=== PATIENT | male | born 1950 | race Caucasian/White ===

== ENCOUNTER → 2016-10-17 | Day surgery (SDC) | payer OTHER ==
[2016-10-10 14:48] VITALS: Ht 175.3 cm; Wt 72.7 kg
[~2016-10-17] VITALS: Ht 175.3 cm; Wt 72.7 kg
[~2016-10-17] MED LIST: ACET-1311 PO; ADVIN25/60 INH; ALBUAER19 INH; ALLO100T PO; ALLO1TAB51 PO; AMLO5TAB2 PO; ASPEC81 PO; ATOR-26 PO; AVD5 PO; AZEL0.15 NAE; BENZ1CAP90 PO; BUPR150T7 PO; CARV6.252 PO; CYCL10TA6 PO; EZET10TA63 PO; FAMO20TA11 PO; FEBU40TA PO; FURO-85 PO; GABA-112 PO; HYDR-4383 PO; HYDR25CA PO; LIDOCAINE HCL 2% 2 ML VIAL (20MG/ML) ONE; LISI-461 PO; NIAC1TAB59 PO; NTRGSL/4 UT; PANT40TA PO; POTA20TA16 PO; PRAS1TAB4 PO; PREG1CAP28 PO; PROPOFOL IV EMULSION 10 MG/ML 20 ML VIAL IV ONE; ROPI0.5T15 PO; ROSU40TA PO; SODIUM CHLORIDE 0.9% 500ML 500 ML IV ONE; SPIR25TA PO; SPRIN/30 INH; TEMA-79 PO; TSSP PO; VNTHFA/IN INH
--- NOTE | 2016-10-17 08:58 | Endo History and Physical ---
History & Physical Date of Service: Oct 17, 2016. 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 No dysphagia, no weight loss. Past Medical History Diabetes, Arthritis, Asthma, Heart Disease, Hypertension, COPD, CVA/TIA, Depression, [place] Past Surgical History Hx Cardiac Surgery: Yes (MULTIPLE HEART CATHS, STENTS X3-4) Hx Internal Defibrillator: No Hx Pacemaker: No Hx Abdominal Surgery: Yes (APPY) Hx of Implantable Prosthesis: No Hx Post-Op Nausea and Vomiting: No Hx Cancer Surgery: No Hx Thoracic Surgery: No Hx Orthopedic: Yes (LOWER BACK SURGERY X2 WITH HARDWARE) Hx Urinary Tract Surgery: No Family History Colon CA Social History Smoking Status: Current Every Day Smoker Hx Substance Use: Yes (SEE MED REC) Hx Alcohol Use: No Allergies Coded Allergies: Codeine (Verified Allergy, Unknown, "SKIN STARTS FALLING OFF", 10/17/16) Current Medications Reported Home Medications Medications Dose Route/Sig Max Daily Dose Days Date Category Flexeril (Cyclobenzaprine Hcl) 10 Mg Tab 10 Mg PO TID PRN 10/10/16 Reported Vistaril (Hydroxyzine Pamoate) 25 Mg Cap 0.5-1 Tab PO TID PRN 10/10/16 Reported Spiriva Handihaler (Tiotropium [place]) 30 Puff/540 Mcg Aerp 1 Cap INH DAILY PRN 10/10/16 Reported Advair Diskus 250/50 60 Dose (Fluticasone Prop/Salmeterol) 1 Ea Aerp 1 Puff INH BID PRN 10/10/16 Reported Crestor (Rosuvastatin Calcium) 40 Mg Tab 40 Mg PO QAM 10/10/16 Reported Klor-Con (Potassium Chloride) 20 Meq Tabcr 20 Meq PO QPM 10/10/16 Reported Lipitor (Atorvastatin Calcium) 80 Mg Tab 80 Mg PO QAM 10/10/16 Reported Tylenol (Acetaminophen) 325 Mg Tab 650 Mg PO Q4H PRN 09/22/15 Reported [place] 10/325 Tab (Acetaminophen/Hydrocodone Bitart) 1 Tab Tab 1 Tab PO Q6H PRN 09/22/15 Reported Effient (Prasugrel Hcl) 5 Mg Tab 10 Mg PO QAM 09/22/15 Reported Protonix (Pantoprazole Sodium) 40 Mg Tab 40 Mg PO QPM 09/22/15 Reported Pepcid (Famotidine) 20 Mg Tab 20 Mg PO BID 09/22/15 Reported Restoril (Temazepam) 15 Mg Cap 30 Mg PO HS PRN 09/22/15 Reported Coreg (Carvedilol) 6.25 Mg Tab 6.25 Mg PO BID 09/22/15 Reported Ventolin Inhaler (Albuterol) Aers 1 Puff INH QID PRN 09/22/15 Reported Requip (Ropinirole HCl) 0.5 Mg Tab 0.5 Mg PO BIDM 09/16/15 Reported Norvasc (Amlodipine Besylate) 5 Mg Tab 5 Mg PO QPM 09/16/15 Reported Zestril (Lisinopril) 10 Mg Tab 10 Mg PO QPM 09/16/15 Reported Allopurinol 100 Mg Tab 100 Mg PO BID 05/09/15 Reported Wellbutrin Sr (Bupropion Hcl) 150 Mg Tab 150 Mg PO BID 05/09/15 Reported Aspirin EC Low Dose (Aspirin) 81 Mg Ectab 81 Mg PO QAM 05/09/15 Reported Astepro (Azelastine Hcl) 0.15 % Spr 2 [place] SILVINO BID 02/01/15 Reported Uloric (Febuxostat) 40 Mg Tab 40 Mg PO QAM 05/26/14 Reported Lyrica (Pregabalin) 75 Mg Cap 150 Mg PO QPM 05/26/14 Reported Lyrica (Pregabalin) 75 Mg Cap 75 Mg PO QAM 05/26/14 Reported Lasix (Furosemide) 20 Mg Tab 20 Mg PO QAM 05/26/14 Reported Avodart (Dutasteride) 0.5 Mg Cap 0.5 Mg PO QAM 05/26/14 Reported Zetia (Ezetimibe) 10 Mg Tab 10 Mg PO QPM 05/26/14 Reported Aldactone (Spironolactone) 25 Mg Tab 25 Mg PO QAM 05/26/14 Reported Neurontin (Gabapentin) 100 Mg Cap 100 Mg PO TID 05/26/14 Reported Benzonatate 100 Mg Cap 200 Mg PO TID PRN 05/26/14 Reported Niaspan Ext Rel (Niacin) 500 Mg Tabcr 500 Mg PO HS 07/14/08 Reported Nitrostat (Nitroglycerin) 0.4 Mg Tab 0.4 Mg UT UD PRN 07/14/08 Reported Vital Signs Weight (Kilograms): 72.73 Height (Feet): 5 Height (Inches): 9 Date Time Temp Pulse Resp B/P Pulse Ox O2 Delivery O2 Flow Rate FiO2 10/17/16 08:38 36.4 62 20 150/97 95 Room Air Physical Exam General Appearance: WD/WN, no apparent distress Respiratory/Chest: Respiratory effort: no dyspnea Auscultation: breath sounds normal, CTA except as noted, no wheezing Cardiovascular: Apical Impulse: not displaced Heart Auscultation: RRR, normal S1, normal S2 Abdomen: Bowel Sounds: normal Inspection & Palpation: soft, non-distended, no tenderness, guarding & rebound Assessment and Plan 66 yo presenting for cedeno's surveillance
--- NOTE | 2016-10-17 09:41 | GI REPORT ---
Procedure Date: 10/17/2016 8:59 AM Procedure: Upper GI endoscopy Indications: Heartburn, Follow-up of reflux esophagitis, Follow-up of Lowe's esophagus Medicines: General Anesthesia Complications: No immediate complications. Estimated blood loss: None. Estimated Blood Loss: Estimated blood loss: none. Procedure: Pre-Anesthesia Assessment: - Pre-Anesthesia Assessment: - Prior to the procedure, a History and Physical was performed, and patient medications, allergies and sensitivities were reviewed. The patient's tolerance of previous anesthesia was reviewed. Please see [facility] for complete details. - The risks and benefits of the procedure and the sedation options and risks were discussed with the patient. All questions were answered and informed consent was obtained. - Patient identification and proposed procedure were verified prior to the procedure by the physician and the nurse. The procedure was verified in the pre-procedure area in the procedure room. After obtaining informed consent, the endoscope was passed carefully and meticuously under direct vision and only advanced when the lumen was clearly identified, C02 insuflation was utilized throughout the entirity of the procedure. Throughout the procedure, the patient's blood pressure, pulse, and oxygen saturations were monitored continuously. After obtaining informed consent, the endoscope was passed under direct vision. Throughout the procedure, the patient's blood pressure, pulse, and oxygen saturations were monitored continuously. The scope was introduced through the mouth, and advanced to the second part of duodenum. The upper GI endoscopy was accomplished without difficulty. The patient tolerated the procedure well. Findings: The Z-line was irregular. Biopsies were taken with a cold forceps for histology. A few localized, 3 mm non-bleeding erosions were found in the gastric antrum. There were no stigmata of recent bleeding. Biopsies were taken with a cold forceps for histology. The examined duodenum was normal. Impression: - Z-line irregular. Biopsied. - Non-bleeding erosive gastropathy. Biopsied. - Normal examined duodenum. Recommendation: - Await pathology results. - Discharge patient to home (with escort). - Continue present medications. - Return to referring physician as previously scheduled. - Repeat the upper endoscopy for surveillance based on pathology results. Marshal Tobar MD 10/17/2016 9:40:37 AM This report has been signed electronically. Note Initiated On: 10/17/2016 8:59 AM I attest to the content of the Intraoperative Record and orders documented therein, exceptions below
--- NOTE | 2016-10-17 09:45 | Discharge Instructions ---
Endoscopy Patient Instructions Date / Procedure(s) Performed Oct 17, 2016. EGD Allergy Information Coded Allergies: Codeine (Verified Allergy, Unknown, "SKIN STARTS FALLING OFF", 10/17/16) Discharge Date / Findings Oct 17, 2016. Mildly irregular junction of the esophagus and stomach this was biopsied Mild inflammation of the stomach-biopsied Medication Instructions Stopped Medication(s): Effient stopped 10/12/16 Lyrica stopped 10/13/16 Aspirin stopped 10/16/16 Provider Instructions Activity Restrictions - No exercising or heavy lifting for 24 hours. - Do not drink alcohol the day of the procedure. - Do not drive a car or operate machinery until the day after the procedure. - Do not make any important decisions or sign important papers in 24 hours after the procedure. Following Day: - Return to full activity which may include returning to work/school. Diet Start your diet with liquids and light foods (jello, soup, juice, toast). Then eat your usual diet if not nauseated. Treatment For Common After Affects For mild abdominal pain, bloating, or excessive gas: - Rest - Eat lightly - Lie on right side Follow-Up Information Follow-up with Mandy as scheduled Anesthesia Information What You Should Know You have had a procedure that required some medicine to reduce anxiety and discomfort. This treatment is called moderate sedation. After receiving the treatment, you may be sleepy, but you will be able to breathe on your own. The effects of the treatment may last for several hours. Follow these instructions along with Activity/Diet recommendations noted above: * Do NOT do anything where dizziness or clumsiness would be dangerous. * Rest quietly at home today, then you can be up and about tomorrow. * Have a responsible person stay with you the rest of today. * You may have had an I.V. today. If so, you may take the dressing off later today. Recommendations Call your doctor if: * Trouble breathing * Continuous vomiting for more than 24 hours * Temperature above 101 degrees * Severe abdominal pain or bloating * Pain not relieved by pain medicine ordered * There is increased drainage or redness from any incision * A large amount of rectal bleeding greater than 2-3 tablespoons. (If you had a polyp/s removed or have hemorrhoids, a small amount of blood - from the rectum is to be expected.) * You have any unanswered questions or concerns. IN THE EVENT OF A SERIOUS EMERGENCY, GO TO THE NEAREST EMERGENCY ROOM Your discharge instructions were prepared by provider Marshal Tobar. Patient Instructions Signature Page Henri Vigil Patient (or Guardian) Signature/Date: I have read and understand the instructions given to me by my caregivers. Caregiver/RN/Doctor Signature/Date: The above-named patient and/or guardian has received patient instructions on this date. + Original Patient Signature Page (only) stays with chart. Please make copy for patient.
--- NOTE | 2016-10-17 09:58 | Anesthesiology Progress Note ---
Anesthesia Post Op Note Date & Time Oct 17, 2016 at 09:57 Vital Signs Pain Intensity: 0 Vital Signs Past 12 Hours Date Time Temp Pulse Resp B/P Pulse Ox O2 Delivery O2 Flow Rate FiO2 10/17/16 09:40 62 16 118/76 97 Room Air 10/17/16 08:38 36.4 62 20 150/97 95 Room Air Notes Mental Status: alert / awake / arousable, participated in evaluation Pt Amnestic to Procedure: Yes Nausea / Vomiting: adequately controlled Pain: adequately controlled Airway Patency, RR, SpO2: stable & adequate BP & HR: stable & adequate Hydration State: stable & adequate Anesthetic Complications: no major complications apparent
[2016-10-17 10:00] VITALS: BP 161/95; PULSE 61; O2SAT 99
== END | disposition home or self-care (01) ==
LOC: C.GI 08:09
PROVIDERS: ATTEND Internal Medicine
DX: K22.70 Barrett's esophagus without dysplasia (principal); K29.70 Gastritis, unspecified, without bleeding; E11.9 Type 2 diabetes mellitus without complications; M19.90 Unspecified osteoarthritis, unspecified site; J45.909 Unspecified asthma, uncomplicated; I11.9 Hypertensive heart disease without heart failure; J44.9 Chronic obstructive pulmonary disease, unspecified; Z86.73 Personal history of transient ischemic attack (TIA), and cerebral infarction without residual deficits; I25.2 Old myocardial infarction; Z95.818 Presence of other cardiac implants and grafts; F17.210 Nicotine dependence, cigarettes, uncomplicated; Z88.5 Allergy status to narcotic agent; K21.9 Gastro-esophageal reflux disease without esophagitis; N40.0 Benign prostatic hyperplasia without lower urinary tract symptoms; M10.9 Gout, unspecified

== ENCOUNTER → 2017-05-25 | Outpatient (CLI) | payer OTHER ==
[~2017-05-25] MED LIST changes: -ALBUAER19 INH; -ALLO1TAB51 PO; +GADAVIST IV PRN; -LIDOCAINE HCL 2% 2 ML VIAL (20MG/ML) ONE; -PROPOFOL IV EMULSION 10 MG/ML 20 ML VIAL IV ONE; -SODIUM CHLORIDE 0.9% 500ML 500 ML IV ONE; -TSSP PO
--- NOTE | 2017-05-25 14:07 | DIAGNOSTIC IMAGING REPORT ---
LUMBAR SPINE MRI WITH AND WITHOUT CONTRAST HISTORY: Low BACK PAIN TECHNIQUE: Multiplanar multisequence MRI of the lumbar spine was performed both before and after the intravenous administration of contrast. COMPARISON: None. FINDINGS: For the purpose of the report the L5-S1 disc space will be located on axial image 27 of 30. Alignment and curvature are intact. No fractures identified. Minimal disc space narrowing at L2-L3 and L3-L4. Posterior decompression fusion at L4-L5 with lateral screws and rods. The conus terminates at the L1 level. There are 3 cysts within the left kidney with the largest measuring 2.7 cm. No abnormal enhancement. Mild marrow heterogeneity may be age-related. Small left paracentral focal disc protrusion at T11-T12 which abuts and slightly deforms the left anterior cord. L1-L2: No significant central canal or neural foraminal narrowing. L2-L3: No significant central canal or neural foraminal narrowing. Tiny broad-based posterior disc bulge. L3-L4: Small broad-based posterior disc bulge resulting in minimal central canal narrowing. There is mild to moderate bilateral neural foraminal narrowing. L4-L5: No significant central canal narrowing due to the posterior decompression. Mild right-sided neural foraminal narrowing. L5-S1: No significant central canal or neural foraminal narrowing. IMPRESSION: 1. Posterior decompression fusion at L4-L5. 2. Small broad-based posterior disc bulge at L3-L4 resulting in minimal central canal narrowing. There is also mild to moderate bilateral neural foraminal narrowing at this level. 3. Small left paracentral focal disc protrusion at T11-T12 which abuts and slightly deforms the anterior cord. Electronically signed by: Miguelangel Owens M.D. 05/25/2017 2:06 PM Dictated Date/Time: 05/25/2017 1:52 PM
== END | disposition home or self-care (01) ==
LOC: C.MRI 12:09
PROVIDERS: ATTEND Internal Medicine
DX: M96.1 Postlaminectomy syndrome, not elsewhere classified (principal); M51.24 Other intervertebral disc displacement, thoracic region; M51.26 Other intervertebral disc displacement, lumbar region; M48.061 Spinal stenosis, lumbar region without neurogenic claudication; Z98.1 Arthrodesis status

== ENCOUNTER → 2018-02-13 | Day surgery (SDC) | payer OTHER ==
[2018-02-06 16:27] VITALS: Ht 175.3 cm; Wt 62.3 kg
[~2018-02-13] VITALS: Ht 175.3 cm; Wt 62.3 kg
[~2018-02-13] MED LIST changes: -ASPEC81 PO; +ASPI-320 PO; -GADAVIST IV PRN; +LIDOCAINE HCL 2% 2 ML VIAL (20MG/ML) ONE; +MIDAZOLAM HCL 1 MG/ML 2ML VIAL ONE; +POTA-639 PO; -POTA20TA16 PO; +PROPOFOL IV EMULSION 10 MG/ML 20 ML VIAL ONE
[2018-02-13 09:25] VITALS: BP 160/90; PULSE 55; TEMP 36.7; O2SAT 99
== END | disposition home or self-care (01) ==
LOC: C.GI 08:26
PROVIDERS: ATTEND Internal Medicine
DX: Z12.11 Encounter for screening for malignant neoplasm of colon (principal); Z53.9 Procedure and treatment not carried out, unspecified reason

== ENCOUNTER → 2018-02-18 | Outpatient (CLI) | payer OTHER ==
[~2018-02-18] MED LIST changes: -LIDOCAINE HCL 2% 2 ML VIAL (20MG/ML) ONE; -MIDAZOLAM HCL 1 MG/ML 2ML VIAL ONE; -PROPOFOL IV EMULSION 10 MG/ML 20 ML VIAL ONE
[2018-02-18 13:52] LABS: ALBUMIN 4.1 gm/dl (3.4-5.0); ALKALINE PHOSPHATASE 92 U/L (45-117); ALT/SGPT 23 U/L (12-78); AST/SGOT 17 U/L (15-37); BLOOD UREA NITROGEN 16 mg/dl (7-18); CALCIUM 8.6 mg/dl (8.5-10.1); CARBON DIOXIDE 26 mmol/L (21-32); CREATININE 1.06 mg/dl (0.60-1.40); GLUCOSE 95 mg/dl (70-99); POTASSIUM 4.2 mmol/L (3.5-5.1); SODIUM 139 mmol/L (136-145); TOTAL PROTEIN 7.1 gm/dl (6.4-8.2)
== END | disposition home or self-care (01) ==
LOC: C.LAB 12:12
PROVIDERS: ATTEND Urology
DX: N28.9 Disorder of kidney and ureter, unspecified (principal)

== ENCOUNTER → 2018-02-22 | Outpatient (CLI) | payer OTHER ==
[~2018-02-22] MED LIST changes: +GADAVIST IV PRN
--- NOTE | 2018-02-22 15:08 | DIAGNOSTIC IMAGING REPORT ---
ABDOMEN COMBO CLINICAL HISTORY: 67 years-old Male presenting with N28.9 Renal lesion, history of left-sided abdominal pain. TECHNIQUE: Multisequence, multiplanar MR imaging of the abdomen was performed before and after the administration of intravenous contrast. IV contrast: 6.5 mL of Gadavist. COMPARISON: None. FINDINGS: Localizer images: Posterior lumbar fusion hardware. Lung bases: Lungs and pleural spaces clear. Normal heart size. No pericardial or pleural effusion. Liver: Normal morphology. No liver lesion. Patent hepatic vasculature. Biliary: No intrahepatic or extrahepatic biliary ductal dilatation. Normal gallbladder. Pancreas: Normal. Spleen: Normal. Adrenal glands: Normal. Kidneys and ureters: Mild left pelvocaliectasis. Nondistention of the left ureter. This may be due to mild left ureteropelvic junction obstruction. Bilateral T2 hyperintense nonenhancing lesions greater in the left kidney, consistent with simple cysts. One of the cysts in the left kidney measuring 2 cm may have a single thin septation (Bosniak 2). T2 hypointense 10 mm lesion in the lateral aspect of the right kidney (series 9 image 15). This lesion may contain minimal heterogeneous T1 hyperintensity. There is no clear macroscopic fat on fat only imaging though there is evidence of indicating artifact on out of phase imaging suggesting minimal macroscopic fat. Bowel: Normal. No bowel obstruction. Peritoneal cavity: No free fluid. Lymph nodes: No enlarged lymph nodes in the abdomen. Vasculature: Aorta and IVC patent and normal in caliber. Abdominal wall: Normal. Musculoskeletal: Normal. IMPRESSION: 1. Bilateral renal lesions which are nonenhancing. The T2 hypointense 10 mm right renal lesion may represent a fat poor angiomyolipoma or proteinaceous cyst. This does not demonstrate convincing evidence of enhancement to suggest a solid neoplasm. Correlate with ultrasound findings of there is clinical concern. Electronically signed by: Malcolm Chan M.D. 02/22/2018 3:07 PM Dictated Date/Time: 02/22/2018 2:55 PM
== END | disposition home or self-care (01) ==
LOC: C.MRI 13:14
PROVIDERS: ATTEND Urology
DX: N28.89 Other specified disorders of kidney and ureter (principal)

== ENCOUNTER 2020-07-27 17:56 | Observation (INO) ==
[2020-07-27] MEDS ORDERED: OPTIRAY 320 125ml IV ONE (18:05)
[2020-07-27 18:17] LABS: Basophils # (auto) 0.03 K/uL (0-0.2); Basophils % (auto) 0.4 %; Eosinophils # (auto) 0.15 K/uL (0-0.5); Eosinophils % (auto) 2.1 %; Hematocrit (blood only) 43.9 % (42-52); Hemoglobin 15.5 g/dL (14.0-18.0); Lymphocytes # (auto) 2.68 K/uL (1.2-3.4); Lymphocytes % (auto) 37.3 %; Mean Corpuscular Hemoglobin 32.5 pg (25-34); Mean Corpuscular Hgb Conc 35.3 g/dL (32-36); Monocytes # (auto) 0.61 K/uL (0.11-0.59); Monocytes % (auto) 8.5 %; Neutrophils # (auto) 3.72 K/uL (1.4-6.5); Neutrophils % (auto) 51.7 %; Platelet Count 223 K/uL (130-400); RDW Coefficient of Variation 13.2 % (11.5-14.5); RDW Standard Deviation 44.3 fL (36.4-46.3); Red Blood Count 4.77 M/uL (4.7-6.1); White Blood Count 7.19 K/uL (4.8-10.8)
--- NOTE | 2020-07-27 18:17 | CT Scan Report ---
CT head/brain wo con CLINICAL HISTORY: Stroke Like Symptoms COMPARISON STUDY: 09/16/2015 TECHNIQUE: Axial CT of the brain is performed from the vertex to the skull base. IV contrast was not administered for this examination. A dose lowering technique was utilized adhering to the principles of ALARA. CT DOSE: FINDINGS: No intra or extra-axial mass lesions are visualized. There is no CT evidence of acute cortical infarc tion. There is no evidence of midline shift. There is no acute hemorrhage. No calvarial fractures ar e visualized. There are patchy white matter hypodensities likely on a small vessel basis. There is no evidence of pathologic ventricular dilatation. There is no evidence of acute sinusitis IMPRESSION: No acute intracranial findings ACT 112: Negative or not required by law. Electronically signed by: Jani Man M.D. 07/27/2020 6:16 PM
--- NOTE | 2020-07-27 18:20 | CT Scan Report ---
CT angio neck with con CLINICAL HISTORY: Stroke Like Symptoms COMPARISON STUDY: No previous studies for comparison. TECHNIQUE: CT angiography was performed from the aortic arch to the skull base. MIP imaging was perfo rmed. The patient was scanned in a dynamic helical fashion during intravenous administration of 119 c c of Optiray 320. A dose lowering technique was utilized adhering to the principles of ALARA. CT DOSE: 1167.90 mGy.cm Technique: CT angiogram of the carotid and vertebral arteries was obtained using intravenous contrast and 3-D reconstruction. NASCET criteria was utilized. Findings: There is severe pulmonary emphysema. The right carotid revealed no evidence of aneurysm and no evidence of dissection. There is no evidenc e of hemodynamic significant stenosis. The left carotid revealed no evidence of hemodynamic significant stenosis. There is no evidence of an eurysm. There is no evidence of dissection. There is no evidence of hemodynamically significant vertebral stenosis. There is no evidence of verte bral dissection. IMPRESSION: No evidence of hemodynamically significant carotid or vertebral artery stenosis. No evidence of disse ction. ACT 112: Negative or not required by law. Electronically signed by: Jani Man M.D. 07/27/2020 6:18 PM
--- NOTE | 2020-07-27 18:21 | Emergency Department Note ---
Impression & Plan TIA (transient ischemic attack), HTN (hypertension), Headache ED Provider Note NAME: CARITO FOLEY AGE: 70 SEX: M : 1950 ARRIVES VIA: Ambulance INFORMANT: Patient ED PROVIDER(S): Pepe Owens DO CHIEF COMPLAINT: slurred speech and headache HPI: Patient is a 70-year-old male who presents to the ER for slurred speech associated with a headache and right arm paresthesias which started when his sister in his arms earlier today. His sister at about 130 this morning. At about 3 AM he started having a headache. Slurred speech was noted by the medics. It did improve on transport in. He has a history of previous NH, CAD, diabetes and several previous strokes. He denies any focal weakness or numbness currently. He admits to a frontal headache. He denies any blood thinners. Denies any chest pain, shortness of breath, nausea, vomiting, or diarrhea. No dysuria, urgency or frequency. He was feeling fine prior to the of his sister. He notes that the headache has nearly resolved at this point. He denies any fevers. No neck stiffness. He did have some pain at the base of his occiput as well. ROS: See above HPI for pertinent positives & negatives. A total of 10 systems reviewed and were otherwise negative. PAST MEDICAL HISTORY:See Below PAST SURGICAL HISTORY:See Below FAMILY HISTORY:See Below SOCIAL HISTORY:See Below HOME MEDICATIONS:See Below ALLERGIES:See Below VITALS:See Below PHYSICAL EXAMINATION: GENERAL: Sitting up in bed, alert, well appearing, well nourished, no distress, non-toxic EYE EXAM: normal conjunctiva. PERRL and EOM's intact. OROPHARYNX: no exudate, no erythema, lips, buccal mucosa, and tongue normal and mucous membranes are moist NECK: supple, no nuchal rigidity, no adenopathy, non-tender LUNGS: Clear to auscultation. Normal chest wall mechanics HEART: no murmurs, S1 normal and S2 normal ABDOMEN: abdomen soft, non-tender, normo-active bowel sounds, no masses, no rebound or guarding. UPPER EXTREMITIES: upper extremities are grossly normal. LOWER EXTREMITIES: No pitting edema. NEURO EXAM: Normal sensorium, cranial nerves II-XII intact, normal speech, no weakness of arms, no weakness of legs. No drift. Finger to nose intact. Gross sensation intact. MEDICAL DECISION MAKING: Patient is a 70-year-old male who presents the ER for slurred speech associated with headache and some right arm paresthesias. He later notes that the right arm paresthesias were fairly consistent with what he normally has. History of previous TIAs and MIs. All the symptoms started shortly after his sister who is extremely close with . IV was established blood work was obtained. Labs show no significant leukocytosis or anemia. INR was unremarkable. BMP with a slightly elevated chloride. Magnesium was slightly high at 2.5. LFTs bilirubin and troponin was negative. Covid was negative. Patient was evaluated on the way to CAT scan. He had no deficit. Upon evaluation in the room his headache had completely abated. He never had any slurred speech during my evaluation. He is completely neurologically intact. He was updated bedside. CT as well as CT angio of the head and neck were negative. Patient has had no fevers. Nothing to suggest meningitis or encephalitis. Did discuss the possibility of a stroke versus subarachnoid hemorrhage. Favor subarachnoid hemorrhage very unlikely as his symptoms do appear to be related after her sister and he believes it is all related to stress. Discussed with patient and he agrees. Will hold with LP. Discussed with hospitalist for further evaluation. Triage Nursing notes reviewed. Limited review of prior medical records performed Vital Signs: reviewed and remarkable for HTN Differential diagnosis: Differential Diagnosis includes but is not limited to headache, tension headache, cluster headache, migraine, subarachnoid hemorrhage, meningitis, mass, central venous thrombus, concussion, trauma and epidural/subdural hemorrhage. ER treatment provided: See below Diagnostics interpreted by me: ECG: Sinus rhythm rate of 71 Normal axis No PVCs Septal Q waves QTC 449 Cardiac Monitoring: An order was placed for continuous cardiac monitoring. The monitor shows a rate of 74 with sinus rhythm. Laboratory studies: As stated above and show below. Imaging studies: CT as well as CT angio of the head and neck as discussed above Consultation(s): Discussed with Dr. Krish Muniz for further evaluation Procedures: none Critical Care: None Past Med/Surg History Medical History (Updated 07/27/20 @ 20:05 by Pepe Owens DO) Asthma Chronic obstructive pulmonary disease GERD (gastroesophageal reflux disease) Hx of gout Hyperlipidemia Hypertension Myocardial Infarction x4--last 2017--follows with Dr. Isauro On anticoagulant therapy effient daily On home oxygen therapy 2L N/C at hs Restless leg syndrome Sleep apnea oxygen--2L N/C Stroke x3--last 2016--memory loss, weakness in right arm Surgical History History of appendectomy History of cardiac cath multiple--last 2016 History of colonoscopy History of cystoscopy History of esophagogastroduodenoscopy (EGD) History of heart artery stent x4--last 2016 History of lumbosacral spine surgery History of right cataract surgery History of tonsillectomy History of tooth extraction all teeth Family History Sister Family history of diabetes mellitus Other No family history of adverse response to anesthesia Social History Smoking Status: Current every day smoker Cigarettes Per Day: 3; Second Hand Exposure: Yes; Hx Alcohol Use: No Hx Substance Use: No Preferred Language: Luxembourgish Communication Ability: Effective Director Dietetics Department Required: No Beliefs That Will Affect Care: None Current Living Situation: Spouse and Family Current Living Situation Comment: lives with and brother in law Feels Safe at Home: Yes Assistive Devices: CPAP, Denture - Upper, Glasses and Oxygen - at Night Allergies Allergies Allergy/AdvReac Type Severity Reaction Status Date / Time codeine Allergy Mild "SKIN Verified 07/27/20 19:54 STARTS FALLING OFF" Home Meds Home Medications Medication Instructions Recorded Confirmed Spiriva with HandiHaler 1 cap INHALATION QPM 01/13/19 07/27/20 albuterol sulfate 2.5 mg INHALATION Q4 PRN 01/13/19 07/29/19 albuterol sulfate [ProAir HFA] 2 puff INHALATION QID PRN 01/13/19 07/27/20 allopurinol 100 mg PO BID 01/13/19 07/29/19 amlodipine 10 mg PO QAM 01/13/19 07/27/20 aspirin 81 mg PO QAM 01/13/19 07/29/19 azelastine 2 spray INTRANASAL BID 01/13/19 07/27/20 bupropion HCl 150 mg PO BID 01/13/19 07/27/20 carvedilol 6.25 mg PO BID 01/13/19 07/29/19 cyclobenzaprine 10 mg PO TID PRN 01/13/19 07/29/19 dutasteride 0.5 mg PO QAM 01/13/19 07/27/20 ezetimibe 10 mg PO QAM 01/13/19 07/27/20 febuxostat 40 mg PO QAM 01/13/19 07/27/20 fluticasone propion-salmeterol 1 inh INHALATION BID 01/13/19 07/27/20 [Advair Diskus] furosemide 20 mg PO DAILY PRN 01/13/19 07/27/20 gabapentin 100 mg PO TID 01/13/19 07/29/19 hydrocodone-acetaminophen 1 tab PO Q12H PRN 01/13/19 07/29/19 hydroxyzine HCl 12.5 - 25 mg PO Q6 PRN 01/13/19 07/29/19 nitroglycerin 0.4 mg SUBLINGUAL UD PRN 01/13/19 07/27/20 omeprazole 20 mg PO BID 01/13/19 07/27/20 potassium chloride 20 meq PO QAM 01/13/19 07/27/20 prasugrel [Effient] 10 mg PO QAM 01/13/19 07/27/20 pregabalin 75 mg PO QAM 01/13/19 07/27/20 pregabalin 150 mg PO QPM 01/13/19 07/27/20 ropinirole 0.5 mg PO TID 01/13/19 07/27/20 rosuvastatin 40 mg PO QAM 01/13/19 07/27/20 temazepam [Restoril] 30 mg PO HS PRN 01/13/19 07/29/19 cetirizine 10 mg PO QPM 06/23/19 07/27/20 isosorbide mononitrate 60 mg PO QAM 06/23/19 07/27/20 lisinopril 40 mg PO QPM 06/23/19 07/27/20 prednisone 5 mg PO QPM 06/23/19 07/29/19 acetaminophen [Tylenol] 325 mg PO Q6H PRN 06/30/19 07/29/19 buspirone 5 mg PO BID 07/27/20 07/27/20 spironolactone 12.5 mg PO DAILY 07/27/20 07/27/20 Previous Rx's Medication Instructions Recorded ondansetron HCl [Zofran] 4 mg PO Q6H PRN #6 tab 06/30/19 Results & Data (ED) Vital Signs Vital Signs - 24 hr 07/27/20 18:19 Temperature 36.9 C Temperature Source Oral Pulse Rate 68 Respiratory Rate 18 Respiratory Depth Normal Blood Pressure 164/105 H Blood Pressure Mean 124 Pulse Oximetry 96 Oxygen Delivery Method Room Air Sepsis Recent Fever Within 48 Hours No Sepsis New/Unexplained Change in Mental Status No Sepsis Action Taken by Nursing No Action Required Laboratory Data Result diagrams: 07/27/20 17:51 07/27/20 17:51 Lab Results 07/27/20 07/27/20 07/27/20 Range/Units 17:51 17:51 17:51 WBC 7.19 (4.8-10.8) K/uL RBC 4.77 (4.7-6.1) M/uL Hgb 15.5 (14.0-18.0) g/dL Hct 43.9 (42-52) % MCV 92.0 (80-100) fL MCH 32.5 (25-34) pg MCHC 35.3 (32-36) g/dL RDW Std Deviation 44.3 (36.4-46.3) fL RDW Coeff of Lakesha 13.2 (11.5-14.5) % Plt Count 223 (130-400) K/uL MPV 11.0 H (7.4-10.4) fL Immature Gran % (Auto) 0.0 % Neut % (Auto) 51.7 % Lymph % (Auto) 37.3 % [place] % (Auto) 8.5 % Eos % (Auto) 2.1 % Baso % (Auto) 0.4 % Neut # (Auto) 3.72 (1.4-6.5) K/uL Lymph # (Auto) 2.68 (1.2-3.4) K/uL [place] # (Auto) 0.61 H (0.11-0.59) K/uL Eos # (Auto) 0.15 (0-0.5) K/uL Baso # (Auto) 0.03 (0-0.2) K/uL Immature Gran # (Auto) 0.00 (0.00-0.02) K/uL PT 9.8 (9.0-12.0) Seconds INR 0.9 (0.9-1.1) APTT 29.3 (21.0-31.0) Seconds PTT Ratio 1.1 Sodium 142 (136-145) mmol/L Potassium 4.0 (3.5-5.1) mmol/L Chloride 111 H (98-107) mmol/L Carbon Dioxide 29 (21-32) mmol/L Anion Gap 2.0 L (3-11) BUN 13 (7-18) mg/dl Creatinine 1.11 (0.6-1.4) mg/dl Est Cr Clr Drug Dosing 61.9 ml/min Est GFR ( Amer) 77.6 Est GFR (Non-Af Amer) 66.9 BUN/Creatinine Ratio 11.9 (10-20) Glucose 119 H (70-99) mg/dl POC Glucose (70-99) mg/dl Calcium 8.4 L (8.5-10.1) mg/dl Magnesium 2.5 H (1.8-2.4) mg/dl Total Bilirubin 0.4 (0.2-1) mg/dl AST 14 L (15-37) U/L ALT 19 (12-78) U/L Alkaline Phosphatase 96 (45-117) U/L Troponin I < 0.015 (0-0.045) ng/ml Total Protein 7.2 (6.4-8.2) gm/dl Albumin 3.9 (3.4-5.0) gm/dl Globulin 3.3 (2.5-4.0) gm/dl Albumin/Globulin Ratio 1.2 (0.9-2) COVID-19 Eval Order SARS-CoV-2, RNA, NAAT (NEGATIVE) Blood Type Antibody Screen 07/27/20 07/27/20 07/27/20 Range/Units 18:15 18:21 18:40 WBC (4.8-10.8) K/uL RBC (4.7-6.1) M/uL Hgb (14.0-18.0) g/dL Hct (42-52) % MCV (80-100) fL MCH (25-34) pg MCHC (32-36) g/dL RDW Std Deviation (36.4-46.3) fL RDW Coeff of Lakesha (11.5-14.5) % Plt Count (130-400) K/uL MPV (7.4-10.4) fL Immature Gran % (Auto) % Neut % (Auto) % Lymph % (Auto) % [place] % (Auto) % Eos % (Auto) % Baso % (Auto) % Neut # (Auto) (1.4-6.5) K/uL Lymph # (Auto) (1.2-3.4) K/uL [place] # (Auto) (0.11-0.59) K/uL Eos # (Auto) (0-0.5) K/uL Baso # (Auto) (0-0.2) K/uL Immature Gran # (Auto) (0.00-0.02) K/uL PT (9.0-12.0) Seconds INR (0.9-1.1) APTT (21.0-31.0) Seconds PTT Ratio Sodium (136-145) mmol/L Potassium (3.5-5.1) mmol/L Chloride (98-107) mmol/L Carbon Dioxide (21-32) mmol/L Anion Gap (3-11) BUN (7-18) mg/dl Creatinine (0.6-1.4) mg/dl Est Cr Clr Drug Dosing ml/min Est GFR ( Amer) Est GFR (Non-Af Amer) BUN/Creatinine Ratio (10-20) Glucose (70-99) mg/dl POC Glucose 95 (70-99) mg/dl Calcium (8.5-10.1) mg/dl Magnesium (1.8-2.4) mg/dl Total Bilirubin (0.2-1) mg/dl AST (15-37) U/L ALT (12-78) U/L Alkaline Phosphatase (45-117) U/L Troponin I (0-0.045) ng/ml Total Protein (6.4-8.2) gm/dl Albumin (3.4-5.0) gm/dl Globulin (2.5-4.0) gm/dl Albumin/Globulin Ratio (0.9-2) COVID-19 Eval Order Covid19 [facility] SARS-CoV-2, RNA, NAAT (NEGATIVE) Blood Type O Negative Antibody Screen NEGATIVE 07/27/20 Range/Units 18:40 WBC (4.8-10.8) K/uL RBC (4.7-6.1) M/uL Hgb (14.0-18.0) g/dL Hct (42-52) % MCV (80-100) fL MCH (25-34) pg MCHC (32-36) g/dL RDW Std Deviation (36.4-46.3) fL RDW Coeff of Lakesha (11.5-14.5) % Plt Count (130-400) K/uL MPV (7.4-10.4) fL Immature Gran % (Auto) % Neut % (Auto) % Lymph % (Auto) % [place] % (Auto) % Eos % (Auto) % Baso % (Auto) % Neut # (Auto) (1.4-6.5) K/uL Lymph # (Auto) (1.2-3.4) K/uL [place] # (Auto) (0.11-0.59) K/uL Eos # (Auto) (0-0.5) K/uL Baso # (Auto) (0-0.2) K/uL Immature Gran # (Auto) (0.00-0.02) K/uL PT (9.0-12.0) Seconds INR (0.9-1.1) APTT (21.0-31.0) Seconds PTT Ratio Sodium (136-145) mmol/L Potassium (3.5-5.1) mmol/L Chloride (98-107) mmol/L Carbon Dioxide (21-32) mmol/L Anion Gap (3-11) BUN (7-18) mg/dl Creatinine (0.6-1.4) mg/dl Est Cr Clr Drug Dosing ml/min Est GFR ( Amer) Est GFR (Non-Af Amer) BUN/Creatinine Ratio (10-20) Glucose (70-99) mg/dl POC Glucose (70-99) mg/dl Calcium (8.5-10.1) mg/dl Magnesium (1.8-2.4) mg/dl Total Bilirubin (0.2-1) mg/dl AST (15-37) U/L ALT (12-78) U/L Alkaline Phosphatase (45-117) U/L Troponin I (0-0.045) ng/ml Total Protein (6.4-8.2) gm/dl Albumin (3.4-5.0) gm/dl Globulin (2.5-4.0) gm/dl Albumin/Globulin Ratio (0.9-2) COVID-19 Eval Order SARS-CoV-2, RNA, NAAT NEGATIVE (NEGATIVE) Blood Type Antibody Screen Administered Medications Discontinued Medications Ioversol (Optiray 320 125ml) 119 ml IV ONCE ONE Stop: 07/27/20 18:06 Last Admin: 07/27/20 18:05 Dose: 119 ml Documented by: [id number] Discharge Plan Visit Data Chief Complaint: Stroke Alert Stated Complaint: STROKE ALERT ED Provider: Pepe Owens Discharge Problem: TIA (transient ischemic attack), HTN (hypertension), Headache Forms Stand Alone Forms: [facility] [employer] Prescriptions Prescriptions: No Action cyclobenzaprine 10 mg Tablet 10 mg PO TID PRN (Reason: Muscle Spasm) RF: 0 bupropion HCl 150 mg Tablet Sustained-Release 12 Hr 150 mg PO BID RF: 0 carvedilol 6.25 mg Tablet 6.25 mg PO BID RF: 0 albuterol sulfate 2.5 mg /3 mL (0.083 %) Solution For Nebulization 2.5 mg INHALATION Q4 PRN (Reason: Wheezing) RF: 0 allopurinol 100 mg Tablet 100 mg PO BID RF: 0 hydrocodone-acetaminophen 10-325 mg Tablet 1 tab PO Q12H PRN (Reason: Pain) RF: 0 aspirin 81 mg Tablet,Delayed Release (Dr/Ec) 81 mg PO QAM RF: 0 temazepam [Restoril] 30 mg Capsule 30 mg PO HS PRN (Reason: Sleep) RF: 0 amlodipine 10 mg Tablet 10 mg PO QAM RF: 0 ropinirole 0.5 mg Tablet 0.5 mg PO TID RF: 0 fluticasone propion-salmeterol [Advair Diskus] 500-50 mcg/dose Blister With Device 1 inh INHALATION BID RF: 0 nitroglycerin 0.4 mg Tablet, Sublingual 0.4 mg sublingual UD PRN (Reason: Angina) RF: 0 hydroxyzine HCl 25 mg Tablet 12.5 - 25 mg PO Q6 PRN (Reason: Itching) RF: 0 furosemide 20 mg Tablet 20 mg PO DAILY PRN (Reason: Edema) RF: 0 gabapentin 100 mg Capsule 100 mg PO TID RF: 0 azelastine 137 mcg (0.1 %) Aerosol,[place] 2 spray INTRANASAL BID RF: 0 albuterol sulfate [ProAir HFA] 90 mcg/actuation Hfa Aerosol Inhaler 2 puff INHALATION QID PRN (Reason: Shortness Of Breath) RF: 0 ezetimibe 10 mg Tablet 10 mg PO QAM RF: 0 dutasteride 0.5 mg Capsule 0.5 mg PO QAM RF: 0 rosuvastatin 40 mg Tablet 40 mg PO QAM RF: 0 Spiriva with HandiHaler 18 mcg Capsule, W/Inhalation Device 1 cap INHALATION QPM RF: 0 pregabalin 75 mg Capsule 75 mg PO QAM RF: 0 pregabalin 75 mg Capsule 150 mg PO QPM RF: 0 omeprazole 20 mg Tablet,Delayed Release (Dr/Ec) 20 mg PO BID RF: 0 febuxostat 40 mg Tablet 40 mg PO QAM RF: 0 prasugrel [Effient] 10 mg Tablet 10 mg PO QAM RF: 0 potassium chloride 20 mEq Tablet Extended Release 20 meq PO QAM RF: 0 cetirizine 10 mg Tablet 10 mg PO QPM RF: 0 prednisone 5 mg Tablet 5 mg PO QPM RF: 0 isosorbide mononitrate 60 mg Tablet Extended Release 24 Hr 60 mg PO QAM RF: 0 lisinopril 40 mg Tablet 40 mg PO QPM RF: 0 acetaminophen [Tylenol] 325 mg Tablet 325 mg PO Q6H PRN (Reason: Pain) RF: 0 ondansetron HCl [Zofran] 4 mg tablet 4 mg PO Q6H PRN (Reason: nausea and vomiting) Qty: 6 RF: 0 buspirone 5 mg tablet 5 mg PO BID RF: 0 spironolactone 25 mg tablet 12.5 mg PO DAILY RF: 0 Discharge Problem: HTN (hypertension) Qualifiers: Hypertension type: unspecified Qualified Code(s): I10 - Essential (primary) hypertension Headache Qualifiers: Headache type: unspecified Headache chronicity pattern: unspecified pattern Intractability: not intractable Qualified Code(s): R51.9 - Headache, unspecified
--- NOTE | 2020-07-27 18:23 | CT Scan Report ---
CT angio head w con CLINICAL HISTORY: Stroke Like Symptoms TECHNIQUE: CT angiography of the head was performed in a dynamic helical fashion during intravenous a dministration of 119 cc of Optiray 320. MIP imaging was performed. A dose lowering technique was util ized adhering to the principles of ALARA. CT DOSE: COMPARISON STUDY: No previous studies for comparison. FINDINGS: There are no lesion suspicious for aneurysm. There are no major intracranial branch occlusi ons. The dural venous sinuses appear patent. IMPRESSION: No significant abnormalities identified. ACT 112: Negative or not required by law. Electronically signed by: Jani Man M.D. 07/27/2020 6:22 PM
[2020-07-27 18:27] LABS: INR 0.9 (0.9-1.1); Partial Thromboplastin Ratio 1.1; Partial Thromboplastin Time 29.3 Seconds (21.0-31.0); Prothrombin Time 9.8 Seconds (9.0-12.0)
[2020-07-27 18:33] LABS: Alanine Aminotransferase 19 U/L (12-78); Albumin Level 3.9 gm/dl (3.4-5.0); Aspartate Aminotransferase 14 U/L (15-37); BUN Creatinine Ratio 11.9 (10-20); Blood Urea Nitrogen 13 mg/dl (7-18); Calcium 8.4 mg/dl (8.5-10.1); Carbon Dioxide 29 mmol/L (21-32); Chloride 111 mmol/L (98-107); Creatinine Clr Calc Pharmacy 61.9 ml/min; Est GFR (African American) 77.6; Est GFR (Non-African American) 66.9; Glucose 119 mg/dl (70-99); Magnesium 2.5 mg/dl (1.8-2.4); Sodium 142 mmol/L (136-145)
[2020-07-27 18:38] LABS: Albumin Globulin Ratio 1.2 (0.9-2); Alkaline Phosphatase 96 U/L (45-117); Bilirubin,Total 0.4 mg/dl (0.2-1); Globulin 3.3 gm/dl (2.5-4.0); Total Protein 7.2 gm/dl (6.4-8.2); Troponin I < 0.015 ng/ml (0-0.045)
[2020-07-27] MEDS ORDERED: ASPIRIN 81 MG CHEW PO STA (19:59)
--- NOTE | 2020-07-27 19:59 | History & Physical Report ---
Date of Service July 27, 2020 Assessment & Plan (1) TIA (transient ischemic attack): hx CVA as per records possibly related to missed doses antiplatelet Rx/cardiac medications Hypertension, elevated secondary to above chronic systolic heart failure (EF 45 to 49%, TTE 2017), patient euvolemic CAD status post stent hyperlipidemia on statin Rx COPD, lung status at baseline right renal mass, patient follows with [facility] Cognitive issues as per records, patient mentating well, prior outpatient neurology eval 2018 Hyperglycemia rule out DM ongoing tobacco abuse OBS Medical telemetry Neurochecks Facilitate antiplatelet Rx for secondary stroke prevention MRI brain, Neurology consult RE TIA Permissive hypertension until acute stroke ruled out Check hemoglobin A1c Nicotine replacement therapy as needed DVT prophylaxis per Lovenox subcu Full code Text document was generated using [employer] voice recognition software. It may contain grammatical or spelling errors. Kindly contact undersigned for clarification of any documentation item in question. History of Present Illness Chief Complaint: Slurred speech, tingling right arm, headache Primary Care Provider: Leon Galvan, History obtained from patient and records. Medical history significant for chronic systolic heart failure (EF 45 to 49%, TTE 2017), CAD status post stent, CVA, hypertension, hyperlipidemia, COPD, right renal mass, BPH, RLS, cognitive issues as per records, anxiety disorder, ongoing tobacco abuse. Last confinement 2015 for chest pain, right-sided numbness symptoms. ACS ruled out. No acute stroke on imaging. This afternoon, patient noted slurred speech, achy headache along with tingling right arm sensation. No chest pain, no S OB. Patient unable to take home medications the last 4 days as he had not been home. Patient wanted to be with his ailing sister and her last moments as per patient. Patient sister last night. Although depressed, patient denies suicidality. Symptoms resolved by the time patient arrived at the ER. Medical History as above Right renal mass since 2018 hypovascular neoplastic process versus enlarging hemorrhagic cyst as per outpatient [facility] note last year Surgical History : Cystoscopy, TURP, eyelid surgery, back surgery Family History : Kidney cancer, heart disease, colon cancer Personal/Social history : 3 cigarettes a day, no EtOH intake, retired from [employer] work Allergies Allergy/AdvReac Type Severity Reaction Status Date / Time codeine Allergy Mild "SKIN Verified 07/27/20 19:54 STARTS FALLING OFF" Home Medications Medication Instructions Recorded Confirmed Type Spiriva with HandiHaler 1 cap INHALATION QPM 01/13/19 07/27/20 History albuterol sulfate 2.5 mg INHALATION Q4 PRN 01/13/19 07/27/20 History albuterol sulfate [ProAir HFA] 2 puff INHALATION QID PRN 01/13/19 07/27/20 History amlodipine 10 mg PO QAM 01/13/19 07/27/20 History aspirin 81 mg PO QAM 01/13/19 07/27/20 History azelastine 2 spray INTRANASAL BID 01/13/19 07/27/20 History bupropion HCl 150 mg PO BID 01/13/19 07/27/20 History carvedilol 6.25 mg PO BID 01/13/19 07/27/20 History cyclobenzaprine 10 mg PO TID PRN 01/13/19 07/27/20 History dutasteride 0.5 mg PO QAM 01/13/19 07/27/20 History ezetimibe 10 mg PO QAM 01/13/19 07/27/20 History febuxostat 40 mg PO QAM 01/13/19 07/27/20 History fluticasone propion-salmeterol 1 inh INHALATION BID 01/13/19 07/27/20 History [Advair Diskus] furosemide 20 mg PO DAILY PRN 01/13/19 07/27/20 History hydroxyzine HCl 12.5 - 25 mg PO Q6 PRN 01/13/19 07/27/20 History nitroglycerin 0.4 mg SUBLINGUAL UD PRN 01/13/19 07/27/20 History omeprazole 20 mg PO BID 01/13/19 07/27/20 History potassium chloride 20 meq PO QAM 01/13/19 07/27/20 History prasugrel [Effient] 10 mg PO QAM 01/13/19 07/27/20 History pregabalin 75 mg PO QAM 01/13/19 07/27/20 History pregabalin 150 mg PO QPM 01/13/19 07/27/20 History ropinirole 0.5 mg PO TID 01/13/19 07/27/20 History rosuvastatin 40 mg PO QAM 01/13/19 07/27/20 History cetirizine 10 mg PO QPM 06/23/19 07/27/20 History isosorbide mononitrate 60 mg PO QAM 06/23/19 07/27/20 History lisinopril 40 mg PO QPM 06/23/19 07/27/20 History acetaminophen [Tylenol] 325 mg PO Q6H PRN 06/30/19 07/27/20 History buspirone 5 mg PO BID 07/27/20 07/27/20 History spironolactone 12.5 mg PO DAILY 07/27/20 07/27/20 History Past Med/Surg History Medical History (Updated 07/27/20 @ 20:05 by Pepe Owens DO) Asthma Chronic obstructive pulmonary disease GERD (gastroesophageal reflux disease) Hx of gout Hyperlipidemia Hypertension Myocardial Infarction x4--last 2016--follows with Dr. Box On anticoagulant therapy effient daily On home oxygen therapy 2L N/C at hs Restless leg syndrome Sleep apnea oxygen--2L N/C Stroke x3--last 2016--memory loss, weakness in right arm Surgical History History of appendectomy History of cardiac cath multiple--last 2016 History of colonoscopy History of cystoscopy History of esophagogastroduodenoscopy (EGD) History of heart artery stent x4--last 2016 History of lumbosacral spine surgery History of right cataract surgery History of tonsillectomy History of tooth extraction all teeth Family History Sister Family history of diabetes mellitus Other No family history of adverse response to anesthesia Social History Smoking Status: Current every day smoker Cigarettes Per Day: 3; Second Hand Exposure: Yes; Hx Alcohol Use: No Hx Substance Use: No Preferred Language: Palauan Communication Ability: Effective Client Analyst Required: No Beliefs That Will Affect Care: None Current Living Situation: Spouse and Family Current Living Situation Comment: lives with and brother in law Feels Safe at Home: Yes Assistive Devices: CPAP, Denture - Upper, Glasses and Oxygen - at Night Review of Systems Review of Systems: As per HPI, all 10 systems reviewed, all other ROS negative Physical Exam Physical Exam: GENERAL: Comfortable, occasionally teary-eyed, no respiratory distress SKIN: Normal color, warm HEENT: Optima palpebral conjunctivae, no ptosis, moist buccal mucosa, edentulous NECK : Supple, no tenderness CHEST : Decreased breath sounds , no tenderness HEART : RRR, no obvious murmurs ABDOMEN: Some distention, nontender EXTREMITIES : No LE swelling/tenderness, no other conspicuous deformities noted NEUROLOGIC : Coherent, no facial asymmetry, no other gross focality Results & Data Results & Data ([facility]) Vital Signs (Past 12 Hours) Vital Signs Temp Pulse Resp BP Pulse Ox 07/27/20 18:19 36.9 C 68 18 164/105 H 96 Laboratory Results Laboratory Results WBC 7.19 K/uL (4.8-10.8) 07/27/20 17:51 RBC 4.77 M/uL (4.7-6.1) 07/27/20 17:51 Hgb 15.5 g/dL (14.0-18.0) 07/27/20 17:51 Hct 43.9 % (42-52) 07/27/20 17:51 MCV 92.0 fL (80-100) 07/27/20 17:51 MCH 32.5 pg (25-34) 07/27/20 17:51 MCHC 35.3 g/dL (32-36) 07/27/20 17:51 RDW Std Deviation 44.3 fL (36.4-46.3) 07/27/20 17:51 RDW Coeff of Lakesha 13.2 % (11.5-14.5) 07/27/20 17:51 Plt Count 223 K/uL (130-400) 07/27/20 17:51 MPV 11.0 fL (7.4-10.4) H 07/27/20 17:51 Immature Gran % (Auto) 0.0 % 07/27/20 17:51 Neut % (Auto) 51.7 % 07/27/20 17:51 Lymph % (Auto) 37.3 % 07/27/20 17:51 Knox % (Auto) 8.5 % 07/27/20 17:51 Eos % (Auto) 2.1 % 07/27/20 17:51 Baso % (Auto) 0.4 % 07/27/20 17:51 Neut # (Auto) 3.72 K/uL (1.4-6.5) 07/27/20 17:51 Lymph # (Auto) 2.68 K/uL (1.2-3.4) 07/27/20 17:51 Knox # (Auto) 0.61 K/uL (0.11-0.59) H 07/27/20 17:51 Eos # (Auto) 0.15 K/uL (0-0.5) 07/27/20 17:51 Baso # (Auto) 0.03 K/uL (0-0.2) 07/27/20 17:51 Immature Gran # (Auto) 0.00 K/uL (0.00-0.02) 07/27/20 17:51 PT 9.8 Seconds (9.0-12.0) 07/27/20 17:51 INR 0.9 (0.9-1.1) 07/27/20 17:51 APTT 29.3 Seconds (21.0-31.0) 07/27/20 17:51 PTT Ratio 1.1 07/27/20 17:51 Sodium 142 mmol/L (136-145) 07/27/20 17:51 Potassium 4.0 mmol/L (3.5-5.1) 07/27/20 17:51 Chloride 111 mmol/L (98-107) H 07/27/20 17:51 Carbon Dioxide 29 mmol/L (21-32) 07/27/20 17:51 Anion Gap 2.0 (3-11) L 07/27/20 17:51 BUN 13 mg/dl (7-18) 07/27/20 17:51 Creatinine 1.11 mg/dl (0.6-1.4) 07/27/20 17:51 Est Cr Clr Drug Dosing 61.9 ml/min 07/27/20 17:51 Est GFR ( Amer) 77.6 07/27/20 17:51 Est GFR (Non-Af Amer) 66.9 07/27/20 17:51 BUN/Creatinine Ratio 11.9 (10-20) 07/27/20 17:51 Glucose 119 mg/dl (70-99) H 07/27/20 17:51 POC Glucose 95 mg/dl (70-99) 07/27/20 18:21 Calcium 8.4 mg/dl (8.5-10.1) L 07/27/20 17:51 Magnesium 2.5 mg/dl (1.8-2.4) H 07/27/20 17:51 Total Bilirubin 0.4 mg/dl (0.2-1) 07/27/20 17:51 AST 14 U/L (15-37) L 07/27/20 17:51 ALT 19 U/L (12-78) 07/27/20 17:51 Alkaline Phosphatase 96 U/L (45-117) 07/27/20 17:51 Troponin I < 0.015 ng/ml (0-0.045) 07/27/20 17:51 Total Protein 7.2 gm/dl (6.4-8.2) 07/27/20 17:51 Albumin 3.9 gm/dl (3.4-5.0) 07/27/20 17:51 Globulin 3.3 gm/dl (2.5-4.0) 07/27/20 17:51 Albumin/Globulin Ratio 1.2 (0.9-2) 07/27/20 17:51 COVID-19 Eval Order Covid19 [facility] 07/27/20 18:40 SARS-CoV-2, RNA, NAAT NEGATIVE (NEGATIVE) 07/27/20 18:40 Blood Type O Negative 07/27/20 18:15 Antibody Screen NEGATIVE 07/27/20 18:[address] head: No acute intracranial findings CT angio head: No significant abnormalities identified. CT angio neck: No evidence of hemodynamically significant carotid or vertebral artery stenosis. No evidence of dissection. EKG as per my interpretation: Rate 70, NSR, normal axis, T wave abnormalities septal leads
[2020-07-27] MEDS ORDERED: UMECLIDINIUM BROMIDE 62.5MCG/BLISTER 7 PUFFS/INHALER INH SCH (21:12)
[2020-07-27] MEDS ORDERED: carvediloL 3.125 MG TAB PO SCH (21:12)
[2020-07-27] MEDS ORDERED: CYCLOBENZAPRINE HCL 10 MG TAB PO PRN (21:12)
[2020-07-27] MEDS ORDERED: SODIUM CHLORIDE 0.9% 500 ML IV ONE (21:12)
[2020-07-27] MEDS ORDERED: ACETAMINOPHEN 325 MG TAB PO PRN (21:12)
[2020-07-27] MEDS ORDERED: PROMETHAZINE HCL 6.25 MG in SODIUM CHLORIDE 0.9% 50 ML IV PRN (21:12)
[2020-07-27] MEDS ORDERED: MELATONIN 3 MG TAB PO PRN (21:12)
[2020-07-27] MEDS ORDERED: traMADol HCL 50 MG TABLET PO PRN (21:12)
[2020-07-27] MEDS ORDERED: CETIRIZINE HCL 10 MG TABLET PO SCH (21:12)
[2020-07-27] MEDS ORDERED: PREGABALIN 150 MG CAP PO SCH (21:12)
[2020-07-27] MEDS ORDERED: LORazepam 0.25 MG/0.5 ML VIAL IV PRN (21:29)
[2020-07-27] MEDS ORDERED: ALBUT/IPRATROP 3MG/0.5MG NEB 3 ML VIAL NEB PRN (21:34)
[2020-07-27] MEDS: rOPINIRole HCL 0.25 MG TABLET PO SCH (22:31)
[2020-07-27] MEDS: PANTOprazole 40 MG TAB PO SCH (22:32)
[2020-07-27] MEDS: busPIRone 5 MG TAB PO SCH (22:32)
[2020-07-27] MEDS: buPROPion SR 150 MG TABCR PO SCH (22:32)
[2020-07-27] MEDS: PRASugrel TAB 10 MG TAB PO SCH (22:33)
[2020-07-28] MEDS ORDERED: AVODART: ORDER AWAITING ACTION SCH
[2020-07-28] MEDS: AZELASTINE: ORDER AWAITING ACTION SCH ×2 (00:04→07:48)
[2020-07-28] MEDS ORDERED: SODIUM CHLORIDE 0.9% 500 ML IV ONE (05:54)
[2020-07-28 06:13] LABS: Estimated Average Glucose 126 mg/dl
[2020-07-28 06:17] LABS: Basophils # (auto) 0.03 K/uL (0-0.2); Basophils % (auto) 0.5 %; Eosinophils # (auto) 0.16 K/uL (0-0.5); Eosinophils % (auto) 2.7 %; Hematocrit (blood only) 40.1 % (42-52); Hemoglobin 13.4 g/dL (14.0-18.0); Immature Granulocytes # (auto) 0.01 K/uL (0.00-0.02); Immature Granulocytes % (auto) 0.2 %; Lymphocytes # (auto) 2.12 K/uL (1.2-3.4); Lymphocytes % (auto) 35.6 %; Mean Corpuscular Hemoglobin 31.2 pg (25-34); Mean Corpuscular Hgb Conc 33.4 g/dL (32-36); Mean Corpuscular Volume 93.5 fL (80-100); Mean Platelet Volume 10.9 fL (7.4-10.4); Monocytes # (auto) 0.62 K/uL (0.11-0.59); Monocytes % (auto) 10.4 %; Neutrophils # (auto) 3.02 K/uL (1.4-6.5); Neutrophils % (auto) 50.6 %; Platelet Count 186 K/uL (130-400); RDW Coefficient of Variation 13.4 % (11.5-14.5); RDW Standard Deviation 45.7 fL (36.4-46.3); Red Blood Count 4.29 M/uL (4.7-6.1); White Blood Count 5.96 K/uL (4.8-10.8)
[2020-07-28 06:37] LABS: BUN Creatinine Ratio 14.4 (10-20); Calcium 8.2 mg/dl (8.5-10.1); Creatinine Clr Calc Pharmacy 60.8 ml/min; Est GFR (African American) 75.9; Est GFR (Non-African American) 65.5; Potassium 4.2 mmol/L (3.5-5.1)
--- NOTE | 2020-07-28 07:20 | Magnetic Resonance Report ---
MRI OF THE BRAIN WITHOUT IV CONTRAST CLINICAL HISTORY: Transient ischemic attack. COMPARISON STUDY: CT of the brain dated 07/27/2020. TECHNIQUE: MRI of the brain was performed utilizing various T1 and T2-weighted sequences in the axial , sagittal, and coronal planes. IV contrast was not administered for this examination. FINDINGS: Brain parenchyma: There is age-related involutional change noting mild to moderate patchy subcortical and periventricular microangiopathic disease. There is no hemorrhage or mass effect. There is no res tricted diffusion to suggest acute ischemia. Webb-white matter differentiation is preserved. No extra -axial fluid collection is seen. The cerebellar tonsils are normal in configuration. Ventricles, sulci, and cisterns: Prominent secondary to involutional change. Pituitary and sella: Partially empty sella is incidentally noted. Intracranial vasculature: Normal flow voids are maintained at the skull base. Orbits: The bony orbits are grossly intact. Orbital contents are normal in appearance noting bilatera l ocular lens implants. Sinuses and mastoids: There is a right mastoid effusion. The left mastoid air cells and the paranasal sinuses are clear. Calvarium: Unremarkable. Cervical cord: Partially visualized cervical spinal cord is normal in morphology and signal intensity . IMPRESSION: No acute intracranial abnormality. ACT 112: Negative or not required by law. Electronically signed by: Pavel Nava M.D. 07/28/2020 7:18 AM
[2020-07-28] MEDS ORDERED: PERFLUTREN LIPID MICROSPHERE (DEFINITY) IV ONE (07:43)
--- NOTE | 2020-07-28 08:35 | Hospitalist Progress Note ---
Date of Service July 28, 2020 Assessment & Plan (1) TIA (transient ischemic attack): hx CVA as per records possibly related to missed doses antiplatelet Rx/cardiac medications OBS Medical telemetry Neurochecks Facilitate antiplatelet Rx for secondary stroke prevention MRI brain, Neurology consult RE TIA MRI brain negative for acute stroke Permissive hypertension until acute stroke ruled out, now BP at goal Hypertension, BP currently at goal LDL 116, pt prescribed crestor and ezetimib, but needs to resume his home meds Echo obtained - interatrial septum intact, no ASD, EF 50-55%, hypokinesis in several segments noted (discussed w/ cardiology - cont. home cardiac meds) Hyperglycemia rule out DM Current hemoglobin A1c 6% LDL 116, pt prescribed crestor and ezetimib, but needs to resume his home meds Ongoing tobacco abuse Nicotine replacement therapy as needed Counselling Chronic systolic heart failure (EF 45 to 49%, TTE 2017), patient euvolemic Echo repeated for TIA eval - EF 50-55%, hypokinesis in several segments noted (discussed w/ cardiology - cont. home cardiac meds) CAD status post stent hyperlipidemia on statin Rx COPD, lung status at baseline right renal mass, patient [facility] with [facility] Cognitive issues as per records, patient mentating well, prior outpatient neurology eval 2019 DVT prophylaxis per Lovenox subcu Full code Admission and Anticipated Discharge Date Admission Date: July 27, 2020 Subjective Pt seen in follow up of TIA, dysarthria. Currently laying in bed in NAD. Reports symptoms have resolved. Denies any dysarthria, weakness, or numbness. He was esther to have breakfast this AM. Denies any fever, chills, chest pain, shortness of breath, abd. pain. Reviewed MRI and Echo with the pt. Pt has not walked yet today. Reviewed that pt has not taken his medications for several days. Review of Systems Review of Systems: All systems reviewed & are unremarkable except as noted in HPI & below Constitutional: no fever and no chills Respiratory: no cough and no dyspnea Cardiovascular: no chest pain, no palpitations and no edema Gastrointestinal: no abdominal pain and no vomiting Physical Exam Physical Exam: GENERAL: Comfortable, occasionally teary-eyed, no respiratory distress SKIN: Normal color, warm HEENT: NC/AT, EOMI, pink palpebral conjunctivae, no ptosis, moist buccal mucosa, edentulous NECK : Supple, no tenderness CHEST : CTAB, no wheezing, crackles, very mild rhonchi HEART : RRR, no obvious murmurs ABDOMEN: soft, nontender, nondistended, + bowel sounds EXTREMITIES : No LE swelling/tenderness, moves extremities spontaneously, no sensory loss noted NEUROLOGIC : Coherent, no facial asymmetry, speech fluent but soft, moves extremities Results & Data Results & Data ([facility]) Vital Signs (Past 12 Hours) Vital Signs Temp Pulse Pulse Resp BP BP Pulse Ox 07/28/20 07:24 36.6 C 65 16 129/82 99 07/28/20 04:21 66 07/28/20 04:08 36.6 C 68 20 109/75 97 07/27/20 23:51 36.4 C L 78 20 138/93 95 07/27/20 21:30 36.6 C 66 18 150/100 H 173/111 H 94 Laboratory Results 07/28/20 07/28/20 07/27/20 Range/Units 05:40 05:40 18:40 WBC 5.96 (4.8-10.8) K/uL RBC 4.29 L (4.7-6.1) M/uL Hgb 13.4 L (14.0-18.0) g/dL Hct 40.1 L (42-52) % MCV 93.5 (80-100) fL MCH 31.2 (25-34) pg MCHC 33.4 (32-36) g/dL RDW Std Deviation 45.7 (36.4-46.3) fL RDW Coeff of Lakesha 13.4 (11.5-14.5) % Plt Count 186 (130-400) K/uL MPV 10.9 H (7.4-10.4) fL Immature Gran % (Auto) 0.2 % Neut % (Auto) 50.6 % Lymph % (Auto) 35.6 % [place] % (Auto) 10.4 % Eos % (Auto) 2.7 % Baso % (Auto) 0.5 % Neut # (Auto) 3.02 (1.4-6.5) K/uL Lymph # (Auto) 2.12 (1.2-3.4) K/uL [place] # (Auto) 0.62 H (0.11-0.59) K/uL Eos # (Auto) 0.16 (0-0.5) K/uL Baso # (Auto) 0.03 (0-0.2) K/uL Immature Gran # (Auto) 0.01 (0.00-0.02) K/uL PT (9.0-12.0) Seconds INR (0.9-1.1) APTT (21.0-31.0) Seconds PTT Ratio Sodium 144 (136-145) mmol/L Potassium 4.2 (3.5-5.1) mmol/L Chloride 113 H (98-107) mmol/L Carbon Dioxide 28 (21-32) mmol/L Anion Gap 3.0 (3-11) BUN 16 (7-18) mg/dl Creatinine 1.13 (0.6-1.4) mg/dl Est Cr Clr Drug Dosing 60.8 ml/min Est GFR ( Amer) 75.9 Est GFR (Non-Af Amer) 65.5 BUN/Creatinine Ratio 14.4 (10-20) Glucose 94 (70-99) mg/dl POC Glucose (70-99) mg/dl Estimat Average Glucose mg/dl Hemoglobin A1c (4.5-5.6) % Calcium 8.2 L (8.5-10.1) mg/dl Magnesium (1.8-2.4) mg/dl Total Bilirubin (0.2-1) mg/dl AST (15-37) U/L ALT (12-78) U/L Alkaline Phosphatase (45-117) U/L Troponin I (0-0.045) ng/ml Total Protein (6.4-8.2) gm/dl Albumin (3.4-5.0) gm/dl Globulin (2.5-4.0) gm/dl Albumin/Globulin Ratio (0.9-2) Triglycerides 126 (0-150) mg/dl Cholesterol 178 (0-200) mg/dl LDL Cholesterol, Calc 116 mg/dl VLDL Cholesterol, Calc 25 mg/dl HDL Cholesterol 37 mg/dl Cholesterol/HDL Ratio 5 COVID-19 Eval Order SARS-CoV-2, RNA, NAAT NEGATIVE (NEGATIVE) Blood Type Antibody Screen 07/27/20 07/27/20 07/27/20 Range/Units 18:40 18:21 18:15 WBC (4.8-10.8) K/uL RBC (4.7-6.1) M/uL Hgb (14.0-18.0) g/dL Hct (42-52) % MCV (80-100) fL MCH (25-34) pg MCHC (32-36) g/dL RDW Std Deviation (36.4-46.3) fL RDW Coeff of Lakesha (11.5-14.5) % Plt Count (130-400) K/uL MPV (7.4-10.4) fL Immature Gran % (Auto) % Neut % (Auto) % Lymph % (Auto) % [place] % (Auto) % Eos % (Auto) % Baso % (Auto) % Neut # (Auto) (1.4-6.5) K/uL Lymph # (Auto) (1.2-3.4) K/uL [place] # (Auto) (0.11-0.59) K/uL Eos # (Auto) (0-0.5) K/uL Baso # (Auto) (0-0.2) K/uL Immature Gran # (Auto) (0.00-0.02) K/uL PT (9.0-12.0) Seconds INR (0.9-1.1) APTT (21.0-31.0) Seconds PTT Ratio Sodium (136-145) mmol/L Potassium (3.5-5.1) mmol/L Chloride (98-107) mmol/L Carbon Dioxide (21-32) mmol/L Anion Gap (3-11) BUN (7-18) mg/dl Creatinine (0.6-1.4) mg/dl Est Cr Clr Drug Dosing ml/min Est GFR ( Amer) Est GFR (Non-Af Amer) BUN/Creatinine Ratio (10-20) Glucose (70-99) mg/dl POC Glucose 95 (70-99) mg/dl Estimat Average Glucose mg/dl Hemoglobin A1c (4.5-5.6) % Calcium (8.5-10.1) mg/dl Magnesium (1.8-2.4) mg/dl Total Bilirubin (0.2-1) mg/dl AST (15-37) U/L ALT (12-78) U/L Alkaline Phosphatase (45-117) U/L Troponin I (0-0.045) ng/ml Total Protein (6.4-8.2) gm/dl Albumin (3.4-5.0) gm/dl Globulin (2.5-4.0) gm/dl Albumin/Globulin Ratio (0.9-2) Triglycerides (0-150) mg/dl Cholesterol (0-200) mg/dl LDL Cholesterol, Calc mg/dl VLDL Cholesterol, Calc mg/dl HDL Cholesterol mg/dl Cholesterol/HDL Ratio COVID-19 [email or web address] SARS-CoV-2, RNA, NAAT (NEGATIVE) Blood Type O Negative Antibody Screen NEGATIVE 07/27/20 07/27/20 07/27/20 Range/Units 17:51 17:51 17:51 WBC (4.8-10.8) K/uL RBC (4.7-6.1) M/uL Hgb (14.0-18.0) g/dL Hct (42-52) % MCV (80-100) fL MCH (25-34) pg MCHC (32-36) g/dL RDW Std Deviation (36.4-46.3) fL RDW Coeff of Lakesha (11.5-14.5) % Plt Count (130-400) K/uL MPV (7.4-10.4) fL Immature Gran % (Auto) % Neut % (Auto) % Lymph % (Auto) % [place] % (Auto) % Eos % (Auto) % Baso % (Auto) % Neut # (Auto) (1.4-6.5) K/uL Lymph # (Auto) (1.2-3.4) K/uL [place] # (Auto) (0.11-0.59) K/uL Eos # (Auto) (0-0.5) K/uL Baso # (Auto) (0-0.2) K/uL Immature Gran # (Auto) (0.00-0.02) K/uL PT 9.8 (9.0-12.0) Seconds INR 0.9 (0.9-1.1) APTT 29.3 (21.0-31.0) Seconds PTT Ratio 1.1 Sodium 142 (136-145) mmol/L Potassium 4.0 (3.5-5.1) mmol/L Chloride 111 H (98-107) mmol/L Carbon Dioxide 29 (21-32) mmol/L Anion Gap 2.0 L (3-11) BUN 13 (7-18) mg/dl Creatinine 1.11 (0.6-1.4) mg/dl Est Cr Clr Drug Dosing 61.9 ml/min Est GFR ( Amer) 77.6 Est GFR (Non-Af Amer) 66.9 BUN/Creatinine Ratio 11.9 (10-20) Glucose 119 H (70-99) mg/dl POC Glucose (70-99) mg/dl Estimat Average Glucose 126 mg/dl Hemoglobin A1c 6.0 H (4.5-5.6) % Calcium 8.4 L (8.5-10.1) mg/dl Magnesium 2.5 H (1.8-2.4) mg/dl Total Bilirubin 0.4 (0.2-1) mg/dl AST 14 L (15-37) U/L ALT 19 (12-78) U/L Alkaline Phosphatase 96 (45-117) U/L Troponin I < 0.015 (0-0.045) ng/ml Total Protein 7.2 (6.4-8.2) gm/dl Albumin 3.9 (3.4-5.0) gm/dl Globulin 3.3 (2.5-4.0) gm/dl Albumin/Globulin Ratio 1.2 (0.9-2) Triglycerides (0-150) mg/dl Cholesterol (0-200) mg/dl LDL Cholesterol, Calc mg/dl VLDL Cholesterol, Calc mg/dl HDL Cholesterol mg/dl Cholesterol/HDL Ratio COVID-19 Eval Order SARS-CoV-2, RNA, NAAT (NEGATIVE) Blood Type Antibody Screen 07/27/20 Range/Units 17:51 WBC 7.19 (4.8-10.8) K/uL RBC 4.77 (4.7-6.1) M/uL Hgb 15.5 (14.0-18.0) g/dL Hct 43.9 (42-52) % MCV 92.0 (80-100) fL MCH 32.5 (25-34) pg MCHC 35.3 (32-36) g/dL RDW Std Deviation 44.3 (36.4-46.3) fL RDW Coeff of Lakesha 13.2 (11.5-14.5) % Plt Count 223 (130-400) K/uL MPV 11.0 H (7.4-10.4) fL Immature Gran % (Auto) 0.0 % Neut % (Auto) 51.7 % Lymph % (Auto) 37.3 % [place] % (Auto) 8.5 % Eos % (Auto) 2.1 % Baso % (Auto) 0.4 % Neut # (Auto) 3.72 (1.4-6.5) K/uL Lymph # (Auto) 2.68 (1.2-3.4) K/uL [place] # (Auto) 0.61 H (0.11-0.59) K/uL Eos # (Auto) 0.15 (0-0.5) K/uL Baso # (Auto) 0.03 (0-0.2) K/uL Immature Gran # (Auto) 0.00 (0.00-0.02) K/uL PT (9.0-12.0) Seconds INR (0.9-1.1) APTT (21.0-31.0) Seconds PTT Ratio Sodium (136-145) mmol/L Potassium (3.5-5.1) mmol/L Chloride (98-107) mmol/L Carbon Dioxide (21-32) mmol/L Anion Gap (3-11) BUN (7-18) mg/dl Creatinine (0.6-1.4) mg/dl Est Cr Clr Drug Dosing ml/min Est GFR ( Amer) Est GFR (Non-Af Amer) BUN/Creatinine Ratio (10-20) Glucose (70-99) mg/dl POC Glucose (70-99) mg/dl Estimat Average Glucose mg/dl Hemoglobin A1c (4.5-5.6) % Calcium (8.5-10.1) mg/dl Magnesium (1.8-2.4) mg/dl Total Bilirubin (0.2-1) mg/dl AST (15-37) U/L ALT (12-78) U/L Alkaline Phosphatase (45-117) U/L Troponin I (0-0.045) ng/ml Total Protein (6.4-8.2) gm/dl Albumin (3.4-5.0) gm/dl Globulin (2.5-4.0) gm/dl Albumin/Globulin Ratio (0.9-2) Triglycerides (0-150) mg/dl Cholesterol (0-200) mg/dl LDL Cholesterol, Calc mg/dl VLDL Cholesterol, Calc mg/dl HDL Cholesterol mg/dl Cholesterol/HDL Ratio COVID-19 Eval Order SARS-CoV-2, RNA, NAAT (NEGATIVE) Blood Type Antibody Screen Medications Administered Current Inpatient Medications Acetaminophen (Acetaminophen 325 Mg Tab) 650 mg PO Q4H PRN PRN Reason: Pain or Fever Stop: 08/26/20 21:11 Albuterol (Albut/Ipratrop 3mg/0.5mg Neb 3 Ml Vial) 3 ml NEB Q2H PRN PRN Reason: Wheezing Stop: 08/26/20 21:33 Aspirin (Aspirin 81 Mg Ectab) 81 mg PO QAM REPLACED BY [facility] Stop: 08/27/20 08:59 Bupropion HCl (Bupropion Sr 150 Mg Tabcr) 150 mg PO BID REPLACED BY [facility] Stop: 08/26/20 21:11 Last Admin: 07/27/20 22:32 Dose: 150 mg Documented by: Buspirone HCl (Buspirone 5 Mg Tab) 5 mg PO BID REPLACED BY [facility] Stop: 08/26/20 21:11 Last Admin: 07/27/20 22:32 Dose: 5 mg Documented by: Carvedilol (Carvedilol 3.125 Mg Tab) 3.125 mg PO BID REPLACED BY [facility] Stop: 08/27/20 20:59 Cetirizine HCl (Cetirizine Hcl 10 Mg Tablet) 10 mg PO QPM REPLACED BY [facility] Stop: 08/26/20 21:11 Last Admin: 07/27/20 22:32 Dose: 10 mg Documented by: Cyclobenzaprine HCl (Cyclobenzaprine Hcl 10 Mg Tab) 10 mg PO TID PRN PRN Reason: Muscle Spasm Stop: 08/26/20 21:11 Dutasteride (Dutasteride) 1 [facility] [place] Stop: 08/27/20 08:59 Ezetimibe (Ezetimibe 10 Mg Tablet) 10 mg PO QAM REPLACED BY [facility] Stop: 08/27/20 08:59 Enoxaparin Sodium (Enoxaparin Inj 40 Mg/0.4 Ml Syr) 40 mg SQ [facility] [place] Stop: 08/27/20 08:59 Febuxostat (Febuxostat 40 Mg Tablet) 40 mg PO QAM REPLACED BY [facility] Stop: 08/27/20 08:59 Fluticasone/Vilanterol (Fluticasone/Vilanterol 200/25mcg 14 Puffs/Inhaler) 1 puffs INH DAILY REPLACED BY [facility] Stop: 08/27/20 08:59 Promethazine HCl 6.25 mg/ (Sodium Chloride) 50.25 mls @ 201 mls/hr IV Q6H PRN PRN Reason: Nausea And Vomiting Stop: 08/26/20 21:11 Lorazepam (Ativan) 0.25 mg in 0.5 mls @ 0.5 mls/min IV Q1H PRN PRN Reason: anxiety prior or during mri Stop: 08/26/20 21:28 Last Admin: 07/27/20 21:46 Dose: 0.5 mls/min Documented by: Sodium Chloride (Nss) 500 mls @ 60 mls/hr IV .Q8H20M ONE Stop: 07/28/20 14:13 Last Admin: 07/28/20 06:11 Dose: 60 mls/hr Documented by: Melatonin (Melatonin 3 Mg Tab) 3 mg PO HS PRN PRN Reason: Sleep Stop: 08/26/20 21:11 Miscellaneous (Azelastine: Order Awaiting Action) 1 ea N/A QS REPLACED BY [facility] Stop: 08/27/20 00:00 Last Admin: 07/28/20 07:48 Dose: Not Given Documented by: Pantoprazole Sodium (Pantoprazole 40 Mg Tab) 40 mg PO BID REPLACED BY [facility] Stop: 08/26/20 21:11 Last Admin: 07/27/20 22:32 Dose: 40 mg Documented by: Prasugrel (Prasugrel Tab 10 Mg Tab) 10 mg PO QAM REPLACED BY [facility] Stop: 08/26/20 20:49 Last Admin: 07/27/20 22:33 Dose: 10 mg Documented by: Pregabalin (Pregabalin 75 Mg Cap) 75 mg PO QAM REPLACED BY [facility] Stop: 08/27/20 08:59 Pregabalin (Pregabalin 150 Mg Cap) 150 mg PO QPM REPLACED BY [facility] Stop: 08/26/20 21:11 Last Admin: 07/27/20 22:31 Dose: 150 mg Documented by: Ropinirole HCl (Ropinirole Hcl 0.25 Mg Tablet) 0.5 mg PO TIDM REPLACED BY [facility] Stop: 08/26/20 21:11 Last Admin: 07/27/20 22:31 Dose: 0.5 mg Documented by: Rosuvastatin Calcium (Rosuvastatin Calcium 20 Mg Tab) 40 mg PO QAM REPLACED BY [facility] Stop: 08/27/20 08:59 Tramadol HCl (Tramadol Hcl 50 Mg Tablet) 25 mg PO Q4H PRN PRN Reason: Pain Stop: 08/26/20 21:11 Umeclidinium [place] (Umeclidinium [place] 62.5mcg/Blister 7 Puffs/Inhaler) 1 puffs INH QPM REPLACED BY [facility] Stop: 08/26/20 21:11 Last Admin: 07/27/20 22:32 Dose: 1 puffs Documented by:
[2020-07-28] MEDS ORDERED: FLUTICASONE/VILANTEROL 200/25MCG 14 PUFFS/INHALER INH SCH (09:00)
[2020-07-28] MEDS ORDERED: PREGABALIN 75 MG CAP PO SCH (09:00)
[2020-07-28] MEDS ORDERED: DUTASTERIDE PO SCH (09:00)
[2020-07-28] MEDS ORDERED: FEBUXOSTAT 40 MG TABLET PO SCH (09:00)
[2020-07-28] MEDS ORDERED: EZETIMIBE 10 MG TABLET PO SCH (09:00)
[2020-07-28] MEDS ORDERED: amLODIPine BESYLATE 5 MG TAB PO SCH (09:00)
[2020-07-28] MEDS ORDERED: ENOXAPARIN INJ 40 MG/0.4 ML SYR SQ SCH (09:00)
[2020-07-28] MEDS ORDERED: ROSUVASTATIN CALCIUM 20 MG TAB PO SCH (09:00)
[2020-07-28] MEDS ORDERED: ISOSORBIDE MONO EXTENDED REL 60 MG TABCR PO SCH (09:00)
[2020-07-28] MEDS ORDERED: ASPIRIN 81 MG ECTAB PO SCH (09:00)
[2020-07-28] MEDS: rOPINIRole HCL 0.25 MG TABLET PO SCH ×2 (09:01→13:32)
[2020-07-28] MEDS: busPIRone 5 MG TAB PO SCH (09:03)
[2020-07-28] MEDS: buPROPion SR 150 MG TABCR PO SCH (09:04)
[2020-07-28] MEDS: PRASugrel TAB 10 MG TAB PO SCH (09:04)
[2020-07-28] MEDS: PANTOprazole 40 MG TAB PO SCH (09:04)
--- NOTE | 2020-07-28 16:02 | Consultation Report ---
DATE OF CONSULTATION: 07/28/2020 NEUROLOGY CONSULTATION NOTE CHIEF COMPLAINT: Slurred speech, right arm paresthesias, headache. HISTORY OF PRESENT ILLNESS: A 70-year-old male with a history of hypertension and chronic systolic heart failure as well as coronary artery disease, status post stent, admitted yesterday afternoon for slurred speech and right arm paresthesias. He had no chest pain or shortness of breath. The patient recently was not compliant with his home medications. He did suffer some stress as his sister last evening. He does report feeling depressed, although he did not note any suicidal ideation. By the time he was evaluated in the Emergency Department, his speech as well as his arm symptoms had resolved. The patient was admitted to the hospitalist service yesterday for the possibility of a transient ischemic attack. Neurology was consulted upon admission. ALLERGIES: CODEINE. HOME MEDICATIONS: Spiriva, albuterol, amlodipine, aspirin 81 mg, Wellbutrin, carvedilol, Flexeril, Zetia, Lasix, nitroglycerin, omeprazole, potassium chloride, Lyrica, ropinirole 0.5 mg 3 times daily, Crestor, lisinopril, buspirone, spironolactone. PAST MEDICAL HISTORY: Includes coronary artery disease, status post stent, prior history of cerebrovascular accident, hypertension, hyperlipidemia, COPD, right renal mass, BPH, restless leg, anxiety, tobacco abuse. PAST SURGICAL HISTORY: Cystoscopy. He had a TURP, eyelid surgery as well as back surgery. FAMILY HISTORY: There is a history of kidney cancer, heart disease and colon cancer. SOCIAL HISTORY: He smokes 3 cigarettes per day. He denies alcohol. He is retired from [employer]. REVIEW OF SYSTEMS: As noted above in the HPI. All 10 systems was reviewed. All other review of systems was negative. PHYSICAL EXAMINATION: VITAL SIGNS: Blood pressure 130/78, pulse is 66, respiratory rate 18, temperature is 36.4 degrees Celsius, oxygen saturation is 97% on room air. GENERAL: The patient appears his stated age, in no distress. HEENT: His head and face is normocephalic and atraumatic. Normal eyelids, normal conjunctivae. NECK: Supple. LUNGS: He has a normal respiratory effort. CARDIAC: He has normal cardiac pulses. ABDOMEN: Nondistended. SKIN: No skin rash. PSYCHIATRIC: He has normal mood and normal affect. NEUROLOGIC: Appears in no distress. He is awake, alert and oriented to person, place and time. His memory is normal. His attention is normal. His knowledge is appropriate. Comprehension is intact. Speech is clear. Pupils are symmetric. Extraocular muscles are intact. Facial sensation intact. Face is symmetric. Intact hearing. Palate is symmetric. Good shoulder shrug. Tongue is midline. Gait evaluation deferred. No tremor or myoclonic jerks. No ataxia with fleatp-li-jovi testing. Sensation is intact to light touch. Muscle tone is normal. Muscle strength is 5/5 in the upper and lower extremities. Reflexes show a negative Kathy sign and no ankle clonus. DIAGNOSTIC TESTING AND LABORATORY VALUES: WBC 5.96, hemoglobin 13.4, platelet count is 186. INR is 0.9. Sodium 144, potassium 4.2, chloride 113, carbon dioxide 28, BUN is 16, creatinine 1.13, calcium 8.2. LDL cholesterol 116. Urinalysis was not performed. COVID testing was negative. MRI of the brain without IV contrast showed no acute intracranial abnormality. Age-related involutional change noting [id number] patchy subcortical and periventricular microangiopathic disease. There is no evidence of hemorrhage or mass effect. No restricted diffusion to suggest acute ischemia. Head and neck CTA, there is severe pulmonary emphysema. On the right, there is no evidence of hemodynamically significant carotid or vertebral artery stenosis. No evidence of dissection. There is no large vessel occlusion intracranially. There is no major branch occlusion. Dural venous sinuses are patent. Chest x-ray was not performed. ASSESSMENT AND PLAN: A 70-year-old male with multiple medical comorbidities also with a significant polypharmacy, admitted with brief transient right upper extremity paresthesias and slurred speech. Differential diagnosis certainly includes a transient ischemic attack. Recommend resuming home aspirin and high-intensity statin. Blood pressures currently look well controlled with systolic blood pressure goals less than 140, diastolic blood pressures less than 90. Transthoracic echocardiogram already completed and shows an ejection fraction of 50%-55%. There was no intra-arterial shunt or cardiac source of embolism. No additional neurological workup necessary. The patient can follow up with his primary care physician after discharge. Please contact me with any additional questions or concerns. TARYN
--- NOTE | 2020-07-28 16:20 | Discharge Summary ---
Date of Service July 28, 2020 Admission HPI Per Admitting Provider History obtained from patient and records. Medical history significant for chronic systolic heart failure (EF 45 to 49%, TTE 2017), CAD status post stent, CVA, hypertension, hyperlipidemia, COPD, right renal mass, BPH, RLS, cognitive issues as per records, anxiety disorder, ongoing tobacco abuse. Last confinement 2016 for chest pain, right-sided numbness symptoms. ACS ruled out. No acute stroke on imaging. This afternoon, patient noted slurred speech, achy headache along with tingling right arm sensation. No chest pain, no S OB. Patient unable to take home medications the last 4 days as he had not been home. Patient wanted to be with his ailing sister and her last moments as per patient. Patient sister last night. Although depressed, patient denies suicidality. Symptoms resolved by the time patient arrived at the ER. Medical History as above Right renal mass since 2018 hypovascular neoplastic process versus enlarging hemorrhagic cyst as per outpatient [facility] note last year Surgical History : Cystoscopy, TURP, eyelid surgery, back surgery Family History : Kidney cancer, heart disease, colon cancer Personal/Social history : 3 cigarettes a day, no EtOH intake, retired from [employer] work Admission Exam Per Admitting Provider GENERAL: Comfortable, occasionally teary-eyed, no respiratory distress SKIN: Normal color, warm HEENT: [place] palpebral conjunctivae, no ptosis, moist buccal mucosa, edentulous NECK : Supple, no tenderness CHEST : Decreased breath sounds , no tenderness HEART : RRR, no obvious murmurs ABDOMEN: Some distention, nontender EXTREMITIES : No LE swelling/tenderness, no other conspicuous deformities noted NEUROLOGIC : Coherent, no facial asymmetry, no other gross focality Principal Diagnosis TIA, dysarthria Discharge Exam GENERAL: Comfortable, occasionally teary-eyed, no respiratory distress SKIN: Normal color, warm HEENT: NC/AT, EOMI, pink palpebral conjunctivae, no ptosis, moist buccal mucosa, edentulous NECK : Supple, no tenderness CHEST : CTAB, no wheezing, crackles, very mild rhonchi HEART : RRR, no obvious murmurs ABDOMEN: soft, nontender, nondistended, + bowel sounds EXTREMITIES : No LE swelling/tenderness, moves extremities spontaneously, no sensory loss noted NEUROLOGIC : Coherent, no facial asymmetry, speech fluent but soft, moves extremities Discharge Data Allergies Allergy/AdvReac Type Severity Reaction Status Date / Time codeine Allergy Mild "SKIN Verified 07/27/20 19:54 STARTS FALLING OFF" Consultations 07/27/20 21:12 Consult Case Management - Discharge Planning Routine Consult Neurology Routine Ordered Studies 07/27/20 17:51 CT angio head w con Stat CT angio neck with con Stat IMPRESSION: No significant abnormalities identified. CT head/brain wo con Stat IMPRESSION: No acute intracranial findings 07/27/20 21:12 MR brain wo con Routine IMPRESSION: No acute intracranial abnormality. Hospital Course (1) TIA (transient ischemic attack): hx CVA as per records possibly related to missed doses antiplatelet Rx/cardiac medications OBS Medical telemetry Neurochecks Neurology consulted Facilitate antiplatelet Rx for secondary stroke prevention - recommend to continue current home med regimen MRI brain, Neurology consult RE TIA MRI brain negative for acute stroke Permissive hypertension until acute stroke ruled out, now BP at goal Hypertension, BP currently at goal LDL 116, pt prescribed crestor and ezetimib, but needs to resume his home meds Echo obtained - interatrial septum intact, no ASD, EF 50-55%, hypokinesis in several segments noted (discussed w/ cardiology - cont. home cardiac meds) Hyperglycemia rule out DM Current hemoglobin A1c 6% LDL 116, pt prescribed crestor and ezetimib, but needs to resume his home meds Ongoing tobacco abuse Nicotine replacement therapy as needed Counselling Chronic systolic heart failure (EF 45 to 49%, TTE 2017), patient euvolemic Echo repeated for TIA eval - EF 50-55%, hypokinesis in several segments noted (discussed w/ cardiology - cont. home cardiac meds) CAD status post stent hyperlipidemia on statin Rx COPD, lung status at baseline right renal mass, patient follows with [facility] Cognitive issues as per records, patient mentating well, prior outpatient neurology eval 2019 Total Time Total Time Spent Total Time Spent (In Minutes): 35 Total Time Includes: Examination of the Patient, Discharge Planning, Medication Reconciliation and Communication With Other Providers Discharge Plan Discharge Items Patient Disposition: Home - Self-Care Reason For Visit: TIA Discharge Diagnosis: TIA, dysarthria Activity: Per Instructions section Non-emergency contact: Primary Care Provider Call non-emergency contact if: you have any medication questions and your symptoms worsen Follow-up/Referrals: Sulman,Leon A., DO [Primary Care Provider] - (Date & Time 08/02/2020 11:20 AM Provider Leon Galvan DO Department General Internal Medicine [facility] ) Diet: Heart Healthy Addtl Attending Provider Instructions: Follow up with your primary care doctor, the appointment was scheduled for you for 08/02/2020. There were no changes made to your medications but please make sure you do take your medications. Please discuss with your family doctor if any of your medications could be reduced or eliminated. Addtl Checkroom Attendant Provider Instructions: Risk Factors for Stroke: You can reduce your chances of stroke by working with your medical provider to adopt a healthy lifestyle. Some specific ways to lower your chance of stroke are: * If you are a smoker, now is the time to stop smoking cigarettes * If you are diabetic, improve the control of your blood sugars * Avoid excessive amounts of alcohol * Control high blood pressure * Lose weight if you are overweight * Be sure to lead an active lifestyle * Eat a healthy diet low in salt, cholesterol and fat You should know about other risk factors for stroke that you are unable to control. These include: * Age 55 years or older * Male gender * Certain racial groups: , or / * Family History of Stroke, Mini stroke or Heart Attack * Sickle Cell Disease Follow Up: It is important for you to keep your follow up appointments with your medical provider. Who to Call and When: Medical Emergencies: Call 911 immediately if you experience any of the following warning signs and symptoms of Stroke: * Sudden numbness or weakness of the face, arm or leg, especially on one side of the body * Sudden confusion, trouble speaking or understanding * Sudden trouble seeing in one or both eyes * Sudden trouble walking, dizziness, loss of balance or coordination * Sudden severe headache with no cause Do not delay calling 911 if you experience any warning signs or symptoms of a stroke. Delay in seeking medical attention may affect what treatments can be given to you. . Pending Studies at Discharge: No Visit Report Forms: Smoking Cessation Stand-Alone Forms: [facility], Smoking Cessation Medications and DC Order Prescriptions: Continued cyclobenzaprine 10 mg Tablet 10 mg PO TID PRN (Reason: Muscle Spasm) RF: 0 bupropion HCl 150 mg Tablet Sustained-Release 12 Hr 150 mg PO BID RF: 0 carvedilol 6.25 mg Tablet 6.25 mg PO BID RF: 0 albuterol sulfate 2.5 mg /3 mL (0.083 %) Solution For Nebulization 2.5 mg INHALATION Q4 PRN (Reason: Wheezing) RF: 0 aspirin 81 mg Tablet,Delayed Release (Dr/Ec) 81 mg PO QAM RF: 0 amlodipine 10 mg Tablet 10 mg PO QAM RF: 0 ropinirole 0.5 mg Tablet 0.5 mg PO TID RF: 0 fluticasone propion-salmeterol [Advair Diskus] 500-50 mcg/dose Blister With Device 1 inh INHALATION BID RF: 0 nitroglycerin 0.4 mg Tablet, Sublingual 0.4 mg sublingual UD PRN (Reason: Angina) RF: 0 hydroxyzine HCl 25 mg Tablet 12.5 - 25 mg PO Q6 PRN (Reason: Itching) RF: 0 furosemide 20 mg Tablet 20 mg PO DAILY PRN (Reason: Edema) RF: 0 azelastine 137 mcg (0.1 %) Aerosol,Piru 2 spray INTRANASAL BID RF: 0 albuterol sulfate [ProAir HFA] 90 mcg/actuation Hfa Aerosol Inhaler 2 puff INHALATION QID PRN (Reason: Shortness Of Breath) RF: 0 ezetimibe 10 mg Tablet 10 mg PO QAM RF: 0 dutasteride 0.5 mg Capsule 0.5 mg PO QAM RF: 0 rosuvastatin 40 mg Tablet 40 mg PO QAM RF: 0 Spiriva with HandiHaler 18 mcg Capsule, W/Inhalation Device 1 cap INHALATION QPM RF: 0 pregabalin 75 mg Capsule 75 mg PO QAM RF: 0 pregabalin 75 mg Capsule 150 mg PO QPM RF: 0 omeprazole 20 mg Tablet,Delayed Release (Dr/Ec) 20 mg PO BID RF: 0 febuxostat 40 mg Tablet 40 mg PO QAM RF: 0 prasugrel [Effient] 10 mg Tablet 10 mg PO QAM RF: 0 potassium chloride 20 mEq Tablet Extended Release 20 meq PO QAM RF: 0 cetirizine 10 mg Tablet 10 mg PO QPM RF: 0 isosorbide mononitrate 60 mg Tablet Extended Release 24 Hr 60 mg PO QAM RF: 0 lisinopril 40 mg Tablet 40 mg PO QPM RF: 0 acetaminophen [Tylenol] 325 mg Tablet 325 mg PO Q6H PRN (Reason: Pain) RF: 0 buspirone 5 mg tablet 5 mg PO BID RF: 0 spironolactone 25 mg tablet 12.5 mg PO DAILY RF: 0 Discharge Orders: Discharge Order (Routine); Ordered 07/28/20 Ordered By: Emanuel Bernstein/Other Patient Handouts: Exercise to Manage Your Blood Sugar, 5 Steps for Eating Healthier, TIA Dc, A1C Admission Data Admit Date/Time: 07/27/20 20:03 Attending Provider: Emanuel Oliveros Admit Provider: Justin Correa Primary Care Provider: Leon Galvan Other Providers: Ivana Stevens ; Eder Huang ; Ivana Sandhu ; Max Ye
[2020-07-28] MEDS ORDERED: carvediloL 3.125 MG TAB PO SCH (21:00)
[2020-07-28] MEDS ORDERED: lisinopril 40 MG TAB PO SCH (21:00)
--- NOTE | 2020-07-29 00:13 | Electrocardiogram Report ---
Test Reason : Blood Pressure : / mmHG Vent. Rate : 071 BPM Atrial Rate : 071 BPM P-R Int : 170 ms QRS Dur : 092 ms QT Int : 414 ms P-R-T Axes : 079 041 078 degrees QTc Int : 449 ms Normal sinus rhythm Cannot rule out Inferior infarct , age undetermined Anteroseptal infarct (cited on or before 26-MAY-2014) Abnormal ECG When compared with ECG of 30-JUN-2019 09:37, No significant change was found Confirmed by Angelito Hernandez ([id number]) on 07/29/2020 12:13:25 AM Referred By: REFERRED SELF Confirmed By:Angelito Hernandez
== END 2020-07-28 16:44 | disposition home or self-care (01) ==
LOC: EDBD → 2N 17:56 → ED 17:56 → 2N 20:39

== ENCOUNTER 2022-12-18 16:54 | Inpatient (IN) ==
[2022-12-18] MEDS ORDERED: SODIUM CHLORIDE 0.9% 500 ML IV ONE (17:10)
--- NOTE | 2022-12-18 17:10 | Emergency Department Note ---
Impression & Plan Dizziness, HTN (hypertension), Leg weakness ED Provider Note NAME: CARITO FOLEY AGE: 72 SEX: M : 1950 ARRIVES VIA: Walk-In INFORMANT: Patient ED PROVIDER(S): Pepe Owens DO CHIEF COMPLAINT: dizzy and falls HPI: Patient is a 72-year-old male with a past medical history of asthma, CAD, VT, COPD, diabetes, dyslipidemia, hypertension, carotid artery stent, TIA who presents to the ER for dizziness and associated with recurrent falls which has been present for the past 2 days. Denies any change in vision but does have a left-sided headache. He notes he has fallen at least 4 times when it started and has fallen multiple times since then. He noticed some weakness in his right lower leg. Denies any chest pain or shortness of breath today but did have some chest pain when this initially started. No belly pain nausea vomiting or diarrhea. No dysuria urgency or frequency. No other exacerbating or remitting factors. PAST MEDICAL HISTORY:See Below PAST SURGICAL HISTORY:See Below FAMILY HISTORY:See Below SOCIAL HISTORY:See Below HOME MEDICATIONS:See Below ALLERGIES:See Below VITALS:See Below PHYSICAL EXAMINATION: GENERAL: Sitting up in bed, alert, well appearing, well nourished, no distress, non-toxic EYE EXAM: normal conjunctiva. PERRL and EOM's intact. OROPHARYNX: no exudate, no erythema, lips, buccal mucosa, and tongue normal and mucous membranes are moist NECK: supple, no nuchal rigidity, no adenopathy, non-tender LUNGS: Clear to auscultation. Normal chest wall mechanics HEART: no murmurs, S1 normal and S2 normal ABDOMEN: abdomen soft, non-tender, normo-active bowel sounds, no masses, no rebound or guarding. UPPER EXTREMITIES: upper extremities are grossly normal. LOWER EXTREMITIES: No pitting edema. NEURO EXAM: Normal sensorium, cranial nerves II-XII intact, normal speech, no weakness of arms, no weakness of legs. No drift. Finger to nose intact. Gross sensation intact. MEDICAL DECISION MAKING: Patient is a 72-year-old male who presents ER for above-stated complaint. IV was established blood work was obtained. External records were reviewed. Labs show no significant leukocytosis or anemia. INR unremarkable. BMP and with LFTs bilirubin magnesium was unremarkable. Troponins were negative. COVID was negative. His complete neurologically intact. He did have a horizontal nystagmus on evaluation. CT angios of his head and neck were negative for any acute pathology but patient does have some weakness in the right lower extremity and continues to fall. Based on this he was discussed with the hospitalist for further evaluation management and treatment. Patient was given hydralazine with systolic pressures in the 200s. Trend down to 180s. He was updated bedside. Triage Nursing notes reviewed. Limited review of prior medical records performed Vital Signs: reviewed and remarkable for HTN Differential diagnosis: Differential Diagnosis includes but is not limited to ischemic Stroke, hemorrhagic stroke, bells palsy, mass, neoplasm, migraine headache, seizure, subarachnoid hemorrhage, TIA, and transient global amnesia. ER treatment provided: See below Diagnostics interpreted by me include EKG and cardiac monitoring as listed below: -Cardiac Monitoring: An order was placed for continuous cardiac monitoring. The monitor shows a rate of 80 with sinus rhythm. -ECG: Sinus rhythm rate of 67 Left axis No PVCs QTc 445 T wave inversions in the septal leads Anterior and lateral Q waves -Laboratory studies: Imaging studies: Xrays: As interpreted by me: Portable AP upright 1 view of the chest shows no pneumonia per my read CTs show: CT angios of the head and neck showed no acute pathology per radiology Consultation(s): Discussed with Juli edge for further evaluation management and treatment Procedures:none Critical Care: None Past Med/Surg History Medical History Asthma Chronic obstructive pulmonary disease GERD (gastroesophageal reflux disease) Hx of gout Hyperlipidemia Hypertension Myocardial Infarction x4--last 2017--follows with Dr. 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>"STILL HAS WEAKNESS IN RT ARM" Surgical History History of appendectomy History of bilateral cataract extraction History of cardiac cath multiple--last 2016, S History of colonoscopy History of cystoscopy History of esophagogastroduodenoscopy (EGD) History of heart artery stent TOTAL OF 4 STENTS PLACED DURING 4 CATH PROCEDURES; last 2017 History of lumbosacral spine surgery History of tonsillectomy History of tooth extraction all teeth Family History Sister Family history of diabetes mellitus Other No family history of adverse response to anesthesia Social History Smoking Status: Current every day smoker Cigarettes Per Day: 2; Second Hand Exposure: Yes (CURRENTLY, AND BROTHER IN LAW BOTH SMOKE IN HOUSE); Do You Dip or Chew Tobacco: No; Hx Alcohol Use: No Hx Substance Use: No Preferred Language: Latvian Communication Ability: Effective Family Physician Required: No Beliefs That Will Affect Care: None marital status: Current Living Situation: Spouse and Family Current Living Situation Comment: lives with and brother in law Feels Safe at Home: Yes Assistive Devices: Denture - Upper, Denture - Lower and Oxygen - at Night Allergies Allergies Allergy/AdvReac Type Severity Reaction Status Date / Time codeine Allergy Mild "SKIN Verified 10/20/22 09:34 STARTS FALLING OFF" Home Meds Home Medications Medication Instructions Recorded Confirmed albuterol sulfate 2.5 mg/3 mL 2.5 mg inhalation Q4 PRN Wheezing 01/13/19 12/18/22 (0.083 %) solution for nebulization albuterol sulfate 90 mcg/actuation 2 puff inhalation QID PRN 01/13/19 12/18/22 aerosol inhaler (ProAir HFA) Shortness Of Breath aspirin 81 mg tablet,delayed 81 mg PO QAM 01/13/19 12/18/22 release bupropion HCl 150 mg tablet,12 hr 150 mg PO BID 01/13/19 12/18/22 sustained-release carvedilol 6.25 mg tablet 6.25 mg PO BID 01/13/19 12/18/22 dutasteride 0.5 mg capsule 0.5 mg PO QAM 01/13/19 12/18/22 ezetimibe 10 mg tablet 10 mg PO QAM 01/13/19 12/18/22 febuxostat 40 mg tablet 40 mg PO QAM PRN GOUT 01/13/19 12/18/22 furosemide 20 mg tablet 20 mg PO DAILY PRN Edema 01/13/19 12/18/22 nitroglycerin 0.4 mg sublingual 0.4 mg sublingual UD PRN Angina 01/13/19 12/18/22 tablet omeprazole 20 mg tablet,delayed 20 mg PO BID 01/13/19 12/18/22 release prasugrel 10 mg tablet (Effient) 10 mg PO QAM 01/13/19 12/18/22 pregabalin 75 mg capsule 75 mg PO QAM 01/13/19 12/18/22 pregabalin 75 mg capsule 150 mg PO QPM 01/13/19 12/18/22 ropinirole 0.5 mg tablet 0.5 mg PO TID 01/13/19 12/18/22 rosuvastatin 40 mg tablet 40 mg PO QAM 01/13/19 12/18/22 isosorbide mononitrate 60 mg 60 mg PO QAM 06/23/19 12/18/22 tablet,extended release 24 hr lisinopril 40 mg tablet 40 mg PO QAM 06/23/19 12/18/22 acetaminophen 325 mg tablet 325 mg PO Q6H PRN Pain 06/30/19 12/18/22 (Tylenol) buspirone 5 mg tablet 5 mg PO BID 07/27/20 12/18/22 spironolactone 25 mg tablet 12.5 mg PO MOWEFR@0900 07/27/20 12/18/22 amlodipine 5 mg tablet 5 mg PO QAM 10/17/22 12/18/22 cyanocobalamin (vitamin B-12) 1,000 mcg IM UD 10/17/22 12/18/22 1,000 mcg/mL injection solution famotidine 20 mg tablet 20 mg PO QAM 10/17/22 12/18/22 fluticasone fur. 200 mcg-umeclid 1 inh inhalation QA 10/17/22 12/18/22 62.5 mcg-vilant 25 mcg inhalat.powder (Trelegy Ellipta) mirtazapine 15 mg tablet 15 mg PO HS 10/17/22 12/18/22 mupirocin calcium 2 % topical cream 1 applic topical BID 12/18/22 12/18/22 Results & Data (ED) Vital Signs Vital Signs - 24 hr 12/18/22 16:55 12/18/22 17:25 12/18/22 17:30 Temperature 36.8 C Temperature Source Temporal Artery Scan Pulse Rate 74 68 62 Pulse Rate from SpO2 Sensor Respiratory Rate 20 18 Respiratory Effort / Characteristics Non-Labored Spontaneous Respiratory Depth Normal Blood Pressure 230/129 H 201/123 H Blood Pressure Mean 162 149 Pulse Oximetry 98 98 Oxygen Delivery Method Room Air Room Air Sepsis Recent Fever Within 48 Hours No Sepsis New/Unexplained Change in Mental Status No Sepsis Action Taken by Nursing No Action Required 12/18/22 18:00 12/18/22 18:29 12/18/22 19:00 Temperature Temperature Source Pulse Rate 59 L 66 69 Pulse Rate from SpO2 Sensor 70 Respiratory Rate 17 20 18 Respiratory Effort / Characteristics Respiratory Depth Blood Pressure 208/115 H 193/109 H 223/138 H Blood Pressure Mean 146 137 166 Pulse Oximetry 97 99 99 Oxygen Delivery Method Room Air Room Air Sepsis Recent Fever Within 48 Hours Sepsis New/Unexplained Change in Mental Status Sepsis Action Taken by Nursing 12/18/22 19:12 12/18/22 19:13 12/18/22 19:13 Temperature Temperature Source Pulse Rate 68 67 Pulse Rate from SpO2 Sensor Respiratory Rate 18 16 Respiratory Effort / Characteristics Respiratory Depth Blood Pressure 206/113 H Blood Pressure Mean 172 Pulse Oximetry Oxygen Delivery Method Sepsis Recent Fever Within 48 Hours Sepsis New/Unexplained Change in Mental Status Sepsis Action Taken by Nursing 12/18/22 19:30 12/18/22 19:37 12/18/22 19:37 Temperature Temperature Source Pulse Rate 67 65 Pulse Rate from SpO2 Sensor Respiratory Rate 19 15 Respiratory Effort / Characteristics Respiratory Depth Blood Pressure 201/110 H Blood Pressure Mean 135 Pulse Oximetry Oxygen Delivery Method Sepsis Recent Fever Within 48 Hours Sepsis New/Unexplained Change in Mental Status Sepsis Action Taken by Nursing 12/18/22 19:42 12/18/22 20:00 Temperature Temperature Source Pulse Rate 68 65 Pulse Rate from SpO2 Sensor 66 65 Respiratory Rate 15 22 Respiratory Effort / Characteristics Respiratory Depth Blood Pressure 208/119 H 173/108 H Blood Pressure Mean 148 129 Pulse Oximetry 99 98 Oxygen Delivery Method Sepsis Recent Fever Within 48 Hours Sepsis New/Unexplained Change in Mental Status Sepsis Action Taken by Nursing Laboratory Data 12/18/22 17:12 12/18/22 17:12 Lab Results 12/18/22 12/18/22 12/18/22 Range/Units 17:12 17:12 17:12 WBC 7.39 (4.8-10.8) K/ul RBC 4.87 (4.70-6.10) M/uL Hgb 15.6 (14.0-18.0) g/dl POC Hgb (14.0-18.0) g/dl Hct 44.5 (42.0-52.0) % POC Hct (42-52) % MCV 91.4 (80.0-100.0) fL MCH 32.0 (25.0-34.0) pg MCHC 35.1 (32.0-36.0) g/dL RDW Std Deviation 43.1 (36.4-46.3) fL RDW Coeff of Lakesha 12.9 (11.5-14.5) % Plt Count 182 (130-400) K/uL MPV 11.0 (9.4-12.4) fL Immature Gran % (Auto) 0.1 % Neut % (Auto) 58.6 % Lymph % (Auto) 32.2 % Washburn % (Auto) 7.2 % Eos % (Auto) 1.5 % Baso % (Auto) 0.4 % Neut # (Auto) 4.33 (1.40-6.50) K/uL Lymph # (Auto) 2.38 (1.2-3.4) K/uL [place] # (Auto) 0.53 (0.11-0.59) K/uL Eos # (Auto) 0.11 (0-0.50) K/uL Baso # (Auto) 0.03 (0-0.2) K/uL Immature Gran # (Auto) 0.01 (0.01-0.20) K/uL PT 10.6 (9.0-12.0) Seconds INR 1.0 (0.9-1.1) APTT 28.5 (21.0-31.0) Seconds PTT Ratio 1.0 POC Sodium (135-144) mmol/L Sodium 139 (136-145) mmol/L POC Potassium (3.3-5.0) mmol/L Potassium 3.7 (3.5-5.1) mmol/L POC Chloride (101-112) mmol/L Chloride 106 (98-107) mmol/L Carbon Dioxide 29 (21-32) mmol/L POC Total CO2 (24-31) mmol/L Anion Gap 4 (3-11) POC Anion Gap (16-25) mmol/L POC BUN (7-18) mg/dl BUN 17 (6-23) mg/dl Creatinine 1.14 (0.6-1.4) mg/dl POC Creatinine (0.6-1.3) mg/dl Est Cr Clr Drug Dosing 57.2 ml/min Est GFR ( Amer) 74.1 ml/min Est GFR (Non-Af Amer) 63.9 ml/min BUN/Creatinine Ratio 14.9 (10-20) Glucose 98 (70-99(Fasting)) mg/dl POC Glucose (other) (70-99) mg/dl Calcium 9.1 (8.6-10.3) mg/dl POC Ioniz Calcium Marlon (1.12-1.32) mmol/l Magnesium 2.0 (1.7-2.4) mg/dl Total Bilirubin 0.5 (0.2-1.0) mg/dl AST 15 (13-39) U/L ALT 10 (7-52) U/L Alkaline Phosphatase 76 (34-104) U/L Troponin I High Sens 17.3 (0-20) pg/ml Total Protein 7.2 (6.0-8.3) gm/dl Albumin 4.6 (3.4-5.0) gm/dl Globulin 2.6 (2.5-4.0) gm/dl Albumin/Globulin Ratio 1.8 (0.9-2) SARS-CoV-2, RNA, NAAT (NEGATIVE) 12/18/22 12/18/22 Range/Units 17:18 17:23 WBC (4.8-10.8) K/ul RBC (4.70-6.10) M/uL Hgb (14.0-18.0) g/dl POC Hgb 15.6 (14.0-18.0) g/dl Hct (42.0-52.0) % POC Hct 46 (42-52) % MCV (80.0-100.0) fL MCH (25.0-34.0) pg MCHC (32.0-36.0) g/dL RDW Std Deviation (36.4-46.3) fL RDW Coeff of Lakesha (11.5-14.5) % Plt Count (130-400) K/uL MPV (9.4-12.4) fL Immature Gran % (Auto) % Neut % (Auto) % Lymph % (Auto) % [place] % (Auto) % Eos % (Auto) % Baso % (Auto) % Neut # (Auto) (1.40-6.50) K/uL Lymph # (Auto) (1.2-3.4) K/uL [place] # (Auto) (0.11-0.59) K/uL Eos # (Auto) (0-0.50) K/uL Baso # (Auto) (0-0.2) K/uL Immature Gran # (Auto) (0.01-0.20) K/uL PT (9.0-12.0) Seconds INR (0.9-1.1) APTT (21.0-31.0) Seconds PTT Ratio POC Sodium 142 (135-144) mmol/L Sodium (136-145) mmol/L POC Potassium 3.6 (3.3-5.0) mmol/L Potassium (3.5-5.1) mmol/L POC Chloride 103 (101-112) mmol/L Chloride (98-107) mmol/L Carbon Dioxide (21-32) mmol/L POC Total CO2 25 (24-31) mmol/L Anion Gap (3-11) POC Anion Gap 19.0 (16-25) mmol/L POC BUN 17 (7-18) mg/dl BUN (6-23) mg/dl Creatinine (0.6-1.4) mg/dl POC Creatinine 1.2 (0.6-1.3) mg/dl Est Cr Clr Drug Dosing ml/min Est GFR ( Amer) ml/min Est GFR (Non-Af Amer) ml/min BUN/Creatinine Ratio (10-20) Glucose (70-99(Fasting)) mg/dl POC Glucose (other) 99 (70-99) mg/dl Calcium (8.6-10.3) mg/dl POC Ioniz Calcium Marlon 1.15 (1.12-1.32) mmol/l Magnesium (1.7-2.4) mg/dl Total Bilirubin (0.2-1.0) mg/dl AST (13-39) U/L ALT (7-52) U/L Alkaline Phosphatase (34-104) U/L Troponin I High Sens (0-20) pg/ml Total Protein (6.0-8.3) gm/dl Albumin (3.4-5.0) gm/dl Globulin (2.5-4.0) gm/dl Albumin/Globulin Ratio (0.9-2) SARS-CoV-2, RNA, NAAT NEGATIVE (NEGATIVE) Administered Medications Discontinued Medications Clonidine HCl (Clonidine Hcl 0.1 Mg Tab) 0.1 mg PO NOW STA Stop: 12/18/22 19:28 Last Admin: 12/18/22 19:42 Dose: 0.1 mg Documented By: OLEG Hydralazine HCl (Hydralazine Hcl 20 Mg/Ml Vial) 10 mg IV NOW STA Stop: 12/18/22 18:12 Last Admin: 12/18/22 18:18 Dose: 10 mg Documented By: DENIZ Sodium Chloride (Nss) 500 mls @ 999 mls/hr IV .Q31M ONE Stop: 12/18/22 17:40 Last Infusion: 12/18/22 18:28 Dose: 0 mls/hr Documented By: Admin: 12/18/22 17:46 Dose: 999 mls/hr Documented By: DENIZ Ioversol (Optiray 320 500ml) 113 ml IV ONCE ONE Stop: 12/18/22 17:46 Last Admin: 12/18/22 17:45 Dose: 113 ml Documented By: LUIS Imaging Data Radiologist's Impression: Chest X-Ray 12/18/22 17:07 XR chest 1V portable HISTORY: 72 years-old Male neuro deficit, acute stroke suspected COMPARISON: 01/27/2022 TECHNIQUE: AP view of the chest FINDINGS: Cardiomediastinal and hilar silhouettes are unchanged. Mild chronic interstitial coarsening. 1.5 cm nodular density projects over the right lung base. No pneumothorax, pleural effusion, airspace consolidation or overt pulmonary edema. Emphysema with chronic interstitial coarsening. IMPRESSION: 1. Emphysema without acute process. 2. 1.5 cm nodular density projects over the right lung base. This may be secondary to summation density versus pulmonary nodule. Attention on follow-up recommended. ACT 112: Negative or not required by law. The above report was generated using voice recognition software. It may contain grammatical, syntax or spelling errors. Electronically signed by: Pascual Rodriguez M.D. 12/18/2022 6:[address] 12/18/22 17:07 CT angio head w con, CT angio neck with con, CT head/brain wo con CLINICAL HISTORY: 72 years-old Male with neuro deficit, acute stroke suspected. Acute strokelike symptoms COMPARISON STUDY: Brain MRI, CTA head and neck 07/27/2020 TECHNIQUE: Unenhanced axial CT scan of the brain is performed. Subsequently, following the IV administration of 113 cc of Optiray, CT angiogram of the head and neck was performed from the aortic arch to the skull apex. Images are reviewed in the axial, sagittal, and coronal planes. 3-D MIPS images are created and assessed. IV contrast was administered without complication. All measurements were obtained according to NASCET criteria. A dose lowering technique was utilized adhering to the principles of ALARA. CT DOSE: 1153.70 mGy.cm FINDINGS: CT BRAIN: There is no acute intracranial hemorrhage, midline shift, hydrocephalus, intracranial mass, territorial ischemia or abnormal extra-axial collections. No abnormal intra-axial or extra-axial enhancement. Involutional changes with chronic microvascular ischemic disease. Cerebral vascular calcifications. Mastoid air cells and middle ear cavities are clear. No calvarial fracture. Paranasal sinuses are clear. CT ANGIOGRAM OF THE BRAIN: Three-vessel morphology of the thoracic aortic arch. Patency of the innominate and image subclavian arteries. The common carotid arteries are widely. Mild to moderate atherosclerotic plaque the carotid call results in less than 50% stenosis bilaterally. The bilateral anterior and middle cerebral arteries are also patent. Dominant right vertebral artery. The vertebrobasilar system and posterior cerebral arteries are widely patent. There is no aneurysm, high-grade stenosis, or proximal branch occlusion identified. Dural sinuses appear patent. Severe pulmonary emphysema. No pneumothorax. Unremarkable soft tissues. Prior bilateral lens repair. Degenerative changes of the spine. IMPRESSION: 1. No acute intracranial abnormality identified. 2. Unremarkable CTA of the head and neck. 3. Pulmonary emphysema. ACT 112: Negative or not required by law. The above report was generated using voice recognition software. It may contain grammatical, syntax or spelling errors. Electronically signed by: Pascual Rodriguez M.D. 12/18/2022 5:59 PM Head CTA 12/18/22 17:07 CT angio head w con, CT angio neck with con, CT head/brain wo con CLINICAL HISTORY: 72 years-old Male with neuro deficit, acute stroke suspected. Acute strokelike symptoms COMPARISON STUDY: Brain MRI, CTA head and neck 07/27/2020 TECHNIQUE: Unenhanced axial CT scan of the brain is performed. Subsequently, following the IV administration of 113 cc of Optiray, CT angiogram of the head and neck was performed from the aortic arch to the skull apex. Images are reviewed in the axial, sagittal, and coronal planes. 3-D MIPS images are created and assessed. IV contrast was administered without complication. All measurements were obtained according to NASCET criteria. A dose lowering technique was utilized adhering to the principles of ALARA. CT DOSE: 1153.70 mGy.cm FINDINGS: CT BRAIN: There is no acute intracranial hemorrhage, midline shift, hydrocephalus, intracranial mass, territorial ischemia or abnormal extra-axial collections. No abnormal intra-axial or extra-axial enhancement. Involutional changes with chronic microvascular ischemic disease. Cerebral vascular calcifications. Mastoid air cells and middle ear cavities are clear. No calvarial fracture. Paranasal sinuses are clear. CT ANGIOGRAM OF THE BRAIN: Three-vessel morphology of the thoracic aortic arch. Patency of the innominate and image subclavian arteries. The common carotid arteries are widely. Mild to moderate atherosclerotic plaque the carotid call results in less than 50% stenosis bilaterally. The bilateral anterior and middle cerebral arteries are also patent. Dominant right vertebral artery. The vertebrobasilar system and posterior cerebral arteries are widely patent. There is no aneurysm, high-grade stenosis, or proximal branch occlusion identified. Dural sinuses appear patent. Severe pulmonary emphysema. No pneumothorax. Unremarkable soft tissues. Prior bilateral lens repair. Degenerative changes of the spine. IMPRESSION: 1. No acute intracranial abnormality identified. 2. Unremarkable CTA of the head and neck. 3. Pulmonary emphysema. ACT 112: Negative or not required by law. The above report was generated using voice recognition software. It may contain grammatical, syntax or spelling errors. Electronically signed by: Pascual Rodriguez M.D. 12/18/2022 5:59 PM Neck CTA 12/18/22 17:07 CT angio head w con, CT angio neck with con, CT head/brain wo con CLINICAL HISTORY: 72 years-old Male with neuro deficit, acute stroke suspected. Acute strokelike symptoms COMPARISON STUDY: Brain MRI, CTA head and neck 07/27/2020 TECHNIQUE: Unenhanced axial CT scan of the brain is performed. Subsequently, following the IV administration of 113 cc of Optiray, CT angiogram of the head and neck was performed from the aortic arch to the skull apex. Images are reviewed in the axial, sagittal, and coronal planes. 3-D MIPS images are created and assessed. IV contrast was administered without complication. All measurements were obtained according to NASCET criteria. A dose lowering technique was utilized adhering to the principles of ALARA. CT DOSE: 1153.70 mGy.cm FINDINGS: CT BRAIN: There is no acute intracranial hemorrhage, midline shift, hydrocephalus, intracranial mass, territorial ischemia or abnormal extra-axial collections. No abnormal intra-axial or extra-axial enhancement. Involutional changes with chronic microvascular ischemic disease. Cerebral vascular calcifications. Mastoid air cells and middle ear cavities are clear. No calvarial fracture. Paranasal sinuses are clear. CT ANGIOGRAM OF THE BRAIN: Three-vessel morphology of the thoracic aortic arch. Patency of the innominate and image subclavian arteries. The common carotid arteries are widely. Mild to moderate atherosclerotic plaque the carotid call results in less than 50% stenosis bilaterally. The bilateral anterior and middle cerebral arteries are also patent. Dominant right vertebral artery. The vertebrobasilar system and posterior cerebral arteries are widely patent. There is no aneurysm, high-grade stenosis, or proximal branch occlusion identified. Dural sinuses appear patent. Severe pulmonary emphysema. No pneumothorax. Unremarkable soft tissues. Prior bilateral lens repair. Degenerative changes of the spine. IMPRESSION: 1. No acute intracranial abnormality identified. 2. Unremarkable CTA of the head and neck. 3. Pulmonary emphysema. ACT 112: Negative or not required by law. The above report was generated using voice recognition software. It may contain grammatical, syntax or spelling errors. Electronically signed by: Pascual Rodriguez M.D. 12/18/2022 5:59 PM Discharge Plan Visit Data Chief Complaint: Referred by Doctor Stated Complaint: REF BY DOC, PAIN IN FACE/NECK, SUSPECTED STROKE ED Provider: Pepe Owens Discharge Problem: Dizziness, HTN (hypertension), Leg weakness Forms Stand Alone Forms: [facility] mPortal Prescriptions Prescriptions: No Action bupropion HCl 150 mg Tablet Sustained-Release 12 Hr 150 mg PO BID carvedilol 6.25 mg Tablet 6.25 mg PO BID Rx Instructions: Take with food albuterol sulfate 2.5 mg /3 mL (0.083 %) Solution For Nebulization 2.5 mg INHALATION Q4 PRN (Reason: Wheezing) aspirin 81 mg Tablet,Delayed Release (Dr/Ec) 81 mg PO QAM ropinirole 0.5 mg Tablet 0.5 mg PO TID Rx Instructions: Take with food nitroglycerin 0.4 mg Tablet, Sublingual 0.4 mg sublingual UD PRN (Reason: Angina) furosemide 20 mg Tablet 20 mg PO DAILY PRN (Reason: Edema) albuterol sulfate [ProAir HFA] 90 mcg/actuation Hfa Aerosol Inhaler 2 puff INHALATION QID PRN (Reason: Shortness Of Breath) ezetimibe 10 mg Tablet 10 mg PO QAM dutasteride 0.5 mg Capsule 0.5 mg PO QAM rosuvastatin 40 mg Tablet 40 mg PO QAM pregabalin 75 mg Capsule 75 mg PO QAM pregabalin 75 mg Capsule 150 mg PO QPM omeprazole 20 mg Tablet,Delayed Release (Dr/Ec) 20 mg PO BID febuxostat 40 mg Tablet 40 mg PO QAM PRN (Reason: GOUT) prasugrel [Effient] 10 mg Tablet 10 mg PO QAM Patient Comments: WAS INSTRUCTED TO STOP 7 DAYS PRIOR TO PROCEDURE. isosorbide mononitrate 60 mg Tablet Extended Release 24 Hr 60 mg PO QAM lisinopril 40 mg Tablet 40 mg PO QAM acetaminophen [Tylenol] 325 mg Tablet 325 mg PO Q6H PRN (Reason: Pain) buspirone 5 mg tablet 5 mg PO BID spironolactone 25 mg tablet 12.5 mg PO MOWEFR@0900 Rx Instructions: SUNDAY, SUNDAY, SUNDAY ONLY amlodipine 5 mg Tablet 5 mg PO QAM famotidine 20 mg Tablet 20 mg PO QAM cyanocobalamin (vitamin B-12) 1,000 mcg/mL Solution 1,000 mcg IM UD Rx Instructions: ONCE EVERY 4 WEEKS mirtazapine 15 mg Tablet 15 mg PO HS Trelegy Ellipta 200-62.5-25 mcg Blister With Device 1 inh INHALATION QAM mupirocin calcium 2 % cream 1 applic TOPICAL BID Referrals Referrals: Leon Galvan DO [Primary Care Provider] -
[2022-12-18 17:28] LABS: Basophils # (auto) 0.03 K/uL (0-0.2); Basophils % (auto) 0.4 %; Eosinophils # (auto) 0.11 K/uL (0-0.50); Eosinophils % (auto) 1.5 %; Hematocrit (blood only) 44.5 % (42.0-52.0); Hemoglobin 15.6 g/dl (14.0-18.0); Immature Granulocytes # (auto) 0.01 K/uL (0.01-0.20); Immature Granulocytes % (auto) 0.1 %; Lymphocytes # (auto) 2.38 K/uL (1.2-3.4); Lymphocytes % (auto) 32.2 %; Mean Corpuscular Hgb Conc 35.1 g/dL (32.0-36.0); Mean Corpuscular Volume 91.4 fL (80.0-100.0); Monocytes # (auto) 0.53 K/uL (0.11-0.59); Monocytes % (auto) 7.2 %; Neutrophils # (auto) 4.33 K/uL (1.40-6.50); Neutrophils % (auto) 58.6 %; Platelet Count 182 K/uL (130-400); RDW Coefficient of Variation 12.9 % (11.5-14.5); RDW Standard Deviation 43.1 fL (36.4-46.3); Red Blood Count 4.87 M/uL (4.70-6.10); White Blood Count 7.39 K/ul (4.8-10.8)
[2022-12-18 17:30] LABS: iSTAT Creatinine 1.2 mg/dl (0.6-1.3); iSTAT Hemoglobin 15.6 g/dl (14.0-18.0); iSTAT Ionized Calcium 1.15 mmol/l (1.12-1.32); iSTAT Potassium 3.6 mmol/L (3.3-5.0)
[2022-12-18 17:45] LABS: Albumin Globulin Ratio 1.8 (0.9-2); Albumin Level 4.6 gm/dl (3.4-5.0); BUN Creatinine Ratio 14.9 (10-20); Bilirubin,Total 0.5 mg/dl (0.2-1.0); Calcium 9.1 mg/dl (8.6-10.3); Creatinine Clr Calc Pharmacy 57.2 ml/min; Est GFR (African American) 74.1 ml/min; Est GFR (Non-African American) 63.9 ml/min; Globulin 2.6 gm/dl (2.5-4.0); Potassium 3.7 mmol/L (3.5-5.1); Total Protein 7.2 gm/dl (6.0-8.3)
[2022-12-18] MEDS ORDERED: OPTIRAY 320 500ml IV ONE (17:45)
[2022-12-18 17:52] LABS: Troponin I High Sensitivity 17.3 pg/ml (0-20)
--- NOTE | 2022-12-18 18:01 | CT Scan Report ---
CT angio head w con, CT angio neck with con, CT head/brain wo con CLINICAL HISTORY: 72 years-old Male with neuro deficit, acute stroke suspected. Acute strokelike s ymptoms COMPARISON STUDY: Brain MRI, CTA head and neck 07/27/2020 TECHNIQUE: Unenhanced axial CT scan of the brain is performed. Subsequently, following the IV adminis tration of 113 cc of Optiray, CT angiogram of the head and neck was performed from the aortic arch to the skull apex. Images are reviewed in the axial, sagittal, and coronal planes. 3-D MIPS images are created and assessed. IV contrast was administered without complication. All measurements were obtain ed according to NASCET criteria. A dose lowering technique was utilized adhering to the principles of ALARA. CT DOSE: 1153.70 mGy.cm FINDINGS: CT BRAIN: There is no acute intracranial hemorrhage, midline shift, hydrocephalus, intracranial mass, territori al ischemia or abnormal extra-axial collections. No abnormal intra-axial or extra-axial enhancement. Involutional changes with chronic microvascular ischemic disease. Cerebral vascular calcifications. Mastoid air cells and middle ear cavities are clear. No calvarial fracture. Paranasal sinuses are maame ar. CT ANGIOGRAM OF THE BRAIN: Three-vessel morphology of the thoracic aortic arch. Patency of the innominate and image subclavian a rteries. The common carotid arteries are widely. Mild to moderate atherosclerotic plaque the carotid call results in less than 50% stenosis bilaterally. The bilateral anterior and middle cerebral arteri es are also patent. Dominant right vertebral artery. The vertebrobasilar system and posterior cerebra l arteries are widely patent. There is no aneurysm, high-grade stenosis, or proximal branch occlusion identified. Dural sinuses appear patent. Severe pulmonary emphysema. No pneumothorax. Unremarkable soft tissues. Prior bilateral lens repair. Degenerative changes of the spine. IMPRESSION: 1. No acute intracranial abnormality identified. 2. Unremarkable CTA of the head and neck. 3. Pulmonary emphysema. ACT 112: Negative or not required by law. The above report was generated using voice recognition software. It may contain grammatical, syntax o r spelling errors. Electronically signed by: Pascual Rodriguez M.D. 12/18/2022 5:59 PM
[2022-12-18 18:04] LABS: Partial Thromboplastin Time 28.5 Seconds (21.0-31.0); Prothrombin Time 10.6 Seconds (9.0-12.0)
--- NOTE | 2022-12-18 18:05 | XRay Report ---
XR chest 1V portable HISTORY: 72 years-old Male neuro deficit, acute stroke suspected COMPARISON: 01/27/2022 TECHNIQUE: AP view of the chest FINDINGS: Cardiomediastinal and hilar silhouettes are unchanged. Mild chronic interstitial coarsening. 1.5 cm n odular density projects over the right lung base. No pneumothorax, pleural effusion, airspace consoli dation or overt pulmonary edema. Emphysema with chronic interstitial coarsening. IMPRESSION: 1. Emphysema without acute process. 2. 1.5 cm nodular density projects over the right lung base. This may be secondary to summation densi ty versus pulmonary nodule. Attention on follow-up recommended. ACT 112: Negative or not required by law. The above report was generated using voice recognition software. It may contain grammatical, syntax o r spelling errors. Electronically signed by: Pascual Rodriguez M.D. 12/18/2022 6:02 PM
[2022-12-18] MEDS ORDERED: hydrALAZINE HCL 20 MG/ML VIAL IV STA ×2 (18:11→19:55)
--- NOTE | 2022-12-18 18:49 | History & Physical Report ---
Date of Service December 18, 2022 Assessment & Plan (1) Hypertensive emergency: Plan: Ongoing symptoms of left sided weakness, headache, blurry vision, ambulatory dysfunction in setting of critically elevated BP for the past 3 days. Hydralazine started for BP given in the ER followed by clonidine. BP from 230/129 to 193/109 and back up to 222 to 173 systolic on repeat check. Nicardipine considered but would require and ICU admission and MAP is trending down with current therapy. Will cont PCU for now overnight with close monitoring and low threshold to transfer to ICU. UA pending, trop negative, EKG with abnormalities including TWI in septal leads and anterior and lateral q waves. CT head with angiogram of head and neck are negative for acute intracranial abnormality. CXR without congestion or other acute finding. Cont parenteral control of hypertension overnight as needed. Cont home lisinopril/spironolactone/amlodipine. Consult cardiology given elevated blood pressure, significant history of cardiac disease and new EKG abnormalities. Trop is negative and will trend overnight. Echo ordered, MRI brain ordered given stroke like symptoms which have now improved. Therapy consult. Consult neurology pending MRI findings and clinical improvement overnight. (2) Smoker: Plan: Smoking cessation strongly recommended. Increases risk for stroke and ME, and he is aware of this. (3) Weakness: Plan: Patient reports left sided weakness which is not appreciated on current exam. He was able to ambulate to and from the bathroom independently with some abnormal gait noted. PT/OT to evaluate. (4) Headache: Plan: Likely related to persistent elevation of blood pressure. Expect this to improve with blood pressure correction. (5) CAD (coronary artery disease): Plan: Chronic, stable. History of ischemic cardiomyopathy with an LVEF of 45 to 49%. History of CAD status post multiple PCI's to the LAD dating back to 10/08/2004 on aspirin and prasugrel. 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 (6) COPD (chronic obstructive pulmonary disease): Plan: chronic, not in exacerbation. Patient is still smoking. Cont Trelegy per home regimen. Smoking cessation strongly recommended. (7) Ischemic cardiomyopathy: Plan: Chronic, stable. Patient is euvolemic and appears compensated. Continue medical management with aspirin, prasugrel, spironolactone, Lasix as needed, carvedilol, Crestor. Echo pending. (8) On home oxygen therapy: Plan: at night (9) BPH (benign prostatic hypertrophy): Plan: chronic, stable. Cont dutasteride per home regimen. (10) Pulmonary nodule: Plan: chronic, followup imaging in 3 months or less with active smoking. (11) Dyslipidemia: Plan: chronic, will repeat lipid panel in am. Cont crestor per home regimen. (12) Restless legs syndrome (RLS): Plan: chronic, stable. Cont home ropinirole and Lyrica per home regimen. Lovenox Full Code Dispo- PCU Linda Duron DO [place] [facility] History of Present Illness Chief Complaint: Referred by physician Primary Care Provider: Leon Galvan DO 72-year-old man presents on referral from outpatient primary care's office after blood pressure was found to be 203/119. Patient had presented reporting dizziness with headaches falls and difficulty with balance along with left-sided weakness for 3 days. He has a known history of CVA coronary disease with an ME and an LAD stent status post CABG. He has a history of low cardiac ejection fraction. He denied any vision loss, slurred speech or difficulty swallowing. Chronic shortness of breath was stable and he had no chest pain. On arrival to the ER he reported a left-sided headache. He reported falling multiple times with weakness in his right lower leg. On physical exam he was noted to have no gross focal neurologic deficits. He is on aspirin and prasugrel as well as Crestor. Initial work-up includes a CBC, coag panel, CHEM panel within normal limits. Liver panel within normal limits and troponin is normal. Imaging including head and neck CTA and head CT revealed no acute intracranial abnormality. Chest x-ray is consistent with pulmonary emphysema without acute process with a 1.5 cm pulmonary nodule. He reports to me that he has an ongoing left sided headache with bilateral blurry vision x 3 days. Denies chest pain, worsened SOB and no respiratory symptoms. He denies any recent changes in diet and denies any recent medication changes. He is still actively smoking, denies alcohol use, marijuana use or use of other recreational drugs. 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 Denies laying hardscape, planting trees, or other recent big jobs. He denies issues with urination, no abdominal pain, no fevers, chills. He was given hydralazine 10mg IV x 1 with slight improvement in BP that went right back to 222/118 on the left, 206/113 on the right. Nicardipine drip was considered given ongoing headache and blurry vision with recent left sided weakness that is still present but improved per patient. Spoke with ICU provider and decided on a plan to give clonidine 0.1mg PO now followed by a nicardipine drip. RN reported BP decreased to 201 systolic. After further discussion, we decided to place him in PCU and monitor the effects of the clonidine. Allergies Allergy/AdvReac Type Severity Reaction Status Date / Time codeine Allergy Mild "SKIN Verified 10/20/22 09:34 STARTS FALLING OFF" Home Medications Medication Instructions Recorded Confirmed Type albuterol sulfate 2.5 mg/3 mL 2.5 mg inhalation Q4 PRN Wheezing 01/13/19 3 History (0.083 %) solution for nebulization albuterol sulfate 90 mcg/actuation 2 puff inhalation QID PRN 01/13/19 12/18/22 History aerosol inhaler (ProAir HFA) Shortness Of Breath aspirin 81 mg tablet,delayed 81 mg PO QAM 01/13/19 12/18/22 History release bupropion HCl 150 mg tablet,12 hr 150 mg PO BID 01/13/19 12/18/22 History sustained-release carvedilol 6.25 mg tablet 6.25 mg PO BID 01/13/19 12/18/22 History dutasteride 0.5 mg capsule 0.5 mg PO QAM 01/13/19 12/18/22 History ezetimibe 10 mg tablet 10 mg PO QAM 01/13/19 12/18/22 History febuxostat 40 mg tablet 40 mg PO QAM PRN GOUT 01/13/19 12/18/22 History furosemide 20 mg tablet 20 mg PO DAILY PRN Edema 01/13/19 12/18/22 History nitroglycerin 0.4 mg sublingual 0.4 mg sublingual UD PRN Angina 01/13/19 12/18/22 History tablet omeprazole 20 mg tablet,delayed 20 mg PO BID 01/13/19 12/18/22 History release prasugrel 10 mg tablet (Effient) 10 mg PO QAM 01/13/19 12/18/22 History pregabalin 75 mg capsule 75 mg PO QAM 01/13/19 12/18/22 History pregabalin 75 mg capsule 150 mg PO QPM 01/13/19 12/18/22 History ropinirole 0.5 mg tablet 0.5 mg PO TID 01/13/19 12/18/22 History rosuvastatin 40 mg tablet 40 mg PO QAM 01/13/19 12/18/22 History isosorbide mononitrate 60 mg 60 mg PO QAM 06/23/19 12/18/22 History tablet,extended release 24 hr lisinopril 40 mg tablet 40 mg PO QAM 06/23/19 12/18/22 History acetaminophen 325 mg tablet 325 mg PO Q6H PRN Pain 06/30/19 12/18/22 History (Tylenol) buspirone 5 mg tablet 5 mg PO BID 07/27/20 12/18/22 History spironolactone 25 mg tablet 12.5 mg PO MOWEFR@0900 07/27/20 12/18/22 History amlodipine 5 mg tablet 5 mg PO QAM 10/17/22 12/18/22 History cyanocobalamin (vitamin B-12) 1,000 mcg IM UD 10/17/22 12/18/22 History 1,000 mcg/mL injection solution famotidine 20 mg tablet 20 mg PO QAM 10/17/22 12/18/22 History fluticasone fur. 200 mcg-umeclid 1 inh inhalation QAM 10/17/22 12/18/22 History 62.5 mcg-vilant 25 mcg inhalat.powder (Trelegy Ellipta) mirtazapine 15 mg tablet 15 mg PO HS 10/17/22 12/18/22 History mupirocin calcium 2 % topical cream 1 applic topical BID 12/18/22 12/18/22 History Past Med/Surg History Medical History Asthma Chronic obstructive pulmonary disease GERD (gastroesophageal reflux disease) Hx of gout Hyperlipidemia Hypertension Myocardial Infarction x4--last 2016--follows with Dr. 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 History of colonoscopy History of cystoscopy History of esophagogastroduodenoscopy (EGD) History of heart artery stent TOTAL OF 4 STENTS PLACED DURING 4 CATH PROCEDURES; last 2016 History of lumbosacral spine surgery History of tonsillectomy History of tooth extraction all teeth Family History Sister Family history of diabetes mellitus Other No family history of adverse response to anesthesia Social History Smoking Status: Current every day smoker Cigarettes Per Day: 2; Second Hand Exposure: Yes (CURRENTLY, AND BROTHER IN LAW BOTH SMOKE IN HOUSE); Do You Dip or Chew Tobacco: No; Hx Alcohol Use: No Hx Substance Use: No Preferred Language: Icelandic Communication Ability: Effective Wild Animal Caretaker Required: No Beliefs That Will Affect Care: None marital status: Current Living Situation: Spouse and Family Current Living Situation Comment: lives with and brother in law Feels Safe at Home: Yes Assistive Devices: Denture - Upper, Denture - Lower and Oxygen - at Night Review of Systems Review of Systems: All systems were reviewed and negative except as indicated on HPI above. Physical Exam Physical Exam: CONSTITUTIONAL: WNWD, vitals as above, generally well-appearing, slightly tremulous EYES: EOMI bilaterally, PERRL, injected conjunctivae bilaterally with watery irritated eyes, no scleral icterus, no fundoscopic abnormality (exam limited without dilation) ENT: external ear and nose normal, oropharynx clear, mucous membranes are moist NECK: trachea midline RESPIRATORY: wheezing throughout L>R, no crackles or rales, normal respiratory effort, no hypoxia CARDIOVASCULAR: regular rate and rhythm, S1 and 2 heard without murmurs, gallops or rubs, no JVD, no peripheral edema CHEST: inspection of chest was normal GASTROINTESTINAL: soft, nontender,ND, no guarding MUSCULOSKELETAL: strength 5/5 throughout, head is normocephalic and atraumatic, SKIN: warm and dry NEUROLOGIC: brachioradialis and patellar DTRs 2+ bilat. PERRL, EOMI, no facial palsy, no dysarthria. Touch, pain and proprioception normal. CN 2-12 grossly in tact, no sensory deficit, normal cognition, normal speech PSYCHIATRIC: alert cooperative and oriented to person, place and time. Euthymic mood, makes good eye contact, language grossly intact, recent and remote memory grossly intact. Results & Data Results & Data Vital Signs (Past 12 Hours) Vital Signs Temp Pulse Resp BP Pulse Ox O2 Del Method 12/18/22 18:29 66 20 193/109 H 99 Room Air 12/18/22 18:00 59 L 17 208/115 H 97 Room Air 12/18/22 17:30 62 18 201/123 H 98 Room Air 12/18/22 17:25 68 12/18/22 16:55 36.8 C 74 20 230/129 H 98 Room Air Laboratory Results Short CBC 12/18/22 Range/Units 17:12 WBC 7.39 (4.8-10.8) K/ul Hgb 15.6 (14.0-18.0) g/dl Hct 44.5 (42.0-52.0) % Plt Count 182 (130-400) K/uL BMP 12/18/22 17:12 Sodium 139 Potassium 3.7 Chloride 106 Carbon Dioxide 29 BUN 17 Creatinine 1.14 Glucose 98 Calcium 9.1 Liver Function 12/18/22 Range/Units 17:12 Total Bilirubin 0.5 (0.2-1.0) mg/dl AST 15 (13-39) U/L ALT 10 (7-52) U/L Alkaline Phosphatase 76 (34-104) U/L Albumin 4.6 (3.4-5.0) gm/dl Diagnostic Findings Chest X-Ray 12/18/22 17:07 XR chest 1V portable HISTORY: 72 years-old Male neuro deficit, acute stroke suspected COMPARISON: 01/27/2022 TECHNIQUE: AP view of the chest FINDINGS: Cardiomediastinal and hilar silhouettes are unchanged. Mild chronic interstitial coarsening. 1.5 cm nodular density projects over the right lung base. No pneumothorax, pleural effusion, airspace consolidation or overt pulmonary edema. Emphysema with chronic interstitial coarsening. IMPRESSION: 1. Emphysema without acute process. 2. 1.5 cm nodular density projects over the right lung base. This may be secondary to summation density versus pulmonary nodule. Attention on follow-up recommended. ACT 112: Negative or not required by law. The above report was generated using voice recognition software. It may contain grammatical, syntax or spelling errors. Electronically signed by: Pascual Rodriguez M.D. 12/18/2022 6:[address] 12/18/22 17:07 CT angio head w con, CT angio neck with con, CT head/brain wo con CLINICAL HISTORY: 72 years-old Male with neuro deficit, acute stroke suspected. Acute strokelike symptoms COMPARISON STUDY: Brain MRI, CTA head and neck 07/27/2020 TECHNIQUE: Unenhanced axial CT scan of the brain is performed. Subsequently, following the IV administration of 113 cc of Optiray, CT angiogram of the head and neck was performed from the aortic arch to the skull apex. Images are reviewed in the axial, sagittal, and coronal planes. 3-D MIPS images are created and assessed. IV contrast was administered without complication. All measurements were obtained according to NASCET criteria. A dose lowering technique was utilized adhering to the principles of ALARA. CT DOSE: 1153.70 mGy.cm FINDINGS: CT BRAIN: There is no acute intracranial hemorrhage, midline shift, hydrocephalus, intracranial mass, territorial ischemia or abnormal extra-axial collections. No abnormal intra-axial or extra-axial enhancement. Involutional changes with chronic microvascular ischemic disease. Cerebral vascular calcifications. Mastoid air cells and middle ear cavities are clear. No calvarial fracture. Paranasal sinuses are clear. CT ANGIOGRAM OF THE BRAIN: Three-vessel morphology of the thoracic aortic arch. Patency of the innominate and image subclavian arteries. The common carotid arteries are widely. Mild to moderate atherosclerotic plaque the carotid call results in less than 50% stenosis bilaterally. The bilateral anterior and middle cerebral arteries are also patent. Dominant right vertebral artery. The vertebrobasilar system and posterior cerebral arteries are widely patent. There is no aneurysm, high-grade stenosis, or proximal branch occlusion identified. Dural sinuses appear patent. Severe pulmonary emphysema. No pneumothorax. Unremarkable soft tissues. Prior bilateral lens repair. Degenerative changes of the spine. IMPRESSION: 1. No acute intracranial abnormality identified. 2. Unremarkable CTA of the head and neck. 3. Pulmonary emphysema. ACT 112: Negative or not required by law. The above report was generated using voice recognition software. It may contain grammatical, syntax or spelling errors. Electronically signed by: Pascual Rodriguez M.D. 12/18/2022 5:59 PM Head CTA 12/18/22 17:07 CT angio head w con, CT angio neck with con, CT head/brain wo con CLINICAL HISTORY: 72 years-old Male with neuro deficit, acute stroke suspected. Acute strokelike symptoms COMPARISON STUDY: Brain MRI, CTA head and neck 07/27/2020 TECHNIQUE: Unenhanced axial CT scan of the brain is performed. Subsequently, following the IV administration of 113 cc of Optiray, CT angiogram of the head and neck was performed from the aortic arch to the skull apex. Images are reviewed in the axial, sagittal, and coronal planes. 3-D MIPS images are created and assessed. IV contrast was administered without complication. All measurements were obtained according to NASCET criteria. A dose lowering technique was utilized adhering to the principles of ALARA. CT DOSE: 1153.70 mGy.cm FINDINGS: CT BRAIN: There is no acute intracranial hemorrhage, midline shift, hydrocephalus, intracranial mass, territorial ischemia or abnormal extra-axial collections. No abnormal intra-axial or extra-axial enhancement. Involutional changes with chronic microvascular ischemic disease. Cerebral vascular calcifications. Mastoid air cells and middle ear cavities are clear. No calvarial fracture. Paranasal sinuses are clear. CT ANGIOGRAM OF THE BRAIN: Three-vessel morphology of the thoracic aortic arch. Patency of the innominate and image subclavian arteries. The common carotid arteries are widely. Mild to moderate atherosclerotic plaque the carotid call results in less than 50% stenosis bilaterally. The bilateral anterior and middle cerebral arteries are also patent. Dominant right vertebral artery. The vertebrobasilar system and posterior cerebral arteries are widely patent. There is no aneurysm, high-grade stenosis, or proximal branch occlusion identified. Dural sinuses appear patent. Severe pulmonary emphysema. No pneumothorax. Unremarkable soft tissues. Prior bilateral lens repair. Degenerative changes of the spine. IMPRESSION: 1. No acute intracranial abnormality identified. 2. Unremarkable CTA of the head and neck. 3. Pulmonary emphysema. ACT 112: Negative or not required by law. The above report was generated using voice recognition software. It may contain grammatical, syntax or spelling errors. Electronically signed by: Pascual Rodriguez M.D. 12/18/2022 5:59 PM Neck CTA 12/18/22 17:07 CT angio head w con, CT angio neck with con, CT head/brain wo con CLINICAL HISTORY: 72 years-old Male with neuro deficit, acute stroke suspected. Acute strokelike symptoms COMPARISON STUDY: Brain MRI, CTA head and neck 07/27/2020 TECHNIQUE: Unenhanced axial CT scan of the brain is performed. Subsequently, following the IV administration of 113 cc of Optiray, CT angiogram of the head and neck was performed from the aortic arch to the skull apex. Images are reviewed in the axial, sagittal, and coronal planes. 3-D MIPS images are created and assessed. IV contrast was administered without complication. All measurements were obtained according to NASCET criteria. A dose lowering technique was utilized adhering to the principles of ALARA. CT DOSE: 1153.70 mGy.cm FINDINGS: CT BRAIN: There is no acute intracranial hemorrhage, midline shift, hydrocephalus, intracranial mass, territorial ischemia or abnormal extra-axial collections. No abnormal intra-axial or extra-axial enhancement. Involutional changes with chronic microvascular ischemic disease. Cerebral vascular calcifications. Mastoid air cells and middle ear cavities are clear. No calvarial fracture. Paranasal sinuses are clear. CT ANGIOGRAM OF THE BRAIN: Three-vessel morphology of the thoracic aortic arch. Patency of the innominate and image subclavian arteries. The common carotid arteries are widely. Mild to moderate atherosclerotic plaque the carotid call results in less than 50% stenosis bilaterally. The bilateral anterior and middle cerebral arteries are also patent. Dominant right vertebral artery. The vertebrobasilar system and posterior cerebral arteries are widely patent. There is no aneurysm, high-grade stenosis, or proximal branch occlusion identified. Dural sinuses appear patent. Severe pulmonary emphysema. No pneumothorax. Unremarkable soft tissues. Prior bilateral lens repair. Degenerative changes of the spine. IMPRESSION: 1. No acute intracranial abnormality identified. 2. Unremarkable CTA of the head and neck. 3. Pulmonary emphysema. ACT 112: Negative or not required by law. The above report was generated using voice recognition software. It may contain grammatical, syntax or spelling errors. Electronically signed by: Pascual Rodriguez M.D. 12/18/2022 5:59 PM Code Status & VTE Plan VTE Prophylaxis Plan VTE Prophylaxis will be ordered: Yes (4) Headache Headache chronicity pattern: unspecified pattern Headache type: unspecified Intractability: not intractable Qualified Code(s): R51.9 - Headache, unspecified
[2022-12-18] MEDS ORDERED: STAT IV Infusion **Titration per Protocol STA (19:27)
[2022-12-18] MEDS ORDERED: cloNIDine HCL 0.1 MG TAB PO STA (19:27)
[2022-12-18] MEDS ORDERED: niCARdipine 25 MG in SODIUM CHLORIDE 0.9% 240 ML IV SCH (19:30)
[2022-12-18] MEDS ORDERED: ALUMINUM/MAGNESIUM SUSP 30 ML UDC PO PRN (20:52)
[2022-12-18] MEDS ORDERED: ACETAMINOPHEN 325 MG TAB PO PRN (20:52)
[2022-12-18] MEDS ORDERED: POLYETHYLENE (MIRALAX) 17 GM PACK PO PRN (20:52)
[2022-12-18] MEDS ORDERED: ALBUTEROL HFA 8 GM INHALER INH PRN (20:52)
[2022-12-18] MEDS ORDERED: LORazepam 0.5 MG TAB PO ONE (21:43)
[2022-12-18] MEDS: NICOTINE 21 MG/24 HR TDSY TD SCH (22:17)
[2022-12-18] MEDS: rOPINIRole HCL 0.25 MG TABLET PO SCH (22:18)
[2022-12-18] MEDS: PANTOprazole 40 MG TAB PO SCH (22:18)
[2022-12-18] MEDS: MIRTAZAPINE TAB 15 MG TAB PO SCH (22:19)
[2022-12-18] MEDS: busPIRone 5 MG TAB PO SCH (22:19)
[2022-12-18] MEDS: carvediloL 6.25 MG TAB PO SCH (22:19)
[2022-12-18] MEDS: buPROPion SR 150 MG TABCR PO SCH (22:19)
[2022-12-18] MEDS: PREGABALIN 150 MG CAP PO SCH (22:21)
[2022-12-18 23:30] LABS: Appearance Urine Clear (Clear); Bilirubin Urine Negative (Negative); Blood Urine Negative (Negative); Color Urine Yellow; Glucose Urine UA Negative (Negative); Ketones Urine Negative (Negative); Leukocyte Esterase Urine Negative (Negative); Nitrite Urine Negative (Negative); Protein Urine Negative (Negative); Specific Gravity Urine 1.042 (1.000-1.030); Urobilinogen Urine Negative (Negative); pH Urine 7.5 (4.5-7.5)
--- NOTE | 2022-12-19 02:12 | Magnetic Resonance Report ---
Exam(s): MRI HEAD Without Contrast EXAM: MR Head Without Intravenous Contrast CLINICAL HISTORY: Reason for exam: stroke like symptoms. TECHNIQUE: Magnetic resonance images of the head/brain without intravenous contrast in multiple planes. COMPARISON: Comparison made to prior noncontrast head CT from December 18, 2022 and brain MRI from July 27, 2020. FINDINGS: Brain: Moderate nonspecific white matter changes. The flow voids at the base of the brain are intact. No mass. No hemorrhage. No acute infarct. Ventricles: Unremarkable. No ventriculomegaly. Bones/joints: Unremarkable. Sinuses: Chronic ethmoid sinusitis. No acute sinusitis. Mastoid air cells: There is a tiny amount of fluid in the left mastoid air cells. No mastoid effusion. Orbits: Bilateral lens replacements. 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 IMPRESSION: No evidence of acute intracranial pathology. Moderate nonspecific white matter changes. Electronically signed by: Alida Eaton MD 12/19/22 02:11 AM
[2022-12-19 03:35] LABS: Hematocrit (blood only) 38.4 % (42.0-52.0); Hemoglobin 13.6 g/dl (14.0-18.0); Mean Corpuscular Hemoglobin 31.8 pg (25.0-34.0); Mean Corpuscular Hgb Conc 35.4 g/dL (32.0-36.0); Mean Corpuscular Volume 89.7 fL (80.0-100.0); Mean Platelet Volume 10.9 fL (9.4-12.4); Platelet Count 178 K/uL (130-400); RDW Coefficient of Variation 13.1 % (11.5-14.5); RDW Standard Deviation 43.2 fL (36.4-46.3); Red Blood Count 4.28 M/uL (4.70-6.10); White Blood Count 7.15 K/ul (4.8-10.8)
[2022-12-19 03:54] LABS: Anion Gap 5 (3-11); BUN Creatinine Ratio 17.2 (10-20); Blood Urea Nitrogen 17 mg/dl (6-23); Calcium 8.4 mg/dl (8.6-10.3); Carbon Dioxide 26 mmol/L (21-32); Chloride 110 mmol/L (98-107); Chol HDL Ratio 5.3 (0-5); Cholesterol 202 mg/dl (0-200); Creatinine Clr Calc Pharmacy 65.9 ml/min; Est GFR (African American) 87.8 ml/min; Est GFR (Non-African American) 75.8 ml/min; Glucose 108 mg/dl (70-99(Fasting)); HDL Cholesterol 38 mg/dl; LDL Cholesterol Calculated 142 mg/dl; Potassium 3.5 mmol/L (3.5-5.1); Sodium 141 mmol/L (136-145); Triglycerides 108 mg/dl (0-150); VLDL Cholesterol 22 mg/dl (0-30)
[2022-12-19] MEDS: amLODIPine BESYLATE 5 MG TAB PO SCH (08:28)
[2022-12-19] MEDS: busPIRone 5 MG TAB PO SCH ×2 (08:29→20:28)
[2022-12-19] MEDS: ASPIRIN 81 MG ECTAB PO SCH (08:29)
[2022-12-19] MEDS: carvediloL 6.25 MG TAB PO SCH ×2 (08:29→20:29)
[2022-12-19] MEDS: buPROPion SR 150 MG TABCR PO SCH ×2 (08:29→20:29)
[2022-12-19] MEDS: ENOXAPARIN INJ 40 MG/0.4 ML SYR SQ SCH (08:30)
[2022-12-19] MEDS: FAMOTIDINE 20 MG TAB PO SCH (08:31)
[2022-12-19] MEDS: FINASTERIDE 5 MG TAB PO SCH (08:31)
[2022-12-19] MEDS: EZETIMIBE 10 MG TABLET PO SCH (08:31)
[2022-12-19] MEDS: ISOSORBIDE MONO EXTENDED REL 60 MG TABCR PO SCH (08:32)
[2022-12-19] MEDS: NICOTINE 21 MG/24 HR TDSY TD SCH (08:32)
[2022-12-19] MEDS: lisinopril 40 MG TAB PO SCH (08:32)
[2022-12-19] MEDS: PANTOprazole 40 MG TAB PO SCH ×2 (08:32→20:27)
[2022-12-19] MEDS: rOPINIRole HCL 0.25 MG TABLET PO SCH ×3 (08:33→20:28)
[2022-12-19] MEDS: ROSUVASTATIN CALCIUM 20 MG TAB PO SCH (08:33)
[2022-12-19] MEDS: FLUTICASONE FUROATE 200MCG 14 PUFFS/INHALER INH SCH (08:34)
[2022-12-19] MEDS: UMECLIDINIUM/VILANTEROL 62.5/25MCG 7 PUFFS/INHALER INH SCH (08:34)
[2022-12-19] MEDS: PREGABALIN 75 MG CAP PO SCH (08:48)
--- NOTE | 2022-12-19 08:54 | Cardiology Consultation ---
Date of Consultation December 19, 2022 Assessment & Plan (1) Hypertensive emergency: (2) Weakness: (3) CAD (coronary artery disease): (4) Chronic systolic heart failure: Plan Patient admitted for hypertensive emergency with stroke like symptoms with headache, weakness, gait instability, dizziness. Extensive head/brain imaging without acute findings. Neuro consulted and reviewed imaging. Ongoing ASA and crestor recommended. No evidence of CVA and no further imaging recommended. BP significantly elevated on arrival > 220/120. IV hydralazine and clonidine received in the ER and BP slowly improved. Oral home medications resumed and BP is well controlled this morning without additional therapies. Currently taking amlodipine 5 mg, carvedilol 6.25 mg BID, lisinopril 40 mg, isosorbide 60 mg and furosemide PRN with spironolactone 3 days per week. Strong likelihood of non compliance with mediations. IF BP trends higher, would increase amlodipine to 10 mg. He has no symptoms to suggest angina. HS troponin has been negative x3. He appears euvolemic currently. Continue diuretics and monitor. Patient has been on chronic Prasugrel since 2011 when he had acute anterior TN while in [place]. Typically this antiplatelet therapy is not continued after 1 year, but given his extensive coronary artery disease, medications were not adjusted when he returned to the area in 2013. Prasugrel is contraindicated in patient's with a history of TIA/CVA and can c ause intracranial hemorrhage in patient's over the age of 70. While this Mr. Vigil had no evidence of CVA or hemorrhage, skilled nursing use of Prasugrel is likely not recommended at this time. Would consider transitioning from Prasugrel to Plavix if dual antiplatelet therapy needs to be continued. Case discussed with Dr. Tabares. I spent a total of 65 minutes on the date of service in preparation, delivery, and documentation of the care provided to this patient, excluding any time spent in the performance of separately billed services. Jaqueline Avila PA-C Department of Cardiology, [facility] This chart was completed in part utilizing Speech Voice Recognition Software. Grammatical errors, random word insertions, pronoun errors, and incomplete sentences are an occasional consequence of this system due to software limitations, ambient noise, and hardware issues. Any formal questions or concerns about the content, text, or information contained within the body of this dictation should be directly addressed to the provider for clarification. Supervising Physician Co-Signing Physician Notes Supervising Physician Attestation: I have personally performed a history and physical examination on the patient. I agree with the physician assistant grocery's findings and plan as documented with the following additions. Subjective: At the time of my assessment patient's blood pressure well controlled. Subjective complaint is only of fatigue. MRI of the brain negative. Exam: Cardiovascular: Regular rhythm, no murmurs, no edema Pulmonary: Lungs clear to auscultation bilaterally Data: LDL cholesterol 142 Assessment and Plan: Hypertensive urgency Underlying chronic coronary heart disease without evidence of acute coronary syndrome -Question adherence to medications based on outpatient notes, and patient's LDL level of 142 despite prescribed treatment with rosuvastatin 40 mg plus ezetimibe. Blood pressure well controlled now having received his home medications. -As noted patient appears to been on chronic Effient treatment since 2011. Given concerns of increased risk of bleeding will likely take this opportunity to transition him to ASA and clopidogrel. DVT prophylaxis: ambulate as tolerated. Depending upon duration of stay, will consider starting pharmacologic therapy tomorrow. Rodolof Tabares, DO History of Present Illness Reason for Consultation: Hypertensive Emergency; History of CAD Requesting Physician: Dr. Duron Attending Physician: Dr. Tabares History of Present Illness Patient is a 72 year old male seen today in consultation at the request of Dr. Duron for hypertensive emergency on admission to [facility]. Known to [facility], former patient of Dr. Box. History includes: 1. ASCVD a. Ischemic cardiomyopathy, LVEF 45-49% b. CAD, status post multiple PCI's to the LAD, dating back to 10/08/2004. c. Repeat cath in February 2007 demonstrated a patent proximal left anterior descending stent without restenosis or obstruction, mild to moderate irregularities of the left anterior descending, left circumflex, and right coronary arteries with greatest lesion being 40% in the distal LAD. - ACS in [place] June 2012. He underwent emergent coronary intervention per report receiving a stent to unknown vessel with at least m oderate LV dysfunction per patient. -Cardiac catheterization performed in May 2014 was read as extensive stented portion of the proximal mid left anterior descending, without obstruction. Stent widely patent. Mild to moderate coronary luminal regularities and atherosclerotic diffusely, but no other obstructive disease. Mild area of myocardial bridging of the distal LAD and right coronary posterior ventricular branch. Mild hypokinesis of the mid and apical anterior hernandez. EF 55%. Normal end-diastolic pressures. 2. Hypertension 3. Hyperlipidemia 4. Diabetes 5. COPD 6. Diabetic gastroparesis 7. GERD 8. Lwoe's esophagus 9. Ongoing tobacco use 10. Lumbar radiculopathy with normal exercise ABIs 07/2018 11. History of medication noncompliance 12. Strong family history of premature CAD Patient reports he was experiencing significant dizziness, gait instability, falls, headache, upper and lower extremity weakness over the weekend. Could barely get out of bed. did not call EMS or family/friends. He went to PCP office on Sunday for evaluation and found to be significantly hypertensive with BP readings > 220/120. Given his symptoms and headache/dizziness/weakness, he was referred to ER for evaluation. In ER he was treated with IV hydralazine and clonidine. Home meds were resumed. Stroke evaluation was completed. Head CT and brain MRI were unremarkable. HS troponin negative x3. No acute EKG changes. No arrhythmias on telemetry. This morning, patient resting in bed. About to have telemed neuro visit. BP now normal with home meds this morning. Questioned Compliance with meds, but he reports he takes meds regularly? history of non compliance as outpatient He denies recent chest pain/dyspnea. No syncope or near syncope. No palpitations. No recent need for SL nitro. Allergies Allergy/AdvReac Type Severity Reaction Status Date / Time codeine Allergy Mild "SKIN Verified 10/20/22 09:34 STARTS FALLING OFF" Home Medications Medication Instructions Recorded Confirmed Type albuterol sulfate 2.5 mg/3 mL 2.5 mg inhalation Q4 PRN Wheezing 01/13/19 12/18/22 History (0.083 %) solution for nebulization albuterol sulfate 90 mcg/actuation 2 puff inhalation QID PRN 01/13/19 12/18/22 History aerosol inhaler (ProAir HFA) Shortness Of Breath aspirin 81 mg tablet,delayed 81 mg PO QAM 01/13/19 12/18/22 History release bupropion HCl 150 mg tablet,12 hr 150 mg PO BID 01/13/19 12/18/22 History sustained-release carvedilol 6.25 mg tablet 6.25 mg PO BID 01/13/19 12/18/22 History dutasteride 0.5 mg capsule 0.5 mg PO QAM 01/13/19 12/18/22 History ezetimibe 10 mg tablet 10 mg PO QAM 01/13/19 12/18/22 History febuxostat 40 mg tablet 40 mg PO QAM PRN GOUT 01/13/19 12/18/22 History furosemide 20 mg tablet 20 mg PO DAILY PRN Edema 01/13/19 12/18/22 History nitroglycerin 0.4 mg sublingual 0.4 mg sublingual UD PRN Angina 01/13/19 12/18/22 History tablet omeprazole 20 mg tablet,delayed 20 mg PO BID 01/13/19 12/18/22 History release prasugrel 10 mg tablet (Effient) 10 mg PO QAM 01/13/19 12/18/22 History pregabalin 75 mg capsule 75 mg PO QAM 01/13/19 12/18/22 History pregabalin 75 mg capsule 150 mg PO QPM 01/13/19 12/18/22 History ropinirole 0.5 mg tablet 0.5 mg PO TID 01/13/19 12/18/22 History rosuvastatin 40 mg tablet 40 mg PO QAM 01/13/19 12/18/22 History isosorbide mononitrate 60 mg 60 mg PO QAM 06/23/19 12/18/22 History tablet,extended release 24 hr lisinopril 40 mg tablet 40 mg PO QAM 06/23/19 12/18/22 History acetaminophen 325 mg tablet 325 mg PO Q6H PRN Pain 06/30/19 12/18/22 History (Tylenol) buspirone 5 mg tablet 5 mg PO BID 07/27/20 12/18/22 History spironolactone 25 mg tablet 12.5 mg PO MOWEFR@0900 07/27/20 12/18/22 History amlodipine 5 mg tablet 5 mg PO QAM 10/17/22 12/18/22 History cyanocobalamin (vitamin B-12) 1,000 mcg IM UD 10/17/22 12/18/22 History 1,000 mcg/mL injection solution famotidine 20 mg tablet 20 mg PO QAM 10/17/22 12/18/22 History fluticasone fur. 200 mcg-umeclid 1 inh inhalation QA 10/17/22 12/18/22 History 62.5 mcg-vilant 25 mcg inhalat.powder (Trelegy Ellipta) mirtazapine 15 mg tablet 15 mg PO HS 10/17/22 12/18/22 History mupirocin calcium 2 % topical cream 1 applic topical BID 12/18/22 12/18/22 History Patient History Medical History Asthma Chronic obstructive pulmonary disease GERD (gastroesophageal reflux disease) Hx of gout Hyperlipidemia Hypertension Myocardial Infarction x4--last 2016--follows with Dr. 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>"STILL HAS WEAKNESS IN RT ARM" Surgical History History of appendectomy History of bilateral cataract extraction History of cardiac cath multiple--last 2016, [facility] History of colonoscopy History of cystoscopy History of esophagogastroduodenoscopy (EGD) History of heart artery stent TOTAL OF 4 STENTS PLACED DURING 4 CATH PROCEDURES; last 2016 History of lumbosacral spine surgery History of tonsillectomy History of tooth extraction all teeth Family History Sister Family history of diabetes mellitus Other No family history of adverse response to anesthesia Social History Smoking Status: Current every day smoker Cigarettes Per Day: 2; Second Hand Exposure: Yes; Do You Dip or Chew Tobacco: No; Tobacco Cessation Education Requested by Patient: No Hx Alcohol Use: No Hx Substance Use: No Preferred Language: Portuguese Communication Ability: Effective Informatics Specialist Required: No Beliefs That Will Affect Care: None marital status: Current Living Situation: Spouse Current Living Situation Comment: lives with and brother in law Other Information That Helps Us Care for You: No Feels Safe at Home: Yes Safety Concerns: Feels Safe At This Time Assistive Devices: Cane Assistive Devices Comment: reading glasses Review of Systems Review of Systems: All systems reviewed & are unremarkable except as noted in HPI & below Physical Exam Constitutional: WD/WN, vitals as above no acute distress Neck: normal visual inspection Respiratory: no respiratory distress and no labored breathing Auscultation: + wheezes Cardiovascular: Rate/Rhythm: regular rate and regular rhythm Heart Sounds: no murmur Vessels: no JVD Extremities: no edema Gastrointestinal (Abdomen): normal bowel sounds, soft, nontender, no hepatosplenomegaly Neurologic: PERRL, EOMI, accommodation nl, no face palsy, no dysarthria Psychiatric: A+Ox3, euthymic affect Results & Data Vital Signs (Past 12 Hours) Vital Signs Temp Pulse Pulse Resp BP Pulse Ox O2 Del Method 12/19/22 07:55 36.5 C 76 20 134/80 98 Room Air 12/19/22 03:00 36.5 C 79 18 116/75 92 Room Air 12/19/22 01:00 66 12/18/22 23:00 36.3 C L 58 L 20 133/76 96 Room Air 12/18/22 22:00 84 12/18/22 21:02 36.6 C 67 18 165/87 H 98 Room Air Laboratory Results Cardiac Enzymes 12/18/22 12/18/22 12/19/22 Range/Units 17:12 21:31 03:08 AST 15 (13-39) U/L Troponin I High Sens 17.3 19.2 15.2 D (0-20) pg/ml Coagulation 12/18/22 Range/Units 17:12 PT 10.6 (9.0-12.0) Seconds APTT 28.5 (21.0-31.0) Seconds Lipids 12/19/22 Range/Units 03:08 Triglycerides 108 (0-150) mg/dl Cholesterol 202 H (0-200) mg/dl HDL Cholesterol 38 mg/dl Cholesterol/HDL Ratio 5.3 H (0-5) CBC 12/18/22 12/19/22 Range/Units 17:12 03:08 WBC 7.39 7.15 (4.8-10.8) K/ul RBC 4.87 4.28 L (4.70-6.10) M/uL Hgb 15.6 13.6 L (14.0-18.0) g/dl Hct 44.5 38.4 L (42.0-52.0) % Plt Count 182 178 (130-400) K/uL Neut # (Auto) 4.33 (1.40-6.50) K/uL Lymph # (Auto) 2.38 (1.2-3.4) K/uL [place] # (Auto) 0.53 (0.11-0.59) K/uL Eos # (Auto) 0.11 (0-0.50) K/uL Baso # (Auto) 0.03 (0-0.2) K/uL Comprehensive Metabolic Panel 12/18/22 12/19/22 Range/Units 17:12 03:08 Sodium 139 141 (136-145) mmol/L Potassium 3.7 3.5 (3.5-5.1) mmol/L Chloride 106 110 H (98-107) mmol/L Carbon Dioxide 29 26 (21-32) mmol/L BUN 17 17 (6-23) mg/dl Creatinine 1.14 0.99 (0.6-1.4) mg/dl Glucose 98 108 H (70-99(Fasting)) mg/dl Calcium 9.1 8.4 L (8.6-10.3) mg/dl AST 15 (13-39) U/L ALT 10 (7-52) U/L Alkaline Phosphatase 76 (34-104) U/L Total Protein 7.2 (6.0-8.3) gm/dl Albumin 4.6 (3.4-5.0) gm/dl Intake and Output 12/18/22 12/19/22 12/19/22 22:59 06:59 14:59 Intake Total 740 / 740 Balance 740 / 740 Intake: IV 500 / 500 Sodium Chloride 0.9% 500 ml @ 500 / 500 999 mls/hr IV .Q31M ONE Rx#: [id number] Oral 240 / 240 Other: Other Intake Source sips # Unmeasured Voids 1 Weight 69.1 kg 69.1 kg Weight Measurement Method Built in Bedscale Standing Scale Diagnostic Findings Telemetry reviewed: NSR in the 60's. No concerning arrhythmia EKG reviewed from admission: NSR, LAD old inferior infarct (cited on or before 27-JUL-2020) Old Anterolateral infarct (cited on or before 26-MAY-2014) Compared with prior EKG, no significant changes repeat EKG this morning: NSR with old inferior and lateral infarcts noted Mild T wave inversions in lateral leads Chest X-Ray 12/18/22 17:07 XR chest 1V portable HISTORY: 72 years-old Male neuro deficit, acute stroke suspected COMPARISON: 01/27/2022 TECHNIQUE: AP view of the chest FINDINGS: Cardiomediastinal and hilar silhouettes are unchanged. Mild chronic interstitial coarsening. 1.5 cm nodular density projects over the right lung base. No pneumothorax, pleural effusion, airspace consolidation or overt pulmonary edema. Emphysema with chronic interstitial coarsening. IMPRESSION: 1. Emphysema without acute process. 2. 1.5 cm nodular density projects over the right lung base. This may be secondary to summation density versus pulmonary nodule. Attention on follow-up recommended. ACT 112: Negative or not required by law. The above report was generated using voice recognition software. It may contain grammatical, syntax or spelling errors. Electronically signed by: Pascual Rodriguez M.D. 12/18/2022 6:[address] 12/18/22 17:07 CT angio head w con, CT angio neck with con, CT head/brain wo con CLINICAL HISTORY: 72 years-old Male with neuro deficit, acute stroke suspected. Acute strokelike symptoms COMPARISON STUDY: Brain MRI, CTA head and neck 07/27/2020 TECHNIQUE: Unenhanced axial CT scan of the brain is performed. Subsequently, following the IV administration of 113 cc of Optiray, CT angiogram of the head and neck was performed from the aortic arch to the skull apex. Images are reviewed in the axial, sagittal, and coronal planes. 3-D MIPS images are created and assessed. IV contrast was administered without complication. All measurements were obtained according to NASCET criteria. A dose lowering technique was utilized adhering to the principles of ALARA. CT DOSE: 1153.70 mGy.cm FINDINGS: CT BRAIN: There is no acute intracranial hemorrhage, midline shift, hydrocephalus, intracranial mass, territorial ischemia or abnormal extra-axial collections. No abnormal intra-axial or extra-axial enhancement. Involutional changes with chronic microvascular ischemic disease. Cerebral vascular calcifications. Mastoid air cells and middle ear cavities are clear. No calvarial fracture. Paranasal sinuses are clear. CT ANGIOGRAM OF THE BRAIN: Three-vessel morphology of the thoracic aortic arch. Patency of the innominate and image subclavian arteries. The common carotid arteries are widely. Mild to moderate atherosclerotic plaque the carotid call results in less than 50% stenosis bilaterally. The bilateral anterior and middle cerebral arteries are also patent. Dominant right vertebral artery. The vertebrobasilar system and posterior cerebral arteries are widely patent. There is no aneurysm, high-grade stenosis, or proximal branch occlusion identified. Dural sinuses appear patent. Severe pulmonary emphysema. No pneumothorax. Unremarkable soft tissues. Prior bilateral lens repair. Degenerative changes of the spine. IMPRESSION: 1. No acute intracranial abnormality identified. 2. Unremarkable CTA of the head and neck. 3. Pulmonary emphysema. ACT 112: Negative or not required by law. The above report was generated using voice recognition software. It may contain grammatical, syntax or spelling errors. Electronically signed by: Pascual Rodriguez M.D. 12/18/2022 5:59 PM Head CTA 12/18/22 17:07 CT angio head w con, CT angio neck with con, CT head/brain wo con CLINICAL HISTORY: 72 years-old Male with neuro deficit, acute stroke suspected. Acute strokelike symptoms COMPARISON STUDY: Brain MRI, CTA head and neck 07/27/2020 TECHNIQUE: Unenhanced axial CT scan of the brain is performed. Subsequently, following the IV administration of 113 cc of Optiray, CT angiogram of the head and neck was performed from the aortic arch to the skull apex. Images are reviewed in the axial, sagittal, and coronal planes. 3-D MIPS images are created and assessed. IV contrast was administered without complication. All measurements were obtained according to NASCET criteria. A dose lowering technique was utilized adhering to the principles of ALARA. CT DOSE: 1153.70 mGy.cm FINDINGS: CT BRAIN: There is no acute intracranial hemorrhage, midline shift, hydrocephalus, intracranial mass, territorial ischemia or abnormal extra-axial collections. No abnormal intra-axial or extra-axial enhancement. Involutional changes with chronic microvascular ischemic disease. Cerebral vascular calcifications. Mastoid air cells and middle ear cavities are clear. No calvarial fracture. Paranasal sinuses are clear. CT ANGIOGRAM OF THE BRAIN: Three-vessel morphology of the thoracic aortic arch. Patency of the innominate and image subclavian arteries. The common carotid arteries are widely. Mild to moderate atherosclerotic plaque the carotid call results in less than 50% stenosis bilaterally. The bilateral anterior and middle cerebral arteries are also patent. Dominant right vertebral artery. The vertebrobasilar system and posterior cerebral arteries are widely patent. There is no aneurysm, high-grade stenosis, or proximal branch occlusion identified. Dural sinuses appear patent. Severe pulmonary emphysema. No pneumothorax. Unremarkable soft tissues. Prior bilateral lens repair. Degenerative changes of the spine. IMPRESSION: 1. No acute intracranial abnormality identified. 2. Unremarkable CTA of the head and neck. 3. Pulmonary emphysema. ACT 112: Negative or not required by law. The above report was generated using voice recognition software. It may contain grammatical, syntax or spelling errors. Electronically signed by: Pascual Rodriguez M.D. 12/18/2022 5:59 PM Neck CTA 12/18/22 17:07 CT angio head w con, CT angio neck with con, CT head/brain wo con CLINICAL HISTORY: 72 years-old Male with neuro deficit, acute stroke suspected. Acute strokelike symptoms COMPARISON STUDY: Brain MRI, CTA head and neck 07/27/2020 TECHNIQUE: Unenhanced axial CT scan of the brain is performed. Subsequently, following the IV administration of 113 cc of Optiray, CT angiogram of the head and neck was performed from the aortic arch to the skull apex. Images are reviewed in the axial, sagittal, and coronal planes. 3-D MIPS images are created and assessed. IV contrast was administered without complication. All measurements were obtained according to NASCET criteria. A dose lowering technique was utilized adhering to the principles of ALARA. CT DOSE: 1153.70 mGy.cm FINDINGS: CT BRAIN: There is no acute intracranial hemorrhage, midline shift, hydrocephalus, intracranial mass, territorial ischemia or abnormal extra-axial collections. No abnormal intra-axial or extra-axial enhancement. Involutional changes with chronic microvascular ischemic disease. Cerebral vascular calcifications. Mastoid air cells and middle ear cavities are clear. No calvarial fracture. Paranasal sinuses are clear. CT ANGIOGRAM OF THE BRAIN: Three-vessel morphology of the thoracic aortic arch. Patency of the innominate and image subclavian arteries. The common carotid arteries are widely. Mild to moderate atherosclerotic plaque the carotid call results in less than 50% stenosis bilaterally. The bilateral anterior and middle cerebral arteries are also patent. Dominant right vertebral artery. The vertebrobasilar system and posterior cerebral arteries are widely patent. There is no aneurysm, high-grade stenosis, or proximal branch occlusion identified. Dural sinuses appear patent. Severe pulmonary emphysema. No pneumothorax. Unremarkable soft tissues. Prior bilateral lens repair. Degenerative changes of the spine. IMPRESSION: 1. No acute intracranial abnormality identified. 2. Unremarkable CTA of the head and neck. 3. Pulmonary emphysema. ACT 112: Negative or not required by law. The above report was generated using voice recognition software. It may contain grammatical, syntax or spelling errors. Electronically signed by: Pascual Rodriguez M.D. 12/18/2022 5:59 PM Brain MRI 12/18/22 20:24 Exam(s): MRI HEAD Without Contrast EXAM: MR Head Without Intravenous Contrast CLINICAL HISTORY: Reason for exam: stroke like symptoms. TECHNIQUE: Magnetic resonance images of the head/brain without intravenous contrast in multiple planes. COMPARISON: Comparison made to prior noncontrast head CT from December 18, 2022 and brain MRI from July 27, 2020. FINDINGS: Brain: Moderate nonspecific white matter changes. The flow voids at the base of the brain are intact. No mass. No hemorrhage. No acute infarct. Ventricles: Unremarkable. No ventriculomegaly. Bones/joints: Unremarkable. Sinuses: Chronic ethmoid sinusitis. No acute sinusitis. Mastoid air cells: There is a tiny amount of fluid in the left mastoid air cells. No mastoid effusion. Orbits: Bilateral lens replacements. 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 IMPRESSION: No evidence of acute intracranial pathology. Moderate nonspecific white matter changes. Electronically signed by: Alida Eaton MD 12/19/22 02:11 AM Outside echo report reviewed dated February 2022: Interpretation Summary The examination is adequate to evaluate the referral indication. The qualitative LV ejection fraction is 40-44% (mildly reduced). The left ventricular cavity size is normal. The LV wall thickness is mildly increased (concentric). There is a large sized apical, anteroseptal, and anterior wall motion abnormality with mild hypokinesis to akinesis of the segments. Mild mitral regurgitation is present. Mild tricuspid regurgitation is present. Medications Administered Current Inpatient Medications Acetaminophen (Acetaminophen 325 Mg Tab) 650 mg PO Q4H PRN PRN Reason: Pain or Fever Stop: 01/17/23 20:51 Last Admin: 12/19/22 08:30 Dose: 650 mg Al Hydrox/Mg Hydrox/Simethicone (Aluminum/Magnesium Susp 30 Ml Udc) 15 ml PO Q4H PRN PRN Reason: Dyspepsia Stop: 01/17/23 20:51 Albuterol (Albuterol Hfa 8 Gm Inhaler) 2 puffs INH QID PRN PRN Reason: Shortness Of Breath Stop: 01/17/23 20:51 Amlodipine Besylate (Amlodipine Besylate 5 Mg Tab) 5 mg PO QAM [facility] Stop: 01/18/23 08:59 Last Admin: 12/19/22 08:28 Dose: 5 mg Aspirin (Aspirin 81 Mg Ectab) 81 mg PO QAM [facility] Stop: 01/18/23 08:59 Last Admin: 12/19/22 08:29 Dose: 81 mg Bupropion HCl (Bupropion Sr 150 Mg Tabcr) 150 mg PO BID [facility] Stop: 01/17/23 20:59 Last Admin: 12/19/22 08:29 Dose: 150 mg Buspirone HCl (Buspirone 5 Mg Tab) 5 mg PO BID [facility] Stop: 01/17/23 20:59 Last Admin: 12/19/22 08:29 Dose: 5 mg Carvedilol (Carvedilol 6.25 Mg Tab) 6.25 mg PO BID [facility] Stop: 01/17/23 20:59 Last Admin: 12/19/22 08:29 Dose: 6.25 mg Ezetimibe (E[facility]imibe 10 Mg Tablet) [facility] [place]: 01/18/23 08:59 Last Admin: 12/19/22 08:31 Dose: 10 mg Enoxaparin Sodium (Enoxaparin Inj 40 Mg/0.4 Ml Syr) 40 mg SQ [facility] Stop: 01/18/23 08:59 Last Admin: 12/19/22 08:30 Dose: 40 mg Famotidine (Famotidine 20 Mg Tab) [facility] [place]: 01/18/23 08:59 Last Admin: 12/19/22 08:31 Dose: 20 mg Finasteride (Finasteride 5 Mg Tab) 5 mg PO QAM [facility] Stop: 01/18/23 08:59 Last Admin: 12/19/22 08:31 Dose: 5 mg Fluticasone Furoate (Fluticasone Furoate 200mcg 14 Puffs/Inhaler) 1 puffs INH DAILY [facility] Stop: 01/18/23 08:59 Last Admin: 12/19/22 08:34 Dose: 1 puffs Isosorbide Mononitrate (Isosorbide [place] Extended Rel 60 Mg Tabcr) 60 mg PO QAM [facility] Stop: 01/18/23 08:59 Last Admin: 12/19/22 08:32 Dose: 60 mg Lisinopril (Lisinopril 40 Mg Tab) 40 mg PO QAM [facility] Stop: 01/18/23 08:59 Last Admin: 12/19/22 08:32 Dose: 40 mg Mirtazapine (Mirtazapine Tab 15 Mg Tab) 15 mg PO HS [facility] Stop: 01/17/23 20:59 Last Admin: 12/18/22 22:19 Dose: 15 mg Miscellaneous (Remove Nicoderm Patch) 1 each N/A DAILY@0859 [facility] Stop: 01/18/23 08:58 Last Admin: 12/19/22 08:28 Dose: 1 each Nicotine (Nicotine 21 Mg/24 Hr Tdsy) 21 mg TD QAM [facility] Stop: 01/17/23 19:59 Last Admin: 12/19/22 08:32 Dose: 21 mg Pantoprazole Sodium (Pantoprazole 40 Mg Tab) 40 mg PO BID [facility] Stop: 01/17/23 20:59 Last Admin: 12/19/22 08:32 Dose: 40 mg Polyethylene Glycol (Polyethylene (Miralax) 17 Gm Pack) 17 gm PO DAILY PRN PRN Reason: Constipation Stop: 01/17/23 20:51 Prasugrel (Prasugrel Tab 10 Mg Tab) 10 mg PO QAM [facility] Stop: 01/18/23 08:59 Last Admin: 12/19/22 08:32 Dose: 10 mg Pregabalin (Pregabalin 75 Mg Cap) 75 mg PO QAM [facility] Stop: 01/18/23 08:59 Last Admin: 12/19/22 08:48 Dose: 75 mg Pregabalin (Pregabalin 150 Mg Cap) 150 mg PO QPM [facility] Stop: 01/17/23 20:59 Last Admin: 12/18/22 22:21 Dose: 150 mg Ropinirole HCl (Ropinirole Hcl 0.25 Mg Tablet) 0.5 mg PO TID [facility] Stop: 01/17/23 20:59 Last Admin: 12/19/22 08:33 Dose: 0.5 mg Rosuvastatin Calcium (Rosuvastatin Calcium 20 Mg Tab) 40 mg PO QAM [facility] Stop: 01/18/23 08:59 Last Admin: 12/19/22 08:33 Dose: 40 mg Spironolactone (Spironolactone 12.5 Mg Tab) 12.5 mg PO MOWEFR@0900 [facility] Stop: 01/19/23 08:59 Umeclidinium/Vilanterol (Umeclidinium/Vilanterol 62.5/25mcg 7 Puffs/Inhaler) 1 puffs INH DAILY [facility] Stop: 01/18/23 08:59 Last Admin: 12/19/22 08:34 Dose: 1 puffs
[2022-12-19] MEDS ORDERED: PRASugrel TAB 10 MG TAB PO SCH (09:00)
[2022-12-19] MEDS ORDERED: NON-FORMULARY MEDICATION (Fluticasone-Umeclidin-Vilanter [Trelegy Ellipta] 200-62.5-25 mcg INH SCH (09:00)
--- NOTE | 2022-12-19 09:43 | Neurology Consultation ---
Date of Consultation December 19, 2022 Assessment & Plan (1) Hypertensive emergency: Left sided weakness in the setting of profound hypertension without MRI changes is consistent with hypertensive emergency. Do not suspect stroke or TIA in this context and workup has otherwise been unremarkable. He should remain on aspirin and crestor for secondary stroke prevention. No further neurologic workup. Please contact us with any further questions. Telehealth Consultation Telehealth Information Telehealth Information: I performed this visit using a real-time telehealth connection between my location and the patients location ([facility]). After connecting through interactive tele-video, patient was identified by name and date of and/or wristband check.Patient (or authorized healthcare bilingual inside sales representative) was informed that this was a telemedicine visit and it was being conducted confidentially over secure lines. My office door was closed and no one else was present in the room with me.Patient (or authorized healthcare bilingual inside sales representative) provided consent to proceed with the visit, expressed an understanding of privacy and security of the telemedicine visit, and gave permission to have a hospital bilingual inside sales representative in the room in order to assist with the visit and to conduct portions of the visit, as needed. I informed the patient (or authorized healthcare bilingual inside sales representative) that I reviewed their record and presented the opportunity for them to ask any questions regarding the visit today. The patient agreed to participate. History of Present Illness Reason for Consultation: Left sided weakness Requesting Physician: Dr. Brink Attending Physician: Juan Carlos Brink MD History of Present Illness Henri Vigil is a 72 yo M presenting with left sided numbness and weakness in the setting of severely elevated BP. Since BP has normalized his symptoms have improved. He continues to have some slight tingling of his left arm but no further leg symptoms. At baseline has difficulty lifting arms above his head due to shoulder issues. Otherwise denies any further headache or vision changes. Allergies Allergy/AdvReac Type Severity Reaction Status Date / Time codeine Allergy Mild "SKIN Verified 10/20/22 09:34 STARTS FALLING OFF" Home Medications Medication Instructions Recorded Confirmed Type albuterol sulfate 2.5 mg/3 mL 2.5 mg inhalation Q4 PRN Wheezing 01/13/19 12/18/22 History (0.083 %) solution for nebulization albuterol sulfate 90 mcg/actuation 2 puff inhalation QID PRN 01/13/19 12/18/22 History aerosol inhaler (ProAir HFA) Shortness Of Breath aspirin 81 mg tablet,delayed 81 mg PO QAM 01/13/19 12/18/22 History release bupropion HCl 150 mg tablet,12 hr 150 mg PO BID 01/13/19 12/18/22 History sustained-release carvedilol 6.25 mg tablet 6.25 mg PO BID 01/13/19 12/18/22 History dutasteride 0.5 mg capsule 0.5 mg PO QAM 01/13/19 12/18/22 History ezetimibe 10 mg tablet 10 mg PO QAM 01/13/19 12/18/22 History febuxostat 40 mg tablet 40 mg PO QAM PRN GOUT 01/13/19 12/18/22 History furosemide 20 mg tablet 20 mg PO DAILY PRN Edema 01/13/19 12/18/22 History nitroglycerin 0.4 mg sublingual 0.4 mg sublingual UD PRN Angina 01/13/19 12/18/22 History tablet omeprazole 20 mg tablet,delayed 20 mg PO BID 01/13/19 12/18/22 History release prasugrel 10 mg tablet (Effient) 10 mg PO QAM 01/13/19 12/18/22 History pregabalin 75 mg capsule 75 mg PO QAM 01/13/19 12/18/22 History pregabalin 75 mg capsule 150 mg PO QPM 01/13/19 12/18/22 History ropinirole 0.5 mg tablet 0.5 mg PO TID 01/13/19 12/18/22 History rosuvastatin 40 mg tablet 40 mg PO QAM 01/13/19 12/18/22 History isosorbide mononitrate 60 mg 60 mg PO QAM 06/23/19 12/18/22 History tablet,extended release 24 hr lisinopril 40 mg tablet 40 mg PO QAM 06/23/19 12/18/22 History acetaminophen 325 mg tablet 325 mg PO Q6H PRN Pain 06/30/19 12/18/22 History (Tylenol) buspirone 5 mg tablet 5 mg PO BID 07/27/20 12/18/22 History spironolactone 25 mg tablet 12.5 mg PO MOWEFR@0900 07/27/20 12/18/22 History amlodipine 5 mg tablet 5 mg PO QAM 10/17/22 12/18/22 History cyanocobalamin (vitamin B-12) 1,000 mcg IM UD 10/17/22 12/18/22 History 1,000 mcg/mL injection solution famotidine 20 mg tablet 20 mg PO QAM 10/17/22 12/18/22 History fluticasone fur. 200 mcg-umeclid 1 inh inhalation QAM 10/17/22 12/18/22 History 62.5 mcg-vilant 25 mcg inhalat.powder (Trelegy Ellipta) mirtazapine 15 mg tablet 15 mg PO HS 10/17/22 12/18/22 History mupirocin calcium 2 % topical cream 1 applic topical BID 12/18/22 12/18/22 History Patient History Medical History Asthma Chronic obstructive pulmonary disease GERD (gastroesophageal reflux disease) Hx of gout Hyperlipidemia Hypertension Myocardial Infarction x4--last 2016--follows with Dr. 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>"STILL HAS WEAKNESS IN RT ARM" Surgical History History of appendectomy History of bilateral cataract extraction History of cardiac cath multiple--last 2016, S History of colonoscopy History of cystoscopy History of esophagogastroduodenoscopy (EGD) History of heart artery stent TOTAL OF 4 STENTS PLACED DURING 4 CATH PROCEDURES; last 2016 History of lumbosacral spine surgery History of tonsillectomy History of tooth extraction all teeth Family History Sister Family history of diabetes mellitus Other No family history of adverse response to anesthesia Social History Smoking Status: Current every day smoker Cigarettes Per Day: 2; Second Hand Exposure: Yes; Do You Dip or Chew Tobacco: No; Tobacco Cessation Education Requested by Patient: No Hx Alcohol Use: No Hx Substance Use: No Preferred Language: Georgian Communication Ability: Effective International Tax Manager Required: No Beliefs That Will Affect Care: None marital status: Current Living Situation: Spouse Current Living Situation Comment: lives with and brother in law Other Information That Helps Us Care for You: No Feels Safe at Home: Yes Safety Concerns: Feels Safe At This Time Assistive Devices: Denture - Upper, Denture - Lower and Glasses Assistive Devices Comment: reading glasses Review of Systems +left sided numbness Physical Exam Neurological Examination: Mental Status: Awake and alert. Oriented to person, place, and time. Fluent. Comprehension intact. Affect appropriate. Cranial Nerves: II: pupils 3/3 to 2/2 III/IV/: Versions intact without nystagmus, no gaze preference. VII: Facial expression symmetric VIII: Hearing intact to voice IX/X: Palate elevates symmetrically XI: Shoulder shrug symmetric XII: Tongue midline Motor: Strength was symmetric and antigravity throughout. Unable to test pronato r drift due to shoulder ROM limitation. There were no abnormal movements. Coordination: Movements were non-ataxic Reflexes: Unable to assess over telemedicine Results & Data Vital Signs (Past 12 Hours) Vital Signs Temp Pulse Pulse Resp BP Pulse Ox O2 Del Method 12/19/22 07:55 36.5 C 76 20 134/80 98 Room Air 12/19/22 03:00 36.5 C 79 18 116/75 92 Room Air 12/19/22 01:00 66 12/18/22 23:00 36.3 C L 58 L 20 133/76 96 Room Air 12/18/22 22:00 84 Laboratory Results Abnormal lab results 12/18/22 12/19/22 12/19/22 Range/Units 23:20 03:08 03:08 RBC 4.28 L (4.70-6.10) M/uL Hgb 13.6 L (14.0-18.0) g/dl Hct 38.4 L (42.0-52.0) % Chloride 110 H (98-107) mmol/L Glucose 108 H (70-99(Fasting)) mg/dl Calcium 8.4 L (8.6-10.3) mg/dl Cholesterol 202 H (0-200) mg/dl Cholesterol/HDL Ratio 5.3 H (0-5) Ur Specific [place] 1.042 H (1.000-1.030) Diagnostic Findings MRI brain - Unremarkable
[2022-12-19 10:58] LABS: C Reactive Protein < 0.50 mg/dl (0-0.5)
--- NOTE | 2022-12-19 11:30 | Electrocardiogram Report ---
Test Reason : Blood Pressure : / mmHG Vent. Rate : 067 BPM Atrial Rate : 067 BPM P-R Int : 164 ms QRS Dur : 106 ms QT Int : 422 ms P-R-T Axes : 068 -35 079 degrees QTc Int : 445 ms Normal sinus rhythm Possible Left atrial enlargement Left axis deviation Inferior infarct (cited on or before 27-JUL-2020) Anterolateral infarct (cited on or before 26-MAY-2014) Abnormal ECG Confirmed by Yair Ames ([id number]) on 12/19/2022 11:30:27 AM Referred By: Leon Galvan Confirmed By:Ady Ames
--- NOTE | 2022-12-19 12:12 | Electrocardiogram Report ---
Test Reason : Blood Pressure : / mmHG Vent. Rate : 066 BPM Atrial Rate : 066 BPM P-R Int : 162 ms QRS Dur : 104 ms QT Int : 464 ms P-R-T Axes : 074 049 089 degrees QTc Int : 486 ms Normal sinus rhythm Possible Left atrial enlargement Anteroseptal infarct (cited on or before 26-MAY-2014) Abnormal ECG When compared with ECG of 18-DEC-2022 17:16, (unconfirmed) Nonspecific T wave abnormality now evident in Lateral leads Confirmed by Yair Ames ([id number]) on 12/19/2022 12:12:11 PM Referred By: Leon Galvan Confirmed By:Ady Ames
--- NOTE | 2022-12-19 12:30 | Hospitalist Progress Note ---
Date of Service December 19, 2022 Assessment & Plan (1) Hypertensive emergency: Plan: Strokelike symptoms Hypertensive urgency CVA ruled out Headache likely due to above --MRI Brain:No evidence of acute intracranial pathology. Moderate nonspecific white matter changes. --Head/Neck CTA:No acute intracranial abnormality identified. Unremarkable CTA of the head and neck. Pulmonary emphysema. --Normal ESR, CRP --ECHO From 02/20/22: EF 40 to 44%. Left ventricle cavity is normal in size. Left ventricle wall thickness is mildly increased concentrate. Large sized apical, anteroseptal, anterior wall motion abnormality with mild hypokinesis to akinesis of the segments. Mild mitral and tricuspid regurgitation is present. -Blood pressure better today Continue amlodipine, Coreg, lisinopril, isosorbide, Appreciate neurology input Cardiology consulted as well Monitor on telemetry Patient reports being compliant with medications Consider repeating ECHO if needed (2) Smoker: Plan: Smoking cessation recommended. 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 Continue aspirin, prasugrel, Crestor, isosorbide (6) COPD (chronic obstructive pulmonary disease): Plan: No signs of exacerbation Rn Pool to quit smoking Continue home inhalers (7) Ischemic cardiomyopathy: Plan: No signs of decompensation Continue home diuretics Monitor volume status (8) On home oxygen therapy: Plan: Continue supplemental Oxygen HS (9) BPH (benign prostatic hypertrophy): Plan: Continue dutasteride (10) Pulmonary nodule: Plan: chronic, follow up imaging in 3 months (11) Dyslipidemia: Plan: Continue crestor (12) Restless legs syndrome (RLS): Plan: Continue ropinirole, Lyrica DVT Px: Lovenox SQ Code Status Full Code Admission and Anticipated Discharge Date Admission Date: December 18, 2022 Subjective Patient is seen and examined at bedside States having left-sided headache Visual symptoms resolved Left lower extremity weakness much improved Denies any chest pain, dyspnea, dizziness, nausea, vomiting, abdominal pain Discussed with patient's family at bedside Also discussed with neurology today Review of Systems Review of Systems: All systems reviewed & are unremarkable except as noted in Subjective Physical Exam Physical Exam: Physical Exam: Vitals signs as noted above General Appearance:Moderately built and nourished, no apparent distress Head: normocephalic, Atraumatic Eyes: normal inspection, EOMI Neck: supple, Trachea midline Respiratory/Chest: Normal breath sounds, CTA, No accessory muscle use Cardiovascular: S1, S2, No murmur Abdomen/GI:Soft, Non tender, Bowel sounds present Extremities/Musculoskeletal:normal inspection, no edema Neurologic/Psych:AAOX3, grossly no focal neurological deficits Skin: normal color, warm Results & Data Results & Data Vital Signs (Past 12 Hours) Vital Signs Temp Pulse Pulse Resp BP Pulse Ox O2 Del Method 12/19/22 11:28 36.6 C 55 L 20 125/77 95 Room Air 12/19/22 07:55 36.5 C 76 20 134/80 98 Room Air 12/19/22 03:00 36.5 C 79 18 116/75 92 Room Air 12/19/22 01:00 66 Laboratory Results Short CBC 12/18/22 12/19/22 Range/Units 17:12 03:08 WBC 7.39 7.15 (4.8-10.8) K/ul Hgb 15.6 13.6 L (14.0-18.0) g/dl Hct 44.5 38.4 L (42.0-52.0) % Plt Count 182 178 (130-400) K/uL [facility] 12/18/22 12/19/22 17:12 03:08 Sodium 139 141 Potassium 3.7 3.5 Chloride 106 110 H Carbon Dioxide 29 26 BUN 17 17 Creatinine 1.14 0.99 Glucose 98 108 H Calcium 9.1 8.4 L Liver Function 12/18/22 Range/Units 17:12 Total Bilirubin 0.5 (0.2-1.0) mg/dl AST 15 (13-39) U/L ALT 10 (7-52) U/L Alkaline Phosphatase 76 (34-104) U/L Albumin 4.6 (3.4-5.0) gm/dl Urine 12/18/22 Range/Units 23:20 Urine Color Yellow Urine Appearance Clear (Clear) Urine pH 7.5 (4.5-7.5) Ur Specific [place] 1.042 H (1.000-1.030) Urine Protein Negative (Negative) Urine Glucose (UA) Negative (Negative) (4) Headache Headache chronicity pattern: unspecified pattern Headache type: unspecified Intractability: not intractable Qualified Code(s): R51.9 - Headache, unspecified
[2022-12-19] MEDS ORDERED: FUROSEMIDE 20 MG TAB PO PRN (12:43)
[2022-12-19 16:19] LABS: Lyme Ab IgG w/WB Rflx Negative (Negative)
[2022-12-19 16:22] LABS: Lyme Ab IgM w/WB Rflx Negative (Negative)
[2022-12-19] MEDS: MIRTAZAPINE TAB 15 MG TAB PO SCH (20:29)
[2022-12-19] MEDS: PREGABALIN 150 MG CAP PO SCH (20:32)
[2022-12-20 06:14] LABS: Hematocrit (blood only) 38.9 % (42.0-52.0); Hemoglobin 13.2 g/dl (14.0-18.0); Mean Corpuscular Hemoglobin 31.5 pg (25.0-34.0); Mean Corpuscular Hgb Conc 33.9 g/dL (32.0-36.0); Mean Corpuscular Volume 92.8 fL (80.0-100.0); Mean Platelet Volume 10.9 fL (9.4-12.4); Platelet Count 168 K/uL (130-400); RDW Coefficient of Variation 13.2 % (11.5-14.5); RDW Standard Deviation 45.2 fL (36.4-46.3); Red Blood Count 4.19 M/uL (4.70-6.10)
[2022-12-20 06:32] LABS: BUN Creatinine Ratio 18.5 (10-20); Calcium 8.5 mg/dl (8.6-10.3); Creatinine Clr Calc Pharmacy 48.3 ml/min; Est GFR (African American) 60.4 ml/min; Est GFR (Non-African American) 52.1 ml/min; Magnesium 2.1 mg/dl (1.7-2.4)
[2022-12-20] MEDS: ASPIRIN 81 MG ECTAB PO SCH (08:45)
[2022-12-20] MEDS: amLODIPine BESYLATE 5 MG TAB PO SCH (08:45)
[2022-12-20] MEDS: busPIRone 5 MG TAB PO SCH ×2 (08:46→20:25)
[2022-12-20] MEDS: buPROPion SR 150 MG TABCR PO SCH ×2 (08:46→20:25)
[2022-12-20] MEDS: carvediloL 6.25 MG TAB PO SCH ×2 (08:46→20:25)
[2022-12-20] MEDS: CLOPIDOGREL BISULFATE 75 MG TAB PO SCH (08:47)
[2022-12-20] MEDS: ENOXAPARIN INJ 40 MG/0.4 ML SYR SQ SCH (08:47)
[2022-12-20] MEDS: FAMOTIDINE 20 MG TAB PO SCH (08:48)
[2022-12-20] MEDS: FINASTERIDE 5 MG TAB PO SCH (08:48)
[2022-12-20] MEDS: ISOSORBIDE MONO EXTENDED REL 60 MG TABCR PO SCH (08:48)
[2022-12-20] MEDS: EZETIMIBE 10 MG TABLET PO SCH (08:48)
[2022-12-20] MEDS: lisinopril 40 MG TAB PO SCH (08:49)
[2022-12-20] MEDS: NICOTINE 21 MG/24 HR TDSY TD SCH (08:49)
[2022-12-20] MEDS: PREGABALIN 75 MG CAP PO SCH (08:49)
[2022-12-20] MEDS: PANTOprazole 40 MG TAB PO SCH ×2 (08:49→20:24)
[2022-12-20] MEDS: rOPINIRole HCL 0.25 MG TABLET PO SCH ×3 (08:49→20:24)
[2022-12-20] MEDS: ROSUVASTATIN CALCIUM 20 MG TAB PO SCH (08:50)
[2022-12-20] MEDS: FLUTICASONE FUROATE 200MCG 14 PUFFS/INHALER INH SCH (08:50)
[2022-12-20] MEDS: UMECLIDINIUM/VILANTEROL 62.5/25MCG 7 PUFFS/INHALER INH SCH (08:51)
[2022-12-20] MEDS ORDERED: SPIRONOLACTONE 12.5 MG TAB PO SCH (09:00)
--- NOTE | 2022-12-20 11:08 | Cardiology Progress Note ---
Date of Service December 20, 2022 Assessment & Plan (1) Hypertensive emergency: (2) Weakness: (3) CAD (coronary artery disease): (4) Chronic systolic heart failure: Plan Patient admitted for hypertensive emergency with stroke like symptoms with headache, weakness, gait instability, dizziness. Extensive head/brain imaging without acute findings. Neuro consulted and reviewed imaging. Ongoing ASA and crestor recommended from neuro standpoint. No evidence of CVA and no further imaging recommended. BP significantly elevated on arrival > 220/120. IV hydralazine and clonidine received in the ER and BP slowly improved. Oral home medications resumed and BP is well now controlled this morning without additional therapies. This suggests he has likely been non compliant with meds at home. His LDL is elevated as well, while taking high dose Crestor and Zetia. Resume therapies and will monitor as outpatient. Currently taking amlodipine 5 mg, carvedilol 6.25 mg BID, lisinopril 40 mg, isosorbide 60 mg and furosemide PRN with spironolactone 3 days per week. IF BP trends higher, would increase amlodipine to 10 mg. He has no symptoms to suggest angina. HS troponin has been negative x3. He appears euvolemic currently. Continue diuretics and monitor. Patient has been on chronic Prasugrel since 2011 when he had acute anterior [place] while in [place]. Typically this antiplatelet therapy is not continued after 1 year, but given his extensive coronary artery disease, medications were not adjusted when he returned to the area in 2013. Prasugrel is contraindicated in patient's with a history of TIA/CVA and can cause intracranial hemorrhage in patient's over the age of 70. While Mr. 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 He will be transitioned to plavix this morning. Prasurgel discontinued yesterday. Stable cardiac symptoms for discharge today on prior home therapies. Case discussed with Dr. Tabares. I spent a total of 30 minutes on the date of service in preparation, delivery, and documentation of the care provided to this patient, excluding any time spent in the performance of separately billed services. Jaqueline Avila PA-C Department of Cardiology, [facility] This chart was completed in part utilizing Speech Voice Recognition Software. Grammatical errors, random word insertions, pronoun errors, and incomplete sentences are an occasional consequence of this system due to software limitations, ambient noise, and hardware issues. Any formal questions or concerns about the content, text, or information contained within the body of this dictation should be directly addressed to the provider for clarification. Admission and Anticipated Discharge Date Admission Date: December 18, 2022 Supervising Physician Co-Signing Physician Notes Supervising Physician Attestation: I have personally performed a history and physical examination on the patient. I agree with the physician environmental emergencies assistant's findings and plan as documented with the following additions. Subjective: Patient without subjective complaint at present. Feels improved. Generalized fatigue which she complained of yesterday improved to some degree. Telemetry reveals sinus rhythm in the 50s to 60s. Exam: Cardiovascular: Regular rhythm, no murmurs, no edema Pulmonary: Lungs clear to auscultation bilaterally Data: Telemetry reveals sinus bradycardia and sinus rhythm in the 50s to 60s Assessment and Plan: Hypertensive urgency, blood pressure improved * Continue prior to arrival antihypertensives as noted. * Transition from prasugrel to clopidogrel. DVT prophylaxis: Subcutaneous Lovenox I spent a total of 20 minutes on the date of service in preparation, delivery, and documentation of the care provided to this patient, excluding any time spent in the performance of separately billed services. Rodolfo Tabares, DO Subjective Patient feeling well. Anxious for discharge. Dizziness resolved. Headache resolved. Denies recurrent weakness. No chest pain. no SOB. He does report cough and hospitalist is ordering chest xray. BP has been well controlled. Review of Systems Review of Systems: All systems reviewed & are unremarkable except as noted in HPI & below Physical Exam Constitutional: WD/WN, vitals as above no acute distress Neck: normal visual inspection Respiratory: no respiratory distress and no labored breathing Auscultation: + wheezes Cardiovascular: Rate/Rhythm: regular rate and regular rhythm Heart Sounds: no murmur Vessels: no JVD Extremities: no edema Gastrointestinal (Abdomen): normal bowel sounds, soft, nontender, no hepatosplenomegaly Neurologic: PERRL, EOMI, accommodation nl, no face palsy, no dysarthria Psychiatric: A+Ox3, euthymic affect Results & Data Vital Signs (Past 12 Hours) Vital Signs Temp Pulse Pulse Resp BP Pulse Ox O2 Del Method 12/20/22 08:17 36.6 C 65 19 142/78 H 95 Room Air 12/20/22 07:21 67 12/20/22 02:59 36.6 C 60 20 97/61 L 97 Room Air 12/20/22 00:00 59 L Laboratory Results CBC 12/20/22 Range/Units 05:52 WBC 7.10 (4.8-10.8) K/ul RBC 4.19 L (4.70-6.10) M/uL Hgb 13.2 L (14.0-18.0) g/dl Hct 38.9 L (42.0-52.0) % Plt Count 168 (130-400) K/uL Comprehensive Metabolic Panel 12/20/22 Range/Units 05:52 Sodium 139 (136-145) mmol/L Potassium 4.0 (3.5-5.1) mmol/L Chloride 109 H (98-107) mmol/L Carbon Dioxide 26 (21-32) mmol/L BUN 25 H (6-23) mg/dl Creatinine 1.35 D (0.6-1.4) mg/dl Glucose 94 (70-99(Fasting)) mg/dl Calcium 8.5 L (8.6-10.3) mg/dl Intake and Output 12/19/22 12/20/22 12/20/22 22:59 06:59 14:59 Intake Total 100 / 615 Balance 100 / 615 Intake: Oral 100 / 615 Other: Other Intake Source sips # Unmeasured Voids 1 Weight 69 kg Weight Measurement Method Built in [facility] Diagnostic Findings Telemetry reviewed: NSR with occ PAC and PVC's. No concerning arrhythmias Medications Administered Current Inpatient Medications Acetaminophen (Acetaminophen 325 Mg Tab) 650 mg PO Q4H PRN PRN Reason: Pain or Fever Stop: 01/17/23 20:51 Last Admin: 12/19/22 08:30 Dose: 650 mg Al Hydrox/Mg Hydrox/Simethicone (Aluminum/Magnesium Susp 30 Ml Udc) 15 ml PO Q4H PRN PRN Reason: Dyspepsia Stop: 01/17/23 20:51 Albuterol (Albuterol Hfa 8 Gm Inhaler) 2 puffs INH QID PRN PRN Reason: Shortness Of Breath Stop: 01/17/23 20:51 Amlodipine Besylate (Amlodipine Besylate 5 Mg Tab) 5 mg PO QAM [facility] Stop: 01/18/23 08:59 Last Admin: 12/20/22 08:45 Dose: 5 mg Aspirin (Aspirin 81 Mg Ectab) [facility] Stop: 01/18/23 08:59 Last Admin: 12/20/22 08:45 Dose: 81 mg Bupropion HCl (Bupropion Sr 150 Mg Tabcr) 150 mg PO BID [facility] Stop: 01/17/23 20:59 Last Admin: 12/20/22 08:46 Dose: 150 mg Buspirone HCl (Buspirone 5 Mg Tab) 5 mg PO BID [facility] Stop: 01/17/23 20:59 Last Admin: 12/20/22 08:46 Dose: 5 mg Carvedilol (Carvedilol 6.25 Mg Tab) 6.25 mg PO BID [facility] Stop: 01/17/23 20:59 Last Admin: 12/20/22 08:46 Dose: 6.25 mg Clopidogrel Bisulfate (Clopidogrel Bisulfate 75 Mg Tab) [address] [facility] Stop: 01/19/23 08:59 Last Admin: 12/20/22 08:47 Dose: 75 mg Ezetimibe (Ezetimibe 10 Mg Tablet) [facility] Stop: 01/18/23 08:59 Last Admin: 12/20/22 08:48 Dose: 10 mg Enoxaparin Sodium (Enoxaparin Inj 40 Mg/0.4 Ml Syr) [address] [facility] Stop: 01/18/23 08:59 Last Admin: 12/20/22 08:47 Dose: 40 mg Famotidine (Famotidine 20 Mg Tab) [facility] Stop: 01/18/23 08:59 Last Admin: 12/20/22 08:48 Dose: 20 mg Finasteride (Finasteride 5 Mg Tab) [address] [facility] Stop: 01/18/23 08:59 Last Admin: 12/20/22 08:48 Dose: 5 mg Fluticasone Furoate (Fluticasone Furoate 200mcg 14 Puffs/Inhaler) 1 puffs INH DAILY [facility] Stop: 01/18/23 08:59 Last Admin: 12/20/22 08:50 Dose: 1 puffs Isosorbide Mononitrate (Isosorbide [place] Extended Rel 60 Mg Tabcr) [facility] Stop: 01/18/23 08:59 Last Admin: 12/20/22 08:48 Dose: 60 mg Lisinopril (Lisinopril 40 Mg Tab) 40 mg PO QAM [facility] Stop: 01/18/23 08:59 Last Admin: 12/20/22 08:49 Dose: 40 mg Mirtazapine (Mirtazapine Tab 15 Mg Tab) 15 mg PO HS [facility] Stop: 01/17/23 20:59 Last Admin: 12/19/22 20:29 Dose: 15 mg Miscellaneous (Remove Nicoderm Patch) 1 each N/A DAILY@0859 [facility] Stop: 01/18/23 08:58 Last Admin: 12/20/22 08:45 Dose: 1 each Nicotine (Nicotine 21 Mg/24 Hr Tdsy) 21 mg TD QAM [facility] Stop: 01/17/23 19:59 Last Admin: 12/20/22 08:49 Dose: 21 mg Pantoprazole Sodium (Pantoprazole 40 Mg Tab) 40 mg PO BID [facility] Stop: 01/17/23 20:59 Last Admin: 12/20/22 08:49 Dose: 40 mg Polyethylene Glycol (Polyethylene (Miralax) 17 Gm Pack) 17 gm PO DAILY PRN PRN Reason: Constipation Stop: 01/17/23 20:51 Pregabalin (Pregabalin 75 Mg Cap) 75 mg PO QAM [facility] Stop: 01/18/23 08:59 Last Admin: 12/20/22 08:49 Dose: 75 mg Pregabalin (Pregabalin 150 Mg Cap) 150 mg PO QPM [facility] Stop: 01/17/23 20:59 Last Admin: 12/19/22 20:32 Dose: 150 mg Ropinirole HCl (Ropinirole Hcl 0.25 Mg Tablet) 0.5 mg PO TID [facility] Stop: 01/17/23 20:59 Last Admin: 12/20/22 08:49 Dose: 0.5 mg Rosuvastatin Calcium (Rosuvastatin Calcium 20 Mg Tab) 40 mg PO QAM [facility] Stop: 01/18/23 08:59 Last Admin: 12/20/22 08:50 Dose: 40 mg Spironolactone (Spironolactone 12.5 Mg Tab) 12.5 mg PO MOWEFR@0900 [facility] Stop: 01/19/23 08:59 Last Admin: 06/14/23 08:50 Dose: 12.5 mg Umeclidinium/Vilanterol (Umeclidinium/Vilanterol 62.5/25mcg 7 Puffs/Inhaler) 1 puffs INH DAILY [facility] Stop: 01/18/23 08:59 Last Admin: 12/20/22 08:51 Dose: 1 puffs
--- NOTE | 2022-12-20 12:34 | Electrocardiogram Report ---
Test Reason : Blood Pressure : / mmHG Vent. Rate : 059 BPM Atrial Rate : 059 BPM P-R Int : 176 ms QRS Dur : 106 ms QT Int : 486 ms P-R-T Axes : 076 046 094 degrees QTc Int : 481 ms Sinus bradycardia Possible Left atrial enlargement Anteroseptal infarct (cited on or before 26-MAY-2014) Abnormal ECG When compared with ECG of 19-DEC-2022 08:52, Nonspecific T wave abnormality, worse in Lateral leads Confirmed by Yair Ames ([id number]) on 12/20/2022 12:33:56 PM Referred By: Leon Galvan Confirmed By:Ady Ames
--- NOTE | 2022-12-20 14:24 | XRay Report ---
XR chest 1V portable HISTORY: 72 years-old Male cough acute cough COMPARISON: 12/18/2022 TECHNIQUE: AP view of the chest FINDINGS: Cardiomediastinal and hilar silhouettes are within normal limits. No pneumothorax, pleural effusion, airspace consolidation or overt pulmonary edema. Mild pleural parenchymal scarring of the lung apices . Previously questioned 1.5 cm nodular focus overlying the right lung base is not identified. IMPRESSION: 1. No acute processes of the chest. 2. Previously noted 1.5 cm nodular density of the right lung base is not identified on today's exam. ACT 112: Negative or not required by law. The above report was generated using voice recognition software. It may contain grammatical, syntax o r spelling errors. Electronically signed by: Pascual Rodriguez M.D. 12/20/2022 2:21 PM
--- NOTE | 2022-12-20 15:00 | Hospitalist Progress Note ---
Date of Service December 20, 2022 Assessment & Plan (1) Hypertensive emergency: Plan: Strokelike symptoms Hypertensive urgency CVA ruled out Headache likely due to above --MRI Brain:No evidence of acute intracranial pathology. Moderate nonspecific white matter changes. --Head/Neck CTA:No acute intracranial abnormality identified. Unremarkable CTA of the head and neck. Pulmonary emphysema. --Normal ESR, CRP --ECHO From 02/20/22: EF 40 to 44%. Left ventricle cavity is normal in size. Left ventricle wall thickness is mildly increased concentrate. Large sized apical, anteroseptal, anterior wall motion abnormality with mild hypokinesis to akinesis of the segments. Mild mitral and tricuspid regurgitation is present. --Check TSH Continue amlodipine, Coreg, lisinopril, isosorbide, Appreciate neurology, Cardiology Input Symptoms resolved Likely discharge home tomorrow (2) Smoker: Plan: CXR:No acute processes of the chest. Previously noted 1.5 cm nodular density of the right lung base is not identified on today's exam. Smoking cessation recommended. 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 (7) Ischemic cardiomyopathy: Plan: No signs of decompensation Continue home diuretics Monitor volume status (8) On home oxygen therapy: Plan: Continue supplemental Oxygen HS (9) BPH (benign prostatic hypertrophy): Plan: Continue dutasteride (10) Pulmonary nodule: Plan: chronic, follow up imaging in 3 months (11) Dyslipidemia: Plan: Continue crestor (12) Restless legs syndrome (RLS): Plan: Continue ropinirole, Lyrica DVT Px: Lovenox SQ Code Status Full Code Admission and Anticipated Discharge Date Admission Date: December 18, 2022 Subjective Patient is seen and examined at bedside States feeling much better today Headache, visual symptoms resolved Denies any left leg weakness today Has minimal dry cough Denies any chest pain, dyspnea, dizziness, nausea, vomiting, abdominal pain Review of Systems Review of Systems: All systems reviewed & are unremarkable except as noted in Subjective Physical Exam Physical Exam: Physical Exam: Vitals signs as noted above General Appearance:Moderately built and nourished, no apparent distress Head: normocephalic, Atraumatic Eyes: normal inspection, EOMI Neck: supple, Trachea midline Respiratory/Chest: Normal breath sounds, CTA, No accessory muscle use Cardiovascular: S1, S2, No murmur Abdomen/GI:Soft, Non tender, Bowel sounds present Extremities/Musculoskeletal:normal inspection, no edema Neurologic/Psych:AAOX3, grossly no focal neurological deficits Skin: normal color, warm Results & Data Results & Data Vital Signs (Past 12 Hours) Vital Signs Temp Pulse Pulse Resp BP Pulse Ox O2 Del Method 12/20/22 14:52 55 L 12/20/22 11:55 36.7 C 61 19 113/70 94 Room Air 12/20/22 08:17 36.6 C 65 19 142/78 H 95 Room Air 12/20/22 07:21 67 12/20/22 02:59 36.6 C 60 20 97/61 L 97 Room Air Laboratory Results Short CBC 12/20/22 Range/Units 05:52 WBC 7.10 (4.8-10.8) K/ul Hgb 13.2 L (14.0-18.0) g/dl Hct 38.9 L (42.0-52.0) % Plt Count 168 (130-400) K/uL BMP 12/20/22 05:52 Sodium 139 Potassium 4.0 Chloride 109 H Carbon Dioxide 26 BUN 25 H Creatinine 1.35 D Glucose 94 Calcium 8.5 L (4) Headache Headache chronicity pattern: unspecified pattern Headache type: unspecified Intractability: not intractable Qualified Code(s): R51.9 - Headache, unspecified
[2022-12-20] MEDS: MIRTAZAPINE TAB 15 MG TAB PO SCH (20:25)
[2022-12-20] MEDS: PREGABALIN 150 MG CAP PO SCH (20:27)
[2022-12-21 06:25] LABS: BUN Creatinine Ratio 16.7 (10-20); Calcium 8.4 mg/dl (8.6-10.3); Creatinine Clr Calc Pharmacy 50.2 ml/min; Est GFR (Non-African American) 53.5 ml/min; Magnesium 2.2 mg/dl (1.7-2.4); Potassium 4.4 mmol/L (3.5-5.1)
[2022-12-21] MEDS: NICOTINE 21 MG/24 HR TDSY TD SCH (07:32)
[2022-12-21] MEDS: FINASTERIDE 5 MG TAB PO SCH (07:33)
[2022-12-21] MEDS: FAMOTIDINE 20 MG TAB PO SCH (07:33)
[2022-12-21] MEDS: carvediloL 6.25 MG TAB PO SCH (07:33)
[2022-12-21] MEDS: PANTOprazole 40 MG TAB PO SCH (07:33)
[2022-12-21] MEDS: ISOSORBIDE MONO EXTENDED REL 60 MG TABCR PO SCH (07:33)
[2022-12-21] MEDS: busPIRone 5 MG TAB PO SCH (07:33)
[2022-12-21] MEDS: UMECLIDINIUM/VILANTEROL 62.5/25MCG 7 PUFFS/INHALER INH SCH (07:34)
[2022-12-21] MEDS: FLUTICASONE FUROATE 200MCG 14 PUFFS/INHALER INH SCH (07:34)
[2022-12-21] MEDS: lisinopril 40 MG TAB PO SCH (07:34)
[2022-12-21] MEDS: CLOPIDOGREL BISULFATE 75 MG TAB PO SCH (07:34)
[2022-12-21] MEDS: ASPIRIN 81 MG ECTAB PO SCH (07:34)
[2022-12-21] MEDS: buPROPion SR 150 MG TABCR PO SCH (07:35)
[2022-12-21] MEDS: ENOXAPARIN INJ 40 MG/0.4 ML SYR SQ SCH (07:35)
[2022-12-21] MEDS: amLODIPine BESYLATE 5 MG TAB PO SCH (07:35)
[2022-12-21] MEDS: rOPINIRole HCL 0.25 MG TABLET PO SCH (07:35)
[2022-12-21] MEDS: EZETIMIBE 10 MG TABLET PO SCH (07:36)
[2022-12-21] MEDS: PREGABALIN 75 MG CAP PO SCH (08:40)
[2022-12-21] MEDS: ROSUVASTATIN CALCIUM 20 MG TAB PO SCH (08:40)
--- NOTE | 2022-12-21 11:35 | Hospitalist Progress Note ---
Date of Service December 21, 2022 Assessment & Plan (1) Hypertensive emergency: Plan: Strokelike symptoms Hypertensive urgency CVA ruled out Headache likely due to above --MRI Brain:No evidence of acute intracranial pathology. Moderate nonspecific white matter changes. --Head/Neck CTA:No acute intracranial abnormality identified. Unremarkable CTA of the head and neck. Pulmonary emphysema. --Normal ESR, CRP --ECHO From 02/20/22: EF 40 to 44%. Left ventricle cavity is normal in size. Left ventricle wall thickness is mildly increased concentrate. Large sized apical, anteroseptal, anterior wall motion abnormality with mild hypokinesis to akinesis of the segments. Mild mitral and tricuspid regurgitation is present. --TSH: Normal Continue amlodipine, Coreg, lisinopril, isosorbide, Appreciate neurology, Cardiology Input Plan to discharge home today (2) Smoker: Plan: CXR:No acute processes of the chest. Previously noted 1.5 cm nodular density of the right lung base is not identified on today's exam. Smoking cessation recommended. 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 (7) Ischemic cardiomyopathy: Plan: No signs of decompensation Continue home diuretics Monitor volume status (8) On home oxygen therapy: Plan: Continue supplemental Oxygen HS (9) BPH (benign prostatic hypertrophy): Plan: Continue dutasteride (10) Pulmonary nodule: Plan: chronic, follow up imaging in 3 months (11) Dyslipidemia: Plan: Continue crestor (12) Restless legs syndrome (RLS): Plan: Continue ropinirole, Lyrica DVT Px: Lovenox SQ Code Status Full Code Disposition Home with home health Admission and Anticipated Discharge Date Admission Date: December 18, 2022 Subjective Patient is seen and examined at bedside Doing well today No new complaints Discussed with cardiology No recurrence of visual symptoms, headache, focal weakness Ambulating in hallways with no issues No cough today Denies any chest pain, dyspnea, dizziness, nausea, vomiting, abdominal pain Review of Systems Review of Systems: All systems reviewed & are unremarkable except as noted in Subjective Physical Exam Physical Exam: Physical Exam: Vitals signs as noted above General Appearance:Moderately built and nourished, no apparent distress Head: normocephalic, Atraumatic Eyes: normal inspection, EOMI Neck: supple, Trachea midline Respiratory/Chest: Normal breath sounds, CTA, No accessory muscle use Cardiovascular: S1, S2, No murmur Abdomen/GI:Soft, Non tender, Bowel sounds present Extremities/Musculoskeletal:normal inspection, no edema Neurologic/Psych:AAOX3, grossly no focal neurological deficits Skin: normal color, warm Results & Data Results & Data Vital Signs (Past 12 Hours) Vital Signs Temp Pulse Pulse Resp BP BP Pulse Ox 12/21/22 10:30 132/74 12/21/22 08:17 57 L 12/21/22 07:37 36.7 C 58 L 20 170/101 H 160/95 H 96 12/21/22 02:51 36.8 C 61 20 115/68 96 O2 Del Method 12/21/22 10:30 12/21/22 08:17 12/21/22 07:37 Room Air 12/21/22 02:51 Room Air Laboratory Results BMP 12/21/22 05:38 Sodium 141 Potassium 4.4 Chloride 110 H Carbon Dioxide 27 BUN 22 Creatinine 1.32 Glucose 90 Calcium 8.4 L (4) Headache Headache chronicity pattern: unspecified pattern Headache type: unspecified Intractability: not intractable Qualified Code(s): R51.9 - Headache, unspecified
[2022-12-21 11:44] VITALS: PULSE 55; TEMP 97.5; O2SAT 97
--- NOTE | 2022-12-21 11:47 | Discharge Summary ---
Date of Service December 21, 2022 Admission HPI Per Admitting Provider 72-year-old man presents on referral from outpatient primary care's office after blood pressure was found to be 203/119. Patient had presented reporting dizziness with headaches falls and difficulty with balance along with left-sided weakness for 3 days. He has a known history of CVA coronary disease with an DC and an LAD stent status post CABG. He has a history of low cardiac ejection fraction. He denied any vision loss, slurred speech or difficulty swallowing. Chronic shortness of breath was stable and he had no chest pain. On arrival to the ER he reported a left-sided headache. He reported falling multiple times with weakness in his right lower leg. On physical exam he was noted to have no gross focal neurologic deficits. He is on aspirin and prasugrel as well as Crestor. Initial work-up includes a CBC, coag panel, CHEM panel within normal limits. Liver panel within normal limits and troponin is normal. Imaging including head and neck CTA and head CT revealed no acute intracranial abnormali ty. Chest x-ray is consistent with pulmonary emphysema without acute process with a 1.5 cm pulmonary nodule. He reports to me that he has an ongoing left sided headache with bilateral blurry vision x 3 days. Denies chest pain, worsened SOB and no respiratory symptoms. He denies any recent changes in diet and denies any recent medication changes. He is still actively smoking, denies alcohol use, marijuana use or use of other recreational drugs. 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 Denies laying hardscape, planting trees, or other recent big jobs. He denies issues with urination, no abdominal pain, no fevers, chills. He was given hydralazine 10mg IV x 1 with slight improvement in BP that went right back to 222/118 on the left, 206/113 on the right. Nicardipine drip was considered given ongoing headache and blurry vision with recent left sided weakness that is still present but improved per patient. Spoke with ICU provider and decided on a plan to give clonidine 0.1mg PO now followed by a nicardipine drip. RN reported BP decreased to 201 systolic. After further discussion, we decided to place him in PCU and monitor the effects of the clonidine. Admission Exam Per Admitting Provider CONSTITUTIONAL: WNWD, vitals as above, generally well-appearing, slightly tremulous EYES: EOMI bilaterally, PERRL, injected conjunctivae bilaterally with watery irritated eyes, no scleral icterus, no fundoscopic abnormality (exam limited without dilation) ENT: external ear and nose normal, oropharynx clear, mucous membranes are moist NECK: trachea midline RESPIRATORY: wheezing throughout L>R, no crackles or rales, normal respiratory effort, no hypoxia CARDIOVASCULAR: regular rate and rhythm, S1 and 2 heard without murmurs, gallops or rubs, no JVD, no peripheral edema CHEST: inspection of chest was normal GASTROINTESTINAL: soft, nontender,ND, no guarding MUSCULOSKELETAL: strength 5/5 throughout, head is normocephalic and atraumatic, SKIN: warm and dry NEUROLOGIC: brachioradialis and patellar DTRs 2+ bilat. PERRL, EOMI, no facial palsy, no dysarthria. Touch, pain and proprioception normal. CN 2-12 grossly intact, no sensory deficit, normal cognition, normal speech PSYCHIATRIC: alert cooperative and oriented to person, place and time. Euthymic mood, makes good eye contact, language grossly intact, recent and remote memory grossly intact. Principal Diagnosis Hypertensive urgency Strokelike symptoms Tobacco use disorder Discharge Data Allergies Allergy/AdvReac Type Severity Reaction Status Date / Time codeine Allergy Mild "SKIN Verified 10/20/22 09:34 STARTS FALLING OFF" Consultations 12/18/22 18:12 ED Decision to Admit Stat 12/18/22 20:44 Consult Cardiology Routine 12/19/22 08:16 Consult Neurology Routine Procedures Performed Laboratory Results WBC 7.10 K/ul (4.8-10.8) 12/20/22 05:52 RBC 4.19 M/uL (4.70-6.10) L 12/20/22 05:52 Hgb 13.2 g/dl (14.0-18.0) L 12/20/22 05:52 POC Hgb 15.6 g/dl (14.0-18.0) 12/18/22 17:18 Hct 38.9 % (42.0-52.0) L 12/20/22 05:52 POC Hct 46 % (42-52) 12/18/22 17:18 MCV 92.8 fL (80.0-100.0) 12/20/22 05:52 MCH 31.5 pg (25.0-34.0) 12/20/22 05:52 MCHC 33.9 g/dL (32.0-36.0) 12/20/22 05:52 RDW Std Deviation 45.2 fL (36.4-46.3) 12/20/22 05:52 RDW Coeff of Lakesha 13.2 % (11.5-14.5) 12/20/22 05:52 Plt Count 168 K/uL (130-400) 12/20/22 05:52 MPV 10.9 fL (9.4-12.4) 12/20/22 05:52 Immature Gran % (Auto) 0.1 % 12/18/22 17:12 Neut % (Auto) 58.6 % 12/18/22 17:12 Lymph % (Auto) 32.2 % 12/18/22 17:12 [place] % (Auto) 7.2 % 12/18/22 17:12 Eos % (Auto) 1.5 % 12/18/22 17:12 Baso % (Auto) 0.4 % 12/18/22 17:12 Neut # (Auto) 4.33 K/uL (1.40-6.50) 12/18/22 17:12 Lymph # (Auto) 2.38 K/uL (1.2-3.4) 12/18/22 17:12 [place] # (Auto) 0.53 K/uL (0.11-0.59) 12/18/22 17:12 Eos # (Auto) 0.11 K/uL (0-0.50) 12/18/22 17:12 Baso # (Auto) 0.03 K/uL (0-0.2) 12/18/22 17:12 Immature Gran # (Auto) 0.01 K/uL (0.01-0.20) 12/18/22 17:12 ESR 2 mm/hr (0-20) 12/19/22 03:08 PT 10.6 Seconds (9.0-12.0) 12/18/22 17:12 INR 1.0 (0.9-1.1) 12/18/22 17:12 APTT 28.5 Seconds (21.0-31.0) 12/18/22 17:12 PTT Ratio 1.0 12/18/22 17:12 POC Sodium 142 mmol/L (135-144) 12/18/22 17:18 Sodium 141 mmol/L (136-145) 12/21/22 05:38 POC Potassium 3.6 mmol/L (3.3-5.0) 12/18/22 17:18 Potassium 4.4 mmol/L (3.5-5.1) 12/21/22 05:38 POC Chloride 103 mmol/L (101-112) 12/18/22 17:18 Chloride 110 mmol/L (98-107) H 12/21/22 05:38 Carbon Dioxide 27 mmol/L (21-32) 12/21/22 05:38 POC Total CO2 25 mmol/L (24-31) 12/18/22 17:18 Anion Gap 4 (3-11) 12/21/22 05:38 POC Anion Gap 19.0 mmol/L (16-25) 12/18/22 17:18 POC BUN 17 mg/dl (7-18) 12/18/22 17:18 BUN 22 mg/dl (6-23) 12/21/22 05:38 Creatinine 1.32 mg/dl (0.6-1.4) 12/21/22 05:38 POC Creatinine 1.2 mg/dl (0.6-1.3) 12/18/22 17:18 Est Cr Clr Drug Dosing 50.2 ml/min 12/21/22 05:38 Est GFR ( Amer) 62.0 ml/min 12/21/22 05:38 Est GFR (Non-Af Amer) 53.5 ml/min 12/21/22 05:38 BUN/Creatinine Ratio 16.7 (10-20) 12/21/22 05:38 Glucose 90 mg/dl (70-99(Fasting)) 12/21/22 05:38 POC Glucose (other) 99 mg/dl (70-99) 12/18/22 17:18 Calcium 8.4 mg/dl (8.6-10.3) L 12/21/22 05:38 POC Ioniz Calcium Marlon 1.15 mmol/l (1.12-1.32) 12/18/22 17:18 Magnesium 2.2 mg/dl (1.7-2.4) 12/21/22 05:38 Total Bilirubin 0.5 mg/dl (0.2-1.0) 12/18/22 17:12 AST 15 U/L (13-39) 12/18/22 17:12 ALT 10 U/L (7-52) 12/18/22 17:12 Alkaline Phosphatase 76 U/L (34-104) 12/18/22 17:12 Troponin I High Sens 15.2 pg/ml (0-20) D 12/19/22 03:08 C-Reactive Protein < 0.50 mg/dl (0-0.5) 12/19/22 03:08 Total Protein 7.2 gm/dl (6.0-8.3) 12/18/22 17:12 Albumin 4.6 gm/dl (3.4-5.0) 12/18/22 17:12 Globulin 2.6 gm/dl (2.5-4.0) 12/18/22 17:12 Albumin/Globulin Ratio 1.8 (0.9-2) 12/18/22 17:12 Triglycerides 108 mg/dl (0-150) 12/19/22 03:08 Cholesterol 202 mg/dl (0-200) H 12/19/22 03:08 LDL Cholesterol, Calc 142 mg/dl 12/19/22 03:08 VLDL Cholesterol, Calc 22 mg/dl (0-30) 12/19/22 03:08 HDL Cholesterol 38 mg/dl 12/19/22 03:08 Cholesterol/HDL Ratio 5.3 (0-5) H 12/19/22 03:08 TSH 2.835 uIu/ml (0.300-4.500) 12/21/22 05:38 Urine Color Yellow 12/18/22 23:20 Urine Appearance Clear (Clear) 12/18/22 23:20 Urine pH 7.5 (4.5-7.5) 12/18/22 23:20 Ur Specific [place] 1.042 (1.000-1.030) H 12/18/22 23:20 Urine Protein Negative (Negative) 12/18/22 23:20 Urine Glucose (UA) Negative (Negative) 12/18/22 23:20 Urine Ketones Negative (Negative) 12/18/22 23:20 Urine Blood Negative (Negative) 12/18/22 23:20 Urine Nitrite Negative (Negative) 12/18/22 23:20 Urine Bilirubin Negative (Negative) 12/18/22 23:20 Urine Urobilinogen Negative (Negative) 12/18/22 23:20 Ur Leukocyte Esterase Negative (Negative) 12/18/22 23:20 Lyme Disease IgG Ab Negative (Negative) 12/19/22 14:28 Lyme Disease IgM Ab Negative (Negative) 12/19/22 14:28 SARS-CoV-2, RNA, NAAT NEGATIVE (NEGATIVE) 12/18/22 17:[address] 12/18/22 17:07 CT angio head w con, CT angio neck with con, CT head/brain wo con CLINICAL HISTORY: 72 years-old Male with neuro deficit, acute stroke suspected. Acute strokelike symptoms COMPARISON STUDY: Brain MRI, CTA head and neck 07/27/2020 TECHNIQUE: Unenhanced axial CT scan of the brain is performed. Subsequently, following the IV administration of 113 cc of Optiray, CT angiogram of the head and neck was performed from the aortic arch to the skull apex. Images are reviewed in the axial, sagittal, and coronal planes. 3-D MIPS images are created and assessed. IV contrast was administered without complication. All measurements were obtained according to NASCET criteria. A dose lowering technique was utilized adhering to the principles of ALARA. CT DOSE: 1153.70 mGy.cm FINDINGS: CT BRAIN: There is no acute intracranial hemorrhage, midline shift, hydrocephalus, intracranial mass, territorial ischemia or abnormal extra-axial collections. No abnormal intra-axial or extra-axial enhancement. Involutional changes with chronic microvascular ischemic disease. Cerebral vascular calcifications. Mastoid air cells and middle ear cavities are clear. No calvarial fracture. Paranasal sinuses are clear. CT ANGIOGRAM OF THE BRAIN: Three-vessel morphology of the thoracic aortic arch. Patency of the innominate and image subclavian arteries. The common carotid arteries are widely. Mild to moderate atherosclerotic plaque the carotid call results in less than 50% stenosis bilaterally. The bilateral anterior and middle cerebral arteries are also patent. Dominant right vertebral artery. The vertebrobasilar system and posterior cerebral arteries are widely patent. There is no aneurysm, high-grade stenosis, or proximal branch occlusion identified. Dural sinuses appear patent. Severe pulmonary emphysema. No pneumothorax. Unremarkable soft tissues. Prior bilateral lens repair. Degenerative changes of the spine. IMPRESSION: 1. No acute intracranial abnormality identified. 2. Unremarkable CTA of the head and neck. 3. Pulmonary emphysema. ACT 112: Negative or not required by law. The above report was generated using voice recognition software. It may contain grammatical, syntax or spelling errors. Electronically signed by: Pascual Rodriguez M.D. 12/18/2022 5:59 PM Head CTA 12/18/22 17:07 CT angio head w con, CT angio neck with con, CT head/brain wo con CLINICAL HISTORY: 72 years-old Male with neuro deficit, acute stroke suspected. Acute strokelike symptoms COMPARISON STUDY: Brain MRI, CTA head and neck 07/27/2020 TECHNIQUE: Unenhanced axial CT scan of the brain is performed. Subsequently, following the IV administration of 113 cc of Optiray, CT angiogram of the head and neck was performed from the aortic arch to the skull apex. Images are reviewed in the axial, sagittal, and coronal planes. 3-D MIPS images are created and assessed. IV contrast was administered without complication. All measurements were obtained according to NASCET criteria. A dose lowering technique was utilized adhering to the principles of ALARA. CT DOSE: 1153.70 mGy.cm FINDINGS: CT BRAIN: There is no acute intracranial hemorrhage, midline shift, hydrocephalus, intracranial mass, territorial ischemia or abnormal extra-axial collections. No abnormal intra-axial or extra-axial enhancement. Involutional changes with chronic microvascular ischemic disease. Cerebral vascular calcifications. Mastoid air cells and middle ear cavities are clear. No calvarial fracture. Paranasal sinuses are clear. CT ANGIOGRAM OF THE BRAIN: Three-vessel morphology of the thoracic aortic arch. Patency of the innominate and image subclavian arteries. The common carotid arteries are widely. Mild to moderate atherosclerotic plaque the carotid call results in less than 50% stenosis bilaterally. The bilateral anterior and middle cerebral arteries are also patent. Dominant right vertebral artery. The vertebrobasilar system and posterior cerebral arteries are widely patent. There is no aneurysm, high-grade stenosis, or proximal branch occlusion identified. Dural sinuses appear patent. Severe pulmonary emphysema. No pneumothorax. Unremarkable soft tissues. Prior bilateral lens repair. Degenerative changes of the spine. IMPRESSION: 1. No acute intracranial abnormality identified. 2. Unremarkable CTA of the head and neck. 3. Pulmonary emphysema. ACT 112: Negative or not required by law. The above report was generated using voice recognition software. It may contain grammatical, syntax or spelling errors. Electronically signed by: Pascual Rodriguez M.D. 12/18/2022 5:59 PM Neck CTA 12/18/22 17:07 CT angio head w con, CT angio neck with con, CT head/brain wo con CLINICAL HISTORY: 72 years-old Male with neuro deficit, acute stroke suspected. Acute strokelike symptoms COMPARISON STUDY: Brain MRI, CTA head and neck 07/27/2020 TECHNIQUE: Unenhanced axial CT scan of the brain is performed. Subsequently, following the IV administration of 113 cc of Optiray, CT angiogram of the head and neck was performed from the aortic arch to the skull apex. Images are reviewed in the axial, sagittal, and coronal planes. 3-D MIPS images are created and assessed. IV contrast was administered without complication. All measurements were obtained according to NASCET criteria. A dose lowering techni que was utilized adhering to the principles of ALARA. CT DOSE: 1153.70 mGy.cm FINDINGS: CT BRAIN: There is no acute intracranial hemorrhage, midline shift, hydrocephalus, intracranial mass, territorial ischemia or abnormal extra-axial collections. No abnormal intra-axial or extra-axial enhancement. Involutional changes with chronic microvascular ischemic disease. Cerebral vascular calcifications. Mastoid air cells and middle ear cavities are clear. No calvarial fracture. Paranasal sinuses are clear. CT ANGIOGRAM OF THE BRAIN: Three-vessel morphology of the thoracic aortic arch. Patency of the innominate and image subclavian arteries. The common carotid arteries are widely. Mild to moderate atherosclerotic plaque the carotid call results in less than 50% stenosis bilaterally. The bilateral anterior and middle cerebral arteries are also patent. Dominant right vertebral artery. The vertebrobasilar system and posterior cerebral arteries are widely patent. There is no aneurysm, high-grade stenosis, or proximal branch occlusion identified. Dural sinuses appear patent. Severe pulmonary emphysema. No pneumothorax. Unremarkable soft tissues. Prior bilateral lens repair. Degenerative changes of the spine. IMPRESSION: 1. No acute intracranial abnormality identified. 2. Unremarkable CTA of the head and neck. 3. Pulmonary emphysema. ACT 112: Negative or not required by law. The above report was generated using voice recognition software. It may contain grammatical, syntax or spelling errors. Electronically signed by: Pascual Rodriguez M.D. 12/18/2022 5:59 PM Brain MRI 12/18/22 20:24 Exam(s): MRI HEAD Without Contrast EXAM: MR Head Without Intravenous Contrast CLINICAL HISTORY: Reason for exam: stroke like symptoms. TECHNIQUE: Magnetic resonance images of the head/brain without intravenous contrast in multiple planes. COMPARISON: Comparison made to prior noncontrast head CT from December 18, 2022 and brain MRI from July 27, 2020. FINDINGS: Brain: Moderate nonspecific white matter changes. The flow voids at the base of the brain are intact. No mass. No hemorrhage. No acute infarct. Ventricles: Unremarkable. No ventriculomegaly. Bones/joints: Unremarkable. Sinuses: Chronic ethmoid sinusitis. No acute sinusitis. Mastoid air cells: There is a tiny amount of fluid in the left mastoid air cells. No mastoid effusion. Orbits: Bilateral lens replacements. 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 IMPRESSION: No evidence of acute intracranial pathology. Moderate nonspecific white matter changes. Electronically signed by: Alida Eaton MD 12/19/22 02:11 AM Chest X-Ray 12/20/22 13:55 XR chest 1V portable HISTORY: 72 years-old Male cough acute cough COMPARISON: 12/18/2022 TECHNIQUE: AP view of the chest FINDINGS: Cardiomediastinal and hilar silhouettes are within normal limits. No pneumothorax, pleural effusion, airspace consolidation or overt pulmonary edema. Mild pleural parenchymal scarring of the lung apices. Previously questioned 1.5 cm nodular focus overlying the right lung base is not identified. IMPRESSION: 1. No acute processes of the chest. 2. Previously noted 1.5 cm nodular density of the right lung base is not identified on today's exam. ACT 112: Negative or not required by law. The above report was generated using voice recognition software. It may contain grammatical, syntax or spelling errors. Electronically signed by: Pascual Rodriguez M.D. 12/20/2022 2:21 PM Ordered Studies 12/18/22 17:07 CT angio head w con Stat CT angio neck with con Stat CT head/brain wo con Stat 12/18/22 20:24 MR brain wo con Routine Hospital Course (1) Hypertensive emergency: Strokelike symptoms Hypertensive urgency CVA ruled out Headache likely due to above --MRI Brain:No evidence of acute intracranial pathology. Moderate nonspecific white matter changes. --Head/Neck CTA:No acute intracranial abnormality identified. Unremarkable CTA of the head and neck. Pulmonary emphysema. --Normal ESR, CRP --ECHO From 02/20/22: EF 40 to 44%. Left ventricle cavity is normal in size. Left ventricle wall thickness is mildly increased concentrate. Large sized apical, anteroseptal, anterior wall motion abnormality with mild hypokinesis to akinesis of the segments. Mild mitral and tricuspid regurgitation is present. --TSH: Normal Continue amlodipine, Coreg, lisinopril, isosorbide, Appreciate neurology, Cardiology Input Plan to discharge home today (2) Smoker: CXR:No acute processes of the chest. Previously noted 1.5 cm nodular density of the right lung base is not identified on today's exam. Smoking cessation recommended. 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 Continue home inhalers (7) Ischemic cardiomyopathy: No signs of decompensation Continue home diuretics Monitor volume status (8) On home oxygen therapy: Continue supplemental Oxygen HS (9) BPH (benign prostatic hypertrophy): Continue dutasteride (10) Pulmonary nodule: chronic, follow up imaging in 3 months (11) Dyslipidemia: Continue crestor (12) Restless legs syndrome (RLS): Continue ropinirole, Lyrica DVT Px: Lovenox SQ Code Status Full Code Disposition Home with home health Total Time Total Time Spent Total Time Spent (In Minutes): 55 minutes Discharge Plan Discharge Items Patient Disposition: Home - Home Health Services Reason For Visit: HYPERTENSIVE URGENCY Discharge Diagnosis: Hypertensive urgency Strokelike symptoms Tobacco use disorder Activity: Per Instructions section Exercise/Sports: Gradually increase as tolerated Non-emergency contact: Primary Care Provider Call non-emergency contact if: you have any medication questions, your symptoms worsen, your pain is concerning for you and you have a fever Follow-up/Referrals: Leon Galvan DO [Primary Care Provider] - (Date & Time 12/27/2022 1:00 PM Provider Leon Galvan DO Department Family Practice [address] [facility], [place] ) Diet: Heart Healthy and Low Sodium (2gm) Addtl Attending Provider Instructions: Follow-up with your primary care physician Dr. Galvan on 12/27/2022 1:00 PM Follow-up with your chief privacy officer as needed. Medication changes: 1)-- Your Prasugrel (Effient) is changed to Plavix 75 mg daily as recommended by your chief privacy officer. 2)-- your omeprazole is changed to pantoprazole 40 mg daily. --- Quit smoking tobacco as advised. -- Monitor your blood pressure regularly at home. Discuss with your physician for further adjustment of blood pressure medications as needed. Seek immediate medical attention if your symptoms reoccur or worsen Please take all medications as instructed on discharge list below. Please call if you have any questions or problems. You can reach a [place] ospitalist on duty at [facility] 24 hours a day by calling [phone] Risk Factors for Stroke: You can reduce your chances of stroke by working with your medical provider to adopt a healthy lifestyle. Some specific ways to lower your chance of stroke are: * If you are a smoker, now is the time to stop smoking cigarettes * If you are diabetic, improve the control of your blood sugars * Avoid excessive amounts of alcohol * Control high blood pressure * Lose weight if you are overweight * Be sure to lead an active lifestyle * Eat a healthy diet low in salt, cholesterol and fat You should know about other risk factors for stroke that you are unable to control. These include: * Age 55 years or older * Male gender * Certain racial groups: , or / * Family History of Stroke, Mini stroke or Heart Attack * Sickle Cell Disease Follow Up: It is important for you to keep your follow up appointments with your medical provider. Who to Call and When: Medical Emergencies: Call 911 immediately if you experience any of the following warning signs and symptoms of Stroke: * Sudden numbness or weakness of the face, arm or leg, especially on one side of the body * Sudden confusion, trouble speaking or understanding * Sudden trouble seeing in one or both eyes * Sudden trouble walking, dizziness, loss of balance or coordination * Sudden severe headache with no cause Do not delay calling 911 if you experience any warning signs or symptoms of a stroke. Delay in seeking medical attention may affect what treatments can be given to you. . Pending Studies at Discharge: No Stand-Alone Forms: My [facility], Smoking Cessation Medications and DC Order Prescriptions: New clopidogrel 75 mg Tablet 75 mg PO QAM Qty: 30 2RF pantoprazole [Protonix] 40 mg tablet,delayed release (DR/EC) 40 mg PO DAILY 30 Days Qty: 30 2RF Continued bupropion HCl 150 mg Tablet Sustained-Release 12 Hr 150 mg PO BID carvedilol 6.25 mg Tablet 6.25 mg PO BID Rx Instructions: Take with food albuterol sulfate 2.5 mg /3 mL (0.083 %) Solution For Nebulization 2.5 mg INHALATION Q4 PRN (Reason: Wheezing) aspirin 81 mg Tablet,Delayed Release (Dr/Ec) 81 mg PO QAM ropinirole 0.5 mg Tablet 0.5 mg PO TID Rx Instructions: Take with food nitroglycerin 0.4 mg Tablet, Sublingual 0.4 mg sublingual UD PRN (Reason: Angina) furosemide 20 mg Tablet 20 mg PO DAILY PRN (Reason: Edema) albuterol sulfate [ProAir HFA] 90 mcg/actuation Hfa Aerosol Inhaler 2 puff INHALATION QID PRN (Reason: Shortness Of Breath) ezetimibe 10 mg Tablet 10 mg PO QAM dutasteride 0.5 mg Capsule 0.5 mg PO QAM rosuvastatin 40 mg Tablet 40 mg PO QAM pregabalin 75 mg Capsule 75 mg PO QAM pregabalin 75 mg Capsule 150 mg PO QPM febuxostat 40 mg Tablet 40 mg PO QAM PRN (Reason: GOUT) isosorbide mononitrate 60 mg Tablet Extended Release 24 Hr 60 mg PO QAM lisinopril 40 mg Tablet 40 mg PO QAM acetaminophen [Tylenol] 325 mg Tablet 325 mg PO Q6H PRN (Reason: Pain) buspirone 5 mg tablet 5 mg PO BID spironolactone 25 mg tablet 12.5 mg PO MOWEFR@0900 Rx Instructions: SUNDAY, SUNDAY, SUNDAY ONLY amlodipine 5 mg Tablet 5 mg PO QAM famotidine 20 mg Tablet 20 mg PO QAM cyanocobalamin (vitamin B-12) 1,000 mcg/mL Solution 1,000 mcg IM UD Rx Instructions: ONCE EVERY 4 WEEKS mirtazapine 15 mg Tablet 15 mg PO HS Trelegy Ellipta 200-62.5-25 mcg Blister With Device 1 inh INHALATION QAM mupirocin calcium 2 % cream 1 applic TOPICAL BID Discontinued omeprazole 20 mg Tablet,Delayed Release (Dr/Ec) 20 mg PO BID prasugrel [Effient] 10 mg Tablet 10 mg PO QAM Patient Comments: WAS INSTRUCTED TO STOP 7 DAYS PRIOR TO PROCEDURE. Discharge Orders: Discharge Order (Routine); Ordered 12/21/22 Ordered By: Juan Carlos Brink Admission Data Admit Date/Time: 12/18/22 18:37 Attending Provider: Juan Carlos Brink Admit Provider: Linda Duron Primary Care Provider: Leon Galvan Other Providers: Rodolfo Tabares ; Linda Duron ; Fuentes King
[2022-12-21 11:54] VITALS: BP 132/74
== END 2022-12-21 12:25 | disposition home health service (06) | DRG 305 ==
LOC: ED 16:54 → SUATTDRO 18:37 → 4W 18:37

== ENCOUNTER 2024-08-06 14:12 | Inpatient (IN) ==
[2024-08-06] MEDS: SODIUM CHLORIDE 0.9% 1,000 ML IV ONE ×2 (14:45→16:53)
[2024-08-06 15:05] LABS: Basophils # (auto) 0.04 K/uL (0.00-0.20); Basophils % (auto) 0.6 %; Eosinophils # (auto) 0.53 K/uL (0.00-0.50); Eosinophils % (auto) 7.8 %; Hematocrit (blood only) 36.5 % (42.0-52.0); Hemoglobin 12.1 g/dl (14.0-18.0); Immature Granulocytes # (auto) 0.01 K/uL (0.01-0.20); Immature Granulocytes % (auto) 0.1 %; Lymphocytes # (auto) 1.71 K/uL (1.20-3.40); Lymphocytes % (auto) 25.3 %; Mean Corpuscular Hemoglobin 31.8 pg (25.0-34.0); Mean Corpuscular Hgb Conc 33.2 g/dL (32.0-36.0); Mean Corpuscular Volume 95.8 fL (80.0-100.0); Mean Platelet Volume 11.4 fL (9.4-12.4); Monocytes # (auto) 0.56 K/uL (0.11-0.59); Monocytes % (auto) 8.3 %; Neutrophils # (auto) 3.92 K/uL (1.40-6.50); Neutrophils % (auto) 57.9 %; Platelet Count 186 K/uL (130-400); RDW Coefficient of Variation 14.4 % (11.5-14.5); Red Blood Count 3.81 M/uL (4.70-6.10); White Blood Count 6.77 K/ul (4.8-10.8)
[2024-08-06 15:11] LABS: HCO3 VBG 32 mmol/L; Oxygen Saturation VBG < 60.0 %; PCO2 VBG 60 mmHg (38-50); PO2 VBG < 20 mmHg; pH VBG 7.33 (7.36-7.41)
--- NOTE | 2024-08-06 15:16 | Electrocardiogram Report ---
Test Reason : Blood Pressure : */* mmHG Vent. Rate : 68 BPM Atrial Rate : 68 BPM P-R Int : 186 ms QRS Dur : 106 ms QT Int : 424 ms P-R-T Axes : 73 40 110 degrees QTcB Int : 450 ms Normal sinus rhythm Anteroseptal infarct (cited on or before 26-May-2014) Abnormal ECG When compared with ECG of 20-Dec-2022 05:47, Nonspecific T wave abnormality, improved in Lateral leads Confirmed by Terrence Lanza ([id number]) on 08/06/2024 3:16:04 PM Referred By: Confirmed By: Terrence Lanza
--- NOTE | 2024-08-06 15:20 | XRay Report ---
XR pelvis 1-2V routine CLINICAL HISTORY: Trauma COMPARISON: None FINDINGS: Single view of the pelvis demonstrates a no evidence of acute traumatic injury. There is n o fracture identified. Is no hip dislocation. Lumbosacral fusion is noted. Prominent stool seen throu ghout the colon. Mildly distended urinary bladder. IMPRESSION: No acute traumatic injury. ACT 112: Negative or not required by law. Electronically signed by: Jhoana Avalos M.D. 08/06/2024 3:19 PM
[2024-08-06 15:22] LABS: Albumin Globulin Ratio 1.4 (0.9-2); BUN Creatinine Ratio 15.2 (10-20); Bilirubin,Total 0.4 mg/dl (0.2-1.0); Calcium 8.9 mg/dl (8.6-10.3); Creatinine Clr Calc Pharmacy 37.9 ml/min; Globulin 2.9 gm/dl (2.5-4.0); Potassium 4.3 mmol/L (3.5-5.1); Total Protein 6.9 gm/dl (6.0-8.3)
[2024-08-06 15:26] LABS: Troponin I High Sensitivity 23.8 pg/ml (0-20)
--- NOTE | 2024-08-06 15:33 | XRay Report ---
XR chest 1V portable CLINICAL HISTORY: Trauma COMPARISON STUDY: Chest CT May 26, 2014. Chest radiograph December 20, 2022. FINDINGS: Status post median sternotomy. Mild cardiomegaly is noted. There is no pneumothorax or pleu ral effusion. Left basilar densities favor atelectasis. 1.7 cm nodular left midlung density is presen t. IMPRESSION: 1. No pneumothorax. 2. 1.7 cm nodular left midlung density. This is likely artifactual or atelectatic. A pulmonary nodule is considered less likely however follow-up PA and lateral chest radiographs are recommended. ACT 112: Negative or not required by law. Electronically signed by: Nacho Eaton M.D. 08/06/2024 3:32 PM
[2024-08-06 15:52] LABS: INR 1.7 (0.9-1.1); Partial Thromboplastin Ratio 1.4; Partial Thromboplastin Time 37 Seconds (21-31); Prothrombin Time 17.8 Seconds (9.0-12.0)
--- NOTE | 2024-08-06 15:59 | CT Scan Report ---
CT OF THE HEAD WITHOUT CONTRAST CLINICAL HISTORY: Trauma COMPARISON STUDY: Head CT, CTA of the head and MRI of the brain December 18, 2022. TECHNIQUE: Helical axial images of the head were obtained without IV contrast. Automated exposure con trol was utilized for the study. A dose lowering technique was utilized adhering to the principles o f ALARA. FINDINGS: No acute intracranial hemorrhage, midline shift or mass effect is present. White matter hyp odensities suggest small vessel disease. The ventricular system is unremarkable. The basal cisterns a re patent. No extra-axial collections are present. There are no findings to suggest acute dural sinus thrombosis or acute territorial infarct. No significant calvarial abnormalities are present. Visuali zed portions of the sinuses and mastoid air cells are clear. IMPRESSION: 1. No acute intracranial findings. 2. No calvarial fractures. ACT 112: Negative or not required by law. Electronically signed by: Nacho Eaton M.D. 08/06/2024 3:58 PM
--- NOTE | 2024-08-06 16:01 | CT Scan Report ---
CT cervical spine wo con CT DOSE: 480 CLINICAL HISTORY: Trauma. COMPARISON: 12/18/2022 TECHNIQUE: Multiple axial CT images of the cervical spine were obtained without contrast. A dose low ering technique was utilized adhering to the principles of ALARA. FINDINGS: There is diffuse degenerative disc disease. No fracture or subluxation. IMPRESSION: No fracture seen. ACT 112: Negative or not required by law. The above report was generated using voice recognition software. It may contain grammatical, syntax o r spelling errors. Electronically signed by: Edson Lyman M.D. 08/06/2024 3:59 PM
--- NOTE | 2024-08-06 16:05 | CT Scan Report ---
ABDOMEN AND PELVIS CT WITHOUT CONTRAST CT DOSE: 2017.91 mGy.cm HISTORY: trauma TECHNIQUE: Multiaxial CT images of the abdomen and pelvis were performed without contrast. A dose lo wering technique was utilized adhering to the principles of ALARA. COMPARISON STUDY: 06/30/2019 FINDINGS: ABDOMEN: Liver, spleen, pancreas, kidneys, and adrenal glands show no evidence of acute injury on thi s non-IV contrast exam. There are a few small renal cysts. There are scattered atherosclerotic calcif ications. No abdominal aortic aneurysm. There is interval mild bilateral hydronephrosis with no renal or ureteral calculi. Pelvis: Prostate is enlarged. Urinary bladder is severely distended, likely the cause of the mild angel ateral hydronephrosis. There is moderate retained stool. No bowel inflammation or obstruction. No agnieszka e fluid, free air, or abscess. Osseous structures: There is laminectomy and metallic fusion at L4-5. There are mild diffuse degenera tive changes at the lumbar spine and hips. No acute fracture seen at the visualized osseous structure s. IMPRESSION: 1. No evidence of acute injury seen. 2. Severe distention of the urinary bladder causes mild bilateral hydronephrosis. 3. Otherwise as described. ACT 112: Negative or not required by law. The above report was generated using voice recognition software. It may contain grammatical, syntax o r spelling errors. Electronically signed by: Edson Lyman M.D. 08/06/2024 4:03 PM
--- NOTE | 2024-08-06 16:40 | Communication Note ---
Date of Service: August 06, 2024 Past medical history of past medical history of hypertension, gout, hyperlipidemia, COPD, heart failure, CVA, hypertension, GERD, BPH, restless leg syndrome, tobacco use disorder, postoperatively atrial fibrillation on Coumadin recent CABG in June 2024. KAYLEE in 06/30/24 shows a reduced EF 35% which is down from 1-year prior of 45% and a small apical laminar thrombus for which he was started on Eliquis. Was [place] [facility] [place] Lisinopril, Norvasc held for hypotension. Discharged on low-dose of Coreg. On Coumadin for apical thrombus. Family history; mother at 54 with heart disorder, father at 56 with heart disorder. Social history; 0.5 packs/day for last several years.
[2024-08-06 16:47] LABS: Appearance Urine Clear (Clear); Bilirubin Urine Negative (Negative); Blood Urine Negative (Negative); Color Urine Yellow; Glucose Urine UA Negative (Negative); Ketones Urine Negative (Negative); Leukocyte Esterase Urine Negative (Negative); Nitrite Urine Negative (Negative); Protein Urine Negative (Negative); Specific Gravity Urine 1.015 (1.000-1.030); Urobilinogen Urine Negative (Negative)
--- NOTE | 2024-08-06 17:08 | History & Physical Report ---
Date of Service August 06, 2024 Assessment & Plan (1) BIJAL (acute kidney injury): (2) Urinary retention: Plan Patient is a 74-year-old male with Past medical history of past medical history of hypertension, gout, hyperlipidemia, COPD, heart failure, CVA, hypertension, GERD, BPH, restless leg syndrome, tobacco use disorder. Patient was found to have reduced EF of 35% in 06/30/2024 with small apical laminar thrombus. He was started on Eliquis. He was then admitted to [facility] [place] for CABG on 07/08/2024. Postoperative period was complicated with atrial fibrillation, hypotension and BIJAL. He was started on amiodarone and Coumadin at discharge. Patient was brought to the hospital with concern of mechanical fall. Did not hit his head. In workup in the ED, he was found to have BIJAL and acute urinary retention. Acute urinary retention BIJAL Patient creatinine was 1.5 on 08/02/2024; presented with creatinine of 1.7 CT abdomen pelvis showed large bladder. Status post Bejarano cath replacement Continue Bejarano for at least 7 to 10 days. Urology consulted to establish care and also appreciate any further recommendation. Will give another 1 L bolus. Obtain BMP to monitor electrolytes, creatinine. Obtain orthostatic vitals every shift PT OT eval Obtain echocardiogram Hold lasix for now; patient appears well compensated from HF stand point. Chronic conditions; CAD status post CABG in June4continue on Plavix, rosuvastatin 40 mg, Zetia 10 mg, Coreg 3.125 twice daily History of apical thrombus-continued Coumadin; obtain PT/INR daily Atrial fibrillationcontinue amiodarone, Coumadin CHF with reduced EFcontinue Coreg. Hold Lasix GERDcontinue pantoprazole Mood disordercontinue on mirtazapine, buspirone, bupropion Restless leg syndrome- continue on ropinirole Tobacco use disordercontinue nicotine patch Full code DVT prophylaxis Coumadin Time spent evaluating patient, direct bedside care, chart review, placing orders, interpretation of diagnostic studies, discussion with consultants, patient, and family members, as well as other required patient management activities is 75 minutes Please note the above document was generated using voice recognition software. It may contain grammatical, syntax or spelling errors. Any formal questions or concerns about the content, text or information contained within the body of this dictation should be directly addressed to the provider for clarification History of Present Illness Chief Complaint: Fall Primary Care Provider: Leon Galvan DO History obtained from the patient, chart review Past medical history of past medical history of hypertension, gout, hyperlipidemia, COPD, heart failure, CVA, hypertension, GERD, BPH, restless leg syndrome, tobacco use disorder. Patient was found to have reduced EF of 35% in 06/30/2024 with small apical laminar thrombus. He was started on Eliquis. He was then admitted to [facility] [place] for CABG(undwent on 07/08/2024). Postoperative period was complicated with atrial fibrillation, hypotension and BIJAL. He was started on amiodarone and Coumadin at discharge. As per patient, visiting nurse came to his house. He was sitting on the couch; while he was trying to stand up; he was falling down due to bilateral lower extremity weakness but was caught by the nurse. He denies syncope. He denies any dizziness. He denies any lower extremity weakness at this time. He denies any visual changes, chest pain, shortness of breath, abdominal pain or urinary symptoms. Workup in the ED showed BIJAL and urine retention for which Bejarano catheter was placed. Patient was then referred for admission. Family history; mother at 54 with heart disorder, father at 56 with heart disorder. Social history; 0.5 packs/day for last several years. Allergies Allergy/AdvReac Type Severity Reaction Status Date / Time codeine Allergy Mild "SKIN Verified 06/25/24 09:05 STARTS FALLING OFF" Home Medications Medication Instructions Recorded Confirmed Type aspirin 81 mg tablet,delayed 81 mg PO QAM 01/13/19 06/25/24 History release bupropion HCl 150 mg tablet,12 hr 150 mg PO BID 01/13/19 06/25/24 History sustained-release carvedilol 6.25 mg tablet 6.25 mg PO BID 01/13/19 06/25/24 History dutasteride 0.5 mg capsule 0.5 mg PO QDL 01/13/19 08/06/24 History ezetimibe 10 mg tablet 10 mg PO QAM 01/13/19 06/25/24 History nitroglycerin 0.4 mg sublingual 0.4 mg sublingual UD PRN Angina 01/13/19 08/06/24 History tablet ropinirole 0.5 mg tablet 0.5 mg PO HS 01/13/19 08/06/24 History rosuvastatin 40 mg tablet 40 mg PO QAM 01/13/19 08/06/24 History lisinopril 40 mg tablet 40 mg PO QAM 06/23/19 06/25/24 History acetaminophen 325 mg tablet 325 mg PO Q6H PRN Pain 06/30/19 06/25/24 History (Tylenol) buspirone 5 mg tablet 5 mg PO BID 07/27/20 06/25/24 History spironolactone 25 mg tablet 12.5 mg PO MOWEFR@0900 07/27/20 06/25/24 History amlodipine 5 mg tablet 5 mg PO QAM 10/17/22 06/25/24 History cyanocobalamin (vitamin B-12) 1,000 mcg IM UD 10/17/22 06/25/24 History 1,000 mcg/mL injection solution famotidine 20 mg tablet 20 mg PO QAM 10/17/22 08/06/24 History mirtazapine 15 mg tablet 15 mg PO HS 10/17/22 08/06/24 History mupirocin calcium 2 % topical cream 1 applic topical BID 12/18/22 12/18/22 History clopidogrel 75 mg tablet 75 mg PO QAM #30 tabs 12/21/22 06/25/24 Rx oxycodone 5 mg tablet 5 mg PO Q6H PRN pain #15 tabs 11/12/23 06/25/24 Rx baclofen 10 mg tablet 10 mg PO TID 06/25/24 06/25/24 History isosorbide mononitrate 120 mg 120 mg PO QAM #30 tabs 06/25/24 Rx tablet,extended release 24 hr amiodarone 200 mg tablet 200 mg PO QDB 08/06/24 08/06/24 History apixaban 5 mg tablet (Eliquis) mg 08/06/24 History carvedilol 3.125 mg tablet 3.125 mg PO AMPM 08/06/24 08/06/24 History furosemide 40 mg tablet 40 mg PO QAM 08/06/24 08/06/24 History pantoprazole 40 mg tablet,delayed 40 mg PO QAM 08/06/24 08/06/24 History release (Protonix) polyethylene glycol 3350 17 17 g PO QAM 08/06/24 08/06/24 History gram/dose oral powder (Miralax) potassium chloride 10 mEq 10 meq PO UD 08/06/24 08/06/24 History tablet,extended release(part/cryst) pregabalin 75 mg capsule 75 mg PO AMHS 08/06/24 08/06/24 History warfarin 1 mg tablet 1 mg PO DAILY 08/06/24 08/06/24 History Past Med/Surg History Problem List (Updated 08/06/24 @ 16:58 by Senthil Burris MD) Urinary retention BIJAL (acute kidney injury) Lumbar radiculopathy Ischemic cardiomyopathy Smoker Hypertensive emergency Hypertensive emergency without congestive heart failure On home oxygen therapy 2L N/C at hs Weakness Hypertensive urgency Asthma (Chronic) CAD (coronary artery disease) (Chronic) COPD (chronic obstructive pulmonary disease) (Acute) DM type 2 (diabetes mellitus, type 2) (Chronic) Chronic systolic heart failure (Chronic) Pulmonary nodule (Chronic) BPH (benign prostatic hypertrophy) (Chronic) Dyslipidemia (Chronic) Gout (Chronic) HTN (hypertension) (Chronic) Restless legs syndrome (RLS) (Chronic) Lowe's esophagus (Chronic) Stented coronary artery (Chronic) "LAD stent 10/08/04" History of back surgery (Chronic) History of prostate surgery (Chronic) "TULIP" H/O cystoscopy (Chronic) Precordial chest pain (Acute) TIA (transient ischemic attack) (Acute) Encounter for pre-operative examination Encounter for pre-operative examination Encounter for pre-operative examination TIA (transient ischemic attack) (Acute) HTN (hypertension) (Acute) Headache (Acute) GERD (gastroesophageal reflux disease) (Chronic) Medical History Hx of gout On anticoagulant therapy effient daily Restless leg syndrome Hypertension Hyperlipidemia 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 Box On home oxygen therapy 2L N/C at hs Sleep apnea oxygen--2L N/C Chronic obstructive pulmonary disease Asthma GERD (gastroesophageal reflux disease) Surgical History History of bilateral cataract extraction History of cystoscopy History of lumbosacral spine surgery History of colonoscopy History of esophagogastroduodenoscopy (EGD) History of appendectomy History of tooth extraction all teeth History of tonsillectomy History of heart artery stent TOTAL OF 4 STENTS PLACED DURING 4 CATH PROCEDURES; last 2016 History of cardiac cath multiple--last 2017, S Family History Sister Family history of diabetes mellitus Other No family history of adverse response to anesthesia Social History Smoking Status: Current every day smoker Tobacco Type: Cigarettes Cigarettes Per Day: 2; Second Hand Exposure: Yes; Do You Dip or Chew Tobacco: No; Hx Alcohol Use: No Hx Substance Use: No Preferred Language: Spanish Communication Ability: Effective Orthopedic Nurse Required: No Beliefs That Will Affect Care: None marital status: Current Living Situation: Spouse Current Living Situation Comment: lives with and brother in law Feels Safe at Home: Yes Assistive Devices: None Review of Systems Review of Systems: All systems reviewed & are unremarkable except as noted in Subjective Physical Exam Physical Exam: Constitutional: Alert oriented x 3; not in distress. Chest; wound healing well. Respiratory: b/l vesicular breath sound Cardiovascular: RRR, no murmur, no edema Vessels: no JVD or carotid bruit Chest: normal inspection of chest Abdomen: normal bowel sounds, soft, nontender, no hepatosplenomegaly Musculoskeletal: no cyanosis or clubbing, extremities motor strength 5/5 Skin: no rashes, warm and dry normal turgor Neurologic: PERRL, EOMI, accommodation nl, no face palsy, no dysarthria CN's II- XI intact bilaterally and moves all extremities Results & Data Results & Data Vital Signs (Past 12 Hours) Vital Signs Temp Pulse Pulse Resp BP BP Pulse Ox 08/06/24 16:45 64 08/06/24 16:32 68 15 113/89 97 08/06/24 15:57 63 13 97/64 L 95 08/06/24 15:48 74 13 102/70 96 08/06/24 15:42 96 08/06/24 15:28 63 12 107/69 96 08/06/24 14:57 36.7 C 74 20 124/76 96 08/06/24 14:30 36.4 C L 71 14 92/71 L 98 O2 Del Method O2 Flow Rate 01/29/25 16:45 08/06/24 16:32 Room Air 08/06/24 15:57 Room Air 08/06/24 15:48 Room Air 08/06/24 15:42 Room Air 08/06/24 15:28 Room Air 08/06/24 14:57 Room Air 0 08/06/24 14:30 Room Air
[2024-08-06] MEDS ORDERED: FAMOTIDINE 20 MG TAB PO PRN (18:12)
[2024-08-06] MEDS ORDERED: NITROGLYCERIN SL 0.4 MG/TAB TAB SL PRN (18:12)
[2024-08-06] MEDS ORDERED: ACETAMINOPHEN 325 MG TAB PO PRN (18:56)
--- NOTE | 2024-08-06 19:55 | Urology Consultation ---
Date of Consultation August 06, 2024 Assessment & Plan (1) Urinary retention: Patient has been admitted to the hospital service. From a urologic perspective we recommend the following: Patient does have signs of obstructive uropathy as noted on CT scan as well as clinically She is known to have acute kidney injury likely due to bladder outlet obstruction Would recommend maintaining Bejarano catheter for 5 to 7 days at which time a voiding trial can be employedthis can be performed as an outpatient if he is discharged home Flomax has been initiated would recommend continuing this medication Serial labs should be followed Additional recommendations to be forthcoming based on his clinical course as it unfolds History of Present Illness Reason for Consultation: Urinary retention Attending Physician: Senthil Burris MD History of Present Illness This is a 74-year-old male who was admitted to [facility] through the emergency department as he was referred to the emergency department by visiting nurses. It was noted that the patient was having a great deal of difficulty standing due to bilateral lower extremity weakness. Urology was asked to consult on this patient due to urinary retention. I did question the patient on a urologic history and he notes he has never seen a urologist in the past. He does feel as though when he urinates his stream is strong. He does however report that he does feel as though he cannot empty his bladder completely and upon urinating will have to urinate shortly thereafter. He denies any dysuria or hematuria. He denies any back, flank, or abdominal pain. Since arrival hospital the patient has had labs and imaging which I independently reviewed. Chest x-ray showed no evidence of pneumothorax. He did have a pelvic x-ray that showed no evidence of fractures. He had a cervical spine CT scan showed no fractures. He had a CT scan of the head that showed no acute intracranial fractures or acute findings. CT scan of the abdomen pelvis showed the patient had no evidence of acute intra-abdominal injury. There is severe distention of the urinary bladder resulting in mild bilateral hydronephrosis noted. There is no evidence of kidney stones. Prostate gland was noted to be enlarged on the study. Labs include a CBC were white blood cell count platelet count were normal. Hemoglobin and hematocrit were 12.1 and 36.5. Coagulation studies showed an INR of 1.7. Chemistry profile showed sodium and potassium are normal. His BUN and creatinine were 26 and 1.7. Urinalysis was not indicative of infection. At the time of my interview he was resting comfortably in bed and he was in no distress. Allergies Allergy/AdvReac Type Severity Reaction Status Date / Time codeine Allergy Mild "SKIN Verified 06/25/24 09:05 STARTS FALLING OFF" Home Medications Medication Instructions Recorded Confirmed Type bupropion HCl 150 mg tablet,12 hr 150 mg PO BID 01/13/19 08/06/24 History sustained-release dutasteride 0.5 mg capsule 0.5 mg PO QDL 01/13/19 08/06/24 History ezetimibe 10 mg tablet 10 mg PO QAM 01/13/19 08/06/24 History nitroglycerin 0.4 mg sublingual 0.4 mg sublingual UD PRN Angina 01/13/19 08/06/24 History tablet ropinirole 0.5 mg tablet 0.5 mg PO HS 01/13/19 08/06/24 History rosuvastatin 40 mg tablet 40 mg PO QAM 01/13/19 08/06/24 History buspirone 5 mg tablet 5 mg PO BID 07/27/20 08/06/24 History famotidine 20 mg tablet 20 mg PO DAILY PRN Heartburn 10/17/22 08/06/24 History mirtazapine 15 mg tablet 15 mg PO HS 10/17/22 08/06/24 History clopidogrel 75 mg tablet 75 mg PO QAM #30 tabs 12/21/22 08/06/24 Rx amiodarone 200 mg tablet 200 mg PO QDB 08/06/24 08/06/24 History bisacodyl 10 mg rectal suppository 10 mg [place] DAILY 08/06/24 08/06/24 History carvedilol 3.125 mg tablet 3.125 mg PO AMPM 08/06/24 08/06/24 History cyanocobalamin (vitamin B-12) 1,000 mcg sublingual QAM 08/06/24 08/06/24 History 1,000 mcg sublingual tablet furosemide 40 mg tablet 40 mg PO QAM 08/06/24 08/06/24 History pantoprazole 40 mg tablet,delayed 40 mg PO QAM 08/06/24 08/06/24 History release (Protonix) polyethylene glycol 3350 17 17 g PO QAM 08/06/24 08/06/24 History gram/dose oral powder (Miralax) potassium chloride 10 mEq 20 meq PO QAM 08/06/24 08/06/24 History tablet,extended release(part/cryst) pregabalin 75 mg capsule 75 mg PO AMHS 08/06/24 08/06/24 History tamsulosin 0.4 mg capsule 0.4 mg PO QAM 08/06/24 08/06/24 History warfarin 1 mg tablet 1 mg PO QPM 08/06/24 08/06/24 History Patient History Medical History Hx of gout On anticoagulant therapy effient daily Restless leg syndrome Hypertension Hyperlipidemia 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 Box Sleep apnea oxygen--2L N/C Chronic obstructive pulmonary disease Asthma Surgical History History of bilateral cataract extraction History of cystoscopy History of lumbosacral spine surgery History of colonoscopy History of esophagogastroduodenoscopy (EGD) History of appendectomy History of tooth extraction all teeth History of tonsillectomy History of heart artery stent TOTAL OF 4 STENTS PLACED DURING 4 CATH PROCEDURES; last 2016 History of cardiac cath multiple--last 2016, [facility] Family History Sister Family history of diabetes mellitus Other No family history of adverse response to anesthesia Social History Smoking Status: Current every day smoker Tobacco Type: Cigarettes Cigarettes Per Day: 2; Second Hand Exposure: Yes; Do You Dip or Chew Tobacco: No; Hx Alcohol Use: No Hx Substance Use: No Preferred Language: Slovak Communication Ability: Effective Bracelet Former Required: No Beliefs That Will Affect Care: None marital status: Current Living Situation: Spouse Current Living Situation Comment: lives with and brother in law Feels Safe at Home: Yes Assistive Devices: None Review of Systems Review of Systems: All systems reviewed & are unremarkable except as noted in HPI & below Physical Exam Constitutional: WD/WN, vitals as above Eyes: no conjunctival abnormality ENMT: Ears: no hearing impairment and no external ear abnormality Mouth: no oropharynx abnormality Neck: trachea midline Respiratory: normal respiratory effort; no respiratory distress and no labored breathing Cardiovascular: Rate/Rhythm: regular rate and regular rhythm Gastrointestinal (Abdomen): Abdomen is soft and nondistended. There is no pain with palpation Musculoskeletal: No calf tenderness Skin: no rashes Neurologic: moves all extremities Psychiatric: A+Ox3, euthymic affect Genitourinary: No CVA tenderness with percussion bilaterally. The patient had a Bejarano catheter in place that appeared patent and was draining clear yellow urine Results & Data Vital Signs (Past 12 Hours) Vital Signs Temp Pulse Pulse Resp BP BP Pulse Ox 08/06/24 18:00 61 16 115/74 98 08/06/24 16:45 64 08/06/24 16:32 68 15 113/89 97 08/06/24 15:57 63 13 97/64 L 95 08/06/24 15:48 74 13 102/70 96 08/06/24 15:42 96 08/06/24 15:28 63 12 107/69 96 08/06/24 14:57 36.7 C 74 20 124/76 96 08/06/24 14:30 36.4 C L 71 14 92/71 L 98 O2 Del Method O2 Flow Rate 08/06/24 18:00 Room Air 08/06/24 16:45 08/06/24 16:32 Room Air 08/06/24 15:57 Room Air 08/06/24 15:48 Room Air 08/06/24 15:42 Room Air 08/06/24 15:28 Room Air 08/06/24 14:57 Room Air 0 08/06/24 14:30 Room Air PG Care Time/CCT Total # of Minutes Spent Total Time Spent with Patient: Total time spent is greater than 50% in coordination of care (as documented) at patient's floor/unit and/or counseling patient: Coding Level of Care Code 58421 INT INP/OBS CARE 3/75MIN Diagnoses Urinary retention R33.9
--- NOTE | 2024-08-06 20:37 | Emergency Department Note ---
History of Present Illness General Chief complaint: Trauma Stated complaint: SYNCOPE, HEADACHE Time Seen by Provider: 08/06/24 14:39 History of Present Illness Provider complaint: Fall 74-year-old male on Coumadin four weeks status post CABG presents emergency department for fall. Patient states he felt good earlier today and then when his home health care nurse that there he felt very weak and fell. Home Medications Medication Instructions Recorded Confirmed Type bupropion HCl 150 mg tablet,12 hr 150 mg PO BID 01/13/19 08/06/24 History sustained-release dutasteride 0.5 mg capsule 0.5 mg PO QDL 01/13/19 08/06/24 History ezetimibe 10 mg tablet 10 mg PO QAM 01/13/19 08/06/24 History nitroglycerin 0.4 mg sublingual 0.4 mg sublingual UD PRN Angina 01/13/19 08/06/24 History tablet ropinirole 0.5 mg tablet 0.5 mg PO HS 01/13/19 08/06/24 History rosuvastatin 40 mg tablet 40 mg PO QAM 01/13/19 08/06/24 History buspirone 5 mg tablet 5 mg PO BID 07/27/20 08/06/24 History famotidine 20 mg tablet 20 mg PO DAILY PRN Heartburn 10/17/22 08/06/24 History mirtazapine 15 mg tablet 15 mg PO HS 10/17/22 08/06/24 History clopidogrel 75 mg tablet 75 mg PO QAM #30 tabs 12/21/22 08/06/24 Rx amiodarone 200 mg tablet 200 mg PO QDB 08/06/24 08/06/24 History bisacodyl 10 mg rectal suppository 10 mg [place] DAILY 08/06/24 08/06/24 History carvedilol 3.125 mg tablet 3.125 mg PO AMPM 08/06/24 08/06/24 History cyanocobalamin (vitamin B-12) 1,000 mcg sublingual QAM 08/06/24 08/06/24 History 1,000 mcg sublingual tablet furosemide 40 mg tablet 40 mg PO QAM 08/06/24 08/06/24 History pantoprazole 40 mg tablet,delayed 40 mg PO QAM 08/06/24 08/06/24 History release (Protonix) polyethylene glycol 3350 17 17 g PO QAM 08/06/24 08/06/24 History gram/dose oral powder (Miralax) potassium chloride 10 mEq 20 meq PO QAM 08/06/24 08/06/24 History tablet,extended release(part/cryst) pregabalin 75 mg capsule 75 mg PO AMHS 08/06/24 08/06/24 History tamsulosin 0.4 mg capsule 0.4 mg PO QAM 08/06/24 08/06/24 History warfarin 1 mg tablet 1 mg PO QPM 08/06/24 08/06/24 History Allergies Allergy/AdvReac Type Severity Reaction Status Date / Time codeine Allergy Mild "SKIN Verified 06/25/24 09:05 STARTS FALLING OFF" Past Med/Surg History Problem List (Updated 08/06/24 @ 20:46 by Nabil Landis MD) BIJAL (acute kidney injury) (Acute) Syncope (Acute) Urinary retention BIJAL (acute kidney injury) Lumbar radiculopathy Ischemic cardiomyopathy Smoker Hypertensive emergency Hypertensive emergency without congestive heart failure On home oxygen therapy 2L N/C at hs Weakness Hypertensive urgency Asthma (Chronic) CAD (coronary artery disease) (Chronic) COPD (chronic obstructive pulmonary disease) (Acute) DM type 2 (diabetes mellitus, type 2) (Chronic) Chronic systolic heart failure (Chronic) Pulmonary nodule (Chronic) BPH (benign prostatic hypertrophy) (Chronic) Dyslipidemia (Chronic) Gout (Chronic) HTN (hypertension) (Chronic) Restless legs syndrome (RLS) (Chronic) Lowe's esophagus (Chronic) Stented coronary artery (Chronic) "LAD stent 10/08/04" History of back surgery (Chronic) History of prostate surgery (Chronic) "TULIP" H/O cystoscopy (Chronic) Precordial chest pain (Acute) TIA (transient ischemic attack) (Acute) Encounter for pre-operative examination Encounter for pre-operative examination Encounter for pre-operative examination TIA (transient ischemic attack) (Acute) HTN (hypertension) (Acute) Headache (Acute) GERD (gastroesophageal reflux disease) (Chronic) Medical History Hx of gout On anticoagulant therapy effient daily Restless leg syndrome Hypertension Hyperlipidemia 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 Box Sleep apnea oxygen--2L N/C Chronic obstructive pulmonary disease Asthma Surgical History History of bilateral cataract extraction History of cystoscopy History of lumbosacral spine surgery History of colonoscopy History of esophagogastroduodenoscopy (EGD) History of appendectomy History of tooth extraction all teeth History of tonsillectomy History of heart artery stent TOTAL OF 4 STENTS PLACED DURING 4 CATH PROCEDURES; last 2016 History of cardiac cath multiple--last 2017, [facility] Family History Sister Family history of diabetes mellitus Other No family history of adverse response to anesthesia Social History Smoking Status: Current every day smoker Tobacco Type: Cigarettes Cigarettes Per Day: 2; Second Hand Exposure: Yes; Do You Dip or Chew Tobacco: No; Hx Alcohol Use: No Hx Substance Use: No Preferred Language: Cook Islander Communication Ability: Effective Crisis Specialist Required: No Beliefs That Will Affect Care: None marital status: Current Living Situation: Spouse Current Living Situation Comment: lives with and brother in law Feels Safe at Home: Yes Assistive Devices: None Physical Exam Vital Signs Vital Signs - 24 hr 08/06/24 14:30 08/06/24 14:57 08/06/24 15:28 Temperature 36.4 C L 36.7 C Temperature Source Oral Pulse Rate 71 74 Pulse Rate [Apical] 63 Pulse Strength [Left Carotid] Normal Respiratory Rate 14 20 12 Respiratory Effort / Characteristics Respiratory Depth Normal Respiratory Pattern Blood Pressure 92/71 L 124/76 Blood Pressure [Left Arm] 107/69 Blood Pressure Mean 78 Blood Pressure Mean [Left Arm] 81 Pulse Oximetry 98 96 96 Oxygen Delivery Method Room Air Room Air Room Air Oxygen Flow Rate 0 Sepsis Recent Fever Within 48 Hours No Sepsis New/Unexplained Change in Mental Status No Sepsis Action Taken by Nursing No Action Required 08/06/24 15:42 08/06/24 15:48 08/06/24 15:57 Temperature Temperature Source Pulse Rate Pulse Rate [Apical] 74 63 Pulse Strength [Left Carotid] Respiratory Rate 13 13 Respiratory Effort / Characteristics Non-Labored Spontaneous Non-Labored Respiratory Depth Normal Normal Respiratory Pattern Regular Regular Blood Pressure Blood Pressure [Left Arm] 102/70 97/64 L Blood Pressure Mean Blood Pressure Mean [Left Arm] 80 75 Pulse Oximetry 96 96 95 Oxygen Delivery Method Room Air Room Air Room Air Oxygen Flow Rate Sepsis Recent Fever Within 48 Hours Sepsis New/Unexplained Change in Mental Status Sepsis Action Taken by Nursing 08/06/24 16:32 08/06/24 16:45 Temperature Temperature Source Pulse Rate 64 Pulse Rate [Apical] 68 Pulse Strength [Left Carotid] Respiratory Rate 15 Respiratory Effort / Characteristics Non-Labored Respiratory Depth Normal Respiratory Pattern Regular Blood Pressure Blood Pressure [Left Arm] 113/89 Blood Pressure Mean Blood Pressure Mean [Left Arm] 97 Pulse Oximetry 97 Oxygen Delivery Method Room Air Oxygen Flow Rate Sepsis Recent Fever Within 48 Hours Sepsis New/Unexplained Change in Mental Status Sepsis Action Taken by Nursing Physical Exam HENT: Exam performed. - Head: Normocephalic and atraumatic. - Mouth/Throat: The oropharynx is clear and moist. No trismus in the jaw. No dental abscesses or uvula swelling. No oropharyngeal exudate or tonsillar abscesses. EYES: Conjunctivae and EOM are normal. Pupils are equal, round, and reactive to light. Right eye exhibits no discharge. Left eye exhibits no discharge. No scleral icterus. NECK: Normal range of motion. Neck supple. No JVD present. No spinous process tenderness present. No rigidity. No tracheal deviation and normal range of motion present. CV: Normal rate, regular rhythm, normal heart sounds and intact distal pulses. There is no peripheral edema. Palpable radial pulses bue. PULM/CHEST: Effort normal and breath sounds normal. No respiratory distress. No stridor. He has no wheezes. He has no rales. - Chest Wall: He exhibits no tenderness bilaterally. No crepitus bilaterally. ABD: The abdomen is soft. There is no tenderness. There is no rebound, no guarding MUSC/SKEL: Pelvis stable. NEURO: He is alert and oriented to person, place, and time. He has normal strength. No cranial nerve deficit or sensory deficit. Course Course 1439: The patient was evaluated in room B3. A complete history and physical exam was performed Cardiac monitoring: An order was placed for continuous cardiac monitoring. The monitor shows a rate of 70 with sinus rhythm interpreted by me Trauma alert called as the patient was a fall on Coumadin. 1525: [id number] i-STAT shows creatinine of 1.7. CT abdomen pelvis will be changed to CT without contrast. 1645: Vital signs stable. Imaging shows no acute traumatic injury but does show severely distended bladder with bilateral hydroureteronephrosis. Bejarano catheter was placed and drained 1600 cc of urine. Patient be admitted to the hospitalist team for syncope as well as BIJAL as patient's creatinine today is 1.7 and has normal creatinine is less than 1.5. Administered Medications Discontinued Medications Sodium Chloride (Nss) 1,000 mls @ 999 mls/hr IV .Q1H1M ONE Stop: 08/06/24 15:40 Last Infusion: 08/06/24 15:48 Dose: Infused Documented By: Admin: 08/06/24 14:45 Dose: 999 mls/hr Documented By: JANINA Sodium Chloride (Nss) 1,000 mls @ 999 mls/hr IV .Q1H1M ONE Stop: 08/06/24 17:49 Last Infusion: 08/06/24 18:08 Dose: Infused Documented By: Admin: 08/06/24 16:53 Dose: 999 mls/hr Documented By: JANINA Critical Care Time Critical Care Time: Yes Total Critical Care Time: 37 I have personally spent greater than 37 minutes of critical care time in the direct management of this patient. This includes bedside care, interpretation of diagnostic studies, and testing, discussion with consultants, patient, and family members, and other required patient management activities. This 37 minutes is in excess of all separately billable procedures. Medical Decision Making Laboratory Data Attestation: I reviewed the patient's lab results. 08/06/24 14:35 08/06/24 14:35 Lab Results 08/06/24 08/06/24 08/06/24 Range/Units 14:35 15:01 16:34 WBC 6.77 (4.8-10.8) K/ul RBC 3.81 L (4.70-6.10) M/uL Hgb 12.1 L (14.0-18.0) g/dl Hct 36.5 L (42.0-52.0) % MCV 95.8 (80.0-100.0) fL MCH 31.8 (25.0-34.0) pg MCHC 33.2 (32.0-36.0) g/dL RDW Std Deviation 50.0 H (36.4-46.3) fL RDW Coeff of Lakesha 14.4 (11.5-14.5) % Plt Count 186 (130-400) K/uL MPV 11.4 (9.4-12.4) fL Immature Gran % (Auto) 0.1 % Neut % (Auto) 57.9 % Lymph % (Auto) 25.3 % [place] % (Auto) 8.3 % Eos % (Auto) 7.8 % Baso % (Auto) 0.6 % Neut # (Auto) 3.92 (1.40-6.50) K/uL Lymph # (Auto) 1.71 (1.20-3.40) K/uL [place] # (Auto) 0.56 (0.11-0.59) K/uL Eos # (Auto) 0.53 H (0.00-0.50) K/uL Baso # (Auto) 0.04 (0.00-0.20) K/uL Immature Gran # (Auto) 0.01 (0.01-0.20) K/uL PT 17.8 H (9.0-12.0) Seconds INR 1.7 H (0.9-1.1) APTT 37 H (21-31) Seconds PTT Ratio 1.4 VBG pH 7.33 L (7.36-7.41) VBG pCO2 60 H (38-50) mmHg VBG pO2 < 20 mmHg VBG HCO3 32 mmol/L VBG O2 Saturation < 60.0 % VBG Base Excess 4.0 mEq/L Sodium 143 (136-145) mmol/L Potassium 4.3 (3.5-5.1) mmol/L Chloride 105 (98-107) mmol/L Carbon Dioxide 32 (21-32) mmol/L Anion Gap 6 (3-11) BUN 26 H (6-23) mg/dl Creatinine 1.71 H (0.6-1.4) mg/dl Est Cr Clr Drug Dosing 37.9 ml/min eGFR 41.49 BUN/Creatinine Ratio 15.2 (10-20) Glucose 161 H (70-99(Fasting)) mg/dl Calcium 8.9 (8.6-10.3) mg/dl Total Bilirubin 0.4 (0.2-1.0) mg/dl AST 44 H (13-39) U/L ALT 115 H (7-52) U/L Alkaline Phosphatase 129 H (34-104) U/L Total Creatine Kinase 59 (30-223) U/L Troponin I High Sens 23.8 H 20.7 H (0-20) pg/ml Total Protein 6.9 (6.0-8.3) gm/dl Albumin 4.0 (3.4-5.0) gm/dl Globulin 2.9 (2.5-4.0) gm/dl Albumin/Globulin Ratio 1.4 (0.9-2) Lipase 44 (11-82) U/L Urine Color Yellow Urine Appearance Clear (Clear) Urine pH 7.0 (4.5-7.5) Ur Specific Crosby 1.015 (1.000-1.030) Urine Protein Negative (Negative) Urine Glucose (UA) Negative (Negative) Urine Ketones Negative (Negative) Urine Blood Negative (Negative) Urine Nitrite Negative (Negative) Urine Bilirubin Negative (Negative) Urine Urobilinogen Negative (Negative) Ur Leukocyte Esterase Negative (Negative) Blood Type O Negative Antibody Screen NEGATIVE Imaging Data Radiologist's Impression: Chest X-Ray 08/06/24 14:53 XR chest 1V portable CLINICAL HISTORY: Trauma COMPARISON STUDY: Chest CT May 26, 2014. Chest radiograph December 20, 2022. FINDINGS: Status post median sternotomy. Mild cardiomegaly is noted. There is no pneumothorax or pleural effusion. Left basilar densities favor atelectasis. 1.7 cm nodular left midlung density is present. IMPRESSION: 1. No pneumothorax. 2. 1.7 cm nodular left midlung density. This is likely artifactual or atelectatic. A pulmonary nodule is considered less likely however follow-up PA and lateral chest radiographs are recommended. ACT 112: Negative or not required by law. Electronically signed by: Nacho Eaton M.D. 08/06/2024 3:32 PM Pelvis X-Ray 08/06/24 14:53 XR pelvis 1-2V routine CLINICAL HISTORY: Trauma COMPARISON: None FINDINGS: Single view of the pelvis demonstrates a no evidence of acute traumatic injury. There is no fracture identified. Is no hip dislocation. Lumbosacral fusion is noted. Prominent stool seen throughout the colon. Mildly distended urinary bladder. IMPRESSION: No acute traumatic injury. ACT 112: Negative or not required by law. Electronically signed by: Jhoana Avalos M.D. 08/06/2024 3:[address] 08/06/24 14:54 CT cervical spine wo con CT DOSE: 480 CLINICAL HISTORY: Trauma. COMPARISON: 12/18/2022 TECHNIQUE: Multiple axial CT images of the cervical spine were obtained without contrast. A dose lowering technique was utilized adhering to the principles of ALARA. FINDINGS: There is diffuse degenerative disc disease. No fracture or subluxation. IMPRESSION: No fracture seen. ACT 112: Negative or not required by law. The above report was generated using voice recognition software. It may contain grammatical, syntax or spelling errors. Electronically signed by: Edson Lyman M.D. 08/06/2024 3:[address] 08/06/24 14:54 CT OF THE HEAD WITHOUT CONTRAST CLINICAL HISTORY: Trauma COMPARISON STUDY: Head CT, CTA of the head and MRI of the brain December 18, 2022. TECHNIQUE: Helical axial images of the head were obtained without IV contrast. Automated exposure control was utilized for the study. A dose lowering technique was utilized adhering to the principles of ALARA. FINDINGS: No acute intracranial hemorrhage, midline shift or mass effect is present. White matter hypodensities suggest small vessel disease. The ventricular system is unremarkable. The basal cisterns are patent. No extra- axial collections are present. There are no findings to suggest acute dural sinus thrombosis or acute territorial infarct. No significant calvarial abnormalities are present. Visualized portions of the sinuses and mastoid air cells are clear. IMPRESSION: 1. No acute intracranial findings. 2. No calvarial fractures. ACT 112: Negative or not required by law. Electronically signed by: Nacho Eaton M.D. 08/06/2024 3:58 PM Abdomen/Pelvis CT 08/06/24 15:[address] WITHOUT CONTRAST CT DOSE: 2017.91 mGy.cm HISTORY: trauma TECHNIQUE: Multiaxial CT images of the abdomen and pelvis were performed without contrast. A dose lowering technique was utilized adhering to the principles of ALARA. COMPARISON STUDY: 06/30/2019 FINDINGS: ABDOMEN: Liver, spleen, pancreas, kidneys, and adrenal glands show no evidence of acute injury on this non-IV contrast exam. There are a few small renal cysts. There are scattered atherosclerotic calcifications. No abdominal aortic aneurysm. There is interval mild bilateral hydronephrosis with no renal or ureteral calculi. Pelvis: Prostate is enlarged. Urinary bladder is severely distended, likely the cause of the mild bilateral hydronephrosis. There is moderate retained stool. No bowel inflammation or obstruction. No free fluid, free air, or abscess. Osseous structures: There is laminectomy and metallic fusion at L4-5. There are mild diffuse degenerative changes at the lumbar spine and hips. No acute fracture seen at the visualized osseous structures. IMPRESSION: 1. No evidence of acute injury seen. 2. Severe distention of the urinary bladder causes mild bilateral hydronephrosis. 3. Otherwise as described. ACT 112: Negative or not required by law. The above report was generated using voice recognition software. It may contain grammatical, syntax or spelling errors. Electronically signed by: Edson Lyman M.D. 08/06/2024 4:03 PM ECG Data Attestation: I personally reviewed and interpreted this ECG as follows: Rate (beats per minute): 68 Rhythm: + normal sinus ECG Intervals/blocks: + Normal QRS, + Normal [place] and + Normal QT-c ECG ST segments: + Normal ST segments MDM Narrative 1439: The patient was evaluated in room B3. A complete history and physical exam was performed Cardiac monitoring: An order was placed for continuous cardiac monitoring. The monitor shows a rate of 70 with sinus rhythm interpreted by me Trauma alert called as the patient was a fall on Coumadin. 1525: Kldxj-la-aibj i-STAT shows creatinine of 1.7. CT abdomen pelvis will be changed to CT without contrast. 1645: Vital signs stable. Imaging shows no acute traumatic injury but does show severely distended bladder with bilateral hydroureteronephrosis. Bejarano catheter was placed and drained 1600 cc of urine. Patient be admitted to the hospitalist team for syncope as well as BIJAL as patient's creatinine today is 1.7 and has normal creatinine is less than 1.5. Impression & Plan Syncope, BIJAL (acute kidney injury) Discharge Plan Visit Data Chief Complaint: Trauma Stated Complaint: SYNCOPE, HEADACHE ED Provider: Nabil Landis Discharge Problem: Syncope, BIJAL (acute kidney injury) Patient Disposition: Admitted As Inpatient Discharge Instructions Interventions: ED Discharge Assessment Last Done: 08/06/24 18:56
[2024-08-06] MEDS: rOPINIRole HCL 0.25 MG TABLET PO SCH (20:58)
[2024-08-06] MEDS: PREGABALIN 75 MG CAP PO SCH (20:58)
[2024-08-06] MEDS: buPROPion SR 150 MG TABCR PO SCH (20:58)
[2024-08-06] MEDS: WARFARIN SOD 1 MG TAB PO SCH (21:00)
[2024-08-06] MEDS: busPIRone 5 MG TAB PO SCH (21:00)
[2024-08-06] MEDS: MIRTAZAPINE TAB 15 MG TAB PO SCH (21:00)
[2024-08-06] MEDS: carvediloL 3.125 MG TAB PO SCH (21:29)
[2024-08-06] MEDS: NICOTINE 21 MG/24 HR TDSY TD SCH (21:29)
[2024-08-06 21:57] LABS: BUN Creatinine Ratio 15.4 (10-20); Calcium 7.7 mg/dl (8.6-10.3); Creatinine Clr Calc Pharmacy 45.3 ml/min; Potassium 4.2 mmol/L (3.5-5.1)
--- OUTSIDE RECORDS SUMMARY | 2024-08-06 22:31 | External Medical Summary ---
Author Name Unknown Address Unknown Organization K01:[facility] - [facility] [place] [address] [facility] [place] [id number] Laboratory Report Ordering Provider Test Date Status LUC BYRNES 08/01/2024 11:05:56 Final Observation Date Value Abnormality Reference (Units ) Status WBC, Total 08/01/2024 11:05:56 7.13 4.00-10.80 (K/uL) Final RBC 08/01/2024 11:05:56 3.90 4.50-5.25 (M/uL) Final Hemoglobin 08/01/2024 11:05:56 12.2 Below low normal 14.0-16.8 (g/dL) Final HCT 08/01/2024 11:05:56 38.8 Below low normal 40.0-48.4 (%) Final MCV 08/01/2024 11:05:56 99.5 82.0-99.5 (fL) Final MCH 08/01/2024 11:05:56 31.3 27.0-34.0 (pg) Final MCHC 08/01/2024 11:05:56 31.4 32.0-36.0 (g/dL) Final RDW 08/01/2024 11:05:56 14.0 11.5-15.5 (%) Final Platelets 08/01/2024 11:05:56 265 140-400 (K/uL) Final MPV 08/01/2024 11:05:56 11.5 6.6-11.1 (fL) Final Nucleated erythrocytes/100 leukocytes [Ratio] in Blood by Automated count 08/01/2024 11:05:56 0 <=0 (/100 WBCs) Final Performing Location [facility] - [address] [facility] [place] [id number]
--- OUTSIDE RECORDS SUMMARY | 2024-08-06 22:31 | External Medical Summary ---
Author Name Unknown Address Unknown Organization K01:[facility] [place] - [address] [facility] [id number] Laboratory Report Ordering Provider Test Date Status LUC BYRNES 08/01/2024 11:05:56 Final Observation Date Value Abnormality Reference (Units ) Status BUN 08/01/2024 11:05:56 21 Above high normal 6-20 (mg/dL) Final Creatinine 08/01/2024 11:05:56 1.5 Above high normal 0.6-1.2 (mg/dL) Final Glomerular filtration rate/1.73 sq M.predicted [Volume Rate/Area] in Serum, Plasma or Blood by Creatinine-based formula (CKD-EPI) 08/01/2024 11:05:56 49 Below low normal >=60 (mL/min) Final eGFR is calculated based on the CKD-EPI 2020 equation. Sodium 08/01/2024 11:05:56 143 135-146 (m mol/L) Final Potassium 08/01/2024 11:05:56 4.3 3.5-5.1 (m mol/L) Final Cl 08/01/2024 11:05:56 104 98-107 (mm ol/L) Final CO2 08/01/2024 11:05:56 26 22-32 (mmo l/L) Final Anion gap 08/01/2024 11:05:56 13 7-15 (mmol /L) Final Glucose 08/01/2024 11:05:56 112 70-120 (mg /dL) Final Albumin 08/01/2024 11:05:56 4.2 3.8-5.0 (g /dL) Final AST (Aspartate aminotransferase) 08/01/2024 11:05:56 54 Above high normal 10-50 (U/L) Final Alk Phos 08/01/2024 11:05:56 141 Above high normal 35 -130 (U/L) Final Bilirubin, Total 08/01/2024 11:05:56 0.3 <=1 .2 (mg/dL) Final Calcium 08/01/2024 11:05:56 9.0 8.4-10.2 ( mg/dL) Final Protein 08/01/2024 11:05:56 6.5 6.0-8.3 (g /dL) Final ALT (Alanine aminotransferase) 08/01/2024 11:05:56 67 Above high normal 10-50 (U/L) Final Performing Location [facility] [place] - [address] [facility] [id number]
--- OUTSIDE RECORDS SUMMARY | 2024-08-06 22:31 | External Medical Summary ---
Author Name Unknown Address Unknown Organization : Laboratory Report Ordering Provider Test Date Status MU HENDERSON 08/05/2024 13:43:23 Final Therapeutic ranges for non-o perative patients:
Prophylaxsis/treatment of DVT: (Range:2.0-3.0)
Treatment of pulmonary embolism:(Range:2.0-3.0)
Prevention of systemic embolism from:
-tissue heart valves
-acute myocardial infarction
-valvular heart disease
-atrial fibrillation
(Range: 2.0-3.0)
Mechanical prosthetic valves: (Range: 2.5-3.5) Observation Date Value Abnormality Reference (Units ) Status INR in Capillary blood by Coagulation assay 08/05/2024 13:43:23 2.8 (INR) Final Performing Location
--- OUTSIDE RECORDS SUMMARY | 2024-08-06 22:31 | External Medical Summary | Summary of Care ---
Author Name Unknown Organization [facility] Address [address] [place] [address] Phone [phone] Care Team Providers Care Drafter Landscape Name Role Phone Leon Galvan DO Primary Care Provider [phone] Reason for Referral * Evaluate & Treat - Unlimited Visits (Within 10 days (routine)) - Authorized Specialty Diagnoses / Procedures Referred By Katie berman Referred To Contact Pharmacist / Pharmacy Diagnoses Tobacco use disorder Leon Galvan DO [address] [place] [address] Phone: tel: fax: Referral ID Status Reason Start Date Expiration Date Visits Requested Visits Authorized [id number] Authorized Specialty Services Required 08/01/2024 01/28/2025 99 99 Question Answer Referral Priority Within 10 days (routine) Where should this appointment be scheduled? [facility] Referring Provider Role: Primary Care Reason for Referral: Smoking Cessation Comments Pharmacist Medication Therapy Management: Minimum frequency patient should be seen in person for medication management: as appropriate per clinical condition and patient status By my signature, I understand that my patient Henri Vigil will have his medication therapy managed by the [facility] ([facility]) per established policies, procedures, and protocols. I also certify that this referral may serve as an initiation of service for the management of drug therapy in the above noted patient. [facility] providers will be responsible for scheduling patient visits, obtaining appropriate laboratory studies, and adjusting medication management therapy per patient's need, in addition to those roles spelled out in the clinic policy, procedures, and drug management protocols. I understand that the service provided by the [facility] is voluntary and have informed patient that they can refuse the service at their discretion. I am aware that the [facility] will provide me with a copy of the patient encounter via my [employer]. I authorize the [facility] to carry out these activities on my behalf. I consider this program to be a necessary part of the patient's medical care. Leon Galvan DO Reason for Visit * Reason Onset Date Comments Hospital Follow-Up Hospital Follow-Up 08/01/2024 Encounter Details Date Type Department Care Team (Latest Contact Info) Description 08/01/2024 10:00 AM EST Office Visit Family Practice [address] [place] [address] [place] [address] Leon Galvan DO [address] [place] [address] S/P CABG x 4*; Atrial fibrillation, unspecified type ([facility]); LV (left ventricular) mural thrombus; Cerebrovascular disease, arteriosclerotic, post-stroke; COPD, group D, by GOLD 2017 classification ([facility]); Coronary artery disease involving navajo coronary artery of navajo heart with unstable angina pectoris ([facility]); Heart failure, systolic, due to CAD ([facility]); Degeneration of intervertebral disc of lumbar region with discogenic back pain and lower extremity pain; Restless legs syndrome; Right renal mass; Vitamin B 12 deficiency; Tobacco use disorder; Gastroesophageal reflux disease without esophagitis; Impaired mobility and ADLs; Hospital discharge follow-up Allergies Active Allergy Reactions Criticality Noted Date Comments Codeine Other (Please comment) High 09/08/2013 Severe Skin peeling documented as of this encounter (statuses as of 08/01/2024) Medications oxygen GASIndications: Chronic coronary artery disease,COPD, mild (HCC),Heart failure, systolic, due to CAD ([facility]) Use 2 L/min(Oxygen) as directed at bedtime. 1 Each 10/21/19 17 Active Acetaminophen 325 MG Oral Tablet Take 1 Tablet by mouth every 6 hours as needed. Active Dutasteride 0.5 MG Oral Capsule (Avodart)Indica tions:BPH with obstruction/low er urinary tract symptoms Take 1 Capsule by mouth in the morning. 100 Capsule 3 4 10:41 AM EDT 02/07/20 23 Active Additional Information Patient taking differently:0.5 mg OralDAILY NOON, Reported on 08/01/2024 buPROPion HCl ER (SR) 150 MG Oral Tablet Extended Release 12 Hour (Wellbutrin SR)Indications: Tobacco use disorder Take 1 Tablet by mouth in the morning and 1 Tablet before bedtime. 200 Tablet 3 4 10:41 AM EDT 02/07/20 23 Active busPIRone HCl 5 MG Oral Tablet (Buspar)Indicat ions:Anxiety state Take 1 Tablet by mouth in the morning and 1 Tablet before bedtime. 200 Tablet 3 4 10:41 AM EDT 02/07/20 23 Active Ezetimibe 10 MG Oral Tablet (Zetia)Indicati ons:Dyslipidemi a, goal LDL below 70 TAKE ONE TABLET BY MOUTH DAILY 100 Tablet 3 4 10:41 AM EDT 02/07/20 23 Active Mirtazapine 15 MG Oral Tablet (Remeron)Indica tions:Anxiety state Take 1 Tablet by mouth at bedtime. 100 Tablet 3 4 10:41 AM EDT 02/08/20 23 Active Rosuvastatin Calcium 40 MG Oral Tablet (Crestor)Indica tions:HTN, goal below 140/90 Take 1 Tablet by mouth in the morning. 100 Tablet 3 4 6:45 AM EDT 08/17/19 24 Active Clopidogrel Bisulfate 75 MG Oral Tablet (pLAVix)Indicat ions:HTN, goal below 140/90 Take 1 Tablet by mouth in the morning. 100 Tablet 3 4 10:41 AM EDT 08/17/19 24 Active Tamsulosin HCl 0.4 MG Oral Capsule (Flomax) Take 1 Capsule by mouth in the morning. 90 Capsule 3 4 3:56 PM EDT 10/18/19 24 Active Additional Information Patient taking differently:0.4 mg OralDAILY NOON, Reported on 08/01/2024 Pregabalin 75 MG Oral Capsule (Lyrica) Take 1 Capsule by mouth in the morning and 1 Capsule before bedtime. 60 Capsule 07/15/19 25 Active Furosemide 40 MG Oral Tablet (Lasix) Take 1 Tablet by mouth in the morning. 30 Tablet 07/15/19 25 Active Amiodarone HCl 200 MG Oral Tablet (Cordarone) Take 1 Tablet by mouth daily with breakfast. 14 Tablet 07/29/19 25 Active Carvedilol 3.125 MG Oral Tablet (Coreg) Take 1 Tablet by mouth 2 times a day with morning and evening meals. 28 Tablet 07/29/19 25 Active Potassium Chloride Joyce ER 10 MEQ Oral Tablet Extended Release Take 2 Tablets by mouth in the morning. 28 Tablet 07/29/19 25 Active Warfarin Sodium 1 MG Oral Tablet (Coumadin) Take 1 tablet by mouth daily as directed by discharged instructions and the anticoagulation clinic. 14 Tablet 07/30/19 25 Active Pantoprazole Sodium 40 MG Oral Tablet Delayed Release (Protonix)Indic ations:Gastroes ophageal reflux disease without esophagitis Take 1 Tablet by mouth in the morning. 30 Tablet 07/30/19 25 Active B-12-SL 1000 MCG Sublingual Tablet Sublingual (Cyanocobalamin )Indications:Vi tamin B [address] 1,000 mcg under the tongue in the morning. 08/01/19 25 Active rOPINIRole HCl 0.5 MG Oral Tablet (Requip)Indicat ions:Restless legs syndrome Take 1 Tablet by mouth at bedtime. 08/01/19 25 Active rOPINIRole HCl 0.5 MG Oral Tablet (Requip)Indicat ions:Restless legs syndrome Take 1 Tablet by mouth in the morning and 1 Tablet at noon and 1 Tablet before bedtime. With food. 300 Tablet 3 4 10:41 AM EDT 02/07/20 23 025 Discontin ued(Refil l) Famotidine 20 MG Oral Tablet (Pepcid)Indicat ions:Gastroesop hageal reflux disease without esophagitis Take 1 Tablet by mouth in the morning. 30 Tablet 07/30/19 25 025 Discontin ued(Medic ation/Dos e Changed) documented as of this encounter (statuses as of 08/01/2024) Active Problems Problem Noted Date Diagnosed Date Atrial fibrillation 08/01/2024 Impaired mobility and ADLs 07/17/2024 S/P CABG x 4 07/08/2024 Coronary artery disease invo lving navajo coronary artery of navajo heart with unstable angina pectoris 07/03/2024 Vitamin B 12 deficiency 04/07/2022 HTN, goal below 140/90 12/02/2021 Lumbar degenerative disc disease 11/30/2021 Anxiety state 01/13/2020 COPD, group D, by GOLD 2017 classification 07/21 Overview: Per COPD GOLD Classification Right renal mass 03/08/2018 Cognitive changes 01/22/2018 Cerebrovascular disease, arteriosclerotic, post- stroke 01/22/2018 Restless legs syndrome 03/17/2015 Gout 01/25/2015 Pulmonary nodule 06/01/2014 Heart failure, systolic, due to CAD 09/08/2013 Old MO (myocardial infarction) 09/08/2013 Dyslipidemia, goal LDL below 70 06/15/2009 Overview (06/15/2009): Per Lipid Taxonomy. Esophageal reflux 12/03/2007 BPH without obstruction/lower urinary tract symp toms 08/03/2006 Tobacco use disorder 06/03/2002 documented as of this encounter (statuses as of 08/01/2024) Resolved Problems Problem Noted Date Diagnosed Date Resolved Date Type 2 diabetes mellitus wit h autonomic neuropathy 08/17/2023 09/17/2023 Atherosclerosis of navajo co ronary artery without angina pectoris 08/17/2023 09/17/2023 Prediabetes 02/13/2022 08/23/2023 Overview: Per Prediabetes protocol Coronary artery disease with stable angina pectoris 08/08/2021 07/28/2024 Food insecurity 07/18/2021 11/17/2021 Overview: Per [facility] Protocol Chronic stable angina 07/11/20192021 COPD, group B, by GOLD 2017 classification 12/16/2018 07/24/2019 Overview: Per COPD GOLD Classification Prediabetes 02/19/2018 07/24/2024 Overview: Per Prediabetes protocol #1 - Benign hypertensive heart di sease with diastolic CHF, NYHA class 2 03/07/2017 05/14/2017 AAA (abdominal aortic aneurysm) 11/19/2015 11/29/2016 Overview (11/19/2015): 10/29/15 screening for AAA 3 cm HTN, goal below 150/90 09/10/201508/19 Type 2 diabetes mellitus wit h hemoglobin A1c goal of less than 7.0% 09/08/2013 03/07/2017 Overview (11/02/2015): ICD-10 update of inactive term Gout 09/08/2013 01/25/2015 Beta-blockers contraindicated 11/23/2008 09/08/2013 Aspirin contraindicated 11/23/200809/2013 COPD, mild 05/24/2005 12/18/2018 ADVANCE DIRECTIVE INFORMATION 11/09/2004 05/12/2024 Overview (11/09/2004): Brochure given to pt. at this time. Chronic coronary artery disease 08/28/2002 08/08/2021 Mixed dyslipidemia 08/28/2002 9 Overview (06/15/2009): Per Lipid Taxonomy. Other chest pain 08/28/2002 12/03/2007 documented as of this encounter (statuses as of 08/01/2024) Immunizations Name Administration Dates Next Due COVID-19 mRNA, LNP-s, No Pre serve, 2-Dose Series (Moderna) 12/22/2020,11/23/2020 COVID-19, MRNA-LNP, PF, 30 M CG/0.3 mL, 12 YRS AND ABOVE, IM (PFIZER-Comirnaty) 06/16/2024,05/07/2023 COVID-19, mRNA, LNP-s, PF, B ooster, 100mcg/0.5mg (Moderna) 06/28/2021 Covid-19, Mrna, Lnp-s, Pf, B ivalent, 30 Mcg, IM, 12 yrs and above (Pfizer) 11/09/2022,04/10/2022 PPD 12/10/2006 Pneumococcal Conjugate Vacc, 13 Valent (Prevnar) 03/24/2015 Pneumococcal Polysaccharide PPV23 (Pneumovax) 07/11/2019,05/27/2014,04/18/2007 RSV Vac., Bivalent, Perfusio n F, Pf,0.5 Ml (Abrysvo) 08/17/2023 Seasonal Influenza Vac., MDV , IM, 0.5 mL (Fluzone) 03/17/2015,05/27/2014,04/08/2008,04/18,05/25/2006 Seasonal Influenza, High Dos e, Trivalent, PF, IM (Fluzone HD) 06/16/2024 Seasonal Influenza, PF, 6 M & above, IM , (FluLaval or Fluzone) 05/04/2020,04/19/2018,05/14/2017 Seasonal Influenza, Quadriva lent Hd (Fluzone Hd) 05/07/2023,03/22/2022,03/22/2021 Seasonal Influenza, Quadriva lent, No Preserve, IM 03/29/2016 Seasonal Influenza, Trivalen t, Adjuvanted, 65+ YRS, PF, (Fluad) 03/18/2019 TDAP (age 10 and older)(Boostrix) 01/01/2024,11/2013 Varicella Zoster Vaccine (Adult) 11/10/2013 Zoster Vaccine Recombinant (Shingrix) 11/07/2021 ,08/08/2021 documented as of this encounter Social History Tobacco Use Types Packs/Day Years Used Date Smoking Tobacco: Every Day Cigarettes 0.5 59.1 Started: 1966 Passive Smoke Exposure: Current Smokeless Tobacco: Never Tobacco Cessation:Ready to Q uit: Yes; Counseling Given: Yes Comments:2 cigarettes/day Alcohol Use Standard Drinks/Week Comments No 0 (1 standard drink = 0.6 oz pur e alcohol) PHQ-2 Answer Date Recorded PHQ Adult Total Score 0 02/18/2024 Hunger Vital Sign Answer Date Recorded Within the past 12 months, y ou worried that your food would run out before you got the money to buy more. Never true 06/18/20 23 Within the past 12 months, t he food you bought just didn't last and you didn't have money to get more. Never true 06/18/2023 Childcare Answer Date Recorded Do you feel overwhelmed with taking care of a child, family member or friend? No 06/18/2023 Does your family need help f inding childcare? (Household - for ages 0-17 years) Not on file 06/18/2023 Clothing Answer Date Recorded Have you been unable to get clothing when it was really needed? No 06/18/2023 Is your family able to get c lothes or diapers when needed? (Household - for ages 0-17 years) Not on file 06/18/2023 Personal Safety Answer Date Recorded Do you feel unsafe or have concerns for your saf ety? No 07/09/2024 Do you have concerns for you r family's safety? (Household - for ages 0-17 years) Not on file 07/09/2024 Utilities Answer Date Recorded Do you have trouble paying y our heating, water, or electric bill? No 07/09/2024 Is your family able to pay t he heat, water, or electric bill? (Household - for ages 0-17 years) Not on file 07/09/2024 Does your family have access to good internet? (Household - for ages 0-17 years) Not on file 07/09/2024 Employment Status Answer Date Recorded Are you unemployed or without regular income? No 06/18/2023 Does the household have a re lar source of income? (Household - for ages 0-17 years) Not on file 06/18/2023 Social Connections Answer Date Recorded How often do you feel lonely or isolated from th ose around you? Never 06/18/2023 Financial Resource Strain Answer Date R ecorded Do you have any trouble payi ng for your medications, or do you think you might in the future? No 06/18/2023 Does your family have troubl e paying for medicine? (Household - for ages 0-17 years) Not on file 06/18/2023 Transportation Needs Answer Date Record ed Do you have trouble getting a ride to medical visits or work? (Adult - for ages 18 years and over) Not on file 07/09/2024 Does your family have a hard time getting a ride to doctors visits? (Household - for ages 0-17 years) Not on file 07/09/2024 Has lack of transportation k ept you from medical appointments, meetings, work, or from getting things needed for daily living? Check all that apply. No 07/09/2024 Do you (or your family) have trouble finding or paying for a ride (transportation)? (Household - for ages 0-17 years) Not on file 07/09/2024 Housing Stability Answer Date Recorded Do you currently live in a s helter or have no steady place to sleep at night? (Adult - for ages 18 years and over) Not on file 07/09/2024 Do you think you are at risk of becoming homeless? (Adult - for ages 18 years and over) Not on file 07/09/2024 Does your family worry about paying for your home or becoming homeless? (Household - for ages 0-17 years) Not on file 0 07/09/2024 Are you homeless or worried that you might be in the future? No 07/09/2024 Are you (or your family) scottie eless or worried that you might be in the future? (Household - for ages 0-17 years) Not on file Food Insecurity Answer Date Recorded Do you need food for this week? No 07/09/2024 Are you able to get enough f ood for your family? (Household - for ages 0-17 years) Not on file 07/09/2024 Does your family need food t his week? (Household - for ages 0-17 years) Not on file 07/09/2024 Do you always have enough fo od for your family? (Household - for ages 0-17 years) Not on file 07/09/2024 Sex and Gender Information Value Date Recorded Sex Assigned at Male 02/20/2019 8:49 AM EDT Legal Sex Male 5:44 AM EST Gender Identity Male 02/20/2019 8:49 AM EDT Sexual Orientation Choose not to disclose 2018 8:49 AM EDT documented as of this encounter Last Filed Vital Signs Vital Sign Reading Time Taken Comments Blood Pressure 102/70 08/01/2024 10:14 AM EST Pulse 67 08/01/2024 10:14 AM EST Temperature 35.5 C (95.9 F) 08/01/2024 10:[address] Respiratory Rate - - Oxygen Saturation 98% 08/01/2024 10:14 AM EST Inhaled Oxygen Concentration - - Weight 66.8 kg (147 lb 4.8 oz) 08/01/2024 10:14 AM EST Height 175.3 cm (5' 9") 08/01/2024 10:14 AM EST Body Mass Index 21.75 08/01/2024 10:14 AM EST documented in this encounter Progress Notes * Leon Galvan, - 08/01/2024 10:21 AM EST SUBJECTIVE: Henri Vigil is a 74 year old male. Chief Complaint Patient presents with Hospital Follow-Up Hospital Follow-Up Recent Admission: Patient was recently admitted to [facility] and transferred to [facility]. The date of discharge was 07/28/2024. Discharge report received and reviewed. HPI: Patient is a 74 year old male with a history of MO, CAD, LAD stent, Hyperlipidemia, COPD, Memory Loss, CVA, right Renal Mass, Systolic CHF, BPH, Anxiety, B 12 deficiency, Lumbar Disc Disease, Lumbar Spinal Fusion and Tobacco Abuse that is seen for hospital follow up. He was admitted to [facility] from 06/10- 07/15/2024 and was treated with CABG x 4. Patient had postoperative Atrial Fibrillation and was started on Amiodarone and anticoagulated. Patient has LV thrombus as well. He was transferred to [facility] for rehabilitation on 07/15/2024. He was treated with Physical therapy and discharged on 07/28/2024. He is recovering slowly. Weight is down and appetite has decreased. Minimal incisional pain is present. Chronic shortness of breath is stable. Chronic radicular back pain is stable. Patient Active Problem List Diagnosis Tobacco use disorder BPH without obstruction/lower urinary tract symptoms Esophageal reflux Dyslipidemia, goal LDL below 70 Heart failure, systolic, due to CAD (HCC) Old MO (myocardial infarction) Pulmonary nodule Gout Restless legs syndrome Cognitive changes Cerebrovascular disease, arteriosclerotic, post-stroke Right renal mass COPD, group D, by GOLD 2017 classification ([facility]) Anxiety state Lumbar degenerative disc disease HTN, goal below 140/90 Vitamin B 12 deficiency Coronary artery disease involving navajo coronary artery of navajo heart with unstable angina pectoris (HCC) S/P CABG x 4 Impaired mobility and ADLs Atrial fibrillation ([facility]) Current Outpatient Medications Medication Sig Dispense Refill oxygen GAS Use 2 L/min(Oxygen) as directed at bedtime. 1 Each 0 Acetaminophen 325 MG Oral Tablet Take 1 Tablet by mouth every 6 hours as needed. Dutasteride 0.5 MG Oral Capsule (Avodart) Take 1 Capsule by mouth in the morning. (Patient taking differently: Take 1 Capsule by mouth daily at noon.) 100 Capsule 3 rOPINIRole HCl 0.5 MG Oral Tablet (Requip) Take 1 Tablet by mouth in the morning and 1 Tablet at noon and 1 Tablet before bedtime. With food. 300 Tablet 3 buPROPion HCl ER (SR) 150 MG Oral Tablet Extended Release 12 Hour (Wellbutrin SR) Take 1 Tablet by mouth in the morning and 1 Tablet before bedtime. 200 Tablet 3 busPIRone HCl 5 MG Oral Tablet (Buspar) Take 1 Tablet by mouth in the morning and 1 Tablet before bedtime. 200 Tablet 3 Ezetimibe 10 MG Oral Tablet (Zetia) TAKE ONE TABLET BY MOUTH DAILY 100 Tablet 3 Mirtazapine 15 MG Oral Tablet (Remeron) Take 1 Tablet by mouth at bedtime. 100 Tablet 3 Rosuvastatin Calcium 40 MG Oral Tablet (Crestor) Take 1 Tablet by mouth in the morning. 100 Tablet 3 Clopidogrel Bisulfate 75 MG Oral Tablet (pLAVix) Take 1 Tablet by mouth in the morning. 100 Tablet 3 Tamsulosin HCl 0.4 MG Oral Capsule (Flomax) Take 1 Capsule by mouth in the morning. (Patient takingdifferently: Take 1 Capsule by mouth daily at noon.) 90 Capsule 3 Pregabalin 75 MG Oral Capsule (Lyrica) Take 1 Capsule by mouth in the morning and 1 Capsule before bedtime. 60 Capsule 0 Furosemide 40 MG Oral Tablet (Lasix) Take 1 Tablet by mouth in the morning. 30 Tablet 0 Amiodarone HCl 200 MG Oral Tablet (Cordarone) Take 1 Tablet by mouth daily with breakfast. 14 Tablet 0 Carvedilol 3.125 MG Oral Tablet (Coreg) Take 1 Tablet by mouth 2 times a day with morning and evening meals. 28 Tablet 0 Potassium Chloride Joyce ER 10 MEQ Oral Tablet Extended Release Take 2 Tablets by mouth in the morning. 28 Tablet 0 Warfarin Sodium 1 MG Oral Tablet (Coumadin) Take 1 tablet by mouth daily as directed by discharged instructions and the anticoagulation clinic. 14 Tablet 0 Famotidine 20 MG Oral Tablet (Pepcid) Take 1 Tablet by mouth in the morning. 30 Tablet 0 Pantoprazole Sodium 40 MG Oral Tablet Delayed Release (Protonix) Take 1 Tablet by mouth in the morning. 30 Tablet 0 No current facility-administered medications for this visit. Current and discharge medications have been reconciled. Review of patient's allergies indicates: Allergen Reactions Codeine Other (Please comment) Severe Skin peeling OBJECTIVE: BP 102/70 (BP Site: Left Arm, BP Position: Sitting, BP Cuff Size: Regular) | Pulse 67 | Temp 95.9 F (35.5 C) (Tympanic) | Ht 5' 9" (1.753 m) | Wt 147 lb 4.8 oz (66.8 kg) | SpO2 98% | BMI 21.75 kg/m | BSA 1.8 m REVIEW OF SYSTEMS: Review of Systems Constitutional: Positive for appetite change and fatigue. Negative for chills, fever and unexpectedweight change. HENT: Negative for congestion, sore throat and trouble swallowing. Respiratory: Positive for shortness of breath. Negative for cough and wheezing. Cardiovascular: Negative for chest pain, palpitations and leg swelling. Gastrointestinal: Negative for abdominal pain, blood in stool, constipation, diarrhea, nausea and vomiting. Genitourinary: Negative for dysuria, frequency and hematuria. Musculoskeletal: Positive for arthralgias, back pain and gait problem. Neurological: Negative for dizziness, syncope and headaches. Psychiatric/Behavioral: Negative for confusion, decreased concentration and sleep disturbance. PHYSICAL EXAM: BP 102/70 (BP Site: Left Arm, BP Position: Sitting, BP Cuff Size: Regular) | Pulse 67 | Temp 95.9 F (35.5 C) (Tympanic) | Ht 5' 9" (1.753 m) | Wt 147 lb 4.8 oz (66.8 kg) | SpO2 98% | BMI 21.75 kg/m | BSA 1.8 m Physical Exam Vitals and nursing note reviewed. Constitutional: General: He is not in acute distress. Appearance: Normal appearance. He is not toxic-appearing. HENT: Head: Normocephalic and atraumatic. Cardiovascular: Rate and Rhythm: Normal rate and regular rhythm. Heart sounds: Normal heart sounds. No murmur heard. No gallop. Pulmonary: Effort: Pulmonary effort is normal. Breath sounds: Normal breath sounds. No wheezing, rhonchi or rales. Abdominal: General: Bowel sounds are normal. There is no distension. Palpations: Abdomen is soft. Tenderness: There is no abdominal tenderness. Musculoskeletal: Right lower leg: No edema. Left lower leg: No edema. Neurological: Mental Status: He is alert and oriented to person, place, and time. Mental status is at baseline. Motor: Weakness present. Gait: Gait abnormal. Psychiatric: Mood and Affect: Mood normal. Behavior: Behavior normal. Thought Content: Thought content normal. Results for orders placed or performed in visit on 07/28/24 PT INR Result Value Ref Range Prothrombin Time 26.6 (H) 11.6 - 15.2 seconds INR 2.4 (H) 0.8 - 1.2 *Note: Due to a large number of results and/or encounters for the requested time period, some results have not been displayed. A complete set of results can be found in Results Review. Component Latest Ref Rng 07/15/2024 07/16/2024 07/18/2024 WBC 4.00 - 10.80 K/uL 7.42 Neutrophils % 40.0 - 75.0 % 75.4 (H) Lymphocytes % 18.0 - 42.0 % 11.5 (L) Monocytes % 1.0 - 11.0 % 9.8 Eosinophils % 0.0 - 6.0 % 2.6 Basophils % 0.0 - 2.0 % 0.3 Immature Granulocytes % 0.0 - 2.0 % 0.4 Absolute Neutrophils 1.80 - 7.70 K/uL 5.60 Absolute Lymphocytes 1.00 - 4.80 K/ul 0.85 (L) Absolute Monocytes 0.00 - 1.10 K/uL 0.73 Absolute Eosinophils 0.00 - 0.70 K/uL 0.19 Absolute Basophils 0.00 - 0.20 K/uL 0.02 Absolute Immature Granulocytes 0.00 - 0.20 K/uL 0.03 WBC 4.00 - 10.80 K/uL 7.42 8.91 RBC 4.50 - 5.25 M/uL 3.17 3.21 HGB 14.0 - 16.8 g/dL 10.0 (L) 10.2 (L) HCT 40.0 - 48.4 % 30.4 (L) 32.3 (L) MCV 82.0 - 99.5 fL 95.9 100.6 MCH 27.0 - 34.0 pg 31.5 31.8 MCHC 32.0 - 36.0 g/dL 32.9 31.6 RDW 11.5 - 15.5 % 13.6 14.1 PLT 140 - 400 K/uL 220 319 MPV 6.6 - 11.1 fL 10.6 11.2 nRBCs <=0 /100 WBCs 0 0 BUN 6 - 20 mg/dL 31 (H) CREATININE 0.6 - 1.2 mg/dL 1.3 (H) EGFR >=60 mL/min 59 (L) SODIUM 135 - 146 mmol/L 138 POTASSIUM 3.5 - 5.1 mmol/L 4.4 CHLORIDE 98 - 107 mmol/L 105 CO2 22 - 32 mmol/L 21 (L) ANION GAP 7 - 15 mmol/L 12 GLUCOSE 70 - 120 mg/dL 96 CALCIUM 8.4 - 10.2 mg/dL 8.3 (L) Prothrombin Time 11.6 - 15.2 seconds 32.6 (H) INR 0.8 - 1.2 3.1 (H) Hemoglobin A1C 4.0 - 5.6 % 5.5 Estimated Average Glucose <126 mg/dL 111 Magnesium 1.5 - 2.6 mg/dL 2.1 Legend: (H) High (L) Low ASSESSMENT/PLAN S/P CABG x 4 (Primary) Healing well Follow with Cardiothoracic Surgery as scheduled Atrial fibrillation, unspecified type ([facility]) - COMPREHENSIVE METABOLIC PANEL; Future; Expected date: 08/01/2024 - CBC WITH WBC DIFFERENTIAL; Future; Expected date: 08/01/2024 - TSH WITH FREE T4 IF INDICATED; Future; Expected date: 08/01/2024 Post Op Atrial Fibrillation Continue Amiodarone and Warfarin per Cardiology LV (left ventricular) mural thrombus - COMPREHENSIVE METABOLIC PANEL; Future; Expected date: 08/01/2024 - CBC WITH WBC DIFFERENTIAL; Future; Expected date: 08/01/2024 COntinue Warfarin Follow up Echo per Cardiology Cerebrovascular disease, arteriosclerotic, post-stroke Continue Clopidogrel COPD, group D, by GOLD 2017 classification ([facility]) Coronary artery disease involving navajo coronary artery of navajo heart with unstable angina pectoris ([facility]) Continue Carvedilol Hold SIMA due to hypotension Heart failure, systolic, due to CAD (HCC) - COMPREHENSIVE METABOLIC PANEL; Future; Expected date: 08/01/2024 - CBC WITH WBC DIFFERENTIAL; Future; Expected date: 08/01/2024 Continue Carvedilol, and Furosemide Degeneration of intervertebral disc of lumbar region with discogenic back pain and lower extremity pain Restless legs syndrome Decrease Ropinirole to 0.5 mg before bed Right renal mass Renal US scheduled for 10/2024 Vitamin B 12 deficiency - VITAMIN B12; Future; Expected date: 08/01/2024 - B-12-SL 1000 MCG Sublingual Tablet Sublingual (Cyanocobalamin); Place 1,000 mcg under the tongue in the morning. Tobacco use disorder - PHARMACIST MEDS THERAPY MGMT REFERRAL OP FOR SMOKING CESSATION Gastroesophageal reflux disease without esophagitis Continue Pantoprazole Stop Famotidine Impaired mobility and ADLs Home PT as scheduled Hospital discharge follow-up - DISCH MED RECON CUR MED LIS Following with Jerardo @ Home Follow Up: Return in about 4 days (around 08/05/2024), or if symptoms worsen or fail to improve. Leon Galvan DO documented in this encounter Plan of Treatment Upcoming Encounters Date Type Department Care Team (Late st Contact Info) Description 08/05/2024 10:30 AM EST Telemedicine [facility], [address] [place] [address] [facility], [facility] [address] [place] [address] [place] [address] 08/05/2024 1:00 PM EST Office Visit Family Practice [address] [place] [address] [address] [place] [address] Leon Galvan DO [address] [place] [address] 08/06/2024 12:30 PM EST Home Visit Jerardo at [facility] 132 [facility] [place] [address] Jhoana Fried, RN 132 [facility] [place] [address] 08/20/2024 10:45 AM EST Office Visit Cardiothoracic Surg [facility] [address] [place] [address] Jayden Galvan MD [address] [place] [address] 09/17/2024 8:40 AM EDT Office Visit Family Practice [address] [place] [address] 293 [place] [address] Leon Galvan, 293 [place] [address] 09/18/2024 8:00 AM EDT Office Visit Cardiology, [facility] 132 [facility] [place] [address] Alexandra Mackenzie CRNP 132 [place] [address] 09/29/2024 9:00 AM EDT Home Visit [facility] 132 [facility] [place] [address] Pito Rodriguez PA-C 132 [place] [address] 10/10/2024 3:30 PM EDT Imaging Radiology [facility] [address] [facility] [place] [phone] 10/17/2024 9:00 AM EDT Office Visit Urology, [place] [address] [place] [address] Johnathon Kent PA-C [address] [place] [address] 02/06/2025 9:30 AM EDT Office Visit Cardiology, [facility] 132 [facility] [place] [address] Poncho Robledo DO 132 [place] [place] [address] Pending Results Name Type Priority Associated Diagnoses Date /Time COMPREHENSIVE METABOLIC PANEL Lab Routine Atrial fibrillation, unspecified type (HCC) LV (left ventricular) mural thrombus Heart failure, systolic, due to CAD (HCC) 08/01/2024 11:05 AM EST CBC WITH WBC DIFFERENTIAL Lab Routine Atrial fibrillation, unspecified type (HCC) LV (left ventricular) mural thrombus Heart failure, systolic, due to CAD (HCC) 08/01/2024 11:05 AM EST TSH WITH FREE T4 IF INDICATED Lab Routine Atrial fibrillation, unspecified type (HCC) 08/01/2024 11:05 AM EST VITAMIN B12 Lab Routine Vitamin B 12 deficiency 08/01/2024 11:05 AM EST CBC Lab Routine Atrial fibrillation, unspecified type (HCC) LV (left ventricular) mural thrombus Heart failure, systolic, due to CAD (HCC) 08/01/2024 11:05 AM EST DIFFERENTIAL, AUTOMATED Lab Routine Atrial fibrillation, unspecified type (HCC) LV (left ventricular) mural thrombus Heart failure, systolic, due to CAD (HCC) 08/01/2024 11:05 AM EST Scheduled Orders Name Type Priority Associated Diagnoses Orde r Schedule COMPREHENSIVE METABOLIC PANEL Lab Routine Atrial fibrillation, unspecified type (HCC) LV (left ventricular) mural thrombus Heart failure, systolic, due to CAD (HCC) Expected: 08/01/2024 (Approximate), Expires: 08/01/2025 CBC WITH WBC DIFFERENTIAL Lab Routine Atrial fibrillation, unspecified type (HCC) LV (left ventricular) mural thrombus Heart failure, systolic, due to CAD (HCC) Expected: 08/01/2024 (Approximate), Expires: 08/01/2025 TSH WITH FREE T4 IF INDICATED Lab Routine Atrial fibrillation, unspecified type (HCC) Expected: 08/01/2024 (Approximate), Expires: 08/01/2025 VITAMIN B12 Lab Routine Vitamin B 12 deficiency Expected: 08/01/2024 (Approximate), Expires: 08/01/2025 Scheduled Referrals Name Type Priority Associated Diagnoses Orde r Schedule PHARMACIST MEDS THERAPY MGMT REFERRAL OP Referral Within 10 days (routine) Tobacco use disorder Ordered: 08/01/2024 Health Maintenance Due Date Last Done Comments Cologuard 1995 Sigmoidoscopy 1995 Fecal Occult Blood Test 12/20/2008 12/21/2007 *ADVANCE DIRECTIVE NOT ON FILE 2019 DISCUSS TOBACCO CESSATION (REFER TO SMARTSET #7348) 06/18/2024 06/18/2023, 01/24/2017 Adult Wellness Visit 02/17/2025 02/18/2024, 10/31/2022, 08/17/2021 Depression Screening 02/17/2025 02/18/2024, 01/02/20 24 O2 ASSESSMENT COMPLETED IN PAST YEAR FOR COPD 07/08/2025 07/08/2024 GFR 07/15/2025 07/15/2024, /0 12/2024, 07/13/2024, Additional history exists Albumin/Creatinine Ratio 08/17/2026 024, 03/22/2022, 06/23/2016, Additional history exists Colonoscopy 10/20/2032 10/20/2022, 11/07, 09/07/2006, Additional history exists Colorectal Cancer Screening 10/20/2032 DTap/Tdap Vaccines (3 - Td or Tdap) 12/31/2033 01/01/2024, 11/10/2013 Pneumococcal Vaccine: 50+ Years Completed 07/11/2019, 03/24/2015, 05/27/2014, Additional history exists Alpha-1 Antitrypsin Completed 08/08/2021 Zoster Vaccines Completed 11/07/2021, 07/11, 11/10/2013 Diabetic Eye Exam Discontinued 02/26/2023, , 11/06/2019, Additional history exists Diabetic Foot Exam Discontinued 08/17/2023, 1 08/24/2015, 07/07/2015, Additional history exists AAA Screening Completed 09/17/2023, 08/09, 03/23/2022, Additional history exists COVID-19 Vaccine Completed 06/16/2024, 03/2024, 05/07/2023, Additional history exists Influenza Vaccine (FLU shot) Completed 06/16/2024, 05/07/2023, 03/22/2022, Additional history exists HPV (Gardasil) Vaccine Aged Out No lo nger eligible based on patient's age to complete this topic Hepatitis B Vaccine Aged Out No longe r eligible based on patient's age to complete this topic MENINGOCOCCAL (MENACTRA/MENVEO) Aged Out No longer eligible based on patient's age to complete this topic documented as of this encounter Medical Devices Implanted Type Area Loading Unit Tool Setter Device Identifier Shelf Expiration Date Model / Serial / Lot Lead Kit Trial [id number] 50cm - [id number] - [id number] Implanted:Qty: 1 on 05/08/2024 by Maged Monreal DO at OR [facility] Left: Back [employer] : PAIN MGMT 03/18/2026 [id number] / [id number] / Lead Kit Trial [id number] 50cm - [id number] - [id number] Implanted:Qty: 1 on 05/08/2024 by Maged Monreal DO at OR [facility] Right: Back [employer] : PAIN MGMT 03/18/2026 [id number] 50E0 / [id number] / Suture Steel 6 B&S19 M654g - [id number] Implanted:Qty: 1 on 07/08/2024 by Jayden Galvan MD at OR [facility] N/A: Sternum JNJ : [employer] 03/08/2029 M654G / / 103BLE Marker Coronary - [id number] Implanted:Qty: 1 on 07/08/2024 by Jayden Galvan MD at OR [facility] N/A: Heart [employer] 05/08/2027 [facility] / / [id number] Marker Coronary - [id number] Implanted:Qty: 1 on 07/08/2024 by Jayden Galvan MD at OR [facility] N/A: Heart [employer] 06/07/2027 [facility] / / [id number] documented as of this encounter Visit Diagnoses Diagnosis 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 Atrial fibrillation, unspecified type ([facility]) LV (left ventricular) mural thrombus Acute myocardial infarction, unspecified site, episode of care unspecified Cerebrovascular disease, arteriosclerotic, post-stroke Cerebral atherosclerosis COPD, group D, by GOLD 2017 classification ([facility]) Coronary artery disease involving navajo coronary artery of navajo heart with unstable angina pectoris (HCC) Heart failure, systolic, due to CAD ([facility]) Unspecified systolic heart failure Degeneration of intervertebral disc of lumbar region with discogenic back pain and lower extremity pain Restless legs syndrome Restless legs syndrome (RLS) Right renal mass Unspecified disorder of kidney and ureter Vitamin B 12 deficiency Other B-complex deficiencies Tobacco use disorder Gastroesophageal reflux disease without esophagitis Esophageal reflux Impaired mobility and ADLs Mechanical problems with limbs Hospital discharge follow-up Other follow-up examination documented in this encounter Advance Directives * Full Code (Latest Code Status on File) Date Activated Date Inactivated Comments 07/08/2024 12:14 PM 07/15/2024 5:39 PM This order reflects the patients wishes and were consensually agreed upon. Question Answer Comments Discussion of Advance Directives occurred with: Patient Care Teams Drafter Landscape Relationship Specialty Start Date End Date Leon Galvan DO [address] [place] [address] PCP - General Internal Medicine 12/28/23 documented as of this encounter
--- OUTSIDE RECORDS SUMMARY | 2024-08-06 22:31 | External Medical Summary ---
Author Name Unknown Address Unknown Organization K01:[facility] - [address] [facility] [address] Laboratory Report Ordering Provider Test Date Status FITZLUC 08/01/2024 11:05:56 Final Observation Date Value Abnormality Reference (Units ) Status TSH 08/01/2024 11:05:56 5.13 Above high normal 0. 27-4.20 (uIU/mL) Final Performing Location [facility] - [address] [facility] [address]
--- OUTSIDE RECORDS SUMMARY | 2024-08-06 22:31 | External Medical Summary | Summary of Care ---
Author Name Unknown Organization [facility] Address [address] [place] [address] Phone [phone] Care Team Providers Care Folder Hand Name Role Phone Leon Galvan DO Primary Care Provider [phone] Reason for Visit * Reason Comments Dosage Adjustment In Person (Anticoag Cl inic) Encounter Details Date Type Department Care Team (Late st Contact Info) Description 08/01/2024 10:40 AM EST Anticoagulation Family Practice [address] [phone] College, Pharmacist [address] [address] Anticoagulation management encounter*; Coronary artery disease involving red devil coronary artery of red devil heart with unstable angina pectoris (HCC); S/P CABG x 4; Atrial fibrillation, unspecified type (HCC); LV (left ventricular) mural thrombus Allergies Active Allergy Reactions Criticality Noted Date Comments Codeine Other (Please comment) High 09/08/2013 Severe Skin peeling documented as of this encounter (statuses as of 08/01/2024) Medications oxygen GASIndications: Chronic coronary artery disease,COPD, mild (HCC),Heart failure, systolic, due to CAD (HCC) Use 2 L/min(Oxygen) as directed at bedtime. [...] under the tongue in the morning. 08/01/19 Active rOPINIRole HCl 0.5 MG Oral Tablet (Requip)Indicat ions:Restless legs syndrome Take 1 Tablet by mouth at bedtime. 08/01/19 Active documented as of this encounter (statuses as of 08/01/2024) Active Problems Problem Noted Date Diagnosed Date Atrial fibrillation 08/01/2024 Impaired mobility and ADLs 07/17/2024 S/P CABG x 4 07/08/2024 Coronary artery disease invo lving red devil coronary artery of red devil heart with unstable angina pectoris 07/03/2024 Vitamin [...] failure, systolic, due to CAD 09/08/2013 Old MD (myocardial infarction) 09/08/2013 Dyslipidemia, goal LDL below 70 06/15/2009 Overview (06/15/2009): Per Lipid Taxonomy. Esophageal reflux 12/03/2007 BPH without obstruction/lower urinary tract symp toms 08/03/2006 Tobacco use disorder 06/03/2002 documented as of this encounter (statuses as of 08/01/2024) Resolved Problems Problem Noted Date Diagnosed Date Resolved Date Type 2 diabetes mellitus wit h autonomic neuropathy 08/17/2023 09/17/2023 Atherosclerosis of red devil co ronary artery without angina pectoris 08/17/2023 [...] 01/25/2015 Beta-blockers contraindicated 11/23/2008 09/08/2013 Aspirin contraindicated 11/23/2008 03/0 09/2013 COPD, mild 05/24/2005 12/18/2018 ADVANCE DIRECTIVE INFORMATION [...] CG/0.3 mL, 12 YRS AND ABOVE, IM [facility] 06/16/2024,05/07/2023 COVID-19, mRNA, LNP-s, PF, B ooster, [...] Tobacco: Every Day Cigarettes 0.5 59.1 Started: 1965 Passive Smoke Exposure: Current Smokeless Tobacco: Never Comments:2 cigarettes/day Alcohol Use Standard Drinks/Week Comments [...] AM EDT documented as of this encounter Progress Notes * Patsy Hansen RPh - 08/01/2024 10:52 AM EST Medication Therapy Disease Management - Anticoagulation Patient: Henri Vigil | : 1950 Subjective Patient-Reported Symptoms: Patient Findings Positives: Missed doses (missed one dose) Negatives: Signs/symptoms of thrombosis, Signs/symptoms of bleeding, Change in health, Change in alcohol use, Change in activity, Upcoming invasive procedure, Extra doses, Change in medications, Change in diet/appetite, Bruising Objective Current Warfarin Dose As of 08/01/2024 Warfarin maintenance plan: 1 mg (1 tablet) daily INR Result As of 08/01/2024 INR goal: 2.0-3.0 INR used for dosin.1 (08/01/2024) Assessment & Plan Warfarin Plan As of 08/01/2024 Full warfarin instructions: 08/01: 1 mg; 08/02: 1 mg; 08/03: 1 mg; 08/04: 1 mg; 08/05: 1 mg; 08/06: 1 mg;08/07: 1 mg No change documented: Patsy Hansen RPh Next INR check: 08/05/2024 Repeat PT/INR in 1 week(s) then patient will have completed 30 days of warfarin and transition backto Eliquis Weekly dose: not changed Additional Dosing Information: I spent a total of 10-19 minutes (exact time 10 mins) on the date of service in preparation, delivery, and documentation of the care provided to Henri Vigil excluding any time spent in the performance of separately billed services or time spent by another provider/QHP. Patsy Brown [facility] Clinical Pharmacist 08/01/2024, 10:52 AM documented in this encounter Plan of Treatment Upcoming Encounters Date Type Department Care Team (Late st Contact Info) Description 08/05/2024 10:30 AM EST Telemedicine [facility], Virtual [address] [place] [address] [place] [address] [facility], Virtual [facility] [address] [place] [address] [place] [address] 08/05/2024 1:00 PM EST Office Visit Family Practice [address] [place] [address] [address] [place] [address] Leon Galvan, 293 [place] [address] 08/06/2024 12:30 PM EST Home Visit [facility] 132 [facility] [place] [address] Jhoana Fried, RN 132 [place] [address] 08/20/2024 10:45 AM EST Office Visit Cardiothoracic Surg [facility] [address] [place] [address] Jayden Galvan MD [address] [place] [address] 09/02/2024 11:40 AM EST Office Visit Pharmacy, [facility] 132 [facility] [place] [address] [facility] [place] [address] 09/17/2024 8:40 AM EDT Office Visit Family Practice [address] [place] 293 [place] [address] Leon Galvan, 293 [facility] [place] [address] 09/18/2024 8:00 AM EDT Office Visit Cardiology, [facility] [place] [address] Alexandra Mackenzie CRNP 132 [facility] [place] [address] 09/29/2024 9:00 AM EDT Home Visit isinger at [facility] 132 [facility] [place] [address] Pito Rodriguez PA-C [address] [place] [address] 10/10/2024 3:30 PM EDT Imaging Radiology [facility] 132 [facility] [place] [address] 10/17/2024 9:00 AM EDT Office Visit Urology, [place] [address] [place] [address] Johnathon Kent PA-C [address] [facility] [place] [address] 02/06/2025 9:30 AM EDT Office Visit Cardiology, [facility] [address] [facility] [place] [address] Poncho Robledo O, [address] [place] [address] Scheduled Orders Name Type Priority Associated Diagnoses Orde r Schedule INR FINGERSTICK, POINT OF CARE Point of Care Testing - Unsolicited Results STAT Atrial fibrillation, unspecified type (HCC) LV (left ventricular) mural thrombus Anticoagulation management encounter Every 2 Weeks for 26 Occurrences starting 08/01/2024 until 08/01/2025, 1 completed PT INR Lab Routine Atrial fibrillation, unspecified type (HCC) LV (left ventricular) mural thrombus Anticoagulation management encounter 26 Occurrences starting 08/01/2024 until 08/01/2025 Health Maintenance Due Date Last Done Comments Cologuard 1995 Sigmoidoscopy 1995 Fecal Occult Blood Test 12/20/2008 12/21/2007 *ADVANCE DIRECTIVE NOT ON FILE 2019 DISCUSS TOBACCO CESSATION (REFER TO SMARTSET #3291) 06/18/2024 06/18/2023, 01/24/2017 Adult Wellness Visit 02/17/2025 02/18/2024, 10/31/2022, 08/17/2021 Depression Screening 02/17/2025 02/18/2024, 01/02/20 24 O2 ASSESSMENT COMPLETED IN PAST YEAR FOR COPD 07/08/2025 07/08/2024 GFR 07/15/2025 07/15/2024, 12/2024, 07/13/2024, Additional history exists Albumin/Creatinine Ratio [...] this encounter Medical Devices Implanted Type Area Morale Officer Device Identifier Shelf Expiration Date Model / Serial / Lot Lead Kit Trial [id number] 50cm - [id number] - [id number] Implanted:Qty: 1 on 05/08/2024 by Maged Monreal DO at OR [facility] Left: Back [employer] : PAIN MGMT 03/18/2026 [id number] 50E0 / [id number] / Lead Kit Trial [id number] 50cm - [id number] - [id number] Implanted:Qty: 1 on 05/08/2024 by Maged Monreal DO at OR [facility] Right: Back [employer] : PAIN MGMT 03/18/2026 [id number] 50E0 / [id number] / Suture Steel 6 B&S19 M654g - [id number] Implanted:Qty: 1 on 07/08/2024 by Jayden Galvan MD at OR [facility] N/A: Sternum JNJ : [employer] 03/08/2029 M654G / / 103BLE Marker Coronary - [id number] Implanted:Qty: 1 on 07/08/2024 by Jayden Galvan MD at OR [facility] N/A: Heart [employer] 05/08/2027 [facility] / / [id number] Marker Coronary - [id number] Implanted:Qty: 1 on 07/08/2024 by Jayden Galvan MD at OR [facility] N/A: Heart [employer] 06/07/2027 [facility] / / [id number] documented as of this encounter Procedures Procedure Name Priority Date/Time Associated Diagnosis Comments INR FINGERSTICK, POINT OF CARE STAT 08/01/2024 10:53 AM EST Atrial fibrillation, unspecified type (HCC) LV (left ventricular) mural thrombus Anticoagulation management encounter documented in this encounter Results * INR FINGERSTICK, POINT OF CARE (08/01/2024 10:53 AM EST) Fingerstick INR 2.1 INR 11:57 AM EST [facility] 56-21 Blood 08/01/2024 10:5 3 AM EST 08/01/2024 11:57 AM EST Narrative [facility] 56-21 - 08/01/2024 11:57 AM EST Therapeutic ranges for non-operative patients: Prophylaxsis/treatment of DVT: (Range:2.0-3.0) Treatment of pulmonary embolism:(Range:2.0-3.0) Prevention of systemic embolism from: -tissue heart valves -acute myocardial infarction -valvular heart disease -atrial fibrillation (Range: 2.0-3.0) Mechanical prosthetic valves: (Range: 2.5-3.5) Patsy Saldana [facility] LAB PO INT OF CARE TEST DOCKED DEVICE UNSOLICITED RESULTS Final Result [facility]-21 [address] [place] [address], [facility] documented in this encounter Visit Diagnoses Diagnosis Anticoagulation management encounter- Primary Encounter for therapeutic drug monitoring Coronary artery disease involving red devil coronary artery of red devil heart with unstable angina pectoris (HCC) S/P CABG x 4 Postsurgical aortocoronary bypass status Atrial fibrillation, unspecified type (HCC) LV (left ventricular) mural thrombus Acute myocardial infarction, unspecified site, episode of care unspecified documented in this encounter Advance Directives * Full Code (Latest Code Status on File) Date Activated Date Inactivated Comments 07/08/2024 12:14 PM 07/15/2024 5:39 PM This order reflects the patients wishes and were consensually agreed upon. Question Answer Comments Discussion of Advance Directives occurred with: Patient Care Teams Folder Hand Relationship Specialty Start Date End Date Leon Galvan DO [address] [place] [address] PCP - General Internal Medicine 12/28/23 documented as of this encounter"
--- OUTSIDE RECORDS SUMMARY | 2024-08-06 22:31 | External Medical Summary ---
Author Name Unknown Address Unknown Organization K01:[facility] - [address] [facility] [address] Laboratory Report Ordering Provider Test Date Status FITZLUC 08/01/2024 11:05:56 Final Observation Date Value Abnormality Reference (Units ) Status T4, Free 08/01/2024 11:05:56 1.3 0.9-1.7 (n g/dL) Final Performing Location [facility] - [address] [facility] [address]
--- OUTSIDE RECORDS SUMMARY | 2024-08-06 22:31 | External Medical Summary ---
Author Name Unknown Address Unknown Organization K01:LABORATORY [facility] - [address] [facility] [place] [address] Laboratory Report Ordering Provider Test Date Status LUC BYRNES 08/01/2024 11:05:56 Final Observation Date Value Abnormality Reference (Units ) Status Vitamin B12 08/01/2024 11:05:56 [phone] (pg/mL) Final Performing Location [facility] [address] [facility] [address]
--- OUTSIDE RECORDS SUMMARY | 2024-08-06 22:32 | External Medical Summary | Summary of Care ---
Author Name Unknown Organization [facility] Address [address] [place] [address] Phone [phone] Care Team Providers Care Linting Machine Operator Name Role Phone Leon Galvan DO Primary Care Provider [phone] Reason for Visit * Reason Onset Date Comments Pre Cert/Prior Auth 07/31/2024 Encounter Details Date Type Department Care Team (Late st Contact Info) Description 07/31/2024 Telephone Family Practice [facility] [address] [place] [address] Leon Galvan DO [address] [place] [address] Pre Cert/Prior Auth Allergies Active Allergy Reactions Criticality Noted Date Comments Codeine Other (Please comment) High 09/08/2013 Severe Skin peeling documented as of this encounter (statuses as of 07/31/2024) Medications oxygen GASIndications: Chronic coronary artery disease,COPD, [...] taking differently:0.5 mg OralDAILY NOON, Reported on 07/30/2024 rOPINIRole HCl 0.5 MG Oral Tablet (Requip)Indicat ions:Restless legs syndrome Take 1 Tablet by mouth in the morning and 1 Tablet at noon and 1 Tablet before bedtime. With food. 300 Tablet 3 4 10:41 AM EDT 02/07/20 23 Active buPROPion HCl ER (SR) 150 MG Oral [...] taking differently:0.4 mg OralDAILY NOON, Reported on 07/30/2024 Pregabalin 75 MG Oral Capsule (Lyrica) Take [...] anticoagulation clinic. 14 Tablet 07/30/19 25 Active Famotidine 20 MG Oral Tablet (Pepcid)Indicat ions:Gastroesop hageal reflux disease without esophagitis Take 1 Tablet by mouth in the morning. 30 Tablet 07/30/19 25 Active Pantoprazole Sodium 40 MG Oral Tablet Delayed Release (Protonix)Indic ations:Gastroes ophageal reflux disease without esophagitis Take 1 Tablet by mouth in the morning. 30 Tablet 07/30/19 25 Active documented as of this encounter (statuses as of 07/31/2024) Active Problems Problem Noted Date Diagnosed Date Impaired mobility and ADLs 07/17/2024 S/P CABG x 4 07/08/2024 Coronary artery disease invo lving [place] coronary artery of [place] heart with unstable angina pectoris 07/03/2024 Vitamin [...] failure, systolic, due to CAD 09/08/2013 Old [place] (myocardial infarction) 09/08/2013 Dyslipidemia, goal LDL below 70 06/15/2009 Overview (06/15/2009): Per Lipid Taxonomy. Esophageal reflux 12/03/2007 BPH without obstruction/lower urinary tract symp toms 08/03/2006 Tobacco use disorder 06/03/2002 documented as of this encounter (statuses as of 07/31/2024) Resolved Problems Problem Noted Date Diagnosed Date Resolved Date Type 2 diabetes mellitus wit h autonomic neuropathy 08/17/2023 09/17/2023 Atherosclerosis of [place] co ronary artery without angina pectoris 08/17/2023 [...] artery disease 08/28/2002 08/08/2021 Mixed dyslipidemia 08/28/2002 Overview (06/15/2009): Per Lipid Taxonomy. Other chest pain 08/28/2002 12/03/2007 documented as of this encounter (statuses as of 07/31/2024) Immunizations Name Administration Dates Next Due COVID-19 [...] 06/18/2023 Does the household have a re gular source of income? (Household - for ages [...] AM EDT documented as of this encounter Miscellaneous Notes * Telephone Encounter - Patsy Hansen RP - 07/31/2024 9:56 AM EST Patient Phone Numbers Spoke to ronak - they report the Lyrica needed additional details. However, pharmacist was able to push it through. They also thought they needed more info on warfarin, however after discussion reported that they had gotten the new script and patient picked up warfarin last night. Spoke to patient and confirmed he took his warfarin last night and picked up other meds. 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 Patsy Saldana, Pharm D, BCACP Clinical Pharmacist [address] [facility] 07/31/2024, 10:00 AM Ph. [phone] * Telephone Encounter - Mariama Cardenas OSA - 07/31/2024 9:17 AM EST Patient called. He stated that the pharmacy told him one of his medications couldn't be filled due to a prior authorization being done. He did state it's one that he needs to take since having his procedure. He doesn't know the name of it though. Please let patient know what is found out. Thanks. documented in this encounter Plan of Treatment Upcoming Encounters Date Type Department Care Team (Late st Contact Info) Description 08/01/2024 9:40 AM EST Pharmacy Family Practice [address] [place] [address], [place] [phone] College, Pharmacist [address] [place] [address] 08/01/2024 10:00 AM EST Office Visit Family Practice [address] [place] [address], [place] [id number] Leon Galvan, [address] [place] [address] 08/05/2024 10:30 AM EST Telemedicine [facility] [address] [place] [address] [place] [address] [facility] [address] [place] [address] [place] [address] 08/05/2024 1:00 PM EST Office Visit Family [address] [place] [address] Leon Galvan, [address] [place] [address], [place] [address] 08/06/2024 12:30 PM EST Home Visit [facility] [place], [facility] [address] [place] [address] Jhoana Fried, RN [address] [place] [address] 08/20/2024 10:45 AM EST Office Visit Cardiothoracic Surg [place] [address] [place] [address] Jayden Galvan MD [address] [place] [address] 09/17/2024 8:40 AM EDT Office Visit Family Practice [address], [place] [address] [place] [address] Leon Galvan, 293 [place] [address] 09/18/2024 8:00 AM EDT Office Visit Cardiology, [facility] 132 [facility] [place] [address] Alexandra Mackenzie CRNP 132 [facility] [place] [address] 09/29/2024 9:00 AM EDT Home Visit [facility] [place] [address] Pito Rodriguez PA-C [address] [place] [address] 10/10/2024 3:30 PM EDT Imaging Radiology [facility] [address] [place] [phone] 10/17/2024 9:00 AM EDT Office Visit Urology, [place] [address] [place] [address] Johnathon Kent PA-C [address] [place] [address] 02/06/2025 9:30 AM EDT Office Visit Cardiology, [facility] [place] [address] Poncho Robledo, [address] [place] [address] Health Maintenance Due Date Last Done Comments Cologuard 1995 Sigmoidoscopy 1995 Fecal Occult Blood Test 12/20/2008 12/21/2007 *ADVANCE DIRECTIVE NOT ON FILE 2019 DISCUSS TOBACCO CESSATION (REFER TO SMARTSET #3095) 06/18/2024 06/18/2023, 01/24/2017 Adult Wellness Visit 02/17/2025 [...] this encounter Medical Devices Implanted Type Area E Tailer Device Identifier Shelf Expiration Date Model / Serial / Lot Lead Kit Trial [id number] 50cm - [id number] - [id number] Implanted:Qty: 1 on 05/08/2024 by Maged Monreal DO at OR [facility] Left: Back [employer] : PAIN MGMT 03/18/2026 [id number] 50E0 / [id number] / Lead Kit Trial [id number] 50cm - [id number] - [id number] Implanted:Qty: 1 on 05/08/2024 by Maged Monreal DO at OR [facility] Right: Back [employer] : PAIN MGMT 03/18/2026 [id number] 50E0 / [id number] / Suture Steel 6 B&S19 M654g - [id number] Implanted:Qty: 1 on 07/08/2024 by Jayden Galvan MD at OR [facility] N/A: Sternum JNJ : [employer] 03/08/2029 [id number] / / [id number] Marker Coronary - [id number] Implanted:Qty: 1 on 07/08/2024 by Jayden Galvan MD at OR [facility] N/A: Heart [employer] 05/08/2027 [facility] / / [id number] Marker Coronary - [id number] Implanted:Qty: 1 on 07/08/2024 by Jayden Galvan MD at OR [facility] N/A: Heart [employer] 06/07/2027 [facility] / / [id number] documented as of this encounter Advance Directives * Full Code (Latest Code Status on File) Date Activated Date Inactivated Comments 07/08/2024 12:14 PM 07/15/2024 5:39 PM This order reflects the patients wishes and were consensually agreed upon. Question Answer Comments Discussion of Advance Directives occurred with: Patient Care Teams Linting Machine Operator Relationship Specialty Start Date End Date Leon Galvan DO [address] [place] [place] [address] PCP - General Internal Medicine 12/28/23 documented as of this encounter
--- OUTSIDE RECORDS SUMMARY | 2024-08-06 22:32 | External Medical Summary ---
Author Name Unknown Address Unknown Organization : Laboratory Report Ordering Provider Test Date Status [facility] 08/01/2024 10:53:16 Final Therapeutic ranges for non-o perative patients:
Prophylaxsis/treatment of DVT: (Range:2.0-3.0)
Treatment of pulmonary embolism:(Range:2.0-3.0)
Prevention of systemic embolism from:
-tissue heart valves
-acute myocardial infarction
-valvular heart disease
-atrial fibrillation
(Range: 2.0-3.0)
Mechanical prosthetic valves: (Range: 2.5-3.5) Observation Date Value Abnormality Reference (Units ) Status INR in Capillary blood by Coagulation assay 08/01/2024 10:53:16 2.1 (INR) Final Performing Location
--- OUTSIDE RECORDS SUMMARY | 2024-08-06 22:32 | External Medical Summary | Summary of Care ---
Author Name Unknown Organization [facility] Address [address] [place] [address] Phone [phone] Care Team Providers Care Horticulture Supervisor Name Role Phone Leon Galvan DO Primary Care Provider [phone] Encounter Details Date Type Department Care Team (Late st Contact Info) Description 07/30/2024 Telephone [facility], [place] [facility] [place] [address] Kamron Vergara, PRINCE [address] [place], [place] [id number] Allergies Active Allergy Reactions Criticality Noted Date Comments Codeine Other (Please comment) High 09/08/2013 Severe Skin peeling documented as of this encounter (statuses as of 07/30/2024) Medications oxygen GASIndications :Chronic coronary artery disease,COPD, mild (HCC),Heart failure, systolic, due to CAD (HCC) Use 2 L/min(Oxygen) as directed at bedtime. 1 Each 10/21/19 17 Active Pantoprazole Sodium 40 MG Oral Tablet Delayed Release (Protonix) Take 1 Tablet by mouth in the morning. Active Acetaminophen 325 MG Oral Tablet Take 1 Tablet by mouth every 6 hours as needed. Active Famotidine 20 MG Oral Tablet Take 1 Tablet by mouth in the morning. Active Dutasteride 0.5 MG Oral Capsule (Avodart)Indic ations:BPH with obstruction/lo wer urinary tract symptoms Take 1 Capsule by mouth in the morning. 100 Capsule 3 11/21/2023 10:41 AM EDT 02/07/20 23 Active Additional Information Patient taking differently:0.5 mg OralDAILY NOON, Reported on 07/04/2024 rOPINIRole HCl 0.5 MG Oral Tablet (Requip)Indica tions:Restless legs syndrome Take 1 Tablet by mouth in the morning and 1 Tablet at noon and 1 Tablet before bedtime. With food. 300 Tablet 3 11/21/2023 10:41 AM EDT 02/07/20 23 Active buPROPion HCl ER (SR) 150 MG Oral Tablet Extended Release 12 Hour (Wellbutrin SR)Indications :Tobacco use disorder Take 1 Tablet by mouth in the morning and 1 Tablet before bedtime. 200 Tablet 3 11/21/2023 10:41 AM EDT 02/07/20 23 Active busPIRone HCl 5 MG Oral Tablet (Buspar)Indica tions:Anxiety state Take 1 Tablet by mouth in the morning and 1 Tablet before bedtime. 200 Tablet 3 11/21/2023 10:41 AM EDT 02/07/20 23 Active Ezetimibe 10 MG Oral Tablet (Zetia)Indicat ions:Dyslipide cristobal, goal LDL below 70 TAKE ONE TABLET BY MOUTH DAILY 100 Tablet 3 11/21/2023 10:41 AM EDT 02/07/20 23 Active Mirtazapine 15 MG Oral Tablet (Remeron)Indic ations:Anxiety state Take 1 Tablet by mouth at bedtime. 100 Tablet 3 11/21/2023 10:41 AM EDT 02/08/20 23 Active Rosuvastatin Calcium 40 MG Oral Tablet (Crestor)Indic ations:HTN, goal below 140/90 Take 1 Tablet by mouth in the morning. 100 Tablet 3 03/31/2024 6:45 AM EDT 08/17/19 24 Active Clopidogrel Bisulfate 75 MG Oral Tablet (pLAVix)Indica tions:HTN, goal below 140/90 Take 1 Tablet by mouth in the morning. 100 Tablet 3 11/21/2023 10:41 AM EDT 08/17/19 24 Active Tamsulosin HCl 0.4 MG Oral Capsule (Flomax) Take 1 Capsule by mouth in the morning. 90 Capsule 3 10/19/2023 3:56 PM EDT 10/18/19 24 Active Additional Information Patient taking differently:0.4 mg OralDAILY NOON, Reported on 07/04/2024 Pregabalin 75 MG Oral Capsule (Lyrica) Take [...] Sodium 1 MG Oral Tablet (Coumadin) Take tablet by mouth daily as directed by discharged instructions and the anticoagulation clinic. 14 Tablet 07/29/19 25 Active documented as of this encounter (statuses as of 07/30/2024) Active Problems Problem Noted Date Diagnosed Date Impaired mobility and ADLs 07/17/2024 S/P CABG x 4 07/08/2024 Coronary artery disease invo lving [place] coronary artery of [place] heart with unstable angina pectoris 07/03/2024 Vitamin [...] failure, systolic, due to CAD 09/08/2013 Old [place] (myocardial infarction) 09/08/2013 Dyslipidemia, goal LDL below 70 06/15/2009 Overview (06/15/2009): Per Lipid Taxonomy. Esophageal reflux 12/03/2007 BPH without obstruction/lower urinary tract symp toms 08/03/2006 Tobacco use disorder 06/03/2002 documented as of this encounter (statuses as of 07/30/2024) Resolved Problems Problem Noted Date Diagnosed Date Resolved Date Type 2 diabetes mellitus wit h autonomic neuropathy 08/17/2023 09/17/2023 Atherosclerosis of [place] co ronary artery without angina pectoris 08/17/2023 [...] as of this encounter (statuses as of 07/30/2024) Immunizations Name Administration Dates Next Due COVID-19 [...] encounter Miscellaneous Notes * Telephone Encounter - Kamron Vergara OSA - 07/30/2024 12:12 PM EST Date Scheduled: 07/30 Time: 1217pm In Person RNCM Special Instructions: enrollment appts scheduled documented in this encounter Plan of Treatment Upcoming Encounters Date Type Department Care Team (Late st Contact Info) Description 07/30/2024 12:45 PM EST Scheduled Telephone [facility], [facility] [address] [place] [address] Coordinator, [facility] [address] [facility] [place] [address] 07/30/2024 4:00 PM EST Home Visit [facility] [place], [facility] [address] [place] [address] Jhoana Fried RN [address] [place] [address] 08/01/2024 9:40 AM EST Pharmacy Family Practice [facility] [address] [facility], [place] [address] College, Pharmacist [address], [place] [address] 08/01/2024 10:00 AM EST Office Visit Family Practice [facility] [address] [facility], [place] [address] Leon Galvan, DO 293 [place] [address] 08/05/2024 10:30 AM EST Telemedicine [facility] [address] [place] [address] [place] [address] [facility], [facility] [address] [place] [address] [place] [address] 08/05/2024 1:00 PM EST Office Visit Family Practice [address] [place] [address] [address] [place] [phone] Leon Galvan, DO 293 [place] [address] 08/06/2024 12:30 PM EST Home Visit [facility] 132 [facility] [place] [address] Jhoana Fried, RN 132 [place] [address] 08/20/2024 10:45 AM EST Office Visit Cardiothoracic Surg [facility] [address] [place] [address] Jayden Galvan MD [address] [place] [address] 09/17/2024 8:40 AM EDT Office Visit Family Practice [address] [place] [address] [address] [place] [address] Leon Galvan, DO 293 [facility], [place] [address] 09/18/2024 8:00 AM EDT Office Visit Cardiology, [facility] 132 [facility] [place] [address] Alexandra Ellis CRNP [address] [place] [address] 09/29/2024 9:00 AM EDT Home Visit [facility], [facility] [address] [place] [address] Piot Rodriguez PA-C [address] [place] [address] 10/10/2024 3:30 PM EDT Imaging Radiology [facility] [address] [place] [phone] 10/17/2024 9:00 AM EDT Office Visit Urology, [place] [address] [place] [address] Johnathon Kent PA-C [address] [place], [place] [id number] 02/06/2025 9:30 AM EDT Office Visit Cardiology, [facility] [address] [place] [address] Poncho Robledo DO [address] [place] [address] Health Maintenance Due Date Last Done Comments Cologuard 1995 Sigmoidoscopy 1995 Fecal Occult Blood Test 12/20/2008 12/21/2007 *ADVANCE DIRECTIVE NOT ON FILE 2019 DISCUSS TOBACCO CESSATION (REFER TO SMARTSET #3291) 06/18/2024 06/18/2023, 01/24/2017 Adult Wellness Visit 02/17/2025 02/18/2024, 10/31/2022, 08/17/2021 Depression Screening 02/17/2025 02/18/2024, 01/02/20 24 O2 ASSESSMENT COMPLETED IN PAST YEAR FOR COPD 07/08/2025 07/08/2024 GFR 07/15/2025 07/15/2024, 01/0 12/2024, 07/13/2024, Additional history exists Albumin/Creatinine Ratio [...] this encounter Medical Devices Implanted Type Area Tongue Presser Device Identifier Shelf Expiration Date Model / Serial / Lot Lead Kit Trial [id number] 50cm - [id number] - [id number] Implanted:Qty: 1 on 05/08/2024 by Maged Monreal DO at OR [facility] Left: Back [employer] : PAIN MGMT 03/18/2026 [id number] 50E0 / [id number] / Lead Kit Trial [id number] 50cm - [id number] - [id number] Implanted:Qty: 1 on 05/08/2024 by Maged Monreal DO at OR [facility] Right: Back [employer] : PAIN MGMT 03/18/2026 [id number] 50E0 / [id number] / Suture Steel 6 B&S19 M654g - [id number] Implanted:Qty: 1 on 07/08/2024 by Jayden Galvan MD at OR [facility] N/A: Sternum JNJ : [employer] 03/08/2029 M654G / / [id number] Marker Coronary - [id number] Implanted:Qty: 1 on 07/08/2024 by Jayden Galvan MD at OR [facility] N/A: Heart [employer] 05/08/2027 [facility] / / [id number] Marker Coronary - [id number] Implanted:Qty: 1 on 07/08/2024 by Jayden Galvan MD at OR [facility] N/A: Heart [employer] 06/07/2027 [facility] / / [id number] documented as of this encounter Advance Directives * Full Code (Latest Code Status on File) Date Activated Date Inactivated Comments 07/08/2024 12:14 PM 07/15/2024 5:39 PM This order reflects the patients wishes and were consensually agreed upon. Question Answer Comments Discussion of Advance Directives occurred with: Patient Care Teams Horticulture Supervisor Relationship Specialty Start Date End Date Leon Galvan DO [address] [place] [address] PCP - General Internal Medicine 12/28/23 documented as of this encounter
--- OUTSIDE RECORDS SUMMARY | 2024-08-06 22:32 | External Medical Summary | Summary of Care ---
Author Name Unknown Organization [facility] Address [address] [place] [address] Phone [phone] Care Team Providers Care Quality Assurance Lab Technician Name Role Phone Fitz Galvan DO Primary Care Provider [phone] Encounter Details Date Type Department Care Team (Late st Contact Info) Description 07/30/2024 Refill Family Practice [address] [place] [address] [place] [address] Fitz Galvan DO [address] [place] [address] Gastroesophageal reflux disease without esophagitis* Allergies Active Allergy Reactions Criticality Noted Date Comments Codeine Other (Please comment) High 09/08/2013 Severe Skin peeling documented as of this encounter (statuses as of 07/30/2024) Medications oxygen GASIndications: Chronic coronary artery disease,COPD, [...] 1 Tablet by mouth in the morning. 025 Discontin ued(Refil l) Famotidine 20 MG Oral Tablet Take 1 Tablet by mouth in the morning. 025 Discontin ued(Refil l) documented as of this encounter (statuses as of 07/30/2024) Active Problems Problem Noted Date Diagnosed Date Impaired mobility and ADLs 07/17/2024 S/P CABG x 4 07/08/2024 Coronary artery disease invo lving [place] coronary artery of [place] heart with unstable angina pectoris 07/03/2024 Vitamin [...] failure, systolic, due to CAD 09/08/2013 Old [place] (myocardial infarction) 09/08/2013 Dyslipidemia, goal LDL below 70 06/15/2009 Overview (06/15/2009): Per Lipid Taxonomy. Esophageal reflux 12/03/2007 BPH without obstruction/lower urinary tract symp toms 08/03/2006 Tobacco use disorder 06/03/2002 documented as of this encounter (statuses as of 07/30/2024) Resolved Problems Problem Noted Date Diagnosed Date Resolved Date Type 2 diabetes mellitus wit h autonomic neuropathy 08/17/2023 09/17/2023 Atherosclerosis of [place] co ronary artery without angina pectoris 08/17/2023 [...] encounter Miscellaneous Notes * Telephone Encounter - Fitz Galvan DO - 07/30/2024 4:37 PM ESTSigned Prescriptions: Disp Refills Famotidine 20 MG Oral Tablet (Pepcid) 30 Tab*0 Sig: Take 1 Tablet by mouth in the morning.Authorizing Provider: FITZ GALVAN Pantoprazole Sodium 40 MG Oral Tablet Jamila*30 Tab*0 Sig: Take 1 Tablet by mouth in the morning.Authorizing Provider: FITZ GALVAN----- * Telephone Encounter - Patsy Hansen, [facility] - 07/30/2024 4:20 PM EST Confirmed via jhoana that patient has been on these drugs together for 2 weeks. They will dispense. Jhoana also said patient only has 2 tabs of pantoprazole and famotidine. Needs refills. Pended to PCP. Patsy Saldana, Pharm D, BCACP Clinical Pharmacist [address] [place] [address] - Medication Therapy [facility] 07/30/2024, 4:21 PM Ph. [phone] * Telephone Encounter - Ronit Booth OSA - 07/30/2024 4:07 PM EST Ana from [facility], Drug interaction. Warfarin and Amiodarone. Pt has not had these 2 ordered at [facility] before. They wanted if the pt has taken both at the same time before. documented in this encounter Plan of Treatment Upcoming Encounters Date Type Department Care Team (Late st Contact Info) Description 08/01/2024 9:40 AM EST Pharmacy Family Practice [address] [place] [address], [place] [address] College, Pharmacist [address] [place] [address], [place] [address] 08/01/2024 10:00 AM EST Office Visit Family Practice [address] [place] [address], [place] [address] Fitz Galvan, [address] [place] [address], [place] [address] 08/05/2024 10:30 AM EST Telemedicine [facility], [facility] [address] [place] [address] [place] [address] [facility], [facility] [address] [place] [address] [place] [address] 08/05/2024 1:00 PM EST Office Visit Family Practice [address] [place] [address] [place] [address] Fitz Galvan, DO [address] [place] [address] 08/06/2024 12:30 PM EST [facility] 132 [facility] [place] [address] Jhoana Fried RN 132 [place] [address] 08/20/2024 10:45 AM EST Office Visit Cardiothoracic Surg [facility] [address] [place] [address] Jayden Galvan MD [address] [place] [address] 09/17/2024 8:40 AM EDT Office Visit Family Practice [address] [place] [address] [address] [place] [address] Fitz Galvan, DO [address] [place] [address] 09/18/2024 8:00 AM EDT Office Visit Cardiology, [facility] 132 [facility] [place] [address] Alexandra Mackenzie CRNP 132 [facility] [place] [address] 09/29/2024 9:00 AM EDT Home Visit [facility], [facility] [address] [place] [address] Pito Rodriguez PA-C [address] [place] [address] 10/10/2024 3:30 PM EDT Imaging Radiology [facility] [address] [facility] [place] [address] 10/17/2024 9:00 AM EDT Office Visit Urology, [place] [address] [place] [address] Johnathon Kent PA-C [address] [place] [address] 02/06/2025 9:30 AM EDT Office Visit Cardiology, [facility], [place] [address] [place] [address] Poncho Robledo DO [address] [place] [address] Health Maintenance Due Date Last Done Comments [...] this encounter Medical Devices Implanted Type Area Drying Tunnel Operator Device Identifier Shelf Expiration Date Model / Serial / Lot Lead Kit Trial [id number] 50cm - [id number] - [id number] Implanted:Qty: 1 on 05/08/2024 by Maged Monreal DO at OR [facility] Left: Back [employer] : PAIN MGMT 03/18/2026 [id number] 50E0 / [id number] / Lead Kit Trial [id number] 50cm - [id number] - [id number] Implanted:Qty: 1 on 05/08/2024 by Maged Monreal DO at OR [facility] Right: Back [employer] : PAIN MGMT 03/18/2026 [id number] 50E0 / [id number] / Suture Steel 6 B&S19 M654g - [id number] Implanted:Qty: 1 on 07/08/2024 by Jayden Galvan MD at OR [facility] N/A: Sternum JNJ : [employer] 03/08/2029 M654G / / 103BLE Marker Coronary - [id number] Implanted:Qty: 1 on 07/08/2024 by Jayden Galvan MD at OR [facility] N/A: Heart [employer] 05/08/2027 [facility] / / [id number] Marker Coronary - [id number] Implanted:Qty: 1 on 07/08/2024 by Jayden Galvan MD at OR [facility] N/A: Heart [employer] 06/07/2027 [facility] / / [id number] documented as of this encounter Visit Diagnoses Diagnosis Gastroesophageal reflux disease without esophagitis- Primary Esophageal reflux documented in this encounter Advance Directives * Full Code (Latest Code Status on File) Date Activated Date Inactivated Comments 07/08/2024 12:14 PM 07/15/2024 5:39 PM This order reflects the patients wishes and were consensually agreed upon. Question Answer Comments Discussion of Advance Directives occurred with: Patient Care Teams Quality Assurance Lab Technician Relationship Specialty Start Date End Date Fitz Galvan DO [address] [place] [address] PCP - General Internal Medicine 12/28/23 documented as of this encounter
--- OUTSIDE RECORDS SUMMARY | 2024-08-06 22:32 | External Medical Summary | Summary of Care ---
Author Name Unknown Organization [facility] Address [address] [place] [address] Phone [phone] Care Team Providers Care Oceanographer Geological Name Role Phone Leon Galvan DO Primary Care Provider Reason for Visit * Reason Onset Date Comments [facility]: Maintenance 07/30/2024 Encounter Details Date Type Department Care Team (Late st Contact Info) Description 07/30/2024 12:45 PM EST Scheduled Telephone [facility], [place] [address] [place] [address] Coordinator, [facility] [address] [place] [address] Allergies Active Allergy Reactions Criticality Noted Date [...] Capsule 3 10/19/2023 3:56 PM EDT 10/18/19 Active Additional Information Patient taking differently:0.4 mg [...] 4 07/08/2024 Coronary artery disease invo lving [place] coronary artery of [place] heart with unstable angina pectoris 07/03/2024 Vitamin [...] failure, systolic, due to CAD 09/08/2013 Old [place] (myocardial infarction) 09/08/2013 Dyslipidemia, goal LDL below 70 06/15/2009 Overview (06/15/2009): Per Lipid Taxonomy. Esophageal reflux 12/03/2007 BPH without obstruction/lower urinary tract symp toms 08/03/2006 Tobacco use disorder 06/03/2002 documented as of this encounter (statuses as of 07/30/2024) Resolved Problems Problem Noted Date Diagnosed Date Resolved Date Type 2 diabetes mellitus wit h autonomic neuropathy 08/17/2023 09/17/2023 Atherosclerosis of [place] co ronary artery without angina pectoris 08/17/2023 [...] Beta-blockers contraindicated 11/23/2008 09/08/2013 Aspirin contraindicated 11/23/2008 0309/2013 COPD, mild 05/24/2005 12/18/2018 ADVANCE DIRECTIVE INFORMATION [...] CG/0.3 mL, 12 YRS AND ABOVE, IM (Pocket Concierge-ComirnatCirroSecure) 06/16/2024,05/07/2023 COVID-19, mRNA, LNP-s, PF, B ooster, [...] encounter Miscellaneous Notes * Telephone Encounter - Lulu Rivers LPN - 07/30/2024 1:34 PM EST Please see telephone encounters from today Patient has been d/c and appointments scheduled documented in this encounter Plan of Treatment Upcoming Encounters Date Type Department Care Team (Late st Contact Info) Description 07/30/2024 4:00 PM EST Home Visit [facility] [address] [place] [address] Jhoana Fried RN [address] [place] [address] 08/01/2024 9:40 AM EST Pharmacy Family Practice 65 [facility] 293 [place] [address] College, Pharmacist [address] [facility] 293 [place] [address] 08/01/2024 10:00 AM EST Office Visit Family Practice 65 [facility] 293 [place] [address] Leon Galvan, 293 [place] [address] 08/05/2024 10:30 AM EST Telemedicine [facility], [facility] [address] [place] [address] [place] [address] [facility], [facility] [address] [place] [address] [place] [address] 08/05/2024 1:00 PM EST Office Visit Family [address] [place] [address] Leon Galvan, [address] [place] [address] 08/06/2024 12:30 PM EST [facility] Visit [facility] 132 [place] [address] Jhoana Fried RN [address] [place] [address] 08/20/2024 10:45 AM EST Office Visit Cardiothoracic Surg [facility] [address] [place] [address] Jayden Galvan MD [address] [place] [address] 09/17/2024 8:40 AM EDT Office Visit [address] [place] [address] Leon Galvan, [address] [place] [address] 09/18/2024 8:00 AM EDT Office Visit Cardiology, [facility] [address] Alexandra Mackenzie CRNP 132 [place] [address] 09/29/2024 9:00 AM EDT [facility] Visit [facility] [place], [facility] [address] [place] [address] Pito Rodriguez PA-C [address] [place] [address] 10/10/2024 3:30 PM EDT Imaging Radiology [facility] [address] [place] [address] 10/17/2024 9:00 AM EDT Office Visit Urology, [place] [address] [place] [address] Johnathon Kent PA-C [address] [place] [address] 02/06/2025 9:30 AM EDT Office Visit Cardiology, [facility] [address] [place] [address] Poncho Robledo DO [address] [place] [address] Health Maintenance Due Date Last Done Comments [...] this encounter Medical Devices Implanted Type Area Filenet Admin Device Identifier Shelf Expiration Date Model / Serial / Lot Lead Kit Trial [id number] 50cm - [id number] - [id number] Implanted:Qty: 1 on 05/08/2024 by Maged Monreal, at OR [facility] Left: Back [employer] : PAIN MGMT 03/18/2026 [id number] 50E0 / [id number] / Lead Kit Trial [id number] 50cm - [id number] - [id number] Implanted:Qty: 1 on 05/08/2024 by Maged Monreal DO at OR [facility] Right: Back [employer] : PAIN MGMT 03/18/2026 [id number] 50E0 / [id number] / Suture Steel 6 B&S19 M654g - [id number] Implanted:Qty: 1 on 07/08/2024 by Jayden Galvan MD at OR [facility] N/A: Sternum JNJ : [employer] 03/08/2029 M654G / / 103BLE Marker Coronary - [id number] Implanted:Qty: 1 on 07/08/2024 by Jayden Galvan MD at OR [facility] N/A: Heart [employer] 05/08/2027 [facility] / / [id number] Marker Coronary - [id number] Implanted:Qty: 1 on 07/08/2024 by Jayden Galvan MD at OR [facility] N/A: Heart [employer] 06/07/2027 [facility] / / [id number] documented as of this encounter Advance Directives * Full Code (Latest Code Status on File) Date Activated Date Inactivated Comments 07/08/2024 12:14 PM 07/15/2024 5:39 PM This order reflects the patients wishes and were consensually agreed upon. Question Answer Comments Discussion of Advance Directives occurred with: Patient Care Teams Oceanographer Geological Relationship Specialty Start Date End Date Leon Galvan DO [address] [place] [address] PCP - General Internal Medicine 12/28/23 documented as of this encounter
--- OUTSIDE RECORDS SUMMARY | 2024-08-06 22:32 | External Medical Summary | Summary of Care ---
Author Name Unknown Organization [facility] Address [address] [place] [address] Phone [phone] Care Team Providers Care Hardware Supplies Sales Representative Name Role Phone Leon Galvan DO Primary Care Provider [phone] Reason for Visit * Reason Onset Date Comments Hospital Follow-Up 07/31/2024 Encounter Details Date Type Department Care Team (Late st Contact Info) Description 07/31/2024 9:45 AM EST Scheduled Telephone Family Practice 65 [facility] [address] [place] [address] Debbie Rodrigues RN [address] [place] [address] Allergies Active Allergy Reactions Criticality Noted Date [...] 4 07/08/2024 Coronary artery disease invo lving [place] coronary artery of [place] heart with unstable angina pectoris 07/03/2024 Vitamin [...] failure, systolic, due to CAD 09/08/2013 Old [place] (myocardial infarction) 09/08/2013 Dyslipidemia, goal LDL below 70 06/15/2009 Overview (06/15/2009): Per Lipid Taxonomy. Esophageal reflux 12/03/2007 BPH without obstruction/lower urinary tract symp toms 08/03/2006 Tobacco use disorder 06/03/2002 documented as of this encounter (statuses as of 07/31/2024) Resolved Problems Problem Noted Date Diagnosed Date Resolved Date Type 2 diabetes mellitus wit h autonomic neuropathy 08/17/2023 09/17/2023 Atherosclerosis of [place] co ronary artery without angina pectoris 08/17/2023 [...] encounter Miscellaneous Notes * Telephone Encounter - Debbie Rodrigues RN - 07/31/2024 9:53 AM EST MEJIA #1 Phone visit for post hospital d/c [facility] Dx: s/p CABG x 4 Dates of stay: [facility] 07/08/24-07/15/24; [facility] 07/15/24-07/29/24 Current Concerns/Problems: Pt states he is feeling good. Denies any pain. Is eating/drinking without any problems No problems with voiding/BM/appetite. He is getting around ok without use of walker. States incision is healing without s/s of infection. There had been a lot of confusion on the pt's medication. DAY[facility] pharmacist had been in contact with [facility] pharmacy, [facility] to get [facility]s all straightened out. [facility] went in yesterday to review his medications. Told pt to bring in all of his medications-old, new, prn, supplements and the pharmacist will review with pt-pt agreeable. Pt took his coumadin last PM and was going to the pharmacy to cloth picker the rest of his medications today. 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 no Shortness of breath? no Chest Pain? no Appetite: Denies problems Nausea/Vomiting/Diarrhea? none Dizziness/Lightheadedness? no Sleep: Denies problems Elimination: Denies problems Pain: Denies Wound: Yes: Site: chest Condition: clean and dry, no drainage Mobility: No restrictions Vitals: n/a Weight: n/a D/C Instructions received and understood? Yes Medications Reviewed? No-had just been reviewed with [facility] pharmacist at [address] [place] [address]-advised to bring all medications with him to his appt tomorrow. [facility] also was in yesterday to go over his medications. Medications Changes during hospitalization: NEW: amiodarone 200 mg 1 tab daily Potassium chloride ER 10 mEq 2 tabs in AM Warfarin 1 mg-take as directed CHANGE: carvedilol 3.125 mg 1 tab bid Furosemide 40 mg q AM Pregabalin 75 mg 1 capsule bid Ropinirole 0.5 mg 1 tab tid STOP: amlodipine 5 mg Apixaban 5 mg ASA 325 mg ASA 81 mg Baclofen 10 mg Enoxaparin 60 mg/0.6 ml injection Febuxostat 40 mg Isosorbide mononitrate SA 60 mg Lisinopril 40 mg Nitroglycerin 0.4 mg subl Oxycodone 5 mg Spironolactone 25 mg R/X Obtained: Yes-picking up rest this morning Post hospital appt scheduled: Yes Other Services/Equipment Coordinated: Yes - [facility] Patient Education: Is patient care managed? Yes G@[facility] and [facility] Care Management referral placed? no CM needs: Does the patient have adequate food, water and intermediate? yes I reinforced how to reach [address] [place] [address] triage after hours, weekends and holidays by calling clinic phone # documented in this encounter Plan of Treatment Upcoming Encounters Date Type Department Care Team (Late st Contact Info) Description 08/01/2024 9:40 AM EST Pharmacy Family Practice [address] [place] [address] [place] [address] College, Pharmacist [address] [place] [address] [place] [address] 08/01/2024 10:00 AM EST Office Visit Family Practice [facility] 293 [place] [address] Leon Galvan, DO [address] [place] [address] 08/05/2024 10:30 AM EST Telemedicine [facility] [address] [place] [address] [place] [address] [facility], [facility] [address] [place] [address] [place] [address] 08/05/2024 1:00 PM EST Office Visit Family Practice [facility] 293 [place] [address] Leon Galvan, DO 293 [place] [address] 08/06/2024 12:30 PM EST [facility] Visit [facility] [place] [address] Jhoana Fried RN [address] [facility] [place] [place] [address] 08/20/2024 10:45 AM EST Office Visit Cardiothoracic Surg [facility] [address] [place] [address] Jayden Galvan MD [address] [place] [address] 09/17/2024 8:40 AM EDT Office Visit Family Practice [facility] 293 [place] [address] Leon Galvan, DO 293 [place] [address] 09/18/2024 8:00 AM EDT Office Visit Cardiology, [facility] 132 [facility] [place] [address] Alexandra Mackenzie CRNP [address] [place] [address] 09/29/2024 9:00 AM EDT [facility] Visit [facility] [place] [address] [place] [address] Pito Rodriguez PA-C [address] [place] [address] 10/10/2024 3:30 PM EDT Imaging Radiology [facility] [address] [place] [phone] 10/17/2024 9:00 AM EDT Office Visit Urology, [place] [address] [place] [address] Johnathon Kent PA-C [address] [place] [address] 02/06/2025 9:30 AM EDT Office Visit Cardiology, [facility] [address] [place] [address] Poncho Robledo DO [address] [place] [address] Health Maintenance Due Date Last Done Comments [...] this encounter Medical Devices Implanted Type Area Tank Assembler Device Identifier Shelf Expiration Date Model / Serial / Lot Lead Kit Trial [id number] 50cm - [id number] - [id number] Implanted:Qty: 1 on 05/08/2024 by Maged Monreal, at OR [facility] Left: Back [employer] : PAIN MGMT 03/18/2026 [id number] 50E0 / [id number] / Lead Kit Trial [id number] 50cm - [id number] - [id number] Implanted:Qty: 1 on 05/08/2024 by Maged Monreal DO at OR [facility] Right: Back [employer] : PAIN MGMT 03/18/2026 [id number] 50E0 / [id number] / Suture Steel 6 B&S19 M654g - [id number] Implanted:Qty: 1 on 07/08/2024 by Jayden Galvan MD at OR [facility] N/A: Sternum JNJ : [employer] 03/08/2029 M654G / / 103BLE Marker Coronary - [id number] Implanted:Qty: 1 on 07/08/2024 by Jayden Galvan MD at OR [facility] N/A: Heart [employer] 05/08/2027 [facility] / / [id number] Marker Coronary - [id number] Implanted:Qty: 1 on 07/08/2024 by Jayden Galvan MD at OR [facility] N/A: Heart [employer] 06/07/2027 [facility] / / [id number] documented as of this encounter Advance Directives * Full Code (Latest Code Status on File) Date Activated Date Inactivated Comments 07/08/2024 12:14 PM 07/15/2024 5:39 PM This order reflects the patients wishes and were consensually agreed upon. Question Answer Comments Discussion of Advance Directives occurred with: Patient Care Teams Hardware Supplies Sales Representative Relationship Specialty Start Date End Date Leon Galvan DO [address] [place] [address] PCP - General Internal Medicine 12/28/23 documented as of this encounter
--- OUTSIDE RECORDS SUMMARY | 2024-08-06 22:32 | External Medical Summary | Summary of Care ---
Author Name Unknown Organization [facility] Address [address] [place] [address] Phone [phone] Care Team Providers Care Concrete Building Assembler Name Role Phone Leon Galvan DO Primary Care Provider [phone] Reason for Visit * Reason Onset Date Comments Hospital Follow-Up 07/30/2024 Encounter Details Date Type Department Care Team (Late st Contact Info) Description 07/30/2024 11:00 AM EST Scheduled Telephone Family Practice 65 [facility] [address] [place] [address] Debbie Rodrigues RN [address] [place] [address] Allergies Active Allergy Reactions Criticality [...] 4 07/08/2024 Coronary artery disease invo lving cocopah coronary artery of cocopah heart with unstable angina pectoris 07/03/2024 Vitamin [...] failure, systolic, due to CAD 09/08/2013 Old [place] (myocardial infarction) 09/08/2013 Dyslipidemia, goal LDL below 70 06/15/2009 Overview (06/15/2009): Per Lipid Taxonomy. Esophageal reflux 12/03/2007 BPH without obstruction/lower urinary tract symp toms 08/03/2006 Tobacco use disorder 06/03/2002 documented as of this encounter (statuses as of 07/31/2024) Resolved Problems Problem Noted Date Diagnosed Date Resolved Date Type 2 diabetes mellitus wit h autonomic neuropathy 08/17/2023 09/17/2023 Atherosclerosis of cocopah co ronary artery without angina pectoris 08/17/2023 [...] Telephone Encounter - Debbie Rodrigues RN - 07/30/2024 11:10 AM EST Phone visit for post hospital d/c [facility] and Longterm Dates of stay: [facility] 07/08/24-07/15/24; [facility] 07/15/24-07/29/24 Call to pt-no answer-unable to leave message d/t mailbox being full. Call to 's number-no answer-message left to call back at [phone] documented in this encounter Plan of Treatment Upcoming Encounters Date Type Department Care Team (Late st Contact Info) Description 08/01/2024 9:40 AM EST Pharmacy Family Practice 65 [facility] 293 [facility], [place] [address] College, Pharmacist [address], [place] [address] 08/01/2024 10:00 AM EST Office Visit Family Practice [facility] [address] Leon Galvan, DO 293 [facility] [place] [address] 08/05/2024 10:30 AM EST Telemedicine [facility] [address] [place] [address] [place] [address] [facility] [address] [place] [address] [place] [address] 08/05/2024 1:00 PM EST Office Visit Family Practice [address] [place] [address] 293 [place] [address] Leon Galvan, DO 293 [facility], [place] [address] 08/06/2024 12:30 PM EST Home Visit [facility] [address] at [facility] [place] [address] Jhoana Fried RN 132 [place] [address] 08/20/2024 10:45 AM EST Office Visit Cardiothoracic Surg [facility] [address] [place] [address] Jayden Galvan MD [address] [place] [address] 09/17/2024 8:40 AM EDT Office Visit Family Practice [address] [place] [address] 293 [place] [address] Leon Galvan, DO 293 [facility] [place] [address] 09/18/2024 8:00 AM EDT Office Visit Cardiology, [facility] 132 [facility] [place] [address] Alexandra Mackenzie CRNP 132 [facility] [place] [address] 09/29/2024 9:00 AM EDT Home Visit [facility] [place], [facility] [address] [place] [address] Pito Rodriguez PA-C [address] [place] [id number] 10/10/2024 3:30 PM EDT Imaging Radiology [facility] [address] [place] [phone] 10/17/2024 9:00 AM EDT Office Visit Urology, [place] [address] [place] [address] Johnathon Kent PA-C [address] [place] [address] 02/06/2025 9:30 AM EDT Office Visit Cardiology, [facility] [address] [place] [address] Poncho Robledo, [address] [place] [phone] Health Maintenance Due Date Last Done Comments [...] this encounter Medical Devices Implanted Type Area Manufacturing Finance Manager Device Identifier Shelf Expiration Date Model / Serial / Lot Lead Kit Trial [id number] 50cm - [id number] - [id number] Implanted:Qty: 1 on 05/08/2024 by Maged Monreal DO at OR [facility] Left: Back [employer]Team : PAIN MGMT 03/18/2026 [id number] 50E0 / [id number] / Lead Kit Trial [id number] 50cm - [id number] - [id number] Implanted:Qty: 1 on 05/08/2024 by Maged Monreal DO at OR [facility] Right: Back [employer] : PAIN MGMT 03/18/2026 [id number] 50E0 / [id number] / Suture Steel 6 B&S19 M654g - [id number] Implanted:Qty: 1 on 07/08/2024 by Jayden Galvan MD at OR [facility] N/A: Sternum JNJ : [employer] 03/08/2029 M654G / / 103BLE Marker Coronary - [id number] Implanted:Qty: 1 on 07/08/2024 by Jayden Galvan MD at OR [facility] N/A: Heart [employer] 05/08/2027 AM-SD / / [id number] Marker Coronary - [id number] Implanted:Qty: 1 on 07/08/2024 by Jayden Galvan MD at OR [facility] N/A: Heart [employer] 06/07/2027 [facility] / / [id number] documented as of this encounter Advance Directives * Full Code (Latest Code Status on File) Date Activated Date Inactivated Comments 07/08/2024 12:14 PM 07/15/2024 5:39 PM This order reflects the patients wishes and were consensually agreed upon. Question Answer Comments Discussion of Advance Directives occurred with: Patient Care Teams Concrete Building Assembler Relationship Specialty Start Date End Date Leon Galvan DO [address] [place] [address] PCP - General Internal Medicine 12/28/23 documented as of this encounter
--- OUTSIDE RECORDS SUMMARY | 2024-08-06 22:32 | External Medical Summary | Summary of Care ---
Author Name Unknown Organization [facility] Address [address] [place] [address] Phone [phone] Care Team Providers Care Harness Cutter Name Role Phone Leon Galvan DO Primary Care Provider [phone] Reason for Visit * Reason Comments Dosage Adjustment Via Phone (anticoag Cl inic) Encounter Details Date Type Department Care Team (Late st Contact Info) Description 07/29/2024 4:00 PM EST Anticoagulation Family Practice [address] [phone] College, Pharmacist [address] [address] Coronary artery disease involving mesa grande coronary artery of mesa grande heart with unstable angina pectoris (HCC)*; S/P CABG x 4 Allergies Active Allergy Reactions Criticality Noted Date Comments Codeine Other (Please comment) High 09/08/2013 Severe Skin peeling documented as of this encounter (statuses as of 07/31/2024) Medications oxygen GASIndications :Chronic coronary artery disease,COPD, mild (HCC),Heart failure, systolic, due to CAD (HCC) Use 2 L/min(Oxygen) as directed at bedtime. 1 Each 7 Active Acetaminophen 325 MG Oral Tablet Take 1 Tablet by mouth every 6 hours as needed. Active Dutasteride 0.5 MG Oral Capsule (Avodart)Indic ations:BPH with obstruction/lo wer urinary tract symptoms Take 1 Capsule by mouth in the morning. 100 Capsule 3 11/21/2023 10:41 AM EDT 3 Active Additional Information Patient taking differently:0.5 mg OralDAILY NOON, Reported on 07/30/2024 rOPINIRole HCl 0.5 MG Oral Tablet (Requip)Indica tions:Restless legs syndrome Take 1 Tablet by mouth in the morning and 1 Tablet at noon and 1 Tablet before bedtime. With food. 300 Tablet 3 11/21/2023 10:41 AM EDT 3 Active buPROPion HCl ER (SR) 150 MG Oral Tablet Extended Release 12 Hour (Wellbutrin SR)Indications :Tobacco use disorder Take 1 Tablet by mouth in the morning and 1 Tablet before bedtime. 200 Tablet 3 11/21/2023 10:41 AM EDT 3 Active busPIRone HCl 5 MG Oral Tablet (Buspar)Indica tions:Anxiety state Take 1 Tablet by mouth in the morning and 1 Tablet before bedtime. 200 Tablet 3 11/21/2023 10:41 AM EDT 3 Active Ezetimibe 10 MG Oral Tablet (Zetia)Indicat ions:Dyslipide cristobal, goal LDL below 70 TAKE ONE TABLET BY MOUTH DAILY 100 Tablet 3 11/21/2023 10:41 AM EDT 3 Active Mirtazapine 15 MG Oral Tablet (Remeron)Indic ations:Anxiety state Take 1 Tablet by mouth at bedtime. 100 Tablet 3 11/21/2023 10:41 AM EDT 3 Active Rosuvastatin Calcium 40 MG Oral Tablet (Crestor)Indic ations:HTN, goal below 140/90 Take 1 Tablet by mouth in the morning. 100 Tablet 3 03/31/2024 6:45 AM EDT 4 Active Clopidogrel Bisulfate 75 MG Oral Tablet (pLAVix)Indica tions:HTN, goal below 140/90 Take 1 Tablet by mouth in the morning. 100 Tablet 3 11/21/2023 10:41 AM EDT 4 Active Tamsulosin HCl 0.4 MG Oral Capsule (Flomax) Take 1 Capsule by mouth in the morning. 90 Capsule 3 10/19/2023 3:56 PM EDT 4 Active Additional Information Patient taking differently:0.4 mg OralDAILY NOON, Reported on 07/30/2024 Pregabalin 75 MG Oral Capsule (Lyrica) Take 1 Capsule by mouth in the morning and 1 Capsule before bedtime. 60 Capsule 5 Active Furosemide 40 MG Oral Tablet (Lasix) Take 1 Tablet by mouth in the morning. 30 Tablet 5 Active Pantoprazole Sodium 40 MG Oral Tablet Delayed Release (Protonix) Take 1 Tablet by mouth in the morning. 07/30/19 25 Discontin ued(Refil l) Famotidine 20 MG Oral Tablet Take 1 Tablet by mouth in the morning. 07/30/19 25 Discontin ued(Refil l) documented as of this encounter (statuses as of 07/31/2024) Active Problems Problem Noted Date Diagnosed Date Impaired mobility and ADLs 07/17/2024 S/P CABG x 4 07/08/2024 Coronary artery disease invo lving mesa grande coronary artery of mesa grande heart with unstable angina pectoris 07/03/2024 Vitamin [...] failure, systolic, due to CAD 09/08/2013 Old [place] (myocardial infarction) 09/08/2013 Dyslipidemia, goal LDL below 70 06/15/2009 Overview (06/15/2009): Per Lipid Taxonomy. Esophageal reflux 12/03/2007 BPH without obstruction/lower urinary tract symp toms 08/03/2006 Tobacco use disorder 06/03/2002 documented as of this encounter (statuses as of 07/31/2024) Resolved Problems Problem Noted Date Diagnosed Date Resolved Date Type 2 diabetes mellitus wit h autonomic neuropathy 08/17/2023 09/17/2023 Atherosclerosis of [place]a grande co ronary artery without angina pectoris 08/17/2023 [...] CG/0.3 mL, 12 YRS AND ABOVE, IM (PFIZER-Comirnat) 06/16/2024,05/07/2023 COVID-19, mRNA, LNP-s, PF, B ooster, [...] as of this encounter Progress Notes * Franky Saldana, Patsy Everardo, [facility] - 07/30/2024 8:07 AM EST Medication Therapy Disease Management - Anticoagulation Patient: Henri Vigil | : 1950 Subjective Contacts Contact Date/Time Type Contact Phone/Fax 07/29/2024 04:03 PM EST Phone (Outgoing) Henri Vigil (Self) [phone] (M) 07/29/2024 04:40 PM EST Phone (Outgoing) Henri Vigil (Self) [phone] (M) 07/30/2024 08:07 AM EST Phone (Outgoing) Henri Vigil (Self) [phone] (M) Patient-Reported Symptoms: Objective Current Warfarin Dose As of 07/29/2024 Warfarin maintenance plan: 1 mg daily per PA-C at rehab INR Result As of 07/29/2024 INR goal: 2.0-3.0 INR used for dosin.4 (07/28/2024) Assessment & Plan Warfarin Plan As of 07/29/2024 Full warfarin instructions: 07/29: Missed due to no doses at home; 07/30: 1 mg; 07/31: 1 mg; 08/01: 1 mg; 08/02: 1 mg; 08/03: 1 mg; 08/04: 1 mg; 08/05: 1 mg; 08/06: 1 mg; 08/07: 1 mg Next INR check: 08/01/2024 Repeat PT/INR in 3 day(s) Weekly dose: not changed Additional Dosing Information: Stressed to patient importance of taking the warfarin daily. Do NOT take eliquis until 08/07 when we stop warfarin. Called [facility] multiple times to get warfarin script processed. Sent by Rena Diaz electronically after they wouldn't fill paper scripts I spent a total of 30-39 minutes (exact time 35 mins) on the date of service in preparation, delivery, and documentation of the care provided to Henri Manzanares Lose excluding any time spent in the performance of separately billed services or time spent by another provider/QHP. Patsy Brown [facility] Clinical Pharmacist 07/30/2024, 8:11 AM documented in this encounter Plan of Treatment Upcoming Encounters Date Type Department Care Team (Late st Contact Info) Description 08/01/2024 9:40 AM EST Pharmacy Family Practice [address] [place] [address], [place] [address] College, Pharmacist [address] [place] [address] 08/01/2024 10:00 AM EST Office Visit Family Practice [address] [place] [address], [place] [phone] Leon Galvan, [address] [place] [address], [place] [address] 08/05/2024 10:30 AM EST Telemedicine Card[facility] Re[facility] [address] [place] [address] [place] [address] [facility], [facility] [address] [place] [address] [place] [address] 08/05/2024 1:00 PM EST Office Visit Family Practice [address] [place] [address], [place] [address] Leon Galvan, DO 293 [place] [address] 08/06/2024 12:30 PM EST Home Visit [facility] at [facility] [address] [place] [address] Jhoana Fried, RN [address] [place] [address] 08/20/2024 10:45 AM EST Office Visit [facility] [place] [address] [place] [address] Jayden Galvan MD [address] [place] [address] 09/17/2024 8:40 AM EDT Office Visit Family Practice [address] [place] [address] 293 [place] [address] Leon Galvan, 293 [place] [address] 09/18/2024 8:00 AM EDT Office Visit Cardiology, [facility] 132 [facility] [place] [address] Alexandra Mackenzie CRNP 132 [facility] [place] [address] 09/29/2024 9:00 AM EDT [facility] 132 [facility] [place] [address] Pito Rodriguez PA-C [facility] [place] [address] 10/10/2024 3:30 PM EDT Imaging Radiology [facility] 132 [facility] [place] [address] 10/17/2024 9:00 AM EDT Office Visit Urology, [place] [address] [place] [address] Johnathon Kent PA-C [address] [place] [address] 02/06/2025 9:30 AM EDT Office Visit Cardiology, [facility] [address] [place] [address] Pnocho Robledo, DO [address] [place] [address] Health Maintenance Due Date Last Done Comments [...] this encounter Medical Devices Implanted Type Area Cripple Worker Device Identifier Shelf Expiration Date Model / Serial / Lot Lead Kit Trial [id number] 50cm - [id number] - [id number] Implanted:Qty: 1 on 05/08/2024 by Maged Monreal DO at OR [facility] Left: Back [employer] : PAIN MGMT 03/18/2026 [id number] 50E0 / [id number] / Lead Kit Trial [id number] 50cm - [id number] - [id number] Implanted:Qty: 1 on 05/08/2024 by Maged Monreal DO at OR [facility] Right: Back [employer] : PAIN MGMT 03/18/2026 [id number] 50E0 / [id number] / Suture Steel 6 B&S19 M654g - [id number] Implanted:Qty: 1 on 07/08/2024 by Jayden Galvan MD at OR [facility] N/A: Sternum JNJ : [employer] 03/08/2029 M654G / / 103BLE Marker Coronary - [id number] Implanted:Qty: 1 on 07/08/2024 by Jayden Galvan MD at OR [facility] N/A: Heart [employer] 05/08/2027 AM-SD / / [id number] Marker Coronary - [id number] Implanted:Qty: 1 on 07/08/2024 by Jayden Galvan MD at OR [facility] N/A: Heart [employer] 06/07/2027 AM-SD / / [id number] documented as of this encounter Visit Diagnoses Diagnosis Coronary artery disease involving mesa grande coronary artery of mesa grande heart with unstable angina pectoris (HCC)- Primary S/P CABG x 4 Postsurgical aortocoronary bypass status documented in this encounter Advance Directives * Full Code (Latest Code Status on File) Date Activated Date Inactivated Comments 07/08/2024 12:14 PM 07/15/2024 5:39 PM This order reflects the patients wishes and were consensually agreed upon. Question Answer Comments Discussion of Advance Directives occurred with: Patient Care Teams Harness Cutter Relationship Specialty Start Date End Date Leon Galvan DO [address] [place] [address] PCP - General Internal Medicine 12/28/23 documented as of this encounter"
--- OUTSIDE RECORDS SUMMARY | 2024-08-06 22:32 | External Medical Summary ---
Author Name Unknown Address Unknown Organization K01:[facility] [address] [facility] [address] Laboratory Report Ordering Provider Test Date Status LUC BYRNES 08/01/2024 11:05:56 Final Observation Date Value Abnormality Reference (Units ) Status SYNC LEUKOCYTES IN BLOOD BY AUTOMATED COUNT 08/01/2024 11:05:56 7.13 4.00-10.80 (K/uL) Final Segs 08/01/2024 11:05:56 53.3 40.0-75.0 (%) Final Lymphs % 08/01/2024 11:05:56 25.7 18.0-42.0 (%) Final Monos 08/01/2024 11:05:56 8.3 1.0-11.0 (%) Final Eosinophils 08/01/2024 11:05:56 11.6 Above high normal 0.0-6.0 (%) Final Basos 08/01/2024 11:05:56 0.8 0.0-2.0 (%) Final Immature Granulocyte, Percent 08/01/2024 11:05:56 0.3 0.0-2.0 (%) Final Absolute Segs 08/01/2024 11:05:56 3.80 1.80-7.70 (K/uL) Final Lymphs, absolute 08/01/2024 11:05:56 1.83 1.00-4.80 (K/ul) Final Monos, Abs 08/01/2024 11:05:56 0.59 0.00-1.10 (K/uL) Final Eos, Abs 08/01/2024 11:05:56 0.83 Above high normal 0.00-0.70 (K/uL) Final Basos, Abs 08/01/2024 11:05:56 0.06 0.00-0.20 (K/uL) Final Immature Granulocytes, Number 08/01/2024 11:05:56 0.02 0.00-0.20 (K/uL) Final Performing Location [facility] [address] [facility] [address]
--- OUTSIDE RECORDS SUMMARY | 2024-08-06 22:32 | External Medical Summary | Summary of Care ---
Author Name Unknown Organization [facility] Address [address] [place] [address] Phone [phone] Care Team Providers Care Gore Seamer Name Role Phone Leon Galvan DO Primary Care Provider [phone] Encounter Details Date Type Department Care Team (Late st Contact Info) Description 07/29/2024 Telephone Cardiothoracic Surg [facility] [address] [place] [address] Madalyn Willis CRNP [address] [place] [address] Allergies Active Allergy Reactions Criticality Noted Date [...] 07/08/2024 Coronary artery disease invo lving red cliff coronary artery of red cliff heart with unstable angina pectoris 07/03/2024 Vitamin [...] failure, systolic, due to CAD 09/08/2013 Old [place] (myocardial infarction) 09/08/2013 Dyslipidemia, goal LDL below 70 06/15/2009 Overview (06/15/2009): Per Lipid Taxonomy. Esophageal reflux 12/03/2007 BPH without obstruction/lower urinary tract symp toms 08/03/2006 Tobacco use disorder 06/03/2002 documented as of this encounter (statuses as of 07/30/2024) Resolved Problems Problem Noted Date Diagnosed Date Resolved Date Type 2 diabetes mellitus wit h autonomic neuropathy 08/17/2023 09/17/2023 Atherosclerosis of red cliff co ronary artery without angina pectoris 08/17/2023 [...] encounter Miscellaneous Notes * Telephone Encounter - Madalyn Willis CRNP - 07/29/2024 5:14 PM EST Received page to call [facility] pharmacy. Called pharmacy - wondering about instructions for coumadin - script was sent by rehab staff - justneeded to add dosage and frequency per anticoagulation clinic on script - also asking about lyrica.Advised that this was a home med that was started before we did surgery on him, and we would recommend reaching out to rehab staff to see if there are any changes - we do not know if they recommended stopping or continuing it for any reason at this point as he was discharged from hospital 07/08. Pharmacy advised he will call rehab staff tomorrow documented in this encounter Plan of Treatment Upcoming Encounters Date Type Department Care Team (Late st Contact Info) Description 07/30/2024 4:00 PM EST Home Visit [facility] at [place], [facility] [address] [place] [address] Jhoana Fried, RN 132 [place] [address] 08/01/2024 9:40 AM EST Pharmacy Family Practice 65 [facility] [address] College, Pharmacist [address] [place], [place] [address] [address] 08/01/2024 10:00 AM EST Office Visit Family Practice 65 [facility] 293 [facility] [place] [phone] Leon Galvan, 293 [place] [address] 08/05/2024 10:30 AM EST Telemedicine Card[facility] [address] [place] [address] [place] [address] [facility], [facility] [address] [place] [address] [place] [address] 08/05/2024 1:00 PM EST Office Visit Family Practice 65 [facility] 293 [facility] [place] [phone] Leon Galvan, DO 293 [place] [address] 08/06/2024 12:30 PM EST [facility] Visit [facility] 132 [place] [address] Jhoana Fried, RN 132 [place] [address] 08/20/2024 10:45 AM EST Office Visit [facility]acic Surg [facility] [address] [place] [address] Jayden Galvan MD [address] [place] [address] 09/17/2024 8:40 AM EDT Office Visit Family Practice 65 [facility] 293 [facility] [place] [address] Leon Galvan, 293 [place] [address] 09/18/2024 8:00 AM EDT Office Visit Cardiology, [facility] [address] [place] [address] Alexandra Mackenzie CRNP [address] [place] [address] 09/29/2024 9:00 AM EDT Home Visit [facility] at Home, [facility] [address] [place] [address] Pito Rodriguez PA-C [address] [place] [address] 10/10/2024 3:30 PM EDT Imaging Radiology [facility] [address] [place] [phone] 10/17/2024 9:00 AM EDT Office Visit Urology, [place] [address] [place] [address] Johnathon Kent PA-C [address] [place] [address] 02/06/2025 9:30 AM EDT Office Visit Cardiology, [facility] [address] [place] [address] Poncho Robledo DO [address] [place] [address] Health Maintenance Due Date Last Done Comments [...] this encounter Medical Devices Implanted Type Area Plaster Form Maker Device Identifier Shelf Expiration Date Model / Serial / Lot Lead Kit Trial [id number] 50cm - [id number] - [id number] Implanted:Qty: 1 on 05/08/2024 by Maged Monreal, at OR [facility] Left: Back [employer]ilibis : PAIN MGMT 03/18/2026 [id number] 50E0 / [id number] / Lead Kit Trial [id number] 50cm - [id number] - [id number] Implanted:Qty: 1 on 05/08/2024 by Maged Monreal DO at OR [facility] Right: Back [employer] : PAIN MGMT 03/18/2026 [id number] 50E0 / [id number] / Suture Steel 6 B&S19 M654g - [id number] Implanted:Qty: 1 on 07/08/2024 by Jayden Galvan MD at OR [facility] N/A: Sternum JNJ : [employer] 03/08/2029 M654G / / 103BLE Marker Coronary - [id number] Implanted:Qty: 1 on 07/08/2024 by Jayden Galvan MD at OR [facility] N/A: Heart [employer] 05/08/2027 AM-SD / / [id number] Marker Coronary - [id number] Implanted:Qty: 1 on 07/08/2024 by Jayden Galvan MD at OR [facility] N/A: Heart [employer] 06/07/2027 AM-SD / / [id number] documented as of this encounter Advance Directives * Full Code (Latest Code Status on File) Date Activated Date Inactivated Comments 07/08/2024 12:14 PM 07/15/2024 5:39 PM This order reflects the patients wishes and were consensually agreed upon. Question Answer Comments Discussion of Advance Directives occurred with: Patient Care Teams Gore Seamer Relationship Specialty Start Date End Date Leon Galvan DO [address] [place] [address] PCP - General Internal Medicine 12/28/23 documented as of this encounter
--- OUTSIDE RECORDS SUMMARY | 2024-08-06 22:32 | External Medical Summary | Summary of Care ---
Author Name Unknown Organization [facility] Address [address] Care Team Providers Care Seed Collector Name Role Phone MandyLeon DO Primary Care Provider [phone] Reason for Visit * Reason Onset Date Comments Med Request 07/30/2024 Encounter Details Date Type Department Care Team (Late st Contact Info) Description 07/30/2024 Telephone Pharmacy, [facility] [address] [facility] [place] [address] [place], Pharmacist [address] [place] [address] [place] [address] Med Request Allergies Active Allergy Reactions Criticality Noted Date [...] anticoagulation clinic. 14 Tablet 07/30/19 25 Active Warfarin Sodium 1 MG Oral Tablet (Coumadin) Take tablet by mouth daily as directed by discharged instructions and the anticoagulation clinic. 14 Tablet 07/29/19 25 025 Discontin ued(Refil l) documented as of this encounter (statuses as of 07/30/2024) Active Problems Problem Noted Date Diagnosed Date Impaired mobility and ADLs 07/17/2024 S/P CABG x 4 07/08/2024 Coronary artery disease invo lving [place] coronary artery of [place] heart with unstable angina pectoris 07/03/2024 Vitamin [...] failure, systolic, due to CAD 09/08/2013 Old [place] (myocardial infarction) 09/08/2013 Dyslipidemia, goal LDL below 70 06/15/2009 Overview (06/15/2009): Per Lipid Taxonomy. Esophageal reflux 12/03/2007 BPH without obstruction/lower urinary tract symp toms 08/03/2006 Tobacco use disorder 06/03/2002 documented as of this encounter (statuses as of 07/30/2024) Resolved Problems Problem Noted Date Diagnosed Date Resolved Date Type 2 diabetes mellitus wit h autonomic neuropathy 08/17/2023 09/17/2023 Atherosclerosis of [place] co ronary artery without angina pectoris 08/17/2023 [...] encounter Miscellaneous Notes * Telephone Encounter - Imelda Blank RPh - 07/30/2024 3:45 PM EST Reviewed anticoagulation notes from yesterday. Patient to take Warfarin 1 mg (1 tablet) daily with repeat INR scheduled for 08/01/24. Updated script for Warfarin 1 mg tablets sent to [facility] as requested Imelda Blank [facility] Clinical Pharmacist 07/30/24 3:46 PM * Telephone Encounter - Mariama Esquivel CPhT - 07/30/2024 3:39 PM EST Caller's name: Walter Jackson from [facility] Preferred call back number(OFFICE NUMBER FOR ): [phone] Reason for call: asking that you resend the warfarin 1mg prescription, it says take tablet, can youplease add "one" tablet or as directed so he can process the script, thank you. Mariama Esquivel CPhT, ID Production Team Advisor II [facility] ([facility]) (formerly Telepharmacy) [phone] [facility] [phone] [place] [address] ext [phone] documented in this encounter Plan of Treatment Upcoming Encounters Date Type Department Care Team (Late st Contact Info) Description 08/01/2024 9:40 AM EST Pharmacy Family Practice [address] [place] [phone] College, Pharmacist [address] [address] 08/01/2024 10:00 AM EST Office Visit Family Practice [address] [place] [address], [place] [phone] Leon Galvan, DO [address] [place] [address] 08/05/2024 10:30 AM EST Telemedicine [facility] [address] [place] [address] [place] [address] [facility] [address] [place] [address] [place] [address] 08/05/2024 1:00 PM EST Office Visit Family Practice [address] [place] [address], [place] [phone] Leon Galvan, DO [address] [place] [address], [place] [address] 08/06/2024 12:30 PM EST Home Visit [facility] 132 [facility] [place] [address] Jhoana Fried, RN 132 [facility] [place] [address] 08/20/2024 10:45 AM EST Office Visit Cardiothoracic Surg [facility] [address] [place] [address] Jayden Galvan MD [address] [place], [place] [id number] 09/17/2024 8:40 AM EDT Office Visit Family Practice [address] [place] [address] 293 [place] [address] Leon Galvan DO 293 [place] [address] 09/18/2024 8:00 AM EDT Office Visit Cardiology, [facility] 132 [facility] [place] [address] Alexandra Mackenzie CRNP [facility] [place] [address] 09/29/2024 9:00 AM EDT Home Visit [facility] [place] [address] Pito Rodriguez PA-C 132 [facility] [place] [address] 10/10/2024 3:30 PM EDT Imaging Radiology [facility] 132 [facility] [place] [phone] 10/17/2024 9:00 AM EDT Office Visit Urology, [place] [address] [place] [address] Johnathon Kent PA-C [address] [place] [address] 02/06/2025 9:30 AM EDT Office Visit Cardiology, [facility] 132 [facility] [place] [address] Poncho Robledo DO [address] [place] [address] Health Maintenance Due Date Last Done Comments Cologuard 1995 Sigmoidoscopy 1995 Fecal Occult Blood Test 12/20/2008 12/21/2007 *ADVANCE DIRECTIVE NOT ON FILE 2019 DISCUSS TOBACCO CESSATION (REFER TO SMARTSET #0790) 06/18/2024 06/18/2023, 01/24/2017 Adult Wellness Visit 02/17/2025 [...] this encounter Medical Devices Implanted Type Area Glost Kiln Placer Device Identifier Shelf Expiration Date Model / Serial / Lot Lead Kit Trial [id number] 50cm - [id number] - [id number] Implanted:Qty: 1 on 05/08/2024 by Maged Monreal DO at OR [facility] Left: Back [employer] : PAIN MGMT 03/18/2026 [id number] 50E0 / [id number] / Lead Kit Trial [id number] 50cm - [id number] - [id number] Implanted:Qty: 1 on 05/08/2024 by Maged Monreal DO at OR [facility] Right: Back [employer] : PAIN MGMT 03/18/2026 [id number] 50E0 / [id number] / Suture Steel 6 B&S19 M654g - [id number] Implanted:Qty: 1 on 07/08/2024 by Jayden Galvan MD at OR [facility] N/A: Sternum JNJ : [employer] 03/08/2029 M654G / / 103BLE Marker Coronary - [id number] Implanted:Qty: 1 on 07/08/2024 by Jayden Galvan MD at OR [facility] N/A: Heart [employer] 05/08/2027 [facility] / / [id number] Marker Coronary - [id number] Implanted:Qty: 1 on 07/08/2024 by Jayden Galvan MD at OR [facility] N/A: Heart [employer] 06/07/2027 [facility] / / [id number] documented as of this encounter Advance Directives * Full Code (Latest Code Status on File) Date Activated Date Inactivated Comments 07/08/2024 12:14 PM 07/15/2024 5:39 PM This order reflects the patients wishes and were consensually agreed upon. Question Answer Comments Discussion of Advance Directives occurred with: Patient Care Teams Seed Collector Relationship Specialty Start Date End Date Leon Galvan DO [address] [place] [address] PCP - General Internal Medicine 12/28/23 documented as of this encounter
--- OUTSIDE RECORDS SUMMARY | 2024-08-06 22:33 | External Medical Summary | Summary of Care ---
Author Name Unknown Organization [facility] Address [address] [place] [address] Phone [phone] Care Team Providers Care Grain Elevator Motor Starter Name Role Phone Leon Galvan DO Primary Care Provider [phone] Reason for Visit * Reason Onset Date Comments [facility]: Maintenance 07/30/2024 Encounter Details Date Type Department Care Team (Late st Contact Info) Description 07/30/2024 Telephone [facility], [address] [place] [address] Radha Nascimento RN [address] [place] [address] [facility]: Maintenance Allergies Active Allergy Reactions Criticality Noted Date [...] 4 07/08/2024 Coronary artery disease invo lving [place] coronary artery of [place] heart with unstable angina pectoris 07/03/2024 Vitamin [...] failure, systolic, due to CAD 09/08/2013 Old [place] (myocardial infarction) 09/08/2013 Dyslipidemia, goal LDL below 70 06/15/2009 Overview (06/15/2009): Per Lipid Taxonomy. Esophageal reflux 12/03/2007 BPH without obstruction/lower urinary tract symp toms 08/03/2006 Tobacco use disorder 06/03/2002 documented as of this encounter (statuses as of 07/30/2024) Resolved Problems Problem Noted Date Diagnosed Date Resolved Date Type 2 diabetes mellitus wit h autonomic neuropathy 08/17/2023 09/17/2023 Atherosclerosis of [place] co ronary artery without angina pectoris 08/17/2023 [...] CG/0.3 mL, 12 YRS AND ABOVE, IM ([employer]-Comirnat[employer]uffle) 06/16/2024,05/07/2023 COVID-19, mRNA, LNP-s, PF, B ooster, [...] encounter Miscellaneous Notes * Telephone Encounter - Radha Nascimento RN - 07/30/2024 11:49 AM EST Received outreach from Nelida PARRISH informing [facility] of SNF dc and need for urgent medication reconciliation. Discussed with [facility] team. Pt scheduled for home visit with med rec today at 4pm. Nelida beachon same. Call to patient's number. No answer. VM full. Unable to leave message. Called and left voicemail left for with today's visit time and call back number. documented in this encounter Plan of Treatment Upcoming Encounters Date Type Department Care Team (Late st Contact Info) Description 07/30/2024 12:45 PM EST Scheduled Telephone [facility], [facility] [address] [place] [address] Coordinator, [facility] [address] [place] [address] 07/30/2024 4:00 PM EST Home Visit [facility], [facility] 132 [place] [address] Jhoana Fried, RN 132 [place] [address] 08/01/2024 9:40 AM EST Pharmacy Family Practice [address], [place] 293 [facility] [place] [address] College, Pharmacist [address] [place] [address] 08/01/2024 10:00 AM EST Office Visit Family Practice 65 [facility] 293 [facility] [place] [address] Leon Galvan, DO 293 [facility], [place] [address] 08/05/2024 10:30 AM EST Telemedicine [facility] [address] [place] [address] [place] [address] [facility] [address] [place] [address] [place] [address] 08/05/2024 1:00 PM EST Office Visit Family Practice 65 [facility] 293 [facility] [place] [address] Leon Galvan, 293 [facility], [place] [address] 08/20/2024 10:45 AM EST Office Visit Cardiothoracic Surg [facility] [address] [place] [address] Jayden Galvan MD [address] [place] [address] 09/17/2024 8:40 AM EDT Office Visit Family Practice 65 [facility] 293 [facility] [place] [address] Leon Galvan, 293 [facility], [place] [address] 09/18/2024 8:00 AM EDT Office Visit Cardiology, [address] [place] [address] Alexandra Mackenzie CRNP [address] [place] [address] 10/10/2024 3:30 PM EDT Imaging Radiology [facility] [address] [place] [address] 10/17/2024 9:00 AM EDT Office Visit Urology, [place] [address] [place] [address] Johnathon Kent PA-C [address] [place], [place] [address] 02/06/2025 9:30 AM EDT Office Visit Cardiology, [facility] [address] [place] [address] Poncho Robledo DO [address] [place] [address] Health Maintenance Due Date Last Done Comments [...] this encounter Medical Devices Implanted Type Area Eddy Current Inspector Device Identifier Shelf Expiration Date Model / Serial / Lot Lead Kit Trial [id number] 50cm - [id number] - [id number] Implanted:Qty: 1 on 05/08/2024 by Maged Monreal, at OR [facility] Left: Back [employer] : PAIN MGMT 03/18/2026 [id number] 50E0 / [id number] / Lead Kit Trial [id number] 50cm - [id number] - [id number] Implanted:Qty: 1 on 05/08/2024 by Maged Monreal DO at OR [facility] Right: Back [employer] : PAIN MGMT 03/18/2026 [id number] 50E0 / [id number] / Suture Steel 6 B&S19 M654g - [id number] Implanted:Qty: 1 on 07/08/2024 by Jayden Galvan MD at [place] [facility] N/A: Sternum JNJ : [employer] 03/08/2029 M654G / / 103BLE Marker Coronary - [id number] Implanted:Qty: 1 on 07/08/2024 by Jayden Galvan MD at [place] [facility] N/A: Heart [employer] 05/08/2027 [facility] / / [id number] Marker Coronary - [id number] Implanted:Qty: 1 on 07/08/2024 by Jayden Galvan MD at [place] [facility] N/A: Heart [employer] 06/07/2027 [facility] / / [id number] documented as of this encounter Advance Directives * Full Code (Latest Code Status on File) Date Activated Date Inactivated Comments 07/08/2024 12:14 PM 07/15/2024 5:39 PM This order reflects the patients wishes and were consensually agreed upon. Question Answer Comments Discussion of Advance Directives occurred with: Patient Care Teams Grain Elevator Motor Starter Relationship Specialty Start Date End Date Leon Galvan DO 293 [facility], [place] [address] PCP - General Internal Medicine 12/28/23 documented as of this encounter
--- OUTSIDE RECORDS SUMMARY | 2024-08-06 22:33 | External Medical Summary | Summary of Care ---
Author Name Unknown Organization [facility] Address [address] [place] [address] Phone [phone] Care Team Providers Care Transition Of Care Specialist Name Role Phone Leon Galvan DO Primary Care Provider [phone] Reason for Visit * Reason Onset Date Comments FYI 07/28/2024 Discharge appoin tment Encounter Details Date Type Department Care Team (Late st Contact Info) Description 07/28/2024 Telephone Family Practice 65 [facility] [place] 293 [place] [address] Leon Galvan DO [address] [place] [address] FYI (Discharge appointment) Allergies Active Allergy Reactions Criticality Noted Date Comments Codeine Other (Please comment) High 09/08/2013 Severe Skin peeling documented as of this encounter (statuses as of 07/28/2024) Medications oxygen GASIndications :Chronic coronary artery disease,COPD, [...] and 1 Tablet before bedtime. 200 Tablet 11/21/2023 10:41 AM EDT 02/07/20 23 Active busPIRone HCl 5 MG Oral Tablet (Buspar)Indica tions:Anxiety state Take 1 Tablet by mouth in the morning and 1 Tablet before bedtime. 200 Tablet 11/21/2023 10:41 AM EDT 02/07/20 23 Active Ezetimibe 10 MG Oral Tablet (Zetia)Indicat ions:Dyslipide cristobal, goal LDL below 70 TAKE ONE TABLET BY MOUTH DAILY 100 Tablet 11/21/2023 10:41 AM EDT 02/07/20 23 Active Mirtazapine 15 MG Oral Tablet (Remeron)Indic ations:Anxiety state Take 1 Tablet by mouth at bedtime. 100 Tablet 11/21/2023 10:41 AM EDT 02/08/20 23 Active [...] differently:0.4 mg OralDAILY NOON, Reported on 07/04/2024 Amiodarone HCl 200 MG Oral Tablet (Cordarone) Take 1 Tablet by mouth daily with breakfast. 30 Tablet 07/15/19 25 025 Active Warfarin Sodium 1 MG Oral Tablet (Coumadin) Take tablet by mouth daily as directed by discharged instructions and the anticoagulation clinic. 30 Tablet 1 07/15/19 25 Active Pregabalin 75 MG Oral Capsule (Lyrica) Take 1 Capsule by mouth in the morning and 1 Capsule before bedtime. 60 Capsule 07/15/19 25 Active Furosemide 40 MG Oral Tablet (Lasix) Take 1 Tablet by mouth in the morning. 30 Tablet 07/15/19 25 Active Potassium Chloride Joyce ER 10 MEQ Oral Tablet Extended Release Take 2 Tablets by mouth in the morning. 60 Tablet 07/15/19 25 025 Active Carvedilol 3.125 MG Oral Tablet (Coreg) Take 1 Tablet by mouth 2 times a day with morning and evening meals. 60 Tablet 3 07/15/19 25 Active documented as of this encounter (statuses as of 07/28/2024) Active Problems Problem Noted Date Diagnosed Date Impaired mobility and ADLs 07/17/2024 S/P CABG x 4 07/08/2024 Coronary artery disease invo lving [place] coronary artery of [place] heart with unstable angina pectoris 07/03/2024 Vitamin B 12 deficiency 04/07/2022 HTN, goal below 140/90 12/02/2021 Lumbar degenerative disc disease 11/30/2021 Coronary artery disease with stable angina pecto ris 08/08/2021 Anxiety state 01/13/2020 COPD, group D, by GOLD 2017 classification 07/21 Overview: Per COPD GOLD Classification Right renal mass 03/08/2018 Cognitive changes 01/22/2018 Cerebrovascular disease, arteriosclerotic, post- stroke 01/22/2018 Restless legs syndrome 03/17/2015 Gout 01/25/2015 Pulmonary nodule 06/01/2014 Heart failure, systolic, due to CAD 09/08/2013 Old [place] (myocardial infarction) 09/08/2013 Dyslipidemia, goal LDL below 70 06/15/2009 Overview (06/15/2009): Per Lipid Taxonomy. Esophageal reflux 12/03/2007 BPH without obstruction/lower urinary tract symp toms 08/03/2006 Tobacco use disorder 06/03/2002 documented as of this encounter (statuses as of 07/28/2024) Resolved Problems Problem Noted Date Diagnosed Date Resolved Date Type 2 diabetes mellitus wit h autonomic neuropathy 08/17/2023 09/17/2023 Atherosclerosis of [place] co ronary artery without angina pectoris 08/17/2023 09/17/2023 Prediabetes 02/13/2022 08/23/2023 Overview: Per Prediabetes protocol Food insecurity 07/18/2021 11/17/2021 Overview: Per Fresh [...] Beta-blockers contraindicated 11/23/2008 09/08/2013 Aspirin contraindicated 11/23/2008 03/09/2013 COPD, mild 05/24/2005 12/18/2018 ADVANCE DIRECTIVE INFORMATION 11/09/2004 05/12/2024 Overview (11/09/2004): Brochure given to pt. at this time. Chronic coronary artery disease 08/28/2002 08/08/2021 Mixed dyslipidemia 08/28/2002 9 Overview (06/15/2009): Per Lipid Taxonomy. Other chest pain 08/28/2002 12/03/2007 documented as of this encounter (statuses as of 07/28/2024) Immunizations Name Administration Dates Next Due COVID-19 mRNA, LNP-s, No Pre serve, 2-Dose Series (Moderna) 12/22/2020,11/23/2020 COVID-19, MRNA-LNP, PF, 30 M CG/0.3 mL, 12 YRS AND ABOVE, IM ([employer]-Comirnat[employer]IREX international) 06/16/2024,05/07/2023 COVID-19, mRNA, LNP-s, PF, B ooster, [...] encounter Miscellaneous Notes * Telephone Encounter - Leon Galvan DO - 07/28/2024 11:36 AM EST Will see patient as scheduled * Telephone Encounter - Hermila Britt OSA - 07/28/2024 11:04 AM EST [facility], LMOM regarding Henri Vigil. He will be discharged tomorrow and will need a f/u with PCP. I returned her call and LMOM for her with date and time of appointment with Dr. Galvan for 08/05/24 @ 12:45 arrival for a 1:00 appointment. She is to call back if a sooner appointment is needed. documented in this encounter Plan of Treatment Upcoming Encounters Date Type Department Care Team (Late st Contact Info) Description 07/29/2024 4:00 PM EST Anticoagulation Family Practice 65 [facility] 293 [place] [address] College, Pharmacist [address] [place] [address] 07/30/2024 12:45 PM EST Scheduled Telephone [facility] [place] [address] [place] [address] Coordinator, [facility] [address] [place] [address] 08/05/2024 10:30 AM EST Telemedicine [facility], [facility] [address] [place] [address] [place] [address] Advanced, Virtual Card[facility] Re[facility] [address] [place] [address] [place] [address] 08/05/2024 1:00 PM EST Office Visit Family Practice [address] [place] [address] 293 [place] [address] Leon Galvan, DO [address] [place] [address] 08/20/2024 10:45 AM EST Office Visit Cardiothoracic Surg [facility] [address] [place] [address] Jayden Galvan MD [address] [place] [address] 09/17/2024 8:40 AM EDT Office Visit Family [address] [place] [address] Leon Galvan, DO [address] [place] [address] 09/18/2024 8:00 AM EDT Office Visit Cardiology, [facility] 132 [facility] [place] [address] Alexandra Mackenzie CRNP 132 [facility] [place] [address] 10/10/2024 3:30 PM EDT Imaging Radiology [facility] [address] [place] [address] 10/17/2024 9:00 AM EDT Office Visit Urology, [place] [address] [place] [address] Johnathon Kent PA-C [address] [place] [address] 02/06/2025 9:30 AM EDT [facility] [address] [place] [address] Poncho Robledo DO [address] [place] [address] Health Maintenance Due Date Last Done Comments [...] Additional history exists COVID-19 Vaccine Completed 06/16/2024, , 11/09/2022, Additional history exists Influenza Vaccine (FLU shot) [...] this encounter Medical Devices Implanted Type Area Surface Plate Finisher Device Identifier Shelf Expiration Date Model / Serial / Lot Lead Kit Trial [id number] 50cm - [id number] - [id number] Implanted:Qty: 1 on 05/08/2024 by Maged Monreal DO at OR [facility] Left: Back [employer] : PAIN MGMT 03/18/2026 [id number] 50E0 / [id number] / Lead Kit Trial [id number] 50cm - [id number] - [id number] Implanted:Qty: 1 on 05/08/2024 by Maged Monreal DO at OR [facility] Right: Back [employer] : PAIN MGMT 03/18/2026 [id number] 50E0 / [id number] / Suture Steel 6 B&S19 M654g - [id number] Implanted:Qty: 1 on 07/08/2024 by Jayden Galvan MD at OR [facility] N/A: Sternum JNJ : [employer] 03/08/2029 M654G / / 103BLE Marker Coronary - [id number] Implanted:Qty: 1 on 07/08/2024 by Jayden Galvan MD at OR [facility] N/A: Heart [employer] 05/08/2027 [facility] / / [id number] Marker Coronary - [id number] Implanted:Qty: 1 on 07/08/2024 by Jayden Galvan MD at OR [facility] N/A: Heart [employer] 06/07/2027 [facility] / / [id number] documented as of this encounter Advance Directives * Full Code (Latest Code Status on File) Date Activated Date Inactivated Comments 07/08/2024 12:14 PM 07/15/2024 5:39 PM This order reflects the patients wishes and were consensually agreed upon. Question Answer Comments Discussion of Advance Directives occurred with: Patient Care Teams Transition Of Care Specialist Relationship Specialty Start Date End Date Leon Galvan DO [address] [place] [address] PCP - General Internal Medicine 12/28/23 documented as of this encounter
--- OUTSIDE RECORDS SUMMARY | 2024-08-06 22:33 | External Medical Summary | Summary of Care ---
Author Name Unknown Organization [facility] Address [address] [place] [address] Phone [phone] Care Team Providers Care Slusher Operator Name Role Phone Leon Galvan DO Primary Care Provider [phone] Encounter Details Date Type Department Care Team (Late st Contact Info) Description 2024 Orders Only Lab [facility] [address] [place] [address] Justin Garcia DO [address] [place], [place] [id number] A-fib ([facility])* Allergies Active Allergy Reactions Criticality Noted Date Comments Codeine Other (Please comment) High 09/08/2013 Severe Skin peeling documented as of this encounter (statuses as of 2024) Medications oxygen GASIndications :Chronic coronary artery disease,COPD, mild ([facility]),Heart failure, systolic, due to CAD ([facility]) Use 2 L/min(Oxygen) as directed at bedtime. [...] as of this encounter (statuses as of 2024) Active Problems Problem Noted Date Diagnosed Date Impaired mobility and ADLs 07/17/2024 S/P CABG x 4 07/08/2024 Coronary artery disease invo [place]ving [place] coronary artery of [place] heart with unstable angina pectoris 07/03/2024 Vitamin [...] failure, systolic, due to CAD 09/08/2013 Old MS (myocardial infarction) 09/08/2013 Dyslipidemia, goal LDL below 70 06/15/2009 Overview (06/15/2009): Per Lipid Taxonomy. Esophageal reflux 12/03/2007 BPH without obstruction/lower urinary tract symp toms 08/03/2006 Tobacco use disorder 06/03/2002 documented as of this encounter (statuses as of 2024) Resolved Problems Problem Noted Date Diagnosed Date Resolved Date Type 2 diabetes mellitus wit h autonomic neuropathy 08/17/2023 09/17/2023 Atherosclerosis of [place] co ronary artery without angina pectoris 08/17/2023 [...] as of this encounter (statuses as of 2024) Immunizations Name Administration Dates Next Due COVID-19 [...] Date Smoking Tobacco: Every Day Cigarettes 0.5 59 Started: 1965 Passive Smoke Exposure: Current Smokeless [...] AM EDT documented as of this encounter Plan of Treatment Upcoming Encounters Date Type Department Care Team (Late st Contact Info) Description 07/28/2024 8:10 AM EST Laboratory [facility] [address] [place] [address] Home, [facility] Nursing [address] [place] [phone] 07/29/2024 4:00 PM EST [facility] [address] [phone] College, Pharmacist [address] [place] [id number] 07/30/2024 12:45 PM EST Scheduled Telephone [facility] [place] [address] [place] [address] Coordinator, [facility] [address] [place] [address] 08/05/2024 10:30 AM EST Telemedicine [facility] [address] [place] [address] [place] [address] [facility] [address] [place] [address] [place] [id number] 08/20/2024 10:45 AM EST Office Visit Cardiothoracic Surg [facility] [address] [place] [address] Jayden Galvan MD [address] [place] [address] 09/17/2024 8:40 AM EDT Office Visit Family Practice [address] [place] [address] [address] [place] [address] Leon Galvan, DO [address] [facility] [place] [address] 09/18/2024 8:00 AM EDT Office Visit Cardiology, [facility] [place] [address] Alexandra Mackenzie CRNP [address] [facility] [place] [address] 10/10/2024 3:30 PM EDT Imaging Radiology [facility] [address] [facility] [place] [id number] 10/17/2024 9:00 AM EDT Office Visit Urology, [place] [address] [place] [address] Johnathon Kent PA-C [address] [place], [place] [id number] 02/06/2025 9:30 AM EDT Office Visit Cardiology, [facility] [address] [facility] [place] [address] Poncho Robledo, DO [address] [facility] [place] [address] Scheduled Orders Name Type Priority Associated Diagnoses Orde r Schedule PT INR Lab Routine A-fib (HCC) Expected: 07/28/2024, Expires: Health Maintenance Due Date Last Done Comments [...] this encounter Medical Devices Implanted Type Area [employer] Device Identifier Shelf Expiration Date Model / Serial / Lot Lead Kit Trial [id number] 50cm - [id number] - [id number] Implanted:Qty: 1 on 05/08/2024 by Maged Monreal DO at OR [facility] Left: Back [employer] : PAIN MGMT 03/18/2026 [id number] / [id number] / Lead Kit Trial [id number] 50cm - [id number] - [id number] Implanted:Qty: 1 on 05/08/2024 by Maged Monreal DO at OR [facility] Right: Back [employer] : PAIN MGMT 03/18/2026 [id number] 50E0 / [id number] / Suture Steel 6 B&S19 M654g - [id number] Implanted:Qty: 1 on 07/08/2024 by Jayden Galvan MD at [place] [facility] N/A: Sternum JNJ : [employer] 03/08/2029 [id number] / / [id number] Marker Coronary - [id number] Implanted:Qty: 1 on 07/08/2024 by Jayden Galvan MD at [place] [facility] N/A: Heart [employer] 05/08/2027 AM-SD / / [id number] Marker Coronary - [id number] Implanted:Qty: 1 on 07/08/2024 by Jayden Galvan MD at [place] [facility] N/A: Heart [employer] 06/07/2027 AM-SD / / [id number] documented as of this encounter Visit Diagnoses Diagnosis A-fib (HCC)- Primary Atrial fibrillation documented in this encounter Advance Directives * Full Code (Latest Code Status on File) Date Activated Date Inactivated Comments 07/08/2024 12:14 PM 07/15/2024 5:39 PM This order reflects the patients wishes and were consensually agreed upon. Question Answer Comments Discussion of Advance Directives occurred with: Patient Care Teams Slusher Operator Relationship Specialty Start Date End Date Leon Galvan DO [address] [place] [address] PCP - General Internal Medicine 12/28/23 documented as of this encounter
--- OUTSIDE RECORDS SUMMARY | 2024-08-06 22:33 | External Medical Summary | Summary of Care ---
Author Name Unknown Organization [facility] Address [address] [place] [address] Phone [phone] Care Team Providers Care Parts Technician Name Role Phone Leon Galvan DO Primary Care Provider [phone] Reason for Visit * Reason Onset Date Comments Usp Visit - Discharge 07/28/2024 Encounter Details Date Type Department Care Team (Latest Contact Info) Description 07/28/2024 9:00 AM EST [facility] Visit [facility] [address] [place] [phone] Rena Diaz PA-C [address] [place] [phone] S/P CABG x 4*; Coronary artery disease involving bois forte coronary artery of bois forte heart with unstable angina pectoris (HCC); Heart failure, systolic, due to CAD (HCC); COPD, group D, by GOLD 2017 classification (HCC); [place] (myocardial infarction); Cerebrovascular disease, arteriosclerotic, post-stroke; HTN, goal below 140/90; Dyslipidemia, goal LDL below 70; Vitamin B 12 deficiency; BPH without obstruction/lower urinary tract symptoms; Restless legs syndrome; Degeneration of intervertebral disc of lumbar region with discogenic back pain; Anxiety state; Impaired mobility and ADLs Allergies Active Allergy Reactions Criticality Noted Date Comments Codeine Other (Please comment) High 09/08/2013 Severe Skin peeling documented as of this encounter (statuses as of 07/29/2024) Medications oxygen GASIndications :Chronic coronary artery disease,COPD, mild (HCC),Heart failure, systolic, due to CAD (HCC) Use 2 L/min(Oxygen) as directed at bedtime. 1 Each 10/21/19 Active Pantoprazole Sodium 40 MG Oral Tablet [...] Capsule 3 11/21/2023 10:41 AM EDT 02/07/20 Active Additional Information Patient taking differently:0.5 mg OralDAILY NOON, Reported on 07/04/2024 rOPINIRole HCl 0.5 MG Oral Tablet (Requip)Indica tions:Restless legs syndrome Take 1 Tablet by mouth in the morning and 1 Tablet at noon and 1 Tablet before bedtime. With food. 300 Tablet 11/21/2023 10:41 AM EDT 02/07/20 Active buPROPion HCl ER (SR) 150 MG Oral Tablet Extended Release 12 Hour (Wellbutrin SR)Indications :Tobacco use disorder Take 1 Tablet by mouth in the morning and 1 Tablet before bedtime. 200 Tablet 11/21/2023 10:41 AM EDT 02/07/20 Active busPIRone HCl 5 MG Oral Tablet [...] as of this encounter (statuses as of 07/29/2024) Active Problems Problem Noted Date Diagnosed Date Impaired mobility and ADLs 07/17/2024 S/P CABG x 4 07/08/2024 Coronary artery disease invo lving bois forte coronary artery of bois forte heart with unstable angina pectoris 07/03/2024 Vitamin [...] failure, systolic, due to CAD 09/08/2013 [place] (myocardial infarction) 09/08/2013 Dyslipidemia, goal LDL below 70 06/15/2009 Overview (06/15/2009): Per Lipid Taxonomy. Esophageal reflux 12/03/2007 BPH without obstruction/lower urinary tract symp toms 08/03/2006 Tobacco use disorder 06/03/2002 documented as of this encounter (statuses as of 07/29/2024) Resolved Problems Problem Noted Date Diagnosed Date Resolved Date Type 2 diabetes mellitus wit h autonomic neuropathy 08/17/2023 09/17/2023 Atherosclerosis of bois forte co ronary artery without angina pectoris 08/17/2023 [...] as of this encounter (statuses as of 07/29/2024) Immunizations Name Administration Dates Next Due COVID-19 [...] No 06/18/2023 Does the household have a [facility] source of income? (Household - for ages [...] as of this encounter Progress Notes * Rena Diaz PA-C - 07/28/2024 12:21 PM EST Images from the original note were not included. DISCHARGE NOTE TRANSITION EVENT: Type: Discharge to home Date: July 28 Code Status: Full Code Name: Henri Vigil Date of : 1950 This note pertains to care provided at [facility]. Please see facility medical record for original note. This note is not to be edited or addended in [facility]. Editing or addending needs to occur in the facilities medical record. Discharge Medications: S: Henri Vigil is being discharged from [facility] to home. Admitted to [facility] on 07/15/24 for PT/OT. 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 Chronic coronary artery disease 08/28/2002 Conductive hearing loss Hearing loss, conductive COPD, mild ([facility]) 05/24/2005 COPD, severity to be determined ([facility]) Coronary atherosclerosis of bois forte coronary artery Heart attack ([facility]) Jun 2012 Heart failure, systolic, due to CAD ([facility]) 09/08/2013 HTN, goal below 140/90 12/02/2021 Lumbar degenerative disc disease 11/30/2021 [place] (myocardial infarction) 09/08/2013 Stroke ([facility]) 09/2015 "3 mini strokes" [facility], [facility] Patient Active Problem List Diagnosis Tobacco use disorder BPH without obstruction/lower urinary tract symptoms Esophageal reflux Dyslipidemia, goal LDL below 70 Heart failure, systolic, due to CAD ([facility]) [place] (myocardial infarction) Pulmonary nodule Gout Restless legs syndrome Cognitive changes Cerebrovascular disease, arteriosclerotic, post-stroke Right renal mass COPD, group D, by GOLD 2017 classification ([facility]) Anxiety state Lumbar degenerative disc disease HTN, goal below 140/90 Vitamin B 12 deficiency Coronary artery disease involving bois forte coronary artery of bois forte heart with unstable angina pectoris ([facility]) S/P CABG x 4 Impaired mobility and ADLs Past Surgical History: Procedure Laterality Date CABG, ARTERIAL, SINGLE N/A 07/08/2024 CORONARY ARTERY BYPASS GRAFT USING ARTERY 1 GRAFT performed by Jayden Galvan MD at [facility] CABG, ARTERY-VEIN, TWO N/A 07/08/2024 CORONARY ARTERY BYPASS GRAFT ARTERIAL AND VENOUS 2 GRAFTS performed by Jayden Galvan MD at [facility] COLONOSCOPY, DIAGNOSTIC (RECTUM) 11/25/2021 COLONOSCOPY FLEXIBLE PROXIMAL DIAGNOSTIC performed by Ryann Damon MD at ENDOSCOPY [facility] COLONOSCOPY, DIAGNOSTIC (RECTUM) N/A 10/20/2022 hemorrhoids/colonoscopy/[place] CYSTOSCOPY 11/07/2005 trus measurement EGD, FLEXIBLE, DIAGNOSTIC 09/08/2015 Barretts, Schatzki ring, repeat 1 yr/[facility] EGD, FLEXIBLE, DIAGNOSTIC 10/17/2016 Barretts, repeat 2 yrs/[facility] EGD, FLEXIBLE, DIAGNOSTIC 01/15/2019 Lowe's esophagitis, hiatal hernia, repeat 2 yrs/[facility] EGD, FLEXIBLE, DIAGNOSTIC 07/15/2021 Barretts, repeat 2 yrs / ESOPHAGOGASTRODUODENOSCOPY (EGD), FLEXIBLE, TRANSORAL, DIAGNOSTIC performed by Ryann Damon MD at ENDOSCOPY [facility] EGD, FLEXIBLE, DIAGNOSTIC N/A 10/20/2022 biopsies from esophagus show mild reflux/EGD/[place] ENDO,VIDEO ASSIST HARVEST TEJ N/A 07/08/2024 ENDOSCOPY VIDEO ASSISTED HARVEST VEIN performed by Jayden Galvan MD at OR [facility] EVAL NEUROSTIM PULSE GEN, W/ REPROGRAM 05/08/2024 NEUROSTIMULATOR PULSE GENERATOR/ TRANSMITTER, WITH INTRAOPERATIVE OR SUBSEQUENT PROGRAMMING performed by Maged Monreal DO at OR [facility] IMPLANT EPIDURAL NEUROELECTRODES 05/08/2024 PERCUTANEOUS IMPLANTATION NEUROSTIMULATOR EPIDURAL performed by Maged Monreal DO at OR [facility] IMPLANT EPIDURAL NEUROELECTRODES 05/08/2024 PERCUTANEOUS IMPLANTATION NEUROSTIMULATOR EPIDURAL performed by Maged Monreal DO at OR [facility] INJECT DX/THER SUBSTANCE INTERLAMINAR LUMBAR/SACRAL W IMAGE GUIDE 07/19/2017 INJECTION SPINE LUMBAR OR SACRAL performed by Donavon Ananda Conklin, DO at OR [facility] MISCELLANEOUS ORDER ([facility] ONLY) Right 11/12/2019 RE[place]HEIMER- LATERAL TARSAL STRIP NONE 11/06/2004 heart attack, [place] NONE ? heart catherization, [place] NONE ? back surgery, [place] OTHER LAD stent 10/08/04,Plavix until 10/08/05 PROSTATE, LASER VAPORIZATION 11/22/2005 TULIP SACROILIAC JOINT INJECT W/GUIDANCE 09/03/2017 INJECTION SACROILIAC JOINT performed by [place] Ananda Conklin, DO at OR [facility] SACROILIAC JOINT INJECT W/GUIDANCE 10/25/2017 INJECTION SACROILIAC JOINT performed by Donavon Ananda Conklin, DO at OR [facility] SPINAL FUSION, LUMBAR, COMBINED 2012 Fusion L4? Family History Problem Relation Name Age of Onset Heart Disorder Father [place] Heart Disorder Mother [place] Heart Disorder Brother Heart Disorder Brother Cancer Brother Stroke Brother Hyperlipidemia Brother No Past Hx Daughter No Past Hx Daughter Heart Disorder Brother [place] Heart Disorder Brother [place] No Past Hx Son Depression Sister Asthma Sister COPD Sister Family Status Relation Status Fa at age 56 colon cancer Mo at age 54 mi Bro at age 48 mi Bro at age 57 mi Bro Luis Alive Luis Alive Bro (Not Specified) Bro (Not Specified) Son Alive Sis at age 78 Sis Alive Social History Socioeconomic History Marital status: Spouse name: Not on file Number of children: Not on file Years of education: Not on file Highest education level: Not on file Occupational History Not on file Tobacco Use Smoking status: Every Day Current packs/day: 0.50 Average packs/day: 0.5 packs/day for 59.1 years (29.5 ttl pk-yrs) Types: Cigarettes Start date: 1965 Passive exposure: Current Smokeless tobacco: Never Tobacco comments: 2 cigarettes/day Vaping Use Vaping status: Never Used Substance and Sexual Activity Alcohol use: No Drug use: No Sexual activity: Yes Partners: Female Other Topics Concern Not on file Social History Narrative Not currently working 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 (Adult - for ages 18 years and over): No Does your family have trouble paying for medicine? (Household - for ages 0-17 years): Not on file Food Insecurity: No Food Insecurity (07/09/2024) Food Insecurity Do you need food for this week? (Adult - for ages 18 years and over): No Are you able to get enough food for your family? (Household - for ages 0-17 years): Not on file Does your family need food this week? (Household - for ages 0-17 years): Not on file Do you always have enough food for your family? (Household - for ages 0-17 years): Not on file Transportation Needs: No Transportation Needs (07/09/2024) Transportation Needs Do you have trouble getting a ride to medical visits or work? (Adult - for ages 18 years and over):Not on file Does your family have a hard time getting a ride to doctors visits? (Household - for ages 0-17 years): Not on file Has lack of transportation kept you from medical appointments, meetings, work, or from getting things needed for daily living? Check all that apply. (Adult - for ages 18 years and over): No Do you (or your family) have trouble finding or paying for a ride (transportation)? (Household - for ages 0-17 years): Not on file Social Connections: Socially Integrated (06/18/2023) Social Connections How often do you feel lonely or isolated from those around you? (Adult - for ages 18 years and over): Never Housing Stability: Low Risk (07/09/2024) Housing Stability Do you currently live in a long-term or have no steady place to sleep at night? (Adult - for ages 18 years and over): Not on file Do you think you are at risk of becoming homeless? (Adult - for ages 18 years and over): Not on file Does your family worry about paying for your home or becoming homeless? (Household - for ages 0-17 years): Not on file Are you homeless or worried that you might be in the future? (Adult - for ages 18 years and over): No Are you (or your family) homeless or worried that you might be in the future? (Household - for ages0-17 years): Not on file Review of patient's allergies indicates: Allergen Reactions Codeine Other (Please comment) Severe Skin peeling Review of Systems: As per HPI SNF course of stay: Recently admitted to [facility] due to increased anginal sx's and for planned CABG. Hehad been following with Cardiology and found to have worsening EF 35% on echocardiogram as well as small apical thrombus. Previous nuclear stress test in early 2023 showed large area of apical scar with wall motion abnormalities in the apical anterior apex and apical inferior. Due to worsening sx'sof angina he underwent CABG x4 on June 28. Post op complications with AFib with RVR, requiring IV Amiodarone. He was discharged on p.o. amiodarone daily and also started on Coumadin for anticoagulation related to apical thrombus. He was overall stable and was admitted here for PT/OT on 07/15/24. He has been stable since admission here. Vitals stable. BP 110-140 systolic. No sx's of acute CP orSOB. Incision healing well. Adequate nutrition/fluids: Yes Bowel/Bladder dysfunction: No Assistive Devices: with walker ADL: dependent O: PHYSICALEXAM: I reviewed the most recent facilities vitals. General: alert, no distress, well nourished and well developed Head: Normocephalic, No masses, lesions, tenderness or abnormalities Eye Exam: Conjunctiva are pink and non-injected, sclera clear Ears: External ears normal Nose: no mucosal erythema, no mucosal edema, no purulent discharge Oropharynx: no exudate, no erythema, lips, buccal mucosa, and tongue normal and mucous membranes are moist Neck: supple, no adenopathy Heart: regular rate & rhythm, no murmurs, well healing scar mid sternum Lungs: lungs clear to auscultation Abdomen: abdomen soft, non-tender, normal bowel sounds and no masses or organomegaly Extremities: no edema, no clubbing, no cyanosis Neuro Exam: alert & oriented x 3 with fluent speech, no focal motor/sensory deficits Basic Panel Results: Results for orders placed or performed during the hospital encounter of 07/08/24 BASIC METABOLIC PANEL Result Value Ref Range BUN 31 (H) 6 - 20 mg/dL CREATININE 1.3 (H) 0.6 - 1.2 mg/dL EGFR 59 (L) >=60 mL/min SODIUM 138 135 - 146 mmol/L POTASSIUM 4.4 3.5 - 5.1 mmol/L CHLORIDE 105 98 - 107 mmol/L CO2 21 (L) 22 - 32 mmol/L ANION GAP 12 7 - 15 mmol/L GLUCOSE 96 70 - 120 mg/dL CALCIUM 8.3 (L) 8.4 - 10.2 mg/dL CBC Results: Results for orders placed or performed in visit on 07/18/24 CBC Result Value Ref Range WBC 8.91 4.00 - 10.80 K/uL RBC 3.21 4.50 - 5.25 M/uL HGB 10.2 (L) 14.0 - 16.8 g/dL HCT 32.3 (L) 40.0 - 48.4 % MCV 100.6 82.0 - 99.5 fL MCH 31.8 27.0 - 34.0 pg MCHC 31.6 32.0 - 36.0 g/dL RDW 14.1 11.5 - 15.5 % PLT 319 140 - 400 K/uL MPV 11.2 6.6 - 11.1 fL nRBCs 0 <=0 /100 WBCs Lipid Panel Results: Results for orders placed or performed in visit on 06/17/24 LIPID PANEL WITH DIRECT LDL IF TG IS HIGH Result Value Ref Range Triglycerides 126 <=174 mg/dL Cholesterol 186 <200 mg/dL HDL Cholesterol 36 (L) >39 mg/dL Non-HDL Cholesterol 150 <=159 mg/dL LDL Cholesterol 125 <=129 mg/dL ALT Results: Lab Results Component Value Date/Time ALT 08/28/1996 03:40 PM ALT - [facility] 20 07/04/2024 09:16 AM ALT - [facility] 11 02/15/2024 01:43 PM ALT - [facility] 11 04/27/2023 02:57 PM ALT - [facility] 14 01/13/2020 12:58 PM ALT - [facility] 16 07/11/2019 01:54 PM ALT - [facility] 16 03/18/2019 05:27 PM ALT-[facility] 23 02/18/2018 12:00 AM [facility] 17 02/13/2016 12:00 AM ALT-OUTSIDE LAB 53 09/22/2015 12:00 AM AST Results: Lab Results Component Value Date/Time AST 08/28/1996 03:40 PM AST - [facility] 23 07/04/2024 09:16 AM AST - [facility] 16 02/15/2024 01:43 PM AST - [facility] 17 04/27/2023 02:57 PM AST - [facility] 20 01/13/2020 12:58 PM AST - [facility] 16 07/11/2019 01:54 PM AST - [facility] 18 03/18/2019 05:27 PM A: S/P CABG x 4 (Primary) Coronary artery disease involving bois forte coronary artery of bois forte heart with unstable angina pectoris (HCC) Heart failure, systolic, due to CAD (HCC) COPD, group D, by GOLD 2017 classification (HCC) [place] (myocardial infarction) Cerebrovascular disease, arteriosclerotic, post-stroke HTN, goal below 140/90 Dyslipidemia, goal LDL below 70 Vitamin B 12 deficiency BPH without obstruction/lower urinary tract symptoms Restless legs syndrome Degeneration of intervertebral disc of lumbar region with discogenic back pain Anxiety state Impaired mobility and ADLs P: 1. Discharge to home 2. Home Health was consulted for nursing, PT, and OT. 3. Copy of chart sent to PCP 4. Patient to follow up with PCP within 7 days. 5. I spent 53 minutes on discharge. 7. Custodial Home Treatment Given: d/c to home Associated attestation - Justin Garcia DO - 07/28/2024 8:12 PM EST I have reviewed the advanced practitioner's documentation on the date of service referenced in note, and I agree with, and take responsibility for the plan of care. documented in this encounter Plan of Treatment Upcoming Encounters Date Type Department Care Team (Late st Contact Info) Description 07/29/2024 4:00 PM EST Anticoagulation Family Practice [address] [place] [address], [place] [phone] College, Pharmacist [address] [place] [address], [place] [address] 07/30/2024 12:45 PM EST Scheduled Telephone [facility], [facility] [address] [place] [address] Coordinator, [facility] [address] [facility], [place] [address] 08/01/2024 9:40 AM EST Pharmacy Family Practice [address] [place] [address], [place] [phone] College, Pharmacist [address], [place] [address] 08/01/2024 10:00 AM EST Office Visit Family Practice [address] [place] [address], [place] [phone] [facility] [address] [facility] [address] 08/05/2024 10:30 AM EST Telemedicine [facility], [facility] [address] [place] [address] [place] [address] [facility] [address] [place] [address] [place] [address] 08/05/2024 1:00 PM EST Office Visit Family Practice [address] [place] [address] [address] [place] [address] Leon Galvan, DO [address] [place] [address] 08/20/2024 10:45 AM EST Office Visit [facility] [place] [address] [place] [address] Jayden Galvan MD [address] [place] [address] 09/17/2024 8:40 AM EDT Office Visit [address] [place] [address] Leon Galvan, DO [address] [place] [address] 09/18/2024 8:00 AM EDT Office Visit Cardiology, [facility] [address] [facility] [place] [address] Alexandra Mackenzie CRNP [address] [facility] [place] [address] 10/10/2024 3:30 PM EDT Imaging Radiology [facility] [place] [phone] 10/17/2024 9:00 AM EDT Office Visit Urology, [place] [address] [place] [address] Johnathon Kent PA-C [address] [place] [address] 02/06/2025 9:30 AM EDT Office Visit Cardiology, [facility] [address] [place] [address] Poncho Robledo, [address] [place] [address] Health Maintenance Due Date Last Done Comments [...] this encounter Medical Devices Implanted Type Area 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 Shelf Expiration Date Model / Serial / Lot Lead Kit Trial [id number] 50cm - [id number] - [id number] Implanted:Qty: 1 on 05/08/2024 by Maged Monreal DO at OR [facility] Left: Back [employer] : PAIN MGMT 03/18/2026 [id number] / [id number] / Lead Kit Trial [id number] 50cm - [id number] - [id number] Implanted:Qty: 1 on 05/08/2024 by Maged Monreal DO at OR [facility] Right: Back [employer] : PAIN MGMT 03/18/2026 [id number] / [id number] / Suture Steel 6 B&S19 M654g - [id number] Implanted:Qty: 1 on 07/08/2024 by Jayden Galvan MD at OR [facility] N/A: Sternum JNJ : [employer] 03/08/2029 [id number] / / [id number] Marker Coronary - [id number] Implanted:Qty: 1 on 07/08/2024 by Jayden Galvan MD at OR [facility] N/A: Heart [employer] 05/08/2027 AM-SD / / [id number] Marker Coronary - [id number] Implanted:Qty: 1 on 07/08/2024 by Jayden Galvan MD at OR [facility] N/A: Heart [employer] 06/07/2027 AM-SD / / [id number] documented as of this encounter Visit Diagnoses Diagnosis 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 Coronary artery disease involving bois forte coronary artery of bois forte heart with unstable angina pectoris (HCC) Heart failure, systolic, due to CAD (HCC) Unspecified systolic heart failure COPD, group D, by GOLD 2017 classification (HCC) [place] (myocardial infarction) Old myocardial infarction Cerebrovascular disease, arteriosclerotic, post-stroke Cerebral atherosclerosis HTN, goal below 140/90 Unspecified essential hypertension Dyslipidemia, goal LDL below 70 Other and unspecified hyperlipidemia Vitamin B 12 deficiency Other B-complex deficiencies BPH without obstruction/lower urinary tract symptoms Hypertrophy of prostate without urinary obstruction and other lower urinary tract symptoms (LUTS) Restless legs syndrome Restless legs syndrome (RLS) Degeneration of intervertebral disc of lumbar region with discogenic back pain Anxiety state Anxiety state, unspecified Impaired mobility and ADLs Mechanical problems with limbs documented in this encounter Advance Directives * Full Code (Latest Code Status on File) Date Activated Date Inactivated Comments 07/08/2024 12:14 PM 07/15/2024 5:39 PM This order reflects the patients wishes and were consensually agreed upon. Question Answer Comments Discussion of Advance Directives occurred with: Patient Care Teams Parts Technician Relationship Specialty Start Date End Date Leon Galvan DO [address] [place] [address] PCP - General Internal Medicine 12/28/23 documented as of this encounter
--- OUTSIDE RECORDS SUMMARY | 2024-08-06 22:33 | External Medical Summary | Summary of Care ---
Author Name Unknown Organization [facility] Address [address] [place] [address] Phone [phone] Care Team Providers Care Farmer Cash Grain Name Role Phone Leon Galvan DO Primary Care Provider [phone] Reason for Visit * Reason Onset Date Comments [facility]: Maintenance 07/25/2024 Encounter Details Date Type Department Care Team (Late st Contact Info) Description 07/25/2024 4:00 PM EST Scheduled Telephone [facility], [facility] [address] [place] [address] Alma Armando, [address] [place] [address] Allergies Active Allergy Reactions Criticality Noted Date Comments Codeine Other (Please comment) High 09/08/2013 Severe Skin peeling documented as of this encounter (statuses as of 07/25/2024) Medications oxygen GASIndications :Chronic coronary artery disease,COPD, [...] as of this encounter (statuses as of 07/25/2024) Active Problems Problem Noted Date Diagnosed Date Impaired mobility and ADLs 07/17/2024 S/P CABG x 4 07/08/2024 Coronary artery disease invo lving jamul coronary artery of jamul heart with unstable angina pectoris 07/03/2024 Vitamin [...] failure, systolic, due to CAD 09/08/2013 Old NM (myocardial infarction) 09/08/2013 Dyslipidemia, goal LDL below 70 06/15/2009 Overview (06/15/2009): Per Lipid Taxonomy. Esophageal reflux 12/03/2007 BPH without obstruction/lower urinary tract symp toms 08/03/2006 Tobacco use disorder 06/03/2002 documented as of this encounter (statuses as of 07/25/2024) Resolved Problems Problem Noted Date Diagnosed Date Resolved Date Type 2 diabetes mellitus wit h autonomic neuropathy 08/17/2023 09/17/2023 Atherosclerosis of jamul co ronary artery without angina pectoris 08/17/2023 [...] as of this encounter (statuses as of 07/25/2024) Immunizations Name Administration Dates Next Due COVID-19 mRNA, LNP-s, No Pre serve, 2-Dose Series (Moderna) 12/22/2020,11/23/2020 COVID-19, MRNA-LNP, PF, 30 M CG/0.3 mL, 12 YRS AND ABOVE, IM ([place] ([employer]) 06/16/2024,05/07/2023 COVID-19, mRNA, LNP-s, PF, B ooster, [...] encounter Miscellaneous Notes * Telephone Encounter - Alma Armando CM - 07/25/2024 1:42 PM EST Call placed to [facility]. Confirmed pt is still at facility. Transferred to [facility] for [facility] requesting a call back .Alma Armando Booster Pump Operator [facility] Maria [email or web address] documented in this encounter Plan of Treatment Upcoming Encounters Date Type Department Care Team (Late st Contact Info) Description 07/29/2024 4:00 PM EST Anticoagulation Family Practice 65 [facility] [address] [place] [address] College, Pharmacist [address] [place] [address] 08/05/2024 10:30 AM EST Telemedicine [facility], [facility] [address] [place] [address] [place] [address] Advanced, [facility] [address] [place] [address] [place] [address] 08/20/2024 10:45 AM EST Office Visit Cardiothoracic Surg [facility], [address] [id number] Jayden Galvan MD [address] [place] [address] 09/17/2024 8:40 AM EDT Office Visit Family Practice [address] [place] [address] 293 [facility] [place] [address] Leon Galvan, DO 293 [facility] [place] [address] 09/18/2024 8:00 AM EDT Office Visit Cardiology, [facility] 132 [facility] [place] [address] Alexandra Mackenzie CRNP [address] [place] [address] 10/10/2024 3:30 PM EDT Imaging Radiology [facility] [place] [phone] 10/17/2024 9:00 AM EDT Office Visit Urology, [place] [address] [place] [address] Johnathon Kent PA-C [address] [place] [address] 02/06/2025 9:30 AM EDT Office Visit Cardiology, [facility] 132 [facility] [place] [address] Poncho Robledo, DO [address] [place] [place] [address] Health Maintenance Due Date Last Done Comments [...] this encounter Medical Devices Implanted Type Area B2B Outside Sales Representative Device Identifier Shelf Expiration Date Model / Serial / Lot Lead Kit Trial [id number] 50cm - [id number] - [id number] Implanted:Qty: 1 on 05/08/2024 by Maged Monreal DO at OR [facility] Left: Back [employer] : PAIN MGMT 03/18/2026 [id number] 50E0 / [id number] / Lead Kit Trial [id number] 50cm - [id number] - [id number] Implanted:Qty: 1 on 05/08/2024 by Maged Monreal DO at OR [facility] Right: Back [employer] : PAIN MGMT 03/18/2026 [id number] 50E0 / [id number] / Suture Steel 6 B&S19 M654g - [id number] Implanted:Qty: 1 on 07/08/2024 by Jayden Galvan MD at OR [facility] N/A: Sternum JNJ : [employer] 03/08/2029 M654G / / 103BLE Marker Coronary - [id number] Implanted:Qty: 1 on 07/08/2024 by Jayden Galvan MD at OR [facility] N/A: Heart [employer] 05/08/2027 AM-SD / / [id number] Marker Coronary - [id number] Implanted:Qty: 1 on 07/08/2024 by Jayden Galvan MD at OR [facility] N/A: Heart [employer] 06/07/2027 AM-SD / / [id number] documented as of this encounter Advance Directives * Full Code (Latest Code Status on File) Date Activated Date Inactivated Comments 07/08/2024 12:14 PM 07/15/2024 5:39 PM This order reflects the patients wishes and were consensually agreed upon. Question Answer Comments Discussion of Advance Directives occurred with: Patient Care Teams Farmer Cash Grain Relationship Specialty Start Date End Date Leon Galvan DO [address] [facility] [place] [address] PCP - General Internal Medicine 12/28/23 documented as of this encounter
--- OUTSIDE RECORDS SUMMARY | 2024-08-06 22:33 | External Medical Summary | Summary of Care ---
Author Name Unknown Organization [facility] Address [address] [place] [address] Phone [phone] Care Team Providers Care Product Ambassador Name Role Phone Leon Galvan DO Primary Care Provider [phone] Reason for Visit * Reason Onset Date Comments Long Term Visit - Discharge 07/28/2024 Encounter Details Date Type Department Care Team (Latest Contact Info) Description 07/28/2024 9:00 AM EST Long Term Visit [facility] [address] [place] [phone] Rena Diaz PA-C [address] [place] [address] S/P CABG x 4*; Coronary artery disease involving [place] coronary artery of tanacross heart with unstable angina pectoris (HCC); Heart failure, systolic, due to CAD (HCC); COPD, group D, by GOLD 2017 classification (HCC); Old [place] (myocardial infarction); Cerebrovascular disease, arteriosclerotic, post-stroke; HTN, [...] 4 07/08/2024 Coronary artery disease invo lving [place] coronary artery of tanacross heart with unstable angina pectoris 07/03/2024 Vitamin [...] failure, systolic, due to CAD 09/08/2013 Old [place] (myocardial infarction) 09/08/2013 Dyslipidemia, goal LDL below 70 06/15/2009 Overview (06/15/2009): Per Lipid Taxonomy. Esophageal reflux 12/03/2007 BPH without obstruction/lower urinary tract symp toms 08/03/2006 Tobacco use disorder 06/03/2002 documented as of this encounter (statuses as of 07/28/2024) Resolved Problems Problem Noted Date Diagnosed Date Resolved Date Type 2 diabetes mellitus wit h autonomic neuropathy 08/17/2023 09/17/2023 Atherosclerosis of [place] co ronary artery without angina pectoris 08/17/2023 [...] No 06/18/2023 Does the household have a presbyterian hospitallar source of income? (Household - for [...] 4:00 PM EST Anticoagulation Family Practice [address] [address] College, Pharmacist [address] [place] [address] 07/30/2024 12:45 PM EST Scheduled Telephone [facility] [place] [address] [place] [address] Coordinator, [facility] [address] [place] [address] 08/05/2024 10:30 AM EST Telemedicine Cardiac Rehab [facility], Virtual [address] [place] [address] [place] [address] [facility], [facility] [address] [place] [address] [place] [address] 08/05/2024 1:00 PM EST Office Visit Family [address] [place] [address] Leon Galvan, DO [address] [place] [address] 08/20/2024 10:45 AM EST Office Visit [facility]acic Surg [facility] [place] [address] [place] [address] Jayden Galvan MD [address] [place] [address] 09/17/2024 8:40 AM EDT Office Visit [address] [place] [address] Leon Galvan, DO [address] [place] [address] 09/18/2024 8:00 AM EDT Office Visit Cardiology, [facility] [address] Alexandra Mackenzie CRNP 132 [facility] [place] [address] 10/10/2024 3:30 PM EDT Imaging Radiology [facility] 132 [facility] [place] [phone] 10/17/2024 9:00 AM EDT Office Visit Urology, [place] [address] [place] [address] Johnathon Kent PA-C [address] [place] [address] 02/06/2025 9:30 AM EDT Office Visit Cardiology, [facility] [address] [place] [address] Poncho Robledo, [address] [place] [address] Health Maintenance Due Date Last Done Comments Cologuard 1995 Sigmoidoscopy 1995 Fecal Occult Blood Test 12/20/2008 12/21/2007 *ADVANCE DIRECTIVE NOT ON FILE 2019 DISCUSS TOBACCO CESSATION (REFER TO SMARTSET #3291) 06/18/2024 06/18/2023, 01/24/2017 Adult Wellness Visit 02/17/2025 02/18/2024, 10/31/2022, 08/17/2021 Depression Screening 02/17/2025 02/18/2024, 01/02/20 24 O2 ASSESSMENT COMPLETED IN PAST YEAR FOR COPD 07/08/2025 07/08/2024 GFR 07/15/2025 07/15/2024, 0 12/2024, 07/13/2024, Additional history exists Albumin/Creatinine Ratio [...] this encounter Medical Devices Implanted Type Area Air Brake Adjuster Device Identifier Shelf Expiration Date Model / Serial / Lot Lead Kit Trial [id number] 50cm - [id number] - [id number] Implanted:Qty: 1 on 05/08/2024 by Maged Monreal DO at OR [facility] Left: Back [employer] : PAIN MGMT 03/18/2026 [id number] 50E0 / [id number] / Lead Kit Trial [id number] 50cm - [id number] - [id number] Implanted:Qty: 1 on 05/08/2024 by Maged Monreal DO at OR [facility] Right: Back [employer] : PAIN MGMT 03/18/2026 [id number] 50E0 / [id number] / Suture Steel 6 B&S19 M654g - [id number] Implanted:Qty: 1 on 07/08/2024 by Jayden Galvan MD at OR [facility] N/A: Sternum JNJ : [employer] 03/08/2029 M654G / / 103BLE Marker Coronary - [id number] Implanted:Qty: 1 on 07/08/2024 by Jayden Galvan MD at OR [facility] N/A: Heart [employer] 05/08/2027 AM-SD / / [id number] Marker Coronary - [id number] Implanted:Qty: 1 on 07/08/2024 by Jayden Galvan MD at OR [facility] N/A: Heart [employer] 06/07/2027 AM-SD / / [id number] documented as of this encounter Visit Diagnoses Diagnosis 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 Coronary artery disease involving tanacross coronary artery of tanacross heart with unstable angina pectoris (HCC) Heart failure, systolic, due to CAD (HCC) Unspecified systolic heart failure COPD, group D, by GOLD 2017 classification (HCC) Old [place] (myocardial infarction) Old myocardial infarction Cerebrovascular disease, [...] Advance Directives occurred with: Patient Care Teams Product Ambassador Relationship Specialty Start Date End Date Leon Galvan DO [address] [place] [address] PCP - General Internal Medicine 12/28/23 documented as of this encounter
--- OUTSIDE RECORDS SUMMARY | 2024-08-06 22:33 | External Medical Summary | Summary of Care ---
Author Name Unknown Organization [facility] Address [address] [place] [address] Phone [phone] Care Team Providers Care Special Needs Nanny Name Role Phone Leon Galvan DO Primary Care Provider [phone] Encounter Details Date Type Department Care Team (Late st Contact Info) Description 07/28/2024 Population Health External Data Unspecified Department Allergies Active Allergy Reactions Criticality Noted Date [...] 4 07/08/2024 Coronary artery disease invo lving [place] coronary artery of [place] heart with unstable angina pectoris 07/03/2024 Vitamin [...] failure, systolic, due to CAD 09/08/2013 Old [place] (myocardial infarction) 09/08/2013 Dyslipidemia, goal LDL below 70 06/15/2009 Overview (06/15/2009): Per Lipid Taxonomy. Esophageal reflux 12/03/2007 BPH without obstruction/lower urinary tract symp toms 08/03/2006 Tobacco use disorder 06/03/2002 documented as of this encounter (statuses as of 07/28/2024) Resolved Problems Problem Noted Date Diagnosed Date Resolved Date Type 2 diabetes mellitus wit h autonomic neuropathy 08/17/2023 09/17/2023 Atherosclerosis of [place] co ronary artery without angina pectoris 08/17/2023 [...] 4:00 PM EST Anticoagulation Family Practice 65 [facility] 293 [place] [address] College, Pharmacist [address] [address] 07/30/2024 12:45 PM EST Scheduled Telephone [facility], [place] [facility] [address] [place] [address] Coordinator, [facility] [address] [place] [address] 08/05/2024 10:30 AM EST Telemedicine [facility], Virtual [address] [place] [address] [place] [address] Advanced, [facility] [address] [place] [address] [place] [address] 08/05/2024 1:00 PM EST Office Visit Family Practice [address] [place] [address] Leon Galvan, [address] [place] [address] 08/20/2024 10:45 AM EST Office Visit Cardiothoracic Surg [facility] [address] [place] [address] Jayden Galvan MD [address] [place] [address] 09/17/2024 8:40 AM EDT Office Visit Family Practice [address] [place] [address] [place] [address] Leon Galvan, 293 [facility] [place] [address] 09/18/2024 8:00 AM EDT Office Visit Cardiology, [facility] 132 [facility] [place] [address] Alexandra Mackenzie CRNP 132 [facility] [place] [address] 10/10/2024 3:30 PM EDT Imaging Radiology [facility] 132 [facility] [place] [phone] 10/17/2024 9:00 AM EDT Office Visit Urology, [place] [address] [place] [address] Johnathon Kent PA-C [address] [place] [address] 02/06/2025 9:30 AM EDT Office Visit Cardiology, [facility] 132 [facility] [place] [address] Poncho Robledo, 132 [facility] [place] [address] Health Maintenance Due Date Last Done Comments [...] this encounter Medical Devices Implanted Type Area Emc Storage Architect Device Identifier Shelf Expiration Date Model / Serial / Lot Lead Kit Trial [id number] 50cm - [id number] - [id number] Implanted:Qty: 1 on 05/08/2024 by Maged Monreal, at OR [facility] Left: Back [employer] : PAIN MGMT 03/18/2026 [id number] 50E0 / [id number] / Lead Kit Trial [id number] 50cm - [id number] - [id number] Implanted:Qty: 1 on 05/08/2024 by Maged Monreal DO at OR [facility] Right: Back [employer] : PAIN MGMT 03/18/2026 [id number] 50E0 / [id number] / Suture Steel 6 B&S19 M654g - [id number] Implanted:Qty: 1 on 07/08/2024 by Jayden Galvan MD at OR [facility] N/A: Sternum JNJ : [employer] 03/08/2029 M654G / / 103BLE Marker Coronary - [id number] Implanted:Qty: 1 on 07/08/2024 by Jayden Galvan MD at OR [facility] N/A: Heart [employer] 05/08/2027 AM-SD / / [id number] Marker Coronary - [id number] Implanted:Qty: 1 on 07/08/2024 by Jayden Galvan MD at OR [facility] N/A: Heart [employer] 06/07/2027 AM-SD / / [id number] documented as of this encounter Advance Directives * Full Code (Latest Code Status on File) Date Activated Date Inactivated Comments 07/08/2024 12:14 PM 07/15/2024 5:39 PM This order reflects the patients wishes and were consensually agreed upon. Question Answer Comments Discussion of Advance Directives occurred with: Patient Care Teams Special Needs Nanny Relationship Specialty Start Date End Date Leon Galvan DO [address] [place] [address] PCP - General Internal Medicine 12/28/23 documented as of this encounter
--- OUTSIDE RECORDS SUMMARY | 2024-08-06 22:33 | External Medical Summary | Summary of Care ---
Author Name Unknown Organization [facility] Address [address] [place] [address] Phone [phone] Care Team Providers Care Control Operator Name Role Phone Leon Galvan DO Primary Care Provider [phone] Reason for Visit * Reason Onset Date Comments Penitentiary Visit - Discharge 07/28/2024 Encounter Details Date Type Department Care Team (Latest Contact Info) Description 07/28/2024 9:00 AM EST Penitentiary Visit [facility] [address] [phone] Rena Diaz PA-C [address] [phone] S/P CABG x 4*; Coronary artery disease involving huslia coronary artery of huslia heart with unstable angina pectoris (HCC); Heart [...] Capsule 3 4 10:41 AM EDT 02/07/20 Active Additional Information Patient taking differently:0.5 mg OralDAILY NOON, Reported on 07/04/2024 rOPINIRole HCl 0.5 MG Oral Tablet (Requip)Indica tions:Restless legs syndrome Take 1 Tablet by mouth in the morning and 1 Tablet at noon and 1 Tablet before bedtime. With food. 300 Tablet 3 4 10:41 AM EDT 02/07/20 Active buPROPion HCl [...] with breakfast. 30 Tablet 07/15/19 25 025 Discontin ued(Refil l) Warfarin Sodium 1 MG Oral Tablet (Coumadin) Take tablet by mouth daily as directed by discharged instructions and the anticoagulation clinic. 30 Tablet 1 07/15/19 25 025 Discontin ued(Refil l) Potassium Chloride Joyce ER 10 MEQ Oral Tablet Extended Release Take 2 Tablets by mouth in the morning. 60 Tablet 07/15/19 25 025 Discontin ued(Refil l) Carvedilol 3.125 MG Oral Tablet (Coreg) Take 1 Tablet by mouth 2 times a day with morning and evening meals. 60 Tablet 3 07/15/19 25 025 Discontin ued(Refil l) documented as of this encounter (statuses as of 07/29/2024) Active Problems Problem Noted Date Diagnosed Date Impaired mobility and ADLs 07/17/2024 S/P CABG x 4 07/08/2024 Coronary artery disease invo lving huslia coronary artery of huslia heart with unstable angina pectoris 07/03/2024 Vitamin [...] h autonomic neuropathy 08/17/2023 09/17/2023 Atherosclerosis of huslia co ronary artery without angina pectoris 08/17/2023 [...] This note pertains to care provided at [facility]. Please see facility medical record for original note. This note is not to be edited or addended in [employer]. Editing or addending needs to occur in the facilities medical record. Discharge Medications: S: Henri Vigil is being discharged from Rehab and [facility] to [place]. Admitted to Rehab and [facility] on 07/15/24 for PT/OT. 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 Chronic coronary artery disease 08/28/2002 Conductive hearing loss Hearing loss, conductive COPD, mild ([facility]) 05/24/2005 COPD, severity to be determined ([facility]) Coronary atherosclerosis of huslia coronary artery Heart attack ([facility]) Jun 2012 Heart failure, systolic, due to CAD ([facility]) 09/08/2013 HTN, goal below 140/90 12/02/2021 Lumbar degenerative disc disease 11/30/2021 Old [place] (myocardial infarction) 09/08/2013 Stroke ([facility]) 09/2015 "3 mini strokes" [facility], rehab at [facility], [facility]1983 Patient Active Problem List Diagnosis Tobacco use disorder BPH without obstruction/lower urinary tract symptoms Esophageal reflux Dyslipidemia, goal LDL below 70 Heart failure, systolic, due to CAD ([facility]) Old [place] (myocardial infarction) Pulmonary nodule Gout Restless legs syndrome Cognitive changes Cerebrovascular disease, arteriosclerotic, post-stroke Right renal mass COPD, group D, by GOLD 2017 classification ([facility]) Anxiety state Lumbar degenerative disc disease HTN, goal below 140/90 Vitamin B 12 deficiency Coronary artery disease involving huslia coronary artery of huslia heart with unstable angina pectoris ([facility]) S/P CABG x 4 Impaired mobility and ADLs Past Surgical History: Procedure Laterality Date CABG, ARTERIAL, SINGLE N/A 07/08/2024 CORONARY ARTERY BYPASS GRAFT USING ARTERY 1 GRAFT performed by Jayden Galvan MD at [facility] CABG, ARTERY-VEIN, TWO N/A 07/08/2024 CORONARY ARTERY BYPASS GRAFT ARTERIAL AND VENOUS 2 GRAFTS performed by Jayden Galvan MD at OR [facility] COLONOSCOPY, DIAGNOSTIC (RECTUM) 11/25/2021 COLONOSCOPY FLEXIBLE PROXIMAL DIAGNOSTIC performed by Ryann Damon MD at ENDOSCOPY [facility] COLONOSCOPY, DIAGNOSTIC (RECTUM) N/A 10/20/2022 hemorrhoids/colonoscopy/[place] CYSTOSCOPY 11/07/2005 trus measurement EGD, FLEXIBLE, DIAGNOSTIC 09/08/2015 Barretts, Schatzki ring, repeat 1 yr/[facility] EGD, FLEXIBLE, DIAGNOSTIC 10/17/2016 Barretts, repeat 2 yrs/[facility] EGD, FLEXIBLE, DIAGNOSTIC 01/15/2019 Lowe's esophagitis, hiatal hernia, repeat 2 yrs/[facility] EGD, FLEXIBLE, DIAGNOSTIC 07/15/2021 Barretts, repeat 2 yrs / ESOPHAGOGASTRODUODENOSCOPY (EGD), FLEXIBLE, TRANSORAL, DIAGNOSTIC performed by Ryann Damon MD at ENDOSCOPY [facility] EGD, FLEXIBLE, DIAGNOSTIC N/A 10/20/2022 biopsies from esophagus show mild reflux/EGD/[place] ENDO,VIDEO ASSIST HARVEST TEJ N/A 07/08/2024 ENDOSCOPY VIDEO ASSISTED HARVEST VEIN performed by Jayden Galvan MD at OR [facility] EVAL NEUROSTIM PULSE GEN, W/ REPROGRAM 05/08/2024 NEUROSTIMULATOR PULSE GENERATOR/ TRANSMITTER, WITH INTRAOPERATIVE OR SUBSEQUENT PROGRAMMING performed by Maged Monreal DO at OR [facility] IMPLANT EPIDURAL NEUROELECTRODES 05/08/2024 PERCUTANEOUS IMPLANTATION NEUROSTIMULATOR EPIDURAL performed by Maged Monreal DO at OR [facility] IMPLANT EPIDURAL NEUROELECTRODES 05/08/2024 PERCUTANEOUS IMPLANTATION NEUROSTIMULATOR EPIDURAL performed by Maged Monreal DO at OR [facility] INJECT DX/THER SUBSTANCE INTERLAMINAR LUMBAR/SACRAL W IMAGE GUIDE 07/19/2017 INJECTION SPINE LUMBAR OR SACRAL performed by Donavon Conklin, DO at OR [facility] MISCELLANEOUS ORDER ([facility] ONLY) Right 11/12/2019 REINHEIMER- LATERAL TARSAL STRIP NONE 11/06/2004 heart attack, [place] NONE ? heart catherization, [place] NONE ? back surgery, [place] OTHER LAD stent 10/08/04,Plavix until 10/08/05 PROSTATE, LASER VAPORIZATION 11/22/2005 TULIP SACROILIAC JOINT INJECT W/GUIDANCE 09/03/2017 INJECTION SACROILIAC JOINT performed by Donavon Conklin, DO at OR [facility] SACROILIAC JOINT INJECT W/GUIDANCE 10/25/2017 INJECTION SACROILIAC JOINT performed by Donavon Andersons, DO at OR [facility] SPINAL FUSION, LUMBAR, COMBINED 2012 Fusion L4? Family History Problem Relation Name Age of Onset Heart Disorder Father [place] Heart Disorder Mother [place] Heart Disorder Brother Heart Disorder Brother Cancer Brother Stroke Brother Hyperlipidemia Brother No Past Hx Daughter No Past Hx Daughter Heart Disorder Brother [place] Heart Disorder Brother [place] No Past Hx Son Depression Sister Asthma [...] Stability Do you currently live in a senior living or have no steady place to sleep [...] SNF course of stay: Recently admitted to [facility] due to increased anginal sx's [...] x 4 (Primary) Coronary artery disease involving huslia coronary artery of huslia heart with unstable angina pectoris (HCC) Heart failure, systolic, due to CAD ([facility]) COPD, group D, by GOLD 2017 classification ([facility]) Old [place] (myocardial infarction) Cerebrovascular disease, arteriosclerotic, post-stroke HTN, [...] I spent 53 minutes on discharge. 7. Senior Living Home Treatment Given: d/c to home Associated [...] PM EST Scheduled Telephone [facility] [place] [address] [place] [address] Coordinator, [facility] [address] [place] [address] 08/01/2024 9:40 AM EST Pharmacy Family Practice [address] [place] [address], [place] [address] College, Pharmacist [address] [place] [address], [place] [address] 08/01/2024 10:00 AM EST Office Visit Family Practice [address] [place] [address], [place] [address] Leon Galvan DO [address] [place] [address] 08/05/2024 10:30 AM EST Telemedicine [facility], [facility] [address] [place] [address] [place] [address] [facility], [facility] [address] [place] [address] [place] [address] 08/05/2024 1:00 PM EST Office Visit Family Practice [address] [facility] [address] [place] [address] Leon Galvan, DO [address] [place] [address] 08/20/2024 10:45 AM EST Office [facility] [place] [address] [place] [address] Jayden Galvan MD [address] [place] [address] 09/17/2024 8:40 AM EDT Office Visit Family Practice [address] [facility] [address] [place] [address] Leon Galvan, DO [address] [place] [address] 09/18/2024 8:00 AM EDT Office Visit Cardiology, [facility] [address] [facility] [place] [address] Alexandra Mackenzie CRNP [address] [place] [address] 10/10/2024 3:30 PM EDT Imaging Radiology [facility] [address] [place] [address] 10/17/2024 9:00 AM EDT Office Visit Urology, [place] [address] [place] [address] Johnathon Kent PA-C [address] [place] [address] 02/06/2025 9:30 AM EDT Office Visit Cardiology, [facility] [address] [place] [address] Poncho Robledo, DO [address] [place] [address] Health Maintenance Due Date Last Done Comments Cologuard 1995 Sigmoidoscopy 1995 Fecal Occult Blood Test 12/20/2008 12/21/2007 *ADVANCE DIRECTIVE NOT ON FILE 2019 DISCUSS TOBACCO CESSATION (REFER TO SMARTSET #2015) 06/18/2024 06/18/2023, 01/24/2017 Adult Wellness Visit 02/17/2025 [...] this encounter Medical Devices Implanted Type Area Theatre Arts Professor Device Identifier Shelf Expiration Date Model / Serial / Lot Lead Kit Trial [id number] 50cm - [id number] - [id number] Implanted:Qty: 1 on 05/08/2024 by Maged Monreal DO at OR [facility] Left: Back [employer] : PAIN MGMT 03/18/2026 [id number] 50E0 / [id number] / Lead Kit Trial [id number] 50cm - [id number] - [id number] Implanted:Qty: 1 on 05/08/2024 by Maged Monreal DO at OR [facility] Right: Back [employer] : PAIN MGMT 03/18/2026 [id number] 50E0 / [id number] / Suture Steel 6 B&S19 M654g - [id number] Implanted:Qty: 1 on 07/08/2024 by Jayden Galvan MD at OR [facility] N/A: Sternum JNJ : [employer] 03/08/2029 M654G / / 103BLE Marker Coronary - [id number] Implanted:Qty: 1 on 07/08/2024 by Jayden Galvan MD at OR [facility] N/A: Heart Tubett[employer] 05/08/2027 AM-SD / / [id number] Marker Coronary - [id number] Implanted:Qty: 1 on 07/08/2024 by Jayden Galvan MD at OR [facility] N/A: Heart SafeTec Compliance SystemsSEE [employer] 06/07/2027 [facility] / / [id number] documented as of this encounter Visit Diagnoses Diagnosis 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 Coronary artery disease involving huslia coronary artery of huslia heart with unstable angina pectoris (HCC) Heart [...] Advance Directives occurred with: Patient Care Teams Control Operator Relationship Specialty Start Date End Date Leon Galvan DO [address] [place] [address] PCP - General Internal Medicine 12/28/23 documented as of this encounter
--- OUTSIDE RECORDS SUMMARY | 2024-08-06 22:33 | External Medical Summary ---
Author Name Unknown Address Unknown Organization : Laboratory Report Ordering Provider Test Date Status DIANA JOYQUINCY 07/28/2024 06:46:00 Final Warfarin Therapy
INR: 2 .0-3.0 conventional anticoagulation
INR: 2.5- 3.5 high intensity anticoagulation Observation Date Value Abnormality Reference (Units ) Status PT 07/28/2024 06:46:00 26.6 Above high normal 11 .6-15.2 (seconds) Final INR 07/28/2024 06:46:00 2.4 Above high normal 0. 8-1.2 Final Performing Location
--- OUTSIDE RECORDS SUMMARY | 2024-08-06 22:33 | External Medical Summary | Summary of Care ---
Author Name Unknown Organization [facility] Address [address] [place] [address] Phone [phone] Care Team Providers Care Mapping Technician Name Role Phone Leon Galvan DO Primary Care Provider [phone] Reason for Visit * Reason Onset Date Comments Appointment 07/28/2024 Encounter Details Date Type Department Care Team (Late st Contact Info) Description 07/28/2024 Telephone Family Practice [address] [place] [address] [place] [address] Leon Galvan DO [address] [place] [address] Appointment Allergies Active Allergy Reactions Criticality Noted Date [...] by mouth in the morning. 100 Tablet 11/21/2023 10:41 AM EDT 08/17/19 24 Active [...] 4 07/08/2024 Coronary artery disease invo lving tonto apache coronary artery of t[place] apache heart with unstable angina pectoris 07/03/2024 Vitamin [...] failure, systolic, due to CAD 09/08/2013 Old [place] (myocardial infarction) 09/08/2013 Dyslipidemia, goal LDL below 70 06/15/2009 Overview (06/15/2009): Per Lipid Taxonomy. Esophageal reflux 12/03/2007 BPH without obstruction/lower urinary tract symp toms 08/03/2006 Tobacco use disorder 06/03/2002 documented as of this encounter (statuses as of 07/28/2024) Resolved Problems Problem Noted Date Diagnosed Date Resolved Date Type 2 diabetes mellitus wit h autonomic neuropathy 08/17/2023 09/17/2023 Atherosclerosis of tonto apache co ronary artery without angina pectoris 08/17/2023 [...] CG/0.3 mL, 12 YRS AND ABOVE, IM ([facility] 06/16/2024,05/07/2023 COVID-19, mRNA, LNP-s, PF, B [...] Telephone Encounter - Debbie Rodrigues RN - 07/28/2024 11:47 AM EST See other encounter-Dr Galvan OK with appt as scheduled. * Telephone Encounter - Debbie Rodrigues RN - 07/28/2024 11:44 AM EST [facility]he has a hospital f/u appt scheduledwith Dr Galvan on 08/05/24 unless sooner appt is needed. Message to Dr Galvan. documented in this encounter Plan of Treatment Upcoming Encounters Date Type Department Care Team (Late st Contact Info) Description 07/29/2024 4:00 PM EST Anticoagulation Family Practice [address], [place] [address] [facility] [place] [address] College, Pharmacist [address] [place] [address] 07/30/2024 12:45 PM EST Scheduled Telephone [facility] [place] [address] [place] [address] Coordinator, [facility] [address] [place] [address] 08/05/2024 10:30 AM EST Telemedicine [facility] [address] [place] [address] [place] [address] [facility] [address] [place] [address] [place] [address] 08/05/2024 1:00 PM EST Office Visit Family Practice [address] [place] [address] [address] [place] [phone] Leon Galvan, DO [address] [place] [address] 08/20/2024 10:45 AM EST Office Visit [facility] [place] [address] [place] [address] Jayden Galvan MD [address] [place] [address] 09/17/2024 8:40 AM EDT Office Visit Family Practice [address] [place] [address] 293 [facility] [place] [phone] Leon Galvan, DO [address] [place] [address] 09/18/2024 8:00 AM EDT Office Visit Cardiology, [facility] [address] [facility] [place] [address] Alexandra Mackenzie CRNP [address] [facility] [place] [address] 10/10/2024 3:30 PM EDT Imaging Radiology [facility] [address] [facility] [place] [phone] 10/17/2024 9:00 AM EDT Office Visit Urology, [place] [address] [place] [address] Johnathon Kent [facility]-C [address] [facility] [address] 02/06/2025 9:30 AM EDT Office Visit Cardiology, [facility] [address] [place] [address] Poncho Robledo DO [address] [place] [address] Health Maintenance Due Date Last Done Comments [...] this encounter Medical Devices Implanted Type Area K [employer] Professional Device Identifier Shelf Expiration Date Model / Serial / Lot Lead Kit Trial Lriajddv11 50cm - [id number] - [id number] Implanted:Qty: 1 on 05/08/2024 by Maged Monreal DO at OR [facility] Left: Back [employer] : PAIN MGMT 03/18/2026 [id number] 50E0 / [id number] / Lead Kit Trial Waxicamv49 50cm - [id number] - [id number] Implanted:Qty: 1 on 05/08/2024 by Maged Monreal DO at OR [facility] Right: Back [employer] : PAIN MGMT 03/18/2026 [id number] 50E0 / [id number] / Suture Steel 6 B&S19 M654g - [id number] Implanted:Qty: 1 on 07/08/2024 by Jayden Galvan MD at OR [facility] N/A: Sternum JNJ : [employer] 03/08/2029 M654G / / 103BLE Marker Coronary - [id number] Implanted:Qty: 1 on 07/08/2024 by Jayden Galvan MD at OR [facility] N/A: Heart [employer] 05/08/2027 [facility] / / [id number] Marker Coronary - [id number] Implanted:Qty: 1 on 07/08/2024 by Jayden Galvan MD at OR [facility] N/A: Heart [employer] 06/07/2027 [facility] / / [id number] documented as of this encounter Advance Directives * Full Code (Latest Code Status on File) Date Activated Date Inactivated Comments 07/08/2024 12:14 PM 07/15/2024 5:39 PM This order reflects the patients wishes and were consensually agreed upon. Question Answer Comments Discussion of Advance Directives occurred with: Patient Care Teams Mapping Technician Relationship Specialty Start Date End Date Leon Galvan DO [address] [place] [address] PCP - General Internal Medicine 12/28/23 documented as of this encounter
--- OUTSIDE RECORDS SUMMARY | 2024-08-06 22:34 | External Medical Summary ---
Author Name Unknown Address Unknown Organization K01:LABORATORY [facility] - [address] [place] [address] Laboratory Report Ordering Provider Test Date Status RYLEE JOY 07/18/2024 06:53:00 Final Warfarin Therapy
INR: 2 .0-3.0 conventional anticoagulation
INR: 2.5- 3.5 high intensity anticoagulation Observation Date Value Abnormality Reference (Units ) Status PT 07/18/2024 06:53:00 30.0 Above high normal 11 .6-15.2 (seconds) Final INR 07/18/2024 06:53:00 2.8 Above high normal 0. 8-1.2 Final Performing Location LABORATORY [facility] - [address] [place] [address]
--- OUTSIDE RECORDS SUMMARY | 2024-08-06 22:34 | External Medical Summary | Summary of Care ---
Author Name Unknown Organization [facility] Address [address] [place] [address] Phone [phone] Care Team Providers Care Health Services Information Specialist Name Role Phone Leon Galvan DO Primary Care Provider [phone] Encounter Details Date Type Department Care Team (Late st Contact Info) Description 07/20/2024 Orders Only Lab Mobile Phlebotomy [facility] [address] [place] [address] Justin Garcia DO [address] [place] [address] Atrial fibrillation (HCC)* Allergies Active Allergy Reactions Criticality Noted Date Comments Codeine Other (Please comment) High 09/08/2013 Severe Skin peeling documented as of this encounter (statuses as of 07/20/2024) Medications oxygen GASIndications :Chronic coronary artery disease,COPD, [...] as of this encounter (statuses as of 07/20/2024) Active Problems Problem Noted Date Diagnosed Date Impaired mobility and ADLs 07/17/2024 S/P CABG x 4 07/08/2024 Coronary artery disease invo lving apache coronary artery of apache heart with unstable angina pectoris 07/03/2024 Vitamin B 12 deficiency 04/07/2022 HTN, goal below 140/90 12/02/2021 Lumbar degenerative disc disease 11/30/2021 Coronary artery disease with stable angina pecto ris 08/08/2021 Anxiety state 01/13/2020 COPD, group D, by GOLD 2017 classification 07/21 Overview: Per COPD GOLD Classification Right renal mass 03/08/2018 Prediabetes 02/19/2018 Overview: Per Prediabetes protocol #1 - Cognitive changes 01/22/2018 Cerebrovascular disease, arteriosclerotic, post- stroke 01/22/2018 Restless legs syndrome 03/17/2015 Gout 01/25/2015 Pulmonary nodule 06/01/2014 Heart failure, systolic, due to CAD 09/08/2013 Old [place] (myocardial infarction) 09/08/2013 Dyslipidemia, goal LDL below 70 06/15/2009 Overview (06/15/2009): Per Lipid Taxonomy. Esophageal reflux 12/03/2007 BPH without obstruction/lower urinary tract symp toms 08/03/2006 Tobacco use disorder 06/03/2002 documented as of this encounter (statuses as of 07/20/2024) Resolved Problems Problem Noted Date Diagnosed Date Resolved Date Type 2 diabetes mellitus wit h autonomic neuropathy 08/17/2023 09/17/2023 Atherosclerosis of apache co ronary artery without angina pectoris 08/17/2023 09/17/2023 Prediabetes 02/13/2022 08/23/2023 Overview: Per Prediabetes protocol Food insecurity 07/18/2021 11/17/2021 Overview: Per [facility] Protocol Chronic stable angina 07/11/20192021 COPD, group B, by GOLD 2017 classification 12/16/2018 07/24/2019 Overview: Per COPD GOLD Classification Benign hypertensive heart di sease with diastolic [...] as of this encounter (statuses as of 07/20/2024) Immunizations Name Administration Dates Next Due COVID-19 [...] Care Team (Late st Contact Info) Description 07/21/2024 8:10 AM EST Laboratory Lab Mobile Phlebotomy [facility] [address] [place] [address] Home, [facility] Nursing [address] [place] [address] 07/21/2024 3:50 PM EST Anticoagulation Family Practice [address] [place] [address] [address] [place] [address] College, Pharmacist [address] [place] [address] 07/22/2024 10:45 AM EST Scheduled Telephone [facility], [facility] [address] [place] [id number] Alma Armando, [address] [place] [address] 08/20/2024 10:45 AM EST Office Visit Cardiothoracic Surg [facility] [address] [place] [address] Jayden Galvan MD [address] [place] [address] 09/17/2024 8:40 AM EDT Office Visit Family Practice [address] [place] [address] [address] [place] [address] Leon Galvan, [address] [place] [address] 09/18/2024 8:00 AM EDT Office Visit Cardiology, [facility] [address] [place] [address] Alexandra Mackenzie CRNP [address] [place] [address] 10/10/2024 3:30 PM EDT Imaging Radiology [facility] [address] [place] [phone] 10/17/2024 9:00 AM EDT Office Visit Urology, [place] [address] [place] [address] Johnathon Kent PA-C [address] [place] [address] 02/06/2025 9:30 AM EDT Office Visit Cardiology, [facility] [address] [place] [address] Poncho Robledo, [address] [place] [address] Scheduled Orders Name Type Priority Associated Diagnoses Orde r Schedule PT INR Lab Routine Atrial fibrillation (HCC) Expected: 07/21/2024, Expires: 07/20/2025 Health Maintenance Due Date Last Done Comments [...] 07/15/2024, 01/0 12/2024, 07/13/2024, Additional history exists HbA1c 07/18/2025 07/18/2024, 06/09, 06/16/2024, Additional history exists Albumin/Creatinine Ratio 08/17/2026 024, [...] this encounter Medical Devices Implanted Type Area Electrical Prospecting Operator Device Identifier Shelf Expiration Date Model / Serial / Lot Lead Kit Trial [id number] 50cm - [id number] - [id number] Implanted:Qty: 1 on 05/08/2024 by Maged Monreal DO at OR [facility] Left: Back [employer] : PAIN MGMT 03/18/2026 [id number] 50E0 / [id number] / Lead Kit Trial [id number] 50cm - [id number] - [id number] Implanted:Qty: 1 on 05/08/2024 by Maged Monreal DO at OR [facility] Right: Back [employer] : PAIN MGMT 03/18/2026 [id number] 50E0 / [id number] / Suture Steel 6 B&S19 M654g - [id number] Implanted:Qty: 1 on 07/08/2024 by Jayden Galvan MD at OR [facility] N/A: Sternum JNJ : [employer] 03/08/2029 M654G / / 103BLE Marker Coronary - [id number] Implanted:Qty: 1 on 07/08/2024 by Jayden Galvan MD at OR [facility] N/A: Heart [employer] 05/08/2027 [facility] / / [id number] Marker Coronary - [id number] Implanted:Qty: 1 on 07/08/2024 by Jayden Galvan MD at OR [facility] N/A: Heart [employer] 06/07/2027 [facility] / / [id number] documented as of this encounter Visit Diagnoses Diagnosis Atrial fibrillation (HCC)- Primary Atrial fibrillation documented in this encounter Advance Directives * Full Code (Latest Code Status on File) Date Activated Date Inactivated Comments 07/08/2024 12:14 PM 07/15/2024 5:39 PM This order reflects the patients wishes and were consensually agreed upon. Question Answer Comments Discussion of Advance Directives occurred with: Patient Care Teams Health Services Information Specialist Relationship Specialty Start Date End Date Leon Galvan DO [address] [place] [address] PCP - General Internal Medicine 12/28/23 documented as of this encounter
--- OUTSIDE RECORDS SUMMARY | 2024-08-06 22:34 | External Medical Summary | Summary of Care ---
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 (HCC)*; S/P CABG x 4 Allergies Active Allergy Reactions Criticality Noted Date Comments Codeine Other (Please comment) High 09/08/2013 Severe Skin peeling documented as of this encounter (statuses as of 07/21/2024) Medications oxygen GASIndications :Chronic coronary artery disease,COPD, [...] as of this encounter (statuses as of 07/21/2024) Active Problems Problem Noted Date Diagnosed Date Impaired mobility and ADLs 07/17/2024 S/P CABG x 4 07/08/2024 Coronary artery disease invo lving redding coronary artery of redding heart with unstable angina pectoris 07/03/2024 Vitamin [...] failure, systolic, due to CAD 09/08/2013 Old [place] (myocardial infarction) 09/08/2013 Dyslipidemia, goal LDL below 70 06/15/2009 Overview (06/15/2009): Per Lipid Taxonomy. Esophageal reflux 12/03/2007 BPH without obstruction/lower urinary tract symp toms 08/03/2006 Tobacco use disorder 06/03/2002 documented as of this encounter (statuses as of 07/21/2024) Resolved Problems Problem Noted Date Diagnosed Date Resolved Date Type 2 diabetes mellitus wit h autonomic neuropathy 08/17/2023 09/17/2023 Atherosclerosis of redding co ronary artery without angina pectoris 08/17/2023 [...] as of this encounter (statuses as of 07/21/2024) Immunizations Name Administration Dates Next Due COVID-19 mRNA, LNP-s, No Pre serve, 2-Dose Series (Moderna) 12/22/2020,11/23/2020 COVID-19, MRNA-LNP, PF, 30 M CG/0.3 mL, 12 YRS AND ABOVE, IM (Talento al Aula-ComirnatCorkCRM) 06/16/2024,05/07/2023 COVID-19, mRNA, LNP-s, PF, B ooster, [...] this encounter Progress Notes * Patsy Hansen [facility] - 07/21/2024 1:19 PM EST Patient currently admitted to [facility]. Will follow up in 1 week for status. Patsy Saldana, Pharm D, BCACP Clinical Pharmacist [address] [place] [address] - Medication Therapy [facility] 07/21/2024, 1:21 PM Ph. [phone]. documented in this encounter Plan of Treatment Upcoming Encounters Date Type Department Care Team (Late st Contact Info) Description 07/22/2024 10:45 AM EST Scheduled Telephone [facility], [facility] [address] [place] [address] lAma Armando, [address] [place] [address] 07/29/2024 4:00 PM EST Anticoagulation Family Practice 65 [facility] 293 [facility], [place] [phone] College, Pharmacist [address] [place] [address], [place] [address] 08/05/2024 10:30 AM EST Telemedicine Cardiac Rehab [facility] [address] [place] [address] [place] [address] Advanced, [facility] [address] [place] [address] [place] [address] 08/20/2024 10:45 AM EST Office Visit [facility]othoracic Surg [facility] [place] [address] [place] [address] Jayden Galvan MD [address] [place] [address] 09/17/2024 8:40 AM EDT Office Visit Family Practice [address] [place] [address] 293 [place] [address] Leon Galvan, DO [address] [place] [address] 09/18/2024 8:00 AM EDT Office Visit Cardiology, [facility] 132 [facility] [place] [address] Alexandra Mackenzie CRNP 132 [facility] [place] [address] 10/10/2024 3:30 PM EDT Imaging Radiology [facility] [address] [facility] [place] [address] 10/17/2024 9:00 AM EDT Office Visit Urology, [place] [address] [place] [address] Johnathon Kent PA-C [address] [place] [address] 02/06/2025 9:30 AM EDT Office Visit Cardiology, [facility] [address] [facility] [place] [address] Poncho Robledo, DO [address] [place] [address] Health Maintenance Due Date Last Done Comments Cologuard 1995 Sigmoidoscopy 1995 Fecal Occult Blood Test 12/20/2008 12/21/2007 *ADVANCE DIRECTIVE NOT ON FILE 2019 DISCUSS TOBACCO CESSATION (REFER TO SMARTSET #1617) 06/18/2024 06/18/2023, 01/24/2017 Adult Wellness Visit 02/17/2025 02/18/2024, 10/31/2022, 08/17/2021 Depression Screening 02/17/2025 02/18/2024, 01/02/20 24 O2 ASSESSMENT COMPLETED IN PAST YEAR FOR COPD 07/08/2025 07/08/2024 GFR 07/15/2025 07/15/2024, 12/2024, 07/13/2024, Additional history exists HbA1c 07/18/2025 [...] this encounter Medical Devices Implanted Type Area Physician/Ophthalmologist Device Identifier Shelf Expiration Date Model / Serial / Lot Lead Kit Trial [id number] 50cm - [id number] - [id number] Implanted:Qty: 1 on 05/08/2024 by Maged Monreal DO at OR [facility] Left: Back [employer] : PAIN MGMT 03/18/2026 [id number] 50E0 / [id number] / Lead Kit Trial [id number] 50cm - [id number] - [id number] Implanted:Qty: 1 on 05/08/2024 by Maged Monreal DO at OR [facility] Right: Back [employer] : PAIN MGMT 03/18/2026 [id number] 50E0 / [id number] / Suture Steel 6 B&S19 M654g - [id number] Implanted:Qty: 1 on 07/08/2024 by Jayden Galvan MD at OR [facility] N/A: Sternum JNJ : [employer] 03/08/2029 M654G / / 103BLE Marker Coronary - [id number] Implanted:Qty: 1 on 07/08/2024 by Jayden Galvan MD at OR [facility] N/A: Heart [employer] 05/08/2027 AM-[place] / / [id number] Marker Coronary - [id number] Implanted:Qty: 1 on 07/08/2024 by Jayden Galvan MD at OR [facility] N/A: Heart [employer] 06/07/2027 [facility] / / [id number] documented as of this encounter Visit Diagnoses Diagnosis 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 Question Answer Comments Discussion of Advance Directives occurred with: Patient Care Teams Livestock Farmer Relationship Specialty Start Date End Date Leon Galvan DO [address] [place] [address] PCP - General Internal Medicine 12/28/23 documented as of this encounter
--- OUTSIDE RECORDS SUMMARY | 2024-08-06 22:34 | External Medical Summary | Summary of Care ---
Author Name Unknown Organization [facility] Address [address] [place] [address] Phone [phone] Care Team Providers Care Industrial Pipefitter Journeyman Name Role Phone Leon Galvan DO Primary Care Provider [phone] Encounter Details Date Type Department Care Team (Late st Contact Info) Description 07/16/2024 External Data Patient Risk Medial Allergies Active Allergy Reactions Criticality Noted Date Comments Codeine Other (Please comment) High 09/08/2013 Severe Skin peeling documented as of this encounter (statuses as of 07/16/2024) Medications oxygen GASIndications :Chronic coronary artery disease,COPD, [...] meals. 60 Tablet 3 07/15/19 25 Active Hospital, Clinic, or Other Facility Administered Medication Ordered Dose Route Frequency Start Date End Date Status vitamin b-12 (Cyanocobalamin) inj 1,000 mcgIndications:Vitamin B 12 deficiency 1000 mcg IM [id number] 08/17/2023 07/18/2024 Active documented as of this encounter (statuses as of 07/16/2024) Active Problems Problem Noted Date Diagnosed Date S/P CABG x 4 07/08/2024 Coronary artery disease invo lving wiyot coronary artery of wiyot heart with unstable angina pectoris 07/03/2024 Vitamin [...] failure, systolic, due to CAD 09/08/2013 Old [place] (myocardial infarction) 09/08/2013 Dyslipidemia, goal LDL below 70 06/15/2009 Overview (06/15/2009): Per Lipid Taxonomy. Esophageal reflux 12/03/2007 BPH without obstruction/lower urinary tract symp toms 08/03/2006 Tobacco use disorder 06/03/2002 documented as of this encounter (statuses as of 07/16/2024) Resolved Problems Problem Noted Date Diagnosed Date Resolved Date Type 2 diabetes mellitus wit h autonomic neuropathy 08/17/2023 09/17/2023 Atherosclerosis of wiyot co ronary artery without angina pectoris 08/17/2023 [...] as of this encounter (statuses as of 07/16/2024) Immunizations Name Administration Dates Next Due COVID-19 [...] 3:50 PM EST Anticoagulation Family Practice 65 [facility] [address] [place] [address] College, Pharmacist [address] [place] [address] [address] [place] [address] 07/22/2024 10:45 AM EST Scheduled Telephone [facility], [facility] [address] [facility] [place] [address] [facility] [address] [place] [address] 08/20/2024 10:45 AM EST Office Visit Cardiothoracic Surg [facility] [address] [place] [address] Jayden Galvan MD [address] [place] [address] 09/17/2024 8:40 AM EDT Office Visit Family Practice 65 [facility] 293 [place] [address] Leon Galvan DO 293 [facility] [place] [address] 09/18/2024 8:00 AM EDT Office Visit Cardiology, [facility] 132 [facility] [place] [address] Alexandra Mackenzie CRNP [address] [place] [address] 10/10/2024 3:30 PM EDT Imaging Radiology [facility] [address] [place] [address] 10/17/2024 9:00 AM EDT Office Visit Urology, [place] [address] [place] [address] Johnathon Kent PA-C [address] [place] [address] 02/06/2025 9:30 AM EDT Office Visit Cardiology, [facility] [address] [place] [address] Poncho Robledo DO [address] [place] [address] Health Maintenance Due Date Last Done Comments Cologuard 1995 Sigmoidoscopy 1995 Fecal Occult Blood Test 12/20/2008 12/21/2007 *ADVANCE DIRECTIVE NOT ON FILE 2019 DISCUSS TOBACCO CESSATION (REFER TO SMARTSET #3291) 06/18/2024 06/18/2023, 01/24/2017 Adult Wellness Visit 02/17/2025 02/18/2024, 10/31/2022, 08/17/2021 Depression Screening 02/17/2025 02/18/2024, 01/02/20 24 HbA1c 07/04/2025 07/04/2024, 03/2024, 02/15/2024, Additional history exists O2 ASSESSMENT COMPLETED IN PAST YEAR FOR [...] this encounter Medical Devices Implanted Type Area Orchestra Teacher Device Identifier Shelf Expiration Date Model / Serial / Lot Lead Kit Trial [id number] 50cm - [id number] - [id number] Implanted:Qty: 1 on 05/08/2024 by Maged Monreal, DO at OR [facility] Left: Back [email or web address] : PAIN MGMT 03/18/2026 [id number] 50E0 / [id number] / Lead Kit Trial [id number] 50cm - [id number] - [id number] Implanted:Qty: 1 on 05/08/2024 by Maged Monreal, DO at OR [facility] Right: Back [employer] : PAIN MGMT 03/18/2026 [id number] 50E0 / [id number] / Suture Steel 6 B&S19 M654g - [id number] Implanted:Qty: 1 on 07/08/2024 by Jayden Galvan MD at [place] [facility] N/A: Sternum JNJ : [employer] 03/08/2029 M654G / / 103BLE Marker Coronary - [id number] Implanted:Qty: 1 on 07/08/2024 by Jayden Galvan MD at OR [facility] N/A: Heart [employer] 05/08/2027 [facility] / / [id number] Marker Coronary - [id number] Implanted:Qty: 1 on 07/08/2024 by Jayden Galvan MD at OR [facility] N/A: Heart [employer] 06/07/2027 [facility] / / [id number] documented as of this encounter Advance Directives * Full Code (Latest Code Status on File) Date Activated Date Inactivated Comments 07/08/2024 12:14 PM 07/15/2024 5:39 PM This order reflects the patients wishes and were consensually agreed upon. Question Answer Comments Discussion of Advance Directives occurred with: Patient Care Teams Industrial Pipefitter Journeyman Relationship Specialty Start Date End Date Leon Galvan DO [address] [place] [address] PCP - General Internal Medicine 12/28/23 documented as of this encounter
--- OUTSIDE RECORDS SUMMARY | 2024-08-06 22:34 | External Medical Summary | Summary of Care ---
Author Name Unknown Organization [facility] Address [address] [place] [address] Phone [phone] Care Team Providers Care Aircraft Machinist Name Role Phone Leon Galvan DO Primary Care Provider [phone] Encounter Details Date Type Department Care Team (Late st Contact Info) Description 07/17/2024 Orders Only Lab Mobile Phlebotomy [facility] [address] [place] [address] Justin Garcia DO [address] [place] [address] CAD (coronary artery disease)*; Peripheral neuropathy Allergies Active Allergy Reactions Criticality Noted Date Comments Codeine Other (Please comment) High 09/08/2013 Severe Skin peeling documented as of this encounter (statuses as of 07/17/2024) Medications oxygen GASIndications :Chronic coronary artery disease,COPD, [...] mcgIndications:Vitamin B 12 deficiency 1000 mcg IM [id number] 08/17/2023 07/18/2024 Active documented as of this encounter (statuses as of 07/17/2024) Active Problems Problem Noted Date Diagnosed Date Impaired mobility and ADLs 07/17/2024 S/P CABG x 4 07/08/2024 Coronary artery disease invo lving [place] coronary artery of [place] heart with unstable angina pectoris 07/03/2024 Vitamin [...] as of this encounter (statuses as of 07/17/2024) Resolved Problems Problem Noted Date Diagnosed Date Resolved Date Type 2 diabetes mellitus wit h autonomic neuropathy 08/17/2023 09/17/2023 Atherosclerosis of [place] co ronary artery without angina pectoris 08/17/2023 [...] as of this encounter (statuses as of 07/17/2024) Immunizations Name Administration Dates Next Due COVID-19 [...] Care Team (Late st Contact Info) Description 07/18/2024 8:00 AM EST Laboratory Lab Mobile Phlebotomy [facility] [address], [place] [id number] Home, [facility] Mobile [facility] Nursing [address] [place] [address] 07/21/2024 3:50 PM EST Anticoagulation Family Practice 65 [facility] [address] [place] [address] [employer], Pharmacist [address] [address] 07/22/2024 10:45 AM EST Scheduled Telephone [facility] [place], [facility] [address] [facility] [place] [address] Alma Armando, [address] [place] [address] 08/20/2024 10:45 AM EST Office Visit Cardiothoracic Surg [facility] [address] [place] [address] Jayden Galvan MD [address] [place] [address] 09/17/2024 8:40 AM EDT Office Visit Family [address] 293 [place] [address] Leon Galvan, DO 293 [facility] [place] [address] 09/18/2024 8:00 AM EDT Office Visit Cardiology, [facility] 132 [facility] [place] [address] Alexandra Mackenzie CRNP 132 [facility] [place] [address] 10/10/2024 3:30 PM EDT Imaging Radiology [facility] 132 [facility] [place] [address] 10/17/2024 9:00 AM EDT Office Visit Urology, [place] [address] [place] [address] Johnathon Kent PA-C [address] [place] [address] 02/06/2025 9:30 AM EDT Office Visit Cardiology, [facility] 132 [facility] [place] [address] Poncho Robledo, DO 132 [facility] [place] [address] Scheduled Orders Name Type Priority Associated Diagnoses Orde r Schedule CBC Lab Routine CAD (coronary artery disease) Peripheral neuropathy Expected: 07/18/2024, Expires: 07/17/2025 COMPREHENSIVE METABOLIC PANEL Lab Routine CAD (coronary artery disease) Peripheral neuropathy Expected: 07/18/2024, Expires: 07/17/2025 HEMOGLOBIN A1C Lab Routine CAD (coronary artery disease) Peripheral neuropathy Expected: 07/18/2024, Expires: 07/17/2025 MAGNESIUM Lab Routine CAD (coronary artery disease) Peripheral neuropathy Expected: 07/18/2024, Expires: 07/17/2025 PT INR Lab Routine CAD (coronary artery disease) Peripheral neuropathy Expected: 07/18/2024, Expires: 07/17/2025 TSH Lab Routine CAD (coronary artery disease) Peripheral neuropathy Expected: 07/18/2024, Expires: 07/17/2025 25-HYDROXY VITAMIN D Lab Routine CAD (coronary artery disease) Peripheral neuropathy Expected: 07/18/2024, Expires: 07/17/2025 Health Maintenance Due Date Last Done Comments [...] this encounter Medical Devices Implanted Type Area Home Health Care Physician Device Identifier Shelf Expiration Date Model / Serial / Lot Lead Kit Trial [id number] 50cm - [id number] - [id number] Implanted:Qty: 1 on 05/08/2024 by Maged Monreal DO at OR [facility] Left: Back [employer] : PAIN MGMT 03/18/2026 [id number] 50E0 / [id number] / Lead Kit Trial [id number] 50cm - [id number] - [id number] Implanted:Qty: 1 on 05/08/2024 by Maged Monreal DO at OR [facility] Right: Back [employer] : PAIN MGMT 03/18/2026 [id number] 50E0 / [id number] / Suture Steel 6 B&S19 M654g - [id number] Implanted:Qty: 1 on 07/08/2024 by Jayden Galvan MD at OR [facility] N/A: Sternum JNJ : [employer] 03/08/2029 M654G / / 103BLE Marker Coronary - [id number] Implanted:Qty: 1 on 07/08/2024 by Jayden Galvan MD at OR [facility] N/A: Heart [employer] 05/08/2027 AM-SD / / [id number] Marker Coronary - [id number] Implanted:Qty: 1 on 07/08/2024 by Jayden Galvan MD at OR [facility] N/A: Heart [employer] 06/07/2027 [facility] / / [id number] documented as of this encounter Visit Diagnoses Diagnosis CAD (coronary artery disease)- Primary Coronary atherosclerosis of unspecified type of vessel, [place] or graft Peripheral neuropathy Unspecified hereditary and idiopathic peripheral neuropathy documented in this encounter Advance Directives * Full Code (Latest Code Status on File) Date Activated Date Inactivated Comments 07/08/2024 12:14 PM 07/15/2024 5:39 PM This order reflects the patients wishes and were consensually agreed upon. Question Answer Comments Discussion of Advance Directives occurred with: Patient Care Teams Aircraft Machinist Relationship Specialty Start Date End Date Leon Galvan DO 293 [facility] [place] [address] PCP - General Internal Medicine 12/28/23 documented as of this encounter
--- OUTSIDE RECORDS SUMMARY | 2024-08-06 22:34 | External Medical Summary ---
Author Name Unknown Address Unknown Organization [id number]:LABORATORY [facility] - [address] [place] [address] Laboratory Report Ordering Provider Test Date Status RYLEE JOY 07/18/2024 06:53:00 Final Observation Date Value Abnormality Reference (Units ) Status WBC, Total 07/18/2024 06:53:00 8.91 4.00-10.80 (K/uL) Final RBC 07/18/2024 06:53:00 3.21 4.50-5.25 (M/uL) Final Hemoglobin 07/18/2024 06:53:00 10.2 Below low normal 14.0-16.8 (g/dL) Final HCT 07/18/2024 06:53:00 32.3 Below low normal 40.0-48.4 (%) Final MCV 07/18/2024 06:53:00 100.6 82.0-99.5 (fL) Final MCH 07/18/2024 06:53:00 31.8 27.0-34.0 (pg) Final MCHC 07/18/2024 06:53:00 31.6 32.0-36.0 (g/dL) Final RDW 07/18/2024 06:53:00 14.1 11.5-15.5 (%) Final Platelets 07/18/2024 06:53:00 319 140-400 (K/uL) Final MPV 07/18/2024 06:53:00 11.2 6.6-11.1 (fL) Final Nucleated erythrocytes/100 leukocytes [Ratio] in Blood by Automated count 07/18/2024 06:53:00 0 <=0 (/100 WBCs) Final Performing Location LABORATORY [facility] - [address] [place] [address]
--- OUTSIDE RECORDS SUMMARY | 2024-08-06 22:34 | External Medical Summary | Summary of Care ---
Author Name Unknown Organization [facility] Address [address] [place] [address] Phone [phone] Care Team Providers Care In Mold Coater Name Role Phone Leon Galvan DO Primary Care Provider [phone] Reason for Referral * Precert (Within 10 days (routine)) - Authorized Specialty Diagnoses / Procedures Referred By Katie berman Referred To Contact Radiology Diagnoses Nicotine dependence, cigarettes, uncomplicated Procedures CT CHEST LOW DOSE SCAN LUNG CANCER SCREEN 1 YEAR FOLLOW UP Thoracic [place] [address] [place] [address] Phone: tel: fax: Referral ID Status Reason Start Date Expiration Date V isits Requested Visits Authorized [id number] Authorized 07/30/2024 999 999 Reason for Visit * Reason Onset Date Comments Lung Cancer Screening Outreach 07/23/2024 Encounter Details Date Type Department Care Team (Late st Contact Info) Description 07/23/2024 Telephone [address] [phone] Cecy Mark, RN Lung Cancer Screening Outreach Allergies Active Allergy Reactions Criticality Noted Date Comments Codeine Other (Please comment) High 09/08/2013 Severe Skin peeling documented as of this encounter (statuses as of 07/23/2024) Medications oxygen GASIndications :Chronic coronary artery disease,COPD, [...] by mouth in the morning. 100 Capsule 11/21/2023 10:41 AM EDT 02/07/20 Active Additional [...] by mouth in the morning. 100 Tablet 03/31/2024 6:45 AM EDT 08/17/19 24 Active [...] as of this encounter (statuses as of 07/23/2024) Active Problems Problem Noted Date Diagnosed Date Impaired mobility and ADLs 07/17/2024 S/P CABG x 4 07/08/2024 Coronary artery disease invo lving [place] coronary artery of [place] heart with unstable angina pectoris 07/03/2024 Vitamin [...] failure, systolic, due to CAD 09/08/2013 [place] (myocardial infarction) 09/08/2013 Dyslipidemia, goal LDL below 70 06/15/2009 Overview (06/15/2009): Per Lipid Taxonomy. Esophageal reflux 12/03/2007 BPH without obstruction/lower urinary tract symp toms 08/03/2006 Tobacco use disorder 06/03/2002 documented as of this encounter (statuses as of 07/23/2024) Resolved Problems Problem Noted Date Diagnosed Date Resolved Date Type 2 diabetes mellitus wit h autonomic neuropathy 08/17/2023 09/17/2023 Atherosclerosis of [place] co ronary artery without angina pectoris 08/17/2023 [...] as of this encounter (statuses as of 07/23/2024) Immunizations Name Administration Dates Next Due COVID-19 [...] encounter Miscellaneous Notes * Telephone Encounter - Cecy Mark RN - 07/23/2024 12:27 PM EST Lung Cancer Screening Program (LCSP) High Risk Outreach Call Summary 07/23/2024 Through advanced analysis/trending of this patient's history, they have been identified to have a positive Lung flag and are at a higher risk for lung cancer. This advanced analysis estimates the patient's risk for lung cancer. It only indicates that the patient's chances to have this condition are higher compared to most people. It does not indicate that the patient has this condition, but it is highly recommended the patient have a low dose CT screening for further evaluation. Patient previously had LDCT order, but the order has or schedulers couldn't reach pt. Re-placing order. Cecy Mark RN documented in this encounter Plan of Treatment Upcoming Encounters Date Type Department Care Team (Late st Contact Info) Description 07/29/2024 4:00 PM EST Anticoagulation Family Practice 65 [facility] 293 [place] [address] College, Pharmacist [address] [address] 08/05/2024 10:30 AM EST Telemedicine Cardiac [facility] [address] [place] [address] [place] [address] [facility] [address] [place] [address] [place] [address] 08/20/2024 10:45 AM EST Office Visit Cardiothoracic [facility]urg [facility] [place] [address] [place] [address] Jayden Galvan MD [address] [place] [address] 09/17/2024 8:40 AM EDT Office Visit Family Practice [address] [place] [address] [address] [place] [address] Leon Galvan, [address] [place] [address] 09/18/2024 8:00 AM EDT Office Visit Cardiology, [facility] 132 [facility] [place] [address] Alexandra Mackenzie CRNP 132 [facility] [place] [address] 10/10/2024 3:30 PM EDT Imaging Radiology [facility] [address] [place] [phone] 10/17/2024 9:00 AM EDT Office Visit Urology, [place] [address], [place] [phone] Johnathon Kent PA-C [address] [place], [place] [phone] 02/06/2025 9:30 AM EDT Office Visit Cardiology, [facility] [address] [place] [address] Poncho Robledo DO [address] [place] [address] Scheduled Orders Name Type Priority Associated Diagnoses Orde r Schedule CT CHEST LOW DOSE SCAN LUNG CANCER SCREEN 1 YEAR FOLLOW UP Medical Imaging Routine Nicotine dependence, cigarettes, uncomplicated Expected: 07/30/2024 (Approximate), Expires: 07/23/2026 Health Maintenance Due Date Last Done Comments [...] this encounter Medical Devices Implanted Type Area Supervisor Hydrochloric Area Device Identifier Shelf Expiration Date Model / Serial / Lot Lead Kit Trial [id number] 50cm - [id number] - [id number] Implanted:Qty: 1 on 05/08/2024 by Maged Monreal DO at OR [facility] Left: Back [employer] : PAIN MGMT 03/18/2026 [id number] 50E0 / [id number] / Lead Kit Trial [id number] 50cm - [id number] - [id number] Implanted:Qty: 1 on 05/08/2024 by Maged Monreal DO at OR [facility] Right: Back [employer] : PAIN MGMT 03/18/2026 [id number] 50E0 / [id number] / Suture Steel 6 B&S19 M654g - [id number] Implanted:Qty: 1 on 07/08/2024 by Jayden Galvan MD at OR [facility] N/A: Sternum JNJ : [employer] 03/08/2029 M654G / / [id number] Marker Coronary - [id number] Implanted:Qty: 1 on 07/08/2024 by Jayden Galvan MD at OR [facility] N/A: Heart [employer] 05/08/2027 [facility] / / [id number] Marker Coronary - [id number] Implanted:Qty: 1 on 07/08/2024 by Jayden Galvan MD at OR [facility] N/A: Heart [employer] 06/07/2027 [facility] / / [id number] documented as of this encounter Visit Diagnoses Diagnosis Nicotine dependence, cigarettes, uncomplicated- Primary documented in this encounter Advance Directives * Full Code (Latest Code Status on File) Date Activated Date Inactivated Comments 07/08/2024 12:14 PM 07/15/2024 5:39 PM This order reflects the patients wishes and were consensually agreed upon. Question Answer Comments Discussion of Advance Directives occurred with: Patient Care Teams In Mold Coater Relationship Specialty Start Date End Date Leon Galvan DO [address] [place] [address] PCP - General Internal Medicine 12/28/23 documented as of this encounter
--- OUTSIDE RECORDS SUMMARY | 2024-08-06 22:34 | External Medical Summary ---
Author Name Unknown Address Unknown Organization K01:LABORATORY [facility] - [address] [place] [address] Laboratory Report Ordering Provider Test Date Status RYLEE JOY 07/21/2024 06:49:00 Final Warfarin Therapy
INR: 2 .0-3.0 conventional anticoagulation
INR: 2.5- 3.5 high intensity anticoagulation Observation Date Value Abnormality Reference (Units ) Status PT 07/21/2024 06:49:00 28.0 Above high normal 11 .6-15.2 (seconds) Final INR 07/21/2024 06:49:00 2.6 Above high normal 0. 8-1.2 Final Performing Location LABORATORY [facility] - [address] [place] [address]
--- OUTSIDE RECORDS SUMMARY | 2024-08-06 22:34 | External Medical Summary ---
Author Name Unknown Address Unknown Organization K01:LABORATORY C - [address] [place] [address] Laboratory Report Ordering Provider Test Date Status DIANA JOYQUINCY 07/18/2024 06:53:00 Final Observation Date Value Abnormality Reference (Units ) Status HbA1C 07/18/2024 06:53:00 5.5 4.0-5.6 (% ) Final The use of HbA1c to monitor glycemic status is based on normal hemoglobin and HbA composition. This test should not be used in patients with abnormal hemoglobin that affects the half life of the red blood cell or the in vivo glycation rates. Glucose, estimated average 07/18/2024 06:53:00 111 <126 (mg/dL) Final Performing Location LABORATORY [facility] - [address] [place] [address]
--- OUTSIDE RECORDS SUMMARY | 2024-08-06 22:34 | External Medical Summary | Summary of Care ---
Author Name Unknown Organization [facility] Address [address] [place] [address] Phone [phone] Care Team Providers Care Machine Sneller Name Role Phone Leon Galvan DO Primary Care Provider [phone] Reason for Visit * Reason Onset Date Comments Custodial Visit Admit [facility] [place] s/p CABG Custodial Visit - Admission 07/16/2024 Encounter Details Date Type Department Care Team (Latest Contact Info) Description 07/16/2024 7:00 AM EST Custodial Visit [facility] [address] [place] [phone] Justin Garcia DO [address] [place] [address] Coronary artery disease involving [place] coronary artery of [place] heart with angina pectoris (HCC)*; Hx of CABG; COPD, group D, by GOLD 2017 classification (HCC); Heart failure, systolic, due to CAD (HCC); Old NE (myocardial infarction); Gastroesophageal reflux disease without esophagitis; Dyslipidemia, goal LDL below 70; Restless legs syndrome; Cerebrovascular disease, arteriosclerotic, post-stroke; HTN, goal below 140/90; Degeneration of intervertebral disc of lumbar region with discogenic back pain and lower extremity pain; Anxiety state; Tobacco use disorder Allergies Active Allergy Reactions Criticality Noted Date [...] mcgIndications:Vitamin B 12 deficiency 1000 mcg IM [id number] 08/17/2023 07/18/2024 Active documented as of this encounter (statuses as of 07/16/2024) Active Problems Problem Noted Date Diagnosed Date S/P CABG x 4 07/08/2024 Coronary artery disease invo lving [place] coronary artery of [place] heart with unstable angina pectoris 07/03/2024 Vitamin [...] h autonomic neuropathy 08/17/2023 09/17/2023 Atherosclerosis of [place] co ronary artery without angina pectoris 08/17/2023 [...] Tobacco: Never Tobacco Cessation:Ready to Q uit: Not Asked; Counseling Given: Not Answered Comments:2 cigarettes/day Alcohol Use Standard Drinks/Week Comments [...] as of this encounter Progress Notes * Justin Garcia, - 07/16/2024 7:49 PM EST ADMISSION HISTORY and PHYSICAL TRANSITION EVENT: Type: SNF admission Date: July 16 Code Status: Full Code Name: Henri Vigil Date of : 1950 This note pertains to care provided at [facility]. Please see facility medical record for original note. This note is not to be edited or addended in [place]. Editing or addending needs to occur in the facilities medical record. S: Henri Vigil had been admitted to [facility] for PT and OT. Recently admitted to [facility] because of CAD, CABG done and was transferred here and admitted on 07/15/24. Patient seen as new admission to skilled facility. Prior to our location was hospitalized at [facility] for symptomatic coronary artery disease recommended to have CABG. Had been following with Cardiology and noted to have worsening EF 35% on echocardiogram. Also noted to have small apical thrombus. Previous nuclear stress test in early 2023 demonstrated large area of apical scar with wall motion abnormalities in the apical anterior apex and apical inferior. Had been having worsening anginal symptoms. Underwent CABG x4 on June 28. Did require some ionotropic support postop. Also noted to have AFib with RVR. Loaded with IV Amiodarone and discharged on p.o. amiodarone daily . Was started on Coumadin for anticoagulation related to apical thrombus. PT/INR pending from today States has been feeling better since his procedure. Breathing seems better. No current anginal symptoms. A little soreness near his sternal incisions however if he feels they have been healing well. Therapy staff notes that patient had some numbness/tingling in his feet bilaterally while exercising. There were no falls or injuries. No swelling in the legs. Patient states has gotten symptoms like this intermittently in the past. There was no note of increased back or neck pain. No bowel/bladder incontinence Past Medical History: Patient Active Problem List Diagnosis Tobacco use disorder BPH without obstruction/lower urinary tract symptoms Esophageal reflux Dyslipidemia, goal LDL below 70 Heart failure, systolic, due to CAD ([facility]) Old NE (myocardial infarction) Pulmonary nodule Gout Restless legs syndrome Cognitive changes Cerebrovascular disease, arteriosclerotic, post-stroke Prediabetes Right renal mass COPD, group D, by GOLD 2017 classification ([facility]) Anxiety state Coronary artery disease with stable angina pectoris ([facility]) Lumbar degenerative disc disease HTN, goal below 140/90 Vitamin B 12 deficiency Coronary artery disease involving [place] coronary artery of [place] heart with unstable angina pectoris ([facility]) S/P CABG x 4 Current Outpatient Medications Medication Sig Dispense Refill oxygen GAS Use 2 L/min(Oxygen) as directed at bedtime. 1 Each 0 Pantoprazole Sodium 40 MG Oral Tablet Delayed Release (Protonix) Take 1 Tablet by mouth in the morning. Acetaminophen 325 MG Oral Tablet Take 1 Tablet by mouth every 6 hours as needed. Famotidine 20 MG Oral Tablet Take 1 Tablet by mouth in the morning. Dutasteride 0.5 MG Oral Capsule (Avodart) Take [...] mouth daily at noon.) 90 Capsule 3 Amiodarone HCl 200 MG Oral Tablet (Cordarone) Take 1 Tablet by mouth daily with breakfast. 30 Tablet 0 Warfarin Sodium 1 MG Oral Tablet (Coumadin) Take tablet by mouth daily as directed by discharged instructions and the anticoagulation clinic. 30 Tablet 1 Pregabalin 75 MG Oral Capsule (Lyrica) Take 1 Capsule by mouth in the morning and 1 Capsule before bedtime. 60 Capsule 0 Furosemide 40 MG Oral Tablet (Lasix) Take 1 Tablet by mouth in the morning. 30 Tablet 0 Potassium Chloride Joyce ER 10 MEQ Oral Tablet Extended Release Take 2 Tablets by mouth in the morning. 60 Tablet 0 Carvedilol 3.125 MG Oral Tablet (Coreg) Take 1 Tablet by mouth 2 times a day with morning and evening meals. 60 Tablet 3 Current Facility-Administered Medications Medication Dose Route Frequency Provider Last Rate Last Admin vitamin b-12 (Cyanocobalamin) inj 1,000 mcg 1,000 mcg Intramuscular Q4 Weeks Leon Galvan DO 1,000 mcg at 06/16/24 1045 Review of patient's allergies indicates: Allergen Reactions Codeine Other (Please comment) Severe Skin peeling Social History Tobacco Use Smoking status: Every Day Current packs/day: 0.50 Average packs/day: 0.5 packs/day for 59.0 years (29.5 ttl pk-yrs) Types: Cigarettes Start date: 1965 Passive exposure: Current Smokeless tobacco: Never Tobacco comments: 2 cigarettes/day Substance Use Topics Alcohol use: No Vaping/E-Cigarette Use Vaping/E-Cigarette Use Never User Vaping/E-Cigarette Substances Nicotine No Other No Flavoring No THC No Cannabidiol (CBD) No Vaping/E-Cigarette Devices Disposable No Pre-filled or Refillable Cartridge No Refillable Tank No Pre-filled Pod No Past Surgical History: Procedure Laterality Date CABG, ARTERIAL, SINGLE N/A 07/08/2024 CORONARY ARTERY BYPASS GRAFT USING ARTERY 1 GRAFT performed by Jayden Galvan MD at [facility] CABG, ARTERY-VEIN, TWO N/A 07/08/2024 CORONARY ARTERY BYPASS GRAFT ARTERIAL AND VENOUS 2 GRAFTS performed by Jayden Galvan MD at [facility] COLONOSCOPY, DIAGNOSTIC (RECTUM) 11/25/2021 COLONOSCOPY FLEXIBLE PROXIMAL DIAGNOSTIC performed by Ryann Damon MD at ENDOSCOPY [facility] COLONOSCOPY, DIAGNOSTIC (RECTUM) N/A 10/20/2022 hemorrhoids/colonoscopy/[place] CYSTOSCOPY 11/07/2005 trus measurement EGD, FLEXIBLE, DIAGNOSTIC 09/08/2015 Barretts, Schatzki ring, repeat 1 yr/[facility] EGD, FLEXIBLE, DIAGNOSTIC 10/17/2016 Barretts, repeat 2 yrs/[facility] EGD, FLEXIBLE, DIAGNOSTIC 01/15/2019 Lowe's esophagitis, hiatal hernia, repeat 2 yrs/[facility] EGD, FLEXIBLE, DIAGNOSTIC 07/15/2021 Barretts, repeat 2 yrs / ESOPHAGOGASTRODUODENOSCOPY (EGD), FLEXIBLE, TRANSORAL, DIAGNOSTIC performed by Ryann Damon MD at ENDOSCOPY [facility] EGD, FLEXIBLE, DIAGNOSTIC N/A 10/20/2022 biopsies from esophagus show mild reflux/EGD/[place] ENDO,VIDEO ASSIST HARVEST TEJ N/A 07/08/2024 ENDOSCOPY VIDEO ASSISTED HARVEST VEIN performed by Jayden Galvan MD at OR [facility] EVAL NEUROSTIM PULSE GEN, W/ REPROGRAM 05/08/2024 NEUROSTIMULATOR PULSE GENERATOR/ TRANSMITTER, WITH INTRAOPERATIVE OR SUBSEQUENT PROGRAMMING performed by Maged Monreal DO at OR [facility] IMPLANT EPIDURAL NEUROELECTRODES 05/08/2024 PERCUTANEOUS IMPLANTATION NEUROSTIMULATOR EPIDURAL performed by Maged Monreal DO at OR [facility] IMPLANT EPIDURAL NEUROELECTRODES 05/08/2024 PERCUTANEOUS IMPLANTATION NEUROSTIMULATOR EPIDURAL performed by Maged Monreal, at OR [facility] INJECT DX/THER SUBSTANCE INTERLAMINAR LUMBAR/SACRAL W IMAGE GUIDE 07/19/2017 INJECTION SPINE LUMBAR OR SACRAL performed by Donavon Conklin, DO at OR [facility] MISCELLANEOUS ORDER ([facility] ONLY) Right 11/12/2019 REINHEIMER- LATERAL TARSAL STRIP NONE 11/06/2004 heart attack, [place] NONE ? heart catherization, [place] NONE ? back surgery, [place] OTHER LAD stent 10/08/04,Plavix until 10/08/05 PROSTATE, LASER VAPORIZATION 11/22/2005 TULIP SACROILIAC JOINT INJECT W/GUIDANCE 09/03/2017 INJECTION SACROILIAC JOINT performed by Donavon Conklin, DO at OR [facility] SACROILIAC JOINT INJECT W/GUIDANCE 10/25/2017 INJECTION SACROILIAC JOINT performed by Donavon Conklin, DO at OR [facility] SPINAL FUSION, LUMBAR, COMBINED 2012 Fusion L4? Family History Problem Relation Name Age of Onset Heart Disorder Father NE Heart Disorder Mother NE Heart Disorder Brother Heart Disorder Brother Cancer Brother Stroke Brother Hyperlipidemia Brother No Past Hx Daughter No Past Hx Daughter Heart Disorder Brother NE Heart Disorder Brother NE No Past Hx Son Depression Sister Asthma Sister COPD Sister Family Status Relation Status Fa at age 56 colon cancer Mo at age 54 mi Bro at age 48 mi Bro at age 57 mi Bro Luis Alive Luis Alive Bro (Not Specified) Bro (Not Specified) Son Alive Sis at age 78 Sis Alive Review of Systems: Please see HPI. Otherwise comprehensive 14 point ROS found to be negative. ADL skills: dependent Ambulates with walker OBJECTIVE: PHYSICAL EXAM: I reviewed the most recent facilities vitals. Refer to vital signs flowsheet in snf chart.General: alert, healthy, and no distress Head: Normocephalic, No masses, lesions, tenderness or abnormalities Eye Exam: PERRLA, extraocular movements intact, conjunctiva are pink and non- injected, sclera clear Oropharynx: no exudate, no erythema, lips, buccal mucosa, and tongue normal, and mucous membranes are moist Neck: supple, no adenopathy, no bruits, no JVD, thyroid normal size, non-tender, without nodularity Heart: regular rate & rhythm, no murmur, and no gallops Lungs: chest symmetric with normal AP diameter, no chest deformities noted, no chest wall tenderness, lungs clear to auscultation, rare exp rhonchi, no tachypnea or accessory muscle use. Abdomen: abdomen soft, non-tender, normal bowel sounds, and no masses or organomegaly Extremities: less than 2 second capillary refill, no joint deformities, effusion, or inflammation, no swelling in bilateral feet, pulses intact bilaterally Neuro Exam: alert & oriented x 3 with fluent speech, no focal motor/sensory deficits, gait normal, reflexes normal and symmetric, sensation intact in both lower extremities Skin: skin color, texture, turgor are normal, no rashes or significant lesions ASSESSMENT: Coronary artery disease involving [place] coronary artery of [place] heart with angina pectoris (HCC)(Primary) Hx of CABG COPD, group D, by GOLD 2017 classification ([facility]) Heart failure, systolic, due to CAD (HCC) Old NE (myocardial infarction) Gastroesophageal reflux disease without esophagitis Dyslipidemia, goal LDL below 70 Restless legs syndrome Cerebrovascular disease, arteriosclerotic, post-stroke HTN, goal below 140/90 Degeneration of intervertebral disc of lumbar region with discogenic back pain and lower extremity pain Anxiety state Tobacco use disorder Plan: Patient presents for skilled PT/OT. Recent hospitalization for CABG related to refractory CAD, ischemic cardiomyopathy Patient noting some numbness/tingling while ambulating. No acute neurologic deficits on exam. Pulses intact. Patient has had history of these symptoms occasionally in the past. Known history of RLS. Will continue to monitor for now Continue current medications. Continue carvedilol 3.125 mg twice daily, amiodarone 200 mg daily foratrial fibrillation. Currently rate controlled. Continue Coumadin 1 mg daily for anticoagulation. PT INR will be monitored routinely. Pending from today Continue evaluations by PT/OT Will check routine labs including CMP, CBC, A1c, thyroid Continue current diet. Monitor weight routinely Discussed code status with patient. He would like to be full code. This was discussed in full Follow Up: Return if symptoms worsen or fail to improve, for Return with Physician, Return with AP.| For: Return with Physician, Return with AP | Check- out note: Will be followed regularly at SNF PLAN: 1. Continue present medication(s): Referral(s) to: Cardiology, CT Surgery Schedule labs: CMP, CBC, Lipids, A1c, TSH 2. Admission orders, medications, labs, hospital records and care plan reviewed. 3. Continue current treatment plan as , Servicing Manager consult, Physical Therapy, and Occupational Therapy ordered. 4. Care plan reviewed. 5. Advance Directives were discussed: Full Code 6. [facility] Given: care as above I spent a total of 40-54 minutes (exact time 45 mins) on the date of service in preparation, delivery, and documentation of the care provided to Henri Vigil excluding any time spent in the performance of separately billed services or time spent by another provider/QHP. documented in this encounter Plan of Treatment Upcoming Encounters Date Type Department Care Team (Late st Contact Info) Description 07/21/2024 3:50 PM EST Anticoagulation Family Practice [address] [place] [id number] College, Pharmacist [address] [place] [id number] 07/22/2024 10:45 AM EST Scheduled Telephone [facility], [facility] [address] [facility] [place] [address] Alma Armando CM [address] [place] [address] 08/20/2024 10:45 AM EST Office Visit Cardiothoracic Surg [facility] [address] [place] [address] Jayden Galvan MD [address] [place] [address] 09/17/2024 8:40 AM EDT Office Visit Family [address] [phone] Leon Galvan, DO [address] [place] [address] 09/18/2024 8:00 AM EDT Office Visit Cardiology, [facility] [address] [place] [address] Alexandra Mackenzie CRNP [address] [facility] [place] [address] 10/10/2024 3:30 PM EDT Imaging Radiology [facility] [address] [facility] [place] [address] 10/17/2024 9:00 AM EDT Office Visit Urology, [place] [address] [place] [address] Johnathon Kent PA-C [address], [place] [id number] 02/06/2025 9:30 AM EDT Office Visit Cardiology, [facility] [address] [facility] [place] [address] Poncho Robledo, [address] [facility] [place] [address] Health Maintenance Due Date Last Done Comments Cologuard 1995 Sigmoidoscopy 1995 Fecal Occult Blood Test 12/20/2008 12/21/2007 *ADVANCE DIRECTIVE NOT ON FILE 2019 DISCUSS TOBACCO CESSATION (REFER TO SMARTSET #3291) 06/18/2024 06/18/2023, 01/24/2017 Adult Wellness Visit 02/17/2025 02/18/2024, 10/31/2022, 08/17/2021 Depression Screening 02/17/2025 02/18/2024, 01/02/20 24 HbA1c 07/04/2025 07/04/2024, 12/03/2024, 02/15/2024, Additional history exists O2 ASSESSMENT COMPLETED [...] this encounter Medical Devices Implanted Type Area Technologies Division Chair Device Identifier Shelf Expiration Date Model / Serial / Lot Lead Kit Trial [id number] 50cm - [id number] - [id number] Implanted:Qty: 1 on 05/08/2024 by Maged Monreal DO at OR [facility] Left: Back [employer] : PAIN MGMT 03/18/2026 [id number] / [id number] / Lead Kit Trial [id number] 50cm - [id number] - [id number] Implanted:Qty: 1 on 05/08/2024 by Maged Monreal DO at OR [facility] Right: Back [employer] : PAIN MGMT 03/18/2026 [id number] 50E0 / [id number] / Suture Steel 6 B&S19 M654g - [id number] Implanted:Qty: 1 on 07/08/2024 by Jayden Galvan MD at OR [facility] N/A: Sternum JNJ : [employer] 03/08/2029 M654G / / [id number] Marker Coronary - [id number] Implanted:Qty: 1 on 07/08/2024 by Jayden Galvan MD at OR [facility] N/A: Heart [employer] 05/08/2027 [facility] / / [id number] Marker Coronary - [id number] Implanted:Qty: 1 on 07/08/2024 by Jayden Galvan MD at OR [facility] N/A: Heart [employer] 06/07/2027 [facility] / / [id number] documented as of this encounter Visit Diagnoses Diagnosis Coronary artery disease involving [place] coronary artery of [place] heart with angina pectoris (HCC)- Primary Hx of CABG Postsurgical aortocoronary bypass status COPD, group D, by GOLD 2017 classification (HCC) Heart failure, systolic, due to CAD (HCC) Unspecified systolic heart failure Old NE (myocardial infarction) Old myocardial infarction Gastroesophageal reflux disease without esophagitis Esophageal reflux Dyslipidemia, goal LDL below 70 Other and unspecified hyperlipidemia Restless legs syndrome Restless legs syndrome (RLS) Cerebrovascular disease, arteriosclerotic, post-stroke Cerebral atherosclerosis HTN, goal below 140/90 Unspecified essential hypertension Degeneration of intervertebral disc of lumbar region with discogenic back pain and lower extremity pain Anxiety state Anxiety state, unspecified Tobacco use disorder documented in this encounter Advance Directives * Full Code (Latest Code Status on File) Date Activated Date Inactivated Comments 07/08/2024 12:14 PM 07/15/2024 5:39 PM This order reflects the patients wishes and were consensually agreed upon. Question Answer Comments Discussion of Advance Directives occurred with: Patient Care Teams Machine Sneller Relationship Specialty Start Date End Date Leon Galvan DO [address] [facility] [place] [address] PCP - General Internal Medicine 12/28/23 documented as of this encounter"
--- OUTSIDE RECORDS SUMMARY | 2024-08-06 22:34 | External Medical Summary | Summary of Care ---
Author Name Unknown Organization [facility] Address [address] [facility] [place] [address] Phone [phone] Care Team Providers Care Soda Fountain Operator Name Role Phone Leon Galvan DO Primary Care Provider [phone] Reason for Visit * Reason Onset Date Comments Longterm Visit - Admission 07/17/2024 Encounter Details Date Type Department Care Team (Latest Contact Info) Description 07/17/2024 8:30 AM EST Longterm Visit [facility] [address] [place] [phone] Rena Diaz PA-C [address] [place] [phone] Coronary artery disease involving citizen [place] coronary artery of [place] heart with unstable angina pectoris (HCC)*; S/P CABG x 4; Heart failure, systolic, due to CAD (HCC); HTN, goal below 140/90; COPD, group D, by GOLD 2017 classification ([facility]); Dyslipidemia, goal LDL below 70; Restless legs syndrome; BPH without obstruction/lower urinary tract symptoms; Impaired mobility and ADLs Allergies Active Allergy [...] 300 Tablet 11/21/2023 10:41 AM EDT 02/07/20 23 [...] mcgIndications:Vitamin B 12 deficiency 1000 mcg IM [id number] 08/17/2023 07/18/2024 Active documented as of this encounter (statuses as of 07/17/2024) Active Problems Problem Noted Date Diagnosed Date Impaired mobility and ADLs 07/17/2024 S/P CABG x 4 07/08/2024 Coronary artery disease invo lving [place] coronary artery of [place] heart with unstable angina pectoris 07/03/2024 Vitamin [...] h autonomic neuropathy 08/17/2023 09/17/2023 Atherosclerosis of [place] co ronary artery without angina pectoris 08/17/2023 [...] No 06/18/2023 Does the household have a [facility] source of income? (Household - for ages [...] 3:50 PM EST Anticoagulation Family Practice [address] [address] College, Pharmacist [address] [address] 07/22/2024 10:45 AM EST Scheduled Telephone [facility], [facility] [address] [facility] [place] [address] Alma Armando CM [address] [place] [address] 08/20/2024 10:45 AM EST Office Visit Cardiothoracic Surg [facility] [address] [address] Jayden Galvan MD [address] [place] [address] 09/17/2024 8:40 AM EDT Office Visit Family Practice [address] [place] [address] 293 [facility] [place] [address] Leon Galvan, 293 [place] [address] 09/18/2024 8:00 AM EDT Office Visit Cardiology, [facility] [address] [place] [address] Alexandra Mackenzie CRNP [facility] [address] 10/10/2024 3:30 PM EDT Imaging Radiology [facility] 132 [place] [address] 10/17/2024 9:00 AM EDT Office Visit Urology, [place] [address] [place] [address] Johnathon Kent PA-C [address] [place] [address] 02/06/2025 9:30 AM EDT Office Visit Cardiology, [facility] 132 [facility] [place] [address] Poncho Robledo, DO 132 [facility] [place] [address] Health Maintenance Due Date Last Done Comments [...] this encounter Medical Devices Implanted Type Area Fiber Designer Device Identifier Shelf Expiration Date Model / Serial / Lot Lead Kit Trial [id number] 50cm - [id number] - [id number] Implanted:Qty: 1 on 05/08/2024 by Maged Monreal DO at OR [facility] Left: Back [employer] : PAIN MGMT 03/18/2026 [id number] 50E0 / [id number] / Lead Kit Trial [id number] 50cm - [id number] - [id number] Implanted:Qty: 1 on 05/08/2024 by Maged Monreal DO at OR [facility] Right: Back [employer] : PAIN MGMT 03/18/2026 [id number] 50E0 / [id number] / Suture Steel 6 B&S19 M654g - [id number] Implanted:Qty: 1 on 07/08/2024 by Jayden Galvan MD at OR [facility] N/A: Sternum JNJ : [employer] 03/08/2029 M654G / / 103BLE Marker Coronary - [id number] Implanted:Qty: 1 on 07/08/2024 by Jayden Galvan MD at OR [facility] N/A: Heart Birst 05/08/2027 [facility] / / [id number] Marker Coronary - [id number] Implanted:Qty: 1 on 07/08/2024 by Jayden Galvan MD at OR [facility] N/A: Heart Extreme Reality[employer] 06/07/2027 [facility] / / [id number] documented as of this encounter Visit Diagnoses Diagnosis Coronary artery disease involving citizen [place] coronary artery of citizen [place] heart with unstable angina pectoris ([facility])- Primary S/P CABG x 4 Postsurgical aortocoronary bypass status Heart failure, systolic, due to CAD ([facility]) Unspecified systolic heart failure HTN, goal below 140/90 Unspecified essential hypertension COPD, group D, by GOLD 2017 classification ([facility]) Dyslipidemia, goal LDL below 70 Other and unspecified hyperlipidemia Restless legs syndrome Restless legs syndrome (RLS) BPH without obstruction/lower urinary tract symptoms Hypertrophy of prostate without urinary obstruction and other lower urinary tract symptoms (LUTS) Impaired mobility and ADLs Mechanical problems with limbs documented in this encounter Advance Directives * Full Code (Latest Code Status on File) Date Activated Date Inactivated Comments 07/08/2024 12:14 PM 07/15/2024 5:39 PM This order reflects the patients wishes and were consensually agreed upon. Question Answer Comments Discussion of Advance Directives occurred with: Patient Care Teams Soda Fountain Operator Relationship Specialty Start Date End Date Leon Galvan DO [address] [place] [address] PCP - General Internal Medicine 12/28/23 documented as of this encounter
--- OUTSIDE RECORDS SUMMARY | 2024-08-06 22:34 | External Medical Summary | Summary of Care ---
Author Name Unknown Organization [facility] Address [address] [place] [address] Phone [phone] Care Team Providers Care Parcel Post Weigher Name Role Phone Leon Galvan DO Primary Care Provider [phone] Encounter Details Date Type Department Care Team (Late st Contact Info) Description 07/21/2024 Population Health External Data Unspecified Department Allergies [...] 4 07/08/2024 Coronary artery disease invo lving [place] coronary artery of [place] heart with unstable angina pectoris 07/03/2024 Vitamin [...] h autonomic neuropathy 08/17/2023 09/17/2023 Atherosclerosis of [place] co ronary artery without angina pectoris 08/17/2023 [...] 8:10 AM EST Laboratory Lab Mobile Phlebotomy [facility] [address] [place] [address] Home, [facility] [place] [facility] [address] [place] [phone] Atrial fibrillation (HCC) 07/21/2024 3:50 PM EST Anticoagulation Family Practice [address] [place] [address] [address] [place] [address] College, Pharmacist [address] [place] [address] [address] [place] [address] Arrived 07/22/2024 10:45 AM EST Scheduled Telephone [facility], [facility] [address] [place] [address] Alma Armando, [address] [place] [address] 08/20/2024 10:45 AM EST Office Visit Cardiothoracic Surg [facility] [address] [place] [address] Jayden Galvan MD [address] [place] [address] 09/17/2024 8:40 AM EDT Office Visit Family Practice 65 [facility] [address] [place] [address] Leon Galvan DO [address] [place] [address] 09/18/2024 8:00 AM EDT Office Visit Cardiology, [facility] 132 [facility] [place] [address] Alexandra Mackenzie CRNP [address] [place] [place] [address] 10/10/2024 3:30 PM EDT Imaging Radiology [facility] [address] [place] [address] 10/17/2024 9:00 AM EDT Office Visit Urology, [place] [address] [place] [address] Johnathon Kent PA-C [address] [place] [address] 02/06/2025 9:30 AM EDT Office Visit Cardiology, [facility] [address] [place] [address] Poncho Robledo, [address] [place] [place] [address] Health Maintenance Due Date Last Done Comments [...] 07/15/2024, /0 12/2024, 07/13/2024, Additional history exists HbA1c 07/18/2025 [...] this encounter Medical Devices Implanted Type Area Client Server Programmer Device Identifier Shelf Expiration Date Model / Serial / Lot Lead Kit Trial [id number] 50cm - [id number] - [id number] Implanted:Qty: 1 on 05/08/2024 by Maged Monreal DO at OR [facility] Left: Back [employer] : PAIN MGMT 03/18/2026 [id number] 50E0 / [id number] / Lead Kit Trial [id number] 50 - [id number] - [id number] Implanted:Qty: 1 on 05/08/2024 by Maged Monreal DO at OR [facility] Right: Back [employer] : PAIN MGMT 03/18/2026 [id number] 50E0 / [id number] / Suture Steel 6 B&S19 M654g - [id number] Implanted:Qty: 1 on 07/08/2024 by Jayden Galvan MD at OR [facility] N/A: Sternum JNJ : [employer] 03/08/2029 M654G / / 103BLE Marker Coronary - [id number] Implanted:Qty: 1 on 07/08/2024 by Jayden Galvan MD at OR [facility] N/A: Heart [employer]ESSEE [employer] 05/08/2027 [facility] / / [id number] Marker Coronary - [id number] Implanted:Qty: 1 on 07/08/2024 by Jayden Galvan MD at OR [facility] N/A: Heart [employer] 06/07/2027 [facility] / / [id number] documented as of this encounter Advance Directives * Full Code (Latest Code Status on File) Date Activated Date Inactivated Comments 07/08/2024 12:14 PM 07/15/2024 5:39 PM This order reflects the patients wishes and were consensually agreed upon. Question Answer Comments Discussion of Advance Directives occurred with: Patient Care Teams Parcel Post Weigher Relationship Specialty Start Date End Date Leon Galvan DO 293 [facility] [place] [address] PCP - General Internal Medicine 12/28/23 documented as of this encounter
--- OUTSIDE RECORDS SUMMARY | 2024-08-06 22:34 | External Medical Summary | Summary of Care ---
Author Name Unknown Organization [facility] Address [address] [place] [address] Phone [phone] Care Team Providers Care Pay Clerk Name Role Phone Leon Galvan DO Primary Care Provider Reason for Visit * Reason Onset Date Comments [facility]: Maintenance 07/22/2024 Encounter Details Date Type Department Care Team (Late st Contact Info) Description 07/22/2024 10:45 AM EST Scheduled Telephone [facility], [facility] [address] [place] [address] Alma Armando, [address] [place] [address] Allergies Active Allergy Reactions Criticality Noted Date Comments Codeine Other (Please comment) High 09/08/2013 Severe Skin peeling documented as of this encounter (statuses as of 07/22/2024) Medications oxygen GASIndications :Chronic coronary artery disease,COPD, [...] as of this encounter (statuses as of 07/22/2024) Active Problems Problem Noted Date Diagnosed Date Impaired mobility and ADLs 07/17/2024 S/P CABG x 4 07/08/2024 Coronary artery disease invo lving [place] coronary artery of [place] heart with unstable angina pectoris 07/03/2024 Vitamin [...] failure, systolic, due to CAD 09/08/2013 Old [place] (myocardial infarction) 09/08/2013 Dyslipidemia, goal LDL below 70 06/15/2009 Overview (06/15/2009): Per Lipid Taxonomy. Esophageal reflux 12/03/2007 BPH without obstruction/lower urinary tract symp toms 08/03/2006 Tobacco use disorder 06/03/2002 documented as of this encounter (statuses as of 07/22/2024) Resolved Problems Problem Noted Date Diagnosed Date Resolved Date Type 2 diabetes mellitus wit h autonomic neuropathy 08/17/2023 09/17/2023 Atherosclerosis of [place] co ronary artery without angina pectoris 08/17/2023 [...] as of this encounter (statuses as of 07/22/2024) Immunizations Name Administration Dates Next Due COVID-19 mRNA, LNP-s, No Pre serve, 2-Dose Series (Moderna) 12/22/2020,11/23/2020 COVID-19, MRNA-LNP, PF, 30 M CG/0.3 mL, 12 YRS AND ABOVE, IM ([employer]irnat[employer]down To Buy) 06/16/2024,05/07/2023 COVID-19, mRNA, LNP-s, PF, B ooster, [...] Telephone Encounter - Alma Armando CM - 07/22/2024 11:06 AM EST Call placed to [facility]. Left message for Manas requesting a call back Alma Armando Client Care Coordinator [facility] [email or web address] documented in this encounter Plan of Treatment Upcoming Encounters Date Type Department Care Team (Late st Contact Info) Description 07/29/2024 4:00 PM EST Anticoagulation Family Practice [address] [address] College, Pharmacist [address] [place] [address] 08/05/2024 10:30 AM EST Telemedicine [facility], Virtual [address] [place] [address] [place] [address] Advanced, [facility] [address] [place] [address] [place] [address] 08/20/2024 10:45 AM EST Office Visit Cardiothoracic Surg [facility] [address] [place], [place] [id number] Jayden Galvan MD [address] [place] [address] 09/17/2024 8:40 AM EDT Office Visit Family Practice [address] [place] [address] 293 [place] [address] Leon Galvan DO 293 [place] [address] 09/18/2024 8:00 AM EDT Office Visit Cardiology, [facility] 132 [facility] [place] [address] Alexandra Mackenzie CRNP 132 [facility] [place] [address] 10/10/2024 3:30 PM EDT Imaging Radiology [facility] 132 [facility] [place] [address] 10/17/2024 9:00 AM EDT Office Visit Urology, [place] [address] [place] [address] Johnathon Kent PA-C [address] [place] [address] 02/06/2025 9:30 AM EDT Office Visit Cardiology, [facility] 132 [facility] [place] [address] Poncho Robledo, 132 [facility] [place] [address] Health Maintenance Due Date Last Done Comments [...] this encounter Medical Devices Implanted Type Area Clinical Coordinator Device Identifier Shelf Expiration Date Model / Serial / Lot Lead Kit Trial [id number] 50cm - [id number] - [id number] Implanted:Qty: 1 on 05/08/2024 by Maged Monreal DO at OR [facility] Left: Back [employer] : PAIN MGMT 03/18/2026 [id number] 50E0 / [id number] / Lead Kit Trial [id number] 50cm - [id number] - [id number] Implanted:Qty: 1 on 05/08/2024 by Maged Monreal DO at OR [facility] Right: Back [employer] : PAIN MGMT 03/18/2026 [id number] 50E0 / [id number] / Suture Steel 6 B&S19 M654g - [id number] Implanted:Qty: 1 on 07/08/2024 by Jayden Galvan MD at OR [facility] N/A: Sternum JNJ : [employer] 03/08/2029 M654G / / 103BLE Marker Coronary - [id number] Implanted:Qty: 1 on 07/08/2024 by Jayden Galvan MD at OR [facility] N/A: Heart [employer]ESSEE [employer] 05/08/2027 [facility] / / [id number] Marker Coronary - [id number] Implanted:Qty: 1 on 07/08/2024 by Jayden Galvan MD at OR [facility] N/A: Heart [employer] 06/07/2027 [facility] / / [id number] documented as of this encounter Advance Directives * Full Code (Latest Code Status on File) Date Activated Date Inactivated Comments 07/08/2024 12:14 PM 07/15/2024 5:39 PM This order reflects the patients wishes and were consensually agreed upon. Question Answer Comments Discussion of Advance Directives occurred with: Patient Care Teams Pay Clerk Relationship Specialty Start Date End Date Leon Galvan DO [address] [place] [address] PCP - General Internal Medicine 12/28/23 documented as of this encounter
--- OUTSIDE RECORDS SUMMARY | 2024-08-06 22:35 | External Medical Summary | Summary of Care ---
Author Name Unknown Organization [facility] Address [address] [place] [address] Phone [phone] Care Team Providers Care Spot Billing Clerk Name Role Phone Leon Calle DO Primary Care Provider [phone] Reason for Referral * Evaluate & Treat - Unlimited Visits (Within 24 hrs (call dept; emergent)) - Authorized Specialty Diagnoses / Procedures Referred By Katie berman Referred To Contact Dietitian / Nutrition Services Diagnoses CAD (coronary artery disease) S/P CABG x 4 Cherelle Osman PA-C [address] [place] [address] Phone: tel: fax: Referral ID Status Reason Start Date Expiration Date Visits Requested Visits Authorized [id number] Authorized Specialty Services Required 07/13/2024 999 [id number] Question Answer Referral Priority Within 24 hrs (call dept; emergent) Where should this appointment be scheduled? [facility] What condition is the patient being seen for? All other conditions - s/p heart surgery Other: Other: Use Comment Box Is this for 65 Forward? No Comments Heart Surgery Discharge Order * Evaluate & Treat - Unlimited Visits (Within 3 days (urgent)) - Authorized Specialty Diagnoses / Procedures Referred By Katie berman Referred To Contact ANTI-COAG CLINIC / Pharmacy Diagnoses S/P CABG x 4 Noa Go PA-C [address] [place] [address] Phone: tel: fax: Referral ID Status Reason Start Date Expiration Date Visits Requested Visits Authorized [id number] Authorized Specialty Services Required 12/31/202 4 01/04/2025 99 99 Question Answer Referral Priority Within 3 days (urgent) Where should this appointment be scheduled? [facility] Anticoagulation referral for management of: Warfarin Indication and INR goal for Warfarin Management: VTE: Other Apical thrombus, INR Goal: (2.0-3.0) Relevant History: N/A Enoxaparin bridging required? Yes Minimum frequency patient should be seen in person for medication management: as appropriate per clinical condition and patient status By my signature, I understand that my patient Henri Vigil will have his medication therapy managed by the [facility] ([facility]) per established policies, procedures, and protocols. I also certify that this referral may serve as an initiation of service for the management of drug therapy in the above noted patient. [facility] providers will be responsible for scheduling patient visits, obtaining appropriate laboratory studies, and adjusting medication management therapy per patient's need, in addition to those roles spelled out in the clinic policy, procedures, and drug management protocols. I understand that the service provided by the [facility] Clinic is voluntary and have informed patient that they can refuse the service at their discretion. I am aware that the [facility] Clinic will provide me with a copy of the patient encounter via my [employer]. I authorize the [facility] to carry out these activities on my behalf. I consider this program to be a necessary part of the patient's medical care. Noa Go PA-C Discharge Order Discharge Order * Evaluate & Treat - Unlimited Visits (Within 30 days (routine)) - Authorized Specialty Diagnoses / Procedures Referred By Contalex t Referred To Contact CARDIAC REHAB / Cardiology Diagnoses 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) S/P CABG x 4 Patria Mott PA-C [address] [place] [address] Phone: tel: fax: Referral ID Status Reason Start Date Expiration Date Visits Requested Visits Authorized [id number] Authorized Specialty Services Required 4 [id number] Question Answer Referral Priority Within 30 days (routine) Where should this appointment be scheduled? [facility] Comments Discharge Order Reason for Visit * Auth/Cert Specialty Diagnoses / Procedures Referred By Katie berman Referred To Contact Diagnoses 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) 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) [I25.110] Procedures CABG, ARTERIAL, SINGLE CABG, ARTERY-VEIN, TWO ENDO,VIDEO ASSIST HARVEST TEJ CORONARY ARTERY BYPASS GRAFT USING ARTERY 1 GRAFT CORONARY ARTERY BYPASS GRAFT ARTERIAL AND VENOUS 2 GRAFTS ENDOSCOPY VIDEO ASSISTED HARVEST VEIN Jayden Galvan MD [address] [place] [address] Phone: tel: fax: OR [facility], OPERATING ROOM [facility] [place], [facility] [address] [place] [address] Phone: tel: Referral ID Status Reason Start Date Expiration Date Visits Re quested Visits Authorized [id number] Encounter Details Date Type Department Care Team (Latest Contact Info) Description 07/08/2024 5:27 AM EST - 07/15/2024 1:34 PM EST Hospital Encounter CICU, Cardiac Intensive Care Unit [facility] 7TH Floor [address] [place] [address] Jayden Galvan MD [address] [place] [address] Jayden Mejias MD [address] [place] [address] Various: KRAVS,EKG,CDIQDC Discharge Disposition: SNF Allergies Active Allergy Reactions Criticality Noted Date Comments Codeine Other (Please comment) High 09/08/2013 Severe Skin peeling documented as of this encounter (statuses as of 07/16/2024) Medications oxygen GASIndications: Chronic coronary artery disease,COPD, mild (HCC),Heart failure, systolic, due to CAD (HCC) Use 2 L/min(Oxygen) as directed at bedtime. 1 Each 017 Active Pantoprazole Sodium 40 MG Oral Tablet Delayed Release (Protonix) Take 1 Tablet by mouth in the morning. Active Acetaminophen 325 MG Oral Tablet Take 1 Tablet by mouth every 6 hours as needed. Active Famotidine 20 MG Oral Tablet Take 1 Tablet by mouth in the morning. Active Dutasteride 0.5 MG Oral Capsule (Avodart)Indica tions:BPH with obstruction/low er urinary tract symptoms Take 1 Capsule by mouth in the morning. 100 Capsule 3 11/21/19 10:41 AM EDT 023 Active Additional Information Patient taking differently:0.5 mg OralDAILY NOON, Reported on 07/04/2024 rOPINIRole HCl 0.5 MG Oral Tablet (Requip)Indicat ions:Restless legs syndrome Take 1 Tablet by mouth in the morning and 1 Tablet at noon and 1 Tablet before bedtime. With food. 300 Tablet 11/21/19 10:41 AM EDT 023 Active buPROPion HCl ER (SR) 150 MG Oral Tablet Extended Release 12 Hour (Wellbutrin SR)Indications: Tobacco use disorder Take 1 Tablet by mouth in the morning and 1 Tablet before bedtime. 200 Tablet 11/21/19 10:41 AM EDT 023 Active busPIRone HCl 5 MG Oral Tablet (Buspar)Indicat ions:Anxiety state Take 1 Tablet by mouth in the morning and 1 Tablet before bedtime. 200 Tablet 11/21/19 10:41 AM EDT 023 Active Ezetimibe 10 MG Oral Tablet (Zetia)Indicati ons:Dyslipidemi a, goal LDL below 70 TAKE ONE TABLET BY MOUTH DAILY 100 Tablet 11/21/19 10:41 AM EDT 023 Active Mirtazapine 15 MG Oral Tablet (Remeron)Indica tions:Anxiety state Take 1 Tablet by mouth at bedtime. 100 Tablet 11/21/19 10:41 AM EDT 023 Active Rosuvastatin Calcium 40 MG Oral Tablet (Crestor)Indica tions:HTN, goal below 140/90 Take 1 Tablet by mouth in the morning. 100 Tablet 3 03/31/20 24 6:45 AM EDT 024 Active Clopidogrel Bisulfate 75 MG Oral Tablet (pLAVix)Indicat ions:HTN, goal below 140/90 Take 1 Tablet by mouth in the morning. 100 Tablet 3 11/21/19 24 10:41 AM EDT 024 Active Tamsulosin HCl 0.4 MG Oral Capsule (Flomax) Take 1 Capsule by mouth in the morning. 90 Capsule 3 10/19/19 24 3:56 PM EDT 024 Active Additional Information Patient taking differently:0.4 mg OralDAILY NOON, Reported on 07/04/2024 Amiodarone HCl 200 MG Oral Tablet (Cordarone) Take 1 Tablet by mouth daily with breakfast. 30 Tablet 025 2024 Active Warfarin Sodium 1 MG Oral Tablet (Coumadin) Take tablet by mouth daily as directed by discharged instructions and the anticoagulation clinic. 30 Tablet 1 025 Active Pregabalin 75 MG Oral Capsule (Lyrica) Take 1 Capsule by mouth in the morning and 1 Capsule before bedtime. 60 Capsule Active Furosemide 40 MG Oral Tablet (Lasix) Take 1 Tablet by mouth in the morning. 30 Tablet 025 Active Potassium Chloride Joyce ER 10 MEQ Oral Tablet Extended Release Take 2 Tablets by mouth in the morning. 60 Tablet 025 2024 Active Carvedilol 3.125 MG Oral Tablet (Coreg) Take 1 Tablet by mouth 2 times a day with morning and evening meals. 60 Tablet 3 025 Active Febuxostat 40 MG Oral Tablet (Uloric) TAKE ONE TABLET BY MOUTH IN THE MORNING 100 Tablet 3 12/04/19 24 2:31 PM EDT 023 2024 Discontinued Aspirin 81 MG Oral Tablet Chewable take one tablet by mouth once a day with food 100 Tablet 5 11/21/19 24 10:41 AM EDT 023 2024 Discontinued Furosemide 20 MG Oral Tablet (Lasix)Indicati ons:Heart failure, systolic, due to CAD (HCC) take one pill by mouth once a day as needed for fluid accumulation or weight gain 100 Tablet 3 11/21/19 24 10:41 AM EDT 023 2024 Discontinued Isosorbide Mononitrate ER 60 MG Oral Tablet Extended Release 24 Hour (Imdur)Indicati ons:HTN, goal below 150/90,Chronic coronary artery disease,Heart failure, systolic, due to CAD (HCC),Old NV (myocardial infarction),Chr onic stable 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 100 Tablet 3 11/21/19 24 10:41 AM EDT 023 2024 Discontinued Nitroglycerin 0.4 MG Sublingual Tablet Sublingual (Nitrostat)Cynthia cations:Coronar y artery disease of washoe artery of washoe heart with stable angina pectoris (HCC) Place 1 Tablet under the tongue every 5 minutes as needed for Pain, Chest. 25 Tablet 3 11/21/19 24 10:41 AM EDT 023 2024 Discontinued Carvedilol 12.5 MG Oral Tablet (Coreg)Indicati ons:Chronic coronary artery disease,Heart failure, systolic, due to CAD (HCC) Take 1 Tablet by mouth in the morning and 1 Tablet before bedtime with food. 200 Tablet 3 11/21/19 24 10:41 AM EDT 024 2024 Discontinued amLODIPine Besylate 5 MG Oral Tablet (Norvasc)Indica tions:HTN, goal below 140/90 Take 1 Tablet by mouth in the morning. 100 Tablet 3 11/21/19 24 10:41 AM EDT 024 2024 Discontinued Spironolactone 25 MG Oral Tablet (Aldactone)Cynthia cations:HTN, goal below 140/90 Take one-half Tablets by mouth once a day on Sunday, Sunday, and Sunday only. 30 Tablet 3 11/21/19 24 10:41 AM EDT 024 2024 Discontinued Pregabalin 75 MG Oral Capsule (Lyrica)Indicat ions:Neuropathy take one capsule by mouth in morning and 2 capsules in afternoon 300 Capsule 1 11/21/19 24 12:21 PM EDT 024 2024 Discontinued Baclofen 10 MG Oral Tablet (Lioresal)Indic ations:Lumbar degenerative disc disease Take 1 Tablet by mouth in the morning and 1 Tablet at noon and 1 Tablet before bedtime. 300 Tablet 3 12/13/19 24 4:49 PM EDT 024 2024 Discontinued oxyCODONE HCl 5 MG Oral Tablet (Oxy IR)Indications: Lumbar degenerative disc disease Take 1 Tablet by mouth every 8 hours as needed for Pain, Severe. 21 Tablet 024 2024 Discontinued Lisinopril 40 MG Oral TabletIndicatio ns:HTN, goal below 150/90 Take 1 Tablet by mouth in the morning. 100 Tablet 1 03/31/20 24 6:45 AM EDT 024 2024 Discontinued Apixaban 5 MG Oral Tablet (Eliquis) Take 1 Tablet by mouth in the morning and 1 Tablet before bedtime. 60 Tablet 6 024 2024 Discontinued Enoxaparin Sodium 60 MG/0.6ML Injection Solution Prefilled Syringe (Lovenox)Indica tions:Cerebrova scular disease, arterioscleroti c, post-stroke,LV (left ventricular) mural thrombus Inject 60 mg under the skin in the morning and 60 mg before bedtime. Starting 07/05/24. 3 mL 024 2024 Discontinued Aspirin 325 MG Oral Tablet Delayed Release Take 1 Tablet by mouth in the morning. 2024 Discontinued documented as of this encounter (statuses as of 07/16/2024) Active Problems Problem Noted Date Diagnosed Date S/P CABG x 4 07/08/2024 Coronary artery disease invo lving washoe coronary artery of washoe heart with unstable angina pectoris 07/03/2024 Vitamin [...] h autonomic neuropathy 08/17/2023 09/17/2023 Atherosclerosis of washoe co ronary artery without angina pectoris 08/17/2023 [...] Sign Reading Time Taken Comments Blood Pressure 93/65 07/15/2024 12:00 PM EST Pulse 67 07/15/2024 12:00 PM EST Temperature 37 C (98.6 F) 07/15/2024 12: 00 PM EST Respiratory Rate 11 07/15/2024 12:0 0 PM EST Oxygen Saturation 97% 07/15/2024 12: 00 PM EST Inhaled Oxygen Concentration - - Weight 71.6 kg (157 lb 13.6 oz) 07/15/2024 4:00 AM EST Height 175.3 cm (5' 9") 07/08/2024 5:31 AM EST Body Mass Index 23.31 07/08/2024 5:31 AM EST documented in this encounter Discharge Instructions * Discharge Instr - AVS* Noa Go PA-C - 07/11/2024 10:35 AM EST Discharge Date: 07/15/23 You may call of the department of Cardiothoracic Surgery at [phone] during business hours for any questions or test results. After hours emergencies: Call [phone] and have theCardiothoracic Surgery service paged. The information below provides you with the instructions and the list of medications you need to betaking following discharge from the hospital. If you have any questions, please ask before leaving.Please carry this letter with you when you see your doctor in the clinic. If you have questions, you can reach us at the numbers above. Brief summary of your inpatient care: You underwent coronary artery bypass graft surgery x 4, usingveins from your leg. You had atrial fibrillation post-op that resolved but you were discharged on amio . You also had urinary retention that resolved. Your doctors during this hospitalization included: Your primary diagnosis at discharge was s/p CABGx4. Inpatient test results pending: None Operations & Procedures: CABG X 4 CAN to LAD SVG to DIAG, OM, PDA Complications: none significant Advance Directive Documented: Advance Directive Does the Patient have an Advance Directive? No Diet: Previous diet Activity: No strenuous activity for 8 weeks and No lifting or pushing or pulling more than 10 lbs for 8-10 weeks Driving: Do not drive until cleared to do so by your surgeon at your 1 month follow-up visit . Date you may return to work or school: N/A See your primary care physician (Leon Calle DO) in 1-2 weeks. Follow-up with: Follow-up with cardiac surgery PA in 1 week, cardiac surgery in 1 month, cardiologyin 4-6 weeks, and your primary care doctor in 2 weeks. These appointments have been requested for you. Routine wound/surgical site care: Soap and water, open to air. If skin glue present, some will peeloff on its own- you may peel it off completely in 1 week. Continue to wash over it daily. Remove any Band-Aids or dressing and CHANGE daily if needed. Watch for signs of infections: including increased redness, swelling, drainage, opening of either your sternal incision or leg incision, fever or chills. If this occurs call the office number above immediately and a surgeon or PA will see you immediately. Wear your LEONIDAS stockings or SIMA wraps during the day and remove at night. This helps to prevent tension on your incisions and prevents swelling. Weigh Yourself daily: You should SHOWER daily. Use soap and water on your incisions. DO NOT take tub baths. Medications: Prescriptions that are given without refills are only required for 30 days. Other Special Instructions: Rehab: see anticoagulation for coumadin instructions You will receive a call from the Cardiac Rehab to schedule your Consultation. If not arranged by the time of your post-op follow-up visit, please let your surgical team know and this can be arranged. If you feel suicidal or homicidal, please call the crisis hotline at [phone] ([phone]). * Pharmacy Instr - AVS* [facility] - 07/08/2024 7:50 PM EST Warfarin dosing instructions for after discharge: You will receive a prescription for Warfarin 1 mg tablets. DO NOT USE ELIQUIS WHILE YOU ARE ON WARFARIN. Please take the following doses of warfarin by mouth after Discharge: Date Dose using warfarin 1 mg Tablets Saturday 07/15 TAKE NO DOSE Sunday 07/16 INR at facility [facility] will be responsible for checking your INR and dosing the warfarin while you are admitted. Once you are discharged from the [facility], please reach out to the [facility] at the number below. If you have any questions regarding your anticoagulation therapy, please Contact Anticoagulation Clinic at [phone] or . Please share the following information with your provider: You were started on WARFARIN for Treatment of LV thrombus (INR goal 2-3) Your Anticipated Duration of Therapy: [address] Surgery service will decide at your follow-up appointment if you may switch back to Eliquis. Because you have been placed on a blood thinner, your therapy will need to be monitored on a regular basis. You will have your Anticoagulation Managed By: Anticoagulation Clinic . While you were in the hospital, you medication doses received and your corresponding labs were: INR Date/Time Value Ref Range Status 07/15/2024 04:29 AM 3.0 (H) 0.8 - 1.2 Final 07/14/2024 03:43 AM 2.2 (H) 0.8 - 1.2 Final 07/13/2024 04:43 AM 2.2 (H) 0.8 - 1.2 Final HGB Date/Time Value Ref Range Status 07/15/2024 04:30 AM 10.0 (L) 14.0 - 16.8 g/dL Final HCT Date/Time Value Ref Range Status 07/15/2024 04:30 AM 30.4 (L) 40.0 - 48.4 % Final PLT Date/Time Value Ref Range Status 07/15/2024 04:30 AM 220 140 - 400 K/uL Final Warfarin Administrations (last 720 hours) Date/Time Action Medication Dose 07/14/24 1940 Given Warfarin Sodium (Coumadin) tab 2 mg 2 mg 07/13/24 2100 Given Warfarin Sodium (Coumadin) tab 2 mg 2 mg 07/12/24 2106 Given Warfarin Sodium (Coumadin) tab 1 mg 1 mg 07/10/24 2114 Given Warfarin Sodium (Coumadin) tab 1 mg 1 mg 07/09/24 194 Given Warfarin Sodium (Coumadin) tab 2.5 mg 2.5 mg documented in this encounter Progress Notes * [facility] - 07/15/2024 8:14 AM EST PHARMACY ANTICOAGULATION WARFARIN (Coumadin) Assessment [address] [address] Name: Henri Vigil Location: [facility] [place] H760/A Date: 07/15/2024 Time: 8:14 AM Henri Vigil is a 73 year old male admitted for 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 Pharmacy was consulted for warfarin dosingand monitoring. 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 Episode Summary Current INR goal: -- TTR: -- Next INR check: 07/11/2024 INR from last check: 1.4 (07/10/2024) Most recent INR: 3.0 (07/15/2024) Weekly max warfarin dose: -- Target end date: 07/08/2024 INR check location: -- Preferred lab: -- Send INR reminders to: -- Indications 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) [I25.110] S/P CABG x 4 [Z95.1] Comments: -- Anticoagulation Care Providers Provider Role Specialty Phone number Jayden Mejias MD Referring Thoracic and Cardiac Surgery [phone] Noa Go PA-C Referring Physician Paralegal Instructor [phone] Labs INR Date/Time Value Ref Range Status 07/15/2024 04:29 AM 3.0 (H) 0.8 - 1.2 Final 07/14/2024 03:43 AM 2.2 (H) 0.8 - 1.2 Final 07/13/2024 04:43 AM 2.2 (H) 0.8 - 1.2 Final HGB Date/Time Value Ref Range Status 07/15/2024 04:30 AM 10.0 (L) 14.0 - 16.8 g/dL Final HCT Date/Time Value Ref Range Status 07/15/2024 04:30 AM 30.4 (L) 40.0 - 48.4 % Final PLT Date/Time Value Ref Range Status 07/15/2024 04:30 AM 220 140 - 400 K/uL Final Objective Warfarin Administrations (last 720 hours) Date/Time Action Medication Dose 07/14/24 194 Given Warfarin Sodium (Coumadin) tab 2 mg 2 mg 07/13/242099 Given Warfarin Sodium (Coumadin) tab 2 mg 2 mg 07/12/242105 Given Warfarin Sodium (Coumadin) tab 1 mg 1 mg 07/10/242113 Given Warfarin Sodium (Coumadin) tab 1 mg 1 mg 07/09/241941 Given Warfarin Sodium (Coumadin) tab 2.5 mg 2.5 mg Assessment & Plan Assessment Dietary Assessment: Minimal/decreased PO intake Today's INR : Therapeutic Does the patient have any medication interactions: Yes Please comment: ASA, Plavix, Amiodarone 200 mg TID Are there bleeding concerns with the patient: No Does the patient have any upcoming procedures: No Plan Warfarin Plan: Hold Warfarin Specify Warfarin Dose: 0 mg Is the patient receiving a Bridging Agent: No Warfarin Patient Education : [facility] PharmD, BCPS, BCCP, BCCCP, CACP Electronically signed by [facility] at 07/15/2024 8:15 AM EST * [facility] RPh - 07/14/2024 2:59 PM EST PHARMACY ANTICOAGULATION WARFARIN (Coumadin) Assessment [address] [address] Name: Henri Vigil Location: [facility] [place] H760/A Date: 07/14/2024 Time: 2:59 PM Henri Vigil is a 73 year old male admitted for 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 Pharmacy was consulted for warfarin dosingand monitoring. 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 Episode Summary Current INR goal: -- TTR: -- Next INR check: 07/11/2024 INR from last check: 1.4 (07/10/2024) Most recent INR: 2.2 (07/14/2024) Weekly max warfarin dose: -- Target end date: 07/08/2024 INR check location: -- Preferred lab: -- Send INR reminders to: -- Indications 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) [I25.110] S/P CABG x 4 [Z95.1] Comments: -- Anticoagulation Care Providers Provider Role Specialty Phone number Jayden Mejias MD Referring Thoracic and Cardiac Surgery [phone] Noa Go PA-C Referring Physician Paralegal Instructor [phone] Labs INR Date/Time Value Ref Range Status 07/14/2024 03:43 AM 2.2 (H) 0.8 - 1.2 Final 07/13/2024 04:43 AM 2.2 (H) 0.8 - 1.2 Final 07/12/2024 04:40 AM 2.5 (H) 0.8 - 1.2 Final HGB Date/Time Value Ref Range Status 07/14/2024 03:43 AM 10.2 (L) 14.0 - 16.8 g/dL Final HCT Date/Time Value Ref Range Status 07/14/2024 03:43 AM 31.1 (L) 40.0 - 48.4 % Final PLT Date/Time Value Ref Range Status 07/14/2024 03:43 AM 188 140 - 400 K/uL Final Objective Warfarin Administrations (last 720 hours) Date/Time Action Medication Dose 07/13/24 2100 Given Warfarin Sodium (Coumadin) tab 2 mg 2 mg 07/12/24 210 Given Warfarin Sodium (Coumadin) tab 1 mg 1 mg 07/10/24 211 Given Warfarin Sodium (Coumadin) tab 1 mg 1 mg 07/09/24 1942 Given Warfarin Sodium (Coumadin) tab 2.5 mg 2.5 mg Assessment & Plan Assessment Dietary Assessment: Minimal/decreased PO intake Today's INR : Therapeutic Does the patient have any medication interactions: Yes Please comment: ASA, Plavix, Amiodarone 200 mg TID Are there bleeding concerns with the patient: No Does the patient have any upcoming procedures: No Plan Warfarin Plan: Give Warfarin Specify Warfarin Dose: 2 mg Is the patient receiving a Bridging Agent: No Warfarin Patient Education : Silas Meadows PharmD, BCPS, BCCP, BCCCP, CACP Electronically signed by [facility] at 07/14/2024 2:59 PM EST * Alba Gu, Shahab Carpenter, [facility] - 07/13/2024 2:37 PM EST PHARMACY MEDICATION TEACHING CONSULT WARFARIN [address] [address] Name: Henri Vigil Location: [facility] H760/A Date: 07/13/2024 Time: 2:36 PM Requesting Service: Cardiac Surgery Reason for Warfarin Consult: Left Ventricular Thrombus Patient Active Problem List Diagnosis Tobacco use disorder BPH without obstruction/lower urinary tract symptoms Esophageal reflux Dyslipidemia, goal LDL below 70 Heart failure, systolic, due to CAD ([facility]) Old NV (myocardial infarction) Pulmonary nodule Gout Restless legs syndrome Cognitive changes Cerebrovascular disease, arteriosclerotic, post-stroke Prediabetes Right renal mass COPD, group D, by GOLD 2017 classification ([facility]) Anxiety state Coronary artery disease with stable angina pectoris ([facility]) Lumbar degenerative disc disease HTN, goal below 140/90 Vitamin B 12 deficiency Coronary artery disease involving washoe coronary artery of washoe heart with unstable angina pectoris ([facility]) S/P CABG x 4 Family member(s) present: Daughter(s) and Grandson Patient agreed to allow visitors to attend teaching, if present. Teaching points covered with patient and/or family: Route, Dosage Form and Schedule (Including importance of taking medication as instructed), Medication Intended Use/Action, Precautions to be Observed while using this Medication, Commonly Encountered Adverse Effects (Including risk of bleeding andpotential signs and symptoms), Methods for Self-Monitoring, Laboratory Monitoring (Including compliance with INR monitoring), Potential Drug Interactions (Including medications and dietary changes that potentially affect the INR and interactions with [id number] medications), Therapeutic Contraindications, Potential Food Interactions (Including information about a consistent intake of vitamin K containing foods and the importance of notifying health care provider if any significant changesin their diet), Designated Handout(s) Provided, Follow-up Monitoring (Including review of plans forpost-discharge monitoring and follow-up), Prescription Refill Information, Action for a Missed Dose, and Patient Specific Information Written documentation regarding all of the teaching points was provided to the patient and/or family members present. Patient accepted Coumadin education booklet and/or Clinical Pharmacology warfarin patient educationsheet. Assessment of teaching effectiveness: Excellent. All teaching points above were covered with no difficulties Plan if patient encounters questions later: Contact Anticoagulation Clinic at [phone] or Length of teaching: Brief (less than 15 minutes) Teaching completed according to pharmacy teaching standard 508. 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 Pharmacy was consulted for warfarin dosingand monitoring. 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) [I25.110] S/P CABG x 4 [Z95.1] Comments: -- Anticoagulation Care Providers Provider Role Specialty Phone number Jayden Mejias MD Referring Thoracic and Cardiac Surgery [phone] Noa Go PA-C Referring Physician Paralegal Instructor [phone] Labs INR Date/Time Value Ref Range Status 07/13/2024 04:43 AM 2.2 (H) 0.8 - 1.2 Final 07/12/2024 04:40 AM 2.5 (H) 0.8 - 1.2 Final 07/11/2024 04:10 AM 2.5 (H) 0.8 - 1.2 Final HGB Date/Time Value Ref Range Status 07/13/2024 04:43 AM 10.0 (L) 14.0 - 16.8 g/dL Final HCT Date/Time Value Ref Range Status 07/13/2024 04:43 AM 30.4 (L) 40.0 - 48.4 % Final PLT Date/Time Value Ref Range Status 07/13/2024 04:43 AM 153 140 - 400 K/uL Final Objective Warfarin Administrations (last 720 hours) Date/Time Action Medication Dose 07/12/242105 Given Warfarin Sodium (Coumadin) tab 1 mg 1 mg 07/10/242113 Given Warfarin Sodium (Coumadin) tab 1 mg 1 mg 07/09/241941 Given Warfarin Sodium (Coumadin) tab 2.5 mg 2.5 mg Assessment & Plan Assessment Dietary Assessment: Minimal/decreased PO intake Today's INR : Therapeutic Does the patient have any medication interactions: Yes Please comment: Aspirin, Amiodarone, Plavix Are there bleeding concerns with the patient: No Does the patient have any upcoming procedures: No Plan Warfarin Plan: Give Warfarin Specify Warfarin Dose: 2 mg Is the patient receiving a Bridging Agent: No Warfarin Patient Education : Incomplete Shahab Willis Jr, RP * Shahab Willis Jr., RPh - 07/12/2024 1:38 PM EST PHARMACY ANTICOAGULATION WARFARIN (Coumadin) Assessment [address] [address] Name: Henri Vigil Location: [facility] [place] H760/A Date: 07/12/2024 Time: 1:38 PM Henri Vigil is a 73 year old male admitted for 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 Pharmacy was consulted for warfarin dosingand monitoring. Anticoagulation Therapy Goals Stroke Prevention: Treatment of LV thrombus (2-3) VTE: Other . Please specify range . 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) [I25.110] S/P CABG x 4 [Z95.1] Comments: -- Anticoagulation Care Providers Provider Role Specialty Phone number Jayden Mejias MD Referring Thoracic and Cardiac Surgery [phone] Noa Go PA-C Referring Physician Paralegal Instructor [phone] Labs INR Date/Time Value Ref Range Status 07/12/2024 04:40 AM 2.5 (H) 0.8 - 1.2 Final 07/11/2024 04:10 AM 2.5 (H) 0.8 - 1.2 Final 07/10/2024 03:48 AM 1.4 (H) 0.8 - 1.2 Final HGB Date/Time Value Ref Range Status 07/12/2024 04:40 AM 8.8 (L) 14.0 - 16.8 g/dL Final HCT Date/Time Value Ref Range Status 07/12/2024 04:40 AM 26.6 (L) 40.0 - 48.4 % Final PLT Date/Time Value Ref Range Status 07/12/2024 04:40 AM 130 (L) 140 - 400 K/uL Final Objective Warfarin Administrations (last 720 hours) Date/Time Action Medication Dose 07/10/242113 Given Warfarin Sodium (Coumadin) tab 1 mg 1 mg 07/09/241941 Given Warfarin Sodium (Coumadin) tab 2.5 mg 2.5 mg Assessment & Plan Assessment Dietary Assessment: Minimal/decreased PO intake Today's INR : Therapeutic Does the patient have any medication interactions: Yes Please comment: Aspirin, Amiodarone, Plavix Are there bleeding concerns with the patient: No Does the patient have any upcoming procedures: No Plan Warfarin Plan: Give Warfarin Specify Warfarin Dose: 1 mg Is the patient receiving a Bridging Agent: No Warfarin Patient Education : Incomplete Shahab Willis Jr, [facility] located [facility] Electronically signed by Shahab Willis Jr. [facility] at 07/12/2024 1:38 PM EST * 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 Pharmacy was consulted for warfarin dosingand monitoring. Anticoagulation Therapy Goals VTE: Other apical thrombus. Please specify range 2-3. 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) [I25.110] S/P CABG x 4 [Z95.1] Comments: -- Anticoagulation Care Providers Provider Role Specialty Phone number Jayden Mejias MD Referring Thoracic and Cardiac Surgery [phone] Noa Go PA-C Referring Physician Paralegal Instructor [phone] Labs INR Date/Time Value Ref Range Status 07/11/2024 04:10 AM 2.5 (H) 0.8 - 1.2 Final 07/10/2024 03:48 AM 1.4 (H) 0.8 - 1.2 Final 07/09/2024 03:53 AM 1.2 0.8 - 1.2 Final HGB Date/Time Value Ref Range Status 07/11/2024 04:10 AM 9.9 (L) 14.0 - 16.8 g/dL Final HCT Date/Time Value Ref Range Status 07/11/2024 04:10 AM 29.2 (L) 40.0 - 48.4 % Final PLT Date/Time Value Ref Range Status 07/11/2024 04:10 AM 96 (L) 140 - 400 K/uL Final Objective Warfarin Administrations (last 720 hours) Date/Time Action Medication Dose 07/10/242113 Given Warfarin Sodium (Coumadin) tab 1 mg 1 mg 07/09/241941 Given Warfarin Sodium (Coumadin) tab 2.5 mg 2.5 mg Assessment & Plan Assessment Dietary Assessment: Minimal/decreased PO intake Today's INR : Therapeutic Does the patient have any medication interactions: Yes Please comment: ASA, Amiodarone, Plavix Are there bleeding concerns with the patient: No Does the patient have any upcoming procedures: No Plan Warfarin Plan: Hold Warfarin Specify Warfarin Dose: 0 mg Is the patient receiving a Bridging Agent: No Warfarin Patient Education : Silas Meadows PharmD, BCPS, BCCP, BCCCP, CACP Electronically signed by 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 Pharmacy was consulted for warfarin dosingand monitoring. Anticoagulation Therapy Goals SVTE: Other Apical Thrombus. Please specify range 2-3. 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) [I25.110] S/P CABG x 4 [Z95.1] Comments: -- Anticoagulation Care Providers Provider Role Specialty Phone number Jayden Mejias MD Referring Thoracic and Cardiac Surgery [phone] Noa Go PA-C Referring Physician Paralegal Instructor [phone] Labs INR Date/Time Value Ref Range Status 07/10/2024 03:48 AM 1.4 (H) 0.8 - 1.2 Final 07/09/2024 03:53 AM 1.2 0.8 - 1.2 Final 07/08/2024 12:32 PM 1.1 0.8 - 1.2 Final HGB Date/Time Value Ref Range Status 07/10/2024 03:48 AM 9.4 (L) 14.0 - 16.8 g/dL Final HCT Date/Time Value Ref Range Status 07/10/2024 03:48 AM 28.5 (L) 40.0 - 48.4 % Final PLT Date/Time Value Ref Range Status 07/10/2024 03:48 AM 89 (L) 140 - 400 K/uL Final Objective Warfarin Administrations (last 720 hours) Date/Time Action Medication Dose 07/09/241941 Given Warfarin Sodium (Coumadin) tab 2.5 mg 2.5 mg Assessment & Plan Assessment Dietary Assessment: Minimal/decreased PO intake Today's INR : Subtherapeutic Does the patient have any medication interactions: Yes Please comment: ASA, Amiodarone infusion/boluses/400mg TID, Plavix Are there bleeding concerns with the patient: No Does the patient have any upcoming procedures: No Plan Warfarin Plan: Give Warfarin Specify Warfarin Dose: 1 mg Is the patient receiving a Bridging Agent: No Warfarin Patient Education : Silas Meadows, NamrataD, BCPS, BCCP, BCCCP, CACP * Jacquie Meadows RPh - 07/09/2024 11:39 AM EST PHARMACY ANTICOAGULATION WARFARIN (Coumadin) Assessment [address] [place] [address] Name: Henri Vigil Location: [facility] [place] H760/A Date: 07/09/2024 Time: 11:39 AM Henri Vigil is a 73 year old male admitted for 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 Pharmacy was consulted for warfarin dosingand monitoring. 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) [I25.110] S/P CABG x 4 [Z95.1] Comments: -- Anticoagulation Care Providers Provider Role Specialty Phone number Jayden Mejias MD Referring Thoracic and Cardiac Surgery [phone] Noa Go PA-C Referring Physician Paralegal Instructor [phone] Labs INR Date/Time Value Ref Range Status 07/09/2024 03:53 AM 1.2 0.8 - 1.2 Final 07/08/2024 12:32 PM 1.1 0.8 - 1.2 Final 07/08/2024 09:50 AM 1.3 (H) 0.8 - 1.2 Final HGB Date/Time Value Ref Range Status 07/09/2024 03:53 AM 9.1 (L) 14.0 - 16.8 g/dL Final HCT Date/Time Value Ref Range Status 07/09/2024 03:53 AM 26.8 (L) 40.0 - 48.4 % Final PLT Date/Time Value Ref Range Status 07/09/2024 03:53 AM 120 (L) 140 - 400 K/uL Final Objective Warfarin Administrations (last 720 hours) None Assessment & Plan Assessment Dietary Assessment: Normal/expected PO intake Today's INR : Subtherapeutic Does the patient have any medication interactions: Yes Please comment: ASA, Amiodarone infusion/multiple boluses/400mg TID, Plavix, Heparin subQ Are there bleeding concerns with the patient: No Does the patient have any upcoming procedures: No Plan Warfarin Plan: Give Warfarin Specify Warfarin Dose: 2.5 mg Is the patient receiving a Bridging Agent: No Warfarin Patient Education : Namrata Del RosarioD, BCPS, BCCP, BCCCP, CACP Electronically signed by [facility] at 07/09/2024 11:39 AM EST documented in this encounter H&P Notes * Eder Moraes PA-C - 07/03/2024 3:01 PM EST "HISTORY AND PHYSICAL EXAMINATION - [facility] Name: Henri Vigil Date: 07/03/2024 Time: 0840 Pre charting done by Yair Conner PA-C in efficiency of seeing patient and updated by LIZZETTE Grajead REFERRING PHYSICIAN: Poncho Robledo DO PCP: Leon Calle DO RES HABILITATION ASSISTANT: Poncho Robledo DO Preference for return visit: [facility] [place] Follow up with telephone or video visit at one week. 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 TTE 06/30/24 shows a reduced EF 35% which is down from 1-year prior of 45% and a small apical laminar thrombus for which he was started on Eliquis with last dose today. He is also on plavix for his CVA history. Today, he reports ongoing chest pain that is more constant in nature. He states it began 2 weeks ago and has not worsened but has increased in frequency. He reports chest pain with any activity including walking and performing ADLs. He states it gets better with rest, but now he is having more frequent episodes at rest that just go away with time. He states that the pain begins substernal and radiates to the left upper chest, no radiation into the neck or down his arm. He reports the pain as either dull pressure or an ache of pressure with activity. He reports associated MATHIS. He denies SOB while at rest and also denies palpitations. He reports he has had progressively worsened fatigue throughout the duration of this 2-weeks of chest pain. His appetite is poor as well but this has been ongoing for some time. He does report chronic history of difficulty with swallowing and attributes thisto his Lowe's esophagus and GERD. He lives at home with his family and prior to these episodes of chest pain was able to perform ADLsindependently. He ambulates without assistance. He denies fever, chills, N/V, constipation, diarrhea, dysuria. States he knows he needs surgery now. Per cardiology note 06/17/2024- Presents today feeling poor. Endorsing chest pain, dyspnea and also headaches, although headaches appear to be unrelated to the chest pain. Of note, patient had undergone a nuclear stress test Jul 1013 which was negative for active ischemia, but does demonstrates a large area of apical scar with wall motion abnormalities in the apical anterior, apex and apical inferior. Patient states that the pain has become worse over the past few weeks, it will wake him from a sleep as a heavy pressure. He will experience this same squeezing pressure when taking the trash out. Accompanied with shortness of breath. Resolves in approx 5 minutes with rest. This is happening several times per day [place] Heart Failure Classification: Class III (Moderate) Current Medications Current Outpatient Medications Medication Sig Dispense Refill [...] 1 Tablet by mouth in the morning. Aspirin 81 MG Oral Tablet Chewable take one tablet by mouth once a day with food 100 Tablet 5 Dutasteride 0.5 MG Oral Capsule (Avodart) Take 1 Capsule by mouth in the morning. (Patient taking differently: Take 1 Capsule by mouth daily at noon.) 100 Capsule 3 Furosemide 20 MG Oral Tablet (Lasix) take one pill by mouth once a day as needed for fluid accumulation or weight gain 100 Tablet 3 rOPINIRole HCl 0.5 MG Oral Tablet (Requip) Take 1 Tablet by mouth in the morning and 1 Tablet at noon and 1 Tablet before bedtime. With food. (Patient taking differently: Take 1 Tablet by mouth in the morning and 1 Tablet in the evening. Takes at 12 noon and at bedtime.) 300 Tablet 3 buPROPion HCl ER (SR) 150 MG Oral Tablet Extended Release 12 Hour (Wellbutrin SR) Take 1 Tablet by mouth in the morning and 1 Tablet before bedtime. 200 Tablet 3 busPIRone HCl 5 MG Oral Tablet (Buspar) Take 1 Tablet by mouth in the morning and 1 Tablet before bedtime. 200 Tablet 3 Isosorbide Mononitrate ER 60 MG Oral Tablet Extended Release 24 Hour (Imdur) Take 1 Tablet by mouthin the morning. 100 Tablet 3 Ezetimibe 10 MG Oral Tablet (Zetia) TAKE ONE TABLET BY MOUTH DAILY 100 Tablet 3 Nitroglycerin 0.4 MG Sublingual Tablet Sublingual (Nitrostat) Place 1 Tablet under the tongue every5 minutes as needed for Pain, Chest. 25 Tablet 3 Mirtazapine 15 MG Oral Tablet (Remeron) Take 1 Tablet by mouth at bedtime. 100 Tablet 3 Carvedilol 12.5 MG Oral Tablet (Coreg) Take 1 Tablet by mouth in the morning and 1 Tablet before bedtime with food. 200 Tablet 3 amLODIPine Besylate 5 MG Oral Tablet (Norvasc) Take 1 Tablet by mouth in the morning. 100 Tablet 3 Rosuvastatin Calcium 40 MG Oral Tablet (Crestor) Take 1 Tablet by mouth in the morning. 100 Tablet 3 Clopidogrel Bisulfate 75 MG Oral Tablet (pLAVix) Take 1 Tablet by mouth in the morning. 100 Tablet 3 Spironolactone 25 MG Oral Tablet (Aldactone) Take one-half Tablets by mouth once a day on Sunday, Sunday, and Sunday only. 30 Tablet 3 Tamsulosin HCl 0.4 MG Oral Capsule (Flomax) Take 1 Capsule by mouth in the morning. (Patient takingdifferently: Take 1 Capsule by mouth daily at noon.) 90 Capsule 3 Pregabalin 75 MG Oral Capsule (Lyrica) take one capsule by mouth in morning and 2 capsules in afternoon 300 Capsule 1 Baclofen 10 MG Oral Tablet (Lioresal) Take 1 Tablet by mouth in the morning and 1 Tablet at noon and 1 Tablet before bedtime. 300 Tablet 3 oxyCODONE HCl 5 MG Oral Tablet (Oxy IR) Take 1 Tablet by mouth every 8 hours as needed for Pain, Severe. 21 Tablet 0 Lisinopril 40 MG Oral Tablet Take 1 Tablet by mouth in the morning. 100 Tablet 1 Current Facility-Administered Medications Medication Dose Route Frequency Provider Last Rate Last Admin vitamin b-12 (Cyanocobalamin) inj 1,000 mcg 1,000 mcg Intramuscular Q4 Weeks Leon Calle DO 1,000 mcg at 06/16/24 1045 ALLERGIES: Allergies Codeine PAST MEDICAL HISTORY: Past Medical History Past Medical History: Diagnosis Date Lowe's esophagus without dysplasia 2015 Chronic coronary artery disease 08/28/2002 Conductive hearing loss Hearing loss, conductive COPD, mild (HCC) 05/24/2005 COPD, severity to be determined (HCC) Coronary atherosclerosis of washoe coronary artery Heart attack (HCC) Jun 2012 Heart failure, systolic, due to CAD (HCC) 09/08/2013 HTN, goal below 140/90 12/02/2021 Lumbar degenerative disc disease 11/30/2021 Old NV (myocardial infarction) 09/08/2013 Stroke ([facility]) 09/2015 "3 mini strokes" [facility], rehab at [facility] PAST SURGICAL HISTORY: Past Surgical History Past Surgical History: Procedure Laterality Date COLONOSCOPY, DIAGNOSTIC (RECTUM) 11/25/2021 COLONOSCOPY FLEXIBLE PROXIMAL DIAGNOSTIC performed by Ryann Damon MD at ENDOSCOPY [facility] COLONOSCOPY, DIAGNOSTIC (RECTUM) N/A 10/20/2022 hemorrhoids/colonoscopy/[place] CYSTOSCOPY 11/07/2005 trus measurement EGD, FLEXIBLE, DIAGNOSTIC 09/08/2015 Barretts, Schatzki ring, repeat 1 yr/[facility] EGD, FLEXIBLE, DIAGNOSTIC 10/17/2016 Barretts, repeat 2 yrs/[facility] EGD, FLEXIBLE, DIAGNOSTIC 01/15/2019 Lowe's esophagitis, hiatal hernia, repeat 2 yrs/[facility] EGD, FLEXIBLE, DIAGNOSTIC 07/15/2021 Barretts, repeat 2 yrs / ESOPHAGOGASTRODUODENOSCOPY (EGD), FLEXIBLE, TRANSORAL, DIAGNOSTIC performed by Ryann Damon MD at ENDOSCOPY [facility] EGD, FLEXIBLE, DIAGNOSTIC N/A 10/20/2022 biopsies from esophagus show mild reflux/EGD/[place] EVAL NEUROSTIM PULSE GEN, W/ REPROGRAM 05/08/2024 NEUROSTIMULATOR PULSE GENERATOR/ TRANSMITTER, WITH INTRAOPERATIVE OR SUBSEQUENT PROGRAMMING performed by Maged Monreal DO at OR [facility] IMPLANT EPIDURAL NEUROELECTRODES 05/08/2024 PERCUTANEOUS IMPLANTATION NEUROSTIMULATOR EPIDURAL performed by Maged oMnreal DO at OR [facility] IMPLANT EPIDURAL NEUROELECTRODES 05/08/2024 PERCUTANEOUS IMPLANTATION NEUROSTIMULATOR EPIDURAL performed by Maged Monreal DO at OR [facility] INJECT DX/THER SUBSTANCE INTERLAMINAR LUMBAR/SACRAL W IMAGE GUIDE 07/19/2017 INJECTION SPINE LUMBAR OR SACRAL performed by Donavon Conklin DO at OR [facility] MISCELLANEOUS ORDER (HS ONLY) Right 11/12/2019 REINHEIMER- LATERAL TARSAL STRIP NONE 11/06/2004 heart attack, [place] NONE ? heart catherization, [place] NONE ? back surgery, [place] OTHER LAD stent 10/08/04,Plavix until 10/08/05 PROSTATE, LASER VAPORIZATION 11/22/2005 TULIP SACROILIAC JOINT INJECT W/GUIDANCE 09/03/2017 INJECTION SACROILIAC JOINT performed by Donavon Conklin, DO at OR [facility] SACROILIAC JOINT INJECT W/GUIDANCE 10/25/2017 INJECTION SACROILIAC JOINT performed by Donavon Conklin, DO at OR [facility] SPINAL FUSION, LUMBAR, COMBINED 2012 Fusion L4? Hx of vein harvest or stripping?: no SOCIAL HISTORY: Active smoker 2 cigarettes per day, retired, lives with Family, performs ADLs and ambulates independently Drug Use: never Social History Social History Tobacco Use Smoking status: Every Day Current packs/day: 0.50 Average packs/day: 0.5 packs/day for 59.0 years (29.5 ttl pk-yrs) Types: Cigarettes Start date: 1965 Passive exposure: Current Smokeless tobacco: Never Tobacco comments: 2 cigarettes/day Vaping Use Vaping status: Never Used Substance Use Topics Alcohol use: No Drug use: No FAMILY HISTORY: Long family hx of CAD Family History Family History Problem Relation Name Age of Onset Heart Disorder Father NV Heart Disorder Mother NV Heart Disorder Brother Heart Disorder Brother Cancer Brother Stroke Brother Hyperlipidemia Brother No Past Hx Daughter No Past Hx Daughter Heart Disorder Brother NV Heart Disorder Brother NV No Past Hx Son Depression Sister Asthma Sister COPD Sister Family History of premature CAD: yes REVIEW OF SYSTEMS: Constitutional: denies weight loss, denies fever, denies shaking chills Eyes: cataracts removed, denies double vision , denies blurred vision , denies cataracts, denies visual spots Ear, nose and throat: reports trouble swallowing (hx of Barretts Esophagus), denies trouble swallowing, denies epistaxis Dental: poor dentition Cardiac: see HPI (old NV 2011), new small apical laminar thrombus started on Eliquis 06/30/24 Vascular: no claudication Respiratory: dyspnea on exertion (MATHIS), cough, feels tired, fatigued, or sleepy during daytime, Hx of COPD on multiple inhalers, denies O2 use at home Genitourinary: Hx of BPH on multiple agents, nocturia, denies dysuria, denies hematuria, denies diminished stream, denies frequency Musculoskeletal: denies joint pain Psychiatric: depression Skin: denies rash, denies non-healing ulcers, denies jaundice Neurologic: CVA 2016 on Plavix. Residual LLE weakness, denies trouble speaking, denies syncope Endocrine: denies constant thirst, denies constant hunger, denies constant urinating Hematologic / Lymphatic: denies blood clotting problems, denies anemia, denies bruising Immunologic: denies trouble fighting infections CARDIOTHORACIC COMPLETE PHYSICAL EXAM: Most Recent Vital Signs: Height: 66"; Weight: 151.6lbs; SpO2 97% on RA; HR 68; BP 156/98 PHYSICAL EXAM: General: no acute distress, alert and oriented, stated age, and clubbing Head: normocephalic, no masses, lesions, tenderness or abnormalities Eyes: conjunctiva are pink and non-injected, sclera clear, PERRLA, EOMI Nose: normal Teeth: periodontal disease suspected Neck: supple, no adenopathy, no bruits, thyroid normal size, non-tender, without nodularity Chest: normal shape and normal respiratory effort Lungs: lungs clear to auscultation, decreased breath sounds, and expiratory wheezes bilaterally Cardiac Exam: regular rate & rhythm no murmurs gallops or rubs - normal S1, normal S2 Pulses: The following pulses are normal: carotids, radials, dorsalis pedis pulses, and posterior tibials Abdomen: abdomen soft, non-tender, no abnormal masses, no hepatosplenomegaly, and normal active bowel sounds Extremities: no edema and clubbing present Neuro: grossly normal exam, normal gait, cranial nerves normal Veins GSV appears adequate bilaterally STUDIES: Cardiac Cath Data: 06/25/2024 Multi-Vessel CAD: LAD proximal 50% LAD mid 90% D3 Ostial 60% Circumflex Mid 100% RCA proximal 50% RCA mid up to 40% R PDA Ostial 50% Echocardiogram: 06/30/24: "Interpretation Summary The qualitative LV ejection fraction is 35-39% (moderately reduced). There is a large sized apical, anteroseptal, anterior, inferior, posterior, and lateral wall motionabnormality with hypokinesis to akinesis of the segments. Small apical laminar thrombus visualized. Mild mitral regurgitation is present. Mild tricuspid regurgitation is present. There is no evidence of pulmonary hypertension. Compared to last available study changes are noted as follows: Left ventricular systolic function has declined, small, apical, laminar thrombus now present." 06/19/2023 The examination is adequate to evaluate the referral indication. The qualitative LV ejection fraction is 45-49% (mildly reduced). The LV wall thickness is moderately increased (concentric). There is a large sized apical, anteroseptal, and anterior wall motion abnormality with akinesis of the segments. The left ventricular diastolic function is mildly abnormal (grade I). Mild mitral regurgitation is present. Mild tricuspid regurgitation is present. Compared to last available study, there has been no interval change. Carotid Duplex 02/2024 Impression: Right carotid artery duplex examination indicates evidence of less than 50% stenosis of the internal carotid artery. Left carotid artery duplex examination indicates evidence of less than 50% stenosis of the internalcarotid artery. Society of Thoracic Surgeons' Risk Score: STS site Procedure Type: Isolated CABG Perioperative OutcomeEstimate % Operative Mortality2.49% Morbidity & Amrcvodpi81.5% Stroke1.95% Renal Failure1.76% Reoperation2.89% Prolonged Ventilation6.42% Deep Sternal Wound Infection0.108% Long Hospital Stay (>14 days)7.07% Short Hospital Stay (<6 days)*31% IMPRESSION: 73 y/o male with MVCAD,HTN,HLD, COPD,GERD,Lowe's esophagus,+ family hx of CAD, smoker,hx of CVA,BPH,depression PLAN: - Patient wants surgery - Final plan per Dr. Mejias" Cosigned by Jayden Mejias MD at 07/03/2024 9:08 PM EST documented in this encounter Procedure Notes * Raghavendra Prado MD - 07/09/2024 8:16 AM ESTAssociated Order(s): EKG REASON FOR STUDY: Heart palpitations CONCLUSIONS: Atrial fibrillation Nonspecific ST abnormality When compared with ECG of 09-Jul-2024 06:25, Atrial fibrillation has replaced Sinus rhythm Questionable change in initial forces of Septal leads Nonspecific T wave abnormality, worse in Lateral leads Ventricular Rate: 92 QRS Duration: 90 QT/QTc: 402/497 ms P-R-T Marcellus: 0 : 2 : 91 degrees * Raghavendra Prado MD - 07/09/2024 6:25 AM ESTAssociated Order(s): EKG REASON FOR STUDY: post op d1 CONCLUSIONS: Normal sinus rhythm Inferior infarct , age undetermined Anteroseptal infarct (cited on or before Nonspecific ST and T wave abnormality When compared with ECG of 08-Jul-2024 12:19, QRS duration has decreased Questionable change in initial forces of Anterior-septal leads ST elevation now present in Anterior leads T wave inversion no longer evident in Lateral leads QT has shortened Ventricular Rate: 74 Atrial Rate: 74 SD Interval: 164 QRS Duration: 90 QT/QTc: 426/472 ms P-R-T Marcellus: 69 : 5 : 90 degrees documented in this encounter Consult Notes * Ayaz Phillips, PT - 07/10/2024 10:39 AM ESTAssociated Order(s): ADULT PHYSICAL THERAPY CONSULT IP GENERAL EVALUATION - Physical Therapy [address] [id number] Name: Henri Vigil Location: [facility] [place] H760/[id number] Date: 07/10/2024 Time: 103 Henri Vigil is a/an 73 year old male. Patient Status: Inpatient Insurance: Payor: [facility] Step Labs Plan: VocoMD CLASSIC [id number] RX MH-1D Product Type: *No Product type* Patient Seen: at bedside, nursing cleared patient for therapy Patient Identified By: Name, ID Band and Date Diagnosis: s/p CABG (07/10/241038) Status of treatment: Evaluation completed (07/10/241038) Orders: PT evaluation and treatment;OOB (07/10/241038) Weight Bearing Status: Weight bearing as tolerated (07/10/241038) Precautions: Alarms;Falls;Safety;Sternal;Cardiac;Central line;External pacer;Bejarano (07/10/241038) Total Treatment Time--free text: 17 (07/10/241038) Past Medical History: Past Medical History: Diagnosis Date Lowe's esophagus without dysplasia 2015 Chronic coronary artery disease 08/28/2002 Conductive hearing loss Hearing loss, conductive COPD, mild (HCC) 05/24/2005 COPD, severity to be determined ([facility]) Coronary atherosclerosis of [place] coronary artery Heart attack (HCC) Jun 2012 Heart failure, systolic, due to CAD (HCC) 09/08/2013 HTN, goal below 140/90 12/02/2021 Lumbar degenerative disc disease 11/30/2021 Old NV (myocardial infarction) 09/08/2013 Stroke (HCC) 09/2015 "3 mini strokes" [facility], rehab at [facility] Past Surgical History: Past Surgical History: Procedure Laterality Date COLONOSCOPY, DIAGNOSTIC (RECTUM) 11/25/2021 COLONOSCOPY FLEXIBLE PROXIMAL DIAGNOSTIC performed by Ryann Damon MD at ENDOSCOPY [facility] COLONOSCOPY, DIAGNOSTIC (RECTUM) N/A 10/20/2022 hemorrhoids/colonoscopy/[place] CYSTOSCOPY 11/07/2005 trus measurement EGD, FLEXIBLE, DIAGNOSTIC 09/08/2015 Barretts, Schatzki ring, repeat 1 yr/[facility] EGD, FLEXIBLE, DIAGNOSTIC 10/17/2016 Barretts, repeat 2 yrs/[facility] EGD, FLEXIBLE, DIAGNOSTIC 01/15/2019 Lowe's esophagitis, hiatal hernia, repeat 2 yrs/[facility] EGD, FLEXIBLE, DIAGNOSTIC 07/15/2021 Barretts, repeat 2 yrs / ESOPHAGOGASTRODUODENOSCOPY (EGD), FLEXIBLE, TRANSORAL, DIAGNOSTIC performed by Ryann Damon MD at [facility] EGD, FLEXIBLE, DIAGNOSTIC N/A 10/20/2022 biopsies from esophagus show mild reflux/EGD/[place] EVAL NEUROSTIM PULSE GEN, W/ REPROGRAM 05/08/2024 NEUROSTIMULATOR PULSE GENERATOR/ TRANSMITTER, WITH INTRAOPERATIVE OR SUBSEQUENT PROGRAMMING performed by Maged Monreal DO at OR [facility] IMPLANT EPIDURAL NEUROELECTRODES 05/08/2024 PERCUTANEOUS IMPLANTATION NEUROSTIMULATOR EPIDURAL performed by Maged Monreal DO at OR [facility] IMPLANT EPIDURAL NEUROELECTRODES 05/08/2024 PERCUTANEOUS IMPLANTATION NEUROSTIMULATOR EPIDURAL performed by Maged Monreal DO at OR [facility] INJECT DX/THER SUBSTANCE INTERLAMINAR LUMBAR/SACRAL W IMAGE GUIDE 07/19/2017 INJECTION SPINE LUMBAR OR SACRAL performed by Donavon Conklin, at OR [facility] MISCELLANEOUS ORDER ([facility] ONLY) Right 11/12/2019 REINHEIMER- LATERAL TARSAL STRIP NONE 11/06/2004 heart attack, [place] NONE ? heart catherization, [place] NONE ? back surgery, [place] OTHER LAD stent 10/08/04,Plavix until 10/08/05 PROSTATE, LASER VAPORIZATION 11/22/2005 TULIP SACROILIAC JOINT INJECT W/GUIDANCE 09/03/2017 INJECTION SACROILIAC JOINT performed by Donavon Conklin, DO at OR [facility] SACROILIAC JOINT INJECT W/GUIDANCE 10/25/2017 INJECTION SACROILIAC JOINT performed by Donavon Conklin, DO at OR [facility] SPINAL FUSION, LUMBAR, COMBINED 2012 Fusion L4? Subjective: Pt awake in bed, agreeable to PT. Social History/Disposition Lives with: Spouse;Family (ANTONIO) (07/10/24 103) Assistance available: Yes (07/10/24 103) Dwelling type: Single story home (07/10/24 103) Entry steps: 2 (07/10/241038) Inside steps: None (07/10/241038) Bedroom location: 1st floor (07/10/241038) Bath location: 1st floor full bath (07/10/241038) Prior Level of Function Reported by: Patient (07/10/241038) Ambulation: Ambulatory without device (07/10/241038) Devices at home: No device (07/10/241038) Observations Consciousness: Alert (07/10/241038) Orientation: Person (not further assessed) (07/10/241038) Psychosocial: Patient can communicate basic needs;Patient can converse in a social setting (07/10/241038) Other Findings: Yes (07/10/241038) Findings: Light touch sensation (07/10/241038) Light Touch Sensation Results: Intact;LLE;RLE (07/10/241038) Sitting Posture: Forward head;Rounded shoulders (07/10/241038) Standing Posture: Forward head;Rounded shoulders (07/10/241038) Pain: No complaints of pain Range of Motion Range of Motion: WFL (07/10/241038) Strength Assessment Strength Assessment: Deficits noted (07/10/241038) WNL, except: LLE;RLE (07/10/241038) LLE: Hip;Knee;Ankle;4/5 (07/10/241038) RLE: Hip;Knee;Ankle;10/11 (07/10/241038) P.T. Bed Mobility Supine-Sit: Supervision (07/10/241038) Transfers Sit-Stand: Contact Guard (07/10/241038) Stand-Sit: Contact Guard (07/10/241038) Ambulation: Distance ambulated (feet): 3 Assistive Device: No device Assist: Contact Guard Balance Sit (Static): Fair (07/10/241038) Sit (Dynamic): Fair (07/10/241038) Stand (Static): (Fair -) (07/10/241038) Stand (Dynamic): (Fair -) (07/10/241038) Patient and or Family Goal(s): to get well and to return home Patient Education Review of Precautions: Safety;Fall;Sternal (07/10/241038) Safety Awareness: Patient verbalizes insight of current deficits;Patient demonstrates carryover of insight during functional tasks;Patient can communicate basic needs (07/10/241038) Preferred learning method: Combination (07/10/241038) Barriers to learning: Medical Status (07/10/241038) Method of Education: Verbalized to patient;Patient demonstrated task (07/10/241038) Topic of Education: Safety with mobility, Goals/plan of care, and Fall prevention Method of Education: Verbal discussion and explanation provided to pt: verbalized understanding andor agreement of this information and demonstrated the exercise and or task Treatment Provided: Evaluation Moderate Complexity 17 minutes - [id number]: Patient was cooperative and pleasant during treatment session. Moderate complexity evaluation performed and 1-2 personal factorsor comorbidities were identified that will impact plan of care, including cardiac history. Patient presents with limitations in strength, bed mobility, transfers, gait, elevations, balance, endurance, and safety, which will impact plan of care. These limitations will be addressed by the goals set for this patient. Alarm Status Patient positioned in: Chair (07/10/241038) With: Pressure pad alarm intact and functioning and call brewer in reach (07/10/241038) Following session patient seated OOB in chair with chair alarm activated. Chair alarm (did not havecord to plug into call brewer system and/or room did not have port to plug cord into call brewer system). Patient's nurse was made aware. Goals: Demonstrate Bed Mobility with: modified independent Demonstrate Transfers with: modified independent Demonstrate Ambulation: least restrictive device, 150 ft with modified independent Demonstrate Stairclimbing: Number of steps: 2 and Level of Assistance: supervision Increase Strength of: B/L LE by 1/2-1 muscle grade Increase dynamic standing balance to: fair + Increase Safety: with all functional mobility Time Frame: 8 visits Assessment: Pt is a 73 year old male presenting s/p CABG. Pt alert and following all commands throughout session. Pt demonstrating fair, symmetrical B/L LE strength/ROM and intact sensation. Educatedpt on sternal precautions prior to mobility in which pt verbalized understanding and agreement. Pt performing bed mobility at a supervision level for safety to obtain sitting at edge of bed. Pt declining use of rolling walker for transfers and ambulation. Pt standing with contact guard for safety, taking several steps to recliner chair. Pt demonstrating decreased step length/height during ambulation. Pt declining further mobility at this time due to fatigue. Please consider post-acute care services which may include home health, senior living, outpatient therapy or inpatient rehabilitation.The level of care will be determined in collaboration with patient, family/caregiver and care team members. All needs met. Deficits requiring P.T. treatment needs: Safety;Mobility;Balance;Weakness;Endurance;Lower extremitystrength (07/10/24 103) Equipment Needs: Equipment needs: No device (07/10/241038) Treatment Plan: Bed mobility training, Transfer training, Gait training, Elevation training, Strengthening exercises: B/L LE, Balance activities, and Educate on safety with functional mobility Anticipated Frequency (on eval): (1 to 5 times per week) (07/10/241038) AM PAC Score with Stairs: 17 A portion of this AM-PAC assessment not scored based on functional assessment; rather clinical decision making utilized based on current findings and/or prior level of function. Please refer to future AM-PAC calculations of functional ability as they become available. * Jeannie Knox OTR/Cuco - 07/10/2024 10:22 AM ESTAssociated Order(s): ADULT OCCUPATIONAL THERAPY CONSULT IP GENERAL EVALUATION - Occupational Therapy [address] [id number] Name: Henri Vigil Location: [facility] [place] H760/A Date: 07/10/2024 Time: 10:22 AM Henri Vigil is a 73 year old male. Patient Status: Inpatient Insurance: Payor: [employer] Plan: Voco[employer] CLASSIC [id number] RX MH-1D Product Type: *No Product type* Patient Seen: at bedside, nursing cleared patient for therapy Patient Identified By: Name, ID Band and Date Diagnosis: s/p CABG x 4 (07/10/241021) Status of treatment: Evaluation completed (07/10/241021) Orders: OT evaluation and treatment (07/10/241021) Weight Bearing Status: Weight bearing as tolerated (07/10/241021) Precautions: Alarms;Falls;Safety;Skin;Sternal;Bejarano;Central line;External pacer;Cardiac (07/10/24 1022) Total Treatment Time: 17 (07/10/24 1022) Per Epic: "REFERRING PHYSICIAN: Poncho Robledo DO PCP: Leon Calle DO RES HABILITATION ASSISTANT: Poncho Robledo DO Preference for return visit: [facility] [place] Follow up with telephone or video visit at one week. 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 TTE 06/30/24 shows a reduced EF 35% which is down from 1-year prior of 45% and a small apical laminar thrombus for which he was started on Eliquis with last dose today. He is also on plavix for his CVA history. Today, he reports ongoing chest pain that is more constant in nature. He states it began 2 weeks ago and has not worsened but has increased in frequency. He reports chest pain with any activity including walking and performing ADLs. He states it gets better with rest, but now he is having more frequent episodes at rest that just go away with time. He states that the pain begins substernal and radiates to the left upper chest, no radiation into the neck or down his arm. He reports the pain as either dull pressure or an ache of pressure with activity. He reports associated MATHIS. He denies SOB while at rest and also denies palpitations. He reports he has had progressively worsened fatigue throughout the duration of this 2-weeks of chest pain. His appetite is poor as well but this has been ongoing for some time. He does report chronic history of difficulty with swallowing and attributes thisto his Lowe's esophagus and GERD. He lives at home with his family and prior to these episodes of chest pain was able to perform ADLsindependently. He ambulates without assistance. He denies fever, chills, N/V, constipation, diarrhea, dysuria. States he knows he needs surgery now. SERVICE: Cardiac Surgery DATE: 07/08/2024 PREOPERATIVE DIAGNOSIS: CAD POSTOPERATIVE DIAGNOSIS: CAD SURGEON: Jayden Galvan MD ASSISTANTS: AMOR Benton DO ANESTHESIA: general OPERATION: CABG X 4 CAN to LAD SVG to DIAG, OM, PDA" Past Medical History: Past Medical History: Diagnosis Date Lowe's esophagus without dysplasia 2015 Chronic coronary artery disease 08/28/2002 Conductive hearing loss Hearing loss, conductive COPD, mild (HCC) 05/24/2005 COPD, severity to be determined (HCC) Coronary atherosclerosis of [place] coronary artery Heart attack ([facility]) Jun 2012 Heart failure, systolic, due to CAD ([facility]) 09/08/2013 HTN, goal below 140/90 12/02/2021 Lumbar degenerative disc disease 11/30/2021 Old NV (myocardial infarction) 09/08/2013 Stroke ([facility]) 09/2015 "3 mini strokes" [facility], rehab at [facility] Past Surgical History: Past Surgical History: Procedure Laterality Date CABG, ARTERIAL, SINGLE N/A 07/08/2024 CORONARY ARTERY BYPASS GRAFT USING ARTERY 1 GRAFT performed by Jayden Galvan MD at [facility] CABG, ARTERY-VEIN, TWO N/A 07/08/2024 CORONARY ARTERY BYPASS GRAFT ARTERIAL AND VENOUS 2 GRAFTS performed by Jayden Galvan MD at OR [facility] [place] COLONOSCOPY, DIAGNOSTIC (RECTUM) 11/25/2021 COLONOSCOPY FLEXIBLE PROXIMAL DIAGNOSTIC performed by Ryann Damon MD at [facility] COLONOSCOPY, DIAGNOSTIC (RECTUM) N/A 10/20/2022 hemorrhoids/colonoscopy/[place] CYSTOSCOPY 11/07/2005 trus measurement EGD, FLEXIBLE, DIAGNOSTIC 09/08/2015 Barretts, Schatzki ring, repeat 1 yr/[facility] EGD, FLEXIBLE, DIAGNOSTIC 10/17/2016 Barretts, repeat 2 yrs/[facility] EGD, FLEXIBLE, DIAGNOSTIC 01/15/2019 Lowe's esophagitis, hiatal hernia, repeat 2 yrs/[facility] EGD, FLEXIBLE, DIAGNOSTIC 07/15/2021 Barretts, repeat 2 yrs / ESOPHAGOGASTRODUODENOSCOPY (EGD), FLEXIBLE, TRANSORAL, DIAGNOSTIC performed by Ryann Damon MD at [facility] EGD, FLEXIBLE, DIAGNOSTIC N/A 10/20/2022 biopsies from esophagus show mild reflux/EGD/[place] ENDO,VIDEO ASSIST HARVEST TEJ N/A 07/08/2024 ENDOSCOPY VIDEO ASSISTED HARVEST VEIN performed by Jayden Galvan MD at OR [facility] [place] EVAL NEUROSTIM PULSE GEN, W/ REPROGRAM 05/08/2024 NEUROSTIMULATOR PULSE GENERATOR/ TRANSMITTER, WITH INTRAOPERATIVE OR SUBSEQUENT PROGRAMMING performed by Maged Monreal DO at OR [facility] IMPLANT EPIDURAL NEUROELECTRODES 05/08/2024 PERCUTANEOUS IMPLANTATION NEUROSTIMULATOR EPIDURAL performed by Maged Monreal DO at OR [facility] IMPLANT EPIDURAL NEUROELECTRODES 05/08/2024 PERCUTANEOUS IMPLANTATION NEUROSTIMULATOR EPIDURAL performed by Maged Monreal DO at OR [facility] INJECT DX/THER SUBSTANCE INTERLAMINAR LUMBAR/SACRAL W IMAGE GUIDE 07/19/2017 INJECTION SPINE LUMBAR OR SACRAL performed by Donavon Conklin DO at OR [facility] MISCELLANEOUS ORDER ([facility] ONLY) Right 11/12/2019 REINHEIMER- LATERAL TARSAL STRIP NONE 11/06/2004 heart attack, [place] NONE ? heart catherization, [place] NONE ? back surgery, [place] OTHER LAD stent 10/08/04,Plavix until 10/08/05 PROSTATE, LASER VAPORIZATION 11/22/2005 TULIP SACROILIAC JOINT INJECT W/GUIDANCE 09/03/2017 INJECTION SACROILIAC JOINT performed by Donavon Conklin DO at OR [facility] SACROILIAC JOINT INJECT W/GUIDANCE 10/25/2017 INJECTION SACROILIAC JOINT performed by Donavon Conklin, at OR [facility] SPINAL FUSION, LUMBAR, COMBINED 2012 Fusion L4? Social History/Disposition Lives with: Spouse;Family (ANTONIO) (07/10/24 1039) Assistance available: Yes (07/10/24 1039) Dwelling type: Single story home (07/10/24 1039) Entry steps: 2 (07/10/24 1039) Inside steps: None (07/10/24 1039) Bedroom location: 1st floor (07/10/24 1039) Bath location: 1st floor full bath (07/10/24 1039) Prior Level of Function Reported by: Patient (07/10/24 1022) Ambulation: Ambulatory without device (07/10/24 1022) Grooming: Independent (07/10/24 1022) Bathing: Independent (07/10/24 1022) Dressing: Independent (07/10/24 1022) Feeding: Independent (07/10/24 1022) Toileting: Independent (07/10/24 1022) Meal Prep: Assistance (07/10/241021) Homemaking: Assistance (07/10/241021) Shopping: Assistance (07/10/241021) Driving: Yes (per pt; per chart review; spouse assists with transportation) (07/10/241021) Durable Medical Equipment at home: No device (07/10/241021) Subjective: Pt was noted to be supine in bed upon arrival and agreeable to therapy services. Pain: No complaints of pain Observations Consciousness: Alert (07/10/241021) Orientation: Person (not further assessed) (07/10/241021) Psychosocial: Patient can communicate basic needs;Patient can converse in a social setting (07/10/241021) Sitting posture: Forward head;Rounded shoulders (07/10/241021) Standing posture: Forward head;Rounded shoulders (07/10/241021) Safety awareness: The Patient verbalizes insight of current deficits.;Needs cueing supervision. (07/10/241021) Other Findings Endurance: Fair (07/10/241021) Light touch sensation: LUE;RUE;Intact (07/10/241021) Coordination: LUE;RUE;Gross motor;Fine motor;Intact (07/10/241021) Current Functional Status: Bilateral Upper Extremity Range of Motion: WFL (07/10/241021) Strength Assessment: (at least 3/5 throughout (formal MMT not assessed due to sternal precatuions))(07/10/241021) Self Care Feeding: Supervision (Please comment) (to use mouth swab) (07/10/241021) Dressing Upper Body: Supervision (Please comment) (simulated gown (due to lines)) (07/10/241021) Lower Body: Minimal Assistance (to david socks) (07/10/241021) Functional Ambulation Assistive Device: No device (07/10/241021) Distance in feet:: 3 (07/10/241021) Level of Assistance: Contact Guard (07/10/241021) Bed Mobility Supine-Sit: Supervision (Please comment) (07/10/241021) OT Transfers Sit-Stand: Contact Guard (from bed) (07/10/241021) Stand-Sit: Contact Guard (to chair) (07/10/241021) Balance Sit (Static): Fair (07/10/241021) Sit (Dynamic): Fair (-) (07/10/241021) Stand (Static): Fair (-) (07/10/241021) Stand (Dynamic): Fair (-) (07/10/241021) Alarm Status Patient positioned in: Chair (07/10/241021) With: Pressure pad alarm intact and functioning and call brewer in reach (07/10/241021) Following session patient seated OOB in chair with chair alarm activated. Chair alarm (did not havecord to plug into call brewer system and/or room did not have port to plug cord into call brewer system). Patient's nurse was made aware. Patient and Family Goals: to get well Patient Education Education Topic: Role of OT;Plan of care goals (07/10/241021) Review of Precautions: Safety;Fall;Skin;Cardiac;Sternal (07/10/241021) Method of Education: Verbalized to patient (07/10/241021) Education Provided to: Patient (07/10/241021) Response to Education: Receptive and agreeable to education (07/10/241021) Barriers to learning: Medical status (07/10/241021) Preferred learning method: Combination (07/10/241021) Treatment Provided: Evaluation Moderate Complexity 17 minutes - 24028: Patient was cooperative and pleasant during treatment session. Moderate complexity evaluation performed and 3-5 activity limitations were identified, including ADL deficit, functional mobility deficit, bed mobility deficit, decreased strength, decreased endurance, and impaired balance. Minimal or moderate modification of the functional task was necessary to complete the evaluation. Deficits Requiring O.T. Treatment: Deficits requiring O.T. treatment needs: ADL/self-care;Balance;Endurance;Functional mobility;Safety;Upper extremity strength;Weakness (07/10/241021) Goals: Demonstrates Self-care at: Feeding: Modified Independent Grooming: Modified Independent Toileting: Modified Independent UE dressing: Modified Independent UE bathing: Modified Independent LE dressing (pants/socks/shoes): Modified Independent LE bathing: Modified Independent Demonstrates Bed Mobility at: Supine-Sit: Modified Independent Sit-Supine: Modified Independent Rolling R<>L: Modified Independent Demonstrates transfers at: Sit-Stand: Modified Independent Stand-Sit: Modified Independent Bed-Chair: Modified Independent Toilet: Modified Independent Shower/Tub: Modified Independent Demonstrates functional ambulation at: Assistive device: appropriate device as needed Level of Assistance: Modified Independent Balance: Static Sitting: Fair+ Dynamic Sitting: Fair+ Static Standing: Fair+ Dynamic Standing: Fair+ Strength/ROM: Increase BUE strength 1/2 muscle grade Endurance: Increase endurance to 30/30 minutes in order to improve participation in ADL tasks and general mobility Safety awareness/Cognition: Increase safety awareness during functional mobility Precautions: Adhere to sternal precautions throughout participation in ADL tasks and general mobility Goal Time Frame: 8 visits Assessment: Pt was admitted to [facility] [place] for the above dx. Pt was pleasant and cooperative during his OT evaluation this date. Upon arrival, pt was supine in bed and agreeable to therapy services. Prior toadmission, pt reports that he lives with his and ANTONIO in a 1 story home with 2 steps to enter. Pt states that he was previously independent with ADL tasks, had assistance for IADL tasks, and was independent for mobility without a device. Upon exam, pt performed bed mobility with supervision. Once seated edge of bed, pt completed simulated UE dressing task (due to lines) with supervision and LE dressing task with min A due to limited functional reach towards b/l lower extremities. Sit<> stand transfers and ambulation were completed with contact guard assist for safety. Pt ambulated 3 ft from bed to chair without a device; no device utilized due to pt decline. Functional mobility currently limited due to pt pleasantly declining further secondary to fatigue. Following session, pt was noted to be seated in chair with call brewer in reach. All needs met. Currently, pt presents with difficulty in ADL completion and general mobility secondary to decreased strength, balance, endurance,safety awareness, and overall current medical status. Pt would benefit from acute OT services to increase his independence with ADL tasks and general mobility. In regard to discharge, please consider post-acute care services which may include home health, senior living, outpatient therapy or inpatient rehabilitation. The level of care will be determined in collaboration with patient, family/caregiver and care team members. Treatment Plan: Accuracy with Precautions, Energy Conservation, Safety, Bed mobility training, Functional Ambulation, Transfer training, ROM exercises, Upper extremity strengthening, Balance activities, ADL training, Endurance, and Educate on safety with ADLs and mobility. Anticipated Frequency (on eval): (1-5x/wk) (07/10/241021) AM-PAC Help From Another Person Eating Meals: A little (07/10/241021) Help From Another Person Taking Care of Personal Grooming: A little (07/10/241021) Help From Another Person To Put On/Take Off Upper Body Clothing: A little (07/10/241021) Help From Another Person To Put On/Take Off Lower Body Clothing: A little (07/10/241021) Help From Another Person Toileting: A little (07/10/241021) Help From Another Person Bathing: A little (07/10/241021) OT AM-PAC Score: 18 (07/10/241021) OT AM-PAC t-Scale Score: 38.66 (07/10/241021) HLM (Highest Level of Mobility) Goal: Level 5 standing (1 or more minutes) (07/10/241038) A portion of this AM-PAC assessment not scored based on functional assessment; rather clinical decision making utilized based on current findings and/or prior level of function. Please refer to future AM-PAC calculations of functional ability as they become available. * Huy Burden RN - 07/10/2024 8:07 AM ESTAssociated Order(s): BLOOD MANAGEMENT CONSULT IP FOLLOW UP - Patient Blood Management [address] [address] Name: Henri Vigil Location: [facility] [place] H760/A Date: 07/10/2024 Time: 8:07 AM Follow up inpatient - Hgb less than 10, active bleeding, or bloodless Henri Vigil is a 73 year old male admitted on 07/08/2024 with POD#2 CABGx4 . Identification of patient was done by: JORDAN BLOOD PRODUCTS IN THE LAST 24 HOURS: none LABS: Labs reviewed as indicated below: Latest Reference Range & Units 07/08/24 17:49 07/08/24 21:43 07/08/24 23:32 07/09/24 00:03 07/09/24 03:53 07/10/24 03:48 HGB 14.0 - 16.8 g/dL 9.5 (L) 9.8 (L) 9.2 (L) 9.4 (L) 9.6 (L) 9.1 (L) 9.4 (L) 9.4 (L) (L): Data is abnormally low PLAN OF CARE/RECOMMENDATION: Venofer 300mg IVPB daily x 3 days B12 1mg daily Continue vitamin daily x 2 months on D/C for ABLA Spoke with Donavan COLES in regards to current recommendations, agreeable to same. * Alida Lundberg MSW - 07/09/2024 4:28 PM ESTAssociated Order(s): CARE MANAGEMENT CONSULT IP Please see ancillary notes. CM to continue to follow throughout hospitalization. Thanks * Huy Burden RN - 07/08/2024 8:20 AM ESTAssociated Order(s): BLOOD MANAGEMENT CONSULT IP REQUESTING SERVICE: [facility] [place] CVTS REASON FOR CONSULT: new evaluation inpatient, pre-op Latest Reference Range & Units 07/04/24 09:16 HGB 14.0 - 16.8 g/dL 15.1 HCT 40.0 - 48.4 % 44.1 Chart reviewed. In absence of severe anemia, hemorrhage, or personal beliefs that prohibit blood transfusion would not recommend urgent therapy with iron, vitamins, or erythroid stimulating agents atthis time. If no active hemorrhage, consider PRBC transfusion only for severe anemia and use a 1 unit PRBC dose followed by a repeat clinical assessment. For reversal of anticoagulation therapy, use Reversal of Anticoagulation order set. Please recommend outpatient follow up that includes repeat assessment of hemoglobin when stable fordischarge. Please call with questions. Thank you for allowing Blood Management to participate in the care of this patient. documented in this encounter Nursing Notes * Trice Keene RN - 07/15/2024 1:34 PM EST I have conducted the discharge appointment with the patient on 07/15/2024 at 1300 . This discussion occurred bedside. Meds to beds offered: yes. The following post care is planned: SNF/IRF. I encouraged the patient and/or family to call the hospital with any questions or concerns about the hospital admission. * Zeferino Barth RN - 07/12/2024 11:50 PM EST Dual Licensed Skin Assessment completed by Zeferino Gan. The patient is/has a N/A Skin Breakdown (includes non blanchable erythema): Yes - Surgical/Procedural changes only. MSI, EVH, and Trochar sites. * Tracy Kaur RN - 07/09/2024 12:43 AM EST Patient Extubated at 0025. Educated pt on extubation process and restrictions. Extubation order acknowledged and witnessed by myself, Tracy Kaur RN and Lucas Rivera, IT LEAD whowas at bedside. Cuff leak noted prior to extubation. Patient extubated to BIPAP. No signs of distress. No stridor. Vitals: Pulse 81, BP 157/73, 02 96. * Stevenson Nelson RN - 07/08/2024 5:00 PM EST Dual Licensed Skin Assessment completed by Stevenson Nelson RN and Edson Flores RN. The patient is/has a N/A Skin Breakdown (includes non blanchable erythema): Yes - Surgical/Procedural changes only. * Leonila Rm RN - 07/08/2024 6:48 AM EST Dual Licensed Skin Assessment completed by Rohini and Lakeisha. The patient is/has a N/A Skin Breakdown (includes non blanchable erythema): No documented in this encounter OR Notes * OR Surgeon - Jayden Galvan MD - 07/08/2024 11:50 AM EST OPERATIVE RECORD OR [facility], OPERATING ROOM [facility] [place], [address] [address] Henri Vigil : 1950 Location: [facility] SERVICE: Cardiac Surgery DATE: 07/08/2024 PREOPERATIVE DIAGNOSIS: CAD POSTOPERATIVE DIAGNOSIS: CAD SURGEON: Jayden Galvan MD ASSISTANTS: AMOR Benton DO ANESTHESIA: general OPERATION: CABG X 4 CAN to LAD SVG to DIAG, OM, PDA FINDINGS: triphasic flow in grafts ESTIMATED BLOOD LOSS: 500ml DRAINS: CT X 2 FLUIDS: adequate mL. URINE OUTPUT: adequate SPECIMEN: None. COMPLICATIONS: None. CONDITION: stable INDICATIONS AND HISTORY: Henri Vigil is a 73-year-old male with past medical history significant for hypertension, hyperlipidemia, COPD, requiring nocturnal oxygen, CVA and tobacco abuse who presented with unstable anginal symptoms. Coronary angiogram demonstrated critical multivessel coronary disease. Echocardiogram revealed reduced ventricular function to 30-35% with a left ventricular apical thrombus. Due to the multivessel nature of his disease and unstable symptoms he was offered surgical revascularization. DESCRIPTION OF OPERATION: The patient was placed on operating table in the supine position. General anesthesia was induced and monitoring lines placed by anesthesia. He was prepped and draped in usual sterile fashion. Greater saphenous vein was endoscopically harvested from the left lower extremity. Median sternotomy was performed and the left internal mammary artery taken from beneath the left sternum. The patient was heparinized and placed on cardiopulmonary bypass using a cannula in the ascending aorta and a three-stage venous cannula in the right atrium. The patient was systemically cooled and the aorta crossclamped. Cold [place] cardioplegia was delivered in antegrade fashion with prompt diastolic arrest of the heart. The posterior descending cor onary artery was opened. A segment of saphenous vein was anastomosed to it in end-to-side fashion using 7 0 Prolene. This graft was sequence in a [id number] fashion to a small caliber and chronically occluded obtuse marginal coronary artery using 7 0 Prolene. The diagonal coronary artery was grafted with a separate segment of saphenous vein using 7 0 Prolene. The left internal mammary artery was anastomosed to the distal left anterior descending coronary artery using 8 0 Prolene. Under a partial occlusion clamp the 2 vein grafts were anastomosed to ascending aorta using 6 0 Prolene. Following a period of rewarming the patient was weaned from cardiopulmonary bypass without difficulty. Theheparin was reversed and all the cannulas removed. Temporary pacing wires were placed on the right ventricle and chest tubes placed in the left pleural space and mediastinum. After assuring adequate hemostasis the chest was closed with surgical steel wire for the sternum followed by layered closureof Vicryl and a subcuticular stitch for skin. The patient tolerated the procedure well. Sponge and needle counts were correct. He was returned to the ICU in stable condition. Was there a qualified resident that took part in the case? No - The skilled assistance of the advanced practitioner/physician was necessary for the successful completion of this case. Paralegal Instructor name: AMOR Benton DO Paralegal Instructor role: The advanced practitioner/physician was essential for retraction, suction, wound closure, and saphenous vein harvesting - endovascular I understand that section 1842 (b)(7)(D) of the Social Security Act generally prohibits Medicare physician fee schedule payment for the services of [id number] in teaching hospitals when qualified residents are available to furnish such services. I certify that the services for which [facility] is claimed were medically necessary, and that no qualified resident was available to perform theservices. I further understand that these services are subject to post-payment review by the Medicare carrier. documented in this encounter Miscellaneous Notes * Ancillary Progress Note - Randy Kilgore RN - 07/15/2024 1:29 PM EST CARE MANAGEMENT - ADULT DISCHARGE NOTE [address] [address] Name: Henri Vigil Location: [facility] H760/A Date: 07/15/2024 Time: 1:29 PM The following coordination of care and discharge plan has been coordinated with the care team, patient, family and/or caregiver according to the patients needs and preferences. Discharge Discharge Second Notice Important Message from Medicare delivered: Yes (07/15/24 1300) Date Delivered: 07/14/24 (07/15/24 1300) Was Caregiver/Family/Facility contacted regarding discharge: Yes (07/15/24 1300) Discharge Transportation: Family/F[address] drive (07/15/24 1300) Date of scheduled discharge transportation: 07/15/24 (07/15/24 1300) Time of scheduled discharge transportation: 1600 (07/15/24 1300) Final Discharge Plan (Complete only at time of Discharge): SNF (07/15/24 1300) Destination - Admitted Since 07/08/2024 Service Provider Services Address Phone Fax Patient Preferred Last Updated [facility] [address] [place] [id number] -- Randy Kilgore RN 07/15/2024 1111 Narrative: Henri is discharging to the above facility for short term rehab. * Ancillary Progress Note - Dulce Mckinney COTA/L - 07/15/2024 1:05 PM EST PROGRESS NOTE - Occupational Therapy [address] [address] Name: Henri Vigil Location: [facility] [place] H760/A Date: 07/15/2024 Time: 1:05 PM Henri Vigil is a 73 year old male. Patient Status: Inpatient Insurance: Payor: [facility] Plan: [facility] GOLD CLASSIC 360 RX MH-1D Product Type: *No Product type* Patient Seen: at bedside, nursing cleared patient for therapy Patient Identified By: Name, ID Band and Date Diagnosis: s/p CABG (07/15/241122) Status of treatment: Treatment completed (07/15/241122) Orders: OT evaluation and treatment (07/15/241122) Weight Bearing Status: Weight bearing as tolerated (07/15/241122) Precautions: Alarms;Cardiac;Falls;Safety;Sternal (07/15/241122) Total Treatment Time: 14 (07/15/241122) Subjective: patient agreeable to OT session Pain: No complaints of pain Observations Consciousness: Alert (07/15/241122) Orientation: Person (07/15/241122) Psychosocial: Patient can communicate basic needs (07/15/241122) Sitting posture: Forward head;Rounded shoulders (07/15/241122) Standing posture: Forward head;Rounded shoulders (07/15/241122) Safety awareness: The Patient can communicate basic needs.;Needs cueing supervision. (07/15/241122) Other Findings Endurance: Fair (07/10/24 1022) Light touch sensation: LUE;RUE;Intact (07/10/24 1022) Coordination: LUE;RUE;Gross motor;Fine motor;Intact (07/10/24 102) Current Functional Status: Activities of Daily Living: Self Care Feeding: Supervision (Please comment) (to use mouth swab) (07/10/24 1022) Grooming: Supervision (Please comment) (07/15/241122) Dressing Upper Body: Contact Guard (david gown as a robe) (07/15/241122) Lower Body: Supervision (Please comment) (07/13/24 1107) Functional Ambulation Assistive Device: Rolling walker (07/15/241122) Distance in feet:: 0 (07/15/241122) Level of Assistance: Contact Guard (to Minimal assistance) (07/13/24 1107) Bed Mobility Supine-Sit: Supervision (Please comment) (07/10/24 1022) OT Transfers Sit-Stand: Contact Guard (07/15/241122) Stand-Sit: Contact Guard (07/15/241122) Balance Sit (Static): Fair (07/15/241122) Sit (Dynamic): Fair (07/15/241122) Stand (Static): (fair-) (07/15/241122) Stand (Dynamic): (Fair- to Poor+) (07/13/24 1107) Patient Education Education Topic: Role of OT;Plan of care goals (07/15/241122) Review of Precautions: Safety;Cardiac;Fall;Sternal (07/15/241122) Method of Education: Verbalized to patient (07/15/241122) Education Provided to: Patient (07/15/241122) Response to Education: Receptive and agreeable to education;Needs further education (07/15/241122) Barriers to learning: Medical status (07/15/241122) Preferred learning method: Combination (07/15/241122) Alarm Status Patient positioned in: Chair (07/15/241122) With: Pressure pad alarm intact and functioning and call brewer in reach (07/15/241122) Treatment Provided: Self Long Term Management Trainin minutes Deficits requiring O.T. treatment needs: ADL/self- care;Balance;Endurance;Functional mobility;Safety;Upper extremity strength;Weakness (07/10/24 1022) Assessment: patient out of bed in recliner upon entering room. Contact guard for functional transfer from recliner. Contact guard to maintain standing balance. Supervision to use urinal in standing. Minimal assistance to david gown as robe. Supervision to wash/dry face and use an electric razor. Reviewed and educated on sternal and cardiac precautions. Please consider post-acute care services which may include home health, senior living, outpatient therapy or inpatient rehabilitation. The level of care will be determined in collaboration with patient, family/caregiver and care team members. Would benefit from continued OT to maximize functional capabilities. Plan: Continue to follow as per plan. Anticipated Frequency (on eval): (1-5x's a week) (07/15/241122) Equipment Equipment used in Therapy: Rolling walker (07/15/241122) AM-PAC Help From Another Person Eating Meals: A little (07/15/241122) Help From Another Person Taking Care of Personal Grooming: A little (07/15/241122) Help From Another Person To Put On/Take Off Upper Body Clothing: A little (07/15/241122) Help From Another Person To Put On/Take Off Lower Body Clothing: A little (07/15/241122) Help From Another Person Toileting: A little (07/15/241122) Help From Another Person Bathing: A little (07/15/241122) OT AM-PAC Score: 18 (07/15/241122) OT AM-PAC t-Scale Score: 38.66 (07/15/241122) HLM (Highest Level of Mobility) Goal: Level 5 standing (1 or more minutes) (07/14/24 1100) A portion of this AM-PAC assessment not scored based on functional assessment ; rather clinical decision making utilized based on current findings and/or prior level of function. Please refer to future AM-PAC calculations of functional ability as they become available. * Ancillary Progress Note - Judit Knight PTA - 07/15/2024 11:38 AM EST PROGRESS NOTE - Physical Therapy [facility] [place]-[address] [address] Name: Henri Vigil Location: [facility] [place] H760/A Date: 07/15/2024 Time: 11:38 AM Henri Vigil is a/an 73 year old male. Patient Status: Inpatient Insurance: Payor: [facility] Step Labs Plan: [employer] CLASSIC 360 RX MH-1D Product Type: *No Product type* Patient Identified By: Name, ID Band and Date Diagnosis: s/p CABG (07/15/241137) Status of treatment: Treatment completed (07/15/241137) Orders: PT evaluation and treatment (07/15/241137) Weight Bearing Status: Weight bearing as tolerated (07/15/241137) Precautions: Alarms;Falls;Safety;Sternal (07/15/241137) Total Treatment Time--free text: 10 (07/15/241137) Treatment Provided: Gait Training 10 minutes: gait training with rolling walker Pain: No complaints of pain Transfers Sit-Stand: Contact Guard (07/15/241137) Stand-Sit: Contact Guard (07/15/241137) Ambulation: Distance ambulated (feet): 50 Assistive Device: Rolling walker Assist: Contact Guard Noted gait deviations: slow gait speed, cues for rolling walker management, BLE instability (07/15/241137) Balance Sit (Static): Fair (07/15/241137) Sit (Dynamic): Fair (07/15/241137) Stand (Static): (fair -) (07/15/241137) Stand (Dynamic): (fair -) (07/15/241137) Extremity Exercise Sitting: Hip;Knee (07/14/24948) Hip : Bilateral LE;Flexion (25 reps) (07/14/24948) Knee : Bilateral LE;Extension (25 reps) (07/14/24948) Supine: Isometrics (07/14/24948) Isometrics: Bilateral LE;Quad sets;2 sets of 10 (07/14/24948) Topic of Education: Safety with mobility, Use of assistive device, Fall prevention, and sternal precautions Method of Education: Verbal discussion and explanation provided to pt: Alarm Status Patient positioned in: Chair (07/15/241137) With: Pressure pad alarm intact and functioning and call brewer in reach (07/15/241137) Following session patient seated OOB in chair with chair alarm activated and cord plugged into callbell system. Patient Education Review of Precautions: Safety;Fall;Sternal (07/15/241137) Safety Awareness: Patient verbalizes insight of current deficits;Patient demonstrates carryover of insight during functional tasks;Patient can communicate basic needs;Needs cueing supervision (07/15/241137) Preferred learning method: Combination (07/11/24926) Barriers to learning: Medical Status (07/11/24926) Method of Education: Verbalized to patient;Patient demonstrated task (07/11/24926) Assessment: Upon arrival pt seated in recliner. He required contact guard assist for transfers and to ambulate 50' using a rolling walker requiring contact guard assist. He presents with a slow gait speed and required cues to keep his feet inside the walker and maintain and upright posture. Noted BLE instability. Distance limited by fatigue. Chair follow utilized for safety. Sternal precautions reviewed. Please consider post-acute care services which may include home health, senior living, outpatient therapy or inpatient rehabilitation. The level of care will be determined in collaborationwith patient, family/caregiver and care team members. Deficits requiring P.T. treatment needs: Safety;Mobility;Balance;Weakness;Endurance;Lower extremitystrength (07/15/241137) Equipment needs: Rolling walker (07/15/241137) Plan: Continue with current treatment plan established on evaluation. AM PAC Score with Stairs: 17 A portion of this AM-PAC assessment not scored based on functional assessment; rather clinical decision making utilized based on current findings and/or prior level of function. Please refer to future AM-PAC calculations of functional ability as they become available. * Ancillary Progress Note - Randy Kilgore RN - 07/15/2024 8:04 AM EST POST ACUTE CARE CARE MANAGEMENT [facility] [place] [id number] Name: Henri Vigil Location: [facility] [place] H760/A Date: 07/15/2024 Time: 8:05 AM Post-Acute Care Patient General Information Living Quarters: Apartment (07/09/241625) How many stories is the dwelling?: One Story (07/09/241625) Number of steps to enter living quarters:: 2 (07/09/241625) Location of bathroom(s): All floors or Single story dwelling (07/09/241625) History of falling: No (07/14/241999) What was your living situation prior to admission/observation?: Independently (07/09/241830) Do you have any children, pets, or other dependents that you are currently caring for?: No (07/09/241830) AM-PAC Score With Stairs : 16 (07/14/24 1100) Post-Acute Care with AM-PAC < 17.99 Rehab diagnosis: Does not meet criteria (07/15/24 0804) Inpatient Rehab Facility (IRF) Guidelines (1-8): Requires face to face interaction with a rehabilitative physician at a minimum of 3 times per week;Requires access to a rehabilitative RN 24/7;Able toparticipate in intensive therapy program consisting of treatment at a minimum of 3 hours per day 5 days per week;Indicate therapy modalities;Able to participate in rehabilitative therapy program including realistic goals with predictable timeframes for completion of goals;Rehabilitation intensity and frequency makes the services impracticable to obtain in less intense setting;Requires coordination care conference at least 1 time/week;Frequent assessment of progression toward goals (07/11/241111) Therapy Modalities: Physical Therapy;Occupational Therapy (07/11/241111) Inpatient Rehab Facility (IRF) Guidelines (-12): Assistance with resolution of issues impeding rehabilitative progress;Established rehabilitative progress;Frequent re-assessment of established rehabilitative progress;Frequent monitoring and or revision of treatment plan (07/11/241111) [facility] (SNF) Guidelines For Medical Approval (must select both): Care must be provided by an RN/QUALITY ASSURANCE MONITOR and cannot be managed at home;Care requires observation, monitoring and evaluation of effectiveness on a daily basis (07/15/24803) SNF guidelines for Rehab Approval (All selections required): Able to participate for at least 1 hour of therapy per day;One or more therapy modalities (PT/OT/ST) at least 5 times a week;Requries Training (select at least one);Services required only able to be provided in an inpatient setting;Requires intense care planning with realistic goals as identified by 1 of the following;Frequent re-assessment of established rehabilitative progress;Established rehabilitative progress;Frequent monitoring and or revision of treatment plan (07/15/24803) Therapy Modalities: Physical Therapy;Occupational Therapy (07/15/24803) Intense Care Plan Goals: Completion of home evaluation, assistance with home modifications;Coordination of multiple community services;Assistance with application for community services;Family medication and/or transfer training (07/15/24803) SNF Required Training: Gait training;ADL training, with or without adaptive equipment;Transfer Training (07/15/24803) Approved for [facility]: Approved for [facility] (07/15/24803) [facility] auth for acute rehab denied. P2P completed and denial upheld. Service met with patient and he is now agreeable to SNF referrals in [facility]. Facilities released in SARAH - will reach out to them when they open. Per ELDER note from yesterday, family now requesting w/c van for transportationto facility - CM will reach out again to confirm once facility bed offered/accepted. 0855: Referrals sent to the following facilities: [facility] - spoke to Frida - no male beds this week anticipated [facility] - left VM for Sajan to return call [facility] - left for return call and faxed referral to [phone] [place] [facility] - left VM for jacquie to return call [facility] - spoke to Katherine - no known current beds. She will check with their director and return call./ [facility] - left VM for Nicole for return call SARAH released to all facilities for review 1030: Bed offer from [facility] CM met with Henri - he is accepting bed offer. EDLER spoke to his , Mariama. She is working at 1330 and cannot transport. She suggested calling his son, Jr Henri, shauna Hollis at [phone]. CM spoke to Bunny. He is able to transport today, arriving at [facility] [place] [id number]. ELDER called Mylene with acceptance and transportation arrangements.. She provided report number, RN roller shop supervisor, room number 3070 on third floor. She stated that Bunny can get wheel chair from lobby to bring him inside. ELDER consulted with bedside RN, Trice, who confirmed that Henri can stand pivot with on assist to get from car to wheelchair. ELDER notified CVTS, Noa, of d/c. Meds to be placed in d/c summary for facility. He would only need paper scripts for controlled substances. CM pink slip given to bedside RN for report and directions for son provided on pink post-it at bedside. * Progress Notes - Post-Op Viktoria - Jayden Galvan MD - 07/15/2024 2:45 AM EST PROGRESS NOTE - CARDIAC SURGERY [facility] [place] [address] Name: Henri Vigil Location: [facility] [place] H760/A Date: 07/15/2024 Time: 3:11 AM OPERATION: CABG X 4 (CAN to LAD; SVG to DIAG, OM, PDA) SURGEON: Jayden Galvan MD POD#: 7 PATIENT ISSUES/EVENTS: Patient examined resting comfortably in bed, in NSR and on 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 INSULATION INSTALLER 2L NCO2. He reports his pain is well controlled on current regimen. He denies SOB. He states he was able to walksome in his room yesterday, still not walking in hallways, but is able to get up and go to the bathroom with walker and assistance. His last BM was 07/12/24, however his abdomen is soft and he is not complaining of pain. Continues to pass flatus. Hemodynamics acceptable and tolerating a beta zeferino. PHYSICAL EXAM: General: no acute distress Heart Exam: regular rate and rhythm, no murmur, gallops, or rubs, and pulses normal Lungs: normal respirations, clear to auscultation, and diminished breath sounds - bases and equal bilaterally Abdominal Exam: abdomen soft, non-tender, no abnormal masses, no hepatosplenomegaly, and normal active bowel sounds Extremities: warm, dry, good turgor, well perfused, and no edema Incision: sternotomy - clean, dry and intact, no drainage, and sternum stable, vein harvest site - clean, dry and intact and no drainage Neurological: alert, EOMI, PERRLA, and motor normal Pulses: radial, dorsalis pedis, and posterior tibials CURRENT CORE CARDIAC MEDICATIONS: Beta Zeferino: yes ASA: yes Statin: yes SIMA-Inhibitor / ARB: no, explain -- maximizing beta zeferino therapy POSTOPERATIVE COMPLICATIONS: acute post op blood loss anemia atrial fibrillation BIJAL ADDITIONAL PROCEDURES: none ASSESSMENT/PLAN: Cardiovascular: -NSR, rate 60s-70s, SBP 90s-130 -Beta zeferino: Coreg 3.125 -- he was on 12.5 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 INSULATION INSTALLER however his BP currently does not allow for increase titration of dose - Continue to hold 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 INSULATION INSTALLER lisinopril - Originally trialed Norvas post-op, but stopped for low BP and favoring beta zeferino first - He would benefit from ACEI/ARB once his BP allows given his reduced EF -Statin: Crestor, zetia -Pre-op EF 35% -Central Line(s): No -Pacer Wires: no Chronic Issues: -HFrEF on Coreg, lisinopril, spironolactone, lasix -HTN on norvasc -CAD on Imdur (do not restart now that he is s/p CABG x4) -HLD on crestor, zetia Pulmonary: -Satting well on 2L NCO2 -Daily CXR -Aggressive pulmonary toilet -Chest Tubes/Alen Drains: No Chronic Issues: -COPD on 2L NCO2 HS GI: -Diet: Soft & Bite-sized (per patient as he has chronic dysphagia 2/2 PMH TIA/CVA) -Bowel regimen -> Senna, Colace -Last BM: 07/12 - Abdomen soft, non-tender, not distended, no pain, passing flatus, no N/V -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 INSULATION INSTALLER protonix for GI prophylaxis Chronic Issues: -GERD on protonix /Renal: -Pre-op renal function baseline Cr. 1.1-1.2, last Cr 1.2 -Post-op BIJAL now resolved ([facility] Cr. 1.6) -Bejarano: No, voiding independently -Continue PO lasix/K -Should consider restarting 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 INSULATION INSTALLER spironolactone at discharge for his reduced EF -I&O: -175mL yesterday - Since admit: +3.1L - Admit weight 66.9kg, most recent weight 71.9kg -- does not have edema on exam - May need a dose of IV lasix in AM pending CXR and clinical exam, however has been making good urine on PO lasix - Continue 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 INSULATION INSTALLER avodart and flomax -IV Lasix 40mg prn Chronic Issues: -BPH on avodart and flomax Hematology: -Hgb 10.2, plt 188 -INR 2.2 -SQ Heparin for DVT prophylaxis -Aspirin 81mg -- last dose 07/15 due to patient being on triple therapy -Coumadin per pharmacy to be continued for 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 INSULATION INSTALLER apical thrombus - Of note, he was on Eliquis pre-op; Coumadin should be continued for minimum 1- month post-op -Continue 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 INSULATION INSTALLER Plavix (was on for prior CVA) -Blood products: None Neuro/P.T./O.T.: -Neurologically intact -Pain controlled -OOB in AM -PT/OT consults completed -Increase activity as tolerated - Insurance auth denied for [facility] -- should consider SNF placement given his reduced mobility and only able to get around room for now - Continue 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 INSULATION INSTALLER buspar, wellbutrin - Continue 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 INSULATION INSTALLER requip - Continue 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 INSULATION INSTALLER remeron - Continue 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 INSULATION INSTALLER lyrica Chronic Issues: -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 -Restless Leg on Requip -Anxiety state on Buspar, wellbutrin, remeron Infectious Disease: -Afebrile, WBC 7.25 -Post-op Ancef completed -Pre-op nasal and urine culture negative Endo: - No PMH of DM - Pre-op A1C of 5.9 Disposition: - Insurance auth denied [facility] - Discuss with CM on possible SNF placement Plan: - Continue Beta zeferino with Coreg 3.125 and increase as BP allows - He would benefit from re-introduction of 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 INSULATION INSTALLER SIMA-I for his reduced EF, however BP does not currently allow - Introduce as able - He continues to be on 2L NCO2 during the day, wean for SpO2 >88% - He is on his 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 INSULATION INSTALLER 2L NCO2 HS - Consider IV lasix this AM given he is still on NCO2 and his weight is up considerably (approx 5kg) since admission - He does not have significant LE edema on exam - Most recent CXR 07/13 shows mild pulm edema and probable layering effusion - If no IV lasix, continue PO lasix/k - At time of discharge, he should restart 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 INSULATION INSTALLER Spironolactone for his reduced EF - ASA last dose today 07/15/24 - this will complete triple therapy (ASA, plavix, coumadin) for 1 week - Continue 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 INSULATION INSTALLER plavix - Continue Coumadin per pharmacy for pre-op apical thrombus (last INR 2.2) - Insurance auth denied [facility] - Work with CM for possible SNF placement - Discharge soon once placement established Stable Cont diuresis Awaitng placement * Ancillary Progress Note - Loli Roberto OSA - 07/14/2024 2:31 PM EST Member: Henri Vigil [facility] [employer] decision: deny acute ip rehab with recommendation for SNF level of care at a [facility] participating provider. SNF auth [id number] (Note-this is not a reference number for peer to peer). If the Physician in the hospital does not agree with this decision, he/she can call by 16:00 of the following business day and tell the associate he/she would like to speak with our Dredge Pump Operator concerning a denial of acute inpatient rehab admission. Thank you. [facility]-Post Acute Team * Ancillary Progress Note - Edson Taylor RN - 07/14/2024 2:27 PM EST CARE MANAGEMENT - ADULT TRANSITION NOTE [facility] [place] [address] Name: Henri Vigil Location: [facility] [place] H760/A Date: 07/14/2024 Time: 2:27 PM Risk Stratification Risk Stratification Psycho Social / Medical Concerns Identified: Adjustment to illness/injury;Multiple Comorbidities (07/09/24 1626) Accessed Neighbor[employer] to connect patients to social care resources: No (07/09/24 1626) OBRA or OPTIONS needed for placement: No (07/09/24 1626) Readmission Risk Score: 18.92 (07/14/24 1201) AM-PAC Score With Stairs : 16 (07/14/24 1100) Caregiver Information Emergency Contacts None on File Other Contacts Name Relation Home Work Mobile MARIAMA VIGIL Spouse [phone] Transition of Care Checklist Narrative: Member: Henri Vigil [facility] [employer] decision: deny acute ip rehab with recommendation for SNF level of care at a [facility] participating provider. SNF auth [id number] (Note-this is not a reference number for peer to peer). If the Physician in the hospital does not agree with this decision, he/she can call by 16:00 of the following business day and tell the associate he/she would like to speak with our Dredge Pump Operator concerning a denial of acute inpatient rehab admission. Thank you. [facility]-Post Acute Team Primary service aware and they will attempt peer to peer appeal. Anticipated Transportation at Discharge: TBD Patient/Family Expectations: TBD Transition Planning Transition Planning Transition Plan/Considerations: Needs uncertain at this time - Continue monitoring for needs (07/09/24 5294) Additional Considerations: Care Management will continue to monitor and assist with discharge planning needs * Ancillary Progress Note - Susan Cervantes Chaplain - 07/14/2024 1:08 PM EST PROGRESS NOTE - Spiritual Care Contact Information [address] [address] Name: Henri Vigil Location: [facility] [place] H760/A Date: 07/14/2024 Time: 1:08 PM Yazidi: No Mormon Pref [66] Mormon Affiliations: REASON FOR VISIT: request and follow-up visit REQUEST RECEIVED FROM: staff member - Name: Chaplain ga VISIT LENGTH: 20 min REQUEST FACTORS (Nature of Situation): Follow-up Visit FOCUS OF CARE: Patient SPIRITUAL ASSESSMENT: Cindi or Belief System: Religion Most Important Need(s) / Concern(s): request Sense of Community and/or Mormon Affiliation: Did not identify Addresses need(s)/concerns(s) and/or skyla through: Acceptance, Cindi, Family, Friends, God/Higher Power SPIRITUAL CARE PROVIDED: Operating Room Specialist addressed needs/concerns and/or coping through: Listening presence, Prayer, and Supportivedialogue REFERRAL TO: Operating Room Specialist OUTCOMES: Comfort/Healing Presence, Identifying Patient's Strengths/Source of Hope, Support System Identified, Trust Self/Others/God ANNOTATION: I provided the emotional and spiritual support for the patient through supportive dialog and a listening presence. I found henri setting in bedside chair. Patient stated "that he was in a better frame of mind today." He was able to take rehab this morning and hopefully heading to rehab very soon. I shared with Henri, that if he feels that he will need additional spiritual care visit that he should ask staff to page us, and he agree to the plan of care. The Spiritual Care Department will continue to follow and support the patient and or family as necessary or as requested by the patient or family. I concluded our visit with a prayer for healing. * Ancillary Progress Note - Judit Knight, 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 INSULATION INSTALLER - 07/14/2024 9:51 AM EST PROGRESS NOTE - Physical Therapy [facility] [place] [address] Name: Henri Vigil Location: [facility] [place] H760/A Date: 07/14/2024 Time: 9:51 AM Henri Vigil is a/an 73 year old male. Patient Status: Inpatient Insurance: Payor: [employer] Plan: [employer] 360 RX [id number] Product Type: *No Product type* Patient Identified By: Name, ID Band and Date Diagnosis: s/p CABG (07/14/24948) Status of treatment: Treatment completed (07/14/24948) Orders: PT evaluation and treatment (07/14/24948) Weight Bearing Status: Weight bearing as tolerated (07/14/24948) Precautions: Alarms;Falls;Safety;Sternal;Oxygen (07/14/24948) Total Treatment Time--free text: 24 (07/14/24948) Treatment Provided: Therapeutic Activities 13 minutes: transfer training Ambulation, sternal precaution review Therapeutic Exercises: 10 minutes Pain: No complaints of pain Transfers Sit-Stand: Contact Guard (07/14/24948) Stand-Sit: Contact Guard (07/14/24948) Ambulation: Distance ambulated (feet): 30 Assistive Device: Rolling walker Assist: Minimal Assistance Noted gait deviations: slow gait speed, cues for rolling walker management, BLE instability (07/14/24948) Balance Sit (Static): Fair (07/14/24948) Sit (Dynamic): Fair (07/14/24948) Stand (Static): (fair -) (07/14/24948) Stand (Dynamic): (poor +) (07/14/24948) Extremity Exercise Sitting: Hip;Knee (07/14/24948) Hip : Bilateral LE;Flexion (25 reps) (07/14/24948) Knee : Bilateral LE;Extension (25 reps) (07/14/24948) Supine: Isometrics (07/14/24948) Isometrics: Bilateral LE;Quad sets;2 sets of 10 (07/14/24948) Topic of Education: Safety with mobility, Goals/plan of care, Use of assistive device, Fall prevention, and sternal precautions Method of Education: Verbal discussion and explanation provided to pt: Alarm Status Patient positioned in: Chair (07/14/24948) With: Call brewer in reach (no alarm upon arrival) (07/14/24948) Patient Education Review of Precautions: Sternal (07/14/24948) Safety Awareness: Patient verbalizes insight of current deficits;Patient demonstrates carryover of insight during functional tasks;Patient can communicate basic needs;Needs cueing supervision (07/14/24948) Assessment: Upon arrival pt seated in recliner. He required contact guard for sit to stand. He tolerated standing for ~1 minute to the walker to use the urinal. Noted bilateral knee instability in stance. He then ambulated 30' using a rolling walker requiring minimal assist. He required cues to keep his feet inside the walker to be able to use BUE correctly on the walker. Noted he had difficulty maintaining full knee extension during gait due to weakness. Sternal precautions reviewed. Seated and supine exercises to increase LE strength. Pt very motivated to participate in therapy session. Please consider post-acute care services which may include home health, senior living, outpatient therapy or inpatient rehabilitation. The level of care will be determined in collaboration with patient, family/caregiver and care team members. Deficits requiring P.T. treatment needs: Safety;Mobility;Balance;Weakness;Endurance;Lower extremitystrength (07/14/24948) Equipment needs: Rolling walker (07/14/24948) Plan: Continue with current treatment plan established on evaluation. AM PAC Score with Stairs: 16 A portion of this AM-PAC assessment not scored based on functional assessment; rather clinical decision making utilized based on current findings and/or prior level of function. Please refer to future AM-PAC calculations of functional ability as they become available. * Diagnostic Clarification - Jayden Galvan MD - 07/14/2024 9:28 AM EST Acute respiratory acidosis only is a valid diagnosis for this patient The patient has been diagnosed with new onset A-Fib with RVR. No shock is present. * Ancillary Progress Note - Edson Taylor RN - 07/14/2024 8:39 AM EST CARE MANAGEMENT - ADULT TRANSITION NOTE [facility] [place] [address] Name: Henri Vigil Location: [facility] [place] H760/A Date: 07/14/2024 Time: 8:40 AM Risk Stratification Risk Stratification Psycho Social / Medical Concerns Identified: Adjustment to illness/injury;Multiple Comorbidities (07/09/241625) Accessed Neighbor[employer] to connect patients to social care resources: No (07/09/241625) OBRA or OPTIONS needed for placement: No (07/09/241625) Readmission Risk Score: 18.88 (07/14/24 0801) AM-PAC Score With Stairs : 17 (07/13/241999) Caregiver Information Emergency Contacts None on File Other Contacts Name Relation Home Work Mobile MARIAMA VIGIL Spouse [phone] Transition of Care Checklist Narrative: IP rehab authorization submitted via [employer] for [facility] Anticipated Transportation at Discharge: W/C elidia Patient/Family Expectations: Admit to Rehab Transition Planning Transition Planning Transition Plan/Considerations: Needs uncertain at this time - Continue monitoring for needs (07/09/241627) Additional Considerations: Care Management will continue to monitor and assist with discharge planning needs * Progress Notes - Post-Op Global - Jayden Galvan MD - 07/14/2024 3:00 AM EST PROGRESS NOTE - CARDIAC SURGERY [facility] [place] [address] Name: Henri Vigil Location: [facility] [place] H760 Date: 07/14/2024 Time: 3:00 AM OPERATION: CABG X 4 (CAN to LAD; SVG to DIAG, OM, PDA) SURGEON: Jayden Galvan MD POD#: 6 PATIENT ISSUES/EVENTS: no acute overnight events. PHYSICAL EXAM: General: no acute distress Heart Exam: regular rate and rhythm and no murmur, gallops, or rubs Lungs: normal respirations Abdominal Exam: abdomen soft and non-tender Extremities: warm, dry, well perfused, and slight edema below vein harvest sight Incision: sternotomy - clean, dry and intact, vein harvest site - clean, dry and intact Neurological: alert Pulses: dorsalis pedis CURRENT CORE CARDIAC MEDICATIONS: Beta Zeferino: yes ASA: yes Statin: yes SIMA-Inhibitor / ARB: no, explain -- renal insufficiency and or failure POSTOPERATIVE COMPLICATIONS: acute post op blood loss anemia atrial fibrillation renal dysfunction ADDITIONAL PROCEDURES: none ASSESSMENT/PLAN: Cardiovascular: -NSR, did have a vasovagal episode 07/12 with BM. -Afib 07/09 -> Amio 200 TID -Pressors/Inotropes: Dopamine weaned off 07/11 (Milrinone weaned off 07/09) -Beta zeferino: Coreg 3.125 -Norvasc held -Statin: Crestor 40mg -Pre-op EF 35% -Central Line(s): No -Pacer Wires: no Chronic Issues: -HTN on Coreg 12.5, Lisinopril 40, and Norvasc 5 -Hyperlipidemia on Crestor 40 and Zetia -HFrEF on Spironolactone 12.5 Pulmonary: -Satting well on 2L NCO2 (uses 2L nocturnal at baseline) -Daily CXR -Aggressive pulmonary toilet -Chest Tubes/Alen Drains: No Chronic Issues: -COPD on nocturnal 2L NCO2 GI: -Diet: Soft & bite-sized per patient request for chronic dysphagia -Bowel regimen -> + BM -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 INSULATION INSTALLER Protonix for GI prophylaxis /Renal: -Pre-op renal function normal, post-op BIJAL improving (last Cr 1.1) -Bejarano: No -PO lasix/kcl Chronic Issues: -BPH on Flomax and Avodart Hematology: -Hgb stable -INR 2.2 -Holding SQ Heparin for therapeutic INR -Aspirin 81mg x 1 week of triple therapy then Coumadin and Plavix only -Coumadin per pharmacy (Eliquis 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 INSULATION INSTALLER for apical thrombus) -Resume 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 INSULATION INSTALLER Plavix (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 INSULATION INSTALLER for prior CVA) -Blood products: None Neuro/P.T./O.T.: -Neurologically intact -Pain controlled -Increase activity as tolerated Chronic Issues: -Anxiety on Wellbutrin and Buspar -RLS on Remeron, Requip, and Lyrica Infectious Disease: -Afebrile -Post-op Ancef completed -Pre-op nasal culture and UA negative Endo: -No insulin needs (A1C 5.9) Plan: -Coreg 3.125 -Amio 200mg TID for post-op afib -Coumadin per pharmacy (Eliquis 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 INSULATION INSTALLER for apical thrombus) -Resume 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 INSULATION INSTALLER Plavix -Increase activity as tolerated -to rehab soon Stable Remains on baseline O2 Plan to rehab today if transportation arranged * Pt Handout (on AVS) - Usha Persaud LPN - 07/13/2024 4:22 PM EST [id number] Warfarin Brand Name(s): Coumadin, Jantoven; also available generically IMPORTANT WARNING: Warfarin may cause severe bleeding that can be life-threatening and even cause . Tell your doctor if you have or have ever had a blood or bleeding disorder; bleeding problems, especially in yourstomach or your esophagus (tube from the throat to the stomach), intestines, urinary tract or bladder, or lungs; high blood pressure; heart attack; angina (chest pain or pressure); heart disease; pericarditis (swelling of the lining (sac) around the heart); endocarditis (infection of one or more heart valves); a stroke or ministroke; aneurysm (weakening or tearing of an artery or vein); anemia (low number of red blood cells in the blood); cancer; chronic diarrhea; or kidney, or liver disease. Also tell your doctor if you fall often or have had a recent serious injury or surgery. Bleeding is more likely during warfarin treatment for people over 65 years of age, and it is also more likely during the first month of warfarin treatment. Bleeding is also more likely to occur for people who take high doses of warfarin, or take this medication for a long time. The risk for bleeding while takingwarfarin is also higher for people participating in an activity or sport that may result in seriousinjury. Tell your doctor and pharmacist if you are taking or plan to take any prescription or nonprescription medications, vitamins, nutritional supplements, and herbal or botanical products (See SPECIAL PRECAUTIONS), as some of these products may increase the risk for bleeding while you are takingwarfarin. If you experience any of the following symptoms, call your doctor immediately: pain, swelling, or discomfort, bleeding from a cut that does not stop in the usual amount of time, nosebleeds or bleeding from your gums, coughing up or vomiting blood or material that looks like coffee grounds, unusual bleeding or bruising, increased menstrual flow or vaginal bleeding, pink, red, or dark brown urine, red or tarry black bowel movements, headache, dizziness, or weakness. Some people may respond differently to warfarin based on their heredity or genetic make-up. Your doctor may order a blood test to help find the dose of warfarin that is best for you. Warfarin prevents blood from clotting so it may take longer than usual for you to stop bleeding if you are cut or injured. Avoid activities or sports that have a high risk of causing injury. Call your doctor if bleeding is unusual or if you fall and get hurt, especially if you hit your head. Keep all appointments with your doctor and the laboratory. Your doctor will order a blood test (PT [prothrombin test] reported as INR [international normalized ratio] value) regularly to check your body's response to warfarin. If your doctor tells you to stop taking warfarin, the effects of this medication may last for 2 to 5 days after you stop taking it. Your doctor or pharmacist will give you the tongue and groove machine feeder's patient information sheet (Medication Guide) when you begin treatment with warfarin and each time you refill your prescription. Read the information carefully and ask your doctor or pharmacist if you have any questions. You can also visit the Food and Drug Administration (FDA) website (https://www.fda.gov/downloads/Drugs/DrugSafety/soh119831.pdf) or the tongue and groove machine feeder's website to obtain the Medication Guide. Talk to your doctor about the risk(s) of taking warfarin. WHY is this medicine prescribed? Warfarin is used to prevent blood clots from forming or growing larger in your blood and blood vessels. It is prescribed for people with certain types of irregular heartbeat, people with prosthetic (replacement or mechanical) heart valves, and people who have suffered a heart attack. Warfarin is also used to treat or prevent venous thrombosis (swelling and blood clot in a vein) and pulmonary embolism (a blood clot in the lung). Warfarin is in a class of medications called anticoagulants ('bloodthinners'). It works by decreasing the clotting ability of the blood. HOW should this medicine be used? Warfarin comes as a tablet to take by mouth. It is usually taken once a day with or without food. Take warfarin at around the same time every day. Follow the directions on your prescription label carefully, and ask your doctor or pharmacist to explain any part you do not understand. Take warfarin exactly as directed. Do not take more or less of it or take it more often than prescribed by your doctor. Call your doctor immediately if you take more than your prescribed dose of warfarin. Your doctor will probably start you on a low dose of warfarin and gradually increase or decrease your dose based on the results of your blood tests. Make sure you understand any new dosing instructions from your doctor. Continue to take warfarin even if you feel well. Do not stop taking warfarin without talking to your doctor. Are there OTHER USES for this medicine? This medication may be prescribed for other uses; ask your doctor or pharmacist for more information. What SPECIAL PRECAUTIONS should I follow? Before taking warfarin, tell your doctor and pharmacist if you are allergic to warfarin, any other medications, or any of the ingredients in warfarin tablets. Ask your pharmacist or check the Medication Guide for a list of the ingredients. do not take two or more medications that contain warfarin at the same time. Be sure to check with your doctor or pharmacist if you are uncertain if a medication contains warfarin or warfarin sodium. tell your doctor and pharmacist what prescription and nonprescription medications, vitamins, andnutritional supplements you are taking or plan to take while taking warfarin. Your doctor may change the doses of your medications or monitor you carefully for side effects. the following nonprescription or herbal products may interact with warfarin: coenzyme Q10 (Ubidecarenone), Echinacea, garlic, Ginkgo biloba, ginseng, goldenseal, and [place]'s wort; omeprazole (Prilosec); famotidine (Pepcid AC); aspirin and nonsteroidal anti-inflammatory drugs (NSAIDS) such as ibuprofen (Advil, Motrin, others) and naproxen (Aleve). Be sure to let your doctor and pharmacist know that you are taking these medications before you start taking warfarin. Do not start any of thesemedications while taking warfarin without discussing with your healthcare provider. tell your doctor if you have or have ever had diabetes. Also tell your doctor if you have an infection, a gastrointestinal illness such as diarrhea, or sprue (an allergic reaction to protein foundin grains that causes diarrhea), or an indwelling catheter (a flexible plastic tube that is placed into the bladder to allow the urine to drain out). Tell your doctor if you are , think you might be , or plan to become while taking warfarin. women should not take warfarin unless they have a mechanical heart valve. Talk to your doctor about the use of effective control while taking warfarin. If you become while taking warfarin, call your doctor immediately. Warfarin may harm the fetus. tell your doctor if you are breast-feeding. if you are having surgery, including dental surgery, or any type of medical or dental procedure,tell the doctor or dentist that you are taking warfarin. Your doctor may tell you to stop taking warfarin before the surgery or procedure or change your dosage of warfarin before the surgery or procedure. Follow your doctor's directions carefully and keep all appointments with the laboratory if your doctor orders blood tests to find the best dose of warfarin for you. ask your doctor about the safe use of alcoholic beverages while you are taking warfarin. tell your doctor if you use tobacco products. Cigarette smoking may decrease the effectiveness of this medication. What SPECIAL DIETARY instructions should I follow? Eat a normal, healthy diet. Some foods and beverages, particularly those that contain vitamin K, can affect how warfarin works for you. Ask your doctor or pharmacist for a list of foods that contain vitamin K. Eat consistent amounts of vitamin K-containing food on a hevz-gx-mdub basis. Do not eat large amounts of leafy, green vegetables or certain vegetable oils that contain large amounts of vitamin K. Be sure to talk to your doctor before you make any changes in your diet. Talk to your doctor about eating grapefruit and drinking grapefruit juice while taking this medication. What should I do IF I FORGET to take a dose? Take the missed dose as soon as you remember it, if it is the same day that you were to take the dose. Do not take a double dose the next day to make up for a missed one. Call your doctor if you mynor dose of warfarin. What SIDE EFFECTS can this medicine cause? Warfarin may cause side effects. Tell your doctor if any of these symptoms are severe or do not go away: gas abdominal pain bloating change in the way things taste loss of hair feeling cold or having chills If you experience any of the following symptoms, or those listed in the IMPORTANT WARNING section, call your doctor immediately: hives rash itching difficulty breathing or swallowing swelling of the face, throat, tongue, lips, or eyes hoarseness chest pain or pressure swelling of the hands, feet, ankles, or lower legs fever infection nausea vomiting diarrhea extreme tiredness lack of energy loss of appetite pain in the upper right part of the stomach yellowing of the skin or eyes flu-like symptoms You should know that warfarin may cause necrosis or gangrene ( of skin or other body tissues).Call your doctor immediately if you notice a purplish or darkened color to your skin, skin changes,ulcers, or an unusual problem in any area of your skin or body, or if you have a severe pain that occurs suddenly, or color or temperature change in any area of your body. Call your doctor immediately if your toes become painful or become purple or dark in color. You may need medical care right away to prevent amputation (removal) of your affected body part. Warfarin may cause other side effects. Call your doctor if you have any unusual problems while taking this medication. What should I know about STORAGE and DISPOSAL of this medication? Keep this medication in the container it came in, tightly closed, and out of reach of children. Store it at room temperature and away from excess heat, moisture (not in the bathroom), and light. Unneeded medications should be disposed of in special ways to ensure that pets, children, and otherpeople cannot consume them. However, you should not flush this medication down the toilet. Instead,the best way to dispose of your medication is through a medicine take-back program. Talk to your pharmacist or contact your local garbage/recycling department to learn about take-back programs in your community. See the FDA's Safe Disposal of Medicines website (https://goo.gl/c4Rm4p) for more information if you do not have access to a take-back program. It is important to keep all medication out of sight and reach of children as many containers (such as weekly pill minders and those for eye drops, creams, patches, and inhalers) are not child-resistant and young children can open them easily. To protect young children from poisoning, always lock safety caps and immediately place the medication in a safe location -- one that is up and away and outof their sight and reach. https://www.[employer].org What should I do in case of OVERDOSE? In case of overdose, call the poison control helpline at . Information is also available online at https://www.poisonhelp.org/help. If the victim has collapsed, had a seizure, has trouble breathing, or can't be awakened, immediately call emergency services at 484. Symptoms of overdose may include the following: bloody or red, or tarry bowel movements spitting or coughing up blood heavy bleeding with your menstrual period pink, red, or dark brown urine coughing up or vomiting material that looks like coffee grounds small, flat, round red spots under the skin unusual bruising or bleeding continued oozing or bleeding from minor cuts What OTHER INFORMATION should I know? Carry an identification card or wear a bracelet stating that you take warfarin. Ask your pharmacistor doctor how to obtain this card or bracelet. List your name, medical problems, medications and dosages, and doctor's name and telephone number on the card. Tell all your healthcare providers that you take warfarin. Do not let anyone else take your medication. Ask your pharmacist any questions you have about refilling your prescription. It is important for you to keep a written list of all of the prescription and nonprescription (cvoj-bht-aikzuuj) medicines you are taking, as well as any products such as vitamins, minerals, or otherdietary supplements. You should bring this list with you each time you visit a doctor or if you areadmitted to a hospital. It is also important information to carry with you in case of emergencies. This report on medications is for your information only, and is not considered individual patient advice. Because of the changing nature of drug information, please consult your physician or pharmacist about specific clinical use. [employer] represents that the information provided hereunder was formulated with a reasonable standard of care, and in conformity with professional standards in the field. [employer] makes no representations or warranties, express or implied, including, but not limited to, any implied warranty of merchantability and/or fitness for a particular purpose, with respect to such information and specifically disclaims all such warranties. Users are advised that decisions regarding drug therapy are complex medical decisions requiring the independent, informed decision of an appropriate health palliative care specialist, and the information is provided for informational purposes only. The entire monograph for a drug should be reviewed for a thorough understanding of the drug's actions, uses and side effects. [employer] does not endorse or recommend the use of any drug.The information is not a substitute for medical care. [facility] Patient Medication Information?. Copyright, 2023. [employer], [facility], [address], [place], [place]. All Rights Reserved. Duplication for commercial use must be authorized by [facility]. Selected Revisions: December 21, 2016. [facility] Patient Medication Information?. Copyright, 2024 * Pt Handout (on AVS) - Usha Persaud LPN - 07/13/2024 4:19 PM EST [id number] Warfarin Brand Name(s): Coumadin, Jantoven; also available generically IMPORTANT WARNING: Warfarin may cause severe bleeding that can be life-threatening and even cause . Tell your doctor if you have or have ever had a blood or bleeding disorder; bleeding problems, especially in yourstomach or your esophagus (tube from the throat to the stomach), intestines, urinary tract or bladder, or lungs; high blood pressure; heart attack; angina (chest pain or pressure); heart disease; pericarditis (swelling of the lining (sac) around the heart); endocarditis (infection of one or more heart valves); a stroke or ministroke; aneurysm (weakening or tearing of an artery or vein); anemia (low number of red blood cells in the blood); cancer; chronic diarrhea; or kidney, or liver disease. Also tell your doctor if you fall often or have had a recent serious injury or surgery. Bleeding is more likely during warfarin treatment for people over 65 years of age, and it is also more likely during the first month of warfarin treatment. Bleeding is also more likely to occur for people who take high doses of warfarin, or take this medication for a long time. The risk for bleeding while takingwarfarin is also higher for people participating in an activity or sport that may result in seriousinjury. Tell your doctor and pharmacist if you are taking or plan to take any prescription or nonprescription medications, vitamins, nutritional supplements, and herbal or botanical products (See SPECIAL PRECAUTIONS), as some of these products may increase the risk for bleeding while you are takingwarfarin. If you experience any of the following symptoms, call your doctor immediately: pain, swelling, or discomfort, bleeding from a cut that does not stop in the usual amount of time, nosebleeds or bleeding from your gums, coughing up or vomiting blood or material that looks like coffee grounds, unusual bleeding or bruising, increased menstrual flow or vaginal bleeding, pink, red, or dark brown urine, red or tarry black bowel movements, headache, dizziness, or weakness. Some people may respond differently to warfarin based on their heredity or genetic make-up. Your doctor may order a blood test to help find the dose of warfarin that is best for you. Warfarin prevents blood from clotting so it may take longer than usual for you to stop bleeding if you are cut or injured. Avoid activities or sports that have a high risk of causing injury. Call your doctor if bleeding is unusual or if you fall and get hurt, especially if you hit your head. Keep all appointments with your doctor and the laboratory. Your doctor will order a blood test (PT [prothrombin test] reported as INR [international normalized ratio] value) regularly to check your body's response to warfarin. If your doctor tells you to stop taking warfarin, the effects of this medication may last for 2 to 5 days after you stop taking it. Your doctor or pharmacist will give you the tongue and groove machine feeder's patient information sheet (Medication Guide) when you begin treatment with warfarin and each time you refill your prescription. Read the information carefully and ask your doctor or pharmacist if you have any questions. You can also visit the Food and Drug Administration (FDA) website (https://www.fda.gov/downloads/Drugs/DrugSafety/lmw629423.pdf) or the tongue and groove machine feeder's website to obtain the Medication Guide. Talk to your doctor about the risk(s) of taking warfarin. WHY is this medicine prescribed? Warfarin is used to prevent blood clots from forming or growing larger in your blood and blood vessels. It is prescribed for people with certain types of irregular heartbeat, people with prosthetic (replacement or mechanical) heart valves, and people who have suffered a heart attack. Warfarin is also used to treat or prevent venous thrombosis (swelling and blood clot in a vein) and pulmonary embolism (a blood clot in the lung). Warfarin is in a class of medications called anticoagulants ('bloodthinners'). It works by decreasing the clotting ability of the blood. HOW should this medicine be used? Warfarin comes as a tablet to take by mouth. It is usually taken once a day with or without food. Take warfarin at around the same time every day. Follow the directions on your prescription label carefully, and ask your doctor or pharmacist to explain any part you do not understand. Take warfarin exactly as directed. Do not take more or less of it or take it more often than prescribed by your doctor. Call your doctor immediately if you take more than your prescribed dose of warfarin. Your doctor will probably start you on a low dose of warfarin and gradually increase or decrease your dose based on the results of your blood tests. Make sure you understand any new dosing instructions from your doctor. Continue to take warfarin even if you feel well. Do not stop taking warfarin without talking to your doctor. Are there OTHER USES for this medicine? This medication may be prescribed for other uses; ask your doctor or pharmacist for more information. What SPECIAL PRECAUTIONS should I follow? Before taking warfarin, tell your doctor and pharmacist if you are allergic to warfarin, any other medications, or any of the ingredients in warfarin tablets. Ask your pharmacist or check the Medication Guide for a list of the ingredients. do not take two or more medications that contain warfarin at the same time. Be sure to check with your doctor or pharmacist if you are uncertain if a medication contains warfarin or warfarin sodium. tell your doctor and pharmacist what prescription and nonprescription medications, vitamins, andnutritional supplements you are taking or plan to take while taking warfarin. Your doctor may change the doses of your medications or monitor you carefully for side effects. the following nonprescription or herbal products may interact with warfarin: coenzyme Q10 (Ubidecarenone), Echinacea, garlic, Ginkgo biloba, ginseng, goldenseal, and [place]'s wort; omeprazole (Prilosec); famotidine (Pepcid AC); aspirin and nonsteroidal anti-inflammatory drugs (NSAIDS) such as ibuprofen (Advil, Motrin, others) and naproxen (Aleve). Be sure to let your doctor and pharmacist know that you are taking these medications before you start taking warfarin. Do not start any of thesemedications while taking warfarin without discussing with your healthcare provider. tell your doctor if you have or have ever had diabetes. Also tell your doctor if you have an infection, a gastrointestinal illness such as diarrhea, or sprue (an allergic reaction to protein foundin grains that causes diarrhea), or an indwelling catheter (a flexible plastic tube that is placed into the bladder to allow the urine to drain out). Tell your doctor if you are , think you might be , or plan to become while taking warfarin. women should not take warfarin unless they have a mechanical heart valve. Talk to your doctor about the use of effective control while taking warfarin. If you become while taking warfarin, call your doctor immediately. Warfarin may harm the fetus. tell your doctor if you are breast-feeding. if you are having surgery, including dental surgery, or any type of medical or dental procedure,tell the doctor or dentist that you are taking warfarin. Your doctor may tell you to stop taking warfarin before the surgery or procedure or change your dosage of warfarin before the surgery or procedure. Follow your doctor's directions carefully and keep all appointments with the laboratory if your doctor orders blood tests to find the best dose of warfarin for you. ask your doctor about the safe use of alcoholic beverages while you are taking warfarin. tell your doctor if you use tobacco products. Cigarette smoking may decrease the effectiveness of this medication. What SPECIAL DIETARY instructions should I follow? Eat a normal, healthy diet. Some foods and beverages, particularly those that contain vitamin K, can affect how warfarin works for you. Ask your doctor or pharmacist for a list of foods that contain vitamin K. Eat consistent amounts of vitamin K-containing food on a pnfn-[id number] basis. Do not eat large amounts of leafy, green vegetables or certain vegetable oils that contain large amounts of vitamin K. Be sure to talk to your doctor before you make any changes in your diet. Talk to your doctor about eating grapefruit and drinking grapefruit juice while taking this medication. What should I do IF I FORGET to take a dose? Take the missed dose as soon as you remember it, if it is the same day that you were to take the dose. Do not take a double dose the next day to make up for a missed one. Call your doctor if you mynor dose of warfarin. What SIDE EFFECTS can this medicine cause? Warfarin may cause side effects. Tell your doctor if any of these symptoms are severe or do not go away: gas abdominal pain bloating change in the way things taste loss of hair feeling cold or having chills If you experience any of the following symptoms, or those listed in the IMPORTANT WARNING section, call your doctor immediately: hives rash itching difficulty breathing or swallowing swelling of the face, throat, tongue, lips, or eyes hoarseness chest pain or pressure swelling of the hands, feet, ankles, or lower legs fever infection nausea vomiting diarrhea extreme tiredness lack of energy loss of appetite pain in the upper right part of the stomach yellowing of the skin or eyes flu-like symptoms You should know that warfarin may cause necrosis or gangrene ( of skin or other body tissues).Call your doctor immediately if you notice a purplish or darkened color to your skin, skin changes,ulcers, or an unusual problem in any area of your skin or body, or if you have a severe pain that occurs suddenly, or color or temperature change in any area of your body. Call your doctor immediately if your toes become painful or become purple or dark in color. You may need medical care right away to prevent amputation (removal) of your affected body part. Warfarin may cause other side effects. Call your doctor if you have any unusual problems while taking this medication. What should I know about STORAGE and DISPOSAL of this medication? Keep this medication in the container it came in, tightly closed, and out of reach of children. Store it at room temperature and away from excess heat, moisture (not in the bathroom), and light. Unneeded medications should be disposed of in special ways to ensure that pets, children, and otherpeople cannot consume them. However, you should not flush this medication down the toilet. Instead,the best way to dispose of your medication is through a medicine take-back program. Talk to your pharmacist or contact your local garbage/recycling department to learn about take-back programs in your community. See the FDA's Safe Disposal of Medicines website (https://goo.gl/c4Rm4p) for more information if you do not have access to a take-back program. It is important to keep all medication out of sight and reach of children as many containers (such as weekly pill minders and those for eye drops, creams, patches, and inhalers) are not child-resistant and young children can open them easily. To protect young children from poisoning, always lock safety caps and immediately place the medication in a safe location -- one that is up and away and outof their sight and reach. https://www.upandaway.org What should I do in case of OVERDOSE? In case of overdose, call the poison control helpline at . Information is also available online at https://www.poisonhelp.org/help. If the victim has collapsed, had a seizure, has trouble breathing, or can't be awakened, immediately call emergency services at 046. Symptoms of overdose may include the following: bloody or red, or tarry bowel movements spitting or coughing up blood heavy bleeding with your menstrual period pink, red, or dark brown urine coughing up or vomiting material that looks like coffee grounds small, flat, round red spots under the skin unusual bruising or bleeding continued oozing or bleeding from minor cuts What OTHER INFORMATION should I know? Carry an identification card or wear a bracelet stating that you take warfarin. Ask your pharmacistor doctor how to obtain this card or bracelet. List your name, medical problems, medications and dosages, and doctor's name and telephone number on the card. Tell all your healthcare providers that you take warfarin. Do not let anyone else take your medication. Ask your pharmacist any questions you have about refilling your prescription. It is important for you to keep a written list of all of the prescription and nonprescription ([id number]-kvgolrw) medicines you are taking, as well as any products such as vitamins, minerals, or otherdietary supplements. You should bring this list with you each time you visit a doctor or if you areadmitted to a hospital. It is also important information to carry with you in case of emergencies. This report on medications is for your information only, and is not considered individual patient advice. Because of the changing nature of drug information, please consult your physician or pharmacist about specific clinical use. The [place] [employer] represents that the information provided hereunder was formulated with a reasonable standard of care, and in conformity with professional standards in the field. The [place] [employer] makes no representations or warranties, express or implied, including, but not limited to, any implied warranty of merchantability and/or fitness for a particular purpose, with respect to such information and specifically disclaims all such warranties. Users are advised that decisions regarding drug therapy are complex medical decisions requiring the independent, informed decision of an appropriate health palliative care specialist, and the information is provided for informational purposes only. The entire monograph for a drug should be reviewed for a thorough understanding of the drug's actions, uses and side effects. The [place] [employer] does not endorse or recommend the use of any drug.The information is not a substitute for medical care. [facility] Patient Medication Information?. Copyright, 2023. The [place] [employer], [facility], [address], [place], [place]. All Rights Reserved. Duplication for commercial use must be authorized by [facility]. Selected Revisions: December 21, 2016. [facility] Patient Medication Information?. Copyright, 2024 * Ancillary Progress Note - Jessica Stanford Chaplain - 07/13/2024 11:21 AM EST PROGRESS NOTE - Spiritual Care Contact Information [facility] [place]-[address] [address] Name: Henri Vigil Location: [facility] [place] H760/A Date: 07/13/2024 Time: 11:21 AM Yazidi: No Mormon Pref [66] Mormon Affiliations: REASON FOR VISIT: request REQUEST RECEIVED FROM: staff member - Name: telephone worker VISIT LENGTH: 30 REQUEST FACTORS (Nature of Situation): Continuum of Care and patient requesst FOCUS OF CARE: Patient SPIRITUAL ASSESSMENT: Cindi or Belief System: Religion Most Important Need(s) / Concern(s): Crying, Sad, and experience of what he identified as a miracle, purpose in life Sense of Community and/or Mormon Affiliation: Religion, considering eventual return to latter-day Addresses need(s)/concerns(s) and/or skyla through: Emotional expression, Cindi, Family, God/HigherPower SPIRITUAL CARE PROVIDED: Operating Room Specialist addressed needs/concerns and/or coping through: Listening presence, Prayer, and Supportivedialogue REFERRAL TO: N/A OUTCOMES: Comfort/Healing Presence, hope ANNOTATION: The patient was in tears today. He began with concerns that once he is finished with rehab and back home, he will not be able to cook for himself. He also talked about his profession as [employer]. He stopped this in June. He talked about "going downhill" and not knowing what he would do moving forward. I suggested talking with a critical care physician assistant about both the above concerns. We discussed possible options that are extensions of his skill set that he might be able to manage, not with a goal of locking in a new vocation but to inspire hope that he will have a purpose. This brightened his mood. He also told me that he had briefly yesterday and that he saw his parents as well as siblings. He said they all told him that he had to go back (to [place]) to care for other family members, as he is the last one left who an do so. He asked to be kept on the follow up list. He is aware that he can also request a telephone worker anytime. I spoke with the nurse about care management, who is already involved. * Ancillary Progress Note - Haydee Mancuso COTA - 07/13/2024 11:11 AM EST PROGRESS NOTE - Occupational Therapy [facility] [place] [address] Name: Henri Vigil Location: [facility] [place] H760/A Date: 07/13/2024 Time: 11:11 AM Henri Vigil is a 73 year old male. Patient Status: Inpatient Insurance: Payor: [facility] Step Labs Plan: [employer] 360 RX MH-1D Product Type: *No Product type* Patient Seen: at bedside, nursing cleared patient for therapy Patient Identified By: Name, ID Band and Date Diagnosis: s/p CABGx4 (07/13/241106) Status of treatment: Treatment completed (07/13/241106) Orders: OT evaluation and treatment (07/13/241106) Weight Bearing Status: Weight bearing as tolerated (07/13/241106) Precautions: Alarms;Falls;Safety;Cardiac;Oxygen;Sternal (07/13/241106) Total Treatment Time: 12 (07/13/241106) Pain: No complaints of pain Current Functional Status: Activities of Daily Living: Self Care Grooming: Supervision (Please comment) (07/13/241106) Dressing Upper Body: Supervision (Please comment) (07/13/241106) Lower Body: Supervision (Please comment) (07/13/241106) Functional Ambulation Assistive Device: Rolling walker (07/13/241106) Level of Assistance: Contact Guard (to Minimal assistance) (07/13/241106) OT Transfers Sit-Stand: Supervision (Please comment) (07/13/241106) Stand-Sit: Supervision (Please comment) (07/13/241106) Balance Sit (Static): Fair (07/13/241106) Sit (Dynamic): Fair (07/13/241106) Stand (Static): (Fair-) (07/13/241106) Stand (Dynamic): (Fair- to Poor+) (07/13/241106) Alarm Status Patient positioned in: Chair (07/13/241106) With: Pressure pad alarm intact and functioning and call brewer in reach (07/13/241106) Following session patient seated OOB in chair with chair alarm activated. Chair alarm (did not havecord to plug into call brewer system and/or room did not have port to plug cord into call brewer system). Patient's nurse was made aware. Treatment Provided: Self Long Term Management Trainin minutes Deficits requiring O.T. treatment needs: ADL/self- care;Balance;Endurance;Functional mobility;Safety;Upper extremity strength;Weakness (07/10/24 1022) Assessment: Seated in recliner upon entering room. Pleasant and motivated throughout session. Patient demonstrates grooming, upper and lower body dressing supervision level setup. Patient demonstrates functional transfers supervision level using rolling walker. Patient demonstrates functional ambulation with contact guard assistance to minimal assistance using rolling walker with multiple seated and standing rest breaks secondary to fatigue and shortness of breath. Patient noted to have decreased safety awareness with impulsivity noted during session. Patient would benefit from continued OT services to maximize functional independence. Please consider post-acute care services which may include home health, senior living, outpatient therapy or inpatient rehabilitation. The level of care will be determined in collaboration with patient, family/caregiver and care team members. Plan: Will continue to follow as per plan. Anticipated Frequency (on eval): (1-5 times per week) (07/13/241106) AM-PAC Help From Another Person Eating Meals: A little (07/13/241106) Help From Another Person Taking Care of Personal Grooming: A little (07/13/241106) Help From Another Person To Put On/Take Off Upper Body Clothing: A little (07/13/241106) Help From Another Person To Put On/Take Off Lower Body Clothing: A little (07/13/241106) Help From Another Person Toileting: A little (07/13/241106) Help From Another Person Bathing: A little (07/13/241106) OT AM-PAC Score: 18 (07/13/241106) OT AM-PAC t-Scale Score: 38.66 (07/13/241106) A portion of this AM-PAC assessment not scored based on functional assessment; rather clinical decision making utilized based on current findings and/or prior level of function. Please refer to future AM-PAC calculations of functional ability as they become available. * Ancillary Progress Note - RosalindaAntoniaDEN - 07/13/2024 10:24 AM EST PROGRESS NOTE - Physical Therapy [facility] [place]-[address] [address] Name: Henri Vigil Location: [facility] Date: 07/13/2024 Time: 10:24 AM Henri Vigil is a/an 73 year old male. Patient Status: Inpatient Insurance: Payor: [employer] Plan: [employer] 360 RX MH-1D Product Type: *No Product type* Patient Seen: at bedside, nursing cleared patient for therapy Patient Identified By: Name, ID Band and Date Diagnosis: s/p CABG (07/13/24 1024) Status of treatment: Treatment completed (07/13/24 1024) Orders: PT evaluation and treatment (07/13/24 1024) Weight Bearing Status: Weight bearing as tolerated (07/13/24 1024) Precautions: Alarms;Sternal;Oxygen;Safety;Falls (07/13/24 1024) Total Treatment Time--free text: 24 (07/13/24 1024) Subjective: "I want to walk to the end of the dong." Pain: No complaints of pain P.T. Bed Mobility Supine-Sit: Supervision (07/10/24 1039) Transfers Sit-Stand: Supervision (07/13/24 1024) Stand-Sit: Supervision (07/13/24 1024) Ambulation: Distance ambulated (feet): 50'x2 Assistive Device: Rolling walker Assist: Minimal Assistance and chair follow Balance Sit (Static): Fair (07/13/24 1024) Sit (Dynamic): Fair (07/13/24 1024) Stand (Static): Fair (-) (07/13/24 1024) Stand (Dynamic): Poor (+) (07/13/24 1024) Patient and or Family Goal(s): to get well and to return home Topic of Education: Safety with mobility, Use of assistive device, and sternal precautions. Method of Education: Verbal discussion and explanation provided to pt: verbalized understanding andor agreement of this information Treatment Provided: Gait Training 24 minutes: gait training with rolling walker Alarm Status Patient positioned in: Chair (07/13/241023) With: Pressure pad alarm intact and functioning and call brewer in reach (07/13/241023) Following session patient seated OOB in chair with chair alarm activated. Chair alarm (did not havecord to plug into call brewer system and/or room did not have port to plug cord into call brewer system). Patient's nurse was made aware. Patient Education Review of Precautions: Sternal (07/13/241023) Safety Awareness: Patient verbalizes insight of current deficits;Patient demonstrates carryover of insight during functional tasks;Patient can communicate basic needs;Needs cueing supervision (07/11/24926) Preferred learning method: Combination (07/11/24926) Barriers to learning: Medical Status (07/11/24926) Method of Education: Verbalized to patient;Patient demonstrated task (07/11/24926) Assessment: Pt with improved tolerance to therapy session. He was able to complete functional mobility with supervision assist to minimal assist and with use of RW. He was able to increase ambulationdistance to 50'x2, requiring a seated rest between gait trials. He was limited due to mild complaints of SOB. Vitals WNL during session. Pt can be impulsive, requiring cues to increase safety and decrease falls risk. Please consider post-acute care services which may include home health, senior living, outpatient therapy or inpatient rehabilitation. The level of care will be determined in collaboration with patient, family/caregiver and care team members. Deficits requiring P.T. treatment needs: Safety;Mobility;Balance;Endurance (07/13/241023) Equipment needs: Rolling walker (07/11/24926) Plan: Continue with current treatment plan established on evaluation. AM PAC Score with Stairs: 17 A portion of this AM-PAC assessment not scored based on functional assessment; rather clinical decision making utilized based on current findings and/or prior level of function. Please refer to future AM-PAC calculations of functional ability as they become available. * Progress Notes - Post-Op Viktoria - Jayden Galvan MD - 07/13/2024 12:55 AM EST PROGRESS NOTE - CARDIAC SURGERY [facility] [place]-[address] [address] Name: Henri Vigil Location: [facility] [place] H760/A Date: 07/12/2024 Time: 11:52 PM OPERATION: CABG X 4 (CAN to LAD; SVG to DIAG, OM, PDA) SURGEON: Jayden Galvan MD POD#: 5 PATIENT ISSUES/EVENTS: stable interval PHYSICAL EXAM: General: no acute distress Heart Exam: regular rate and rhythm and no murmur, gallops, or rubs Lungs: normal respirations Abdominal Exam: abdomen soft and non-tender Extremities: warm, dry, well perfused, and slight edema below vein harvest sight Incision: sternotomy - clean, dry and intact, vein harvest site - clean, dry and intact Neurological: alert Pulses: dorsalis pedis CURRENT CORE CARDIAC MEDICATIONS: Beta Zeferino: yes ASA: yes Statin: yes SIMA-Inhibitor / ARB: no, explain -- renal insufficiency and or failure POSTOPERATIVE COMPLICATIONS: acute post op blood loss anemia atrial fibrillation renal dysfunction ADDITIONAL PROCEDURES: none ASSESSMENT/PLAN: Cardiovascular: -NSR, did have a vasovagal episode 07/12 with BM. -Afib 07/09 -> Amio 200 TID -Pressors/Inotropes: Dopamine weaned off 07/11 (Milrinone weaned off 07/09) -Beta zeferino: Coreg 3.125 -Norvasc held -Statin: Crestor 40mg -Pre-op EF 35% -Central Line(s): No -Pacer Wires: no Chronic Issues: -HTN on Coreg 12.5, Lisinopril 40, and Norvasc 5 -Hyperlipidemia on Crestor 40 and Zetia -HFrEF on Spironolactone 12.5 Pulmonary: -Satting well on 2L NCO2 (uses 2L nocturnal at baseline) -Daily CXR -Aggressive pulmonary toilet -Chest Tubes/Alen Drains: No Chronic Issues: -COPD on nocturnal 2L NCO2 GI: -Diet: Soft & bite-sized per patient request for chronic dysphagia -Bowel regimen -> + BM -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 INSULATION INSTALLER Protonix for GI prophylaxis /Renal: -Pre-op renal function normal, post-op BIJAL improving (last Cr 1.1) -Bejarano: No -IV Lasix 40mg prn Chronic Issues: -BPH on Flomax and Avodart Hematology: -Hgb stable -INR 2.5 -Holding SQ Heparin for therapeutic INR -Aspirin 81mg x 1 week of triple therapy then Coumadin and Plavix only -Coumadin per pharmacy (Eliquis 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 INSULATION INSTALLER for apical thrombus) -Resume 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 INSULATION INSTALLER Plavix (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 INSULATION INSTALLER for prior CVA) -Blood products: None Neuro/P.T./O.T.: -Neurologically intact -Pain controlled -Increase activity as tolerated Chronic Issues: -Anxiety on Wellbutrin and Buspar -RLS on Remeron, Requip, and Lyrica Infectious Disease: -Afebrile -Post-op Ancef completed -Pre-op nasal culture and UA negative Endo: -No insulin needs (A1C 5.9) Plan: -Coreg 3.125 -Amio 200mg TID for post-op afib -Coumadin per pharmacy (Eliquis 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 INSULATION INSTALLER for apical thrombus) -Resume 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 INSULATION INSTALLER Plavix -Increase activity as tolerated -to rehab on Sunday Looks and feels good today Still on NC O2 Plavix Coumadin for apical thrombus Plan rehab Sunday * Ancillary Progress Note - Edson Alston Chaplain - 07/12/2024 6:48 AM EST PROGRESS NOTE - Spiritual Care Contact Information [address] [address] Name: Henri Vigil Location: [facility] [place] H760/A Date: 07/12/2024 Time: 6:49 AM Yazidi: No Mormon Pref [66] Mormon Affiliations: REASON FOR VISIT: request REQUEST RECEIVED FROM: staff member - Name: Maria Eugenia Florentino RN VISIT LENGTH: .5hr REQUEST FACTORS (Nature of Situation): Crisis Situation FOCUS OF CARE: Patient SPIRITUAL ASSESSMENT: Cindi or Belief System: Caodaism Most Important Need(s) / Concern(s): Anxiety, Crying, Grief, Loss of hope, Sad, Spiritual distress,and Weary Sense of Community and/or Mormon Affiliation: did not identify Addresses need(s)/concerns(s) and/or skyla through: Emotional expression, Cindi, Family, God/HigherPower SPIRITUAL CARE PROVIDED: Operating Room Specialist addressed needs/concerns and/or coping through: [place], Crisis intervention, Facilitating sharing/expression, Facilitating grief, Listening presence, Prayer, and Supportive dialogue REFERRAL TO: Insulation Packer OUTCOMES: [place], Comfort/Healing Presence, Emotional Release, Identifying Patient's Strengths/Source of Hope ANNOTATION: Maria Eugenia CURIEL requested a supportive visit to pt who's post-op in CICU [id number] for this visit. This CH visited pt at bedside. He was sitting up slightly and awake and aware, wanting to be conversational with a telephone worker. Pt is quaker. He complained of great weariness(while denying pain), and was tearful saying he "didn't want to be back," and claimed he and saw his parents(NDE ?). He further claimed that they "sent him back because it 'wasn't his time.'" CH provided grief support of him missing his parents, supportive conversation, validation of his feelings, encouraged him to be patient with himself in his recovery, and offered prayer that he desired. His (Mariama) li ves about 1.5 hrs hours away and works until 9-10pm, thus she hasn't been to see him much. He was coping more effectively at close of visit. He requests further telephone worker follow-up to support his spiritual needs. * Care Plan - Maria Eugenia Florentino RN - 07/12/2024 5:21 AM EST Clinical Goal(s): Patient will remain free from injury this shift (07/11/241999) Possible barriers to meeting goal(s)/advancing plan of care: Weakness wth ambulation, decreased oral intake, post-op cardiac surgery. Stability of the patient: Moderately stable - low risk of patient condition declining or worsening Summary regarding today's goal(s): Met: Patient remained free from injury this shift Recommendations: Continue following with PT/OT before discharge to rehab, continue following fall risk precautions, including non-skid socks, hourly rounding, and active bed and chair alarms. * Progress Notes - Post-Op Global - Jayden Galvan MD - 07/12/2024 12:36 AM EST PROGRESS NOTE - CARDIAC SURGERY [facility] [place] [address] Name: Henri Vigil Location: [facility] [place] H760/A Date: 07/12/2024 Time: 12:36 AM OPERATION: CABG X 4 (CAN to LAD; SVG to DIAG, OM, PDA) SURGEON: Jayden Galvan MD POD#: 4 PATIENT ISSUES/EVENTS: Dopamine off, coreg started and tolerated. PHYSICAL EXAM: General: no acute distress Heart Exam: regular rate and rhythm and no murmur, gallops, or rubs Lungs: normal respirations Abdominal Exam: abdomen soft and non-tender Extremities: warm, dry, well perfused, and slight edema below vein harvest sight Incision: sternotomy - clean, dry and intact, vein harvest site - clean, dry and intact Neurological: alert Pulses: dorsalis pedis CURRENT CORE CARDIAC MEDICATIONS: Beta Zeferino: yes ASA: yes Statin: yes SIMA-Inhibitor / ARB: no, explain -- renal insufficiency and or failure POSTOPERATIVE COMPLICATIONS: acute post op blood loss anemia atrial fibrillation renal dysfunction ADDITIONAL PROCEDURES: none ASSESSMENT/PLAN: Cardiovascular: -NSR, rate 60s, SBP 110-130s -Afib 07/09 -> Amio 200 TID -Pressors/Inotropes: Dopamine weaned off 07/11 (Milrinone weaned off 07/09) -Beta zeferino: Coreg 6.25 -Norvasc 5 -Statin: Crestor 40mg -Pre-op EF 35% -Central Line(s): No -Pacer Wires: no Chronic Issues: -HTN on Coreg 12.5, Lisinopril 40, and Norvasc 5 -Hyperlipidemia on Crestor 40 and Zetia -HFrEF on Spironolactone 12.5 Pulmonary: -Satting well on 2L NCO2 (uses 2L nocturnal at baseline) -Daily CXR -Aggressive pulmonary toilet -Chest Tubes/Alen Drains: No Chronic Issues: -COPD on nocturnal 2L NCO2 GI: -Diet: Soft & bite-sized per patient request for chronic dysphagia -Bowel regimen -> no BM since surgery -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 INSULATION INSTALLER Protonix for GI prophylaxis /Renal: -Pre-op renal function normal, post-op BIJAL improving (last Cr 1.1) -Bejarano: No -IV Lasix 40mg prn Chronic Issues: -BPH on Flomax and Avodart Hematology: -Hgb stable -INR 2.5 -Holding SQ Heparin for plt < 100 -Aspirin 81mg x 1 week of triple therapy then Coumadin and Plavix only -Coumadin per pharmacy (Eliquis 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 INSULATION INSTALLER for apical thrombus) -Resume 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 INSULATION INSTALLER Plavix (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 INSULATION INSTALLER for prior CVA) -Blood products: None Neuro/P.T./O.T.: -Neurologically intact -Pain controlled -Increase activity as tolerated Chronic Issues: -Anxiety on Wellbutrin and Buspar -RLS on Remeron, Requip, and Lyrica Infectious Disease: -Afebrile, WBC 9.22 -Post-op Ancef completed -Pre-op nasal culture and UA negative Endo: -No insulin needs (A1C 5.9) Plan: -Coreg 6.25mg + Norvasc 5mg -Amio 200mg TID for post-op afib -Coumadin per pharmacy (Eliquis 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 INSULATION INSTALLER for apical thrombus) -Resume 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 INSULATION INSTALLER Plavix today (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 INSULATION INSTALLER for prior CVA) -Increase activity as tolerated Stable Still on NC O2 In SR Cont diuresis Discharge planning * Respiratory Progress Note - Danya Eaton, IT LEAD - 07/11/2024 12:45 PM EST PDP RE-EVALUATION NOTE - Respiratory Care Services [facility] [place] [address] Name: Henri Vigil Location: [facility] [place] H760/A Date: 07/11/2024 Time: 12:46 PM Patient Driven Protocol Summary: Re-evaluation . This Treatment Plan and medications will be reviewed by the Primary Care Team for any contraindications. Respiratory Care Treatment Plan Aerosol Therapy Treatment:: Hand Held Nebulizer Tx PRN with Albuterol Sulfate: Unit dose 0.083%. to reduce work of breathing and improve pulmonary gas exchange. . Pulmonary Volume Expansion Therapy: Incentive Spirometry PRN to prevent or treat alveolar consolidation and atelectasis. . Secretion Management Treatment: Flutter TherapyPRN to enhance mobilization of secretions. .. The patient will be re-evaluated: No re-evaluation needed. Indications for treatment met. The Triage Level is: (Assessment Score = 6 -10) Level 4. Triage Level Definitions: Level 1 Severe Respiratory/Airway Compromise Level 2 Moderate Respiratory/Airway Compromise or high risk for pulmonary complications Level 3 Mild Respiratory/Airway Compromise or moderate risk for pulmonary complications Level 4 Episodic Respiratory/Airway Compromise or low risk for pulmonary complications Level 5 No Respiratory/Airway Compromise Triage 1 Triage 2 Triage 3 Triage 4 Triage 5 greater than 20 16 - 20 11 - 15 6 - 10 0 - 5 Medical Record Assessment Clinical Findings Pulmonary Status: 3 - Pulm Impairment (acute or chronic) w/o exacerbation, or 1 - 2 rib fractures Surgical Status: 4 - Thoracic or Abdominal with Pulmonary Disease Chest X-Ray: 2 - Infiltrates and/or Atelectasis Assessment Score: 9 Patient Assessment Clinical Findings Respiratory Pattern: 0 - RR 12 - 20; Patient only gets breathless with strenuous exercise. Breath Sounds: 0 - Clear to auscultation Cough Effectiveness: 0 - Strong non-productive Sputum Production 0 - No sputum production Level of Activity: 0 - Ambulatory O2 needed to keep SpO2 greater than or equal to 92%: 0 - Room Air Assessment Score: 0 Total Assessment Score: 9 Breath Sounds: Inspiratory and expiratory clear and diminished bilaterally. Mild wheezing with exertion. Patient states this is normal. Cough and Sputum: An effective cough produced no sputum... Vital Signs: Resp: 13 (07/11/241199) Pulse: 63 (07/11/241199) Temp: 36.4 C (97.5 F) (07/11/241199) BP: 115/74 (07/11/241199) SpO2: 80 % (07/11/241199) PFT: Minimal Predicted IC: 1.07 L. Inspiratory capacity: 1.0L. Primary Service: Cardiac Surgery. 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 CXR: mild pulmonary vascular congestion and small left pleural effusion . * Ancillary Progress Note - Randy Kilgore RN - 07/11/2024 11:12 AM EST POST ACUTE CARE CARE MANAGEMENT [address] [address] Name: Henri Vigil Location: [facility] [place] H760/A Date: 07/11/2024 Time: 11:13 AM Post-Acute Care Patient General Information Living Quarters: Apartment (07/09/241625) How many stories is the dwelling?: One Story (07/09/241625) Number of steps to enter living quarters:: 2 (07/09/241625) Location of bathroom(s): All floors or Single story dwelling (07/09/241625) History of falling: No (07/11/24 08) What was your living situation prior to admission/observation?: Independently (07/09/241830) Do you have any children, pets, or other dependents that you are currently caring for?: No (07/09/241830) AM-PAC Score With Stairs : 17 (07/11/24 0927) Post-Acute Care with AM-PAC < 17.99 Rehab diagnosis: Access IRF (07/11/241111) Inpatient Rehab Facility (IRF) Guidelines (1-8): Requires face to face interaction with a rehabilitative physician at a minimum of 3 times per week;Requires access to a rehabilitative RN 29/01;Able toparticipate in intensive therapy program consisting of treatment at a minimum of 3 hours per day 5 days per week;Indicate therapy modalities;Able to participate in rehabilitative therapy program including realistic goals with predictable timeframes for completion of goals;Rehabilitation intensity and frequency makes the services impracticable to obtain in less intense setting;Requires coordination care conference at least 1 time/week;Frequent assessment of progression toward goals (07/11/241111) Therapy Modalities: Physical Therapy;Occupational Therapy (07/11/241111) Inpatient Rehab Facility (IRF) Guidelines (9-12): Assistance with resolution of issues impeding rehabilitative progress;Established rehabilitative progress;Frequent re-assessment of established rehabilitative progress;Frequent monitoring and or revision of treatment plan (07/11/24 1112) Henri was independent prior to surgery. His ampac is 17 is needing increase in endurance with activity. He is requesting referral to [facility]. CM will place referral. [id number]: Received text from Ree at [facility]. They are able to offer him a bed, pending insurance auth. [facility] AMOR L[place] stated he should be ready Sunday or Sunday. P auth submitted for Sunday. CM reached out to update , Mariama. She is in agreement for him to get rehab prior to returning home. She stated that family is able to provide transportation to facility. * Care Plan - Leonie Preston RN - 07/11/2024 9:44 AM EST Clinical Goal(s): pt will get oob to chair (07/11/24 0700) Possible barriers to meeting goal(s)/advancing plan of care: weakness Stability of the patient: Moderately stable - low risk of patient condition declining or worsening Summary regarding today's goal(s): Met: pt got oob to chair Recommendations: continue ambulating pt * Ancillary Progress Note - Joceline Dennis PTA - 07/11/2024 9:27 AM EST PROGRESS NOTE - Physical Therapy [facility] [place]-[address] [address] Name: Henri Vigil Location: [facility] [place] H760/A Date: 07/11/2024 Time: 9:27 AM Henri Vigil is a/an 73 year old male. Patient Status: Inpatient Insurance: Payor: [facility] Plan: [facility] GOLD CLASSIC 360 RX [id number] Product Type: *No Product type* Patient Seen: at bedside, nursing cleared patient for therapy Patient Identified By: Name, ID Band and Date Diagnosis: s/p CABG (07/11/24926) Status of treatment: Treatment completed (07/11/24926) Orders: PT evaluation and treatment (07/11/24926) Weight Bearing Status: Weight bearing as tolerated (07/11/24926) Precautions: Alarms;Falls;Safety;Bejarano;External pacer;Sternal;Central line (07/11/24926) Total Treatment Time--free text: 16 (07/11/24926) Subjective: Patient was agreeable Pain: No complaints of pain P.T. Bed Mobility Supine-Sit: Supervision (07/10/241038) Transfers Sit-Stand: Contact Guard (07/11/24926) Stand-Sit: Contact Guard (07/11/24926) Ambulation: Distance ambulated (feet): 25 + 40 + 50 Assistive Device: Rolling walker Assist: Contact Guard Balance Sit (Static): Fair (07/11/24926) Sit (Dynamic): Fair (07/11/24926) Stand (Static): (Fair-) (07/11/24926) Stand (Dynamic): (Fair-) (07/11/24926) Patient and or Family Goal(s): to get well Topic of Education: Safety with mobility Method of Education: Verbal discussion and explanation provided to patient: verbalized understanding and or agreement of this information and demonstrated the exercise and or task Treatment Provided: Gait Training 16 minutes: gait training with rolling walker Alarm Status Patient positioned in: Chair (07/11/24926) With: Pressure pad alarm intact and functioning and call brewer in reach (07/11/24926) Following session patient seated OOB in chair with chair alarm activated and cord plugged into callbell system. Patient Education Review of Precautions: Safety;Fall;Sternal (07/11/24926) Safety Awareness: Patient verbalizes insight of current deficits;Patient demonstrates carryover of insight during functional tasks;Patient can communicate basic needs;Needs cueing supervision (07/11/24926) Preferred learning method: Combination (07/11/24926) Barriers to learning: Medical Status (07/11/24926) Method of Education: Verbalized to patient;Patient demonstrated task (07/11/24926) Assessment: Patient was found seated in chair upon arrival and agreeable to work with physical therapy services. Patient was alert and oriented x 4 throughout session. Patient verbalized 75% of sternal precautions and was educated prior to mobility. Patient completed sit to stand transfers from thechair with contact guard assistance and rolling walker. Patient ambulated 25 + 40 + 50 feet with a rolling walker requiring contact guard assistance and a chair follow. Noted patient required 2 seated rest breaks throughout ambulation due to fatigue. Patient required frequent verbal/tactile cues totake larger steps and for rolling walker management. Patient ambulates with a small base of supportand is easily distracted/has decreased safety awareness. Ended session with patient reclined in chair with pillows for comfort, pressure pad alarm activated, and call brewer within reach. Please consider post-acute care services which may include home health, senior living, outpatient therapy or inpatient rehabilitation. The level of care will be determined in collaboration with patient, family/caregiver and care team members. Deficits requiring P.T. treatment needs: Safety;Mobility;Balance;Weakness;Endurance;Lower extremitystrength (07/11/24926) Equipment needs: Rolling walker (07/11/24926) Plan: Continue with current treatment plan established on evaluation. AM PAC Score with Stairs: 17 A portion of this AM-PAC assessment not scored based on functional assessment; rather clinical decision making utilized based on current findings and/or prior level of function. Please refer to future AM-PAC calculations of functional ability as they become available. * Care Plan - Maria Eugenia Florentino RN - 07/11/2024 6:54 AM EST Clinical Goal(s): Patient will maintain systolic <140 this shift (07/10/241999) Possible barriers to meeting goal(s)/advancing plan of care: Post-op CABG, hx CAD and HTN. Stability of the patient: Moderately stable - low risk of patient condition declining or worsening Summary regarding today's goal(s): Met: Patient maintained systolic BP < 140 while on 0.25 nipride Recommendations: Continue continuous BP monitoring, follow CSG plan to d/c dopamine drip and changeBP parameters to keep systolic BP less than 160 mmHg. * Progress Notes - Post-Op Global - Jayden Galvan MD - 07/11/2024 4:51 AM EST PROGRESS NOTE - CARDIAC SURGERY [facility] [place] [address] Name: Henri Vigil Location: [facility] [place] H760/A Date: 07/11/2024 Time: 4:51 AM OPERATION: CABG X 4 (CAN to LAD; SVG to DIAG, OM, PDA) SURGEON: Jayden Galvan MD POD#: 3 PATIENT ISSUES/EVENTS: No further afib. Remains on low-dose Dopamine. OOB to chair yesterday but has not ambulated much. PHYSICAL EXAM: General: no acute distress Heart Exam: regular rate and rhythm and no murmur, gallops, or rubs Lungs: normal respirations Abdominal Exam: abdomen soft and non-tender Extremities: warm, dry, well perfused, and slight edema below vein harvest sight Incision: sternotomy - clean, dry and intact, vein harvest site - clean, dry and intact Neurological: alert Pulses: dorsalis pedis CURRENT CORE CARDIAC MEDICATIONS: Beta Zeferino: yes ASA: yes Statin: yes SIMA-Inhibitor / ARB: no, explain -- renal insufficiency and or failure POSTOPERATIVE COMPLICATIONS: acute post op blood loss anemia atrial fibrillation renal dysfunction ADDITIONAL PROCEDURES: none ASSESSMENT/PLAN: Cardiovascular: -NSR, rate 60s, SBP 110-130s -Afib / -> Amio 200 TID -Pressors/Inotropes: Dopamine @ 1 (Milrinone weaned off 07/09) -Beta zeferino: Coreg 6.25 -Norvasc 5 -Statin: Crestor 40mg -Pre-op EF 35% -Central Line(s): Yes, reason: Hemodynamic monitoring - will possibly d/c today -Pacer Wires: yes - will d/c today pending INR Chronic Issues: -HTN on Coreg 12.5, Lisinopril 40, and Norvasc 5 -Hyperlipidemia on Crestor 40 and Zetia -HFrEF on Spironolactone 12.5 Pulmonary: -Satting well on 2L NCO2 (uses 2L nocturnal at baseline) -Daily CXR -Aggressive pulmonary toilet -Chest Tubes/Alen Drains: No Chronic Issues: -COPD on nocturnal 2L NCO2 GI: -Diet: Soft & bite-sized per patient request for chronic dysphagia -Bowel regimen -> no BM since surgery -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 for GI 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 /Renal: -Pre-op renal function normal, post-op BIJAL improving (last Cr 1.5) -Bejarano: Yes, reason: fluid monitoring and diuresis - will leave for now until BIJAL improves and off Dopamine -IV Lasix 40mg prn Chronic Issues: -BPH on Flomax and Avodart Hematology: -Hgb 9.4, plt 89 -INR 1.4 -Holding SQ Heparin for plt < 100 -Aspirin 81mg x 1 week of triple therapy then Coumadin and Plavix only -Coumadin per pharmacy (Eliquis 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 INSULATION INSTALLER for apical thrombus) -Resume 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 INSULATION INSTALLER Plavix (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 INSULATION INSTALLER for prior CVA) -Blood products: None Neuro/P.T./O.T.: -Neurologically intact -Pain controlled -Increase activity as tolerated Chronic Issues: -Anxiety on Wellbutrin and Buspar -RLS on Remeron, Requip, and Lyrica Infectious Disease: -Afebrile, WBC 9.22 -Post-op Ancef completed -Pre-op nasal culture and UA negative Endo: -No insulin needs (A1C 5.9) Plan: -Wean Dopamine off today -Coreg 6.25mg + Norvasc 5mg -Amio 200mg TID for post-op afib -Diurese with IV Lasix 40mg prn -D/c wires today -Possibly d/c bejarano and CVC pending AM labs and once off Dopamine -Coumadin per pharmacy (Eliquis 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 INSULATION INSTALLER for apical thrombus) -Resume 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 INSULATION INSTALLER Plavix today (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 INSULATION INSTALLER for prior CVA) -Increase activity as tolerated Mayra Marinelli PA-C 07/11/2024 4:51 AM Slow improvement Wean dopamine D/c CVC Diuresis Mobilize Begin d/c planning * Ancillary Progress Note - Passi, Jessica E, Operating Room Specialist - 07/10/2024 4:11 PM EST PROGRESS NOTE - Spiritual Care Contact Information [address] [address] Name: Henri Vigil Location: [address] Date: 07/10/2024 Time: 4:11 PM Yazidi: No Mormon Pref [66] Mormon Affiliations: REASON FOR VISIT: rounding REQUEST RECEIVED FROM: rounding VISIT LENGTH: 15 REQUEST FACTORS (Nature of Situation): Initial Visit FOCUS OF CARE: Patient SPIRITUAL ASSESSMENT: Cindi or Belief System: Religion Most Important Need(s) / Concern(s): Weary Sense of Community and/or Mormon Affiliation: latter-day Addresses need(s)/concerns(s) and/or skyla through: Did not identify SPIRITUAL CARE PROVIDED: Operating Room Specialist addressed needs/concerns and/or coping through: Listening presence and Prayer REFERRAL TO: N/A OUTCOMES: Outcome Unknown ANNOTATION: Patient appeared to be very weary. He described having gone through an exhausting medical procedure. After a short time, it was clear that he was not up for a conversation. He mentioned that all of his family members work, so no one has been here to visit him. His closes the facility where she works at 10 PM. When it was clear that he was too tired to talk, we ended with a brief prayer. * Ancillary Progress Note - Randy Kilgore RN - 07/10/2024 11:37 AM EST HOME CARE REFERRAL [facility]ARE MANAGEMENT [address] [address] Referred By: Randy Kilgore RN Admission Date: 07/08/2024 Discharge Date: Discharge Time: Start Date: 24-48 hours Agency Referred To: [facility] PATIENT INFORMATION: Name: Henri Vigil Address: [address] [address] : 1950 Phone: There is no home phone number on file. SSN: [id number] County: [place] Emergency Contacts: Extended Emergency Contact Information Primary Emergency Contact: MARIAMA VIGIL Mobile Relation: Spouse Preferred language: Bengali Software Solutions Architect needed? 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 Allergies: Codeine Isolation Type: Activity Restrictions: As ordered Isolation For: None HOME CARE ORDERS: (Discipline and Frequency): Mcc Assessment Disease Management and Teaching Medication Management and Teaching Lab work as indicated on discharge instructions PT/OT Evaluation and Treat Home Safety Evaluation Medications Dose, Frequency, & Route: As ordered Ordering Physician and Contact Information: Jayden Galvan MD Comments: n/a PCP: PCP: [place] [address] [phone] D/C Physician: Jayden Galvan MD Insurance: See attached facesheet. * Ancillary Progress Note - Randy Kilgore RN - 07/10/2024 11:05 AM EST CARE MANAGEMENT - ADULT TRANSITION NOTE [facility] [place] [address] Name: Henri Vigil Location: [facility] [place] H760/A Date: 07/10/2024 Time: 11:05 AM Risk Stratification Risk Stratification Psycho Social / Medical Concerns Identified: Adjustment to illness/injury;Multiple Comorbidities (07/09/241625) Accessed [employer] to connect patients to social care resources: No (07/09/241625) OBRA or OPTIONS needed for placement: No (07/09/241625) Readmission Risk Score: 21.64 (07/10/24 0801) AM-PAC Score With Stairs : 15 (07/09/24 2200) - not yet seen by therapy Caregiver Information Emergency Contacts None on File Other Contacts Name Relation Home Work Mobile MARIAMA VIGIL Spouse [phone] Transition of Care Checklist Narrative: CM has been following Henri's hospital course. Patient discussed in IDT rounds. They are not medically stable for discharge at this time. He is s/p CABG x 4. He remains on amiodarone, dopamine and nipride infusions. Discharge plan evolving - CM will continue to follow for discharge needs. Anticipated Transportation at Discharge: family Patient/Family Expectations: return to home with [facility] and [facility] to [facility] Transition Planning Transition Planning Transition Plan/Considerations: Needs uncertain at this time - Continue monitoring for needs (07/09/24 3811) Additional Considerations: n/a Care Management will continue to monitor and assist with discharge planning needs * Care Plan - Radhames Amos RN - 07/10/2024 2:10 AM EST Clinical Goal(s): pt will remain free from injury during this shift (07/09/241999) Possible barriers to meeting goal(s)/advancing plan of care: fall risk Stability of the patient: Moderately stable - low risk of patient condition declining or worsening Summary regarding today's goal(s): Met: pt has remained free from injury during this shift Recommendations: maintain bed at low level, call brewer within reach, and non-skid socks on * Progress Notes - Post-Op Global - Jayden Galvan MD - 07/10/2024 12:03 AM EST PROGRESS NOTE - CARDIAC SURGERY [facility] [place] [address] Name: Henri Vigil Location: [facility] [place] H760/A Date: 07/10/2024 Time: 12:03 AM OPERATION: CABG X 4 (CAN to LAD; SVG to DIAG, OM, PDA) SURGEON: Jayden Galvan MD POD#: 2 PATIENT ISSUES/EVENTS: Afib yesterday AM with hypotension and increased Levo requirements. Started on Amio gtt + PO and converted to NSR after 1-2 hours and Levo able to be weaned off. Milrinone alsoweaned off but CI dropped so Dopamine then started in the afternoon. Nipride started later in the evening due to HTN with Dopamine. PHYSICAL EXAM: General: no acute distress Heart Exam: regular rate and rhythm and no murmur, gallops, or rubs Lungs: normal respirations Abdominal Exam: abdomen soft and non-tender Extremities: warm, dry, well perfused, and no edema Incision: sternotomy - clean, dry and intact, vein harvest site - clean, dry and intact Neurological: alert Pulses: dorsalis pedis CURRENT CORE CARDIAC MEDICATIONS: Beta Zeferino: no, explain -- patient is currently on inotropes ASA: yes Statin: yes SIMA-Inhibitor / ARB: no, explain -- maximizing beta zeferino therapy POSTOPERATIVE COMPLICATIONS: acute post op blood loss anemia atrial fibrillation renal dysfunction ADDITIONAL PROCEDURES: none ASSESSMENT/PLAN: Cardiovascular: -NSR, rate 70s, SBP 120s -Afib 07/09 -> Amio gtt + 400 TID -CI 2.6-2.9, SVO2 60s -Pressors/Inotropes: Dopamine @ 2 (Milrinone weaned off 07/09) -Beta zeferino: Coreg 3.125 -Statin: Crestor 40mg -Pre-op EF 35% -Leave swan and arterial line for now while on Dopamine -Central Line(s): Yes, reason: Hemodynamic monitoring -Pacer Wires: yes - will leave for now Chronic Issues: -HTN on Coreg 12.5, Lisinopril 40, and Norvasc 5 -Hyperlipidemia on Crestor 40 and Zetia -HFrEF on Spironolactone 12.5 Pulmonary: -Satting well on 2L NCO2 (uses 2L nocturnal at baseline) -Daily CXR -Aggressive pulmonary toilet -Chest Tubes/Alen Drains: Yes: drainage minimal overnight, on suction, and no air leak - will d/c today Chronic Issues: -COPD on nocturnal 2L NCO2 GI: -Diet: Advance to regular diet as tolerated -Bowel regimen -> no BM since surgery -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 INSULATION INSTALLER Protonix for GI prophylaxis /Renal: -Pre-op renal function normal, post-op BIJAL (last Cr 1.6) -Bejarano: Yes, reason: fluid monitoring and diuresis - will leave for now until BIJAL improves and off Dopamine -IV Lasix 40mg prn Chronic Issues: -BPH on Flomax and Avodart Hematology: -Hgb 9.1, plt 120 -INR 1.2 -SQ Heparin for DVT prophylaxis -Aspirin 81mg x 1 week of triple therapy then Coumadin and Plavix only -Coumadin per pharmacy (Eliquis 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 INSULATION INSTALLER for apical thrombus) -Eventually resume 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 INSULATION INSTALLER Plavix (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 INSULATION INSTALLER for prior CVA) -Blood products: None Neuro/P.T./O.T.: -Neurologically intact -Pain controlled -OOB in AM -PT/OT consults -Increase activity as tolerated Chronic Issues: -Anxiety on Wellbutrin and Buspar -RLS on Remeron, Requip, and Lyrica Infectious Disease: -Afebrile, WBC 8.90 -Post-op Ancef x 5 doses -Pre-op nasal culture and UA negative Endo: -No insulin needs (A1C 5.9) Plan: -Wean Dopamine as tolerated -Start 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 INSULATION INSTALLER Coreg and wean Nipride -Amio gtt + 400 TID for post-op afib -D/c swan and arterial line once off Dopamine -D/c chest tubes today, leave wires for now -Leave bejarano for now given BIJAL and on Dopamine -Coumadin per pharmacy (Eliquis 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 INSULATION INSTALLER for apical thrombus) -Plavix starting POD #2 (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 INSULATION INSTALLER for prior CVA) -OOB as tolerated, PT/OT consults Mayra Marinelli PA-C 07/10/2024 12:03 AM Stable Cont low dose dopamine D/c CT, wires D/c swan Pulmonary toilet diuresis * Ancillary Progress Note - Alida Lundberg MSW - 07/09/2024 4:29 PM EST CARE MANAGEMENT - ADULT INITIAL SCREENING [facility] [place] [address] Name: Henri Vigil Location: [address] Date: 07/09/2024 Time: 4:29 PM Discussed patient with the interdisciplinary care team. This Laser Machine Operator performed a chart review and met with patient at bedside to complete admission screen and assessed needs for transition planning. The critical care physician assistant role and services were explained and emotional support was provided. Chief Complaint: No chief complaint on file. Prior Living Arrangements What was your living situation prior to admission/observation?: With Spouse (07/09/241625) Living Quarters: Apartment (07/09/241625) Number of steps to enter living quarters:: 2 (07/09/241625) History of falling: No (07/09/24 08) Prior Level of Functioning Describe the patient's ability prior to admission/observation to perform ADLs: Requires assistance (07/09/241625) Requires assistance with: Dressing;Toileting;Bathing (07/09/241625) Describe the patient's mobility status prior to admission: Patient requires assistance with ambulation (07/09/241625) Patient uses assistive device: Yes (07/09/241625) If yes, choose:: Walker (07/09/241625) Caregiver Information Emergency Contacts None on File Other Contacts Name Relation Home Work Mobile MARIAMA VIGIL Spouse [phone] Risk Stratification/Psychosocial/Care Gaps Risk Stratification Psycho Social / Medical Concerns Identified: Adjustment to illness/injury;Multiple Comorbidities (07/09/241625) Accessed [facility] to connect patients to social care resources: No (07/09/241625) OBRA or OPTIONS needed for placement: No (07/09/241625) Readmission Risk Score: 17.34 (07/09/24 1601) AM-PAC Score With Stairs : 15 (07/09/24 1100) Prior to Admission Services Services Prior to Admission 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 INSULATION INSTALLER Services (Services received within the last 30 days with exception, Psych within last two years): N/A (07/09/241627) [place] [facility] (PDA) Waiver Program: N/A (07/09/241627) 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 INSULATION INSTALLER Transportation (Services received within the last 30 days): Family/Friends Personal Vehicle (07/09/241627) Outpatient Laser Machine Operator: No care hat steamer to display Patient/Family Expectations: tbd Patient was sleepy, but answered questions. Patient reports he requires assistance with ADL's and is concerned when he goes home. Reports his and ANTONIO help care for him and they both work second shift so he would be alone in the evening. Patient is active with [facility] for . Patient has has HH in the past but could not remember who through. Patient's transports for his needs. Patient is open to rehab if needed. For further screening information, please refer to the Care Management flow document. * Pt Handout (on AVS) - Jacquie Meadows RP - 07/09/2024 11:40 AM EST Images from the original note were not included. Warfarin - Video Let's take a minute to talk about your medication. This is warfarin, and you should take your dose as directed by your doctor. Warfarin prevents and treats blood clots. To view the video go to this web address: [email or web address] Or, scan this QR code with your smart phone 2023 [email or web address]. All Rights Reserved. * Pt Handout (on AVS) - Jacquie Meadows RP - 07/09/2024 11:40 AM EST [id number] Warfarin Brand Name(s): Coumadin, Jantoven; also available generically IMPORTANT WARNING: Warfarin may cause severe bleeding that can be life-threatening and even cause . Tell your doctor if you have or have ever had a blood or bleeding disorder; bleeding problems, especially in yourstomach or your esophagus (tube from the throat to the stomach), intestines, urinary tract or bladder, or lungs; high blood pressure; heart attack; angina (chest pain or pressure); heart disease; pericarditis (swelling of the lining (sac) around the heart); endocarditis (infection of one or more heart valves); a stroke or ministroke; aneurysm (weakening or tearing of an artery or vein); anemia (low number of red blood cells in the blood); cancer; chronic diarrhea; or kidney, or liver disease. Also tell your doctor if you fall often or have had a recent serious injury or surgery. Bleeding is more likely during warfarin treatment for people over 65 years of age, and it is also more likely during the first month of warfarin treatment. Bleeding is also more likely to occur for people who take high doses of warfarin, or take this medication for a long time. The risk for bleeding while takingwarfarin is also higher for people participating in an activity or sport that may result in seriousinjury. Tell your doctor and pharmacist if you are taking or plan to take any prescription or nonprescription medications, vitamins, nutritional supplements, and herbal or botanical products (See SPECIAL PRECAUTIONS), as some of these products may increase the risk for bleeding while you are takingwarfarin. If you experience any of the following symptoms, call your doctor immediately: pain, swelling, or discomfort, bleeding from a cut that does not stop in the usual amount of time, nosebleeds or bleeding from your gums, coughing up or vomiting blood or material that looks like coffee grounds, unusual bleeding or bruising, increased menstrual flow or vaginal bleeding, pink, red, or dark brown urine, red or tarry black bowel movements, headache, dizziness, or weakness. Some people may respond differently to warfarin based on their heredity or genetic make-up. Your doctor may order a blood test to help find the dose of warfarin that is best for you. Warfarin prevents blood from clotting so it may take longer than usual for you to stop bleeding if you are cut or injured. Avoid activities or sports that have a high risk of causing injury. Call your doctor if bleeding is unusual or if you fall and get hurt, especially if you hit your head. Keep all appointments with your doctor and the laboratory. Your doctor will order a blood test (PT [prothrombin test] reported as INR [international normalized ratio] value) regularly to check your body's response to warfarin. If your doctor tells you to stop taking warfarin, the effects of this medication may last for 2 to 5 days after you stop taking it. Your doctor or pharmacist will give you the tongue and groove machine feeder's patient information sheet (Medication Guide) when you begin treatment with warfarin and each time you refill your prescription. Read the information carefully and ask your doctor or pharmacist if you have any questions. You can also visit the Food and Drug Administration (FDA) website (https://www.fda.gov/downloads/Drugs/DrugSafety/xgy082029.pdf) or the tongue and groove machine feeder's website to obtain the Medication Guide. Talk to your doctor about the risk(s) of taking warfarin. WHY is this medicine prescribed? Warfarin is used to prevent blood clots from forming or growing larger in your blood and blood vessels. It is prescribed for people with certain types of irregular heartbeat, people with prosthetic (replacement or mechanical) heart valves, and people who have suffered a heart attack. Warfarin is also used to treat or prevent venous thrombosis (swelling and blood clot in a vein) and pulmonary embolism (a blood clot in the lung). Warfarin is in a class of medications called anticoagulants ('bloodthinners'). It works by decreasing the clotting ability of the blood. HOW should this medicine be used? Warfarin comes as a tablet to take by mouth. It is usually taken once a day with or without food. Take warfarin at around the same time every day. Follow the directions on your prescription label carefully, and ask your doctor or pharmacist to explain any part you do not understand. Take warfarin exactly as directed. Do not take more or less of it or take it more often than prescribed by your doctor. Call your doctor immediately if you take more than your prescribed dose of warfarin. Your doctor will probably start you on a low dose of warfarin and gradually increase or decrease your dose based on the results of your blood tests. Make sure you understand any new dosing instructions from your doctor. Continue to take warfarin even if you feel well. Do not stop taking warfarin without talking to your doctor. Are there OTHER USES for this medicine? This medication may be prescribed for other uses; ask your doctor or pharmacist for more information. What SPECIAL PRECAUTIONS should I follow? Before taking warfarin, tell your doctor and pharmacist if you are allergic to warfarin, any other medications, or any of the ingredients in warfarin tablets. Ask your pharmacist or check the Medication Guide for a list of the ingredients. do not take two or more medications that contain warfarin at the same time. Be sure to check with your doctor or pharmacist if you are uncertain if a medication contains warfarin or warfarin sodium. tell your doctor and pharmacist what prescription and nonprescription medications, vitamins, andnutritional supplements you are taking or plan to take while taking warfarin. Your doctor may change the doses of your medications or monitor you carefully for side effects. the following nonprescription or herbal products may interact with warfarin: coenzyme Q10 (Ubidecarenone), Echinacea, garlic, Ginkgo biloba, ginseng, goldenseal, and [place]'s wort; omeprazole (Prilosec); famotidine (Pepcid AC); aspirin and nonsteroidal anti-inflammatory drugs (NSAIDS) such as ibuprofen (Advil, Motrin, others) and naproxen (Aleve). Be sure to let your doctor and pharmacist know that you are taking these medications before you start taking warfarin. Do not start any of thesemedications while taking warfarin without discussing with your healthcare provider. tell your doctor if you have or have ever had diabetes. Also tell your doctor if you have an infection, a gastrointestinal illness such as diarrhea, or sprue (an allergic reaction to protein foundin grains that causes diarrhea), or an indwelling catheter (a flexible plastic tube that is placed into the bladder to allow the urine to drain out). Tell your doctor if you are , think you might be , or plan to become while taking warfarin. women should not take warfarin unless they have a mechanical heart valve. Talk to your doctor about the use of effective control while taking warfarin. If you become while taking warfarin, call your doctor immediately. Warfarin may harm the fetus. tell your doctor if you are breast-feeding. if you are having surgery, including dental surgery, or any type of medical or dental procedure,tell the doctor or dentist that you are taking warfarin. Your doctor may tell you to stop taking warfarin before the surgery or procedure or change your dosage of warfarin before the surgery or procedure. Follow your doctor's directions carefully and keep all appointments with the laboratory if your doctor orders blood tests to find the best dose of warfarin for you. ask your doctor about the safe use of alcoholic beverages while you are taking warfarin. tell your doctor if you use tobacco products. Cigarette smoking may decrease the effectiveness of this medication. What SPECIAL DIETARY instructions should I follow? Eat a normal, healthy diet. Some foods and beverages, particularly those that contain vitamin K, can affect how warfarin works for you. Ask your doctor or pharmacist for a list of foods that contain vitamin K. Eat consistent amounts of vitamin K-containing food on a gwzd-il-kktg basis. Do not eat large amounts of leafy, green vegetables or certain vegetable oils that contain large amounts of vitamin K. Be sure to talk to your doctor before you make any changes in your diet. Talk to your doctor about eating grapefruit and drinking grapefruit juice while taking this medication. What should I do IF I FORGET to take a dose? Take the missed dose as soon as you remember it, if it is the same day that you were to take the dose. Do not take a double dose the next day to make up for a missed one. Call your doctor if you mynor dose of warfarin. What SIDE EFFECTS can this medicine cause? Warfarin may cause side effects. Tell your doctor if any of these symptoms are severe or do not go away: gas abdominal pain bloating change in the way things taste loss of hair feeling cold or having chills If you experience any of the following symptoms, or those listed in the IMPORTANT WARNING section, call your doctor immediately: hives rash itching difficulty breathing or swallowing swelling of the face, throat, tongue, lips, or eyes hoarseness chest pain or pressure swelling of the hands, feet, ankles, or lower legs fever infection nausea vomiting diarrhea extreme tiredness lack of energy loss of appetite pain in the upper right part of the stomach yellowing of the skin or eyes flu-like symptoms You should know that warfarin may cause necrosis or gangrene ( of skin or other body tissues).Call your doctor immediately if you notice a purplish or darkened color to your skin, skin changes,ulcers, or an unusual problem in any area of your skin or body, or if you have a severe pain that occurs suddenly, or color or temperature change in any area of your body. Call your doctor immediately if your toes become painful or become purple or dark in color. You may need medical care right away to prevent amputation (removal) of your affected body part. Warfarin may cause other side effects. Call your doctor if you have any unusual problems while taking this medication. What should I know about STORAGE and DISPOSAL of this medication? Keep this medication in the container it came in, tightly closed, and out of reach of children. Store it at room temperature and away from excess heat, moisture (not in the bathroom), and light. Unneeded medications should be disposed of in special ways to ensure that pets, children, and otherpeople cannot consume them. However, you should not flush this medication down the toilet. Instead,the best way to dispose of your medication is through a medicine take-back program. Talk to your pharmacist or contact your local garbage/recycling department to learn about take-back programs in your community. See the FDA's Safe Disposal of Medicines website (https://goo.gl/c4Rm4p) for more information if you do not have access to a take-back program. It is important to keep all medication out of sight and reach of children as many containers (such as weekly pill minders and those for eye drops, creams, patches, and inhalers) are not child-resistant and young children can open them easily. To protect young children from poisoning, always lock safety caps and immediately place the medication in a safe location -- one that is up and away and outof their sight and reach. https://www.upandaway.org What should I do in case of OVERDOSE? In case of overdose, call the poison control helpline at . Information is also available online at https://www.poisonhelp.org/help. If the victim has collapsed, had a seizure, has trouble breathing, or can't be awakened, immediately call emergency services at 562. Symptoms of overdose may include the following: bloody or red, or tarry bowel movements spitting or coughing up blood heavy bleeding with your menstrual period pink, red, or dark brown urine coughing up or vomiting material that looks like coffee grounds small, flat, round red spots under the skin unusual bruising or bleeding continued oozing or bleeding from minor cuts What OTHER INFORMATION should I know? Carry an identification card or wear a bracelet stating that you take warfarin. Ask your pharmacistor doctor how to obtain this card or bracelet. List your name, medical problems, medications and dosages, and doctor's name and telephone number on the card. Tell all your healthcare providers that you take warfarin. Do not let anyone else take your medication. Ask your pharmacist any questions you have about refilling your prescription. It is important for you to keep a written list of all of the prescription and nonprescription (cqtp-dbr-adflgtw) medicines you are taking, as well as any products such as vitamins, minerals, or otherdietary supplements. You should bring this list with you each time you visit a doctor or if you areadmitted to a hospital. It is also important information to carry with you in case of emergencies. This report on medications is for your information only, and is not considered individual patient advice. Because of the changing nature of drug information, please consult your physician or pharmacist about specific clinical use. The [place] [employer] represents that the information provided hereunder was formulated with a reasonable standard of care, and in conformity with professional standards in the field. The [place] [employer] makes no representations or warranties, express or implied, including, but not limited to, any implied warranty of merchantability and/or fitness for a particular purpose, with respect to such information and specifically disclaims all such warranties. Users are advised that decisions regarding drug therapy are complex medical decisions requiring the independent, informed decision of an appropriate health palliative care specialist, and the information is provided for informational purposes only. The entire monograph for a drug should be reviewed for a thorough understanding of the drug's actions, uses and side effects. The [place] [employer] does not endorse or recommend the use of any drug.The information is not a substitute for medical care. [facility] Patient Medication Information?. Copyright, 2023. [employer] [place] [employer], [facility], [address], [place], [place]. All Rights Reserved. Duplication for commercial use must be authorized by [facility]. Selected Revisions: December 21, 2016. [facility] Patient Medication Information?. Copyright, 2023 * Ancillary Progress Note - Lucas Rivera, IT LEAD - 07/09/2024 1:01 AM EST PATIENT DRIVEN PROTOCOL - Respiratory Care Services [address] [id number] Name: Henri Vigil Location: [facility] [place] H760/A Date: 07/09/2024 Time: 1:01 AM Patient Driven Protocol Summary: Initial evaluation performed. This Treatment Plan and medications will be reviewed by the Primary Care Team for any contraindications. Respiratory Care Treatment Plan Aerosol Therapy Treatment:: Hand Held Nebulizer Tx PRN with Duoneb: Unit Dose. to reduce work of breathing and improve pulmonary gas exchange. Pulmonary Volume Expansion Therapy: Incentive Spirometry BID to prevent or treat alveolar consolidation and atelectasis. Additional Pulmonary Volume Expansions: EzPAP Treatment: Total Performed: 30 with Device Settin Q6H with no medication to prevent or treat alveolar consolidation and atelectasis. Secretion Management Treatment: Flutter [id number] to enhance mobilization of secretions. The patient will be re-evaluated: within 48 hours. The Triage Level is: (Assessment Score = 16-20) Level 2. Triage Level Definitions: Level 1 Severe Respiratory/Airway Compromise Level 2 Moderate Respiratory/Airway Compromise or high risk for pulmonary complications Level 3 Mild Respiratory/Airway Compromise or moderate risk for pulmonary complications Level 4 Episodic Respiratory/Airway Compromise or low risk for pulmonary complications Level 5 No Respiratory/Airway Compromise Triage 1 Triage 2 Triage 3 Triage 4 Triage 5 greater than 20 16 - 20 11 - 15 6 - 10 0 - 5 Medical Record Assessment Clinical Findings Pulmonary Status: 3 - Pulm Impairment (acute or chronic) w/o exacerbation, or 1 - 2 rib fractures Surgical Status: 4 - Thoracic or Abdominal with Pulmonary Disease Chest X-Ray: 0 - Clear Assessment Score: 7 Patient Assessment Clinical Findings Respiratory Pattern: 0 - RR 12 - 20; Patient only gets breathless with strenuous exercise. Breath Sounds: 2 - Diminished bilaterally Cough Effectiveness: 0 - Strong non-productive Sputum Production: 0 - No sputum production Level of Activity: 4 - Bed rest, unable to position self O2 needed to keep SpO2 greater than or equal to 92%: 4 - Oxygen 100% or NIV/HFNC Assessment Score: 10 Total Assessment Score: 17 Breath Sounds: Inspiratory and expiratory diminished bilaterally.. Cough and Sputum: An effective cough produced no sputum... CXR: FINDINGS: Catheters/tubes/devices/foreign bodies: ETT terminates 5.5 cm from zohra. NG tube crosses the diaphragm at midline and projects over the expected location of the stomach. Right IJ Cordis contains a [place]-Shamika catheter with tip projecting over the right hilum in the expected location of the right pulmonary artery. Inferior approach mediastinal and left chest tubes. Sternotomy wires. No consolidation or effusion. No evidence of pneumothorax. Cardiomediastinal silhouette is within normal limits. Osseous structures are unremarkable. IMPRESSION IMPRESSION: No acute findings in the chest. Vital Signs: Resp: 9 (07/09/24 0045) Pulse: 71 (07/09/2444) Temp: 36.4 C (97.5 F) (07/08/24 0545) BP: 104/65 (07/09/24 0000) SpO2: 99 % (07/09/2444) PFT: Patient unable to perform Inspiratory Capacity. Reason: Pt. On bipap Primary Service: Cardiac Surgery. 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 Prescriptions/Home Medications/Durable Medical Equipment: 2L O2 QHS Recommended New home medications/durable medical equipment/outpatient pulmonary/sleep referral no. * Ancillary Progress Note - Lucas Rivera, KOMAL - 07/09/2024 12:59 AM EST RESPIRATORY MECHANICAL VENTILATION PROGRESS NOTE [facility] [place] [id number] Name: Henri Vigil Location: [facility] [place] H760/A Date 07/09/2024 Time: 12:59 AM Date of Admission: 07/08/2024 Ventilator Day: #2 Current Ventilator Setting: Pt. Was extubated to bipap. Liberation Trial Performed: Yes. Pt. Passed and was extubated at 0025. See [facility] Adult Ventilator Flowsheet for more information ABG within the last 12 hours: Latest Reference Range & Units 07/08/24 21:43 07/08/24 23:32 07/09/24 00:03 pH, Arterial 7.350 - 7.450 units 7.407 7.395 7.440 pCO2, Arterial 35.0 - 45.0 mmHg 40.8 42.6 37.9 pO2, Arterial 75.0 - 100.0 mmHg 157.0 (H) 161.0 (H) 153.0 (H) (H): Data is abnormally high Latest Reference Range & Units 07/08/24 21:43 07/08/24 23:32 07/09/24 00:03 Bicarbonate, Whole Blood 23.0 - 31.0 mmol/L 25.1 25.5 25.3 Ventilator Changes: no. Events of Note: extubation. Plan: PDP and Lung expansion devices. * Progress Notes - Post-Op Global - Jayden Galvan MD - 07/09/2024 12:22 AM EST PROGRESS NOTE - CARDIAC SURGERY [facility] [place] [id number] Name: Henri Vigil Location: [facility] [place] H760/A Date: 07/09/2024 Time: 12:22 AM OPERATION: CABG X 4 (CAN to LAD; SVG to DIAG, OM, PDA) SURGEON: Jayden Galvan MD POD#: 1 PATIENT ISSUES/EVENTS: Arrived from OR on low-dose Epi. Became hypertensive, so Milrinone started instead of Epi for borderline CI. Required some Levo overnight for softer BPs while sleeping. Multiple failed SBTs due to patient becoming apneic while sleeping, but eventually able to be extubated to BiPAP without issue overnight. PHYSICAL EXAM: General: no acute distress Heart Exam: regular rate and rhythm and no murmur, gallops, or rubs Lungs: normal respirations Abdominal Exam: abdomen soft and non-tender Extremities: warm, dry, well perfused, and no edema Incision: sternotomy - clean, dry and intact, vein harvest site - clean, dry and intact Neurological: alert Pulses: dorsalis pedis CURRENT CORE CARDIAC MEDICATIONS: Beta Zeferino: no, explain -- patient is currently on inotropes ASA: yes Statin: yes SIMA-Inhibitor / ARB: no, explain -- maximizing beta zeferino therapy POSTOPERATIVE COMPLICATIONS: acute post op blood loss anemia ADDITIONAL PROCEDURES: none ASSESSMENT/PLAN: Cardiovascular: -NSR, rate 60s, SBP 100s -CI 2.3-2.5, SVO2 60s -Pressors/Inotropes: Milrinone 0.375, +/- Levo -Beta zeferino: Eventual -Statin: Crestor 40mg -Pre-op EF 35% -Leave swan and arterial line for now while on Milrinone and Levo -Central Line(s): Yes, reason: Hemodynamic monitoring -Pacer Wires: yes Chronic Issues: -HTN on Coreg 12.5, Lisinopril 40, and Norvasc 5 -Hyperlipidemia on Crestor 40 and Zetia -HFrEF on Spironolactone 12.5 Pulmonary: -Extubated to BiPAP after several failed SBTs due to apnea and somnolence -Wean to NCO2 in AM -Daily CXR -Aggressive pulmonary toilet -Chest Tubes/Alen Drains: Yes: drainage 10-30cc/hr, on suction, and continuous airleak Chronic Issues: -COPD on nocturnal 2L NCO2 GI: -Diet: Advance to regular diet as tolerated -Bowel regimen -> no BM since surgery -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 INSULATION INSTALLER Protonix for GI prophylaxis /Renal: -Pre-op renal function normal, last Cr 1.2 -Bejarano: Yes, reason: fluid monitoring and diuresis -IV Lasix 40mg prn Chronic Issues: -BPH on Flomax and Avodart Hematology: -Hgb 9.5, plt 116 -INR 1.1 -SQ Heparin for DVT prophylaxis -Aspirin 81mg -Coumadin per pharmacy (Eliquis 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 INSULATION INSTALLER for apical thrombus) -Plavix starting POD #2 (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 INSULATION INSTALLER for prior CVA) -Blood products: None Neuro/P.T./O.T.: -Neurologically intact -Pain controlled -OOB pending extubation -PT/OT consults -Increase activity as tolerated Chronic Issues: -Anxiety on Wellbutrin and Buspar -RLS on Remeron, Requip, and Lyrica Infectious Disease: -Afebrile, WBC 8.86 -Post-op Ancef x 5 doses -Pre-op nasal culture and UA negative Endo: -Insulin gtt (A1C 5.9) Plan: -Wean Milrinone and Levo as tolerated -D/c swan and arterial line once off Milrinone and Levo -Wean BiPAP to NCO2 in AM -Coumadin per pharmacy (Eliquis 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 INSULATION INSTALLER for apical thrombus) -Plavix starting POD #2 (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 INSULATION INSTALLER for prior CVA) -Advance diet -OOB as tolerated, PT/OT consults Mayra Marinelli PA-C 07/09/2024 12:25 AM Extubated, neuro at baseline Now in afib Will give amiodarone Needs volume Wean milrinone and levo Pulmonary toilet * Respiratory Progress Note - Nelida Brooks, IT LEAD - 07/08/2024 6:13 PM EST RESPIRATORY MECHANICAL VENTILATION PROGRESS NOTE [facility] [place] [address] Name: Henri Vigil Location: [facility] H760/A Date 07/08/2024 Time: 6:13 PM Date of Admission: 07/08/2024 Ventilator Day: #1 Current Ventilator Setting: ASV 120, 40%, +8 Liberation Trial Performed: yes, but failed; went apneic See [facility] Adult Ventilator Flowsheet for more information ABG within the last 12 hours: Latest Reference Range & Units 07/08/24 17:49 pH, Arterial 7.350 - 7.450 units 7.370 pCO2, Arterial 35.0 - 45.0 mmHg 43.4 pO2, Arterial 75.0 - 100.0 mmHg 163.0 (H) O2 Content, Arterial 15.0 - 24.0 %vol 13.6 (L) O2 Flow, Arterial L/min Not Provided Base Excess, Arterial -2.0 - 2.0 mmol/L -0.3 Reduced Hemoglobin, Arterial 0.0 - 5.0 % total Hgb 0.7 Temperature C 37.0 Oxyhemoglobin, Arterial 94.0 - 99.0 % total Hgb 96.1 (H): Data is abnormally high (L): Data is abnormally low Ventilator Changes: no Events of Note: patient had open heart surgery today; unable to wean due to ABGs coming back acidotic so increased ASV to 160 repeat ABG was done at 1749 which was normal; tried SBT at 1807 but pt was going apneic. He will open eyes when you say his name but falls back asleep. Will attempt later onwhen he is more awake. Plan: Wean when able. documented in this encounter Plan of Treatment Upcoming Encounters Date Type Department Care Team (Late st Contact Info) Description 07/16/2024 8:00 AM EST Laboratory Lab Mobile Phlebotomy [facility] [address] [place] [address] Home, [facility] [address] [place] [phone] Arrived 07/21/2024 3:50 PM EST Anticoagulation Family Practice [address] [place] [address] [address] [place] [address] College, Pharmacist [address] [place] [address] 07/22/2024 10:45 AM EST Scheduled Telephone [facility], [facility] [address] [place] [address] Alma Armando, [address] [place] [address] 08/20/2024 10:45 AM EST Office Visit Cardiothoracic Surg [facility] [address] [place] [address] Jayden Galvan MD [address] [place] [address] 09/17/2024 8:40 AM EDT Office Visit Family [address] [facility] [place] [address] Leon Calle, [address] [place] [address] 09/18/2024 8:00 AM EDT Office Visit Cardiology, [facility] [address] [facility] [place] [address] Alexandra Mackenzie CRNP [address] [facility] [place] [phone] 10/10/2024 3:30 PM EDT Imaging Radiology [facility] [address] [facility] [place] [address] 10/17/2024 9:00 AM EDT Office Visit Urology, [facility] [address] [facility] [place] [address] Johnathon Kent PA-C [address] [facility] [place] [address] 02/06/2025 9:30 AM EDT Office Visit Cardiology, [facility] [address] [facility] [place] [address] Poncho Robledo DO [address] [place] [phone] Scheduled Orders Name Type Priority Associated Diagnoses Order Schedule CV ECHO, KAYLEE INTRAOPERATIVE Echocardiology Routine CAD (coronary artery disease) One Time for 1 Occurrences starting 07/08/2024 until 07/08/2024 CV ECHO, KAYLEE INTRAOPERATIVE Echocardiology Routine CAD (coronary artery disease) One Time for 1 Occurrences starting 07/08/2024 until 07/08/2024 EKG EKG STAT Status post surgery One Time for 1 Occurrences starting 07/08/2024 until 07/08/2024 Scheduled Referrals Name Type Priority Associated Diagnoses Orde r Schedule CARDIAC REHAB REFERRAL OP Referral Within 30 days (routine) 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) S/P CABG x 4 Ordered: 07/08/2024 ANTI-COAGULATION REFERRAL OP Referral Within 3 days (urgent) S/P CABG x 4 Ordered: 07/08/2024 NUTRITION-CLINICAL DIETITIAN REFERRAL OP Referral Within 24 hrs (call dept; emergent) CAD (coronary artery disease) S/P CABG x 4 Ordered: 07/13/2024 Health Maintenance Due Date Last Done Comments [...] this encounter Medical Devices Implanted Type Area Aerial Planting And Cultivation Manager Device Identifier Shelf Expiration Date Model / Serial / Lot Lead Kit Trial [id number] 50cm - [id number] - [id number] Implanted:Qty: 1 on 05/08/2024 by Maged Monreal DO at OR [facility] Left: Back [employer] : PAIN MGMT 03/18/2026 [id number] / [id number] / Lead Kit Trial [id number] 50cm - [id number] - [id number] Implanted:Qty: 1 on 05/08/2024 by Maged Monreal DO at OR [facility] Right: Back [employer] : PAIN MGMT 03/18/2026 [id number] 50E0 / [id number] / Suture Steel 6 B&S19 M654g - [id number] Implanted:Qty: 1 on 07/08/2024 by Jayden Galvan MD at OR [facility] N/A: Sternum JNJ : [employer] 03/08/2029 M654G / / [id number] Marker Coronary - [id number] Implanted:Qty: 1 on 07/08/2024 by Jayden Galvan MD at OR [facility] N/A: Heart [employer] 05/08/2027 AMGM-SD / / [id number] Marker Coronary - [id number] Implanted:Qty: 1 on 07/08/2024 by Jayden Galvan MD at OR [facility] N/A: Heart [employer] 06/07/2027 AMGM-SD / / [id number] documented as of this encounter Procedures Procedure Name Priority Date/Time Associated Diagnosis Comments XR CHEST 1 VIEW STAT 07/15/2024 5:48 AM EST DIFFERENTIAL, AUTOMATED STAT 07/15/2024 4:30 AM EST BASIC METABOLIC PANEL STAT 07/15/2024 4:30 AM EST CBC STAT 07/15/2024 4:30 AM EST CBC STAT 07/15/2024 4:30 AM EST MAGNESIUM STAT 07/15/2024 4:30 AM EST PT INR Routine 07/15/2024 4:29 AM EST DIFFERENTIAL, AUTOMATED STAT 07/14/2024 3:43 AM EST BASIC METABOLIC PANEL STAT 07/14/2024 3:43 AM EST CBC STAT 07/14/2024 3:43 AM EST PT INR Routine 07/14/2024 3:43 AM EST CBC STAT 07/14/2024 3:43 AM EST MAGNESIUM STAT 07/14/2024 3:43 AM EST XR CHEST 1 VIEW Routine 07/13/2024 5:31 AM EST Encounter for surgical aftercare following surgery on the circulatory system Chronic pulmonary edema Presence of other specified devices DIFFERENTIAL, AUTOMATED STAT 07/13/2024 4:43 AM EST BASIC METABOLIC PANEL STAT 07/13/2024 4:43 AM EST CBC STAT 07/13/2024 4:43 AM EST PT INR Routine 07/13/2024 4:43 AM EST CBC STAT 07/13/2024 4:43 AM EST MAGNESIUM STAT 07/13/2024 4:43 AM EST BASIC METABOLIC PANEL STAT 07/12/2024 3:59 PM EST TYPE AND SCREEN STAT 07/12/2024 3:59 PM EST CBC STAT 07/12/2024 3:59 PM EST GLUCOSE METER, POINT OF CARE RAIMUNDO 07/12/2024 2:15 PM EST XR CHEST 1 VIEW Routine 07/12/2024 5:40 AM EST Encounter for surgical aftercare following surgery on the circulatory system Chronic pulmonary edema Status post surgery Presence of other specified devices DIFFERENTIAL, AUTOMATED STAT 07/12/2024 4:40 AM EST BASIC METABOLIC PANEL STAT 07/12/2024 4:40 AM EST CBC STAT 07/12/2024 4:40 AM EST PT INR Routine 07/12/2024 4:40 AM EST CBC STAT 07/12/2024 4:40 AM EST MAGNESIUM STAT 07/12/2024 4:40 AM EST XR CHEST 1 VIEW Routine 07/11/2024 5:48 AM EST Encounter for surgical aftercare following surgery on the circulatory system Chronic pulmonary edema Pleural effusion, not elsewhere classified DIFFERENTIAL, AUTOMATED STAT 07/11/2024 4:10 AM EST BASIC METABOLIC PANEL STAT 07/11/2024 4:10 AM EST CBC STAT 07/11/2024 4:10 AM EST PT INR Routine 07/11/2024 4:10 AM EST CBC STAT 07/11/2024 4:10 AM EST MAGNESIUM STAT 07/11/2024 4:10 AM EST XR CHEST 1 VIEW Routine 07/10/2024 5:58 AM EST Encounter for surgical aftercare following surgery on the circulatory system Chronic obstructive pulmonary disease, unspecified (HCC) Other nonspecific abnormal finding of lung field DIFFERENTIAL, AUTOMATED STAT 07/10/2024 3:48 AM EST BASIC METABOLIC PANEL STAT 07/10/2024 3:48 AM EST CBC STAT 07/10/2024 3:48 AM EST PT INR Routine 07/10/2024 3:48 AM EST CBC STAT 07/10/2024 3:48 AM EST DIFFERENTIAL, TECHNOLOGIST REVIEW Routine 07/10/2024 3:48 AM EST MAGNESIUM STAT 07/10/2024 3:48 AM EST POTASSIUM Routine 07/09/2024 10:53 PM EST BASIC METABOLIC PANEL STAT 07/09/2024 12:26 PM EST HC ECG TRACING ONLY STAT 07/09/2024 8 :16 AM EST Heart palpitations HC ECG TRACING ONLY Routine 07/09/2024 6 :25 AM EST Status post surgery XR CHEST 1 VIEW Routine 07/09/2024 5:52 AM EST LACTATE STAT 07/09/2024 5:51 AM EST GLUCOSE METER, POINT OF CARE RAIMUNDO 07/09/2024 4:01 AM EST DIFFERENTIAL, AUTOMATED STAT 07/09/2024 3:53 AM EST BLOOD GAS, ARTERIAL STAT 07/09/2024 3 :53 AM EST BASIC METABOLIC PANEL STAT 07/09/2024 3:53 AM EST O2 SATURATION, VENOUS STAT 07/09/2024 3:53 AM EST CBC STAT 07/09/2024 3:53 AM EST PT INR Routine 07/09/2024 3:53 AM EST CBC STAT 07/09/2024 3:53 AM EST MAGNESIUM STAT 07/09/2024 3:53 AM EST GLUCOSE METER, POINT OF CARE RAIMUNDO 07/09/2024 2:00 AM EST BLOOD GAS, ARTERIAL STAT 07/09/2024 1 2:03 AM EST GLUCOSE METER, POINT OF CARE RAIMUNDO 07/08/2024 11:38 PM EST BLOOD GAS, ARTERIAL STAT 07/08/2024 1 1:32 PM EST GLUCOSE METER, POINT OF CARE RAIMUNDO 07/08/2024 9:50 PM EST BLOOD GAS, ARTERIAL STAT 07/08/2024 9 :43 PM EST GLUCOSE METER, POINT OF CARE RAIMUNDO 07/08/2024 8:00 PM EST GLUCOSE METER, POINT OF CARE RAIMUNDO 07/08/2024 5:54 PM EST WHOLE BLOOD PROFILE, ARTERIAL STAT 07/08/2024 5:49 PM EST BASIC METABOLIC PANEL STAT 07/08/2024 5:49 PM EST CBC STAT 07/08/2024 5:49 PM EST MAGNESIUM STAT 07/08/2024 5:49 PM EST WHOLE BLOOD PROFILE, ARTERIAL STAT 07/08/2024 4:39 PM EST GLUCOSE METER, POINT OF CARE RAIMUNDO 07/08/2024 4:03 PM EST GLUCOSE METER, POINT OF CARE RAIMUNDO 07/08/2024 3:33 PM EST WHOLE BLOOD PROFILE, ARTERIAL STAT 07/08/2024 3:21 PM EST GLUCOSE METER, POINT OF CARE RAIMUNDO 07/08/2024 2:13 PM EST WHOLE BLOOD PROFILE, ARTERIAL STAT 07/08/2024 2:13 PM EST WHOLE BLOOD PROFILE, ARTERIAL STAT 07/08/2024 1:15 PM EST GLUCOSE METER, POINT OF CARE RAIMUNDO 07/08/2024 1:11 PM EST XR ABDOMEN 1 VIEW STAT 07/08/2024 12: 38 PM EST Encounter for fitting and adjustment of other gastrointestinal appliance and device XR CHEST 1 VIEW STAT 07/08/2024 12:38 PM EST Encounter for fitting and adjustment of other gastrointestinal appliance and device WHOLE BLOOD PROFILE, ARTERIAL STAT 07/08/2024 12:34 PM EST TEG (THOMROBOELASTOGRAPH) PANEL STAT 07/08/2024 12:32 PM EST TEG (THROMBOELASTOGRAPH), HEPARINASE STAT 07/08/2024 12:32 PM EST TEG (THROMBOELASTOGRAPH) STAT 07/08/2024 12:32 PM EST BASIC METABOLIC PANEL STAT 07/08/2024 12:32 PM EST HEPARIN, UNFRACTIONATED STAT 07/08/2024 12:32 PM EST ANTITHROMBIN III ACTIVITY STAT 07/08/2024 12:32 PM EST O2 SATURATION, VENOUS STAT 07/08/2024 12:32 PM EST PT INR STAT 07/08/2024 12:32 PM EST APTT STAT 07/08/2024 12:32 PM EST FIBRINOGEN STAT 07/08/2024 12:32 PM EST CBC STAT 07/08/2024 12:32 PM EST MAGNESIUM STAT 07/08/2024 12:32 PM EST BLOOD GAS WITH CHEMISTRY, POINT OF CARE RAIMUNDO 07/08/2024 12:20 PM EST BLOOD GAS WITH CHEMISTRY, POINT OF CARE RAIMUNDO 07/08/2024 11:24 AM EST ACT, POINT OF CARE RAIMUNDO 07/08/2024 11 :24 AM EST WHOLE BLOOD PROFILE, ARTERIAL STAT 07/08/2024 11:12 AM EST LACTATE,WHOLE BLOOD STAT 07/08/2024 1 1:12 AM EST BLOOD GAS WITH CHEMISTRY, POINT OF CARE [facility] 07/08/2024 10:40 AM EST ACT, POINT OF CARE RAIMUNDO 07/08/2024 10 :39 AM EST ACT, POINT OF CARE RAIMUNDO 07/08/2024 10 :18 AM EST CBC STAT 07/08/2024 10:00 AM EST ACT, POINT OF CARE RAIMUNDO 07/08/2024 9: 56 AM EST TEG (THOMROBOELASTOGRAPH) PANEL STAT 07/08/2024 9:50 AM EST TEG (THROMBOELASTOGRAPH), HEPARINASE STAT 07/08/2024 9:50 AM EST TEG (THROMBOELASTOGRAPH) STAT 07/08/2024 9:50 AM EST PT INR STAT 07/08/2024 9:50 AM EST APTT STAT 07/08/2024 9:50 AM EST FIBRINOGEN STAT 07/08/2024 9:50 AM EST TEG (THOMROBOELASTOGRAPH) PANEL STAT 07/08/2024 9:47 AM EST TEG (THROMBOELASTOGRAPH), HEPARINASE STAT 07/08/2024 9:47 AM EST WHOLE BLOOD PROFILE, VENOUS STAT 07/08/2024 9:47 AM EST BLOOD GAS, ARTERIAL STAT 07/08/2024 9 :47 AM EST TEG (THROMBOELASTOGRAPH) STAT 07/08/2024 9:47 AM EST PLT STAT 07/08/2024 9:47 AM EST HCT STAT 07/08/2024 9:47 AM EST FIBRINOGEN STAT 07/08/2024 9:47 AM EST ACT, POINT OF CARE RAIMUNDO 07/08/2024 9: 30 AM EST BLOOD GAS WITH CHEMISTRY, POINT OF CARE RAIMUNDO 07/08/2024 9:26 AM EST ACT, POINT OF CARE RAIMUNDO 07/08/2024 9: 16 AM EST ACT, POINT OF CARE RAIMUNDO 07/08/2024 9: 16 AM EST ACT, POINT OF CARE RAIMUNDO 07/08/2024 8: 01 AM EST BLOOD GAS WITH CHEMISTRY, POINT OF CARE RAIMUNDO 07/08/2024 8:00 AM EST GLUCOSE METER, POINT OF CARE Routine 07/08/2024 6:34 AM EST ENDO,VIDEO ASSIST HARVEST TEJ 07/08/2024 6:30 AM EST 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) CABG, ARTERY-VEIN, TWO 07/08/2024 6:30 AM EST 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) CABG, ARTERIAL, SINGLE 07/08/2024 6:30 AM EST 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 Narrative 07/15/2024 7:22 AM EST EXAM XR CHEST 1 VIEW- 07/15/2024 5:48 am HISTORY s/p CABG still on 2L NCO2 COMPARISON XR CHEST 1 VIEW, ACC: [id number], dated 2024-07-13 05:11:35; XR CHEST 1 VIEW, ACC: [id number], dated 2024-07-12 05:04:16 TECHNIQUE Portable semi-uprightapical lordotic AP view of the chest was obtained. FINDINGS Catheters: None Tubes: None Foreign bodies: Mediastinal sutures and clips are present. Cardiac silhouette is enlarged. The aorta is elongated and calcified. There is increased vascularity in the upper lobes of the lung huertas with ground-glass opacity bilaterally. There is airspace opacity and consolidations/atelectasis noted in the left base with likely underlying pleural effusion. Procedure Note Antoinette Blanco MD - 07/15/2024 EXAM XR CHEST 1 VIEW- 07/15/2024 5:48 am HISTORY s/p CABG still on 2L NCO2 COMPARISON XR CHEST 1 VIEW, ACC: [id number], dated 2024-07-13 05:11:35; XR CHEST 1 VIEW, ACC: [id number], dated 2024-07-12 05:04:16 TECHNIQUE Portable semi-uprightapical lordotic AP view of the chest was obtained. FINDINGS Catheters: None Tubes: None Foreign bodies: Mediastinal sutures and clips are present. Cardiac silhouette is enlarged. The aorta is elongated and calcified.There is increased vascularity in the upper lobes of the lung huertas withground-glass opacity bilaterally. There is airspace opacity andconsolidations/atelectasis noted in the left base with likely underlyingpleural effusion. IMPRESSION IMPRESSION Opacity in the lung huertas bilaterally similar to mildly increased fromprior examination likely pleural effusion and underlying parenchymaldisease likely subsegmental atelectasis. Gil [facility] (RAD GENERAL) Final Re sult * (ABNORMAL) DIFFERENTIAL, AUTOMATED (07/15/2024 4:30 AM EST) WBC 7.42 4.00 - 10.80 K/uL 07/15/2024 5:05 AM EST LABORATORY [facility] Neutrophils % 75.4(H) 40.0 - 75.0 % 07/15/2024 5:05 AM EST LAB[facility]ATORY [facility] Lymphocytes % 11.5(L) 18.0 - 42.0 % 07/15/2024 5:05 AM EST LAB[facility]ATORY [facility] Monocytes % 9.8 1.0 - 11.0 % 07/15/2024 5:05 AM EST LAB[facility]ATORY [facility] Eosinophils % 2.6 0.0 - 6.0 % 07/15/2024 5:05 AM EST LAB[facility]AT[facility] Basophils % 0.3 0.0 - 2.0 % 07/15/2024 5:05 AM EST LAB[facility]ATORY [facility] Immature Granulocytes % 0.4 0.0 - 2.0 % 07/15/2024 5:05 AM EST LABORATORY [facility] Absolute Neutrophils 5.60 1.80 - 7.70 K/uL 07/15/2024 5:05 AM EST LABORATORY [facility] Absolute Lymphocytes 0.85(L) 1.00 - 4.80 K/ul 07/15/2024 5:05 AM EST LAB[facility]ATORY [facility] Absolute Monocytes 0.73 0.00 - 1.10 K/uL 07/15/2024 5:05 AM EST LAB[facility]ATORY [facility] Absolute Eosinophils 0.19 0.00 - 0.70 K/uL 07/15/2024 5:05 AM EST LAB[facility]ATORY [facility] Absolute Basophils 0.02 0.00 - 0.20 K/uL 07/15/2024 5:05 AM EST LAB[facility]ATORY [facility] Absolute Immature Granulocytes 0.03 0.00 - 0.20 K/uL 07/15/2024 5:05 AM EST LAB[facility] Blood Venous blood specimen / Unknown Venipuncture / Unknown 07/15/2024 4:30 AM EST 07/15/2024 4:52 AM EST us Patria Mott PA-C LAB BLOOD ORDERABLES Ashwini norwood Result LAB[facility]ATORY [facility] [address] [place] [address] * (ABNORMAL) CBC (07/15/2024 4:30 AM EST) WBC 7.42 4.00 - 10.80 K/uL 07/15/2024 5:05 AM EST LAB[facility]ATORY [facility] RBC 3.17 4.50 - 5.25 M/uL 07/15/2024 5:05 AM EST LAB[facility]AT[facility] HGB 10.0(L) 14.0 - 16.8 g/dL 07/15/2024 5:05 AM EST LAB[facility] HCT 30.4(L) 40.0 - 48.4 % 07/15/2024 5:05 AM EST LAB[facility]AT[facility] MCV 95.9 82.0 - 99.5 fL 07/15/2024 5:05 AM EST LAB[facility] MCH 31.5 27.0 - 34.0 pg 07/15/2024 5:05 AM EST LAB[facility]AT[facility] MCHC 32.9 32.0 - 36.0 g/dL 07/15/2024 5:05 AM EST LAB[facility] RDW 13.6 11.5 - 15.5 % 07/15/2024 5:05 AM EST LAB[facility] PLT 220 140 - 400 K/uL 07/15/2024 5:05 AM EST LAB[facility]ORY [facility] MPV 10.6 6.6 - 11.1 fL 07/15/2024 5:05 AM EST LAB[facility]ATORY [facility] nRBCs 0 <=0 /100 WBCs 07/15/2024 5:05 AM EST LABORATORY GM Blood Venous blood specimen / Unknown Venipuncture / Unknown 07/15/2024 4:30 AM EST 07/15/2024 4:52 AM EST Patria CHINCHILLA-C LAB BLOOD ORDERABLES Ashwini l Result Performing Organization Address City/[facility]/ZIP Co de Phone Number LABORATORY [facility] [address] [place] [address] * MAGNESIUM (07/15/2024 4:30 AM EST) Magnesium 2.1 1.5 - 2.6 mg/dL 07/15/2024 5:24 AM EST LABORATORY [facility] Blood Venous blood specimen / Unknown Venipuncture / Unknown 07/15/2024 4:30 AM EST 07/15/2024 4:52 AM EST Patria CHINCHILLA-C LAB BLOOD ORDERABLES Ashwini l Result Performing Organization Address City/[facility] Co de Phone Number LABORATORY [facility] [address] [place] [address] * (ABNORMAL) BASIC METABOLIC PANEL (07/15/2024 4:30 AM EST) BUN 31(H) 6 - 20 mg/dL 07/15/2024 5:24 AM EST LABORATORY [facility] CREATININE 1.3(H) 0.6 - 1.2 mg/dL 07/15/2024 5:24 AM EST LABORATORY GM EGFR 59(L) >=60 mL/min 07/15/2024 5:24 AM EST LABORATORY [facility] Comment:eGFR is calculated b ased on the CKD-EPI 2020 equation. SODIUM 138 135 - 146 mmol/L 07/15/2024 5:24 AM EST LAB[facility]ATORY [facility] POTASSIUM 4.4 3.5 - 5.1 mmol/L 07/15/2024 5:24 AM EST LAB[facility]ATORY [facility] CHLORIDE 105 98 - 107 mmol/L 07/15/2024 5:24 AM EST LAB[facility]ATORY [facility] CO2 21(L) 22 - 32 mmol/L 07/15/2024 5:24 AM EST LAB[facility]ATORY [facility] ANION GAP 12 7 - 15 mmol/L 07/15/2024 5:24 AM EST LAB[facility] GLUCOSE 96 70 - 120 mg/dL 07/15/2024 5:24 AM EST LAB[facility]AT[facility] CALCIUM 8.3(L) 8.4 - 10.2 mg/dL 07/15/2024 5:24 AM EST LAB[facility] Blood Venous blood specimen / Unknown Venipuncture / Unknown 07/15/2024 4:30 AM EST 07/15/2024 4:52 AM EST Patria Mott PA-C LAB BLOOD ORDERABLES Ashwini l Result Performing Organization Address [facility] de Phone Number LABORATORY [place] [address], [place] [phone] * (ABNORMAL) PT INR (07/15/2024 4:29 AM EST) Prothrombin Time 31.5(H) 11.6 - 15.2 seconds 07/15/2024 5:20 AM EST LABORATORY [facility] INR 3.0(H) 0.8 - 1.2 07/15/2024 5:20 AM EST LABORATORY [facility] Blood Venous blood specimen / Unknown Venipuncture / Unknown 07/15/2024 4:29 AM EST 07/15/2024 4:52 AM EST Narrative LABORATORY C - 07/15/2024 5:20 AM EST Warfarin Therapy INR: 2.0-3.0 conventional anticoagulation INR: 2.5-3.5 high intensity anticoagulation Patria Mott PA-C LAB BLOOD ORDERABLES Ashwini l Result Performing Organization Address City/[facility] Co de Phone Number LABORATORY [address] [address] * (ABNORMAL) DIFFERENTIAL, AUTOMATED (07/14/2024 3:43 AM EST) WBC 7.25 4.00 - 10.80 K/uL 07/14/2024 4:05 AM EST LAB[facility]ATORY [facility] Neutrophils % 63.7 40.0 - 75.0 % 07/14/2024 4:05 AM EST LAB[facility]ORY [facility] Lymphocytes % 20.0 18.0 - 42.0 % 07/14/2024 4:05 AM EST LAB[facility]ATORY [facility] Monocytes % 12.1(H) 1.0 - 11.0 % 07/14/2024 4:05 AM EST LAB[facility] Eosinophils % 3.6 0.0 - 6.0 % 07/14/2024 4:05 AM EST LAB[facility]ATORY [facility] Basophils % 0.3 0.0 - 2.0 % 07/14/2024 4:05 AM EST LAB[facility] Immature Granulocytes % 0.3 0.0 - 2.0 % 07/14/2024 4:05 AM EST LAB[facility]ATORY [facility] Absolute Neutrophils 4.62 1.80 - 7.70 K/uL 07/14/2024 4:05 AM EST LAB[facility]ATORY [facility] Absolute Lymphocytes 1.45 1.00 - 4.80 K/ul 07/14/2024 4:05 AM EST LAB[facility]ATORY [facility] Absolute Monocytes 0.88 0.00 - 1.10 K/uL 07/14/2024 4:05 AM EST LAB[facility]ATORY [facility] Absolute Eosinophils 0.26 0.00 - 0.70 K/uL 07/14/2024 4:05 AM EST LAB[facility]ATORY [facility] Absolute Basophils 0.02 0.00 - 0.20 K/uL 07/14/2024 4:05 AM EST LAB[facility]ATORY [facility] Absolute Immature Granulocytes 0.02 0.00 - 0.20 K/uL 07/14/2024 4:05 AM EST [facility] Blood Venous blood specimen / Unknown Venipuncture / Unknown 07/14/2024 3:43 AM EST 07/14/2024 3:55 AM EST us Patria Mott PA-C LAB BLOOD ORDERABLES Ashwini cuco Result LABORATORY [facility] [address] [place] [address] * (ABNORMAL) CBC (07/14/2024 3:43 AM EST) WBC 7.25 4.00 - 10.80 K/uL 07/14/2024 4:05 AM EST [facility] RBC 3.18 4.50 - 5.25 M/uL 07/14/2024 4:05 AM EST LAB[facility] HGB 10.2(L) 14.0 - 16.8 g/dL 07/14/2024 4:05 AM EST [facility] HCT 31.1(L) 40.0 - 48.4 % 07/14/2024 4:05 AM EST LAB[facility] MCV 97.8 82.0 - 99.5 fL 07/14/2024 4:05 AM EST LAB[facility]AT[facility] MCH 32.1 27.0 - 34.0 pg 07/14/2024 4:05 AM EST LAB[facility]AT[facility] MCHC 32.8 32.0 - 36.0 g/dL 07/14/2024 4:05 AM EST LAB[facility] RDW 13.7 11.5 - 15.5 % 07/14/2024 4:05 AM EST LAB[facility] PLT 188 140 - 400 K/uL 07/14/2024 4:05 AM EST [facility] MPV 10.5 6.6 - 11.1 fL 07/14/2024 4:05 AM EST LAB[facility] nRBCs 0 <=0 /100 WBCs 07/14/2024 4:05 AM EST LABORATORY [facility] Blood Venous blood specimen / Unknown Venipuncture / Unknown 07/14/2024 3:43 AM EST 07/14/2024 3:55 AM EST Patria Mott PA-C LAB BLOOD ORDERABLES Ashwini l Result Performing Organization Address City/State/[facility] Co de Phone Number LABORATORY [facility] [place] [address] [place] [address] * (ABNORMAL) PT INR (07/14/2024 3:43 AM EST) Pathologist [facility] Prothrombin Time 25.1(H) 11.6 - 15.2 seconds 07/14/2024 4:20 AM EST LABORATORY [facility] INR 2.2(H) 0.8 - 1.2 07/14/2024 4:20 AM EST LAB[facility]ATORY [facility] Blood Venous blood specimen / Unknown Venipuncture / Unknown 07/14/2024 3:43 AM EST 07/14/2024 3:55 AM EST Narrative LABORATORY [facility] - 07/14/2024 4:20 AM EST Warfarin Therapy INR: 2.0-3.0 conventional anticoagulation INR: 2.5-3.5 high intensity anticoagulation Patria CHINCHILLA-C LAB BLOOD ORDERABLES Ashwini l Result Performing Organization Address City/[facility]/ZIP Co de Phone Number LABORATORY [facility] [address] [place] [address] * MAGNESIUM (07/14/2024 3:43 AM EST) Magnesium 2.2 1.5 - 2.6 mg/dL 07/14/2024 4:25 AM EST LABORATORY [facility] [facility] Blood Venous blood specimen / Unknown Venipuncture / Unknown 07/14/2024 3:43 AM EST 07/14/2024 3:55 AM EST Patria CHINCHILLA-C LAB BLOOD ORDERABLES Ashwini l Result Performing Organization Address [facility] de Phone Number LABORATORY [facility] [place] [address] [place] [address] * (ABNORMAL) BASIC METABOLIC PANEL (07/14/2024 3:43 AM EST) BUN 36(H) 6 - 20 mg/dL 07/14/2024 4:25 AM EST LABORATORY [facility] CREATININE 1.2 0.6 - 1.2 mg/dL 07/14/2024 4:25 AM EST LABORATORY [facility] EGFR 62 >=60 mL/min 07/14/2024 4:25 AM EST LABORATORY [facility] Comment:eGFR is calculated b ased on the CKD-EPI 2020 equation. SODIUM 137 135 - 146 mmol/L 07/14/2024 4:25 AM EST LAB[facility]ATORY [facility] POTASSIUM 4.2 3.5 - 5.1 mmol/L 07/14/2024 4:25 AM EST LAB[facility]ATORY [facility] CHLORIDE 105 98 - 107 mmol/L 07/14/2024 4:25 AM EST LAB[facility]ORY [facility] CO2 20(L) 22 - 32 mmol/L 07/14/2024 4:25 AM EST LAB[facility]ORY [facility] ANION GAP 12 7 - 15 mmol/L 07/14/2024 4:25 AM EST LAB[facility] GLUCOSE 86 70 - 120 mg/dL 07/14/2024 4:25 AM EST LAB[facility]ORY [facility] CALCIUM 8.3(L) 8.4 - 10.2 mg/dL 07/14/2024 4:25 AM EST LAB[facility]ORY [facility] Blood Venous blood specimen / Unknown Venipuncture / Unknown 07/14/2024 3:43 AM EST 07/14/2024 3:55 AM EST Patria Mott PA-C LAB BLOOD ORDERABLES Ashwini l Result LABORATORY [facility] [address] [place] [address] * XR CHEST 1 VIEW (07/13/2024 5:31 AM EST) Anatomical Region Laterality Modality Chest Computed Radiogr aphy 07/13/2024 7:15 AM EST Impressions 07/13/2024 7:12 AM EST IMPRESSION Lines/Tubes: None. Lungs/Pleura: Similar mild pulmonary edema and probable layering pleural effusions. No pneumothorax. Heart/Mediastinum: Cardiomediastinal silhouette is unchanged. Narrative 07/13/2024 7:12 AM EST EXAM XR CHEST 1 VIEW-07/13/2024 5:31 am HISTORY follow up postop open heart COMPARISON 07/12/2024 TECHNIQUE Single frontal view of the chest. FINDINGS See impression below. Procedure Note Terrence Mustafa MD - 07/13/2024 EXAM XR CHEST 1 VIEW-07/13/2024 5:31 am HISTORY follow up postop open heart COMPARISON 07/12/2024 TECHNIQUE Single frontal view of the chest. FINDINGS See impression below. IMPRESSION IMPRESSION Lines/Tubes: None. Lungs/Pleura: Similar mild pulmonary edema and probable layering pleuraleffusions. No pneumothorax. Heart/Mediastinum: Cardiomediastinal silhouette is unchanged. us Patria Mott PA-C RADIOLOGY (RAD GENERAL) F inal Result * (ABNORMAL) DIFFERENTIAL, AUTOMATED (07/13/2024 4:43 AM EST) WBC 5.95 4.00 - 10.80 K/uL 07/13/2024 5:25 AM EST LAB[facility]ATORY [facility] Neutrophils % 63.6 40.0 - 75.0 % 07/13/2024 5:25 AM EST LAB[facility]ORY [facility] Lymphocytes % 21.2 18.0 - 42.0 % 07/13/2024 5:25 AM EST LAB[facility]ORY [facility] Monocytes % 12.1(H) 1.0 - 11.0 % 07/13/2024 5:25 AM EST LAB[facility] Eosinophils % 2.5 0.0 - 6.0 % 07/13/2024 5:25 AM EST LAB[facility]ORY [facility] Basophils % 0.3 0.0 - 2.0 % 07/13/2024 5:25 AM EST LAB[facility]ORY [facility] Immature Granulocytes % 0.3 0.0 - 2.0 % 07/13/2024 5:25 AM EST LAB[facility]ATORY [facility] Absolute Neutrophils 3.78 1.80 - 7.70 K/uL 07/13/2024 5:25 AM EST LAB[facility]ATORY [facility] Absolute Lymphocytes 1.26 1.00 - 4.80 K/ul 07/13/2024 5:25 AM EST LAB[facility]ATORY [facility] Absolute Monocytes 0.72 0.00 - 1.10 K/uL 07/13/2024 5:25 AM EST LAB[facility]ATORY [facility] Absolute Eosinophils 0.15 0.00 - 0.70 K/uL 07/13/2024 5:25 AM EST LAB[facility]ATORY [facility] Absolute Basophils 0.02 0.00 - 0.20 K/uL 07/13/2024 5:25 AM EST LAB[facility]ATORY [facility] Absolute Immature Granulocytes 0.02 0.00 - 0.20 K/uL 07/13/2024 5:25 AM EST LAB[facility]ORY [facility] Blood Venous blood specimen / Unknown Venipuncture / Unknown 07/13/2024 4:43 AM EST 07/13/2024 5:15 AM EST us Patria Mott PA-C LAB BLOOD ORDERABLES Ashwini l Result [facility] [address] [facility] [address] [place] [address] * (ABNORMAL) CBC (07/13/2024 4:43 AM EST) WBC 5.95 4.00 - 10.80 K/uL 07/13/2024 5:25 AM EST LAB[facility]ATORY [facility] RBC 3.12 4.50 - 5.25 M/uL 07/13/2024 5:25 AM EST LAB[facility]ATORY [facility] HGB 10.0(L) 14.0 - 16.8 g/dL 07/13/2024 5:25 AM EST LAB[facility]ORY [facility] HCT 30.4(L) 40.0 - 48.4 % 07/13/2024 5:25 AM EST LAB[facility]ORY [facility] MCV 97.4 82.0 - 99.5 fL 07/13/2024 5:25 AM EST LAB[facility]ATORY [facility] MCH 32.1 27.0 - 34.0 pg 07/13/2024 5:25 AM EST LAB[facility]ATORY [facility] MCHC 32.9 32.0 - 36.0 g/dL 07/13/2024 5:25 AM EST LAB[facility]ATORY [facility] RDW 13.9 11.5 - 15.5 % 07/13/2024 5:25 AM EST LAB[facility]ATORY [facility] PLT 153 140 - 400 K/uL 07/13/2024 5:25 AM EST LAB[facility]ATORY [facility] MPV 10.7 6.6 - 11.1 fL 07/13/2024 5:25 AM EST LAB[facility]ATORY [facility] nRBCs 0 <=0 /100 WBCs 07/13/2024 5:25 AM EST LAB[facility]ORY [facility] Blood Venous blood specimen / Unknown Venipuncture / Unknown 07/13/2024 4:43 AM EST 07/13/2024 5:15 AM EST us Patria Mott PA-C LAB BLOOD ORDERABLES Ashwini l Result LABORATORY [facility] [address] [address] * (ABNORMAL) PT INR (07/13/2024 4:43 AM EST) Prothrombin Time 24.8(H) 11.6 - 15.2 seconds 07/13/2024 5:37 AM EST LAB[facility]ATORY [facility] INR 2.2(H) 0.8 - 1.2 07/13/2024 5:37 AM EST LABORATORY [facility] Blood Venous blood specimen / Unknown Venipuncture / Unknown 07/13/2024 4:43 AM EST 07/13/2024 5:15 AM EST Narrative LABORATORY [facility] - 07/13/2024 5:37 AM EST Warfarin Therapy INR: 2.0-3.0 conventional anticoagulation INR: 2.5-3.5 high intensity anticoagulation Patria Mott PA-C LAB BLOOD ORDERABLES Ashwini l Result LABORATORY [place] [address] [place] [address] * MAGNESIUM (07/13/2024 4:43 AM EST) Magnesium 2.3 1.5 - 2.6 mg/dL 07/13/2024 5:45 AM EST LABORATORY [facility] Blood Venous blood specimen / Unknown Venipuncture / Unknown 07/13/2024 4:43 AM EST 07/13/2024 5:15 AM EST Patria Mott PA-C LAB BLOOD ORDERABLES Ashwini l Result LABORATORY [place] [address] [place] [address] * (ABNORMAL) BASIC METABOLIC PANEL (07/13/2024 4:43 AM EST) BUN 33(H) 6 - 20 mg/dL 07/13/2024 5:45 AM EST LABORATORY [facility] [place] CREATININE 1.2 0.6 - 1.2 mg/dL 07/13/2024 5:45 AM EST LABORATORY [facility] EGFR 62 >=60 mL/min 07/13/2024 5:45 AM EST LABORATORY [facility] Comment:eGFR is calculated b ased on the CKD-EPI 2020 equation. SODIUM 143 135 - 146 mmol/L 07/13/2024 5:45 AM EST LABORATORY [facility] POTASSIUM 4.2 3.5 - 5.1 mmol/L 07/13/2024 5:45 AM EST LAB[facility]ATORY [facility] CHLORIDE 109(H) 98 - 107 mmol/L 07/13/2024 5:45 AM EST LAB[facility]ATORY [facility] CO2 25 22 - 32 mmol/L 07/13/2024 5:45 AM EST LAB[facility]ATORY [facility] ANION GAP 9 7 - 15 mmol/L 07/13/2024 5:45 AM EST LAB[facility]ORY [facility] GLUCOSE 91 70 - 120 mg/dL 07/13/2024 5:45 AM EST LAB[facility]ATORY [facility] CALCIUM 8.3(L) 8.4 - 10.2 mg/dL 07/13/2024 5:45 AM EST LABORATORY C Blood Venous blood specimen / Unknown Venipuncture / Unknown 07/13/2024 4:43 AM EST 07/13/2024 5:15 AM EST us Patria Mott PA-C LAB BLOOD ORDERABLES Ashwini l Result Performing Organization Address City/[facility]/ZIP Co de Phone Number LABORATORY [facility] [address] [place] [address] * TYPE AND SCREEN (07/12/2024 3:59 PM EST) ABO O 07/12/2024 5:02 PM EST LABORATORY [facility] [facility] BLOOD BANK Rh Negative 07/12/2024 5:02 PM EST LABORATORY [facility] BLOOD BANK Red Blood Cell Antibody Screen Negative 07/12/2024 5:02 PM EST LABORATORY [facility] BLOOD BANK Specimen Expiration Date 07/15/2024 23:59 07/12/2024 5:02 PM EST LABORATORY [facility] BLOOD BANK Blood Venous blood specimen / Unknown Venipuncture / Unknown 07/12/2024 3:59 PM EST 07/12/2024 4:20 PM EST us Cherelle Osman PA-C LAB BLOOD BANK TEST ORDERA BLES Final Result Performing Organization Address City/[facility]/ZIP Co de Phone Number LABORATORY [facility] BLOOD BANK [address] [place] [address] * (ABNORMAL) BASIC METABOLIC PANEL (07/12/2024 3:59 PM EST) BUN 34(H) 6 - 20 mg/dL 07/12/2024 4:49 PM EST LAB[facility]ATORY [facility] CREATININE 1.2 0.6 - 1.2 mg/dL 07/12/2024 4:49 PM EST LAB[facility]ATORY [facility] EGFR 67 >=60 mL/min 07/12/2024 4:49 PM EST LAB[facility]ATORY [facility] Comment:eGFR is calculated b ased on the CKD-EPI 2020 equation. SODIUM 140 135 - 146 mmol/L 07/12/2024 4:49 PM EST LAB[facility]ATORY [facility] POTASSIUM 4.2 3.5 - 5.1 mmol/L 07/12/2024 4:49 PM EST LAB[facility]ORY [facility] CHLORIDE 104 98 - 107 mmol/L 07/12/2024 4:49 PM EST LAB[facility]ATORY [facility] CO2 24 22 - 32 mmol/L 07/12/2024 4:49 PM EST LAB[facility]ATORY [facility] ANION GAP 12 7 - 15 mmol/L 07/12/2024 4:49 PM EST LAB[facility]ATORY [facility] GLUCOSE 169(H) 70 - 120 mg/dL 07/12/2024 4:49 PM EST LAB[facility]ATORY [facility] CALCIUM 8.4 8.4 - 10.2 mg/dL 07/12/2024 4:49 PM EST LAB[facility]ATORY [facility] Blood Venous blood specimen / Unknown Venipuncture / Unknown 07/12/2024 3:59 PM EST 07/12/2024 4:20 PM EST us Cherelle Osman PA-C LAB BLOOD ORDERABLES Final Result Performing Organization Address City/State/[facility] Co de Phone Number LABORATORY [facility] [address] [place] [address] * (ABNORMAL) CBC (07/12/2024 3:59 PM EST) WBC 6.21 4.00 - 10.80 K/uL 07/12/2024 4:28 PM EST LAB[facility]ATORY [facility] RBC 3.04 4.50 - 5.25 M/uL 07/12/2024 4:28 PM EST LAB[facility]ATORY [facility] HGB 9.8(L) 14.0 - 16.8 g/dL 07/12/2024 4:28 PM EST LAB[facility]ATORY [facility] HCT 28.9(L) 40.0 - 48.4 % 07/12/2024 4:28 PM EST LABORATORY [facility] MCV 95.1 82.0 - 99.5 fL 07/12/2024 4:28 PM EST LAB[facility]ATORY [facility] MCH 32.2 27.0 - 34.0 pg 07/12/2024 4:28 PM EST LABORATORY [facility] MCHC 33.9 32.0 - 36.0 g/dL 07/12/2024 4:28 PM EST LABORATORY [facility] RDW 13.6 11.5 - 15.5 % 07/12/2024 4:28 PM EST LABORATORY [facility] PLT 146 140 - 400 K/uL 07/12/2024 4:28 PM EST LABORATORY C MPV 11.0 6.6 - 11.1 fL 07/12/2024 4:28 PM EST LABORATORY C nRBCs 0 <=0 /100 WBCs 07/12/2024 4:28 PM EST LABORATORY [facility] [facility] Blood Venous blood specimen / Unknown Venipuncture / Unknown 07/12/2024 3:59 PM EST 07/12/2024 4:20 PM EST us Cherelle Osman PA-C LAB BLOOD ORDERABLES Final Result LABORATORY [facility] [address] [place] [address] * (ABNORMAL) GLUCOSE METER, POINT OF CARE (07/12/2024 2:15 PM EST) [facility] GLUCOSE - POCT 171(H) 70 - 120 mg/dL 07/12/2024 2:19 PM EST [facility] Blood Whole blood specimen / Unknown 07/12/2024 2:15 PM EST 07/12/2024 2:19 PM EST us Jayden Galvan MD LAB POINT O F CARE TEST DOCKED DEVICE UNSOLICITED RESULTS Final Result [facility] [address] [place] [address] * XR CHEST 1 VIEW (07/12/2024 5:40 AM EST) Anatomical Region Laterality Modality Chest Computed Radiogr aphy 07/12/2024 7:12 AM EST Impressions 07/12/2024 7:10 AM EST IMPRESSION Lines/Tubes: Interval removal right IJ vascular sheath. Lungs/Pleura: Similar mild pulmonary edema and probable layering bilateral pleural effusions. No pneumothorax Heart/Mediastinum: Cardiomediastinal silhouette is unchanged. Narrative 07/12/2024 7:10 AM EST EXAM XR CHEST 1 VIEW-07/12/2024 5:40 am HISTORY follow up postop open heart COMPARISON 07/11/2024 TECHNIQUE Single frontal view of the chest. FINDINGS See impression below. Procedure Note Terrence Mustafa MD - 07/12/2024 EXAM XR CHEST 1 VIEW-07/12/2024 5:40 am HISTORY follow up postop open heart COMPARISON 07/11/2024 TECHNIQUE Single frontal view of the chest. FINDINGS See impression below. IMPRESSION IMPRESSION Lines/Tubes: Interval removal right IJ vascular sheath. Lungs/Pleura: Similar mild pulmonary edema and probable layering bilateralpleural effusions. No pneumothorax Heart/Mediastinum: Cardiomediastinal silhouette is unchanged. us Patria Mott PA-C RADIOLOGY (RAD GENERAL) F inal Result * DIFFERENTIAL, AUTOMATED (07/12/2024 4:40 AM EST) WBC 6.57 4.00 - 10.80 K/uL 07/12/2024 5:24 AM EST LABORATORY [facility] Neutrophils % 68.4 40.0 - 75.0 % 07/12/2024 5:24 AM EST LAB[facility]ATORY [facility] Lymphocytes % 18.9 18.0 - 42.0 % 07/12/2024 5:24 AM EST LAB[facility]ATORY [facility] Monocytes % 10.2 1.0 - 11.0 % 07/12/2024 5:24 AM EST LAB[facility]ATORY [facility] Eosinophils % 1.5 0.0 - 6.0 % 07/12/2024 5:24 AM EST LAB[facility]ATORY [facility] Basophils % 0.5 0.0 - 2.0 % 07/12/2024 5:24 AM EST LAB[facility]ATORY [facility] Immature Granulocytes % 0.5 0.0 - 2.0 % 07/12/2024 5:24 AM EST LAB[facility]ATORY [facility] Absolute Neutrophils 4.50 1.80 - 7.70 K/uL 07/12/2024 5:24 AM EST LAB[facility]ATORY [facility] Absolute Lymphocytes 1.24 1.00 - 4.80 K/ul 07/12/2024 5:24 AM EST LAB[facility]ATORY [facility] Absolute Monocytes 0.67 0.00 - 1.10 K/uL 07/12/2024 5:24 AM EST LAB[facility]ATORY [facility] Absolute Eosinophils 0.10 0.00 - 0.70 K/uL 07/12/2024 5:24 AM EST LAB[facility]ATORY [facility] Absolute Basophils 0.03 0.00 - 0.20 K/uL 07/12/2024 5:24 AM EST LAB[facility]ATORY [facility] Absolute Immature Granulocytes 0.03 0.00 - 0.20 K/uL 07/12/2024 5:24 AM EST LAB[facility]ATORY [facility] Blood Venous blood specimen / Unknown Venipuncture / Unknown 07/12/2024 4:40 AM EST 07/12/2024 4:58 AM EST Patria Mott PA-C LAB BLOOD ORDERABLES Ashwini l Result LABORATORY [facility] [address] [place] [address] * (ABNORMAL) CBC (07/12/2024 4:40 AM EST) WBC 6.57 4.00 - 10.80 K/uL 07/12/2024 5:24 AM EST LABORATORY [facility] RBC 2.75 4.50 - 5.25 M/uL 07/12/2024 5:24 AM EST LAB[facility]ATORY [facility] HGB 8.8(L) 14.0 - 16.8 g/dL 07/12/2024 5:24 AM EST LABORATORY [facility] HCT 26.6(L) 40.0 - 48.4 % 07/12/2024 5:24 AM EST LABORATORY [facility] MCV 96.7 82.0 - 99.5 fL 07/12/2024 5:24 AM EST LABORATORY [facility] MCH 32.0 27.0 - 34.0 pg 07/12/2024 5:24 AM EST LAB[facility]ATORY [facility] MCHC 33.1 32.0 - 36.0 g/dL 07/12/2024 5:24 AM EST LABORATORY [facility] RDW 13.6 11.5 - 15.5 % 07/12/2024 5:24 AM EST LABORATORY [facility] PLT 130(L) 140 - 400 K/uL 07/12/2024 5:24 AM EST LABORATORY [facility] MPV 11.4 6.6 - 11.1 fL 07/12/2024 5:24 AM EST LABORATORY [facility] nRBCs 0 <=0 /100 WBCs 07/12/2024 5:24 AM EST LABORATORY [facility] Blood Venous blood specimen / Unknown Venipuncture / Unknown 07/12/2024 4:40 AM EST 07/12/2024 4:58 AM EST Patria Mott PA-C LAB BLOOD ORDERABLES Ashwini l Result Performing Organization Address City/[facility]/ZIP Co de Phone Number LABORATORY [place] [address] [place] [address] * (ABNORMAL) PT INR (07/12/2024 4:40 AM EST) Prothrombin Time 26.9(H) 11.6 - 15.2 seconds 07/12/2024 5:28 AM EST LABORATORY [facility] INR 2.5(H) 0.8 - 1.2 07/12/2024 5:28 AM EST LABORATORY [facility] Blood Venous blood specimen / Unknown Venipuncture / Unknown 07/12/2024 4:40 AM EST 07/12/2024 4:58 AM EST Narrative LABORATORY C - 07/12/2024 5:28 AM EST Warfarin Therapy INR: 2.0-3.0 conventional anticoagulation INR: 2.5-3.5 high intensity anticoagulation Patria Mott PA-C LAB BLOOD ORDERABLES Ashwini l Result Performing Organization Address City/[facility]/ZIP Co de Phone Number LABORATORY [facility] [address] [place] [address] * MAGNESIUM (07/12/2024 4:40 AM EST) Magnesium 2.1 1.5 - 2.6 mg/dL 07/12/2024 5:29 AM EST LABORATORY [facility] Blood Venous blood specimen / Unknown Venipuncture / Unknown 07/12/2024 4:40 AM EST 07/12/2024 4:58 AM EST Patria Mott PA-C LAB BLOOD ORDERABLES Ashwini l Result LABORATORY [facility] [address] [place] [address] * (ABNORMAL) BASIC METABOLIC PANEL (07/12/2024 4:40 AM EST) BUN 32(H) 6 - 20 mg/dL 07/12/2024 5:29 AM EST LABORATORY [facility] CREATININE 1.3(H) 0.6 - 1.2 mg/dL 07/12/2024 5:29 AM EST LABORATORY [facility] EGFR 61 >=60 mL/min 07/12/2024 5:29 AM EST LABORATORY [facility] Comment:eGFR is calculated b ased on the CKD-EPI 2020 equation. SODIUM 142 135 - 146 mmol/L 07/12/2024 5:29 AM EST LABORATORY [facility] POTASSIUM 3.6 3.5 - 5.1 mmol/L 07/12/2024 5:29 AM EST LAB[facility]ATORY [facility] CHLORIDE 107 98 - 107 mmol/L 07/12/2024 5:29 AM EST LAB[facility]ATORY [facility] CO2 26 22 - 32 mmol/L 07/12/2024 5:29 AM EST LAB[facility]ATORY [facility] ANION GAP 9 7 - 15 mmol/L 07/12/2024 5:29 AM EST LAB[facility]ATORY [facility] GLUCOSE 83 70 - 120 mg/dL 07/12/2024 5:29 AM EST LAB[facility]ATORY [facility] CALCIUM 8.2(L) 8.4 - 10.2 mg/dL 07/12/2024 5:29 AM EST LAB[facility]ATORY [facility] Blood Venous blood specimen / Unknown Venipuncture / Unknown 07/12/2024 4:40 AM EST 07/12/2024 4:58 AM EST Patria Fab Gorki PA-C LAB BLOOD ORDERABLES Ashwini l Result LABORATORY [facility] [address] [place] [address] * XR CHEST 1 VIEW (07/11/2024 5:48 AM EST) Anatomical Region Laterality Modality Chest Computed Radiogr aphy 07/11/2024 8:40 AM EST Impressions 07/11/2024 8:38 AM EST IMPRESSION Mild pulmonary vascular congestion. Small left pleural effusion Narrative 07/11/2024 8:38 AM EST EXAM XR CHEST 1 VIEW-07/11/2024 5:48 am HISTORY follow up postop open heart COMPARISON Prior study from yesterday FINDINGS Lines and tubes: Right IJ introducer sheath Lung volumes are normal. There is no focal consolidation. Mild pulmonary vascular congestion Small left pleural effusion Cardiomediastinal silhouette is mildly enlarged. Median sternotomy wires. The osseous structures are intact. Procedure Note Dustin Sumner MD - 07/11/2024 EXAM XR CHEST 1 VIEW-07/11/2024 5:48 am HISTORY follow up postop open heart COMPARISON Prior study from yesterday FINDINGS Lines and tubes: Right IJ introducer sheath Lung volumes are normal. There is no focal consolidation. Mild pulmonaryvascular congestion Small left pleural effusion Cardiomediastinal silhouette is mildly enlarged. Median sternotomywires. The osseous structures are intact. IMPRESSION IMPRESSION Mild pulmonary vascular congestion. Small left pleural effusion us Patria Mott PAMejiaC RADIOLOGY (RAD GENERAL) F inal Result * (ABNORMAL) DIFFERENTIAL, AUTOMATED (07/11/2024 4:10 AM EST) WBC 8.55 4.00 - 10.80 K/uL 07/11/2024 5:24 AM EST LABORATORY [facility] Neutrophils % 76.4(H) 40.0 - 75.0 % 07/11/2024 5:24 AM EST LABORATORY [facility] Lymphocytes % 13.9(L) 18.0 - 42.0 % 07/11/2024 5:24 AM EST LAB[facility]ATORY [facility] Monocytes % 8.8 1.0 - 11.0 % 07/11/2024 5:24 AM EST LAB[facility]ATORY [facility] Eosinophils % 0.2 0.0 - 6.0 % 07/11/2024 5:24 AM EST LAB[facility]ATORY [facility] Basophils % 0.2 0.0 - 2.0 % 07/11/2024 5:24 AM EST LABORATORY [facility] Immature Granulocytes % 0.5 0.0 - 2.0 % 07/11/2024 5:24 AM EST LAB[facility]ATORY [facility] Absolute Neutrophils 6.53 1.80 - 7.70 K/uL 07/11/2024 5:24 AM EST LAB[facility]ATORY [facility] Absolute Lymphocytes 1.19 1.00 - 4.80 K/ul 07/11/2024 5:24 AM EST LAB[facility]ATORY [facility] Absolute Monocytes 0.75 0.00 - 1.10 K/uL 07/11/2024 5:24 AM EST LABORATORY [facility] Absolute Eosinophils 0.02 0.00 - 0.70 K/uL 07/11/2024 5:24 AM EST LAB[facility]ATORY [facility] Absolute Basophils 0.02 0.00 - 0.20 K/uL 07/11/2024 5:24 AM EST LABORATORY [facility] Absolute Immature Granulocytes 0.04 0.00 - 0.20 K/uL 07/11/2024 5:24 AM EST LAB[facility]ATORY [facility] Blood Venous blood specimen / Unknown Venipuncture / Unknown 07/11/2024 4:10 AM EST 07/11/2024 4:40 AM EST us Patria Mott PA-C LAB BLOOD ORDERABLES Ashwini l Result Performing Organization Address City/State/[facility] Co de Phone Number LABORATORY [facility] [address] [place] [address] * (ABNORMAL) CBC (07/11/2024 4:10 AM EST) Pathologist [facility] WBC 8.55 4.00 - 10.80 K/uL 07/11/2024 5:09 AM EST LABORATORY [facility] RBC 3.04 4.50 - 5.25 M/uL 07/11/2024 5:09 AM EST LABORATORY [facility] HGB 9.9(L) 14.0 - 16.8 g/dL 07/11/2024 5:09 AM EST LABORATORY [facility] HCT 29.2(L) 40.0 - 48.4 % 07/11/2024 5:09 AM EST LABORATORY [facility] MCV 96.1 82.0 - 99.5 fL 07/11/2024 5:09 AM EST LABORATORY [facility] MCH 32.6 27.0 - 34.0 pg 07/11/2024 5:09 AM EST LABORATORY [facility] MCHC 33.9 32.0 - 36.0 g/dL 07/11/2024 5:09 AM EST LABORATORY [facility] RDW 13.4 11.5 - 15.5 % 07/11/2024 5:09 AM EST LABORATORY [facility] PLT 96(L) 140 - 400 K/uL 07/11/2024 5:09 AM EST LABORATORY [facility] MPV 11.4 6.6 - 11.1 fL 07/11/2024 5:09 AM EST LABORATORY [facility] [place] nRBCs 0 <=0 /100 WBCs 07/11/2024 5:09 AM EST LAB[facility]ATORY [facility] [place] Blood Venous blood specimen / Unknown Venipuncture / Unknown 07/11/2024 4:10 AM EST 07/11/2024 4:40 AM EST Patria Mott PA-C LAB BLOOD ORDERABLES Ashwini l Result Performing Organization Address City/State/[facility] Co de Phone Number LABORATORY [facility] [place] [address] [place] [address] * (ABNORMAL) PT INR (07/11/2024 4:10 AM EST) [facility] Prothrombin Time 27.0(H) 11.6 - 15.2 seconds 07/11/2024 5:05 AM EST LAB[facility]ATORY [facility] [place] INR 2.5(H) 0.8 - 1.2 07/11/2024 5:05 AM EST LAB[facility]ATORY [facility] [place] Blood Venous blood specimen / Unknown Venipuncture / Unknown 07/11/2024 4:10 AM EST 07/11/2024 4:40 AM EST Narrative LABORATORY [facility] - 07/11/2024 5:05 AM EST Warfarin Therapy INR: 2.0-3.0 conventional anticoagulation INR: 2.5-3.5 high intensity anticoagulation Patria DICKC LAB BLOOD ORDERABLES Ashwini l Result Performing Organization Address City/[facility]/ZIP Co de Phone Number LABORATORY [facility] [place] [address] [place] [address] * MAGNESIUM (07/11/2024 4:10 AM EST) Magnesium 2.2 1.5 - 2.6 mg/dL 07/11/2024 5:10 AM EST LABORATORY C Blood Venous blood specimen / Unknown Venipuncture / Unknown 07/11/2024 4:10 AM EST 07/11/2024 4:40 AM EST Patria Mott PA-C LAB BLOOD ORDERABLES Ashwini l Result Performing Organization Address [facility] Co de Phone Number LAB[facility]ATORY [facility] [place] [address] [place] [address] * (ABNORMAL) BASIC METABOLIC PANEL (07/11/2024 4:10 AM EST) BUN 30(H) 6 - 20 mg/dL 07/11/2024 5:10 AM EST LAB[facility] CREATININE 1.1 0.6 - 1.2 mg/dL 07/11/2024 5:10 AM EST [facility]ORY [facility] [place] EGFR 72 >=60 mL/min 07/11/2024 5:10 AM EST [facility]ORY [facility] [place] Comment:eGFR is calculated b ased on the CKD-EPI 2020 equation. SODIUM 141 135 - 146 mmol/L 07/11/2024 5:10 AM EST LAB[facility] POTASSIUM 4.1 3.5 - 5.1 mmol/L 07/11/2024 5:10 AM EST [facility] CHLORIDE 106 98 - 107 mmol/L 07/11/2024 5:10 AM EST [facility] CO2 24 22 - 32 mmol/L 07/11/2024 5:10 AM EST [facility] ANION GAP 11 7 - 15 mmol/L 07/11/2024 5:10 AM EST [facility] GLUCOSE 102 70 - 120 mg/dL 07/11/2024 5:10 AM EST [facility] CALCIUM 8.5 8.4 - 10.2 mg/dL 07/11/2024 5:10 AM EST LABORATORY [facility] Blood Venous blood specimen / Unknown Venipuncture / Unknown 07/11/2024 4:10 AM EST 07/11/2024 4:40 AM EST us Patria Mott PA-C LAB BLOOD ORDERABLES Ashwini l Result LAB[facility]ATORY [facility] [place] [address] [place] [address] * XR CHEST 1 VIEW (07/10/2024 5:58 AM EST) Anatomical Region Laterality Modality Chest Computed Radiogr aphy 07/10/2024 7:58 AM EST Impressions 07/10/2024 7:56 AM EST IMPRESSION 1. Intervally stable radiographic appearance of the chest. 2. COPD. 3. Suspected mild left basilar airspace disease, probably atelectasis perioperatively. Narrative 07/10/2024 7:56 AM EST EXAM XR CHEST 1 VIEW - 07/10/2024 5:58 am HISTORY follow up postop open heart TECHNIQUE A single frontal radiograph of the chest was obtained. COMPARISON Chest radiograph 07/09/2024. FINDINGS FOREIGN BODIES, SUPPORT TUBES, LINES, DEVICES: Intact sternal wires. 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 Pulmonary artery catheter terminating in the main pulmonary trunk, slightly retracted from yesterday. Mediastinal/left pleural drains in place. Faint epicardial pacer wires. LUNGS, PLEURA: Hyperinflated and coarsened lungs correlating with prior findings of emphysema/COPD. Slight obscuration of the left hemidiaphragm typical of passive atelectasis, with possible underlying mucous plugging in the context of COPD. No pneumothorax or sizable effusion. HEART, MEDIASTINUM: Stable cardiomediastinal silhouette. OTHER: None. Procedure Note Eder Abraham MD - 07/10/2024 EXAM XR CHEST 1 VIEW - 07/10/2024 5:58 am HISTORY follow up postop open heart TECHNIQUE A single frontal radiograph of the chest was obtained. COMPARISON Chest radiograph 07/09/2024. 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 Pulmonaryartery catheter terminating in the main pulmonary trunk, slightlyretracted from yesterday. Mediastinal/left pleural drains in place.Faint epicardial pacer wires. LUNGS, PLEURA: Hyperinflated and coarsened lungs correlating with priorfindings of emphysema/COPD. Slight obscuration of the left hemidiaphragmtypical of passive atelectasis, with possible underlying mucous pluggingin the context of COPD. No pneumothorax or sizable effusion. HEART, MEDIASTINUM: Stable cardiomediastinal silhouette. OTHER: None. IMPRESSION IMPRESSION 1. Intervally stable radiographic appearance of the chest. 2. COPD. 3. Suspected mild left basilar airspace disease, probably atelectasisperioperatively. Patria Mott PA-C RADIOLOGY ([facility]) F inal Result * DIFFERENTIAL, TECHNOLOGIST REVIEW (07/10/2024 3:48 AM EST) Blood Arterial blood specimen / Unknown Arterial Puncture / Unknown 07/10/2024 3:48 AM EST 07/10/2024 3:54 AM EST Patria Mott PA-C LAB BLOOD ORDERABLES Ashwini l Result [facility] [address] [place] [address] * (ABNORMAL) DIFFERENTIAL, AUTOMATED (07/10/2024 3:48 AM EST) WBC 9.22 4.00 - 10.80 K/uL 07/10/2024 5:09 AM EST [facility] Neutrophils % 77.3(H) 40.0 - 75.0 % 07/10/2024 5:09 AM EST [facility] Lymphocytes % 13.2(L) 18.0 - 42.0 % 07/10/2024 5:09 AM EST [facility] Monocytes % 8.9 1.0 - 11.0 % 07/10/2024 5:09 AM EST [facility] Eosinophils % 0.1 0.0 - 6.0 % 07/10/2024 5:09 AM EST [facility] Basophils % 0.1 0.0 - 2.0 % 07/10/2024 5:09 AM EST [facility] Immature Granulocytes % 0.4 0.0 - 2.0 % 07/10/2024 5:09 AM EST [facility] Absolute Neutrophils 7.12 1.80 - 7.70 K/uL 07/10/2024 5:09 AM EST [facility] Absolute Lymphocytes 1.22 1.00 - 4.80 K/ul 07/10/2024 5:09 AM EST [facility] Absolute Monocytes 0.82 0.00 - 1.10 K/uL 07/10/2024 5:09 AM EST [facility] Absolute Eosinophils 0.01 0.00 - 0.70 K/uL 07/10/2024 5:09 AM EST [facility] Absolute Basophils 0.01 0.00 - 0.20 K/uL 07/10/2024 5:09 AM EST [facility] Absolute Immature Granulocytes 0.04 0.00 - 0.20 K/uL 07/10/2024 5:09 AM EST [facility] Blood Arterial blood specimen / Unknown Arterial Puncture / Unknown 07/10/2024 3:48 AM EST 07/10/2024 3:54 AM EST us Patria Mott PA-C LAB BLOOD ORDERABLES Ashwini l Result [facility] [address] [place] [address] * (ABNORMAL) CBC (07/10/2024 3:48 AM EST) WBC 9.22 4.00 - 10.80 K/uL 07/10/2024 5:09 AM EST [facility] RBC 2.98 4.50 - 5.25 M/uL 07/10/2024 5:09 AM EST [facility] HGB 9.4(L) 14.0 - 16.8 g/dL 07/10/2024 5:09 AM EST [facility] HCT 28.5(L) 40.0 - 48.4 % 07/10/2024 5:09 AM EST [facility] MCV 95.6 82.0 - 99.5 fL 07/10/2024 5:09 AM EST [facility] MCH 31.5 27.0 - 34.0 pg 07/10/2024 5:09 AM EST LABORATORY [facility] MCHC 33.0 32.0 - 36.0 g/dL 07/10/2024 5:09 AM EST LABORATORY [facility] RDW 13.4 11.5 - 15.5 % 07/10/2024 5:09 AM EST LABORATORY [facility] PLT 89(L) 140 - 400 K/uL 07/10/2024 5:09 AM EST LABORATORY [facility] MPV 11.3 6.6 - 11.1 fL 07/10/2024 5:09 AM EST LABORATORY [facility] nRBCs 0 <=0 /100 WBCs 07/10/2024 5:09 AM EST LABORATORY [facility] Blood Arterial blood specimen / Unknown Arterial Puncture / Unknown 07/10/2024 3:48 AM EST 07/10/2024 3:54 AM EST Patria Mott PA-C LAB BLOOD ORDERABLES Ashwini l Result Performing Organization Address City/[facility] de Phone Number LABORATORY [facility] [address] [place] [address] * (ABNORMAL) PT INR (07/10/2024 3:48 AM EST) [facility] Prothrombin Time 16.8(H) 11.6 - 15.2 seconds 07/10/2024 4:13 AM EST LABORATORY [facility] INR 1.4(H) 0.8 - 1.2 07/10/2024 4:13 AM EST LABORATORY [facility] Blood Arterial blood specimen / Unknown Arterial Puncture / Unknown 07/10/2024 3:48 AM EST 07/10/2024 3:53 AM EST Narrative LABORATORY C - 07/10/2024 4:13 AM EST Warfarin Therapy INR: 2.0-3.0 conventional anticoagulation INR: 2.5-3.5 high intensity anticoagulation Patria Mott PA-C LAB BLOOD ORDERABLES Ashwini l Result Performing Organization Address City/[facility]/ZIP Co de Phone Number LABORATORY [facility] [address] [place] [address] * MAGNESIUM (07/10/2024 3:48 AM EST) Magnesium 2.5 1.5 - 2.6 mg/dL 07/10/2024 4:20 AM EST [facility] Blood Arterial blood specimen / Unknown Arterial Puncture / Unknown 07/10/2024 3:48 AM EST 07/10/2024 3:54 AM EST Patria Mott PA-C LAB BLOOD ORDERABLES Ashwini l Result LABORATORY [facility] [address] [place] [address] * (ABNORMAL) BASIC METABOLIC PANEL (07/10/2024 3:48 AM EST) BUN 25(H) 6 - 20 mg/dL 07/10/2024 4:20 AM EST [facility] CREATININE 1.5(H) 0.6 - 1.2 mg/dL 07/10/2024 4:20 AM EST [facility] EGFR 50(L) >=60 mL/min 07/10/2024 4:20 AM EST [facility] Comment:eGFR is calculated b ased on the CKD-EPI 2020 equation. SODIUM 138 135 - 146 mmol/L 07/10/2024 4:20 AM EST [facility] POTASSIUM 4.2 3.5 - 5.1 mmol/L 07/10/2024 4:20 AM EST [facility] CHLORIDE 104 98 - 107 mmol/L 07/10/2024 4:20 AM EST [facility] CO2 23 22 - 32 mmol/L 07/10/2024 4:20 AM EST [facility] ANION GAP 11 7 - 15 mmol/L 07/10/2024 4:20 AM EST [facility] GLUCOSE 147(H) 70 - 120 mg/dL 07/10/2024 4:20 AM EST [facility] CALCIUM 8.3(L) 8.4 - 10.2 mg/dL 07/10/2024 4:20 AM EST [facility] Blood Arterial blood specimen / Unknown Arterial Puncture / Unknown 07/10/2024 3:48 AM EST 07/10/2024 3:54 AM EST Patria Mott PA-C LAB BLOOD ORDERABLES Ashwini l Result LABORATORY [facility] [address] [place] [address] * POTASSIUM (07/09/2024 10:53 PM EST) POTASSIUM 4.0 3.5 - 5.1 mmol/L 07/09/2024 11:20 PM EST [facility] Blood Arterial blood specimen / Unknown Arterial Puncture / Unknown 07/09/2024 10:53 PM EST 07/09/2024 10:59 PM EST Rita Donis PA-C LAB BLOOD ORDERABL ES Final Result Performing Organization Address [facility] Co de Phone Number LABORATORY [facility] [address] [place] [address] * (ABNORMAL) BASIC METABOLIC PANEL (07/09/2024 12:26 PM EST) BUN 20 6 - 20 mg/dL 07/09/2024 1:03 PM EST [facility] CREATININE 1.6(H) 0.6 - 1.2 mg/dL 07/09/2024 1:03 PM EST [facility] EGFR 47(L) >=60 mL/min 07/09/2024 1:03 PM EST [facility] Comment:eGFR is calculated b ased on the CKD-EPI 2020 equation. SODIUM 141 135 - 146 mmol/L 07/09/2024 1:03 PM EST [facility] POTASSIUM 3.8 3.5 - 5.1 mmol/L 07/09/2024 1:03 PM EST [facility] CHLORIDE 105 98 - 107 mmol/L 07/09/2024 1:03 PM EST [facility] CO2 23 22 - 32 mmol/L 07/09/2024 1:03 PM EST [facility] ANION GAP 13 7 - 15 mmol/L 07/09/2024 1:03 PM EST [facility] GLUCOSE 167(H) 70 - 120 mg/dL 07/09/2024 1:03 PM EST [facility] CALCIUM 8.0(L) 8.4 - 10.2 mg/dL 07/09/2024 1:03 PM EST LABORATORY [facility] Blood Venous blood specimen / Unknown Venipuncture / Unknown 07/09/2024 12:26 PM EST 07/09/2024 12:29 PM EST Mayra Marinelli PA-C LAB BLOOD ORDERABLES Final Result Performing Organization Address City/[facility]/ZIP Co de Phone Number LABORATORY [facility] [address] [place] [address] * EKG (07/09/2024 8:16 AM EST) 07/09/2024 8:16 AM EST Narrative Procedure Note Raghavendra Prado MD - 07/09/2024 8:16 AM EST REASON FOR STUDY: Heart palpitations CONCLUSIONS: Atrial fibrillation Nonspecific ST abnormality When compared with ECG of 09-Jul-2024 06:25, Atrial fibrillation has replaced Sinus rhythm Questionable change in initial forces of Septal leads Nonspecific T wave abnormality, worse in Lateral leads Ventricular Rate: 92 QRS Duration: 90 QT/QTc: 402/497 ms P-R-T Marcellus: 0 : 2 : 91 degrees Gil CROCKER EKG Final Result Performing Organization Address [facility] Co de Phone Number [facility] * EKG (07/09/2024 6:25 AM EST) 07/09/2024 6:25 AM EST Narrative Procedure Note Raghavendra Prado MD - 07/09/2024 6:25 AM EST REASON FOR STUDY: post op d1 CONCLUSIONS: Normal sinus rhythm Inferior infarct , age undetermined Anteroseptal infarct (cited on or before Nonspecific ST and T wave abnormality When compared with ECG of 08-Jul-2024 12:19, QRS duration has decreased Questionable change in initial forces of Anterior-septal leads ST elevation now present in Anterior leads T wave inversion no longer evident in Lateral leads QT has shortened Ventricular Rate: 74 Atrial Rate: 74 SD Interval: 164 QRS Duration: 90 QT/QTc: 426/472 ms P-R-T Marcellus: 69 : 5 : 90 degrees us Patria Mott PA-C EKG Final Res ult [facility] * XR CHEST 1 VIEW (07/09/2024 5:52 AM EST) Anatomical Region Laterality Modality Chest Computed Radiogr aphy 07/09/2024 7:40 AM EST Impressions 07/09/2024 7:37 AM EST IMPRESSION Postop chest, as above. Narrative 07/09/2024 7:37 AM EST EXAM XR CHEST 1 VIEW - 07/09/2024 5:52 am HISTORY follow up postop open heart COMPARISON Chest x-ray dated 07/08/2024 TECHNIQUE Portable semi upright AP view of the chest was obtained. FINDINGS Catheters: A right IJ [place] Belle-Shamika catheter has been retracted, with tip now likely in the proximal right main pulmonary artery. Tubes: Left chest and mediastinal drainage tubes remain in place. Foreign bodies: Sternotomy wires and mediastinal clips are again noted. There is mild left basilar atelectasis. There is no appreciable pleural effusion or pneumothorax. The cardiomediastinal silhouette is stable in appearance. The pulmonary vasculature is within normal limits. Procedure Note Ted Osullivan MD - 07/09/2024 EXAM XR CHEST 1 VIEW - 07/09/2024 5:52 am HISTORY follow up postop open heart COMPARISON Chest x-ray dated 07/08/2024 TECHNIQUE Portable semi upright AP view of the chest was obtained. FINDINGS Catheters: A right IJ [place] Belle-Shamika catheter has been retracted, with tip nowlikely in the proximal right main pulmonary artery. Tubes: Left chest and mediastinal drainage tubes remain in place. Foreign bodies: Sternotomy wires and mediastinal clips are again noted. There is mild left basilar atelectasis. There is no appreciable pleuraleffusion or pneumothorax. The cardiomediastinal silhouette is stable inappearance. The pulmonary vasculature is within normal limits. IMPRESSION IMPRESSION Postop chest, as above. Patria Mott PA-C RADIOLOGY ([facility] GENER[facility]) F inal Result * LACTATE (07/09/2024 5:51 AM EST) Pathologist [facility] Lactate 0.9 0.4 - 2.0 mmol/L 07/09/2024 6:51 AM EST LABORATORY [facility] Blood Venous blood specimen / Unknown Venipuncture / Unknown 07/09/2024 5:51 AM EST 07/09/2024 6:19 AM EST us Mayra Marinelli PA-C LAB BLOOD ORDERABLES Final Result [facility] [address] [place] [address] * GLUCOSE METER, POINT OF CARE (07/09/2024 4:01 AM EST) [facility] GLUCOSE - POCT 102 70 - 120 mg/dL 07/09/2024 7:22 AM EST [facility] Blood Whole blood specimen / Unknown 07/09/2024 4:01 AM EST 07/09/2024 7:22 AM EST us Jayden Galvan MD LAB POINT O F CARE TEST DOCKED DEVICE UNSOLICITED RESULTS Final Result [facility] [address] [place] [address] * (ABNORMAL) BLOOD GAS, ARTERIAL (07/09/2024 3:53 AM EST) Temperature 37.0 C 07/09/2024 4:17 AM EST [facility] pH, Arterial 7.386 7.350 - 7.450 units 07/09/2024 4:17 AM EST [facility] pCO2, Arterial 45.4(H) 35.0 - 45.0 mmHg 07/09/2024 4:17 AM EST [facility] pO2, Arterial 135.0(H) 75.0 - 100.0 mmHg 07/09/2024 4:17 AM EST LAB[facility] Base Excess, Arterial 1.9 -2.0 - 2.0 mmol/L 07/09/2024 4:17 AM EST [facility] HGB 9.4(L) 14.0 - 16.8 g/dL 07/09/2024 4:17 AM EST [facility] Oxyhemoglobin, Arterial 97.1 94.0 - 99.0 % total Hgb 07/09/2024 4:17 AM EST [facility] Carboxyhemoglob in, Whole Blood 1.6(H) <=1.5 % total Hgb 07/09/2024 4:17 AM EST LAB[facility] Comment:Smokers: 0-9.0 % Methemoglobin, Whole Blood 0.8 <=1.5 % total Hgb 07/09/2024 4:17 AM EST [facility] Reduced Hemoglobin, Arterial 0.5 0.0 - 5.0 % total Hgb 07/09/2024 4:17 AM EST [facility] O2 Content, Arterial 13.1(L) 15.0 - 24.0 %vol 07/09/2024 4:17 AM EST [facility] FiO2 Not Provided % 07/09/2024 4:17 AM EST [facility] O2 Flow, Arterial Not Provided L/min 07/09/2024 4:17 AM EST [facility] Bicarbonate, Whole Blood 26.6 23.0 - 31.0 mmol/L 07/09/2024 4:17 AM EST [facility] Blood Arterial blood specimen / Unknown Arterial Puncture / Unknown 07/09/2024 3:53 AM EST 07/09/2024 4:14 AM EST Patria Mott PA-C LAB BLOOD ORDERABLES Ashwini l Result Performing Organization Address City/State/[facility] Co de Phone Number LABORATORY [facility] [address] [place] [address] * O2 SATURATION, VENOUS (07/09/2024 3:53 AM EST) O2, Saturation, Venous 61.4 40.0 - 85.0 % 07/09/2024 4:18 AM EST [facility] Blood Venous blood specimen / Unknown Venipuncture / Unknown 07/09/2024 3:53 AM EST 07/09/2024 4:14 AM EST us Patria Mott PA-C LAB BLOOD ORDERABLES Ashwini norwood Result LAB[facility]ORY [facility] [address] [place] [address] * (ABNORMAL) DIFFERENTIAL, AUTOMATED (07/09/2024 3:53 AM EST) WBC 8.90 4.00 - 10.80 K/uL 07/09/2024 4:41 AM EST LAB[facility] Neutrophils % 81.6(H) 40.0 - 75.0 % 07/09/2024 4:41 AM EST [facility] Lymphocytes % 7.9(L) 18.0 - 42.0 % 07/09/2024 4:41 AM EST [facility] Monocytes % 10.0 1.0 - 11.0 % 07/09/2024 4:41 AM EST [facility] Eosinophils % 0.0 0.0 - 6.0 % 07/09/2024 4:41 AM EST [facility] Basophils % 0.2 0.0 - 2.0 % 07/09/2024 4:41 AM EST [facility] Immature Granulocytes % 0.3 0.0 - 2.0 % 07/09/2024 4:41 AM EST [facility] Absolute Neutrophils 7.26 1.80 - 7.70 K/uL 07/09/2024 4:41 AM EST [facility] Absolute Lymphocytes 0.70(L) 1.00 - 4.80 K/ul 07/09/2024 4:41 AM EST [facility] Absolute Monocytes 0.89 0.00 - 1.10 K/uL 07/09/2024 4:41 AM EST [facility] Absolute Eosinophils 0.00 0.00 - 0.70 K/uL 07/09/2024 4:41 AM EST [facility] Absolute Basophils 0.02 0.00 - 0.20 K/uL 07/09/2024 4:41 AM EST [facility] Absolute Immature Granulocytes 0.03 0.00 - 0.20 K/uL 07/09/2024 4:41 AM EST [facility] Blood Venous blood specimen / Unknown Venipuncture / Unknown 07/09/2024 3:53 AM EST 07/09/2024 4:15 AM EST us Patria Mott PA-C LAB BLOOD ORDERABLES Ashwini l Result LAB[facility]ORY [facility] [address] [place] [address] * (ABNORMAL) CBC (07/09/2024 3:53 AM EST) WBC 8.90 4.00 - 10.80 K/uL 07/09/2024 4:41 AM EST [facility] RBC 2.79 4.50 - 5.25 M/uL 07/09/2024 4:41 AM EST [facility] HGB 9.1(L) 14.0 - 16.8 g/dL 07/09/2024 4:41 AM EST [facility] HCT 26.8(L) 40.0 - 48.4 % 07/09/2024 4:41 AM EST [facility] MCV 96.1 82.0 - 99.5 fL 07/09/2024 4:41 AM EST [facility] MCH 32.6 27.0 - 34.0 pg 07/09/2024 4:41 AM EST [facility] MCHC 34.0 32.0 - 36.0 g/dL 07/09/2024 4:41 AM EST [facility] RDW 13.3 11.5 - 15.5 % 07/09/2024 4:41 AM EST [facility] PLT 120(L) 140 - 400 K/uL 07/09/2024 4:41 AM EST [facility] MPV 11.5 6.6 - 11.1 fL 07/09/2024 4:41 AM EST [facility] nRBCs 0 <=0 /100 WBCs 07/09/2024 4:41 AM EST [facility] Blood Venous blood specimen / Unknown Venipuncture / Unknown 07/09/2024 3:53 AM EST 07/09/2024 4:15 AM EST Patria Mott PA-C LAB BLOOD ORDERABLES Ashwini l Result LAB[facility]ATORY [facility] [address] [place] [address] * PT INR (07/09/2024 3:53 AM EST) Prothrombin Time 15.0 11.6 - 15.2 seconds 07/09/2024 4:48 AM EST LABORATORY [facility] INR 1.2 0.8 - 1.2 07/09/2024 4:48 AM EST LABORATORY [facility] Blood Venous blood specimen / Unknown Venipuncture / Unknown 07/09/2024 3:53 AM EST 07/09/2024 4:15 AM EST Narrative LAB[facility]ATORY [facility] - 07/09/2024 4:48 AM EST Warfarin Therapy INR: 2.0-3.0 conventional anticoagulation INR: 2.5-3.5 high intensity anticoagulation Patria Mott PA-C LAB BLOOD ORDERABLES Ashwini l Result Performing Organization Address [facility]/ZIP Co de Phone Number LABORATORY [facility] [address] [place] [address] * (ABNORMAL) MAGNESIUM (07/09/2024 3:53 AM EST) Pathologist [facility] Magnesium 2.8(H) 1.5 - 2.6 mg/dL 07/09/2024 4:56 AM EST LABORATORY [facility] Blood Venous blood specimen / Unknown Venipuncture / Unknown 07/09/2024 3:53 AM EST 07/09/2024 4:15 AM EST Patria Mott PA-C LAB BLOOD ORDERABLES Ashwini l Result LABORATORY [facility] [address] [place] [address] * (ABNORMAL) BASIC METABOLIC PANEL (07/09/2024 3:53 AM EST) BUN 18 6 - 20 mg/dL 07/09/2024 4:56 AM EST LABORATORY [facility] CREATININE 1.5(H) 0.6 - 1.2 mg/dL 07/09/2024 4:56 AM EST LABORATORY [facility] EGFR 50(L) >=60 mL/min 07/09/2024 4:56 AM EST LAB[facility]ORY [facility] Comment:eGFR is calculated b ased on the CKD-EPI 2020 equation. SODIUM 145 135 - 146 mmol/L 07/09/2024 4:56 AM EST [facility] POTASSIUM 4.0 3.5 - 5.1 mmol/L 07/09/2024 4:56 AM EST [facility] CHLORIDE 110(H) 98 - 107 mmol/L 07/09/2024 4:56 AM EST [facility] CO2 25 22 - 32 mmol/L 07/09/2024 4:56 AM EST [facility] ANION GAP 10 7 - 15 mmol/L 07/09/2024 4:56 AM EST [facility] GLUCOSE 104 70 - 120 mg/dL 07/09/2024 4:56 AM EST [facility] CALCIUM 8.3(L) 8.4 - 10.2 mg/dL 07/09/2024 4:56 AM EST [facility] Blood Venous blood specimen / Unknown Venipuncture / Unknown 07/09/2024 3:53 AM EST 07/09/2024 4:15 AM EST us Patria Mott PA-C LAB BLOOD ORDERABLES Ashwini l Result LABORATORY [facility] [address] [place] [address] * GLUCOSE METER, POINT OF CARE (07/09/2024 2:00 AM EST) [facility] GLUCOSE - POCT 109 70 - 120 mg/dL 07/09/2024 3:13 AM EST [employer] Blood Whole blood specimen / Unknown 07/09/2024 2:00 AM EST 07/09/2024 3:13 AM EST us Jayden Galvan MD LAB POINT O F CARE TEST DOCKED DEVICE UNSOLICITED RESULTS Final Result [facility] [address] [place] [address] * (ABNORMAL) BLOOD GAS, ARTERIAL (07/09/2024 12:03 AM EST) Temperature 37.0 C 07/09/2024 12:13 AM EST LAB[facility]ORY [facility] pH, Arterial 7.440 7.350 - 7.450 units 07/09/2024 12:13 AM EST LAB[facility] pCO2, Arterial 37.9 35.0 - 45.0 mmHg 07/09/2024 12:13 AM EST LAB[facility] pO2, Arterial 153.0(H) 75.0 - 100.0 mmHg 07/09/2024 12:13 AM EST LAB[facility]ATORY [facility] Base Excess, Arterial 1.6 -2.0 - 2.0 mmol/L 07/09/2024 12:13 AM EST LAB[facility] HGB 9.6(L) 14.0 - 16.8 g/dL 07/09/2024 12:13 AM EST [facility] Oxyhemoglobin, Arterial 97.3 94.0 - 99.0 % total Hgb 07/09/2024 12:13 AM EST LAB[facility] Carboxyhemoglob in, Whole Blood 1.6(H) <=1.5 % total Hgb 07/09/2024 12:13 AM EST LAB[facility]ATORY [facility] Comment:Smokers: 0-9.0 % Methemoglobin, Whole Blood 0.9 <=1.5 % total Hgb 07/09/2024 12:13 AM EST [facility] Reduced Hemoglobin, Arterial 0.2 0.0 - 5.0 % total Hgb 07/09/2024 12:13 AM EST [facility] O2 Content, Arterial 13.4(L) 15.0 - 24.0 %vol 07/09/2024 12:13 AM EST LAB[facility] FiO2 Not Provided % 07/09/2024 12:13 AM EST [facility] O2 Flow, Arterial Not Provided L/min 07/09/2024 12:13 AM EST [facility] Bicarbonate, Whole Blood 25.3 23.0 - 31.0 mmol/L 07/09/2024 12:13 AM EST [facility] Blood Arterial blood specimen / Unknown Arterial Puncture / Unknown 07/09/2024 12:03 AM EST 07/09/2024 12:08 AM EST Patria Mott PA-C LAB BLOOD ORDERABLES Ashwini l Result LABORATORY [facility] [address], [place] [id number] * GLUCOSE METER, POINT OF CARE (07/08/2024 11:38 PM EST) [facility] GLUCOSE - POCT 97 70 - 120 mg/dL 07/09/2024 3:13 AM EST [facility] Blood Whole blood specimen / Unknown 07/08/2024 11:38 PM EST 07/09/2024 3:13 AM EST Jayden Galvan MD LAB POINT O F CARE TEST DOCKED DEVICE UNSOLICITED RESULTS Final Result Performing Organization Address [facility] Co de Phone Number [facility] [address] [place] [address] * (ABNORMAL) BLOOD GAS, ARTERIAL (07/08/2024 11:32 PM EST) [facility] Temperature 37.0 C 07/08/2024 11:45 PM EST LAB[facility] pH, Arterial 7.395 7.350 - 7.450 units 07/08/2024 11:45 PM EST LAB[facility] pCO2, Arterial 42.6 35.0 - 45.0 mmHg 07/08/2024 11:45 PM EST [facility] pO2, Arterial 161.0(H) 75.0 - 100.0 mmHg 07/08/2024 11:45 PM EST [facility] Base Excess, Arterial 1.1 -2.0 - 2.0 mmol/L 07/08/2024 11:45 PM EST [facility] HGB 9.4(L) 14.0 - 16.8 g/dL 07/08/2024 11:45 PM EST [facility] Oxyhemoglobin, Arterial 97.3 94.0 - 99.0 % total Hgb 07/08/2024 11:45 PM EST [facility] Carboxyhemoglob in, Whole Blood 1.5 <=1.5 % total Hgb 07/08/2024 11:45 PM EST [facility] Comment:Smokers: 0-9.0 % Methemoglobin, Whole Blood 1.0 <=1.5 % total Hgb 07/08/2024 11:45 PM EST [facility] Reduced Hemoglobin, Arterial 0.2 0.0 - 5.0 % total Hgb 07/08/2024 11:45 PM EST [facility] O2 Content, Arterial 13.2(L) 15.0 - 24.0 %vol 07/08/2024 11:45 PM EST [facility] FiO2 Not Provided % 07/08/2024 11:45 PM EST [facility] O2 Flow, Arterial Not Provided L/min 07/08/2024 11:45 PM EST [facility] Bicarbonate, Whole Blood 25.5 23.0 - 31.0 mmol/L 07/08/2024 11:45 PM EST [facility] Blood Arterial blood specimen / Unknown Arterial Puncture / Unknown 07/08/2024 11:32 PM EST 07/08/2024 11:41 PM EST us Patria Mott PA-C LAB BLOOD ORDERABLES Ashwini l Result [facility] [address] [place] [address] * GLUCOSE METER, POINT OF CARE (07/08/2024 9:50 PM EST) [facility] GLUCOSE - POCT 111 70 - 120 mg/dL 07/09/2024 3:13 AM EST [facility] Blood Whole blood specimen / Unknown 07/08/2024 9:50 PM EST 07/09/2024 3:13 AM EST Jayden Galvan MD LAB POINT O F CARE TEST DOCKED DEVICE UNSOLICITED RESULTS Final Result [facility] [address] [place] [address] * (ABNORMAL) BLOOD GAS, ARTERIAL (07/08/2024 9:43 PM EST) Temperature 37.0 C 07/08/2024 9:59 PM EST [facility] pH, Arterial 7.407 7.350 - 7.450 units 07/08/2024 9:59 PM EST [facility] pCO2, Arterial 40.8 35.0 - 45.0 mmHg 07/08/2024 9:59 PM EST [facility] pO2, Arterial 157.0(H) 75.0 - 100.0 mmHg 07/08/2024 9:59 PM EST [facility] Base Excess, Arterial 0.9 -2.0 - 2.0 mmol/L 07/08/2024 9:59 PM EST [facility] HGB 9.2(L) 14.0 - 16.8 g/dL 07/08/2024 9:59 PM EST [facility] Oxyhemoglobin, Arterial 98.2 94.0 - 99.0 % total Hgb 07/08/2024 9:59 PM EST [facility] Carboxyhemoglob in, Whole Blood 1.2 <=1.5 % total Hgb 07/08/2024 9:59 PM EST [facility] Comment:Smokers: 0-9.0 % Methemoglobin, Whole Blood 0.6 <=1.5 % total Hgb 07/08/2024 9:59 PM EST [facility] Reduced Hemoglobin, Arterial 0.0 0.0 - 5.0 % total Hgb 07/08/2024 9:59 PM EST [facility] O2 Content, Arterial 13.0(L) 15.0 - 24.0 %vol 07/08/2024 9:59 PM EST [facility] FiO2 Not Provided % 07/08/2024 9:59 PM EST [facility] O2 Flow, Arterial Not Provided L/min 07/08/2024 9:59 PM EST [facility] Bicarbonate, Whole Blood 25.1 23.0 - 31.0 mmol/L 07/08/2024 9:59 PM EST [facility] Blood Arterial blood specimen / Unknown Arterial Puncture / Unknown 07/08/2024 9:43 PM EST 07/08/2024 9:56 PM EST us Patria Mott PA-C LAB BLOOD ORDERABLES Ashwini norwood Result [facility] [address] [place] [address] * (ABNORMAL) GLUCOSE METER, POINT OF CARE (07/08/2024 8:00 PM EST) Pathologist [facility] GLUCOSE - POCT 125(H) 70 - 120 mg/dL 07/09/2024 3:12 AM EST [facility] [employer] Blood Whole blood specimen / Unknown 07/08/2024 8:00 PM EST 07/09/2024 3:12 AM EST Jayden Galvan MD LAB POINT O F CARE TEST DOCKED DEVICE UNSOLICITED RESULTS Final Result [address] [place] [address] * GLUCOSE METER, POINT OF CARE (07/08/2024 5:54 PM EST) [facility] GLUCOSE - POCT 105 70 - 120 mg/dL 07/09/2024 3:12 AM EST [facility] Blood Whole blood specimen / Unknown 07/08/2024 5:54 PM EST 07/09/2024 3:12 AM EST Jayden Galvan MD LAB POINT O F CARE TEST DOCKED DEVICE UNSOLICITED RESULTS Final Result Performing Organization Address City/[facility] Co de Phone Number [address] [place] [address] * (ABNORMAL) WHOLE BLOOD PROFILE, ARTERIAL (07/08/2024 5:49 PM EST) Pathologist [facility] Temperature 37.0 C 07/08/2024 5:58 PM EST [facility] pH, Arterial 7.370 7.350 - 7.450 units 07/08/2024 5:58 PM EST [facility] pCO2, Arterial 43.4 35.0 - 45.0 mmHg 07/08/2024 5:58 PM EST [facility] pO2, Arterial 163.0(H) 75.0 - 100.0 mmHg 07/08/2024 5:58 PM EST [facility] Base Excess, Arterial -0.3 -2.0 - 2.0 mmol/L 07/08/2024 5:58 PM EST [facility] HGB 9.8(L) 14.0 - 16.8 g/dL 07/08/2024 5:58 PM EST [facility] Oxyhemoglobin, Arterial 96.1 94.0 - 99.0 % total Hgb 07/08/2024 5:58 PM EST [facility] Carboxyhemoglob in, Whole Blood 1.4 <=1.5 % total Hgb 07/08/2024 5:58 PM EST [facility] Comment:Smokers: 0-9.0 % Methemoglobin, Whole Blood 1.8(H) <=1.5 % total Hgb 07/08/2024 5:58 PM EST [facility] Reduced Hemoglobin, Arterial 0.7 0.0 - 5.0 % total Hgb 07/08/2024 5:58 PM EST [facility] O2 Content, Arterial 13.6(L) 15.0 - 24.0 %vol 07/08/2024 5:58 PM EST [facility] Potassium 4.1 3.5 - 5.1 mmol/L 07/08/2024 5:58 PM EST [facility] Sodium 142 135 - 146 mmol/L 07/08/2024 5:58 PM EST [facility] Chloride 111(H) 98 - 107 mmol/L 07/08/2024 5:58 PM EST [facility] Calcium, Ionized 1.14 1.13 - 1.32 mmol/L 07/08/2024 5:58 PM EST [facility] Anion Gap 6.8(L) 7.0 - 15.0 mmol/L 07/08/2024 5:58 PM EST [facility] Glucose 107 70 - 120 mg/dL 07/08/2024 5:58 PM EST [facility] FiO2 50 % 07/08/2024 5:58 PM EST [facility] O2 Flow, Arterial Not Provided L/min 07/08/2024 5:58 PM EST [facility] Bicarbonate, Whole Blood 24.5 23.0 - 31.0 mmol/L 07/08/2024 5:58 PM EST [facility] Blood Arterial blood specimen / Unknown Arterial Puncture / Unknown 07/08/2024 5:49 PM EST 07/08/2024 5:53 PM EST Patria Mott PA-C LAB BLOOD ORDERABLES Ashwini l Result Performing Organization Address City/[facility]/ZIP Co de Phone Number LABORATORY [facility] [address] [place] [address] * (ABNORMAL) MAGNESIUM (07/08/2024 5:49 PM EST) [facility] Magnesium 2.9(H) 1.5 - 2.6 mg/dL 07/08/2024 6:22 PM EST [facility] Blood Venous blood specimen / Unknown Venipuncture / Unknown 07/08/2024 5:49 PM EST 07/08/2024 5:53 PM EST Patria Mott PA-C LAB BLOOD ORDERABLES Ashwini l Result Performing Organization Address [facility] Co de Phone Number LABORATORY [facility] [address] [place] [address] * (ABNORMAL) CBC (07/08/2024 5:49 PM EST) [facility] WBC 8.86 4.00 - 10.80 K/uL 07/08/2024 6:24 PM EST [facility] RBC 3.02 4.50 - 5.25 M/uL 07/08/2024 6:24 PM EST [facility] HGB 9.5(L) 14.0 - 16.8 g/dL 07/08/2024 6:24 PM EST [facility] HCT 28.6(L) 40.0 - 48.4 % 07/08/2024 6:24 PM EST [facility] MCV 94.7 82.0 - 99.5 fL 07/08/2024 6:24 PM EST [facility] MCH 31.5 27.0 - 34.0 pg 07/08/2024 6:24 PM EST [facility] MCHC 33.2 32.0 - 36.0 g/dL 07/08/2024 6:24 PM EST [facility] RDW 13.2 11.5 - 15.5 % 07/08/2024 6:24 PM EST [facility] PLT 116(L) 140 - 400 K/uL 07/08/2024 6:24 PM EST [facility] MPV 10.6 6.6 - 11.1 fL 07/08/2024 6:24 PM EST [facility] nRBCs 0 <=0 /100 WBCs 07/08/2024 6:24 PM EST [facility] Blood Venous blood specimen / Unknown Venipuncture / Unknown 07/08/2024 5:49 PM EST 07/08/2024 5:53 PM EST Patria Mott PA-C LAB BLOOD ORDERABLES Ashwini norwood Result [facility] [address], [place] [id number] * (ABNORMAL) BASIC METABOLIC PANEL (07/08/2024 5:49 PM EST) BUN 13 6 - 20 mg/dL 07/08/2024 6:22 PM EST [facility] CREATININE 1.2 0.6 - 1.2 mg/dL 07/08/2024 6:22 PM EST [facility] EGFR 67 >=60 mL/min 07/08/2024 6:22 PM EST [facility] Comment:eGFR is calculated b ased on the CKD-EPI 2020 equation. SODIUM 145 135 - 146 mmol/L 07/08/2024 6:22 PM EST [facility] POTASSIUM 4.3 3.5 - 5.1 mmol/L 07/08/2024 6:22 PM EST [facility] CHLORIDE 109(H) 98 - 107 mmol/L 07/08/2024 6:22 PM EST [facility] CO2 23 22 - 32 mmol/L 07/08/2024 6:22 PM EST [facility] ANION GAP 13 7 - 15 mmol/L 07/08/2024 6:22 PM EST [facility] GLUCOSE 109 70 - 120 mg/dL 07/08/2024 6:22 PM EST [facility] CALCIUM 8.4 8.4 - 10.2 mg/dL 07/08/2024 6:22 PM EST [facility] Blood Venous blood specimen / Unknown Venipuncture / Unknown 07/08/2024 5:49 PM EST 07/08/2024 5:53 PM EST Patria Mott PA-C LAB BLOOD ORDERABLES Ashwini l Result [facility] [address] [place] [address] * (ABNORMAL) WHOLE BLOOD PROFILE, ARTERIAL (07/08/2024 4:39 PM EST) Temperature 37.0 C 07/08/2024 4:47 PM EST [facility] pH, Arterial 7.300(L) 7.350 - 7.450 units 07/08/2024 4:47 PM EST [facility] pCO2, Arterial 47.6(H) 35.0 - 45.0 mmHg 07/08/2024 4:47 PM EST [facility] pO2, Arterial 184.0(H) 75.0 - 100.0 mmHg 07/08/2024 4:47 PM EST [facility] Base Excess, Arterial -3.2(L) -2.0 - 2.0 mmol/L 07/08/2024 4:47 PM EST [facility] HGB 10.4(L) 14.0 - 16.8 g/dL 07/08/2024 4:47 PM EST [facility] Oxyhemoglobin, Arterial 96.0 94.0 - 99.0 % total Hgb 07/08/2024 4:47 PM EST [facility] Carboxyhemoglob in, Whole Blood 1.3 <=1.5 % total Hgb 07/08/2024 4:47 PM EST [facility] Comment:Smokers: 0-9.0 % Methemoglobin, Whole Blood 1.8(H) <=1.5 % total Hgb 07/08/2024 4:47 PM EST [facility] Reduced Hemoglobin, Arterial 0.9 0.0 - 5.0 % total Hgb 07/08/2024 4:47 PM EST [facility] O2 Content, Arterial 14.4(L) 15.0 - 24.0 %vol 07/08/2024 4:47 PM EST [facility] Potassium 4.3 3.5 - 5.1 mmol/L 07/08/2024 4:47 PM EST [facility] Sodium 141 135 - 146 mmol/L 07/08/2024 4:47 PM EST [facility] Chloride 112(H) 98 - 107 mmol/L 07/08/2024 4:47 PM EST [facility] Calcium, Ionized 1.17 1.13 - 1.32 mmol/L 07/08/2024 4:47 PM EST [facility] Anion Gap 6.6(L) 7.0 - 15.0 mmol/L 07/08/2024 4:47 PM EST [facility] Glucose 93 70 - 120 mg/dL 07/08/2024 4:47 PM EST [facility] FiO2 50 % 07/08/2024 4:47 PM EST [facility] O2 Flow, Arterial Not Provided L/min 07/08/2024 4:47 PM EST [facility] Bicarbonate, Whole Blood 22.7(L) 23.0 - 31.0 mmol/L 07/08/2024 4:47 PM EST [facility] Blood Arterial blood specimen / Unknown Arterial Puncture / Unknown 07/08/2024 4:39 PM EST 07/08/2024 4:43 PM EST us Patria Mott PA-C LAB BLOOD ORDERABLES Ashwini l Result [facility] [address] [place] [address] * GLUCOSE METER, POINT OF CARE (07/08/2024 4:03 PM EST) GLUCOSE - POCT 95 70 - 120 mg/dL 07/09/2024 3:12 AM EST [facility] Blood Whole blood specimen / Unknown 07/08/2024 4:03 PM EST 07/09/2024 3:12 AM EST us Jayden Galvan MD LAB POINT O F CARE TEST DOCKED DEVICE UNSOLICITED RESULTS Final Result [facility] [address] [place] [address] * GLUCOSE METER, POINT OF CARE (07/08/2024 3:33 PM EST) GLUCOSE - POCT 110 70 - 120 mg/dL 07/09/2024 3:12 AM EST [facility] Blood Whole blood specimen / Unknown 07/08/2024 3:33 PM EST 07/09/2024 3:12 AM EST us Jayden Galvan MD LAB POINT O F CARE TEST DOCKED DEVICE UNSOLICITED RESULTS Final Result [facility] [address] [place] [address] * (ABNORMAL) WHOLE BLOOD PROFILE, ARTERIAL (07/08/2024 3:21 PM EST) Temperature 37.0 C 07/08/2024 3:31 PM EST [facility] pH, Arterial 7.300(L) 7.350 - 7.450 units 07/08/2024 3:31 PM EST [facility] pCO2, Arterial 47.8(H) 35.0 - 45.0 mmHg 07/08/2024 3:31 PM EST [facility] pO2, Arterial 161.0(H) 75.0 - 100.0 mmHg 07/08/2024 3:31 PM EST [facility] Base Excess, Arterial -3.1(L) -2.0 - 2.0 mmol/L 07/08/2024 3:31 PM EST [facility] HGB 10.8(L) 14.0 - 16.8 g/dL 07/08/2024 3:31 PM EST [facility] Oxyhemoglobin, Arterial 97.0 94.0 - 99.0 % total Hgb 07/08/2024 3:31 PM EST [facility] Carboxyhemoglob in, Whole Blood 1.1 <=1.5 % total Hgb 07/08/2024 3:31 PM EST [facility] Comment:Smokers: 0-9.0 % Methemoglobin, Whole Blood 0.9 <=1.5 % total Hgb 07/08/2024 3:31 PM EST [facility] Reduced Hemoglobin, Arterial 1.0 0.0 - 5.0 % total Hgb 07/08/2024 3:31 PM EST [facility] O2 Content, Arterial 15.1 15.0 - 24.0 %vol 07/08/2024 3:31 PM EST [facility] Potassium 3.9 3.5 - 5.1 mmol/L 07/08/2024 3:31 PM EST [facility] Sodium 141 135 - 146 mmol/L 07/08/2024 3:31 PM EST [facility] Chloride 110(H) 98 - 107 mmol/L 07/08/2024 3:31 PM EST [facility] Calcium, Ionized 1.20 1.13 - 1.32 mmol/L 07/08/2024 3:31 PM EST [facility] Anion Gap 8.0 7.0 - 15.0 mmol/L 07/08/2024 3:31 PM EST [facility] Glucose 116 70 - 120 mg/dL 07/08/2024 3:31 PM EST [facility] FiO2 50 % 07/08/2024 3:31 PM EST [facility] O2 Flow, Arterial Not Provided L/min 07/08/2024 3:31 PM EST [facility] Bicarbonate, Whole Blood 22.8(L) 23.0 - 31.0 mmol/L 07/08/2024 3:31 PM EST [facility] Blood Arterial blood specimen / Unknown Arterial Puncture / Unknown 07/08/2024 3:21 PM EST 07/08/2024 3:24 PM EST us Patria Mott PA-C LAB BLOOD ORDERABLES Ashwini l Result LAB[facility]ORY [facility] [address] [place] [address] * (ABNORMAL) GLUCOSE METER, POINT OF CARE (07/08/2024 2:13 PM EST) [facility] GLUCOSE - POCT 146(H) 70 - 120 mg/dL 07/09/2024 3:11 AM EST [employer] Blood Whole blood specimen / Unknown 07/08/2024 2:13 PM EST 07/09/2024 3:11 AM EST us Jayden Galvan MD LAB POINT O F CARE TEST DOCKED DEVICE UNSOLICITED RESULTS Final Result [facility] [address] [place] [address] * (ABNORMAL) WHOLE BLOOD PROFILE, ARTERIAL (07/08/2024 2:13 PM EST) Temperature 37.0 C 07/08/2024 2:19 PM EST [facility] pH, Arterial 7.316(L) 7.350 - 7.450 units 07/08/2024 2:19 PM EST [facility] pCO2, Arterial 44.9 35.0 - 45.0 mmHg 07/08/2024 2:19 PM EST [facility] pO2, Arterial 157.0(H) 75.0 - 100.0 mmHg 07/08/2024 2:19 PM EST [facility] Base Excess, Arterial -3.3(L) -2.0 - 2.0 mmol/L 07/08/2024 2:19 PM EST [facility] HGB 11.2(L) 14.0 - 16.8 g/dL 07/08/2024 2:19 PM EST [facility] Oxyhemoglobin, Arterial 95.8 94.0 - 99.0 % total Hgb 07/08/2024 2:19 PM EST [facility] Carboxyhemoglob in, Whole Blood 1.4 <=1.5 % total Hgb 07/08/2024 2:19 PM EST [facility] Comment:Smokers: 0-9.0 % Methemoglobin, Whole Blood 1.8(H) <=1.5 % total Hgb 07/08/2024 2:19 PM EST [facility] Reduced Hemoglobin, Arterial 1.0 0.0 - 5.0 % total Hgb 07/08/2024 2:19 PM EST [facility] O2 Content, Arterial 15.4 15.0 - 24.0 %vol 07/08/2024 2:19 PM EST [facility] Potassium 3.6 3.5 - 5.1 mmol/L 07/08/2024 2:19 PM EST [facility] Sodium 141 135 - 146 mmol/L 07/08/2024 2:19 PM EST [facility] Chloride 109(H) 98 - 107 mmol/L 07/08/2024 2:19 PM EST [facility] Calcium, Ionized 1.23 1.13 - 1.32 mmol/L 07/08/2024 2:19 PM EST [facility] Anion Gap 9.0 7.0 - 15.0 mmol/L 07/08/2024 2:19 PM EST [facility] Glucose 140(H) 70 - 120 mg/dL 07/08/2024 2:19 PM EST [facility] FiO2 50 % 07/08/2024 2:19 PM EST [facility] O2 Flow, Arterial Not Provided L/min 07/08/2024 2:19 PM EST [facility] Bicarbonate, Whole Blood 22.3(L) 23.0 - 31.0 mmol/L 07/08/2024 2:19 PM EST [facility] Blood Arterial blood specimen / Unknown Arterial Puncture / Unknown 07/08/2024 2:13 PM EST 07/08/2024 2:16 PM EST Patria Mott PA-C LAB BLOOD ORDERABLES Ashwini norwood Result LABORATORY [facility] [address] [place] [address] * (ABNORMAL) WHOLE BLOOD PROFILE, ARTERIAL (07/08/2024 1:15 PM EST) Pathologist [facility] Temperature 37.0 C 07/08/2024 1:23 PM EST [facility] pH, Arterial 7.324(L) 7.350 - 7.450 units 07/08/2024 1:23 PM EST [facility] pCO2, Arterial 44.7 35.0 - 45.0 mmHg 07/08/2024 1:23 PM EST [facility] pO2, Arterial 145.0(H) 75.0 - 100.0 mmHg 07/08/2024 1:23 PM EST [facility] Base Excess, Arterial -2.9(L) -2.0 - 2.0 mmol/L 07/08/2024 1:23 PM EST [facility] HGB 11.8(L) 14.0 - 16.8 g/dL 07/08/2024 1:23 PM EST [facility] Oxyhemoglobin, Arterial 95.6 94.0 - 99.0 % total Hgb 07/08/2024 1:23 PM EST [facility] Carboxyhemoglob in, Whole Blood 1.6(H) <=1.5 % total Hgb 07/08/2024 1:23 PM EST [facility] Comment:Smokers: 0-9.0 % Methemoglobin, Whole Blood 1.5 <=1.5 % total Hgb 07/08/2024 1:23 PM EST [facility] Reduced Hemoglobin, Arterial 1.3 0.0 - 5.0 % total Hgb 07/08/2024 1:23 PM EST [facility] O2 Content, Arterial 16.1 15.0 - 24.0 %vol 07/08/2024 1:23 PM EST [facility] Potassium 3.6 3.5 - 5.1 mmol/L 07/08/2024 1:23 PM EST [facility] Sodium 141 135 - 146 mmol/L 07/08/2024 1:23 PM EST [facility] Chloride 109(H) 98 - 107 mmol/L 07/08/2024 1:23 PM EST [facility] Calcium, Ionized 1.06(L) 1.13 - 1.32 mmol/L 07/08/2024 1:23 PM EST [facility] Anion Gap 9.3 7.0 - 15.0 mmol/L 07/08/2024 1:23 PM EST [facility] Glucose 156(H) 70 - 120 mg/dL 07/08/2024 1:23 PM EST [facility] FiO2 50 % 07/08/2024 1:23 PM EST [facility] O2 Flow, Arterial Not Provided L/min 07/08/2024 1:23 PM EST [facility] Bicarbonate, Whole Blood 22.6(L) 23.0 - 31.0 mmol/L 07/08/2024 1:23 PM EST [facility] Blood Arterial blood specimen / Unknown Arterial Puncture / Unknown 07/08/2024 1:15 PM EST 07/08/2024 1:18 PM EST us Patria Mott PA-C LAB BLOOD ORDERABLES Ashwini norwood Result LABORATORY [facility] [address] [facility] [place] [address] * (ABNORMAL) GLUCOSE METER, POINT OF CARE (07/08/2024 1:11 PM EST) GLUCOSE - POCT 155(H) 70 - 120 mg/dL 07/09/2024 3:11 AM EST [facility] Blood Whole blood specimen / Unknown 07/08/2024 1:11 PM EST 07/09/2024 3:11 AM EST Jayden Galvan MD LAB POINT O F CARE TEST DOCKED DEVICE UNSOLICITED RESULTS Final Result [facility] [address] [place] [address] * XR ABDOMEN 1 VIEW (07/08/2024 12:38 PM EST) Anatomical Region Laterality Modality Abdomen, Pelvis Computed Radiogr aphy 07/08/2024 1:23 PM EST Impressions 07/08/2024 1:21 PM EST IMPRESSION: No acute findings in the chest. Narrative 07/08/2024 1:21 PM EST EXAM: XR CHEST 1 VIEW; XR ABDOMEN 1 VIEW - 07/08/2024 12:38 pm HISTORY: basline initial xray after open heart surgery; Gastric Tube placement verification TECHNIQUE: Portable AP views of the chest and upper abdomen COMPARISON: Chest x-ray from 07/03/2024 FINDINGS: Catheters/tubes/devices/foreign bodies: ETT terminates 5.5 cm from zohra. NG tube crosses the diaphragm at midline and projects over the expected location of the stomach. Right IJ Cordis contains a [place]-Shamika catheter with tip projecting over the right hilum in the expected location of the right pulmonary artery. Inferior approach mediastinal and left chest tubes. Sternotomy wires. No consolidation or effusion. No evidence of pneumothorax. Cardiomediastinal silhouette is within normal limits. Osseous structures are unremarkable. Procedure Note Ted Christine DO - 07/08/2024 EXAM: XR CHEST 1 VIEW; XR ABDOMEN 1 VIEW - 07/08/2024 12:38 pm HISTORY: basline initial xray after open heart surgery; Gastric Tube placementverification TECHNIQUE: Portable AP views of the chest and upper abdomen COMPARISON: Chest x-ray from 07/03/2024 FINDINGS: Catheters/tubes/devices/foreign bodies: ETT terminates 5.5 cm from zohra.NG tube crosses the diaphragm at midline and projects over the expectedlocation of the stomach. Right IJ Cordis contains a [place]-Shamika catheterwith tip projecting over the right hilum in the expected location of theright pulmonary artery. Inferior approach mediastinal and left chesttubes. Sternotomy wires. No consolidation or effusion. No evidence of pneumothorax. Cardiomediastinal silhouette is within normal limits. Osseous structures are unremarkable. IMPRESSION IMPRESSION: No acute findings in the chest. us Patria Mott PA-C RADIOLOGY (RAD GENERAL) F inal Result * XR CHEST 1 VIEW (07/08/2024 12:38 PM EST) Anatomical Region Laterality Modality Chest Computed Radiogr aphy 07/08/2024 1:23 PM EST Impressions 07/08/2024 1:21 PM EST IMPRESSION: No acute findings in the chest. Narrative 07/08/2024 1:21 PM EST EXAM: XR CHEST 1 VIEW; XR ABDOMEN 1 VIEW - 07/08/2024 12:38 pm HISTORY: basline initial xray after open heart surgery; Gastric Tube placement verification TECHNIQUE: Portable AP views of the chest and upper abdomen COMPARISON: Chest x-ray from 07/03/2024 FINDINGS: Catheters/tubes/devices/foreign bodies: ETT terminates 5.5 cm from zohra. NG tube crosses the diaphragm at midline and projects over the expected location of the stomach. Right IJ Cordis contains a [place]-Shamika catheter with tip projecting over the right hilum in the expected location of the right pulmonary artery. Inferior approach mediastinal and left chest tubes. Sternotomy wires. No consolidation or effusion. No evidence of pneumothorax. Cardiomediastinal silhouette is within normal limits. Osseous structures are unremarkable. Procedure Note Ted Christine, - 07/08/2024 EXAM: XR CHEST 1 VIEW; XR ABDOMEN 1 VIEW - 07/08/2024 12:38 pm HISTORY: basline initial xray after open heart surgery; Gastric Tube placementverification TECHNIQUE: Portable AP views of the chest and upper abdomen COMPARISON: Chest x-ray from 07/03/2024 FINDINGS: Catheters/tubes/devices/foreign bodies: ETT terminates 5.5 cm from zohra.NG tube crosses the diaphragm at midline and projects over the expectedlocation of the stomach. Right IJ Cordis contains a [place]-Shamika catheterwith tip projecting over the right hilum in the expected location of theright pulmonary artery. Inferior approach mediastinal and left chesttubes. Sternotomy wires. No consolidation or effusion. No evidence of pneumothorax. Cardiomediastinal silhouette is within normal limits. Osseous structures are unremarkable. IMPRESSION IMPRESSION: No acute findings in the chest. us Patria Mott PA-C RADIOLOGY (RAD GENERAL) F inal Result * (ABNORMAL) WHOLE BLOOD PROFILE, ARTERIAL (07/08/2024 12:34 PM EST) Temperature 37.0 C 07/08/2024 12:44 PM EST [facility] pH, Arterial 7.335(L) 7.350 - 7.450 units 07/08/2024 12:44 PM EST [facility] pCO2, Arterial 47.5(H) 35.0 - 45.0 mmHg 07/08/2024 12:44 PM EST [facility] pO2, Arterial 316.0(H) 75.0 - 100.0 mmHg 07/08/2024 12:44 PM EST [facility] Base Excess, Arterial -1.0 -2.0 - 2.0 mmol/L 07/08/2024 12:44 PM EST [facility] HGB 12.5(L) 14.0 - 16.8 g/dL 07/08/2024 12:44 PM EST [facility] Oxyhemoglobin, Arterial 97.5 94.0 - 99.0 % total Hgb 07/08/2024 12:44 PM EST [facility] Carboxyhemoglob in, Whole Blood 1.6(H) <=1.5 % total Hgb 07/08/2024 12:44 PM EST [facility] Comment:Smokers: 0-9.0 % Methemoglobin, Whole Blood 0.8 <=1.5 % total Hgb 07/08/2024 12:44 PM EST [facility] Reduced Hemoglobin, Arterial 0.1 0.0 - 5.0 % total Hgb 07/08/2024 12:44 PM EST [facility] O2 Content, Arterial 17.8 15.0 - 24.0 %vol 07/08/2024 12:44 PM EST [facility] Potassium 4.0 3.5 - 5.1 mmol/L 07/08/2024 12:44 PM EST [facility] Sodium 139 135 - 146 mmol/L 07/08/2024 12:44 PM EST [facility] Chloride 108(H) 98 - 107 mmol/L 07/08/2024 12:44 PM EST [facility] Calcium, Ionized 1.08(L) 1.13 - 1.32 mmol/L 07/08/2024 12:44 PM EST [facility] Anion Gap 6.9(L) 7.0 - 15.0 mmol/L 07/08/2024 12:44 PM EST [facility] Glucose 159(H) 70 - 120 mg/dL 07/08/2024 12:44 PM EST [facility] FiO2 100 % 07/08/2024 12:44 PM EST [facility] O2 Flow, Arterial Not Provided L/min 07/08/2024 12:44 PM EST LABORATORY [facility] Bicarbonate, Whole Blood 24.6 23.0 - 31.0 mmol/L 07/08/2024 12:44 PM EST LABORATORY [facility] Blood Arterial blood specimen / Unknown Arterial Puncture / Unknown 07/08/2024 12:34 PM EST 07/08/2024 12:38 PM EST Patria Mott PA-C LAB BLOOD ORDERABLES Ashwini norwood Result LABORATORY [facility] [place] [address] [place] [address] * TEG (THROMBOELASTOGRAPH), HEPARINASE (07/08/2024 12:32 PM EST) Pathologist [facility] Reaction Time 6.8 2.5 - 8.3 minutes 07/08/2024 1:53 PM EST LABORATORY [facility] Kinetics Time 1.4 0.5 - 3.7 minutes 07/08/2024 1:53 PM EST LAB[facility]AT[facility] Alpha Angle 69.7 46.8 - 78.4 degrees 07/08/2024 1:53 PM EST LABORATORY [facility] Maximum Amplitude 67.4 50.6 - 72.5 mm 07/08/2024 1:53 PM EST LABORATORY [facility] Coagulation Index 0.8 -3.0 - 3.0 07/08/2024 1:53 PM EST LAB[facility]AT[facility] Percent Lysis 30 0.2 0.0 - 7.5 % 024 1:53 PM EST LABORATORY [facility] Comment:This is an appended report. These results have been appended to a previously preliminary verified report. Blood Venous blood specimen / Unknown Venipuncture / Unknown 07/08/2024 12:32 PM EST 07/08/2024 12:39 PM EST Patria Mott PA-C LAB BLOOD ORDERABLES Ashwini l Result Performing Organization Address City/[facility] Co de Phone Number LABORATORY [facility] [place] [address] [place] [address] * (ABNORMAL) TEG (THROMBOELASTOGRAPH) (07/08/2024 12:32 PM EST) [facility] Signature Reaction Time 7.6 2.5 - 8.3 minutes 07/08/2024 1:53 PM EST LABORATORY [facility] Kinetics Time 2.7 0.5 - 3.7 minutes 07/08/2024 1:53 PM EST LABORATORY [facility] Alpha Angle 41.1(L) 46.8 - 78.4 degrees 07/08/2024 1:53 PM EST LABORATORY [facility] Maximum Amplitude 70.8 50.6 - 72.5 mm 07/08/2024 1:53 PM EST LABORATORY [facility] Coagulation Index -2.0 -3.0 - 3.0 07/08/2024 1:53 PM EST LABORATORY [facility] Percent Lysis 30 0.0 0.0 - 7.5 % 07/08/2024 1:53 PM EST LAB[facility]ATORY [facility] Comment:This is an appended report. These results have been appended to a previously preliminary verified report. Blood Venous blood specimen / Unknown Venipuncture / Unknown 07/08/2024 12:32 PM EST 07/08/2024 12:39 PM EST Patria Mott PA-C LAB BLOOD ORDERABLES Ashwini l Result Performing Organization Address City/[facility]/ZIP Co de Phone Number LABORATORY [facility] [place] [address] [place] [address] * PT INR (07/08/2024 12:32 PM EST) Prothrombin Time 14.1 11.6 - 15.2 seconds 07/08/2024 12:56 PM EST LABORATORY [facility] [place] INR 1.1 0.8 - 1.2 07/08/2024 12:56 PM EST LABORATORY [facility] [place] Blood Venous blood specimen / Unknown Venipuncture / Unknown 07/08/2024 12:32 PM EST 07/08/2024 12:39 PM EST Narrative LABORATORY [facility] - 07/08/2024 12:56 PM EST Warfarin Therapy INR: 2.0-3.0 conventional anticoagulation INR: 2.5-3.5 high intensity anticoagulation Patria Mott PA-C LAB BLOOD ORDERABLES Ashwini l Result LABORATORY [facility] [place] [address] [place] [address] * O2 SATURATION, VENOUS (07/08/2024 12:32 PM EST) O2, Saturation, Venous 83.5 40.0 - 85.0 % 07/08/2024 12:44 PM EST LABORATORY [facility] [place] Blood Venous blood specimen / Unknown Venipuncture / Unknown 07/08/2024 12:32 PM EST 07/08/2024 12:38 PM EST Patria Mott PA-C LAB BLOOD ORDERABLES Ashwini l Result LABORATORY [facility] [place] [address] [place] [address] * (ABNORMAL) MAGNESIUM (07/08/2024 12:32 PM EST) Magnesium 3.5(H) 1.5 - 2.6 mg/dL 07/08/2024 1:06 PM EST LABORATORY [facility] [facility] Blood Venous blood specimen / Unknown Venipuncture / Unknown 07/08/2024 12:32 PM EST 07/08/2024 12:39 PM EST Patria Mott PA-C LAB BLOOD ORDERABLES Ashwini l Result Performing Organization Address City/[facility]/ZIP Co de Phone Number LABORATORY [facility] [place] [address] [place] [address] * (ABNORMAL) HEPARIN, UNFRACTIONATED (07/08/2024 12:32 PM EST) Heparin, Unfractionated 0.14(H) <0.10 IU/mL 07/08/2024 12:56 PM EST LABORATORY [facility] [place] Comment: Unfractionated therapeutic ranges for Anti Xa activity: For Cardiac/Neurologic treatment: 0.3 to 0.6 IU/mL. For treatment of DVT or Pulmonary Embolism: 0.3 to 0.7 IU/mL. Blood Venous blood specimen / Unknown Venipuncture / Unknown 07/08/2024 12:32 PM EST 07/08/2024 12:39 PM EST Patria CHINCHILLA-C LAB BLOOD ORDERABLES Ashwini l Result Performing Organization Address [facility] Co de Phone Number LABORATORY [place] [address] [place] [address] * FIBRINOGEN (07/08/2024 12:32 PM EST) Pathologist [facility] Fibrinogen 279 178 - 467 mg/dL 07/08/2024 12:56 PM EST LABORATORY [facility] [place] [facility] Blood Venous blood specimen / Unknown Venipuncture / Unknown 07/08/2024 12:32 PM EST 07/08/2024 12:39 PM EST Patria CHINCHILLA-C LAB BLOOD ORDERABLES Ashwini l Result Performing Organization Address City/[facility]/ZIP Co de Phone Number LABORATORY [facility] [place] [facility] [address] [place] [address] * (ABNORMAL) CBC (07/08/2024 12:32 PM EST) WBC 13.08(H) 4.00 - 10.80 K/uL 07/08/2024 12:49 PM EST LABORATORY [facility] RBC 3.76 4.50 - 5.25 M/uL 07/08/2024 12:49 PM EST LAB[facility]ATORY [facility] HGB 12.0(L) 14.0 - 16.8 g/dL 07/08/2024 12:49 PM EST LAB[facility]ATORY [facility] HCT 34.9(L) 40.0 - 48.4 % 07/08/2024 12:49 PM EST LAB[facility]ATORY [facility] MCV 92.8 82.0 - 99.5 fL 07/08/2024 12:49 PM EST LAB[facility]ATORY [facility] MCH 31.9 27.0 - 34.0 pg 07/08/2024 12:49 PM EST LAB[facility]ATORY [facility] MCHC 34.4 32.0 - 36.0 g/dL 07/08/2024 12:49 PM EST LAB[facility]ATORY [facility] RDW 12.9 11.5 - 15.5 % 07/08/2024 12:49 PM EST LAB[facility]ATORY [facility] PLT 142 140 - 400 K/uL 07/08/2024 12:49 PM EST LAB[facility]ATORY [facility] MPV 10.9 6.6 - 11.1 fL 07/08/2024 12:49 PM EST LABORATORY [facility] nRBCs 0 <=0 /100 WBCs 07/08/2024 12:49 PM EST LABORATORY [facility] Blood Venous blood specimen / Unknown Venipuncture / Unknown 07/08/2024 12:32 PM EST 07/08/2024 12:39 PM EST us Patria Mott PA-C LAB BLOOD ORDERABLES Ashwini l Result Performing Organization Address City/State/[facility] Co de Phone Number LABORATORY [facility] [address] [place] [address] * (ABNORMAL) BASIC METABOLIC PANEL (07/08/2024 12:32 PM EST) Pathologist [facility] BUN 12 6 - 20 mg/dL 07/08/2024 1:06 PM EST LABORATORY [facility] CREATININE 1.1 0.6 - 1.2 mg/dL 07/08/2024 1:06 PM EST LAB[facility]ATORY [facility] EGFR 73 >=60 mL/min 07/08/2024 1:06 PM EST LABORATORY [facility] Comment:eGFR is calculated b ased on the CKD-EPI 2020 equation. SODIUM 142 135 - 146 mmol/L 07/08/2024 1:06 PM EST LABORATORY [facility] POTASSIUM 4.1 3.5 - 5.1 mmol/L 07/08/2024 1:06 PM EST LAB[facility]ATORY [facility] CHLORIDE 105 98 - 107 mmol/L 07/08/2024 1:06 PM EST LAB[facility]ATORY [facility] CO2 23 22 - 32 mmol/L 07/08/2024 1:06 PM EST LAB[facility]ATORY [facility] ANION GAP 14 7 - 15 mmol/L 07/08/2024 1:06 PM EST LAB[facility]ATORY [facility] GLUCOSE 154(H) 70 - 120 mg/dL 07/08/2024 1:06 PM EST LAB[facility]ATORY [facility] CALCIUM 7.9(L) 8.4 - 10.2 mg/dL 07/08/2024 1:06 PM EST LAB[facility]ATORY [facility] Blood Venous blood specimen / Unknown Venipuncture / Unknown 07/08/2024 12:32 PM EST 07/08/2024 12:39 PM EST Patria CHINCHILLA-C LAB BLOOD ORDERABLES Ashwini l Result Performing Organization Address City/[facility]/ZIP Co de Phone Number LABORATORY [facility] [address] [place] [address] * (ABNORMAL) APTT (07/08/2024 12:32 PM EST) aPTT 73(H) 21 - 38 seconds 07/08/2024 12:56 PM EST LABORATORY [facility] [place] [facility] Blood Venous blood specimen / Unknown Venipuncture / Unknown 07/08/2024 12:32 PM EST 07/08/2024 12:39 PM EST Narrative LAB[facility]ATORY [facility] - 07/08/2024 12:56 PM EST Anticoagulation may affect testing. Refer to [employer] Test Catalog for a list of effects. Patria CHINCHILLA-C LAB BLOOD ORDERABLES Ashwini l Result Performing Organization Address City/[facility]/ZIP Co de Phone Number LABORATORY [facility] [place] [facility] [address] [place] [address] * (ABNORMAL) ANTITHROMBIN III ACTIVITY (07/08/2024 12:32 PM EST) Antithrombin III Activity 63(L) 80 - 120 % 07/08/2024 12:53 PM EST LABORATORY [facility] [place] Blood Venous blood specimen / Unknown Venipuncture / Unknown 07/08/2024 12:32 PM EST 07/08/2024 12:39 PM EST us Patria Mott PA-C LAB BLOOD ORDERABLES Ashwini l Result LABORATORY [facility] [address] [place] [address] * (ABNORMAL) BLOOD GAS WITH CHEMISTRY, POINT OF CARE (07/08/2024 12:20 PM EST) Draw Site Arterial Draw 07/08/2024 12:29 PM EST [employer] pH i-STAT 7.329(L) 7.350 - 7.450 07/08/2024 12:29 PM EST [employer] pCO2 i-STAT 49.1(H) 35.0 - 45.0 mm Hg 07/08/2024 12:29 PM EST [employer] pO2 i-STAT 389(H) 75 - 100 mm Hg 07/08/2024 12:29 PM EST [employer] Base Excess i-STAT -1 -2 - 2 mmol/L 07/08/2024 12:29 PM EST [employer] Bicarbonate i-STAT 25.8 23.0 - 31.0 mmol/L 07/08/2024 12:29 PM EST [employer] O2 Saturation i-STAT 100.0(H) 94.0 - 98.0 % 07/08/2024 12:29 PM EST [employer] GLUCOSE - POCT 143(H) 70 - 120 mg/dL 07/08/2024 12:29 PM EST [employer] POTASSIUM - POCT 4.0 3.5 - 5.1 mmol/L 07/08/2024 12:29 PM EST [employer] SODIUM - POCT 141 135 - 146 mmol/L 07/08/2024 12:29 PM EST [employer] Calcium, ionized 1.06(L) 1.13 - 1.32 mmol/L 07/08/2024 12:29 PM EST [employer] Hemoglobin i-STAT 10.9(L) 14.0 - 16.8 g/dL 07/08/2024 12:29 PM EST [employer] Hematocrit i-STAT 32(L) 40 - 48 % 07/08/2024 12:29 PM EST [employer] FiO2 100 % 07/08/2024 12:29 PM EST [employer] Arterial Draw 07/08/2024 12: 20 PM EST 07/08/2024 12:29 PM EST Jayden Galvan MD LAB POINT O F CARE TEST DOCKED DEVICE UNSOLICITED RESULTS Final Result Performing Organization Address City/[facility]/ZIP Co de Phone Number [facility] [address] [place] [address] * ACT, POINT OF CARE (07/08/2024 11:24 AM EST) ACT 112 50 - 1,000 secs 07/08/2024 11:46 AM EST [employer] Blood 07/08/2024 11:2 4 AM EST 07/08/2024 11:46 AM EST Narrative [employer] - 07/08/2024 11:46 AM EST NORMAL (NON-HEPARINIZED) 74-137 SECONDS HEPARINIZED 200+ SECONDS CRITICAL GREATER THAN 1000 SECONDS us Jayden Galvan MD LAB POINT O F CARE TEST DOCKED DEVICE UNSOLICITED RESULTS Final Result [facility] [address] [place] [address] * (ABNORMAL) BLOOD GAS WITH CHEMISTRY, POINT OF CARE (07/08/2024 11:24 AM EST) Draw Site Arterial Draw 07/08/2024 11:46 AM EST [employer] pH i-STAT 7.345(L) 7.350 - 7.450 07/08/2024 11:46 AM EST [facility] pCO2 i-STAT 48.2(H) 35.0 - 45.0 mm Hg 07/08/2024 11:46 AM EST [facility] pO2 i-STAT 303(H) 75 - 100 mm Hg 07/08/2024 11:46 AM EST [facility] Base Excess i-STAT 0 -2 - 2 mmol/L 07/08/2024 11:46 AM EST [facility] Bicarbonate i-STAT 26.3 23.0 - 31.0 mmol/L 07/08/2024 11:46 AM EST [facility] O2 Saturation i-STAT 100.0(H) 94.0 - 98.0 % 07/08/2024 11:46 AM EST [facility] GLUCOSE - POCT 161(H) 70 - 120 mg/dL 07/08/2024 11:46 AM EST [facility] POTASSIUM - POCT 4.9 3.5 - 5.1 mmol/L 07/08/2024 11:46 AM EST [facility] SODIUM - POCT 139 135 - 146 mmol/L 07/08/2024 11:46 AM EST [facility] Calcium, ionized 1.13 1.13 - 1.32 mmol/L 07/08/2024 11:46 AM EST [facility] Hemoglobin i-STAT 9.9(L) 14.0 - 16.8 g/dL 07/08/2024 11:46 AM EST [facility] Hematocrit i-STAT 29(L) 40 - 48 % 07/08/2024 11:46 AM [facility] Arterial Draw 07/08/2024 11: 24 AM EST 07/08/2024 11:46 AM EST us Jayden Galvan MD LAB POINT O F CARE TEST DOCKED DEVICE UNSOLICITED RESULTS Final Result [facility] [address] [place] [address] * (ABNORMAL) LACTATE,WHOLE BLOOD (07/08/2024 11:12 AM EST) Lactate 2.2(H) 0.4 - 2.0 mmol/L 07/08/2024 11:35 AM EST LAB[facility]ATORY [facility] Blood Arterial blood specimen / Unknown 07/08/2024 11:12 AM EST 07/08/2024 11:26 AM EST us Melba Llamas MD LAB BLOOD ORDERABLES Final Resul t LAB[facility]ATORY [facility] [address] [place] [address] * (ABNORMAL) WHOLE BLOOD PROFILE, ARTERIAL (07/08/2024 11:12 AM EST) Temperature 37.0 C 07/08/2024 11:35 AM EST LAB[facility]ATORY [facility] pH, Arterial 7.344(L) 7.350 - 7.450 units 07/08/2024 11:35 AM EST LAB[facility] pCO2, Arterial 46.2(H) 35.0 - 45.0 mmHg 07/08/2024 11:35 AM EST LAB[facility] pO2, Arterial 190.0(H) 75.0 - 100.0 mmHg 07/08/2024 11:35 AM EST LAB[facility]ORY [facility] Base Excess, Arterial -0.8 -2.0 - 2.0 mmol/L 07/08/2024 11:35 AM EST LAB[facility] HGB 10.3(L) 14.0 - 16.8 g/dL 07/08/2024 11:35 AM EST [facility] Oxyhemoglobin, Arterial 96.8 94.0 - 99.0 % total Hgb 07/08/2024 11:35 AM EST [facility] Carboxyhemoglob in, Whole Blood 2.2(H) <=1.5 % total Hgb 07/08/2024 11:35 AM EST LAB[facility]ORY [facility] Comment:Smokers: 0-9.0 % Methemoglobin, Whole Blood 0.7 <=1.5 % total Hgb 07/08/2024 11:35 AM EST [facility] Reduced Hemoglobin, Arterial 0.3 0.0 - 5.0 % total Hgb 07/08/2024 11:35 AM EST [facility] O2 Content, Arterial 14.4(L) 15.0 - 24.0 %vol 07/08/2024 11:35 AM EST [facility] Potassium 5.4(H) 3.5 - 5.1 mmol/L 07/08/2024 11:35 AM EST [facility] Sodium 137 135 - 146 mmol/L 07/08/2024 11:35 AM EST [facility] Chloride 107 98 - 107 mmol/L 07/08/2024 11:35 AM EST [facility] Calcium, Ionized 1.11(L) 1.13 - 1.32 mmol/L 07/08/2024 11:35 AM EST [facility] Anion Gap 5.8(L) 7.0 - 15.0 mmol/L 07/08/2024 11:35 AM EST [facility] Glucose 170(H) 70 - 120 mg/dL 07/08/2024 11:35 AM EST [facility] FiO2 Not Provided % 07/08/2024 11:35 AM EST [facility] O2 Flow, Arterial Not Provided L/min 07/08/2024 11:35 AM EST LAB[facility] Bicarbonate, Whole Blood 24.5 23.0 - 31.0 mmol/L 07/08/2024 11:35 AM EST LAB[facility] Blood Arterial blood specimen / Unknown 07/08/2024 11:12 AM EST 07/08/2024 11:26 AM EST us Melba Llamas MD LAB BLOOD ORDERABLES Final Resul t LABORATORY [facility] [facility] [address] [place] [address] * (ABNORMAL) BLOOD GAS WITH CHEMISTRY, POINT OF CARE (07/08/2024 10:40 AM EST) Draw Site Arterial Draw 07/08/2024 11:46 AM EST [employer] pH i-STAT 7.328(L) 7.350 - 7.450 07/08/2024 11:46 AM EST [employer] pCO2 i-STAT 45.3(H) 35.0 - 45.0 mm Hg 07/08/2024 11:46 AM EST [employer] pO2 i-STAT 240(H) 75 - 100 mm Hg 07/08/2024 11:46 AM EST [employer] Base Excess i-STAT -2 -2 - 2 mmol/L 07/08/2024 11:46 AM EST [facility] Bicarbonate i-STAT 23.8 23.0 - 31.0 mmol/L 07/08/2024 11:46 AM EST [facility] O2 Saturation i-STAT 100.0(H) 94.0 - 98.0 % 07/08/2024 11:46 AM EST [facility] GLUCOSE - POCT 151(H) 70 - 120 mg/dL 07/08/2024 11:46 AM EST [facility] POTASSIUM - POCT 6.2(H) 3.5 - 5.1 mmol/L 07/08/2024 11:46 AM EST [facility] SODIUM - POCT 136 135 - 146 mmol/L 07/08/2024 11:46 AM EST [facility] Calcium, ionized 0.96(L) 1.13 - 1.32 mmol/L 07/08/2024 11:46 AM EST [facility] Hemoglobin i-STAT 9.5(L) 14.0 - 16.8 g/dL 07/08/2024 11:46 AM EST [facility] Hematocrit i-STAT 28(L) 40 - 48 % 07/08/2024 11:46 AM EST [facility] Arterial Draw 07/08/2024 10: 40 AM EST 07/08/2024 11:46 AM EST Jayden Galvan MD LAB POINT O F CARE TEST DOCKED DEVICE UNSOLICITED RESULTS Final Result [facility] [address] [place] [address] * ACT, POINT OF CARE (07/08/2024 10:39 AM EST) ACT 538 50 - 1,000 secs 07/08/2024 11:46 AM EST [facility] Blood 07/08/2024 10:3 9 AM EST 07/08/2024 11:46 AM EST Narrative [facility] - 07/08/2024 11:46 AM EST NORMAL (NON-HEPARINIZED) 74-137 SECONDS HEPARINIZED 200+ SECONDS CRITICAL GREATER THAN 1000 SECONDS Jayden Galvan MD LAB POINT O F CARE TEST DOCKED DEVICE UNSOLICITED RESULTS Final Result Performing Organization Address [facility] Co de Phone Number [facility] [address] [place] [address] * ACT, POINT OF CARE (07/08/2024 10:18 AM EST) [facility] ACT 608 50 - 1,000 secs 07/08/2024 11:46 AM EST [employer] Blood 07/08/2024 10:1 8 AM EST 07/08/2024 11:46 AM EST [facility] [employer] [facility] - 07/08/2024 11:46 AM EST NORMAL (NON-HEPARINIZED) 74-137 SECONDS HEPARINIZED 200+ SECONDS CRITICAL GREATER THAN 1000 SECONDS Jayden Galvan MD LAB POINT O F CARE TEST DOCKED DEVICE UNSOLICITED RESULTS Final Result Performing Organization Address [facility] Co de Phone Number [facility] [address] [place] [address] * (ABNORMAL) CBC (07/08/2024 10:00 AM EST) [facility] WBC 13.47(H) 4.00 - 10.80 K/uL 07/08/2024 11:54 AM EST [facility] RBC 2.98 4.50 - 5.25 M/uL 07/08/2024 11:54 AM EST [facility] HGB 9.7(L) 14.0 - 16.8 g/dL 07/08/2024 11:54 AM EST [facility] HCT 27.9(L) 40.0 - 48.4 % 07/08/2024 11:54 AM EST [facility] MCV 93.6 82.0 - 99.5 fL 07/08/2024 11:54 AM EST [facility] MCH 32.6 27.0 - 34.0 pg 07/08/2024 11:54 AM EST [facility] MCHC 34.8 32.0 - 36.0 g/dL 07/08/2024 11:54 AM EST [facility] RDW 12.8 11.5 - 15.5 % 07/08/2024 11:54 AM EST [facility] PLT 119(L) 140 - 400 K/uL 07/08/2024 11:54 AM EST [facility] MPV 11.4 6.6 - 11.1 fL 07/08/2024 11:54 AM EST [facility] nRBCs 0 <=0 /100 WBCs 07/08/2024 11:54 AM EST LABORATORY [facility] Blood Arterial blood specimen / Unknown 07/08/2024 10:00 AM EST 07/08/2024 11:26 AM EST us Melba Llamas MD LAB BLOOD ORDERABLES Final Resul t LABORATORY [facility] [address] [place] [address] * ACT, POINT OF CARE (07/08/2024 9:56 AM EST) ACT 452 50 - 1,000 secs 07/08/2024 11:46 AM EST [facility] [facility] Blood 07/08/2024 9:56 AM EST 07/08/2024 11:46 AM EST Narrative [facility] - 07/08/2024 11:46 AM EST NORMAL (NON-HEPARINIZED) 74-137 SECONDS HEPARINIZED 200+ SECONDS CRITICAL GREATER THAN 1000 SECONDS us Jayden Galvan MD LAB POINT O F CARE TEST DOCKED DEVICE UNSOLICITED RESULTS Final Result [facility] [address] [place] [address] * TEG (THROMBOELASTOGRAPH), HEPARINASE (07/08/2024 9:50 AM EST) Reaction Time 5.0 2.5 - 8.3 minutes 07/08/2024 12:46 PM EST LABORATORY C Kinetics Time 1.5 0.5 - 3.7 minutes 07/08/2024 12:46 PM EST LABORATORY [facility] Alpha Angle 69.2 46.8 - 78.4 degrees 07/08/2024 12:46 PM EST LABORATORY C Maximum Amplitude 63.4 50.6 - 72.5 mm 07/08/2024 12:46 PM EST LABORATORY [facility] Coagulation Index 1.4 -3.0 - 3.0 07/08/2024 12:46 PM EST LABORATORY [facility] Comment:This is an appended report. These results have been appended to a previously preliminary verified report. Percent Lysis 30 0.5 0.0 - 7.5 % 12:46 PM EST LABORATORY [facility] Comment:This is an appended report. These results have been appended to a previously preliminary verified report. Blood Arterial blood specimen / Unknown 07/08/2024 9:50 AM EST 07/08/2024 11:26 AM EST us Melba Llamas MD LAB BLOOD ORDERABLES Final Resul t Performing Organization Address City/State/[facility] Co de Phone Number LABORATORY [facility] [address] [place] [address] * TEG (THROMBOELASTOGRAPH) (07/08/2024 9:50 AM EST) Reaction Time 4.8 2.5 - 8.3 minutes 07/08/2024 12:45 PM EST LABORATORY [facility] Kinetics Time 2.0 0.5 - 3.7 minutes 07/08/2024 12:45 PM EST LABORATORY [facility] Alpha Angle 64.7 46.8 - 78.4 degrees 07/08/2024 12:45 PM EST LABORATORY [facility] Maximum Amplitude 57.2 50.6 - 72.5 mm 07/08/2024 12:45 PM EST LAB[facility]ATORY [facility] Coagulation Index 0.2 -3.0 - 3.0 07/08/2024 12:45 PM EST LABORATORY [facility] Comment:This is an appended report. These results have been appended to a previously preliminary verified report. Percent Lysis 30 0.0 0.0 - 7.5 % 12:45 PM EST LABORATORY [facility] Comment:This is an appended report. These results have been appended to a previously preliminary verified report. Blood Arterial blood specimen / Unknown 07/08/2024 9:50 AM EST 07/08/2024 11:26 AM EST us Melba Llamas MD LAB BLOOD ORDERABLES Final Resul t Performing Organization Address [facility] Phone Number LABORATORY [facility] [address] [place] [address] * (ABNORMAL) PT INR (07/08/2024 9:50 AM EST) Prothrombin Time 16.0(H) 11.6 - 15.2 seconds 07/08/2024 12:01 PM EST [facility] INR 1.3(H) 0.8 - 1.2 07/08/2024 12:01 PM EST LABORATORY [facility] Blood Arterial blood specimen / Unknown 07/08/2024 9:50 AM EST 07/08/2024 11:26 AM EST Narrative LABORATORY C - 07/08/2024 12:01 PM EST Warfarin Therapy INR: 2.0-3.0 conventional anticoagulation INR: 2.5-3.5 high intensity anticoagulation us Melba Llamas MD LAB BLOOD ORDERABLES Final Resul t Performing Organization Address [facility] Phone Number LABORATORY [address] [address] * FIBRINOGEN (07/08/2024 9:50 AM EST) Fibrinogen 246 178 - 467 mg/dL 07/08/2024 12:02 PM EST LABORATORY [facility] Blood Arterial blood specimen / Unknown 07/08/2024 9:50 AM EST 07/08/2024 11:26 AM EST us Melba Llamas MD LAB BLOOD ORDERABLES Final Resul t Performing Organization Address [facility] de Phone Number LABORATORY [facility] [address] [place] [address] * (ABNORMAL) APTT (07/08/2024 9:50 AM EST) aPTT 50(H) 21 - 38 seconds 07/08/2024 12:02 PM EST LABORATORY [facility] Blood Arterial blood specimen / Unknown 07/08/2024 9:50 AM EST 07/08/2024 11:26 AM EST Narrative LABORATORY [facility] - 07/08/2024 12:02 PM EST Anticoagulation may affect testing. Refer to [employer] Catalog for a list of effects. us Melba Llamas MD LAB BLOOD ORDERABLES Final Resul t Performing Organization Address City/[facility]/ZIP Co de Phone Number LABORATORY [facility] [address] [place] [address] * TEG (THROMBOELASTOGRAPH), HEPARINASE (07/08/2024 9:47 AM EST) Reaction Time 7.1 2.5 - 8.3 minutes 07/08/2024 11:15 AM EST LABORATORY [facility] Kinetics Time 1.8 0.5 - 3.7 minutes 07/08/2024 11:15 AM EST LABORATORY [facility] Alpha Angle 65.4 46.8 - 78.4 degrees 07/08/2024 11:15 AM EST LABORATORY [facility] Maximum Amplitude 59.5 50.6 - 72.5 mm 07/08/2024 11:15 AM EST LABORATORY [facility] Coagulation Index -0.8 -3.0 - 3.0 07/08/2024 11:15 AM EST LAB[facility]ATORY [facility] Percent Lysis 30 0.5 0.0 - 7.5 % 024 11:15 AM EST LABORATORY [facility] Comment:This is an appended report. These results have been appended to a previously preliminary verified report. Blood Venous blood specimen / Unknown Venipuncture / Unknown 07/08/2024 9:47 AM EST 07/08/2024 9:58 AM EST us Jayden Galvan MD LAB BLOOD ORDERABLE S Final Result Performing Organization Address City/[facility]/ZIP Co de Phone Number LABORATORY [facility] [address] [place] [address] * (ABNORMAL) TEG (THROMBOELASTOGRAPH) (07/08/2024 9:47 AM EST) Reaction Time >20.0(H) 2.5 - 8.3 minutes 07/08/2024 10:37 AM EST [facility] [place] Blood Venous blood specimen / Unknown Venipuncture / Unknown 07/08/2024 9:47 AM EST 07/08/2024 9:58 AM EST Narrative LAB[facility]ATORY [facility] [place] - 07/08/2024 10:37 AM EST If R time > 20 minutes and no clot formed suggesting hypocoagulable state or interfering substance (anticoagulation). Consider resubmitting a new sample and/or checking PT/INR, aPTT, fibrinogen, and platelet count. us Jayden Galvan MD LAB BLOOD ORDERABLE S Final Result [facility] [place] [address] [place] [address] * (ABNORMAL) WHOLE BLOOD PROFILE, VENOUS (07/08/2024 9:47 AM EST) Temperature 37.0 C 07/08/2024 10:03 AM EST [facility] [place] pH, Venous 7.365 7.320 - 7.430 units 07/08/2024 10:03 AM EST LABORATORY C pCO2, Venous 43.6 40.0 - 60.0 mmHg 07/08/2024 10:03 AM EST LAB[facility] [place] pO2, Venous 45.8 25.0 - 50.0 mmHg 07/08/2024 10:03 AM EST LABORATORY C Base Excess, Venous -0.6 -2.0 - 2.0 mmol/L 07/08/2024 10:03 AM EST [facility] [place] HGB 10.4(L) 14.0 - 16.8 g/dL 07/08/2024 10:03 AM EST [facility] [place] Oxyhemoglobin, Venous 77.6 40.0 - 85.0 % total Hgb 07/08/2024 10:03 AM EST [facility] [place] Carboxyhemoglobi n, Whole Blood 2.5(H) <=1.5 % total Hgb 07/08/2024 10:03 AM EST [facility] [place] Comment:Smokers: 0-9.0 % Methemoglobin, Whole Blood 1.6(H) <=1.5 % total Hgb 07/08/2024 10:03 AM EST LAB[facility] Reduced Hemoglobin, Venous 18.3 % total Hgb 07/08/2024 10:03 AM EST [facility] O2 Content, Venous 11.3 7.0 - 18.0 %vol 07/08/2024 10:03 AM EST [facility] Potassium 5.4(H) 3.5 - 5.1 mmol/L 07/08/2024 10:03 AM EST [facility] Sodium 136 135 - 146 mmol/L 07/08/2024 10:03 AM EST [facility] Chloride 106 98 - 107 mmol/L 07/08/2024 10:03 AM EST [facility] Calcium, Ionized 0.96(L) 1.13 - 1.32 mmol/L 07/08/2024 10:03 AM EST [facility] Anion Gap 6.4(L) 7.0 - 15.0 mmol/L 07/08/2024 10:03 AM EST [facility] Glucose 118 70 - 120 mg/dL 07/08/2024 10:03 AM EST [facility] Bicarbonate, Whole Blood 24.3 23.0 - 31.0 mmol/L 07/08/2024 10:03 AM EST LABORATORY [facility] Blood Venous blood specimen / Unknown Venipuncture / Unknown 07/08/2024 9:47 AM EST 07/08/2024 9:58 AM EST us Jayden Galvan MD LAB BLOOD ORDERABLE S Final Result Performing Organization Address City/State/[facility] [facility] Co de Phone Number LAB[facility]ATORY [facility] [address] [place] [address] * (ABNORMAL) BLOOD GAS, ARTERIAL (07/08/2024 9:47 AM EST) Temperature 37.0 C 07/08/2024 10:03 AM EST [facility]ORY [facility] pH, Arterial 7.370 7.350 - 7.450 units 07/08/2024 10:03 AM EST [facility] pCO2, Arterial 40.7 35.0 - 45.0 mmHg 07/08/2024 10:03 AM EST [facility] pO2, Arterial 204.0(H) 75.0 - 100.0 mmHg 07/08/2024 10:03 AM EST LAB[facility]ORY [facility] Base Excess, Arterial -1.6 -2.0 - 2.0 mmol/L 07/08/2024 10:03 AM EST [facility] HGB 10.6(L) 14.0 - 16.8 g/dL 07/08/2024 10:03 AM EST [facility] Oxyhemoglobin, Arterial 96.4 94.0 - 99.0 % total Hgb 07/08/2024 10:03 AM EST [facility] Carboxyhemoglob in, Whole Blood 2.0(H) <=1.5 % total Hgb 07/08/2024 10:03 AM EST [facility] Comment:Smokers: 0-9.0 % Methemoglobin, Whole Blood 1.0 <=1.5 % total Hgb 07/08/2024 10:03 AM EST [facility] Reduced Hemoglobin, Arterial 0.6 0.0 - 5.0 % total Hgb 07/08/2024 10:03 AM EST [facility] O2 Content, Arterial 14.8(L) 15.0 - 24.0 %vol 07/08/2024 10:03 AM EST [facility] FiO2 Not Provided % 07/08/2024 10:03 AM EST [facility] O2 Flow, Arterial Not Provided L/min 07/08/2024 10:03 AM EST [facility] Bicarbonate, Whole Blood 22.9(L) 23.0 - 31.0 mmol/L 07/08/2024 10:03 AM EST [facility] Blood Arterial blood specimen / Unknown Arterial Puncture / Unknown 07/08/2024 9:47 AM EST 07/08/2024 9:58 AM EST us Jayden Galvan MD LAB BLOOD ORDERABLE S Final Result LAB[facility]ATORY [facility] [address] [place] [address] * PLT (07/08/2024 9:47 AM EST) PLT 149 140 - 400 K/uL 07/08/2024 10:32 AM EST [facility] Blood Venous blood specimen / Unknown Venipuncture / Unknown 07/08/2024 9:47 AM EST 07/08/2024 9:58 AM EST Jayden Galvan MD LAB BLOOD ORDERABLE S Final Result Performing Organization Address [facility] Co de Phone Number LABORATORY [facility] [place] [address] [place] [address] * (ABNORMAL) HCT (07/08/2024 9:47 AM EST) Pathologist [facility] HCT 29.9(L) 40.0 - 48.4 % 07/08/2024 10:32 AM EST LAB[facility]ATORY [facility] [place] [facility] Blood Venous blood specimen / Unknown Venipuncture / Unknown 07/08/2024 9:47 AM EST 07/08/2024 9:58 AM EST Jayden Galvan MD LAB BLOOD ORDERABLE S Final Result Performing Organization Address [facility] Phone Number LABORATORY [facility] [address] [place] [address] * FIBRINOGEN (07/08/2024 9:47 AM EST) Pathologist [facility] Fibrinogen 251 178 - 467 mg/dL 07/08/2024 10:25 AM EST LAB[facility]ATORY [facility] [facility] Blood Venous blood specimen / Unknown Venipuncture / Unknown 07/08/2024 9:47 AM EST 07/08/2024 9:58 AM EST Jayden Galvan MD LAB BLOOD ORDERABLE S Final Result Performing Organization Address [facility] de Phone Number LABORATORY [facility] [address] [place] [address] * ACT, POINT OF CARE (07/08/2024 9:30 AM EST) Pathologist [facility] ACT 446 50 - 1,000 secs 07/08/2024 11:46 AM EST [employer] Blood 07/08/2024 9:30 AM EST 07/08/2024 11:46 AM EST Narrative [facility] - 07/08/2024 11:46 AM EST NORMAL (NON-HEPARINIZED) 74-137 SECONDS HEPARINIZED 200+ SECONDS CRITICAL GREATER THAN 1000 SECONDS us Jayden Galvan MD LAB POINT O F CARE TEST DOCKED DEVICE UNSOLICITED RESULTS Final Result [facility] [address] [place] [address] * (ABNORMAL) BLOOD GAS WITH CHEMISTRY, POINT OF CARE (07/08/2024 9:26 AM EST) Draw Site Arterial Draw 07/08/2024 11:44 AM [facility] pH i-STAT 7.278(L) 7.350 - 7.450 07/08/2024 11:44 AM [facility] pCO2 i-STAT 52.4(H) 35.0 - 45.0 mm Hg 07/08/2024 11:44 AM [facility] [employer] pO2 i-STAT 356(H) 75 - 100 mm Hg 07/08/2024 11:44 AM [facility] [employer] Excess i-STAT -3(L) -2 - 2 mmol/L 07/08/2024 11:44 AM [facility] Bicarbonate i-STAT 24.5 23.0 - 31.0 mmol/L 07/08/2024 11:44 AM [facility] [employer] O2 Saturation i-STAT 100.0(H) 94.0 - 98.0 % 07/08/2024 11:44 AM [facility] [employer] GLUCOSE - POCT 120 70 - 120 mg/dL 07/08/2024 11:44 AM [facility] [employer] POTASSIUM - POCT 4.5 3.5 - 5.1 mmol/L 07/08/2024 11:44 AM [facility] [employer] SODIUM - POCT 138 135 - 146 mmol/L 07/08/2024 11:44 AM [facility] [employer] Calcium, ionized 1.09(L) 1.13 - 1.32 mmol/L 07/08/2024 11:[address] [facility] Hemoglobin i-STAT 11.2(L) 14.0 - 16.8 g/dL 07/08/2024 11:44 AM EST [employer] Hematocrit i-STAT 33(L) 40 - 48 % 07/08/2024 11:44 AM EST [employer] Arterial Draw 07/08/2024 9:2 6 AM EST 07/08/2024 11:44 AM EST Jayden Galvan MD LAB POINT O F CARE TEST DOCKED DEVICE UNSOLICITED RESULTS Final Result Performing Organization Address City/[facility]/ZIP Co de Phone Number [place] [place] [address] * ACT, POINT OF CARE (07/08/2024 9:16 AM EST) ACT 608 50 - 1,000 secs 07/08/2024 11:46 AM EST [employer] Blood 07/08/2024 9:16 AM EST 07/08/2024 11:46 AM EST Narrative [employer] - 07/08/2024 11:46 AM EST NORMAL (NON-HEPARINIZED) 74-137 SECONDS HEPARINIZED 200+ SECONDS CRITICAL GREATER THAN 1000 SECONDS Jayden Galvan MD LAB POINT O F CARE TEST DOCKED DEVICE UNSOLICITED RESULTS Final Result Performing Organization Address [facility] Co de Phone Number [address] [address] * ACT, POINT OF CARE (07/08/2024 9:16 AM EST) ACT 613 50 - 1,000 secs 07/08/2024 11:44 AM EST [employer] Blood 07/08/2024 9:16 AM EST 07/08/2024 11:44 AM EST Narrative [employer] [facility] - 07/08/2024 11:44 AM EST NORMAL (NON-HEPARINIZED) 74-137 SECONDS HEPARINIZED 200+ SECONDS CRITICAL GREATER THAN 1000 SECONDS us Jayden Galvan MD LAB POINT O F CARE TEST DOCKED DEVICE UNSOLICITED RESULTS Final Result Performing Organization Address [facility]/ZIP Co de Phone Number [facility] [address] [place] [address] * ACT, POINT OF CARE (07/08/2024 8:01 AM EST) [facility] ACT 129 50 - 1,000 secs 07/08/2024 11:46 AM EST [employer] Blood 07/08/2024 8:01 AM EST 07/08/2024 11:46 AM EST Narrative [employer] - 07/08/2024 11:46 AM EST NORMAL (NON-HEPARINIZED) 74-137 SECONDS HEPARINIZED 200+ SECONDS CRITICAL GREATER THAN 1000 SECONDS Jayden Galvan MD LAB POINT O F CARE TEST DOCKED DEVICE UNSOLICITED RESULTS Final Result Performing Organization Address [facility] Co de Phone Number [facility] [address] [place] [address] * (ABNORMAL) BLOOD GAS WITH CHEMISTRY, POINT OF CARE (07/08/2024 8:00 AM EST) [facility] Draw Site Arterial Draw 07/08/2024 11:46 AM EST [employer] pH i-STAT 7.262(L) 7.350 - 7.450 07/08/2024 11:46 AM EST [employer] pCO2 i-STAT 57.3(HH) 35.0 - 45.0 mm Hg 07/08/2024 11:46 AM EST [employer] pO2 i-STAT 545(H) 75 - 100 mm Hg 07/08/2024 11:46 AM EST [employer] Base Excess i-STAT -2 -2 - 2 mmol/L 07/08/2024 11:46 AM EST [employer] Bicarbonate i-STAT 25.8 23.0 - 31.0 mmol/L 07/08/2024 11:46 AM EST [employer] O2 Saturation i-STAT 100.0(H) 94.0 - 98.0 % 07/08/2024 11:46 AM EST [facility] [employer] GLUCOSE - POCT 106 70 - 120 mg/dL 07/08/2024 11:46 AM EST [facility] [employer] POTASSIUM - POCT 4.2 3.5 - 5.1 mmol/L 07/08/2024 11:46 AM EST [facility] SODIUM - POCT 139 135 - 146 mmol/L 07/08/2024 11:46 AM EST [facility] [employer] Calcium, ionized 1.21 1.13 - 1.32 mmol/L 07/08/2024 11:46 AM EST [facility] [employer] Hemoglobin i-STAT 12.6(L) 14.0 - 16.8 g/dL 07/08/2024 11:46 AM EST [facility] Hematocrit i-STAT 37(L) 40 - 48 % 07/08/2024 11:46 AM EST [facility] Arterial Draw 07/08/2024 8:0 0 AM EST 07/08/2024 11:46 AM EST us Jayden Galvan MD LAB POINT O F CARE TEST DOCKED DEVICE UNSOLICITED RESULTS Final Result [place] [place] [address] * GLUCOSE METER, POINT OF CARE (07/08/2024 6:34 AM EST) [facility] GLUCOSE - POCT 106 70 - 120 mg/dL 07/08/2024 6:37 AM EST [facility] Blood 07/08/2024 6:34 AM EST 07/08/2024 6:37 AM EST us Eder Moraes PA-C LAB POINT OF CARE TEST DOCKED DEVICE UNSOLICITED RESULTS Final Result [facility] [address] [place] [address] * PREPARE PACKED RED BLOOD CELLS (07/08/2024 5:55 AM EST) [facility] Unit Product Code [id number] 07/08/2024 12:24 PM EST [facility] Unit Number [id number] 07/08/2024 12:24 PM EST [facility] Unit ABO O 07/08/2024 12:24 PM EST [facility] Unit Rh POS 07/08/2024 12:24 PM EST [facility] Unit Crossmatch Compatible 07/08/2024 6:01 AM EST [facility] Unit Status RE 07/08/2024 12:24 PM EST [facility] Unit Blood Type OPOS 07/08/2024 12:24 PM EST [facility] Unit Expiration [id number] 07/08/2024 12:24 PM EST [facility] Unit Barcode 5100 07/08/2024 12:24 PM EST [facility] Unit Product Code [id number] 07/08/2024 12:24 PM EST [facility] Unit Number [id number] 07/08/2024 12:24 PM EST [facility] Unit ABO O 07/08/2024 12:24 PM EST [facility] Unit Rh POS 07/08/2024 12:24 PM EST [facility] Unit Crossmatch Compatible 07/08/2024 6:01 AM EST [facility] Unit Status RE 07/08/2024 12:24 PM EST [facility] Unit Blood Type OPOS 07/08/2024 12:24 PM EST [facility] Unit Expiration [id number] 07/08/2024 12:24 PM EST [facility] Unit Barcode 5100 07/08/2024 12:24 PM EST [facility] 07/08/2024 5:55 AM EST us Renetta Alejo MD BLD BANK PRODUCT ORDERABLES Edited Result - Final [facility]LO[facility] B[facility] [address] [place] [address] documented in this encounter Visit Diagnoses Diagnosis 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)- Primary 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) CAD (coronary artery disease) Coronary atherosclerosis of unspecified type of vessel, washoe or graft S/P CABG x 4 Postsurgical aortocoronary bypass status Status post surgery Heart palpitations Palpitations Encounter for fitting and adjustment of other gastrointestinal appliance and device Encounter for surgical aftercare following surgery on the circulatory system Chronic obstructive pulmonary disease, unspecified (HCC) Other nonspecific abnormal finding of lung field Chronic pulmonary edema Pulmonary congestion and hypostasis Pleural effusion, not elsewhere classified Neuropathy Mononeuritis of unspecified site Restless legs syndrome Restless legs syndrome (RLS) Presence of other specified devices Anxiety state Anxiety state, unspecified Heart failure, systolic, due to CAD Unspecified systolic heart failure Heart failure, systolic, due to CAD (HCC) Unspecified systolic heart failure COPD, group D, by GOLD 2017 classification ([facility]) Tobacco use disorder BPH without obstruction/lower urinary tract symptoms Hypertrophy of prostate without urinary obstruction and other lower urinary tract symptoms (LUTS) Esophageal reflux Dyslipidemia, goal LDL below 70 Other and unspecified hyperlipidemia Restless legs syndrome Restless legs syndrome (RLS) HTN, goal below 140/90 Unspecified essential hypertension Right renal mass Unspecified disorder of kidney and ureter Anxiety state Anxiety state, unspecified documented in this encounter Administered Medications Inactive Administered Medications - up to 3 most recent administrations Medication Order MAR Action Action Date Dose Rate Site Acetaminophen (Ofirmev) inj 1,000 mg 1,000 mg, Intravenous, ONCE, 1 dose, On Sun07/08/24 at 1615, Administer over 15 Minutes, Administer undiluted over 15 minutes! NOTE: Maximum of 4000 mg per 24 hours of acetaminophen from all acetaminophen containing products., Indication: Patient is strictly NPO Rate Verify 07/08/2024 5:00 PM EST 4,000 mg/hr 400 mL/hr New Bag 07/08/2024 4:51 PM EST 1,000 mg 400 mL/hr Acetaminophen (Tylenol) tab 975 mg 975 mg, Oral, Q8H, First dose on Sun07/08/24 at 1400, Last dose on Sun07/13/24 at 0600, For 5 days, Avoid in patients with severe hepatic impairment or severe active liver disease. Use for 5 days, Post-op Given 07/13/2024 6:20 AM EST 975 mg Given 07/12/2024 9:05 PM EST 975 mg Given 07/12/2024 1:27 PM EST 975 mg Acetaminophen (Tylenol) tab 975 mg 975 mg, Oral, Q6H PRN Pain, Mild, Starting on Sun07/13/24 at 0000, Until Sun07/15/24 at 1734, Begin after around the clock acetaminophen order discontinued (S+5). Maximum 4 g acetaminophen/day. Avoid in patients with severe hepatic impairment or severe active liver disease., Post-op albumin (human) (Plasbumin-5) 5 % infusion 12.5 g Intravenous, Please scan tongue and groove machine feeder "square" 2D barcode to record Lot/ Expiration, ONCE, 1 dose, On Sun07/09/24 at 2045 New Bag 07/09/2024 8:53 PM EST 12.5 g 250 mL/hr albumin (human) (Plasbumin-5) 5 % infusion 25 g Intravenous, Please scan tongue and groove machine feeder "square" 2D barcode to record Lot/ Expiration, ONCE, 1 dose, On Sun07/08/24 at 1300 New Bag 07/08/2024 12:30 PM EST 25 g 1000 mL/hr albumin (human) (Plasbumin-5) 5 % infusion 25 g Intravenous, Please scan tongue and groove machine feeder "square" 2D barcode to record Lot/ Expiration, ONCE, 1 dose, On Sun07/08/24 at 1345 New Bag 07/08/2024 1:34 PM EST 25 g 500 mL/hr albumin (human) (Plasbumin-5) 5 % infusion 25 g Intravenous, Please scan tongue and groove machine feeder "square" 2D barcode to record Lot/ Expiration, ONCE, 1 dose, On Sun07/08/24 at 1615 New Bag 07/08/2024 3:57 PM EST 25 g 500 mL/hr albumin (human) (Plasbumin-5) 5 % infusion 25 g Intravenous, Please scan tongue and groove machine feeder "square" 2D barcode to record Lot/ Expiration, ONCE, 1 dose, On Sun07/09/24 at 0515 New Bag 07/09/2024 5:33 AM EST 25 g 500 mL/hr albumin (human) (Plasbumin-5) 5 % infusion 25 g Intravenous, Please scan tongue and groove machine feeder "square" 2D barcode to record Lot/ Expiration, ONCE, 1 dose, On Sun07/09/24 at 0915 New Bag 07/09/2024 8:49 AM EST 25 g 500 mL/hr Albuterol Sulfate (Proventil) (2.5 MG/3ML) 0.083% inhalation solution 2.5 mg 2.5 mg, Nebulizer, Q4H PRN Dyspnea, Starting on Sun07/11/24 at 1248, Until Sun07/15/24 at 1734 albuterol-ipratropium (Duoneb) inhalation solution 3 mL 3 mL, Nebulizer, ONCE, On Sun07/08/24 at 0630, For 1 dose, 3 mL = 0.5 mg ipratropium/ 2.5 mg albuterol, Pre-Op Given 07/08/2024 6:44 AM EST 3 mL Amiodarone (Cordarone) 150 mg in dextrose 100 mL BOLUS 150 mg, Central IV, ONCE, 1 dose, On Sun07/09/24 at 0830, Administer over 10 Minutes, USE 0.22 micron inline filter New Bag 07/09/2024 8:01 AM EST 150 mg 600 mL/hr Amiodarone (Cordarone) 150 mg in dextrose 100 mL BOLUS 150 mg, Central IV, ONCE, 1 dose, On Sun07/09/24 at 0845, Administer over 10 Minutes, USE 0.22 micron inline filter Restarted 07/09/2024 8:32 AM EST 900 mg/hr 600 mL/hr New Bag 07/09/2024 8:15 AM EST 150 mg 600 mL/hr Amiodarone (Cordarone) 150 mg in dextrose 100 mL BOLUS 150 mg, Central IV, ONCE, 1 dose, On Sun07/09/24 at 0930, Administer over 10 Minutes, USE 0.22 micron inline filter New Bag 07/09/2024 8:35 AM EST 150 mg 600 mL/hr Amiodarone (Cordarone) 150 mg in dextrose 100 mL BOLUS 150 mg, Peripheral IV, ONCE, 1 dose, On Sun07/12/24 at 0645, Administer over 30 Minutes, USE 0.22 micron inline filter Give over 30 minutes New Bag 07/12/2024 6:21 AM EST 150 mg 200 mL/hr amiodarone (Cordarone) 900 mg in NSS 500 mL INFUSION Central IV, 1 mg/min (33.3333 mL/hr, rounded to 33.33 mL/hr), Amiodarone to be run using Smart pump mode: Pump is programmed to *ALERT* at 200 ml to notify of RATE change from 1mg/min to go to 0.5 mg/min. Use 0.22 micron filter., CONTINUOUS, Starting on Sun07/09/24 at 0845, Until Sun07/09/24 at 1444 Rate Verify 07/09/2024 3:00 PM EST 1 mg/min 33.33 mL/hr Rate Verify 07/09/2024 2:00 PM EST 1 mg/min 33.33 mL/hr Rate Verify 07/09/2024 1:00 PM EST 1 mg/min 33.33 mL/hr amiodarone (Cordarone) 900 mg in NSS 500 mL INFUSION Central IV, 0.5 mg/min (16.6667 mL/hr, rounded to 16.67 mL/hr), Amiodarone to be run using Smart pump mode: Pump is programmed to *ALERT* at 200 ml to notify of RATE change from 1mg/min to go to 0.5 mg/min. Use 0.22 micron filter., CONTINUOUS CALL PHARMACY TO DISPENSE, Starting on Sun07/09/24 at 1415, Until Sun07/09/24 at 2350 Rate Verify 07/09/2024 7:00 PM EST 0.5 mg/min 16.66 mL/hr Rate Verify 07/09/2024 6:00 PM EST 0.5 mg/min 16.66 mL/hr Rate Verify 07/09/2024 5:00 PM EST 0.5 mg/min 16.66 mL/hr amiodarone (Cordarone) 900 mg in NSS 500 mL INFUSION Central IV, 0.5 mg/min (16.6667 mL/hr, rounded to 16.67 mL/hr), DO NOT RENEW Amiodarone to be run using Smart pump mode: Pump is programmed to *ALERT* at 200 ml to notify of RATE change from 1mg/min to go to 0.5 mg/min. Use 0.22 micron filter., CONTINUOUS CALL PHARMACY TO DISPENSE, Starting on Sun07/10/24 at 0030, Until Sun07/10/24 at 1553 Rate Verify 07/10/2024 12:48 AM EST 0.5 mg/min 16.66 mL/hr Continue on Pump 07/10/2024 12:48 AM EST 0.5 mg/min 16.67 mL/hr amiodarone (Cordarone) tab 200 mg 200 mg, Oral, WITH MEALS, First dose (after last modification) on Sun07/11/24 at 0800, Until Discontinued Given 07/15/2024 12:16 PM EST 200 mg Given 07/15/2024 7:47 AM EST 200 mg Given 07/14/2024 5:31 PM EST 200 mg amiodarone (Cordarone) tab 400 mg 400 mg, Oral, WITH MEALS, First dose on Sun07/09/24 at 1200, Until Discontinued Given 07/10/2024 4:49 PM EST 400 mg Given 07/10/2024 11:47 AM EST 400 mg Given 07/10/2024 8:24 AM EST 400 mg amLODIPine (Norvasc) tab 5 mg 5 mg, Oral, Daily(AM), First dose on Sun07/10/24 at 1615, Until Discontinued Given 07/12/2024 9:39 AM EST 5 mg Given 07/11/2024 9:06 AM EST 5 mg Given 07/10/2024 4:01 PM EST 5 mg aspirin chew tab 81 mg 81 mg, Oral, Daily(AM), First dose on Sun07/09/24 at 0900, Until Discontinued, Start on POD#1, Post-op Given 07/09/2024 9:05 AM EST 81 mg aspirin chew tab 81 mg 81 mg, Oral, Daily(AM), First dose (after last modification) on Sun07/10/24 at 0900, Last dose on Sun07/15/24 at 0900, For 6 days, Start on POD#1, Post-op Given 07/15/2024 9:00 AM EST 81 mg Given 07/14/2024 8:39 AM EST 81 mg Given 07/13/2024 9:18 AM EST 81 mg aspirin supp 300 mg 300 mg, Rectal, ONCE, On Sun07/08/24 at 1700, For 1 dose, Refrigerate Given 07/08/2024 5:26 PM EST 300 mg atropine sulfate inj 1 mg 1 mg, IV Push, PRN Other, X1 PRN hemodynamically significant bradydysrythmias and call CT Surgeon gordon COLES, Starting on Sun07/08/24 at 1211, Until Sun07/15/24 at 1734, For 1 dose, Post-op Baclofen (Lioresal) tab 10 mg 10 mg, Oral, BID (.AM/PM), First dose on Sun07/10/24 at 0900, Until Discontinued Given 07/12/2024 9:40 AM EST 10 mg Given 07/11/2024 9:38 PM EST 10 mg Given 07/11/2024 9:05 AM EST 10 mg Bisacodyl (Dulcolax) supp 10 mg 10 mg, Rectal, DAILY PRN Constipation, Starting on Sun07/10/24 at 0800, Until Sun07/15/24 at 1734, Post-op Given 07/10/2024 3:15 PM EST 10 mg buPROPion extended release (SR) (Wellbutrin SR) tab 150 mg 150 mg, Oral, BID (.AM/PM), First dose on Sun07/09/24 at 0900, Until Discontinued, This med should NOT be Crushed or Chewed Given 07/15/2024 7:47 AM EST 150 mg Given 07/14/2024 7:41 PM EST 150 mg Given 07/14/2024 8:39 AM EST 150 mg busPIRone (Buspar) tab 5 mg 5 mg, Oral, BID (.AM/PM), First dose on Sun07/09/24 at 0900, Until Discontinued Given 07/15/2024 7:46 AM EST 5 mg Given 07/14/2024 7:40 PM EST 5 mg Given 07/14/2024 8:40 AM EST 5 mg calcium CHLORide 10 % inj 1 g 1 g, IV Push, PRN Other, Calcium Replacement, Starting on Sun07/08/24 at 1211, Until Sun07/15/24 at 1734, For 1 dose, Ionized calcium is less than 1 and MAP less than 80, Post-op calcium CHLORide 10 % inj 1 g 1 g, Intravenous, ONCE, On Sun07/08/24 at 1330, For 1 dose Given 07/08/2024 1:19 PM EST 1 g Carvedilol (Coreg) tab 3.125 mg 3.125 mg, Oral, BID (AM/PM MEALS), First dose on Sun07/10/24 at 0800, Until Discontinued, Hold for HR less than 60 or SBP below 100 and notify service if dose is held MUST BE GIVEN WITH MEAL Given 07/10/2024 8:24 AM EST 3.125 mg Carvedilol (Coreg) tab 3.125 mg 3.125 mg, Oral, ONCE, On Sun07/10/24 at 1245, For 1 dose, Hold for HR less than 60 or SBP below 100 and notify service if dose is held MUST BE GIVEN WITH MEAL Given 07/10/2024 1:06 PM EST 3.125 mg Carvedilol (Coreg) tab 3.125 mg 3.125 mg, Oral, BID (AM/PM MEALS), First dose (after last modification) on Sun07/13/24 at 0800, Until Discontinued, Hold for HR less than 60 or SBP below 100 and notify service if dose is held MUST BE GIVEN WITH MEAL Given 07/15/2024 7:47 AM EST 3.125 mg Given 07/14/2024 5:31 PM EST 3.125 mg Given 07/14/2024 8:40 AM EST 3.125 mg Carvedilol (Coreg) tab 6.25 mg 6.25 mg, Oral, BID (AM/PM MEALS), First dose (after last modification) on Samra 07/10/24 at 1700, Until Discontinued, Hold for HR less than 60 or SBP below 100 and notify service if dose is held MUST BE GIVEN WITH MEAL Given 07/12/2024 9:40 AM EST 6.25 mg Given 07/11/2024 4:50 PM EST 6.25 mg Given 07/11/2024 9:06 AM EST 6.25 mg ceFAZolin in dextrose (Ancef) ivpb 2 g 2 g, IV Piggyback, Q8H, 5 doses, First dose on Sun07/08/24 at 1930, Last dose on Sun07/10/24 at 0330, Post-op New Bag 07/10/2024 3:04 AM EST 2 g 100 mL/hr Rate Verify 07/09/2024 7:51 PM EST 4 g/hr 100 mL/thread weaver Infusion Pump 07/09/2024 7:43 PM EST 100 mL/hr chlorHEXIDINE (Periogard) 0.12 % oral rinse 15 mL 15 mL, Oral mucosal membrane, BID (799,1999), First dose on Sun07/08/24 at 2000, Until Discontinued, Include oral/gum/tooth brushing with medication. Use prepackaged oral kit suction tooth brush if available., Post-op Given 07/08/2024 7:53 PM EST 1 5 mL chlorhexidine gluconate cloth 2 % pad 1 Pad 1 Pad, External, PREOP, First dose on Sun07/08/24 at 0630, Last dose on Sun07/08/24 at 0630, For 1 dose, Cleanse surgical site area before transferring intraop, Pre-Op Given 07/08/2024 6:43 AM EST 1 Pad clopidogrel (pLAVix) tab 75 mg 75 mg, Oral, Daily(AM), First dose (after last modification) on Sun07/11/24 at 0900, Until Discontinued Given 07/15/2024 7:47 AM EST 75 mg Given 07/14/2024 8:40 AM EST 75 mg Given 07/13/2024 9:20 AM EST 75 mg CYANOCOBALAMIN (vitamin B-12) tab 1,000 mcg 1,000 mcg, Oral, Daily(AM), First dose on Sun07/10/24 at 0900, Until Discontinued Given 07/15/2024 7:47 AM EST 1,000 mcg Given 07/14/2024 8:39 AM EST 1,000 mcg Given 07/13/2024 9:20 AM EST 1,000 mcg dexmedeTOMIDine (Precedex) 400 mcg in 100 mL infusion Order Mode: Standard Titration, Starting Rate (mcg/kg/hr): 0.2, Infusion Titration Adjustments: Increase or decrease by up to 0.2 mcg/kg/hr no more frequently than every 15 minutes to maintain specified goal RASS, Maximum Dose: 1.5 mcg/kg/hr, Patient Transfer: Patient should be transferred to a higher level of care if rate exceeds nursing unit specific guidelines., Notes to Nursing: Caution in BRADYcardia and HYPOtension. Reorient the patient, assess and treat pain separately. Abort acute agitation by seeking provider assistance., 0-1.5 mcg/kg/hr 66.9 kg (0-25.0875 mL/hr, rounded to 0-25.09 mL/hr), Please select this medication from the infusion pump library, TITRATE, Starting on Sun07/08/24 at 2045, Until Sun07/09/24 at 0029, Intravenous Rate Verify 07/08/2024 11:00 PM EST 0.2 mcg/kg/hr 3.34 mL/hr Rate Verify 07/08/2024 10:00 PM EST 0.2 mcg/kg/hr 3.34 mL/ hr New Bag 07/08/2024 9:37 PM EST 0.2 mcg/kg/hr 3.35 mL/hr Docusate Sodium (Colace) cap 100 mg 100 mg, Oral, BID (.AM/PM), First dose on Sun07/09/24 at 0900, Until Discontinued, Hold and administer syrup formulation if not able to take this tab PO., Post-op Given 07/15/2024 7:47 AM EST 100 mg Given 07/14/2024 7:40 PM EST 100 mg Given 07/14/2024 8:40 AM EST 100 mg DOPamine 400 mg in D5W 100 mL INFUSION Final Conc = 4000 mcg/mL Order Mode: Non-titratable Provider Order, Comment: Max dose is 20 mcg/kg/min. Must select a DISCRETE DOSE & CONTINUOUS frequency., 3 mcg/kg/min 67.4 kg (3.033 mL/hr, rounded to 3.03 mL/hr), Central Line Only!!, TITRATE, Starting on Sun07/09/24 at 1430, Until Sun07/09/24 at 1622, Central IV Rate Verify 07/09/2024 4:00 PM EST 3 mcg/kg/min 3.03 mL/hr Rate Verify 07/09/2024 3:00 PM EST 3 mcg/kg/min 3.03 mL/hr New Bag 07/09/2024 2:17 PM EST 3 mcg/kg/min 3.03 mL/hr DOPamine 400 mg in D5W 100 mL INFUSION Final Conc = 4000 mcg/mL Order Mode: Non-titratable Provider Order, Comment: Max dose is 20 mcg/kg/min. Must select a DISCRETE DOSE & CONTINUOUS frequency., 2 mcg/kg/min 67.4 kg (2.022 mL/hr, rounded to 2.02 mL/hr), Central Line Only!!, TITRATE, Starting on Sun07/09/24 at 1700, Until Sun07/09/24 at 1706, Central IV Rate Verify 07/09/2024 5:00 PM EST 2 mcg/kg/min 2.02 mL/hr New Order/Same Bag 07/09/2024 4:27 PM EST 2 mcg/kg/min 2.0 2 mL/hr DOPamine 400 mg in D5W 100 mL INFUSION Final Conc = 4000 mcg/mL Order Mode: Non-titratable Provider Order, Comment: Max dose is 20 mcg/kg/min. Must select a DISCRETE DOSE & CONTINUOUS frequency., 3 mcg/kg/min 67.4 kg (3.033 mL/hr, rounded to 3.03 mL/hr), Central Line Only!!, TITRATE, Starting on Sun07/09/24 at 1745, Until Sun07/09/24 at 2354, Central IV Rate Verify 07/09/2024 7:00 PM EST 3 mcg/kg/min 3.03 mL/hr Rate Verify 07/09/2024 6:00 PM EST 3 mcg/kg/min 3.03 mL/hr New Order/Same Bag 07/09/2024 5:16 PM EST 3 mcg/kg/min 3.0 3 mL/hr DOPamine 400 mg in D5W 100 mL INFUSION Final Conc = 4000 mcg/mL Order Mode: Non-titratable Provider Order, Comment: Max dose is 20 mcg/kg/min. Must select a DISCRETE DOSE & CONTINUOUS frequency., 2 mcg/kg/min 67.4 kg (2.022 mL/hr, rounded to 2.02 mL/hr), Central Line Only!!, TITRATE, Starting on Sun07/10/24 at 0030, Until Sun07/10/24 at 2242, Central IV Rate Verify 07/10/2024 10:00 PM EST 2 mcg/kg/min 2.02 mL/hr New Bag 07/10/2024 9:29 PM EST 2 mcg/kg/min 2.02 mL/hr Rate Verify 07/10/2024 9:00 PM EST 2 mcg/kg/min 2.02 mL/hr DOPamine 400 mg in D5W 100 mL INFUSION Final Conc = 4000 mcg/mL Order Mode: Non-titratable Provider Order, Comment: Max dose is 20 mcg/kg/min. Must select a DISCRETE DOSE & CONTINUOUS frequency., 1 mcg/kg/min 67.4 kg (1.011 mL/hr, rounded to 1.01 mL/hr), Central Line Only!!, TITRATE, Starting on Sun07/10/24 at 2315, Until Sun07/11/24 at 0733, Central IV Rate Verify 07/11/2024 7:00 AM EST 1 mcg/kg/min 1.01 mL/hr Rate Verify 07/11/2024 6:00 AM EST 1 mcg/kg/min 1.01 mL/hr Rate Verify 07/11/2024 5:00 AM EST 1 mcg/kg/min 1.01 mL/hr Dutasteride (Avodart) cap CAPS 0.5 mg 0.5 mg, Oral, Daily(AM), First dose on Sun07/09/24 at 0900, Until Discontinued, Do NOT open, crush, or chew capsules! Given 07/15/2024 7:47 AM EST 0.5 mg Given 07/14/2024 8:38 AM EST 0.5 mg Given 07/13/2024 9:18 AM EST 0.5 mg EPINEPHrine 5000 mcg in NSS 250 ml STANDARD CONCENTRATION *20 mcg/ml* Order Mode: Standard Titration, Starting Rate (mcg/min): 2.5, Clinical Target: MAP 65-70, Infusion Titration Adjustments: Increase or Decrease by up to 2 mcg/min no more frequently than every 2 minutes to achieve specified goal, Maximum Dose: 10 mcg/min for Nurse Titration. Dose titrations 11-50 mcg/min require provider order. If administering vasopressor peripherally, please refer to the Peripheral Vasopressor Guidelines., Patient Transfer: Patient should be transferred to a higher level of care if rate exceeds nursing unit specific guidelines., 0-10 mcg/min (0-30 mL/hr), If you have reached the max rate call for the on-call CVTS MAXIME, TITRATE, Starting on Sun07/08/24 at 1245, Until Sun07/08/24 at 1437, Central IV, Post-op Rate Verify 07/08/2024 2:00 PM EST 1 mcg/min 3 mL/hr Rate Change 07/08/2024 1:44 PM EST 1 mcg/min 3 mL/hr Rate Verify 07/08/2024 1:00 PM EST 2 mcg/min 6 mL/hr Ezetimibe (Zetia) tab 10 mg 10 mg, Oral, Daily(AM), First dose on Sun07/09/24 at 0900, Until Discontinued Given 07/15/2024 7:48 AM EST 10 mg Given 07/14/2024 8:38 AM EST 10 mg Given 07/13/2024 9:18 AM EST 10 mg Famotidine (Pepcid) inj 20 mg 20 mg, Intravenous, Q12H, First dose on Sun07/08/24 at 2100, Last dose on Sun07/09/24 at 0900, For 2 doses, Start at first dose interval postop. Give IV push over 2 minutes., Post-op Given 07/09/2024 9:08 AM EST 20 mg Given 07/08/2024 7:53 PM EST 20 mg Famotidine (Pepcid) tab 20 mg 20 mg, Oral, Daily(AM), First dose on Sun07/10/24 at 0900, Until Discontinued, Post-op Given 07/15/2024 7:47 AM EST 20 mg Given 07/14/2024 8:39 AM EST 20 mg Given 07/13/2024 9:18 AM EST 20 mg Furosemide (Lasix) inj 40 mg 40 mg, IV Push, ONCE, On Sun07/09/24 at 1345, For 1 dose Given 07/09/2024 1:24 PM EST 40 mg Furosemide (Lasix) inj 40 mg 40 mg, IV Push, ONCE, On Sun07/10/24 at 0545, For 1 dose Given 07/10/2024 5:36 AM EST 40 mg Furosemide (Lasix) inj 40 mg 40 mg, IV Push, ONCE, On Sun07/11/24 at 0600, For 1 dose Given 07/11/2024 6:44 AM EST 40 mg Furosemide (Lasix) inj 40 mg 40 mg, IV Push, ONCE, On Sun07/11/24 at 1600, For 1 dose Given 07/11/2024 4:47 PM EST 40 mg Furosemide (Lasix) inj 40 mg 40 mg, IV Push, ONCE, On Sun07/12/24 at 0630, For 1 dose Given 07/12/2024 6:09 AM EST 40 mg Furosemide (Lasix) inj 40 mg 40 mg, IV Push, ONCE, On Sun07/15/24 at 0630, For 1 dose Given 07/15/2024 7:53 AM EST 40 mg Furosemide (Lasix) tab 40 mg 40 mg, Oral, Daily(AM), First dose on Sun07/13/24 at 0900, Until Discontinued Given 07/14/2024 8:39 AM EST 40 mg Given 07/13/2024 9:19 AM EST 40 mg Glycopyrrolate (Robinul) inj 0.6 mg 0.6 mg, Intravenous, ONCE PRN Other, Reversal of neuromuscular zeferino, Starting on Sun07/08/24 at 1211, Until Sun07/08/24 at 1610, For 4 hours, Available in [place]. If still chemically paralyzed after dose has been administered, contact provider for further guidance. WASTE INFO: Return waste medication to pharmacy in zip lock bag - SPC container., Post-op Given 07/08/2024 1:53 PM EST 0.6 mg hEParin inj 5,000 Units 5,000 Units, Subcutaneous, Q8H, First dose on Sun07/09/24 at 0600, Until Discontinued, Post-op Given 07/09/2024 9:36 PM EST 5,000 Units Abdomen Right Upper Given 07/09/2024 1:26 PM EST 5,000 Units A bdomen Left Upper Given 07/09/2024 5:31 AM EST 5,000 Units A bdomen Right Lower insulin REGULAR human 100 units in NSS 100 mL INFUSION Final Conc = 1 unit / mL Intravenous, at 1 mL/hr, Target Range for Blood Glucose = 100 to 130 mg/dl, CONTINUOUS, Starting on Sun07/08/24 at 1245, Until Sun07/09/24 at 0456, Post-op Rate Verify 07/09/2024 4:02 AM EST 1 Units/hr 1 mL/hr Rate Verify 07/09/2024 4:00 AM EST 1 Units/hr 1 mL/hr Rate Verify 07/09/2024 3:00 AM EST 1 Units/hr 1 mL/hr Iron Sucrose (Venofer) 300 mg in NSS 250 mL ivpb 300 mg, IV Piggyback, Daily(AM), 3 doses, First dose on Samra 07/10/24 at 0900, Last dose on Sun07/12/24 at 0900, Administer over 90 Minutes Rate Verify 07/12/2024 12:00 PM EST 200 mg/hr 180 mL/hr New Bag 07/12/2024 11:02 AM EST 300 mg 180 mL/hr Restarted 07/11/2024 11:17 AM EST 200 mg/hr 180 mL/hr Isolyte-S pH 7.4 infusion Intravenous, at 1,000 mL/hr, During 1st 12hrs postop may give Isolyte, 500ml over 30 minutes x 1. If Systolic BP less than 100 and PA diastolic less than 15: may repeat x [address] Surgeon or PA-C if not immediately effective. Plasma-LYTE 148, isolyte-S, and isolyte-S pH 7.4 are considered equivalent - including for MAR barcode scanning., PRN, 2 doses, Starting on Sun07/08/24 at 1211, Until Sun07/09/24 at 0456, Post-op New Bag 07/08/2024 6:48 PM EST 500 mL 1000 mL/hr magnesium sulfate 1 g in d5w 100mL LOCKED DOSE 1 g, IV Piggyback, PRN Other, Magnesium replacement, Starting on Sun07/08/24 at 1211, Until Sun07/15/24 at 1734, For 4 doses, 1. Serum creatinine must be less than 1.5 2. Current urine output must be greater than 30 mL/hr. Magnesium level 1.5 - 2.2: Give 1 gm over 1 hour x 1 dose Magnesium level less than 1.5: Give 1 gm over 1 hour x 2 doses Repeat serum magnesium level 1 hour after completion of 2nd dose, Post-op New Bag 07/15/2024 7:58 AM EST 1 g 100 mL/hr New Bag 07/14/2024 6:12 AM EST 1 g 100 mL/hr Rate Verify 07/12/2024 7:00 AM EST 1 g/hr 100 mL/hr Metoprolol Tartrate (Lopressor) inj 2.5 mg 2.5 mg, IV Push, ONCE, On Sun07/08/24 at 0715, For 1 dose Given 07/08/2024 6:43 AM EST 2.5 mg milrinone (PRIMACOR) 40 mg in d5w 200 mL infusion Intravenous, 0.0625 mcg/kg/min 68.4 kg (1.2825 mL/hr, rounded to 1.28 mL/hr), Please select this medication from the infusion pump library! Expires 96 hours after spiking on (date) at (hour) , CONTINUOUS, Starting on Sun07/08/24 at 1515, Until Sun07/08/24 at 1532 New Bag 07/08/2024 3:10 PM EST 0.0625 mcg/kg/min 1.28 mL/hr milrinone (PRIMACOR) 40 mg in d5w 200 mL infusion Intravenous, 0.125 mcg/kg/min 68.4 kg (2.565 mL/hr, rounded to 2.57 mL/hr), Please select this medication from the infusion pump library! Expires 96 hours after spiking on (date) at (hour) , CONTINUOUS, Starting on Sun07/08/24 at 1615, Until Sun07/08/24 at 1556 Rate Verify 07/08/2024 4:00 PM EST 0.125 mcg/kg/min 2.56 mL/hr Rate Verify 07/08/2024 3:47 PM EST 0.125 mcg/kg/min 2.56 m L/hr New Order/Same Bag 07/08/2024 3:47 PM EST 0.125 mcg/kg/min 2.57 mL/hr milrinone (PRIMACOR) 40 mg in d5w 200 mL infusion Intravenous, 0.25 mcg/kg/min 68.4 kg (5.13 mL/hr), Please select this medication from the infusion pump library! Expires 96 hours after spiking on (date) at (hour) , CONTINUOUS, Starting on Sun07/08/24 at 1630, Until Sun07/08/24 at 1625 New Order/Same Bag 07/08/2024 4:05 PM EST 0.25 mcg/kg/min 5.13 mL/hr milrinone (PRIMACOR) 40 mg in d5w 200 mL infusion Intravenous, 0.375 mcg/kg/min 68.4 kg (7.695 mL/hr, rounded to 7.7 mL/hr), Please select this medication from the infusion pump library! Expires 96 hours after spiking on (date) at (hour) , CONTINUOUS, Starting on Sun07/08/24 at 1700, Until Sun07/09/24 at 0723 Rate Change 07/09/2024 7:21 AM EST 0.25 mcg/kg/min 5.13 mL/hr Rate Verify 07/09/2024 7:00 AM EST 0.375 mcg/kg/min 7.69 m L/hr Rate Verify 07/09/2024 6:00 AM EST 0.375 mcg/kg/min 7.69 m L/hr milrinone (PRIMACOR) 40 mg in d5w 200 mL infusion Intravenous, 0.25 mcg/kg/min 68.4 kg (5.13 mL/hr), Please select this medication from the infusion pump library! Expires 96 hours after spiking on (date) at (hour) , CONTINUOUS, Starting on Sun07/09/24 at 0800, Until Sun07/09/24 at 1010 Rate Verify 07/09/2024 10:00 AM EST 0.25 mcg/kg/min 5.13 mL/hr Rate Verify 07/09/2024 9:00 AM EST 0.25 mcg/kg/min 5.13 mL /hr Rate Verify 07/09/2024 8:00 AM EST 0.25 mcg/kg/min 5.13 mL /hr milrinone (PRIMACOR) 40 mg in d5w 200 mL infusion Intravenous, 0.125 mcg/kg/min 68.4 kg (2.565 mL/hr, rounded to 2.57 mL/hr), Please select this medication from the infusion pump library! Expires 96 hours after spiking on (date) at (hour) , CONTINUOUS, Starting on Sun07/09/24 at 1045, Until Sun07/09/24 at 1342 Rate Verify 07/09/2024 1:00 PM EST 0.125 mcg/kg/min 2.56 mL/hr Rate Verify 07/09/2024 12:00 PM EST 0.125 mcg/kg/min 2.56 mL/hr Rate Verify 07/09/2024 11:00 AM EST 0.125 mcg/kg/min 2.56 mL/hr Mirtazapine (Remeron) tab 15 mg 15 mg, Oral, HS, First dose on Samra 07/10/24 at 2200, Until Discontinued Given 07/14/2024 10:19 PM EST 15 mg Given 07/13/2024 9:00 PM EST 15 mg Given 07/12/2024 9:06 PM EST 15 mg morphine sulfate inj 1 mg 1 mg, IV Push, Q2H PRN Other, Pain, Moderate; If NPO or unable to take oral medication, Starting on Sun07/08/24 at 1211, Until [facility] 07/15/24 at 1734, Post-op morphine sulfate inj 2 mg 2 mg, IV Push, Q2H PRN Other, Pain, Severe; If NPO or unable to take oral medication, Starting on Sun07/08/24 at 1211, Until Samra 07/10/24 at 0934, Post-op Given 07/08/2024 4:32 PM EST 2 mg naloxone (Narcan) 0.4 MG/ML inj 0.08 mg 0.08 mg, IV Push, PRN Other, If patient is oversedated or Respiratory Rate less than 8, Starting on Sun07/08/24 at 1211, Until [facility] 07/15/24 at 1734, Call provider if patient is oversedated or Respiratory Rate is less than 8, Post-op neostigmine methylsulfate 10 MG/10ML inj 3 mg 3 mg, Intravenous, ONCE PRN Other, Reversal of neuromuscular zeferino, Starting on Sun07/08/24 at 1211, Until Sun07/08/24 at 1610, For 4 hours, Available in [id number]. If still chemically paralyzed after dose has been administered, contact provider for further guidance., Post-op Given 07/08/2024 1:56 PM EST 3 mg nitroprusside (Nitropress) 50 mg in D5W 250 mL STANDARD CONCENTRATION 200 mcg/mL Intravenous, 0.25 mcg/kg/min 67.4 kg (5.055 mL/hr, rounded to 5.06 mL/hr), Please select this medication from the infusion pump library! PROTECT FROM LIGHT! Keep at bedrest. Titrate drip 0.1 mcg/kg/min every 5 seconds to achieve SBP < 140 to a max of 5 mcg/kg/min. If you have reached the max rate please page [phone] for further management. , CONTINUOUS, Starting on Sun07/09/24 at 1745, Until Sun07/11/24 at 0219 Rate Verify 07/11/2024 2:34 AM EST 0.25 mcg/kg/min 5.05 mL/hr Rate Verify 07/11/2024 2:00 AM EST 0.25 mcg/kg/min 5.05 mL /hr Rate Verify 07/11/2024 1:00 AM EST 0.25 mcg/kg/min 5.05 mL /hr NORepinephrine (Levophed) 4 mg in 250 ml D5W STANDARD CONCENTRATION 16 mcg/ml Order Mode: Standard Titration, Starting Rate (mcg/min): 2, Clinical Target: MAP 65-70, Infusion Titration Adjustments: Increase or Decrease by up to 5 mcg/min no more frequently than every 2 minutes to achieve specified goal, Maximum Dose: 30 mcg/min for nurse titration. Dose titrations 31-90 mcg/min require provider order. If administering vasopressor peripherally, please refer to the Peripheral Vasopressor Guidelines., Patient Transfer: Patient should be transferred to a higher level of care if rate exceeds nursing unit specific guidelines., 0-30 mcg/min (0-112.5 mL/hr), TITRATE, Starting on Sun07/08/24 at 1300, Until Sun07/08/24 at 1437, Central IV New Bag 07/08/2024 12:22 PM EST 2 mcg/min 7.5 mL/hr NORepinephrine (Levophed) 4 mg in 250 ml D5W STANDARD CONCENTRATION 16 mcg/ml Order Mode: Standard Titration, Starting Rate (mcg/min): 2, Clinical Target: MAP 65-70, Infusion Titration Adjustments: Increase or Decrease by up to 5 mcg/min no more frequently than every 2 minutes to achieve specified goal, Maximum Dose: 30 mcg/min for nurse titration. Dose titrations 31-90 mcg/min require provider order. If administering vasopressor peripherally, please refer to the Peripheral Vasopressor Guidelines., Patient Transfer: Patient should be transferred to a higher level of care if rate exceeds nursing unit specific guidelines., 0-30 mcg/min (0-112.5 mL/hr), TITRATE, Starting on Sun07/08/24 at 1900, Until 1/1/25 at 2354, Central IV Rate Change 07/09/2024 2:34 PM EST 2 mcg/min 7.5 mL/hr Rate Change 07/09/2024 2:32 PM EST 4 mcg/min 15 mL/hr Rate Change 07/09/2024 2:25 PM EST 2 mcg/min 7.5 mL/hr Oral Hygiene: Mouth Swab with dentifrice Oral, Q4H LIMITED (00;04;12;16), First dose on Sun07/08/24 at 1600, Until Discontinued, To be used with 1.5% hydrogen peroxide solution or 0.05% cetylpyridium chloride oral rinse, Post-op Given 07/10/2024 3:06 AM EST 1 Kit Given 07/10/2024 12:00 AM EST Given 07/09/2024 4:00 PM EST oxyCODONE (Oxy IR) tab 5 mg 5 mg, Oral, Q4H PRN Pain, Severe, Starting on Sun07/08/24 at 1213, Until Sun07/15/24 at 1734, Post-op Given 07/10/2024 11:47 AM EST 5 mg oxygen GAS Inhalation, OXYGEN, First dose on Sun07/08/24 at 1600, Until Discontinued, Device/Managed by: NIV or Ventilator Device, Goal SPO2 (%): 94 or greater, Notify Provider: For sudden DECREASE in resting SPO2 to less than 85% and when escalating delivery device., Initial FiO2 (%): 100, Titration Interval: Q2 minutes and as needed., If PO2 is greater than 300, decrease to 50% FiO2. If PO2 is 200-300, decrease to 60% FiO2. If PO2 is 150-200, decrease to 70% FiO2. If PO2 is 100-150, decrease to 80% FiO2. Always maintain saturations 95% or greater Changes can also be made by Resp Therapy per Vent Weaning Protocol Oxygen On 07/09/2024 12:00 AM EST Oxygen On 07/08/2024 4:00 PM EST 50 %(Oxygen) oxygen GAS Inhalation, OXYGEN, First dose on Sun07/08/24 at 1600, Until Discontinued, Device/Managed by: Low Flow Device, Goal SPO2 (%): 91-95, Starting Device: Nasal Cannula, Initial Flow Rate (LPM): 2. Apply post extubation., Lowest Support: Nasal Cannula: Flow 0-6 LPM. Titrate up/down by 1 LPM., Titration Interval: Q2 minutes and as needed., Notify Provider: For sudden DECREASE in resting SPO2 to less than 85% and when escalating delivery device., Wean patient off Oxygen when the oxygen saturation is greater than or equal to 93% Oxygen On 07/15/2024 8:00 AM EST Oxygen On 07/15/2024 12:00 AM EST Oxygen On 07/14/2024 4:00 PM EST 2 L/min(Oxygen) oxygen GAS Inhalation, OXYGEN, First dose on Sun07/09/24 at 0100, Until Discontinued, Device/Managed by: NIV or Ventilator Device, Goal SPO2 (%): 91-95, Notify Provider: For sudden DECREASE in resting SPO2 to less than 85% and when escalating delivery device., Initial FiO2 (%): 40, Titration Interval: Q2 minutes and as needed., Wean patient off Oxygen when the oxygen saturation is greater than or equal to 93% Oxygen On 07/09/2024 1:00 AM EST pantoprazole (Protonix) tab 40 mg 40 mg, Oral, Daily(AM), First dose on Sun07/09/24 at 0900, Until Discontinued, This med should NOT be Crushed or Chewed Given 07/15/2024 7:47 AM EST 40 mg Given 07/14/2024 8:39 AM EST 40 mg Given 07/13/2024 9:18 AM EST 40 mg Polyethylene Glycol 3350 (Miralax) oral powder 17 g 17 g (1 Packet), Oral, Daily(AM), First dose on Sun07/11/24 at 0900, Until Discontinued, Mix in 8 oz of water, juice, soda, coffee, or tea. Given 07/12/2024 9:43 AM EST 17 g Given 07/11/2024 9:07 AM EST 17 g potassium chloride 20 mEq in 50 mL ivpb LOCKED DOSE 20 mEq, Central IV, PRN, Starting on Sun07/08/24 at 1211, Until Sun07/13/24 at 1210, Other, Potassium repletion, Administer over 60 Minutes, Patients MUST meet ALL the following criteria. IF ANY criteria are not met, Do Not Administer, and call covering provider for orders 1. Serum creatinine must be less than 1.5 2. Current urine output must be greater than 30 mL/hr. Potassium repletion based on level 4.0 - 4.2: infuse 20mEq/50mL over one hour x 1 dose 3.5 - 3.9: infuse 20mEq/50mL over one hour x 2 doses 3.0 - 3.4: infuse 20mEq/50mL over one hour x 3 doses If Potassium less than 3.0, Begin 20mEq/50mL over 30 minutes x 1 dose and Immediately call covering provider for orders., Post-op Rate Verify 07/08/2024 4:00 PM EST 20 mEq/hr 50 mL/hr New Bag 07/08/2024 3:33 PM EST 20 mEq 50 mL/hr potassium chloride ER tab 20 mEq 20 mEq, Oral, PRN Other, Potassium repletion, Starting on Sun07/08/24 at 1211, Until Sun07/15/24 at 1734, Patients MUST meet ALL the following criteria. IF ANY criteria are not met, Do Not Administer, and call covering provider for orders 1. Serum creatinine must be less than 1.5 2. Current urine output must be greater than 30 mL/hr. 3. Patient is taking medications by mouth (PO). Potassium repletion based on level 4.0 - 4.2, Give 20mEq x 1 dose 3.5 - 3.9, Give 20mEq every 2 hours x 2 doses 3.0 - 3.4, Give 20mEq every 2 hours x 3 doses If potassium is less than 3.0, Give 20mEq x1 dose and immediately call the covering provider for orders. 4. BMP result must be no older than 24 hours., Post-op Given 07/14/2024 6:06 AM EST 20 mEq Given 07/12/2024 9:39 AM EST 20 mEq Given 07/12/2024 6:09 AM EST 20 mEq potassium chloride ER tab 20 mEq 20 mEq, Oral, ONCE, On Sun07/09/24 at 1345, For 1 dose, This med should NOT be Crushed or Chewed Given 07/09/2024 1:22 PM EST 20 mEq potassium chloride ER tab 20 mEq 20 mEq, Oral, ONCE, On Samra 07/10/24 at 0545, For 1 dose, This med should NOT be Crushed or Chewed Given 07/10/2024 5:36 AM EST 20 mEq potassium chloride ER tab 20 mEq 20 mEq, Oral, ONCE, On Sun07/11/24 at 1600, For 1 dose, This med should NOT be Crushed or Chewed Given 07/11/2024 4:50 PM EST 20 mEq potassium chloride ER tab 20 mEq 20 mEq, Oral, ONCE, On Sun07/12/24 at 0630, For 1 dose, This med should NOT be Crushed or Chewed Given 07/12/2024 6:09 AM EST 20 mEq potassium chloride ER tab 20 mEq 20 mEq, Oral, Daily(AM), First dose on Sun07/13/24 at 0900, Until Discontinued, This med should NOT be Crushed or Chewed Given 07/14/2024 8:40 AM EST 20 mEq Given 07/13/2024 9:19 AM EST 20 mEq potassium chloride ER tab 20 mEq 20 mEq, Oral, ONCE, On Sun07/15/24 at 0630, For 1 dose, This med should NOT be Crushed or Chewed Given 07/15/2024 7:47 AM EST 20 mEq potassium CHLORide liquid 20 mEq 20 mEq, Oral, ONCE, On Sun07/11/24 at 0600, For 1 dose, To avoid GI irritation, must further diilute 15 ml in 3 ounces H2O or other fluid Given 07/11/2024 6:44 AM EST 20 mEq Pregabalin (Lyrica) cap 75 mg 75 mg, Oral, Daily(AM), First dose on Sun07/11/24 at 0900, Until Discontinued Given 07/15/2024 7:47 AM EST 75 mg Given 07/14/2024 8:40 AM EST 75 mg Given 07/13/2024 9:19 AM EST 75 mg Pregabalin (Lyrica) cap 75 mg 75 mg, Oral, [id number], First dose on Sun07/11/24 at 2100, Until Discontinued Given 07/14/2024 7:41 PM EST 75 mg Given 07/13/2024 9:00 PM EST 75 mg Given 07/12/2024 9:06 PM EST 75 mg vitamins plus 1 mg folic acid tab 1 Tablet 1 Tablet, Oral, DAILY NOON, First dose on Sun07/09/24 at 1200, Until Discontinued, Post-op Given 07/15/2024 12:15 PM EST 1 Tablet Given 07/14/2024 1:32 PM EST 1 Tablet Given 07/13/2024 12:51 PM EST 1 Tablet Propofol 10 mg/mL (1%) infusion Order Mode: Standard Titration, Starting Rate (mcg/kg/min): 5, Infusion Titration Adjustments: Increase or decrease by up to 10 mcg/kg/min no more frequently than every 5 minutes to maintain specified goal RASS, Maximum Dose: 50 mcg/kg/min for nurse titration. Dose titrations 51-80 mcg/kg/min require provider order., Notes to Nursing: Reorient the patient, assess and treat pain separately. Abort acute agitation by seeking provider assistance., 0-50 mcg/kg/min 68.4 kg (0-20.52 mL/hr), Wean to off when patient meets criteria outlined in the Cardiac Surgery Ventilator Weaning Protocol. Sedation Vacation Daily., TITRATE, Starting on Sun07/08/24 at 1245, Until Sun07/09/24 at 0029, Intravenous, Post-op Rate Change 07/08/2024 3:10 PM EST 5 mcg/kg/min 2.05 mL/hr Rate Verify 07/08/2024 3:00 PM EST 10 mcg/kg/min 4.1 mL/hr Rate Change 07/08/2024 2:37 PM EST 10 mcg/kg/min 4.1 mL/hr rOPINIRole (Requip) tab 0.5 mg 0.5 mg, Oral, TID(AM/NOON/HS), First dose on Sun07/09/24 at 0600, Until Discontinued Given 07/15/2024 12:16 PM EST 0.5 mg Given 07/15/2024 5:12 AM EST 0.5 mg Given 07/14/2024 10:19 PM EST 0.5 mg rosuvastatin (Crestor) tab 40 mg 40 mg, Oral, Daily(AM), First dose on Sun07/09/24 at 0900, Until Discontinued Given 07/15/2024 7:46 AM EST 40 mg Given 07/14/2024 8:40 AM EST 40 mg Given 07/13/2024 9:20 AM EST 40 mg senna (Senokot) 1 Tablet 1 Tablet, Oral, BID (.AM/PM), First dose on Sun07/09/24 at 0900, Until Discontinued, Hold if patient develops diarrhea or has greater than 2 BMs in any one day., Post-op Given 07/15/2024 7:47 AM EST 1 Tablet Given 07/14/2024 7:40 PM EST 1 Tablet Given 07/14/2024 8:40 AM EST 1 Tablet sodium bicarbonate 8.4 % inj 50 mEq 50 mEq, IV Push, ONCE, On Sun07/08/24 at 1730, For 1 dose Given 07/08/2024 4:58 PM EST 50 mEq sodium chloride 0.9 % flush central line 10 mL 10 mL, IV Push, Q8H, First dose on Sun07/08/24 at 1400, Until Discontinued, Capped Central Line Ports, Post-op Given 07/11/2024 2:00 PM EST 10 mL Given 07/10/2024 2:00 PM EST 10 mL Given 07/09/2024 2:00 PM EST 10 mL sodium chloride 0.9 % flush peripheral tang 3 mL 3 mL, IV Push, Q8H, First dose on Sun07/08/24 at 1400, Until Discontinued, Do not flush if lock, PICC, or central line not in place; IV infusing or unable to flush., Post-op Given 07/15/2024 6:00 AM EST 3 mL Given 07/14/2024 10:00 PM EST 3 mL Given 07/14/2024 2:00 PM EST 3 mL tamsulosin (Flomax) cap 0.4 mg 0.4 mg, Oral, Daily(AM), First dose on Sun07/09/24 at 0900, Until Discontinued, Administer 30 min after meal. This med should NOT be Crushed or Chewed or opened! ORAL administration only!! Given 07/15/2024 7:46 AM EST 0.4 mg Given 07/14/2024 8:39 AM EST 0.4 mg Given 07/13/2024 9:19 AM EST 0.4 mg traMADol (Ultram) tab 25 mg 25 mg, Oral, Q6H PRN Pain, Moderate, Starting on Sun07/09/24 at 0600, Until Sun07/15/24 at 1734, Post-op traMADol (Ultram) tab 25 mg 25 mg, Oral, Q6H, First dose on Sun07/09/24 at 0600, Last dose on Sun07/10/24 at 0000, For 4 doses, Post-op Given 07/09/2024 11:32 PM EST 25 mg Given 07/09/2024 5:23 PM EST 25 mg Given 07/09/2024 12:19 PM EST 25 mg trimethobenzamide (Tigan) inj 100 mg 100 mg, Intramuscular, Q6H PRN Nausea, Vomiting, Starting on Sun07/09/24 at 1436, Until Sun07/15/24 at 1734 Given 07/09/2024 3:35 PM EST 100 mg Delto id Left Lower warfarin check daily dose (PHARMACIST MANAGED) [id number], First dose on Sun07/09/24 at 1500, Until Discontinued, Routine, Contact the pharmacy if there is not a warfarin dose entered by 1500 and document with whom it was discussed. Warfarin Sodium (Coumadin) tab 1 mg 1 mg, Oral, QPM-1999, First dose on Samra 07/10/24 at 1999, Last dose on Sun07/10/24 at 1999, For 1 day, WASTE INFO: Return packaging and waste medication in zip lock bag to pharmacy - [facility] container. Given 07/10/2024 9:14 PM EST 1 mg Warfarin Sodium (Coumadin) tab 1 mg 1 mg, Oral, QPM-1999, First dose on 07/12/24 at 1999, Last dose on 07/12/24 at 1999, For 1 day, WASTE INFO: Return packaging and waste medication in zip lock bag to pharmacy - [facility] container. Given 07/12/2024 9:06 PM EST 1 mg Warfarin Sodium (Coumadin) tab 2 mg 2 mg, Oral, QPM-1999, First dose on 07/13/24 at 1999, Last dose on 07/13/24 at 1999, For 1 day, WASTE INFO: Return packaging and waste medication in zip lock bag to pharmacy - [facility] container. Given 07/13/2024 9:00 PM EST 2 mg Warfarin Sodium (Coumadin) tab 2 mg 2 mg, Oral, QPM-1999, First dose on Sun07/14/24 at 1999, Last dose on Sun07/14/24 at 1999, For 1 day, WASTE INFO: Return packaging and waste medication in zip lock bag to pharmacy - [facility] container. Given 07/14/2024 7:40 PM EST 2 mg Warfarin Sodium (Coumadin) tab 2.5 mg 2.5 mg, Oral, QPM-1999, First dose on Sun07/09/24 at 1999, Last dose on Sun07/09/24 at 1999, For 1 day, WASTE INFO: Return packaging and waste medication in zip lock bag to pharmacy - [facility] container. Given 07/09/2024 7:42 PM EST 2.5 mg documented in this encounter Active and Recently Administered Medications Times are shown in EST. Scheduled Medication Order 07/13/2024 07/14/2024 07/15/2024 Acetaminophen (Tylenol) tab 975 mg () 975 mg, Oral, Q8H, First dose on Sun07/08/24 at 1400, Last dose on Sun07/13/24 at 0600, For 5 days, Avoid in patients with severe hepatic impairment or severe active liver disease. Use for 5 days, Post-op 0620 (Given - Provider: Zeferino Barth RN) amiodarone (Cordarone) tab 200 mg 200 mg, Oral, WITH MEALS, First dose (after last modification) on Sun07/11/24 at 0800, Until Discontinued 0920 (Given - Provider: Usha Persaud LPN)1251 (Given - Provider: Usah Persaud LPN)1759 (Given - Provider: Usha Persaud LPN) 0839 (Given - Provider: Wellington Uribe RN)1331 (Given - Provider: Wellington Uribe RN)1731 (Given - Provider: Wellington Uribe RN) 0747 (Given - Provider: Trice Keene, KEILA)1216 (Given - Provider: Trice Keene, RN) aspirin chew tab 81 mg (COMPLETED) 81 mg, Oral, Daily(AM), First dose (after last modification) on Sun07/10/24 at 0900, Last dose on Sun07/15/24 at 0900, For 6 days, Start on POD#1, Post-op 0918 (Given - Provider: Usha Persaud LPN) 0839 (Given - Provider: eWllington Uribe RN) 0900 (Given - Provider: Trice Keene, KEILA) buPROPion extended release (SR) (Wellbutrin SR) tab 150 mg 150 mg, Oral, BID (.AM/PM), First dose on Sun07/09/24 at 0900, Until Discontinued, This med should NOT be Crushed or Chewed 0918 (Given - Provider: Usha Persaud LPN)2100 (Given - Provider: Zeferino Barth, RN) 0839 (Given - Provider: Wellington Uribe RN)194 (Given - Provider: Dania Cuellar, RN) 0747 (Given - Provider: Trice Keene, RN) busPIRone (Buspar) tab 5 mg 5 mg, Oral, BID (.AM/PM), First dose on Sun07/09/24 at 0900, Until Discontinued 918 (Given - Provider: Usha Persaud LPN)2100 (Given - Provider: Zeferino Barth RN) 0840 (Given - Provider: Wellington Uribe RN)194 (Given - Provider: Dania Cuellar, RN) 0746 (Given - Provider: Trice Keene, RN) Carvedilol (Coreg) tab 3.125 mg 3.125 mg, Oral, BID (AM/PM MEALS), First dose (after last modification) on Sun07/13/24 at 0800, Until Discontinued, Hold for HR less than 60 or SBP below 100 and notify service if dose is held MUST BE GIVEN WITH MEAL 918 (Given - Provider: Usha Persaud LPN)175 (Given - Provider: Usha Persaud LPN) 0840 (Given - Provider: Wellington Uribe RN)1731 (Given - Provider: Wellington Uribe RN) 0747 (Given - Provider: Trice Keene RN) clopidogrel (pLAVix) tab 75 mg 75 mg, Oral, Daily(AM), First dose (after last modification) on Sun07/11/24 at 0900, Until Discontinued 919 (Given - Provider: Usha Persaud LPN) 0840 (Given - Provider: Wellington Uribe RN) 0747 (Given - Provider: Trice Keene RN) CYANOCOBALAMIN (vitamin B-12) tab 1,000 mcg 1,000 mcg, Oral, Daily(AM), First dose on Sun07/10/24 at 0900, Until Discontinued 919 (Given - Provider: Usha Persaud LPN) 0839 (Given - Provider: Wellington Uribe RN) 0747 (Given - Provider: Trice Keene, RN) Docusate Sodium (Colace) cap 100 mg(Linked Group 1) 100 mg, Oral, BID (.AM/PM), First dose on Sun07/09/24 at 0900, Until Discontinued, Hold and administer syrup formulation if not able to take this tab PO., Post-op 0900 (Not Given - Provider: Usha Persaud LPN - Reason: Parameter(s) Not Met)2100 (Not Given - Provider: Zeferino Barth RN - Reason: Parameter(s) Not Met) 0840 (Given - Provider: Wellington Uribe RN)1940 (Given - Provider: Dania Cuellar RN) 0747 (Given - Provider: Trice Keene RN) Dutasteride (Avodart) cap CAPS 0.5 mg 0.5 mg, Oral, Daily(AM), First dose on Sun07/09/24 at 0900, Until Discontinued, Do NOT open, crush, or chew capsules! 0918 (Given - Provider: Usha Persaud LPN) 0838 (Given - Provider: Wellington Uribe RN) 0747 (Given - Provider: Trice Keene RN) Ezetimibe (Zetia) tab 10 mg 10 mg, Oral, Daily(AM), First dose on Sun07/09/24 at 0900, Until Discontinued 917 (Given - Provider: Usha Persaud LPN) 0838 (Given - Provider: Wellington Uribe RN) 0748 (Given - Provider: Trice Keene RN) Famotidine (Pepcid) tab 20 mg(Linked Group 2) 20 mg, Oral, Daily(AM), First dose on Sun07/10/24 at 0900, Until Discontinued, Post-op 09 (Given - Provider: Usha Persaud LPN) 0839 (Given - Provider: Wellington Uribe RN) 0747 (Given - Provider: Trice Keene RN) Furosemide (Lasix) inj 40 mg (COMPLETED) 40 mg, IV Push, ONCE, On Sun07/15/24 at 0630, For 1 dose 0753 (Given - Provider: Trice Keene, RN) Furosemide (Lasix) tab 40 mg (CANCELED) 40 mg, Oral, Daily(AM), First dose on Sun07/13/24 at 0900, Until Discontinued 0919 (Given - Provider: Usha Persaud LPN) 0839 (Given - Provider: Wellington Uribe RN) Mirtazapine (Remeron) tab 15 mg 15 mg, Oral, HS, First dose on Sun07/10/24 at 2200, Until Discontinued 2100 (Given - Provider: Zeferino Barth RN) 2218 (Given - Provider: Dania Cuellar, KEILA) oxygen GAS Inhalation, OXYGEN, First dose on Sun07/08/24 at 1600, Until Discontinued, Device/Managed by: Low Flow Device, Goal SPO2 (%): 91-95, Starting Device: Nasal Cannula, Initial Flow Rate (LPM): 2. Apply post extubation., Lowest Support: Nasal Cannula: Flow 0-6 LPM. Titrate up/down by 1 LPM., Titration Interval: Q2 minutes and as needed., Notify Provider: For sudden DECREASE in resting SPO2 to less than 85% and when escalating delivery device., Wean patient off Oxygen when the oxygen saturation is greater than or equal to 93% 0000 (Oxygen On - Provider: Zeferino Barth RN)0800 (Oxygen On - Provider: Usha Persaud LPN)1600 (Oxygen On - Provider: Usha Persaud LPN) 0000 (Oxygen On - Provider: Zeferino Barth RN)0800 (Oxygen On - Provider: Wellington Uribe RN)1600 (Oxygen On - Provider: Wellington Uribe RN) 0000 (Oxygen On - Provider: Joceline Vega RN)0800 (Oxygen On - Provider: Trice Keene, RN) pantoprazole (Protonix) tab 40 mg 40 mg, Oral, Daily(AM), First dose on Sun07/09/24 at 0900, Until Discontinued, This med should NOT be Crushed or Chewed 0918 (Given - Provider: Usha Persaud LPN) 0839 (Given - Provider: Wellington Uribe RN) 0747 (Given - Provider: Trice Keene, RN) potassium chloride ER tab 20 mEq (CANCELED) 20 mEq, Oral, Daily(AM), First dose on Sun07/13/24 at 0900, Until Discontinued, This med should NOT be Crushed or Chewed 0919 (Given - Provider: Usha Persaud LPN) 0840 (Given - Provider: Wellington Uribe RN) potassium chloride ER tab 20 mEq (COMPLETED) 20 mEq, Oral, ONCE, On Sun07/15/24 at 0630, For 1 dose, This med should NOT be Crushed or Chewed 0747 (Given - Provider: Trice Keene, RN) Pregabalin (Lyrica) cap 75 mg 75 mg, Oral, Daily(AM), First dose on Sun07/11/24 at 0900, Until Discontinued 0919 (Given - Provider: Usha Persaud LPN) 0840 (Given - Provider: Wellington Uribe RN) 0747 (Given - Provider: Trice Keene RN) Pregabalin (Lyrica) cap 75 mg 75 mg, Oral, [id number], First dose on Sun07/11/24 at 2100, Until Discontinued 2100 (Given - Provider: Zeferino Barth RN) 194 (Given - Provider: Dania Cuellar, KEILA) vitamins plus 1 mg folic acid tab 1 Tablet 1 Tablet, Oral, DAILY NOON, First dose on Sun07/09/24 at 1200, Until Discontinued, Post-op 1251 (Given - Provider: Usha Persaud LPN) 1332 (Given - Provider: Wellington Uribe RN) 1215 (Given - Provider: Trice Keene RN) rOPINIRole (Requip) tab 0.5 mg 0.5 mg, Oral, TID(AM/NOON/HS), First dose on Sun07/09/24 at 0600, Until Discontinued 0620 (Given - Provider: Zeferino Barth RN)1251 (Given - Provider: Usha Persaud LPN)2100 (Given - Provider: Zeferino Barth RN) 0606 (Given - Provider: Zeferino Barth RN)1332 (Given - Provider: Wellington Uribe RN)2219 (Given - Provider: Dania Cuellar, KEILA) 0512 (Given - Provider: Joceline Vega RN)1216 (Given - Provider: Trice Keene RN) rosuvastatin (Crestor) tab 40 mg 40 mg, Oral, Daily(AM), First dose on Sun07/09/24 at 0900, Until Discontinued 0920 (Given - Provider: Usha Persaud LPN) 0840 (Given - Provider: Wellington Uribe RN) 0746 (Given - Provider: Trice Keene RN) senna (Senokot) 1 Tablet(Linked Group 3) 1 Tablet, Oral, BID (.AM/PM), First dose on Sun07/09/24 at 0900, Until Discontinued, Hold if patient develops diarrhea or has greater than 2 BMs in any one day., Post-op 0900 (Not Given - Provider: Usha Persaud LPN - Reason: Parameter(s) Not Met)2100 (Not Given - Provider: Zeferino Barth RN - Reason: Parameter(s) Not Met) 0840 (Given - Provider: Wellington Uribe RN)1940 (Given - Provider: Dania Cuellar RN) 0747 (Given - Provider: Trice Keene RN) sodium chloride 0.9 % flush central line 10 mL 10 mL, IV Push, Q8H, First dose on Sun07/08/24 at 1400, Until Discontinued, Capped Central Line Ports, Post-op 0600 (Not Given - Provider: Zeferino Barth RN - Reason: Parameter(s) Not Met)1400 (Not Given - Provider: Usha Persaud LPN - Reason: Parameter(s) Not Met)2200 (Not Given - Provider: Zeferino Barth RN - Reason: Parameter(s) Not Met) 0600 (Not Given - Provider: Zeferino Barth RN - Reason: Parameter(s) Not Met)1400 (Not Given - Provider: Wellington Uribe RN - Reason: Parameter(s) Not Met)2200 (Not Given - Provider: Dania Cuellar RN - Reason: Parameter(s) Not Met) 0600 (Not Given - Provider: Joceline Vega RN - Reason: Parameter(s) Not Met) sodium chloride 0.9 % flush peripheral tang 3 mL 3 mL, IV Push, Q8H, First dose on Sun07/08/24 at 1400, Until Discontinued, Do not flush if lock, PICC, or central line not in place; IV infusing or unable to flush., Post-op 0600 (Given - Provider: Zeferino Barth RN)1253 (Given - Provider: Usha Persaud LPN)2200 (Given - Provider: Zeferino Barth RN) 0600 (Given - Provider: Zeferino Barth RN)1400 (Given - Provider: Wellington Uribe RN)2200 (Given - Provider: Dania Cuellar, RN) 0600 (Given - Provider: Joceline Vega, KEILA) tamsulosin (Flomax) cap 0.4 mg 0.4 mg, Oral, Daily(AM), First dose on Sun07/09/24 at 0900, Until Discontinued, Administer 30 min after meal. This med should NOT be Crushed or Chewed or opened! ORAL administration only!! 0919 (Given - Provider: Usha Persaud LPN) 0839 (Given - Provider: Wellington Uribe RN) 0746 (Given - Provider: Trice Keene RN) warfarin check daily dose (PHARMACIST MANAGED) [id number], First dose on Sun07/09/24 at 1500, Until Discontinued, Routine, Contact the pharmacy if there is not a warfarin dose entered by 1500 and document with whom it was discussed. 1500 (Order Check Addressed - Provider: Usha Persaud LPN) 1500 (Order Check Addressed - Provider: Wellington Uribe RN) Warfarin Sodium (Coumadin) tab 2 mg (COMPLETED) 2 mg, Oral, QPM-1999, First dose on 07/13/24 at 1999, Last dose on 07/13/24 at 1999, For 1 day, WASTE INFO: Return packaging and waste medication in zip lock bag to pharmacy - [facility] container. 2100 (Given - Provider: Zeferino Barth RN) Warfarin Sodium (Coumadin) tab 2 mg (COMPLETED) 2 mg, Oral, QPM-1999, First dose on Sun07/14/24 at 1999, Last dose on Sun07/14/24 at 1999, For 1 day, WASTE INFO: Return packaging and waste medication in zip lock bag to pharmacy - [facility] container. 1940 (Given - Provider: Dania M Reinard, RN) PRN Medication Order 07/13/2024 07/14/2024 07/15/2024 Acetaminophen (Tylenol) tab 975 mg 975 mg, Oral, Q6H PRN Pain, Mild, Starting on Sun07/13/24 at 0000, Until Sun07/15/24 at 1734, Begin after around the clock acetaminophen order discontinued (S+5). Maximum 4 g acetaminophen/day. Avoid in patients with severe hepatic impairment or severe active liver disease., Post-op Albuterol Sulfate (Proventil) (2.5 MG/3ML) 0.083% inhalation solution 2.5 mg 2.5 mg, Nebulizer, Q4H PRN Dyspnea, Starting on Sun07/11/24 at 1248, Until Sun07/15/24 at 1734 atropine sulfate inj 1 mg 1 mg, IV Push, PRN Other, X1 PRN hemodynamically significant bradydysrythmias and call CT Surgeon gordon COLES, Starting on Sun07/08/24 at 1211, Until Sun07/15/24 at 1734, For 1 dose, Post-op Bisacodyl (Dulcolax) supp 10 mg 10 mg, Rectal, DAILY PRN Constipation, Starting on Samra 07/10/24 at 0800, Until Sun07/15/24 at 1734, Post-op calcium CHLORide 10 % inj 1 g 1 g, IV Push, PRN Other, Calcium Replacement, Starting on Sun07/08/24 at 1211, Until Sun07/15/24 at 1734, For 1 dose, Ionized calcium is less than 1 and MAP less than 80, Post-op magnesium sulfate 1 g in d5w 100mL LOCKED DOSE 1 g, IV Piggyback, PRN Other, Magnesium replacement, Starting on Sun07/08/24 at 1211, Until Sun07/15/24 at 1734, For 4 doses, 1. Serum creatinine must be less than 1.5 2. Current urine output must be greater than 30 mL/hr. Magnesium level 1.5 - 2.2: Give 1 gm over 1 hour x 1 dose Magnesium level less than 1.5: Give 1 gm over 1 hour x 2 doses Repeat serum magnesium level 1 hour after completion of 2nd dose, Post-op 0612 (New Bag - Provider: Zeferino Barth RN)0712 (Stopped - Provider: Wellington Uribe RN) 0758 (New Bag - Provider: Trice Keene RN)1734 (Due: Stopped) morphine sulfate inj 1 mg 1 mg, IV Push, Q2H PRN Other, Pain, Moderate; If NPO or unable to take oral medication, Starting on Sun07/08/24 at 1211, Until Sun07/15/24 at 1734, Post-op naloxone (Narcan) 0.4 MG/ML inj 0.08 mg 0.08 mg, IV Push, PRN Other, If patient is oversedated or Respiratory Rate less than 8, Starting on Sun07/08/24 at 1211, Until Sun07/15/24 at 1734, Call provider if patient is oversedated or Respiratory Rate is less than 8, Post-op oxyCODONE (Oxy IR) tab 5 mg 5 mg, Oral, Q4H PRN Pain, Severe, Starting on Sun07/08/24 at 1213, Until Sun07/15/24 at 1734, Post-op potassium chloride ER tab 20 mEq 20 mEq, Oral, PRN Other, Potassium repletion, Starting on Sun07/08/24 at 1211, Until Sun07/15/24 at 1734, Patients MUST meet ALL the following criteria. IF ANY criteria are not met, Do Not Administer, and call covering provider for orders 1. Serum creatinine must be less than 1.5 2. Current urine output must be greater than 30 mL/hr. 3. Patient is taking medications by mouth (PO). Potassium repletion based on level 4.0 - 4.2, Give 20mEq x 1 dose 3.5 - 3.9, Give 20mEq every 2 hours x 2 doses 3.0 - 3.4, Give 20mEq every 2 hours x 3 doses If potassium is less than 3.0, Give 20mEq x1 dose and immediately call the covering provider for orders. 4. BMP result must be no older than 24 hours., Post-op 0606 (Given - Provider: Zeferino Barth RN) traMADol (Ultram) tab 25 mg 25 mg, Oral, Q6H PRN Pain, Moderate, Starting on Sun07/09/24 at 0600, Until Sun07/15/24 at 1734, Post-op trimethobenzamide (Tigan) inj 100 mg 100 mg, Intramuscular, Q6H PRN Nausea, Vomiting, Starting on Sun07/09/24 at 1436, Until Sun07/15/24 at 1734 Linked Groups Order Group 1: Docusate Sodium (Colace) cap 100 mgJump to med 100 mg, Oral, BID (.AM/PM), First dose on Sun07/09/24 at 0900, Until Discontinued, Hold and administer syrup formulation if not able to take this tab PO., Post-op Or Docusate Sodium (Colace) oral liquid 100 mg (CANCELED) 100 mg, NG Tube, BID (.AM/PM), First dose on Sun07/09/24 at 0900, Until Discontinued, Post-op Group 2: Famotidine (Pepcid) inj 20 mg (COMPLETED) 20 mg, Intravenous, Q12H, First dose on Sun07/08/24 at 2100, Last dose on Sun07/09/24 at 0900, For 2 doses, Start at first dose interval postop. Give IV push over 2 minutes., Post-op Followed by Famotidine (Pepcid) tab 20 mgJump to med 20 mg, Oral, Daily(AM), First dose on Sun07/10/24 at 0900, Until Discontinued, Post-op Group 3: senna (Senokot) 1 TabletJump to med 1 Tablet, Oral, BID (.AM/PM), First dose on Sun07/09/24 at 0900, Until Discontinued, Hold if patient develops diarrhea or has greater than 2 BMs in any one day., Post-op Or senna (Senokot) 1 Tablet (CANCELED) 1 Tablet, NG Tube, BID (.AM/PM), First dose on Sun07/09/24 at 0900, Until Discontinued, Hold if patient develops diarrhea or has greater than 2 bm's in any one day., Post-op documented in this encounter Advance Directives * Full Code (Latest Code Status on File) Date Activated Date Inactivated Comments 07/08/2024 12:14 PM 07/15/2024 5:39 PM This order reflects the patients wishes and were consensually agreed upon. Question Answer Comments Discussion of Advance Directives occurred with: Patient Care Teams Spot Billing Clerk Relationship Specialty Start Date End Date Leon Calle DO [address] [place] [place] [address] PCP - General Internal Medicine 12/28/23 documented as of this encounter
--- OUTSIDE RECORDS SUMMARY | 2024-08-06 22:35 | External Medical Summary ---
Author Name Unknown Address Unknown Organization [id number]:[facility] [place] - [address] [place] [address] Laboratory Report Ordering Provider Test Date Status RYLEE JOY 07/16/2024 07:10:00 Final Warfarin Therapy
INR: 2 .0-3.0 conventional anticoagulation
INR: 2.5- 3.5 high intensity anticoagulation Observation Date Value Abnormality Reference (Units ) Status PT 07/16/2024 07:10:00 32.6 Above high normal 11 .6-15.2 (seconds) Final INR 07/16/2024 07:10:00 3.1 Above high normal 0. 8-1.2 Final Performing Location [facility] [place] - [address] [place] [id number]
--- OUTSIDE RECORDS SUMMARY | 2024-08-06 22:36 | External Medical Summary | Summary of Care ---
Author Name Unknown Organization [facility] Address [address] [place] [address] Phone [phone] Care Team Providers Care Window Cutter Name Role Phone Leon Galvan DO Primary Care Provider [phone] Reason for Visit * Reason Comments Status Check Encounter Details Date Type Department Care Team (Late st Contact Info) Description 07/14/2024 3:30 PM EST Anticoagulation Family Practice [address] [address] [place], Pharmacist [address] [address] Coronary artery disease involving shawnee coronary artery of shawnee heart with unstable angina pectoris (HCC)*; S/P CABG x 4 Allergies Active Allergy Reactions Criticality Noted Date Comments Codeine Other (Please comment) High 09/08/2013 Severe Skin peeling documented as of this encounter (statuses as of 07/14/2024) Medications oxygen GASIndications :Chronic coronary artery disease,COPD, mild (HCC),Heart failure, systolic, due to CAD (HCC) Use 2 L/min(Oxygen) as directed at bedtime. 1 Each 10/21/19 17 Suspended Pantoprazole Sodium 40 MG Oral Tablet Delayed Release (Protonix) Take 1 Tablet by mouth in the morning. Suspended Acetaminophen 325 MG Oral Tablet Take 1 Tablet by mouth every 6 hours as needed. Suspende d Famotidine 20 MG Oral Tablet Take 1 Tablet by mouth in the morning. Suspended Dutasteride 0.5 MG Oral Capsule (Avodart)Indic ations:BPH with obstruction/lo wer urinary tract symptoms Take 1 Capsule by mouth in the morning. 100 Capsule 11/21/2023 10:41 AM EDT 02/07/20 23 Suspended Additional Information Patient taking differently:0.5 mg OralDAILY NOON, Reported on 07/04/2024 Furosemide 20 MG Oral Tablet (Lasix)Indicat ions:Heart failure, systolic, due to CAD (HCC) take one pill by mouth once a day as needed for fluid accumulation or weight gain 100 Tablet 3 11/21/2023 10:41 AM EDT 02/07/20 23 Suspended rOPINIRole HCl 0.5 MG Oral Tablet (Requip)Indica tions:Restless legs syndrome Take 1 Tablet by mouth in the morning and 1 Tablet at noon and 1 Tablet before bedtime. With food. 300 Tablet 11/21/2023 10:41 AM EDT 02/07/20 23 Suspended buPROPion HCl ER (SR) 150 MG Oral Tablet Extended Release 12 Hour (Wellbutrin SR)Indications :Tobacco use disorder Take 1 Tablet by mouth in the morning and 1 Tablet before bedtime. 200 Tablet 11/21/2023 10:41 AM EDT 02/07/20 23 Suspended busPIRone HCl 5 MG Oral Tablet (Buspar)Indica tions:Anxiety state Take 1 Tablet by mouth in the morning and 1 Tablet before bedtime. 200 Tablet 11/21/2023 10:41 AM EDT 02/07/20 23 Suspended Ezetimibe 10 MG Oral Tablet (Zetia)Indicat ions:Dyslipide cristobal, goal LDL below 70 TAKE ONE TABLET BY MOUTH DAILY 100 Tablet 11/21/2023 10:41 AM EDT 02/07/20 23 Suspended Mirtazapine 15 MG Oral Tablet (Remeron)Indic ations:Anxiety state Take 1 Tablet by mouth at bedtime. 100 Tablet 11/21/2023 10:41 AM EDT 02/08/20 23 Suspended Carvedilol 12.5 MG Oral Tablet (Coreg)Indicat ions:Chronic coronary artery disease,Heart failure, systolic, due to CAD (HCC) Take 1 Tablet by mouth in the morning and 1 Tablet before bedtime with food. 200 Tablet 11/21/2023 10:41 AM EDT 07/30/19 24 Suspended amLODIPine Besylate 5 MG Oral Tablet (Norvasc)Indic ations:HTN, goal below 140/90 Take 1 Tablet by mouth in the morning. 100 Tablet 3 11/21/2023 10:41 AM EDT 08/17/19 24 Suspended Rosuvastatin Calcium 40 MG Oral Tablet (Crestor)Indic ations:HTN, goal below 140/90 Take 1 Tablet by mouth in the morning. 100 Tablet 3 03/31/2024 6:45 AM EDT 08/17/19 24 Suspended Clopidogrel Bisulfate 75 MG Oral Tablet (pLAVix)Indica tions:HTN, goal below 140/90 Take 1 Tablet by mouth in the morning. 100 Tablet 3 11/21/2023 10:41 AM EDT 08/17/19 24 Suspended Spironolactone 25 MG Oral Tablet (Aldactone)Ind ications:HTN, goal below 140/90 Take one-half Tablets by mouth once a day on Sunday, Sunday, and Sunday only. 30 Tablet 3 11/21/2023 10:41 AM EDT 08/17/19 24 Suspended Tamsulosin HCl 0.4 MG Oral Capsule (Flomax) Take 1 Capsule by mouth in the morning. 90 Capsule 3 10/19/2023 3:56 PM EDT 10/18/19 24 Suspended Additional Information Patient taking differently:0.4 mg OralDAILY NOON, Reported on 07/04/2024 documented as of this encounter (statuses as of 07/14/2024) Active Problems Problem Noted Date Diagnosed Date S/P CABG x 4 07/08/2024 Coronary artery disease invo lving shawnee coronary artery of shawnee heart with unstable angina pectoris 07/03/2024 Vitamin [...] failure, systolic, due to CAD 09/08/2013 Old [place] (myocardial infarction) 09/08/2013 Dyslipidemia, goal LDL below 70 06/15/2009 Overview (06/15/2009): Per Lipid Taxonomy. Esophageal reflux 12/03/2007 BPH without obstruction/lower urinary tract symp toms 08/03/2006 Tobacco use disorder 06/03/2002 documented as of this encounter (statuses as of 07/14/2024) Resolved Problems Problem Noted Date Diagnosed Date Resolved Date Type 2 diabetes mellitus wit h autonomic neuropathy 08/17/2023 09/17/2023 Atherosclerosis of shawnee co ronary artery without angina pectoris 08/17/2023 [...] as of this encounter (statuses as of 07/14/2024) Immunizations Name Administration Dates Next Due COVID-19 [...] Progress Notes * Patsy Hansen RPh - 07/14/2024 12:53 PM EST Patient still admitted and planned to go to a SNF for rehab today. Will follow up in 1 week to check status. Patsy Saldana, Pharm D, BCACP Clinical Pharmacist 65 [facility] 07/14/2024, 12:53 PM Ph. [phone] documented in this encounter Plan of Treatment Upcoming Encounters Date Type Department Care Team (Late st Contact Info) Description 07/21/2024 3:50 PM EST Anticoagulation Family Practice 65 [facility] 293 [place] [address] College, Pharmacist [address], [place] [address] 08/20/2024 10:45 AM EST Office Visit [facility] [address] [place] [facility] [place] [address] Jayden Galvan MD [address] [place] [address] 09/17/2024 8:40 AM EDT Office Visit Family Practice [address] [place] [address] 293 [place] [address] Leon Galvan, DO 293 [facility] [place] [address] 09/18/2024 8:00 AM EDT Office Visit Cardiology, [facility] [address] [facility] [place] [address] Alexandra Mackenzie CRNP 132 [facility] [place] [address] 10/10/2024 3:30 PM EDT Imaging Radiology [facility] [address] [facility] [place] [address] 10/17/2024 9:00 AM EDT Office Visit Urology, [place] [address] [place] [address] Johnathon Kent PA-C [address] [place] [address] 02/06/2025 9:30 AM EDT Office Visit Cardiology, [facility] [address] [facility] [place] [address] Poncho Robledo, DO 132 [facility] [place] [address] Health Maintenance Due Date Last Done Comments [...] PAST YEAR FOR COPD 07/08/2025 07/08/2024 GFR 07/14/2025 07/14/2024, 11/2024, 07/12/2024, Additional history exists Albumin/Creatinine Ratio 08/17/2026 024, [...] this encounter Medical Devices Implanted Type Area Paramedical Aide Device Identifier Shelf Expiration Date Model / Serial / Lot Lead Kit Trial [id number] 50cm - [id number] - [id number] Implanted:Qty: 1 on 05/08/2024 by Maged Monreal DO at OR [facility] Left: Back [employer] : PAIN MGMT 03/18/2026 [id number] 50E0 / [id number] / Lead Kit Trial [id number] 50cm - [id number] - [id number] Implanted:Qty: 1 on 05/08/2024 by Maged Monreal DO at OR [facility] Right: Back [employer] : PAIN MGMT 03/18/2026 [id number] 50E0 / [id number] / Suture Steel 6 B&S19 M654g - [id number] Implanted:Qty: 1 on 07/08/2024 by Jayden Galvan MD at [place] [facility] N/A: Sternum JNJ : [employer] 03/08/2029 M654G / / 103BLE Marker Coronary - [id number] Implanted:Qty: 1 on 07/08/2024 by Jayden Galvan MD at OR [facility] N/A: Heart [employer] 05/08/2027 [facility] / / [id number] Marker Coronary - [id number] Implanted:Qty: 1 on 07/08/2024 by Jayden Galvan MD at OR [facility] N/A: Heart [employer] 06/07/2027 [facility] / / [id number] documented as of this encounter Visit Diagnoses Diagnosis Coronary artery disease involving shawnee coronary artery of shawnee heart with unstable angina pectoris (HCC)- Primary S/P CABG x 4 Postsurgical aortocoronary bypass status documented in this encounter Advance Directives * Full Code (Latest Code Status on File) Date Activated Date Inactivated Comments 07/08/2024 12:14 PM This order r eflects the patients wishes and were consensually agreed upon. Question Answer Comments Discussion of Advance Directives occurred with: Patient Care Teams Window Cutter Relationship Specialty Start Date End Date Leon Galvan DO [address] [facility] [place] [address] PCP - General Internal Medicine 6/21/24 documented as of this encounter
--- OUTSIDE RECORDS SUMMARY | 2024-08-06 22:36 | External Medical Summary | Summary of Care ---
Author Name Unknown Organization [facility] Address [address] [place] [address] Phone [phone] Care Team Providers Care Disability Program Navigator Name Role Phone Leon Galvan DO Primary Care Provider [phone] Encounter Details Date Type Department Care Team (Late st Contact Info) Description 07/15/2024 Orders Only Lab Mobile Phlebotomy [facility] [address] [place] [address] Justin Garcia DO [address] [place] [address] termite helper (current) use of anticoagulants* Allergies Active Allergy Reactions Criticality Noted Date Comments Codeine Other (Please comment) High 09/08/2013 Severe Skin peeling documented as of this encounter (statuses as of 07/15/2024) Medications oxygen GASIndications :Chronic coronary artery disease,COPD, [...] mcgIndications:Vitamin B 12 deficiency 1000 mcg IM [id number] 08/17/2023 07/18/2024 Active documented as of this encounter (statuses as of 07/15/2024) Active Problems Problem Noted Date Diagnosed Date S/P CABG x 4 07/08/2024 Coronary artery disease invo lving ione coronary artery of ione heart with unstable angina pectoris 07/03/2024 Vitamin [...] failure, systolic, due to CAD 09/08/2013 Old [place] (myocardial infarction) 09/08/2013 Dyslipidemia, goal LDL below 70 06/15/2009 Overview (06/15/2009): Per Lipid Taxonomy. Esophageal reflux 12/03/2007 BPH without obstruction/lower urinary tract symp toms 08/03/2006 Tobacco use disorder 06/03/2002 documented as of this encounter (statuses as of 07/15/2024) Resolved Problems Problem Noted Date Diagnosed Date Resolved Date Type 2 diabetes mellitus wit h autonomic neuropathy 08/17/2023 09/17/2023 Atherosclerosis of ione co ronary artery without angina pectoris 08/17/2023 [...] as of this encounter (statuses as of 07/15/2024) Immunizations Name Administration Dates Next Due COVID-19 [...] AM EST Laboratory Lab Mobile Phlebotomy [facility] [address] [place] [address] [place], [facility] Nursing [address] [place] [address] 07/21/2024 3:50 PM EST Anticoagulation Family Practice [address] [place] [phone] College, Pharmacist [address] [place] [address] 07/22/2024 10:45 AM EST Scheduled Telephone [facility] [place] [facility] [address] [facility] [place] [address] [place], [address] [facility] [place] [address] 08/20/2024 10:45 AM EST Office Visit Cardiothoracic Surg [facility] [address] [place] [address] Jayden Galvan MD [address] [place] [address] 09/17/2024 8:40 AM EDT Office Visit Family Practice [address] [place] [address] 293 [facility] [place] [address] Leon Galvan, 293 [place] [address] 09/18/2024 8:00 AM EDT Office Visit Cardiology, [facility] 132 [facility] [place] [address] Alexandra Mackenzie CRNP 132 [facility] [address] 10/10/2024 3:30 PM EDT Imaging Radiology [facility] 132 [facility] [place] [address] 10/17/2024 9:00 AM EDT Office Visit Urology, [place] [address] [place] [address] Johnathon Kent PA-C [address] [place] [address] 02/06/2025 9:30 AM EDT Office Visit Cardiology, [facility] [address] Poncho Robledo DO 132 [place] [address] Scheduled Orders Name Type Priority Associated Diagnoses Orde r Schedule PT INR Lab Routine residential (current) use of anticoagulants Expected: 07/16/2024, Expires: 07/15/2025 Health Maintenance Due Date Last Done Comments [...] this encounter Medical Devices Implanted Type Area Net Mobile Developer Device Identifier Shelf Expiration Date Model / Serial / Lot Lead Kit Trial [id number] 50cm - [id number] - [id number] Implanted:Qty: 1 on 05/08/2024 by Maged Monreal DO at OR [facility] Left: Back [employer] : PAIN MGMT 03/18/2026 [id number] 50E0 / [id number] / Lead Kit Trial [id number] 50cm - [id number] - [id number] Implanted:Qty: 1 on 05/08/2024 by Maged Monreal DO at OR [facility] Right: Back [employer] : PAIN MGMT 03/18/2026 [id number] 50E0 / [id number] / Suture Steel 6 B&S19 M654g - [id number] Implanted:Qty: 1 on 07/08/2024 by Jayden Galvan MD at OR [facility] N/A: Sternum JNJ : [employer] 03/08/2029 M654G / / 103BLE Marker Coronary - [id number] Implanted:Qty: 1 on 07/08/2024 by Jayden Galvan MD at OR [facility] N/A: Heart [employer] 05/08/2027 AM-[facility] / / [id number] Marker Coronary - [id number] Implanted:Qty: 1 on 07/08/2024 by Jayden Galvan MD at OR [facility] N/A: Heart [employer] 06/07/2027 [facility] / / [id number] documented as of this encounter Visit Diagnoses Diagnosis residential (current) use of anticoagulants- Primary Long-term (current) use of anticoagulants documented in this encounter Advance Directives * Full Code (Latest Code Status on File) Date Activated Date Inactivated Comments 07/08/2024 12:14 PM 07/15/2024 5:39 PM This order reflects the patients wishes and were consensually agreed upon. Question Answer Comments Discussion of Advance Directives occurred with: Patient Care Teams Disability Program Navigator Relationship Specialty Start Date End Date Leon Galvan DO [address] [place] [address] PCP - General Internal Medicine 12/28/23 documented as of this encounter
--- OUTSIDE RECORDS SUMMARY | 2024-08-06 22:36 | External Medical Summary ---
Author Name Unknown Address Unknown Organization [id number]:LABORATORY [facility] - [address] [place] [address] Laboratory Report Ordering Provider Test Date Status LEVY JAMESON 07/14/2024 03:43:00 Final Warfarin Therapy
INR: 2 .0-3.0 conventional anticoagulation
INR: 2.5- 3.5 high intensity anticoagulation Observation Date Value Abnormality Reference (Units ) Status PT 07/14/2024 03:43:00 25.1 Above high normal 11 .6-15.2 (seconds) Final INR 07/14/2024 03:43:00 2.2 Above high normal 0. 8-1.2 Final Performing Location LABOR[facility]ORY [facility] - [address] [place] [address]
--- OUTSIDE RECORDS SUMMARY | 2024-08-06 22:36 | External Medical Summary | Summary of Care ---
Author Name Unknown Organization [facility] Address [address] [place] [address] Phone [phone] Care Team Providers Care Lead Fire Protection Engineer Name Role Phone Leon Galvan DO Primary Care Provider [phone] Encounter Details Date Type Department Care Team (Late st Contact Info) Description 07/15/2024 Documentation [facility] [address] [place], [place] [phone] Sakshi Staton RN [address] [place], [place] [phone] Allergies Active Allergy Reactions Criticality Noted Date [...] mcgIndications:Vitamin B 12 deficiency 1000 mcg IM [id number] 08/17/2023 07/18/2024 Active documented as of this encounter (statuses as of 07/15/2024) Active Problems Problem Noted Date Diagnosed Date S/P CABG x 4 07/08/2024 Coronary artery disease invo lving [place] coronary artery of [place] heart with unstable angina pectoris 07/03/2024 Vitamin [...] failure, systolic, due to CAD 09/08/2013 Old [place] (myocardial infarction) 09/08/2013 Dyslipidemia, goal LDL below 70 06/15/2009 Overview (06/15/2009): Per Lipid Taxonomy. Esophageal reflux 12/03/2007 BPH without obstruction/lower urinary tract symp toms 08/03/2006 Tobacco use disorder 06/03/2002 documented as of this encounter (statuses as of 07/15/2024) Resolved Problems Problem Noted Date Diagnosed Date Resolved Date Type 2 diabetes mellitus wit h autonomic neuropathy 08/17/2023 09/17/2023 Atherosclerosis of [place] co ronary artery without angina pectoris 08/17/2023 [...] as of this encounter Progress Notes * Sakshi Staton RN - 07/15/2024 3:32 PM EST [facility] Care Escapement Matcher Subjective: Met with patient at bedside. Is being discharged to [facility] today. [facility] will follow for when he is discharged home. Care Escapement Matcher Documentation Discharge Disposition: SNF documented in this encounter Plan of Treatment Upcoming Encounters Date Type Department Care Team (Late st Contact Info) Description 07/21/2024 3:50 PM EST Anticoagulation Family Practice 65 [facility] 293 [place] [address] College, Pharmacist [address] [address] 07/22/2024 10:45 AM EST Scheduled Telephone [facility] [address] [place] [address] [place] CM [address] [place] [address] 08/20/2024 10:45 AM EST Office Visit Cardiothoracic Surg [facility], [address] [phone] Jayden Galvan MD [address] [place] [address] 09/17/2024 8:40 AM EDT Office Visit Family Practice [address] [place] [address] 293 [facility] [place] [address] Leon Galvan, DO 293 [place] [address] 09/18/2024 8:00 AM EDT Office Visit Cardiology, [facility] 132 [facility] [place] [address] Alexandra Mackenzie CRNP 132 [facility] [place] [address] 10/10/2024 3:30 PM EDT Imaging Radiology [facility] 132 [facility] [place] [address] 10/17/2024 9:00 AM EDT Office Visit Urology, [place] [address] [place] [address] Johnathon Kent PA-C [address] [place] [address] 02/06/2025 9:30 AM EDT Office Visit Cardiology, [facility] 132 [facility] [place] [address] Poncho Robledo, DO 132 [facility] [place] [address] Health Maintenance Due Date Last Done Comments [...] this encounter Medical Devices Implanted Type Area Data Analysis Intern Device Identifier Shelf Expiration Date Model / Serial / Lot Lead Kit Trial [id number] 50cm - [id number] - [id number] Implanted:Qty: 1 on 05/08/2024 by Maged Monreal DO at OR [facility] Left: Back [employer] : PAIN MGMT 03/18/2026 [id number] 50E0 / [id number] / Lead Kit Trial [id number] 50cm - [id number] - [id number] Implanted:Qty: 1 on 05/08/2024 by Maged Monreal DO at OR [facility] Right: Back [employer] : PAIN MGMT 03/18/2026 [id number] 50E0 / [id number] / Suture Steel 6 B&S19 M654g - [id number] Implanted:Qty: 1 on 07/08/2024 by Jayden Galvan MD at OR [facility] N/A: Sternum JNJ : [employer] 03/08/2029 M654G / / 103BLE Marker Coronary - [id number] Implanted:Qty: 1 on 07/08/2024 by Jayden Galvan MD at OR [facility] N/A: Heart [employer] 05/08/2027 [facility] / / [id number] Marker Coronary - [id number] Implanted:Qty: 1 on 07/08/2024 by Jayden Galvan MD at OR [facility] N/A: Heart [employer] 06/07/2027 [facility] / / [id number] documented as of this encounter Advance Directives * Full Code (Latest Code Status on File) Date Activated Date Inactivated Comments 07/08/2024 12:14 PM This order r eflects the patients wishes and were consensually agreed upon. Question Answer Comments Discussion of Advance Directives occurred with: Patient Care Teams Lead Fire Protection Engineer Relationship Specialty Start Date End Date Leon Galvan DO 293 [facility] [place] [address] PCP - General Internal Medicine 12/28/23 documented as of this encounter
--- OUTSIDE RECORDS SUMMARY | 2024-08-06 22:36 | External Medical Summary ---
Author Name Unknown Address Unknown Organization K01:[facility] - [address] [facility] [place] [address] Laboratory Report Ordering Provider Test Date Status LEVY JAMESON 07/14/2024 03:43:00 Final Observation Date Value Abnormality Reference (Units ) Status SYNC LEUKOCYTES IN BLOOD BY AUTOMATED COUNT 07/14/2024 03:43:00 7.25 4.00-10.80 (K/uL) Final Segs 07/14/2024 03:43:00 63.7 40.0-75.0 (%) Final Lymphs % 07/14/2024 03:43:00 20.0 18.0-42.0 (%) Final Monos 07/14/2024 03:43:00 12.1 Above high normal 1.0-11.0 (%) Final Eosinophils 07/14/2024 03:43:00 3.6 0.0-6.0 (%) Final Basos 07/14/2024 03:43:00 0.3 0.0-2.0 (%) Final Immature Granulocyte, Percent 07/14/2024 03:43:00 0.3 0.0-2.0 (%) Final Absolute Segs 07/14/2024 03:43:00 4.62 1.80-7.70 (K/uL) Final Lymphs, absolute 07/14/2024 03:43:00 1.45 1.00-4.80 (K/ul) Final Monos, Abs 07/14/2024 03:43:00 0.88 0.00-1.10 (K/uL) Final Eos, Abs 07/14/2024 03:43:00 0.26 0.00-0.70 (K/uL) Final Basos, Abs 07/14/2024 03:43:00 0.02 0.00-0.20 (K/uL) Final Immature Granulocytes, Number 07/14/2024 03:43:00 0.02 0.00-0.20 (K/uL) Final Performing Location [facility] - [address] [facility] [address]
--- OUTSIDE RECORDS SUMMARY | 2024-08-06 22:36 | External Medical Summary | Summary of Care ---
Author Name Unknown Organization [facility] Address [address] [place] [address] Phone [phone] Care Team Providers Care Rug Layer Name Role Phone Leon Galvan DO Primary Care Provider [phone] Encounter Details Date Type Department Care Team (Late st Contact Info) Description 07/12/2024 CardioDiagnostic Study Cardiothoracic Surg [facility] [address] [place] [address] Jayden Galvan MD [address] [place] [address] EKG Report Allergies Active Allergy Reactions Criticality Noted Date [...] 4 07/08/2024 Coronary artery disease invo lving [place] coronary artery of [place] heart with unstable angina pectoris 07/03/2024 Vitamin [...] failure, systolic, due to CAD 09/08/2013 Old [place] (myocardial infarction) 09/08/2013 Dyslipidemia, goal LDL below 70 06/15/2009 Overview (06/15/2009): Per Lipid Taxonomy. Esophageal reflux 12/03/2007 BPH without obstruction/lower urinary tract symp toms 08/03/2006 Tobacco use disorder 06/03/2002 documented as of this encounter (statuses as of 07/15/2024) Resolved Problems Problem Noted Date Diagnosed Date Resolved Date Type 2 diabetes mellitus wit h autonomic neuropathy 08/17/2023 09/17/2023 Atherosclerosis of [place] co ronary artery without angina pectoris 08/17/2023 [...] AM EDT documented as of this encounter Procedure Notes * Edson Balderas DO - 07/12/2024 6:02 AM ESTAssociated Order(s): EKG REPORT REASON FOR STUDY: CONCLUSIONS: Atrial fibrillation Anteroseptal infarct (cited on or before 12-Sep-2013) Prolonged QT interval or tu fusion, consider myocardial disease, electrolyte imbalance, or drug effects When compared with ECG of 09-Jul-2024 08:16, Questionable change in initial forces of Septal leads Ventricular Rate: 99 Atrial Rate: 88 QRS Duration: 106 QT/QTc: 406/521 ms P-R-T [place]: 0 : 31 : 89 degrees documented in this encounter Plan of Treatment Upcoming Encounters Date Type Department Care Team (Late st Contact Info) Description 07/21/2024 3:50 PM EST Anticoagulation Family Practice 65 [facility] 293 [place] [address] College, Pharmacist [address] [place] [address] 08/20/2024 10:45 AM EST Office Visit Cardiothoracic Surg [facility] [address], [place] [id number] Jayden Galvan MD [address], [place] [id number] 09/17/2024 8:40 AM EDT Office Visit Family Practice [address] [place] [address] 293 [place] [address] Leon Galvan, DO 293 [place] [address] 09/18/2024 8:00 AM EDT Office Visit Cardiology, [facility] 132 [facility] [place] [address] Alexandra Mackenzie CRNP [address] [place] [address] 10/10/2024 3:30 PM EDT Imaging Radiology [facility] 132 [facility] [place] [address] 10/17/2024 9:00 AM EDT Office Visit Urology, [place] [address] [place] [address] Johnathon Kent PA-C [address] [place] [address] 02/06/2025 9:30 AM EDT Office Visit Cardiology, [facility] 132 [facility] [place] [address] Poncho Robledo, DO 132 [facility] [place] [address] Health Maintenance Due Date Last Done Comments [...] this encounter Medical Devices Implanted Type Area Early Childhood Director Device Identifier Shelf Expiration Date Model / Serial / Lot Lead Kit Trial [id number] 50cm - [id number] - [id number] Implanted:Qty: 1 on 05/08/2024 by Maged Monreal DO at OR [facility] Left: Back [employer] : PAIN MGMT 03/18/2026 [id number] 50E0 / [id number] / Lead Kit Trial [id number] 50cm - [id number] - [id number] Implanted:Qty: 1 on 05/08/2024 by Maged Monreal DO at OR [facility] Right: Back [employer] : PAIN MGMT 03/18/2026 [id number] 50E0 / [id number] / Suture Steel 6 B&S19 M654g - [id number] Implanted:Qty: 1 on 07/08/2024 by Jayden Galvan MD at OR [facility] N/A: Sternum JNJ : [employer] 03/08/2029 M654G / / [id number] Marker Coronary - [id number] Implanted:Qty: 1 on 07/08/2024 by Jayden Galvan MD at OR [facility] N/A: Heart [employer] 05/08/2027 [facility] / / [id number] Marker Coronary - [id number] Implanted:Qty: 1 on 07/08/2024 by Jayden Galvan MD at OR [facility] N/A: Heart [employer] 06/07/2027 [facility] / / [id number] documented as of this encounter Procedures Procedure Name Priority Date/Time Associated Diagnosis Comments EKG REPORT 07/12/2024 6:02 AM EST documented in this encounter Results * EKG REPORT (07/12/2024 6:02 AM EST) 07/12/2024 6:02 AM EST Narrative Procedure Note Edson Balderas DO - 07/12/2024 6:02 AM EST REASON FOR STUDY: CONCLUSIONS: Atrial fibrillation Anteroseptal infarct (cited on or before 12-Sep-2013) Prolonged QT interval or tu fusion, consider myocardial disease,electrolyte imbalance, or drug effects When compared with ECG of 09-Jul-2024 08:16, Questionable change in initial forces of Septal leads Ventricular Rate: 99 Atrial Rate: 88 QRS Duration: 106 QT/QTc: 406/521 ms P-R-T [place]: 0 : 31 : 89 degrees us Jayden Galvan MD EKG Fin al Result documented in this encounter Advance Directives * Full Code (Latest Code Status on File) Date Activated Date Inactivated Comments 07/08/2024 12:14 PM This order r eflects the patients wishes and were consensually agreed upon. Question Answer Comments Discussion of Advance Directives occurred with: Patient Care Teams Rug Layer Relationship Specialty Start Date End Date Leon Galvan DO 293 [place] [address] PCP - General Internal Medicine 12/28/23 documented as of this encounter
--- OUTSIDE RECORDS SUMMARY | 2024-08-06 22:36 | External Medical Summary ---
Author Name Unknown Address Unknown Organization K01:[facility] - [address] [place] [address] [place] [address] Laboratory Report Ordering Provider Test Date Status LEVY JAMESON 07/15/2024 04:30:00 Final Observation Date Value Abnormality Reference (Units ) Status Magnesium 07/15/2024 04:30:00 2.1 1.5-2.6 (m g/dL) Final Performing Location [facility] - [address] [place] [address]
--- OUTSIDE RECORDS SUMMARY | 2024-08-06 22:36 | External Medical Summary ---
Author Name Unknown Address Unknown Organization [id number]:[facility] - [address] [place] [address] Laboratory Report Ordering Provider Test Date Status LEVY JAMESON 07/15/2024 04:30:00 Final Observation Date Value Abnormality Reference (Units ) Status SYNC LEUKOCYTES IN BLOOD BY AUTOMATED COUNT 07/15/2024 04:30:00 7.42 4.00-10.80 (K/uL) Final Segs 07/15/2024 04:30:00 75.4 Above high normal 40.0-75.0 (%) Final Lymphs % 07/15/2024 04:30:00 11.5 Below low normal 18.0-42.0 (%) Final Monos 07/15/2024 04:30:00 9.8 1.0-11.0 (%) Final Eosinophils 07/15/2024 04:30:00 2.6 0.0-6.0 (%) Final Basos 07/15/2024 04:30:00 0.3 0.0-2.0 (%) Final Immature Granulocyte, Percent 07/15/2024 04:30:00 0.4 0.0-2.0 (%) Final Absolute Segs 07/15/2024 04:30:00 5.60 1.80-7.70 (K/uL) Final Lymphs, absolute 07/15/2024 04:30:00 0.85 Below low normal 1.00-4.80 (K/ul) Final Monos, Abs 07/15/2024 04:30:00 0.73 0.00-1.10 (K/uL) Final Eos, Abs 07/15/2024 04:30:00 0.19 0.00-0.70 (K/uL) Final Basos, Abs 07/15/2024 04:30:00 0.02 0.00-0.20 (K/uL) Final Immature Granulocytes, Number 07/15/2024 04:30:00 0.03 0.00-0.20 (K/uL) Final Performing Location [facility] - [address] [facility] [address]
--- OUTSIDE RECORDS SUMMARY | 2024-08-06 22:36 | External Medical Summary | Summary of Care ---
Author Name Unknown Organization [facility] Address [address] [place] [address] Phone [phone] Care Team Providers Care Turbo Electric Operator Name Role Phone Leon Galvan DO Primary Care Provider [phone] Encounter Details Date Type Department Care Team (Late st Contact Info) Description 07/15/2024 Documentation [facility] [address] [place], [place] [phone] Sakshi Staton RN [address] [place], [place] [phone] Allergies Active Allergy Reactions Criticality Noted Date [...] mcgIndications:Vitamin B 12 deficiency 1000 mcg IM [id number] 08/17/2023 07/18/2024 Active documented as of this encounter (statuses as of 07/15/2024) Active Problems Problem Noted Date Diagnosed Date S/P CABG x 4 07/08/2024 Coronary artery disease invo lving [place] coronary artery of [place] heart with unstable angina pectoris 07/03/2024 Vitamin [...] failure, systolic, due to CAD 09/08/2013 Old [place] (myocardial infarction) 09/08/2013 Dyslipidemia, goal LDL below 70 06/15/2009 Overview (06/15/2009): Per Lipid Taxonomy. Esophageal reflux 12/03/2007 BPH without obstruction/lower urinary tract symp toms 08/03/2006 Tobacco use disorder 06/03/2002 documented as of this encounter (statuses as of 07/15/2024) Resolved Problems Problem Noted Date Diagnosed Date Resolved Date Type 2 diabetes mellitus wit h autonomic neuropathy 08/17/2023 09/17/2023 Atherosclerosis of [place] co ronary artery without angina pectoris 08/17/2023 [...] 3:32 PM EST [facility] Subjective: Met with patient at bedside. Is being discharged to [facility] today. [facility] will follow for when he is discharged home. Care [facility] Documentation Discharge Disposition: SNF documented in this encounter Plan of Treatment Upcoming Encounters Date Type Department Care Team (Late st Contact Info) Description 07/21/2024 3:50 PM EST Anticoagulation Family Practice 65 [facility] 293 [place] [address] College, Pharmacist [address] [address] 07/22/2024 10:45 AM EST Scheduled Telephone [facility], [facility] [address] [place] [address] Alma Armando CM [address] [place] [address] 08/20/2024 10:45 AM EST Office Visit Cardiothoracic Surg [facility], [address] [phone] Jayden Galvan MD [address] [place] [address] 09/17/2024 8:40 AM EDT Office Visit Family Practice [address] [place] [address] 293 [place] [address] Leon Galvan, DO 293 [place] [address] 09/18/2024 8:00 AM EDT Office Visit Cardiology, [facility] 132 [facility] [place] [address] Alexandra Mackenzie CRNP 132 [facility] [place] [address] 10/10/2024 3:30 PM EDT Imaging Radiology [facility] 132 [facility] [place] [address] 10/17/2024 9:00 AM EDT Office Visit Urology, [place] [address] [place] [address] Johnathon Kent PA-C [address] [place] [address] 02/06/2025 9:30 AM EDT Office Visit Cardiology, [facility] 132 [facility] [place] [address] Poncho Robledo, DO 132 [facility] [place] [address] Health Maintenance Due Date Last Done Comments [...] encounter Medical Devices Implanted Type Area Clinical Research Technician Device Identifier Shelf Expiration Date Model / Serial / Lot Lead Kit Trial [id number] 50cm - [id number] - [id number] Implanted:Qty: 1 on 05/08/2024 by Maged Monreal DO at OR [facility] Left: Back [employer] : PAIN MGMT 03/18/2026 [id number] 50E0 / [id number] / Lead Kit Trial [id number] 50cm - [id number] - [id number] Implanted:Qty: 1 on 05/08/2024 by Maged Monreal DO at OR [facility] Right: Back [employer] : PAIN MGMT 03/18/2026 [id number] 50E0 / [id number] / Suture Steel 6 B&S19 M654g - [id number] Implanted:Qty: 1 on 07/08/2024 by Jayden Galvan MD at OR [facility] N/A: Sternum JNJ : [employer] 03/08/2029 M654G / / 103BLE Marker Coronary - [id number] Implanted:Qty: 1 on 07/08/2024 by Jayden Galvan MD at OR [facility] N/A: Heart [employer] 05/08/2027 [facility] / / [id number] Marker Coronary - [id number] Implanted:Qty: 1 on 07/08/2024 by Jayden Galvan MD at OR [facility] N/A: Heart [employer] 06/07/2027 [facility] / / [id number] documented as of this encounter Advance Directives * Full Code (Latest Code Status on File) Date Activated Date Inactivated Comments 07/08/2024 12:14 PM This order r eflects the patients wishes and were consensually agreed upon. Question Answer Comments Discussion of Advance Directives occurred with: Patient Care Teams Turbo Electric Operator Relationship Specialty Start Date End Date Leon Galvan DO [address] [facility] [address] PCP - General Internal Medicine 12/28/23 documented as of this encounter
--- OUTSIDE RECORDS SUMMARY | 2024-08-06 22:36 | External Medical Summary ---
Author Name Unknown Address Unknown Organization K01:[facility] - [address] [facility] [address] [place] [address] Laboratory Report Ordering Provider Test Date Status LEVY JAMESON 07/15/2024 04:30:00 Final Observation Date Value Abnormality Reference (Units ) Status WBC, Total 07/15/2024 04:30:00 7.42 4.00-10.80 (K/uL) Final RBC 07/15/2024 04:30:00 3.17 4.50-5.25 (M/uL) Final Hemoglobin 07/15/2024 04:30:00 10.0 Below low normal 14.0-16.8 (g/dL) Final HCT 07/15/2024 04:30:00 30.4 Below low normal 40.0-48.4 (%) Final MCV 07/15/2024 04:30:00 95.9 82.0-99.5 (fL) Final MCH 07/15/2024 04:30:00 31.5 27.0-34.0 (pg) Final MCHC 07/15/2024 04:30:00 32.9 32.0-36.0 (g/dL) Final RDW 07/15/2024 04:30:00 13.6 11.5-15.5 (%) Final Platelets 07/15/2024 04:30:00 220 140-400 (K/uL) Final MPV 07/15/2024 04:30:00 10.6 6.6-11.1 (fL) Final Nucleated erythrocytes/100 leukocytes [Ratio] in Blood by Automated count 07/15/2024 04:30:00 0 <=0 (/100 WBCs) Final Performing Location [facility] - [address] [place] [address]
--- OUTSIDE RECORDS SUMMARY | 2024-08-06 22:36 | External Medical Summary ---
Author Name Unknown Address Unknown Organization K01:[facility]ORATORY [facility] [place] [facility] [address] [facility] [address] [facility] [address] Laboratory Report Ordering Provider Test Date Status LEVY JAMESON 07/14/2024 03:43:00 Final Observation Date Value Abnormality Reference (Units ) Status WBC, Total 07/14/2024 03:43:00 7.25 4.00-10.80 (K/uL) Final RBC 07/14/2024 03:43:00 3.18 4.50-5.25 (M/uL) Final Hemoglobin 07/14/2024 03:43:00 10.2 Below low normal 14.0-16.8 (g/dL) Final HCT 07/14/2024 03:43:00 31.1 Below low normal 40.0-48.4 (%) Final MCV 07/14/2024 03:43:00 97.8 82.0-99.5 (fL) Final MCH 07/14/2024 03:43:00 32.1 27.0-34.0 (pg) Final MCHC 07/14/2024 03:43:00 32.8 32.0-36.0 (g/dL) Final RDW 07/14/2024 03:43:00 13.7 11.5-15.5 (%) Final Platelets 07/14/2024 03:43:00 188 140-400 (K/uL) Final MPV 07/14/2024 03:43:00 10.5 6.6-11.1 (fL) Final Nucleated erythrocytes/100 leukocytes [Ratio] in Blood by Automated count 07/14/2024 03:43:00 0 <=0 (/100 WBCs) Final Performing Location LAB[facility]ORY [facility] [place] [address] [place] [address]
--- OUTSIDE RECORDS SUMMARY | 2024-08-06 22:36 | External Medical Summary ---
Author Name Unknown Address Unknown Organization K01:[facility] - [address] [place] [address] Laboratory Report Ordering Provider Test Date Status LEVY JAMESON 07/15/2024 04:29:00 Final Warfarin Therapy
INR: 2 .0-3.0 conventional anticoagulation
INR: 2.5- 3.5 high intensity anticoagulation Observation Date Value Abnormality Reference (Units ) Status PT 07/15/2024 04:29:00 31.5 Above high normal 11 .6-15.2 (seconds) Final INR 07/15/2024 04:29:00 3.0 Above high normal 0. 8-1.2 Final Performing Location [facility] - [address] [place] [address]
--- OUTSIDE RECORDS SUMMARY | 2024-08-06 22:36 | External Medical Summary | Summary of Care ---
Author Name Unknown Organization [facility] Address [address] [place] [address] Phone [phone] Care Team Providers Care Take Off Man Name Role Phone Leon Galvan DO Primary Care Provider [phone] Reason for Visit * Reason Onset Date Comments [facility]: Maintenance 07/15/2024 Encounter Details Date Type Department Care Team (Late st Contact Info) Description 07/15/2024 Telephone [facility], [address] [address] Cherelle Guidry, SOAPING MACHINE BACK TENDER [address] [place] [address] [facility]: Maintenance Allergies Active Allergy [...] mcgIndications:Vitamin B 12 deficiency 1000 mcg IM [id number] 08/17/2023 07/18/2024 Active documented as of this encounter (statuses as of 07/15/2024) Active Problems Problem Noted Date Diagnosed Date S/P CABG x 4 07/08/2024 Coronary artery disease invo lving [place] coronary artery of [place] heart with unstable angina pectoris 07/03/2024 Vitamin [...] failure, systolic, due to CAD 09/08/2013 Old [place] (myocardial infarction) 09/08/2013 Dyslipidemia, goal LDL below 70 06/15/2009 Overview (06/15/2009): Per Lipid Taxonomy. Esophageal reflux 12/03/2007 BPH without obstruction/lower urinary tract symp toms 08/03/2006 Tobacco use disorder 06/03/2002 documented as of this encounter (statuses as of 07/15/2024) Resolved Problems Problem Noted Date Diagnosed Date Resolved Date Type 2 diabetes mellitus wit h autonomic neuropathy 08/17/2023 09/17/2023 Atherosclerosis of [place] co ronary artery without angina pectoris 08/17/2023 [...] CG/0.3 mL, 12 YRS AND ABOVE, IM (Parallels-Comirnat) 06/16/2024,05/07/2023 COVID-19, mRNA, LNP-s, PF, B ooster, [...] encounter Miscellaneous Notes * Telephone Encounter - Cherelle Guidry LPN - 07/15/2024 1:37 PM EST D/c to [facility] Added to Alma Armando to follow d/c documented in this encounter Plan of Treatment Upcoming Encounters Date Type Department Care Team (Late st Contact Info) Description 07/21/2024 3:50 PM EST Anticoagulation Family Practice 65 [facility] 293 [place] [address] College, Pharmacist [address] [place] [address] 07/22/2024 10:45 AM EST Scheduled Telephone [facility], [place] [address] [facility] [place] [address] Alma Armando CM [address] [place] [address] 08/20/2024 10:45 AM EST Office Visit Cardiothoracic Surg [place] [address] [place] [address] Jayden Galvan MD [address] [place] [address] 09/17/2024 8:40 AM EDT Office Visit Family Practice [address] [place] [address] 293 [place] [address] Leon Galvan, 293 [place] [address] 09/18/2024 8:00 AM EDT Office Visit Cardiology, [facility] 132 [facility] [place] [address] Alexandra Mackenzie CRNP 132 [place] [address] 10/10/2024 3:30 PM EDT Imaging Radiology [facility] 132 [place] [address] 10/17/2024 9:00 AM EDT Office Visit Urology, [place] [address] [place] [address] Johnathon Kent PA-C [address] [place] [address] 02/06/2025 9:30 AM EDT Office Visit Cardiology, [facility] 132 [facility] [place] [address] Poncho Robledo, DO 132 [place] [address] Health Maintenance Due Date Last Done Comments [...] encounter Medical Devices Implanted Type Area Clinical Trainer Device Identifier Shelf Expiration Date Model / Serial / Lot Lead Kit Trial [id number] 50cm - [id number] - [id number] Implanted:Qty: 1 on 05/08/2024 by Maged Monreal DO at OR [facility] Left: Back [employer] : PAIN MGMT 03/18/2026 [id number] 50E0 / [id number] / Lead Kit Trial [id number] 50cm - [id number] - [id number] Implanted:Qty: 1 on 05/08/2024 by Maged Monreal DO at OR [facility] Right: Back [employer] : PAIN MGMT 03/18/2026 [id number] 50E0 / [id number] / Suture Steel 6 B&S19 M654g - [id number] Implanted:Qty: 1 on 07/08/2024 by Jayden Galvan MD [place] [facility] N/A: Sternum JNJ : [employer] 03/08/2029 M654G / / 103BLE Marker Coronary - [id number] Implanted:Qty: 1 on 07/08/2024 by Jayden Galvan MD at [place] [facility] N/A: Heart [employer] 05/08/2027 [facility] / / [id number] Marker Coronary - [id number] Implanted:Qty: 1 on 07/08/2024 by Jayden Galvan MD at [place] [facility] N/A: Heart [employer] 06/07/2027 [facility] / / [id number] documented as of this encounter Advance Directives * Full Code (Latest Code Status on File) Date Activated Date Inactivated Comments 07/08/2024 12:14 PM This order r eflects the patients wishes and were consensually agreed upon. Question Answer Comments Discussion of Advance Directives occurred with: Patient Care Teams Take Off Man Relationship Specialty Start Date End Date Leon Galvan DO [address] [place] [address] PCP - General Internal Medicine 12/28/23 documented as of this encounter
--- OUTSIDE RECORDS SUMMARY | 2024-08-06 22:36 | External Medical Summary ---
Author Name Unknown Address Unknown Organization K01:LABORATORY [facility] [place] - [address] [place] [address] Laboratory Report Ordering Provider Test Date Status LEVY JAMESON 07/15/2024 04:30:00 Final Observation Date Value Abnormality Reference (Units ) Status BUN 07/15/2024 04:30:00 31 Above high normal 6-20 (mg/dL) Final Creatinine 07/15/2024 04:30:00 1.3 Above high normal 0.6-1.2 (mg/dL) Final Glomerular filtration rate/1.73 sq M.predicted [Volume Rate/Area] in Serum, Plasma or Blood by Creatinine-based formula (CKD-EPI) 07/15/2024 04:30:00 59 Below low normal >=60 (mL/min) Final eGFR is calculated based on the CKD-EPI 2020 equation. Sodium 07/15/2024 04:30:00 138 135-146 (m mol/L) Final Potassium 07/15/2024 04:30:00 4.4 3.5-5.1 (m mol/L) Final Cl 07/15/2024 04:30:00 105 98-107 (mm ol/L) Final CO2 07/15/2024 04:30:00 21 Below low normal 22- 32 (mmol/L) Final Anion gap 07/15/2024 04:30:00 12 7-15 (mmol /L) Final Glucose 07/15/2024 04:30:00 96 70-120 (mg /dL) Final Calcium 07/15/2024 04:30:00 8.3 Below low normal 8.4 -10.2 (mg/dL) Final Performing Location LABORATORY [facility] [place] - [address] [place] [address]
--- OUTSIDE RECORDS SUMMARY | 2024-08-06 22:36 | External Medical Summary ---
Author Name Unknown Address Unknown Organization K01:[facility] - [address] [facility] [place] [address] Laboratory Report Ordering Provider Test Date Status LEVY JAMESON 07/14/2024 03:43:00 Final Observation Date Value Abnormality Reference (Units ) Status Magnesium 07/14/2024 03:43:00 2.2 1.5-2.6 (m g/dL) Final Performing Location [facility] - [address] [place] [address]
--- OUTSIDE RECORDS SUMMARY | 2024-08-06 22:36 | External Medical Summary ---
Author Name Unknown Address Unknown Organization K01:LABORATORY [facility] [place] - [address] [place] [address] Laboratory Report Ordering Provider Test Date Status LEVY JAMESON 07/14/2024 03:43:00 Final Observation Date Value Abnormality Reference (Units ) Status BUN 07/14/2024 03:43:00 36 Above high normal 6-20 (mg/dL) Final Creatinine 07/14/2024 03:43:00 1.2 0.6-1.2 (mg/dL) Final Glomerular filtration rate/1.73 sq M.predicted [Volume Rate/Area] in Serum, Plasma or Blood by Creatinine-based formula (CKD-EPI) 07/14/2024 03:43:00 62 >=60 (mL/min) Final eGFR is calculated based on the CKD-EPI 2020 equation. Sodium 07/14/2024 03:43:00 137 135-146 (m mol/L) Final Potassium 07/14/2024 03:43:00 4.2 3.5-5.1 (m mol/L) Final Cl 07/14/2024 03:43:00 105 98-107 (mm ol/L) Final CO2 07/14/2024 03:43:00 20 Below low normal 22- 32 (mmol/L) Final Anion gap 07/14/2024 03:43:00 12 7-15 (mmol /L) Final Glucose 07/14/2024 03:43:00 86 70-120 (mg /dL) Final Calcium 07/14/2024 03:43:00 8.3 Below low normal 8.4 -10.2 (mg/dL) Final Performing Location [facility]ORY [facility] [place] - [address] [place] [address]
--- OUTSIDE RECORDS SUMMARY | 2024-08-06 22:37 | External Medical Summary ---
Author Name Unknown Address Unknown Organization K01:[facility] - [address] [place] [address] Laboratory Report Ordering Provider Test Date Status LEVY JAMESON 07/11/2024 04:10:00 Final Observation Date Value Abnormality Reference (Units ) Status Magnesium 07/11/2024 04:10:00 2.2 1.5-2.6 (m g/dL) Final Performing Location [facility] - [address] [place] [address]
--- OUTSIDE RECORDS SUMMARY | 2024-08-06 22:37 | External Medical Summary ---
Author Name Unknown Address Unknown Organization K01:[facility]ORY [facility] - [address] [place] [address] Laboratory Report Ordering Provider Test Date Status LEVY JAMESON 07/09/2024 03:53:09 Final Observation Date Value Abnormality Reference (Units ) Status Magnesium 07/09/2024 03:53:09 2.8 Above high normal 1. 5-2.6 (mg/dL) Final Performing Location [facility] - [address] [place] [address]
--- OUTSIDE RECORDS SUMMARY | 2024-08-06 22:37 | External Medical Summary ---
Author Name Unknown Address Unknown Organization K01:LABORATORY [facility] [place] [facility] - [address] [place] [address] Laboratory Report Ordering Provider Test Date Status JOSUE ROGER 07/12/2024 15:59:00 Final Observation Date Value Abnormality Reference (Units ) Status ABO 07/12/2024 15:59:00 O Final RH 07/12/2024 15:59:00 Negative Final RED BLOOD CELL ANTIBODY SCREEN 07/12/2024 15:59:00 Negative Final SPECIMEN EXPIRATION DATE 07/12/2024 15:59:00 07/15/2024 23:59 Final Performing Location [facility]ATORY [facility] [address] [facility] [place] [address]
--- OUTSIDE RECORDS SUMMARY | 2024-08-06 22:37 | External Medical Summary ---
Author Name Unknown Address Unknown Organization K01:[facility] [place] [address] [place] [address] Laboratory Report Ordering Provider Test Date Status DAGMAR MCCORMICK 07/09/2024 12:26:46 Final Observation Date Value Abnormality Reference (Units ) Status BUN 07/09/2024 12:26:46 20 6-20 (mg/dL) Final Creatinine 07/09/2024 12:26:46 1.6 Above high normal 0.6-1.2 (mg/dL) Final Glomerular filtration rate/1.73 sq M.predicted [Volume Rate/Area] in Serum, Plasma or Blood by Creatinine-based formula (CKD-EPI) 07/09/2024 12:26:46 47 Below low normal >=60 (mL/min) Final eGFR is calculated based on the CKD-EPI 2020 equation. Sodium 07/09/2024 12:26:46 141 135-146 (m mol/L) Final Potassium 07/09/2024 12:26:46 3.8 3.5-5.1 (m mol/L) Final Cl 07/09/2024 12:26:46 105 98-107 (mm ol/L) Final CO2 07/09/2024 12:26:46 23 22-32 (mmo l/L) Final Anion gap 07/09/2024 12:26:46 13 7-15 (mmol /L) Final Glucose 07/09/2024 12:26:46 167 Above high normal 70 -120 (mg/dL) Final Calcium 07/09/2024 12:26:46 8.0 Below low normal 8.4 -10.2 (mg/dL) Final Performing Location [facility] [place] [address] [place] [address]
--- OUTSIDE RECORDS SUMMARY | 2024-08-06 22:37 | External Medical Summary ---
Author Name Unknown Address Unknown Organization : Laboratory Report Ordering Provider Test Date Status LEVY JAMESON 07/10/2024 03:48:50 Final Observation Date Value Abnormality Reference (Units ) Status Performing Location
--- OUTSIDE RECORDS SUMMARY | 2024-08-06 22:37 | External Medical Summary | Summary of Care ---
Author Name Unknown Organization [facility] Address [address] [place] [address] Phone [phone] Care Team Providers Care Teletype Or Varitype Keyboard Operator Name Role Phone Leon Galvan DO Primary Care Provider [phone] Encounter Details Date Type Department Care Team (Late st Contact Info) Description 07/10/2024 Documentation [facility] [address] [place], [place] [phone] Sakshi Staton RN [address] [place], [place] [phone] Allergies Active Allergy Reactions Criticality Noted Date Comments Codeine Other (Please comment) High 09/08/2013 Severe Skin peeling documented as of this encounter (statuses as of 07/10/2024) Medications oxygen GASIndications:C hronic coronary artery disease,COPD, mild (HCC),Heart failure, systolic, [...] Tablet by mouth in the morning. Suspended Aspirin 81 MG Oral Tablet Chewable take one tablet by mouth once a day with food 100 Tablet 5 4 10:41 AM EDT 02/07/20 23 Suspended Additional Information Patient not taking.Reported on 07/04/2024 Dutasteride 0.5 MG Oral Capsule (Avodart)Indicat ions:BPH with obstruction/lowe r urinary tract symptoms Take 1 Capsule by mouth in the morning. 100 Capsule 3 4 10:41 AM EDT 02/07/20 23 Suspended Additional Information Patient taking differently:0.5 mg OralDAILY NOON, Reported on 07/04/2024 Furosemide 20 MG Oral Tablet (Lasix)Indicatio ns:Heart failure, systolic, due to CAD ([facility]) take one pill by mouth once a day as needed for fluid accumulation or weight gain 100 Tablet 3 4 10:41 AM EDT 02/07/20 23 Suspended rOPINIRole HCl 0.5 MG Oral Tablet (Requip)Indicati ons:Restless legs syndrome Take 1 Tablet by mouth in the morning and 1 Tablet at noon and 1 Tablet before bedtime. With food. 300 Tablet 3 4 10:41 AM EDT 02/07/20 23 Suspended Additional Information Patient taking differently:0.5 mg OralBID (0700,1900), Takes at 12 noon and at bedtime, Reported on 07/04/2024 buPROPion HCl ER (SR) 150 MG Oral Tablet Extended Release 12 Hour (Wellbutrin SR)Indications:T obacco use disorder Take 1 Tablet by mouth in the morning and 1 Tablet before bedtime. 200 Tablet 3 4 10:41 AM EDT 02/07/20 23 Suspended busPIRone HCl 5 MG Oral Tablet (Buspar)Indicati ons:Anxiety state Take 1 Tablet by mouth in the morning and 1 Tablet before bedtime. 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 100 Tablet 3 4 10:41 AM EDT 02/07/20 23 Suspended Ezetimibe 10 MG Oral Tablet (Zetia)Indicatio ns:Dyslipidemia, goal LDL below 70 TAKE ONE TABLET BY MOUTH DAILY 100 Tablet 3 4 10:41 AM EDT 02/07/20 23 Suspended Nitroglycerin 0.4 MG Sublingual Tablet Sublingual (Nitrostat)Indic ations:Coronary artery disease of ely shoshone artery of ely shoshone heart with stable angina pectoris (HCC) Place 1 Tablet under the tongue every 5 minutes as needed for Pain, Chest. 25 Tablet 3 4 10:41 AM EDT 02/08/20 23 Suspended Additional Information Patient not taking.Reported on 07/08/2024 Mirtazapine 15 MG Oral Tablet (Remeron)Indicat ions:Anxiety state Take 1 Tablet by mouth at bedtime. 100 Tablet 3 4 10:41 AM EDT 02/08/20 23 Suspended Carvedilol 12.5 MG Oral Tablet (Coreg)Indicatio ns:Chronic coronary artery disease,Heart failure, systolic, due to CAD (HCC) Take 1 Tablet by mouth in the morning and 1 Tablet before bedtime with food. 200 Tablet 3 4 10:41 AM EDT 07/30/19 24 Suspended amLODIPine Besylate 5 MG Oral Tablet (Norvasc)Indicat ions:HTN, goal below 140/90 Take 1 Tablet by mouth in the morning. 100 Tablet 3 4 10:41 AM EDT 08/17/19 24 Suspended Rosuvastatin Calcium 40 MG Oral Tablet (Crestor)Indicat ions:HTN, goal below 140/90 Take 1 Tablet by mouth in the morning. 100 Tablet 3 4 6:45 AM EDT 08/17/19 24 Suspended Clopidogrel Bisulfate 75 MG Oral Tablet (pLAVix)Indicati ons:HTN, goal below 140/90 Take 1 Tablet by mouth in the morning. 100 Tablet 3 4 10:41 AM EDT 08/17/19 24 Suspended Spironolactone 25 MG Oral Tablet (Aldactone)Indic ations:HTN, goal below 140/90 Take one-half Tablets by mouth once a day on Sunday, Sunday, and Sunday only. 30 Tablet 3 4 10:41 AM EDT 08/17/19 24 Suspended Tamsulosin HCl 0.4 MG Oral Capsule (Flomax) Take 1 Capsule by mouth in the morning. 90 Capsule 3 4 3:56 PM EDT 10/18/19 24 Suspended Additional Information Patient taking differently:0.4 mg OralDAILY NOON, Reported on 07/04/2024 Pregabalin 75 MG Oral Capsule (Lyrica)Indicati ons:Neuropathy take one capsule by mouth in morning and 2 capsules in afternoon 300 Capsule 1 4 12:21 PM EDT 11/20/19 24 Suspended Baclofen 10 MG Oral Tablet (Lioresal)Indica tions:Lumbar degenerative disc disease Take 1 Tablet by mouth in the morning and 1 Tablet at noon and 1 Tablet before bedtime. 300 Tablet 3 4 4:49 PM EDT 11/19/19 24 Suspended oxyCODONE HCl 5 MG Oral Tablet (Oxy IR)Indications:L umbar degenerative disc disease Take 1 Tablet by mouth every 8 hours as needed for Pain, Severe. 21 Tablet 01/01/20 24 Suspended Additional Information Patient not taking.Reported on 07/08/2024 Lisinopril 40 MG Oral TabletIndication s:HTN, goal below 150/90 Take 1 Tablet by mouth in the morning. 100 Tablet 1 4 6:45 AM EDT 03/30/20 24 Suspended Apixaban 5 MG Oral Tablet (Eliquis) Take 1 Tablet by mouth in the morning and 1 Tablet before bedtime. 60 Tablet 6 06/30/20 24 Suspended Enoxaparin Sodium 60 MG/0.6ML Injection Solution Prefilled Syringe (Lovenox)Indicat ions:Cerebrovasc ular disease, arteriosclerotic , post-stroke,LV (left ventricular) mural thrombus Inject 60 mg under the skin in the morning and 60 mg before bedtime. Starting 07/05/24. 3 mL 07/03/20 24 Suspended Aspirin 325 MG Oral Tablet Delayed Release Take 1 Tablet by mouth in the morning. Suspended documented as of this encounter (statuses as of 07/10/2024) Active Problems Problem Noted Date Diagnosed Date S/P CABG x 4 07/08/2024 Coronary artery disease invo lving ely shoshone coronary artery of ely shoshone heart with unstable angina pectoris 07/03/2024 Vitamin [...] as of this encounter (statuses as of 07/10/2024) Resolved Problems Problem Noted Date Diagnosed Date Resolved Date Type 2 diabetes mellitus wit h autonomic neuropathy 08/17/2023 09/17/2023 Atherosclerosis of [place] shoshone co ronary artery without angina pectoris 08/17/2023 [...] as of this encounter (statuses as of 07/10/2024) Immunizations Name Administration Dates Next Due COVID-19 [...] Tobacco: Every Day Cigarettes 0.5 59 Started: 1966 Passive Smoke Exposure: Current Smokeless [...] Progress Notes * Sakshi Staton RN - 07/10/2024 12:40 PM EST [facility] Audio Tape Librarian Subjective: Discussed case with IP CM. Met with patient at bedside. He is interested in re-enrolling with [facility] at discharge. He states thatthe no-shows from prior enrollment were because his house is difficult to find. He is currently outof bed to chair, but reports he feels weak. Does not have a cane or rolling walker at home. Lives with and [id number], and states that his will be able to help him when he gets home. Not medically ready for discharge. Will follow while hospitalized. Care Audio Tape Librarian Documentation The patient's case been reviewed with: Interdisciplinary Team, IP Health Care Team Care Audio Tape Librarian Plan: Collaboration with IP/OP teams Discharge Disposition: Pending documented in this encounter Plan of Treatment Upcoming Encounters Date Type Department Care Team (Late st Contact Info) Description 07/10/2024 5:10 PM EST Anticoagulation Family Practice [facility] [address] [facility], [place] [phone] College, Pharmacist [address] [place] [address] Arrived 09/17/2024 8:40 AM EDT Office Visit Family Practice [facility] [address] [facility], [place] [phone] Leon Galvan, 293 [facility], [place] [address] 09/18/2024 8:00 AM EDT Office Visit Cardiology, [facility] [address] [facility] [place] [address] Alexandra Mackenzie [facility] [place] [address] 10/10/2024 3:30 PM EDT Imaging Radiology [facility] [address] [facility] [place] [address] 10/17/2024 9:00 AM EDT Office Visit Urology, [place] [address] [place] [address] Johnathon Kent PA-C [address] [place] [address] 02/06/2025 9:30 AM EDT Office Visit Cardiology, [facility] [address] [facility] [place] [address] Poncho Robledo DO [address] [facility] [place] [address] Health Maintenance Due Date Last Done Comments Cologuard 1995 Sigmoidoscopy 1995 Fecal Occult Blood Test 12/20/2008 12/21/2007 *ADVANCE DIRECTIVE NOT ON FILE 2019 DISCUSS TOBACCO CESSATION (REFER TO SMARTSET #0058) 06/18/2024 06/18/2023, 01/24/2017 Adult Wellness Visit 02/17/2025 02/18/2024, 10/31/2022, 08/17/2021 Depression Screening 02/17/2025 02/18/2024, 01/02/20 24 HbA1c 07/04/2025 07/04/2024, 03/2024, 02/15/2024, Additional history exists O2 ASSESSMENT COMPLETED IN PAST YEAR FOR COPD 07/08/2025 07/08/2024 GFR 07/10/2025 07/10/2024, 07/2024, 07/09/2024, Additional history exists Albumin/Creatinine Ratio 08/17/2026 024, [...] this encounter Medical Devices Implanted Type Area Hot Tar Roofer Device Identifier Shelf Expiration Date Model / Serial / Lot Lead Kit Trial [id number] 50cm - [id number] - [id number] Implanted:Qty: 1 on 05/08/2024 by Maged Monreal DO at OR [facility] Left: Back [employer] : PAIN MGMT 03/18/2026 [id number] 50E0 / [id number] / Lead Kit Trial [id number] 50cm - [id number] - [id number] Implanted:Qty: 1 on 05/08/2024 by Maged Monreal DO at OR [facility] Right: Back [employer] : PAIN MGMT 03/18/2026 [id number] 50E0 / [id number] / Suture Steel 6 B&S19 M654g - [id number] Implanted:Qty: 1 on 07/08/2024 by Jayden Galvan MD [place] [facility] [place]/A: Sternum JNJ : [employer] 03/08/2029 M654G / / 103BLE Marker Coronary - [id number] Implanted:Qty: 1 on 07/08/2024 by Jayden Galvan MD at [place] [facility] [place] N/A: Heart [employer] 05/08/2027 [facility] / / [id number] Marker Coronary - [id number] Implanted:Qty: 1 on 07/08/2024 by Jayden Galvan MD at [place] [facility] [place] N/A: Heart [employer] 06/07/2027 [facility] / / [id number] documented as of this encounter Advance Directives * Full Code (Latest Code Status on File) Date Activated Date Inactivated Comments 07/08/2024 12:14 PM This order r eflects the patients wishes and were consensually agreed upon. Question Answer Comments Discussion of Advance Directives occurred with: Patient Care Teams Teletype Or Varitype Keyboard Operator Relationship Specialty Start Date End Date Leon Galvan DO [address] [place] [address] PCP - General Internal Medicine 12/28/23 documented as of this encounter
--- OUTSIDE RECORDS SUMMARY | 2024-08-06 22:37 | External Medical Summary ---
Author Name Unknown Address Unknown Organization K01:LABORATORY [facility] [place] - [address] [place] [address] Laboratory Report Ordering Provider Test Date Status LEVY JAMESON 07/10/2024 03:48:50 Final Observation Date Value Abnormality Reference (Units ) Status BUN 07/10/2024 03:48:50 25 Above high normal 6-20 (mg/dL) Final Creatinine 07/10/2024 03:48:50 1.5 Above high normal 0.6-1.2 (mg/dL) Final Glomerular filtration rate/1.73 sq M.predicted [Volume Rate/Area] in Serum, Plasma or Blood by Creatinine-based formula (CKD-EPI) 07/10/2024 03:48:50 50 Below low normal >=60 (mL/min) Final eGFR is calculated based on the CKD-EPI 2020 equation. Sodium 07/10/2024 03:48:50 138 135-146 (m mol/L) Final Potassium 07/10/2024 03:48:50 4.2 3.5-5.1 (m mol/L) Final Cl 07/10/2024 03:48:50 104 98-107 (mm ol/L) Final CO2 07/10/2024 03:48:50 23 22-32 (mmo l/L) Final Anion gap 07/10/2024 03:48:50 11 7-15 (mmol /L) Final Glucose 07/10/2024 03:48:50 147 Above high normal 70 -120 (mg/dL) Final Calcium 07/10/2024 03:48:50 8.3 Below low normal 8.4 -10.2 (mg/dL) Final Performing Location LABORATORY [facility] [place] - [address] [place] [address]
--- OUTSIDE RECORDS SUMMARY | 2024-08-06 22:37 | External Medical Summary ---
Author Name Unknown Address Unknown Organization K01:LABORATORY [facility] [place] - [address] [place] [address] Laboratory Report Ordering Provider Test Date Status JOSUE ROGER 07/12/2024 15:59:00 Final Observation Date Value Abnormality Reference (Units ) Status BUN 07/12/2024 15:59:00 34 Above high normal 6-20 (mg/dL) Final Creatinine 07/12/2024 15:59:00 1.2 0.6-1.2 (mg/dL) Final Glomerular filtration rate/1.73 sq M.predicted [Volume Rate/Area] in Serum, Plasma or Blood by Creatinine-based formula (CKD-EPI) 07/12/2024 15:59:00 67 >=60 (mL/min) Final eGFR is calculated based on the CKD-EPI 2020 equation. Sodium 07/12/2024 15:59:00 140 135-146 (m mol/L) Final Potassium 07/12/2024 15:59:00 4.2 3.5-5.1 (m mol/L) Final Cl 07/12/2024 15:59:00 104 98-107 (mm ol/L) Final CO2 07/12/2024 15:59:00 24 22-32 (mmo l/L) Final Anion gap 07/12/2024 15:59:00 12 7-15 (mmol /L) Final Glucose 07/12/2024 15:59:00 169 Above high normal 70 -120 (mg/dL) Final Calcium 07/12/2024 15:59:00 8.4 8.4-10.2 ( mg/dL) Final Performing Location LABORATORY [facility] [place] - [address] [facility] [address]
--- OUTSIDE RECORDS SUMMARY | 2024-08-06 22:37 | External Medical Summary ---
Author Name Unknown Address Unknown Organization K01:LABORATORY [facility] [place] - [address] [facility] [place] [address] Laboratory Report Ordering Provider Test Date Status LEVY AJMESON 07/10/2024 03:48:50 Final Observation Date Value Abnormality Reference (Units ) Status SYNC LEUKOCYTES IN BLOOD BY AUTOMATED COUNT 07/10/2024 03:48:50 9.22 4.00-10.80 (K/uL) Final Segs 07/10/2024 03:48:50 77.3 Above high normal 40.0-75.0 (%) Final Lymphs % 07/10/2024 03:48:50 13.2 Below low normal 18.0-42.0 (%) Final Monos 07/10/2024 03:48:50 8.9 1.0-11.0 (%) Final Eosinophils 07/10/2024 03:48:50 0.1 0.0-6.0 (%) Final Basos 07/10/2024 03:48:50 0.1 0.0-2.0 (%) Final Immature Granulocyte, Percent 07/10/2024 03:48:50 0.4 0.0-2.0 (%) Final Absolute Segs 07/10/2024 03:48:50 7.12 1.80-7.70 (K/uL) Final Lymphs, absolute 07/10/2024 03:48:50 1.22 1.00-4.80 (K/ul) Final Monos, Abs 07/10/2024 03:48:50 0.82 0.00-1.10 (K/uL) Final Eos, Abs 07/10/2024 03:48:50 0.01 0.00-0.70 (K/uL) Final Basos, Abs 07/10/2024 03:48:50 0.01 0.00-0.20 (K/uL) Final Immature Granulocytes, Number 07/10/2024 03:48:50 0.04 0.00-0.20 (K/uL) Final Performing Location LABORATORY [facility] [place] - [address] [facility] [address]
--- OUTSIDE RECORDS SUMMARY | 2024-08-06 22:37 | External Medical Summary | Summary of Care ---
Author Name Unknown Organization [facility] Address [address] [place] [address] Phone [phone] Care Team Providers Care Lead Maintenance Technician Name Role Phone Leon Galvan DO Primary Care Provider [phone] Encounter Details Date Type Department Care Team (Late st Contact Info) Description 07/10/2024 Documentation [facility] [address] [place], [place] [phone] Sakshi Staton RN [address] [place], [place] [phone] Allergies Active Allergy Reactions Criticality Noted Date [...] (Lasix)Indicatio ns:Heart failure, systolic, due to CAD ([facility]) take one pill by mouth once a [...] disease,Heart failure, systolic, due to CAD (HCC),Old [place] (myocardial infarction),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 100 Tablet 3 4 10:41 AM EDT 02/07/20 23 Suspended Ezetimibe 10 MG Oral Tablet (Zetia)Indicatio ns:Dyslipidemia, goal LDL below 70 TAKE ONE TABLET BY MOUTH DAILY 100 Tablet 3 4 10:41 AM EDT 02/07/20 23 Suspended Nitroglycerin 0.4 MG Sublingual Tablet Sublingual (Nitrostat)Indic ations:Coronary artery disease of [place] artery of [place] heart with stable angina pectoris (HCC) Place [...] 4 07/08/2024 Coronary artery disease invo lving [place] coronary artery of [place] heart with unstable angina pectoris 07/03/2024 Vitamin [...] failure, systolic, due to CAD 09/08/2013 Old RI (myocardial infarction) 09/08/2013 Dyslipidemia, goal LDL below 70 06/15/2009 Overview (06/15/2009): Per Lipid Taxonomy. Esophageal reflux 12/03/2007 BPH without obstruction/lower urinary tract symp toms 08/03/2006 Tobacco use disorder 06/03/2002 documented as of this encounter (statuses as of 07/10/2024) Resolved Problems Problem Noted Date Diagnosed Date Resolved Date Type 2 diabetes mellitus wit h autonomic neuropathy 08/17/2023 09/17/2023 Atherosclerosis of [place] co ronary artery without angina pectoris 08/17/2023 [...] Notes * Sakshi Staton RN - 07/10/2024 11:42 AM EST Henri Vigil was referred as a potential candidate for enrollment for [facility]. A review of this chart was completed and: Henri meets criteria for [facility]. Jump to Initiation Referring care team was notified via : Epic communication documented in this encounter Plan of Treatment Upcoming Encounters Date Type Department Care Team (Late st Contact Info) Description 07/10/2024 5:10 PM EST Anticoagulation Family Practice [address] [place] [address] [place] [address] College, Pharmacist [address] [place] [address] 09/17/2024 8:40 AM EDT Office Visit Family Practice [address] [place] [address] [address] [place] [address] Leon Galvan, DO [address] [facility] [place] [address] 09/18/2024 8:00 AM EDT Office Visit Cardiology, [facility] [address] [facility] [place] [address] Alexandra Mackenzie CRNP 132 [facility] [place] [address] 10/10/2024 3:30 PM EDT Imaging Radiology [facility] 132 [facility] [place] [address] 10/17/2024 9:00 AM EDT Office Visit Urology, [place] [address] [place] [address] Johnathon Kent PA-C [address] [place] [address] 02/06/2025 9:30 AM EDT Office Visit Cardiology, [facility] [address] [facility] [place] [address] Poncho Robledo, DO [address] [facility] [place] [address] Health Maintenance Due Date Last Done Comments [...] this encounter Medical Devices Implanted Type Area Team Truck Driver Device Identifier Shelf Expiration Date Model / Serial / Lot Lead Kit Trial [id number] 50cm - [id number] - [id number] Implanted:Qty: 1 on 05/08/2024 by Maged Monreal DO at OR [facility] Left: Back [employer] : PAIN MGMT 03/18/2026 [id number] 50E0 / [id number] / Lead Kit Trial [id number] 50cm - [id number] - [id number] Implanted:Qty: 1 on 05/08/2024 by Maged Monreal DO at OR [facility] Right: Back [employer] : PAIN MGMT 03/18/2026 [id number] 50E0 / [id number] / Suture Steel 6 B&S19 M654g - [id number] Implanted:Qty: 1 on 07/08/2024 by Jayden Galvan MD at [place] [facility] [place] N/A: Sternum JNJ : [employer] 03/08/2029 M654G / / 103BLE Marker Coronary - [id number] Implanted:Qty: 1 on 07/08/2024 by Jayden Galvan MD at OR [facility] [place] N/A: Heart [employer] 05/08/2027 [facility] / / [id number] Marker Coronary - [id number] Implanted:Qty: 1 on 07/08/2024 by Jayden Galvan MD at OR [facility] [place] N/A: Heart [employer] 06/07/2027 [facility] / / [id number] documented as of this encounter Advance Directives * Full Code (Latest Code Status on File) Date Activated Date Inactivated Comments 07/08/2024 12:14 PM This order r eflects the patients wishes and were consensually agreed upon. Question Answer Comments Discussion of Advance Directives occurred with: Patient Care Teams Lead Maintenance Technician Relationship Specialty Start Date End Date Leon Galvan DO [address] [facility] [place] [address] PCP - General Internal Medicine 12/28/23 documented as of this encounter
--- OUTSIDE RECORDS SUMMARY | 2024-08-06 22:37 | External Medical Summary ---
Author Name Unknown Address Unknown Organization K01:[facility] - [address] [place] [address] Laboratory Report Ordering Provider Test Date Status LEVY JAMESON 07/13/2024 04:43:00 Final Observation Date Value Abnormality Reference (Units ) Status Magnesium 07/13/2024 04:43:00 2.3 1.5-2.6 (m g/dL) Final Performing Location [facility] - [address] [place] [address]
--- OUTSIDE RECORDS SUMMARY | 2024-08-06 22:37 | External Medical Summary ---
Author Name Unknown Address Unknown Organization [id number]:LABORATORY [facility] [place] - [address] [place] [address] Laboratory Report Ordering Provider Test Date Status LEVY JAMESON 07/13/2024 04:43:00 Final Observation Date Value Abnormality Reference (Units ) Status WBC, Total 07/13/2024 04:43:00 5.95 4.00-10.80 (K/uL) Final RBC 07/13/2024 04:43:00 3.12 4.50-5.25 (M/uL) Final Hemoglobin 07/13/2024 04:43:00 10.0 Below low normal 14.0-16.8 (g/dL) Final HCT 07/13/2024 04:43:00 30.4 Below low normal 40.0-48.4 (%) Final MCV 07/13/2024 04:43:00 97.4 82.0-99.5 (fL) Final MCH 07/13/2024 04:43:00 32.1 27.0-34.0 (pg) Final MCHC 07/13/2024 04:43:00 32.9 32.0-36.0 (g/dL) Final RDW 07/13/2024 04:43:00 13.9 11.5-15.5 (%) Final Platelets 07/13/2024 04:43:00 153 140-400 (K/uL) Final MPV 07/13/2024 04:43:00 10.7 6.6-11.1 (fL) Final Nucleated erythrocytes/100 leukocytes [Ratio] in Blood by Automated count 07/13/2024 04:43:00 0 <=0 (/100 WBCs) Final Performing Location LABORATORY [facility] - [address] [place] [address]
--- OUTSIDE RECORDS SUMMARY | 2024-08-06 22:37 | External Medical Summary ---
Author Name Unknown Address Unknown Organization [id number]:[facility]ORY [facility] [place] [address] [place] [address] Laboratory Report Ordering Provider Test Date Status LEVY JAMESON 07/11/2024 04:10:00 Final Observation Date Value Abnormality Reference (Units ) Status BUN 07/11/2024 04:10:00 30 Above high normal 6-20 (mg/dL) Final Creatinine 07/11/2024 04:10:00 1.1 0.6-1.2 (mg/dL) Final Glomerular filtration rate/1.73 sq M.predicted [Volume Rate/Area] in Serum, Plasma or Blood by Creatinine-based formula (CKD-EPI) 07/11/2024 04:10:00 72 >=60 (mL/min) Final eGFR is calculated based on the CKD-EPI 2020 equation. Sodium 07/11/2024 04:10:00 141 135-146 (m mol/L) Final Potassium 07/11/2024 04:10:00 4.1 3.5-5.1 (m mol/L) Final Cl 07/11/2024 04:10:00 106 98-107 (mm ol/L) Final CO2 07/11/2024 04:10:00 24 22-32 (mmo l/L) Final Anion gap 07/11/2024 04:10:00 11 7-15 (mmol /L) Final Glucose 07/11/2024 04:10:00 102 70-120 (mg /dL) Final Calcium 07/11/2024 04:10:00 8.5 8.4-10.2 ( mg/dL) Final Performing Location [facility]ORY [facility] [place] - [address] [place] [address]
--- OUTSIDE RECORDS SUMMARY | 2024-08-06 22:37 | External Medical Summary | Summary of Care ---
Author Name Unknown Organization [facility] Address [address] [place] [address] Phone [phone] Care Team Providers Care Traveler Changer Name Role Phone Leon Galvan DO Primary Care Provider [phone] Reason for Visit * Reason Comments Dosage Adjustment Via Phone (anticoag Cl inic) Encounter Details Date Type Department Care Team (Late st Contact Info) Description 07/10/2024 5:10 PM EST Anticoagulation Family Practice 65 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 100 Tablet 3 4 10:41 AM EDT 02/07/20 23 Suspended Ezetimibe 10 MG Oral Tablet (Zetia)Indicatio ns:Dyslipidemia, goal LDL below 70 TAKE ONE TABLET BY MOUTH DAILY 100 Tablet 3 4 10:41 AM EDT 02/07/20 23 Suspended Nitroglycerin 0.4 MG Sublingual Tablet Sublingual (Nitrostat)Indic ations:Coronary artery disease of [place] artery of [place] heart with stable angina pectoris (HCC) Place [...] 4 07/08/2024 Coronary artery disease invo lving [place] coronary artery of [place] heart with unstable angina pectoris 07/03/2024 Vitamin [...] h autonomic neuropathy 08/17/2023 09/17/2023 Atherosclerosis of [place] co ronary artery without angina pectoris 08/17/2023 [...] No 06/18/2023 Does the household have a [facility] source of income? (Household - for [...] Progress Notes * Patsy Hansen RPh - 07/10/2024 1:40 PM EST Patient currently admitted with no specific plan for date of discharge. Will continue to follow fordischarge. Patsy Saldana, Pharm D, BCACP Clinical Pharmacist 65 [facility] 07/10/2024, 1:42 PM Ph. [phone] documented in this encounter Plan of Treatment Upcoming Encounters Date Type Department Care Team (Late st Contact Info) Description 07/14/2024 3:30 PM EST Anticoagulation Family Practice 65 [facility] 293 [facility] [place] [address] College, Pharmacist 65 [facility] 293 [place] [address] 09/17/2024 8:40 AM EDT Office Visit Family Practice 65 [facility] 293 [facility], [place] [address] Leon Galvan, 293 [facility], [place] [address] 09/18/2024 8:00 AM EDT Office Visit Cardiology, [facility] 132 [facility] [place] [address] Alexandra Mackenzie CRNP 132 [facility] [place] [address] 10/10/2024 3:30 PM EDT Imaging Radiology [facility] 132 [facility] [place] [address] 10/17/2024 9:00 AM EDT Office Visit Urology, [place] [address] [place] [address] Johnathon Kent PAEmerson [address] [place] [address] 02/06/2025 9:30 AM EDT Office Visit Cardiology, [facility] [address] [place] [address] Poncho Robledo, [address] [place] [address] Health Maintenance Due Date Last Done Comments [...] this encounter Medical Devices Implanted Type Area Maintenance Services Dispatcher Device Identifier Shelf Expiration Date Model / Serial / Lot Lead Kit Trial [id number] 50cm - [id number] - [id number] Implanted:Qty: 1 on 05/08/2024 by Maged Monreal DO at OR [facility] Left: Back [employer] : PAIN MGMT 03/18/2026 [id number] 50E0 / [id number] / Lead Kit Trial [id number] 50cm - [id number] - [id number] Implanted:Qty: 1 on 05/08/2024 by Maged Monreal DO at OR [facility] Right: Back [employer] : PAIN MGMT 03/18/2026 [id number] 50E0 / [id number] / Suture Steel 6 B&S19 M654g - [id number] Implanted:Qty: 1 on 07/08/2024 by Jayden Galvan MD at [place] [facility] N/A: Sternum JNJ : [employer] 03/08/2029 [id number] / / 103BLE Marker Coronary - [id number] Implanted:Qty: 1 on 07/08/2024 by Jayden Galvan MD at [place] [facility] N/A: Heart [employer] 05/08/2027 AM-SD / / [id number] Marker Coronary - [id number] Implanted:Qty: 1 on 07/08/2024 by Jayden Galvan MD at [place] [facility] N/A: Heart [employer] 06/07/2027 AM-SD / / [id number] documented as of this encounter Visit Diagnoses Diagnosis Coronary artery disease involving kot[place] coronary artery of k[place] heart with unstable angina pectoris (HCC)- Primary S/P CABG x 4 Postsurgical aortocoronary bypass status documented in this encounter Advance Directives * Full Code (Latest Code Status on File) Date Activated Date Inactivated Comments 07/08/2024 12:14 PM This order r eflects the patients wishes and were consensually agreed upon. Question Answer Comments Discussion of Advance Directives occurred with: Patient Care Teams Traveler Changer Relationship Specialty Start Date End Date Leon Galvan DO [address] [place] [address] PCP - General Internal Medicine 12/28/23 documented as of this encounter
--- OUTSIDE RECORDS SUMMARY | 2024-08-06 22:37 | External Medical Summary | Summary of Care ---
Author Name Unknown Organization [facility] Address [address] [place] [address] Phone [phone] Care Team Providers Care Hardwood Flooring Specialist Name Role Phone Leon Galvan DO Primary Care Provider [phone] Encounter Details Date Type Department Care Team (Late st Contact Info) Description 07/09/2024 Population Health External Data Unspecified Department Allergies Active Allergy Reactions Criticality Noted Date Comments Codeine Other (Please comment) High 09/08/2013 Severe Skin peeling documented as of this encounter (statuses as of 07/09/2024) Medications oxygen GASIndications:C hronic coronary artery disease,COPD, [...] (Lasix)Indicatio ns:Heart failure, systolic, due to CAD (HCC) take [...] disease,Heart failure, systolic, due to CAD (HCC),Old [place] (myocardial infarction),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 100 Tablet 3 4 10:41 AM EDT 02/07/20 23 Suspended Ezetimibe 10 MG Oral Tablet (Zetia)Indicatio ns:Dyslipidemia, goal LDL below 70 TAKE ONE TABLET BY MOUTH DAILY 100 Tablet 3 4 10:41 AM EDT 02/07/20 23 Suspended Nitroglycerin 0.4 MG Sublingual Tablet Sublingual (Nitrostat)Indic ations:Coronary artery disease of [place] artery of [place] heart with stable angina pectoris (HCC) Place [...] as of this encounter (statuses as of 07/09/2024) Active Problems Problem Noted Date Diagnosed Date S/P CABG x 4 07/08/2024 Coronary artery disease invo lving [place] coronary artery of [place] heart with unstable angina pectoris 07/03/2024 Vitamin [...] as of this encounter (statuses as of 07/09/2024) Resolved Problems Problem Noted Date Diagnosed Date Resolved Date Type 2 diabetes mellitus wit h autonomic neuropathy 08/17/2023 09/17/2023 Atherosclerosis of [place] co ronary artery without angina pectoris 08/17/2023 [...] as of this encounter (statuses as of 07/09/2024) Immunizations Name Administration Dates Next Due COVID-19 [...] have concerns for your saf ety? No 06/18/2023 Do you have concerns for you r family's safety? (Household - for ages 0-17 years) Not on file 06/18/2023 Utilities Answer Date Recorded Do you have trouble paying y our heating, water, or electric bill? No 06/18/2023 Is your family able to pay t he heat, water, or electric bill? (Household - for ages 0-17 years) Not on file 06/18/2023 Does your family have access to good internet? (Household - for ages 0-17 years) Not on file 06/18/2023 Employment Status Answer Date Recorded Are you [...] 06/18/2023 Transportation Needs Answer Date Record ed READ ONLY Do you have troubl e getting a ride to medical visits or work? Never True 06/18/2023 Does your family have a hard time getting a ride to doctors visits? (Household - for ages 0-17 years) Not on file 06/18/2023 Has lack of transportation k ept you from medical appointments, meetings, work, or from getting things needed for daily living? Check all that apply. (Adult - for ages 18 years and over) Not on file 06/18/2023 Do you (or your family) have trouble finding or paying for a ride (transportation)? (Household - for ages 0-17 years) Not on file 06/18/2023 Housing Stability Answer Date Recorded Do you currently live in a s helter or have no steady place to sleep at night? No 06/18/2023 READ ONLY Do you think you a re at risk of becoming homeless? No 06/18/2023 Does your family worry about paying for your home or becoming homeless? (Household - for ages 0-17 years) Not on file 1 08/19/2022 Are you homeless or worried that you might be in the future? (Adult - for ages 18 years and over) Not on file Are you (or your family) scottie eless or worried that you might be in the future? (Household - for ages 0-17 years) Not on file Food Insecurity Answer Date Recorded Do you need food for this week? No 06/18/2023 Are you able to get enough f ood for your family? (Household - for ages 0-17 years) Not on file 06/18/2023 Does your family need food t his week? (Household - for ages 0-17 years) Not on file 06/18/2023 Do you always have enough fo od for your family? (Household - for ages 0-17 years) Not on file 06/18/2023 Sex and Gender Information Value Date Recorded Sex Assigned at Male 02/20/2019 8:49 AM EDT Legal Sex Male 5:44 AM EST Gender Identity Male 02/20/2019 8:49 AM EDT Sexual Orientation Choose not to disclose 2018 8:49 AM EDT documented as of this encounter Plan of Treatment Upcoming Encounters Date Type Department Care Team (Late st Contact Info) Description 07/10/2024 5:10 PM EST Anticoagulation Pharmacy, [facility] [address] [facility] [place] [address] [facility] 132 [facility] [place] [address] 09/17/2024 8:40 AM EDT Office Visit Family Practice [address] [place] [address] [address] [place] [address] Leon Galvan, [address] [place] [address] 09/18/2024 8:00 AM EDT Office Visit Cardiology, [facility] 132 [facility] [place] [address] Alexandra Mackenzie CRNP [address] [facility] [place] [address] 10/10/2024 3:30 PM EDT Imaging Radiology [facility] [address] [place] [address] 10/17/2024 9:00 AM EDT Office Visit Urology, [place] [address] [place] [address] Johnathon Kent PA-C [address] [place] [address] 02/06/2025 9:30 AM EDT Office Visit Cardiology, [facility] [address] [place] [address] Poncho Robledo, [address] [place] [address] Health Maintenance Due Date Last Done Comments [...] PAST YEAR FOR COPD 07/08/2025 07/08/2024 GFR 07/09/2025 07/09/2024, 06/10, 07/08/2024, Additional history exists Albumin/Creatinine Ratio 08/17/2026 024, [...] this encounter Medical Devices Implanted Type Area Outpatient Dietitian Device Identifier Shelf Expiration Date Model / Serial / Lot Lead Kit Trial [id number] 50cm - [id number] - [id number] Implanted:Qty: 1 on 05/08/2024 by Maged Monreal DO at OR [facility] Left: Back [employer] : PAIN MGMT 03/18/2026 [id number] 50E0 / [id number] / Lead Kit Trial [id number] 50cm - [id number] - [id number] Implanted:Qty: 1 on 05/08/2024 by Maged Monreal DO at OR [facility] Right: Back [employer] : PAIN MGMT 03/18/2026 [id number] 50E0 / [id number] / Suture Steel 6 B&S19 M654g - [id number] Implanted:Qty: 1 on 07/08/2024 by Jayden Galvan MD at OR [facility] N/A: Sternum JNJ : [employer] 03/08/2029 M654G / / 103BLE Marker Coronary - [id number] Implanted:Qty: 1 on 07/08/2024 by Jayden Galvan MD at OR [facility] N/A: Heart [employer] 05/08/2027 AM-SD / / [id number] Marker Coronary - [id number] Implanted:Qty: 1 on 07/08/2024 by Jayden Galvan MD at OR [facility] N/A: Heart [employer] 06/07/2027 AM-SD / / [id number] documented as of this encounter Advance Directives * Full Code (Latest Code Status on File) Date Activated Date Inactivated Comments 07/08/2024 12:14 PM This order r eflects the patients wishes and were consensually agreed upon. Question Answer Comments Discussion of Advance Directives occurred with: Patient Care Teams Hardwood Flooring Specialist Relationship Specialty Start Date End Date Leon Galavn DO [address] [place] [address] PCP - General Internal Medicine 12/28/23 documented as of this encounter
--- OUTSIDE RECORDS SUMMARY | 2024-08-06 22:37 | External Medical Summary ---
Author Name Unknown Address Unknown Organization : Laboratory Report Ordering Provider Test Date Status BLAKE RAM 07/12/2024 14:15:45 Final Observation Date Value Abnormality Reference (Units ) Status Glucose Point of Care 07/12/2024 14:15:45 171 Above high normal 70-120 (mg/dL) Final Performing Location
--- OUTSIDE RECORDS SUMMARY | 2024-08-06 22:37 | External Medical Summary ---
Author Name Unknown Address Unknown Organization K01:LABORATORY [facility] [place] - [facility] [address] [facility] [address] Laboratory Report Ordering Provider Test Date Status LEVY JAMESON 07/10/2024 03:48:50 Final Observation Date Value Abnormality Reference (Units ) Status WBC, Total 07/10/2024 03:48:50 9.22 4.00-10.80 (K/uL) Final RBC 07/10/2024 03:48:50 2.98 4.50-5.25 (M/uL) Final Hemoglobin 07/10/2024 03:48:50 9.4 Below low normal 14.0-16.8 (g/dL) Final HCT 07/10/2024 03:48:50 28.5 Below low normal 40.0-48.4 (%) Final MCV 07/10/2024 03:48:50 95.6 82.0-99.5 (fL) Final MCH 07/10/2024 03:48:50 31.5 27.0-34.0 (pg) Final MCHC 07/10/2024 03:48:50 33.0 32.0-36.0 (g/dL) Final RDW 07/10/2024 03:48:50 13.4 11.5-15.5 (%) Final Platelets 07/10/2024 03:48:50 89 Below low normal 140-400 (K/uL) Final MPV 07/10/2024 03:48:50 11.3 6.6-11.1 (fL) Final Nucleated erythrocytes/100 leukocytes [Ratio] in Blood by Automated count 07/10/2024 03:48:50 0 <=0 (/100 WBCs) Final Performing Location LABORATORY [facility] [place] - [address] [place] [address]
--- OUTSIDE RECORDS SUMMARY | 2024-08-06 22:37 | External Medical Summary ---
Author Name Unknown Address Unknown Organization K01:[facility] [place] [address] [place] [address] Laboratory Report Ordering Provider Test Date Status LEVY JAMESON 07/12/2024 04:40:00 Final Observation Date Value Abnormality Reference (Units ) Status BUN 07/12/2024 04:40:00 32 Above high normal 6-20 (mg/dL) Final Creatinine 07/12/2024 04:40:00 1.3 Above high normal 0.6-1.2 (mg/dL) Final Glomerular filtration rate/1.73 sq M.predicted [Volume Rate/Area] in Serum, Plasma or Blood by Creatinine-based formula (CKD-EPI) 07/12/2024 04:40:00 61 >=60 (mL/min) Final eGFR is calculated based on the CKD-EPI 2020 equation. Sodium 07/12/2024 04:40:00 142 135-146 (m mol/L) Final Potassium 07/12/2024 04:40:00 3.6 3.5-5.1 (m mol/L) Final Cl 07/12/2024 04:40:00 107 98-107 (mm ol/L) Final CO2 07/12/2024 04:40:00 26 22-32 (mmo l/L) Final Anion gap 07/12/2024 04:40:00 9 7-15 (mmol /L) Final Glucose 07/12/2024 04:40:00 83 70-120 (mg /dL) Final Calcium 07/12/2024 04:40:00 8.2 Below low normal 8.4 -10.2 (mg/dL) Final Performing Location [facility] [address] [place] [address]
--- OUTSIDE RECORDS SUMMARY | 2024-08-06 22:37 | External Medical Summary ---
Author Name Unknown Address Unknown Organization K01:[facility] [place] [address] [place] [address] Laboratory Report Ordering Provider Test Date Status LEVY JAMESON 07/10/2024 03:48:50 Final Warfarin Therapy
INR: 2 .0-3.0 conventional anticoagulation
INR: 2.5- 3.5 high intensity anticoagulation Observation Date Value Abnormality Reference (Units ) Status PT 07/10/2024 03:48:50 16.8 Above high normal 11 .6-15.2 (seconds) Final INR 07/10/2024 03:48:50 1.4 Above high normal 0. 8-1.2 Final Performing Location [facility] [place] [address] [place] [address]
--- OUTSIDE RECORDS SUMMARY | 2024-08-06 22:37 | External Medical Summary ---
Author Name Unknown Address Unknown Organization K01:[facility]ATORY [facility] [place] - [address] [facility] [place] [address] Laboratory Report Ordering Provider Test Date Status LEVY JAMESON 07/13/2024 04:43:00 Final Observation Date Value Abnormality Reference (Units ) Status SYNC LEUKOCYTES IN BLOOD BY AUTOMATED COUNT 07/13/2024 04:43:00 5.95 4.00-10.80 (K/uL) Final Segs 07/13/2024 04:43:00 63.6 40.0-75.0 (%) Final Lymphs % 07/13/2024 04:43:00 21.2 18.0-42.0 (%) Final Monos 07/13/2024 04:43:00 12.1 Above high normal 1.0-11.0 (%) Final Eosinophils 07/13/2024 04:43:00 2.5 0.0-6.0 (%) Final Basos 07/13/2024 04:43:00 0.3 0.0-2.0 (%) Final Immature Granulocyte, Percent 07/13/2024 04:43:00 0.3 0.0-2.0 (%) Final Absolute Segs 07/13/2024 04:43:00 3.78 1.80-7.70 (K/uL) Final Lymphs, absolute 07/13/2024 04:43:00 1.26 1.00-4.80 (K/ul) Final Monos, Abs 07/13/2024 04:43:00 0.72 0.00-1.10 (K/uL) Final Eos, Abs 07/13/2024 04:43:00 0.15 0.00-0.70 (K/uL) Final Basos, Abs 07/13/2024 04:43:00 0.02 0.00-0.20 (K/uL) Final Immature Granulocytes, Number 07/13/2024 04:43:00 0.02 0.00-0.20 (K/uL) Final Performing Location LABORATORY [facility] [place] - [address] [facility] [address]
--- OUTSIDE RECORDS SUMMARY | 2024-08-06 22:37 | External Medical Summary ---
Author Name Unknown Address Unknown Organization K01:[facility] [place] [facility] [address] [facility] [address] Laboratory Report Ordering Provider Test Date Status LEVY JAMESON 07/12/2024 04:40:00 Final Observation Date Value Abnormality Reference (Units ) Status WBC, Total 07/12/2024 04:40:00 6.57 4.00-10.80 (K/uL) Final RBC 07/12/2024 04:40:00 2.75 4.50-5.25 (M/uL) Final Hemoglobin 07/12/2024 04:40:00 8.8 Below low normal 14.0-16.8 (g/dL) Final HCT 07/12/2024 04:40:00 26.6 Below low normal 40.0-48.4 (%) Final MCV 07/12/2024 04:40:00 96.7 82.0-99.5 (fL) Final MCH 07/12/2024 04:40:00 32.0 27.0-34.0 (pg) Final MCHC 07/12/2024 04:40:00 33.1 32.0-36.0 (g/dL) Final RDW 07/12/2024 04:40:00 13.6 11.5-15.5 (%) Final Platelets 07/12/2024 04:40:00 130 Below low normal 140-400 (K/uL) Final MPV 07/12/2024 04:40:00 11.4 6.6-11.1 (fL) Final Nucleated erythrocytes/100 leukocytes [Ratio] in Blood by Automated count 07/12/2024 04:40:00 0 <=0 (/100 WBCs) Final Performing Location [facility]ORY [facility] [place] [address] [place] [address]
--- OUTSIDE RECORDS SUMMARY | 2024-08-06 22:37 | External Medical Summary ---
Author Name Unknown Address Unknown Organization K01:[facility] [place] [address] [place] [address] Laboratory Report Ordering Provider Test Date Status HARSHAD VARMA 07/09/2024 22:53:11 Final Observation Date Value Abnormality Reference (Units ) Status Potassium 07/09/2024 22:53:11 4.0 3.5-5.1 (m mol/L) Final Performing Location [facility] [place] [address] [place] [address]
--- OUTSIDE RECORDS SUMMARY | 2024-08-06 22:37 | External Medical Summary ---
Author Name Unknown Address Unknown Organization K01:[facility]ORATORY [facility] - [address] [place] [address] Laboratory Report Ordering Provider Test Date Status LEVY JAMESON 07/12/2024 04:40:00 Final Observation Date Value Abnormality Reference (Units ) Status SYNC LEUKOCYTES IN BLOOD BY AUTOMATED COUNT 07/12/2024 04:40:00 6.57 4.00-10.80 (K/uL) Final Segs 07/12/2024 04:40:00 68.4 40.0-75.0 (%) Final Lymphs % 07/12/2024 04:40:00 18.9 18.0-42.0 (%) Final Monos 07/12/2024 04:40:00 10.2 1.0-11.0 (%) Final Eosinophils 07/12/2024 04:40:00 1.5 0.0-6.0 (%) Final Basos 07/12/2024 04:40:00 0.5 0.0-2.0 (%) Final Immature Granulocyte, Percent 07/12/2024 04:40:00 0.5 0.0-2.0 (%) Final Absolute Segs 07/12/2024 04:40:00 4.50 1.80-7.70 (K/uL) Final Lymphs, absolute 07/12/2024 04:40:00 1.24 1.00-4.80 (K/ul) Final Monos, Abs 07/12/2024 04:40:00 0.67 0.00-1.10 (K/uL) Final Eos, Abs 07/12/2024 04:40:00 0.10 0.00-0.70 (K/uL) Final Basos, Abs 07/12/2024 04:40:00 0.03 0.00-0.20 (K/uL) Final Immature Granulocytes, Number 07/12/2024 04:40:00 0.03 0.00-0.20 (K/uL) Final Performing Location [facility] - [address] [facility] [address]
--- OUTSIDE RECORDS SUMMARY | 2024-08-06 22:37 | External Medical Summary ---
Author Name Unknown Address Unknown Organization : Laboratory Report Ordering Provider Test Date Status BLAKE RAM 07/09/2024 04:01:57 Final Observation Date Value Abnormality Reference (Units ) Status Glucose Point of Care 07/09/2024 04:01:57 102 70-120 (mg/dL) Final Performing Location
--- OUTSIDE RECORDS SUMMARY | 2024-08-06 22:37 | External Medical Summary ---
Author Name Unknown Address Unknown Organization K01:[facility] [place] [address] [place] [address] Laboratory Report Ordering Provider Test Date Status LEVY JAMESON 07/11/2024 04:10:00 Final Warfarin Therapy
INR: 2 .0-3.0 conventional anticoagulation
INR: 2.5- 3.5 high intensity anticoagulation Observation Date Value Abnormality Reference (Units ) Status PT 07/11/2024 04:10:00 27.0 Above high normal 11 .6-15.2 (seconds) Final INR 07/11/2024 04:10:00 2.5 Above high normal 0. 8-1.2 Final Performing Location [facility] [place] [address] [place] [address]
--- OUTSIDE RECORDS SUMMARY | 2024-08-06 22:37 | External Medical Summary ---
Author Name Unknown Address Unknown Organization K01:[place] [place] [facility] [address] [facility] [address] Laboratory Report Ordering Provider Test Date Status JOSUE ROGER 07/12/2024 15:59:00 Final Observation Date Value Abnormality Reference (Units ) Status WBC, Total 07/12/2024 15:59:00 6.21 4.00-10.80 (K/uL) Final RBC 07/12/2024 15:59:00 3.04 4.50-5.25 (M/uL) Final Hemoglobin 07/12/2024 15:59:00 9.8 Below low normal 14.0-16.8 (g/dL) Final HCT 07/12/2024 15:59:00 28.9 Below low normal 40.0-48.4 (%) Final MCV 07/12/2024 15:59:00 95.1 82.0-99.5 (fL) Final MCH 07/12/2024 15:59:00 32.2 27.0-34.0 (pg) Final MCHC 07/12/2024 15:59:00 33.9 32.0-36.0 (g/dL) Final RDW 07/12/2024 15:59:00 13.6 11.5-15.5 (%) Final Platelets 07/12/2024 15:59:00 146 140-400 (K/uL) Final MPV 07/12/2024 15:59:00 11.0 6.6-11.1 (fL) Final Nucleated erythrocytes/100 leukocytes [Ratio] in Blood by Automated count 07/12/2024 15:59:00 0 <=0 (/100 WBCs) Final Performing Location [facility] [place] [address] [place] [address]
--- OUTSIDE RECORDS SUMMARY | 2024-08-06 22:37 | External Medical Summary ---
Author Name Unknown Address Unknown Organization K01:[facility]ATORY [facility] - [address] [place] [address] Laboratory Report Ordering Provider Test Date Status LEVY JAMESON 07/10/2024 03:48:50 Final Observation Date Value Abnormality Reference (Units ) Status Magnesium 07/10/2024 03:48:50 2.5 1.5-2.6 (m g/dL) Final Performing Location LAB[facility]ATORY [facility] - [address] [place] [address]
--- OUTSIDE RECORDS SUMMARY | 2024-08-06 22:37 | External Medical Summary ---
Author Name Unknown Address Unknown Organization K01:[place] [facility] [place] [address] [place] [address] Laboratory Report Ordering Provider Test Date Status LEVY JAMESON 07/13/2024 04:43:00 Final Warfarin Therapy
INR: 2 .0-3.0 conventional anticoagulation
INR: 2.5- 3.5 high intensity anticoagulation Observation Date Value Abnormality Reference (Units ) Status PT 07/13/2024 04:43:00 24.8 Above high normal 11 .6-15.2 (seconds) Final INR 07/13/2024 04:43:00 2.2 Above high normal 0. 8-1.2 Final Performing Location [place] [facility] [place] [address] [place] [address]
--- OUTSIDE RECORDS SUMMARY | 2024-08-06 22:37 | External Medical Summary ---
Author Name Unknown Address Unknown Organization K01:[facility]ORY [facility] [place] - [address] [place] [address] Laboratory Report Ordering Provider Test Date Status LEVY JAMESON 07/12/2024 04:40:00 Final Warfarin Therapy
INR: 2 .0-3.0 conventional anticoagulation
INR: 2.5- 3.5 high intensity anticoagulation Observation Date Value Abnormality Reference (Units ) Status PT 07/12/2024 04:40:00 26.9 Above high normal 11 .6-15.2 (seconds) Final INR 07/12/2024 04:40:00 2.5 Above high normal 0. 8-1.2 Final Performing Location LAB[facility]ATORY [facility] [place] - [address] [place] [address]
--- OUTSIDE RECORDS SUMMARY | 2024-08-06 22:37 | External Medical Summary ---
Author Name Unknown Address Unknown Organization K01:[facility]ATORY [facility] - [address] [place] [address] Laboratory Report Ordering Provider Test Date Status LEVY JAMESON 07/12/2024 04:40:00 Final Observation Date Value Abnormality Reference (Units ) Status Magnesium 07/12/2024 04:40:00 2.1 1.5-2.6 (m g/dL) Final Performing Location LAB[facility]AT[facility] - [address] [place] [address]
--- OUTSIDE RECORDS SUMMARY | 2024-08-06 22:37 | External Medical Summary ---
Author Name Unknown Address Unknown Organization K01:LABORATORY [facility] [place] - [facility] [address] [facility] [address] Laboratory Report Ordering Provider Test Date Status LEVY JAMESON 07/11/2024 04:10:00 Final Observation Date Value Abnormality Reference (Units ) Status WBC, Total 07/11/2024 04:10:00 8.55 4.00-10.80 (K/uL) Final RBC 07/11/2024 04:10:00 3.04 4.50-5.25 (M/uL) Final Hemoglobin 07/11/2024 04:10:00 9.9 Below low normal 14.0-16.8 (g/dL) Final HCT 07/11/2024 04:10:00 29.2 Below low normal 40.0-48.4 (%) Final MCV 07/11/2024 04:10:00 96.1 82.0-99.5 (fL) Final MCH 07/11/2024 04:10:00 32.6 27.0-34.0 (pg) Final MCHC 07/11/2024 04:10:00 33.9 32.0-36.0 (g/dL) Final RDW 07/11/2024 04:10:00 13.4 11.5-15.5 (%) Final Platelets 07/11/2024 04:10:00 96 Below low normal 140-400 (K/uL) Final MPV 07/11/2024 04:10:00 11.4 6.6-11.1 (fL) Final Nucleated erythrocytes/100 leukocytes [Ratio] in Blood by Automated count 07/11/2024 04:10:00 0 <=0 (/100 WBCs) Final Performing Location LAB[facility]ATORY [facility] [place] - [address] [place] [address]
--- OUTSIDE RECORDS SUMMARY | 2024-08-06 22:37 | External Medical Summary ---
Author Name Unknown Address Unknown Organization K01:LABORATORY [facility] [place] - [address] [place] [address] Laboratory Report Ordering Provider Test Date Status LEVY JAMESON 07/13/2024 04:43:00 Final Observation Date Value Abnormality Reference (Units ) Status BUN 07/13/2024 04:43:00 33 Above high normal 6-20 (mg/dL) Final Creatinine 07/13/2024 04:43:00 1.2 0.6-1.2 (mg/dL) Final Glomerular filtration rate/1.73 sq M.predicted [Volume Rate/Area] in Serum, Plasma or Blood by Creatinine-based formula (CKD-EPI) 07/13/2024 04:43:00 62 >=60 (mL/min) Final eGFR is calculated based on the CKD-EPI 2020 equation. Sodium 07/13/2024 04:43:00 143 135-146 (m mol/L) Final Potassium 07/13/2024 04:43:00 4.2 3.5-5.1 (m mol/L) Final Cl 07/13/2024 04:43:00 109 Above high normal 98 -107 (mmol/L) Final CO2 07/13/2024 04:43:00 25 22-32 (mmo l/L) Final Anion gap 07/13/2024 04:43:00 9 7-15 (mmol /L) Final Glucose 07/13/2024 04:43:00 91 70-120 (mg /dL) Final Calcium 07/13/2024 04:43:00 8.3 Below low normal 8.4 -10.2 (mg/dL) Final Performing Location LABORATORY [facility] [place] - [address] [place] [address]
--- OUTSIDE RECORDS SUMMARY | 2024-08-06 22:37 | External Medical Summary ---
Author Name Unknown Address Unknown Organization K01:LAB[facility]ATORY [facility] [place] [address] [place] [address] Laboratory Report Ordering Provider Test Date Status ANNYDAGMAR CALDWELL 07/09/2024 05:51:33 Final Observation Date Value Abnormality Reference (Units ) Status Lactic Acid 07/09/2024 05:51:33 0.9 0.4-2.0 (mmol/L) Final Performing Location LABORATORY [facility] - [address] [place] [address]
--- OUTSIDE RECORDS SUMMARY | 2024-08-06 22:37 | External Medical Summary ---
Author Name Unknown Address Unknown Organization K01:[facility]ORY [facility] [place] [address] [facility] [place] [address] Laboratory Report Ordering Provider Test Date Status LEVY JAMESON 07/11/2024 04:10:00 Final Observation Date Value Abnormality Reference (Units ) Status SYNC LEUKOCYTES IN BLOOD BY AUTOMATED COUNT 07/11/2024 04:10:00 8.55 4.00-10.80 (K/uL) Final Segs 07/11/2024 04:10:00 76.4 Above high normal 40.0-75.0 (%) Final Lymphs % 07/11/2024 04:10:00 13.9 Below low normal 18.0-42.0 (%) Final Monos 07/11/2024 04:10:00 8.8 1.0-11.0 (%) Final Eosinophils 07/11/2024 04:10:00 0.2 0.0-6.0 (%) Final Basos 07/11/2024 04:10:00 0.2 0.0-2.0 (%) Final Immature Granulocyte, Percent 07/11/2024 04:10:00 0.5 0.0-2.0 (%) Final Absolute Segs 07/11/2024 04:10:00 6.53 1.80-7.70 (K/uL) Final Lymphs, absolute 07/11/2024 04:10:00 1.19 1.00-4.80 (K/ul) Final Monos, Abs 07/11/2024 04:10:00 0.75 0.00-1.10 (K/uL) Final Eos, Abs 07/11/2024 04:10:00 0.02 0.00-0.70 (K/uL) Final Basos, Abs 07/11/2024 04:10:00 0.02 0.00-0.20 (K/uL) Final Immature Granulocytes, Number 07/11/2024 04:10:00 0.04 0.00-0.20 (K/uL) Final Performing Location LABORATORY [facility] [place] [address] [facility] [address]
--- OUTSIDE RECORDS SUMMARY | 2024-08-06 22:38 | External Medical Summary ---
Author Name Unknown Address Unknown Organization : Laboratory Report Ordering Provider Test Date Status BLAKE RAM 07/08/2024 10:18:53 Final NORMAL (NON-HEPARINIZED) 74- 137 SECONDS
HEPARINIZED 200+ SECONDS
CRITICAL GREATER THAN 1000 SECONDS
null Observation Date Value Abnormality Reference (Units ) Status Kaolin activated time [Units/volume] in Blood 07/08/2024 10:18:53 608 50-1000 (secs) Final Performing Location
--- OUTSIDE RECORDS SUMMARY | 2024-08-06 22:38 | External Medical Summary ---
Author Name Unknown Address Unknown Organization K01:[place]ORY [facility] [place] [address] [facility] [address] Laboratory Report Ordering Provider Test Date Status LEVY JAMESON 07/09/2024 00:03:50 Final Observation Date Value Abnormality Reference (Units ) Status Body temperature 07/09/2024 00:03:50 37.0 (C) Final pH of Arterial blood 07/09/2024 00:03:50 7.440 7.350-7.450 (units) Final Carbon dioxide [Partial pressure] in Arterial blood 07/09/2024 00:03:50 37.9 35.0-45.0 (mmHg) Final Oxygen [Partial pressure] in Arterial blood 07/09/2024 00:03:50 153.0 Above high normal 75.0-100.0 (mmHg) Final Base excess, Arterial 07/09/2024 00:03:50 1.6 -2.0-2.0 (mmol/L) Final Hemoglobin [Mass/volume] in Blood by Oximetry 07/09/2024 00:03:50 9.6 Below low normal 14.0-16.8 (g/dL) Final Oxyhemoglobin, Arterial (FO2HB) 07/09/2024 00:03:50 97.3 94.0-99.0 (% total Hgb) Final Carboxyhemoglobin 07/09/2024 00:03:50 1.6 Above high normal <=1.5 (% total Hgb) Final Smokers: 0-9.0 % Methemoglobin 07/09/2024 00:03:50 0.9 <=1.5 (% total Hgb) Final Deoxyhemoglobin/Hemog lobin.total in Arterial blood 07/09/2024 00:03:50 0.2 0.0-5.0 (% total Hgb) Final Oxygen content in Arterial blood 07/09/2024 00:03:50 13.4 Below low normal 15.0-24.0 (%vol) Final Oxygen/Total gas setting [Volume Fraction] Ventilator 07/09/2024 00:03:50 Not Provided (%) Final O2 FLOW, ARTERIAL - [facility] 07/09/2024 00:03:50 Not Provided (L/min) Final Bicarbonate, Venous, POC (i-STAT) 07/09/2024 00:03:50 25.3 23.0-31.0 (mmol/L) Final Performing Location LAB[facility]ORY [facility] [place] [address] [facility] [address]
--- OUTSIDE RECORDS SUMMARY | 2024-08-06 22:38 | External Medical Summary ---
Author Name Unknown Address Unknown Organization K01:LABORATORY [facility] – [place] - [address] [facility] [address] Laboratory Report Ordering Provider Test Date Status LEVY JAMESON 07/08/2024 21:43:01 Final Observation Date Value Abnormality Reference (Units ) Status Body temperature 07/08/2024 21:43:01 37.0 (C) Final pH of Arterial blood 07/08/2024 21:43:01 7.407 7.350-7.450 (units) Final Carbon dioxide [Partial pressure] in Arterial blood 07/08/2024 21:43:01 40.8 35.0-45.0 (mmHg) Final Oxygen [Partial pressure] in Arterial blood 07/08/2024 21:43:01 157.0 Above high normal 75.0-100.0 (mmHg) Final Base excess, Arterial 07/08/2024 21:43:01 0.9 -2.0-2.0 (mmol/L) Final Hemoglobin [Mass/volume] in Blood by Oximetry 07/08/2024 21:43:01 9.2 Below low normal 14.0-16.8 (g/dL) Final Oxyhemoglobin, Arterial (FO2HB) 07/08/2024 21:43:01 98.2 94.0-99.0 (% total Hgb) Final Carboxyhemoglobin 07/08/2024 21:43:01 1.2 <=1.5 (% total Hgb) Final Smokers: 0-9.0 % Methemoglobin 07/08/2024 21:43:01 0.6 <=1.5 (% total Hgb) Final Deoxyhemoglobin/Hemog lobin.total in Arterial blood 07/08/2024 21:43:01 0.0 0.0-5.0 (% total Hgb) Final Oxygen content in Arterial blood 07/08/2024 21:43:01 13.0 Below low normal 15.0-24.0 (%vol) Final Oxygen/Total gas setting [Volume Fraction] Ventilator 07/08/2024 21:43:01 Not Provided (%) Final O2 FLOW, ARTERIAL - [facility] 07/08/2024 21:43:01 Not Provided (L/min) Final Bicarbonate, Venous, POC (i-STAT) 07/08/2024 21:43:01 25.1 23.0-31.0 (mmol/L) Final Performing Location LABORATORY [facility] – [place] - [facility] [place] [address]
--- OUTSIDE RECORDS SUMMARY | 2024-08-06 22:38 | External Medical Summary ---
Author Name Unknown Address Unknown Organization K01:[place] [facility] [place] [address] [place] [address] Laboratory Report Ordering Provider Test Date Status LEVY JAMESON 07/08/2024 12:32:26 Final Anticoagulation may affect t esting. Refer to [employer] Test [employer] for a list of effects. Observation Date Value Abnormality Reference (Units ) Status aPTT panel - Platelet poor plasma 07/08/2024 12:32:26 73 Above high normal 21-38 (seconds) Final Performing Location [place] [facility] [place] [address] [place] [address]
--- OUTSIDE RECORDS SUMMARY | 2024-08-06 22:38 | External Medical Summary ---
Author Name Unknown Address Unknown Organization K01:[place] [facility] [place] [facility] [address] [facility] [address] Laboratory Report Ordering Provider Test Date Status LEVY JAMESON 07/08/2024 17:49:57 Final Observation Date Value Abnormality Reference (Units ) Status WBC, Total 07/08/2024 17:49:57 8.86 4.00-10.80 (K/uL) Final RBC 07/08/2024 17:49:57 3.02 4.50-5.25 (M/uL) Final Hemoglobin 07/08/2024 17:49:57 9.5 Below low normal 14.0-16.8 (g/dL) Final HCT 07/08/2024 17:49:57 28.6 Below low normal 40.0-48.4 (%) Final MCV 07/08/2024 17:49:57 94.7 82.0-99.5 (fL) Final MCH 07/08/2024 17:49:57 31.5 27.0-34.0 (pg) Final MCHC 07/08/2024 17:49:57 33.2 32.0-36.0 (g/dL) Final RDW 07/08/2024 17:49:57 13.2 11.5-15.5 (%) Final Platelets 07/08/2024 17:49:57 116 Below low normal 140-400 (K/uL) Final MPV 07/08/2024 17:49:57 10.6 6.6-11.1 (fL) Final Nucleated erythrocytes/100 leukocytes [Ratio] in Blood by Automated count 07/08/2024 17:49:57 0 <=0 (/100 WBCs) Final Performing Location [place] [place] [address] [facility] [address]
--- OUTSIDE RECORDS SUMMARY | 2024-08-06 22:38 | External Medical Summary ---
Author Name Unknown Address Unknown Organization : Laboratory Report Ordering Provider Test Date Status BLAKE RAM 07/08/2024 14:13:05 Final Observation Date Value Abnormality Reference (Units ) Status Glucose Point of Care 07/08/2024 14:13:05 146 Above high normal 70-120 (mg/dL) Final Performing Location
--- OUTSIDE RECORDS SUMMARY | 2024-08-06 22:38 | External Medical Summary ---
Author Name Unknown Address Unknown Organization K01:LABORATORY [facility] [place] - [address] [place] [address] Laboratory Report Ordering Provider Test Date Status LEVY JAMESON 07/08/2024 12:32:26 Final Observation Date Value Abnormality Reference (Units ) Status BUN 07/08/2024 12:32:26 12 6-20 (mg/dL) Final Creatinine 07/08/2024 12:32:26 1.1 0.6-1.2 (mg/dL) Final Glomerular filtration rate/1.73 sq M.predicted [Volume Rate/Area] in Serum, Plasma or Blood by Creatinine-based formula (CKD-EPI) 07/08/2024 12:32:26 73 >=60 (mL/min) Final eGFR is calculated based on the CKD-EPI 2020 equation. Sodium 07/08/2024 12:32:26 142 135-146 (m mol/L) Final Potassium 07/08/2024 12:32:26 4.1 3.5-5.1 (m mol/L) Final Cl 07/08/2024 12:32:26 105 98-107 (mm ol/L) Final CO2 07/08/2024 12:32:26 23 22-32 (mmo l/L) Final Anion gap 07/08/2024 12:32:26 14 7-15 (mmol /L) Final Glucose 07/08/2024 12:32:26 154 Above high normal 70 -120 (mg/dL) Final Calcium 07/08/2024 12:32:26 7.9 Below low normal 8.4 -10.2 (mg/dL) Final Performing Location LABORATORY [facility] [place] - [address] [place] [address]
--- OUTSIDE RECORDS SUMMARY | 2024-08-06 22:38 | External Medical Summary ---
Author Name Unknown Address Unknown Organization K01:LABORATORY [facility] - [address] [place] [address] Laboratory Report Ordering Provider Test Date Status LEVY JAMESON 07/08/2024 12:32:26 Final Observation Date Value Abnormality Reference (Units ) Status Magnesium 07/08/2024 12:32:26 3.5 Above high normal 1. 5-2.6 (mg/dL) Final Performing Location LABORATORY [facility] - [address] [place] [address]
--- OUTSIDE RECORDS SUMMARY | 2024-08-06 22:38 | External Medical Summary ---
Author Name Unknown Address Unknown Organization : Laboratory Report Ordering Provider Test Date Status BLAKE RAM 07/09/2024 02:00:17 Final Observation Date Value Abnormality Reference (Units ) Status Glucose Point of Care 07/09/2024 02:00:17 109 70-120 (mg/dL) Final Performing Location
--- OUTSIDE RECORDS SUMMARY | 2024-08-06 22:38 | External Medical Summary ---
Author Name Unknown Address Unknown Organization K01:LABORATORY [facility] [place] - [address] [place] [address] Laboratory Report Ordering Provider Test Date Status LEVY JAMESON 07/09/2024 03:53:09 Final Observation Date Value Abnormality Reference (Units ) Status BUN 07/09/2024 03:53:09 18 6-20 (mg/dL) Final Creatinine 07/09/2024 03:53:09 1.5 Above high normal 0.6-1.2 (mg/dL) Final Glomerular filtration rate/1.73 sq M.predicted [Volume Rate/Area] in Serum, Plasma or Blood by Creatinine-based formula (CKD-EPI) 07/09/2024 03:53:09 50 Below low normal >=60 (mL/min) Final eGFR is calculated based on the CKD-EPI 2020 equation. Sodium 07/09/2024 03:53:09 145 135-146 (m mol/L) Final Potassium 07/09/2024 03:53:09 4.0 3.5-5.1 (m mol/L) Final Cl 07/09/2024 03:53:09 110 Above high normal 98 -107 (mmol/L) Final CO2 07/09/2024 03:53:09 25 22-32 (mmo l/L) Final Anion gap 07/09/2024 03:53:09 10 7-15 (mmol /L) Final Glucose 07/09/2024 03:53:09 104 70-120 (mg /dL) Final Calcium 07/09/2024 03:53:09 8.3 Below low normal 8.4 -10.2 (mg/dL) Final Performing Location LABORATORY [facility] [place] - [address] [place] [address]
--- OUTSIDE RECORDS SUMMARY | 2024-08-06 22:38 | External Medical Summary ---
Author Name Unknown Address Unknown Organization K01[place] [facility] [place] [facility] [address] [place] [address] Laboratory Report Ordering Provider Test Date Status LEVY JAMESON 07/09/2024 03:53:09 Final Warfarin Therapy
INR: 2 .0-3.0 conventional anticoagulation
INR: 2.5- 3.5 high intensity anticoagulation Observation Date Value Abnormality Reference (Units ) Status PT 07/09/2024 03:53:09 15.0 11.6-15.2 (seconds) Final INR 07/09/2024 03:53:09 1.2 0.8-1.2 Final Performing Location [place] [facility] [place] [facility] [address] [place] [address]
--- OUTSIDE RECORDS SUMMARY | 2024-08-06 22:38 | External Medical Summary ---
Author Name Unknown Address Unknown Organization K01:LABORATORY [facility] [place] - [address] [facility] [address] Laboratory Report Ordering Provider Test Date Status LEVY JAMESON 07/08/2024 14:13:35 Final Observation Date Value Abnormality Reference (Units ) Status Body temperature 07/08/2024 14:13:35 37.0 (C) Final pH of Arterial blood 07/08/2024 14:13:35 7.316 Below low normal 7.350-7.450 (units) Final Carbon dioxide [Partial pressure] in Arterial blood 07/08/2024 14:13:35 44.9 35.0-45.0 (mmHg) Final Oxygen [Partial pressure] in Arterial blood 07/08/2024 14:13:35 157.0 Above high normal 75.0-100.0 (mmHg) Final Base excess, Arterial 07/08/2024 14:13:35 -3.3 Below low normal -2.0-2.0 (mmol/L) Final Hemoglobin [Mass/volume] in Blood by Oximetry 07/08/2024 14:13:35 11.2 Below low normal 14.0-16.8 (g/dL) Final Oxyhemoglobin, Arterial (FO2HB) 07/08/2024 14:13:35 95.8 94.0-99.0 (% total Hgb) Final Carboxyhemoglobin 07/08/2024 14:13:35 1.4 <=1.5 (% total Hgb) Final Smokers: 0-9.0 % Methemoglobin 07/08/2024 14:13:35 1.8 Above high normal <=1.5 (% total Hgb) Final Deoxyhemoglobin/Hemog lobin.total in Arterial blood 07/08/2024 14:13:35 1.0 0.0-5.0 (% total Hgb) Final Oxygen content in Arterial blood 07/08/2024 14:13:35 15.4 15.0-24.0 (%vol) Final Potassium, Whole Blood 07/08/2024 14:13:35 3.6 3.5-5.1 (mmol/L) Final Sodium, Whole Blood 07/08/2024 14:13:35 141 135-146 (mmol/L) Final Chloride, Whole Blood 07/08/2024 14:13:35 109 Above high normal 98-107 (mmol/L) Final Calcium.ionized [Moles/volume] in Blood by Ion-selective membrane electrode (ISE) 07/08/2024 14:13:35 1.23 1.13-1.32 (mmol/L) Final Anion gap, Whole Blood 07/08/2024 14:13:35 9.0 7.0-15.0 (mmol/L) Final Glucose, whole blood 07/08/2024 14:13:35 140 Above high normal 70-120 (mg/dL) Final Oxygen/Total gas setting [Volume Fraction] Ventilator 07/08/2024 14:13:35 50 (%) Final O2 FLOW, ARTERIAL - [facility] 07/08/2024 14:13:35 Not Provided (L/min) Final Bicarbonate, Venous, POC (i-STAT) 07/08/2024 14:13:35 22.3 Below low normal 23.0-31.0 (mmol/L) Final Performing Location LABORATORY [facility] [place] - [address] [facility] [address]
--- OUTSIDE RECORDS SUMMARY | 2024-08-06 22:38 | External Medical Summary ---
Author Name Unknown Address Unknown Organization K01:LABORATORY [facility] [place] - [address] [place] [address] Laboratory Report Ordering Provider Test Date Status LEVY JAMESON 07/08/2024 12:32:26 Final Stop Collection after Mathew perez is removed Observation Date Value Abnormality Reference (Units ) Status Oxygen saturation in Venous blood 07/08/2024 12:32:26 83.5 40.0-85.0 (%) Final Performing Location LABORATORY [facility] [place] - [address] [place] [address]
--- OUTSIDE RECORDS SUMMARY | 2024-08-06 22:38 | External Medical Summary ---
Author Name Unknown Address Unknown Organization : Laboratory Report Ordering Provider Test Date Status BLAKE RAM 07/08/2024 11:24:03 Final Observation Date Value Abnormality Reference (Units) Status Blood draw [PhenX] 07/08/2024 11:24:03 Arterial Draw Final pH, POC (i-STAT) 07/08/2024 11:24:03 7.345 Below low normal 7.350-7.450 Final PCO2 POC (i-STAT) 07/08/2024 11:24:03 48.2 Above high normal 35.0-45.0 (mm Hg) Final PO2 POC (i-STAT) 07/08/2024 11:24:03 303 Above high normal 75-100 (mm Hg) Final Base excess standard in Arterial blood by calculation 07/08/2024 11:24:03 0 -2-2 (mmol/L) Final Bicarbonate, Venous, POC (i-STAT) 07/08/2024 11:24:03 26.3 23.0-31.0 (mmol/L) Final O2 Sat, calculated POC (i-STAT) 07/08/2024 11:24:03 100.0 Above high normal 94.0-98.0 (%) Final Glucose, whole blood 07/08/2024 11:24:03 161 Above high normal 70-120 (mg/dL) Final Potassium, Whole Blood 07/08/2024 11:24:03 4.9 3.5-5.1 (mmol/L) Final Sodium, Whole Blood 07/08/2024 11:24:03 139 135-146 (mmol/L) Final Calcium, Ionized, Whole Blood 07/08/2024 11:24:03 1.13 1.13-1.32 (mmol/L) Final Hemoglobin POC (i-STAT) 07/08/2024 11:24:03 9.9 Below low normal 14.0-16.8 (g/dL) Final HCT 07/08/2024 11:24:03 29 Below low normal 40-48 (%) Final Performing Location
--- OUTSIDE RECORDS SUMMARY | 2024-08-06 22:38 | External Medical Summary ---
Author Name Unknown Address Unknown Organization [id number] [address] [place] [address] Laboratory Report Ordering Provider Test Date Status LEVY JAMESON 07/08/2024 17:49:57 Final Observation Date Value Abnormality Reference (Units ) Status Magnesium 07/08/2024 17:49:57 2.9 Above high normal 1. 5-2.6 (mg/dL) Final Performing Location [facility] - [address] [place] [address]
--- OUTSIDE RECORDS SUMMARY | 2024-08-06 22:38 | External Medical Summary ---
Author Name Unknown Address Unknown Organization : Laboratory Report Ordering Provider Test Date Status BLAKE RAM 07/08/2024 21:50:33 Final Observation Date Value Abnormality Reference (Units ) Status Glucose Point of Care 07/08/2024 21:50:33 111 70-120 (mg/dL) Final Performing Location
--- OUTSIDE RECORDS SUMMARY | 2024-08-06 22:38 | External Medical Summary ---
Author Name Unknown Address Unknown Organization K01:[place] [facility] [place] [address] [place] [address] Laboratory Report Ordering Provider Test Date Status LEVY JAMESON 07/08/2024 12:32:26 Final Observation Date Value Abnormality Reference (Units ) Status Antithrombin III 07/08/2024 12:32:26 63 Below low nor mal 80-120 (%) Final Performing Location LABORATORY [facility] - [address] [place] [address]
--- OUTSIDE RECORDS SUMMARY | 2024-08-06 22:38 | External Medical Summary ---
Author Name Unknown Address Unknown Organization : Laboratory Report Ordering Provider Test Date Status BLAKE RAM 07/08/2024 10:40:07 Final Observation Date Value Abnormality Reference (Units) Status Blood draw [PhenX] 07/08/2024 10:40:07 Arterial Draw Final pH, POC (i-STAT) 07/08/2024 10:40:07 7.328 Below low normal 7.350-7.450 Final PCO2 POC (i-STAT) 07/08/2024 10:40:07 45.3 Above high normal 35.0-45.0 (mm Hg) Final PO2 POC (i-STAT) 07/08/2024 10:40:07 240 Above high normal 75-100 (mm Hg) Final Base excess standard in Arterial blood by calculation 07/08/2024 10:40:07 -2 -2-2 (mmol/L) Final Bicarbonate, Venous, POC (i-STAT) 07/08/2024 10:40:07 23.8 23.0-31.0 (mmol/L) Final O2 Sat, calculated POC (i-STAT) 07/08/2024 10:40:07 100.0 Above high normal 94.0-98.0 (%) Final Glucose, whole blood 07/08/2024 10:40:07 151 Above high normal 70-120 (mg/dL) Final Potassium, Whole Blood 07/08/2024 10:40:07 6.2 Above high normal 3.5-5.1 (mmol/L) Final Sodium, Whole Blood 07/08/2024 10:40:07 136 135-146 (mmol/L) Final Calcium, Ionized, Whole Blood 07/08/2024 10:40:07 0.96 Below low normal 1.13-1.32 (mmol/L) Final Hemoglobin POC (i-STAT) 07/08/2024 10:40:07 9.5 Below low normal 14.0-16.8 (g/dL) Final HCT 07/08/2024 10:40:07 28 Below low normal 40-48 (%) Final Performing Location
--- OUTSIDE RECORDS SUMMARY | 2024-08-06 22:38 | External Medical Summary ---
Author Name Unknown Address Unknown Organization K01:[place] [facility] [place] [facility] [address] [place] [address] Laboratory Report Ordering Provider Test Date Status LEVY JAMESON 07/08/2024 12:32:26 Final Warfarin Therapy
INR: 2 .0-3.0 conventional anticoagulation
INR: 2.5- 3.5 high intensity anticoagulation Observation Date Value Abnormality Reference (Units ) Status PT 07/08/2024 12:32:26 14.1 11.6-15.2 (seconds) Final INR 07/08/2024 12:32:26 1.1 0.8-1.2 Final Performing Location [facility] [place] [facility] [address] [place] [address]
--- OUTSIDE RECORDS SUMMARY | 2024-08-06 22:38 | External Medical Summary ---
Author Name Unknown Address Unknown Organization K01:LABORATORY [place] [address] [facility] [address] Laboratory Report Ordering Provider Test Date Status LEVY JAMESON 07/08/2024 12:32:26 Final Observation Date Value Abnormality Reference (Units) Status Clot formation [Time] in Blood by Thromboelastography 07/08/2024 12:32:26 7.6 2.5-8.3 (minutes) Final Clot strength in Blood by Thromboelastography 07/08/2024 12:32:26 2.7 0.5-3.7 (minutes) Final Clot angle in Blood by Thromboelastography 07/08/2024 12:32:26 41.1 Below low normal 46.8-78.4 (degrees) Final Maximum clot firmness [Length] in Blood by Thromboelastography 07/08/2024 12:32:26 70.8 50.6-72.5 (mm) Final Coagulation index in Blood by Thromboelastography 07/08/2024 12:32:26 -2.0 -3.0-3.0 Final Clot Lysis [Length fraction] in Blood by Thromboelastography --30 minutes post maximum clot amplitude 07/08/2024 12:32:26 0.0 0.0-7.5 (%) Final This is an appended report. These results have been appended to a previously preliminary verified report. Performing Location LABORATORY [facility] [place] - [address] [facility] [address]
--- OUTSIDE RECORDS SUMMARY | 2024-08-06 22:38 | External Medical Summary ---
Author Name Unknown Address Unknown Organization : Laboratory Report Ordering Provider Test Date Status BLAKE RAM 07/08/2024 15:33:53 Final Observation Date Value Abnormality Reference (Units ) Status Glucose Point of Care 07/08/2024 15:33:53 110 70-120 (mg/dL) Final Performing Location
--- OUTSIDE RECORDS SUMMARY | 2024-08-06 22:38 | External Medical Summary ---
Author Name Unknown Address Unknown Organization K01:LABORATORY [facility] [place] [address] [facility] [address] Laboratory Report Ordering Provider Test Date Status LEVY JAMESON 07/08/2024 13:15:54 Final Observation Date Value Abnormality Reference (Units ) Status Body temperature 07/08/2024 13:15:54 37.0 (C) Final pH of Arterial blood 07/08/2024 13:15:54 7.324 Below low normal 7.350-7.450 (units) Final Carbon dioxide [Partial pressure] in Arterial blood 07/08/2024 13:15:54 44.7 35.0-45.0 (mmHg) Final Oxygen [Partial pressure] in Arterial blood 07/08/2024 13:15:54 145.0 Above high normal 75.0-100.0 (mmHg) Final Base excess, Arterial 07/08/2024 13:15:54 -2.9 Below low normal -2.0-2.0 (mmol/L) Final Hemoglobin [Mass/volume] in Blood by Oximetry 07/08/2024 13:15:54 11.8 Below low normal 14.0-16.8 (g/dL) Final Oxyhemoglobin, Arterial (FO2HB) 07/08/2024 13:15:54 95.6 94.0-99.0 (% total Hgb) Final Carboxyhemoglobin 07/08/2024 13:15:54 1.6 Above high normal <=1.5 (% total Hgb) Final Smokers: 0-9.0 % Methemoglobin 07/08/2024 13:15:54 1.5 <=1.5 (% total Hgb) Final Deoxyhemoglobin/Hemog lobin.total in Arterial blood 07/08/2024 13:15:54 1.3 0.0-5.0 (% total Hgb) Final Oxygen content in Arterial blood 07/08/2024 13:15:54 16.1 15.0-24.0 (%vol) Final Potassium, Whole Blood 07/08/2024 13:15:54 3.6 3.5-5.1 (mmol/L) Final Sodium, Whole Blood 07/08/2024 13:15:54 141 135-146 (mmol/L) Final Chloride, Whole Blood 07/08/2024 13:15:54 109 Above high normal 98-107 (mmol/L) Final Calcium.ionized [Moles/volume] in Blood by Ion-selective membrane electrode (ISE) 07/08/2024 13:15:54 1.06 Below low normal 1.13-1.32 (mmol/L) Final Anion gap, Whole Blood 07/08/2024 13:15:54 9.3 7.0-15.0 (mmol/L) Final Glucose, whole blood 07/08/2024 13:15:54 156 Above high normal 70-120 (mg/dL) Final Oxygen/Total gas setting [Volume Fraction] Ventilator 07/08/2024 13:15:54 50 (%) Final O2 FLOW, ARTERIAL - [facility] 07/08/2024 13:15:54 Not Provided (L/min) Final Bicarbonate, Venous, POC (i-STAT) 07/08/2024 13:15:54 22.6 Below low normal 23.0-31.0 (mmol/L) Final Performing Location LABORATORY [facility] [place] - [address] [facility] [address]
--- OUTSIDE RECORDS SUMMARY | 2024-08-06 22:38 | External Medical Summary ---
Author Name Unknown Address Unknown Organization K01:[place] [facility] [place] [address] [facility] [address] Laboratory Report Ordering Provider Test Date Status LEVY JAMESON 07/08/2024 17:49:27 Final Observation Date Value Abnormality Reference (Units ) Status Body temperature 07/08/2024 17:49:27 37.0 (C) Final pH of Arterial blood 07/08/2024 17:49:27 7.370 7.350-7.450 (units) Final Carbon dioxide [Partial pressure] in Arterial blood 07/08/2024 17:49:27 43.4 35.0-45.0 (mmHg) Final Oxygen [Partial pressure] in Arterial blood 07/08/2024 17:49:27 163.0 Above high normal 75.0-100.0 (mmHg) Final Base excess, Arterial 07/08/2024 17:49:27 -0.3 -2.0-2.0 (mmol/L) Final Hemoglobin [Mass/volume] in Blood by Oximetry 07/08/2024 17:49:27 9.8 Below low normal 14.0-16.8 (g/dL) Final Oxyhemoglobin, Arterial (FO2HB) 07/08/2024 17:49:27 96.1 94.0-99.0 (% total Hgb) Final Carboxyhemoglobin 07/08/2024 17:49:27 1.4 <=1.5 (% total Hgb) Final Smokers: 0-9.0 % Methemoglobin 07/08/2024 17:49:27 1.8 Above high normal <=1.5 (% total Hgb) Final Deoxyhemoglobin/Hemog lobin.total in Arterial blood 07/08/2024 17:49:27 0.7 0.0-5.0 (% total Hgb) Final Oxygen content in Arterial blood 07/08/2024 17:49:27 13.6 Below low normal 15.0-24.0 (%vol) Final Potassium, Whole Blood 07/08/2024 17:49:27 4.1 3.5-5.1 (mmol/L) Final Sodium, Whole Blood 07/08/2024 17:49:27 142 135-146 (mmol/L) Final Chloride, Whole Blood 07/08/2024 17:49:27 111 Above high normal 98-107 (mmol/L) Final Calcium.ionized [Moles/volume] in Blood by Ion-selective membrane electrode (ISE) 07/08/2024 17:49:27 1.14 1.13-1.32 (mmol/L) Final Anion gap, Whole Blood 07/08/2024 17:49:27 6.8 Below low normal 7.0-15.0 (mmol/L) Final Glucose, whole blood 07/08/2024 17:49:27 107 70-120 (mg/dL) Final Oxygen/Total gas setting [Volume Fraction] Ventilator 07/08/2024 17:49:27 50 (%) Final O2 FLOW, ARTERIAL - [facility] 07/08/2024 17:49:27 Not Provided (L/min) Final Bicarbonate, Venous, POC (i-STAT) 07/08/2024 17:49:27 24.5 23.0-31.0 (mmol/L) Final Performing Location [place] [facility] [place] [address] [facility] [address]
--- OUTSIDE RECORDS SUMMARY | 2024-08-06 22:38 | External Medical Summary ---
Author Name Unknown Address Unknown Organization K01:[facility]ATORY [facility] [place] - [address] [facility] [address] Laboratory Report Ordering Provider Test Date Status PLACIDO NGUYEN 07/08/2024 11:12:00 Final Observation Date Value Abnormality Reference (Units ) Status Body temperature 07/08/2024 11:12:00 37.0 (C) Final pH of Arterial blood 07/08/2024 11:12:00 7.344 Below low normal 7.350-7.450 (units) Final Carbon dioxide [Partial pressure] in Arterial blood 07/08/2024 11:12:00 46.2 Above high normal 35.0-45.0 (mmHg) Final Oxygen [Partial pressure] in Arterial blood 07/08/2024 11:12:00 190.0 Above high normal 75.0-100.0 (mmHg) Final Base excess, Arterial 07/08/2024 11:12:00 -0.8 -2.0-2.0 (mmol/L) Final Hemoglobin [Mass/volume] in Blood by Oximetry 07/08/2024 11:12:00 10.3 Below low normal 14.0-16.8 (g/dL) Final Oxyhemoglobin, Arterial (FO2HB) 07/08/2024 11:12:00 96.8 94.0-99.0 (% total Hgb) Final Carboxyhemoglobin 07/08/2024 11:12:00 2.2 Above high normal <=1.5 (% total Hgb) Final Smokers: 0-9.0 % Methemoglobin 07/08/2024 11:12:00 0.7 <=1.5 (% total Hgb) Final Deoxyhemoglobin/Hemog lobin.total in Arterial blood 07/08/2024 11:12:00 0.3 0.0-5.0 (% total Hgb) Final Oxygen content in Arterial blood 07/08/2024 11:12:00 14.4 Below low normal 15.0-24.0 (%vol) Final Potassium, Whole Blood 07/08/2024 11:12:00 5.4 Above high normal 3.5-5.1 (mmol/L) Final Sodium, Whole Blood 07/08/2024 11:12:00 137 135-146 (mmol/L) Final Chloride, Whole Blood 07/08/2024 11:12:00 107 98-107 (mmol/L) Final Calcium.ionized [Moles/volume] in Blood by Ion-selective membrane electrode (ISE) 07/08/2024 11:12:00 1.11 Below low normal 1.13-1.32 (mmol/L) Final Anion gap, Whole Blood 07/08/2024 11:12:00 5.8 Below low normal 7.0-15.0 (mmol/L) Final Glucose, whole blood 07/08/2024 11:12:00 170 Above high normal 70-120 (mg/dL) Final Oxygen/Total gas setting [Volume Fraction] Ventilator 07/08/2024 11:12:00 Not Provided (%) Final O2 FLOW, ARTERIAL - [facility] 07/08/2024 11:12:00 Not Provided (L/min) Final Bicarbonate, Venous, POC (i-STAT) 07/08/2024 11:12:00 24.5 23.0-31.0 (mmol/L) Final Performing Location LABORATORY [facility] [place] - [address] [place], [place] [address]
--- OUTSIDE RECORDS SUMMARY | 2024-08-06 22:38 | External Medical Summary ---
Author Name Unknown Address Unknown Organization : Laboratory Report Ordering Provider Test Date Status BLAKE RAM 07/08/2024 11:24:25 Final NORMAL (NON-HEPARINIZED) 74- 137 SECONDS
HEPARINIZED 200+ SECONDS
CRITICAL GREATER THAN 1000 SECONDS
null Observation Date Value Abnormality Reference (Units ) Status Kaolin activated time [Units/volume] in Blood 07/08/2024 11:24:25 112 50-1000 (secs) Final Performing Location
--- OUTSIDE RECORDS SUMMARY | 2024-08-06 22:38 | External Medical Summary ---
Author Name Unknown Address Unknown Organization K01:[place] [facility] [place] [facility] [address] [facility] [facility] [address] Laboratory Report Ordering Provider Test Date Status LEVY JAMESON 07/09/2024 03:53:09 Final Observation Date Value Abnormality Reference (Units ) Status WBC, Total 07/09/2024 03:53:09 8.90 4.00-10.80 (K/uL) Final RBC 07/09/2024 03:53:09 2.79 4.50-5.25 (M/uL) Final Hemoglobin 07/09/2024 03:53:09 9.1 Below low normal 14.0-16.8 (g/dL) Final HCT 07/09/2024 03:53:09 26.8 Below low normal 40.0-48.4 (%) Final MCV 07/09/2024 03:53:09 96.1 82.0-99.5 (fL) Final MCH 07/09/2024 03:53:09 32.6 27.0-34.0 (pg) Final MCHC 07/09/2024 03:53:09 34.0 32.0-36.0 (g/dL) Final RDW 07/09/2024 03:53:09 13.3 11.5-15.5 (%) Final Platelets 07/09/2024 03:53:09 120 Below low normal 140-400 (K/uL) Final MPV 07/09/2024 03:53:09 11.5 6.6-11.1 (fL) Final Nucleated erythrocytes/100 leukocytes [Ratio] in Blood by Automated count 07/09/2024 03:53:09 0 <=0 (/100 WBCs) Final Performing Location [place] [facility] [place] [address] [place] [address]
--- OUTSIDE RECORDS SUMMARY | 2024-08-06 22:38 | External Medical Summary ---
Author Name Unknown Address Unknown Organization : Laboratory Report Ordering Provider Test Date Status BLAKE RAM 07/08/2024 20:00:51 Final Observation Date Value Abnormality Reference (Units ) Status Glucose Point of Care 07/08/2024 20:00:51 125 Above high normal 70-120 (mg/dL) Final Performing Location
--- OUTSIDE RECORDS SUMMARY | 2024-08-06 22:38 | External Medical Summary ---
Author Name Unknown Address Unknown Organization K01:LABORATORY [facility] - [address] [place] [address] Laboratory Report Ordering Provider Test Date Status TRINOLEVY MONACO 07/08/2024 12:32:26 Final Observation Date Value Abnormality Reference (Units ) Status Heparin, unfractionated level 07/08/2024 12:32:26 0.14 Above high normal <0.10 (IU/mL) Final Unfractionated therapeutic r anges for Anti Xa activity:
For Cardiac/Neurologic treatment: 0.3 to 0.6 IU/mL.
For treatment of DVT or Pulmonary Embolism: 0.3 to 0.7 IU/mL. Performing Location LABORATORY [facility] - [address] [place] [address]
--- OUTSIDE RECORDS SUMMARY | 2024-08-06 22:38 | External Medical Summary ---
Author Name Unknown Address Unknown Organization K01:[place]ATORY [facility] [place] - [address] [facility] [address] Laboratory Report Ordering Provider Test Date Status LEVY JAMESON 07/08/2024 23:32:02 Final Observation Date Value Abnormality Reference (Units ) Status Body temperature 07/08/2024 23:32:02 37.0 (C) Final pH of Arterial blood 07/08/2024 23:32:02 7.395 7.350-7.450 (units) Final Carbon dioxide [Partial pressure] in Arterial blood 07/08/2024 23:32:02 42.6 35.0-45.0 (mmHg) Final Oxygen [Partial pressure] in Arterial blood 07/08/2024 23:32:02 161.0 Above high normal 75.0-100.0 (mmHg) Final Base excess, Arterial 07/08/2024 23:32:02 1.1 -2.0-2.0 (mmol/L) Final Hemoglobin [Mass/volume] in Blood by Oximetry 07/08/2024 23:32:02 9.4 Below low normal 14.0-16.8 (g/dL) Final Oxyhemoglobin, Arterial (FO2HB) 07/08/2024 23:32:02 97.3 94.0-99.0 (% total Hgb) Final Carboxyhemoglobin 07/08/2024 23:32:02 1.5 <=1.5 (% total Hgb) Final Smokers: 0-9.0 % Methemoglobin 07/08/2024 23:32:02 1.0 <=1.5 (% total Hgb) Final Deoxyhemoglobin/Hemog lobin.total in Arterial blood 07/08/2024 23:32:02 0.2 0.0-5.0 (% total Hgb) Final Oxygen content in Arterial blood 07/08/2024 23:32:02 13.2 Below low normal 15.0-24.0 (%vol) Final Oxygen/Total gas setting [Volume Fraction] Ventilator 07/08/2024 23:32:02 Not Provided (%) Final O2 FLOW, ARTERIAL - [facility] 07/08/2024 23:32:02 Not Provided (L/min) Final Bicarbonate, Venous, POC (i-STAT) 07/08/2024 23:32:02 25.5 23.0-31.0 (mmol/L) Final Performing Location LABORATORY [facility] [place] - [facility] [place] [address]
--- OUTSIDE RECORDS SUMMARY | 2024-08-06 22:38 | External Medical Summary ---
Author Name Unknown Address Unknown Organization : Laboratory Report Ordering Provider Test Date Status BLAKE RAM 07/08/2024 23:38:11 Final Observation Date Value Abnormality Reference (Units ) Status Glucose Point of Care 07/08/2024 23:38:11 97 70-120 (mg/dL) Final Performing Location
--- OUTSIDE RECORDS SUMMARY | 2024-08-06 22:38 | External Medical Summary ---
Author Name Unknown Address Unknown Organization K01:LABORATORY [facility] [place] - [address] [facility] [address] Laboratory Report Ordering Provider Test Date Status LEVY JAMESON 07/09/2024 03:53:38 Final Observation Date Value Abnormality Reference (Units ) Status Body temperature 07/09/2024 03:53:38 37.0 (C) Final pH of Arterial blood 07/09/2024 03:53:38 7.386 7.350-7.450 (units) Final Carbon dioxide [Partial pressure] in Arterial blood 07/09/2024 03:53:38 45.4 Above high normal 35.0-45.0 (mmHg) Final Oxygen [Partial pressure] in Arterial blood 07/09/2024 03:53:38 135.0 Above high normal 75.0-100.0 (mmHg) Final Base excess, Arterial 07/09/2024 03:53:38 1.9 -2.0-2.0 (mmol/L) Final Hemoglobin [Mass/volume] in Blood by Oximetry 07/09/2024 03:53:38 9.4 Below low normal 14.0-16.8 (g/dL) Final Oxyhemoglobin, Arterial (FO2HB) 07/09/2024 03:53:38 97.1 94.0-99.0 (% total Hgb) Final Carboxyhemoglobin 07/09/2024 03:53:38 1.6 Above high normal <=1.5 (% total Hgb) Final Smokers: 0-9.0 % Methemoglobin 07/09/2024 03:53:38 0.8 <=1.5 (% total Hgb) Final Deoxyhemoglobin/Hemog lobin.total in Arterial blood 07/09/2024 03:53:38 0.5 0.0-5.0 (% total Hgb) Final Oxygen content in Arterial blood 07/09/2024 03:53:38 13.1 Below low normal 15.0-24.0 (%vol) Final Oxygen/Total gas setting [Volume Fraction] Ventilator 07/09/2024 03:53:38 Not Provided (%) Final O2 FLOW, ARTERIAL - [facility] 07/09/2024 03:53:38 Not Provided (L/min) Final Bicarbonate, Venous, POC (i-STAT) 07/09/2024 03:53:38 26.6 23.0-31.0 (mmol/L) Final Performing Location LABORATORY [facility] [place] - [address] [facility] [address]
--- OUTSIDE RECORDS SUMMARY | 2024-08-06 22:38 | External Medical Summary ---
Author Name Unknown Address Unknown Organization K01:LABORATORY [facility] [place] - [address] [facility] [address] Laboratory Report Ordering Provider Test Date Status LEVY JAMESON 07/08/2024 16:39:28 Final Observation Date Value Abnormality Reference (Units ) Status Body temperature 07/08/2024 16:39:28 37.0 (C) Final pH of Arterial blood 07/08/2024 16:39:28 7.300 Below low normal 7.350-7.450 (units) Final Carbon dioxide [Partial pressure] in Arterial blood 07/08/2024 16:39:28 47.6 Above high normal 35.0-45.0 (mmHg) Final Oxygen [Partial pressure] in Arterial blood 07/08/2024 16:39:28 184.0 Above high normal 75.0-100.0 (mmHg) Final Base excess, Arterial 07/08/2024 16:39:28 -3.2 Below low normal -2.0-2.0 (mmol/L) Final Hemoglobin [Mass/volume] in Blood by Oximetry 07/08/2024 16:39:28 10.4 Below low normal 14.0-16.8 (g/dL) Final Oxyhemoglobin, Arterial (FO2HB) 07/08/2024 16:39:28 96.0 94.0-99.0 (% total Hgb) Final Carboxyhemoglobin 07/08/2024 16:39:28 1.3 <=1.5 (% total Hgb) Final Smokers: 0-9.0 % Methemoglobin 07/08/2024 16:39:28 1.8 Above high normal <=1.5 (% total Hgb) Final Deoxyhemoglobin/Hemog lobin.total in Arterial blood 07/08/2024 16:39:28 0.9 0.0-5.0 (% total Hgb) Final Oxygen content in Arterial blood 07/08/2024 16:39:28 14.4 Below low normal 15.0-24.0 (%vol) Final Potassium, Whole Blood 07/08/2024 16:39:28 4.3 3.5-5.1 (mmol/L) Final Sodium, Whole Blood 07/08/2024 16:39:28 141 135-146 (mmol/L) Final Chloride, Whole Blood 07/08/2024 16:39:28 112 Above high normal 98-107 (mmol/L) Final Calcium.ionized [Moles/volume] in Blood by Ion-selective membrane electrode (ISE) 07/08/2024 16:39:28 1.17 1.13-1.32 (mmol/L) Final Anion gap, Whole Blood 07/08/2024 16:39:28 6.6 Below low normal 7.0-15.0 (mmol/L) Final Glucose, whole blood 07/08/2024 16:39:28 93 70-120 (mg/dL) Final Oxygen/Total gas setting [Volume Fraction] Ventilator 07/08/2024 16:39:28 50 (%) Final O2 FLOW, ARTERIAL - [facility] 07/08/2024 16:39:28 Not Provided (L/min) Final Bicarbonate, Venous, POC (i-STAT) 07/08/2024 16:39:28 22.7 Below low normal 23.0-31.0 (mmol/L) Final Performing Location LABORATORY [facility] [place] - [address] [facility] [address]
--- OUTSIDE RECORDS SUMMARY | 2024-08-06 22:38 | External Medical Summary ---
Author Name Unknown Address Unknown Organization K01:LABORATORY [facility] [place] - [address] [place] [address] Laboratory Report Ordering Provider Test Date Status LEVY JAMESON 07/09/2024 03:53:09 Final Stop Collection after Mathew perez is removed Observation Date Value Abnormality Reference (Units ) Status Oxygen saturation in Venous blood 07/09/2024 03:53:09 61.4 40.0-85.0 (%) Final Performing Location LABORATORY [facility] [place] - [address] [place] [address]
--- OUTSIDE RECORDS SUMMARY | 2024-08-06 22:38 | External Medical Summary ---
Author Name Unknown Address Unknown Organization K01:LAB[facility]ORY [facility] [place] [address] [facility] [address] Laboratory Report Ordering Provider Test Date Status LEVY JAMESON 07/08/2024 12:34:26 Final Observation Date Value Abnormality Reference (Units ) Status Body temperature 07/08/2024 12:34:26 37.0 (C) Final pH of Arterial blood 07/08/2024 12:34:26 7.335 Below low normal 7.350-7.450 (units) Final Carbon dioxide [Partial pressure] in Arterial blood 07/08/2024 12:34:26 47.5 Above high normal 35.0-45.0 (mmHg) Final Oxygen [Partial pressure] in Arterial blood 07/08/2024 12:34:26 316.0 Above high normal 75.0-100.0 (mmHg) Final Base excess, Arterial 07/08/2024 12:34:26 -1.0 -2.0-2.0 (mmol/L) Final Hemoglobin [Mass/volume] in Blood by Oximetry 07/08/2024 12:34:26 12.5 Below low normal 14.0-16.8 (g/dL) Final Oxyhemoglobin, Arterial (FO2HB) 07/08/2024 12:34:26 97.5 94.0-99.0 (% total Hgb) Final Carboxyhemoglobin 07/08/2024 12:34:26 1.6 Above high normal <=1.5 (% total Hgb) Final Smokers: 0-9.0 % Methemoglobin 07/08/2024 12:34:26 0.8 <=1.5 (% total Hgb) Final Deoxyhemoglobin/Hemog lobin.total in Arterial blood 07/08/2024 12:34:26 0.1 0.0-5.0 (% total Hgb) Final Oxygen content in Arterial blood 07/08/2024 12:34:26 17.8 15.0-24.0 (%vol) Final Potassium, Whole Blood 07/08/2024 12:34:26 4.0 3.5-5.1 (mmol/L) Final Sodium, Whole Blood 07/08/2024 12:34:26 139 135-146 (mmol/L) Final Chloride, Whole Blood 07/08/2024 12:34:26 108 Above high normal 98-107 (mmol/L) Final Calcium.ionized [Moles/volume] in Blood by Ion-selective membrane electrode (ISE) 07/08/2024 12:34:26 1.08 Below low normal 1.13-1.32 (mmol/L) Final Anion gap, Whole Blood 07/08/2024 12:34:26 6.9 Below low normal 7.0-15.0 (mmol/L) Final Glucose, whole blood 07/08/2024 12:34:26 159 Above high normal 70-120 (mg/dL) Final Oxygen/Total gas setting [Volume Fraction] Ventilator 07/08/2024 12:34:26 100 (%) Final O2 FLOW, ARTERIAL - [facility] 07/08/2024 12:34:26 Not Provided (L/min) Final Bicarbonate, Venous, POC (i-STAT) 07/08/2024 12:34:26 24.6 23.0-31.0 (mmol/L) Final Performing Location [facility] [place] [address] [facility] [id number]
--- OUTSIDE RECORDS SUMMARY | 2024-08-06 22:38 | External Medical Summary ---
Author Name Unknown Address Unknown Organization K01:LABORATORY [facility] [place] - [address] [facility] [address] Laboratory Report Ordering Provider Test Date Status LEVY JAMESON 07/08/2024 15:21:27 Final Observation Date Value Abnormality Reference (Units ) Status Body temperature 07/08/2024 15:21:27 37.0 (C) Final pH of Arterial blood 07/08/2024 15:21:27 7.300 Below low normal 7.350-7.450 (units) Final Carbon dioxide [Partial pressure] in Arterial blood 07/08/2024 15:21:27 47.8 Above high normal 35.0-45.0 (mmHg) Final Oxygen [Partial pressure] in Arterial blood 07/08/2024 15:21:27 161.0 Above high normal 75.0-100.0 (mmHg) Final Base excess, Arterial 07/08/2024 15:21:27 -3.1 Below low normal -2.0-2.0 (mmol/L) Final Hemoglobin [Mass/volume] in Blood by Oximetry 07/08/2024 15:21:27 10.8 Below low normal 14.0-16.8 (g/dL) Final Oxyhemoglobin, Arterial (FO2HB) 07/08/2024 15:21:27 97.0 94.0-99.0 (% total Hgb) Final Carboxyhemoglobin 07/08/2024 15:21:27 1.1 <=1.5 (% total Hgb) Final Smokers: 0-9.0 % Methemoglobin 07/08/2024 15:21:27 0.9 <=1.5 (% total Hgb) Final Deoxyhemoglobin/Hemog lobin.total in Arterial blood 07/08/2024 15:21:27 1.0 0.0-5.0 (% total Hgb) Final Oxygen content in Arterial blood 07/08/2024 15:21:27 15.1 15.0-24.0 (%vol) Final Potassium, Whole Blood 07/08/2024 15:21:27 3.9 3.5-5.1 (mmol/L) Final Sodium, Whole Blood 07/08/2024 15:21:27 141 135-146 (mmol/L) Final Chloride, Whole Blood 07/08/2024 15:21:27 110 Above high normal 98-107 (mmol/L) Final Calcium.ionized [Moles/volume] in Blood by Ion-selective membrane electrode (ISE) 07/08/2024 15:21:27 1.20 1.13-1.32 (mmol/L) Final Anion gap, Whole Blood 07/08/2024 15:21:27 8.0 7.0-15.0 (mmol/L) Final Glucose, whole blood 07/08/2024 15:21:27 116 70-120 (mg/dL) Final Oxygen/Total gas setting [Volume Fraction] Ventilator 07/08/2024 15:21:27 50 (%) Final O2 FLOW, ARTERIAL - [facility] 07/08/2024 15:21:27 Not Provided (L/min) Final Bicarbonate, Venous, POC (i-STAT) 07/08/2024 15:21:27 22.8 Below low normal 23.0-31.0 (mmol/L) Final Performing Location LABORATORY [facility] - Formerly named [facility] [address] [facility] [address]
--- OUTSIDE RECORDS SUMMARY | 2024-08-06 22:38 | External Medical Summary ---
Author Name Unknown Address Unknown Organization K01:[place] [facility] [place] [address] [place] [address] Laboratory Report Ordering Provider Test Date Status PLACIDO NGUYEN 07/08/2024 11:12:00 Final Observation Date Value Abnormality Reference (Units ) Status Lactic Acid, Whole Blood 07/08/2024 11:12:00 2.2 Above high normal 0.4-2.0 (mmol/L) Final Performing Location [facility] [facility] [place] [address] [place] [address]
--- OUTSIDE RECORDS SUMMARY | 2024-08-06 22:38 | External Medical Summary ---
Author Name Unknown Address Unknown Organization K01:LABORATORY [place] [address] [facility] [address] Laboratory Report Ordering Provider Test Date Status LEVY JAMESON 07/08/2024 12:32:26 Final Observation Date Value Abnormality Reference (Units ) Status Clot formation [Time] in Blood by Thromboelastography 07/08/2024 12:32:26 6.8 2.5-8.3 (minutes) Final Clot strength in Blood by Thromboelastography 07/08/2024 12:32:26 1.4 0.5-3.7 (minutes) Final Clot angle in Blood by Thromboelastography 07/08/2024 12:32:26 69.7 46.8-78.4 (degrees) Final Maximum clot firmness [Length] in Blood by Thromboelastography 07/08/2024 12:32:26 67.4 50.6-72.5 (mm) Final Coagulation index in Blood b y Thromboelastography 07/08/2024 12:32:26 0.8 -3.0-3.0 Final Clot Lysis [Length fraction] in Blood by Thromboelastography --30 minutes post maximum clot amplitude 07/08/2024 12:32:26 0.2 0.0-7.5 (%) Final This is an appended report. These results have been appended to a previously preliminary verified report. Performing Location [place] [place] [facility] [address] [facility] [address]
--- OUTSIDE RECORDS SUMMARY | 2024-08-06 22:38 | External Medical Summary ---
Author Name Unknown Address Unknown Organization K01:[place] [facility] [place] [address] [place] [address] Laboratory Report Ordering Provider Test Date Status LEVY JAMESON 07/08/2024 17:49:57 Final 6 hours after surgery and af ter NOW BMP draw. Observation Date Value Abnormality Reference (Units ) Status BUN 07/08/2024 17:49:57 13 6-20 (mg/dL) Final Creatinine 07/08/2024 17:49:57 1.2 0.6-1.2 (mg/dL) Final Glomerular filtration rate/1.73 sq M.predicted [Volume Rate/Area] in Serum, Plasma or Blood by Creatinine-based formula (CKD-EPI) 07/08/2024 17:49:57 67 >=60 (mL/min) Final eGFR is calculated based on the CKD-EPI 2020 equation. Sodium 07/08/2024 17:49:57 145 135-146 (m mol/L) Final Potassium 07/08/2024 17:49:57 4.3 3.5-5.1 (m mol/L) Final Cl 07/08/2024 17:49:57 109 Above high normal 98 -107 (mmol/L) Final CO2 07/08/2024 17:49:57 23 22-32 (mmo l/L) Final Anion gap 07/08/2024 17:49:57 13 7-15 (mmol /L) Final Glucose 07/08/2024 17:49:57 109 70-120 (mg /dL) Final Calcium 07/08/2024 17:49:57 8.4 8.4-10.2 ( mg/dL) Final Performing Location [facility] [facility] [place] [address] [place] [address]
--- OUTSIDE RECORDS SUMMARY | 2024-08-06 22:38 | External Medical Summary | Summary of Care ---
Author Name Unknown Organization [facility] Address [address] [place] [address] Phone [phone] Care Team Providers Care Patient Safety Tech Name Role Phone Leon Glavan DO Primary Care Provider [phone] Reason for Visit * Reason Comments Dosage Adjustment Via Phone (anticoag Cl inic) * Evaluate & Treat - Unlimited Visits (Within 3 days (urgent)) - Authorized Specialty Diagnoses / Procedures Referred By Katie berman Referred To Contact ANTI-COAG CLINIC / Pharmacy Diagnoses S/P CABG x 4 Noa Go PA-C [address] [place] [address] Phone: tel: fax: Referral ID Status Reason Start Date Expiration Date Visits Requested Visits Authorized [id number] Authorized Specialty Services Required 01/04/2025 99 99 Encounter Details Date Type Department Care Team (Latest Contact Info) Description 07/08/2024 5:10 PM EST Anticoagulation Pharmacy, [facility] [address] [place] [address] [facility] [address] [place] [address] 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 100 Tablet 3 4 10:41 AM EDT 02/07/20 23 Suspended Ezetimibe 10 MG Oral Tablet (Zetia)Indicatio ns:Dyslipidemia, goal LDL below 70 TAKE ONE TABLET BY MOUTH DAILY 100 Tablet 3 4 10:41 AM EDT 02/07/20 23 Suspended Nitroglycerin 0.4 MG Sublingual Tablet Sublingual (Nitrostat)Indic ations:Coronary artery disease of pilot point artery of pilot point heart with stable angina pectoris (HCC) Place [...] before bedtime. Starting 07/05/24. 3 mL 07/03/20 Suspended Aspirin 325 MG Oral Tablet Delayed Release Take 1 Tablet by mouth in the morning. Suspended documented as of this encounter (statuses as of 07/08/2024) Active Problems Problem Noted Date Diagnosed Date S/P CABG x 4 07/08/2024 Coronary artery disease invo lving pilot point coronary artery of pilot point heart with unstable angina pectoris 07/03/2024 Vitamin [...] as of this encounter (statuses as of 07/08/2024) Resolved Problems Problem Noted Date Diagnosed Date Resolved Date Type 2 diabetes mellitus wit h autonomic neuropathy 08/17/2023 09/17/2023 Atherosclerosis of pilot point co ronary artery without angina pectoris 08/17/2023 [...] as of this encounter (statuses as of 07/08/2024) Immunizations Name Administration Dates Next Due COVID-19 [...] as of this encounter Progress Notes * Inga Bergeron, [facility] - 07/08/2024 2:15 PM EST Anticoagulation referral for management of: Warfarin Indication and INR goal for Warfarin Management: VTE: Other Apical thrombus, INR Goal: (2.0-3.0) Relevant History: N/A Enoxaparin bridging required? Yes Patient currently admitted to [facility]. Follow up in 2 days for discharge. Inga Bergeron, [facility] D, [facility] Clinical [facility]ist 07/08/2024, 2:18 PM documented in this encounter Plan of Treatment Upcoming Encounters Date Type Department Care Team (Late st Contact Info) Description 07/10/2024 5:10 PM EST Anticoagulation Pharmacy, [facility] [address] [facility] [place] [address] [facility] [address] [facility] [place] [address] 09/17/2024 8:40 AM EDT Office Visit Family Practice [address] [place] [address] [address] [place] [address] Leon Galvan DO [address] [place] [address] 09/18/2024 8:00 AM EDT Office Visit Cardiology, [facility] [address] [facility] [place] [address] Alexandra Mackenzie CRNP [address] [facility] [place] [address] 10/10/2024 3:30 PM EDT Imaging Radiology [facility] [address] [facility] [place] [address] 10/17/2024 9:00 AM EDT Office Visit Urology, [place] [address] [place] [address] Johnathon Kent PA-C [address] [place] [address] 02/06/2025 9:30 AM EDT Office Visit Cardiology, [facility] [address] [place] [place] [address] Poncho Robledo DO [address] [place] [address] Scheduled Procedures Name Priority Associated Diagnoses Date/Ti me CORONARY ARTERY BYPASS GRAFT USING ARTERY 1 GRAFT 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 ([facility]) 07/08/2024 6:30 AM EST CORONARY ARTERY BYPASS GRAFT ARTERIAL AND VENOUS 2 GRAFTS 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 ([facility]) 07/08/2024 6:30 AM EST ENDOSCOPY VIDEO ASSISTED HARVEST VEIN 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 ([facility]) 07/08/2024 6:30 AM EST Scheduled Referrals Name Type Priority Associated Diagnoses Orde r Schedule ANTI-COAGULATION REFERRAL OP Referral Within 3 days (urgent) S/P CABG x 4 Ordered: 07/08/2024 Health Maintenance Due Date Last Done Comments Cologuard 1995 Sigmoidoscopy 1995 Fecal Occult Blood Test 12/20/2008 12/21/2007 *ADVANCE DIRECTIVE NOT ON FILE 2019 DISCUSS TOBACCO CESSATION (REFER TO SMARTSET #3291) 06/18/2024 06/18/2023, 01/24/2017 Adult Wellness Visit 02/17/2025 02/18/2024, 10/31/2022, 08/17/2021 Depression Screening 02/17/2025 02/18/2024, 01/02/20 24 HbA1c 07/04/2025 07/04/2024, 03/2024, 02/15/2024, Additional history exists GFR 07/08/2025 07/08/2024, 06/09, 06/16/2024, Additional history exists O2 ASSESSMENT COMPLETED IN PAST YEAR FOR COPD 07/08/2025 07/08/2024 Albumin/Creatinine Ratio 08/17/2026 024, 03/22/2022, 06/23/2016, Additional [...] this encounter Medical Devices Implanted Type Area Motorbike Courier Device Identifier Shelf Expiration Date Model / Serial / Lot Lead Kit Trial [id number] 50cm - [id number] - [id number] Implanted:Qty: 1 on 05/08/2024 by Maged Monreal DO at OR [facility] Left: Back [employer] : PAIN MGMT 03/18/2026 [id number] 50E0 / [id number] / Lead Kit Trial [id number] 50cm - [id number] - [id number] Implanted:Qty: 1 on 05/08/2024 by Maged Monreal DO at OR [facility] Right: Back [employer] : PAIN MGMT 03/18/2026 [id number] 50E0 / [id number] / Suture Steel 6 B&S19 M654g - [id number] Implanted:Qty: 1 on 07/08/2024 by Jayden Galvan MD at OR [facility] N/A: Sternum JNJ : [employer] 03/08/2029 M654G / / [id number] Marker Coronary - [id number] Implanted:Qty: 1 on 07/08/2024 by Jayden Galvan MD at OR [facility] N/A: Heart [employer] 05/08/2027 AM-SD / / [id number] Marker Coronary - [id number] Implanted:Qty: 1 on 07/08/2024 by Jayden Galvan MD at OR [facility] N/A: Heart [employer] 06/07/2027 [employer]-[facility] / / [id number] documented as of this encounter Visit Diagnoses Diagnosis 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 Question Answer Comments Discussion of Advance Directives occurred with: Patient Care Teams Patient Safety Tech Relationship Specialty Start Date End Date Leon Galvan DO [address] [place] [address] PCP - General Internal Medicine 12/28/23 documented as of this encounter
--- OUTSIDE RECORDS SUMMARY | 2024-08-06 22:38 | External Medical Summary ---
Author Name Unknown Address Unknown Organization : Laboratory Report Ordering Provider Test Date Status BLAKE RAM 07/08/2024 12:20:08 Final Observation Date Value Abnormality Reference (Units) Status Blood draw [PhenX] 07/08/2024 12:20:08 Arterial Draw Final pH, POC (i-STAT) 07/08/2024 12:20:08 7.329 Below low normal 7.350-7.450 Final PCO2 POC (i-STAT) 07/08/2024 12:20:08 49.1 Above high normal 35.0-45.0 (mm Hg) Final PO2 POC (i-STAT) 07/08/2024 12:20:08 389 Above high normal 75-100 (mm Hg) Final Base excess standard in Arterial blood by calculation 07/08/2024 12:20:08 -1 -2-2 (mmol/L) Final Bicarbonate, Venous, POC (i-STAT) 07/08/2024 12:20:08 25.8 23.0-31.0 (mmol/L) Final O2 Sat, calculated POC (i-STAT) 07/08/2024 12:20:08 100.0 Above high normal 94.0-98.0 (%) Final Glucose, whole blood 07/08/2024 12:20:08 143 Above high normal 70-120 (mg/dL) Final Potassium, Whole Blood 07/08/2024 12:20:08 4.0 3.5-5.1 (mmol/L) Final Sodium, Whole Blood 07/08/2024 12:20:08 141 135-146 (mmol/L) Final Calcium, Ionized, Whole Blood 07/08/2024 12:20:08 1.06 Below low normal 1.13-1.32 (mmol/L) Final Hemoglobin POC (i-STAT) 07/08/2024 12:20:08 10.9 Below low normal 14.0-16.8 (g/dL) Final HCT 07/08/2024 12:20:08 32 Below low normal 40-48 (%) Final Oxygen/Total gas setting [Volume Fraction] Ventilator 07/08/2024 12:20:08 100 (%) Final Performing Location
--- OUTSIDE RECORDS SUMMARY | 2024-08-06 22:38 | External Medical Summary ---
Author Name Unknown Address Unknown Organization : Laboratory Report Ordering Provider Test Date Status BLAKE RAM 07/08/2024 17:54:26 Final Observation Date Value Abnormality Reference (Units ) Status Glucose Point of Care 07/08/2024 17:54:26 105 70-120 (mg/dL) Final Performing Location
--- OUTSIDE RECORDS SUMMARY | 2024-08-06 22:38 | External Medical Summary ---
Author Name Unknown Address Unknown Organization : Laboratory Report Ordering Provider Test Date Status BLAKE RAM 07/08/2024 10:39:15 Final NORMAL (NON-HEPARINIZED) 74- 137 SECONDS
HEPARINIZED 200+ SECONDS
CRITICAL GREATER THAN 1000 SECONDS
null Observation Date Value Abnormality Reference (Units ) Status Kaolin activated time [Units/volume] in Blood 07/08/2024 10:39:15 538 50-1000 (secs) Final Performing Location
--- OUTSIDE RECORDS SUMMARY | 2024-08-06 22:38 | External Medical Summary ---
Author Name Unknown Address Unknown Organization K01:LAB[facility]ATORY [facility] [place] - [facility] [address] [facility] [address] Laboratory Report Ordering Provider Test Date Status LEVY JAMESON 07/08/2024 12:32:26 Final Observation Date Value Abnormality Reference (Units ) Status WBC, Total 07/08/2024 12:32:26 13.08 Above high normal 4.00-10.80 (K/uL) Final RBC 07/08/2024 12:32:26 3.76 4.50-5.25 (M/uL) Final Hemoglobin 07/08/2024 12:32:26 12.0 Below low normal 14.0-16.8 (g/dL) Final HCT 07/08/2024 12:32:26 34.9 Below low normal 40.0-48.4 (%) Final MCV 07/08/2024 12:32:26 92.8 82.0-99.5 (fL) Final MCH 07/08/2024 12:32:26 31.9 27.0-34.0 (pg) Final MCHC 07/08/2024 12:32:26 34.4 32.0-36.0 (g/dL) Final RDW 07/08/2024 12:32:26 12.9 11.5-15.5 (%) Final Platelets 07/08/2024 12:32:26 142 140-400 (K/uL) Final MPV 07/08/2024 12:32:26 10.9 6.6-11.1 (fL) Final Nucleated erythrocytes/100 leukocytes [Ratio] in Blood by Automated count 07/08/2024 12:32:26 0 <=0 (/100 WBCs) Final Performing Location LABORATORY [facility] [place] - [address] [place] [address]
--- OUTSIDE RECORDS SUMMARY | 2024-08-06 22:38 | External Medical Summary ---
Author Name Unknown Address Unknown Organization : Laboratory Report Ordering Provider Test Date Status BLAKE RAM 07/08/2024 13:11:02 Final Observation Date Value Abnormality Reference (Units ) Status Glucose Point of Care 07/08/2024 13:11:02 155 Above high normal 70-120 (mg/dL) Final Performing Location
--- OUTSIDE RECORDS SUMMARY | 2024-08-06 22:38 | External Medical Summary ---
Author Name Unknown Address Unknown Organization K01:[place] [facility] [place] [address] [facility] [place] [address] Laboratory Report Ordering Provider Test Date Status LEVY JAMESON 07/09/2024 03:53:09 Final Observation Date Value Abnormality Reference (Units ) Status SYNC LEUKOCYTES IN BLOOD BY AUTOMATED COUNT 07/09/2024 03:53:09 8.90 4.00-10.80 (K/uL) Final Segs 07/09/2024 03:53:09 81.6 Above high normal 40.0-75.0 (%) Final Lymphs % 07/09/2024 03:53:09 7.9 Below low normal 18.0-42.0 (%) Final Monos 07/09/2024 03:53:09 10.0 1.0-11.0 (%) Final Eosinophils 07/09/2024 03:53:09 0.0 0.0-6.0 (%) Final Basos 07/09/2024 03:53:09 0.2 0.0-2.0 (%) Final Immature Granulocyte, Percent 07/09/2024 03:53:09 0.3 0.0-2.0 (%) Final Absolute Segs 07/09/2024 03:53:09 7.26 1.80-7.70 (K/uL) Final Lymphs, absolute 07/09/2024 03:53:09 0.70 Below low normal 1.00-4.80 (K/ul) Final Monos, Abs 07/09/2024 03:53:09 0.89 0.00-1.10 (K/uL) Final Eos, Abs 07/09/2024 03:53:09 0.00 0.00-0.70 (K/uL) Final Basos, Abs 07/09/2024 03:53:09 0.02 0.00-0.20 (K/uL) Final Immature Granulocytes, Number 07/09/2024 03:53:09 0.03 0.00-0.20 (K/uL) Final Performing Location [place] [facility] [place] [address] [facility] [address]
--- OUTSIDE RECORDS SUMMARY | 2024-08-06 22:38 | External Medical Summary ---
Author Name Unknown Address Unknown Organization K01:[place] [facility] [place] [address] [place] [address] Laboratory Report Ordering Provider Test Date Status LEVY JAMESON 07/08/2024 12:32:26 Final Observation Date Value Abnormality Reference (Units ) Status Fibrinogen 07/08/2024 12:32:26 279 178-467 ( mg/dL) Final Performing Location LABORATORY [facility] - [address] [place] [address]
--- OUTSIDE RECORDS SUMMARY | 2024-08-06 22:39 | External Medical Summary ---
Author Name Unknown Address Unknown Organization K01:LABORATORY [facility] [place] - [facility] [address] [facility] [address] Laboratory Report Ordering Provider Test Date Status PATRICKCUMMINS 07/08/2024 09:50:41 Final Observation Date Value Abnormality Reference (Units ) Status Clot formation [Time] in Blood by Thromboelastography 07/08/2024 09:50:41 5.0 2.5-8.3 (minutes) Final Clot strength in Blood by Thromboelastography 07/08/2024 09:50:41 1.5 0.5-3.7 (minutes) Final Clot angle in Blood by Thromboelastography 07/08/2024 09:50:41 69.2 46.8-78.4 (degrees) Final Maximum clot firmness [Length] in Blood by Thromboelastography 07/08/2024 09:50:41 63.4 50.6-72.5 (mm) Final Coagulation index in Blood b y Thromboelastography 07/08/2024 09:50:41 1.4 -3.0-3.0 Final This is an appended report. These results have been appended to a previously preliminary verified report. Clot Lysis [Length fraction] in Blood by Thromboelastography --30 minutes post maximum clot amplitude 07/08/2024 09:50:41 0.5 0.0-7.5 (%) Final This is an appended report. These results have been appended to a previously preliminary verified report. Performing Location LABORATORY [facility] [place] - [address] [facility] [address]
--- OUTSIDE RECORDS SUMMARY | 2024-08-06 22:39 | External Medical Summary | Summary of Care ---
Author Name Unknown Organization [facility] Address [address] [place] [address] Phone [phone] Care Team Providers Care Assistant Banquet Manager Name Role Phone Leon Galvan DO Primary Care Provider [phone] Reason for Visit * Reason Comments Blood Management Program Encounter Details Date Type Department Care Team (Late st Contact Info) Description 07/07/2024 Documentation Patient Blood Management, [place] [address] [place] [address] Huy Burden RN Allergies Active Allergy Reactions Criticality Noted Date Comments Codeine Other (Please comment) High 09/08/2013 Severe Skin peeling documented as of this encounter (statuses as of 07/07/2024) Medications oxygen GASIndications:C hronic coronary artery disease,COPD, mild (HCC),Heart failure, systolic, due to CAD (HCC) Use 2 L/min(Oxygen) as directed at bedtime. 1 Each 7 Active Pantoprazole Sodium 40 MG Oral Tablet Delayed Release (Protonix) Take 1 Tablet by mouth in the morning. Active Acetaminophen 325 MG Oral Tablet Take 1 Tablet by mouth every 6 hours as needed. Active Famotidine 20 MG Oral Tablet Take 1 Tablet by mouth in the morning. Active Aspirin 81 MG Oral Tablet Chewable take one tablet by mouth once a day with food 100 Tablet 5 11/21/2023 10:41 AM EDT 3 Active Additional Information Patient not taking.Reported on 07/04/2024 Dutasteride 0.5 MG Oral Capsule (Avodart)Indicat ions:BPH with obstruction/lowe r urinary tract symptoms Take 1 Capsule by mouth in the morning. 100 Capsule 3 11/21/2023 10:41 AM EDT 3 Active Additional Information Patient taking differently:0.5 mg OralDAILY NOON, Reported on 07/04/2024 Furosemide 20 MG Oral Tablet (Lasix)Indicatio ns:Heart failure, systolic, due to CAD ([facility]) take one pill by mouth once a day as needed for fluid accumulation or weight gain 100 Tablet 3 11/21/2023 10:41 AM EDT 3 Active rOPINIRole HCl 0.5 MG Oral Tablet (Requip)Indicati ons:Restless legs syndrome Take 1 Tablet by mouth in the morning and 1 Tablet at noon and 1 Tablet before bedtime. With food. 300 Tablet 3 11/21/2023 10:41 AM EDT 3 Active Additional Information Patient taking differently:0.5 mg OralBID (0700,1900), Takes at 12 noon and at bedtime, Reported on 07/04/2024 buPROPion HCl ER (SR) 150 MG Oral Tablet Extended Release 12 Hour (Wellbutrin SR)Indications:T obacco use disorder Take 1 Tablet by mouth in the morning and 1 Tablet before bedtime. 200 Tablet 3 11/21/2023 10:41 AM EDT 3 Active busPIRone HCl 5 MG Oral Tablet (Buspar)Indicati ons:Anxiety state Take 1 Tablet by mouth in the morning and 1 Tablet before bedtime. 200 Tablet 3 11/21/2023 10:41 AM EDT 3 Active Isosorbide Mononitrate ER 60 MG Oral Tablet Extended Release 24 Hour (Imdur)Indicatio ns:HTN, goal below 150/90,Chronic coronary artery disease,Heart failure, systolic, due to CAD (HCC),Old [place] (myocardial infarction),Home Care Aide lawrence stable 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 100 Tablet 3 11/21/2023 10:41 AM EDT 3 Active Ezetimibe 10 MG Oral Tablet (Zetia)Indicatio ns:Dyslipidemia, goal LDL below 70 TAKE ONE TABLET BY MOUTH DAILY 100 Tablet 3 11/21/2023 10:41 AM EDT 3 Active Nitroglycerin 0.4 MG Sublingual Tablet Sublingual (Nitrostat)Indic ations:Coronary artery disease of king salmon artery of king salmon heart with stable angina pectoris (HCC) Place 1 Tablet under the tongue every 5 minutes as needed for Pain, Chest. 25 Tablet 3 11/21/2023 10:41 AM EDT 3 Active Mirtazapine 15 MG Oral Tablet (Remeron)Indicat ions:Anxiety state Take 1 Tablet by mouth at bedtime. 100 Tablet 3 11/21/2023 10:41 AM EDT 3 Active Carvedilol 12.5 MG Oral Tablet (Coreg)Indicatio ns:Chronic coronary artery disease,Heart failure, systolic, due to CAD (HCC) Take 1 Tablet by mouth in the morning and 1 Tablet before bedtime with food. 200 Tablet 3 11/21/2023 10:41 AM EDT 4 Active amLODIPine Besylate 5 MG Oral Tablet (Norvasc)Indicat ions:HTN, goal below 140/90 Take 1 Tablet by mouth in the morning. 100 Tablet 3 11/21/2023 10:41 AM EDT 4 Active Rosuvastatin Calcium 40 MG Oral Tablet (Crestor)Indicat ions:HTN, goal below 140/90 Take 1 Tablet by mouth in the morning. 100 Tablet 3 03/31/2024 6:45 AM EDT 4 Active Clopidogrel Bisulfate 75 MG Oral Tablet (pLAVix)Indicati ons:HTN, goal below 140/90 Take 1 Tablet by mouth in the morning. 100 Tablet 3 11/21/2023 10:41 AM EDT 4 Active Spironolactone 25 MG Oral Tablet (Aldactone)Indic ations:HTN, goal below 140/90 Take one-half Tablets by mouth once a day on Sunday, Sunday, and Sunday only. 30 Tablet 3 11/21/2023 10:41 AM EDT 4 [...] 2 capsules in afternoon 300 Capsule 1 11/21/2023 12:21 PM EDT 4 Active Baclofen 10 MG Oral Tablet (Lioresal)Indica tions:Lumbar degenerative disc disease Take 1 Tablet by mouth in the morning and 1 Tablet at noon and 1 Tablet before bedtime. 300 Tablet 3 12/13/2023 4:49 PM EDT 4 Active oxyCODONE HCl 5 MG Oral Tablet (Oxy IR)Indications:L umbar degenerative disc disease Take 1 Tablet by mouth every 8 hours as needed for Pain, Severe. 21 Tablet 4 Active Lisinopril 40 MG Oral TabletIndication s:HTN, goal below 150/90 Take 1 Tablet by mouth in the morning. 100 Tablet 1 03/31/2024 6:45 AM EDT 4 Active Apixaban 5 MG Oral Tablet (Eliquis) Take 1 Tablet by mouth in the morning and 1 Tablet before bedtime. 60 Tablet 6 4 Active Enoxaparin Sodium 60 MG/0.6ML Injection Solution Prefilled Syringe (Lovenox)Indicat ions:Cerebrovasc ular disease, arteriosclerotic , post-stroke,LV (left ventricular) mural thrombus Inject 60 mg under the skin in the morning and 60 mg before bedtime. Starting 07/05/24. 3 mL 4 Active Aspirin 325 MG Oral Tablet Delayed Release Take 1 Tablet by mouth in the morning. Active Hospital, Clinic, or Other Facility Administered Medication Ordered Dose Route Frequency Start Date End Date Status vitamin b-12 (Cyanocobalamin) inj 1,000 mcgIndications:Vitamin B 12 deficiency 1000 mcg IM [id number] 08/17/2023 07/18/2024 Active documented as of this encounter (statuses as of 07/07/2024) Active Problems Problem Noted Date Diagnosed Date Coronary artery disease invo lving king salmon coronary artery of king salmon heart with unstable angina pectoris 07/03/2024 Vitamin [...] failure, systolic, due to CAD 09/08/2013 Old [place] (myocardial infarction) 09/08/2013 Dyslipidemia, goal LDL below 70 06/15/2009 Overview (06/15/2009): Per Lipid Taxonomy. Esophageal reflux 12/03/2007 BPH without obstruction/lower urinary tract symp toms 08/03/2006 Tobacco use disorder 06/03/2002 documented as of this encounter (statuses as of 07/07/2024) Resolved Problems Problem Noted Date Diagnosed Date Resolved Date Type 2 diabetes mellitus wit h autonomic neuropathy 08/17/2023 09/17/2023 Atherosclerosis of king salmon co ronary artery without angina pectoris 08/17/2023 [...] as of this encounter (statuses as of 07/07/2024) Immunizations Name Administration Dates Next Due COVID-19 [...] as of this encounter Progress Notes * Huy Burden RN - 07/07/2024 8:38 AM EST REFERRAL - Patient Blood Management Name: Henri Vigil REQUESTING SERVICE: [facility] REASON FOR REFERRAL: new evaluation outpatient, pre-surgery Latest Reference Range & Units 07/04/24 09:16 HGB 14.0 - 16.8 g/dL 15.1 HCT 40.0 - 48.4 % 44.1 Iron 45 - 176 ug/dL 69 Iron Binding Capacity 250 - 425 ug/dL 285 Transferrin Saturation Percent 15 - 55 % 24 Ferritin 30 - 400 ng/mL 405 (H) Immature Reticuloctye Fraction 2.5 - 20.6 % 6.8 Reticulocyte Hemoglobin 29.7 - 37.4 pg 36.3 (H): Data is abnormally high Chart reviewed. In absence of anemia or personal beliefs that prohibit blood transfusion would not recommend urgent therapy with iron, vitamins, or erythroid stimulating agents at this time. If no active hemorrhage, consider PRBC transfusion only for severe anemia and use a 1 unit PRBC dose followed by a repeat clinical assessment. For reversal of anticoagulation therapy, use Reversal of Anticoagulation order set. Please recommend outpatient follow up that includes repeat assessment of hemoglobin when stable fordischarge. Thank you for allowing Blood Management to participate in the care of this patient. documented in this encounter Plan of Treatment Upcoming Encounters Date Type Department Care Team (Latest Contact Info) Description 07/08/2024 7:00 AM EST Hospital Encounter [place] [facility] OPER[facility] [address] [place] [address] Jayden Galvan MD [address] [place] [address] 07/08/2024 7:00 AM EST - 07/08/2024 12:15 PM EST Surgery OR [facility]PER[facility] [address] [place] [address] Jayden Galvan MD [address] [place] [address] CORONARY ARTERY BYPASS GRAFT USING ARTERY 1 GRAFT 09/17/2024 8:40 AM EDT Office Visit Family Practice [address] [place] [address] [address] [place] [address] Leon Galvan DO [address] [place] [address] 09/18/2024 8:00 AM EDT [facility] [address] [facility] [address] Alexandra Mackenzie CRNP [address] [facility] [place] [address] 10/10/2024 3:30 PM EDT Imaging Radiology [facility] [address] [facility] [place] [address] 10/17/2024 9:00 AM EDT Office Visit Urology, [facility] [address] [place] [address] Johnathon Kent PA-C [address] [place] [address] 02/06/2025 9:30 AM EDT Office Visit Cardiology, [facility] [address] [place] [address] Poncho Robledo DO [address] [place] [id number] Scheduled Procedures Name Priority Associated Diagnoses Date/Ti me CORONARY ARTERY BYPASS GRAFT USING ARTERY 1 GRAFT Coronary artery disease involving king salmon coronary artery of king salmon heart with unstable angina pectoris ([facility]) 07/08/2024 7:00 AM EST CORONARY ARTERY BYPASS GRAFT ARTERIAL AND VENOUS 2 GRAFTS Coronary artery disease involving king salmon coronary artery of king salmon heart with unstable angina pectoris ([facility]) 07/08/2024 7:00 AM EST ENDOSCOPY VIDEO ASSISTED HARVEST VEIN Coronary artery disease involving king salmon coronary artery of king salmon heart with unstable angina pectoris ([facility]) 07/08/2024 7:00 AM EST Health Maintenance Due Date Last Done Comments Cologuard 1995 Sigmoidoscopy 1995 Fecal Occult Blood Test 12/20/2008 12/21/2007 *ADVANCE DIRECTIVE NOT ON FILE 2019 DISCUSS TOBACCO CESSATION (REFER TO SMARTSET #3291) 06/18/2024 06/18/2023, 01/24/2017 Adult Wellness Visit 02/17/2025 02/18/2024, 10/31/2022, 08/17/2021 Depression Screening 02/17/2025 02/18/2024, 01/02/20 24 O2 ASSESSMENT COMPLETED IN PAST YEAR FOR COPD 05/08/2025 05/08/2024 GFR 07/04/2025 07/04/2024, 12/0 03/2024, 02/15/2024, Additional history exists HbA1c 07/04/2025 07/04/2024, 1203/2024, 02/15/2024, Additional history exists Albumin/Creatinine Ratio 08/17/2026 024, [...] this encounter Medical Devices Implanted Type Area Vision Therapist Device Identifier Shelf Expiration Date Model / Serial / Lot Lead Kit Trial [id number] 50cm - [id number] - [id number] Implanted:Qty: 1 on 05/08/2024 by Maged Monreal, at OR [facility] Left: Back [email or web address] : PAIN MGMT 03/18/2026 [id number] / [id number] / Lead Kit Trial [id number] 50cm - [id number] - [id number] Implanted:Qty: 1 on 05/08/2024 by Maged Monreal DO at OR [facility] Right: Back [employer] : PAIN MGMT 03/18/2026 [id number] / [id number] / documented as of this encounter Care Teams Assistant Banquet Manager Relationship Specialty Start Date End Date Leon Galvan DO [address] [place] [address] PCP - General Internal Medicine 12/28/23 documented as of this encounter
--- OUTSIDE RECORDS SUMMARY | 2024-08-06 22:39 | External Medical Summary ---
Author Name Unknown Address Unknown Organization : Laboratory Report Ordering Provider Test Date Status BLAKE RAM 07/08/2024 09:30:59 Final NORMAL (NON-HEPARINIZED) 74- 137 SECONDS
HEPARINIZED 200+ SECONDS
CRITICAL GREATER THAN 1000 SECONDS
null Observation Date Value Abnormality Reference (Units ) Status Kaolin activated time [Units/volume] in Blood 07/08/2024 09:30:59 446 50-1000 (secs) Final Performing Location
--- OUTSIDE RECORDS SUMMARY | 2024-08-06 22:39 | External Medical Summary ---
Author Name Unknown Address Unknown Organization : Laboratory Report Ordering Provider Test Date Status BLAKE RAM 07/08/2024 09:16:26 Final NORMAL (NON-HEPARINIZED) 74- 137 SECONDS
HEPARINIZED 200+ SECONDS
CRITICAL GREATER THAN 1000 SECONDS
null Observation Date Value Abnormality Reference (Units ) Status Kaolin activated time [Units/volume] in Blood 07/08/2024 09:16:26 608 50-1000 (secs) Final Performing Location
--- OUTSIDE RECORDS SUMMARY | 2024-08-06 22:39 | External Medical Summary ---
Author Name Unknown Address Unknown Organization : Laboratory Report Ordering Provider Test Date Status BLAKE RAM 07/08/2024 09:26:35 Final Observation Date Value Abnormality Reference (Units) Status Blood draw [PhenX] 07/08/2024 09:26:35 Arterial Draw Final pH, POC (i-STAT) 07/08/2024 09:26:35 7.278 Below low normal 7.350-7.450 Final PCO2 POC (i-STAT) 07/08/2024 09:26:35 52.4 Above high normal 35.0-45.0 (mm Hg) Final PO2 POC (i-STAT) 07/08/2024 09:26:35 356 Above high normal 75-100 (mm Hg) Final Base excess standard in Arterial blood by calculation 07/08/2024 09:26:35 -3 Below low normal -2-2 (mmol/L) Final Bicarbonate, Venous, POC (i-STAT) 07/08/2024 09:26:35 24.5 23.0-31.0 (mmol/L) Final O2 Sat, calculated POC (i-STAT) 07/08/2024 09:26:35 100.0 Above high normal 94.0-98.0 (%) Final Glucose, whole blood 07/08/2024 09:26:35 120 70-120 (mg/dL) Final Potassium, Whole Blood 07/08/2024 09:26:35 4.5 3.5-5.1 (mmol/L) Final Sodium, Whole Blood 07/08/2024 09:26:35 138 135-146 (mmol/L) Final Calcium, Ionized, Whole Blood 07/08/2024 09:26:35 1.09 Below low normal 1.13-1.32 (mmol/L) Final Hemoglobin POC (i-STAT) 07/08/2024 09:26:35 11.2 Below low normal 14.0-16.8 (g/dL) Final HCT 07/08/2024 09:26:35 33 Below low normal 40-48 (%) Final Performing Location
--- OUTSIDE RECORDS SUMMARY | 2024-08-06 22:39 | External Medical Summary ---
Author Name Unknown Address Unknown Organization [id number]:[facility] [address] [facility] [address] Laboratory Report Ordering Provider Test Date Status BLAKE RAM 07/08/2024 09:47:00 Final Observation Date Value Abnormality Reference (Units ) Status Body temperature 07/08/2024 09:47:00 37.0 (C) Final pH of Venous blood 07/08/2024 09:47:00 7.365 7.320-7.430 (units) Final Carbon dioxide [Partial pressure] in Venous blood 07/08/2024 09:47:00 43.6 40.0-60.0 (mmHg) Final Oxygen [Partial pressure] in Venous blood 07/08/2024 09:47:00 45.8 25.0-50.0 (mmHg) Final Base excess, Capillary 07/08/2024 09:47:00 -0.6 -2.0-2.0 (mmol/L) Final Hemoglobin [Mass/volume] in Blood by Oximetry 07/08/2024 09:47:00 10.4 Below low normal 14.0-16.8 (g/dL) Final Oxyhemoglobin, Venous (FO2HB) 07/08/2024 09:47:00 77.6 40.0-85.0 (% total Hgb) Final Carboxyhemoglobin 07/08/2024 09:47:00 2.5 Above high normal <=1.5 (% total Hgb) Final Smokers: 0-9.0 % Methemoglobin 07/08/2024 09:47:00 1.6 Above h igh normal <=1.5 (% total Hgb) Final Deoxyhemoglobin/Hemoglo bin.total in Venous blood 07/08/2024 09:47:00 18.3 (% total Hgb) Final Oxygen content in Venous blood 07/08/2024 09:47:00 11.3 7.0-18.0 (%vol) Final Potassium, Whole Blood 07/08/2024 09:47:00 5.4 Above high normal 3.5-5.1 (mmol/L) Final Sodium, Whole Blood 07/08/2024 09:47:00 136 135-146 (mmol/L) Final Chloride, Whole Blood 07/08/2024 09:47:00 106 98-107 (mmol/L) Final Calcium.ionized [Moles/volume] in Blood by Ion-selective membrane electrode (ISE) 07/08/2024 09:47:00 0.96 Below low normal 1.13-1.32 (mmol/L) Final Anion gap, Whole Blood 07/08/2024 09:47:00 6.4 Belo w low normal 7.0-15.0 (mmol/L) Final Glucose, whole blood 07/08/2024 09:47:00 118 70-120 (mg/dL) Final Bicarbonate, Venous, POC (i-STAT) 07/08/2024 09:47:00 24.3 23.0-31.0 (mmol/L) Final Performing Location [facility] [facility] [address] [facility] [address]
--- OUTSIDE RECORDS SUMMARY | 2024-08-06 22:39 | External Medical Summary ---
Author Name Unknown Address Unknown Organization : Laboratory Report Ordering Provider Test Date Status GEORGE LIPSCOMB 07/08/2024 06:34:19 Final Perform within 2 hours of horner rgical procedure. Repeat if procedure delayed beyond 2 hours. Observation Date Value Abnormality Reference (Units ) Status Glucose Point of Care 07/08/2024 06:34:19 106 70-120 (mg/dL) Final Performing Location
--- OUTSIDE RECORDS SUMMARY | 2024-08-06 22:39 | External Medical Summary ---
Author Name Unknown Address Unknown Organization [id number]:[facility] [place] [address] [facility] [address] Laboratory Report Ordering Provider Test Date Status PLACIDO NGUYEN 07/08/2024 09:50:41 Final Observation Date Value Abnormality Reference (Units ) Status Clot formation [Time] in Blood by Thromboelastography 07/08/2024 09:50:41 4.8 2.5-8.3 (minutes) Final Clot strength in Blood by Thromboelastography 07/08/2024 09:50:41 2.0 0.5-3.7 (minutes) Final Clot angle in Blood by Thromboelastography 07/08/2024 09:50:41 64.7 46.8-78.4 (degrees) Final Maximum clot firmness [Length] in Blood by Thromboelastography 07/08/2024 09:50:41 57.2 50.6-72.5 (mm) Final Coagulation index in Blood b y Thromboelastography 07/08/2024 09:50:41 0.2 -3.0-3.0 Final This is an appended report. These results have been appended to a previously preliminary verified report. Clot Lysis [Length fraction] in Blood by Thromboelastography --30 minutes post maximum clot amplitude 07/08/2024 09:50:41 0.0 0.0-7.5 (%) Final This is an appended report. These results have been appended to a previously preliminary verified report. Performing Location [facility] [place] [address] [facility] [address]
--- OUTSIDE RECORDS SUMMARY | 2024-08-06 22:39 | External Medical Summary ---
Author Name Unknown Address Unknown Organization K01:LABORATORY [facility] - [address] [place] [address] Laboratory Report Ordering Provider Test Date Status BLAKE RAM 07/08/2024 09:47:00 Final If R time > 20 minutes and n o clot formed suggesting hypocoagulable state or interfering substance (anticoagulation). Consider resubmitting a new sample and/or checking PT/INR, aPTT, fibrinogen, and platelet count. Observation Date Value Abnormality Reference (Units) Status Clot formation [Time] in Blood by Thromboelastography 07/08/2024 09:47:00 >20.0 Above high normal 2.5-8.3 (minutes) Final Performing Location [facility] [address] [facility] [address]
--- OUTSIDE RECORDS SUMMARY | 2024-08-06 22:39 | External Medical Summary ---
Author Name Unknown Address Unknown Organization [id number]:LABORATORY [facility] [place] - [address] [place] [address] Laboratory Report Ordering Provider Test Date Status PLACIDO NGUYEN 07/08/2024 09:50:41 Final Anticoagulation may affect t esting. Refer to [employer] App Test Catalog for a list of effects. Observation Date Value Abnormality Reference (Units ) Status aPTT panel - Platelet poor plasma 07/08/2024 09:50:41 50 Above high normal 21-38 (seconds) Final Performing Location LABORATORY [facility] [place] - [address] [place] [address]
--- OUTSIDE RECORDS SUMMARY | 2024-08-06 22:39 | External Medical Summary ---
Author Name Unknown Address Unknown Organization [id number]:LABORATORY [facility] [place] - [address] [place] [address] Laboratory Report Ordering Provider Test Date Status BLAKE RAM 07/08/2024 09:47:00 Final Observation Date Value Abnormality Reference (Units ) Status Platelets 07/08/2024 09:47:00 149 140-400 (K /uL) Final Performing Location LABORATORY [facility] [place] - [address] [place] [address]
--- OUTSIDE RECORDS SUMMARY | 2024-08-06 22:39 | External Medical Summary | Summary of Care ---
Author Name Unknown Organization [facility] Address [address] [place] [address] Phone [phone] Care Team Providers Care Absorber Operator Name Role Phone Leon Galvan DO Primary Care Provider [phone] Encounter Details Date Type Department Care Team (Late st Contact Info) Description 07/04/2024 9:00 AM EST Pre-Admission Testing Pre Surgery, [facility] [address] [place] [address] [facility], Located Within [facility] [address] [place] [address] Allergies Active Allergy Reactions Criticality Noted Date [...] (Lasix)Indicatio ns:Heart failure, systolic, due to CAD ([facility]) take one pill by mouth [...] disease,Heart failure, systolic, due to CAD (HCC),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 Esophageal reflux 12/03/2007 BPH without obstruction/lower urinary tract symp toms 08/03/2006 Tobacco use disorder 06/03/2002 documented as of this encounter (statuses as of 07/07/2024) Resolved Problems Problem Noted Date Diagnosed Date Resolved Date Type 2 diabetes mellitus wit h autonomic neuropathy 08/17/2023 09/17/2023 Atherosclerosis of [place] river co ronary artery without angina pectoris 08/17/2023 [...] 11/07/2021 ,08/08/2021 documented as of this encounter Anesthesia Record Procedure Summary Procedure Name Responsible Anesthesiologist Anesthesia Start Time Anesthesia Stop Time CORONARY ARTERY BYPASS GRAFT USING ARTERY 1 GRAFT Events No events on file. Meds * Agents No agents on file. * Blood No blood administrations on file. Lines, Drains, and Airways No LDAs on file. documented in this encounter Social History Tobacco Use Types [...] Sign Reading Time Taken Comments Blood Pressure 183/122 07/04/2024 10:15 AM EST Pulse 65 07/04/2024 9:34 AM EST Temperature 36.2 C (97.2 F) 07/04/2024 9:34 AM ES T Respiratory Rate 16 07/04/2024 9:34 AM EST Oxygen Saturation 100% 07/04/2024 9:34 AM EST Inhaled Oxygen Concentration - - Weight - - Height - - Body Mass Index - - documented in this encounter Patient Instructions * Patient Instructions* Janeen Jordan RN - 07/04/2024 10:14 AM EST Images from the original note were not included. PREOP PATIENT INFORMATION AND EDUCATION: MEDICATION INSTRUCTIONS: The day of surgery/procedure, you may TAKE the following medications with a sip of water up to 2 hours prior to your arrival time: Aspirin, Lovenox, Protonix, famotidine, Wellbutrin, carvedilol, baclofen, Lyrica, Remeron, Requip, Crestor, Zetia, Buspar, Flomax -Please confirm all medications are okay with surgeon. All meds okay per policy. AVOID / DO NOT TAKE the following medications the morning of surgery/procedure: Lasix, Lisinopril, Spironolactone, Imdur, AVOID / DO NOT TAKE the following medications the evening prior to and morning of surgery/procedure: STOP taking the following medications the noted number of days prior to surgery/procedure unless otherwise specified by your surgeon: Patient was instructed to avoid the following medications and foods one week prior to surgery to decrease risk for bleeding: Multivitamins, Vit E, Herbal teas and supplements, olive oil and garlic, [place] 3s and NSAIDs. Patient instructed to stop Plavix now and stop Eliquis and lisinopril 3 days prior to surgery per Dr. Galvan. He will need a Lovenox bridge for LV thrombus, ACC referral placed. He can continue aspirin for coronary artery disease. - Mulu Davis RN 07/03/2024 10:01 AM This info was pulled directly from the patients office visit from 07/03 with the surgeon's office. Please follow surgeon's instructions regarding use of Aspirin, Coumadin, Plavix, Eliquis, and any other blood thinner including NSAIDs (non-steroidal anti- inflammatory drugs, eg, Advil, Ibuprofen, Motrin, Aleve, Naproxen); if you have any questions regarding your anticoagulation therapy please contact your surgeon's clinic. Please verify any proposed stoppage of your anticoagulation therapy with the agent's prescribing provider. 10 days prior to surgery/procedure Stop all Herbal supplements, Green Tea, Turmeric, Melatonin, CBD, THC, etc. Stop all Vitamins (including Vitamin E) 24 hours prior to surgery/procedure DO NOT consume any alcohol. DO NOT use medical marijuana. DO NOT smoke or use tobacco products of any kind after midnight prior to surgery. *Using any of these products may increase your risks of procedural complications. IF IT IS LESS THAN RECOMMENDED STOPPAGE TIME PLEASE STOP AT TIME OF NOTIFICATION. FASTING RECOMMENDATIONS: To reduce risk, it is important for all elective surgery patients to follow the specific fasting guidelines listed below. If you have received more stringent guidelines, please follow the MOST RESTRICTIVE guidelines that you have been provided. DO NOT EAT after midnight on the night prior to your surgery date. You are allowed to drink clear liquids up to two hours prior to arrival time to the hospital or surgery center. Examples of clear liquids include water, clear fruit juice without pulp, clear carbonated beverages, clear tea, and black coffee. Any drinks given by your surgical service take as directed. THE DAY BEFORE YOUR SURGERY: -Drink plenty of fluid the day before your surgery. Contact your surgeon's office if you develop any of the following within 2 weeks of surgery: A cold Infection Fever Shingles Chicken pox or exposure to chicken pox Open areas such as scrapes, cuts, flores or other skin conditions Rashes GENERAL INSTRUCTIONS FOR PREPARING FOR SURGERY: BATHING INSTRUCTIONS: Bathe the evening prior to and the morning of surgery/procedure. Cleanse your body using ONLY anti-bacterial soap (eg, Dial, Safeguard) or any specific soap/cleansers and instructions provided by your surgeon (eg, Chlorhexidine). -You should brush your teeth the morning of surgery. Do NOT apply any lotions, powders, sprays, creams, oils, make-up, or deodorants after bathing. No hairspray, or nail central african on fingers or toes. Day of surgery/procedure do not use tampons. If you wear contacts wear your eyeglasses if available otherwise bring your contact supplies with you to remove them prior to your surgery/procedure. If you wear glasses or dentures, please bring cases in which you can store them during your surgery. Please remove all piercings and jewelry and leave them at home. Wear comfortable and loose clothing. -Please leave all valuables at home. -If you use a CPAP and are staying overnight, please bring your mask and tubing with you to the hospital. -If you use an assistive mobility device (walker, cane, etc), please label it with your name and bring to hospital. -An escort medical van driver is required if you are being discharged the same day of the surgery. You should have a responsible adult over the age of 18 [address] you home. This person should be present with youin the hospital at the time of discharge and for the first 24 hours after the surgery to support your needs. If you are taking a taxi home, you must have your responsible alliance party accompany you in the taxi ride home at the time of discharge. OR times subject to change. Please check voicemail messages the day/evening before your surgery forany updates. PRE-OP: You will be taken to the pre-op area where your vital signs (blood pressure, pulse and temperature)will be taken. Any preparations that need to be done will be done there. When it is time for your surgery, you will be taken to the operating room. PARENTS OF PEDIATRIC PATIENTS WILL BE ALLOWED TO STAY WITH THEIR CHILDREN UNTIL THEY ARE ESCORTED TO THE OPERATING ROOM OUTPATIENT SURGERY PATIENTS: After your surgery you will be taken to the Same Day Surgery Unit when you are awake and will go home from there. You will get instructions about your home care before you leave. Arrange to have someone drive you home from the hospital. You may not drive for 24 hours after anesthesia. You must havean adult stay with you at home for 24 hours after your operation. This is very important. If you are not able to comply with these guidelines, your Short Stay surgery cannot be done. ADMISSION PATIENTS: After your stay in the recovery area, you will be taken to your room. Your family may visit you in your room based on current visitation policy. If a next day discharge is expected, it is important to make arrangements for a medical van driver to take you home. Please be aware our visitation policies are subject to change Professionals, attendants, caregivers or family members are allowable visitors for patients with intellectual, developmental or cognitive disabilities, communication barriers or behavioral concerns. Because patients' and families' needs vary, they will be taken into account when applying visitation restrictions. [facility]: Contact # [phone] Directions to Surgical Suite in from the [place] Entrance The Surgical Waiting Room can be found in the Lobby [facility]. Enter through Main Lobby Entrance and the Waiting Room is directly in front of you. Proceed to check in and give them your name. Directions to Surgical Suite from the East Entrance Enter the East entrance and follow the hallway to the J elevator. Take the J elevator up to Level 1. Continue down the long hallway to the main [facility] Lobby. The Surgical Waiting Room will be on your Right. Proceed to check in and give them your Name. Directions to Surgical Suite from the Parking Garage Enter the [facility] lobby and proceed down the dong to the left. At the end of the dong, turn right. Continue down the long hallway to the main [facility]. The Surgical Waiting Room will be on your Right. Proceed to check in and give them your Name. THANK YOU FOR CHOOSING [facility]! documented in this encounter Nursing Notes * Janeen Jordan RN - 07/04/2024 9:51 AM EST Images from the original note were not included. PREOP PATIENT INFORMATION AND EDUCATION: MEDICATION INSTRUCTIONS: The day of surgery/procedure, you may TAKE the following medications with a sip of water up to 2 hours prior to your arrival time: Aspirin, Lovenox, Protonix, famotidine, Wellbutrin, carvedilol, baclofen, Lyrica, Remeron, Requip, Crestor, Zetia, Buspar, Flomax -Please confirm all medications are okay with surgeon. All meds okay per policy. AVOID / DO NOT TAKE the following medications the morning of surgery/procedure: Lasix, Lisinopril, Spironolactone, Imdur, AVOID / DO NOT TAKE the following medications the evening prior to and morning of surgery/procedure: STOP taking the following medications the noted number of days prior to surgery/procedure unless otherwise specified by your surgeon: Patient was instructed to avoid the following medications and foods one week prior to surgery to decrease risk for bleeding: Multivitamins, Vit E, Herbal teas and supplements, olive oil and garlic, [place] 3s and NSAIDs. Patient instructed to stop Plavix now and stop Eliquis and lisinopril 3 days prior to surgery per Dr. Galvan. He will need a Lovenox bridge for LV thrombus, ACC referral placed. He can continue aspirin for coronary artery disease. - Mulu Davis RN 07/03/2024 10:01 AM This info was pulled directly from the patients office visit from 07/03 with the surgeon's office. Please follow surgeon's instructions regarding use of Aspirin, Coumadin, Plavix, Eliquis, and any other blood thinner including NSAIDs (non-steroidal anti- inflammatory drugs, eg, Advil, Ibuprofen, Motrin, Aleve, Naproxen); if you have any questions regarding your anticoagulation therapy please contact your surgeon's clinic. Please verify any proposed stoppage of your anticoagulation therapy with the agent's prescribing provider. 10 days prior to surgery/procedure Stop all Herbal supplements, Green Tea, Turmeric, Melatonin, CBD, THC, etc. Stop all Vitamins (including Vitamin E) 24 hours prior to surgery/procedure DO NOT consume any alcohol. DO NOT use medical marijuana. DO NOT smoke or use tobacco products of any kind after midnight prior to surgery. *Using any of these products may increase your risks of procedural complications. IF IT IS LESS THAN RECOMMENDED STOPPAGE TIME PLEASE STOP AT TIME OF NOTIFICATION. FASTING RECOMMENDATIONS: To reduce risk, it is important for all elective surgery patients to follow the specific fasting guidelines listed below. If you have received more stringent guidelines, please follow the MOST RESTRICTIVE guidelines that you have been provided. DO NOT EAT after midnight on the night prior to your surgery date. You are allowed to drink clear liquids up to two hours prior to arrival time to the hospital or surgery center. Examples of clear liquids include water, clear fruit juice without pulp, clear carbonated beverages, clear tea, and black coffee. Any drinks given by your surgical service take as directed. THE DAY BEFORE YOUR SURGERY: -Drink plenty of fluid the day before your surgery. Contact your surgeon's office if you develop any of the following within 2 weeks of surgery: A cold Infection Fever Shingles Chicken pox or exposure to chicken pox Open areas such as scrapes, cuts, flores or other skin conditions Rashes GENERAL INSTRUCTIONS FOR PREPARING FOR SURGERY: BATHING INSTRUCTIONS: Bathe the evening prior to and the morning of surgery/procedure. Cleanse your body using ONLY anti-bacterial soap (eg, Dial, Safeguard) or any specific soap/cleansers and instructions provided by your surgeon (eg, Chlorhexidine). -You should brush your teeth the morning of surgery. Do NOT apply any lotions, powders, sprays, creams, oils, make-up, or deodorants after bathing. No hairspray, or nail central african on fingers or toes. Day of surgery/procedure do not use tampons. If you wear contacts wear your eyeglasses if available otherwise bring your contact supplies with you to remove them prior to your surgery/procedure. If you wear glasses or dentures, please bring cases in which you can store them during your surgery. Please remove all piercings and jewelry and leave them at home. Wear comfortable and loose clothing. -Please leave all valuables at home. -If you use a CPAP and are staying overnight, please bring your mask and tubing with you to the hospital. -If you use an assistive mobility device (walker, cane, etc), please label it with your name and bring to hospital. -An escort medical van driver is required if you are being discharged the same day of the surgery. You should have a responsible adult over the age of 18 [address] you home. This person should be present with youin the hospital at the time of discharge and for the first 24 hours after the surgery to support your needs. If you are taking a taxi home, you must have your responsible alliance party accompany you in the taxi ride home at the time of discharge. OR times subject to change. Please check voicemail messages the day/evening before your surgery forany updates. PRE-OP: You will be taken to the pre-op area where your vital signs (blood pressure, pulse and temperature)will be taken. Any preparations that need to be done will be done there. When it is time for your surgery, you will be taken to the operating room. PARENTS OF PEDIATRIC PATIENTS WILL BE ALLOWED TO STAY WITH THEIR CHILDREN UNTIL THEY ARE ESCORTED TO THE OPERATING ROOM OUTPATIENT SURGERY PATIENTS: After your surgery you will be taken to the Same Day Surgery Unit when you are awake and will go home from there. You will get instructions about your home care before you leave. Arrange to have someone drive you home from the hospital. You may not drive for 24 hours after anesthesia. You must have an adult stay with you at home for 24 hours after your operation. This is very important. If you are not able to comply with these guidelines, your Short Stay surgery cannot be done. ADMISSION PATIENTS: After your stay in the recovery area, you will be taken to your room. Your family may visit you in your room based on current visitation policy. If a next day discharge is expected, it is important to make arrangements for a medical van driver to take you home. Please be aware our visitation policies are subject to change Professionals, attendants, caregivers or family members are allowable visitors for patients with intellectual, developmental or cognitive disabilities, communication barriers or behavioral concerns. Because patients' and families' needs vary, they will be taken into account when applying visitation restrictions. [facility]: Contact # [phone] Directions to Surgical Suite in from the [place] Entrance The Surgical Waiting Room can be found in the Lobby of [facility]. Enter through Main Lobby Entrance and the Waiting Room is directly in front of you. Proceed to check in and give them your name. Directions to Surgical Suite from the East Entrance Enter the East entrance and follow the hallway to the J elevator. Take the J elevator up to Level 1. Continue down the long hallway to the main [place] Lobby. The Surgical Waiting Room will be on your Right. Proceed to check in and give them your Name. Directions to Surgical Suite from the Parking Garage Enter the [facility] lobby and proceed down the dong to the left. At the end of the dong, turn right. Continue down the long hallway to the main [place] Lobby. The Surgical Waiting Room will be on your Right. Proceed to check in and give them your Name. THANK YOU FOR CHOOSING [facility] documented in this encounter Plan of Treatment Upcoming Encounters Date Type Department Care Team (Latest Contact Info) Description 07/08/2024 7:00 AM EST Hospital Encounter [facility], OPERATING ROOM [facility] [address] [place] [address] Jayden Galvan MD [address] [place] [address] 07/08/2024 7:00 AM EST - 07/08/2024 12:15 PM EST Surgery [facility], OPERATING ROOM [facility] [address] [place] [address] Jayden Galvan MD [address] [place] [address] CORONARY ARTERY BYPASS GRAFT USING ARTERY 1 GRAFT 09/17/2024 8:40 AM EDT Office Visit [address] [place] [address] Leon Galvan, [address] [place] [address] 09/18/2024 8:00 AM EDT Office Visit Cardiology, [facility] [address] [place] [address] Alexandra Mackenzie CRNP [address] [place] [address] 10/10/2024 3:30 PM EDT Imaging Radiology [facility] [address] [place] [address] 10/17/2024 9:00 AM EDT Office Visit Urology, [facility] [address] [place] [address] Johnathon Kent PA-C [address] [place] [address] 02/06/2025 9:30 AM EDT Office Visit Cardiology, [facility] [address] [place] [address] Poncho Robledo, DO [address] [facility] [address] Scheduled Procedures Name Priority Associated Diagnoses Date/Ti me CORONARY ARTERY BYPASS GRAFT USING ARTERY 1 GRAFT Coronary artery disease involving salt river coronary artery of [place] river heart with unstable angina pectoris (HCC) 07/08/2024 7:00 AM EST CORONARY ARTERY BYPASS GRAFT ARTERIAL AND VENOUS 2 GRAFTS Coronary artery disease involving [place] coronary artery of [place] river heart with unstable angina pectoris (HCC) 07/08/2024 7:00 AM EST ENDOSCOPY VIDEO ASSISTED HARVEST VEIN Coronary artery disease involving salt [place] coronary artery of salt river heart with unstable angina pectoris (HCC) 07/08/2024 7:00 AM EST Health Maintenance Due [...] 02/15/2024, Additional history exists HbA1c 07/04/2025 07/04/2024, 12/0 03/2024, 02/15/2024, Additional history exists Albumin/Creatinine Ratio 08/17/2026 [...] this encounter Medical Devices Implanted Type Area Rerecording Mixer Device Identifier Shelf Expiration Date Model / Serial / Lot Lead Kit Trial [id number] 50cm - [id number] - [id number] Implanted:Qty: 1 on 05/08/2024 by Maged Monreal DO at OR [facility] Left: Back [employer] : PAIN MGMT 03/18/2026 [id number] 50E0 / [id number] / Lead Kit Trial [id number] 50cm - [id number] - [id number] Implanted:Qty: 1 on 05/08/2024 by Maged Monreal DO at OR [facility] Right: Back [employer] : PAIN MGMT 03/18/2026 [id number] / [id number] / documented as of this encounter Care Teams Absorber Operator Relationship Specialty Start Date End Date Leon Galvan DO [address] [place] [address] PCP - General Internal Medicine 12/28/23 documented as of this encounter
--- OUTSIDE RECORDS SUMMARY | 2024-08-06 22:39 | External Medical Summary ---
Author Name Unknown Address Unknown Organization : Laboratory Report Ordering Provider Test Date Status BLAKE RAM 07/08/2024 08:01:04 Final NORMAL (NON-HEPARINIZED) 74- 137 SECONDS
HEPARINIZED 200+ SECONDS
CRITICAL GREATER THAN 1000 SECONDS
null Observation Date Value Abnormality Reference (Units ) Status Kaolin activated time [Units/volume] in Blood 07/08/2024 08:01:04 129 50-1000 (secs) Final Performing Location
--- OUTSIDE RECORDS SUMMARY | 2024-08-06 22:39 | External Medical Summary | Summary of Care ---
Author Name Unknown Organization [facility] Address [address] [place] [address] Phone [phone] Care Team Providers Care Environmental Field Services Technician Name Role Phone Leon Galvan DO Primary Care Provider [phone] Encounter Details Date Type Department Care Team (Latest Contact Info) Description 07/03/2024 10:52 AM EST - 07/03/2024 11:38 AM EST Hospital Encounter Vascular Lab [address] [address] Arrived Discharge Disposition: Home - Self Care Allergies Active Allergy Reactions Criticality Noted Date Comments Codeine Other (Please comment) High 09/08/2013 Severe Skin peeling documented as of this encounter (statuses as of 07/04/2024) Medications oxygen GASIndications:C hronic coronary artery disease,COPD, [...] 5 11/21/2023 10:41 AM EDT 3 Active Dutasteride 0.5 MG Oral Capsule (Avodart)Indicat ions:BPH with obstruction/lowe r urinary tract symptoms Take 1 Capsule by mouth in the morning. 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 100 Tablet 3 11/21/2023 10:41 AM EDT 3 Active Ezetimibe 10 MG Oral Tablet (Zetia)Indicatio ns:Dyslipidemia, goal LDL below 70 TAKE ONE TABLET BY MOUTH DAILY 100 Tablet 3 11/21/2023 10:41 AM EDT 3 Active Nitroglycerin 0.4 MG Sublingual Tablet Sublingual (Nitrostat)Indic ations:Coronary artery disease of [place] artery of [place] heart with stable angina pectoris (HCC) Place [...] taking differently:0.4 mg OralDAILY NOON, Reported on 07/03/2024 Pregabalin 75 MG Oral Capsule (Lyrica)Indicati ons:Neuropathy [...] before bedtime. 60 Tablet 6 4 Active Hospital, Clinic, or Other Facility Administered Medication Ordered Dose Route Frequency Start Date End Date Status vitamin b-12 (Cyanocobalamin) inj 1,000 mcgIndications:Vitamin B 12 deficiency 1000 mcg IM [id number] 08/17/2023 07/18/2024 Active documented as of this encounter (statuses as of 07/04/2024) Active Problems Problem Noted Date Diagnosed Date Coronary artery disease invo lving [place] coronary artery of [place] heart with unstable angina pectoris 07/03/2024 Vitamin [...] as of this encounter (statuses as of 07/04/2024) Resolved Problems Problem Noted Date Diagnosed Date Resolved Date Type 2 diabetes mellitus wit h autonomic neuropathy 08/17/2023 09/17/2023 Atherosclerosis of [place] co ronary artery without angina pectoris 08/17/2023 [...] as of this encounter (statuses as of 07/04/2024) Immunizations Name Administration Dates Next Due COVID-19 [...] 07/08/2024 7:00 AM EST Hospital Encounter [place] [facility] OPER[facility] ROOM [facility] [address] [place] [address] Jayden Galvan MD [address] [place] [address] 07/08/2024 7:00 AM EST Anesthesia Event [place] [facility] OPERATING ROOM [facility] [address] [place] [address] Janeen Jordan RN 07/08/2024 7:00 AM EST - 07/08/2024 12:15 PM EST Surgery OR [facility], OPERATING ROOM [facility] [address] [place] [address] Jayden Galvan MD [address], [place] [id number] CORONARY ARTERY BYPASS GRAFT USING ARTERY 1 GRAFT 09/17/2024 8:40 AM EDT Office Visit Family [facility] [address] [address] Leon Galvan, DO [address] [place] [address] 09/18/2024 8:00 AM EDT Office Visit Cardiology, [facility] [address] [facility] [place] [address] Alexandra Mackenzie CRNP [address] [place] [address] 10/10/2024 3:30 PM EDT Imaging Radiology [facility] [address] [place] [address] 10/17/2024 9:00 AM EDT Office Visit Urology, [place] [address] [place] [address] Johnathon Kent PA-C [address], [place] [id number] 02/06/2025 9:30 AM EDT Office Visit Cardiology, [facility] [address] [place] [address] Poncho Robledo, [address] [facility] [place] [address] Scheduled Procedures Name Priority Associated Diagnoses Date/Ti me CORONARY ARTERY BYPASS GRAFT USING ARTERY 1 GRAFT Coronary artery disease involving [place] coronary artery of [place] heart with unstable angina pectoris ([facility]) 07/08/2024 7:00 AM EST CORONARY ARTERY BYPASS GRAFT ARTERIAL AND VENOUS 2 GRAFTS Coronary artery disease involving [place] coronary artery of [place] heart with unstable angina pectoris ([facility]) 07/08/2024 7:00 AM EST ENDOSCOPY VIDEO ASSISTED HARVEST VEIN Coronary artery disease involving [place] coronary artery of [place] heart with unstable angina pectoris ([facility]) 07/08/2024 7:00 AM EST Health Maintenance Due Date Last Done Comments Cologuard 1995 Sigmoidoscopy 1995 Fecal Occult Blood Test 12/20/2008 12/21/2007 *ADVANCE DIRECTIVE NOT ON FILE 2019 DISCUSS TOBACCO CESSATION (REFER TO SMARTSET #3291) 06/18/2024 06/18/2023, 01/24/2017 Adult Wellness Visit 02/17/2025 02/18/2024, 10/31/2022, 08/17/2021 Depression Screening 02/17/2025 02/18/2024, 01/02/20 24 O2 ASSESSMENT COMPLETED IN PAST YEAR FOR COPD 05/08/2025 05/08/2024 GFR 06/16/2025 07/04/2024, 03/2024, 02/15/2024, Additional history exists HbA1c 06/16/2025 06/16/2024, 03/2024, 09/17/2023, Additional history exists Albumin/Creatinine Ratio 08/17/2026 024, [...] this encounter Medical Devices Implanted Type Area Radio Television Announcer Device Identifier Shelf Expiration Date Model / Serial / Lot Lead Kit Trial [id number] 50cm - [id number] - [id number] Implanted:Qty: 1 on 05/08/2024 by Maged Monreal DO at OR [facility] Left: Back [employer] : PAIN MGMT 03/18/2026 [id number] / [id number] / Lead Kit Trial [id number] 50cm - [id number] - [id number] Implanted:Qty: 1 on 05/08/2024 by Maged Monreal DO at OR [facility] Right: Back [employer] : PAIN MGMT 03/18/2026 [id number] 50E0 / [id number] / documented as of this encounter Procedures Procedure Name Priority Date/Time Associated Diagnosis Comments VASC VEIN MAP BYPASS GRAFT PREOP EVAL Routine 07/03/2024 11:13 AM EST Coronary artery disease involving [place] coronary artery of [place] heart with unstable angina pectoris (HCC) documented in this encounter Results * VASC VEIN MAP BYPASS GRAFT PREOP EVAL (07/03/2024 11:13 AM EST) Anatomical Region Laterality Modality Extremity, Vascular Ultrasound Narrative 07/03/2024 12:35 PM EST VASCULAR LAB RESULTS DATE OF EXAMINATION: 07/03/24 INDICATION: Pre op vein map LOWER EXTREMITY VENOUS DUPLEX FOR PREOP VEIN MAPPING Immediately before proceeding with the vascular lab procedure below, the identity of the patient, the correct exam and the correct procedural site were verified. Webb scale, color flow and spectral doppler were performed for this examination. Lower extremity great saphenous vein examination with duplex imaging was conducted for preoperative mapping prior to surgery. Right great saphenous vein is patent with normal venous flow with the following size measurements: Proximal thigh 4.0 mm Mid-thigh 4.8 mm Distal thigh 5.3 mm Right knee 4.6 mm Proximal calf 3.8 mm Mid-calf 3.8 mm Right ankle 3.5 mm Left great saphenous vein is patent with normal venous flow with the following size measurements: Proximal thigh 4.2 mm Mid-thigh 5.0 mm Distal thigh 5.2 mm Left knee 4.7 mm Proximal calf 4.4 mm Mid-calf 3.5 mm Left ankle 4.4 mm CONCLUSION: Patent right great saphenous vein with size measurements as noted. Patent left great saphenous vein with size measurements as noted. us Jayden Mejias MD RAD VASCULAR Final Resul t documented in this encounter Visit Diagnoses Diagnosis Coronary artery disease involving [place] coronary artery of [place] heart with unstable angina pectoris (HCC)- Primary Coronary artery disease involving [place] coronary artery of [place] heart with unstable angina pectoris (HCC) Coronary artery disease involving [place] coronary artery of [place] heart with unstable angina pectoris (HCC) Coronary artery disease involving [place] coronary artery of [place] heart with unstable angina pectoris (HCC) documented in this encounter Care Teams Environmental Field Services Technician Relationship Specialty Start Date End Date Leon Galvan DO [address] [place] [address] PCP - General Internal Medicine 12/28/23 documented as of this encounter
--- OUTSIDE RECORDS SUMMARY | 2024-08-06 22:39 | External Medical Summary ---
Author Name Unknown Address Unknown Organization K01:LABORATORY [place] [address] [facility] [address] Laboratory Report Ordering Provider Test Date Status PLACIDO NGUYEN 07/08/2024 10:00:32 Final Observation Date Value Abnormality Reference (Units ) Status WBC, Total 07/08/2024 10:00:32 13.47 Above high normal 4.00-10.80 (K/uL) Final RBC 07/08/2024 10:00:32 2.98 4.50-5.25 (M/uL) Final Hemoglobin 07/08/2024 10:00:32 9.7 Below low normal 14.0-16.8 (g/dL) Final HCT 07/08/2024 10:00:32 27.9 Below low normal 40.0-48.4 (%) Final MCV 07/08/2024 10:00:32 93.6 82.0-99.5 (fL) Final MCH 07/08/2024 10:00:32 32.6 27.0-34.0 (pg) Final MCHC 07/08/2024 10:00:32 34.8 32.0-36.0 (g/dL) Final RDW 07/08/2024 10:00:32 12.8 11.5-15.5 (%) Final Platelets 07/08/2024 10:00:32 119 Below low normal 140-400 (K/uL) Final MPV 07/08/2024 10:00:32 11.4 6.6-11.1 (fL) Final Nucleated erythrocytes/100 leukocytes [Ratio] in Blood by Automated count 07/08/2024 10:00:32 0 <=0 (/100 WBCs) Final Performing Location LABORATORY [facility] [place] - [address] [facility] [address]
--- OUTSIDE RECORDS SUMMARY | 2024-08-06 22:39 | External Medical Summary ---
Author Name Unknown Address Unknown Organization : Laboratory Report Ordering Provider Test Date Status BLAKE RAM 07/08/2024 08:00:09 Final Observation Date Value Abnormality Reference (Units) Status Blood draw [PhenX] 07/08/2024 08:00:09 Arterial Draw Final pH, POC (i-STAT) 07/08/2024 08:00:09 7.262 Below low normal 7.350-7.450 Final PCO2 POC (i-STAT) 07/08/2024 08:00:09 57.3 Above upper panic limits 35.0-45.0 (mm Hg) Final PO2 POC (i-STAT) 07/08/2024 08:00:09 545 Above high normal 75-100 (mm Hg) Final Base excess standard in Arterial blood by calculation 07/08/2024 08:00:09 -2 -2-2 (mmol/L) Final Bicarbonate, Venous, POC (i-STAT) 07/08/2024 08:00:09 25.8 23.0-31.0 (mmol/L) Final O2 Sat, calculated POC (i-STAT) 07/08/2024 08:00:09 100.0 Above high normal 94.0-98.0 (%) Final Glucose, whole blood 07/08/2024 08:00:09 106 70-120 (mg/dL) Final Potassium, Whole Blood 07/08/2024 08:00:09 4.2 3.5-5.1 (mmol/L) Final Sodium, Whole Blood 07/08/2024 08:00:09 139 135-146 (mmol/L) Final Calcium, Ionized, Whole Blood 07/08/2024 08:00:09 1.21 1.13-1.32 (mmol/L) Final Hemoglobin POC (i-STAT) 07/08/2024 08:00:09 12.6 Below low normal 14.0-16.8 (g/dL) Final HCT 07/08/2024 08:00:09 37 Below low normal 40-48 (%) Final Performing Location
--- OUTSIDE RECORDS SUMMARY | 2024-08-06 22:39 | External Medical Summary ---
Author Name Unknown Address Unknown Organization K01:LABORATORY [facility] [place] - [address] [place] [address] Laboratory Report Ordering Provider Test Date Status PLACIDO NGUYEN 07/08/2024 09:50:41 Final Warfarin Therapy
INR: 2 .0-3.0 conventional anticoagulation
INR: 2.5- 3.5 high intensity anticoagulation Observation Date Value Abnormality Reference (Units ) Status PT 07/08/2024 09:50:41 16.0 Above high normal 11 .6-15.2 (seconds) Final INR 07/08/2024 09:50:41 1.3 Above high normal 0. 8-1.2 Final Performing Location LABORATORY [facility] - [address] [place] [address]
--- OUTSIDE RECORDS SUMMARY | 2024-08-06 22:39 | External Medical Summary ---
Author Name Unknown Address Unknown Organization K01:LAB[facility]ATORY [facility] - [address] [place] [address] Laboratory Report Ordering Provider Test Date Status BLAKE RAM 07/08/2024 09:47:00 Final Observation Date Value Abnormality Reference (Units ) Status HCT 07/08/2024 09:47:00 29.9 Below low normal 40. 0-48.4 (%) Final Performing Location LABORATORY [facility] - [address] [place] [address]
--- OUTSIDE RECORDS SUMMARY | 2024-08-06 22:39 | External Medical Summary ---
Author Name Unknown Address Unknown Organization K01:LABORATORY [facility] [place] [place] - [address] [place] [address] Laboratory Report Ordering Provider Test Date Status PLACIDO NGUYEN 07/08/2024 09:50:41 Final Observation Date Value Abnormality Reference (Units ) Status Fibrinogen 07/08/2024 09:50:41 246 178-467 ( mg/dL) Final Performing Location LABORATORY [facility] - [address] [place] [address]
--- OUTSIDE RECORDS SUMMARY | 2024-08-06 22:39 | External Medical Summary ---
Author Name Unknown Address Unknown Organization K01:LABORATORY [facility] [place] - [address] [place] [address] Laboratory Report Ordering Provider Test Date Status BLAKE RAM 07/08/2024 09:47:00 Final Observation Date Value Abnormality Reference (Units ) Status Fibrinogen 07/08/2024 09:47:00 251 178-467 ( mg/dL) Final Performing Location LABORATORY [facility] [place] - [address] [place] [address]
--- OUTSIDE RECORDS SUMMARY | 2024-08-06 22:39 | External Medical Summary ---
Author Name Unknown Address Unknown Organization : Laboratory Report Ordering Provider Test Date Status BLAKE RAM 07/08/2024 09:56:47 Final NORMAL (NON-HEPARINIZED) 74- 137 SECONDS
HEPARINIZED 200+ SECONDS
CRITICAL GREATER THAN 1000 SECONDS
null Observation Date Value Abnormality Reference (Units ) Status Kaolin activated time [Units/volume] in Blood 07/08/2024 09:56:47 452 50-1000 (secs) Final Performing Location
--- OUTSIDE RECORDS SUMMARY | 2024-08-06 22:39 | External Medical Summary ---
Author Name Unknown Address Unknown Organization K01:LABORATORY [facility] [place] - [address] [facility] [address] Laboratory Report Ordering Provider Test Date Status BLAKE RAM 07/08/2024 09:47:00 Final Observation Date Value Abnormality Reference (Units ) Status Body temperature 07/08/2024 09:47:00 37.0 (C) Final pH of Arterial blood 07/08/2024 09:47:00 7.370 7.350-7.450 (units) Final Carbon dioxide [Partial pressure] in Arterial blood 07/08/2024 09:47:00 40.7 35.0-45.0 (mmHg) Final Oxygen [Partial pressure] in Arterial blood 07/08/2024 09:47:00 204.0 Above high normal 75.0-100.0 (mmHg) Final Base excess, Arterial 07/08/2024 09:47:00 -1.6 -2.0-2.0 (mmol/L) Final Hemoglobin [Mass/volume] in Blood by Oximetry 07/08/2024 09:47:00 10.6 Below low normal 14.0-16.8 (g/dL) Final Oxyhemoglobin, Arterial (FO2HB) 07/08/2024 09:47:00 96.4 94.0-99.0 (% total Hgb) Final Carboxyhemoglobin 07/08/2024 09:47:00 2.0 Above high normal <=1.5 (% total Hgb) Final Smokers: 0-9.0 % Methemoglobin 07/08/2024 09:47:00 1.0 <=1.5 (% total Hgb) Final Deoxyhemoglobin/Hemog lobin.total in Arterial blood 07/08/2024 09:47:00 0.6 0.0-5.0 (% total Hgb) Final Oxygen content in Arterial blood 07/08/2024 09:47:00 14.8 Below low normal 15.0-24.0 (%vol) Final Oxygen/Total gas setting [Volume Fraction] Ventilator 07/08/2024 09:47:00 Not Provided (%) Final O2 FLOW, ARTERIAL - [facility] 07/08/2024 09:47:00 Not Provided (L/min) Final Bicarbonate, Venous, POC (i-STAT) 07/08/2024 09:47:00 22.9 Below low normal 23.0-31.0 (mmol/L) Final Performing Location LABORATORY [facility] [place] - [address] [facility] [address]
--- OUTSIDE RECORDS SUMMARY | 2024-08-06 22:39 | External Medical Summary ---
Author Name Unknown Address Unknown Organization K01:[facility] [place] [facility] [address] [facility] [address] Laboratory Report Ordering Provider Test Date Status BLAKE RAM 07/08/2024 09:47:00 Final Observation Date Value Abnormality Reference (Units ) Status Clot formation [Time] in Blood by Thromboelastography 07/08/2024 09:47:00 7.1 2.5-8.3 (minutes) Final Clot strength in Blood by Thromboelastography 07/08/2024 09:47:00 1.8 0.5-3.7 (minutes) Final Clot angle in Blood by Thromboelastography 07/08/2024 09:47:00 65.4 46.8-78.4 (degrees) Final Maximum clot firmness [Length] in Blood by Thromboelastography 07/08/2024 09:47:00 59.5 50.6-72.5 (mm) Final Coagulation index in Blood b y Thromboelastography 07/08/2024 09:47:00 -0.8 -3.0-3.0 Final Clot Lysis [Length fraction] in Blood by Thromboelastography --30 minutes post maximum clot amplitude 07/08/2024 09:47:00 0.5 0.0-7.5 (%) Final This is an appended report. These results have been appended to a previously preliminary verified report. Performing Location [facility] [place] [address] [facility] [address]
--- OUTSIDE RECORDS SUMMARY | 2024-08-06 22:39 | External Medical Summary ---
Author Name Unknown Address Unknown Organization : Laboratory Report Ordering Provider Test Date Status BLAKE RAM 07/08/2024 09:16:20 Final NORMAL (NON-HEPARINIZED) 74- 137 SECONDS
HEPARINIZED 200+ SECONDS
CRITICAL GREATER THAN 1000 SECONDS
null Observation Date Value Abnormality Reference (Units ) Status Kaolin activated time [Units/volume] in Blood 07/08/2024 09:16:20 613 50-1000 (secs) Final Performing Location
--- OUTSIDE RECORDS SUMMARY | 2024-08-06 22:39 | External Medical Summary | Summary of Care ---
Author Name Unknown Organization [facility] Address [address] [place] [address] Phone [phone] Care Team Providers Care Golf Tournament Consultant Name Role Phone Leon Galvan DO Primary Care Provider [phone] Encounter Details Date Type Department Care Team (Late st Contact Info) Description 07/04/2024 9:00 AM EST Pre-Admission Testing Pre Surgery, [facility] [address] [place] [address] [facility], [facility] [address] [place] [address] Allergies Active Allergy Reactions Criticality [...] (Lasix)Indicatio ns:Heart failure, systolic, due to CAD ([facility]) take one pill by mouth once [...] disease,Heart failure, systolic, due to CAD (HCC),Old [place] (myocardial infarction),Clamp Operator lawrence stable 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 (HCC) Place [...] mcgIndications:Vitamin B 12 deficiency 1000 mcg IM [id number] 08/17/2023 07/18/2024 Active documented as of this encounter (statuses as of 07/07/2024) Active Problems Problem Noted Date Diagnosed Date Coronary artery disease invo lving big sandy coronary artery of big sandy heart with unstable angina pectoris 07/03/2024 Vitamin [...] autonomic neuropathy 08/17/2023 09/17/2023 Atherosclerosis of big sandy co ronary artery without angina pectoris 08/17/2023 [...] Vac., MDV , IM, 0.5 mL (Fluzone) 03/17/2015,05/27/2014,04/08/2008,04/18,05/25/2006,06/21/2005,06/03/2002 Seasonal Influenza, High Dos e, Trivalent, PF, [...] teas and supplements, olive oil and garlic, [place] 3s and NSAIDs. Patient instructed to stop [...] deodorants after bathing. No hairspray, or nail vatican citizen on fingers or toes. Day of surgery/procedure [...] name and bring to hospital. -An escort hog driver is required if you are being [...] taxi home, you must have your responsible green party accompany you in the taxi ride home at the time of discharge. OR times subject to change. Please check voiceROXIMITYil messages the day/evening before your surgery forany [...] is important to make arrangements for a hog driver to take you home. Please be aware our visitation policies are subject to change Professionals, attendants, caregivers or family members are allowable visitors for patients with intellectual, developmental or cognitive disabilities, communication barriers or behavioral concerns. Because patients' and families' needs vary, they will be taken into account when applying visitation restrictions. [facility]: Contact # [phone] Directions to Surgical Suite in from the [place] Entrance The Surgical Waiting Room [facility] found [facility] the [facility]. Enter through Main Lobby Entrance [...] Suite from the Parking Garage Enter the [facility] lobby and proceed down the dong to the left. At the end of the dong, turn right. Continue down the long hallway to the main [facility] Lobby. The Surgical Waiting Room will be on your Right. Proceed to check in and give them your Name. THANK YOU FOR CHOOSING [facility]! documented in this encounter Nursing Notes * Danya Weldon LPN - 07/07/2024 8:47 AM EST Patient was contacted for Specialty HTN. Visit date not found (in office), Visit date not found (telemedicine) Care Gap Outreach Action Taken: Did not contact: After chart review outreach not indicated. Cardiac surgery scheduled for tomorrow Danya Weldon LPN 07/07/2024 * Janeen Jordan RN - 07/04/2024 9:51 [...] teas and supplements, olive oil and garlic, [place] 3s and NSAIDs. Patient instructed to stop [...] deodorants after bathing. No hairspray, or nail vatican citizen on fingers or toes. Day of surgery/procedure [...] name and bring to hospital. -An escort hog driver is required if you are being [...] taxi home, you must have your responsible green party accompany you in the taxi ride [...] is important to make arrangements for a hog driver to take you home. Please be aware our visitation policies are subject to change Professionals, attendants, caregivers or family members are allowable visitors for patients with intellectual, developmental or cognitive disabilities, communication barriers or behavioral concerns. Because patients' and families' needs vary, they will be taken into account when applying visitation restrictions. [facility]: Contact # [phone] Directions to Surgical Suite in from the [place] Entrance The Surgical Waiting Room can be found in the Lobby of [facility]. Enter through Main Lobby Entrance and the Waiting Room is directly in front of you. Proceed to check in and give them your name. Directions to Surgical Suite from the East Entrance Enter the East entrance and follow the hallway to the J elevator. Take the J elevator up to Level 1. Continue down the long hallway to the main [facility] Lobby. The Surgical Waiting Room will be on your Right. Proceed to check in and give them your Name. Directions to Surgical Suite from the Parking Garage Enter the [facility] lobby and proceed down the dong to the left. At the end of the dong, turn right. Continue down the long hallway to the main [facility] Lobby. The Surgical Waiting Room will be on your Right. Proceed to check in and give them your Name. THANK YOU FOR CHOOSING [facility] documented in this encounter Plan of Treatment Upcoming Encounters Date Type Department Care Team (Latest Contact Info) Description 07/08/2024 7:00 AM EST Hospital Encounter [facility], OPERATING ROOM [facility] [address] [place] [facility] [place] [address] Jayden Galvan MD [address] [place], [place] [id number] 07/08/2024 7:00 AM EST - 07/08/2024 12:15 PM EST Surgery OR [facility], OPERATING ROOM [facility] [address] [place] [facility] [place] [address] Jayden Galvan MD [address] [place] [address] CORONARY ARTERY BYPASS GRAFT USING ARTERY 1 GRAFT 09/17/2024 8:40 AM EDT Office Visit Family Practice [address] [place] [address] [address] [place] [address] Leon Galvan DO [address] [place] [address] 09/18/2024 8:00 AM EDT Office Visit Cardiology, [facility] [address] [facility] [place] [address] Alexandra Mackenzie CRNP [address] [facility] [place] [address] 10/10/2024 3:30 PM EDT Imaging Radiology [facility] [address] [place] [address] 10/17/2024 9:00 AM EDT Office Visit Urology, [place] [address] [place], [place] [id number] Johnathon Kent PA-C [address] [place] [address] 02/06/2025 9:30 AM EDT Office Visit Cardiology, [facility] [address] [place] [address] Poncho Robledo DO [address] [place] [address] Scheduled Procedures Name Priority Associated Diagnoses Date/Ti me CORONARY ARTERY BYPASS GRAFT USING ARTERY 1 GRAFT Coronary artery disease involving big sandy coronary artery of big sandy heart with unstable angina pectoris (HCC) 07/08/2024 7:00 AM EST CORONARY ARTERY BYPASS GRAFT ARTERIAL AND VENOUS 2 GRAFTS Coronary artery disease involving big sandy coronary artery of big sandy heart with unstable angina pectoris ([facility]) 07/08/2024 7:00 AM EST ENDOSCOPY VIDEO ASSISTED HARVEST VEIN Coronary artery disease involving big sandy coronary artery of big sandy heart with unstable angina pectoris ([facility]) 07/08/2024 7:00 AM EST Health Maintenance Due Date Last Done Comments Cologuard 1995 Sigmoidoscopy 1995 Fecal Occult Blood Test 12/20/2008 12/21/2007 *ADVANCE DIRECTIVE NOT ON FILE 2019 DISCUSS TOBACCO CESSATION (REFER TO SMARTSET #3291) 06/18/2024 06/18/2023, 01/24/2017 Adult Wellness Visit 02/17/2025 02/18/2024, 10/31/2022, 08/17/2021 Depression Screening 02/17/2025 02/18/2024, 01/02/20 24 O2 ASSESSMENT COMPLETED IN PAST YEAR FOR COPD 05/08/2025 05/08/2024 GFR 07/04/2025 07/04/2024, 0 03/2024, 02/15/2024, Additional history exists HbA1c 07/04/2025 07/04/2024, 120 03/2024, 02/15/2024, Additional history exists Albumin/Creatinine Ratio [...] this encounter Medical Devices Implanted Type Area Speech And Hearing Clinic Director Device Identifier Shelf Expiration Date Model / Serial / Lot Lead Kit Trial [id number] 50cm - [id number] - [id number] Implanted:Qty: 1 on 05/08/2024 by Maged Monreal DO at OR [facility] Left: Back [employer] : PAIN MGMT 03/18/2026 [id number] 50E0 / [id number] / Lead Kit Trial [id number] 50cm - [id number] - [id number] Implanted:Qty: 1 on 05/08/2024 by Maged Monreal DO at OR [facility] Right: Back [employer] : PAIN MGMT 03/18/2026 [id number] 50E0 / [id number] / documented as of this encounter Care Teams Golf Tournament Consultant Relationship Specialty Start Date End Date Leon Galvan DO [address] [place] [address] PCP - General Internal Medicine 12/28/23 documented as of this encounter
--- OUTSIDE RECORDS SUMMARY | 2024-08-06 22:39 | External Medical Summary | Summary of Care ---
Author Name Unknown Organization [facility] Address [address] [place] [address] Phone [phone] Care Team Providers Care Identity Management Developer Name Role Phone Leon Galvan DO Primary Care Provider [phone] Encounter Details Date Type Department Care Team (Late st Contact Info) Description 07/04/2024 9:00 AM EST Pre-Admission Testing Pre Surgery, [facility] [address] [place] [address] [facility], [facility] [address] [place] [address] Allergies Active Allergy Reactions Criticality [...] (Lasix)Indicatio ns:Heart failure, systolic, due to CAD ([facility]) take one pill by mouth [...] disease,Heart failure, systolic, due to CAD (HCC),[place] (myocardial infarction),Historical Manuscripts Curator lawrence stable 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 100 Tablet 3 11/21/2023 10:41 AM EDT 3 Active Ezetimibe 10 MG Oral Tablet (Zetia)Indicatio ns:Dyslipidemia, goal LDL below 70 TAKE ONE TABLET BY MOUTH DAILY 100 Tablet 3 11/21/2023 10:41 AM EDT 3 Active Nitroglycerin 0.4 MG Sublingual Tablet Sublingual (Nitrostat)Indic ations:Coronary artery disease of telida artery of telida heart with stable angina pectoris (HCC) Place [...] mcgIndications:Vitamin B 12 deficiency 1000 mcg IM [id number] 08/17/2023 07/18/2024 Active documented as of this encounter (statuses as of 07/07/2024) Active Problems Problem Noted Date Diagnosed Date Coronary artery disease invo lving telida coronary artery of telida heart with unstable angina pectoris 07/03/2024 Vitamin [...] failure, systolic, due to CAD 09/08/2013 [place] (myocardial infarction) 09/08/2013 Dyslipidemia, goal LDL below 70 06/15/2009 Overview (06/15/2009): Per Lipid Taxonomy. Esophageal reflux 12/03/2007 BPH without obstruction/lower urinary tract symp toms 08/03/2006 Tobacco use disorder 06/03/2002 documented as of this encounter (statuses as of 07/07/2024) Resolved Problems Problem Noted Date Diagnosed Date Resolved Date Type 2 diabetes mellitus wit h autonomic neuropathy 08/17/2023 09/17/2023 Atherosclerosis of telida co ronary artery without angina pectoris 08/17/2023 [...] teas and supplements, olive oil and garlic, [place] 3s and NSAIDs. Patient instructed to stop [...] deodorants after bathing. No hairspray, or nail lithuanian on fingers or toes. Day of surgery/procedure [...] name and bring to hospital. -An escort commercial driver's license driver is required if you are being [...] taxi home, you must have your responsible libertarian accompany you in the taxi ride home [...] is important to make arrangements for a commercial driver's license driver to take you home. Please be aware our visitation policies are subject to change Professionals, attendants, caregivers or family members are allowable visitors for patients with intellectual, developmental or cognitive disabilities, communication barriers or behavioral concerns. Because patients' and families' needs vary, they will be taken into account when applying visitation restrictions. [facility]: Contact # [phone] Directions to Surgical Suite in from the [place] Entrance The Surgical Waiting Room can be found in the Lobby [facility]. Enter through Main Lobby Entrance and the Waiting Room is directly in front of you. Proceed to check in and give them your name. Directions to Surgical Suite from the East Entrance Enter the East entrance and follow the hallway to the J elevator. Take the J elevator up to Level 1. Continue down the long hallway to the main [facility] Lobby. The Surgical Waiting Room will be on your Right. Proceed to check in and give them your Name. Directions to Surgical Suite from the Parking Garage Enter the [facility] lobby and proceed down the dong to the left. At the end of the dong, turn right. Continue down the long hallway to the main [facility]. The Surgical Waiting Room will be on [...] teas and supplements, olive oil and garlic, [place] 3s and NSAIDs. Patient instructed to stop [...] deodorants after bathing. No hairspray, or nail lithuanian on fingers or toes. Day of surgery/procedure [...] name and bring to hospital. -An escort commercial driver's license driver is required if you are being [...] taxi home, you must have your responsible libertarian accompany you in the taxi ride home [...] is important to make arrangements for a commercial driver's license driver to take you home. Please be aware our visitation policies are subject to change Professionals, attendants, caregivers or family members are allowable visitors for patients with intellectual, developmental or cognitive disabilities, communication barriers or behavioral concerns. Because patients' and families' needs vary, they will be taken into account when applying visitation restrictions. [facility]: Contact # [phone] Directions to Surgical Suite in from the [place] Entrance The Surgical Waiting Room can be found in the Lobby of [facility]. Enter through Main Lobby Entrance [...] Suite from the Parking Garage Enter the [facility] lobby and proceed down the dong to the left. At the end of the dong, turn right. Continue down the long hallway to the main [facility] Lobby. The Surgical Waiting Room will be on your Right. Proceed to check in and give them your Name. THANK YOU FOR CHOOSING [facility] documented in this encounter Plan of Treatment Upcoming Encounters Date Type Department Care Team (Latest Contact Info) Description 07/08/2024 7:00 AM EST Hospital Encounter OR [facility], OPERATING ROOM [facility] [address] [place] [address] Jayden Galvan MD [address] [place] [address] 07/08/2024 7:00 AM EST - 07/08/2024 12:15 PM EST Surgery [facility], OPERATING ROOM [facility] [address] [place] [address] Jayden Galvan MD [address] [place] [address] CORONARY ARTERY BYPASS GRAFT USING ARTERY 1 GRAFT 09/17/2024 8:40 AM EDT Office Visit [address] [place] [address] Leon Galvan, [address] [place] [address] 09/18/2024 8:00 AM EDT Office Visit Cardiology, [facility] system [address] [place] [address] Alexandra Mackenzie CRNP [address] [place] [address] 10/10/2024 3:30 PM EDT Imaging Radiology Health system [address] [place] [address] 10/17/2024 9:00 AM EDT Office Visit Urology, [place] [address] [place] [address] Johnathon Kent PA-C [address] [place] [address] 02/06/2025 9:30 AM EDT Office Visit Cardiology, [facility] [address] [place] [address] Poncho Robledo, DO [address] [facility] [place] [address] Scheduled Procedures Name Priority Associated Diagnoses Date/Ti me CORONARY ARTERY BYPASS GRAFT USING ARTERY 1 GRAFT Coronary artery disease involving telida coronary artery of telida heart with unstable angina pectoris (HCC) 07/08/2024 7:00 AM EST CORONARY ARTERY BYPASS GRAFT ARTERIAL AND VENOUS 2 GRAFTS Coronary artery disease involving telida coronary artery of telida heart with unstable angina pectoris (HCC) 07/08/2024 7:00 AM EST ENDOSCOPY VIDEO ASSISTED HARVEST VEIN Coronary artery disease involving telida coronary artery of telida heart with unstable angina pectoris (HCC) 07/08/2024 [...] this encounter Medical Devices Implanted Type Area Real Estate Transaction Coordinator Device Identifier Shelf Expiration Date Model / Serial / Lot Lead Kit Trial [id number] 50cm - [id number] - [id number] Implanted:Qty: 1 on 05/08/2024 by Maged Monreal DO at OR [facility] Left: Back [employer]ENT[employer] : PAIN MGMT 03/18/2026 [id number] / [id number] / Lead Kit Trial [id number] 50cm - [id number] - [id number] Implanted:Qty: 1 on 05/08/2024 by Maged Monreal DO at OR [facility] Right: Back [employer] [employer] : PAIN MGMT 03/18/2026 [id number] 50E0 / [id number] / documented as of this encounter Care Teams Identity Management Developer Relationship Specialty Start Date End Date Leon Galvan DO [address] [place] [address] PCP - General Internal Medicine 12/28/23 documented as of this encounter
--- OUTSIDE RECORDS SUMMARY | 2024-08-06 22:40 | External Medical Summary ---
Author Name Unknown Address Unknown Organization K1G:[facility] - [address] [place] [id number] Laboratory Report Ordering Provider Test Date Status LESTER RAM 07/04/2024 09:16:20 Final Observation Date Value Abnormality Reference (Units ) Status TSH 07/04/2024 09:16:20 4.79 Above high normal 0. 27-4.20 (uIU/mL) Final Performing Location [facility] - [facility] Demetris saul [facility] [address]
--- OUTSIDE RECORDS SUMMARY | 2024-08-06 22:40 | External Medical Summary ---
Author Name Unknown Address Unknown Organization K01:[facility] - [address] [place] [address] Laboratory Report Ordering Provider Test Date Status LESTER RAM 07/04/2024 09:21:23 Final Observation Date Value Abnormality Reference (Units ) Status ABO 07/04/2024 09:21:23 O Final RH 07/04/2024 09:21:23 Negative Final Performing Location [facility] - [address] [place] [address]
--- OUTSIDE RECORDS SUMMARY | 2024-08-06 22:40 | External Medical Summary ---
Author Name Unknown Address Unknown Organization K1G:[facility] - [address] [facility] [address] Laboratory Report Ordering Provider Test Date Status LESTER RAM 07/04/2024 09:16:20 Final Observation Date Value Abnormality Reference (Units ) Status SYNC LEUKOCYTES IN BLOOD BY AUTOMATED COUNT 07/04/2024 09:16:20 6.24 4.00-10.80 (K/uL) Final Segs 07/04/2024 09:16:20 60.8 40.0-75.0 (%) Final Lymphs % 07/04/2024 09:16:20 30.0 18.0-42.0 (%) Final Monos 07/04/2024 09:16:20 7.1 1.0-11.0 (%) Final Eosinophils 07/04/2024 09:16:20 1.9 0.0-6.0 (%) Final Basos 07/04/2024 09:16:20 0.2 0.0-2.0 (%) Final Absolute Segs 07/04/2024 09:16:20 3.80 1.80-7.70 (K/uL) Final Lymphs, absolute 07/04/2024 09:16:20 1.87 1.00-4.80 (K/ul) Final Monos, Abs 07/04/2024 09:16:20 0.44 0.00-1.10 (K/uL) Final Eos, Abs 07/04/2024 09:16:20 0.12 0.00-0.70 (K/uL) Final Basos, Abs 07/04/2024 09:16:20 0.01 0.00-0.20 (K/uL) Final Performing Location [facility] [address] [facility] [address]
--- OUTSIDE RECORDS SUMMARY | 2024-08-06 22:40 | External Medical Summary | Summary of Care ---
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 100 Tablet 3 11/21/2023 10:41 AM EDT 3 Active Ezetimibe 10 MG Oral Tablet (Zetia)Indicatio ns:Dyslipidemia, goal LDL below 70 TAKE ONE TABLET BY MOUTH DAILY 100 Tablet 3 11/21/2023 10:41 AM EDT 3 Active Nitroglycerin 0.4 MG Sublingual Tablet Sublingual (Nitrostat)Indic ations:Coronary artery disease of [place] artery of [place] heart with stable angina pectoris (HCC) Place [...] bedtime. Starting 07/05/24. 3 mL 4 Active Hospital, Clinic, or Other Facility Administered Medication Ordered Dose Route Frequency Start Date End Date Status vitamin b-12 (Cyanocobalamin) inj 1,000 mcgIndications:Vitamin B 12 deficiency 1000 mcg IM [id number] 08/17/2023 07/18/2024 Active documented as of this encounter (statuses as of 07/04/2024) Active Problems Problem Noted Date Diagnosed Date Coronary artery disease invo lving [place] coronary artery of [place] heart with unstable angina pectoris 07/03/2024 Vitamin [...] autonomic neuropathy 08/17/2023 09/17/2023 Atherosclerosis of [place] co ronary artery without angina pectoris 08/17/2023 [...] 07/08/2024 7:00 AM EST Hospital Encounter OR C, OPERATING ROOM [facility] [address] [place] [phone] Jayden Galvan MD [address] [place] [address] 07/08/2024 7:00 AM EST Anesthesia Event OR C, OPERATING ROOM [facility], [facility] [address] [place] [phone] Janeen Jordan RN 07/08/2024 7:00 AM EST - 07/08/2024 12:15 PM EST Surgery OR [facility], OPERATING ROOM [facility], [facility] [address] [place] [phone] Jayden Galvan MD [address] [place] [address] CORONARY ARTERY BYPASS GRAFT USING ARTERY 1 GRAFT 09/17/2024 8:40 AM EDT Office Visit [address] [facility] [place] [address] Leon Galvan, DO [address] [place] [address] 09/18/2024 8:00 AM EDT Office Visit Cardiology, [facility] [address] [facility] [place] [address] Alexandra Mackenzie CRNP 132 [facility] [place] [address] 10/10/2024 3:30 PM EDT Imaging Radiology [facility] [address] [facility] [place] [address] 10/17/2024 9:00 AM EDT Office Visit Urology, [place] [address] [place] [address] Johnathon Kent PA-C [address] [place] [address] 02/06/2025 9:30 AM EDT Office Visit Cardiology, [facility] [address] [facility] [place] [address] Poncho Robledo, DO [address] [facility] [place] [address] Scheduled Procedures Name Priority Associated Diagnoses Date/Ti ok CORONARY ARTERY BYPASS GRAFT USING ARTERY 1 GRAFT Coronary artery disease involving [place] coronary artery of [place] heart with unstable angina pectoris ([facility]) 07/08/2024 7:00 AM EST CORONARY ARTERY BYPASS GRAFT ARTERIAL AND VENOUS 2 GRAFTS Coronary artery disease involving [place] coronary artery of [place] heart with unstable angina pectoris ([facility]) 07/08/2024 7:00 AM EST ENDOSCOPY VIDEO ASSISTED HARVEST VEIN Coronary artery disease involving [place] coronary artery of [place] heart with unstable angina pectoris (HCC) 07/08/2024 [...] this encounter Medical Devices Implanted Type Area Office Nurse Practitioner Device Identifier Shelf Expiration Date Model / Serial / Lot Lead Kit Trial [id number] 50cm - [id number] - [id number] Implanted:Qty: 1 on 05/08/2024 by Maged Monreal DO at OR [facility] Left: Back [employer] : PAIN MGMT 03/18/2026 [id number] 50E0 / [id number] / Lead Kit Trial [id number] 50cm - [id number] - [id number] Implanted:Qty: 1 on 05/08/2024 by Maged Monreal DO at OR [facility] Right: Back [employer] : PAIN MGMT 03/18/2026 [id number] 50E0 / [id number] / documented as of this encounter Procedures Procedure Name Priority Date/Time Associated Diagnosis Comments XR CHEST 2 VIEWS Routine 07/03/2024 11:4 7 AM EST Coronary artery disease involving [place] coronary artery of [place] heart with unstable angina pectoris (HCC) documented in this encounter Results * XR CHEST 2 VIEWS (07/03/2024 11:47 AM EST) Anatomical Region Laterality Modality Chest Computed Radiogr aphy 07/03/2024 2:21 PM EST Impressions 07/03/2024 2:18 PM EST IMPRESSION No evidence of acute cardiopulmonary disease. Narrative 07/03/2024 2:18 PM EST EXAM XR CHEST 2 VIEWS-07/03/2024 11:47 am HISTORY Preoperative COMPARISON Chest radiograph 06/17/2024. TECHNIQUE PA and lateral views of the chest are examined. FINDINGS The lungs are clear. There is no pleural effusion. The pulmonary vasculature and cardiomediastinal silhouette are within normal limits. No acute osseous finding. Procedure Note Cameron Grigsby MD - 07/03/2024 EXAM XR CHEST 2 VIEWS-07/03/2024 11:47 am HISTORY Preoperative COMPARISON Chest radiograph 06/17/2024. TECHNIQUE PA and lateral views of the chest are examined. FINDINGS The lungs are clear. There is no pleural effusion. The pulmonaryvasculature and cardiomediastinal silhouette are within normal limits. Noacute osseous finding. IMPRESSION IMPRESSION No evidence of acute cardiopulmonary disease. us Jayden Mejias MD RADIOLOGY ([facility]) Fin al Result documented in this encounter Visit Diagnoses Diagnosis Coronary artery disease involving [place] coronary artery of [place] heart with unstable angina pectoris (HCC)- Primary Coronary artery disease involving [place] coronary artery of [place] heart with unstable angina pectoris (HCC) Coronary artery disease involving [place] coronary artery of [place] heart with unstable angina pectoris (HCC) Coronary artery disease involving [place] coronary artery of [place] heart with unstable angina pectoris (HCC) documented in this encounter Care Teams Supervisor Beater Room Relationship Specialty Start Date End Date Leon Galvan DO [address] [place] [address] PCP - General Internal Medicine 12/28/23 documented as of this encounter
--- OUTSIDE RECORDS SUMMARY | 2024-08-06 22:40 | External Medical Summary ---
Author Name Unknown Address Unknown Organization K01:[facility]ORY [facility] - [address] [place] [address] Laboratory Report Ordering Provider Test Date Status LESTER RAM 07/04/2024 09:16:20 Final Observation Date Value Abnormality Reference (Units ) Status Ferritin 07/04/2024 09:16:20 405 Above high normal 30 -400 (ng/mL) Final Performing Location [facility] - [address] [place] [address]
--- OUTSIDE RECORDS SUMMARY | 2024-08-06 22:40 | External Medical Summary | Summary of Care ---
Author Name Unknown Organization [facility] Address [address] [place] [address] Phone [phone] Care Team Providers Care Atlassian Administrator Name Role Phone Leon Galvan DO Primary Care Provider [phone] Reason for Visit * Reason Onset Date Comments Referral 07/03/2024 Dosage Adjustment Via Phone (anticoag Clinic) Encounter Details Date Type Department Care Team (Late st Contact Info) Description 07/03/2024 Telephone Centralized Clinical Pharmacy Services, [facility] [address] [place] [address] [place] [address] College, Pharmacist [address] [place] [phone] Referral; Dosage Adjustment Via Phone (ant... 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 100 Tablet 3 11/21/2023 10:41 AM EDT 3 Active Ezetimibe 10 MG Oral Tablet (Zetia)Indicatio ns:Dyslipidemia, goal LDL below 70 TAKE ONE TABLET BY MOUTH DAILY 100 Tablet 3 11/21/2023 10:41 AM EDT 3 Active Nitroglycerin 0.4 MG Sublingual Tablet Sublingual (Nitrostat)Indic ations:Coronary artery disease of [place] artery of [place] heart with stable angina pectoris (HCC) Place [...] mcgIndications:Vitamin B 12 deficiency 1000 mcg IM [id number] 08/17/2023 07/18/2024 Active documented as of this encounter (statuses as of 07/03/2024) Active Problems Problem Noted Date Diagnosed Date Coronary artery disease invo lving [place] coronary artery of [place] heart with unstable angina pectoris 07/03/2024 Vitamin [...] failure, systolic, due to CAD 09/08/2013 Old SD (myocardial infarction) 09/08/2013 Dyslipidemia, goal LDL below 70 06/15/2009 Overview (06/15/2009): Per Lipid Taxonomy. Esophageal reflux 12/03/2007 BPH without obstruction/lower urinary tract symp toms 08/03/2006 Tobacco use disorder 06/03/2002 documented as of this encounter (statuses as of 07/03/2024) Resolved Problems Problem Noted Date Diagnosed Date Resolved Date Type 2 diabetes mellitus wit h autonomic neuropathy 08/17/2023 09/17/2023 Atherosclerosis of [place] co ronary artery without angina pectoris 08/17/2023 [...] as of this encounter (statuses as of 07/03/2024) Immunizations Name Administration Dates Next Due COVID-19 [...] Miscellaneous Notes * Telephone Encounter - Patsy Hansen, [facility] - 07/03/2024 1:39 PM EST Referral received and reviewed. Patient Phone Numbers Patient referred to [facility] for anticoagulation management. Anticoagulant: Eliquis to Lovenox bridge for procedure Indication: Patient with a new LV thrombus. Scheduled for CABG on 07/[address] Galvan. He is requesting Eliquis be stopped on 07/04 with a Lovenox bridge prior to surgery, last dose of Lovenox 12/20 AM. 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 TTE 06/30/24 shows a reduced EF 35% which is down from 1- year prior of 45% and a small apical laminar thrombus for which he was started on Eliquis with last dose today. He is also on plavix for his CVA history. Duration: 3 days pre-op Baseline labs Serum creatinine: 1.2 mg/dL 06/16/24 1136 Estimated creatinine clearance: 50.8 mL/min Patient advised to stop Eliquis 07/04/24 after evening dose. Actual Body Weight 68.8 kg Frontier Body Weight 65.9 kg Adjusted Body Weight n/a Serum creatinine: 1.2 mg/dL 06/16/24 1136 Estimated creatinine clearance: 50.8 mL/min Hemoglobin Results: Recent Labs Units 06/17/24 1054 02/15/24 1343 04/27/23 1457 HGB g/dL 13.7* 13.9* 14.0 Platelets: Recent Labs Units 06/17/24 1054 02/15/24 1343 04/27/23 1457 PLT K/uL 183 174 193 Lovenox Dose: 60 mg Q12 hours from 07/05 - 07/07 (AM only). Detailed instructions sent to patient via MyG and confirmed via phone. Electronically sent Lovenox to [facility] [address] [place] [address], Sent bridging instructions (letter) to [facility], and Communicated to patient that Lovenox/ bridge instructions (letter) were sent to his MyG. I reviewed full instructions over the phone with patient and he reports he will be hospitalized 4-5 days after surgery. Patsy Brown [facility] Clinical Pharmacist Medication Therapy Disease Management 07/03/2024, 1:57 PM * Telephone Encounter - Ke Alonoz CPhT - 07/03/2024 10:37 AM EST Procedure: ANTI-COAGULATION REFERRAL OP Status: Needs Scheduling Requested appt date: Authorizing: Jayden Mejias MD in [facility] [place] Referral: [id number] (Authorized) Priority: Within 3 days (urgent) Assign to: Diagnosis: Coronary artery disease involving [place] coronary artery of [place] heart with un... Comments Anticoagulation referral for management of: Enoxaparin Indication for Enoxaparin referral: Patient with a new LV thrombus. Scheduled for CABG on 07/[address] Galvan. He is requesting Eliquis be stopped on 07/04 with a Lovenox bridge prior to surgery, last dose of Lovenox 1220 AM. 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 TTE 06/30/24 shows a reduced EF 35% which is down from 1- year prior of 45% and a small apical laminar thrombus for which he was started on Eliquis with last dose today. He is also on plavix for his CVA history. Minimum frequency patient should be seen in person for medication management: as appropriate per clinical condition and patient status By my signature, I understand that my patient Henri Vigil will have his medication therapy managed by the [facility] Medication Therapy Disease Management [facility] ([facility]) per established policies, procedures, and protocols. I also certify that this referral may serve as an initiation of service for the management of drug therapy in the above noted patient. [facility] providers will be responsible for scheduling patient visits, obtaining appropriate laboratory studies, and adjusting medication management therapy per patient's need, in addition to those roles spelled out in the clinic policy, procedures, and drug management protocols. I understand that the service provided by the [facility] Clinic is voluntary and have informed patient that they can refuse the service at their discretion. I am aware that the [facility] will provide me with a copy of the patient encounter via my IMN [employer]. I authorize the [facility] to carry out these activities on my behalf. I consider this program to be a necessary part of the patient's medical care. Mulu Davis RN Order Specific Questions Referral Priority Within 3 days (urgent) Where should this appointment be scheduled? Jerardo documented in this encounter Plan of Treatment Upcoming Encounters Date Type Department Care Team (Latest Contact Info) Description 07/04/2024 9:00 AM EST Pre-Admission Testing Pre Surgery, [facility] [address] [place] [address] Gjsh, [facility] [address] [place] [address] 07/08/2024 7:00 AM EST Hospital Encounter [place] [facility]PER[place] [address] [place] [address] Jayden Galvan MD [address] [place], [place] [id number] 07/08/2024 7:00 AM EST - 07/08/2024 12:15 PM EST Surgery [place] [facility] [facility]PER[facility] ROOM [facility] [address] [place] [address] Jayden Galvan MD [address] [place] [address] CORONARY ARTERY BYPASS GRAFT USING ARTERY 1 GRAFT 07/08/2024 2:00 PM EST Office Visit Cardiology, [facility] [address] [place] [address] Poncho Robledo, DO 132 [place] [address] 09/17/2024 8:40 AM EDT Office Visit Family Practice [address] [place] [address], [place] 293 [place] [address] Leon Galvan, DO [address] [place] [address] 09/18/2024 8:00 AM EDT Office Visit Cardiology, [facility] [address] [place] [address] Alexandra Mackenzie CRNP [address] [place] [address] 10/10/2024 3:30 PM EDT Imaging Radiology [facility] [address] [place] [address] 10/17/2024 9:00 AM EDT Office Visit Urology, [place] [address] [place] [address] Johnathon Kent PA-C [address] [place] [address] Scheduled Procedures Name Priority Associated Diagnoses Date/Ti me CORONARY ARTERY BYPASS GRAFT USING ARTERY 1 GRAFT Coronary artery disease involving [place] coronary artery of [place] heart with unstable angina pectoris ([facility]) 07/08/2024 7:00 AM EST CORONARY ARTERY BYPASS GRAFT ARTERIAL AND VENOUS 2 GRAFTS Coronary artery disease involving [place] coronary artery of [place] heart with unstable angina pectoris ([facility]) 07/08/2024 7:00 AM EST ENDOSCOPY VIDEO ASSISTED HARVEST VEIN Coronary artery disease involving [place] coronary artery of [place] heart with unstable angina pectoris ([facility]) 07/08/2024 7:00 AM EST Health [...] YEAR FOR COPD 05/08/2025 05/08/2024 GFR 06/16/2025 06/16/2024, 080 03/2024, 09/21/2023, Additional history exists HbA1c 06/16/2025 06/16/2024, 080 03/2024, 09/17/2023, Additional history exists Albumin/Creatinine Ratio [...] this encounter Medical Devices Implanted Type Area Latex Caster Device Identifier Shelf Expiration Date Model / Serial / Lot Lead Kit Trial [id number] 50cm - [id number] - [id number] Implanted:Qty: 1 on 05/08/2024 by Maged Monreal DO at OR [facility] Left: Back [employer] [facility] : PAIN MGMT 03/18/2026 [id number] 50E0 / [id number] / Lead Kit Trial [id number] 50cm - [id number] - [id number] Implanted:Qty: 1 on 05/08/2024 by Maged Monreal DO at OR [facility] Right: Back [employer] : PAIN MGMT 03/18/2026 [id number] 50E0 / [id number] / documented as of this encounter Visit Diagnoses Diagnosis Coronary artery disease involving [place] coronary artery of [place] heart with unstable angina pectoris (HCC)- Primary Coronary artery disease involving [place] coronary artery of nightm[place] heart with unstable angina pectoris (HCC) Anticoagulation management encounter- Primary Encounter for therapeutic drug monitoring Coronary artery disease involving [place] coronary artery of [place] heart with unstable angina pectoris (HCC) Cerebrovascular disease, arteriosclerotic, post-stroke Cerebral atherosclerosis LV (left ventricular) mural thrombus Acute myocardial infarction, unspecified site, episode of care unspecified Coronary artery disease involving [place] coronary artery of [place] heart with unstable angina pectoris (HCC) documented in this encounter Care Teams Atlassian Administrator Relationship Specialty Start Date End Date Leon Galvan DO [address] [place] [address] PCP - General Internal Medicine 12/28/23 documented as of this encounter
--- OUTSIDE RECORDS SUMMARY | 2024-08-06 22:40 | External Medical Summary | Summary of Care ---
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 [facility] Comments Anticoagulation referral for management of: Enoxaparin [...] have his medication therapy managed by the [facility] Med[facility] ([facility]) per established policies, procedures, and protocols. I also certify that this referral may serve as an initiation of service for the management of drug therapy in the above noted patient. [facility] providers will be responsible for scheduling patient visits, obtaining appropriate laboratory studies, and adjusting medication management therapy per patient's need, in addition to those roles spelled out in the clinic policy, procedures, and drug management protocols. I understand that the service provided by the [facility] is voluntary and have informed patient that they can refuse the service at their discretion. I am aware that the [facility] will provide me with a copy of the patient encounter via my [employer]. I authorize the [facility] to carry out these activities on my behalf. I consider this program to be a necessary part of the patient's medical care. 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 [facility] Reason for Visit * Reason Comments NEW PATIENT * Evaluate & Treat - Unlimited Visits (Within 10 days (routine)) - Authorized Specialty Diagnoses / Procedures Referred By Contact Referred To Contact Cardiovascular Surgery / Cardiothoracic Surgery Diagnoses Chronic coronary artery disease Heart failure, systolic, due to CAD (HCC) Dyslipidemia, goal LDL below 70 Poncho Robledo DO [address] [place] [address] Phone: tel: fax: Referral ID Status Reason Start Date Expiration Date Visits Requested Visits Authorized [id number] Authorized Specialty Services Required 4 [phone] Encounter Details Date Type Department Care Team (Late st Contact Info) Description 07/03/2024 8:30 AM EST Office Visit Cardiothoracic Surg [facility] [address] [place] [address] Jayden Mejias MD [address] [place] [address] 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 100 Tablet 3 11/21/2023 10:41 AM EDT 3 Active Ezetimibe 10 MG Oral Tablet (Zetia)Indicatio ns:Dyslipidemia, goal LDL below 70 TAKE ONE TABLET BY MOUTH DAILY 100 Tablet 3 11/21/2023 10:41 AM EDT 3 Active Nitroglycerin 0.4 MG Sublingual Tablet Sublingual (Nitrostat)Indic ations:Coronary artery disease of minto artery of minto heart with stable angina pectoris (HCC) Place [...] mcgIndications:Vitamin B 12 deficiency 1000 mcg IM [id number] 08/17/2023 07/18/2024 Active documented as of this encounter (statuses as of 07/03/2024) Active Problems Problem Noted Date Diagnosed Date Coronary artery disease invo lving minto coronary artery of minto heart with unstable angina pectoris 07/03/2024 Vitamin [...] failure, systolic, due to CAD 09/08/2013 Old LA (myocardial infarction) 09/08/2013 Dyslipidemia, goal LDL below 70 06/15/2009 Overview (06/15/2009): Per Lipid Taxonomy. Esophageal reflux 12/03/2007 BPH without obstruction/lower urinary tract symp toms 08/03/2006 Tobacco use disorder 06/03/2002 documented as of this encounter (statuses as of 07/03/2024) Resolved Problems Problem Noted Date Diagnosed Date Resolved Date Type 2 diabetes mellitus wit h autonomic neuropathy 08/17/2023 09/17/2023 Atherosclerosis of minto co ronary artery without angina pectoris 08/17/2023 [...] Sign Reading Time Taken Comments Blood Pressure 160/100 07/03/2024 8:14 AM EST Pulse 68 07/03/2024 8:11 AM EST Temperature - - Respiratory Rate - - Oxygen Saturation 97% 07/03/2024 8:11 AM EST Inhaled Oxygen Concentration - - Weight 68.8 kg (151 lb 9.6 oz) 07/03/2024 8:11 A M EST Height 169.5 cm (5' 6.75") 07/03/2024 8:11 AM ES T Body Mass Index 23.92 07/03/2024 8:11 AM EST documented in this encounter Progress Notes * Mulu Davis RN - 07/03/2024 10:01 AM EST Patient chose a surgical date of 07/08/2024. Patient was given preoperative Cardiac Surgery booklet. Chlorhexidine wash provided and instructions given to include if staph screen is positive bactroban will be prescribed and patient will need towash with chlorhexidine 5 days prior to surgery . All questions answered at this time. Patient was instructed to avoid the following medications and foods one week prior to surgery to decrease risk for bleeding: Multivitamins, Vit E, Herbal teas and supplements, olive oil and garlic, [place] 3s and NSAIDs. Patient instructed to stop Plavix now and stop Eliquis and lisinopril 3 days prior to surgery per Dr. Galvan. He will need a Lovenox bridge for LV thrombus, ACC referral placed. He can continue aspirin for coronary artery disease. Patient currently enrolled in R with [facility]. This will be placed on hold for 1-2 months and patient will continue with [facility] post-op. Mulu Davis RN 07/03/2024 10:01 AM * Jayden Mejias MD - 07/03/2024 9:04 AM EST CARDIAC SURGERY I have seen and examined the patient with Gil. I am seeing Henri Vigil as an evaluation for CAD, referred by Dr. Robledo. Henri has symptoms of chest pain, comes on at times with rest. This has occurred for a few weeks. Hewas found to have laminar thrombus on TTE and was started on eliquis. Comorbidities include stroke in 2016 (mild residual left sided weakness), prior PCI, dysphagia chronic, COPD, tobacco abuse (2 cigarettes per day). PE demonstrates no appreciable murmur, clear lungs. STS risk is 2% for mortality. 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 We discussed the natural history, risk factors, and treatment options for CAD, including medical therapy, surgical revascularization, and coronary stenting. The risk of major coronary events or with medical therapy alone is estimated around 10-30% in the next several years. We discussed the benefits of surgery which would be lower reintervention rate when compared to PCI, but higher upfront risk ofmajor complications (about 10% major complication rate) and longer recovery. PCI is associated withlower upfront risk, quicker recovery, and higher reintervention rate. There may be a small survivalbenefit with surgery. The patient prefers surgical revascularization. We discussed that he will be at higher than averagerisk for bleeding, stroke, due to recent LV thrombus, but delaying surgery would have a significantrisk due to the unstable nature of hi symptoms. We discussed the risks, benefits, and alternatives to surgery. I discussed that the risks of heart surgery specifically include, but aren't limited to: Major life threatening complications like: - bleeding (which could require blood transfusion, additional incisions, or additional surgery), - infection of the sternum requiring antibiotics or repeated surgeries - stroke, - heart damage or heart attack - lung problems like pneumonia, pulmonary embolism, need for prolonged mechanical ventilation - kidney failure which could require dialysis - if any of these happen, you can during the procedure or in the weeks following Minor complications like: - minor infections would could require antibiotics or wound care - fluid build up around the heart or lungs requiring drains or additional surgery - abnormal heart rhythms which could require additional medicines, or even a pacemaker - bone healing problems requiring reoperation - nerve damage like injury to the phrenic nerve leading to dyspnea, or the nerves going to the hands or legs We discussed that he patient is at higher than average risk for the following complications, due tothe specific operation or the patient's underlying conditions: see above We discussed the expected pain and estimated recovery time for the operation. I pointed out the effect that the various complications can have on the recovery and quoted a major complication rate of 10%, in accordance with the online STS risk calculator. All questions were answered and the patient consents to the procedure. The following family members were present for the discussion: his . In terms of timing, we recommend surgery next week due to unstable symptoms. I am away next week, so it will be with Dr. Galvan and the patient is fine with that plan. Jayden Mejias M.D. Associate, Thoracic [place] [address] Office [phone] documented in this encounter Plan of Treatment Upcoming Encounters Date Type Department Care Team (Latest Contact Info) Description 07/04/2024 9:00 AM EST Pre-Admission Testing Pre Surgery, [facility] [address] [place] [address] [facility] [address] [place] [address] 07/08/2024 7:00 AM EST Hospital Encounter [place] [facility] [address] [place] [phone] Jayden Galvan MD [address] [place] [address] 07/08/2024 7:00 AM EST - 07/08/2024 12:15 PM EST Surgery [place] [facility] [address] [place] [facility] [phone] Jayden Galvan MD [address] [place] [address] CORONARY ARTERY BYPASS GRAFT USING ARTERY 1 GRAFT 07/08/2024 2:00 PM EST Office Visit Cardiology, [facility] [address] [place] [address] Poncho Robledo, DO [address] [facility] [place] [address] 09/17/2024 8:40 AM EDT Office Visit Family Practice [address] [place] [address] [address] [place] [address] Leon Galvan, DO [address] [place] [address] 09/18/2024 8:00 AM EDT Office Visit Cardiology, [facility] [address] [place] [address] Alexandra Mackenzie CRNP [address] [place] [address] 10/10/2024 3:30 PM EDT Imaging Radiology [facility] [address] [place] [address] 10/17/2024 9:00 AM EDT Office Visit Urology, [place] [address] [place] [address] Johnathon Kent PA-C [address] [place] [address] Scheduled Orders Name Type Priority Associated Diagnoses Orde r Schedule CBC WITH WBC DIFFERENTIAL AND ANEMIA REFLEX WORKUP Lab Routine 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) Expected: 07/03/2024, Expires: 07/03/2025 APTT Lab Routine 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) Expected: 07/03/2024, Expires: 07/03/2025 PT INR Lab Today 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) Expected: 07/03/2024, Expires: 07/03/2025 BASIC METABOLIC PANEL Lab Today 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) Expected: 07/03/2024, Expires: 07/03/2025 URINALYSIS, REFLEX TO MICROSCOPIC Lab Today 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) Expected: 07/03/2024, Expires: 07/03/2025 HEMOGLOBIN A1C Lab Routine 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) Expected: 07/03/2024, Expires: 07/03/2025 HEPATIC FUNCTION PANEL Lab Today 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) Expected: 07/03/2024, Expires: 07/03/2025 IRON SCREEN, INCLUDING TIBC Lab Today 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) Expected: 07/03/2024, Expires: 07/03/2025 PREPARE PACKED RED BLOOD CELLS Blood Bank - Prepare Product Routine 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) Ordered: 07/03/2024 TYPE AND SCREEN Lab Routine 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) Expected: 07/03/2024, Expires: 08/03/2025 ABO/RH Lab Routine 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) Expected: 07/03/2024, Expires: 08/03/2025 TSH Lab Routine 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) Expected: 07/03/2024, Expires: 07/03/2025 FERRITIN Lab Routine 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) Expected: 07/03/2024, Expires: 07/03/2025 RETICULOCYTE PANEL Lab Routine 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) Expected: 07/03/2024, Expires: 07/03/2025 Scheduled Procedures Name Priority Associated Diagnoses Date/Ti me CORONARY ARTERY BYPASS GRAFT USING ARTERY 1 GRAFT 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) 07/08/2024 7:00 AM EST CORONARY ARTERY BYPASS GRAFT ARTERIAL AND VENOUS 2 GRAFTS 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 ([facility]) 07/08/2024 7:00 AM EST ENDOSCOPY VIDEO ASSISTED HARVEST VEIN 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 ([facility]) 07/08/2024 7:00 AM EST Scheduled Referrals Name Type Priority Associated Diagnoses Orde r Schedule BLOOD MANAGEMENT REFERRAL Referral Within 3 days (urgent) 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) Ordered: 07/03/2024 ANTI-COAGULATION REFERRAL OP Referral Within 3 days (urgent) 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 ([facility]) Ordered: 07/03/2024 Health Maintenance Due Date Last Done Comments Cologuard 1995 Sigmoidoscopy 1995 Fecal Occult Blood Test 12/20/2008 12/21/2007 *ADVANCE DIRECTIVE NOT ON FILE 2019 DISCUSS TOBACCO CESSATION (REFER TO SMARTSET #1552) 06/18/2024 06/18/2023, 01/24/2017 Adult Wellness Visit 02/17/2025 02/18/2024, 10/31/2022, 08/17/2021 Depression Screening 02/17/2025 02/18/2024, 01/02/20 24 O2 ASSESSMENT COMPLETED IN PAST YEAR FOR COPD 05/08/2025 05/08/2024 GFR 06/16/2025 06/16/2024, 08/0 03/2024, 09/21/2023, Additional history exists HbA1c 06/16/2025 06/16/2024, 08/0 03/2024, 09/17/2023, Additional history exists Albumin/Creatinine Ratio [...] this encounter Medical Devices Implanted Type Area Video Game Programmer Device Identifier Shelf Expiration Date Model / Serial / Lot Lead Kit Trial [id number] 50cm - [id number] - [id number] Implanted:Qty: 1 on 05/08/2024 by Maged Monreal DO at OR [facility] Left: Back [employer] : PAIN MGMT 03/18/2026 [id number] / [id number] / Lead Kit Trial [id number] 50cm - [id number] - [id number] Implanted:Qty: 1 on 05/08/2024 by Maged Monreal DO at OR [facility] Right: Back [employer] : PAIN MGMT 03/18/2026 [id number] / [id number] / documented as of this encounter Procedures Procedure Name Priority Date/Time Associated Diagnosis Comments STAPH AUREUS PCR Routine 07/03/2024 10:2 5 AM EST 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 us Jayden Mejias MD RADIOLOGY ([facility]) Fin al Result * (ABNORMAL) BLOOD GAS, ARTERIAL (07/03/2024 11:32 AM EST) Temperature 37.0 C 07/03/2024 11:48 AM EST [facility] pH, Arterial 7.398 7.350 - 7.450 units 07/03/2024 11:48 AM EST [facility] pCO2, Arterial 39.1 35.0 - 45.0 mmHg 07/03/2024 11:48 AM EST [facility] pO2, Arterial 85.0 75.0 - 100.0 mmHg 07/03/2024 11:48 AM EST [facility] Base Excess, Arterial -0.5 -2.0 - 2.0 mmol/L 07/03/2024 11:48 AM EST [facility] HGB 13.6(L) 14.0 - 16.8 g/dL 07/03/2024 11:48 AM EST [facility] Oxyhemoglobin, Arterial 94.0 94.0 - 99.0 % total Hgb 07/03/2024 11:48 AM EST [facility] Carboxyhemoglob in, Whole Blood 2.5(H) <=1.5 % total Hgb 07/03/2024 11:48 AM EST [facility] Comment:Smokers: 0-9.0 % Methemoglobin, Whole Blood 0.6 <=1.5 % total Hgb 07/03/2024 11:48 AM EST [facility] Reduced Hemoglobin, Arterial 2.9 0.0 - 5.0 % total Hgb 07/03/2024 11:48 AM EST [facility] O2 Content, Arterial 18.0 15.0 - 24.0 %vol 07/03/2024 11:48 AM EST [facility] FiO2 Not Provided % 07/03/2024 11:48 AM EST [facility] O2 Flow, Arterial Not Provided L/min 07/03/2024 11:48 AM EST [facility] Bicarbonate, Whole Blood 23.6 23.0 - 31.0 mmol/L 07/03/2024 11:48 AM EST [facility] Blood Arterial blood specimen / Unknown Arterial Puncture / Unknown 07/03/2024 11:32 AM EST 07/03/2024 11:44 AM EST us Jayden Mejias MD LAB BLOOD ORDERABLES Final Result [facility] [address] [place] [address] * BASIC SPIROMETRY (07/03/2024 11:20 AM EST) FVC Actual Pre 3.55 L [facility] NGER [facility] FVC Actual Pre %Predict 101 % [facility] FEV1 Actual Pre 1.63 L MABEL ELIEZER BREEZE FEV1 Actual Pre %Predict 61 % [facility] FEV1/FVC Actual Pre 46 % [facility] FEF 25-75% Actual Pre 0.54 L/sec [facility] FEF 25-75% Actual Pre %Predict 25 % [facility] 07/03/2024 11:2 0 AM EST Narrative [facility] - 07/03/2024 11:20 AM EST Obstructive index is reduced. FEV1 is reduced to 61% predicted.Impression Obstructive spirometry. Mild obstructionThis interpretation has been electronically signed: Jesse Monroe 07/03/2024 12:00:36 PM us Jayden Mejias MD MEDICINE Final Resul t ROWAN CONNELLY * VASC VEIN MAP BYPASS GRAFT PREOP [...] saphenous vein with size measurements as noted. Jayden Mejias MD RAD VASCULAR Final Resul t * STAPH AUREUS PCR (07/03/2024 10:25 AM EST) MRSA PCR Result Negative Negative 2:35 PM EST LAB[facility]ATORY [facility] Comment:No Methicillin resis tant Staphylococcus aureus detected by PCR (amplified probe). Staphylococcus aureus PCR Result Negative Negative 07/03/2024 2:35 PM EST [facility]ATORY [facility] Comment:No Staphylococcus au reus detected by PCR (amplified probe). 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) 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
--- OUTSIDE RECORDS SUMMARY | 2024-08-06 22:40 | External Medical Summary | Summary of Care ---
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 100 Tablet 3 11/21/2023 10:41 AM EDT 3 Active Ezetimibe 10 MG Oral Tablet (Zetia)Indicatio ns:Dyslipidemia, goal LDL below 70 TAKE ONE TABLET BY MOUTH DAILY 100 Tablet 3 11/21/2023 10:41 AM EDT 3 Active Nitroglycerin 0.4 MG Sublingual Tablet Sublingual (Nitrostat)Indic ations:Coronary artery disease of ekwok artery of ekwok heart with stable angina pectoris (HCC) Place [...] mcgIndications:Vitamin B 12 deficiency 1000 mcg IM [id number] 08/17/2023 07/18/2024 Active documented as of this encounter (statuses as of 07/04/2024) Active Problems Problem Noted Date Diagnosed Date Coronary artery disease invo lving ekwok coronary artery of ekwok heart with unstable angina pectoris 07/03/2024 Vitamin [...] h autonomic neuropathy 08/17/2023 09/17/2023 Atherosclerosis of ekwok co ronary artery without angina pectoris 08/17/2023 [...] 01/25/2015 Beta-blockers contraindicated 11/23/2008 09/08/2013 Aspirin contraindicated 11/23/2008/09/2013 COPD, mild 05/24/2005 12/18/2018 ADVANCE DIRECTIVE INFORMATION [...] EST Hospital Encounter OR [facility], OPERATING ROOM [facility] [address] [place] [phone] Jayden Galvan MD [address] [address] 07/08/2024 7:00 AM EST Anesthesia Event OR C, OPERATING ROOM [facility] [address] [phone] Janeen Jordan RN 07/08/2024 7:00 AM EST - 07/08/2024 12:15 PM EST Surgery OR GM, OPERATING ROOM [facility] [address] [place] [phone] Jayden Galvan MD [address] [place] [address] CORONARY ARTERY BYPASS GRAFT USING ARTERY 1 GRAFT 09/17/2024 8:40 AM EDT Office Visit [address] [facility] [place] [address] Leon Galvan, DO [address] [place] [address] 09/18/2024 8:00 AM EDT Office Visit [facility] [address] [facility] [address] 10/10/2024 3:30 PM EDT Imaging Radiology [facility] 132 [facility] [place] [address] 10/17/2024 9:00 AM EDT Office Visit Urology, [facility] [address] [place] [address] Johnathon Kent PA-C [address] [place] [address] 02/06/2025 9:30 AM EDT Office Visit Cardiology, [facility] 132 [facility] [place] [address] Poncho Robledo, DO 132 [facility] [place] [address] Pending Results Name Type Priority Associated Diagnoses Date /Time CBC WITH WBC DIFFERENTIAL AND ANEMIA REFLEX WORKUP Lab Routine 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) 07/04/2024 9:16 AM EST HEMOGLOBIN A1C Lab Routine 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 ([facility]) 07/04/2024 9:16 AM EST IRON SCREEN, INCLUDING TIBC Lab Today 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 ([facility]) 07/04/2024 9:16 AM EST TYPE AND SCREEN Lab Routine 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 ([facility]) 07/04/2024 9:16 AM EST TSH Lab Routine 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 ([facility]) 07/04/2024 9:16 AM EST FERRITIN Lab Routine 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 ([facility]) 07/04/2024 9:16 AM EST RETICULOCYTE PANEL Lab Routine 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 ([facility]) 07/04/2024 9:16 AM EST ANEMIA REFLEX CHEMISTRY HOLD Lab Routine 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 ([facility]) 07/04/2024 9:16 AM EST ABO/RH Lab Routine 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 ([facility]) 07/04/2024 9:21 AM EST URINALYSIS, REFLEX TO MICROSCOPIC Lab Today 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 ([facility]) 07/04/2024 10:20 AM EST Scheduled Procedures Name Priority Associated Diagnoses Date/Ti me CORONARY ARTERY BYPASS GRAFT USING ARTERY 1 GRAFT 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 ([facility]) 07/08/2024 7:00 AM EST CORONARY ARTERY BYPASS GRAFT ARTERIAL AND VENOUS 2 GRAFTS 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 ([facility]) 07/08/2024 7:00 AM EST ENDOSCOPY VIDEO ASSISTED HARVEST VEIN 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 ([facility]) 07/08/2024 7:00 AM EST Health Maintenance Due Date Last Done Comments Cologuard 1995 Sigmoidoscopy 1995 Fecal Occult Blood Test 12/20/2008 12/21/2007 *ADVANCE DIRECTIVE NOT ON FILE 2019 DISCUSS TOBACCO CESSATION (REFER TO SMARTSET #9781) 06/18/2024 06/18/2023, 01/24/2017 Adult Wellness Visit 02/17/2025 [...] this encounter Medical Devices Implanted Type Area Property Consultant Device Identifier Shelf Expiration Date Model / Serial / Lot Lead Kit Trial [id number] 50cm - [id number] - [id number] Implanted:Qty: 1 on 05/08/2024 by Maged Monreal DO at OR [facility] [address] Left: Back [employer] : PAIN MGMT 03/18/2026 [id number] / [id number] / Lead Kit Trial [id number] 50cm - [id number] - [id number] Implanted:Qty: 1 on 05/08/2024 by Maged Monreal DO at OR [facility] [address] Right: Back [employer] : PAIN MGMT 03/18/2026 [id number] / [id number] / documented as of this encounter Procedures Procedure Name Priority Date/Time Associated Diagnosis Comments ANEMIA CBC Routine 07/04/2024 9:16 AM EST 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) DIFFERENTIAL, AUTOMATED Routine 07/04/2024 9:16 AM EST 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) HEPATIC FUNCTION PANEL Today 07/04/2024 9:16 AM EST 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) BASIC METABOLIC PANEL Today 07/04/2024 9:16 AM EST 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) PT INR Today 07/04/2024 9:16 AM EST 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) APTT Routine 07/04/2024 9:16 AM EST 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) documented in this encounter Results * DIFFERENTIAL, AUTOMATED (07/04/2024 9:16 AM EST) WBC 6.24 4.00 - 10.80 K/uL 07/04/2024 10:01 AM EST LABORATORY [facility] Neutrophils % 60.8 40.0 - 75.0 % 07/04/2024 10:01 AM EST LABORATORY [facility] Lymphocytes % 30.0 18.0 - 42.0 % 07/04/2024 10:01 AM EST LABORATORY [facility] Monocytes % 7.1 1.0 - 11.0 % 07/04/2024 10:01 AM EST LABORATORY [facility] Eosinophils % 1.9 0.0 - 6.0 % 07/04/2024 10:01 AM EST LABORATORY [facility] Basophils % 0.2 0.0 - 2.0 % 07/04/2024 10:01 AM EST LABORATORY [facility] Absolute Neutrophils 3.80 1.80 - 7.70 K/uL 07/04/2024 10:01 AM EST LABORATORY [facility] Absolute Lymphocytes 1.87 1.00 - 4.80 K/ul 07/04/2024 10:01 AM EST LABORATORY [facility] Absolute Monocytes 0.44 0.00 - 1.10 K/uL 07/04/2024 10:01 AM EST LABORATORY [facility] Absolute Eosinophils 0.12 0.00 - 0.70 K/uL 07/04/2024 10:01 AM EST LABORATORY [facility] Absolute Basophils 0.01 0.00 - 0.20 K/uL 07/04/2024 10:01 AM EST LABORATORY [facility] Blood Venous blood specimen / Unknown Venipuncture / Unknown 07/04/2024 9:16 AM EST 07/04/2024 9:52 AM EST us Jayden Mejias MD LAB BLOOD ORDERABLES Final Result LABORATORY [place] [address] [place] [address] * ANEMIA CBC (07/04/2024 9:16 AM EST) WBC 6.24 4.00 - 10.80 K/uL 07/04/2024 10:01 AM EST LABORATORY [facility] RBC 4.77 4.50 - 5.25 M/uL 07/04/2024 10:01 AM EST LABORATORY [facility] HGB 15.1 14.0 - 16.8 g/dL 07/04/2024 10:01 AM EST LABORATORY [facility] Comment: Anemia reflex testing triggers on a HGB < 12.0 for Females and HGB < 13.0 for Males in accordance with the WHO Anemia Guidelines Anemia reflex testing triggers on a HGB < 12.0 for Females and HGB < 13.0 for Males in accordance with the WHO Anemia Guidelines HCT 44.1 40.0 - 48.4 % 07/04/2024 10:01 AM EST LABORATORY [facility] MCV 92.5 82.0 - 99.5 fL 07/04/2024 10:01 AM EST LABORATORY [facility] MCH 31.7 27.0 - 34.0 pg 07/04/2024 10:01 AM EST LABORATORY [facility] MCHC 34.2 32.0 - 36.0 g/dL 07/04/2024 10:01 AM EST LABORATORY [facility] RDW 12.6 11.5 - 15.5 % 07/04/2024 10:01 AM EST LABORATORY [facility] PLT 207 140 - 400 K/uL 07/04/2024 10:01 AM EST LABORATORY [facility] MPV 11.4 6.6 - 11.1 fL 07/04/2024 10:01 AM EST LABORATORY [facility] Blood Venous blood specimen / Unknown Venipuncture / Unknown 07/04/2024 9:16 AM EST 07/04/2024 9:52 AM EST Jayden Mejias MD LAB BLOOD ORDERABLES Final Result Performing Organization Address City/State/[facility] Co de Phone Number LABORATORY [address] [address] * HEPATIC FUNCTION PANEL (07/04/2024 9:16 AM EST) Pathologist [facility] Albumin 4.4 3.8 - 5.0 g/dL 07/04/2024 10:23 AM EST LABORATORY [facility] AST 23 10 - 50 U/L 07/04/2024 10:23 AM EST LABORATORY [facility] Alkaline Phosphatase 101 35 - 130 U/L 07/04/2024 10:23 AM EST LABORATORY [facility] ALT 20 10 - 50 U/L 07/04/2024 10:23 AM EST LABORATORY [facility] Bilirubin, Total 0.3 <=1.2 mg/dL 07/04/2024 10:23 AM EST LABORATORY [facility] Bilirubin, Direct 0.1 0.0 - 0.3 mg/dL 07/04/2024 10:23 AM EST LABORATORY [facility] Protein 7.3 6.0 - 8.3 g/dL 07/04/2024 10:23 AM EST LABORATORY [facility] Blood Venous blood specimen / Unknown Venipuncture / Unknown 07/04/2024 9:16 AM EST 07/04/2024 9:52 AM EST Jayden Mejias MD LAB BLOOD ORDERABLES Final Result LABORATORY [address] [address] * BASIC METABOLIC PANEL (07/04/2024 9:16 AM EST) BUN 19 6 - 20 mg/dL 07/04/2024 10:23 AM EST LABORATORY [facility] CREATININE 1.1 0.6 - 1.2 mg/dL 07/04/2024 10:23 AM EST LABORATORY [facility] EGFR 74 >=60 mL/min 07/04/2024 10:23 AM EST LABORATORY [facility] Comment:eGFR is calculated b ased on the CKD-EPI 2020 equation. SODIUM 139 135 - 146 mmol/L 07/04/2024 10:23 AM EST LABORATORY [facility] POTASSIUM 4.5 3.5 - 5.1 mmol/L 07/04/2024 10:23 AM EST LABORATORY [facility] CHLORIDE 103 98 - 107 mmol/L 07/04/2024 10:23 AM EST LABORATORY [facility] CO2 26 22 - 32 mmol/L 07/04/2024 10:23 AM EST LABORATORY [facility] ANION GAP 10 7 - 15 mmol/L 07/04/2024 10:23 AM EST LABORATORY [facility] GLUCOSE 106 70 - 120 mg/dL 07/04/2024 10:23 AM EST LABORATORY [facility] CALCIUM 9.2 8.4 - 10.2 mg/dL 07/04/2024 10:23 AM EST LABORATORY [facility] Blood Venous blood specimen / Unknown Venipuncture / Unknown 07/04/2024 9:16 AM EST 07/04/2024 9:52 AM EST Jayden Mejias MD LAB BLOOD ORDERABLES Final Result Performing Organization Address [facility] Co de Phone Number LABORATORY [address] [address] * PT INR (07/04/2024 9:16 AM EST) Prothrombin Time 13.2 11.6 - 15.2 seconds 07/04/2024 10:08 AM EST LABORATORY [facility] INR 1.0 0.8 - 1.2 07/04/2024 10:08 AM EST LABORATORY [facility] Blood Venous blood specimen / Unknown Venipuncture / Unknown 07/04/2024 9:16 AM EST 07/04/2024 9:52 AM EST Narrative LABORATORY [facility] - 07/04/2024 10:08 AM EST Warfarin Therapy INR: 2.0-3.0 conventional anticoagulation INR: 2.5-3.5 high intensity anticoagulation Jayden Mejias MD LAB BLOOD ORDERABLES Final Result Performing Organization Address [facility] de Phone Number LABORATORY [address] [address] * APTT (07/04/2024 9:16 AM EST) aPTT 32 21 - 38 seconds 07/04/2024 10:09 AM EST LABORATORY [facility] Blood Venous blood specimen / Unknown Venipuncture / Unknown 07/04/2024 9:16 AM EST 07/04/2024 9:52 AM EST Narrative LABORATORY [facility] - 07/04/2024 10:09 AM EST Anticoagulation may affect testing. Refer to [employer] (f[employer]) Test Catalog for a list of effects. Jayden Mejias MD LAB BLOOD ORDERABLES Final Result Performing Organization Address City/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
--- OUTSIDE RECORDS SUMMARY | 2024-08-06 22:40 | External Medical Summary ---
Author Name Unknown Address Unknown Organization [id number]:LABORATORY [facility] - [address] [facility] [address] Laboratory Report Ordering Provider Test Date Status LESTER RAM 07/04/2024 09:16:20 Final Observation Date Value Abnormality Reference (Units ) Status Albumin 07/04/2024 09:16:20 4.4 3.8-5.0 (g/dL) Final AST (Aspartate aminotransferase) 07/04/2024 09:16:20 23 10-50 (U/L) Final Alk Phos 07/04/2024 09:16:20 101 35-130 (U/L) Final ALT (Alanine aminotransferase) 07/04/2024 09:16:20 20 10-50 (U/L) Final Bilirubin, Total 07/04/2024 09:16:20 0.3 <=1.2 (mg/dL) Final Bilirubin, Direct 07/04/2024 09:16:20 0.1 0.0-0.3 (mg/dL) Final Protein 07/04/2024 09:16:20 7.3 6.0-8.3 (g/dL) Final Performing Location LABORATORY [facility] [address] [facility] [address]
--- OUTSIDE RECORDS SUMMARY | 2024-08-06 22:40 | External Medical Summary ---
Author Name Unknown Address Unknown Organization [id number]:[facility]ORY [facility] [address] [place] [address] Laboratory Report Ordering Provider Test Date Status LESTER RAM 07/04/2024 09:16:20 Final Observation Date Value Abnormality Reference (Units ) Status ABO 07/04/2024 09:16:20 O Final RH 07/04/2024 09:16:20 Negative Final RED BLOOD CELL ANTIBODY SCREEN 07/04/2024 09:16:20 Negative Final SPECIMEN EXPIRATION DATE 07/04/2024 09:16:20 07/11/2024 23:59 Final Performing Location [facility] - [address] [place] [address]
--- OUTSIDE RECORDS SUMMARY | 2024-08-06 22:40 | External Medical Summary ---
Author Name Unknown Address Unknown Organization [id number]:LABORATORY [facility] - [address] [facility] [address] Laboratory Report Ordering Provider Test Date Status LESTER RAM 07/04/2024 09:16:20 Final Warfarin Therapy
INR: 2 .0-3.0 conventional anticoagulation
INR: 2.5- 3.5 high intensity anticoagulation Observation Date Value Abnormality Reference (Units ) Status PT 07/04/2024 09:16:20 13.2 11.6-15.2 (seconds) Final INR 07/04/2024 09:16:20 1.0 0.8-1.2 Final Performing Location LABORATORY [facility] - [address] [facility] [address]
--- OUTSIDE RECORDS SUMMARY | 2024-08-06 22:40 | External Medical Summary ---
Author Name Unknown Address Unknown Organization [id number]:[facility] [place] [address] [facility] [address] Laboratory Report Ordering Provider Test Date Status LESTER RAM 07/04/2024 09:16:20 Final Observation Date Value Abnormality Reference (Units ) Status Iron 07/04/2024 09:16:20 69 45-176 (ug /dL) Final Iron-binding capacity 07/04/2024 09:16:20 285 250-425 (ug/dL) Final Transferrin Sat % 07/04/2024 09:16:20 24 15 -55 (%) Final Performing Location [facility] [place] [address] [facility] [address]
--- OUTSIDE RECORDS SUMMARY | 2024-08-06 22:40 | External Medical Summary | Summary of Care ---
Author Name Unknown Organization [facility] Address [address] [place] [address] Phone [phone] Care Team Providers Care Ice Cream Freezer Helper Name Role Phone Leon Galvan DO Primary Care Provider [phone] Encounter Details Date Type Department Care Team (Late st Contact Info) Description 07/04/2024 9:00 AM EST Pre-Admission Testing Pre Surgery, [facility] [address] [place] [address] [facility], [facility] [address] [place] [address] Arrived Allergies Active Allergy Reactions Criticality Noted Date [...] (Lasix)Indicatio ns:Heart failure, systolic, due to CAD ([facility]) take one pill by mouth once a [...] systolic, due to CAD (HCC),Old LA (myocardial infarction),Wood Stock Blank Handler lawrence stable 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 (Household - for ages [...] teas and supplements, olive oil and garlic, Jackson 3s and NSAIDs. Patient instructed to stop [...] deodorants after bathing. No hairspray, or nail malagasy on fingers or toes. Day of surgery/procedure [...] name and bring to hospital. -An escort route sales delivery drivers supervisor is required if you are being discharged [...] taxi home, you must have your responsible republican accompany you in the taxi ride home at the time of discharge. OR times subject to change. Please check voiceEverlasting Footprintil messages the day/evening before your surgery forany [...] is important to make arrangements for a route sales delivery drivers supervisor to take you home. Please be aware our visitation policies are subject to change Professionals, attendants, caregivers or family members are allowable visitors for patients with intellectual, developmental or cognitive disabilities, communication barriers or behavioral concerns. Because patients' and families' needs vary, they will be taken into account when applying visitation restrictions. [facility]: Contact # [phone] Directions to Surgical Suite in from the [place]ymar Entrance The Surgical Waiting Room can be found in the Lobby [facility]. Enter through [facility] and the Waiting Room is directly in front of you. Proceed to check in and give them your name. Directions to Surgical Suite from the East Entrance Enter the East entrance and follow the hallway to the J elevator. Take the J elevator up to Level 1. Continue down the long hallway to the main [facility]. The Surgical Waiting Room will be on your Right. Proceed to check in and give them your Name. Directions to Surgical Suite from the Parking Garage Enter the [facility] lobby and proceed down the dong to the left. At the end of the dong, turn right. Continue down the long hallway to the main [facility]. The Surgical Waiting Room will be on your Right. Proceed to check in and give them your Name. THANK YOU FOR CHOOSING [facility]! documented in this encounter Nursing Notes * [...] teas and supplements, olive oil and garlic, Jackson 3s and NSAIDs. Patient instructed to stop [...] deodorants after bathing. No hairspray, or nail malagasy on fingers or toes. Day of surgery/procedure [...] name and bring to hospital. -An escort route sales delivery drivers supervisor is required if you are being discharged [...] taxi home, you must have your responsible republican accompany you in the taxi ride home [...] is important to make arrangements for a route sales delivery drivers supervisor to take you home. Please be aware our visitation policies are subject to change Professionals, attendants, caregivers or family members are allowable visitors for patients with intellectual, developmental or cognitive disabilities, communication barriers or behavioral concerns. Because patients' and families' needs vary, they will be taken into account when applying visitation restrictions. [facility]: Contact # [phone] Directions to Surgical Suite in from the Neymar Entrance The Surgical Waiting Room can be found in the Lobby of [facility]. Enter through Main Lobby Entrance and the [...] Suite from the Parking Garage Enter the [facility] lobby and proceed down the dong to the left. At the end of the dong, turn right. Continue down the long hallway to the main [place] Lobby. The Surgical Waiting Room will be on your Right. Proceed to check in and give them your Name. [facility]ING [facility] documented in this encounter Plan of Treatment Upcoming Encounters Date Type Department Care Team (Latest Contact Info) Description 07/08/2024 7:00 AM EST Hospital Encounter [facility], OPERATING ROOM [facility] [place] [address] [place] [address] Jayden Galvan MD [address] [place], [place] [id number] 07/08/2024 7:00 AM EST Anesthesia Event OR [facility] [place] OPERATING ROOM [facility] [place] [address] [place] [address] Janeen Jordan RN 07/08/2024 7:00 AM EST - 07/08/2024 12:15 PM EST Surgery [facility], OPERATING ROOM [facility] [place] [address] [place] [address] Jayden Galvan MD [address] [place] [address] CORONARY ARTERY BYPASS GRAFT USING ARTERY 1 GRAFT 09/17/2024 8:40 AM EDT Office Visit [address] [place] [address] Leon Galvan, [address] [place] [address] 09/18/2024 8:00 AM EDT Office Visit [facility], [facility] [address] Alexandra Mackenzie CRNP 132 [place] [address] 10/10/2024 3:30 PM EDT Imaging Radiology [facility] [address] [facility] [place] [address] 10/17/2024 9:00 AM EDT Office Visit Urology, [place] [address] [place] [address] Johnathon Kent PA-C [address] [place] [address] 02/06/2025 9:30 AM EDT Office Visit Cardiology, [facility] 132 [facility] [place] [address] Poncho Robledo, 132 [facility] [place] [address] Scheduled Procedures Name Priority Associated Diagnoses Date/Ti me CORONARY ARTERY BYPASS GRAFT USING ARTERY 1 GRAFT Coronary artery disease involving anvik coronary artery of anvik heart with unstable angina pectoris ([facility]) 07/08/2024 7:00 AM EST CORONARY ARTERY BYPASS GRAFT ARTERIAL AND VENOUS 2 GRAFTS Coronary artery disease involving anvik coronary artery of anvik heart with unstable angina pectoris ([facility]) 07/08/2024 7:00 AM EST ENDOSCOPY VIDEO ASSISTED HARVEST VEIN Coronary artery disease involving anvik coronary artery of anvik heart with unstable angina pectoris ([facility]) 07/08/2024 7:00 AM EST Health Maintenance Due Date Last Done Comments Cologuard 1995 Sigmoidoscopy 1995 Fecal Occult Blood Test 12/20/2008 12/21/2007 *ADVANCE DIRECTIVE NOT ON FILE 2019 DISCUSS TOBACCO CESSATION (REFER TO SMARTSET #3291) 06/18/2024 06/18/2023, 01/24/2017 Adult Wellness Visit 02/17/2025 02/18/2024, 10/31/2022, 08/17/2021 Depression Screening 02/17/2025 02/18/2024, 01/02/20 24 O2 ASSESSMENT COMPLETED IN PAST YEAR FOR COPD 05/08/2025 05/08/2024 GFR 06/16/2025 07/04/2024, 12/0 03/2024, 02/15/2024, Additional history exists HbA1c 06/16/2025 06/16/2024, 08/0 [...] this encounter Medical Devices Implanted Type Area Stable Cleaner Device Identifier Shelf Expiration Date Model / Serial / Lot Lead Kit Trial [id number] 50cm - [id number] - [id number] Implanted:Qty: 1 on 05/08/2024 by Maged Monreal DO at OR [facility] Left: Back [employer] : PAIN MGMT 03/18/2026 [id number] / [id number] / Lead Kit Trial [id number] 50cm - [id number] - [id number] Implanted:Qty: 1 on 05/08/2024 by Maged Monreal DO at OR [facility] Right: Back [employer] : PAIN MGMT 03/18/2026 [id number] 50E0 / [id number] / documented as of this encounter Care Teams Ice Cream Freezer Helper Relationship Specialty Start Date End Date Leon Galvan DO [address] [facility] [place] [address] PCP - General Internal Medicine 12/28/23 documented as of this encounter
--- OUTSIDE RECORDS SUMMARY | 2024-08-06 22:40 | External Medical Summary ---
Author Name Unknown Address Unknown Organization K01:LABORATORY [facility] - [address] [place] [address] Laboratory Report Ordering Provider Test Date Status LESTER RAM 07/04/2024 09:16:20 Final Observation Date Value Abnormality Reference (Units ) Status HbA1C 07/04/2024 09:16:20 5.9 Above high normal 4. 0-5.6 (%) Final The use of HbA1c to monitor glycemic status is based on normal hemoglobin and HbA composition. This test should not be used in patients with abnormal hemoglobin that affects the half life of the red blood cell or the in vivo glycation rates. Glucose, estimated average 07/04/2024 09:16:20 123 <126 (mg/dL) Final Performing Location LABORATORY [facility] - [address] [place] [address]
--- OUTSIDE RECORDS SUMMARY | 2024-08-06 22:40 | External Medical Summary ---
Author Name Unknown Address Unknown Organization K01:[facility]ORY [place] [address] [facility] [place] [address] Laboratory Report Ordering Provider Test Date Status LESTER RAM 07/04/2024 09:16:20 Final Observation Date Value Abnormality Reference (Units ) Status Retic, % (auto) 07/04/2024 09:16:20 0.91 0.80-1.90 (%) Final Reticulocytes, Absolute 07/04/2024 09:16:20 44.0 31.3-100.1 (K/uL) Final Reticulocyte fraction, immature 07/04/2024 09:16:20 6.8 2.5-20.6 (%) Final Reticulocyte HGB 07/04/2024 09:16:20 36.3 29.7-37.4 (pg) Final Performing Location LABORATORY [facility] - [facility] [place] [address]
--- OUTSIDE RECORDS SUMMARY | 2024-08-06 22:40 | External Medical Summary ---
Author Name Unknown Address Unknown Organization K1G:[facility] - [address] [facility] [address] Laboratory Report Ordering Provider Test Date Status LESTER RAM 07/04/2024 09:16:20 Final Observation Date Value Abnormality Reference (Units ) Status WBC, Total 07/04/2024 09:16:20 6.24 4.00-10.8 0 (K/uL) Final RBC 07/04/2024 09:16:20 4.77 4.50-5.25 (M/uL) Final Hemoglobin 07/04/2024 09:16:20 15.1 14.0-16.8 (g/dL) Final Anemia reflex testing trigge rs on a HGB < 12.0 for Females and HGB < 13.0 for Males in accordance with the WHO Anemia Guidelines
Anemia reflex testing triggers on a HGB < 12.0 for Females and HGB < 13.0 for Males in accordance with the WHO Anemia Guidelines HCT 07/04/2024 09:16:20 44.1 40.0-48.4 (%) Final MCV 07/04/2024 09:16:20 92.5 82.0-99.5 (fL) Final MCH 07/04/2024 09:16:20 31.7 27.0-34.0 (pg) Final MCHC 07/04/2024 09:16:20 34.2 32.0-36.0 (g/dL) Final RDW 07/04/2024 09:16:20 12.6 11.5-15.5 (%) Final Platelets 07/04/2024 09:16:20 207 140-400 (K /uL) Final MPV 07/04/2024 09:16:20 11.4 6.6-11.1 ( fL) Final Performing Location LAB[facility]ATORY [facility] - [address] [facility] [address]
--- OUTSIDE RECORDS SUMMARY | 2024-08-06 22:40 | External Medical Summary ---
Author Name Unknown Address Unknown Organization K1G:LABORATORY [facility] - [address] [place] [id number] Laboratory Report Ordering Provider Test Date Status LESTER RAM 07/04/2024 10:20:33 Final Observation Date Value Abnormality Reference (Units ) Status Color of Urine by Auto 07/04/2024 10:20:33 Yellow Light Yellow, Yellow, Dark Yellow Final Clarity, Urine 07/04/2024 10:20:33 Clear Clear Final Glucose [Mass/volume] in Urine by Automated test strip 07/04/2024 10:20:33 Negative Negative (mg/dL) Final Bilirubin.total [Presence] in Urine by Automated test strip 07/04/2024 10:20:33 Negative Negative Final Ketones [Mass/volume] in Urine by Automated test strip 07/04/2024 10:20:33 Negative Negative (mg/dL) Final Specific gravity, Urine 07/04/2024 10:20:33 1.007 1.003-1.030 Final Hemoglobin [Presence] in Urine by Automated test strip 07/04/2024 10:20:33 Negative Negative Final pH, Urine 07/04/2024 10:20:33 6.5 5.0-7.5 (Units) Final Protein [Mass/volume] in Urine by Automated test strip 07/04/2024 10:20:33 Negative Negative (mg/dL) Final Urobilinogen [Mass/volume] in Urine by Automated test strip 07/04/2024 10:20:33 0.2 0.2, 1.0 (mg/dL) Final Nitrite [Presence] in Urine by Automated test strip 07/04/2024 10:20:33 Negative Negative Final Leukocyte esterase [Presence] in Urine by Automated test strip 07/04/2024 10:20:33 Negative Negative Final Annotation Comment 07/04/2024 10:20:33 Final Screen negative - Microscopi c not performed. Performing Location LABORATORY [facility] - [address] [facility] [address]
--- OUTSIDE RECORDS SUMMARY | 2024-08-06 22:40 | External Medical Summary ---
Author Name Unknown Address Unknown Organization K1G:LABORATORY [facility] - [address] [place] [id number] Laboratory Report Ordering Provider Test Date Status LESTER RAM 07/04/2024 09:16:20 Final Observation Date Value Abnormality Reference (Units ) Status BUN 07/04/2024 09:16:20 19 6-20 (mg/dL) Final Creatinine 07/04/2024 09:16:20 1.1 0.6-1.2 (mg/dL) Final Glomerular filtration rate/1.73 sq M.predicted [Volume Rate/Area] in Serum, Plasma or Blood by Creatinine-based formula (CKD-EPI) 07/04/2024 09:16:20 74 >=60 (mL/min) Final eGFR is calculated based on the CKD-EPI 2020 equation. Sodium 07/04/2024 09:16:20 139 135-146 (m mol/L) Final Potassium 07/04/2024 09:16:20 4.5 3.5-5.1 (m mol/L) Final Cl 07/04/2024 09:16:20 103 98-107 (mm ol/L) Final CO2 07/04/2024 09:16:20 26 22-32 (mmo l/L) Final Anion gap 07/04/2024 09:16:20 10 7-15 (mmol /L) Final Glucose 07/04/2024 09:16:20 106 70-120 (mg /dL) Final Calcium 07/04/2024 09:16:20 9.2 8.4-10.2 ( mg/dL) Final Performing Location LABORATORY [facility] - [address] [facility] [address]
--- OUTSIDE RECORDS SUMMARY | 2024-08-06 22:40 | External Medical Summary ---
Author Name Unknown Address Unknown Organization K1G:LABORATORY [facility] - [address] [place] [phone] Laboratory Report Ordering Provider Test Date Status LESTER RAM 07/04/2024 09:16:20 Final Anticoagulation may affect t esting. Refer to [employer] Test Catalog for a list of effects. Observation Date Value Abnormality Reference (Units ) Status aPTT panel - Platelet poor plasma 07/04/2024 09:16:20 32 21-38 (seconds) Final Performing Location LABORATORY [facility] - [address] [place] [id number]
--- OUTSIDE RECORDS SUMMARY | 2024-08-06 22:41 | External Medical Summary | Summary of Care ---
Author Name Unknown Organization [facility] Address [address] [place] [address] Phone [phone] Care Team Providers Care Object Oriented Developer Name Role Phone Leon Galvan DO Primary Care Provider [phone] Reason for Visit * Reason Comments Cardiac Rehab Encounter Details Date Type Department Care Team (Late st Contact Info) Description 06/16/2024 10:00 AM EST Telemedicine Cardiac Rehab [facility], [address] [place] [address] [place] [address] [facility], Virtual Cardiac Rehab [address] [place] [address] [place] [address] History of coronary artery stent placement* Allergies Active Allergy Reactions Criticality Noted Date Comments Codeine Other (Please comment) High 09/08/2013 Severe Skin peeling documented as of this encounter (statuses as of 06/28/2024) Medications oxygen GASIndications:C hronic coronary artery disease,COPD, [...] 100 Tablet 5 11/21/2023 10:41 AM EDT 08/01/202 3 Active Dutasteride 0.5 MG Oral Capsule (Avodart)Indicat ions:BPH with obstruction/lowe r urinary tract symptoms Take 1 Capsule by mouth in the morning. 100 Capsule 3 11/21/2023 10:41 AM EDT 3 Active Additional Information Patient taking differently:0.5 mg OralDAILY NOON, Reported on 06/17/2024 Furosemide 20 MG Oral Tablet (Lasix)Indicatio ns:Heart failure, systolic, due to CAD ([facility]) take one pill by mouth once [...] 12 noon and at bedtime, Reported on 06/17/2024 buPROPion HCl ER (SR) 150 MG Oral [...] disease,Heart failure, systolic, due to CAD (HCC),Old ND (myocardial infarction),Compounding Scaler lawrence stable 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 100 Tablet 3 11/21/2023 10:41 AM EDT 3 Active Ezetimibe 10 MG Oral Tablet (Zetia)Indicatio ns:Dyslipidemia, goal LDL below 70 TAKE ONE TABLET BY MOUTH DAILY 100 Tablet 3 11/21/2023 10:41 AM EDT 3 Active Nitroglycerin 0.4 MG Sublingual Tablet Sublingual (Nitrostat)Indic ations:Coronary artery disease of marshall artery of marshall heart with stable angina pectoris (HCC) Place [...] taking differently:0.4 mg OralDAILY NOON, Reported on 06/17/2024 Pregabalin 75 MG Oral Capsule (Lyrica)Indicati ons:Neuropathy [...] 1 03/31/2024 6:45 AM EDT 4 Active Hospital, Clinic, or Other Facility Administered Medication Ordered Dose Route Frequency Start Date End Date Status vitamin b-12 (Cyanocobalamin) inj 1,000 mcgIndications:Vitamin B 12 deficiency 1000 mcg IM [id number] 08/17/2023 07/18/2024 Active documented as of this encounter (statuses as of 06/28/2024) Active Problems Problem Noted Date Diagnosed Date Vitamin B 12 deficiency 04/07/2022 HTN, goal [...] as of this encounter (statuses as of 06/28/2024) Resolved Problems Problem Noted Date Diagnosed Date Resolved Date Type 2 diabetes mellitus wit h autonomic neuropathy 08/17/2023 09/17/2023 Atherosclerosis of marshall co ronary artery without angina pectoris 08/17/2023 [...] as of this encounter (statuses as of 06/28/2024) Immunizations Name Administration Dates Next Due COVID-19 mRNA, LNP-s, No Pre serve, 2-Dose Series (Moderna) 12/22/2020,11/23/2020 COVID-19, MRNA-LNP, PF, 30 M CG/0.3 mL, 12 YRS AND ABOVE, IM ([facility] 06/16/2024,05/07/2023 COVID-19, mRNA, LNP-s, PF, B [...] as of this encounter Progress Notes * Maryuri Sánchez EPC - 06/28/2024 3:32 PM EST Session Encounter: Patient is participating in [facility]'s Intensive Cardiac Rehab Program in partnership with [employer] is a specialized company that specializes in providing virtual cardiac rehab services. Session #20 completed. Please refer to scan document for session details. Session type: Exercise Individual Session duration: 35 minutes documented in this encounter Plan of Treatment Upcoming Encounters Date Type Department Care Team (Late st Contact Info) Description 06/30/2024 11:00 AM EST Cardiac Studies [address] Studies[address] [address] 06/30/2024 1:00 PM EST Imaging Vascular Lab, [facility] 2nd Floor, [address] [address] 07/03/2024 8:30 AM EST Office Visit Cardiothoracic Surg [facility], [place] [address] [place] [address] Jayden Mejias MD [address] [place] [address] 07/08/2024 2:00 PM EST Office Visit Cardiology, [address] [place] [address] Poncho Robledo, DO [address] [facility] [place] [address] 09/17/2024 8:40 AM EDT Office Visit Family Practice [address] [place] [address] 293 [place] [address] Leon Galvan, DO 293 [place] [address] 09/18/2024 8:00 AM EDT Office Visit Cardiology, [facility] 132 [facility] [place] [address] Alexandra Mackenzie CRNP 132 [facility] [place] [address] 10/10/2024 3:30 PM EDT Imaging Radiology [facility] 132 [facility] [place] [address] 10/17/2024 9:00 AM EDT Office Visit Urology, [place] [address] [place] [address] Johnathon Kent PA-C [address] [place] [address] Health Maintenance Due Date Last Done Comments [...] or Tdap) 12/31/2033 01/01/2024, 11/10/2013 Pneumococcal Vaccine: 65+ Years Completed 07/11/2019, 03/24/2015, 05/27/2014, Additional history [...] this encounter Medical Devices Implanted Type Area Drill Instructor Device Identifier Shelf Expiration Date Model / Serial / Lot Lead Kit Trial [id number] 50cm - [id number] - [id number] Implanted:Qty: 1 on 05/08/2024 by Maged Monreal, at OR [facility] Left: Back [employer] : PAIN MGMT 03/18/2026 [id number] 50E0 / [id number] / Lead Kit Trial [id number] 50cm - [id number] - [id number] Implanted:Qty: 1 on 05/08/2024 by Maged Monreal DO at OR [facility] Right: Back [employer] : PAIN MGMT 03/18/2026 [id number] 50E0 / [id number] / documented as of this encounter Visit Diagnoses Diagnosis History of coronary artery stent placement- Primary Postsurgical percutaneous transluminal coronary angioplasty status documented in this encounter Care Teams Object Oriented Developer Relationship Specialty Start Date End Date Leon Galvan DO 293 [place] [address] PCP - General Internal Medicine 12/28/23 documented as of this encounter
--- OUTSIDE RECORDS SUMMARY | 2024-08-06 22:41 | External Medical Summary | Summary of Care ---
Author Name Unknown Organization [facility] Address [address] [place] [address] Phone [phone] Care Team Providers Care Car Chaser Name Role Phone Leon Galvan DO Primary Care Provider [phone] Reason for Visit * Reason Onset Date Comments Test Results 06/30/2024 Encounter Details Date Type Department Care Team (Late st Contact Info) Description 06/30/2024 Telephone Cardiology, [facility] [address] [place] [id number] Poncho Robledo DO [address] [place] [address] Test Results Allergies Active Allergy Reactions Criticality Noted Date Comments Codeine Other (Please comment) High 09/08/2013 Severe Skin peeling documented as of this encounter (statuses as of 06/30/2024) Medications oxygen GASIndications:C hronic coronary artery disease,COPD, [...] failure, systolic, due to CAD ([facility]) take one pill by mouth once [...] systolic, due to CAD (HCC),Old [place] (myocardial infarction),Diploma Medical Assistant lawrence stable 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 100 Tablet 3 11/21/2023 10:41 AM EDT 3 Active Ezetimibe 10 MG Oral Tablet (Zetia)Indicatio ns:Dyslipidemia, goal LDL below 70 TAKE ONE TABLET BY MOUTH DAILY 100 Tablet 3 11/21/2023 10:41 AM EDT 3 Active Nitroglycerin 0.4 MG Sublingual Tablet Sublingual (Nitrostat)Indic ations:Coronary artery disease of [place] artery of [place] heart with stable angina pectoris (HCC) Place [...] mcgIndications:Vitamin B 12 deficiency 1000 mcg IM [id number] 08/17/2023 07/18/2024 Active documented as of this encounter (statuses as of 06/30/2024) Active Problems Problem Noted Date Diagnosed Date [...] as of this encounter (statuses as of 06/30/2024) Resolved Problems Problem Noted Date Diagnosed Date Resolved Date Type 2 diabetes mellitus wit h autonomic neuropathy 08/17/2023 09/17/2023 Atherosclerosis of [place] co ronary artery without angina pectoris 08/17/2023 [...] as of this encounter (statuses as of 06/30/2024) Immunizations Name Administration Dates Next Due COVID-19 [...] encounter Miscellaneous Notes * Telephone Encounter - Mal Mello OSA - 06/30/2024 4:31 PM EST Patient calling for test results. Transferred to clinic * Telephone Encounter - Ted Marcial LPN - 06/30/2024 3:38 PM EST Sent patient a [employer] message to make aware. ----- Message from Poncho Robledo DO sent at 06/30/2024 3:38 PM EST ----- Carotid duplex demonstrates mild carotid vascular disease. Continue current medications. Proceed with CT surgery evaluation as scheduled. documented in this encounter Plan of Treatment Upcoming Encounters Date Type Department Care Team (Late st Contact Info) Description 07/03/2024 8:30 AM EST Office Visit Cardiothoracic Surg [facility] [address] [place] [address] Jayden Mejias MD [address] [place] [address] 07/08/2024 2:00 PM EST Office Visit Cardiology, [facility] [address] [facility] [place] [address] Poncho Robledo, DO 132 [facility] [place] [address] 09/17/2024 8:40 AM EDT Office Visit Family Practice [address] [place] [address] 293 [place] [address] Leon Galvan, DO 293 [place] [address] 09/18/2024 8:00 AM EDT Office Visit Cardiology, [facility] [place] [address] Alexandra Mackenzie CRNP [facility] [address] 10/10/2024 3:30 PM EDT Imaging Radiology [facility] 132 [facility] [place] [address] 10/17/2024 9:00 AM EDT Office Visit Urology, [place] [address] [place] [address] Johnathon Kent PA-C [address], [place] [id number] Health Maintenance Due Date Last Done Comments [...] this encounter Medical Devices Implanted Type Area Demurrage Agent Device Identifier Shelf Expiration Date Model / Serial / Lot Lead Kit Trial [id number] 50cm - [id number] - [id number] Implanted:Qty: 1 on 05/08/2024 by Maged Monreal DO at OR [facility] Left: Back [employer] : PAIN MGMT 03/18/2026 [id number] 50E0 / [id number] / Lead Kit Trial [id number] 50cm - [id number] - [id number] Implanted:Qty: 1 on 05/08/2024 by Maged Monreal DO at OR [facility] Right: Back [employer] : PAIN MGMT 03/18/2026 [id number] 50E0 / [id number] / documented as of this encounter Care Teams Car Chaser Relationship Specialty Start Date End Date Leon Galvan DO 293 [place] [address] PCP - General Internal Medicine 12/28/23 documented as of this encounter
--- OUTSIDE RECORDS SUMMARY | 2024-08-06 22:41 | External Medical Summary | Summary of Care ---
Author Name Unknown Organization [facility] Address [address] [place] [address] Phone [phone] Care Team Providers Care Flight Operations Dispatch Clerk Name Role Phone Leon Galvan DO Primary Care Provider [phone] Reason for Visit * Reason Onset Date Comments Test Results 07/01/2024 Encounter Details Date Type Department Care Team (Late st Contact Info) Description 07/01/2024 Telephone Family Practice [facility] [address] [place] [address] Leon Galvan DO [address] [place] [address] Test Results Allergies Active Allergy Reactions Criticality Noted Date Comments Codeine Other (Please comment) High 09/08/2013 Severe Skin peeling documented as of this encounter (statuses as of 07/01/2024) Medications oxygen GASIndications:C hronic coronary artery disease,COPD, [...] (Lasix)Indicatio ns:Heart failure, systolic, due to CAD ([facility]) take one pill by [...] disease,Heart failure, systolic, due to CAD (HCC),Old [place] (myocardial infarction),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 100 Tablet 3 11/21/2023 10:41 AM EDT 3 Active Ezetimibe 10 MG Oral Tablet (Zetia)Indicatio ns:Dyslipidemia, goal LDL below 70 TAKE ONE TABLET BY MOUTH DAILY 100 Tablet 3 11/21/2023 10:41 AM EDT 3 Active Nitroglycerin 0.4 MG Sublingual Tablet Sublingual (Nitrostat)Indic ations:Coronary artery disease of [place] artery of [place] heart with stable angina pectoris (HCC) Place [...] mcgIndications:Vitamin B 12 deficiency 1000 mcg IM [id number] 08/17/2023 07/18/2024 Active documented as of this encounter (statuses as of 07/01/2024) Active Problems Problem Noted Date Diagnosed Date [...] as of this encounter (statuses as of 07/01/2024) Resolved Problems Problem Noted Date Diagnosed Date Resolved Date Type 2 diabetes mellitus wit h autonomic neuropathy 08/17/2023 09/17/2023 Atherosclerosis of [place] co ronary artery without angina pectoris 08/17/2023 [...] as of this encounter (statuses as of 07/01/2024) Immunizations Name Administration Dates Next Due COVID-19 mRNA, LNP-s, No Pre serve, 2-Dose Series (Moderna) 12/22/2020,11/23/2020 COVID-19, MRNA-LNP, PF, 30 M CG/0.3 mL, 12 YRS AND ABOVE, IM ([employer]Comirnat) 06/16/2024,05/07/2023 COVID-19, mRNA, LNP-s, PF, B ooster, [...] encounter Miscellaneous Notes * Telephone Encounter - Madisyn Szymanski CCMA - 07/01/2024 11:41 AM EST Spoke with patient and made him aware of the results and recommendations at this time. Pt verbalized understanding. * Telephone Encounter - Leon Galvan DO - 07/01/2024 11:12 AM EST Labs are good. Glucose is stable in the Prediabatic range Cholesterol is not at goal. B12 is high Decrease B 12 injection to every 2 months Continue current medications. * Telephone Encounter - Madisyn Szymanski CCMA - 07/01/2024 10:45 AM EST Please review most recent test results if available - please advise. * Telephone Encounter - Tia Lucero OSA - 07/01/2024 8:49 AM EST Would like to talk to nurse about test results documented in this encounter Plan of Treatment Upcoming Encounters Date Type Department Care Team (Late st Contact Info) Description 07/03/2024 8:30 AM EST Office Visit Cardiothoracic Surg [facility] [place] [address] [place] [address] Jayden Mejias MD [address] [place], [place] [id number] 07/08/2024 2:00 PM EST Office Visit Cardiology, [facility] 132 [facility] [place] [address] Poncho Robledo, DO 132 [facility] [place] [address] 09/17/2024 8:40 AM EDT Office Visit Family Practice [address] [place] [address] [address] [place] [address] Leon Galvan, DO [address] [place] [address] 09/18/2024 8:00 AM EDT Office Visit Cardiology, [facility] 132 [facility] [place] [address] Alexandra Mackenzie CRNP 132 [facility] [place] [address] 10/10/2024 3:30 PM EDT Imaging Radiology [facility] 132 [facility] [place] [address] 10/17/2024 9:00 AM EDT Office Visit Urology, [place] [address] [place], [place] [phone] Johnathon Kent PA-C [address], [place] [phone] Health Maintenance Due Date Last Done Comments Cologuard 1995 Sigmoidoscopy 1995 Fecal Occult Blood Test 12/20/2008 12/21/2007 *ADVANCE DIRECTIVE NOT ON FILE 2019 DISCUSS TOBACCO CESSATION (REFER TO SMARTSET #4773) 06/18/2024 06/18/2023, 01/24/2017 Adult Wellness Visit 02/17/2025 [...] this encounter Medical Devices Implanted Type Area Honeycomb Decapper Device Identifier Shelf Expiration Date Model / Serial / Lot Lead Kit Trial [id number] 50cm - [id number] - [id number] Implanted:Qty: 1 on 05/08/2024 by Maged Monreal DO at OR [facility] Left: Back [employer] : PAIN MGMT 03/18/2026 [id number] 50E0 / [id number] / Lead Kit Trial [id number] 50cm - [id number] - [id number] Implanted:Qty: 1 on 05/08/2024 by Maged Monreal DO at OR [facility] Right: Back [employer] : PAIN MGMT 03/18/2026 [id number] 50E0 / [id number] / documented as of this encounter Care Teams Flight Operations Dispatch Clerk Relationship Specialty Start Date End Date Leon Galvan DO 293 [place] [address] PCP - General Internal Medicine 12/28/23 documented as of this encounter
--- OUTSIDE RECORDS SUMMARY | 2024-08-06 22:41 | External Medical Summary | Summary of Care ---
Author Name Unknown Organization [facility] Address [address] [place] [address] Phone [phone] Care Team Providers Care Concrete Mixing Plant Laborer Name Role Phone Leon Galvan DO Primary Care Provider [phone] Reason for Visit * Reason Onset Date Comments Test Results 06/30/2024 Encounter Details Date Type Department Care Team (Late st Contact Info) Description 06/30/2024 Telephone Cardiology, [facility] [address] [place] [id number] Poncho Robledo DO [address] [place] [address] Test Results Allergies Active Allergy Reactions Criticality [...] ns:Heart failure, systolic, due to CAD ([facility]) take one pill by mouth once a [...] systolic, due to CAD (HCC),Old [place] (myocardial infarction),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 100 Tablet 3 11/21/2023 10:41 AM EDT 3 Active Ezetimibe 10 MG Oral Tablet (Zetia)Indicatio ns:Dyslipidemia, goal LDL below 70 TAKE ONE TABLET BY MOUTH DAILY 100 Tablet 3 11/21/2023 10:41 AM EDT 3 Active Nitroglycerin 0.4 MG Sublingual Tablet Sublingual (Nitrostat)Indic ations:Coronary artery disease of [place] artery of [place] heart with stable angina pectoris (HCC) Place [...] mcgIndications:Vitamin B 12 deficiency 1000 mcg IM [id number] 08/17/2023 07/18/2024 Active documented as of this [...] h autonomic neuropathy 08/17/2023 09/17/2023 Atherosclerosis of [place] co ronary artery without angina pectoris 08/17/2023 [...] CG/0.3 mL, 12 YRS AND ABOVE, IM ([employer]Comirnat[employer]) 06/16/2024,05/07/2023 COVID-19, mRNA, LNP-s, PF, B ooster, [...] encounter Miscellaneous Notes * Telephone Encounter - Ted Marcial LPN - 06/30/2024 4:48 PM EST Patient returned call and was informed of Dr. Robledo's message. Patient verbalized understanding. * Telephone Encounter - Ted Marcial LPN - 06/30/2024 4:32 PM EST Sent patient a [employer] message as well. Awaiting reply or call back. * Telephone Encounter - Poncho Robledo DO - 06/30/2024 4:22 PM EST Echocardiogram demonstrates left ventricular systolic dysfunction with LVEF 35 - 39%. There is a small apical laminar thrombus. Recommend addition of Eliquis 5 mg twice daily. Prescription sent to [facility] [address]. Attempted to contact both the patient and his via mobile phone and left message on voicemail to return call to the office. Start medication as soon as possible. Keep follow-up appointment as scheduled with CT surgery July 03, 2024. documented in this encounter Plan of Treatment Upcoming Encounters Date Type Department Care Team (Late st Contact Info) Description 07/03/2024 8:30 AM EST Office Visit Cardiothoracic Surg [facility] [place] [address] [place] [address] Jayden Mejias MD [address] [place] [address] 07/08/2024 2:00 PM EST Office Visit Cardiology, [facility] 132 [facility] [place] [address] Poncho Robledo DO [facility] [place] [address] 09/17/2024 8:40 AM EDT Office Visit Family Practice [address] [place] [address] 293 [facility] [place] [address] Leon Galvan DO [address] [place] [address] 09/18/2024 8:00 AM EDT Office Visit Cardiology, [facility] 132 [facility] [place] [address] Alxeandra Mackenzie CRNP [facility] [place] [address] 10/10/2024 3:30 PM EDT Imaging Radiology [facility] 132 [facility] [place] [address] 10/17/2024 9:00 AM EDT Office Visit Urology, [place] [address] [place], [place] [phone] Johnathon Kent PA-C [address] [place], [place] [phone] Health Maintenance Due Date Last Done Comments Cologuard 1995 Sigmoidoscopy 1995 Fecal Occult Blood Test 12/20/2008 12/21/2007 *ADVANCE DIRECTIVE NOT ON FILE 2019 DISCUSS TOBACCO CESSATION (REFER TO SMARTSET #2782) 06/18/2024 06/18/2023, 01/24/2017 Adult Wellness Visit 02/17/2025 [...] this encounter Medical Devices Implanted Type Area Wholesale Buyer Device Identifier Shelf Expiration Date Model / Serial / Lot Lead Kit Trial [id number] 50cm - [id number] - [id number] Implanted:Qty: 1 on 05/08/2024 by Maged Monreal DO at OR [facility] Left: Back [employer] : PAIN MGMT 03/18/2026 [id number] 50E0 / [id number] / Lead Kit Trial [id number] 50cm - [id number] - [id number] Implanted:Qty: 1 on 05/08/2024 by Maged Monreal DO at OR [facility] Right: Back [employer] : PAIN MGMT 03/18/2026 [id number] 50E0 / [id number] / documented as of this encounter Care Teams Concrete Mixing Plant Laborer Relationship Specialty Start Date End Date Leon Galvan DO [address] [place] [address] PCP - General Internal Medicine 12/28/23 documented as of this encounter
--- OUTSIDE RECORDS SUMMARY | 2024-08-06 22:41 | External Medical Summary | Summary of Care ---
Author Name Unknown Organization [facility] Address [address] [place] [address] Phone [phone] Care Team Providers Care Health Care Legal Assistant Name Role Phone Leon Galvan DO Primary Care Provider [phone] Reason for Visit * Reason Comments Cardiac Rehab Encounter Details Date Type Department Care Team (Late st Contact Info) Description 06/23/2024 9:00 AM EST Telemedicine Cardiac Rehab [facility], [address] [place] [address] [facility], Virtual Cardiac Rehab [address] [place] [address] [place] [address] History of coronary artery stent placement* Allergies [...] ns:Heart failure, systolic, due to CAD ([facility]) take one pill by mouth once a [...] systolic, due to CAD (HCC),Old [place] (myocardial infarction),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 100 Tablet 3 11/21/2023 10:41 AM EDT 3 Active Ezetimibe 10 MG Oral Tablet (Zetia)Indicatio ns:Dyslipidemia, goal LDL below 70 TAKE ONE TABLET BY MOUTH DAILY 100 Tablet 3 11/21/2023 10:41 AM EDT 3 Active Nitroglycerin 0.4 MG Sublingual Tablet Sublingual (Nitrostat)Indic ations:Coronary artery disease of [place] artery of [place] heart with stable angina pectoris (HCC) Place [...] mcgIndications:Vitamin B 12 deficiency 1000 mcg IM [id number] 08/17/2023 07/18/2024 Active documented as of this [...] h autonomic neuropathy 08/17/2023 09/17/2023 Atherosclerosis of [place] co ronary artery without angina pectoris 08/17/2023 [...] CG/0.3 mL, 12 YRS AND ABOVE, IM ([facility]) 06/16/2024,05/07/2023 COVID-19, mRNA, LNP-s, PF, B [...] Progress Notes * Maryuri Sánchez EPC - 07/01/2024 9:45 PM EST Session Encounter: Patient is participating in [facility]'s Intensive Cardiac Rehab Program in partnership with [employer] is a specialized company that specializes in providing virtual cardiac rehab services. Session #23 completed. Please refer to scan document for session details. Session type: Exercise Individual Session duration: 35 minutes documented in this encounter Plan of Treatment Upcoming Encounters Date Type Department Care Team (Late st Contact Info) Description 07/03/2024 8:30 AM EST Office Visit Cardiothoracic Surg [facility] [address] [place] [address] Jayden Mejias MD [address] [place] [address] 07/08/2024 2:00 PM EST Office Visit Cardiology, [facility] [address] [place] [address] Poncho Robledo DO [address] [place] [address] 09/17/2024 8:40 AM EDT Office Visit Family Practice [address] [place] [address] 293 [facility] [place] [address] Leon Galvan, DO [address] [place] [address] 09/18/2024 8:00 AM EDT Office Visit Cardiology, [facility] [address] [facility] [place] [address] Alexandra Mackenzie CRNP [address] [place] [address] 10/10/2024 3:30 PM EDT Imaging Radiology [facility] [place] [address] 10/17/2024 9:00 AM EDT Office Visit Urology, [place] [address] [place] [address] Johnathon Kent PA-C [address] [place], [place] [phone] Health Maintenance Due Date Last Done Comments Cologuard 1995 Sigmoidoscopy 1995 Fecal Occult Blood Test 12/20/2008 12/21/2007 *ADVANCE DIRECTIVE NOT ON FILE 2019 DISCUSS TOBACCO CESSATION (REFER TO SMARTSET #3291) 06/18/2024 06/18/2023, 01/24/2017 Adult Wellness Visit 02/17/2025 02/18/2024, 10/31/2022, 08/17/2021 Depression Screening 02/17/2025 02/18/2024, 01/02/20 24 O2 ASSESSMENT COMPLETED IN PAST YEAR FOR COPD 05/08/2025 05/08/2024 GFR 06/16/2025 06/16/2024, 0 03/2024, 09/21/2023, Additional history exists HbA1c 06/16/2025 [...] this encounter Medical Devices Implanted Type Area Clarifier Operator Device Identifier Shelf Expiration Date Model / Serial / Lot Lead Kit Trial [id number] 50cm - [id number] - [id number] Implanted:Qty: 1 on 05/08/2024 by Maged Monreal DO at OR [facility] Left: Back [employer] : PAIN MGMT 03/18/2026 [id number] 50E0 / [id number] / Lead Kit Trial [id number] 50cm - [id number] - [id number] Implanted:Qty: 1 on 05/08/2024 by Maged Monreal DO at OR [facility] Right: Back [employer] : PAIN MGMT 03/18/2026 [id number] 50E0 / [id number] / documented as of this encounter Visit Diagnoses Diagnosis History of coronary artery stent placement- Primary Postsurgical percutaneous transluminal coronary angioplasty status documented in this encounter Care Teams Health Care Legal Assistant Relationship Specialty Start Date End Date Leon Galvan DO [address] [place] [address] PCP - General Internal Medicine 12/28/23 documented as of this encounter
--- OUTSIDE RECORDS SUMMARY | 2024-08-06 22:41 | External Medical Summary | Summary of Care ---
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 100 Tablet 3 11/21/2023 10:41 AM EDT 3 Active Ezetimibe 10 MG Oral Tablet (Zetia)Indicatio ns:Dyslipidemia, goal LDL below 70 TAKE ONE TABLET BY MOUTH DAILY 100 Tablet 3 11/21/2023 10:41 AM EDT 3 Active Nitroglycerin 0.4 MG Sublingual Tablet Sublingual (Nitrostat)Indic ations:Coronary artery disease of table mountain artery of table mountain heart with stable angina pectoris (HCC) Place [...] mcgIndications:Vitamin B 12 deficiency 1000 mcg IM [id number] 08/17/2023 07/18/2024 Active documented as of this encounter (statuses as of 07/03/2024) Active Problems Problem Noted Date Diagnosed Date Coronary artery disease invo lving table mountain coronary artery of table mountain heart with unstable angina pectoris 07/03/2024 Vitamin [...] h autonomic neuropathy 08/17/2023 09/17/2023 Atherosclerosis of table mountain co ronary artery without angina pectoris 08/17/2023 [...] 18 years and over) Not on file 3 Are you (or your family) scottie eless [...] AM EDT documented as of this encounter Nursing Notes * Stella Verdugo RRT-RESPIRATORY THERAPIST ASSISTANT - 07/03/2024 11:42 AM EST Patient identified by name and date of . Abg with direct O2 saturation drawn from left radial artery. Positive keshawn test. Spirometry performed. documented in this encounter Plan of Treatment Upcoming Encounters Date Type Department Care Team (Latest Contact Info) Description 07/03/2024 11:39 AM EST Hospital Encounter Radiology, [place] [address] [place] [address] Arrived 07/04/2024 9:00 AM EST Pre-Admission Testing Pre Surgery, [facility] [place] [address] [place] [address] Omer Adamson [address] [place] [address] 07/08/2024 7:00 AM EST Hospital Encounter [facility], OPERATING ROOM [facility], [facility] [address] [place] [address] Jayden Galvan MD [address] [place] [address] 07/08/2024 7:00 AM EST - 07/08/2024 12:15 PM EST Surgery [facility], OPERATING ROOM [facility], [facility] [address] [place] [address] Jayden Galvan MD [address] [place] [address] CORONARY ARTERY BYPASS GRAFT USING ARTERY 1 GRAFT 07/08/2024 2:00 PM EST Office Visit Cardiology, [facility] 132 [facility] [place] [address] Poncho Robledo, DO 132 [facility] [place] [address] 09/17/2024 8:40 AM EDT Office Visit Family Practice [address] [place] [address] 293 [facility] [address] Leon Galvan, DO [address] [place] [address] 09/18/2024 8:00 AM EDT Office Visit Cardiology, [facility] 132 [facility] [place] [address] Alexandra Mackenzie CRNP 132 [facility] [place] [address] 10/10/2024 3:30 PM EDT Imaging Radiology [facility] 132 [facility] [place] [address] 10/17/2024 9:00 AM EDT Office Visit Urology, [place] [address] [place], [place] [id number] Johnathon Kent PA-C [address] [place], [place] [id number] Pending Results Name Type Priority Associated Diagnoses Date /Time BASIC SPIROMETRY Procedures Routine 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 ([facility]) 07/03/2024 11:20 AM EST Scheduled Procedures Name Priority Associated Diagnoses Date/Ti me CORONARY ARTERY BYPASS GRAFT USING ARTERY 1 GRAFT 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 ([facility]) 07/08/2024 7:00 AM EST CORONARY ARTERY BYPASS GRAFT ARTERIAL AND VENOUS 2 GRAFTS 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 ([facility]) 07/08/2024 7:00 AM EST ENDOSCOPY VIDEO ASSISTED HARVEST VEIN 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 ([facility]) 07/08/2024 7:00 AM EST Health [...] this encounter Medical Devices Implanted Type Area Director Of Scientific Research Device Identifier Shelf Expiration Date Model / Serial / Lot Lead Kit Trial [id number] 50cm - [id number] - [id number] Implanted:Qty: 1 on 05/08/2024 by Maged Monreal DO at OR [facility] Left: Back [employer] : PAIN MGMT 03/18/2026 [id number] 50E0 / [id number] / Lead Kit Trial [id number] 50cm - [id number] - [id number] Implanted:Qty: 1 on 05/08/2024 by Maged Monreal DO at OR [facility] Right: Back [employer] : PAIN MGMT 03/18/2026 [id number] / [id number] / documented as of this encounter Procedures Procedure Name Priority Date/Time Associated Diagnosis Comments BLOOD GAS, ARTERIAL Routine 07/03/2024 1 1:32 AM EST 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) BASIC SPIROMETRY Routine 07/03/2024 11:2 0 AM EST 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) documented in this encounter Results * (ABNORMAL) BLOOD GAS, ARTERIAL (07/03/2024 11:32 [...] MD LAB BLOOD ORDERABLES Final Result LABORATORY [facility] [address] [place] [address] documented in this encounter Visit Diagnoses Diagnosis 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)- Primary 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
--- OUTSIDE RECORDS SUMMARY | 2024-08-06 22:41 | External Medical Summary | Summary of Care ---
Author Name Unknown Organization [facility] Address [address] [place] [address] Phone [phone] Care Team Providers Care Fire Manager Name Role Phone Leon Galvan DO Primary Care Provider [phone] Reason for Visit * Reason Onset Date Comments Test Results 06/30/2024 Encounter Details Date Type Department Care Team (Late st Contact Info) Description 06/30/2024 Telephone Cardiology, [facility] [address] [id number] Poncho Robledo DO [address] [place] [address] Test Results Allergies Active Allergy Reactions Criticality [...] systolic, due to CAD (HCC),Old [place] (myocardial infarction),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 100 Tablet 3 11/21/2023 10:41 AM EDT 3 Active Ezetimibe 10 MG Oral Tablet (Zetia)Indicatio ns:Dyslipidemia, goal LDL below 70 TAKE ONE TABLET BY MOUTH DAILY 100 Tablet 3 11/21/2023 10:41 AM EDT 3 Active Nitroglycerin 0.4 MG Sublingual Tablet Sublingual (Nitrostat)Indic ations:Coronary artery disease of mcgrath artery of mcgrath heart with stable angina pectoris (HCC) Place [...] mcgIndications:Vitamin B 12 deficiency 1000 mcg IM [id number] 08/17/2023 07/18/2024 Active documented as of this [...] h autonomic neuropathy 08/17/2023 09/17/2023 Atherosclerosis of mcgrath co ronary artery without angina pectoris 08/17/2023 [...] 06/30/2024 3:38 PM EST Sent patient a Sinobpo message to make aware. ----- Message from Poncho Robledo DO sent at 06/30/2024 3:38 PM EST ----- Carotid duplex demonstrates mild carotid vascular disease. Continue current medications. Proceed with CT surgery evaluation as scheduled. documented in this encounter Plan of Treatment Upcoming Encounters Date Type Department Care Team (Late st Contact Info) Description 07/03/2024 8:30 AM EST Office Visit Cardiothoracic Surg [facility] [address] [place] [address] Jayden Mejias MD [address] [place] [address] 07/08/2024 2:00 PM EST Office Visit Cardiology, [facility] [place] [address] Poncho Robledo DO [address] [place] [address] 09/17/2024 8:40 AM EDT Office Visit Family Practice [address] [place] [address] 293 [place] [address] Leon Galvan, 293 [place] [address] 09/18/2024 8:00 AM EDT Office Visit Cardiology, [facility] 132 [facility] [place] [address] Alexandra Mackenzie CRNP [facility] [address] 10/10/2024 3:30 PM EDT Imaging Radiology [facility] 132 [facility] [place] [address] 10/17/2024 9:00 AM EDT Office Visit Urology, [place] [address] [place] [address] Johnathon Kent PA-C [address] [place] [address] Health Maintenance Due Date Last Done Comments [...] this encounter Medical Devices Implanted Type Area Cow Puncher Device Identifier Shelf Expiration Date Model / Serial / Lot Lead Kit Trial [id number] 50cm - [id number] - [id number] Implanted:Qty: 1 on 05/08/2024 by Maged Monreal DO at OR [facility] Left: Back [employer] : PAIN MGMT 03/18/2026 [id number] 50E0 / [id number] / Lead Kit Trial [id number] 50cm - [id number] - [id number] Implanted:Qty: 1 on 05/08/2024 by Maged Mnoreal DO at OR [facility] Right: Back [employer] : PAIN MGMT 03/18/2026 [id number] / [id number] / documented as of this encounter Care Teams Fire Manager Relationship Specialty Start Date End Date Leon Galvan DO [address] [place] [address] PCP - General Internal Medicine 12/28/23 documented as of this encounter
--- OUTSIDE RECORDS SUMMARY | 2024-08-06 22:41 | External Medical Summary | Summary of Care ---
Author Name Unknown Organization [facility] Address [address] [place] [address] Phone [phone] Care Team Providers Care Probation Supervisor Name Role Phone Leon Galvan DO Primary Care Provider [phone] Reason for Visit * Reason Comments Cardiac Rehab Encounter Details Date Type Department Care Team (Late st Contact Info) Description 06/18/2024 9:00 AM EST Telemedicine Cardiac Rehab [facility], [address] [place] [address] Advanced, Virtual Cardiac Rehab [address] [place] [address] [place] [address] History of coronary artery stent placement* Allergies [...] (Lasix)Indicatio ns:Heart failure, systolic, due to CAD ([facility]) take one pill by mouth [...] disease,Heart failure, systolic, due to CAD (HCC),Old [place] (myocardial infarction),Medical Administrative lawrence stable 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 100 Tablet 3 11/21/2023 10:41 AM EDT 3 Active Ezetimibe 10 MG Oral Tablet (Zetia)Indicatio ns:Dyslipidemia, goal LDL below 70 TAKE ONE TABLET BY MOUTH DAILY 100 Tablet 3 11/21/2023 10:41 AM EDT 3 Active Nitroglycerin 0.4 MG Sublingual Tablet Sublingual (Nitrostat)Indic ations:Coronary artery disease of red devil artery of red devil heart with stable angina pectoris (HCC) Place [...] mcgIndications:Vitamin B 12 deficiency 1000 mcg IM [id number] 08/17/2023 07/18/2024 Active documented as of this [...] CG/0.3 mL, 12 YRS AND ABOVE, IM ([facility] 06/16/2024,05/07/2023 COVID-19, mRNA, LNP-s, PF, [...] Notes * Maryuri Sánchez EPC - 06/28/2024 3:35 PM EST Session Encounter: Patient is participating in [facility]'s Intensive Cardiac Rehab Program in partnership with [employer] is a specialized company that specializes in providing virtual cardiac rehab services. Session #21 completed. Please refer to scan document for session details. Session type: Exercise Individual Session duration: 35 minutes documented in this encounter Plan of Treatment Upcoming Encounters Date Type Department Care Team (Late st Contact Info) Description 06/30/2024 11:00 AM EST Cardiac Studies [address], [address] [address] 06/30/2024 1:00 PM EST Imaging Vascular Lab, [facility] II 2nd Floor, [address] [address] 07/03/2024 8:30 AM EST Office Visit Cardiothoracic Surg [facility], [place] [address] [place] [address] Jayden Mejias MD [address] [place] [address] 07/08/2024 2:00 PM EST Office Visit Cardiology, [address] [place] [address] Poncho Robledo, DO [address] [facility] [place] [address] 09/17/2024 8:40 AM EDT Office Visit Family Practice [address] [place] [address] 293 [place] [address] Leon Galvan, DO 293 [place] [address] 09/18/2024 8:00 AM EDT Office Visit Cardiology, [facility] 132 [facility] [place] [address] Alexandra Mackenzie CRNP 132 [facility] [place] [address] 10/10/2024 3:30 PM EDT Imaging Radiology [facility] 132 [facility] [place] [address] 10/17/2024 9:00 AM EDT Office Visit Urology, [place] [address] [place] [address] Johnathon Kent PA-C [address] [place] [address] Health Maintenance Due Date Last Done Comments [...] this encounter Medical Devices Implanted Type Area Funeral Pre Arrangement Specialist Device Identifier Shelf Expiration Date Model / Serial / Lot Lead Kit Trial [id number] 50cm - [id number] - [id number] Implanted:Qty: 1 on 05/08/2024 by Maged Monreal, at OR [facility] Left: Back [employer] : PAIN MGMT 03/18/2026 [id number] 50E0 / [id number] / Lead Kit Trial [id number] 50cm - [id number] - [id number] Implanted:Qty: 1 on 05/08/2024 by Maged Monreal DO at OR [facility] Right: Back [employer] : PAIN MGMT 03/18/2026 [id number] 50E0 / [id number] / documented as of this encounter Visit Diagnoses Diagnosis History of coronary artery stent placement- Primary Postsurgical percutaneous transluminal coronary angioplasty status documented in this encounter Care Teams Probation Supervisor Relationship Specialty Start Date End Date Leon Galvan DO 293 [place] [address] PCP - General Internal Medicine 12/28/23 documented as of this encounter
--- OUTSIDE RECORDS SUMMARY | 2024-08-06 22:41 | External Medical Summary ---
Author Name Unknown Address Unknown Organization [id number]:LABOR[facility]ORY [facility] - 100 [facility] [address] Laboratory Report Ordering Provider Test Date Status LESTER ARM 07/03/2024 11:32:00 Final Observation Date Value Abnormality Reference (Units ) Status Body temperature 07/03/2024 11:32:00 37.0 (C) Final pH of Arterial blood 07/03/2024 11:32:00 7.398 7.350-7.450 (units) Final Carbon dioxide [Partial pressure] in Arterial blood 07/03/2024 11:32:00 39.1 35.0-45.0 (mmHg) Final Oxygen [Partial pressure] in Arterial blood 07/03/2024 11:32:00 85.0 75.0-100.0 (mmHg) Final Base excess, Arterial 07/03/2024 11:32:00 -0.5 -2.0-2.0 (mmol/L) Final Hemoglobin [Mass/volume] in Blood by Oximetry 07/03/2024 11:32:00 13.6 Below low normal 14.0-16.8 (g/dL) Final Oxyhemoglobin, Arterial (FO2HB) 07/03/2024 11:32:00 94.0 94.0-99.0 (% total Hgb) Final Carboxyhemoglobin 07/03/2024 11:32:00 2.5 Above high normal <=1.5 (% total Hgb) Final Smokers: 0-9.0 % Methemoglobin 07/03/2024 11:32:00 0.6 <= 1.5 (% total Hgb) Final Deoxyhemoglobin/Hemoglobin .total in Arterial blood 07/03/2024 11:32:00 2.9 0.0 -5.0 (% total Hgb) Final Oxygen content in Arterial blood 07/03/2024 11:32:00 18.0 15.0-24.0 (%vol) Ashwini l Oxygen/Total gas setting [Volume Fraction] Ventilator 07/03/2024 11:32:00 Not Provided (%) Final O2 FLOW, ARTERIAL - [facility] 07/03/2024 11:32:00 Not Provided (L/min) Final Bicarbonate, Venous, POC (i-STAT) 07/03/2024 11:32:00 23.6 23.0-31.0 (mmol/L) Fi nal Performing Location [facility] - [address] [facility] [address]
--- OUTSIDE RECORDS SUMMARY | 2024-08-06 22:41 | External Medical Summary | Summary of Care ---
Author Name Unknown Organization [facility] Address [address] [place] [address] Phone [phone] Care Team Providers Care Servomechanism Assembler Name Role Phone Leon Galvan DO Primary Care Provider [phone] Reason for Visit * Reason Comments Cardiac Rehab Encounter Details Date Type Department Care Team (Late st Contact Info) Description 06/20/2024 9:00 AM EST Telemedicine Cardiac Rehab [facility], [address] [place] [address] Advanced, Virtual Cardiac Rehab [address] [place] [address] [place] [address] History of coronary artery stent placement* Allergies [...] (Lasix)Indicatio ns:Heart failure, systolic, due to CAD ([facility]) take one pill by mouth [...] disease,Heart failure, systolic, due to CAD (HCC),Old [place] (myocardial infarction),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 100 Tablet 3 11/21/2023 10:41 AM EDT 3 Active Ezetimibe 10 MG Oral Tablet (Zetia)Indicatio ns:Dyslipidemia, goal LDL below 70 TAKE ONE TABLET BY MOUTH DAILY 100 Tablet 3 11/21/2023 10:41 AM EDT 3 Active Nitroglycerin 0.4 MG Sublingual Tablet Sublingual (Nitrostat)Indic ations:Coronary artery disease of nenana artery of nenana heart with stable angina pectoris (HCC) Place [...] mcgIndications:Vitamin B 12 deficiency 1000 mcg IM [id number] 08/17/2023 07/18/2024 Active documented as of this [...] h autonomic neuropathy 08/17/2023 09/17/2023 Atherosclerosis of nenana co ronary artery without angina pectoris 08/17/2023 [...] CG/0.3 mL, 12 YRS AND ABOVE, IM ([employer] [facility] 06/16/2024,05/07/2023 COVID-19, mRNA, LNP-s, PF, B ooster, [...] Notes * Maryuri Sánchez EPC - 06/28/2024 3:40 PM EST Session Encounter: Patient is participating in [facility]'s Intensive Cardiac Rehab Program in partnership with [employer] is a specialized company that specializes in providing virtual cardiac rehab services. Session #22 completed. Please refer to scan document for session details. Session type: Exercise Individual Session duration: 35 minutes documented in this encounter Plan of Treatment Upcoming Encounters Date Type Department Care Team (Late st Contact Info) Description 06/30/2024 11:00 AM EST Cardiac Studies Cardiac Studies, [address] [address] 06/30/2024 1:00 PM EST Imaging Vascular Lab, [facility] II 2nd Floor, [address] [address] 07/03/2024 8:30 AM EST Office Visit Cardiothoracic Surg [facility], [place] [address] [place] [address] Jayden Mejias MD 100 [address] [facility] [place] [address] 07/08/2024 2:00 PM EST Office Visit Cardiology, [address] [place] [address] Poncho Robledo, DO [address] [facility] [place] [address] 09/17/2024 8:40 AM EDT Office Visit Family Practice [address] [place] [address] 293 [place] [address] Leon Galvan, DO 293 [place] [address] 09/18/2024 8:00 AM EDT Office Visit Cardiology, [facility] 132 [facility] [place] [address] Alexandra Mackenzie CRNP 132 [facility] [place] [address] 10/10/2024 3:30 PM EDT Imaging Radiology [facility] 132 [facility] [place] [address] 10/17/2024 9:00 AM EDT Office Visit Urology, [place] [address] [place] [address] Johnathon Kent PA-C [address] [place] [address] Health Maintenance Due Date Last Done Comments [...] this encounter Medical Devices Implanted Type Area Neurophysiological Technician Device Identifier Shelf Expiration Date Model / Serial / Lot Lead Kit Trial [id number] 50cm - [id number] - [id number] Implanted:Qty: 1 on 05/08/2024 by Maged Monreal, at OR [facility] Left: Back [employer] : PAIN MGMT 03/18/2026 [id number] 50E0 / [id number] / Lead Kit Trial [id number] 50cm - [id number] - [id number] Implanted:Qty: 1 on 05/08/2024 by Maged Monreal DO at OR [facility] Right: Back [employer] : PAIN MGMT 03/18/2026 [id number] 50E0 / [id number] / documented as of this encounter Visit Diagnoses Diagnosis History of coronary artery stent placement- Primary Postsurgical percutaneous transluminal coronary angioplasty status documented in this encounter Care Teams Servomechanism Assembler Relationship Specialty Start Date End Date Leon Galavn DO 293 [place] [address] PCP - General Internal Medicine 12/28/23 documented as of this encounter
--- OUTSIDE RECORDS SUMMARY | 2024-08-06 22:41 | External Medical Summary ---
Author Name Unknown Address Unknown Organization [id number]:[facility]ATORY [facility] [address] [facility] [address] [facility] [address] Laboratory Report Ordering Provider Test Date Status LESTER RAM 07/03/2024 10:25:11 Final Observation Date Value Abnormality Reference (Units ) Status Staphylococcus aureus methicillin resistance SCCmec [Presence] in Nose by RAPHAEL with probe detection 07/03/2024 10:25:11 Negative Negative Final No Methicillin resistant Sta phylococcus aureus detected by PCR (amplified probe). Methicillin susceptible Stap hylococcus aureus DNA [Presence] in Specimen by RAPHAEL with probe detection 07/03/2024 10:25:11 Negative Negative Final No Staphylococcus aureus det ected by PCR (amplified probe). Performing Location [facility] - [address] [facility] [address]
--- OUTSIDE RECORDS SUMMARY | 2024-08-06 22:42 | External Medical Summary | Summary of Care ---
Author Name Unknown Organization [facility] Address [address] [place] [address] Phone [phone] Care Team Providers Care Deputy Director Of Finance Name Role Phone Leon Galvan DO Primary Care Provider [phone] Encounter Details Date Type Department Care Team (Late st Contact Info) Description 06/25/2024 Result Scan Unspecified Department Alexandra Mackenzie CRNP [address] [place] [address] <No scans attached> Allergies Active Allergy Reactions Criticality Noted Date Comments Codeine Other (Please comment) High 09/08/2013 Severe Skin peeling documented as of this encounter (statuses as of 06/27/2024) Medications oxygen GASIndications:C hronic coronary artery disease,COPD, [...] systolic, due to CAD (HCC),Old [place] (myocardial infarction),Reconciliation Analyst lawrence stable 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 100 Tablet 3 11/21/2023 10:41 AM EDT 3 Active Ezetimibe 10 MG Oral Tablet (Zetia)Indicatio ns:Dyslipidemia, goal LDL below 70 TAKE ONE TABLET BY MOUTH DAILY 100 Tablet 3 11/21/2023 10:41 AM EDT 3 Active Nitroglycerin 0.4 MG Sublingual Tablet Sublingual (Nitrostat)Indic ations:Coronary artery disease of [place] artery of [place] heart with stable angina pectoris (HCC) Place [...] mcgIndications:Vitamin B 12 deficiency 1000 mcg IM [id number] 08/17/2023 07/18/2024 Active documented as of this encounter (statuses as of 06/27/2024) Active Problems Problem Noted Date Diagnosed Date [...] as of this encounter (statuses as of 06/27/2024) Resolved Problems Problem Noted Date Diagnosed Date Resolved Date Type 2 diabetes mellitus wit h autonomic neuropathy 08/17/2023 09/17/2023 Atherosclerosis of [place] co ronary artery without angina pectoris 08/17/2023 [...] as of this encounter (statuses as of 06/27/2024) Immunizations Name Administration Dates Next Due COVID-19 [...] 11:00 AM EST Cardiac Studies Cardiac Studies, [facility] [address] [facility] [place] [address] 06/30/2024 1:00 PM EST Imaging Vascular Lab, [facility] II 2nd Floor, [place] [address] [facility] [place] [address] 07/03/2024 8:30 AM EST [facility] [address] [place] [address] Jayden Mejias MD [address] [place] [address] 09/17/2024 8:40 AM EDT Office Visit Family Practice [address] [place] [address] [address] [place] [address] Leon Galvan, [address] [place] [address] 09/18/2024 8:00 AM EDT Office Visit Cardiology, [facility] [address] [facility] [place] [address] Alexandra Mackenzie CRNP 132 [facility] [place] [address] 10/10/2024 3:30 PM EDT Imaging Radiology [facility] 132 [facility] [place] [address] 10/17/2024 9:00 AM EDT Office Visit Urology, [facility] [address] [place] [address] Johnathon Kent PA-C [address] [facility] [place] [address] Health Maintenance Due Date Last Done Comments Cologuard 1995 Sigmoidoscopy 1995 Fecal Occult Blood Test 12/20/2008 12/21/2007 *ADVANCE DIRECTIVE NOT ON FILE 2019 DISCUSS TOBACCO CESSATION (REFER TO SMARTSET #3299) 06/18/2024 06/18/2023, 01/24/2017 Adult Wellness Visit 02/17/2025 [...] this encounter Medical Devices Implanted Type Area Railroad Commissioner Device Identifier Shelf Expiration Date Model / Serial / Lot Lead Kit Trial [id number] 50cm - [id number] - [id number] Implanted:Qty: 1 on 05/08/2024 by Maged Monreal DO at OR [facility] Left: Back [employer] : PAIN MGMT 03/18/2026 [id number] 50E0 / [id number] / Lead Kit Trial [id number] 50cm - [id number] - [id number] Implanted:Qty: 1 on 05/08/2024 by Maged Monreal DO at OR [facility] Right: Back [employer] : PAIN MGMT 03/18/2026 [id number] 50E0 / [id number] / documented as of this encounter Procedures Procedure Name Priority Date/Time Associated Diagnosis Comments CARDIAC CATH SCANNED RESULT 06/25/2024 documented in this encounter Results * CARDIAC CATH SCANNED RESULT (06/25/2024) 06/25/2024 us Alexandra CROCKER CARD CATH Final R esult documented in this encounter Care Teams Deputy Director Of Finance Relationship Specialty Start Date End Date Leon Galvan DO [address] [place] [address] PCP - General Internal Medicine 12/28/23 documented as of this encounter
--- OUTSIDE RECORDS SUMMARY | 2024-08-06 22:42 | External Medical Summary | Summary of Care ---
Author Name Unknown Organization [facility] Address [address] [place] [address] Phone [phone] Care Team Providers Care Service Specialist Name Role Phone Leon Galvan DO Primary Care Provider [phone] Reason for Referral * Evaluate & Treat - Unlimited Visits (Within 10 days (routine)) - Authorized Specialty Diagnoses / Procedures Referred By Contact Referred To Contact Cardiovascular Surgery / Cardiothoracic Surgery Diagnoses Chronic coronary artery disease Heart failure, systolic, due to CAD (HCC) Dyslipidemia, goal LDL below 70 Poncho Robledo DO [address] [place] [address] Phone: tel: fax: Referral ID Status Reason Start Date Expiration Date Visits Requested Visits Authorized [id number] Authorized Specialty Services Required 4 [phone] Question Answer Referral Priority Within 10 days (routine) Where should this appointment be scheduled? [facility] Comments Cardiac catheterization performed 06/25/2024 demonstrating multivessel coronary disease. Cardiothoracic surgery recommended. Case discussed with cardiothoracic surgeon. Please schedule resting 2D transthoracic echocardiogram and carotid duplex. Tentative plan for cardiothoracic surgery consultation 07/03/2024. Reason for Visit * Reason Onset Date Comments Test Results 06/25/2024 Encounter Details Date Type Department Care Team (Late st Contact Info) Description 06/25/2024 Telephone Cardiology, [facility] [address] [place] [address] Poncho Robledo DO [address] [place] [address] Test Results Allergies Active Allergy Reactions Criticality Noted Date Comments Codeine Other (Please comment) High 09/08/2013 Severe Skin peeling documented as of this encounter (statuses as of 06/25/2024) Medications oxygen GASIndications:C hronic coronary artery disease,COPD, [...] disease,Heart failure, systolic, due to CAD (HCC),Old [place] (myocardial infarction),Fittings Tightener lawrence stable 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 100 Tablet 3 11/21/2023 10:41 AM EDT 3 Active Ezetimibe 10 MG Oral Tablet (Zetia)Indicatio ns:Dyslipidemia, goal LDL below 70 TAKE ONE TABLET BY MOUTH DAILY 100 Tablet 3 11/21/2023 10:41 AM EDT 3 Active Nitroglycerin 0.4 MG Sublingual Tablet Sublingual (Nitrostat)Indic ations:Coronary artery disease of [place] artery of [place] heart with stable angina pectoris (HCC) Place [...] mcgIndications:Vitamin B 12 deficiency 1000 mcg IM [id number] 08/17/2023 07/18/2024 Active documented as of this encounter (statuses as of 06/25/2024) Active Problems Problem Noted Date Diagnosed Date [...] failure, systolic, due to CAD 09/08/2013 Old [place] (myocardial infarction) 09/08/2013 Dyslipidemia, goal LDL below 70 06/15/2009 Overview (06/15/2009): Per Lipid Taxonomy. Esophageal reflux 12/03/2007 BPH without obstruction/lower urinary tract symp toms 08/03/2006 Tobacco use disorder 06/03/2002 documented as of this encounter (statuses as of 06/25/2024) Resolved Problems Problem Noted Date Diagnosed Date Resolved Date Type 2 diabetes mellitus wit h autonomic neuropathy 08/17/2023 09/17/2023 Atherosclerosis of [place] co ronary artery without angina pectoris 08/17/2023 [...] as of this encounter (statuses as of 06/25/2024) Immunizations Name Administration Dates Next Due COVID-19 [...] No 06/18/2023 Does the household have a up health systemr source of income? (Household - for ages [...] Telephone Encounter - Ted Marcial LPN - 06/25/2024 1:46 PM EST Orders placed in separate encounter and scheduled. Referral placed. * Telephone Encounter - Poncho Robledo DO - 06/25/2024 1:00 PM EST Cardiac catheterization performed 06/25/2024 demonstrating multivessel coronary disease. Cardiothoracic surgery recommended. Case discussed with cardiothoracic surgeon. Please schedule resting 2D transthoracic echocardiogram and carotid duplex. Tentative plan for cardiothoracic surgery regepgzkafmp89/26/2024. documented in this encounter Plan of Treatment Upcoming Encounters Date Type Department Care Team (Late st Contact Info) Description 06/26/2024 11:30 AM EST Office Visit Cardiothoracic Surg [facility] [place] [address] [place] [address] Jayden Mejias MD [address] [place] [address] 06/30/2024 11:00 AM EST Cardiac Studies Cardiac Studies, [facility] 132 [facility] [place] [address] 06/30/2024 1:00 PM EST [facility] 132 [facility] [place] [address] 09/17/2024 8:40 AM EDT Office Visit Family Practice [address] [place] [address] [address] [place] [address] Leon Galvan, [address] [place] [address] 09/18/2024 8:00 AM EDT Office Visit Cardiology, [facility] 132 [facility] [place] [address] Alexandra Mackenzie CRNP 132 [facility] [place] [address] 10/10/2024 3:30 PM EDT Imaging Radiology [facility] 132 [facility] [place] [address] 10/17/2024 9:00 AM EDT Office Visit Urology, [place] [address] [place] [address] Johnathon Kent PA-C [address] [place] [address] Scheduled Referrals Name Type Priority Associated Diagnoses Order Schedule CARDIOVASCULAR SURGERY REFERRAL OP Referral Within 10 days (routine) Chronic coronary artery disease Heart failure, systolic, due to CAD (HCC) Dyslipidemia, goal LDL below 70 Ordered: 06/25/2024 Health Maintenance Due Date Last Done Comments [...] this encounter Medical Devices Implanted Type Area Percolator Operator Device Identifier Shelf Expiration Date Model / Serial / Lot Lead Kit Trial [id number] 50cm - [id number] - [id number] Implanted:Qty: 1 on 05/08/2024 by Maged Monreal DO at OR [facility] Left: Back [employer] : PAIN MGMT 03/18/2026 [id number] 50E0 / [id number] / Lead Kit Trial [id number] 50cm - [id number] - [id number] Implanted:Qty: 1 on 05/08/2024 by Maged Monreal DO at OR [facility] Right: Back [employer] : PAIN MGMT 03/18/2026 [id number] 50E0 / [id number] / documented as of this encounter Visit Diagnoses Diagnosis Chronic coronary artery disease- Primary Coronary atherosclerosis of unspecified type of vessel, kiana or graft Heart failure, systolic, due to CAD (HCC) Unspecified systolic heart failure Dyslipidemia, goal LDL below 70 Other and unspecified hyperlipidemia documented in this encounter Care Teams Service Specialist Relationship Specialty Start Date End Date Leon Galvan DO [address] [place] [address] PCP - General Internal Medicine 12/28/23 documented as of this encounter
--- OUTSIDE RECORDS SUMMARY | 2024-08-06 22:42 | External Medical Summary | Summary of Care ---
Author Name Unknown Organization [facility] Address [address] [place] [address] Phone [phone] Care Team Providers Care Outsoles Channel Opener Name Role Phone Leon Galvan DO Primary Care Provider [phone] Reason for Visit * Reason Onset Date Comments Advice 06/25/2024 Heart cath Encounter Details Date Type Department Care Team (Late st Contact Info) Description 06/25/2024 [facility]phone [facility] [address] [place] [address] Leon Galvan DO [address] [place] [address] Advice (Heart cath) Allergies Active Allergy Reactions Criticality Noted Date [...] failure, systolic, due to CAD ([facility]) take one pill by mouth once [...] systolic, due to CAD (HCC),Old [place] (myocardial infarction),Ice Cream Vendor lawrence stable 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 100 Tablet 3 11/21/2023 10:41 AM EDT 3 Active Ezetimibe 10 MG Oral Tablet (Zetia)Indicatio ns:Dyslipidemia, goal LDL below 70 TAKE ONE TABLET BY MOUTH DAILY 100 Tablet 3 11/21/2023 10:41 AM EDT 3 Active Nitroglycerin 0.4 MG Sublingual Tablet Sublingual (Nitrostat)Indic ations:Coronary artery disease of [place] artery of [place] heart with stable angina pectoris (HCC) Place [...] mcgIndications:Vitamin B 12 deficiency 1000 mcg IM [id number] 08/17/2023 07/18/2024 Active documented as of this [...] h autonomic neuropathy 08/17/2023 09/17/2023 Atherosclerosis of [place] co ronary artery without angina pectoris 08/17/2023 [...] Telephone Encounter - Leon Galvan DO - 06/25/2024 4:23 PM EST Noted. * Telephone Encounter - Mook George LPN - 06/25/2024 3:31 PM EST Currently scheduled 07/03 in [place] for heart surgery. Is waiting for carotid duplex to be done, cardiology is scheduling. Advised to stop smoking, states he has stopped now. Thank you * Telephone Encounter - Tia Lucero OSA - 06/25/2024 2:20 PM EST Would like to speak to mook * Telephone Encounter - Tia Lucero OSA - 06/25/2024 11:41 AM EST Got heart cath, Now will be going to [place] for bypass Would like to talk to Mook documented in this encounter Plan of Treatment Upcoming Encounters Date Type Department Care Team (Late st Contact Info) Description 06/30/2024 11:00 AM EST Cardiac Studies [facility] Studies, [facility] [place] [address] 06/30/2024 1:00 PM EST Imaging Vascular Lab, [facility] II 2nd Floor, [place] 132 [facility] [place] [address] 07/03/2024 8:30 AM EST Office [facility] [place] [address] [place] [address] Jayden Mejias MD [address] [place] [address] 09/17/2024 8:40 AM EDT Office Visit Family Practice [address] [place] [address] [address] [place] [address] Leon Galvan, [address] [place] [address] 09/18/2024 8:00 AM EDT Office Visit Cardiology, [facility] [address] [place] [address] Alexandra Mackenzie CRNP [facility] [place] [address] 10/10/2024 3:30 PM EDT Imaging Radiology [facility] [place] [address] 10/17/2024 9:00 AM EDT Office Visit Urology, [place] [address] [place] [address] Johnathon Kent PA-C [address] [place] [address] Health Maintenance Due Date Last Done Comments Cologuard 1995 Sigmoidoscopy 1995 Fecal Occult Blood Test 12/20/2008 12/21/2007 *ADVANCE DIRECTIVE NOT ON FILE 2019 DISCUSS TOBACCO CESSATION (REFER TO SMARTSET #5121) 06/18/2024 06/18/2023, 01/24/2017 Adult Wellness Visit 02/17/2025 [...] this encounter Medical Devices Implanted Type Area Waste Paper Hammermill Operator Device Identifier Shelf Expiration Date Model / Serial / Lot Lead Kit Trial [id number] 50cm - [id number] - [id number] Implanted:Qty: 1 on 05/08/2024 by Maged Monreal DO at OR [facility] Left: Back [employer] : PAIN MGMT 03/18/2026 [id number] 50E0 / [id number] / Lead Kit Trial [id number] 50cm - [id number] - [id number] Implanted:Qty: 1 on 05/08/2024 by Maged Monreal DO at OR [facility] Right: Back [employer] : PAIN MGMT 03/18/2026 [id number] 50E0 / [id number] / documented as of this encounter Care Teams Outsoles Channel Opener Relationship Specialty Start Date End Date Leon Galvan DO [address] [place] [address] PCP - General Internal Medicine 12/28/23 documented as of this encounter
--- OUTSIDE RECORDS SUMMARY | 2024-08-07 03:10 | External Medical Summary | Summary of Care ---
Author Name Unknown Organization [facility] Address [address] [place] [address] Phone [phone] Care Team Providers Care Bight Maker Name Role Phone Leon Galvan DO Primary Care Provider [phone] Reason for Visit * Reason Comments Dosage Adjustment In Person (Anticoag Cl inic) Follow Up Encounter Details Date Type Department Care Team (Late st Contact Info) Description 08/01/2024 9:40 AM [facility] Pharmacy Family Practice [address] [phone] College, Pharmacist [address] [address] Medication management* Allergies Active Allergy Reactions Criticality Noted Date Comments Codeine Other (Please comment) High 09/08/2013 Severe Skin peeling documented as of this encounter (statuses as of 08/03/2024) Medications oxygen GASIndications: Chronic coronary artery disease,COPD, [...] the morning. 30 Tablet 07/30/19 25 Active rOPINIRole HCl 0.5 MG Oral [...] as of this encounter (statuses as of 08/03/2024) Active Problems Problem Noted Date Diagnosed Date [...] failure, systolic, due to CAD 09/08/2013 Old [place] (myocardial infarction) 09/08/2013 Dyslipidemia, goal LDL below 70 06/15/2009 Overview (06/15/2009): Per Lipid Taxonomy. Esophageal reflux 12/03/2007 BPH without obstruction/lower urinary tract symp toms 08/03/2006 Tobacco use disorder 06/03/2002 documented as of this encounter (statuses as of 08/03/2024) Resolved Problems Problem Noted Date Diagnosed Date [...] as of this encounter (statuses as of 08/03/2024) Immunizations Name Administration Dates Next Due COVID-19 [...] encounter Progress Notes * Franky Saldana, Patsy Mcgee, [facility] - 08/01/2024 9:40 AM EST Medication Therapy Disease Management Clinic - Medication Reconciliation Encounter Type: discussed with patient Med Bottles Available for Review: yes Med Rec Reason: Transition of Care Date of Admission: 07/08/24 to [facility] then 07/15/24 to [facility] then to rehab 07/22/24 Date of Discharge: 07/29/24 to home Reason for Admission: CABG with complications Medication changes during admission/on discharge: Added: amiodarone, potassium ch ER, warfarin for 30 days Modified: carvedilol decreased from 12.5mg BID to 3.125 mg BID, furosemide increased from 20 mg to 40 mg, pregabalin from TID to BID, ropinirole from 0.5mg TID to 0.25mg TID Discontinued: amlodipine 5mg, eliquis 5 mg, aspirin (already on clopidogrel, triple therapy only for 1 week), baclofen (due to confusion), febuxostat, isosorbide - do not restart bc CABG, lisinopril (due to hypoTN - recommended restart ARB when BP will allow), oxycodone, spironolactone (recommendedrestart on discharge) Does the patient currently have all of their medications in their home? Yes [x] Preferred pharmacy reviewed/updated [x] Problem list reviewed [x] Allergies reviewed and updated if needed [x] Drug interaction check completed [x] HEDIS list addressed Immunizations indicated: Up to date Medication Organization/Adherence: Has home care nurse or caregiver: Yes - [facility]. They are unsure if he has home health orPT/OT coming Patient uses a pill box/blister packs? Yes, refill(s) completed by self and Jhoana ([facility] nurse) When you are at home, how often do you miss doses of medications? Less than once a week however most of patient's med supply is from November 2023. How difficult is it for you to pay for your medications? Not difficult at all How often do you experience adverse effects from your medications? Never Labs/Vitals/Risk Scores: The ASCVD Risk score (Tamera COTTON, et al., 2019) failed to calculate for the following reasons: Risk score cannot be calculated because patient has a medical history suggesting prior/existing ASCVD BP Readings from Last 3 Encounters: 07/30/24 112/62 07/15/24 93/65 07/04/24 (!) 183/122 Recent Labs Units 07/18/24 0653 07/04/24 0916 06/16/24 1136 H[facility]IN [facility]C [facility] % 5.5 5.9* 6.0* Recent Labs Units 07/15/24 0430 07/14/24 0343 07/13/24 0443 ESTIMATED GLOMERULAR FILTRATION RATE - [facility] mL/min 59* 62 62 Serum creatinine: 1.3 mg/dL (H) 07/15/24 0430 Estimated creatinine clearance: 49.9 mL/min (A) Assessment: Medication discrepancies identified: Patient's medications all match the discharge med list from [facility] as jhoana had organized them for him. As noted above, most prior med bottles were from November 2023 which indicate that patient may not have been taking regularly prior to admission. Dose/frequency of medications appropriate for current renal function? yes Other medication problems identified: - patient's [facility] discharge summary indicated spironolactone should be restarted on discharge, however this was not on discharge instructions from either [facility] or Rehab, likely due to continued hypotension. Additionally, it was noted that patient needs to be on an ARB as well for his HF. Will continue to monitor BP and add back as tolerated. Plan: Immunizations facilitated: None Patient education provided: regarding need for compliance with medication regimen to keep his new bypasses open Referral pended for follow up management of: Tobacco Cessation Medication recommendations: - Completed the chart below for patient to use when filling pill box. - Continue to watch BP for opportunity to add spironolactone and SIMA/ARB - Patient to complete warfarin through 08/07, then switch back to Eliquis. Patient's prior eliquis bottle was kept with a few other discontinued meds (along with spironolactone, lisinopril) - Advised patient to call [phone] to try for free patches/lozenges to help with quitting smoking. Will make plan at appointment next week. - Patient reports no issues with RLS during day - discussed with PCP and will switch ropinirole to HS only. - Patient to start B12 per PCP - Patient states only occasionally GERD - continue pantoprazole and use famotidine only PRN. I spent a total of 30-39 minutes (exact time 37 mins) on the date of service in preparation, delivery, and documentation of the care provided to Henri Vigil excluding any time spent in the performance of separately billed services or time spent by another provider/QHP. Patsy Brown, [facility] Clinical Pharmacist - Welfare Eligibility Worker Medication Therapy Management Clinic 08/01/2024, 8:10 AM Chart below provided to patient to fill pill box: Why you take it AM Noon Bedtime Medication Instructions Vitamin B12 1 B-12-SL 1000 MCG Sublingual Tablet Sublingual (Cyanocobalamin) Place 1,000 mcg under the tongue in the morning. Restless leg 1 rOPINIRole HCl 0.5 MG Oral Tablet (Requip) Take 1 Tablet by mouth at bedtime. Heartburn 1 Pantoprazole Sodium 40 MG Oral Tablet Delayed Release (Protonix) Take 1 Tablet by mouthin the morning. Blood thinner for clot 1 1 Warfarin Sodium 1 MG Oral Tablet (Coumadin) Take 1 tablet by mouth dailyat night (until 08/07/24) Heart rhythm 1 Amiodarone HCl 200 MG Oral Tablet (Cordarone) Take 1 Tablet by mouth daily with breakfast. Heart rate and blood pressure 1 1 Carvedilol 3.125 MG Oral Tablet (Coreg) Take 1 Tablet by mouth 2 times a day with morning and evening meals. Potassium 2 Potassium Chloride Joyce ER 10 MEQ Oral Tablet Extended Release Take 2 Tablets by mouth in the morning. Water pill 1 Furosemide 40 MG Oral Tablet (Lasix) Take 1 Tablet by mouth in the morning. Nerve pain 1 1 Pregabalin 75 MG Oral Capsule (Lyrica) Take 1 Capsule by mouth in the morning and 1 Capsule before bedtime. Prostate 1 Tamsulosin HCl 0.4 MG Oral Capsule (Flomax) Take 1 Capsule by mouth at noon. Blood thinner for stroke 1 Clopidogrel Bisulfate 75 MG Oral Tablet (pLAVix) Take 1 Tablet by mouth in the morning. Cholesterol and to help bypass 1 Rosuvastatin Calcium 40 MG Oral Tablet (Crestor) Take 1 Tablet by mouth in the morning. Sleep 1 Mirtazapine 15 MG Oral Tablet (Remeron) Take 1 Tablet by mouth at bedtime. Depression 1 1 buPROPion HCl ER (SR) 150 MG Oral Tablet Extended Release 12 Hour (Wellbutrin SR) Take 1 Tablet by mouth in the morning and 1 Tablet before bedtime. Anxiety 1 1 busPIRone HCl 5 MG Oral Tablet (Buspar) Take 1 Tablet by mouth in the morning and 1 Tablet before bedtime. Prostate 1 Dutasteride 0.5 MG Oral Capsule (Avodart) Take 1 Capsule by mouth at noon . Cholesterol 1 Ezetimibe 10 MG Oral Tablet (Zetia) TAKE ONE TABLET BY MOUTH in the morning Pain if needed Acetaminophen 325 MG Oral Tablet Take 1-2 Tablets by mouth every 6 hours as needed Heartburn if needed Famotidine 20 MG Oral Tablet (Pepcid) Take 1 tablet by mouth daily only if needed for heartburn documented in this encounter Plan of Treatment Upcoming Encounters Date Type Department Care Team (Late st Contact Info) Description 08/05/2024 10:30 AM EST Telemedicine [facility] [address] [place] [address] [place] [address] [facility] [address] [place] [address] [place] [id number] 08/05/2024 1:00 PM EST Office Visit Family Practice [address] [place] [address] [address] [place] [address] Leon Galvan, 293 [facility] [address] 08/06/2024 12:30 PM EST Home Visit [facility], [facility] [address] [facility] [place] [address] Jhoana Fried RN 132 [facility] [place] [address] 08/20/2024 10:45 AM EST Office Visit Cardiothoracic Surg [facility] [address] [place] [address] Jayden Galvan MD [address] [place] [address] 09/02/2024 11:40 AM EST Office Visit Pharmacy, [facility] [address] [facility] [place] [address] [facility] 132 [facility] [place] [address] 09/17/2024 8:40 AM EDT Office Visit Family Practice [address] [place] [address] [address] [place] [phone] Leon Galvan, 293 [facility], [place] [address] 09/18/2024 8:00 AM EDT Office Visit Cardiology, [facility] [address] [facility] [place] [address] Alexandra Mackenzie CRNP [address] [place] [id number] 09/29/2024 9:00 AM EDT Home Visit [facility], [facility] [address] [place] [place] [address] Pito Rodriguez PA-C [address] [place] [id number] 10/10/2024 3:30 PM EDT Imaging Radiology [facility] [address] [place] [phone] 10/17/2024 9:00 AM EDT Office Visit Urology, [place] [address] [place] [address] Johnathon Kent PA-C [address] [place] [address] 02/06/2025 9:30 AM EDT Office Visit Cardiology, [facility] [address] [place] [address] Poncho Robledo DO [address] [place] [address] Health Maintenance Due Date Last Done Comments Cologuard 1995 Sigmoidoscopy 1995 Fecal Occult Blood Test 12/20/2008 12/21/2007 *ADVANCE DIRECTIVE NOT ON FILE 2019 DISCUSS TOBACCO CESSATION (REFER TO SMARTSET #3291) 06/18/2024 06/18/2023, 01/24/2017 Adult Wellness Visit 02/17/2025 02/18/2024, 10/31/2022, 08/17/2021 Depression Screening 02/17/2025 02/18/2024, 01/02/20 24 O2 ASSESSMENT COMPLETED IN PAST YEAR FOR COPD 07/08/2025 07/08/2024 GFR 08/01/2025 08/01/2024, 01/2025, 07/14/2024, Additional history exists Albumin/Creatinine Ratio 08/17/2026 024, [...] this encounter Medical Devices Implanted Type Area Hardwood Floor Finisher Device Identifier Shelf Expiration Date Model / Serial / Lot Lead Kit Trial [id number] 50cm - [id number] - [id number] Implanted:Qty: 1 on 05/08/2024 by Maged Monreal DO at OR [facility] Left: Back Muxlim : PAIN MGMT 03/18/2026 [id number] 50E0 / [id number] / Lead Kit Trial [id number] 50cm - [id number] - [id number] Implanted:Qty: 1 on 05/08/2024 by Maged Monreal DO at OR [facility] Right: Back [employer] : PAIN MGMT 03/18/2026 [id number] 50E0 / [id number] / Suture Steel 6 B&S19 M654g - [id number] Implanted:Qty: 1 on 07/08/2024 by Jayden Galvan MD at [place] [facility] N/A: Sternum JNJ : [employer] 03/08/2029 M654G / / 103BLE Marker Coronary - [id number] Implanted:Qty: 1 on 07/08/2024 by Jayden Galvan MD at OR [facility] N/A: Heart [employer] 05/08/2027 [facility] / / [id number] Marker Coronary - [id number] Implanted:Qty: 1 on 07/08/2024 by Jayden Galvan MD at OR [facility] N/A: Heart [employer] 06/07/2027 [facility] / / [id number] documented as of this encounter Visit Diagnoses Diagnosis Medication management- Primary Encounter for long-term (current) use of other medications documented in this encounter Advance Directives * Full Code (Latest Code Status on File) Date Activated Date Inactivated Comments 07/08/2024 12:14 PM 07/15/2024 5:39 PM This order reflects the patients wishes and were consensually agreed upon. Question Answer Comments Discussion of Advance Directives occurred with: Patient Care Teams Bight Maker Relationship Specialty Start Date End Date Leon Galvan DO [address] [facility] [place] [address] PCP - General Internal Medicine 12/28/23 documented as of this encounter
--- OUTSIDE RECORDS SUMMARY | 2024-08-07 03:10 | External Medical Summary | Summary of Care ---
Author Name Unknown Organization [facility] Address [address] [place] [address] Phone [phone] Care Team Providers Care Other Spatial Scientist Name Role Phone Leon Galvan DO Primary Care Provider [phone] Reason for Visit * Reason Comments Dosage Adjustment In Person (Anticoag Cl inic) Follow Up Encounter Details Date Type Department Care Team (Late st Contact Info) Description 08/01/2024 9:40 AM [facility] Pharmacy Family Practice [address] [phone] College, Pharmacist [address] [address] Medication management* Allergies Active Allergy Reactions Criticality [...] 4 07/08/2024 Coronary artery disease invo lving [place] coronary artery of [place] heart with unstable angina pectoris 07/03/2024 Vitamin [...] h autonomic neuropathy 08/17/2023 09/17/2023 Atherosclerosis of [place] co ronary artery without angina pectoris 08/17/2023 [...] Progress Notes * Franky Saldana, Patsy Mcgee, [facility] - 08/01/2024 9:40 AM EST Medication Therapy Disease Management Clinic - Medication Reconciliation Encounter Type: discussed with patient Med Bottles Available for Review: yes Med Rec Reason: Transition of Care Date of Admission: 07/08/24 to [facility] then 07/15/24 to [facility] then to rehab 07/22/24 Date of [...] 07/04/24 0916 06/16/24 1136 [facility] 5.5 5.9* 6.0* Recent Labs Units 07/15/24 0430 07/14/24 0343 07/13/24 0443 ESTIMATED GLOMERULAR FILTRATION RATE - [facility] mL/min 59* 62 62 Serum creatinine: 1.3 mg/dL (H) 07/15/24 0430 Estimated creatinine clearance: 49.9 mL/min (A) Assessment: Medication discrepancies identified: Patient's medications all match the discharge med list from [facility] as jhoana had organized them for him. As noted above, most prior med bottles were from November 2023 which indicate that patient may not have been taking regularly prior to admission. Dose/frequency of medications appropriate for current renal function? yes Other medication problems identified: - patient's [facility] discharge summary indicated spironolactone should be restarted on discharge, however this was not on discharge instructions from either [facility] or Rehab, likely due to continued hypotension. [...] spironolactone, lisinopril) - Advised patient to call [phone] to try for free patches/lozenges to help [...] time spent by another provider/QHP. Patsy Brown, [facility] Clinical Pharmacist - Child Nutrition Assistant Medication Therapy Management Clinic 08/01/2024, 8:10 AM [...] AM EST Telemedicine [facility] [address] [place] [address] [place] [address] [facility], [facility] Card[facility] Re[facility] [address] [place] [address] [place] [address] 08/05/2024 1:00 PM EST Office Visit Family Practice [address] [place] [address] [address] [place] [address] Leon Galvan, 293 [place] [address] 08/06/2024 12:30 PM EST Home Visit [facility], [facility] 132 [facility] [place] [address] Jhoana Fried RN 132 [facility] [place] [address] 08/20/2024 10:45 AM EST Office Visit Cardiothoracic Surg [facility] [address] [place] [address] Jayden Galvan MD [address] [place] [address] 09/02/2024 11:40 AM EST Office Visit Pharmacy, [facility] 132 [facility] [place] [address] [facility] 132 [facility] [place] [address] 09/17/2024 8:40 AM EDT Office Visit Family Practice [address] [place] [address] [address] [place] [phone] Leon Galvan, 293 [facility], [place] [address] 09/18/2024 8:00 AM EDT Office Visit Cardiology, [facility] [address] [facility] [place] [address] Alexandra Mackenzie CRNP [address] [place] [phone] 09/29/2024 9:00 AM EDT Home Visit [facility], [facility] [address] [place] [address] Pito Rodriguez PA-C [address] [place] [id number] 10/10/2024 3:30 PM EDT Imaging Radiology [facility] [address] [place] [phone] 10/17/2024 9:00 AM EDT Office Visit Urology, [place] [address] [place] [address] Johnathon Kent PA-C [address] [place] [address] 02/06/2025 9:30 AM EDT Office Visit Cardiology, [facility] [address] [place] [address] Poncho Robledo DO [address] [place] [address] Health Maintenance Due Date Last Done Comments [...] this encounter Medical Devices Implanted Type Area Vegetable Farm Manager Device Identifier Shelf Expiration Date Model / Serial / Lot Lead Kit Trial [id number] 50cm - [id number] - [id number] Implanted:Qty: 1 on 05/08/2024 by Maged Monreal DO at OR [facility] Left: Back Quip : PAIN MGMT 03/18/2026 [id number] 50E0 / [id number] / Lead Kit Trial [id number] 50cm - [id number] - [id number] Implanted:Qty: 1 on 05/08/2024 by Maged Monreal DO at OR [facility] Right: Back [employer] : PAIN MGMT 03/18/2026 [id number] 50E0 / [id number] / Suture Steel 6 B&S19 M654g - [id number] Implanted:Qty: 1 on 07/08/2024 by Jayden Galvan MD at OR [facility] N/A: Sternum JNJ : [employer] 03/08/2029 M654G / / 103BLE Marker Coronary - [id number] Implanted:Qty: 1 on 07/08/2024 by Jayden Galvan MD at OR [facility] N/A: Heart [employer] 05/08/2027 [facility] / / [id number] Marker Coronary - [id number] Implanted:Qty: 1 on 07/08/2024 by Jayden Galvan MD at OR [facility] N/A: Heart [employer] 06/07/2027 [facility] / / [id number] documented as of this encounter Visit Diagnoses [...] Advance Directives occurred with: Patient Care Teams Other Spatial Scientist Relationship Specialty Start Date End Date Leon Galvan DO [address] [place] [address] PCP - General Internal Medicine 12/28/23 documented as of this encounter
--- OUTSIDE RECORDS SUMMARY | 2024-08-07 03:10 | External Medical Summary | Summary of Care ---
Author Name Unknown Organization [facility] Address [address] [place] [address] Phone [phone] Care Team Providers Care Vehicle Sales Professional Name Role Phone Leon Galvan DO Primary Care Provider [phone] Reason for Visit * Reason Comments Dosage Adjustment In Person (Anticoag Cl inic) Encounter Details Date Type Department Care Team (Late st Contact Info) Description 08/01/2024 10:40 AM EST Anticoagulation Family Practice [address] [phone] College, Pharmacist [address] [phone] Anticoagulation management encounter*; Coronary artery disease involving [place] coronary artery of [place] heart with unstable angina pectoris (HCC); S/P [...] 4 07/08/2024 Coronary artery disease invo lving [place] coronary artery of [place] heart with unstable angina pectoris 07/03/2024 Vitamin [...] h autonomic neuropathy 08/17/2023 09/17/2023 Atherosclerosis of [place] co ronary artery without angina pectoris 08/17/2023 [...] CG/0.3 mL, 12 YRS AND ABOVE, IM [facility] 06/16/2024,05/07/2023 COVID-19, mRNA, LNP-s, PF, B ooster, [...] spent by another provider/QHP. Patsy Brown [facility] Clinical Pharmacist 08/01/2024, 10:52 AM documented in this encounter Plan of Treatment Upcoming Encounters Date Type Department Care Team (Late st Contact Info) Description 08/05/2024 10:30 AM EST Telemedicine Cardiac Re[facility], [facility] [address] [place] [address] [place] [address] [facility] [address] [place] [address] [place] [id number] 08/05/2024 1:00 PM EST Office Visit Family Practice [address] [place] [address] [address] [place] [address] Leon Galvan, [address] [place] [address] 08/06/2024 12:30 PM EST Home Visit [facility] 132 [facility] [place] [address] Jhoana Fried, RN 132 [place] [id number] 08/20/2024 10:45 AM EST Office Visit Cardiothoracic Surg [facility] [address] [place] [address] Jayden Galvan MD [address] [place] [address] 09/02/2024 11:40 AM EST Office Visit Pharmacy, [facility] [address] [facility] [place] [address] [facility] [address] [facility] [address] 09/17/2024 8:40 AM EDT Office Visit Family Practice [address] [place] [address] [place] [address] Leon Galvan, 293 [facility], [place] [address] 09/18/2024 8:00 AM EDT Office Visit Cardiology, [facility] [place] [address] Alexandra Mackenzie CRNP 132 [facility] [place] [address] 09/29/2024 9:00 AM EDT Home Visit isinger at [facility] [address] [facility] [place] [address] Pito Rodriguez PA-C [address] [place] [address] 10/10/2024 3:30 PM EDT Imaging Radiology [facility] [address] [facility] [place] [phone] 10/17/2024 9:00 AM EDT Office Visit Urology, [place] [address] [place] [address] Johnathon Kent PA-C [address] [facility] [place] [address] 02/06/2025 9:30 AM EDT Office Visit Cardiology, [facility] [address] [facility] [place] [address] Poncho Robledo O, [address] [place] [address] Scheduled Orders Name Type Priority Associated Diagnoses [...] this encounter Medical Devices Implanted Type Area Line Cleaner Device Identifier Shelf Expiration Date Model / Serial / Lot Lead Kit Trial [id number] 50cm - [id number] - [id number] Implanted:Qty: 1 on 05/08/2024 by Maged Monreal DO at OR [facility] Left: Back [employer] : PAIN MGMT 03/18/2026 [id number] 50E0 / [id number] / Lead Kit Trial [id number] 50cm - [id number] - [id number] Implanted:Qty: 1 on 05/08/2024 by Maged Monreal DO at OR [facility] Right: Back [employer] : PAIN MGMT 03/18/2026 [id number] / [id number] / Suture Steel 6 B&S19 M654g - [id number] Implanted:Qty: 1 on 07/08/2024 by Jayden Galvan MD at OR [facility] N/A: Sternum JNJ : [employer] 03/08/2029 [id number] / / [id number] Marker Coronary - [id number] Implanted:Qty: 1 on 07/08/2024 by Jayden Galvan MD at OR [facility] N/A: Heart [employer] 05/08/2027 [facility] / / [id number] Marker Coronary - [id number] Implanted:Qty: 1 on 07/08/2024 by Jayden Galvan MD at OR [facility] N/A: Heart [employer] 06/07/2027 [facility] / / [id number] documented as of this encounter Procedures Procedure Name Priority Date/Time Associated Diagnosis Comments INR FINGERSTICK, POINT OF CARE STAT 08/01/2024 10:53 AM EST Atrial fibrillation, unspecified type (HCC) LV (left ventricular) mural thrombus Anticoagulation management encounter documented in this encounter Results * INR FINGERSTICK, POINT OF CARE (08/01/2024 10:53 AM EST) Fingerstick INR 2.1 INR 11:57 AM EST [facility] Blood 08/01/2024 10:5 3 AM EST 08/01/2024 11:57 AM EST Narrative [facility] - 08/01/2024 11:57 AM EST Therapeutic ranges for non-operative patients: Prophylaxsis/treatment of DVT: (Range:2.0-3.0) Treatment of pulmonary embolism:(Range:2.0-3.0) Prevention of systemic embolism from: -tissue heart valves -acute myocardial infarction -valvular heart disease -atrial fibrillation (Range: 2.0-3.0) Mechanical prosthetic valves: (Range: 2.5-3.5) Patsy Saldana [facility] LAB PO INT OF CARE TEST DOCKED DEVICE UNSOLICITED RESULTS Final Result [facility] [place] [address], [facility] documented in this encounter Visit Diagnoses Diagnosis Anticoagulation management encounter- Primary Encounter for therapeutic drug monitoring Coronary artery disease involving [place] coronary artery of [place] heart with unstable angina pectoris (HCC) S/P [...] Advance Directives occurred with: Patient Care Teams Vehicle Sales Professional Relationship Specialty Start Date End Date Leon Galvan DO [address] [place] [address] PCP - General Internal Medicine 12/28/23 documented as of this encounter"
[2024-08-07] MEDS: AMIODARONE 200 MG TAB PO SCH (08:01)
[2024-08-07] MEDS: ROSUVASTATIN CALCIUM 20 MG TAB PO SCH (08:03)
[2024-08-07] MEDS: TAMSULOSIN HCL 0.4 MG CAP PO SCH (08:04)
[2024-08-07] MEDS: EZETIMIBE 10 MG TAB PO SCH (08:04)
[2024-08-07] MEDS: CLOPIDOGREL BISULFATE 75 MG TAB PO SCH (08:04)
[2024-08-07] MEDS: CYANOCOBALAMIN (B-12) 500 MCG TABLET PO SCH (08:05)
[2024-08-07] MEDS: PANTOprazole 40 MG TAB PO SCH (08:05)
[2024-08-07] MEDS: POLYETHYLENE (MIRALAX) 17 GM PACK PO SCH (08:07)
[2024-08-07] MEDS: POTASSIUM CHLORIDE CRTAB 20 MEQ TABCR PO SCH (08:11)
[2024-08-07] MEDS: bisacodyL 10 MG SUPP PR SCH (08:12)
[2024-08-07 08:19] LABS: Basophils # (auto) 0.03 K/uL (0.00-0.20); Basophils % (auto) 0.4 %; Eosinophils # (auto) 0.39 K/uL (0.00-0.50); Hemoglobin 10.7 g/dl (14.0-18.0); Immature Granulocytes # (auto) 0.02 K/uL (0.01-0.20); Immature Granulocytes % (auto) 0.3 %; Lymphocytes # (auto) 1.68 K/uL (1.20-3.40); Lymphocytes % (auto) 21.7 %; Mean Corpuscular Hemoglobin 31.4 pg (25.0-34.0); Mean Corpuscular Hgb Conc 33.4 g/dL (32.0-36.0); Mean Corpuscular Volume 93.8 fL (80.0-100.0); Mean Platelet Volume 11.4 fL (9.4-12.4); Monocytes # (auto) 0.67 K/uL (0.11-0.59); Monocytes % (auto) 8.7 %; Neutrophils # (auto) 4.95 K/uL (1.40-6.50); Neutrophils % (auto) 63.9 %; Platelet Count 155 K/uL (130-400); RDW Coefficient of Variation 14.3 % (11.5-14.5); RDW Standard Deviation 49.1 fL (36.4-46.3); Red Blood Count 3.41 M/uL (4.70-6.10); White Blood Count 7.74 K/ul (4.8-10.8)
[2024-08-07 08:30] LABS: BUN Creatinine Ratio 17.1 (10-20); Calcium 8.4 mg/dl (8.6-10.3); Potassium 4.1 mmol/L (3.5-5.1)
[2024-08-07 08:40] LABS: INR 1.6 (0.9-1.1); Prothrombin Time 16.9 Seconds (9.0-12.0)
[2024-08-07 12:33] VITALS: RESP 19; TEMP 97.5; O2SAT 99
[2024-08-07] MEDS: FINASTERIDE 5 MG TAB PO SCH (12:54)
--- NOTE | 2024-08-07 13:34 | Urology Progress Note ---
Date of Service August 07, 2024 Assessment & Plan (1) Urinary retention: (2) BIJAL (acute kidney injury): Plan: 74 yo/M presented to the hospital after mechanical fall, weakness. Workup in ED revealed BIJAL and urinary retention. Patient afebrile, hemodynamically stable Labs reviewedcreatinine improved to 1.23, no leukocytosis, hemoglobin 10.7 Urinalysis on arrival was unremarkable Bejarano catheter currently in place for management of urinary retention We discussed recommendation to maintain catheter for at least 7 days Patient on dual therapy with tamsulosin and 5ARI prior to admissioncontinue Recommend bowel regimen to normalize bowels Discussed outpatient cystoscopy for consideration of bladder outlet procedure Will arrange outpatient follow-up with our service will sign off, please contact our service with any additional questions or concerns Admission and Anticipated Discharge Date Admission Date: August 06, 2024 Subjective Patient seen and examined at bedside. He is awake and sitting up at the side of the bed. No acute issues overnight. Denies pain. Tolerating Bejarano catheter. No fever or chills. Reports BM this am after no BM x 1 week. Review of Systems Constitutional: as per Subjective / HPI Genitourinary: + as per Subjective / HPI Physical Exam Constitutional: no acute distress Respiratory: normal respiratory effort; no respiratory distress and no labored breathing Gastrointestinal (Abdomen): Inspection/Auscultation: abdomen normal to inspection Musculoskeletal: Head/Neck/Chest: normocephalic Neurologic: moves all extremities and awake Psychiatric: Orientation: alert and oriented x 3 Genitourinary: Bejarano draining yellow urine with slight blood tinge Results & Data Vital Signs (Past 12 Hours) Vital Signs Temp Pulse Pulse Resp BP Pulse Ox O2 Del Method 08/07/24 12:28 36.4 C L 64 19 143/84 H 99 Room Air 08/07/24 08:16 36.7 C 67 20 133/91 96 Room Air 08/07/24 08:00 65 08/07/24 08:00 Room Air 08/07/24 02:47 36.6 C 62 16 111/72 95 Room Air PG Care Time/CCT Total # of Minutes Spent Total Time Spent with Patient: Total time spent is greater than 50% in coordination of care (as documented) at patient's floor/unit and/or counseling patient: Coding Level of Care Code 03900 SUB INP/OBS CARE 1/25MIN Diagnoses Urinary retention R33.9 BIJAL (acute kidney injury) N17.9
--- NOTE | 2024-08-07 14:13 | Hospitalist Progress Note ---
Date of Service August 07, 2024 Assessment & Plan (1) BIJAL (acute kidney injury): (2) Urinary retention: Plan Patient is a 74-year-old male with Past medical history of past medical history of hypertension, gout, hyperlipidemia, COPD, heart failure, CVA, hypertension, GERD, BPH, restless leg syndrome, tobacco use disorder. Patient was found to have reduced EF of 35% in 06/30/2024 with small apical laminar thrombus. He was started on Eliquis. He was then admitted to [facility] for CABG on 07/08/2024. Postoperative period was complicated with atrial fibrillation, hypotension and BIJAL. He was started on amiodarone and Coumadin at discharge. Patient was brought to the hospital with concern of mechanical fall. Did not hit his head. Echo of the heart showedsystolic function is moderately reduced with EF 35 to 40%, there is a large sized apical anteroseptal, anterior, inferior, posterior and, lateral wall motion abnormality with hypokinesis to akinesis of the segments. There is a small, laminar apical thrombus. Aortic valve sclerosis mild without significant aortic valvular stenosis. There is mild tricuspid regurgitation and Doppler findings do not suggest pulmonary hypertension The patient did not want to stay any longer in the hospital He was discharged home and advised to take his medications and keep appointments with the healthcare providers Acute urinary retention BIJAL Patient creatinine was 1.5 on 08/02/2024; presented with creatinine of 1.7 CT abdomen pelvis showed large bladder. Status post Bejarano cath replacement Appreciate urology input and recommendation Continue Bejarano for at least 7 to 10 days. Urology consulted to establish care and also appreciate any further recommendation. Has hadPT OT eval- recommended home with a walker Chronic conditions; CAD status post CABG in June4continue on Plavix, rosuvastatin 40 mg, Zetia 10 mg, Coreg 3.125 twice daily Patient was found to have reduced EF of 35% in 06/30/2024 with small apical laminar thrombus. He was started on Eliquis. He was then admitted to [facility] for [facility] on 07/08/2024. Postoperative period was complicated with atrial fibrillation, hypotension and BIJAL. He was started on amiodarone and Coumadin at discharge. Denies any cardiac symptoms History of apical thrombus-continued Coumadin; obtain PT/INR daily Atrial fibrillationcontinue amiodarone, Coumadin CHF with reduced EFcontinue Coreg. Hold Lasix GERDcontinue pantoprazole Mood disordercontinue on mirtazapine, buspirone, bupropion Restless leg syndrome- continue on ropinirole Tobacco use disordercontinue nicotine patch Full code DVT prophylaxis Coumadin Admission and Anticipated Discharge Date Admission Date: August 06, 2024 Subjective 08/07/2024 The patient was seen and examined in telemetry unit He has been feeling lot better with the Bejarano catheter in place Denies any significant symptoms and hematuria seems to be stopped He has had physical therapy and Review of Systems Review of Systems: All systems reviewed and are unremarkable except as noted below Physical Exam Physical Exam: Lying in bed without any acute distress Constitutional: well developed, well nourished and average body habitus; not ill appearing Eyes: PERRL, conjunctivae normal, anicteric sclerae ENMT: external ear and nose normal, oropharynx normal Neck: trachea midline, no thyromegaly Respiratory: no respiratory distress Auscultation: lungs clear to auscultation bilaterally Cardiovascular: Rate/Rhythm: regular rate and regular rhythm; not tachycardic Heart Sounds: normal S1 and normal S2; no murmur Extremities: no edema Gastrointestinal (Abdomen): Inspection/Auscultation: normal bowel sounds; abdomen not distended Percussion/Palpation: + abdomen tender and abdomen soft Musculoskeletal: No acute arthritis involving any of the joint Neurologic: normal touch/pain/proprioception and moves all extremities; no focal motor deficits Genitourinary: Has Bejarano catheter in situ Results & Data Results & Data Vital Signs (Past 12 Hours) Vital Signs Temp Pulse Pulse Resp BP Pulse Ox O2 Del Method 08/07/24 12:28 36.4 C L 64 19 143/84 H 99 Room Air 08/07/24 08:16 36.7 C 67 20 133/91 96 Room Air 08/07/24 08:00 65 08/07/24 08:00 Room Air 08/07/24 02:47 36.6 C 62 16 111/72 95 Room Air Laboratory Results Short CBC 08/06/24 08/07/24 Range/Units 14:35 07:56 WBC 6.77 7.74 (4.8-10.8) K/ul Hgb 12.1 L 10.7 L (14.0-18.0) g/dl Hct 36.5 L 32.0 L (42.0-52.0) % Plt Count 186 155 (130-400) K/uL BMP 08/06/24 08/06/24 08/07/24 14:35 21:23 07:56 Sodium 143 143 143 Potassium 4.3 4.2 4.1 Chloride 105 109 H 110 H Carbon Dioxide 32 28 29 BUN 26 H 22 21 Creatinine 1.71 H 1.43 H 1.23 Glucose 161 H 89 89 Calcium 8.9 7.7 L 8.4 L Cardiac Enzymes 08/06/24 Range/Units 14:35 Total Creatine Kinase 59 (30-223) U/L Liver Function 08/06/24 Range/Units 14:35 Total Bilirubin 0.4 (0.2-1.0) mg/dl AST 44 H (13-39) U/L ALT 115 H (7-52) U/L Alkaline Phosphatase 129 H (34-104) U/L Albumin 4.0 (3.4-5.0) gm/dl Urine 08/06/24 Range/Units 16:34 Urine Color Yellow Urine Appearance Clear (Clear) Urine pH 7.0 (4.5-7.5) Ur Specific Eclectic 1.015 (1.000-1.030) Urine Protein Negative (Negative) Urine Glucose (UA) Negative (Negative) Medications Administered Current Inpatient Medications Acetaminophen (Acetaminophen 325 Mg Tab) 650 mg PO Q4H PRN PRN Reason: Pain or Fever Stop: 09/05/24 18:55 Amiodarone HCl (Amiodarone 200 Mg Tab) 200 mg PO QDB [facility] Stop: 09/06/24 07:29 Last Admin: 08/07/24 08:01 Dose: 200 mg Bisacodyl (Bisacodyl 10 Mg Supp) 10 mg OR DAILY [facility] Stop: 08/10/24 23:59 Last Admin: 08/07/24 08:12 Dose: 10 mg Bupropion HCl (Bupropion Sr 150 Mg Tabcr) 150 mg PO BID [facility] Stop: 09/05/24 20:59 Last Admin: 08/07/24 08:03 Dose: 150 mg Buspirone HCl (Buspirone 5 Mg Tab) 5 mg PO BID [facility] Stop: 09/05/24 20:59 Last Admin: 08/07/24 08:05 Dose: 5 mg Carvedilol (Carvedilol 3.125 Mg Tab) 3.125 mg PO BIDM [facility] Stop: 09/05/24 18:59 Last Admin: 08/07/24 08:11 Dose: 3.125 mg Clopidogrel Bisulfate (Clopidogrel Bisulfate 75 Mg Tab) [facility] Stop: 09/06/24 08:59 Last Admin: 08/07/24 08:04 Dose: 75 mg Cyanocobalamin (Cyanocobalamin (B-12) 500 Mcg Tablet) 1,000 mcg PO [facility] Stop: 09/06/24 08:59 Last Admin: 08/07/24 08:05 Dose: 1,000 mcg Ezetimibe (Ezetimibe 10 Mg Tab) 10 mg PO [facility] Stop: 09/06/24 08:59 Last Admin: 08/07/24 08:04 Dose: 10 mg Famotidine (Famotidine 20 Mg Tab) 20 mg PO DAILY PRN PRN Reason: Heartburn Stop: 09/05/24 18:11 Finasteride (Finasteride 5 Mg Tab) 5 mg PO QDL [facility] Stop: 09/06/24 11:29 Last Admin: 08/07/24 12:54 Dose: 5 mg Mirtazapine (Mirtazapine Tab 15 Mg Tab) 15 mg PO HS [facility] Stop: 09/05/24 20:59 Last Admin: 08/06/24 21:00 Dose: 15 mg Miscellaneous (Remove Nicoderm Patch) 1 each N/A DAILY@0859 [facility] Stop: 09/06/24 08:58 Last Admin: 08/07/24 08:06 Dose: 1 each Nicotine (Nicotine 21 Mg/24 Hr Tdsy) 1 patch TD [facility] Stop: 09/05/24 19:14 Last Admin: 08/07/24 08:05 Dose: 1 patch Nitroglycerin (Nitroglycerin Sl 0.4 Mg/Tab Tab) 0.4 mg SL Q5H PRN PRN Reason: Angina Stop: 09/05/24 18:11 Pantoprazole Sodium (Pantoprazole 40 Mg Tab) 40 mg PO [facility] Stop: 09/06/24 08:59 Last Admin: 08/07/24 08:05 Dose: 40 mg Polyethylene Glycol (Polyethylene (Miralax) 17 Gm Pack) 17 gm PO [facility] Stop: 09/06/24 08:59 Last Admin: 08/07/24 08:07 Dose: 17 gm Potassium Chloride (Potassium Chloride Crtab 20 Meq Tabcr) 20 meq [facility] Stop: 09/06/24 08:59 Last Admin: 08/07/24 08:11 Dose: 20 meq Pregabalin (Pregabalin 75 Mg Cap) 75 mg PO BID [facility] Stop: 09/05/24 20:59 Last Admin: 08/07/24 08:11 Dose: 75 mg Ropinirole HCl (Ropinirole Hcl 0.25 Mg Tablet) 0.5 mg PO [facility] Stop: 09/05/24 20:59 Last Admin: 08/06/24 20:58 Dose: 0.5 mg Rosuvastatin Calcium (Rosuvastatin Calcium 20 Mg Tab) 40 [facility] Stop: 09/06/24 08:59 Last Admin: 08/07/24 08:03 Dose: 40 mg Tamsulosin HCl (Tamsulosin Hcl 0.4 Mg Cap) 0.4 mg [facility] Stop: 09/06/24 08:59 Last Admin: 08/07/24 08:04 Dose: 0.4 mg Warfarin Sodium (Warfarin Sod 1 Mg Tab) 1 mg PO DAILY@1600 [facility] Stop: 09/05/24 19:29 Last Admin: 08/06/24 21:00 Dose: 1 mg
[2024-08-07 17:58] VITALS: BP 115/74; PULSE 64
--- NOTE | 2024-08-07 18:35 | Discharge Summary ---
Date of Service August 07, 2024 Admission HPI Per Admitting Provider History obtained from the patient, chart review Past medical history of past medical history of hypertension, gout, hyperlipidemia, COPD, heart failure, CVA, hypertension, GERD, BPH, restless leg syndrome, tobacco use disorder. Patient was found to have reduced EF of 35% in 06/30/2024 with small apical laminar thrombus. He was started on Eliquis. He was then admitted to [facility] for [place]G(undwent on 07/08/2024). Postoperative period was complicated with atrial fibrillation, hypotension and BIJAL. He was started on amiodarone and Coumadin at discharge. As per patient, visiting nurse came to his house. He was sitting on the couch; while he was trying to stand up; he was falling down due to bilateral lower extremity weakness but was caught by the nurse. He denies syncope. He denies any dizziness. He denies any lower extremity weakness at this time. He denies any visual changes, chest pain, shortness of breath, abdominal pain or urinary symptoms. Workup in the ED showed BIJAL and urine retention for which Bejarano catheter was placed. Patient was then referred for admission. Family history; mother at 54 with heart disorder, father at 56 with heart disorder. Social history; 0.5 packs/day for last several years. Admission Exam Per Admitting Provider Physical Exam: Constitutional: Alert oriented x 3; not in distress. Chest; wound healing well. Respiratory: b/l vesicular breath sound Cardiovascular: RRR, no murmur, no edema Vessels: no JVD or carotid bruit Chest: normal inspection of chest Abdomen: normal bowel sounds, soft, nontender, no hepatosplenomegaly Musculoskeletal: no cyanosis or clubbing, extremities motor strength 5/5 Skin: no rashes, warm and dry normal turgor Neurologic: PERRL, EOMI, accommodation nl, no face palsy, no dysarthria CN's II- XI intact bilaterally and moves all extremities Principal Diagnosis BIJAL-improved, acute urinary retention status post Bejarano catheter, CAD status post CABG in June 2024, atrial fibrillation Discharge Exam Lying in bed without any acute distress Constitutional well developed, well nourished and average body habitus; not ill appearing Eyes PERRL, conjunctivae normal, anicteric sclerae ENMT external ear and nose normal, oropharynx normal Neck trachea midline, no thyromegaly Respiratory no respiratory distress Auscultation: lungs clear to auscultation bilaterally Cardiovascular Rate/Rhythm: regular rate and regular rhythm; not tachycardic Heart Sounds: normal S1 and normal S2; no murmur Extremities: no edema Gastrointestinal (Abdomen) Inspection/Auscultation: normal bowel sounds; abdomen not distended Percussion/Palpation: + abdomen tender and abdomen soft Neurologic normal touch/pain/proprioception and moves all extremities; no focal motor deficits Discharge Data Allergies Allergy/AdvReac Type Severity Reaction Status Date / Time codeine Allergy Mild "SKIN Verified 06/25/24 09:05 STARTS FALLING OFF" Consultations 08/06/24 16:13 ED Decision to Admit Stat 08/06/24 18:56 Consult Urology Routine Ordered Studies 08/06/24 14:54 CT cervical spine wo con Stat CT head/brain wo con Stat 08/06/24 15:25 CT abd pelvis wo con Stat Hospital Course (1) BIJAL (acute kidney injury): (2) Urinary retention: Plan Patient is a 74-year-old male with Past medical history of past medical history of hypertension, gout, hyperlipidemia, COPD, heart failure, CVA, hypertension, GERD, BPH, restless leg syndrome, tobacco use disorder. Patient was found to have reduced EF of 35% in 06/30/2024 with small apical laminar thrombus. He was started on Eliquis. He was then admitted to [facility] for CABG on 07/08/2024. Postoperative period was complicated with atrial fibrillation, hypotension and BIJAL. He was started on amiodarone and Coumadin at discharge. Patient was brought to the hospital with concern of mechanical fall. Did not hit his head. Echo of the heart showedsystolic function is moderately reduced with EF 35 to 40%, there is a large sized apical anteroseptal, anterior, inferior, posterior and, lateral wall motion abnormality with hypokinesis to akinesis of the segments. There is a small, laminar apical thrombus. Aortic valve sclerosis mild without significant aortic valvular stenosis. There is mild tricuspid regurgitation and Doppler findings do not suggest pulmonary hypertension The patient did not want to stay any longer in the hospital He was discharged home and advised to take his medications and keep appointments with the healthcare providers Acute urinary retention BIJAL Patient creatinine was 1.5 on 08/02/2024; presented with creatinine of 1.7 CT abdomen pelvis showed large bladder. Status post Bejarano cath replacement Appreciate urology input and recommendation Continue Bejarano for at least 7 to 10 days. Urology consulted to establish care and also appreciate any further recommendation. Has hadPT OT eval- recommended home with a walker Chronic conditions; CAD status post CABG in June4continue on Plavix, rosuvastatin 40 mg, Zetia 10 mg, Coreg 3.125 twice daily Patient was found to have reduced EF of 35% in 06/30/2024 with small apical laminar thrombus. He was started on Eliquis. He was then admitted to [facility] for CABG on 07/08/2024. Postoperative period was complicated with atrial fibrillation, hypotension and BIJAL. He was started on amiodarone and Coumadin at discharge. Denies any cardiac symptoms History of apical thrombus-continued Coumadin; obtain PT/INR daily Atrial fibrillationcontinue amiodarone, Coumadin CHF with reduced EFcontinue Coreg. Hold Lasix GERDcontinue pantoprazole Mood disordercontinue on mirtazapine, buspirone, bupropion Restless leg syndrome- continue on ropinirole Tobacco use disordercontinue nicotine patch Full code DVT prophylaxis Coumadin Total Time Total Time Spent Total Time Spent (In Minutes): 40 Minutes Discharge Plan Discharge Items Patient Disposition: Home - Self-Care Reason For Visit: BIJAL Discharge Diagnosis: BIJAL-improved, acute urinary retention status post Bejarano catheter, CAD status post CABG in June 2024, atrial fibrillation Condition on Discharge: Fair Activity: Resume your previous activity Non-emergency contact: Primary Care Provider Call non-emergency contact if: you have any medication questions and your symptoms worsen Follow-up/Referrals: Leon Galvan DO [Primary Care Provider] - (The office will call you for a follow up appointment ) Diet: Heart Healthy Fluids: 1500ml (6 cups) Addtl Attending Provider Instructions: Please take precaution to avoid falls No change in your medications Please take your medications as advised Keep appointments with the healthcare providers Pending Studies at Discharge: No Stand-Alone Forms: My [facility], Smoking Cessation Medications and DC Order Prescriptions: Continued bupropion HCl 150 mg Tablet Sustained-Release 12 Hr 150 mg PO BID ropinirole 0.5 mg Tablet 0.5 mg PO HS Rx Instructions: Take with food nitroglycerin 0.4 mg Tablet, Sublingual 0.4 mg sublingual UD PRN (Reason: Angina) ezetimibe 10 mg Tablet 10 mg PO QAM dutasteride 0.5 mg Capsule 0.5 mg PO QDL rosuvastatin 40 mg Tablet 40 mg PO QAM buspirone 5 mg tablet 5 mg PO BID famotidine 20 mg Tablet 20 mg PO DAILY PRN (Reason: Heartburn) mirtazapine 15 mg Tablet 15 mg PO HS clopidogrel 75 mg Tablet 75 mg PO QAM Qty: 30 2RF pregabalin 75 mg capsule 75 mg PO AMHS furosemide 40 mg tablet 40 mg PO QAM amiodarone 200 mg tablet 200 mg PO QDB warfarin 1 mg tablet 1 mg PO QPM Rx Instructions: as directed carvedilol 3.125 mg tablet 3.125 mg PO AMPM potassium chloride 10 mEq tablet,ER particles/crystals 20 meq PO QAM polyethylene glycol 3350 [Miralax] 17 gram/dose Powder 17 g PO QAM Rx Instructions: dissolve 1 heaping tablespoon in 8 onces of water or juice pantoprazole [Protonix] 40 mg tablet,delayed release (DR/EC) 40 mg PO QAM tamsulosin 0.4 mg capsule 0.4 mg PO QAM bisacodyl 10 mg Suppository 10 mg NE DAILY Rx Instructions: for 5 days start 08/05/24 end date 08/10/24 do not use for more than a week cyanocobalamin (vitamin B-12) 1,000 mcg Tablet, Sublingual 1,000 mcg SUBLINGUAL QAM Rx Instructions: pt not sure if he takes this...no RX bottle to clarify Discharge Orders: Discharge Order (Routine); Ordered 08/07/24 Ordered By: Kulwinder Hopkins Discharge Order- CHF (Routine); Ordered 08/07/24 Ordered By: Kulwinder Bernstein/Other Patient Handouts: Warfarin Oral Tablet Admission Data Admit Date/Time: 08/06/24 16:52 Attending Provider: Kulwinder Hopkins Admit Provider: Senthil Burris Primary Care Provider: Leon Galvan Other Providers: Senthil Burris; Leon Sibley; [facility] Other Interventions: Discharge Summary Assessment (RN) Last Done: 08/07/24 17:57
== END 2024-08-07 18:47 | disposition home or self-care (01) | DRG 683 ==
LOC: ED 14:12 → EDINP 16:52 → SUATTDRO 16:52 → 4W 18:56

== ENCOUNTER 2024-08-28 15:16 | Inpatient (IN) ==
--- NOTE | 2024-08-28 15:38 | Emergency Department Note ---
Impression & Plan Syncope and collapse, BIJAL (acute kidney injury), Acute pain of right shoulder ED Provider Note HISTORY OF PRESENT ILLNESS: Patient is a 74-year-old male presenting with right shoulder pain after syncopal episode. Patient reports that he was laying on the couch when he stood to go into his kitchen when he suddenly felt very dizzy and passed out. He states that he hit his shoulder on what he thinks was the stove. He denies hitting his head. He states he was on the ground for about a minute when he called his doctor and was referred to the emergency department. Patient was able to get up on his own. He states that his right shoulder is very tender after the fall. He had a three-vessel CABG 1 month ago at [facility]. He states that he has been feeling lightheaded and dizzy for the last 3 weeks when he gets up and around. He has a history of A-fib. He is currently on Eliquis and Plavix. Denies any DVT or PE history. Denies any numbness, tingling or weakness in his extremities. Denies any abdominal pain, nausea or vomiting. ROS: as above PHYSICAL EXAM: Constitutional: Patient appears in no acute distress. HENT: Head: Normocephalic and atraumatic. Eyes: EOMI, PERRL Mouth/Throat: Mucous membranes moist. Neck: Trachea midline. Neck supple. No midline cervical spine tenderness to palpation Cardiovascular: RRR, No murmurs, rubs or gallops. Intact distal pulses. Pulmonary/Chest: No respiratory distress. Breath sounds clear and equal bilaterally. No wheezes or rales. Well-healed sternotomy incision that is clean/dry/intact. Abdominal: Abdomen soft, no tenderness, rebound or guarding. Back: No midline spinal tenderness, no paraspinal tenderness, no CVA tenderness. Musculoskeletal: - LUE: No obvious deformity. Patient has tenderness to palpation over the scapula. No open wounds or ecchymosis. Patient is able to fully range the shoulder. Intact radial pulse. Skin: Warm and dry. No rash, erythema, pallor or cyanosis Psychiatric: Appropriate mood and affect for situation. Neurological: Alert and keenly responsive. CN II-XII grossly intact, moving all extremities equally and fully. MDM: - Vitals signs showed hypertension - History obtained via patient. History as above. - Chronic conditions affecting care: HTN; TIA; CAD (S/p CABG); ischemic cardiomyopathy - Differential diagnoses include, but are not limited to: ACS; CHF; dysrhythmia; electrolyte abnormality; pneumonia; pericardial effusion - Order placed for continuous cardiac monitoring. At this time, monitor showed rate of 63 bpm with normal sinus rhythm, per my interpretation. - External medical records reviewed. Discharge summary dated 08/07/2024 was reviewed. Patient was admitted for BIJAL - EKG image interpreted by myself showed normal sinus rhythm. Rate 67 bpm. QT prolonged 496. No acute ischemic changes. - Laboratory workup interpreted by myself showed normal WBC; normal PT/INR; stable electrolytes; BIJAL (Cr 1.42); normal AST/ALT; normal troponin; normal CK; normal lipase; normal TSH - CXR image reviewed by myself is negative for any pneumonia, per my interpretation. - Xray right shoulder negative for fracture - CT head wo contrast negative for acute intracranial pathology. - Patient given 1g IV tylenol for right shoulder pain - Repeat troponin and BNP ordered - Discussed results with the patient. Will plan to admit to hospitalist service - Discussion was had with special education case manager about patient's case and need for admission - Hospitalist, Dr. Obando, consulted for admission - Patient admitted to [facility] hospitalist service for further evaluation and management. ASSESSMENT AND PLAN: Diagnosis: Syncope and collapse; BIJAL; acute pain of right shoulder Plan: Admit Past Med/Surg History Problem List (Updated 08/28/24 @ 17:58 by Sarah Brandon MD) Acute pain of right shoulder (Acute) BIJAL (acute kidney injury) (Acute) Syncope and collapse (Acute) BIJAL (acute kidney injury) (Acute) Syncope (Acute) Urinary retention BIJAL (acute kidney injury) Lumbar radiculopathy Ischemic cardiomyopathy Smoker Hypertensive emergency Hypertensive emergency without congestive heart failure On home oxygen therapy 2L N/C at hs Weakness Hypertensive urgency Asthma (Chronic) CAD (coronary artery disease) (Chronic) COPD (chronic obstructive pulmonary disease) (Acute) DM type 2 (diabetes mellitus, type 2) (Chronic) Chronic systolic heart failure (Chronic) Pulmonary nodule (Chronic) BPH (benign prostatic hypertrophy) (Chronic) Dyslipidemia (Chronic) Gout (Chronic) HTN (hypertension) (Chronic) Restless legs syndrome (RLS) (Chronic) Lowe's esophagus (Chronic) Stented coronary artery (Chronic) "LAD stent 10/08/04" History of back surgery (Chronic) History of prostate surgery (Chronic) "TULIP" H/O cystoscopy (Chronic) Precordial chest pain (Acute) TIA (transient ischemic attack) (Acute) Encounter for pre-operative examination Encounter for pre-operative examination Encounter for pre-operative examination TIA (transient ischemic attack) (Acute) HTN (hypertension) (Acute) Headache (Acute) GERD (gastroesophageal reflux disease) (Chronic) Medical History Hx of gout On anticoagulant therapy effient daily Restless leg syndrome Hypertension Hyperlipidemia 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 Box Sleep apnea oxygen--2L N/C Chronic obstructive pulmonary disease Asthma Surgical History History of bilateral cataract extraction History of cystoscopy History of lumbosacral spine surgery History of colonoscopy History of esophagogastroduodenoscopy (EGD) History of appendectomy History of tooth extraction all teeth History of tonsillectomy History of heart artery stent TOTAL OF 4 STENTS PLACED DURING 4 CATH PROCEDURES; last 2016 History of cardiac cath multiple--last 2016, [facility] Family History Sister Family history of diabetes mellitus Other No family history of adverse response to anesthesia Social History Smoking Status: Current every day smoker Tobacco Type: Cigarettes Cigarettes Per Day: 4; Second Hand Exposure: Yes; Do You Dip or Chew Tobacco: No; Hx Alcohol Use: No Hx Substance Use: No Preferred Language: Swedish Communication Ability: Effective Inspector Line Required: No Beliefs That Will Affect Care: None marital status: Current Living Situation: Family Current Living Situation Comment: and brother in law Feels Safe at Home: Yes Assistive Devices: None Allergies Allergies Allergy/AdvReac Type Severity Reaction Status Date / Time codeine Allergy Mild "SKIN Verified 06/25/24 09:05 STARTS FALLING OFF" Home Meds Home Medications Medication Instructions Recorded Confirmed bupropion HCl 150 mg tablet,12 hr 150 mg PO BID 01/13/19 08/06/24 sustained-release dutasteride 0.5 mg capsule 0.5 mg PO QDL 01/13/19 08/06/24 ezetimibe 10 mg tablet 10 mg PO QAM 01/13/19 08/06/24 nitroglycerin 0.4 mg sublingual 0.4 mg sublingual UD PRN Angina 01/13/19 08/28/24 tablet ropinirole 0.5 mg tablet 0.5 mg PO HS 01/13/19 08/06/24 rosuvastatin 40 mg tablet 40 mg PO QAM 01/13/19 08/06/24 buspirone 5 mg tablet 5 mg PO BID 07/27/20 08/06/24 famotidine 20 mg tablet 20 mg PO DAILY PRN Heartburn 10/17/22 08/28/24 mirtazapine 15 mg tablet 15 mg PO HS 10/17/22 08/06/24 amiodarone 200 mg tablet 200 mg PO QDB 08/06/24 08/28/24 bisacodyl 10 mg rectal suppository 10 mg GA DAILY 08/06/24 08/06/24 carvedilol 3.125 mg tablet 3.125 mg PO AMPM 08/06/24 08/28/24 cyanocobalamin (vitamin B-12) 1,000 mcg sublingual QAM 08/06/24 08/28/24 1,000 mcg sublingual tablet furosemide 40 mg tablet 40 mg PO QAM 08/06/24 08/28/24 pantoprazole 40 mg tablet,delayed 40 mg PO QAM 08/06/24 08/28/24 release (Protonix) polyethylene glycol 3350 17 17 g PO QAM 08/06/24 08/06/24 gram/dose oral powder (Miralax) potassium chloride 10 mEq 20 meq PO QAM 08/06/24 08/28/24 tablet,extended release(part/cryst) pregabalin 75 mg capsule 75 mg PO AMHS 08/06/24 08/28/24 tamsulosin 0.4 mg capsule 0.4 mg PO QAM 08/06/24 08/06/24 warfarin 1 mg tablet 1 mg PO QPM 08/06/24 08/06/24 Previous Rx's Medication Instructions Recorded clopidogrel 75 mg tablet 75 mg PO QAM #30 tabs 12/21/22 Results & Data (ED) Vital Signs Vital Signs - 24 hr 08/28/24 15:24 08/28/24 15:27 08/28/24 15:31 Temperature 36.6 C Temperature Source Oral Pulse Rate 68 68 Pulse Rate from SpO2 Sensor 68 Respiratory Rate 16 13 Respiratory Effort / Characteristics Non-Labored Spontaneous Respiratory Depth Normal Respiratory Pattern Regular Blood Pressure 143/86 H Blood Pressure [Left Arm] Blood Pressure Mean 91 Blood Pressure Mean [Left Arm] Blood Pressure Position [Left Arm] Pulse Oximetry 98 96 Oxygen Delivery Method Room Air Sepsis Recent Fever Within 48 Hours No Sepsis New/Unexplained Change in Mental Status No Sepsis Action Taken by Nursing No Action Required 08/28/24 15:34 08/28/24 15:36 08/28/24 15:42 Temperature Temperature Source Pulse Rate 67 Pulse Rate from SpO2 Sensor 67 Respiratory Rate 17 Respiratory Effort / Characteristics Respiratory Depth Respiratory Pattern Blood Pressure Blood Pressure [Left Arm] 143/86 H Blood Pressure Mean Blood Pressure Mean [Left Arm] 105 Blood Pressure Position [Left Arm] Lying Pulse Oximetry 99 98 Oxygen Delivery Method Room Air Sepsis Recent Fever Within 48 Hours Sepsis New/Unexplained Change in Mental Status Sepsis Action Taken by Nursing 08/28/24 15:44 08/28/24 15:52 08/28/24 16:15 Temperature Temperature Source Pulse Rate 65 65 Pulse Rate from SpO2 Sensor Respiratory Rate 14 Respiratory Effort / Characteristics Respiratory Depth Respiratory Pattern Blood Pressure 130/86 Blood Pressure [Left Arm] Blood Pressure Mean 91 Blood Pressure Mean [Left Arm] Blood Pressure Position [Left Arm] Pulse Oximetry Oxygen Delivery Method Sepsis Recent Fever Within 48 Hours Sepsis New/Unexplained Change in Mental Status Sepsis Action Taken by Nursing 08/28/24 16:30 08/28/24 16:30 08/28/24 17:00 Temperature Temperature Source Pulse Rate 62 63 Pulse Rate from SpO2 Sensor 62 Respiratory Rate 10 L 11 L Respiratory Effort / Characteristics Respiratory Depth Respiratory Pattern Blood Pressure 116/76 Blood Pressure [Left Arm] Blood Pressure Mean 92 Blood Pressure Mean [Left Arm] Blood Pressure Position [Left Arm] Pulse Oximetry 99 Oxygen Delivery Method Sepsis Recent Fever Within 48 Hours Sepsis New/Unexplained Change in Mental Status Sepsis Action Taken by Nursing 08/28/24 17:00 Temperature Temperature Source Pulse Rate Pulse Rate from SpO2 Sensor Respiratory Rate Respiratory Effort / Characteristics Respiratory Depth Respiratory Pattern Blood Pressure 106/75 Blood Pressure [Left Arm] Blood Pressure Mean 84 Blood Pressure Mean [Left Arm] Blood Pressure Position [Left Arm] Pulse Oximetry Oxygen Delivery Method Sepsis Recent Fever Within 48 Hours Sepsis New/Unexplained Change in Mental Status Sepsis Action Taken by Nursing Laboratory Data 08/28/24 15:28 08/28/24 15:28 Lab Results 08/28/24 Range/Units 15:28 WBC 6.51 (4.8-10.8) K/ul RBC 3.99 L (4.70-6.10) M/uL Hgb 12.9 L (14.0-18.0) g/dl Hct 38.0 L (42.0-52.0) % MCV 95.2 (80.0-100.0) fL MCH 32.3 (25.0-34.0) pg MCHC 33.9 (32.0-36.0) g/dL RDW Std Deviation 49.2 H (36.4-46.3) fL RDW Coeff of Lakesha 14.1 (11.5-14.5) % Plt Count 247 (130-400) K/uL MPV 10.5 (9.4-12.4) fL Immature Gran % (Auto) 0.2 % Neut % (Auto) 68.1 % Lymph % (Auto) 19.5 % Owen % (Auto) 8.0 % Eos % (Auto) 3.7 % Baso % (Auto) 0.5 % Neut # (Auto) 4.44 (1.40-6.50) K/uL Lymph # (Auto) 1.27 (1.20-3.40) K/uL Owen # (Auto) 0.52 (0.11-0.59) K/uL Eos # (Auto) 0.24 (0.00-0.50) K/uL Baso # (Auto) 0.03 (0.00-0.20) K/uL Immature Gran # (Auto) 0.01 (0.01-0.20) K/uL PT 10.8 (9.0-12.0) Seconds INR 1.0 (0.9-1.1) Sodium 142 (136-145) mmol/L Potassium 4.3 (3.5-5.1) mmol/L Chloride 105 (98-107) mmol/L Carbon Dioxide 30 (21-32) mmol/L Anion Gap 7 (3-11) BUN 38 H (6-23) mg/dl Creatinine 1.42 H (0.6-1.4) mg/dl Est Cr Clr Drug Dosing 41.3 ml/min eGFR 51.85 BUN/Creatinine Ratio 26.8 H (10-20) Glucose 149 H (70-99(Fasting)) mg/dl Calcium 8.8 (8.6-10.3) mg/dl Magnesium 2.2 (1.7-2.4) mg/dl Total Bilirubin 0.3 (0.2-1.0) mg/dl AST 32 (13-39) U/L ALT 46 (7-52) U/L Alkaline Phosphatase 100 (34-104) U/L Total Creatine Kinase 51 (30-223) U/L Troponin I High Sens 16.6 (0-20) pg/ml Total Protein 7.2 (6.0-8.3) gm/dl Albumin 4.1 (3.4-5.0) gm/dl Globulin 3.1 (2.5-4.0) gm/dl Albumin/Globulin Ratio 1.3 (0.9-2) Lipase 38 (11-82) U/L TSH 3.243 (0.300-4.500) uIu/ml Administered Medications Discontinued Medications Acetaminophen (Ofirmev) 1,000 mg in 100 mls @ 400 mls/hr IV NOW STA Stop: 08/28/24 15:52 Last Infusion: 08/28/24 16:18 Dose: Infused Documented By: Admin: 08/28/24 15:44 Dose: 400 mls/hr Documented By: DANISHA Imaging Data Radiologist's Impression: Shoulder X-Ray 08/28/24 15:33 XR shoulder RT min 2V routine CLINICAL HISTORY: R shoulder pain s/p fall COMPARISON: None FINDINGS: 3 views of the right shoulder demonstrate no acute traumatic osseous or articular injury. There is no fracture or dislocation. There is osteoarthritic change at the acromioclavicular joint with undersurface bony spurring. There is no periarticular calcification. IMPRESSION: No acute traumatic injury. ACT 112: Negative or not required by law. Electronically signed by: Jhoana Avalos M.D. 08/28/2024 3:58 PM Chest X-Ray 08/28/24 15:34 XR chest 1V portable CLINICAL HISTORY: syncope COMPARISON STUDY: 08/06/2024 FINDINGS: Single view portable chest demonstrates no acute cardiopulmonary process. There is no infiltrate or pleural effusion. No pneumothorax. The heart is mildly enlarged. Is evidence of prior coronary artery bypass surgery. The pulmonary vascularity is unremarkable. There is a nipple shadow left lower lobe. The previously suspected left midlung nodule was not reproducible. IMPRESSION: No acute process ACT 112: Negative or not required by law. Electronically signed by: Jhoana Avalos M.D. 08/28/2024 3:[address] 08/28/24 15:34 Clinical History: Syncope. Technique: Axial computed tomography images were obtained of the brain from the vertex to the skull base without intravenous contrast. Comparison is made to the prior CT dated 08/06/2024 Findings: There is no sign of intracranial hemorrhage. There is normal andersen-white matter differentiation with no sign of acute or old infarction. No midline shift or other form of herniation is identified. There is no hydrocephalus. No obvious mass lesion is seen on this noncontrast examination. The visualized portions of the orbits and paranasal sinuses appear unremarkable. The mastoid air cells appear clear Impression: Unremarkable noncontrast CT of the brain Electronically signed by Jeff Copeland 08-28-2024 4:38 PM Discharge Plan Visit Data Chief Complaint: Fall Stated Complaint: SYNCOPE, FALL, SHOULDER PAIN, INJURY ALERT ED Provider: Sarah Brandon Discharge Problem: Syncope and collapse, BIJAL (acute kidney injury), Acute pain of right shoulder Forms Stand Alone Forms: [facility] [place] [employer] Prescriptions Prescriptions: No Action bupropion HCl 150 mg Tablet Sustained-Release 12 Hr 150 mg PO BID ropinirole 0.5 mg Tablet 0.5 mg PO HS Rx Instructions: Take with food nitroglycerin 0.4 mg Tablet, Sublingual 0.4 mg sublingual UD PRN (Reason: Angina) ezetimibe 10 mg Tablet 10 mg PO QAM dutasteride 0.5 mg Capsule 0.5 mg PO QDL rosuvastatin 40 mg Tablet 40 mg PO QAM buspirone 5 mg tablet 5 mg PO BID famotidine 20 mg Tablet 20 mg PO DAILY PRN (Reason: Heartburn) mirtazapine 15 mg Tablet 15 mg PO HS clopidogrel 75 mg Tablet 75 mg PO QAM Qty: 30 2RF pregabalin 75 mg capsule 75 mg PO AMHS furosemide 40 mg tablet 40 mg PO QAM amiodarone 200 mg tablet 200 mg PO QDB warfarin 1 mg tablet 1 mg PO QPM Rx Instructions: as directed carvedilol 3.125 mg tablet 3.125 mg PO AMPM potassium chloride 10 mEq tablet,ER particles/crystals 20 meq PO QAM pantoprazole [Protonix] 40 mg tablet,delayed release (DR/EC) 40 mg PO QAM tamsulosin 0.4 mg capsule 0.4 mg PO QDL cyanocobalamin (vitamin B-12) 1,000 mcg Tablet, Sublingual 1,000 mcg SUBLINGUAL QAM Eliquis 5 mg tablet 5 mg PO AMHS Referrals Referrals: Leon Galvan, [Primary Care Provider] -
[2024-08-28] MEDS: ACETAMINOPHEN 1,000 MG/100 ML VIAL IV STA (15:44)
[2024-08-28 15:50] LABS: Basophils # (auto) 0.03 K/uL (0.00-0.20); Basophils % (auto) 0.5 %; Eosinophils # (auto) 0.24 K/uL (0.00-0.50); Eosinophils % (auto) 3.7 %; Hemoglobin 12.9 g/dl (14.0-18.0); Immature Granulocytes # (auto) 0.01 K/uL (0.01-0.20); Immature Granulocytes % (auto) 0.2 %; Lymphocytes # (auto) 1.27 K/uL (1.20-3.40); Lymphocytes % (auto) 19.5 %; Mean Corpuscular Hemoglobin 32.3 pg (25.0-34.0); Mean Corpuscular Hgb Conc 33.9 g/dL (32.0-36.0); Mean Corpuscular Volume 95.2 fL (80.0-100.0); Mean Platelet Volume 10.5 fL (9.4-12.4); Monocytes # (auto) 0.52 K/uL (0.11-0.59); Neutrophils # (auto) 4.44 K/uL (1.40-6.50); Neutrophils % (auto) 68.1 %; Platelet Count 247 K/uL (130-400); RDW Coefficient of Variation 14.1 % (11.5-14.5); RDW Standard Deviation 49.2 fL (36.4-46.3); Red Blood Count 3.99 M/uL (4.70-6.10); White Blood Count 6.51 K/ul (4.8-10.8)
--- NOTE | 2024-08-28 15:58 | XRay Report ---
XR chest 1V portable CLINICAL HISTORY: syncope COMPARISON STUDY: 08/06/2024 FINDINGS: Single view portable chest demonstrates no acute cardiopulmonary process. There is no infil trate or pleural effusion. No pneumothorax. The heart is mildly enlarged. Is evidence of prior espitia ry artery bypass surgery. The pulmonary vascularity is unremarkable. There is a nipple shadow left lo wer lobe. The previously suspected left midlung nodule was not reproducible. IMPRESSION: No acute process ACT 112: Negative or not required by law. Electronically signed by: Jhoana Avalos M.D. 08/28/2024 3:57 PM
--- NOTE | 2024-08-28 15:59 | XRay Report ---
XR shoulder RT min 2V routine CLINICAL HISTORY: R shoulder pain s/p fall COMPARISON: None FINDINGS: 3 views of the right shoulder demonstrate no acute traumatic osseous or articular injury. There is no fracture or dislocation. There is osteoarthritic change at the acromioclavicular joint wi th undersurface bony spurring. There is no periarticular calcification. IMPRESSION: No acute traumatic injury. ACT 112: Negative or not required by law. Electronically signed by: Jhoana Avalos M.D. 08/28/2024 3:58 PM
[2024-08-28 16:12] LABS: Troponin I High Sensitivity 16.6 pg/ml (0-20)
[2024-08-28 16:15] LABS: Potassium 4.3 mmol/L (3.5-5.1)
--- NOTE | 2024-08-28 16:16 | Electrocardiogram Report ---
Test Reason : Blood Pressure : */* mmHG Vent. Rate : 67 BPM Atrial Rate : 67 BPM P-R Int : 184 ms QRS Dur : 98 ms QT Int : 496 ms P-R-T Axes : 78 65 115 degrees QTcB Int : 524 ms Normal sinus rhythm Left ventricular hypertrophy with repolarization abnormality Anterolateral infarct (cited on or before 26-May-2014) Prolonged QT Abnormal ECG When compared with ECG of 06-Aug-2024 14:22, Nonspecific T wave abnormality now evident in Inferior leads QT has lengthened Confirmed by Yair Ames ([id number]) on 08/28/2024 4:16:08 PM Referred By: Confirmed By: Yair Ames
[2024-08-28 16:20] LABS: Prothrombin Time 10.8 Seconds (9.0-12.0)
[2024-08-28 16:21] LABS: Albumin Globulin Ratio 1.3 (0.9-2); Albumin Level 4.1 gm/dl (3.4-5.0); BUN Creatinine Ratio 26.8 (10-20); Bilirubin,Total 0.3 mg/dl (0.2-1.0); Calcium 8.8 mg/dl (8.6-10.3); Creatinine Clr Calc Pharmacy 41.3 ml/min; Globulin 3.1 gm/dl (2.5-4.0); Magnesium 2.2 mg/dl (1.7-2.4); Thyroid Stimulating Hormone 3.243 uIu/ml (0.300-4.500); Total Protein 7.2 gm/dl (6.0-8.3)
--- NOTE | 2024-08-28 16:38 | CT Scan Report ---
Clinical History: Syncope. Technique: Axial computed tomography images were obtained of the brain from the vertex to the skull base without intravenous contrast. Comparison is made to the prior CT dated 08/06/2024 Findings: There is no sign of intracranial hemorrhage. There is normal andersen-white matter differentiation with no sign of acute or old infarction. No midline shift or other form of herniation is identified. There is no hydrocephalus. No obvious mass lesion is seen on this noncontrast examination. The visualized portions of the orbits and paranasal sinuses appear unremarkable. The mastoid air cells appear clear Impression: Unremarkable noncontrast CT of the brain Electronically signed by Jeff Copeland 08-28-2024 4:38 PM
--- NOTE | 2024-08-28 18:42 | History & Physical Report ---
Date of Service August 28, 2024 Assessment & Plan (1) Orthostatic syncope: (2) Contusion of right shoulder: (3) Chronic heart failure with reduced ejection fraction (HFrEF, <= 40%): (4) Ischemic cardiomyopathy: (5) CAD (coronary artery disease): Plan Patient 74-year-old gentleman presents to the emergency room with acute syncopal event. His history with lightheadedness and near syncopal symptoms with changes in position over the last week to 10 days is highly consistent with orthostatic syncope. Patient is at high risk for recurrent syncopal events and injury at home and needs to be cared for in the hospital. Admit to monitored setting Patient is on multiple medications that can cause orthostasis including beta- zeferino, diuretic, amiodarone, Proscar, tamsulosin. Check orthostatic vital signs twice daily Will hold furosemide is the first intervention for addressing his suspected orthostasis. Will put hold parameters on the tamsulosin and Proscar for SBP less than [address]. [address] him on any type of fluid restriction at this time, but will not give IV fluids unless he would become more symptomatic or more issues with syncope or near syncope in light of his reduced ejection fraction. Check bladder scan to ensure that patient is not having retention as previous Creatinine is only minimally elevated, does not meet criteria for BIJAL at this point, suspect patient may be a bit volume depleted again we will be holding Lasix and continue to monitor renal function. History of Present Illness Chief Complaint: Passed out and fell at home Primary Care Provider: Leon Galvan DO Patient is a 74-year-old gentleman who presents to the emergency room with above complaint. Patient has known ejection fraction about 30 to 35% and recently went coronary bypass grafting in June 2024. Patient also had a recent hospitalization for fall and what may have been a near syncopal event at that time. Since he has been home patient states that overall been doing well but for the past 7 to 10 days he has noticed intermittently when he gets up he gets a little lightheaded and dizzy. He has noticed this when he gets up and walks back to his bedroom or walks back to the kitchen after he has been sitting or laying down for a while. Today he was sitting on the couch he quickly got up and was walking into the kitchen to get a drink where he passed out. Brought to the emergency room for evaluation. In the emergency room blood pressure has been running on a little bit of the lower side. Orthostatic vital signs have not yet been performed. Rest of his workup is unremarkable. Head CT shows no acute changes, shoulder x-ray no acute trauma.His creatinine is slightly increased from his most recent reading but appears to be somewhat within his baseline. On his last hospitalization the patient did have some issues with urinary retention. He went home with a Bejarano catheter. He says been subsequently removed and he has been urinating without any difficulties. He states has been eating and drinking well. No chest pain, no shortness of breath, no palpitations. He did have some brief post operative atrial fibrillation after his CABG. He is on amiodarone for rhythm control and Eliquis for secondary stroke prevention. He states he has been moving his bowels without any difficulty. Has not noticed any swelling in his hands arms legs or feet. Allergies Allergy/AdvReac Type Severity Reaction Status Date / Time codeine Allergy Mild "SKIN Verified 06/25/24 09:05 STARTS FALLING OFF" Home Medications Medication Instructions Recorded Confirmed Type bupropion HCl 150 mg tablet,12 hr 150 mg PO BID 01/13/19 08/28/24 History sustained-release dutasteride 0.5 mg capsule 0.5 mg PO QDL 01/13/19 08/28/24 History ezetimibe 10 mg tablet 10 mg PO QAM 01/13/19 08/28/24 History nitroglycerin 0.4 mg sublingual 0.4 mg sublingual UD PRN Angina 01/13/19 08/28/24 History tablet ropinirole 0.5 mg tablet 0.5 mg PO HS 01/13/19 08/28/24 History rosuvastatin 40 mg tablet 40 mg PO QAM 01/13/19 08/28/24 History buspirone 5 mg tablet 5 mg PO BID 07/27/20 08/28/24 History famotidine 20 mg tablet 20 mg PO DAILY PRN Heartburn 10/17/22 08/28/24 History mirtazapine 15 mg tablet 15 mg PO HS 10/17/22 08/28/24 History clopidogrel 75 mg tablet 75 mg PO QAM #30 tabs 12/21/22 08/28/24 Rx amiodarone 200 mg tablet 200 mg PO QDB 08/06/24 08/28/24 History carvedilol 3.125 mg tablet 3.125 mg PO AMPM 08/06/24 08/28/24 History cyanocobalamin (vitamin B-12) 1,000 mcg sublingual QAM 08/06/24 08/28/24 History 1,000 mcg sublingual tablet furosemide 40 mg tablet 40 mg PO QAM 08/06/24 08/28/24 History pantoprazole 40 mg tablet,delayed 40 mg PO QAM 08/06/24 08/28/24 History release (Protonix) potassium chloride 10 mEq 20 meq PO QAM 08/06/24 08/28/24 History tablet,extended release(part/cryst) pregabalin 75 mg capsule 75 mg PO AMHS 08/06/24 08/28/24 History tamsulosin 0.4 mg capsule 0.4 mg PO QDL 08/06/24 08/28/24 History apixaban 5 mg tablet (Eliquis) 5 mg PO AMHS 08/28/24 08/28/24 History Past Med/Surg History Problem List (Updated 08/28/24 @ 18:38 by Daniele Obando DO) Chronic heart failure with reduced ejection fraction (HFrEF, <= 40%) Contusion of right shoulder Orthostatic syncope Acute pain of right shoulder (Acute) BIJAL (acute kidney injury) (Acute) Syncope and collapse (Acute) BIJAL (acute kidney injury) (Acute) Syncope (Acute) Urinary retention BIJAL (acute kidney injury) Lumbar radiculopathy Ischemic cardiomyopathy Smoker Hypertensive emergency Hypertensive emergency without congestive heart failure On home oxygen therapy 2L N/C at hs Weakness Hypertensive urgency Asthma (Chronic) CAD (coronary artery disease) (Chronic) COPD (chronic obstructive pulmonary disease) (Acute) DM type 2 (diabetes mellitus, type 2) (Chronic) Chronic systolic heart failure (Chronic) Pulmonary nodule (Chronic) BPH (benign prostatic hypertrophy) (Chronic) Dyslipidemia (Chronic) Gout (Chronic) HTN (hypertension) (Chronic) Restless legs syndrome (RLS) (Chronic) Lowe's esophagus (Chronic) Stented coronary artery (Chronic) "LAD stent 10/08/04" History of back surgery (Chronic) History of prostate surgery (Chronic) "TULIP" H/O cystoscopy (Chronic) Precordial chest pain (Acute) TIA (transient ischemic attack) (Acute) Encounter for pre-operative examination Encounter for pre-operative examination Encounter for pre-operative examination TIA (transient ischemic attack) (Acute) HTN (hypertension) (Acute) Headache (Acute) GERD (gastroesophageal reflux disease) (Chronic) Medical History Hx of gout On anticoagulant therapy effient daily Restless leg syndrome Hypertension Hyperlipidemia 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 Box Sleep apnea oxygen--2L N/C Chronic obstructive pulmonary disease Asthma Surgical History History of bilateral cataract extraction History of cystoscopy History of lumbosacral spine surgery History of colonoscopy History of esophagogastroduodenoscopy (EGD) History of appendectomy History of tooth extraction all teeth History of tonsillectomy History of heart artery stent TOTAL OF 4 STENTS PLACED DURING 4 CATH PROCEDURES; last 2016 History of cardiac cath multiple--last 2016, S Family History Sister Family history of diabetes mellitus Other No family history of adverse response to anesthesia Social History Smoking Status: Current every day smoker Tobacco Type: Cigarettes Cigarettes Per Day: 4; Second Hand Exposure: Yes; Do You Dip or Chew Tobacco: No; Hx Alcohol Use: No Hx Substance Use: No Preferred Language: Iranian Communication Ability: Effective Vegetable Cutter Required: No Beliefs That Will Affect Care: None marital status: Current Living Situation: Family Current Living Situation Comment: and brother in law Feels Safe at Home: Yes Assistive Devices: None Review of Systems Review of Systems: Pertinent positive and negative review of systems as mentioned in the HPI Physical Exam Physical Exam: Constitutional: Alert, nontoxic, no acute distress HEENT: Mucous membranes moist. Sclera clear Neck: Soft, no adenopathy Lungs: Clear to auscultation, decreased, no wheezes rales or rhonchi CV: S1-S2, regular Abdomen: Soft, nontender, nondistended Extremities: No significant edema Musculoskeletal: No significant joint tenderness Neuro: No focal deficits Psych: Cooperative, normal mood Results & Data Results & Data Vital Signs (Past 12 Hours) Vital Signs Temp Pulse Resp BP BP Pulse Ox O2 Del Method 08/28/24 17:30 61 11 L 97 08/28/24 17:30 100/66 08/28/24 17:00 106/75 08/28/24 17:00 106/75 08/28/24 17:00 63 11 L 08/28/24 16:30 62 10 L 99 08/28/24 16:30 116/76 08/28/24 16:15 65 14 08/28/24 15:52 65 08/28/24 15:44 130/86 08/28/24 15:42 98 Room Air 08/28/24 15:36 67 17 99 08/28/24 15:34 143/86 H 08/28/24 15:31 143/86 H 08/28/24 15:27 68 13 96 08/28/24 15:24 36.6 C 68 16 98 Room Air Diagnostic Findings Reviewed imaging, laboratory and diagnostic studies. Pertinent findings as below. WBC 6.5 Hemoglobin 12.9 Platelets 247 Electrolytes stable Creatinine 1.42 Glucose 149 Personally reviewed chest x-ray, no acute infiltrate or evidence of pulmonary congestion, hyperinflated lungs Personally reviewed EKG, normal sinus rhythm no acute ST-T wave changes Reviewed echocardiogram from July 2024, ejection fraction 30 to 35%.No pulmonary hypertension, small apical thrombus. Code Status & VTE Plan VTE Prophylaxis Plan VTE Prophylaxis will be ordered: No Reason for no VTE drug order: Contraindicated
[2024-08-28] MEDS ORDERED: ONDANSETRON INJ 2 MG/ML 2 ML VIAL IV PRN (20:43)
[2024-08-28] MEDS ORDERED: FAMOTIDINE 20 MG TAB PO PRN (20:43)
[2024-08-28] MEDS ORDERED: ACETAMINOPHEN 325 MG TAB PO PRN (20:43)
[2024-08-28] MEDS ORDERED: POLYETHYLENE (MIRALAX) 17 GM PACK PO PRN (20:43)
[2024-08-28] MEDS: busPIRone 5 MG TAB PO SCH (21:57)
[2024-08-28] MEDS: buPROPion SR 150 MG TABCR PO SCH (21:57)
[2024-08-28] MEDS: APIXABAN 5 MG TABLET PO SCH (21:57)
[2024-08-28] MEDS: PREGABALIN 75 MG CAP PO SCH (21:58)
[2024-08-28] MEDS: MIRTAZAPINE TAB 15 MG TAB PO SCH (21:58)
[2024-08-28] MEDS: carvediloL 3.125 MG TAB PO SCH (21:59)
[2024-08-28] MEDS: rOPINIRole HCL 0.25 MG TABLET PO SCH (22:11)
--- OUTSIDE RECORDS SUMMARY | 2024-08-28 23:22 | External Medical Summary | Summary of Care ---
Author Name Unknown Organization [facility] Address [address] [place] [address] Phone [phone] Care Team Providers Care Maintenance Shop Manager Name Role Phone Fitz Galvan DO Primary Care Provider Reason for Visit * Reason Onset Date Comments Medication Refill 08/21/2024 Encounter Details Date Type Department Care Team (Late st Contact Info) Description 08/21/2024 Refill [facility], [facility] [address] [place] [address] Jhoana Fried, RN [address] [facility] [place] [address] Heart failure, systolic, due to CAD (HCC)*; Gastroesophageal reflux disease without esophagitis Allergies Active Allergy Reactions Criticality Noted Date Comments Codeine Other (Please comment) High 09/08/2013 Severe Skin peeling documented as of this encounter (statuses as of 08/22/2024) Medications oxygen GASIndications:C hronic coronary artery disease,COPD, mild (HCC),Heart failure, systolic, due to CAD (HCC) Use 2 L/min(Oxygen) as directed at bedtime. 1 Each 10/21/19 17 Active Acetaminophen 325 MG Oral Tablet Take 1 Tablet by mouth every 6 hours as needed. Active Dutasteride 0.5 MG Oral Capsule (Avodart)Indicat ions:BPH with obstruction/lowe r urinary tract symptoms Take 1 Capsule by mouth in the morning. 100 Capsule 3 11/21/2023 10:41 AM EDT 02/07/20 23 Active Additional Information Patient taking differently:0.5 mg OralDAILY NOON, Reported on 08/21/2024 buPROPion HCl ER (SR) 150 MG Oral [...] 23 Active Ezetimibe 10 MG Oral Tablet (Zetia)Indicatio ns:Dyslipidemia, goal LDL below 70 TAKE ONE TABLET BY MOUTH DAILY 100 Tablet 3 11/21/2023 10:41 AM EDT 02/07/20 23 Active Mirtazapine 15 MG Oral Tablet (Remeron)Indicat [...] taking differently:0.4 mg OralDAILY NOON, Reported on 08/21/2024 Pregabalin 75 MG Oral Capsule (Lyrica) Take 1 Capsule by mouth in the morning and 1 Capsule before bedtime. 60 Capsule 07/15/19 25 Active B-12-SL 1000 MCG Sublingual Tablet Sublingual (Cyanocobalamin) Indications:[place] min B [address] 1,000 mcg under the tongue in the morning. 08/01/19 25 Active rOPINIRole HCl 0.5 MG Oral Tablet (Requip)Indicati ons:Restless legs syndrome Take 1 Tablet by mouth at bedtime. 08/01/19 25 Active Polyethylene Glycol 3350 17 GM/SCOOP Oral Powder (MiraLax)Indicat ions:Slow transit constipation Take 17 g by mouth in the morning. Dissolve one heaping tablespoon in 8 ounces of water or juice.. 510 g 1 08/05/19 25 Active Nicotine Polacrilex 4 MG Mouth/Throat Lozenge (Nicorette) Administer 1 Lozenge to inside of cheek every 2 hours as needed. Max 20 per day 08/07/19 25 Active Potassium Chloride Joyce ER 10 MEQ Oral Tablet Extended ReleaseIndicatio ns:Heart failure, systolic, due to CAD (HCC) Take 2 Tablets by mouth in the morning. 200 Tablet 08/13/2024 1:04 PM EST 08/08/19 25 Active Carvedilol 3.125 MG Oral Tablet (Coreg)Indicatio ns:HTN, goal below 140/90,Paroxysma l atrial fibrillation (HCC) Take 1 Tablet by mouth 2 times a day with morning and evening meals. 200 Tablet 08/13/2024 1:04 PM EST 08/08/19 25 Active Amiodarone HCl 200 MG Oral Tablet (Cordarone)Indic ations:Paroxysma l atrial fibrillation (HCC) Take 1 Tablet by mouth daily with breakfast. 100 Tablet 08/13/2024 1:04 PM EST 08/08/19 25 Active Apixaban 5 MG Oral Tablet (Eliquis) Take 1 Tablet by mouth in the morning and 1 Tablet before bedtime. Active Famotidine 20 MG Oral Tablet (Pepcid) Take 1 Tablet by mouth in the morning and 1 Tablet before bedtime. As needed for heartburn. Active Pantoprazole Sodium 40 MG Oral Tablet Delayed Release (Protonix)Indica tions:Gastroesop hageal reflux disease without esophagitis Take 1 Tablet by mouth in the morning. 90 Tablet 08/22/19 25 Active Furosemide 40 MG Oral Tablet (Lasix)Indicatio ns:Heart failure, systolic, due to CAD (HCC) Take 1 Tablet by mouth in the morning. 90 Tablet 08/22/19 25 Active Furosemide 40 MG Oral Tablet (Lasix) Take 1 Tablet by mouth in the morning. 30 Tablet 07/15/19 25 025 Discontin ued(Refil l) Pantoprazole Sodium 40 MG Oral Tablet Delayed Release (Protonix)Indica tions:Gastroesop hageal reflux disease without esophagitis Take 1 Tablet by mouth in the morning. 30 Tablet 07/30/19 25 025 Discontin ued(Refil l) documented as of this encounter (statuses as of 08/22/2024) Active Problems Problem Noted Date Diagnosed Date Atrial fibrillation 08/01/2024 Impaired mobility and ADLs 07/17/2024 S/P CABG x 4 07/08/2024 Coronary artery disease invo lving wilton coronary artery of w[place] heart with unstable angina pectoris 07/03/2024 Vitamin [...] failure, systolic, due to CAD 09/08/2013 Old [place] (myocardial infarction) 09/08/2013 Dyslipidemia, goal LDL below 70 06/15/2009 Overview (06/15/2009): Per Lipid Taxonomy. Esophageal reflux 12/03/2007 BPH without obstruction/lower urinary tract symp toms 08/03/2006 Tobacco use disorder 06/03/2002 documented as of this encounter (statuses as of 08/22/2024) Resolved Problems Problem Noted Date Diagnosed Date Resolved Date Type 2 diabetes mellitus wit h autonomic neuropathy 08/17/2023 09/17/2023 Atherosclerosis of [place] co ronary artery without angina pectoris 08/17/2023 [...] as of this encounter (statuses as of 08/22/2024) Immunizations Name Administration Dates Next Due COVID-19 [...] the money to buy more. Never true 08/05/19 25 Within the past 12 months, t he food you bought just didn't last and you didn't have money to get more. Never true 08/05/2024 Childcare Answer Date Recorded Do you feel overwhelmed with taking care of a child, family member or friend? No 08/05/2024 Does your family need help f inding childcare? (Household - for ages 0-17 years) Not on file 08/05/2024 Clothing Answer Date Recorded Have you been unable to get clothing when it was really needed? No 08/05/2024 Is your family able to get c lothes or diapers when needed? (Household - for ages 0-17 years) Not on file 08/05/2024 Personal Safety Answer Date Recorded Do you feel unsafe or have concerns for your saf ety? No 08/05/2024 Do you have concerns for you r family's safety? (Household - for ages 0-17 years) Not on file 08/05/2024 Utilities Answer Date Recorded Do you have trouble paying y our heating, water, or electric bill? No 08/05/2024 Is your family able to pay t he heat, water, or electric bill? (Household - for ages 0-17 years) Not on file 08/05/2024 Does your family have access to good internet? (Household - for ages 0-17 years) Not on file 08/05/2024 Employment Status Answer Date Recorded Are you unemployed or without regular income? No 08/05/2024 Does the household have a re gular source of income? (Household - for ages 0-17 years) Not on file 08/05/2024 Social Connections Answer Date Recorded How often do you feel lonely or isolated from th ose around you? Never 08/05/2024 Financial Resource Strain Answer Date R ecorded Do you have any trouble payi ng for your medications, or do you think you might in the future? No 08/05/2024 Does your family have troubl e paying for medicine? (Household - for ages 0-17 years) Not on file 08/05/2024 Transportation Needs Answer Date Record ed Do you have trouble getting a ride to medical visits or work? (Adult - for ages 18 years and over) Not on file 08/05/2024 Does your family have a hard time getting a ride to doctors visits? (Household - for ages 0-17 years) Not on file 08/05/2024 Has lack of transportation k ept you from medical appointments, meetings, work, or from getting things needed for daily living? Check all that apply. No 08/05/2024 Do you (or your family) have trouble finding or paying for a ride (transportation)? (Household - for ages 0-17 years) Not on file 08/05/2024 Housing Stability Answer Date Recorded Do you currently live in a s helter or have no steady place to sleep at night? No 08/05/2024 Do you think you are at risk of becoming homeless? (Adult - for ages 18 years and over) Not on file 08/05/2024 Does your family worry about paying for your home or becoming homeless? (Household - for ages 0-17 years) Not on file 0 08/05/2024 Are you homeless or worried that you might be in the future? No 08/05/2024 Are you (or your family) scottie eless or worried that you might be in the future? (Household - for ages 0-17 years) Not on file Food Insecurity Answer Date Recorded Do you need food for this week? No 08/05/2024 Are you able to get enough f ood for your family? (Household - for ages 0-17 years) Not on file 08/05/2024 Does your family need food t his week? (Household - for ages 0-17 years) Not on file 08/05/2024 Do you always have enough fo od for your family? (Household - for ages 0-17 years) Not on file 08/05/2024 Food Insecurity Answer Date Recorded Within the past 12 months, y ou worried that your food would run out before you got the money to buy more. Never true 08/05/19 25 Within the past 12 months, t he food you bought just didn't last and you didn't have money to get more. Never true 08/05/2024 Do you need food for this week? No 08/05/2024 Sex and Gender Information Value Date Recorded Sex Assigned at Male 02/20/2019 8:49 AM EDT Legal Sex Male 5:44 AM EST Gender Identity Male 02/20/2019 8:49 AM EDT Sexual Orientation Choose not to disclose 2018 8:49 AM EDT documented as of this encounter Miscellaneous Notes * Telephone Encounter - Fitz Galvan DO - 08/22/2024 5:05 AM ESTSigned Prescriptions: Disp Refills Pantoprazole Sodium 40 MG Oral Tablet Jamila*90 Tab*3 Sig: Take 1 Tablet by mouth in the morning.Authorizing Provider: FITZ GALVAN Furosemide 40 MG Oral Tablet (Lasix) 90 Tab*3 Sig: Take 1 Tablet by mouth in the morning.Authorizing Provider: FITZ GALVAN------ * Telephone Encounter - Jhoana Fried RN - 08/21/2024 3:36 PM EST Pt in need of refill of Pantoprazole and furosemide Scripts pended for your review and signature. Please send to [employer] Mail order Thanks! documented in this encounter Plan of Treatment Upcoming Encounters Date Type Department Care Team (Late st Contact Info) Description 08/25/2024 10:30 AM EST [facility]icine [facility], [address] [place] [address] [facility] [address] [place] [address] [place] [id number] 08/25/2024 11:00 AM EST [facility] [address] [place] [address] [place] [address] [facility] [address] [place] [address] [place] [address] 08/27/2024 10:30 AM EST [facility] [address] [place] [address] [place] [address] [facility] [address] [place] [address] [place] [address] 09/01/2024 10:30 AM EST [facility] [address] [place] [address] [place] [address] [facility] [address] [place] [address] [place] [address] 09/01/2024 1:00 PM EST Office Visit Family Practice [address] [place] [address] [address] [place] [address] Fitz Galvan, 293 [place] [address] 09/02/2024 11:40 AM EST Office Visit Pharmacy, [facility] [place] [address] [facility] 132 [facility] [place] [address] 09/03/2024 10:30 AM EST [facility] [address] [place] [address] [place] [address] [facility] [address] [place] [address] [place] [address] 09/03/2024 12:30 PM EST [facility] [address] [place] [address] [place] [address] [facility] [address] [place] [address] [place] [address] 09/08/2024 10:30 AM EST [facility] [address] [place] [address] [place] [address] [facility] [address] [place] [address] [place] [address] 09/10/2024 10:30 AM EST [facility] [address] [place] [address] [place] [address] [facility] [address] [place] [address] [place] [address] 09/10/2024 12:30 PM EST [facility] [address] [place] [address] [place] [address] [facility] [address] [place] [address] [place] [address] 09/15/2024 10:30 AM EDT Tele[facility]icine [facility] [address] [place] [address] [place] [address] [facility] [address] [place] [address] [place] [address] 09/17/2024 8:40 AM EDT Office Visit Family Practice [address] [place] [address] [address] [place] [address] Fitz Galvan, DO 293 [place] [address] 09/17/2024 10:30 AM EDT [facility] [address] [place] [address] [place] [address] [facility] [address] [place] [address] [place] [address] 09/17/2024 11:00 AM EDT [facility]icine [facility] [address] [place] [address] [place] [address] [facility] [address] [place] [address] [place] [address] 09/18/2024 8:00 AM EDT Office Visit Cardiology, [facility] [address] [place] [address] Alexandra Mackenzie CRNP [address] [place] [address] 09/22/2024 10:30 AM EDT [facility] [address] [place] [address] [place] [address] [facility] [address] [place] [address] [place] [address] 09/24/2024 10:30 AM EDT [facility] [address] [place] [address] [place] [address] [facility] [address] [place] [address] [place] [address] 09/24/2024 11:00 AM EDT [facility] [address] [place] [address] [place] [address] [facility] [address] [place] [address] [place] [address] 09/29/2024 9:00 AM EDT [facility] Visit [facility] [place] [address] Pito Rodriguez PA-C [address] [place] [address] 09/29/2024 10:30 AM EDT [facility] [address] [place] [address] [place] [address] [facility] [address] [place] [address] [place] [address] 10/01/2024 10:30 AM EDT [facility] [address] [place] [address] [place] [address] [facility] [address] [place] [address] [place] [address] 10/06/2024 10:30 AM EDT [facility] [address] [place] [address] [place] [address] [facility] [address] [place] [address] [place] [address] 10/08/2024 10:30 AM EDT [facility] [address] [place] [address] [place] [address] [facility] [address] [place] [address] [place] [address] 10/10/2024 3:30 PM EDT Imaging Radiology [facility] [address] [place] [id number] 10/13/2024 10:30 AM EDT [facility] [address] [place] [address] [place] [address] [facility] [address] [place] [address] [place] [address] 10/15/2024 10:30 AM EDT [facility] [address] [place] [address] [place] [address] [facility] [address] [place] [address] [place] [address] 10/15/2024 1:30 PM EDT Home Visit [facility] [address] [place] [address] Jhoana Fried, RN [address] [place] [address] 10/17/2024 9:00 AM EDT Office Visit Urology, [place] [address] [place] [address] Johnathon Kent PA-C [address] [place] [address] 02/06/2025 9:30 AM EDT Office Visit Cardiology, [facility] [address] [place] [address] Poncho Robledo DO [address] [place] [address] Health Maintenance Due Date Last Done Comments Cologuard 1995 Sigmoidoscopy 1995 Fecal Occult Blood Test 12/20/2008 12/21/2007 *ADVANCE DIRECTIVE NOT ON FILE 2019 DISCUSS TOBACCO CESSATION (REFER TO SMARTSET #3291) 06/18/2024 06/18/2023, 01/24/2017 COVID-19 Vaccine ( season) 2024 06/16/2024, 06/16/2024, 05/07/2023, Additional history exists Adult Wellness Visit 02/17/2025 02/18/2024, 10/31/2022, 08/17/2021 Depression Screening 02/17/2025 02/18/2024, 01/02/20 24 O2 ASSESSMENT COMPLETED IN PAST YEAR FOR COPD 07/08/2025 07/08/2024 GFR 08/13/2025 08/13/2024, 07/10, 07/15/2024, Additional history exists Albumin/Creatinine Ratio 08/17/2026 024, [...] Completed 09/17/2023, 08/09, 03/23/2022, Additional history exists Influenza Vaccine (FLU shot) Completed 06/16/2024, 05/07/2023, 03/22/2022, Additional history exists HPV (Gardasil) Vaccine Aged Out No lo nger eligible based on patient's age to complete this topic Hepatitis B Vaccine Aged Out No longe r eligible based on patient's age to complete this topic MENINGOCOCCAL (MENACTRA/MENVEO) Aged Out No longer eligible based on patient's age to complete this topic Meningitis B Vaccine (Bexsero/Trumemba) Aged Out No longer eligible based on patient's age to complete this topic documented as of this encounter Medical Devices Implanted Type Area Groundhand Device Identifier Shelf Expiration Date Model / Serial / Lot Lead Kit Trial [id number] 50cm - [id number] - [id number] Implanted:Qty: 1 on 05/08/2024 by Maged Monreal DO at [facility] Left: Back [employer] : PAIN MGMT 03/18/2026 [id number] / [id number] / Lead Kit Trial [id number] 50cm - [id number] - [id number] Implanted:Qty: 1 on 05/08/2024 by Maged Monreal DO at OR [facility] Right: Back [employer] : PAIN MGMT 03/18/2026 [id number] 50E0 / [id number] / Suture Steel 6 B&S19 M654g - [id number] Implanted:Qty: 1 on 07/08/2024 by Jayden Galvan MD at [place] [facility] N/A: Sternum JNJ : [employer] 03/08/2029 [id number] / / [id number] Marker Coronary - [id number] Implanted:Qty: 1 on 07/08/2024 by Jayden Galvan MD at [place] [facility] N/A: Heart [employer] 05/08/2027 [facility] / / [id number] Marker Coronary - [id number] Implanted:Qty: 1 on 07/08/2024 by Jayden Galvan MD at [place] [facility] N/A: Heart [employer] 06/07/2027 [facility] / / [id number] documented as of this encounter Visit Diagnoses Diagnosis Heart failure, systolic, due to CAD (HCC)- Primary Unspecified systolic heart failure Gastroesophageal reflux disease without esophagitis Esophageal reflux documented in this encounter Advance Directives * Full Code (Latest Code Status on File) Date Activated Date Inactivated Comments 07/08/2024 12:14 PM 07/15/2024 5:39 PM This order reflects the patients wishes and were consensually agreed upon. Question Answer Comments Discussion of Advance Directives occurred with: Patient Care Teams Maintenance Shop Manager Relationship Specialty Start Date End Date Fitz Galvan DO [address] [place] [address] PCP - General Internal Medicine 12/28/23 documented as of this encounter
--- OUTSIDE RECORDS SUMMARY | 2024-08-28 23:23 | External Medical Summary | Summary of Care ---
Author Name Unknown Organization [facility] Address [address] [place] [address] Phone [phone] Care Team Providers Care Cook Boat Name Role Phone Leon Galvan DO Primary Care Provider [phone] Reason for Visit * Reason Onset Date Comments Triage Advice 08/20/202408/20 Encounter Details Date Type Department Care Team (Late st Contact Info) Description 08/20/2024 [facility] [address] [place] [address] Leon Galvan DO [address] [place] [address] Triage Advice (08/20) Allergies Active Allergy Reactions Criticality Noted Date Comments Codeine Other (Please comment) High 09/08/2013 Severe Skin peeling documented as of this encounter (statuses as of 08/21/2024) Medications oxygen GASIndications:C hronic coronary artery disease,COPD, [...] taking differently:0.5 mg OralDAILY NOON, Reported on 08/13/2024 buPROPion HCl ER (SR) 150 MG Oral [...] taking differently:0.4 mg OralDAILY NOON, Reported on 08/13/2024 Pregabalin 75 MG Oral Capsule (Lyrica) Take 1 Capsule by mouth in the morning and 1 Capsule before bedtime. 60 Capsule 07/15/19 25 Active Furosemide 40 MG Oral Tablet (Lasix) Take 1 Tablet by mouth in the morning. 30 Tablet 07/15/19 25 Active Warfarin Sodium 1 MG Oral Tablet (Coumadin) Take 1 tablet by mouth daily as directed by discharged instructions and the anticoagulation clinic. 14 Tablet 07/30/19 25 Active Additional Information Patient not taking.Reported on 08/13/2024 Pantoprazole Sodium 40 MG Oral Tablet Delayed [...] by mouth in the morning. 200 Tablet 3 5 1:04 PM EST 08/08/19 25 Active Carvedilol 3.125 MG Oral Tablet (Coreg)Indicatio ns:HTN, goal below 140/90,Paroxysma l atrial fibrillation (HCC) Take 1 Tablet by mouth 2 times a day with morning and evening meals. 200 Tablet 3 5 1:04 PM EST 08/08/19 25 Active Amiodarone HCl 200 MG Oral Tablet (Cordarone)Indic ations:Paroxysma l atrial fibrillation (HCC) Take 1 Tablet by mouth daily with breakfast. 100 Tablet 3 5 1:04 PM EST 08/08/19 25 Active Apixaban 5 MG Oral Tablet (Eliquis) Take 1 Tablet by mouth in the morning and 1 Tablet before bedtime. Active Famotidine 20 MG Oral Tablet (Pepcid) Take 1 Tablet by mouth in the morning and 1 Tablet before bedtime. As needed for heartburn. Active documented as of this encounter (statuses as of 08/21/2024) Active Problems Problem Noted Date Diagnosed Date Atrial fibrillation 08/01/2024 Impaired mobility and ADLs 07/17/2024 S/P CABG x 4 07/08/2024 Coronary artery disease invo lving [place] coronary artery of [place] heart with unstable angina pectoris 07/03/2024 Vitamin [...] as of this encounter (statuses as of 08/21/2024) Resolved Problems Problem Noted Date Diagnosed Date Resolved Date Type 2 diabetes mellitus wit h autonomic neuropathy 08/17/2023 09/17/2023 Atherosclerosis of [place] co ronary artery without angina pectoris 08/17/2023 [...] protocol #1 - 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 Thank you * Telephone Encounter - Debbie George LPN - 08/20/2024 3:23 PM EST Attempted to call patient, there was no answer, left voicemail. When patient returns call, ok for PRINCE to relay message, please refer to below documentation. If needed, can transfer to dedicated nurse line. Please let patient know Dr Galvan reviewed his bp and is happy with it. Thank you * Telephone Encounter - Leon Galvan DO - 08/20/2024 1:19 PM EST BP is good. * Telephone Encounter - Nelida Wahl RN - 08/20/2024 12:59 PM EST 142/78 at 1210 130/80 at 1230 Per OT Patient doing well; no complaints * Telephone Encounter - Nelida Wahl RN - 08/20/2024 12:41 PM EST HH OT to retake BP later today and call PCP office with result. Per HH RN, meds are being taken as prescribed. * Telephone Encounter - Leon Galvan DO - 08/20/2024 12:15 PM EST Take medications as directed. Repeat BP today * Telephone Encounter - Nelida Wahl RN - 08/20/2024 11:37 AM EST Civil Rights InvestigatorField Counsel: Cuca PEDRAZA from [facility] BP- 170/100. Took meds about 10 minutes prior. OT on the way out to see patient later today; will recheck then and update PCP office later today. No falls reported as well. Did not go to cardiology jah in [place] today due to weather. Bejarano catheter was discontinued 08/14; no issues with voiding nor s/sym of UTI. Review of Systems: Review of Systems Eyes: Negative for visual disturbance. Respiratory: Negative for chest tightness. Cardiovascular: Negative for chest pain. Gastrointestinal: Negative for constipation and diarrhea. Genitourinary: Negative for frequency, hematuria and urgency. Neurological: Negative for dizziness, syncope, light-headedness and headaches. Any additional recs? documented in this encounter Plan of Treatment Upcoming Encounters Date Type Department Care Team (Late st Contact Info) Description 08/21/2024 4:00 PM EST Home Visit [facility] at [facility] 132 [facility] [place] [address] Jhoana Fried RN 132 [facility] [place] [address] 08/25/2024 10:30 AM EST [facility] [address] [place] [address] [place] [address] [facility] [address] [place] [address] [place] [address] 08/25/2024 11:00 AM EST [facility] [address] [place] [address] [place] [address] [facility] [address] [place] [address] [place] [address] 08/27/2024 10:30 AM EST [facility] [address] [place] [address] [place] [address] [facility] [address] [place] [address] [place] [address] 09/01/2024 10:30 AM EST [facility] [address] [place] [address] [place] [address] [facility] [address] [place] [address] [place] [address] 09/01/2024 1:00 PM EST Office Visit Family Practice [address] [place] [address] 293 [facility] [place] [address] Leon Galvan, 293 [place] [address] 09/02/2024 11:40 AM EST Office [facility] [address] [facility] 132 [facility] [place] [address] 09/03/2024 10:30 AM EST [facility] [address] [place] [address] [place] [address] [facility] [address] [place] [address] [place] [address] 09/03/2024 12:30 PM EST [facility] [address] [place] [address] [place] [address] [facility] [address] [place] [address] [place] [address] 09/08/2024 10:30 AM EST [facility] [address] [place] [address] [place] [address] [facility] [address] [place] [address] [place] [address] 09/10/2024 10:30 AM EST [facility] [address] [place] [address] [place] [address] [facility] [address] [place] [address] [place] [address] 09/10/2024 12:30 PM EST [facility] [address] [place] [address] [place] [address] [facility] [address] [place] [address] [place] [address] 09/15/2024 10:30 AM EDT Telemedicine [facility] [address] [place] [address] [place] [address] [facility] [address] [place] [address] [place] [address] 09/17/2024 8:40 AM EDT Office Visit Family Practice [address] [place] [address] 293 [facility] [place] [address] Leon Galvan, 293 [place] [address] 09/17/2024 10:30 AM EDT [facility] [address] [place] [address] [place] [address] [facility] [address] [place] [address] [place] [address] 09/17/2024 11:00 AM EDT Telemedicine [facility] [address] [place] [address] [place] [address] [facility] [address] [place] [address] 09/18/2024 8:00 AM EDT Office Visit Cardiology, [facility] [address] [place] [address] Alexandra Mackenzie CRNP [address] [place] [address] 09/22/2024 10:30 AM EDT [facility] [address] [place] [address] [place] [address] [facility] [address] [place] [address] [place] [address] 09/24/2024 10:30 AM EDT Tele[facility] [address] [place] [address] [place] [address] [facility] [address] [place] [address] [place] [address] 09/24/2024 11:00 AM EDT Telemedicine [facility] [address] [place] [address] [place] [address] [facility] [address] [place] [address] [place] [address] 09/29/2024 9:00 AM EDT Home Visit [facility] at [facility] [address] [place] [address] Pito Rodriguez PA-C [address] [address] 09/29/2024 10:30 AM EDT Tele[facility] [address] [place] [address] [place] [address] [facility] [address] [place] [address] [place] [address] 10/01/2024 10:30 AM EDT Telemedicine [facility] [address] [place] [address] [place] [address] [facility] [address] [place] [address] 10/06/2024 10:30 AM EDT Telemedicine [facility] [address] [place] [address] [place] [address] [facility] [address] [place] [address] 10/08/2024 10:30 AM EDT Telemedicine [facility] [address] [place] [address] [place] [address] [facility] [address] [place] [address] 10/10/2024 3:30 PM EDT Imaging Radiology [address] [place] [phone] 10/13/2024 10:30 AM EDT Telemedicine [facility] [address] [place] [address] [place] [address] [facility] [address] [place] [address] [place] [address] 10/15/2024 10:30 AM EDT Telemedicine [facility] [address] [place] [address] [place] [address] [facility] [address] [place] [address] [place] [address] 10/17/2024 9:00 AM EDT Office Visit Urology, [place] [address] [place] [address] Johnathon Kent PA-C [address] [place] [facility] [address] 02/06/2025 9:30 AM EDT Office Visit Cardiology, [facility] 132 [place] [address] Poncho Robledo, [address] [place] [address] Health Maintenance Due Date Last Done Comments Cologuard 1995 Sigmoidoscopy 1995 Fecal Occult Blood Test 12/20/2008 12/21/2007 *ADVANCE DIRECTIVE NOT ON FILE 2019 DISCUSS TOBACCO CESSATION (REFER TO SMARTSET #3128) 06/18/2024 06/18/2023, 01/24/2017 Adult Wellness Visit 02/17/2025 [...] this encounter Medical Devices Implanted Type Area Rail Specialist Device Identifier Shelf Expiration Date Model / Serial / Lot Lead Kit Trial [id number] 50cm - [id number] - [id number] Implanted:Qty: 1 on 05/08/2024 by Maged Monreal DO at OR [facility] Left: Back [employer] : PAIN MGMT 03/18/2026 [id number] 50E0 / [id number] / Lead Kit Trial [id number] 50cm - [id number] - [id number] Implanted:Qty: 1 on 05/08/2024 by Maged Monreal DO at OR [facility] Right: Back [employer] : PAIN MGMT 03/18/2026 [id number] 50E0 / [id number] / Suture Steel 6 B&S19 M654g - [id number] Implanted:Qty: 1 on 07/08/2024 by Jayden Galvan MD at [place] [facility] N/A: Sternum JNJ : [employer] 03/08/2029 M654G / / [id number] Marker Coronary - [id number] Implanted:Qty: 1 on 07/08/2024 by Jayden Galvan MD at [place] [facility] N/A: Heart [employer] 05/08/2027 AM-SD / / [id number] Marker Coronary - [id number] Implanted:Qty: 1 on 07/08/2024 by Jayden Galvan MD at [place] [facility] N/A: Heart [employer] 06/07/2027 AM-SD / / [id number] documented as of this encounter Advance Directives * Full Code (Latest Code Status on File) Date Activated Date Inactivated Comments 07/08/2024 12:14 PM 07/15/2024 5:39 PM This order reflects the patients wishes and were consensually agreed upon. Question Answer Comments Discussion of Advance Directives occurred with: Patient Care Teams Cook Boat Relationship Specialty Start Date End Date Leon Galvan DO [address] [facility] [place] [address] PCP - General Internal Medicine 12/28/23 documented as of this encounter
--- OUTSIDE RECORDS SUMMARY | 2024-08-28 23:23 | External Medical Summary | Summary of Care ---
Author Name Unknown Organization [facility] Address [address] [place] [address] Phone [phone] Care Team Providers Care Teacher Dancing Name Role Phone Leon Galvan DO Primary Care Provider [phone] Reason for Visit * Reason Onset Date Comments Triage Advice 08/20/202408/20 Encounter Details Date Type Department Care Team (Late st Contact Info) Description 08/20/2024 [facility] [address] [place] [address] Leon Galvan DO [address] [place] [address] Triage Advice (08/20) Allergies Active Allergy Reactions Criticality Noted Date Comments Codeine Other (Please comment) High 09/08/2013 Severe Skin peeling documented as of this encounter (statuses as of 08/20/2024) Medications oxygen GASIndications:C hronic coronary artery disease,COPD, [...] as of this encounter (statuses as of 08/20/2024) Active Problems Problem Noted Date Diagnosed Date Atrial fibrillation 08/01/2024 Impaired mobility and ADLs 07/17/2024 S/P CABG x 4 07/08/2024 Coronary artery disease invo lving [place] coronary artery of [place] heart with unstable angina pectoris 07/03/2024 Vitamin [...] as of this encounter (statuses as of 08/20/2024) Resolved Problems Problem Noted Date Diagnosed Date Resolved Date Type 2 diabetes mellitus wit h autonomic neuropathy 08/17/2023 09/17/2023 Atherosclerosis of [place] co ronary artery without angina pectoris 08/17/2023 [...] as of this encounter (statuses as of 08/20/2024) Immunizations Name Administration Dates Next Due COVID-19 [...] Wahl RN - 08/20/2024 11:37 AM EST Manager ManagementLine Up Examiner: Cuca PEDRAZA from [facility] BP- 170/100. Took meds about 10 minutes prior. OT on the way out to see patient later today; will recheck then and update PCP office later today. No falls reported as well. Did not go to cardiology jah in [place] today due to weather. Bejarano catheter was [...] Description 08/21/2024 4:00 PM EST Home Visit [facility] [address] at [facility] 132 [facility] [place] [address] Jhoana Fried RN 132 [facility] [place] [address] 08/25/2024 10:30 AM EST Telemedicine [facility] [address] [place] [address] [place] [address] [facility] [address] [place] [address] [place] [address] 08/25/2024 11:00 AM EST Telemedicine [facility] [address] [place] [address] [place] [address] [facility] [address] [place] [address] [place] [address] 08/27/2024 10:30 AM EST Telemedicine [facility] [address] [place] [address] [place] [address] [facility] [address] [place] [address] [place] [address] 09/01/2024 10:30 AM EST Telemedicine [facility] [address] [place] [address] [place] [address] [facility] [address] [place] [address] [place] [address] 09/01/2024 1:00 PM EST Office Visit Family Practice [address] [place] [address] 293 [place] [address] Leon Galvan, 293 [place] [address] 09/02/2024 11:40 AM EST Office Visit [facility], [facility] [address] [facility] 132 [facility] [place] [address] 09/03/2024 10:30 AM EST [facility] [address] [place] [address] [place] [address] [facility] [address] [place] [address] [place] [address] 09/03/2024 12:30 PM EST Telemedicine [facility] [address] [place] [address] [place] [address] [facility] [address] [place] [address] [place] [address] 09/08/2024 10:30 AM EST Telemedicine [facility] [address] [place] [address] [place] [address] [facility] [address] [place] [address] [place] [address] 09/10/2024 10:30 AM EST Telemed[facility] [address] [place] [address] [place] [address] [facility] [address] [place] [address] [place] [address] 09/10/2024 12:30 PM EST Telemedicine [facility] [address] [place] [address] [place] [address] [facility] [address] [place] [address] [place] [address] 09/15/2024 10:30 AM EDT Telemedicine [facility] [address] [place] [address] [place] [address] [facility] [address] [place] [address] [place] [address] 09/17/2024 8:40 AM EDT Office Visit Family Practice [address] [place] [address] 293 [place] [address] Leon Galvan, 293 [place] [address] 09/17/2024 10:30 AM EDT Telemedicine [facility] [address] [place] [address] [place] [address] [facility] [address] [place] [address] [place] [address] 09/17/2024 11:00 AM EDT Telemedicine [facility] [address] [place] [address] [place] [address] [facility] [address] [place] [address] 09/18/2024 8:00 AM EDT Office Visit Cardiology, [facility] [address] [place] [address] Alexandra Mackenzie CRNP [address] [place] [address] 09/22/2024 10:30 AM EDT Telemedicine [facility] [address] [place] [address] [place] [address] [facility] [address] [place] [address] [place] [address] 09/24/2024 10:30 AM EDT Telemedicine [facility] [address] [place] [address] [place] [address] [facility] [address] [place] [address] [place] [address] 09/24/2024 11:00 AM EDT Telemedicine [facility] [address] [place] [address] [place] [address] [facility] [address] [place] [address] [place] [address] 09/29/2024 9:00 AM EDT Home Visit [facility] [address] at [facility] [address] [place] [address] Pito Rodriguez PA-C [address] [address] 09/29/2024 10:30 AM EDT Telemedicine [facility] [address] [place] [address] [place] [address] [facility] [address] [place] [address] [place] [address] 10/01/2024 10:30 AM EDT Telemedicine [facility] [address] [place] [address] [place] [address] [facility] [address] [place] [address] 10/06/2024 10:30 AM EDT Telemedicine [facility] [address] [place] [address] [place] [address] [facility] [address] [place] [address] 10/08/2024 10:30 AM EDT Telemedicine Card[facility] [address] [place] [address] [place] [address] [facility] [address] [place] [address] 10/10/2024 3:30 PM EDT Imaging Radiology [address] [place] [phone] 10/13/2024 10:30 AM EDT Telemedicine [facility] [address] [place] [address] [place] [address] [facility] [address] [place] [address] [place] [address] 10/15/2024 10:30 AM EDT Telemedicine [facility] [address] [place] [address] [place] [address] [facility] [address] [place] [address] [place] [address] 10/17/2024 9:00 AM EDT Office Visit Urology, [place] [address] [place] [address] Johnathon Kent PA-C [address] [place] [facility] [place] [address] 02/06/2025 9:30 AM EDT Office Visit Cardiology, [facility] 132 [place] [address] Poncho Robledo, [address] [place] [address] Health Maintenance Due Date Last Done Comments Cologuard 1995 Sigmoidoscopy 1995 Fecal Occult Blood Test 12/20/2008 12/21/2007 *ADVANCE DIRECTIVE NOT ON FILE 2019 DISCUSS TOBACCO CESSATION (REFER TO SMARTSET #2891) 06/18/2024 06/18/2023, 01/24/2017 Adult Wellness Visit 02/17/2025 [...] this encounter Medical Devices Implanted Type Area Gettering Filament Machine Operator Device Identifier Shelf Expiration Date Model / Serial / Lot Lead Kit Trial [id number] 50cm - [id number] - [id number] Implanted:Qty: 1 on 05/08/2024 by Maged Monreal DO at OR [facility] Left: Back [employer] : PAIN MGMT 03/18/2026 [id number] 50E0 / [id number] / Lead Kit Trial [id number] 50cm - [id number] - [id number] Implanted:Qty: 1 on 05/08/2024 by Maged Monreal DO at OR [facility] Right: Back [employer] : PAIN MGMT 03/18/2026 [id number] 50E0 / [id number] / Suture Steel 6 B&S19 M654g - [id number] Implanted:Qty: 1 on 07/08/2024 by Jayden Glavan MD at OR [facility] N/A: Sternum JNJ : [employer] 03/08/2029 M654G / / 103BLE Marker Coronary - [id number] Implanted:Qty: 1 on 07/08/2024 by Jayden Galvan MD at OR [facility] N/A: Heart [employer] 05/08/2027 AM-SD / / [id number] Marker Coronary - [id number] Implanted:Qty: 1 on 07/08/2024 by Jayden Galvan MD at OR [facility] N/A: Heart [employer] 06/07/2027 AM-SD / / [id number] documented as of this encounter Advance Directives * Full Code (Latest Code Status on File) Date Activated Date Inactivated Comments 07/08/2024 12:14 PM 07/15/2024 5:39 PM This order reflects the patients wishes and were consensually agreed upon. Question Answer Comments Discussion of Advance Directives occurred with: Patient Care Teams Teacher Dancing Relationship Specialty Start Date End Date Leon Galvan DO [address] [facility] [place] [address] PCP - General Internal Medicine 12/28/23 documented as of this encounter
--- OUTSIDE RECORDS SUMMARY | 2024-08-28 23:23 | External Medical Summary | Summary of Care ---
Author Name Unknown Organization [facility] Address [address] [place] [address] Phone [phone] Care Team Providers Care Bread And Pastry Baker Name Role Phone Leon Galvan DO Primary Care Provider [phone] Reason for Visit * Reason Onset Date Comments Triage Advice 08/20/202408/20 Encounter Details Date Type Department Care Team (Late st Contact Info) Description 08/20/2024 [facility]phone [facility] [address] [place] [address] Leon Galvan DO [address] [place] [address] Triage Advice (08/20) Allergies Active [...] 4 07/08/2024 Coronary artery disease invo lving [place] coronary artery of [place] heart with unstable angina pectoris 07/03/2024 [...] failure, systolic, due to CAD 09/08/[address] (myocardial infarction) 09/08/2013 Dyslipidemia, goal LDL below 70 06/15/2009 Overview (06/15/2009): Per Lipid Taxonomy. Esophageal reflux 12/03/2007 BPH without obstruction/lower urinary tract symp toms 08/03/2006 Tobacco use disorder 06/03/2002 documented as of this encounter (statuses as of 08/20/2024) Resolved Problems Problem Noted Date Diagnosed Date Resolved Date Type 2 diabetes mellitus wit h autonomic neuropathy 08/17/2023 09/17/2023 Atherosclerosis of [place] co ronary artery without angina pectoris [...] Wahl RN - 08/20/2024 11:37 AM EST Drone OperatorSexual Health Physician: Cuca PEDRAZA from [facility] BP- 170/100. Took meds about 10 minutes prior. OT on the way out to see patient later today; will recheck then and update PCP office later today. No falls reported as well. Did not go to cardiology jah in [place] today due to weather. Bejarano catheter was [...] Description 08/21/2024 4:00 PM EST Home Visit [facility] 132 [facility] [place] [address] Jhoana Fried RN 132 [facility] [place] [address] 08/25/2024 10:30 AM EST Telemedicine [facility] [address] [place] [address] [place] [address] [facility] [address] [place] [address] [place] [address] 08/25/2024 11:00 AM EST Telemedicine [facility] [address] [place] [address] [place] [address] [facility] [address] [place] [address] [place] [address] 08/27/2024 10:30 AM EST Telemedicine [facility] [address] [place] [address] [place] [address] [facility] [address] [place] [address] [place] [address] 09/01/2024 10:30 AM EST Telemedicine [facility] [address] [place] [address] [place] [address] [facility] [address] [place] [address] [place] [address] 09/01/2024 1:00 PM EST Office Visit Family Practice [address] [place] [address] 293 [facility] [place] [address] Leon Galvan, 293 [place] [address] 09/02/2024 11:40 AM EST [facility] [address] [facility] 132 [facility] [place] [address] 09/03/2024 10:30 AM EST Telemedicine [facility] [address] [place] [address] [place] [address] [facility] [address] [place] [address] [place] [address] 09/03/2024 12:30 PM EST Telemedicine Card[facility] [address] [place] [address] [place] [address] [facility] [address] [place] [address] [place] [address] 09/08/2024 10:30 AM EST Telemedicine [facility] [address] [place] [address] [place] [address] [facility] [address] [place] [address] [place] [address] 09/10/2024 10:30 AM EST Telemedicine [facility] [address] [place] [address] [place] [address] [facility] [address] [place] [address] [place] [address] 09/10/2024 12:30 PM EST Telemedicine [facility] [address] [place] [address] [place] [address] [facility] [address] [place] [address] [place] [address] 09/15/2024 10:30 AM EDT Telemedicine Card[facility] [address] [place] [address] [place] [address] [facility] [address] [place] [address] [place] [address] 09/17/2024 8:40 AM EDT Office Visit Family Practice [address] [place] [address] 293 [facility] [place] [address] Leon Galvan, 293 [place] [address] 09/17/2024 10:30 AM EDT Telemedicine [facility] [address] [place] [address] [place] [address] [facility] [address] [place] [address] [place] [address] 09/17/2024 11:00 AM EDT Telemedicine [facility] [address] [place] [address] [place] [address] [facility] [address] [place] [address] 09/18/2024 8:00 AM EDT Office Visit Cardiology, [facility] [address] [place] [address] Alexandra Mackenzie CRNP [address] [place] [address] 09/22/2024 10:30 AM EDT Telemedicine [facility] [address] [place] [address] [place] [address] [facility] [address] [place] [address] [place] [address] 09/24/2024 10:30 AM EDT Telemedicine [facility] [address] [place] [address] [place] [address] [facility] [address] [place] [address] [place] [address] 09/24/2024 11:00 AM EDT Telemedicine [facility] [address] [place] [address] [place] [address] [facility], [facility] [address] [place] [address] [place] [address] 09/29/2024 9:00 AM EDT Home Visit [facility] [address] [place] [address] Pito Rodriguez PA-C [address] [address] 09/29/2024 10:30 AM EDT Telemedicine [facility] [address] [place] [address] [place] [address] [facility] [address] [place] [address] [place] [address] 10/01/2024 10:30 AM EDT Telemedicine [facility] [address] [place] [address] [place] [address] [facility] [address] [place] [address] 10/06/2024 10:30 AM EDT Telemedicine [facility] [address] [place] [address] [place] [address] [facility], [facility] [address] [place] [address] 10/08/2024 10:30 AM EDT Telemedicine [facility] [address] [place] [address] [place] [address] [facility], [facility] [address] [place] [address] 10/10/2024 3:30 PM EDT Imaging Radiology [address] [place] [phone] 10/13/2024 10:30 AM EDT Telemedicine [facility] [address] [place] [address] [place] [address] Advanced, [facility] [address] [place] [address] [place] [address] 10/15/2024 10:30 AM EDT Telemedicine Card[facility], [facility] [address] [place] [address] [place] [address] Advanced, [facility] [address] [place] [address] [place] [address] 10/17/2024 9:00 AM EDT Office Visit Urology, [place] [address] [place] [address] Johnathon Kent PA-C [address] [facility] [place] [address] 02/06/2025 9:30 AM EDT Office Visit Cardiology, [facility] [address] [place] [address] Poncho Robledo, [address] [place] [address] Health Maintenance Due Date Last Done Comments Cologuard 1995 Sigmoidoscopy 1995 Fecal Occult Blood Test 12/20/2008 12/21/2007 *ADVANCE DIRECTIVE NOT ON FILE 2019 DISCUSS TOBACCO CESSATION (REFER TO SMARTSET #7080) 06/18/2024 06/18/2023, 01/24/2017 Adult Wellness Visit 02/17/2025 [...] this encounter Medical Devices Implanted Type Area Dispensary Clerk Device Identifier Shelf Expiration Date Model / Serial / Lot Lead Kit Trial [id number] 50cm - [id number] - [id number] Implanted:Qty: 1 on 05/08/2024 by Maged Monreal DO at OR [facility] Left: Back [employer] : PAIN MGMT 03/18/2026 [id number] 50E0 / [id number] / Lead Kit Trial [id number] 50cm - [id number] - [id number] Implanted:Qty: 1 on 05/08/2024 by Maged Monreal DO at OR [facility] Right: Back [employer] : PAIN MGMT 03/18/2026 [id number] 50E0 / [id number] / Suture Steel 6 B&S19 M654g - [id number] Implanted:Qty: 1 on 07/08/2024 by Jayden Galvan MD [place] [facility] [place]/A: Sternum JNJ : [employer] 03/08/2029 M654G / / 103BLE Marker Coronary - [id number] Implanted:Qty: 1 on 07/08/2024 by Jayden Galvan MD [place] [facility] [place]/A: Heart [employer] 05/08/2027 AM-SD / / [id number] Marker Coronary - [id number] Implanted:Qty: 1 on 07/08/2024 by Jayden Galvan MD [place] [facility] N/A: Heart [employer] 06/07/2027 AM-SD / / [id number] documented as of this encounter Advance Directives * Full Code (Latest Code Status on File) Date Activated Date Inactivated Comments 07/08/2024 12:14 PM 07/15/2024 5:39 PM This order reflects the patients wishes and were consensually agreed upon. Question Answer Comments Discussion of Advance Directives occurred with: Patient Care Teams Bread And Pastry Baker Relationship Specialty Start Date End Date Leon Galvan DO 293 [facility] [place] [address] PCP - General Internal Medicine 12/28/23 documented as of this encounter
--- OUTSIDE RECORDS SUMMARY | 2024-08-28 23:23 | External Medical Summary | Summary of Care ---
Author Name Unknown Organization [facility] Address [address] [place] [address] Phone [phone] Care Team Providers Care River Driver Name Role Phone Leon Galvan DO Primary Care Provider [phone] Reason for Visit * Reason Onset Date Comments [facility]: Maintenance 08/15/2024 Encounter Details Date Type Department Care Team (Late st Contact Info) Description 08/15/2024 Telephone Family Practice [address] [facility] [place] [address] [place] [address] Leon Galvan DO [address] [place] [address] [facility]: Maintenance Allergies Active Allergy Reactions Criticality Noted Date Comments Codeine Other (Please comment) High 09/08/2013 Severe Skin peeling documented as of this encounter (statuses as of 08/18/2024) Medications oxygen GASIndications:C hronic coronary artery disease,COPD, [...] as of this encounter (statuses as of 08/18/2024) Active Problems Problem Noted Date Diagnosed Date Atrial fibrillation 08/01/2024 Impaired mobility and ADLs 07/17/2024 S/P CABG x 4 07/08/2024 Coronary artery disease invo lving [place] coronary artery of [place] heart with unstable angina pectoris 07/03/2024 Vitamin [...] failure, systolic, due to CAD 09/08/2013 Old ID (myocardial infarction) 09/08/2013 Dyslipidemia, goal LDL below 70 06/15/2009 Overview (06/15/2009): Per Lipid Taxonomy. Esophageal reflux 12/03/2007 BPH without obstruction/lower urinary tract symp toms 08/03/2006 Tobacco use disorder 06/03/2002 documented as of this encounter (statuses as of 08/18/2024) Resolved Problems Problem Noted Date Diagnosed Date Resolved Date Type 2 diabetes mellitus wit h autonomic neuropathy 08/17/2023 09/17/2023 Atherosclerosis of [place] co ronary artery without angina pectoris 08/17/2023 [...] as of this encounter (statuses as of 08/18/2024) Immunizations Name Administration Dates Next Due COVID-19 [...] encounter Miscellaneous Notes * Telephone Encounter - Nelida Wahl RN - 08/18/2024 10:16 AM EST Thank you, Jhoana! HH also was not able to get a hold of him to take out his rowell and start a voiding trial. We had sent fax orders last week. * Telephone Encounter - Jhoana Fried RN - 08/18/2024 10:00 AM EST Spoke with pt. He states he was not home on Sunday when PT called him, he was out getting his taxesdone. He is agreeable to have home PT Let him know that they plan on coming today or Sunday and they are planning on calling before coming. He states he will be home all day today and will be on alert for a phone call. * Telephone Encounter - Nelida Wahl RN - 08/15/2024 12:02 PM EST Fyi Are you able to call Audrey or Jhoana and update this TE? TY * Telephone Encounter - Leon Galvan DO - 08/15/2024 11:25 AM EST Call patient and see why he won't let PT in his house * Telephone Encounter - Risa Garcia RT (R) - 08/15/2024 10:30 AM EST Jossie PT w/ Home Health called stating she stopped at patient's home to do PT and patient wasn't home. Second time she stopped at patients home do to therapy and patient was not still not home. Maverick stop by Sunday or Sunday next week and will call when she is in route to see if he is at home. If patient is not home she will continue on to see the next patient. If any additional information is needed, please call Jossie. Thank you. documented in this encounter Plan of Treatment Upcoming Encounters Date Type Department Care Team (Late st Contact Info) Description 08/20/2024 10:30 AM EST Telemedicine Card[facility] [address] [place] [address] [place] [address] [facility], [facility] Card[facility] Re[facility] [address] [place] [address] [place] [address] 08/20/2024 10:45 AM EST Office Visit Cardiothoracic Surg [facility] [address] [place] [address] Jayden Galvan MD [address] [place] [address] 08/21/2024 4:00 PM EST [facility] [place] [address] Jhoana Fried, RN [address] [place] [address] 08/25/2024 10:30 AM EST Telemedicine [facility] [address] [place] [address] [place] [address] [facility], [facility] [address] [place] [address] [place] [address] 08/25/2024 11:00 AM EST Telemedicine Card[facility], [facility] [address] [place] [address] [place] [address] Advanced, [facility] [address] [place] [address] [place] [address] 08/27/2024 10:30 AM EST Telemedicine Card[facility] Re[facility], Virtual [address] [place] [address] [place] [address] Advanced, [facility] [address] [place] [address] [place] [address] 09/01/2024 10:30 AM EST Telemedicine Card[facility], [facility] [address] [place] [address] [place] [address] Advanced, [facility] [address] [place] [address] [place] [address] 09/01/2024 1:00 PM EST Office Visit Family Practice [address] [place] [address] 293 [place] [address] Leon Galvan DO 293 [place] [address] 09/02/2024 11:40 AM EST Office Visit Pharmacy, [facility] [address] [facility] [address] [facility] 132 [facility] [place] [address] 09/03/2024 10:30 AM EST Telemedicine Card[facility] [address] [place] [address] [place] [address] Advanced, [facility] [address] [place] [address] [place] [address] 09/03/2024 12:30 PM EST Telemedicine Card[facility], [facility] [address] [place] [address] [place] [address] Advanced, [facility] [address] [place] [address] [place] [address] 09/08/2024 10:30 AM EST Telemedicine Cardiac Rehab [facility], Virtual [address] [facility] [place] [address] Advanced, Virtual Cardiac Re[facility] [address] [place] [address] 09/10/2024 10:30 AM EST Telemedicine Cardiac Re[facility], Virtual [address] [place] [address] [place] [address] Advanced, [facility] [address] [place] [address] 09/10/2024 12:30 PM EST Telemedicine Cardiac Re[facility], Virtual [address] [place] [address] [place] [address] Advanced, [facility] [address] [place] [address] 09/15/2024 10:30 AM EDT Telemedicine Cardiac Rehab [facility], Virtual [address] [place] [address] [place] [address] Advanced, [facility] [address] [place] [address] 09/17/2024 8:40 AM EDT Office Visit Family Practice [address] [place] [address] 293 [place] [address] Leon Galvan, DO [address] [place] [address] 09/17/2024 10:30 AM EDT Telemedicine Cardiac Re[facility], [facility] [address] [place] [address] [place] [address] Advanced, [facility] [address] [place] [address] 09/17/2024 11:00 AM EDT Telemedicine Cardiac Rehab [facility], [facility] [address] [place] [address] [place] [address] Advanced, [facility] [address] [place] [address] [place] [address] 09/18/2024 8:00 AM EDT Office Visit Cardiology, [facility] [address] [place] [address] Aelxandra Mackenzie CRNP [address] [place] [address] 09/22/2024 10:30 AM EDT Telemedicine Cardiac Rehab [facility], [facility] [address] [place] [address] [place] [address] Advanced, [facility] [address] [place] [address] [place] [address] 09/24/2024 10:30 AM EDT Telemedicine Cardiac Rehab [facility], [facility] [address] [place] [address] [place] [address] Advanced, Virtual Card[facility] [address] [place] [address] [place] [address] 09/24/2024 11:00 AM EDT Telemedicine Cardiac Rehab [facility], Virtual [address] [place] [address] [place] [address] Advanced, Virtual Card[facility] [address] [place] [address] [place] [address] 09/29/2024 9:00 AM EDT Home Visit [facility] [place] [address] Pito Rodriguez PA-C [address] [place] [address] 09/29/2024 10:30 AM EDT Telemedicine Cardiac Rehab [facility], [facility] [address] [place] [address] [place] [address] Advanced, Virtual Card[facility] [address] [place] [address] [place] [address] 10/01/2024 10:30 AM EDT Telemedicine Cardiac Rehab [facility], Virtual [address] [facility] [place] [address] Advanced, [facility] Card[facility] [address] [place] [address] 10/06/2024 10:30 AM EDT Telemedicine Cardiac Rehab [facility], [facility] [address] [facility] [place] [address] Advanced, Virtual Cardiac Re[facility] [address] [place] [address] [place] [address] 10/10/2024 3:30 PM EDT Imaging Radiology [facility] [address] [id number] 10/17/2024 9:00 AM EDT Office Visit Urology, [place] [address] [place] [address] Johnathon Kent PA-C [address] [place] [address] 02/06/2025 9:30 AM EDT Office Visit Cardiology, [facility] [address] [place] [address] Poncho Robledo DO [address] [place] [address] Health Maintenance Due Date Last Done Comments [...] this encounter Medical Devices Implanted Type Area Roof Foreman Device Identifier Shelf Expiration Date Model / Serial / Lot Lead Kit Trial [id number] 50cm - [id number] - [id number] Implanted:Qty: 1 on 05/08/2024 by Maged Monreal, DO at OR [facility] Left: Back Yn[employer] : PAIN MGMT 03/18/2026 [id number] 50E0 / [id number] / Lead Kit Trial [id number] 50cm - [id number] - [id number] Implanted:Qty: 1 on 05/08/2024 by Maged Monreal DO at OR [facility] Right: Back [employer] : PAIN MGMT 03/18/2026 [id number] 50E0 / [id number] / Suture Steel 6 B&S19 M654g - [id number] Implanted:Qty: 1 on 07/08/2024 by Jayden Galvan [place] [facility] [place]: Sternum JNJ : [employer] 03/08/2029 M654G / / 103BLE Marker Coronary - [id number] Implanted:Qty: 1 on 07/08/2024 by Jayden Galvan [place] [facility] [place]A: Heart [employer] 05/08/2027 AM-SD / / [id number] Marker Coronary - [id number] Implanted:Qty: 1 on 07/08/2024 by Jayden Galvan [place] [facility] [facility] [place]A: Heart [employer] 06/07/2027 AM-SD / / [id number] documented as of this encounter Advance Directives * Full Code (Latest Code Status on File) Date Activated Date Inactivated Comments 07/08/2024 12:14 PM 07/15/2024 5:39 PM This order reflects the patients wishes and were consensually agreed upon. Question Answer Comments Discussion of Advance Directives occurred with: Patient Care Teams River Driver Relationship Specialty Start Date End Date Leon Galvan DO [address] [facility] [place] [address] PCP - General Internal Medicine 12/28/23 documented as of this encounter
--- OUTSIDE RECORDS SUMMARY | 2024-08-28 23:23 | External Medical Summary | Summary of Care ---
Author Name Unknown Organization [facility] Address [address] [place] [address] Phone [phone] Care Team Providers Care Casino Runner Name Role Phone Leon Galvan DO Primary Care Provider Reason for Visit * Reason Onset Date Comments Triage Advice 08/20/202408/20 Encounter Details Date Type Department Care Team (Late st Contact Info) Description 08/20/2024 Telephone Family [facility] [address] [place] [address] Leon Galvan DO [address] [place] [address] Triage Advice (08/20) Allergies Active [...] 4 07/08/2024 Coronary artery disease invo lving [place] coronary artery of [place] heart with unstable angina pectoris 07/03/2024 Vitamin [...] failure, systolic, due to CAD 09/08/2013 Old [place] (myocardial infarction) 09/08/2013 Dyslipidemia, goal LDL below 70 06/15/2009 Overview (06/15/2009): Per Lipid Taxonomy. Esophageal reflux 12/03/2007 BPH without obstruction/lower urinary tract symp toms 08/03/2006 Tobacco use disorder 06/03/2002 documented as of this encounter (statuses as of 08/20/2024) Resolved Problems Problem Noted Date Diagnosed Date Resolved Date Type 2 diabetes mellitus wit h autonomic neuropathy 08/17/2023 09/17/2023 Atherosclerosis of [place] co ronary artery without angina pectoris 08/17/2023 [...] well; no complaints * Telephone Encounter - Neldia Wahl RN - 08/20/2024 12:41 PM EST HH OT to retake BP later today and call PCP office with result. Per HH RN, meds are being taken as prescribed. * Telephone Encounter - Leon Galvan DO - 08/20/2024 12:15 PM EST Take medications as directed. Repeat BP today * Telephone Encounter - Nelida Wahl RN - 08/20/2024 11:37 AM EST Developer DesignerEntertainment Lawyer: Cuca PEDRAZA from [facility] BP- 170/100. Took meds about 10 minutes prior. OT on the way out to see patient later today; will recheck then and update PCP office later today. No falls reported as well. Did not go to cardiology jah in [place] today due to weather. Bejarano catheter was [...] Description 08/21/2024 4:00 PM EST Home Visit [facility] [address] [facility] [place] [address] Jhoana Fried RN 132 [facility] [place] [address] 08/25/2024 10:30 AM EST [facility] [address] [place] [address] [place] [address] [facility] [address] [place] [address] [place] [address] 08/25/2024 11:00 AM EST [facility] [address] [place] [address] [place] [address] [facility] [address] [place] [address] [place] [address] 08/27/2024 10:30 AM EST [facility] [address] [place] [address] [place] [address] [facility] [address] [place] [address] [place] [address] 09/01/2024 10:30 AM EST [facility] [address] [place] [address] [place] [address] [facility] [address] [place] [address] [place] [address] 09/01/2024 1:00 PM EST Office Visit Family Practice [address] [place] [address] 293 [place] [address] Leon Galvan, 293 [place] [address] 09/02/2024 11:40 AM EST Office Visit Pharm[facility], [facility] [address] [facility] 132 [facility] [place] [address] 09/03/2024 10:30 AM EST [facility] [address] [place] [address] [place] [address] [facility] [address] [place] [address] [place] [address] 09/03/2024 12:30 PM EST Tele[facility] [address] [place] [address] [place] [address] [facility] [address] [place] [address] [place] [address] 09/08/2024 10:30 AM EST [facility] [address] [place] [address] [place] [address] [facility] [address] [place] [address] [place] [address] 09/10/2024 10:30 AM EST Tele[facility]icine [facility] [address] [place] [address] [place] [address] [facility] [address] [place] [address] [place] [address] 09/10/2024 12:30 PM EST Tele[facility] [address] [place] [address] [place] [address] [facility] [address] [place] [address] [place] [address] 09/15/2024 10:30 AM EDT Telemedicine [facility] [address] [place] [address] [place] [address] [facility] [address] [place] [address] [place] [address] 09/17/2024 8:40 AM EDT Office Visit Family Practice [address] [place] [address] 293 [place] [address] Leon Galvan, 293 [place] [address] 09/17/2024 10:30 AM EDT Tele[facility] [address] [place] [address] [place] [address] [facility] [address] [place] [address] [place] [address] 09/17/2024 11:00 AM EDT Telemedicine [facility] [address] [place] [address] [place] [address] [facility] [address] [place] [address] 09/18/2024 8:00 AM EDT Office Visit Cardiology, [facility] [address] [place] [address] Alexandra Mackenzie CRNP [address] [place] [address] 09/22/2024 10:30 AM EDT [facility] [address] [place] [address] [place] [address] [facility] [address] [place] [address] [place] [address] 09/24/2024 10:30 AM EDT Telemedicine [facility] [address] [place] [address] [place] [address] [facility] [address] [place] [address] [place] [address] 09/24/2024 11:00 AM EDT Telemedicine [facility] [address] [place] [address] [place] [address] [facility] [address] [place] [address] [place] [address] 09/29/2024 9:00 AM EDT Home Visit [facility] [address] [place] [address] Pito Rodriguez PA-C [address] [address] 09/29/2024 10:30 AM EDT Tele[facility]icine [facility] [address] [place] [address] [place] [address] [facility] [address] [place] [address] [place] [address] 10/01/2024 10:30 AM EDT Telemedicine [facility] [address] [place] [address] [place] [address] [facility] [address] [place] [address] 10/06/2024 10:30 AM EDT Telemedicine [facility] [address] [place] [address] [place] [address] [facility] [address] [place] [address] 10/08/2024 10:30 AM EDT Telemedicine [facility] [address] [place] [address] [place] [address] [facility] [address] [place] [address] 10/10/2024 3:30 PM EDT Imaging Radiology [address] [place] [address] 10/13/2024 10:30 AM EDT Telemedicine [facility] [address] [place] [address] [place] [address] [facility] [address] [place] [address] [place] [address] 10/15/2024 10:30 AM EDT Telemedicine [facility] [address] [place] [address] [place] [address] [facility] [address] [place] [address] [place] [address] 10/17/2024 9:00 AM EDT Office Visit Urology, [place] [address] [place] [address] Johnathon Kent PA-C [address] [place] [facility] [place] [address] 02/06/2025 9:30 AM EDT Office Visit Cardiology, [facility] 132 [facility] [place] [address] Poncho Robledo, [address] [place] [address] Health Maintenance Due Date Last Done Comments Cologuard 1995 Sigmoidoscopy 1995 Fecal Occult Blood Test 12/20/2008 12/21/2007 *ADVANCE DIRECTIVE NOT ON FILE 2019 DISCUSS TOBACCO CESSATION (REFER TO SMARTSET #7177) 06/18/2024 06/18/2023, 01/24/2017 Adult Wellness Visit 02/17/2025 [...] this encounter Medical Devices Implanted Type Area Carton Filler Device Identifier Shelf Expiration Date Model / Serial / Lot Lead Kit Trial [id number] 50cm - [id number] - [id number] Implanted:Qty: 1 on 05/08/2024 by Maged Monreal DO at OR [facility] Left: Back [employer] : PAIN MGMT 03/18/2026 [id number] 50E0 / [id number] / Lead Kit Trial [id number] 50cm - [id number] - [id number] Implanted:Qty: 1 on 05/08/2024 by Maged Monreal DO at OR [facility] Right: Back [employer] : PAIN MGMT 03/18/2026 [id number] 50E0 / [id number] / Suture Steel 6 B&S19 M654g - [id number] Implanted:Qty: 1 on 07/08/2024 by Jayden Galvan MD at OR [facility] N/A: Sternum JNJ : [employer] 03/08/2029 M654G / / 103BLE Marker Coronary - [id number] Implanted:Qty: 1 on 07/08/2024 by Jayden Galvan MD at OR [facility] N/A: Heart [employer] 05/08/2027 AM-SD / / [id number] Marker Coronary - [id number] Implanted:Qty: 1 on 07/08/2024 by Jayden Galvan MD at OR [facility] N/A: Heart [employer] 06/07/2027 AM-SD / / [id number] documented as of this encounter Advance Directives * Full Code (Latest Code Status on File) Date Activated Date Inactivated Comments 07/08/2024 12:14 PM 07/15/2024 5:39 PM This order reflects the patients wishes and were consensually agreed upon. Question Answer Comments Discussion of Advance Directives occurred with: Patient Care Teams Casino Runner Relationship Specialty Start Date End Date Leon Galvan DO [address] [facility] [place] [address] PCP - General Internal Medicine 12/28/23 documented as of this encounter
--- OUTSIDE RECORDS SUMMARY | 2024-08-28 23:23 | External Medical Summary | Summary of Care ---
Author Name Unknown Organization [facility] Address [address] [place] [address] Phone [phone] Care Team Providers Care Collect On Delivery Clerk Name Role Phone Leon Galvan DO Primary Care Provider Reason for Visit * Reason Onset Date Comments Other 08/20/2024 Encounter Details Date Type Department Care Team (Late st Contact Info) Description 08/20/2024 Telephone Family Practice 65 [facility] [address] [place] [address] Leon Galvan DO [address] [place] [address] Other Allergies Active Allergy Reactions Criticality Noted Date [...] 4 07/08/2024 Coronary artery disease invo lving [place] coronary artery of [place] heart with unstable angina pectoris 07/03/2024 Vitamin [...] failure, systolic, due to CAD 09/08/2013 Old [place] (myocardial infarction) 09/08/2013 Dyslipidemia, goal LDL below 70 06/15/2009 Overview (06/15/2009): Per Lipid Taxonomy. Esophageal reflux 12/03/2007 BPH without obstruction/lower urinary tract symp toms 08/03/2006 Tobacco use disorder 06/03/2002 documented as of this encounter (statuses as of 08/20/2024) Resolved Problems Problem Noted Date Diagnosed Date Resolved Date Type 2 diabetes mellitus wit h autonomic neuropathy 08/17/2023 09/17/2023 Atherosclerosis of [place] co ronary artery without angina pectoris 08/17/2023 [...] encounter Miscellaneous Notes * Telephone Encounter - Keyonna Triana LPN - 08/20/2024 1:32 PM EST See other TE. * Telephone Encounter - Татьяна Miranda OSA - 08/20/2024 12:34 PM EST [facility] O T,called with update on pt. Please return call to [phone] documented in this encounter Plan of Treatment Upcoming Encounters Date Type Department Care Team (Late st Contact Info) Description 08/21/2024 4:00 PM EST Home Visit [facility] 132 [facility] [place] [address] Jhoana Fried, RN [address] [place] [address] 08/25/2024 10:30 AM EST Telemedicine [facility] [address] [place] [address] [place] [address] [facility] [address] [place] [address] [place] [address] 08/25/2024 11:00 AM EST Telemedicine [facility] [address] [place] [address] [place] [address] [facility] [address] [place] [address] [place] [address] 08/27/2024 10:30 AM EST Telemedicine [facility] [address] [place] [address] [place] [address] [facility] [address] [place] [address] [place] [address] 09/01/2024 10:30 AM EST Telemedicine [facility] [address] [place] [address] [place] [address] [facility] [address] [place] [address] [place] [address] 09/01/2024 1:00 PM EST Office Visit Family Practice [address] [place] [address] 293 [facility] [place] [address] Leon Galvan, 293 [place] [address] 09/02/2024 11:40 AM EST Office Visit Pharmacy, [facility] [address] [facility] 132 [facility] [place] [address] 09/03/2024 10:30 AM EST [facility] [address] [place] [address] [place] [address] [facility] [address] [place] [address] [place] [address] 09/03/2024 12:30 PM EST Telemedicine [facility] [address] [place] [address] [place] [address] [facility] [address] [place] [address] [place] [address] 09/08/2024 10:30 AM EST Telemedicine [facility] [address] [place] [address] [place] [address] [facility] [address] [place] [address] [place] [address] 09/10/2024 10:30 AM EST Tele[facility] [address] [place] [address] [place] [address] [facility] [address] [place] [address] [place] [address] 09/10/2024 12:30 PM EST Telemedicine [facility] [address] [place] [address] [place] [address] [facility] [address] [place] [address] [place] [address] 09/15/2024 10:30 AM EDT Telemedicine [facility] [address] [place] [address] [place] [address] [facility] [address] [place] [address] [place] [address] 09/17/2024 8:40 AM EDT Office Visit [address] 293 [facility] [place] [address] Leon Galvan, 293 [place] [address] 09/17/2024 10:30 AM EDT Telemedicine [facility] [address] [place] [address] [place] [address] [facility] [address] [place] [address] [place] [address] 09/17/2024 11:00 AM EDT Telemedicine [facility] [address] [place] [address] [place] [address] [facility] [address] [place] [address] [place] [address] 09/18/2024 8:00 AM EDT Office Visit Cardiology, [facility] 132 [facility] [place] [address] Alexandra Mackenzie CRNP 132 [facility] [place] [address] 09/22/2024 10:30 AM EDT Telemedicine [facility] [address] [place] [address] [place] [address] [facility], [facility] [address] [place] [address] [place] [address] 09/24/2024 10:30 AM EDT Telemedicine [facility] [address] [place] [address] [place] [address] [facility] [address] [place] [address] [place] [address] 09/24/2024 11:00 AM EDT Telemedicine [facility] [address] [place] [address] [place] [address] [facility], [facility] [address] [place] [address] [place] [address] 09/29/2024 9:00 AM EDT Home Visit [facility] [address] [place] [address] [facility] [address] [place] [address] 09/29/2024 10:30 AM EDT Telemedicine [facility] [address] [place] [address] [place] [address] [facility], [facility] [address] [place] [address] [place] [address] 10/01/2024 10:30 AM EDT Telemedicine Card[facility] [address] [place] [address] [place] [address] Advanced, [facility] [address] [place] [address] [place] [address] 10/06/2024 10:30 AM EDT Telemedicine [facility] [address] [place] [address] [place] [address] Advanced, [facility] [address] [place] [address] [place] [address] 10/08/2024 10:30 AM EDT Telemedicine [facility] [address] [place] [address] [place] [address] Advanced, [facility] [address] [place] [address] [place] [address] 10/10/2024 3:30 PM EDT Imaging Radiology [facility] [address] [place] [address] 10/13/2024 10:30 AM EDT Telemedicine [facility] [address] [place] [address] [place] [address] Advanced, [facility] [address] [place] [address] [place] [address] 10/15/2024 10:30 AM EDT Telemedicine Card[facility] [address] [place] [address] [place] [address] Advanced, [facility] [address] [place] [address] [place] [address] 10/17/2024 9:00 AM EDT Office Visit Urology, [place] [address] [place] [address] Johnathon Kent PA-C [address] [place] [address] 02/06/2025 9:30 AM EDT Office Visit Cardiology, [facility] [address] [place] [address] Poncho Robledo DO [address] [place] [address] Health Maintenance Due Date Last Done Comments Cologuard 1995 Sigmoidoscopy 1995 Fecal Occult Blood Test 12/20/2008 12/21/2007 *ADVANCE DIRECTIVE NOT ON FILE 2019 DISCUSS TOBACCO CESSATION (REFER TO SMARTSET #7119) 06/18/2024 06/18/2023, 01/24/2017 Adult Wellness Visit 02/17/2025 [...] this encounter Medical Devices Implanted Type Area Painting Machine Operator Device Identifier Shelf Expiration Date Model / Serial / Lot Lead Kit Trial [id number] 50cm - [id number] - [id number] Implanted:Qty: 1 on 05/08/2024 by Maged Monreal DO at OR [facility] Left: Back [employer] : PAIN MGMT 03/18/2026 [id number] 50E0 / [id number] / Lead Kit Trial [id number] 50cm - [id number] - [id number] Implanted:Qty: 1 on 05/08/2024 by Maged Monreal DO at OR [facility] Right: Back [employer] : PAIN MGMT 03/18/2026 [id number] 50E0 / [id number] / Suture Steel 6 B&S19 M654g - [id number] Implanted:Qty: 1 on 07/08/2024 by Jayden Galvan MD at [place] [facility] N/A: Sternum JNJ : [employer] 03/08/2029 M654G / / 103BLE Marker Coronary - [id number] Implanted:Qty: 1 on 07/08/2024 by Jayden Galvan MD at OR [facility] N/A: Heart [employer] 05/08/2027 AM-SD / / [id number] Marker Coronary - [id number] Implanted:Qty: 1 on 07/08/2024 by Jayden Galvan MD at OR [facility] N/A: Heart [employer] 06/07/2027 AM-SD / / [id number] documented as of this encounter Advance Directives * Full Code (Latest Code Status on File) Date Activated Date Inactivated Comments 07/08/2024 12:14 PM 07/15/2024 5:39 PM This order reflects the patients wishes and were consensually agreed upon. Question Answer Comments Discussion of Advance Directives occurred with: Patient Care Teams Collect On Delivery Clerk Relationship Specialty Start Date End Date Leon Galvan DO [address] [place], [place] [address] [address] PCP - General Internal Medicine 12/28/23 documented as of this encounter
--- OUTSIDE RECORDS SUMMARY | 2024-08-28 23:23 | External Medical Summary | Summary of Care ---
Author Name Unknown Organization [facility] Address [address] [place] [address] Phone [phone] Care Team Providers Care Casino Dealer Name Role Phone Leon Galvan DO Primary Care Provider [phone] Reason for Visit * Reason Onset Date Comments Other 08/20/2024 Encounter Details Date Type Department Care Team (Late st Contact Info) Description 08/20/2024 Telephone Family Practice [address] [facility] [place] [address] [place] [address] Leon Galvan DO [address] [place] [address] Other Allergies Active Allergy Reactions [...] 4 07/08/2024 Coronary artery disease invo lving deering coronary artery of deering heart with unstable angina pectoris 07/03/2024 Vitamin [...] h autonomic neuropathy 08/17/2023 09/17/2023 Atherosclerosis of deering co ronary artery without angina pectoris 08/17/2023 [...] Miranda OSA - 08/20/2024 12:34 PM EST [facility] O T,called with update on pt. Please return call to [phone] documented in this encounter Plan of Treatment Upcoming Encounters Date Type Department Care Team (Late st Contact Info) Description 08/21/2024 4:00 PM EST Home Visit [facility] [address] [facility] [place] [address] Jhoana Fried, RN [address] [place] [address] 08/25/2024 10:30 AM EST [facility] [address] [place] [address] [place] [address] [facility] [address] [place] [address] [place] [address] 08/25/2024 11:00 AM EST [facility] [address] [place] [address] [place] [address] [facility] [address] [place] [address] [place] [address] 08/27/2024 10:30 AM EST [facility], [facility] [address] [place] [address] [place] [address] [facility] [address] [place] [address] [place] [address] 09/01/2024 10:30 AM EST [facility] [address] [place] [address] [place] [address] [facility] [address] [place] [address] [place] [address] 09/01/2024 1:00 PM EST Office Visit Family Practice [address] [place] [address] 293 [place] [address] Leon Galvan, 293 [place] [address] 09/02/2024 11:40 AM EST Office Visit Pharmacy, [facility] [address] [facility] 132 [facility] [place] [address] 09/03/2024 10:30 AM EST [facility] [address] [place] [address] [place] [address] [facility] [address] [place] [address] [place] [address] 09/03/2024 12:30 PM EST [facility] [address] [place] [address] [place] [address] [facility] [address] [place] [address] [place] [address] 09/08/2024 10:30 AM EST [facility] [address] [place] [address] [place] [address] [facility] [address] [place] [address] [place] [address] 09/10/2024 10:30 AM EST [facility], Virtual [address] [place] [address] [place] [address] [facility] [address] [place] [address] [place] [address] 09/10/2024 12:30 PM EST [facility] [address] [place] [address] [place] [address] [facility] [address] [place] [address] [place] [address] 09/15/2024 10:30 AM EDT Telemedicine [facility], [facility] [address] [place] [address] [place] [address] [facility] [address] [place] [address] [place] [address] 09/17/2024 8:40 AM EDT Office Visit [address] 293 [place] [address] Leon Galvan, 293 [place] [address] 09/17/2024 10:30 AM EDT [facility] [address] [place] [address] [place] [address] [facility] [address] [place] [address] [place] [address] 09/17/2024 11:00 AM EDT Tele[facility] [address] [place] [address] [place] [address] [facility] [address] [place] [address] [place] [address] 09/18/2024 8:00 AM EDT Office Visit Cardiology, [facility] [address] [facility] [place] [address] Alexandra Mackenzie CRNP [address] [facility] [place] [address] 09/22/2024 10:30 AM EDT [facility] [address] [place] [address] [place] [address] [facility] [address] [place] [address] [place] [address] 09/24/2024 10:30 AM EDT Tele[facility] [address] [place] [address] [place] [address] [facility] [address] [place] [address] [place] [address] 09/24/2024 11:00 AM EDT Tele[facility], [facility] [address] [place] [address] [place] [address] [facility] [address] [place] [address] [place] [address] 09/29/2024 9:00 AM EDT Home Visit [facility] [address] [place] [address] [facility] [address] [place] [address] 09/29/2024 10:30 AM EDT [facility] [address] [place] [address] [place] [address] [facility] [address] [place] [address] [place] [address] 10/01/2024 10:30 AM EDT Tele[facility], [facility] [address] [place] [address] [place] [address] [facility] [address] [place] [address] [place] [address] 10/06/2024 10:30 AM EDT Tele[facility], [facility] [address] [place] [address] [place] [address] [facility] [address] [place] [address] [place] [address] 10/08/2024 10:30 AM EDT Telemedicine [facility], [facility] [address] [place] [address] [place] [address] [facility] [address] [place] [address] [place] [address] 10/10/2024 3:30 PM EDT Imaging Radiology [facility] [address] [place] [address] 10/13/2024 10:30 AM EDT Tele[facility], [facility] [address] [place] [address] [place] [address] [facility] [address] [place] [address] [place] [address] 10/15/2024 10:30 AM EDT Telemedicine [facility], Virtual [address] [place] [address] [place] [address] [facility] [address] [place] [address] [place] [address] 10/17/2024 9:00 AM EDT Office Visit Urology, [place] [address] [place] [address] Johnathon Kent PA-C [address] [place] [address] 02/06/2025 9:30 AM EDT Office Visit Cardiology, [facility] [address] [place] [address] Poncho Robledo DO [address] [place] [address] Health Maintenance Due Date Last Done Comments Cologuard 1995 Sigmoidoscopy 1995 Fecal Occult Blood Test 12/20/2008 12/21/2007 *ADVANCE DIRECTIVE NOT ON FILE 2019 DISCUSS TOBACCO CESSATION (REFER TO SMARTSET #0049) 06/18/2024 06/18/2023, 01/24/2017 Adult Wellness Visit 02/17/2025 [...] this encounter Medical Devices Implanted Type Area Registered Clinical Dietitian Device Identifier Shelf Expiration Date Model / Serial / Lot Lead Kit Trial [id number] 50cm - [id number] - [id number] Implanted:Qty: 1 on 05/08/2024 by Maged Monreal DO at OR [facility] Left: Back [employer] : PAIN MGMT 03/18/2026 [id number] 50E0 / [id number] / Lead Kit Trial [id number] 50cm - [id number] - [id number] Implanted:Qty: 1 on 05/08/2024 by Maged Monreal DO at OR [facility] Right: Back [employer] : PAIN MGMT 03/18/2026 [id number] 50E0 / [id number] / Suture Steel 6 B&S19 M654g - [id number] Implanted:Qty: 1 on 07/08/2024 by Jayden Galvan MD at [place] [facility] [place]/A: Sternum JNJ : [employer] 03/08/2029 M654G / / 103BLE Marker Coronary - [id number] Implanted:Qty: 1 on 07/08/2024 by Jayden Galvan MD [place] [facility] [place]/A: Heart [employer] 05/08/2027 AM-SD / / [id number] Marker Coronary - [id number] Implanted:Qty: 1 on 07/08/2024 by Jayden Galvan MD at [place] [facility] [place]/A: Heart [employer] 06/07/2027 AM-SD / / [id number] documented as of this encounter Advance Directives * Full Code (Latest Code Status on File) Date Activated Date Inactivated Comments 07/08/2024 12:14 PM 07/15/2024 5:39 PM This order reflects the patients wishes and were consensually agreed upon. Question Answer Comments Discussion of Advance Directives occurred with: Patient Care Teams Casino Dealer Relationship Specialty Start Date End Date Leon Galvan DO [address] [place], [place] [address] [address] PCP - General Internal Medicine 12/28/23 documented as of this encounter
--- OUTSIDE RECORDS SUMMARY | 2024-08-28 23:23 | External Medical Summary | Summary of Care ---
Author Name Unknown Organization [facility] Address [address] [place] [address] Phone [phone] Care Team Providers Care Oracle Engineer Name Role Phone Leon Galvan DO Primary Care Provider [phone] Reason for Visit * Reason Onset Date Comments Triage Advice 08/20/202408/20 Encounter Details Date Type Department Care Team (Late st Contact Info) Description 08/20/2024 [facility]phone [facility] [address] [place] [address] Leon Galvan DO [address] [place] [address] Triage Advice (08/20) Allergies Active [...] 4 07/08/2024 Coronary artery disease invo lving soboba coronary artery of soboba heart with unstable angina pectoris 07/03/2024 Vitamin [...] h autonomic neuropathy 08/17/2023 09/17/2023 Atherosclerosis of soboba co ronary artery without angina pectoris 08/17/2023 [...] taken as prescribed. * Telephone Encounter - Leno Galvan DO - 08/20/2024 12:15 PM EST Take medications as directed. Repeat BP today * Telephone Encounter - Nelida Wahl RN - 08/20/2024 11:37 AM EST Director ProcessMetal Weigher: Cuca PEDRAZA from [facility] BP- 170/100. Took meds about 10 minutes prior. OT on the way out to see patient later today; will recheck then and update PCP office later today. No falls reported as well. Did not go to cardiology jah in [place] today due to weather. Bejarano catheter was [...] Description 08/21/2024 4:00 PM EST [facility] 132 [facility] [place] [address] Jhoana Fried RN 132 [facility] [place] [address] 08/25/2024 10:30 AM EST Telemedicine [facility], [facility] [address] [place] [address] [place] [address] [facility] [address] [place] [address] [place] [address] 08/25/2024 11:00 AM EST Tele[facility], [facility] [address] [place] [address] [place] [address] [facility], [facility] [address] [place] [address] [place] [address] 08/27/2024 10:30 AM EST Telemedicine [facility], [facility] [address] [place] [address] [place] [address] [facility], [facility] [address] [place] [address] [place] [address] 09/01/2024 10:30 AM EST Telemedicine [facility], [facility] [address] [place] [address] [place] [address] [facility], [facility] [address] [place] [address] [place] [address] 09/01/2024 1:00 PM EST Office Visit Family Practice [address] [place] [address] 293 [place] [address] Leon Galvan, 293 [facility] [place] [address] 09/02/2024 11:40 AM EST Office Visit Pharmacy, [facility] [address] [facility] 132 [facility] [place] [address] 09/03/2024 10:30 AM EST Tele[facility] [address] [place] [address] [place] [address] [facility] [address] [place] [address] [place] [address] 09/03/2024 12:30 PM EST Telemedicine [facility], [facility] [address] [place] [address] [place] [address] [facility], [facility] [address] [place] [address] [place] [address] 09/08/2024 10:30 AM EST Telemed[facility], [facility] [address] [place] [address] [place] [address] [facility] [address] [place] [address] [place] [address] 09/10/2024 10:30 AM EST Tele[facility] [address] [place] [address] [place] [address] [facility] [address] [place] [address] [place] [address] 09/10/2024 12:30 PM EST Telemed[facility] [address] [place] [address] [place] [address] [facility], [facility] [address] [place] [address] [place] [address] 09/15/2024 10:30 AM EDT Telemedicine [facility], [facility] [address] [place] [address] [place] [address] [facility] [address] [place] [address] [place] [address] 09/17/2024 8:40 AM EDT Office Visit Family Practice [address] [place] [address] 293 [place] [address] Leon Galvan, 293 [facility] [place] [address] 09/17/2024 10:30 AM EDT Telemedicine [facility], [facility] [address] [place] [address] [place] [address] [facility], [facility] [address] [place] [address] [place] [address] 09/17/2024 11:00 AM EDT Telemedicine [facility], [facility] [address] [place] [address] [place] [address] [facility] [address] [place] [address] 09/18/2024 8:00 AM EDT Office Visit Cardiology, [facility] [address] [place] [address] Alexandra Mackenzie CRNP [address] [place] [address] 09/22/2024 10:30 AM EDT Telemedicine [facility] [address] [place] [address] [place] [address] [facility], [facility] [address] [place] [address] [place] [address] 09/24/2024 10:30 AM EDT Telemedicine [facility], [facility] [address] [place] [address] [place] [address] [facility], [facility] [address] [place] [address] [place] [address] 09/24/2024 11:00 AM EDT Telemedicine [facility], [facility] [address] [place] [address] [place] [address] Advanced, [facility] [address] [place] [address] [place] [address] 09/29/2024 9:00 AM EDT Home Visit [facility] [address] [place] [address] Pito Rodriguez PA-C [address] [place] [address] 09/29/2024 10:30 AM EDT Telemedicine [facility] [address] [place] [address] [place] [address] [facility], [facility] [address] [place] [address] [place] [address] 10/01/2024 10:30 AM EDT Telemedicine Card[facility], [facility] [address] [place] [address] [place] [address] [facility], [facility] [address] [place] [address] 10/06/2024 10:30 AM EDT Telemedicine [facility], [facility] [address] [place] [address] [place] [address] [facility], [facility] [address] [place] [address] 10/08/2024 10:30 AM EDT Telemedicine [facility], [facility] [address] [place] [address] [place] [address] [facility], [facility] [address] [place] [address] 10/10/2024 3:30 PM EDT Imaging Radiology [address] [place] [address] 10/13/2024 10:30 AM EDT Telemedicine [facility], [facility] [address] [place] [address] [place] [address] Advanced, [facility] [address] [place] [address] [place] [address] 10/15/2024 10:30 AM EDT Telemedicine Card[facility], [facility] [address] [place] [address] [place] [address] Advanced, [facility] [address] [place] [address] [place] [address] 10/17/2024 9:00 AM EDT Office Visit Urology, [place] [address] [place] [address] Johnathon Kent PA-C [address] [facility] [place] [address] 02/06/2025 9:30 AM EDT Office Visit Cardiology, [facility] [address] [place] [address] Poncho Robledo, [address] [place] [address] Health Maintenance Due Date Last Done Comments Cologuard 1995 Sigmoidoscopy 1995 Fecal Occult Blood Test 12/20/2008 12/21/2007 *ADVANCE DIRECTIVE NOT ON FILE 2019 DISCUSS TOBACCO CESSATION (REFER TO SMARTSET #4961) 06/18/2024 06/18/2023, 01/24/2017 Adult Wellness Visit 02/17/2025 [...] this encounter Medical Devices Implanted Type Area Head Start Assistant Teacher Device Identifier Shelf Expiration Date Model / Serial / Lot Lead Kit Trial [id number] 50cm - [id number] - [id number] Implanted:Qty: 1 on 05/08/2024 by Maged Monreal DO at OR [facility] Left: Back [employer] : PAIN MGMT 03/18/2026 [id number] 50E0 / [id number] / Lead Kit Trial [id number] 50cm - [id number] - [id number] Implanted:Qty: 1 on 05/08/2024 by Maged Monreal DO at OR [facility] Right: Back [employer] : PAIN MGMT 03/18/2026 [id number] 50E0 / [id number] / Suture Steel 6 B&S19 M654g - [id number] Implanted:Qty: 1 on 07/08/2024 by Jayden Galvan MD at OR [facility] [place] N/A: Sternum [employer] : [employer] 03/08/2029 M654G / / 103BLE Marker Coronary - [id number] Implanted:Qty: 1 on 07/08/2024 by Jayden Galvan MD at OR [facility] [place] N/A: Heart [employer] 05/08/2027 AM-SD / / [id number] Marker Coronary - [id number] Implanted:Qty: 1 on 07/08/2024 by Jayden Galvan MD at OR [facility] [place] N/A: Heart [employer] 06/07/2027 AM-SD / / [id number] documented as of this encounter Advance Directives * Full Code (Latest Code Status on File) Date Activated Date Inactivated Comments 07/08/2024 12:14 PM 07/15/2024 5:39 PM This order reflects the patients wishes and were consensually agreed upon. Question Answer Comments Discussion of Advance Directives occurred with: Patient Care Teams Oracle Engineer Relationship Specialty Start Date End Date Leon Galvan DO [address] [facility] [place] [address] PCP - General Internal Medicine 12/28/23 documented as of this encounter
--- OUTSIDE RECORDS SUMMARY | 2024-08-28 23:24 | External Medical Summary | Summary of Care ---
Author Name Unknown Organization [facility] Address [address] [place] [address] Phone [phone] Care Team Providers Care Rn Stars Name Role Phone Leon Galvan DO Primary Care Provider [phone] Encounter Details Date Type Department Care Team (Late st Contact Info) Description 08/08/2024 10:00 AM EST [facility] [address] [facility] [place] [address] Jhoana Fried RN [address] [facility] [address] Allergies Active Allergy Reactions Criticality Noted Date Comments Codeine Other (Please comment) High 09/08/2013 Severe Skin peeling documented as of this encounter (statuses as of 08/14/2024) Medications oxygen GASIndications: Chronic coronary artery disease,COPD, mild (HCC),Heart failure, systolic, due to CAD (HCC) Use 2 L/min(Oxygen) as directed at bedtime. 1 Each 017 Active Acetaminophen 325 MG Oral Tablet Take 1 Tablet by mouth every 6 hours as needed. Active Dutasteride 0.5 MG Oral Capsule (Avodart)Indica tions:BPH with obstruction/low er urinary tract symptoms Take 1 Capsule by mouth in the morning. 100 Capsule 3 11/21/19 24 10:41 AM EDT 023 Active Additional Information Patient taking differently:0.5 mg OralDAILY NOON, Reported on 08/13/2024 buPROPion HCl ER (SR) 150 MG Oral Tablet Extended Release 12 Hour (Wellbutrin SR)Indications: Tobacco use disorder Take 1 Tablet by mouth in the morning and 1 Tablet before bedtime. 200 Tablet 3 11/21/19 24 10:41 AM EDT 023 Active busPIRone HCl 5 MG Oral Tablet (Buspar)Indicat ions:Anxiety state Take 1 Tablet by mouth in the morning and 1 Tablet before bedtime. 200 Tablet 3 11/21/19 24 10:41 AM EDT 023 Active Ezetimibe 10 MG Oral Tablet (Zetia)Indicati ons:Dyslipidemi a, goal LDL below 70 TAKE ONE TABLET BY MOUTH DAILY 100 Tablet 3 11/21/19 24 10:41 AM EDT 023 Active Mirtazapine 15 MG Oral Tablet (Remeron)Indica tions:Anxiety state Take 1 Tablet by mouth at bedtime. 100 Tablet 3 11/21/19 24 10:41 AM EDT 023 Active Rosuvastatin Calcium [...] and 1 Capsule before bedtime. 60 Capsule 025 Active Furosemide 40 MG Oral Tablet (Lasix) Take 1 Tablet by mouth in the morning. 30 Tablet 025 Active Warfarin Sodium 1 MG Oral Tablet (Coumadin) Take 1 tablet by mouth daily as directed by discharged instructions and the anticoagulation clinic. 14 Tablet Active Additional Information Patient not taking.Reported on 08/13/2024 Pantoprazole Sodium 40 MG Oral Tablet Delayed Release (Protonix)Indic ations:Gastroes ophageal reflux disease without esophagitis Take 1 Tablet by mouth in the morning. 30 Tablet Active B-12-SL 1000 MCG Sublingual Tablet Sublingual (Cyanocobalamin )Indications:Vi tamin B [address] 1,000 mcg under the tongue in the morning. Active rOPINIRole HCl 0.5 MG Oral Tablet (Requip)Indicat ions:Restless legs syndrome Take 1 Tablet by mouth at bedtime. Active Polyethylene Glycol 3350 17 GM/SCOOP Oral Powder (MiraLax)Indica tions:Slow transit constipation Take 17 g by mouth in the morning. Dissolve one heaping tablespoon in 8 ounces of water or juice.. 510 g 1 Active Nicotine Polacrilex 4 MG Mouth/Throat Lozenge (Nicorette) Administer 1 Lozenge to inside of cheek every 2 hours as needed. Max 20 per day Active Amiodarone HCl 200 MG Oral Tablet (Cordarone) Take 1 Tablet by mouth daily with breakfast. 14 Tablet 2024 Discontin ued(Refil l) Carvedilol 3.125 MG Oral Tablet (Coreg) Take 1 Tablet by mouth 2 times a day with morning and evening meals. 28 Tablet 2024 Discontin ued(Refil l) Potassium Chloride Joyce ER 10 MEQ Oral Tablet Extended Release Take 2 Tablets by mouth in the morning. 28 Tablet 025 2024 Discontin ued(Refil l) Bisacodyl 10 MG Rectal Suppository (Dulcolax)Indic ations:Slow transit constipation Administer 1 Suppository into the rectum daily for 5 days. Do not use for more than 1 week. 5 Suppository 2024 documented as of this encounter (statuses as of 08/14/2024) Active Problems Problem Noted Date Diagnosed Date [...] as of this encounter (statuses as of 08/14/2024) Resolved Problems Problem Noted Date Diagnosed Date [...] as of this encounter (statuses as of 08/14/2024) Immunizations Name Administration Dates Next Due COVID-19 [...] 08/05/2024 Does the household have a re lar [...] Sign Reading Time Taken Comments Blood Pressure 136/70 08/08/2024 10:41 AM EST Pulse 78 08/08/2024 10:41 AM EST Temperature 37 C (98.6 F) 08/08/2024 10:41 AM EST Respiratory Rate 18 08/08/2024 10:41 AM EST Oxygen Saturation 96% 08/08/2024 10:41 AM EST Inhaled Oxygen Concentration - - Weight - - Height - - Body Mass Index - - documented in this encounter Progress Notes * Jhoana Fried RN - 08/08/2024 11:28 AM EST Current Concerns: Pt seen for MEJIA #1 Admitted to [facility] for BIJAL, urinary retention Now has a rowell catheter and was told it will be discontinued next week It is draining clear dark yellow urine He is draining bag independently Provided with bed bag and educated on how to change so he can have it for overnights when in sleeping in bed Scheduled CHW to oversee pill box fill next week Pill box filled during visit with pt and sig other present and educated Pt has a list in the home that he will be following Coumadin removed and he will be starting Eliquis today - have been in contact with [facility] [address] who is following pt Pt reports he is feeling good He states he has not had any falls since home and has not been dizzy He has a walker to use but having trouble maneuvering it in some areas of the home d/t smaller space or elevated areas in the doorways He still has weakness and could benefit from home PT TE sent to PCP for further orders- he is seeing his PCP next week for f/u from hospitalization Physical Exam: Physical Exam Constitutional: General: He is not in acute distress. Cardiovascular: Rate and Rhythm: Normal rate and regular rhythm. Pulses: Normal pulses. Heart sounds: Normal heart sounds. Pulmonary: Effort: Pulmonary effort is normal. Breath sounds: Wheezing present. Abdominal: Palpations: Abdomen is soft. Skin: General: Skin is warm and dry. Neurological: Mental Status: He is alert and oriented to person, place, and time. Review of Systems: Review of Systems Constitutional: Negative. HENT: Negative. Eyes: Negative. Gastrointestinal: Negative. Genitourinary: Rowell cath patent and draining dark yellow urine Musculoskeletal: Positive for gait problem. Skin: Negative. Neurological: Positive for weakness. Psychiatric/Behavioral: Negative. Care Plan Goal Progress: Orders Placed: No orders of the defined types were placed in this encounter. Medications Given: Care Gaps: Care Gaps Care gaps closed this contact: Education;Plan of Care (POC);Medications (08/14/24834) Type of education: Clinical/disease;Educated on the benefits of connecting with their PCP () Type of medication care gap: Medication adherence (08/14/24834) Type of plan of care (POC) care gap: Adjustment of plan of care (POC) and/or Integrated Care Plan (ICP);Education and review of exacerbation plan (08/14/24834) documented in this encounter Plan of Treatment Upcoming Encounters Date Type Department Care Team (Late st Contact Info) Description 08/14/2024 3:20 PM EST Home Visit [facility] [address] [place] [address] Rad[facility] [address] [place] [address] 08/18/2024 10:30 AM EST Telemedicine [facility] [address] [place] [address] [place] [address] [facility] [address] [place] [address] [place] [address] 08/18/2024 12:30 PM EST Tele[facility]icine [facility] [address] [place] [address] [place] [address] [facility] [address] [place] [address] [place] [address] 08/20/2024 10:30 AM EST Telemedicine [facility] [address] [place] [address] [place] [address] [facility] [address] [place] [address] [place] [address] 08/20/2024 10:45 AM EST Office Visit Cardiothoracic Surg [facility] [address] [place] [address] Jayden Galvan MD [address] [facility] [place] [address] 08/21/2024 4:00 PM EST Home Visit [facility], [facility] [address] [facility] [place] [address] Jhoana Fried RN 132 [facility] [place] [address] 08/25/2024 10:30 AM EST [facility] [address] [place] [address] [place] [address] [facility] [address] [place] [address] [place] [address] 08/25/2024 11:00 AM EST Telemedicine [facility] [address] [place] [address] [place] [address] [facility] [address] [place] [address] [place] [address] 08/27/2024 10:30 AM EST Telemedicine [facility] [address] [place] [address] [place] [address] [facility] [address] [place] [address] [place] [address] 09/01/2024 10:30 AM EST Telemedicine [facility] [address] [place] [address] [place] [address] [facility] [address] [place] [address] [place] [address] 09/01/2024 1:00 PM EST Office Visit Family Practice [address] [facility] [place] [address] [place] [address] Leon Galvan, [address] [place] [address] 09/02/2024 11:40 AM EST Office Visit Pharmacy, [facility] 132 [facility] [place] [address] [facility] [address] [address] 09/03/2024 10:30 AM EST Telemedicine [facility] [address] [place] [address] [place] [address] [facility] [address] [place] [address] [place] [address] 09/03/2024 12:30 PM EST Telemedicine [facility] [address] [place] [address] [place] [address] [facility] [address] [place] [address] [place] [address] 09/08/2024 10:30 AM EST Telemedicine [facility] [address] [place] [address] [place] [address] [facility] [address] [place] [address] [place] [address] 09/10/2024 10:30 AM EST Telemedicine [facility] [address] [place] [address] [place] [address] [facility] [address] [place] [address] [place] [address] 09/10/2024 12:30 PM EST Telemedicine [facility] [address] [place] [address] [place] [address] [facility] [address] [place] [address] [place] [address] 09/15/2024 10:30 AM EDT Telemedicine [facility] [address] [place] [address] [place] [address] [facility] [address] [place] [address] [place] [address] 09/17/2024 8:40 AM EDT Office Visit Family Practice [address] [place] [address] [address] [place] [address] Leon Galvan, [address] [place] [address] 09/17/2024 10:30 AM EDT Telemedicine [facility] [address] [place] [address] [place] [address] [facility] [address] [place] [address] [place] [address] 09/17/2024 11:00 AM EDT Telemedicine [facility] [address] [place] [address] [place] [address] [facility] [address] [place] [address] [place] [address] 09/18/2024 8:00 AM EDT Office Visit Cardiology, [facility] 132 [facility] [place] [address] Alexandra Mackenzie CRNP 132 [facility] [place] [address] 09/22/2024 10:30 AM EDT Telemedicine [facility] [address] [place] [address] [place] [address] [facility] [address] [place] [address] [place] [address] 09/24/2024 10:30 AM EDT Telemedicine [facility] [address] [place] [address] [place] [address] [facility] [address] [place] [address] [place] [address] 09/24/2024 11:00 AM EDT Telemedicine [facility] [address] [place] [address] [place] [address] [facility] [address] [place] [address] [place] [address] 09/29/2024 9:00 AM EDT Home Visit [facility], [facility] [address] [place] [address] Pito Rodriguez PA-C [address] [place] [address] 09/29/2024 10:30 AM EDT Telemedicine [facility] [address] [place] [address] [place] [address] [facility] [address] [place] [address] [place] [address] 10/01/2024 10:30 AM EDT Telemedicine [facility] [address] [place] [address] [place] [address] [facility] [address] [place] [address] [place] [address] 10/06/2024 10:30 AM EDT Telemedicine [facility] [address] [place] [address] [place] [address] [facility] [address] [place] [address] [place] [address] 10/10/2024 3:30 PM EDT Imaging Radiology [facility] [address] [place] [id number] 10/17/2024 9:00 AM EDT Office Visit Urology, [place] [address] [place] [address] Johnathon Kent PA-C [address] [facility] [place] [address] 02/06/2025 9:30 AM EDT Office Visit Cardiology, [facility] [address] [place] [address] Poncho Robledo DO [address] [place] [address] Health Maintenance Due Date Last Done Comments [...] this encounter Medical Devices Implanted Type Area Agency Owner Device Identifier Shelf Expiration Date Model / Serial / Lot Lead Kit Trial [id number] 50cm - [id number] - [id number] Implanted:Qty: 1 on 05/08/2024 by Maged Monreal DO at OR [facility] Left: Back [employer] : PAIN MGMT 03/18/2026 [id number] 50E0 / [id number] / Lead Kit Trial [id number] 50cm - [id number] - [id number] Implanted:Qty: 1 on 05/08/2024 by Maged Monreal DO at OR [facility] Right: Back [employer] : PAIN MGMT 03/18/2026 [id number] 50E0 / [id number] / Suture Steel 6 B&S19 M654g - [id number] Implanted:Qty: 1 on 07/08/2024 by Jayden Galvan MD at OR [facility] N/A: Sternum JNJ : [employer] 03/08/2029 M654G / / [id number] Marker Coronary - [id number] Implanted:Qty: 1 on 07/08/2024 by Jayden Galvan MD at OR [facility] N/A: Heart [employer] 05/08/2027 [facility] / / [id number] Marker Coronary - [id number] Implanted:Qty: 1 on 07/08/2024 by Jayden Galvan MD at OR [facility] N/A: Heart [employer] 06/07/2027 [facility] / / [id number] documented as of this encounter Advance Directives * Full Code (Latest Code Status on File) Date Activated Date Inactivated Comments 07/08/2024 12:14 PM 07/15/2024 5:39 PM This order reflects the patients wishes and were consensually agreed upon. Question Answer Comments Discussion of Advance Directives occurred with: Patient Care Teams Rn Stars Relationship Specialty Start Date End Date Leon Galvan DO [address] [place] [address] PCP - General Internal Medicine 12/28/23 documented as of this encounter
--- OUTSIDE RECORDS SUMMARY | 2024-08-28 23:24 | External Medical Summary | Summary of Care ---
Author Name Unknown Organization [facility] Address [address] [place] [address] Phone [phone] Care Team Providers Care Facilities Painter Name Role Phone ZairamohitLeon DO Primary Care Provider Encounter Details Date Type Department Care Team (Late st Contact Info) Description 08/11/2024 Population Health External Data Unspecified Department Allergies Active Allergy Reactions Criticality Noted Date Comments Codeine Other (Please comment) High 09/08/2013 Severe Skin peeling documented as of this encounter (statuses as of 08/11/2024) Medications oxygen GASIndications:C hronic coronary artery disease,COPD, [...] mouth in the morning. 200 Tablet 3 08/08/19 25 Active Carvedilol 3.125 MG Oral Tablet (Coreg)Indicatio ns:HTN, goal below 140/90,Paroxysma l atrial fibrillation (HCC) Take 1 Tablet by mouth 2 times a day with morning and evening meals. 200 Tablet 3 08/08/19 25 Active Amiodarone HCl 200 MG Oral Tablet (Cordarone)Indic ations:Paroxysma l atrial fibrillation (HCC) Take 1 Tablet by mouth daily with breakfast. 100 Tablet 3 08/08/19 25 Active documented as of this encounter (statuses as of 08/11/2024) Active Problems Problem Noted Date Diagnosed Date Atrial fibrillation 08/01/2024 Impaired mobility and ADLs 07/17/2024 S/P CABG x 4 07/08/2024 Coronary artery disease invo lving [place] coronary artery of [place] heart with unstable angina pectoris 07/03/2024 Vitamin [...] as of this encounter (statuses as of 08/11/2024) Resolved Problems Problem Noted Date Diagnosed Date Resolved Date Type 2 diabetes mellitus wit h autonomic neuropathy 08/17/2023 09/17/2023 Atherosclerosis of [place] co ronary artery without angina pectoris 08/17/2023 [...] as of this encounter (statuses as of 08/11/2024) Immunizations Name Administration Dates Next Due COVID-19 [...] ages 0-17 years) Not on file 08/05/2024 Sex and Gender Information Value Date Recorded Sex Assigned at Male 02/20/2019 8:49 AM EDT Legal Sex Male 5:44 AM EST Gender Identity Male 02/20/2019 8:49 AM EDT Sexual Orientation Choose not to disclose 2018 8:49 AM EDT documented as of this encounter Plan of Treatment Upcoming Encounters Date Type Department Care Team (Late st Contact Info) Description 08/11/2024 10:30 AM EST Telemedicine Cardiac Rehab Advanced, Virtual [address] [facility] [place] [address] Advanced, Virtual Card[facility] [address] [place] [address] [place] [address] 08/11/2024 11:00 AM EST Telemedicine Cardiac Rehab Advanced, Virtual [address] [facility] [place] [address] Advanced, Virtual Cardiac Rehab [address] [place] [address] 08/12/2024 10:00 AM EST Nurse Only Family Practice 65 [facility] 293 [place] [id number] College, Nurse Fam Prac [address] [place] [address] 08/12/2024 10:20 AM EST Office Visit Family Practice 65 [facility] [place] 293 [place] [address] Leon Galvan, 293 [facility] [place] [address] 08/13/2024 10:30 AM EST Telemedicine Cardiac Rehab Advanced, Virtual [address] [place] [address] [place] [address] Advanced, Virtual Card[facility] Rehab [address] [place] [address] [place] [address] 08/14/2024 3:20 PM EST Home Visit Care Coordination and Integration [address] [place] [address] Radha Vaughn, [facility] State Game Warden [address] [place] [address] 08/18/2024 10:30 AM EST Telemedicine Cardiac Rehab Advanced, Virtual [address] [place] [address] [place] [address] Advanced, Virtual Cardiac Rehab [address] [place] [address] [place] [address] 08/18/2024 12:30 PM EST Telemedicine Cardiac Rehab Advanced, Virtual [address] [place] [address] [place] [address] Advanced, Virtual Cardiac Rehab [address] [place] [address] [place] [address] 08/20/2024 10:30 AM EST Telemedicine Cardiac Rehab Advanced, Virtual [address] [place] [address] [place] [address] Advanced, Virtual Cardiac Rehab [address] [place] [address] [place] [address] 08/20/2024 10:45 AM EST Office Visit Cardiothoracic Surg [facility] [address] [place] [address] Jayden Galvan MD [address] [place] [address] 08/21/2024 4:00 PM EST [facility] Visit [facility], [facility] 132 [facility] [place] [address] Jhoana Fried, RN 132 [facility] [place] [address] 08/25/2024 10:30 AM EST Telemedicine Cardiac Rehab Advanced, Virtual [address] [place] [address] [place] [address] Advanced, Virtual Cardiac Rehab [address] [place] [address] [place] [address] 08/25/2024 11:00 AM EST Telemedicine Cardiac Rehab Advanced, Virtual [address] [place] [address] [place] [address] Advanced, Virtual Card[facility] Rehab [address] [place] [address] [place] [address] 08/27/2024 10:30 AM EST Telemedicine Cardiac Rehab Advanced, Virtual [address] [place] [address] [place] [address] Advanced, Virtual Card[facility]hab [address] [place] [address] [place] [address] 09/01/2024 10:30 AM EST Telemedicine Cardiac Rehab Advanced, Virtual [address] [place] [address] [place] [address] Advanced, Virtual Card[facility] Rehab [address] [place] [address] [place] [address] 09/01/2024 1:00 PM EST Office Visit Family Practice [address] [place] [address] 293 [place] [phone] Leon Galvan, 293 [facility] [place] [address] 09/02/2024 11:40 AM EST Office Visit Pharmacy, [facility] [address] [place] [address] [facility] 132 [facility] [place] [address] 09/03/2024 10:30 AM EST Telemedicine Cardiac Rehab Advanced, Virtual [address] [place] [address] [place] [address] Advanced, Virtual Card[facility] Rehab [address] [place] [address] 09/03/2024 12:30 PM EST Telemedicine Cardiac Rehab Advanced, Virtual [address] [place] [address] [place] [address] Advanced, Virtual Cardiac Rehab [address] [place] [address] 09/08/2024 10:30 AM EST Telemedicine Cardiac Rehab Advanced, Virtual [address] [place] [address] [place] [address] Advanced, Virtual Card[facility] [address] [place] [address] [place] [address] 09/10/2024 10:30 AM EST Telemedicine Cardiac Rehab Advanced, Virtual [address] [place] [address] [place] [address] Advanced, Virtual Card[facility] [address] [place] [address] [place] [address] 09/10/2024 12:30 PM EST Telemedicine Cardiac Rehab Advanced, Virtual [address] [place] [address] [place] [address] Advanced, Virtual Card[facility] [address] [place] [address] 09/15/2024 10:30 AM EDT Telemedicine Cardiac Rehab Advanced, Virtual [address] [place] [address] [place] [address] Advanced, Virtual Card[facility] Re[facility] [address] [place] [address] 09/17/2024 8:40 AM EDT Office Visit Family [address] 293 [place] [address] Leon Galvan, 293 [facility] [place] [address] 09/17/2024 10:30 AM EDT Telemedicine Cardiac Rehab Advanced, Virtual [address] [place] [address] [place] [address] Advanced, Virtual Cardiac Rehab [address] [place] [address] [place] [address] 09/17/2024 11:00 AM EDT Telemedicine Cardiac Rehab Advanced, Virtual [address] [place] [address] [place] [address] Advanced, Virtual Cardiac Rehab [address] [place] [address] [place] [address] 09/18/2024 8:00 AM EDT Office Visit Cardiology, [facility] 132 [facility] [place] [address] Alexandra Mackenzie CRNP 132 [facility] [place] [address] 09/22/2024 10:30 AM EDT Telemedicine Cardiac Rehab Advanced, Virtual [address] [place] [address] [place] [address] Advanced, Virtual Card[facility] Rehab [address] [place] [address] [place] [address] 09/24/2024 10:30 AM EDT Telemedicine Cardiac Rehab Advanced, Virtual [address] [place] [address] [place] [address] Advanced, Virtual Cardiac Rehab [address] [place] [address] [place] [address] 09/24/2024 11:00 AM EDT Telemedicine Cardiac Rehab Advanced, Virtual [address] [place] [address] [place] [address] Advanced, Virtual Cardiac Rehab [address] [place] [address] [place] [address] 09/29/2024 9:00 AM EDT Home Visit [facility], [facility] [place] [address] Pito Rodriguez PA-C [address] [place] [address] 09/29/2024 10:30 AM EDT Telemedicine Cardiac Rehab Advanced, Virtual [address] [place] [address] [place] [address] Advanced, Virtual Cardiac Rehab [address] [place] [address] [place] [address] 10/01/2024 10:30 AM EDT Telemedicine Cardiac Rehab Advanced, Virtual [address] [place] [address] [place] [address] Advanced, Virtual Cardiac Rehab [address] [place] [address] [place] [address] 10/06/2024 10:30 AM EDT Telemedicine Cardiac Rehab Advanced, Virtual [address] [place] [address] [place] [address] Advanced, Virtual Cardiac Rehab [address] [place] [address] [place] [address] 10/10/2024 3:30 PM EDT Imaging Radiology [facility] [address] [place] [address] 10/17/2024 9:00 AM EDT Office Visit Urology, [place] [address] [place] [address] Johnathon Kent PA-C [address] [facility] [place] [address] 02/06/2025 9:30 AM EDT Office Visit Cardiology, [facility] [address] [place] [address] Poncho Robledo O, [address] [place] [address] Health Maintenance Due Date Last Done Comments [...] this encounter Medical Devices Implanted Type Area Metal Weather Stripper Device Identifier Shelf Expiration Date Model / Serial / Lot Lead Kit Trial [id number] 50cm - [id number] - [id number] Implanted:Qty: 1 on 05/08/2024 by Maged Monreal DO at OR [facility] Left: Back [employer] : PAIN MGMT 03/18/2026 [id number] 50E0 / [id number] / Lead Kit Trial [id number] 50cm - [id number] - [id number] Implanted:Qty: 1 on 05/08/2024 by Maged Monreal DO at OR [facility] Right: Back [employer] : PAIN MGMT 03/18/2026 [id number] 50E0 / [id number] / Suture Steel 6 B&S19 M654g - [id number] Implanted:Qty: 1 on 07/08/2024 by Jayden Galvan MD [place] [facility] [place]/A: Sternum JNJ : [employer] 03/08/2029 M654G / / 103BLE Marker Coronary - [id number] Implanted:Qty: 1 on 07/08/2024 by Jayden Galvan MD [place] [facility] [place] N/A: Heart [employer] 05/08/2027 AM-SD / / [id number] Marker Coronary - [id number] Implanted:Qty: 1 on 07/08/2024 by Jayden Galvan MD [place] [facility] [place] N/A: Heart [employer] 06/07/2027 AM-SD / / [id number] documented as of this encounter Advance Directives * Full Code (Latest Code Status on File) Date Activated Date Inactivated Comments 07/08/2024 12:14 PM 07/15/2024 5:39 PM This order reflects the patients wishes and were consensually agreed upon. Question Answer Comments Discussion of Advance Directives occurred with: Patient Care Teams Facilities Painter Relationship Specialty Start Date End Date Leon Galvan DO [address] [place] [address] PCP - General Internal Medicine 12/28/23 documented as of this encounter
--- OUTSIDE RECORDS SUMMARY | 2024-08-28 23:24 | External Medical Summary | Summary of Care ---
Author Name Unknown Organization [facility] Address [address] [place] [address] Phone [phone] Care Team Providers Care Jewelry Bench Worker Name Role Phone Leon Galvan DO Primary Care Provider [phone] Reason for Visit * Reason Onset Date Comments FYI 08/11/2024 falls Encounter Details Date Type Department Care Team (Late st Contact Info) Description 08/11/2024 Telephone Family Practice 65 [facility] [address] [place] [address] Leon Galvan DO [address] [place] [address] FYI (falls) Allergies Active Allergy Reactions Criticality Noted Date Comments Codeine Other (Please comment) High 09/08/2013 Severe Skin peeling documented as of this encounter (statuses as of 08/13/2024) Medications oxygen GASIndications:C hronic coronary artery disease,COPD, [...] 5 1:04 PM EST 08/08/19 25 Active documented as of this encounter (statuses as of 08/13/2024) Active Problems Problem Noted Date Diagnosed Date Atrial fibrillation 08/01/2024 Impaired mobility and ADLs 07/17/2024 S/P CABG x 4 07/08/2024 Coronary artery disease invo lving [place] coronary artery of [place] heart with unstable angina pectoris 07/03/2024 Vitamin [...] as of this encounter (statuses as of 08/13/2024) Resolved Problems Problem Noted Date Diagnosed Date Resolved Date Type 2 diabetes mellitus wit h autonomic neuropathy 08/17/2023 09/17/2023 Atherosclerosis of [place] co ronary artery without angina pectoris 08/17/2023 [...] as of this encounter (statuses as of 08/13/2024) Immunizations Name Administration Dates Next Due COVID-19 [...] Telephone Encounter - Leon Galvan DO - 08/13/2024 9:47 AM EST Noted * Telephone Encounter - Nelida Wahl RN - 08/11/2024 3:12 PM EST Please do face to face eval at PCP appt tomorrow, 08/12 @ 1020 * Telephone Encounter - Leon Galvan DO - 08/11/2024 11:46 AM EST Needs PT evaluation See if Home Health is coming to the house. See if PT has been working with the patient. 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 Discussed medications- taking what is in pillbox that was set up for him by [facility]. States falling off of bed; denies hitting head; Mariama caught him twice. Reports last fall was Sunday-maybe- unsure of exact date. Reports 'bed is slippy." Refused to have hospital bed ordered for him so that it would be lower to the ground and he would not be as much as a fall risk. ANTONIO is at home. Confirmed PCP appt tomorrow at 10am -- will be bringing him. He wants his catheter out RAIMUNDO- urine is yellow[place] [facility] [place]08 at 1300 Review of Systems: Review of Systems Constitutional: Negative for fever. Respiratory: Negative for chest tightness and shortness of breath. Cardiovascular: Negative for chest pain. Gastrointestinal: Negative for diarrhea, nausea and vomiting. Neurological: Positive for weakness (only when first out of bed and when I go to bed at night; refused hospital bed to be ordered.). Negative for headaches. Recommendations? documented in this encounter Plan of Treatment Upcoming Encounters Date Type Department Care Team (Late st Contact Info) Description 08/14/2024 3:20 PM EST Home Visit Care Coordination and Integration [address] [place] [address] Radha Vaughn, Community [facility] Affiliate Marketing Manager [address] [place] [address] 08/18/2024 10:30 AM EST Telemedicine Cardiac Rehab Advanced, Virtual [address] [place] [address] [place] [address] Advanced, Virtual Cardiac Rehab [address] [place] [address] [place] [address] 08/18/2024 12:30 PM EST Telemedicine Cardiac Rehab Advanced, Virtual [address] [place] [address] [place] [address] Advanced, Virtual Cardiac Rehab [address] [place] [address] [place] [address] 08/20/2024 10:30 AM EST Telemedicine Cardiac Rehab Advanced, [address] [place] [address] Advanced, Virtual Cardiac Rehab [address] [place] [address] [place] [address] 08/20/2024 10:45 AM EST Office Visit Cardiothoracic Surg [facility] [address] [place] [address] Jayden Galvan MD [address] [place] [address] 08/21/2024 4:00 PM EST Home Visit [facility], [facility] 132 [facility] [place] [address] Jhoana Fried, RN 132 [facility] [place] [address] 08/25/2024 10:30 AM EST Telemedicine Cardiac Rehab Advanced, Virtual [address] [place] [address] [place] [address] Advanced, Virtual Cardiac Rehab [address] [place] [address] [place] [address] 08/25/2024 11:00 AM EST Telemedicine Cardiac Rehab Advanced, Virtual [address] [place] [address] [place] [address] Advanced, Virtual Cardiac Rehab [address] [place] [address] [place] [address] 08/27/2024 10:30 AM EST Telemedicine Cardiac Rehab Advanced, Virtual [address] [place] [address] [place] [address] Advanced, Virtual Cardiac Rehab [address] [place] [address] [place] [address] 09/01/2024 10:30 AM EST Telemedicine Cardiac Rehab Advanced, Virtual [address] [place] [address] [place] [address] Advanced, Virtual Cardiac Rehab [address] [place] [address] [place] [address] 09/01/2024 1:00 PM EST Office Visit Family Practice [address] [place] [address] 293 [facility] [place] [address] Leon Galvan, 293 [place] [address] 09/02/2024 11:40 AM EST Office Visit Pharmacy, [facility] 132 [facility] [place] [address] [facility] 132 [facility] [place] [address] 09/03/2024 10:30 AM EST Telemedicine Cardiac Rehab Advanced, Virtual [address] [place] [address] [place] [address] Advanced, Virtual Cardiac Rehab [address] [place] [address] 09/03/2024 12:30 PM EST Telemedicine Cardiac Rehab Advanced, Virtual [address] [place] [address] [place] [address] Advanced, Virtual Cardiac Rehab 675 [place] [address] 09/08/2024 10:30 AM EST Telemedicine Cardiac Rehab Advanced, Virtual [address] [place] [address] [place] [address] Advanced, Virtual Cardiac Rehab [address] [place] [address] 09/10/2024 10:30 AM EST Telemedicine Cardiac Rehab Advanced, Virtual [address] [place] [address] [place] [address] Advanced, Virtual Cardiac Rehab [address] [place] [address] 09/10/2024 12:30 PM EST Telemedicine Cardiac Rehab Advanced, Virtual [address] [place] [address] [place] [address] Advanced, Virtual Cardiac Rehab [address] [place] [address] 09/15/2024 10:30 AM EDT Telemedicine Cardiac Rehab Advanced, Virtual [address] [place] [address] [place] [address] Advanced, Virtual Cardiac Rehab [address] [place] [address] 09/17/2024 8:40 AM EDT Office Visit Family Practice 65 [facility] 293 [facility] [place] [address] Leon Galvan, 293 [place] [address] 09/17/2024 10:30 AM EDT Telemedicine Cardiac Rehab Advanced, Virtual [address] [place] [address] [place] [address] Advanced, Virtual Card[facility] Rehab [address] [place] [address] [place] [address] 09/17/2024 11:00 AM EDT Telemedicine Cardiac Rehab Advanced, Virtual [address] [place] [address] [place] [address] Advanced, Virtual Cardiac Rehab [address] [place] [address] [place] [address] 09/18/2024 8:00 AM EDT Office Visit Cardiology, [facility] [address] [place] [address] Alexandra Mackenzie CRNP [address] [place] [address] 09/22/2024 10:30 AM EDT Telemedicine Cardiac Rehab Advanced, Virtual [address] [place] [address] [place] [address] Advanced, Virtual Cardiac Rehab [address] [place] [address] [place] [address] 09/24/2024 10:30 AM EDT Telemedicine Cardiac Rehab Advanced, Virtual [address] [place] [address] [place] [address] Advanced, Virtual Cardiac Rehab [address] [place] [address] [place] [address] 09/24/2024 11:00 AM EDT Telemedicine Cardiac Rehab Advanced, Virtual [address] [place] [address] [place] [address] Advanced, Virtual Cardiac Rehab [address] [place] [address] [place] [address] 09/29/2024 9:00 AM EDT Home Visit [facility], [facility] [address] [place] [address] Pito Rodriguez PA-C [address] [place] [address] 09/29/2024 10:30 AM EDT Telemedicine Cardiac Rehab Advanced, Virtual [address] [place] [address] [place] [address] Advanced, Virtual Cardiac Rehab [address] [place] [address] 10/01/2024 10:30 AM EDT Telemedicine Cardiac Rehab Advanced, Virtual [address] [place] [address] [place] [address] Advanced, Virtual Cardiac Rehab [address] [place] [address] [place] [address] 10/06/2024 10:30 AM EDT Telemedicine Cardiac Rehab Advanced, Virtual [address] [place] [address] [place] [address] Advanced, Virtual Cardiac Rehab [address] [place] [address] [place] [address] 10/10/2024 3:30 PM EDT Imaging Radiology [facility] [address] [place] [id number] 10/17/2024 9:00 AM EDT Office Visit Urology, [place] [address] [place] [address] Johnathon Kent PA-C [address] [place] [address] 02/06/2025 9:30 AM EDT Office Visit Cardiology, [facility] [address] [place] [address] Poncho Robledo, [address] [place] [address] Health Maintenance Due Date Last Done Comments Cologuard 1995 Sigmoidoscopy 1995 Fecal Occult Blood Test 12/20/2008 12/21/2007 *ADVANCE DIRECTIVE NOT ON FILE 2019 DISCUSS TOBACCO CESSATION (REFER TO SMARTSET #3291) 06/18/2024 06/18/2023, 01/24/2017 Adult Wellness Visit 02/17/2025 02/18/2024, 10/31/2022, 08/17/2021 Depression Screening 02/17/2025 02/18/2024, 01/02/20 24 O2 ASSESSMENT COMPLETED IN PAST YEAR FOR COPD 07/08/2025 07/08/2024 GFR 08/01/2025 08/01/2024, /0 01/2025, 07/14/2024, Additional history exists Albumin/Creatinine Ratio [...] this encounter Medical Devices Implanted Type Area Lab Support Service Tech Device Identifier Shelf Expiration Date Model / Serial / Lot Lead Kit Trial [id number] 50cm - [id number] - [id number] Implanted:Qty: 1 on 05/08/2024 by Maged Monreal DO at OR [facility] Left: Back [employer] : PAIN MGMT 03/18/2026 [id number] 50E0 / [id number] / Lead Kit Trial [id number] 50cm - [id number] - [id number] Implanted:Qty: 1 on 05/08/2024 by Maged Monreal DO at OR [facility] Right: Back [employer] : PAIN MGMT 03/18/2026 [id number] 50E0 / [id number] / Suture Steel 6 B&S19 M654g - [id number] Implanted:Qty: 1 on 07/08/2024 by Jayden Galvan [place] [facility] [place]: Sternum JNJ : [employer] 03/08/2029 M654G / / 103BLE Marker Coronary - [id number] Implanted:Qty: 1 on 07/08/2024 by Jayden Galvan [place] [facility] [place]: Heart [employer] 05/08/2027 AM-SD / / [id number] Marker Coronary - [id number] Implanted:Qty: 1 on 07/08/2024 by Jayden Galvan [place] [facility] [place]: Heart [employer] 06/07/2027 AM-SD / / [id number] documented as of this encounter Advance Directives * Full Code (Latest Code Status on File) Date Activated Date Inactivated Comments 07/08/2024 12:14 PM 07/15/2024 5:39 PM This order reflects the patients wishes and were consensually agreed upon. Question Answer Comments Discussion of Advance Directives occurred with: Patient Care Teams Jewelry Bench Worker Relationship Specialty Start Date End Date Leon Galvan DO [address] [place] [address] PCP - General Internal Medicine 12/28/23 documented as of this encounter
--- OUTSIDE RECORDS SUMMARY | 2024-08-28 23:24 | External Medical Summary | Summary of Care ---
Author Name Unknown Organization [facility] Address [address] [place] [address] Phone [phone] Care Team Providers Care Monitoring Manager Name Role Phone Leon Galvan DO Primary Care Provider [phone] Reason for Visit * Reason Onset Date Comments [facility]: Maintenance 08/08/2024 Encounter Details Date Type Department Care Team (Late st Contact Info) Description 08/08/2024 Telephone [facility], [facility] [address] [place] [address] Jhoana Fried, RN [address] [place] [address] [facility]: Maintenance Allergies Active Allergy [...] 100 Capsule 3 4 10:41 AM EDT 08/01/20 23 Active Additional Information Patient taking differently:0.5 [...] Max 20 per day 08/07/19 25 Active documented as of this encounter (statuses as of 08/13/2024) Active Problems Problem Noted Date Diagnosed Date Atrial fibrillation 08/01/2024 Impaired mobility and ADLs 07/17/2024 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 Patient scheduled with PT today * Telephone Encounter - Jhoana Fried RN - 08/08/2024 11:24 AM EST Pt would benefit from having home health PT. He has been given a walker from hospitalization and is having trouble maneuvering with it. He is still unsteady and has BLE weakness. [facility] does not have a face to face provider visit scheduled for some time. Could you please order based off your visit next week? He does not have a preference for which company to use so whoever can see if will do. Thank you! documented in this encounter Plan of Treatment Upcoming Encounters Date Type Department Care Team (Late st Contact Info) Description 08/14/2024 3:20 PM EST Home Visit [facility] Coordination [facility] Integration [address] [place] [address] Radha Vaughn, [facility] [employer] [address] [place] [address] 08/18/2024 10:30 AM EST [facility] [address] [place] [address] [place] [address] [facility] [address] [place] [address] [place] [id number] 08/18/2024 12:30 PM EST [facility], [address] [place] [address] [facility] [address] [place] [address] [place] [address] 08/20/2024 10:30 AM EST [facility], [address] [place] [address] [facility] [address] [place] [address] [place] [address] 08/20/2024 10:45 AM EST Office Visit Cardiothoracic Surg [facility] [address] [place] [address] Jayden Galvan MD [address] [place] [address] 08/21/2024 4:00 PM EST Home Visit [facility] [address] [facility] [place] [address] Jhoana Fried, RN 132 [facility] [place] [address] 08/25/2024 10:30 AM EST [facility] [address] [place] [address] [place] [address] [facility] [address] [place] [address] 08/25/2024 11:00 AM EST [facility] [address] [place] [address] [place] [address] [facility] [address] [place] [id number] 08/27/2024 10:30 AM EST [facility] [address] [place] [address] [place] [address] [facility] [address] [place] [address] 09/01/2024 10:30 AM EST [facility] [address] [place] [address] [place] [address] [facility] [address] [place] [address] [place] [address] 09/01/2024 1:00 PM EST Office Visit Family Practice [address] [place] [address] [address] [facility] [place] [address] Leon Galvan, [address] [place] [address] 09/02/2024 11:40 AM EST Office Visit Pharmacy, [facility] [address] [facility] [place] [address] [facility] [address] [facility] [place] [address] 09/03/2024 10:30 AM EST [facility] [address] [place] [address] [place] [address] [facility] [address] [place] [address] 09/03/2024 12:30 PM EST [facility] [address] [place] [address] [place] [address] [facility] [address] [place] [address] [place] [address] 09/08/2024 10:30 AM EST [facility] [address] [place] [address] [place] [address] [facility] [address] [place] [address] [place] [address] 09/10/2024 10:30 AM EST [facility] [address] [place] [address] [place] [address] [facility] [address] [place] [address] [place] [address] 09/10/2024 12:30 PM EST [facility] [address] [place] [address] [place] [address] [facility] [address] [place] [address] [place] [address] 09/15/2024 10:30 AM EDT [facility] [address] [place] [address] [place] [address] [facility] [address] [place] [address] [place] [address] 09/17/2024 8:40 AM EDT Office Visit Family Practice 65 [facility] [address] [facility] [place] [id number] Leon Galvan, 293 [place] [address] 09/17/2024 10:30 AM EDT [facility] [address] [place] [address] [place] [address] [facility] [address] [place] [address] [place] [address] 09/17/2024 11:00 AM EDT [facility] [address] [place] [address] [place] [address] [facility] [address] [place] [address] [place] [address] 09/18/2024 8:00 AM EDT Office Visit Cardiology, [facility] [address] [place] [address] Alexandra Mackenzie CRNP [address] [place] [address] 09/22/2024 10:30 AM EDT [facility] [address] [place] [address] [place] [address] [facility] [address] [place] [address] [place] [address] 09/24/2024 10:30 AM EDT [facility] [address] [place] [address] [place] [address] [facility] [address] [place] [address] [place] [address] 09/24/2024 11:00 AM EDT [facility] [address] [place] [address] [place] [address] [facility] [address] [place] [address] [place] [address] 09/29/2024 9:00 AM EDT Home Visit [facility] [address] [place] [address] Pito Rodriguez PA-C [address] [place] [address] 09/29/2024 10:30 AM EDT [facility] [address] [place] [address] [place] [address] [facility] [address] [place] [address] 10/01/2024 10:30 AM EDT [facility] [address] [place] [address] [place] [address] [facility] [address] [place] [address] 10/06/2024 10:30 AM EDT [facility] [address] [place] [address] [place] [address] [facility] [address] [place] [address] 10/10/2024 3:30 PM EDT Imaging Radiology [facility] [address] [place] [phone] 10/17/2024 9:00 AM EDT Office Visit Urology, [place] [address] [place] [address] Johnathon Kent PA-C [address] [place] [address] 02/06/2025 9:30 AM EDT Office Visit Cardiology, [facility] [address] [place] [address] Poncho Robledo DO [address] [place] [address] Health Maintenance Due Date Last Done Comments Cologuard 1995 Sigmoidoscopy 1995 Fecal Occult Blood Test 12/20/2008 12/21/2007 *ADVANCE DIRECTIVE NOT ON FILE 2019 DISCUSS TOBACCO CESSATION (REFER TO SMARTSET #2490) 06/18/2024 06/18/2023, 01/24/2017 Adult Wellness Visit 02/17/2025 02/18/2024, 10/31/2022, 08/17/2021 Depression Screening 02/17/2025 02/18/2024, 01/02/20 24 O2 ASSESSMENT COMPLETED IN PAST YEAR FOR COPD 07/08/2025 07/08/2024 GFR 08/01/2025 08/01/2024, 01/0 01/2025, 07/14/2024, Additional history exists Albumin/Creatinine Ratio [...] this encounter Medical Devices Implanted Type Area Scaling Machine Operator Device Identifier Shelf Expiration Date Model / Serial / Lot Lead Kit Trial [id number] 50cm - [id number] - [id number] Implanted:Qty: 1 on 05/08/2024 by Maged Monreal DO at OR [facility] Left: Back [employer] : PAIN MGMT 03/18/2026 [id number] 50E0 / [id number] / Lead Kit Trial [id number] 50cm - [id number] - [id number] Implanted:Qty: 1 on 05/08/2024 by Maged Monreal DO at OR [facility] Right: Back [employer] : PAIN MGMT 03/18/2026 [id number] 50E0 / [id number] / Suture Steel 6 B&S19 M654g - [id number] Implanted:Qty: 1 on 07/08/2024 by Jayden Galvan MD at OR [facility] N/A: Sternum JNJ : [employer] 03/08/2029 [id number] / / [id number] Marker Coronary - [id number] Implanted:Qty: 1 on 07/08/2024 by Jayden Galvan MD at OR [facility] N/A: Heart [employer] 05/08/2027 [employer] / / [id number] Marker Coronary - [id number] Implanted:Qty: 1 on 07/08/2024 by Jayden Galvan MD at OR [facility] N/A: Heart [employer] 06/07/2027 [employer] / / [id number] documented as of this encounter Advance Directives * Full Code (Latest Code Status on File) Date Activated Date Inactivated Comments 07/08/2024 12:14 PM 07/15/2024 5:39 PM This order reflects the patients wishes and were consensually agreed upon. Question Answer Comments Discussion of Advance Directives occurred with: Patient Care Teams Monitoring Manager Relationship Specialty Start Date End Date Leon Galvan DO [address] [place] [address] PCP - General Internal Medicine 12/28/23 documented as of this encounter
--- OUTSIDE RECORDS SUMMARY | 2024-08-28 23:24 | External Medical Summary | Summary of Care ---
Author Name Unknown Organization [facility] Address [address] [place] [address] Phone [phone] Care Team Providers Care Group Work Program Aide Name Role Phone Leon Galvan DO Primary Care Provider [phone] Reason for Visit * Reason Onset Date Comments Hospital Follow-Up Hospital Follow-Up 08/13/2024 Encounter Details Date Type Department Care Team (Latest Contact Info) Description 08/13/2024 8:40 AM EST Office Visit Family Practice [facility] [place] [address] [place] [address] Leon Galvan DO [address] [place] [address] BIJAL (acute kidney injury) ([facility])*; Physical deconditioning; Urinary retention; Paroxysmal atrial fibrillation ([facility]); Cerebrovascular disease, arteriosclerotic, post-stroke; Cognitive changes; COPD, group D, by GOLD 2017 classification ([facility]); Coronary artery disease involving chicken ranch coronary artery of chicken ranch heart with unstable angina pectoris ([facility]); Dyslipidemia, goal LDL below 70; Gastroesophageal reflux disease without esophagitis; Idiopathic chronic gout of right foot without tophus; Heart failure, systolic, due to CAD ([facility]); HTN, goal below 140/90; Degeneration of intervertebral disc of lumbar region with discogenic back pain and lower extremity pain; Pulmonary nodule; Right renal mass; S/P CABG x 4; Tobacco use disorder; Vitamin B 12 deficiency; Restless legs syndrome; Hospital discharge follow-up Allergies Active Allergy Reactions [...] 4 07/08/2024 Coronary artery disease invo lving chicken ranch coronary artery of chicken ranch heart with unstable angina pectoris 07/03/2024 Vitamin [...] h autonomic neuropathy 08/17/2023 09/17/2023 Atherosclerosis of chicken ranch co ronary artery without angina pectoris 08/17/2023 [...] Tobacco: Never Tobacco Cessation:Ready to Q uit: No; Counseling Given: Yes Comments:2 cigarettes/day Alcohol Use [...] Sign Reading Time Taken Comments Blood Pressure 140/76 08/13/2024 8:37 AM EST Pulse 72 08/13/2024 8:37 AM EST Temperature 35.5 C (95.9 F) 08/13/2024 8:37 AM ES T Respiratory Rate 14 08/13/2024 8:37 AM EST Oxygen Saturation 94% 08/13/2024 8:37 AM EST Inhaled Oxygen Concentration - - Weight 64.5 kg (142 lb 1.6 oz) 08/13/2024 8:37 A M EST Height 175.3 cm (5' 9") 08/13/2024 8:37 AM EST Body Mass Index 20.98 08/13/2024 8:37 AM EST documented in this encounter Progress Notes * Leon Galvan, - 08/13/2024 9:13 AM EST SUBJECTIVE: Henri Vigil is a 74 year old male. Chief Complaint Patient presents with Hospital Follow-Up Hospital Follow-Up Recent Admission: Patient was recently admitted to [facility]. The date of discharge was 08/07/2024.Discharge report received and reviewed. HPI: Patient is a 74 year old male with a history of IL, CAD, LAD stent, Hyperlipidemia, COPD, Memory Loss, LV Thrombus, CABG x 4, Atrial Fibrillation, CVA, right Renal Mass, Systolic CHF, BPH, Anxiety, B12 deficiency, Lumbar Disc Disease, Lumbar Spinal Fusion and Tobacco Abuse that is seen for hospital follow up. The patient was admitted to [facility] 07/28/2024-08/07/2024 due to BIJAL from urinary Retention,and weakness. He did fall. Patient was noted to have Urinary retention on CT abdomen / pelvis. Rowell was placed and renal function improved. Urology recommended voiding trial in 7-10 days. He was admitted [place] [facility] [place] 07/08/2024- 07/15/2024 and was treated with CABG x 4. Patient had postoperative Atrial Fibrillation and was started on Amiodarone and anticoagulated. Patient has LV thrombus as well. Weight is down and appetite has decreased. No chest pain is preset. Chronic shortness of breath is stable. Chronic radicular back pain is stable. He is having daily bowel movements. Patient Active Problem List Diagnosis Tobacco use disorder BPH without obstruction/lower urinary tract symptoms Esophageal reflux Dyslipidemia, goal LDL below 70 Heart failure, systolic, due to CAD ([facility]) Old IL (myocardial infarction) Pulmonary nodule Gout Restless legs syndrome Cognitive changes Cerebrovascular disease, arteriosclerotic, post-stroke Right renal mass COPD, group D, by GOLD 2017 classification ([facility]) Anxiety state Lumbar degenerative disc disease HTN, goal below 140/90 Vitamin B 12 deficiency Coronary artery disease involving chicken ranch coronary artery of chicken ranch heart with unstable angina pectoris ([facility]) S/P CABG x 4 Impaired mobility and ADLs Atrial fibrillation ([facility]) Current Outpatient Medications Medication Sig Dispense Refill Acetaminophen 325 MG Oral Tablet Take 1 Tablet by mouth every 6 hours as needed. Dutasteride 0.5 MG Oral Capsule (Avodart) Take 1 Capsule by mouth in the morning. (Patient taking differently: Take 1 Capsule by mouth daily at noon.) 100 Capsule 3 buPROPion HCl ER (SR) 150 MG [...] mouth in the morning. 30 Tablet 0 B-12-SL 1000 MCG Sublingual Tablet Sublingual (Cyanocobalamin) Place 1,000 mcg under the tongue in the morning. rOPINIRole HCl 0.5 MG Oral Tablet (Requip) Take 1 Tablet by mouth at bedtime. Potassium Chloride Joyce ER 10 MEQ Oral Tablet Extended Release Take 2 Tablets by mouth in the morning. 200 Tablet 3 Carvedilol 3.125 MG Oral Tablet (Coreg) Take 1 Tablet by mouth 2 times a day with morning and evening meals. 200 Tablet 3 Amiodarone HCl 200 MG Oral Tablet (Cordarone) Take 1 Tablet by mouth daily with breakfast. 100 Tablet 3 Apixaban 5 MG Oral Tablet (Eliquis) Take 1 Tablet by mouth in the morning and 1 Tablet before bedtime. Famotidine 20 MG Oral Tablet (Pepcid) Take 1 Tablet by mouth in the morning and 1 Tablet before bedtime. As needed for heartburn. oxygen GAS Use 2 L/min(Oxygen) as directed at bedtime. 1 Each 0 Warfarin Sodium 1 MG Oral Tablet (Coumadin) Take 1 tablet by mouth daily as directed by discharged instructions and the anticoagulation clinic. (Patient not taking: Reported on 08/13/2024) 14 Tablet 0 Polyethylene Glycol 3350 17 GM/SCOOP Oral Powder (MiraLax) Take 17 g by mouth in the morning. Dissolve one heaping tablespoon in 8 ounces of water or juice.. 510 g 1 Nicotine Polacrilex 4 MG Mouth/Throat Lozenge (Nicorette) Administer 1 Lozenge to inside of cheek every 2 hours as needed. Max 20 per day No current facility-administered medications for this visit. Current and discharge medications have been reconciled. Review of patient's allergies indicates: Allergen Reactions Codeine Other (Please comment) Severe Skin peeling OBJECTIVE: BP 140/76 | Pulse 72 | Temp 95.9 F (35.5 C) | Resp 14 | Ht 5' 9" (1.753 m) | Wt 142 lb 1.6 oz (64.5 kg) | SpO2 94% | BMI 20.98 kg/m | BSA 1.77 m REVIEW OF SYSTEMS: Review of Systems Constitutional: Positive for appetite change and fatigue. Negative for chills and fever. HENT: Negative for congestion, sore throat and trouble swallowing. Respiratory: Positive for shortness of breath. Negative for cough and wheezing. Cardiovascular: Negative for chest pain, palpitations and leg swelling. Gastrointestinal: Negative for abdominal pain, blood in stool, constipation, diarrhea, nausea and vomiting. Genitourinary: Rowell in place Musculoskeletal: Positive for back pain and gait problem. Neurological: Positive for weakness. Negative for dizziness, syncope and headaches. Psychiatric/Behavioral: Positive for sleep disturbance. Negative for confusion and decreased concentration. PHYSICAL EXAM: BP 140/76 | Pulse 72 | Temp 95.9 F (35.5 C) | Resp 14 | Ht 5' 9" (1.753 m) | Wt 142 lb 1.6 oz (64.5 kg) | SpO2 94% | BMI 20.98 kg/m | BSA 1.77 m Physical Exam Vitals and nursing note [...] and Affect: Mood normal. Behavior: Behavior normal. ASSESSMENT/PLAN BIJAL (acute kidney injury) (HCC) (Primary) - COMPREHENSIVE METABOLIC PANEL; Future; Expected date: 08/13/2024 - CBC WITH WBC DIFFERENTIAL; Future; Expected date: 08/13/2024 - COMPREHENSIVE METABOLIC PANEL - CBC WITH WBC DIFFERENTIAL Resolved Physical deconditioning [facility] Home health following with patient PT/ OT to start this week Urinary retention - POST VOID RESIDUAL BLADDER, CATHETER on 08/14 if Home Health can schedule this week. Remove Rowell on 08/14 and check postvoid on 08/15 If residual > 250 ml of urine replace rowell Reviewed plan with Case Management who has contacted [facility] Visiting Nurse. Paroxysmal atrial fibrillation (HCC) Continue Apixaban and Amiodarone per Cardiology Cerebrovascular disease, arteriosclerotic, post-stroke Continue Clopidogrel Cognitive changes COPD, group D, by GOLD 2017 classification ([facility]) Coronary artery disease involving chicken ranch coronary artery of chicken ranch heart with unstable angina pectoris ([facility]) Continue Carvedilol, and Clopidogrel Dyslipidemia, goal LDL below 70 Continue Rosuvastatin Gastroesophageal reflux disease without esophagitis Continue Pantoprazole Idiopathic chronic gout of right foot without tophus Heart failure, systolic, due to CAD ([facility]) Continue Carvedilol, and Furosemide HTN, goal below 140/90 Continue Carvedilol Degeneration of intervertebral disc of lumbar region with discogenic back pain and lower extremity pain Continue Pregabalin Pulmonary nodule CT ordered by CT surgery Right renal mass US and Urology follow up scheduled S/P CABG x 4 Tobacco use disorder Vitamin B 12 deficiency Continue Vitamin B -12 Restless legs syndrome Hospital discharge follow-up - DISCH MED RECON CUR MED LIS Follow Up: Return in about 19 days (around 09/01/2024), or if symptoms worsen or fail to improve. Leon Galvan DO documented in this encounter Plan of Treatment Upcoming Encounters Date Type Department Care Team (Late st Contact Info) Description 08/14/2024 3:20 PM EST Home Visit Care Coordination [facility] Integration [address], [place] [id number] Radha Vaughn Community Health Director Graphics [address], [place] [id number] [phone] 08/18/2024 10:30 AM EST [facility] [address] [place] [address] [place] [phone] [facility] [address] [place] [address] [place] [phone] 08/18/2024 12:30 PM EST [facility] [address] [place] [address] [place] [address] [facility] [address] [place] [address] [place] [address] 08/20/2024 10:30 AM EST [facility] [address] [place] [address] [place] [address] [facility] [address] [place] [address] [place] [phone] 08/20/2024 10:45 AM EST Office Visit Cardiothoracic Surg [facility] [address] [place] [address] Jayden Galvan MD [address] [place] [address] 08/21/2024 4:00 PM EST Home Visit [facility] [place] [address] Jhoana Fried RN [address] [place] [address] 08/25/2024 10:30 AM EST [facility] [address] [place] [address] [place] [address] [facility] [address] [place] [address] [place] [address] 08/25/2024 11:00 AM EST [facility] [address] [place] [address] [place] [address] [facility] [address] [place] [address] [place] [id number] 08/27/2024 10:30 AM EST [facility] [address] [place] [address] [place] [address] [facility] [address] [place] [address] [place] [address] 09/01/2024 10:30 AM EST [facility] [address] [place] [address] [place] [address] [facility] [address] [place] [address] [place] [address] 09/01/2024 1:00 PM EST Office Visit Family Practice [address] [place] [address] [address] [facility] [place] [address] Leon Galvan DO 293 [place] [address] 09/02/2024 11:40 AM EST Office Visit Pharmacy, [facility] [address] [facility] [address] [facility] [place] [address] 09/03/2024 10:30 AM EST [facility] [address] [place] [address] [place] [address] [facility] [address] [place] [address] [place] [address] 09/03/2024 12:30 PM EST [facility] [address] [place] [address] [place] [address] [facility] [address] [place] [address] [place] [address] 09/08/2024 10:30 AM EST Telemedicine [facility] [place] [address] [facility] [address] [place] [address] 09/10/2024 10:30 AM EST [facility] [address] [place] [address] [place] [address] [facility] [address] [place] [address] 09/10/2024 12:30 PM EST [facility] [address] [place] [address] [place] [address] [facility] [address] [place] [address] 09/15/2024 10:30 AM EDT [facility] [address] [place] [address] [place] [address] [facility] [address] [place] [address] 09/17/2024 8:40 AM EDT Office Visit Family Practice [address] [place] [address] [address] [facility] [place] [address] Leon Galvan, DO [address] [place] [address] 09/17/2024 10:30 AM EDT [facility] [address] [place] [address] [place] [address] [facility] [address] [place] [address] 09/17/2024 11:00 AM EDT [facility] [address] [place] [address] [place] [address] [facility] [address] [place] [address] [place] [address] 09/18/2024 8:00 AM EDT Office Visit Cardiology, [facility] [address] [place] [address] Alexandra Mackenzie CRNP [address] [place] [address] 09/22/2024 10:30 AM EDT [facility] [address] [place] [address] [place] [address] [facility] [address] [place] [address] [place] [address] 09/24/2024 10:30 AM EDT [facility] [address] [place] [address] [place] [address] [facility] [address] [place] [address] [place] [address] 09/24/2024 11:00 AM EDT [facility] [address] [place] [address] [place] [address] [facility] [address] [place] [address] [place] [address] 09/29/2024 9:00 AM EDT Home Visit [facility] [place] [address] Pito Rodriguez PA-C [address] [place] [address] 09/29/2024 10:30 AM EDT [facility] [address] [place] [address] [place] [address] [facility] [address] [place] [address] [place] [address] 10/01/2024 10:30 AM EDT [facility] [address] [place] [address] [place] [address] [facility] [address] [place] [address] [place] [address] 10/06/2024 10:30 AM EDT [facility] [address] [place] [address] [place] [phone] [facility] [address] [place] [address] [place] [address] 10/10/2024 3:30 PM EDT Imaging Radiology [facility] [address] [place] [phone] 10/17/2024 9:00 AM EDT Office Visit Urology, [place] [address] [place] [address] Johnathon Kent PA-C [address] [place] [address] 02/06/2025 9:30 AM EDT Office Visit Cardiology, [facility] [address] [place] [address] Poncho Robledo DO [address] [place] [address] Pending Results Name Type Priority Associated Diagnoses Date /Time COMPREHENSIVE METABOLIC PANEL Lab Routine BIJAL (acute kidney injury) ([facility]) 08/13/2024 9:14 AM EST CBC WITH WBC DIFFERENTIAL Lab Routine BIJAL (acute kidney injury) ([facility]) 08/13/2024 9:14 AM EST CBC Lab Routine BIJAL (acute kidney injury) ([facility]) 08/13/2024 9:14 AM EST DIFFERENTIAL, AUTOMATED Lab Routine BIJAL (acute kidney injury) ([facility]) 08/13/2024 9:14 AM EST Scheduled Orders Name Type Priority Associated Diagnoses Orde r Schedule COMPREHENSIVE METABOLIC PANEL Lab Routine BIJAL (acute kidney injury) (HCC) Expected: 08/13/2024 (Approximate), Expires: 08/13/2025 CBC WITH WBC DIFFERENTIAL Lab Routine BIJAL (acute kidney injury) ([facility]) Expected: 08/13/2024 (Approximate), Expires: 08/13/2025 POST VOID RESIDUAL BLADDER, CATHETER Procedures Routine Urinary retention Ordered: 08/13/2024 Health Maintenance Due Date Last Done Comments Cologuard 1995 Sigmoidoscopy 1995 Fecal Occult Blood Test 12/20/2008 12/21/2007 *ADVANCE DIRECTIVE NOT ON FILE 2019 DISCUSS TOBACCO CESSATION (REFER TO SMARTSET #3291) 06/18/2024 06/18/2023, 01/24/2017 Adult Wellness Visit 02/17/2025 02/18/2024, 10/31/2022, 08/17/2021 Depression Screening 02/17/2025 02/18/2024, 01/02/20 24 O2 ASSESSMENT COMPLETED IN PAST YEAR FOR COPD 07/08/2025 07/08/2024 GFR 08/01/2025 08/01/2024, 0 01/2025, 07/14/2024, Additional history exists Albumin/Creatinine Ratio [...] this encounter Medical Devices Implanted Type Area Surveyor Helper Device Identifier Shelf Expiration Date Model / Serial / Lot Lead Kit Trial [id number] 50cm - [id number] - [id number] Implanted:Qty: 1 on 05/08/2024 by Maged Monreal DO at OR [facility] Left: Back [employer] : PAIN MGMT 03/18/2026 [id number] / [id number] / Lead Kit Trial [id number] 50cm - [id number] - [id number] Implanted:Qty: 1 on 05/08/2024 by Maged Monreal DO at OR [facility] Right: Back [employer] : PAIN MGMT 03/18/2026 [id number] / [id number] / Suture Steel 6 B&S19 M654g - [id number] Implanted:Qty: 1 on 07/08/2024 by Jayden Galvan MD at [place] [facility] N/A: Sternum JNJ : [employer] 03/08/2029 [id number] / / [id number] Marker Coronary - [id number] Implanted:Qty: 1 on 07/08/2024 by Jayden Galvan MD at [place] [facility] N/A: Heart [employer] 05/08/2027 AM-SD / / [id number] Marker Coronary - [id number] Implanted:Qty: 1 on 07/08/2024 by Jayden Galvan MD at [place] [facility] N/A: Heart [employer] 06/07/2027 AM-SD / / [id number] documented as of this encounter Visit Diagnoses Diagnosis BIJAL (acute kidney injury) (HCC)- Primary Acute kidney failure, unspecified Physical deconditioning Debility, unspecified Urinary retention Retention of urine, unspecified Paroxysmal atrial fibrillation (HCC) Atrial fibrillation Cerebrovascular disease, arteriosclerotic, post-stroke Cerebral atherosclerosis Cognitive changes Other signs and symptoms involving cognition COPD, group D, by GOLD 2017 classification ([facility]) Coronary artery disease involving chicken ranch coronary artery of chicken ranch heart with unstable angina pectoris (HCC) Dyslipidemia, goal LDL below 70 Other and unspecified hyperlipidemia Gastroesophageal reflux disease without esophagitis Esophageal reflux Idiopathic chronic gout of right foot without tophus Heart failure, systolic, due to CAD (HCC) Unspecified systolic heart failure HTN, goal below 140/90 Unspecified essential hypertension Degeneration of intervertebral disc of lumbar region with discogenic back pain and lower extremity pain Pulmonary nodule Solitary pulmonary nodule Right renal mass Unspecified disorder of kidney and ureter S/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 Question Answer Comments Discussion of Advance Directives occurred with: Patient Care Teams Group Work Program Aide Relationship Specialty Start Date End Date Leon Galvan DO [address] [place] [address] PCP - General Internal Medicine 12/28/23 documented as of this encounter
--- OUTSIDE RECORDS SUMMARY | 2024-08-28 23:24 | External Medical Summary ---
Author Name Unknown Address Unknown Organization K01:[facility] [address] [facility] [address] Laboratory Report Ordering Provider Test Date Status LUC BYRNES 08/13/2024 09:14:24 Final Observation Date Value Abnormality Reference (Units ) Status BUN 08/13/2024 09:14:24 30 Above high normal 6-20 (mg/dL) Final Creatinine 08/13/2024 09:14:24 1.4 Above high normal 0.6-1.2 (mg/dL) Final Glomerular filtration rate/1.73 sq M.predicted [Volume Rate/Area] in Serum, Plasma or Blood by Creatinine-based formula (CKD-EPI) 08/13/2024 09:14:24 51 Below low normal >=60 (mL/min) Final eGFR is calculated based on the CKD-EPI 2020 equation. Sodium 08/13/2024 09:14:24 143 135-146 (m mol/L) Final Potassium 08/13/2024 09:14:24 4.0 3.5-5.1 (m mol/L) Final Cl 08/13/2024 09:14:24 104 98-107 (mm ol/L) Final CO2 08/13/2024 09:14:24 28 22-32 (mmo l/L) Final Anion gap 08/13/2024 09:14:24 11 7-15 (mmol /L) Final Glucose 08/13/2024 09:14:24 128 Above high normal 70 -120 (mg/dL) Final Albumin 08/13/2024 09:14:24 3.8 3.8-5.0 (g /dL) Final AST (Aspartate aminotransferase) 08/13/2024 09:14:24 49 10-50 (U/L) Fin al Alk Phos 08/13/2024 09:14:24 121 35-130 (U/ L) Final Bilirubin, Total 08/13/2024 09:14:24 0.3 <=1 .2 (mg/dL) Final Calcium 08/13/2024 09:14:24 8.8 8.4-10.2 ( mg/dL) Final Protein 08/13/2024 09:14:24 6.3 6.0-8.3 (g /dL) Final ALT (Alanine aminotransferase) 08/13/2024 09:14:24 71 Above high normal 10-50 (U/L) Final Performing Location [facility] [place] [address] [facility] [place] [address]
--- OUTSIDE RECORDS SUMMARY | 2024-08-28 23:24 | External Medical Summary | Summary of Care ---
Author Name Unknown Organization [facility] Address [address] [place] [address] Phone [phone] Care Team Providers Care Invoice Clerk Name Role Phone ZairamohitLeon DO Primary Care Provider [phone] Encounter Details Date Type Department Care Team (Late st Contact Info) Description 08/13/2024 8:20 AM EST Nurse Only Family Practice [address] [address] College, Nurse [facility] [address] [address] Allergies Active Allergy Reactions Criticality Noted Date [...] Coronary artery disease invo lving [place] coronary artery of [place] heart with unstable angina pectoris 07/03/2024 Vitamin [...] neuropathy 08/17/2023 09/17/2023 Atherosclerosis of [place] co ronary artery without angina pectoris 08/17/2023 [...] as of this encounter Progress Notes * Debbie George LPN - 08/13/2024 8:27 AM EST See office notes for med rec documented in this encounter Plan of Treatment Upcoming Encounters Date Type Department Care Team (Late st Contact Info) Description 08/14/2024 3:20 PM EST Home Visit Care Coordination and Integration [address] [facility] [place] [address] Radha Vaughn, Community Health Field Representative/Health Education [address] [place] [facility] [place] [address] 08/18/2024 10:30 AM EST Telemedicine [facility], Virtual [address] [place] [address] Advanced, Virtual [facility] [address] [place] [address] [place] [address] 08/18/2024 12:30 PM EST Telemedicine Cardiac Rehab [facility], Virtual [address] [place] [address] [place] [address] Advanced, [facility] [address] [place] [address] [place] [address] 08/20/2024 10:30 AM EST Telemedicine Cardiac Rehab Advanced, Virtual [address] [place] [address] [place] [address] Advanced, Virtual [facility] [address] [place] [address] [place] [address] 08/20/2024 10:45 AM EST Office Visit Cardiothoracic Surg [facility] [address] [place] [address] Jayden Galvan MD [address] [place] [address] 08/21/2024 4:00 PM EST [facility] [address] [facility] [place] [address] Jhoana Fried, RN 132 [facility] [place] [address] 08/25/2024 10:30 AM EST Telemedicine Cardiac Rehab Advanced, Virtual [address] [place] [address] [place] [address] Advanced, Virtual [facility] [address] [place] [address] [place] [address] 08/25/2024 11:00 AM EST Telemedicine Cardiac Rehab Advanced, Virtual [address] [place] [address] [place] [address] Advanced, Virtual [facility] [address] [place] [address] [place] [address] 08/27/2024 10:30 AM EST Telemedicine Cardiac Rehab Advanced, Virtual [address] [place] [address] Advanced, Virtual Cardiac Rehab [address] [place] [address] 09/01/2024 10:30 AM EST Telemedicine Cardiac Rehab Advanced, Virtual [address] [place] [address] [place] [address] Advanced, Virtual Card[facility] Rehab [address] [place] [address] 09/01/2024 1:00 PM EST Office Visit Family Practice [address] [place] [address] 293 [place] [address] Leon Galvan DO 293 [facility] [place] [address] 09/02/2024 11:40 AM EST Office Visit Pharmacy, [facility] 132 [facility] [place] [address] [facility] 132 [facility] [place] [address] 09/03/2024 10:30 AM EST Telemedicine Cardiac Rehab [facility], Virtual [address] [place] [address] [place] [address] Advanced, Virtual Card[facility] [address] [place] [address] [place] [address] 09/03/2024 12:30 PM EST Telemedicine Cardiac Rehab Advanced, Virtual [address] [place] [address] [place] [address] Advanced, Virtual Card[facility] Rehab [address] [place] [address] 09/08/2024 10:30 AM EST Telemedicine Cardiac Rehab Advanced, Virtual [address] [place] [address] [place] [address] Advanced, Virtual [facility] [address] [place] [address] [place] [address] 09/10/2024 10:30 AM EST Telemedicine Cardiac Rehab Advanced, Virtual [address] [place] [address] [place] [address] Advanced, Virtual Card[facility] [address] [place] [address] [place] [address] 09/10/2024 12:30 PM EST Telemedicine Cardiac Rehab Advanced, Virtual [address] [place] [address] [place] [address] Advanced, Virtual Card[facility] [address] [place] [address] [place] [address] 09/15/2024 10:30 AM EDT Telemedicine Cardiac Rehab Advanced, Virtual [address] [place] [address] [place] [address] Advanced, Virtual [facility] [address] [place] [address] [place] [address] 09/17/2024 8:40 AM EDT Office Visit Family Practice [address] [place] [address] 293 [place] [address] Leon Galvan, 293 [place] [address] 09/17/2024 10:30 AM EDT Telemedicine Cardiac Rehab [facility], Virtual [address] [place] [address] [place] [address] Advanced, Virtual Card[facility] [address] [place] [address] [place] [address] 09/17/2024 11:00 AM EDT Telemedicine Cardiac Rehab Advanced, Virtual [address] [place] [address] [place] [address] Advanced, Virtual Card[facility]hab [address] [place] [address] 09/18/2024 8:00 AM EDT Office Visit Cardiology, [facility] [address] [place] [address] Alexandra Mackenzie CRNP [address] [place] [address] 09/22/2024 10:30 AM EDT Telemedicine Cardiac Rehab [facility], Virtual [address] [place] [address] [place] [address] Advanced, Virtual [facility] [address] [place] [address] [place] [address] 09/24/2024 10:30 AM EDT Telemedicine Cardiac Rehab Advanced, Virtual [address] [place] [address] [place] [address] Advanced, Virtual [facility] [address] [place] [address] [place] [address] 09/24/2024 11:00 AM EDT Telemedicine Cardiac Rehab Advanced, Virtual [address] [place] [address] [place] [address] Advanced, Virtual Card[facility] Rehab [address] [place] [address] [place] [address] 09/29/2024 9:00 AM EDT Home Visit [facility], [facility] [address] [place] [address] Pito Rodriguez PA-C [address] [place] [address] 09/29/2024 10:30 AM EDT Telemedicine Cardiac Rehab Advanced, Virtual [address] [place] [address] [place] [address] Advanced, Virtual Card[facility]hab [address] [place] [address] [place] [address] 10/01/2024 10:30 AM EDT Telemedicine Cardiac Rehab Advanced, Virtual [address] [place] [address] [place] [address] Advanced, Virtual Card[facility] [address] [place] [address] [place] [address] 10/06/2024 10:30 AM EDT Telemedicine Cardiac Rehab Advanced, Virtual [address] [place] [address] [place] [address] Advanced, Virtual Cardiac Rehab [address] [place] [address] [place] [address] 10/10/2024 3:30 PM EDT Imaging Radiology [facility] [address] [place] [phone] 10/17/2024 9:00 AM EDT Office Visit Urology, [place] [address] [place] [address] Johnathon Kent PA-C [address] [place] [address] 02/06/2025 9:30 AM EDT Office Visit Cardiology, [facility] [address] [place] [address] Poncho Robledo, [address] [place] [address] Health Maintenance Due Date Last Done Comments [...] this encounter Medical Devices Implanted Type Area Fire Control Technician B Device Identifier Shelf Expiration Date Model / Serial / Lot Lead Kit Trial [id number] 50cm - [id number] - [id number] Implanted:Qty: 1 on 05/08/2024 by Maged Monreal DO at OR [facility] Left: Back [employer] : PAIN MGMT 03/18/2026 [id number] 50E0 / [id number] / Lead Kit Trial [id number] 50cm - [id number] - [id number] Implanted:Qty: 1 on 05/08/2024 by Maged Monreal DO at OR [facility] Right: Back [employer] : PAIN MGMT 03/18/2026 [id number] 50E0 / [id number] / Suture Steel 6 B&S19 M654g - [id number] Implanted:Qty: 1 on 07/08/2024 by Jayden Galvan MD at [place] [facility] N/A: Sternum JNJ : [employer] 03/08/2029 M654G / / 103BLE Marker Coronary - [id number] Implanted:Qty: 1 on 07/08/2024 by Jayden Galvan MD at [place] [facility] N/A: Heart [employer] 05/08/2027 [facility] / / [id number] Marker Coronary - [id number] Implanted:Qty: 1 on 07/08/2024 by Jayden Galvan MD at [place] [facility] N/A: Heart [employer] 06/07/2027 [facility] / / [id number] documented as of this encounter Advance Directives * Full Code (Latest Code Status on File) Date Activated Date Inactivated Comments 07/08/2024 12:14 PM 07/15/2024 5:39 PM This order reflects the patients wishes and were consensually agreed upon. Question Answer Comments Discussion of Advance Directives occurred with: Patient Care Teams Invoice Clerk Relationship Specialty Start Date End Date Leon Galvan DO [address] [place] [address] PCP - General Internal Medicine 12/28/23 documented as of this encounter
--- OUTSIDE RECORDS SUMMARY | 2024-08-28 23:24 | External Medical Summary | Summary of Care ---
Author Name Unknown Organization [facility] Address [address] [place] [address] Phone [phone] Care Team Providers Care Geneticist Name Role Phone Leon Galvan DO Primary Care Provider [phone] Reason for Visit * Reason Onset Date Comments [facility]: Maintenance 08/15/2024 Encounter Details Date Type Department Care Team (Late st Contact Info) Description 08/15/2024 Telephone Family Practice 65 [facility] [place] [address] [place] [address] Leon Galvan DO [address] [place] [address] [facility]: Maintenance Allergies [...] 4 07/08/2024 Coronary artery disease invo lving [place] coronary artery of [place] heart with unstable angina pectoris 07/03/2024 Vitamin [...] h autonomic neuropathy 08/17/2023 09/17/2023 Atherosclerosis of [place] co ronary artery without angina pectoris 08/17/2023 [...] this TE? TY * Telephone Encounter - Loen Galvan DO - 08/15/2024 11:25 AM EST [...] AM EST Telemedicine Cardiac Rehab Advanced, Virtual [address] [place] [address] [place] [address] Advanced, Virtual Cardiac Rehab [address] [place] [address] [place] [address] 08/20/2024 10:45 AM EST Office Visit Cardiothoracic Surg [facility] [address] [place] [address] Jayden Galvan MD [address] [place] [address] 08/21/2024 4:00 PM EST [facility] [place] [address] Jhoana Fried, RN [address] [place] [address] 08/25/2024 10:30 AM EST Telemedicine Cardiac Rehab Advanced, Virtual [address] [place] [address] [place] [address] Advanced, Virtual Cardiac Rehab [address] [place] [address] [place] [address] 08/25/2024 11:00 AM EST Telemedicine Cardiac Rehab Advanced, Virtual [address] [place] [address] [place] [address] Advanced, Virtual Cardiac Rehab [address] [place] [address] [place] [address] 08/27/2024 10:30 AM EST Telemedicine Cardiac Rehab Advanced, Virtual [address] [place] [address] [place] [address] Advanced, Virtual Cardiac Rehab [address] [place] [address] [place] [address] 09/01/2024 10:30 AM EST Telemedicine Cardiac Rehab Advanced, Virtual [address] [place] [address] [place] [address] Advanced, Virtual Cardiac Rehab [address] [place] [address] [place] [address] 09/01/2024 1:00 PM EST Office Visit Family Practice [address] [place] [address] 293 [facility] [place] [address] Leon Galvan DO 293 [facility] [place] [address] 09/02/2024 11:40 AM EST Office Visit Pharmacy, [facility] [address] [facility] 132 [facility] [place] [address] 09/03/2024 10:30 AM EST Telemedicine Cardiac Rehab Advanced, Virtual [address] [place] [address] [place] [address] Advanced, Virtual Cardiac Rehab [address] [place] [address] [place] [address] 09/03/2024 12:30 PM EST Telemedicine Cardiac Rehab Advanced, Virtual [address] [place] [address] [place] [address] Advanced, Virtual Cardiac Rehab [address] [place] [address] [place] [address] 09/08/2024 10:30 AM EST Telemedicine Cardiac Rehab Advanced, Virtual 5 [facility] [place] [address] Advanced, Virtual Cardiac Rehab [address] [place] [address] 09/10/2024 10:30 AM EST Telemedicine Cardiac Rehab Advanced, Virtual [address] [place] [address] [place] [address] Advanced, Virtual Cardiac Rehab [address] [place] [address] 09/10/2024 12:30 PM EST Telemedicine Cardiac Rehab Advanced, Virtual [address] [place] [address] [place] [address] Advanced, Virtual Cardiac Rehab [address] [place] [address] 09/15/2024 10:30 AM EDT Telemedicine Cardiac Rehab Advanced, Virtual [address] [place] [address] [place] [address] Advanced, Virtual Cardiac Rehab [address] [place] [address] 09/17/2024 8:40 AM EDT Office Visit Family Practice [address] [place] [address] 293 [facility] [place] [address] Leon Galvan, DO 293 [facility] [place] [address] 09/17/2024 10:30 AM EDT Telemedicine Cardiac Rehab Advanced, Virtual [address] [place] [address] [place] [address] Advanced, Virtual Cardiac Rehab [address] [place] [address] 09/17/2024 11:00 AM EDT Telemedicine Cardiac Rehab Advanced, Virtual [address] [place] [address] [place] [address] Advanced, Virtual Cardiac Rehab [address] [place] [address] [place] [address] 09/18/2024 8:00 AM EDT Office Visit Cardiology, [facility] [address] [place] [address] Alexandra Mackenzie CRNP [address] [place] [address] 09/22/2024 10:30 AM EDT Telemedicine Cardiac Rehab Advanced, Virtual [address] [place] [address] [place] [address] Advanced, Virtual Cardiac Rehab [address] [place] [address] [place] [address] 09/24/2024 10:30 AM EDT Telemedicine Cardiac Rehab Advanced, Virtual [address] [place] [address] [place] [address] Advanced, Virtual Cardiac Rehab [address] [place] [address] [place] [address] 09/24/2024 11:00 AM EDT Telemedicine Cardiac Rehab Advanced, Virtual [address] [place] [address] [place] [address] Advanced, Virtual Cardiac Rehab [address] [place] [address] [place] [address] 09/29/2024 9:00 AM EDT Home Visit [facility] [place] [address] Pito Rodriguez PA-C [address] [place] [address] 09/29/2024 10:30 AM EDT Telemedicine Cardiac Rehab Advanced, Virtual [address] [place] [address] [place] [address] Advanced, Virtual Cardiac Rehab [address] [place] [address] [place] [address] 10/01/2024 10:30 AM EDT Telemedicine Cardiac Rehab Advanced, Virtual 675 [facility] [place] [address] Advanced, Virtual Cardiac Rehab [address] [place] [address] 10/06/2024 10:30 AM EDT Telemedicine Cardiac Rehab Advanced, Virtual 5 [facility] [place] [address] Advanced, Virtual Cardiac Rehab [address] [place] [address] [place] [address] 10/10/2024 3:30 PM EDT Imaging Radiology [facility] [address] [place] [phone] 10/17/2024 9:00 AM EDT Office Visit Urology, [place] [address] [place] [address] Johnathon Kent PA-C [address] [place] [address] 02/06/2025 9:30 AM EDT Office Visit Cardiology, [facility] [address] [place] [address] Poncho Robledo DO [address] [place] [address] Health Maintenance Due Date Last Done Comments [...] encounter Medical Devices Implanted Type Area Hot Dog Vender Device Identifier Shelf Expiration Date Model / Serial / Lot Lead Kit Trial [id number] 50cm - [id number] - [id number] Implanted:Qty: 1 on 05/08/2024 by Maged Monreal, DO at OR [facility] Left: Back Brand[employer] : PAIN MGMT 03/18/2026 [id number] 50E0 / [id number] / Lead Kit Trial [id number] 50cm - [id number] - [id number] Implanted:Qty: 1 on 05/08/2024 by Maged Monreal DO at OR [facility] Right: Back [employer] : PAIN MGMT 03/18/2026 [id number] 50E0 / [id number] / Suture Steel 6 B&S19 M654g - [id number] Implanted:Qty: 1 on 07/08/2024 by Jayden Galvan MD at [place] [facility] N/A: Sternum JNJ : [employer] 03/08/2029 M654G / / 103BLE Marker Coronary - [id number] Implanted:Qty: 1 on 07/08/2024 by Jayden Galvan MD at OR [facility] N/A: Heart [employer] 05/08/2027 [facility] / / [id number] Marker Coronary - [id number] Implanted:Qty: 1 on 07/08/2024 by Jayden Galvan MD at OR [facility] N/A: Heart [employer] 06/07/2027 [facility] / / [id number] documented as of this encounter Advance Directives * Full Code (Latest Code Status on File) Date Activated Date Inactivated Comments 07/08/2024 12:14 PM 07/15/2024 5:39 PM This order reflects the patients wishes and were consensually agreed upon. Question Answer Comments Discussion of Advance Directives occurred with: Patient Care Teams Geneticist Relationship Specialty Start Date End Date Leon Galvan DO [address] [facility] [place] [place] [address] PCP - General Internal Medicine 12/28/23 documented as of this encounter
--- OUTSIDE RECORDS SUMMARY | 2024-08-28 23:24 | External Medical Summary ---
Author Name Unknown Address Unknown Organization K01:[facility] - [facility] [address] [facility] [address] [facility] [address] Laboratory Report Ordering Provider Test Date Status LUC BYRNES 08/13/2024 09:14:24 Final Observation Date Value Abnormality Reference (Units ) Status WBC, Total 08/13/2024 09:14:24 6.89 4.00-10.80 (K/uL) Final RBC 08/13/2024 09:14:24 3.86 4.50-5.25 (M/uL) Final Hemoglobin 08/13/2024 09:14:24 12.9 Below low normal 14.0-16.8 (g/dL) Final HCT 08/13/2024 09:14:24 38.1 Below low normal 40.0-48.4 (%) Final MCV 08/13/2024 09:14:24 98.7 82.0-99.5 (fL) Final MCH 08/13/2024 09:14:24 33.4 27.0-34.0 (pg) Final MCHC 08/13/2024 09:14:24 33.9 32.0-36.0 (g/dL) Final RDW 08/13/2024 09:14:24 14.2 11.5-15.5 (%) Final Platelets 08/13/2024 09:14:24 230 140-400 (K/uL) Final MPV 08/13/2024 09:14:24 12.2 6.6-11.1 (fL) Final Nucleated erythrocytes/100 leukocytes [Ratio] in Blood by Automated count 08/13/2024 09:14:24 0 <=0 (/100 WBCs) Final Performing Location [facility] - [address] [facility] [address]
--- OUTSIDE RECORDS SUMMARY | 2024-08-28 23:25 | External Medical Summary | Summary of Care ---
Author Name Unknown Organization [facility] Address [address] [place] [address] Phone [phone] Care Team Providers Care Director Of Channel Marketing Name Role Phone Leon Galvan DO Primary Care Provider [phone] Reason for Visit * Reason Comments Dosage Adjustment In Person (Anticoag Cl inic) Smoking Cessation Encounter Details Date Type Department Care Team (Late st Contact Info) Description 08/05/2024 1:50 PM EST Office Visit Family Practice [facility] [address] [place] [id number] College, Pharmacist [address] [phone] Tobacco use disorder* Allergies Active Allergy Reactions Criticality Noted Date Comments Codeine Other (Please comment) High 09/08/2013 Severe Skin peeling documented as of this encounter (statuses as of 08/07/2024) Medications oxygen GASIndications: Chronic coronary artery disease,COPD, [...] by mouth at bedtime. 08/01/19 25 Active Nicotine Polacrilex 4 MG Mouth/Throat Lozenge (Nicorette) Administer 1 Lozenge to inside of cheek every 2 hours as needed. Max 20 per day 08/07/19 25 Active documented as of this encounter (statuses as of 08/07/2024) Active Problems Problem Noted Date Diagnosed Date Atrial fibrillation 08/01/2024 Impaired mobility and ADLs 07/17/2024 S/P CABG x 4 07/08/2024 Coronary artery disease invo lving [place] coronary artery of [place] heart with unstable angina pectoris 07/03/2024 Vitamin [...] as of this encounter (statuses as of 08/07/2024) Resolved Problems Problem Noted Date Diagnosed Date Resolved Date Type 2 diabetes mellitus wit h autonomic neuropathy 08/17/2023 09/17/2023 Atherosclerosis of [place] co ronary artery without angina pectoris 08/17/2023 [...] as of this encounter (statuses as of 08/07/2024) Immunizations Name Administration Dates Next Due COVID-19 [...] No 08/05/2024 Does the household have a [place] general [...] Progress Notes * Franky Saldana, Patsy Mcgee, [facility] - 08/05/2024 1:48 PM EST Medication Therapy Disease Management - Smoking Cessation HPI: Social History Tobacco Use Smoking Status Every Day Current packs/day: 0.50 Average packs/day: 0.5 packs/day for 59.1 years (29.5 ttl pk-yrs) Types: Cigarettes Start date: 1965 Passive exposure: Current Smokeless Tobacco Never Tobacco Comments 2 cigarettes/day How many cigarettes do you smoke in one day? 4-5 How soon do you smoke your first cigarette upon wakening? immediately How long have you been smoking? Since he was 16 yo - nearly 60 years Location:In home - doesn't smoke in bedroom as he reports he drops it and is worried about startinga fire. Exposed to second hand smoke through: significant other who smokes > 1 ppd What are your thoughts on quitting smoking? Really wants to quit - wants to get better How ready are you to quit smoking? On a scale of 0-10, 9 What are your motivations to quit smoking? reducing risk of heart disease and to "get better" afterheart surgery What are your fears about quitting smoking? othernot being able to quit What are your triggers? upon wakening Have you picked a quit date? If so when? NO Have you ever tried quitting in the past? If so, did you use any medications to help you? How long did you quit for? Why did you begin to smoke again? - Yes - tried to quit in the past multiple timesbut has never been successful. Reports that patches made him smoke more. Comorbidities which discourage use of: Bupropion: none - patient is already on this and has had no effect per him Chantix: other cost - not covered Nicotine replacement therapy: reports patches made him smoke more, has dentures so can't use gum Objective: BP Readings from Last 3 Encounters: 08/05/24 100/66 08/01/24 102/70 07/30/24 112/62 Pulse Readings from Last 3 Encounters: 08/05/24 104 08/01/24 67 07/30/24 80 Wt Readings from Last 3 Encounters: 08/05/24 148 lb 12.8 oz (67.5 kg) 08/01/24 147 lb 4.8 oz (66.8 kg) 07/15/24 157 lb 13.6 oz (71.6 kg) Assessment & Plan: The patient was instructed as to the detrimental effects of Tobacco & the serious impact that it has upon their health, especially their current condition, Coronary Artery Disease. Discussed that smoking affects not only the patient's health but the health of their family members, children and others exposed to second hand tobacco smoke. Discussed the advantages of tobacco cessation: slow progression of their underlying disease, improve lung function and reduce risk for development of cancer and other tobacco related illnesses. Discussed the treatment options with the patient that would include: -Behavioral therapy- patient needs to find new activities for when he would usually smoke -Use of nicotine replacement products - will use lozenges to replace cigarettes. Recommended 4mg due to how quickly he starts smoking. Up to 20 lozenges per day. -Prescription medications- continue bupropion. Discussed vaccines recommended: completed Referral to [place] Department of Health/[place] [employer] Free Quitline: . Tobacco Use Disorder Start tapering cigarettes using lozenges to replace cigarettes and curb cravings up to 20 lozenges per day. First cigarette of the day will be hardest as patient starts immediately and has with coffee which won't be possible with lozenge. Recommended keeping lozenge beside bed and having immediately. Week 1 3 cigarettes 1 (or more) lozenges Week 2 2 cigarettes 2 (or more) lozenges Week 3 1 cigarette 3 (or more) lozenges Week 4 0 cigarettes 4 (or more) lozenges Pt was educated on smoking cessation and/or tobacco cessation for: 12 minutes Tobacco Cessation Counseling Attempt: first Start Date: 08/05/24 Today's Visit #: 1 (max 4) Follow up: in 2 weeks. I spent a total of 10-19 minutes (exact time 16 mins) on the date of service in preparation, delivery, and documentation of the care provided to Henri Vigil excluding any time spent in the performance of separately billed services or time spent by another provider/QHP. Patsy Brown [facility] Clinical Pharmacist Medication Therapy Disease Management 08/05/2024, 2:42 PM documented in this encounter Plan of Treatment Upcoming Encounters Date Type Department Care Team (Late st Contact Info) Description 08/08/2024 10:00 AM EST Home Visit [facility] [address] [place] [address] Jhoana Fried RN [address] [facility] [place] [address] 08/11/2024 10:30 AM EST [facility] [address] [place] [address] [place] [id number] [facility] [address] [place] [address] [place] [id number] 08/11/2024 11:00 AM EST [facility] [address] [place] [address] [place] [address] [facility] [address] [place] [address] [place] [address] 08/13/2024 10:30 AM EST [facility] [address] [place] [address] [place] [address] [facility] [address] [place] [address] [place] [id number] 08/18/2024 10:30 AM EST [facility] [address] [place] [address] [place] [address] [facility] [address] [place] [address] [place] [address] 08/18/2024 12:30 PM EST [facility] [address] [place] [address] [place] [address] [facility] [address] [place] [address] [place] [address] 08/20/2024 10:30 AM EST [facility] [address] [place] [address] [place] [address] [facility] [address] [place] [address] [place] [id number] 08/20/2024 10:45 AM EST Office Visit Cardiothoracic Surg [facility] [address] [place] [address] Jayden Galvan MD [address] [place] [address] 08/25/2024 10:30 AM EST [facility] [address] [place] [address] [place] [address] [facility] [address] [place] [address] [place] [id number] 08/25/2024 11:00 AM EST [facility] [address] [place] [address] [place] [address] [facility] [address] [place] [address] [place] [id number] 08/27/2024 10:30 AM EST [facility] [address] [place] [address] [place] [address] [facility] [address] [place] [address] [place] [address] 09/01/2024 10:30 AM EST [facility] [address] [place] [address] [place] [id number] [facility] [address] [place] [address] [place] [address] 09/01/2024 1:00 PM EST Office Visit Family Practice [address] [place] [address] [address] [place] [address] Leon Galvan DO [address] [place] [address] 09/02/2024 11:40 AM EST Office Visit Pharmacy, [facility] [address] [facility] [place] [address] [facility] [address] [place] [address] 09/03/2024 10:30 AM EST [facility] [address] [place] [address] [place] [address] [facility] [address] [place] [address] [place] [address] 09/03/2024 12:30 PM EST [facility] [address] [place] [address] [place] [address] [facility] [address] [place] [address] [place] [address] 09/08/2024 10:30 AM EST [facility] [address] [place] [address] [place] [address] [facility] [address] [place] [address] [place] [address] 09/10/2024 10:30 AM EST [facility] [address] [place] [address] [place] [address] [facility] [address] [place] [address] 09/10/2024 12:30 PM EST [facility] [address] [place] [address] [place] [address] [facility] [address] [place] [address] 09/15/2024 10:30 AM EDT [facility] [address] [place] [address] [place] [address] [facility] [address] [place] [address] [place] [address] 09/17/2024 8:40 AM EDT Office Visit Family Practice [address] [place] [address] [address] [place] [address] Leon Galvan, [address] [place] [place] [address] 09/17/2024 10:30 AM EDT [facility] [address] [place] [address] [place] [address] [facility] [address] [place] [address] [place] [id number] 09/17/2024 11:00 AM EDT [facility] [address] [place] [address] [place] [address] [facility] [address] [place] [address] 09/18/2024 8:00 AM EDT Office Visit Cardiology, [facility] [address] [place] [address] Alexandra Mackenzie, AIR HOSE COUPLER [address] [place] [address] 09/22/2024 10:30 AM EDT [facility] [address] [place] [address] [place] [address] [facility] [address] [place] [address] [place] [address] 09/24/2024 10:30 AM EDT [facility] [address] [place] [address] [place] [address] [facility] [address] [place] [address] [place] [address] 09/24/2024 11:00 AM EDT [facility] [address] [place] [address] [place] [address] [facility] [address] [place] [address] [place] [address] 09/29/2024 9:00 AM EDT [facility] Visit [facility] [place] [address] Pito Rodriguez PA-C [address] [place] [address] 09/29/2024 10:30 AM EDT [facility] [address] [place] [address] [place] [address] [facility] [address] [place] [address] [place] [address] 10/01/2024 10:30 AM EDT [facility] [address] [place] [address] [place] [address] [facility] [address] [place] [address] [place] [address] 10/06/2024 10:30 AM EDT [facility] [address] [place] [address] [place] [address] [facility] [address] [place] [address] [place] [address] 10/10/2024 3:30 PM EDT Imaging Radiology [facility] [address] [place] [id number] 10/17/2024 9:00 AM EDT Office Visit Urology, [place] [address] [place] [address] Johnathon Kent PA-C [address] [place] [address] 02/06/2025 9:30 AM EDT Office Visit Cardiology, [facility] [address] [place] [address] Poncho Robledo, [address] [place] [address] Health Maintenance Due Date Last Done Comments [...] this encounter Medical Devices Implanted Type Area Helicopter Crew Chief Device Identifier Shelf Expiration Date Model / Serial / Lot Lead Kit Trial [id number] 50cm - [id number] - [id number] Implanted:Qty: 1 on 05/08/2024 by Maged Monreal DO at OR [facility] Left: Back [employer] : PAIN MGMT 03/18/2026 [id number] / [id number] / Lead Kit Trial [id number] 50cm - [id number] - [id number] Implanted:Qty: 1 on 05/08/2024 by Maged Monreal DO at OR [facility] Right: Back [employer] : PAIN MGMT 03/18/2026 [id number] 50E0 / [id number] / Suture Steel 6 B&S19 M654g - [id number] Implanted:Qty: 1 on 07/08/2024 by Jayden Galvan [place] [facility] [place]: Sternum JN[place] : [employer] 03/08/2029 M654G / / [id number] Marker Coronary - [id number] Implanted:Qty: 1 on 07/08/2024 by Jayden Galvan MD [place] [facility] [place]: Heart [employer] 05/08/2027 AM-SD / / [id number] Marker Coronary - [id number] Implanted:Qty: 1 on 07/08/2024 by Jayden Galvan MD [place] [facility] [place]A: Heart [employer] 06/07/2027 AM-SD / / [id number] documented as of this encounter Visit Diagnoses Diagnosis Tobacco use disorder- Primary documented in this encounter Advance Directives * Full Code (Latest Code Status on File) Date Activated Date Inactivated Comments 07/08/2024 12:14 PM 07/15/2024 5:39 PM This order reflects the patients wishes and were consensually agreed upon. Question Answer Comments Discussion of Advance Directives occurred with: Patient Care Teams Director Of Channel Marketing Relationship Specialty Start Date End Date Leon Galvan DO [address] [place] [address] PCP - General Internal Medicine 12/28/23 documented as of this encounter
--- OUTSIDE RECORDS SUMMARY | 2024-08-28 23:25 | External Medical Summary | Summary of Care ---
Author Name Unknown Organization [facility] Address [address] [place] [address] Phone [phone] Care Team Providers Care Asphalt Dauber Name Role Phone Leon Galvan DO Primary Care Provider [phone] Reason for Visit * Reason Onset Date Comments [facility]: Maintenance 08/10/2024 Encounter Details Date Type Department Care Team (Late st Contact Info) Description 08/10/2024 Telephone [facility], [facility] [address] [place] [address] Jhoana Fried, RN [address] [facility] [place] [address] [facility]: Maintenance Allergies Active Allergy Reactions Criticality Noted Date Comments Codeine Other (Please comment) High 09/08/2013 Severe Skin peeling documented as of this encounter (statuses as of 08/10/2024) Medications oxygen GASIndications: Chronic coronary artery disease,COPD, [...] juice.. 510 g 1 08/05/19 25 Active Bisacodyl 10 MG Rectal Suppository (Dulcolax)Indic ations:Slow transit constipation Administer 1 Suppository into the rectum daily for 5 days. Do not use for more than 1 week. 5 Suppository 08/05/19 25 2024 Active Nicotine Polacrilex 4 MG Mouth/Throat Lozenge (Nicorette) Administer 1 Lozenge to inside of cheek every 2 hours as needed. Max 20 per day 08/07/19 25 Active Potassium Chloride Joyce ER 10 MEQ Oral Tablet Extended ReleaseIndicati ons:Heart failure, systolic, due to CAD (HCC) Take 2 Tablets by mouth in the morning. 200 Tablet 3 08/08/19 25 Active Carvedilol 3.125 MG Oral Tablet (Coreg)Indicati ons:HTN, goal below 140/90,Paroxysm al atrial fibrillation (HCC) Take 1 Tablet by mouth 2 times a day with morning and evening meals. 200 Tablet 3 08/08/19 25 Active Amiodarone HCl 200 MG Oral Tablet (Cordarone)Cynthia cations:Paroxys mal atrial fibrillation (HCC) Take 1 Tablet by mouth daily with breakfast. 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/08/2024 Coronary artery disease invo lving upper [place] coronary artery of upper [place] heart with unstable angina pectoris 07/03/2024 Vitamin [...] as of this encounter (statuses as of 08/10/2024) Resolved Problems Problem Noted Date Diagnosed Date Resolved Date Type 2 diabetes mellitus wit h autonomic neuropathy 08/17/2023 09/17/2023 Atherosclerosis of upper [place] co ronary artery without angina pectoris 08/17/2023 [...] as of this encounter (statuses as of 08/10/2024) Immunizations Name Administration Dates Next Due COVID-19 [...] encounter Miscellaneous Notes * Telephone Encounter - Jhoana Fried RN - 08/10/2024 12:46 PM EST Telephone call to pt for wellness check Had MEJIA #1 visit on Sunday Pt reports he is feeling well Pill box was filled Sunday and he reports he is taking them consistently Was given rowell leg bag at home visit also and teaching was done to change for an overnight bag Pt reports he has not used it yet - asked if he was having difficulty changing it and he states he hasn't tried yet States his rowell catheter is draining well and urine is yellow to dark yellow He denies any falls since last week Denies dizziness Denies concerns at this time Aware of PCP appt coming up and home visit with [facility] this week Advised to call [facility] with any concerns documented in this encounter Plan of Treatment Upcoming Encounters Date Type Department Care Team (Late st Contact Info) Description 08/11/2024 10:30 AM EST [facility]icine [facility], Virtual [address] [place] [address] [place] [address] Advanced, [facility] [address] [place] [address] [place] [address] 08/11/2024 11:00 AM EST Telemedicine [facility], De Correspondent [address] [place] [address] [place] [address] Advanced, [facility] [address] [place] [address] [place] [address] 08/12/2024 10:00 AM EST Nurse Only Family Practice [address] [place] [id number] College, Nurse Fam Prac [address] [place] [address] 08/12/2024 10:20 AM EST Office Visit Family Practice 65 [facility] 293 [facility] [place] [id number] Leon Galvan, DO 293 [place] [address] 08/13/2024 10:30 AM EST Telemedicine [facility], Virtual [address] [place] [address] [place] [address] Advanced, [facility] [address] [place] [address] [place] [address] 08/14/2024 3:20 PM EST Home Visit [facility] [address] [place] [address] Radha Vaughn, [facility] [employer] Operator [address] [place] [address] 08/18/2024 10:30 AM EST Telemedicine [facility], Virtual [address] [place] [address] [place] [address] Advanced, [facility] [address] [place] [address] [place] [address] 08/18/2024 12:30 PM EST Telemedicine Card[facility], Virtual [address] [place] [address] [place] [address] Advanced, [facility] [address] [place] [address] [place] [address] 08/20/2024 10:30 AM EST Telemedicine Card[facility], Virtual [address] [place] [address] [place] [address] Advanced, Virtual [facility] [address] [place] [address] [place] [address] 08/20/2024 10:45 AM EST Office Visit Cardiothoracic Surg [facility] [address] [place] [address] Jayden Galvan MD [address] [place] [address] 08/21/2024 4:00 PM EST Home Visit [facility], [facility] [address] [place] [address] Jhoana Fried, RN 132 [place] [address] 08/25/2024 10:30 AM EST Telemedicine [facility], Virtual [address] [place] [address] [place] [address] Advanced, [facility] [address] [place] [address] [place] [address] 08/25/2024 11:00 AM EST Telemedicine [facility], Virtual [address] [place] [address] [place] [address] Advanced, Virtual [facility] [address] [place] [address] [place] [address] 08/27/2024 10:30 AM EST Telemedicine [facility], Virtual [address] [place] [address] [place] [address] Advanced, [facility] [address] [place] [address] [place] [address] 09/01/2024 10:30 AM EST Telemedicine [facility], Virtual [address] [place] [address] [place] [address] Advanced, [facility] [address] [place] [address] [place] [address] 09/01/2024 1:00 PM EST Office Visit Family Practice [address] [place] [address] 293 [facility] [place] [address] Leon Galvan, 293 [place] [address] 09/02/2024 11:40 AM EST Office Visit Pharmacy, [facility] [address] [facility] [place] [address] [facility] [address] [facility] [place] [address] 09/03/2024 10:30 AM EST Telemedicine [facility], Virtual [address] [place] [address] [place] [address] Advanced, Virtual [facility] [address] [place] [address] [place] [address] 09/03/2024 12:30 PM EST Telemedicine Cardiac Rehab Advanced, Virtual [facility] [place] [address] Advanced, Virtual Card[facility] Rehab [address] [place] [address] 09/08/2024 10:30 AM EST Telemedicine Card[facility], Virtual [address] [place] [address] [place] [address] Advanced, Virtual [facility] [address] [place] [address] 09/10/2024 10:30 AM EST Telemedicine [facility], Virtual [address] [place] [address] [place] [address] Advanced, Virtual [facility] [address] [place] [address] 09/10/2024 12:30 PM EST Telemedicine [facility], Virtual [address] [place] [address] [place] [address] Advanced, Virtual [facility] [address] [place] [address] 09/15/2024 10:30 AM EDT Telemedicine Cardiac Re[facility], Virtual [address] [place] [address] [place] [address] Advanced, [facility] [address] [place] [address] [place] [address] 09/17/2024 8:40 AM EDT Office Visit Family Practice [address] [place] [address] 293 [facility] [place] [address] Leon Galvan, 293 [place] [address] 09/17/2024 10:30 AM EDT Telemedicine Card[facility], Virtual [address] [place] [address] [place] [address] Advanced, Virtual [facility] [address] [place] [address] 09/17/2024 11:00 AM EDT Telemedicine Cardiac Rehab [facility], Virtual [address] [place] [address] [place] [address] Advanced, [facility] [address] [place] [address] [place] [address] 09/18/2024 8:00 AM EDT Office Visit Cardiology, [facility] [address] [place] [address] Alexandra Mackenzie CRNP [address] [place] [address] 09/22/2024 10:30 AM EDT Telemedicine Cardiac Re[facility], Virtual [address] [place] [address] [place] [address] Advanced, [facility] [address] [place] [address] [place] [address] 09/24/2024 10:30 AM EDT Telemedicine Cardiac Re[facility], Virtual [address] [place] [address] [place] [address] Advanced, Virtual [facility] [address] [place] [address] [place] [address] 09/24/2024 11:00 AM EDT Telemedicine Card[facility], Virtual [address] [place] [address] [place] [address] Advanced, [facility] [address] [place] [address] [place] [address] 09/29/2024 9:00 AM EDT Home Visit [facility], [facility] [address] [place] [address] Pito Rodriguez PA-C [address] [place] [address] 09/29/2024 10:30 AM EDT Telemedicine Cardiac Rehab [facility], Virtual 5 [facility] [place] [address] Advanced, Virtual Card[facility] Rehab [address] [place] [address] 10/01/2024 10:30 AM EDT Telemedicine Card[facility], Virtual [address] [place] [address] [place] [address] Advanced, Virtual [facility] [address] [place] [address] 10/06/2024 10:30 AM EDT Telemedicine [facility], Virtual [address] [place] [address] [place] [address] Advanced, Virtual [facility] [address] [place] [address] 10/10/2024 3:30 PM EDT Imaging Radiology [facility] [address] [place] [phone] 10/17/2024 9:00 AM EDT Office Visit Urology, [place] [address] [place] [address] Johnathon Kent PA-Monica [address] [place] [address] 02/06/2025 9:30 AM EDT Office Visit Cardiology, [facility] [address] [place] [address] Poncho Robledo, [address] [place] [address] Health Maintenance Due Date Last Done Comments [...] this encounter Medical Devices Implanted Type Area Farmworker Bulbs Device Identifier Shelf Expiration Date Model / Serial / Lot Lead Kit Trial [id number] 50cm - [id number] - [id number] Implanted:Qty: 1 on 05/08/2024 by Maged Monreal DO at OR [facility] Left: Back [employer] : PAIN MGMT 03/18/2026 [id number] 50E0 / [id number] / Lead Kit Trial [id number] 50cm - [id number] - [id number] Implanted:Qty: 1 on 05/08/2024 by Maged Monreal DO at OR [facility] Right: Back [employer] : PAIN MGMT 03/18/2026 [id number] 50E0 / [id number] / Suture Steel 6 B&S19 M654g - [id number] Implanted:Qty: 1 on 07/08/2024 by Jayden Galvan MD at [place] [facility] N/A: Sternum JNJ : [employer] 03/08/2029 M654G / / 103BLE Marker Coronary - [id number] Implanted:Qty: 1 on 07/08/2024 by Jayden Galvan MD at OR [facility] N/A: Heart [employer] 05/08/2027 AM-SD / / [id number] Marker Coronary - [id number] Implanted:Qty: 1 on 07/08/2024 by Jayden Galvan MD at OR [facility] N/A: Heart [employer] 06/07/2027 AM-SD / / [id number] documented as of this encounter Advance Directives * Full Code (Latest Code Status on File) Date Activated Date Inactivated Comments 07/08/2024 12:14 PM 07/15/2024 5:39 PM This order reflects the patients wishes and were consensually agreed upon. Question Answer Comments Discussion of Advance Directives occurred with: Patient Care Teams Asphalt Dauber Relationship Specialty Start Date End Date Leon Galvan DO [address] [place] [address] PCP - General Internal Medicine 12/28/23 documented as of this encounter
--- OUTSIDE RECORDS SUMMARY | 2024-08-28 23:25 | External Medical Summary | Summary of Care ---
Author Name Unknown Organization [facility] Address [address] [place] [address] Phone [phone] Care Team Providers Care C Unix Developer Name Role Phone Leon Galvan DO Primary Care Provider [phone] Reason for Visit * Reason Onset Date Comments [facility]: Maintenance 08/07/2024 Encounter Details Date Type Department Care Team (Late st Contact Info) Description 08/07/2024 Telephone [facility], [facility] 132 [facility] [place] [address] Lulu Rivers, CLASSER [address] [place] [address] [facility]: Maintenance Allergies Active Allergy [...] Tablet by mouth at bedtime. 08/01/19 Active Polyethylene Glycol 3350 17 GM/SCOOP Oral Powder (MiraLax)Indica tions:Slow transit constipation Take 17 g by mouth in the morning. Dissolve one heaping tablespoon in 8 ounces of water or juice.. 510 g 1 08/05/19 Active Bisacodyl 10 MG Rectal Suppository (Dulcolax)Indic ations:Slow transit constipation Administer 1 Suppository into the rectum daily for 5 days. Do not use for more than 1 week. 5 Suppository 08/05/19 25 2024 Active Nicotine Polacrilex 4 MG Mouth/Throat Lozenge (Nicorette) Administer 1 Lozenge to inside of cheek every 2 hours as needed. Max 20 per day 08/07/19 Active documented as of this encounter (statuses as of 08/07/2024) Active Problems Problem Noted Date Diagnosed Date Atrial fibrillation 08/01/2024 Impaired mobility and ADLs 07/17/2024 S/P CABG x 4 07/08/2024 Coronary artery disease invo lving [place] coronary artery of [place] heart with unstable angina pectoris 07/03/2024 Vitamin [...] h autonomic neuropathy 08/17/2023 09/17/2023 Atherosclerosis of [place] co ronary artery without angina pectoris 08/17/2023 [...] No 08/05/2024 [facility] [...] Telephone Encounter - Lulu Rivers LPN - 08/07/2024 3:03 PM EST Patient discharging from [facility] today to home TT to [facility] gum puller to schedule MEJIA tomorrow with Jhoana Fried documented in this encounter Plan of Treatment Upcoming Encounters Date Type Department Care Team (Late st Contact Info) Description 08/08/2024 10:00 AM EST Home Visit [facility] at [address] [place] [address] Jhoana Fried RN 132 [facility] [place] [address] 08/11/2024 10:30 AM EST Telemedicine [facility], Virtual [address] [place] [address] [place] [address] Advanced, [facility] [address] [place] [address] [place] [address] 08/11/2024 11:00 AM EST Telemedicine [facility], Virtual [address] [place] [address] [place] [address] Advanced, [facility] [address] [place] [address] [place] [address] 08/13/2024 10:30 AM EST Telemedicine [facility], Virtual [address] [place] [address] [place] [address] Advanced, [facility] [address] [place] [address] [place] [address] 08/18/2024 10:30 AM EST Telemedicine [facility], Virtual [address] [place] [address] [place] [address] Advanced, [facility] [address] [place] [address] [place] [address] 08/18/2024 12:30 PM EST Telemedicine [facility], Virtual [address] [place] [address] [place] [address] Advanced, [facility] [address] [place] [address] [place] [address] 08/20/2024 10:30 AM EST Telemedicine [facility], Virtual [address] [place] [address] [place] [address] Advanced, [facility] [address] [place] [address] [place] [address] 08/20/2024 10:45 AM EST Office Visit Cardiothoracic Surg [facility] [address] [place] [address] Jayden Galvan MD [address] [place] [address] 08/25/2024 10:30 AM EST Telemedicine [facility], Virtual [address] [place] [address] [place] [address] Advanced, Virtual [facility] [address] [place] [address] [place] [address] 08/25/2024 11:00 AM EST Telemedicine Cardiac Rehab [facility], Virtual [address] [place] [address] [place] [address] Advanced, Virtual [facility] [address] [place] [address] [place] [address] 08/27/2024 10:30 AM EST Telemedicine Cardiac Rehab [facility], Virtual [address] [place] [address] [place] [address] Advanced, Virtual [facility] [address] [place] [address] [place] [address] 09/01/2024 10:30 AM EST Telemedicine Cardiac Rehab [facility], Virtual [address] [place] [address] [place] [address] Advanced, Virtual [facility] [address] [place] [address] [place] [address] 09/01/2024 1:00 PM EST Office Visit Family Practice [address] [place] [address] 293 [place] [address] Leon Galvan, 293 [facility] [address] 09/02/2024 11:40 AM EST [facility] 132 [facility] [place] [address] [facility] [address] [facility] [place] [address] 09/03/2024 10:30 AM EST Telemedicine Cardiac Rehab [facility], Virtual [address] [place] [address] [place] [address] Advanced, Virtual Card[facility] [address] [place] [address] 09/03/2024 12:30 PM EST Telemedicine Card[facility] Re[facility], Virtual [address] [place] [address] [place] [address] Advanced, Virtual Card[facility] [address] [place] [address] 09/08/2024 10:30 AM EST Telemedicine Card[facility], Virtual [address] [place] [address] [place] [address] Advanced, Virtual Card[facility] [address] [place] [address] 09/10/2024 10:30 AM EST Telemedicine Cardiac [facility], Virtual [address] [place] [address] [place] [address] Advanced, Virtual [facility] [address] [place] [address] 09/10/2024 12:30 PM EST Telemedicine Card[facility], Virtual [address] [place] [address] [place] [address] Advanced, Virtual [facility] [address] [place] [address] [place] [address] 09/15/2024 10:30 AM EDT Telemedicine Cardiac Rehab [facility], Virtual [address] [place] [address] [place] [address] Advanced, Virtual [facility] [address] [place] [address] 09/17/2024 8:40 AM EDT Office Visit Family Practice 65 [facility], [address] [place] [address] Leon Galvan, DO [address] [place] [address] 09/17/2024 10:30 AM EDT Telemedicine Cardiac Re[facility], Virtual [address] [place] [address] [place] [address] Advanced, [facility] [address] [place] [address] [place] [address] 09/17/2024 11:00 AM EDT Telemedicine Cardiac Rehab [facility], Virtual [address] [place] [address] [place] [address] Advanced, [facility] [address] [place] [address] [place] [address] 09/18/2024 8:00 AM EDT Office Visit Cardiology, [facility] [address] [facility] [place] [address] Alexandra Mackenzie CRNP [address] [place] [address] 09/22/2024 10:30 AM EDT Telemedicine Cardiac Rehab [facility], Virtual [address] [place] [address] [place] [address] Advanced, [facility] [address] [place] [address] [place] [address] 09/24/2024 10:30 AM EDT Telemedicine Cardiac Rehab [facility], Virtual [address] [place] [address] [place] [address] Advanced, [facility] [address] [place] [address] [place] [address] 09/24/2024 11:00 AM EDT Telemedicine Cardiac Rehab [facility], Virtual [address] [place] [address] [place] [address] Advanced, Virtual [facility] [address] [place] [address] [place] [address] 09/29/2024 9:00 AM EDT Home Visit [facility] [place], [facility] [address] [place] [address] Pito Rodriguez PA-C [address] [place] [address] 09/29/2024 10:30 AM EDT Telemedicine Cardiac Re[facility], Virtual [address] [place] [address] [place] [address] Advanced, [facility] [address] [place] [address] [place] [address] 10/01/2024 10:30 AM EDT Telemedicine Cardiac Rehab [facility], Virtual [address] [place] [address] [place] [address] Advanced, Virtual [facility] [address] [place] [address] [place] [address] 10/06/2024 10:30 AM EDT Telemedicine Cardiac Rehab Advanced, Virtual [address] [place] [address] [place] [address] Advanced, Virtual [facility] [address] [place] [address] [place] [address] 10/10/2024 3:30 PM EDT Imaging Radiology [facility] [address] [place] [address] 10/17/2024 9:00 AM EDT Office Visit Urology, [place] [address] [place] [address] Johnathon Kent PA-C [address] [place] [address] 02/06/2025 9:30 AM EDT Office Visit Cardiology, [facility] [address] [place] [address] Poncho Robledo O, DO [address] [place] [address] Health Maintenance Due Date Last Done Comments Cologuard 1995 Sigmoidoscopy 1995 Fecal Occult Blood Test 12/20/2008 12/21/2007 *ADVANCE DIRECTIVE NOT ON FILE 2019 DISCUSS TOBACCO CESSATION (REFER TO SMARTSET #4517) 06/18/2024 06/18/2023, 01/24/2017 Adult Wellness Visit 02/17/2025 [...] Medical Devices Implanted Type Area Director Of Strategy & Mobile Device Identifier Shelf Expiration Date Model / Serial / Lot Lead Kit Trial [id number] 50cm - [id number] - [id number] Implanted:Qty: 1 on 05/08/2024 by Maged Monreal DO at OR [facility] Left: Back [employer] : PAIN MGMT 03/18/2026 [id number] 50E0 / [id number] / Lead Kit Trial [id number] 50cm - [id number] - [id number] Implanted:Qty: 1 on 05/08/2024 by Maged Monreal DO at OR [facility] Right: Back [employer] : PAIN MGMT 03/18/2026 [id number] 50E0 / [id number] / Suture Steel 6 B&S19 M654g - [id number] Implanted:Qty: 1 on 07/08/2024 by Jayden Galvan MD at OR [facility] N/A: Sternum JNJ : [employer] 03/08/2029 M654G / / [id number] Marker Coronary - [id number] Implanted:Qty: 1 on 07/08/2024 by Jayden Galvan MD at OR [facility] N/A: Heart [employer] 05/08/2027 AM-SD / / [id number] Marker Coronary - [id number] Implanted:Qty: 1 on 07/08/2024 by Jayden Galvan MD at OR [facility] N/A: Heart [employer] 06/07/2027 AM-SD / / [id number] documented as of this encounter Advance Directives * Full Code (Latest Code Status on File) Date Activated Date Inactivated Comments 07/08/2024 12:14 PM 07/15/2024 5:39 PM This order reflects the patients wishes and were consensually agreed upon. Question Answer Comments Discussion of Advance Directives occurred with: Patient Care Teams C Unix Developer Relationship Specialty Start Date End Date Leon Galvan DO [address] [place] [address] PCP - General Internal Medicine 12/28/23 documented as of this encounter
--- OUTSIDE RECORDS SUMMARY | 2024-08-28 23:25 | External Medical Summary | Summary of Care ---
Author Name Unknown Organization [facility] Address [address] [place] [address] Phone [phone] Care Team Providers Care Lead Caster Name Role Phone Leon Galvan DO Primary Care Provider [phone] Encounter Details Date Type Department Care Team (Late st Contact Info) Description 08/06/2024 12:30 PM EST [facility] [address] [facility] [place] [address] Jhoana Fried RN [address] [facility] [place] [address] Allergies Active Allergy Reactions Criticality Noted Date [...] week. 5 Suppository 08/05/19 25 2024 Active documented as of this encounter (statuses as of 08/07/2024) Active Problems Problem Noted Date Diagnosed Date Atrial fibrillation 08/01/2024 Impaired mobility and ADLs 07/17/2024 S/P CABG x 4 07/08/2024 Coronary artery disease invo lving [place] coronary artery of [place] heart with unstable angina pectoris 07/03/2024 Vitamin [...] h autonomic neuropathy 08/17/2023 09/17/2023 Atherosclerosis of [place] co ronary artery without angina pectoris 08/17/2023 [...] CG/0.3 mL, 12 YRS AND ABOVE, IM [facility] 06/16/2024,05/07/2023 COVID-19, mRNA, LNP-s, [...] Sign Reading Time Taken Comments Blood Pressure 60/40 08/07/2024 8:21 AM EST left arm sitting Pulse 80 08/07/2024 8:21 AM EST Temperature 36.3 C (97.4 F) 08/07/2024 8 :21 AM EST Respiratory Rate 20 08/07/2024 8:21 AM EST Oxygen Saturation 97% 08/07/2024 8:2 1 AM EST Inhaled Oxygen Concentration - - Weight - - Height - - Body Mass Index - - documented in this encounter Progress Notes * Jhoana Fried RN - 08/07/2024 8:01 AM EST Current Concerns: Arrived to pt's home Pt stood up from couch to walk into the kitchen, girlfriend was beside him and holding on to him He walked into hallway and started to go down to the floor, legs gave out, he did not lose consciousness but did have altered mental status. He was unable to follow commands, was moaning at first then started crying He went down to his knees and then to his bottom, sitting on floor, did not hit his head as he had gf and this nurse to help him sit onto floor Unable to get a bp reading at first Pulse ox was reading 97 %, pulse regular at 80, resp 20, temp 97.4 He said he was not dizzy, kept stating "I'm fine, I'm fine" as he started to come around Then started crying saying he didn't want to and didn't want to go back to the hospital Girlfriend reported pt "hasn't been right" since he got home from rehab Has had at least one fall a day, won't use walker He is unsteady and sometimes gets confused per gf Assisted pt to sit onto chair - bp taken multiple times and very difficult to hear, getting a reading of 60/40 He then started complaining of severe neck pain, rubbing his neck Pt pale and shaky, unable to stand on his own He first said he did not take his meds this morning and then said that he did take them. Gf thought coumadin was to be given twice a day- pt was unsure He did have 7 tabs in bottle left out of 14 and it was picked up 7 days ago Pt has history of being non-adherent with taking meds Attempted multiple times to get another bp reading, still difficult to hear and what could be was low, <70 systolic He continued to have difficulty following commands but was able to answer most questions appropriately He was able to lift both arms but unable to squeeze He was able to stick tongue out and smile, no facial droop noted, no one sided weakness noted He kept putting head down and staring at floor He reported blurry vision Further discussed with C via phone Pt kept having crying episodes saying he didn't want to Discussed with pt and gf about going to ED for further eval GF was going to work and would not be home with him, he would be alone until after 10pm Pt did state he would go 911 called and EMS arrived, report given, transported to [facility] ED Physical Exam: Physical Exam Constitutional: Appearance: He is ill-appearing. Cardiovascular: Rate and Rhythm: Normal rate and regular rhythm. Pulses: Normal pulses. Heart sounds: Normal heart sounds. Pulmonary: Breath sounds: Wheezing present. Abdominal: Palpations: Abdomen is soft. Skin: General: Skin is warm. Coloration: Skin is pale. Neurological: Mental Status: He is disoriented. Motor: Weakness present. Coordination: Coordination abnormal. Review of Systems: Review of Systems Neurological: Positive for weakness. Psychiatric/Behavioral: Positive for confusion (intermittent). Care Plan Goal Progress: Orders Placed: No orders of the defined types were placed in this encounter. Medications Given: Care Gaps: * Rodolfo Anderson MD - 08/06/2024 1:19 PM EST I collaborated awa/ Jhoana Hypotensive, falling, altered mental status, uncertain about med adherence, uncertain about adequacy of caregiver Recommend ED today Rodolfo Anderson MD, [facility], FAAFP [facility] ([facility]) [facility] at Available on [employer] documented in this encounter Plan of Treatment Upcoming Encounters Date Type Department Care Team (Late st Contact Info) Description 08/11/2024 10:30 AM EST Telemedicine Cardiac Rehab [facility], Virtual [address] [place] [address] [place] [address] Advanced, [facility] [address] [place] [address] [place] [address] 08/11/2024 11:00 AM EST Telemedicine Cardiac Rehab [facility], Virtual [address] [place] [address] [place] [address] Advanced, [facility] [address] [place] [address] 08/13/2024 10:30 AM EST Telemedicine Cardiac Rehab [facility], Virtual [address] [place] [address] [place] [address] Advanced, [facility] [address] [place] [address] 08/18/2024 10:30 AM EST Telemedicine Cardiac Rehab Advanced, Virtual [address] [place] [address] [place] [address] Advanced, [facility] [address] [place] [address] [place] [address] 08/18/2024 12:30 PM EST Telemedicine Cardiac Rehab [facility], Virtual [address] [place] [address] [place] [address] Advanced, [facility] [address] [place] [address] [place] [address] 08/20/2024 10:30 AM EST Telemedicine Cardiac Rehab [facility], Virtual [address] [place] [address] [place] [address] Advanced, Virtual Card[facility] [address] [place] [address] [place] [address] 08/20/2024 10:45 AM EST Office Visit Cardiothoracic Surg [facility] [address] [place] [address] Jayden Galvan MD [address] [place] [address] 08/25/2024 10:30 AM EST Telemedicine Cardiac Rehab Advanced, Virtual [address] [place] [address] [place] [address] Advanced, Virtual [facility] [address] [place] [address] [place] [address] 08/25/2024 11:00 AM EST Telemedicine Cardiac Rehab Advanced, Virtual [address] [place] [address] [place] [address] Advanced, Virtual [facility] [address] [place] [address] [place] [address] 08/27/2024 10:30 AM EST Telemedicine Cardiac Rehab Advanced, Virtual [address] [place] [address] [place] [address] Advanced, Virtual [facility] [address] [place] [address] [place] [address] 09/01/2024 10:30 AM EST Telemedicine Cardiac Rehab Advanced, Virtual [address] [place] [address] [place] [address] Advanced, Virtual Card[facility]hab [address] [place] [address] [place] [address] 09/01/2024 1:00 PM EST Office Visit Family Practice [address] [place] [address] 293 [place] [address] Leon Galvan, 293 [place] [address] 09/02/2024 11:40 AM EST Office Visit Pharmacy, [facility] [address] [facility] 132 [facility] [place] [address] 09/03/2024 10:30 AM EST Telemedicine Cardiac Rehab [facility], Virtual [address] [place] [address] [place] [address] Advanced, Virtual [facility] [address] [place] [address] [place] [address] 09/03/2024 12:30 PM EST Telemedicine Cardiac Rehab Advanced, Virtual [address] [place] [address] [place] [address] Advanced, Virtual [facility] [address] [place] [address] [place] [address] 09/08/2024 10:30 AM EST Telemedicine Cardiac Rehab Advanced, Virtual [address] [place] [address] [place] [address] Advanced, Virtual Card[facility]hab [address] [place] [address] [place] [address] 09/10/2024 10:30 AM EST Telemedicine Cardiac Rehab Advanced, Virtual [address] [place] [address] [place] [address] Advanced, Virtual [facility] [address] [place] [address] [place] [address] 09/10/2024 12:30 PM EST Telemedicine Cardiac Rehab [facility], Virtual [address] [place] [address] [place] [address] Advanced, Virtual [facility] [address] [place] [address] [place] [address] 09/15/2024 10:30 AM EDT Telemedicine Cardiac Rehab Advanced, Virtual [address] [place] [address] [place] [address] Advanced, Virtual [facility] [address] [place] [address] [place] [address] 09/17/2024 8:40 AM EDT Office Visit [address] [place] [address] Leon Galvan DO 293 [place] [address] 09/17/2024 10:30 AM EDT Telemedicine Cardiac Rehab Advanced, Virtual [address] [place] [address] [place] [address] Advanced, Virtual [facility] [address] [place] [address] [place] [address] 09/17/2024 11:00 AM EDT Telemedicine Cardiac Rehab Advanced, Virtual [address] [place] [address] [place] [address] Advanced, Virtual [facility] [address] [place] [address] [place] [address] 09/18/2024 8:00 AM EDT Office Visit Cardiology, [facility] 132 [facility] [place] [address] Alexandra Mackenzie CRNP 132 [facility] [place] [id number] 09/22/2024 10:30 AM EDT Telemedicine Cardiac Rehab Advanced, Virtual [address] [place] [address] [place] [address] Advanced, Virtual Card[facility] [address] [place] [address] [place] [address] 09/24/2024 10:30 AM EDT Telemedicine Cardiac Rehab Advanced, Virtual [address] [place] [address] [place] [address] Advanced, Virtual Card[facility] [address] [place] [address] [place] [address] 09/24/2024 11:00 AM EDT Telemedicine Cardiac Rehab Advanced, Virtual [address] [place] [address] [place] [address] Advanced, Virtual Cardiac Rehab [address] [place] [address] [place] [address] 09/29/2024 9:00 AM EDT [facility] [address] [place] [address] Pito Rodriguez PA-C [address] [place] [address] 09/29/2024 10:30 AM EDT Telemedicine Cardiac Rehab Advanced, Virtual [address] [place] [address] [place] [address] Advanced, Virtual Card[facility] [address] [place] [address] [place] [address] 10/01/2024 10:30 AM EDT Telemedicine Cardiac Rehab Advanced, Virtual [address] [place] [address] [place] [address] Advanced, Virtual Cardiac Rehab [address] [place] [address] [place] [address] 10/06/2024 10:30 AM EDT Telemedicine Cardiac Rehab Advanced, Virtual [address] [place] [address] [place] [address] Advanced, Virtual Cardiac Rehab [address] [place] [address] [place] [address] 10/10/2024 3:30 PM EDT Imaging Radiology [facility] [address] [place] [phone] 10/17/2024 9:00 AM EDT Office Visit Urology, [place] [address] [place] [address] Johnathon Kent PA-C [address] [place], [place] [id number] 02/06/2025 9:30 AM EDT Office Visit Cardiology, [facility] [address] [place] [address] Poncho Robledo, [address] [place] [id number] Health Maintenance Due Date Last Done Comments [...] this encounter Medical Devices Implanted Type Area Architecture Consultant Device Identifier Shelf Expiration Date Model / Serial / Lot Lead Kit Trial [id number] 50cm - [id number] - [id number] Implanted:Qty: 1 on 05/08/2024 by Maged Monreal, at OR [facility] Left: Back [employer] : PAIN MGMT 03/18/2026 [id number] 50E0 / [id number] / Lead Kit Trial [id number] 50cm - [id number] - [id number] Implanted:Qty: 1 on 05/08/2024 by Maged Monreal DO at OR [facility] Right: Back [employer] : PAIN MGMT 03/18/2026 [id number] 50E0 / [id number] / Suture Steel 6 B&S19 M654g - [id number] Implanted:Qty: 1 on 07/08/2024 by Jayden Galvan [place] [facility] [place]/A: Sternum JNJ : [employer] 03/08/2029 M654G / / 103BLE Marker Coronary - [id number] Implanted:Qty: 1 on 07/08/2024 by Jayden Galvan MD [place] [facility] [place]/A: Heart [employer] 05/08/2027 [facility] / / [id number] Marker Coronary - [id number] Implanted:Qty: 1 on 07/08/2024 by Jayden Galvan MD [place] [facility] N/A: Heart [employer] 06/07/2027 [facility] / / [id number] documented as of this encounter Advance Directives * Full Code (Latest Code Status on File) Date Activated Date Inactivated Comments 07/08/2024 12:14 PM 07/15/2024 5:39 PM This order reflects the patients wishes and were consensually agreed upon. Question Answer Comments Discussion of Advance Directives occurred with: Patient Care Teams Lead Caster Relationship Specialty Start Date End Date Leon Galvan DO 293 [place] [address] PCP - General Internal Medicine 12/28/23 documented as of this encounter
--- OUTSIDE RECORDS SUMMARY | 2024-08-28 23:25 | External Medical Summary | Summary of Care ---
Author Name Unknown Organization [facility] Address [address] [place] [address] Phone [phone] Care Team Providers Care Credit And Collection Manager Name Role Phone Leon Galvan DO Primary Care Provider [phone] Reason for Visit * Reason Onset Date Comments [facility]: Maintenance 08/07/2024 Encounter Details Date Type Department Care Team (Late st Contact Info) Description 08/07/2024 Telephone [facility], [facility] [address] [employer] [address] [address] Jhoana Fried, RN [address] [facility] [address] [facility]: Maintenance Allergies Active Allergy [...] 4 07/08/2024 Coronary artery disease invo lving [place] coronary artery of [place] heart with unstable angina pectoris 07/03/2024 Vitamin [...] h autonomic neuropathy 08/17/2023 09/17/2023 Atherosclerosis of [place] co ronary artery without angina pectoris 08/17/2023 [...] Telephone Encounter - Nelida Wahl RN - 08/07/2024 9:57 AM EST IP CM at [facility] to get involved. This CM sent TT to Tiffanie Frey at [facility] to have CM evaluate for discharge planning. She is aware that falls have happened every day since DC from rehab on 07/28/24. This CM to continue chart reviews. * Telephone Encounter - Jhoana Fried RN - 08/07/2024 8:33 AM EST Pt sent to ED yesterday during RNCM home visit. Per hospital records, he was admitted at [facility] for BIJLA, urinary retention, hydronephrosis. documented in this encounter Plan of Treatment Upcoming Encounters Date Type Department Care Team (Late st Contact Info) Description 08/11/2024 10:30 AM EST Telemedicine Cardiac Rehab Advanced, Virtual [address] [place] [address] [place] [address] Advanced, Virtual Cardiac Rehab [address] [place] [address] 08/11/2024 11:00 AM EST Telemedicine Cardiac Rehab Advanced, Virtual [address] [place] [address] [place] [address] Advanced, Virtual Cardiac Rehab [address] [place] [address] 08/13/2024 10:30 AM EST Telemedicine Cardiac Rehab Advanced, Virtual [address] [place] [address] [place] [address] Advanced, Virtual Cardiac Rehab [address] [place] [address] [place] [address] 08/18/2024 10:30 AM EST Telemedicine Cardiac Rehab Advanced, Virtual [address] [place] [address] [place] [address] Advanced, Virtual Card[facility] Rehab [address] [place] [address] [place] [address] 08/18/2024 12:30 PM EST Telemedicine Cardiac Rehab Advanced, Virtual [address] [place] [address] [place] [address] Advanced, Virtual Card[facility] [address] [place] [address] 08/20/2024 10:30 AM EST Telemedicine Cardiac Rehab Advanced, Virtual [address] [place] [address] [place] [address] Advanced, Virtual Card[facility] Rehab [address] [place] [address] 08/20/2024 10:45 AM EST Office Visit Cardiothoracic Surg [facility] [address] [place] [facility] [place] [address] Jayden Galvan MD 100 [address] [facility] [place] [address] 08/25/2024 10:30 AM EST Telemedicine Cardiac Rehab [facility], Virtual [address] [place] [address] [place] [address] Advanced, Virtual Card[facility] [address] [place] [address] [place] [address] 08/25/2024 11:00 AM EST Telemedicine Cardiac Rehab Advanced, Virtual [address] [place] [address] [place] [address] Advanced, Virtual [facility] [address] [place] [address] [place] [address] 08/27/2024 10:30 AM EST Telemedicine Cardiac Rehab Advanced, Virtual [address] [place] [address] [place] [address] Advanced, Virtual Card[facility] Re[facility] [address] [place] [address] [place] [address] 09/01/2024 10:30 AM EST Telemedicine Cardiac Rehab Advanced, Virtual [address] [place] [address] [place] [address] Advanced, Virtual Cardiac Rehab [address] [place] [address] [place] [address] 09/01/2024 1:00 PM EST Office Visit Family Practice 65 [facility] 293 [facility] [place] [address] Leon Galvan, 293 [place] [address] 09/02/2024 11:40 AM EST Office Visit [facility], [facility] 132 [facility] [place] [address] [facility] Corn[facility] 132 [facility] [place] [address] 09/03/2024 10:30 AM EST Telemedicine Cardiac Rehab Advanced, Virtual [address] [place] [address] [place] [address] Advanced, Virtual Cardiac Rehab [address] [place] [address] 09/03/2024 12:30 PM EST Telemedicine Cardiac Rehab Advanced, Virtual [address] [place] [address] [place] [address] Advanced, Virtual Cardiac Rehab [address] [place] [address] 09/08/2024 10:30 AM EST Telemedicine Cardiac Rehab Advanced, Virtual [address] [place] [address] [place] [address] Advanced, Virtual Cardiac Rehab [address] [place] [address] [place] [address] 09/10/2024 10:30 AM EST Telemedicine Cardiac Rehab Advanced, Virtual [address] [place] [address] [place] [address] Advanced, Virtual Cardiac Rehab [address] [place] [address] [place] [address] 09/10/2024 12:30 PM EST Telemedicine Cardiac Rehab Advanced, Virtual [address] [place] [address] [place] [address] Advanced, Virtual Card[facility] [address] [place] [address] [place] [address] 09/15/2024 10:30 AM EDT Telemedicine Cardiac Rehab Advanced, Virtual [address] [place] [address] [place] [address] Advanced, Virtual Cardiac Re[facility] [address] [place] [address] 09/17/2024 8:40 AM EDT Office Visit Family Practice 65 [facility] 293 [facility] [place] [address] Leon Galvan, DO 293 [place] [address] 09/17/2024 10:30 AM EDT Telemedicine Cardiac Rehab Advanced, Virtual [address] [place] [address] [place] [address] Advanced, Virtual Cardiac Rehab [address] [place] [address] [place] [address] 09/17/2024 11:00 AM EDT Telemedicine Cardiac Rehab Advanced, Virtual [address] [place] [address] [place] [address] Advanced, Virtual Cardiac Rehab [address] [place] [address] [place] [address] 09/18/2024 8:00 AM EDT Office Visit [facility], [facility] [place] [address] Alexandra Mackenzie CRNP [address] [place] [address] 09/22/2024 10:30 AM EDT Telemedicine Cardiac Rehab Advanced, Virtual [address] [place] [address] [place] [address] Advanced, Virtual Cardiac Rehab [address] [place] [address] [place] [address] 09/24/2024 10:30 AM EDT Telemedicine Cardiac Rehab Advanced, Virtual [address] [place] [address] [place] [address] Advanced, Virtual Cardiac Rehab [address] [place] [address] [place] [address] 09/24/2024 11:00 AM EDT Telemedicine Cardiac Rehab Advanced, Virtual [address] [place] [address] [place] [address] Advanced, Virtual Cardiac Rehab [address] [place] [address] [place] [address] 09/29/2024 9:00 AM EDT [facility] Visit [facility], [facility] [address] [place] [address] Pito Rodriguez PA-C [address] [place] [address] 09/29/2024 10:30 AM EDT Telemedicine Cardiac Rehab Advanced, Virtual [address] [place] [address] [place] [address] Advanced, Virtual Card[facility] Re[facility] [address] [place] [address] [place] [address] 10/01/2024 10:30 AM EDT Telemedicine Cardiac Rehab Advanced, Virtual [address] [place] [address] [place] [address] Advanced, Virtual Card[facility] [address] [place] [address] [place] [address] 10/06/2024 10:30 AM EDT Telemedicine Cardiac Rehab Advanced, Virtual [address] [place] [address] [place] [address] Advanced, Virtual Cardiac Rehab [address] [place] [address] [place] [address] 10/10/2024 3:30 PM EDT Imaging Radiology [facility] [address] [place] [phone] 10/17/2024 9:00 AM EDT Office Visit Urology, [place] [address] [place] [address] Johnathon Kent PAEmerson [address] [place] [address] 02/06/2025 9:30 AM EDT Office Visit Cardiology, [facility] [address] [place] [address] Poncho Robledo O, DO [address] [address] [place] [address] Health Maintenance Due Date Last Done Comments Cologuard 1995 Sigmoidoscopy 1995 Fecal Occult Blood Test 12/20/2008 12/21/2007 *ADVANCE DIRECTIVE NOT ON FILE 2019 DISCUSS TOBACCO CESSATION (REFER TO SMARTSET #7208) 06/18/2024 06/18/2023, 01/24/2017 Adult Wellness Visit 02/17/2025 [...] this encounter Medical Devices Implanted Type Area Baseball Hand Sewer Device Identifier Shelf Expiration Date Model / Serial / Lot Lead Kit Trial [id number] 50cm - [id number] - [id number] Implanted:Qty: 1 on 05/08/2024 by Maged Monreal DO at [facility] Left: Back [employer] : PAIN MGMT 03/18/2026 [id number] 50E0 / [id number] / Lead Kit Trial [id number] 50cm - [id number] - [id number] Implanted:Qty: 1 on 05/08/2024 by Maged Monreal DO at OR [facility] Right: Back [employer] : PAIN MGMT 03/18/2026 [id number] 50E0 / [id number] / Suture Steel 6 B&S19 M654g - [id number] Implanted:Qty: 1 on 07/08/2024 by Jayden Galvan MD [place] [facility] N/A: Sternum JNJ : [employer] 03/08/2029 M654G / / 103BLE Marker Coronary - [id number] Implanted:Qty: 1 on 07/08/2024 by Jayden Galvan MD [place] [facility] N/A: Heart [employer] 05/08/2027 AM-[facility] / / [id number] Marker Coronary - [id number] Implanted:Qty: 1 on 07/08/2024 by Jayden Galvan MD [place] [facility] N/A: Heart [employer] 06/07/2027 AM-[facility] / / [id number] documented as of this encounter Advance Directives * Full Code (Latest Code Status on File) Date Activated Date Inactivated Comments 07/08/2024 12:14 PM 07/15/2024 5:39 PM This order reflects the patients wishes and were consensually agreed upon. Question Answer Comments Discussion of Advance Directives occurred with: Patient Care Teams Credit And Collection Manager Relationship Specialty Start Date End Date Leon Galvan DO [address] [facility] [place] [place] [address] PCP - General Internal Medicine 12/28/23 documented as of this encounter
--- OUTSIDE RECORDS SUMMARY | 2024-08-28 23:25 | External Medical Summary | Summary of Care ---
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 (HCC)*; HTN, goal below 140/90; Heart failure, systolic, due to CAD (HCC); Paroxysmal atrial fibrillation (HCC) Allergies Active Allergy Reactions Criticality Noted Date Comments Codeine Other (Please comment) High 09/08/2013 Severe Skin peeling documented as of this encounter (statuses as of 08/08/2024) Medications oxygen GASIndications: Chronic coronary artery disease,COPD, [...] 100 Capsule 3 4 10:41 AM EDT 023 Active Additional Information Patient taking differently:0.5 mg OralDAILY NOON, Reported on 08/01/2024 buPROPion HCl ER (SR) 150 MG Oral Tablet Extended Release 12 Hour (Wellbutrin SR)Indications: Tobacco use disorder Take 1 Tablet by mouth in the morning and 1 Tablet before bedtime. 200 Tablet 3 4 10:41 AM EDT 023 Active busPIRone HCl 5 MG Oral Tablet (Buspar)Indicat ions:Anxiety state Take 1 Tablet by mouth in the morning and 1 Tablet before bedtime. 200 Tablet 3 4 10:41 AM EDT 023 Active Ezetimibe 10 MG Oral Tablet (Zetia)Indicati ons:Dyslipidemi a, goal LDL below 70 TAKE ONE TABLET BY MOUTH DAILY 100 Tablet 3 4 10:41 AM EDT 023 Active Mirtazapine 15 MG Oral Tablet (Remeron)Indica tions:Anxiety state Take 1 Tablet by mouth at bedtime. 100 Tablet 3 4 10:41 AM EDT 023 Active Rosuvastatin Calcium 40 MG Oral Tablet (Crestor)Indica tions:HTN, goal below 140/90 Take 1 Tablet by mouth in the morning. 100 Tablet 3 4 6:45 AM EDT 024 Active Clopidogrel Bisulfate 75 MG Oral Tablet (pLAVix)Indicat ions:HTN, goal below 140/90 Take 1 Tablet by mouth in the morning. 100 Tablet 3 4 10:41 AM EDT 024 Active Tamsulosin HCl 0.4 MG Oral Capsule (Flomax) Take 1 Capsule by mouth in the morning. 90 Capsule 3 4 3:56 PM EDT 024 Active Additional Information Patient taking differently:0.4 mg OralDAILY NOON, Reported on 08/01/2024 Pregabalin 75 MG Oral Capsule (Lyrica) Take 1 Capsule by mouth in the morning and 1 Capsule before bedtime. 60 Capsule 01/07/2 025 Active Furosemide 40 MG Oral Tablet (Lasix) Take 1 Tablet by mouth in the morning. 30 Tablet 025 Active Warfarin Sodium 1 MG Oral Tablet (Coumadin) Take 1 tablet by mouth daily as directed by discharged instructions and the anticoagulation clinic. 14 Tablet Active Pantoprazole Sodium 40 MG Oral Tablet Delayed Release (Protonix)Indic ations:Gastroes ophageal reflux disease without esophagitis Take 1 Tablet by mouth in the morning. 30 Tablet 025 Active B-12-SL 1000 MCG Sublingual Tablet Sublingual [...] of water or juice.. 510 g 1 025 Active Bisacodyl 10 MG Rectal Suppository (Dulcolax)Indic ations:Slow transit constipation Administer 1 Suppository into the rectum daily for 5 days. Do not use for more than 1 week. 5 Suppository 025 2024 Active Nicotine Polacrilex 4 MG Mouth/Throat Lozenge (Nicorette) Administer 1 Lozenge to inside of cheek every 2 hours as needed. Max 20 per day Active Potassium Chloride Joyce ER 10 MEQ Oral Tablet Extended ReleaseIndicati ons:Heart failure, systolic, due to CAD (HCC) Take 2 Tablets by mouth in the morning. 200 Tablet 3 025 Active Carvedilol 3.125 MG Oral Tablet (Coreg)Indicati ons:HTN, goal below 140/90,Paroxysm al atrial fibrillation (HCC) Take 1 Tablet by mouth 2 times a day with morning and evening meals. 200 Tablet 3 025 Active Amiodarone HCl 200 MG Oral Tablet (Cordarone)Cynthia cations:Paroxys mal atrial fibrillation (HCC) Take 1 Tablet by mouth daily with breakfast. 100 Tablet 3 025 Active Amiodarone HCl 200 MG Oral Tablet (Cordarone) Take 1 Tablet by mouth daily with breakfast. 14 Tablet 025 2024 Disconti nued(Ref ill) Carvedilol 3.125 MG Oral Tablet (Coreg) Take 1 Tablet by mouth 2 times a day with morning and evening meals. 28 Tablet 025 2024 Disconti nued(Ref ill) Potassium Chloride Joyce ER 10 MEQ Oral Tablet Extended Release Take 2 Tablets by mouth in the morning. 28 Tablet 025 2024 Disconti nued(Ref ill) documented as of this encounter (statuses as of 08/08/2024) Active Problems Problem Noted Date Diagnosed Date Atrial fibrillation 08/01/2024 Impaired mobility and ADLs 07/17/2024 S/P CABG x 4 07/08/2024 Coronary artery disease invo lving pilot station coronary artery of pilot station heart with unstable angina pectoris 07/03/2024 Vitamin [...] as of this encounter (statuses as of 08/08/2024) Resolved Problems Problem Noted Date Diagnosed Date Resolved Date Type 2 diabetes mellitus wit h autonomic neuropathy 08/17/2023 09/17/2023 Atherosclerosis of pilot station co ronary artery without angina pectoris 08/17/2023 [...] as of this encounter (statuses as of 08/08/2024) Immunizations Name Administration Dates Next Due COVID-19 mRNA, LNP-s, No Pre serve, 2-Dose Series (Moderna) 12/22/2020,11/23/2020 COVID-19, MRNA-LNP, PF, 30 M CG/0.3 mL, 12 YRS AND ABOVE, [facility] 06/16/2024,05/07/2023 COVID-19, mRNA, LNP-s, [...] Telephone Encounter - Fitz Galvan DO - 08/08/2024 2:45 PM ESTSigned Prescriptions: Disp Refills Potassium Chloride Joyce ER 10 MEQ Oral Tab*200 Ta*3 Sig: Take 2 Tablets by mouth in the morning.Authorizing Provider: FITZ GALVAN Carvedilol 3.125 MG Oral Tablet (Coreg) 200 Ta*3 Sig: Take 1 Tablet by mouth 2 times a day with morning and evening meals.Authorizing Provider: FITZ GALVAN Amiodarone HCl 200 MG Oral Tablet (Cordaro*100 Ta*3 Sig:Take 1 Tablet by mouth daily with breakfast.Authorizing Provider: FITZ GALVAN * Telephone Encounter - Fitz Galvan DO - 08/08/2024 2:45 PM ESTSigned Prescriptions: Disp Refills Potassium Chloride Joyce ER 10 MEQ Oral Tab*200 Ta*3 Sig: Take 2 Tablets by mouth in the morning.Authorizing Provider: FITZ GALVAN Carvedilol 3.125 MG Oral Tablet (Coreg) 200 Ta*3 Sig: Take 1 Tablet by mouth 2 times a day with morning and evening meals.Authorizing Provider: FITZ GALVAN Amiodarone HCl 200 MG Oral Tablet (Cordaro*100 Ta*3 Sig:Take 1 Tablet by mouth daily with breakfast.Authorizing Provider: FITZ GALVAN * Telephone Encounter - Patsy Hansen RPh - 08/08/2024 2:39 PM EST Confirmed with Jhoana that patient is not out of any of these medications - has 1 week of meds in pill box and then will be out. Patsy Saldana, Pharm D, BCACP Clinical Pharmacist [address] [facility] 08/08/2024, 2:39 PM Ph. [phone] * Telephone Encounter - Jhoana Fried RN - 08/08/2024 11:39 AM EST Pt in need of refills of Carvedilol, Potassium, and Amiodarone. Orders pended for your review and signature. Pharmacy is [facility]. Thank you! documented in this encounter Plan of Treatment Upcoming Encounters Date Type Department Care Team (Late st Contact Info) Description 08/11/2024 10:30 AM EST Telemedicine Cardiac Rehab Advanced, Virtual 5 [facility] [place] [address] Advanced, Virtual Cardiac Rehab [address] [place] [address] [place] [address] 08/11/2024 11:00 AM EST Telemedicine Cardiac Rehab Advanced, Virtual 675 [facility] [place] [address] Advanced, Virtual Cardiac Rehab [address] [place] [address] [place] [address] 08/12/2024 10:00 AM EST Nurse Only Family Practice 65 [facility] [address] [place] [address] [place], Nurse [facility] Prac [address] [place] [address], [place] [address] 08/12/2024 10:20 AM EST Office Visit Family Practice 65 [facility] 293 [facility] [place] [address] Fitz Galvan, DO 293 [facility] [place] [address] 08/13/2024 10:30 AM EST Telemedicine Cardiac Rehab Advanced, Virtual [address] [place] [address] [place] [address] Advanced, Virtual Cardiac Rehab [address] [place] [address] [place] [address] 08/14/2024 3:20 PM EST Home Visit Care Coordination and Integration [address] [place] [address] Radha Vaughn, Community Health Engineer Second Assistant [address] [place] [address] 08/18/2024 10:30 AM EST Telemedicine Cardiac Rehab Advanced, Virtual [address] [place] [address] [place] [address] Advanced, Virtual Cardiac Rehab [address] [place] [address] [place] [address] 08/18/2024 12:30 PM EST Telemedicine Cardiac Rehab Advanced, Virtual [address] [place] [address] [place] [address] Advanced, Virtual Cardiac Rehab [address] [place] [address] [place] [address] 08/20/2024 10:30 AM EST Telemedicine Cardiac Rehab Advanced, Virtual [address] [place] [address] [place] [address] Advanced, Virtual Cardiac Rehab [address] [place] [address] [place] [address] 08/20/2024 10:45 AM EST Office Visit Cardiothoracic Surg [facility], [place] [address] [place] [address] Jayden Galvan MD [address] [place] [address] 08/21/2024 4:00 PM EST Home Visit [facility] 132 [facility] [place] [address] Jhoana Fried RN 132 [facility] [place] [address] 08/25/2024 10:30 AM EST Telemedicine Cardiac Rehab Advanced, Virtual [address] [place] [address] [place] [address] Advanced, Virtual Cardiac Rehab [address] [place] [address] [place] [address] 08/25/2024 11:00 AM EST Telemedicine Cardiac Rehab Advanced, Virtual [address] [place] [address] [place] [address] Advanced, Virtual Cardiac Rehab [address] [place] [address] [place] [address] 08/27/2024 10:30 AM EST Telemedicine Cardiac Rehab Advanced, Virtual [address] [place] [address] [place] [address] Advanced, Virtual Cardiac Rehab [address] [place] [address] [place] [address] 09/01/2024 10:30 AM EST Telemedicine Cardiac Rehab Advanced, Virtual [address] [place] [address] [place] [address] Advanced, Virtual Cardiac Rehab [address] [place] [address] [place] [address] 09/01/2024 1:00 PM EST Office Visit Family Practice 65 [facility] 293 [facility] [place] [address] Fitz Galvan, 293 [facility], [place] [address] 09/02/2024 11:40 AM EST Office Visit Pharmacy, [facility] 132 [facility] [address] [address] [facility] [address] [facility] [place] [address] 09/03/2024 10:30 AM EST Telemedicine Cardiac Rehab Advanced, Virtual [address] [place] [address] [place] [address] Advanced, Virtual Cardiac Rehab [address] [place] [address] [place] [address] 09/03/2024 12:30 PM EST Telemedicine Cardiac Rehab Advanced, Virtual [address] [place] [address] [place] [address] Advanced, Virtual Cardiac Rehab [address] [place] [address] [place] [address] 09/08/2024 10:30 AM EST Telemedicine Cardiac Rehab Advanced, Virtual [address] [place] [address] [place] [address] Advanced, Virtual Cardiac Rehab [address] [place] [address] [place] [address] 09/10/2024 10:30 AM EST Telemedicine Cardiac Rehab Advanced, Virtual [address] [place] [address] [place] [address] Advanced, Virtual Cardiac Rehab [address] [place] [address] [place] [address] 09/10/2024 12:30 PM EST Telemedicine Cardiac Rehab Advanced, Virtual [address] [place] [address] [place] [address] Advanced, Virtual Cardiac Rehab [address] [place] [address] [place] [address] 09/15/2024 10:30 AM EDT Telemedicine Cardiac Rehab Advanced, Virtual [address] [place] [address] [place] [address] Advanced, Virtual Cardiac Rehab [address] [place] [address] [place] [address] 09/17/2024 8:40 AM EDT Office Visit Family Practice [address] [place] [address] 293 [facility] [place] [address] Fitz Galvan, 293 [facility] [place] [address] 09/17/2024 10:30 AM EDT Telemedicine Cardiac Rehab Advanced, Virtual [address] [place] [address] [place] [address] Advanced, Virtual Cardiac Rehab [address] [place] [address] [place] [address] 09/17/2024 11:00 AM EDT Telemedicine Cardiac Rehab Advanced, Virtual [address] [place] [address] [place] [address] Advanced, Virtual Cardiac Rehab [address] [place] [address] [place] [address] 09/18/2024 8:00 AM EDT Office Visit Cardiology, [facility] 132 [facility] [place] [address] Alexandra Mackenzie CRNP 132 [facility] [place] [address] 09/22/2024 10:30 AM EDT Telemedicine Cardiac Rehab Advanced, Virtual [address] [place] [address] [place] [address] Advanced, Virtual Cardiac Rehab [address] [place] [address] [place] [address] 09/24/2024 10:30 AM EDT Telemedicine Cardiac Rehab Advanced, Virtual [address] [place] [address] [place] [address] Advanced, Virtual Cardiac Rehab [address] [place] [address] [place] [address] 09/24/2024 11:00 AM EDT Telemedicine Cardiac Rehab Advanced, Virtual [address] [place] [address] [place] [address] Advanced, Virtual Cardiac Rehab [address] [place] [address] [place] [address] 09/29/2024 9:00 AM EDT Home Visit isinger at [facility] [address] [place] [address] Pito Rodriguez PA-C [address] [place] [address] 09/29/2024 10:30 AM EDT Telemedicine Cardiac Rehab Advanced, Virtual [address] [place] [address] [place] [address] Advanced, Virtual Cardiac Rehab [address] [place] [address] [place] [address] 10/01/2024 10:30 AM EDT Telemedicine Cardiac Rehab Advanced, Virtual [address] [place] [address] [place] [address] Advanced, Virtual Cardiac Rehab [address] [place] [address] [place] [address] 10/06/2024 10:30 AM EDT Telemedicine Cardiac Rehab Advanced, Virtual [address] [place] [address] [place] [address] Advanced, Virtual Cardiac Rehab [address] [place] [address] [place] [address] 10/10/2024 3:30 PM EDT Imaging Radiology [facility] [address] [place] [id number] 10/17/2024 9:00 AM EDT Office Visit Urology, [place] [address] [facility] [place] [address] Johnathon Kent PAEmerson [address] [place] [address] 02/06/2025 9:30 AM EDT Office Visit Cardiology, [facility] [address] [place] [address] Poncho Robledo, [address] [place] [address] Health Maintenance Due Date Last Done Comments [...] this encounter Medical Devices Implanted Type Area Perinatal Nurse Device Identifier Shelf Expiration Date Model / Serial / Lot Lead Kit Trial [id number] 50cm - [id number] - [id number] Implanted:Qty: 1 on 05/08/2024 by Maged Monreal DO at OR [facility] Left: Back [employer] : PAIN MGMT 03/18/2026 [id number] 50E0 / [id number] / Lead Kit Trial [id number] 50cm - [id number] - [id number] Implanted:Qty: 1 on 05/08/2024 by Maged Monreal DO at OR [facility] Right: Back [employer] : PAIN MGMT 03/18/2026 [id number] 50E0 / [id number] / Suture Steel 6 B&S19 M654g - [id number] Implanted:Qty: 1 on 07/08/2024 by Jayden Galvan MD at [place] [facility] N/A: Sternum JN[place] : [employer] 03/08/2029 M654G / / [id number] Marker Coronary - [id number] Implanted:Qty: 1 on 07/08/2024 by Jayden Galvan MD at [place] [facility] N/A: Heart My Luv My Life My Heartbeats [employer] 05/08/2027 [facility] / / [id number] Marker Coronary - [id number] Implanted:Qty: 1 on 07/08/2024 by Jayden Galvan MD at [place] [facility] N/A: Heart [employer] 06/07/2027 [facility] / / [id number] documented as of this encounter Visit Diagnoses Diagnosis 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 Question Answer Comments Discussion of Advance Directives occurred with: Patient Care Teams Engineering Program Manager Relationship Specialty Start Date End Date Fitz Galvan DO 293 [facility] [place] [address] PCP - General Internal Medicine 12/28/23 documented as of this encounter
--- OUTSIDE RECORDS SUMMARY | 2024-08-28 23:25 | External Medical Summary | Summary of Care ---
Author Name Unknown Organization [facility] Address [address] [place] [address] Phone [phone] Care Team Providers Care Rib Cutter Name Role Phone Leon Galvan DO Primary Care Provider [phone] Reason for Visit * Reason Onset Date Comments Appointment 08/07/2024 Encounter Details Date Type Department Care Team (Late st Contact Info) Description 08/07/2024 Telephone [facility] [place] [facility] [address] [place], [place] [id number] Nelida Frank, PRINCE [address], [place] [phone] Appointment Allergies Active Allergy Reactions Criticality Noted [...] 07/08/2024 Coronary artery disease invo lving [place] coronary artery of [place] heart with unstable angina pectoris 07/03/2024 Vitamin [...] autonomic neuropathy 08/17/2023 09/17/2023 Atherosclerosis of [place] co ronary artery without angina pectoris 08/17/2023 [...] No 08/05/2024 Does the household have a [facility] source [facility] income? (Household - for [...] Miscellaneous Notes * Telephone Encounter - Nelida Frank OSA - 08/07/2024 3:21 PM EST TT request from Lulu Rivers to schedule MEJIA Scheduled for 08/08@10am with Jhoana Fried Called pt, no answer unable to leave message Reminder put on appt for RN to call pt before appt time documented in this encounter Plan of Treatment Upcoming Encounters Date Type Department Care Team (Late st Contact Info) Description 08/08/2024 10:00 AM EST Home Visit [facility] at [place], [address] [place] [address] Jhoana Fried, RN [address] [place] [address] 08/11/2024 10:30 AM EST [facility] [address] [place] [address] [place] [address] [facility] [address] [place] [address] [place] [address] 08/11/2024 11:00 AM EST [facility] [address] [place] [address] [place] [address] [facility] [address] [place] [address] [place] [address] 08/13/2024 10:30 AM EST [facility] [address] [place] [address] [place] [address] [facility] [address] [place] [address] [place] [address] 08/18/2024 10:30 AM EST [facility] [address] [place] [address] [place] [address] [facility] [address] [place] [address] [place] [address] 08/18/2024 12:30 PM EST [facility] [address] [place] [address] [place] [address] [facility] [address] [place] [address] [place] [address] 08/20/2024 10:30 AM EST [facility] [address] [place] [address] [place] [address] [facility] [address] [place] [address] [place] [address] 08/20/2024 10:45 AM EST Office Visit Cardiothoracic Surg [facility] [address] [place] [address] Jayden Galvan MD [address] [place] [address] 08/25/2024 10:30 AM EST [facility] [address] [place] [address] [place] [address] [facility] [address] [place] [address] [place] [address] 08/25/2024 11:00 AM EST [facility] [address] [place] [address] [place] [address] [facility] [address] [place] [address] [place] [address] 08/27/2024 10:30 AM EST [facility] [address] [place] [address] [place] [address] [facility] [address] [place] [address] [place] [address] 09/01/2024 10:30 AM EST [facility] [address] [place] [address] [place] [address] [facility] [address] [place] [address] [place] [address] 09/01/2024 1:00 PM EST Office Visit Family Practice [facility] 293 [facility] [address] Leon Galvan, 293 [facility] [place] [address] 09/02/2024 11:40 AM EST Office Visit Pharmacy, [facility] 132 [facility] [place] [address] [facility] 132 [facility] [place] [address] 09/03/2024 10:30 AM EST [facility] [address] [place] [address] [place] [address] [facility] [address] [place] [address] 09/03/2024 12:30 PM EST [facility] [address] [place] [address] [place] [address] [facility] [address] [place] [address] 09/08/2024 10:30 AM EST [facility] [address] [place] [address] [place] [address] [facility] [address] [place] [address] 09/10/2024 10:30 AM EST [facility] [address] [place] [address] [place] [address] [facility] [address] [place] [address] [place] [address] 09/10/2024 12:30 PM EST [facility] [address] [place] [address] [place] [address] [facility] [address] [place] [address] [place] [address] 09/15/2024 10:30 AM EDT [facility] [address] [place] [address] [place] [address] [facility] [address] [place] [address] 09/17/2024 8:40 AM EDT Office Visit Family Practice [address] [place] [address], [place] [address] Leon Galvan, DO 293 [facility] [place] [address] 09/17/2024 10:30 AM EDT [facility] [address] [place] [address] [place] [address] [facility] [address] [place] [address] [place] [address] 09/17/2024 11:00 AM EDT Telemedicine [facility] [address] [place] [address] [place] [address] [facility] [address] [place] [address] [place] [address] 09/18/2024 8:00 AM EDT Office Visit Cardiology, [facility] [address] [place] [address] Alexandra Mackenzie CRNP [address] [place] [address] 09/22/2024 10:30 AM EDT Tele[facility]icine [facility] [address] [place] [address] [place] [address] [facility] [address] [place] [address] [place] [address] 09/24/2024 10:30 AM EDT Telemedicine [facility] [address] [place] [address] [place] [address] [facility] [address] [place] [address] [place] [address] 09/24/2024 11:00 AM EDT Telemedicine [facility] [address] [place] [address] [place] [address] [facility] [address] [place] [address] [place] [address] 09/29/2024 9:00 AM EDT [facility] Visit [facility] [address] [place] [address] Pito Rodriguez PA-C [address] [place] [address] 09/29/2024 10:30 AM EDT Tele[facility] [address] [place] [address] [place] [address] [facility] [address] [place] [address] [place] [address] 10/01/2024 10:30 AM EDT Telemedicine [facility], [facility] [address] [place] [address] [place] [address] [facility] [address] [place] [address] [place] [address] 10/06/2024 10:30 AM EDT Telemedicine [facility], [facility] [address] [place] [address] [place] [address] [facility] [address] [place] [address] [place] [address] 10/10/2024 3:30 PM EDT Imaging Radiology [facility] [address] [place] [address] 10/17/2024 9:00 AM EDT Office Visit Urology, [place] [address] [place] [address] Johnathon Kent PA-C [address] [facility] [place] [address] 02/06/2025 9:30 AM EDT Office Visit Cardiology, [facility] [address] [place] [address] Poncho Robledo O, DO [address] [place] [address] Health Maintenance Due Date Last Done Comments Cologuard 1995 Sigmoidoscopy 1995 Fecal Occult Blood Test 12/20/2008 12/21/2007 *ADVANCE DIRECTIVE NOT ON FILE 2019 DISCUSS TOBACCO CESSATION (REFER TO SMARTSET #2755) 06/18/2024 06/18/2023, 01/24/2017 Adult Wellness Visit 02/17/2025 [...] this encounter Medical Devices Implanted Type Area Historical Records Administrator Device Identifier Shelf Expiration Date Model / Serial / Lot Lead Kit Trial [id number] 50cm - [id number] - [id number] Implanted:Qty: 1 on 05/08/2024 by Maged Monreal DO at OR [facility] Left: Back [employer] : PAIN MGMT 03/18/2026 [id number] 50E0 / [id number] / Lead Kit Trial [id number] 50cm - [id number] - [id number] Implanted:Qty: 1 on 05/08/2024 by Maged Monreal DO at OR [facility] Right: Back [employer] : PAIN MGMT 03/18/2026 [id number] 50E0 / [id number] / Suture Steel 6 B&S19 M654g - [id number] Implanted:Qty: 1 on 07/08/2024 by Jayden Galvan MD [place] [facility] [place]/A: Sternum JNJ : [employer] 03/08/2029 M654G / / 103BLE Marker Coronary - [id number] Implanted:Qty: 1 on 07/08/2024 by Jayden Galvan MD [place] [facility] [place] N/A: Heart [employer] 05/08/2027 AM-SD / / [id number] Marker Coronary - [id number] Implanted:Qty: 1 on 07/08/2024 by Jayden Galvan MD [place] [facility] [place] N/A: Heart [employer] 06/07/2027 [facility] / / [id number] documented as of this encounter Advance Directives * Full Code (Latest Code Status on File) Date Activated Date Inactivated Comments 07/08/2024 12:14 PM 07/15/2024 5:39 PM This order reflects the patients wishes and were consensually agreed upon. Question Answer Comments Discussion of Advance Directives occurred with: Patient Care Teams Rib Cutter Relationship Specialty Start Date End Date Leon Galvan DO [address] [place] [address] PCP - General Internal Medicine 12/28/23 documented as of this encounter
--- OUTSIDE RECORDS SUMMARY | 2024-08-28 23:25 | External Medical Summary | Summary of Care ---
Author Name Unknown Organization [facility] Address [address] [place] [address] Phone [phone] Care Team Providers Care Commercial Horticulture Instructor Name Role Phone Leon Galvan DO Primary Care Provider [phone] Reason for Visit * Reason Onset Date Comments Home Health 08/06/2024 Order Request 08/06/2024 Encounter Details Date Type Department Care Team (Late st Contact Info) Description 08/06/2024 Telephone Family Practice 65 [facility] [place] [address] [place] [address] Leon Galvan DO [address] [place] [address] Home Health; Order Request Allergies Active Allergy Reactions Criticality Noted [...] 4 07/08/2024 Coronary artery disease invo lving [place] coronary artery of [place] heart with unstable angina pectoris 07/03/2024 Vitamin [...] h autonomic neuropathy 08/17/2023 09/17/2023 Atherosclerosis of [place] co ronary artery without angina pectoris 08/17/2023 [...] Telephone Encounter - Debbie George LPN - 08/07/2024 1:08 PM EST Called to let [facility] aware patient is now in patient. Thank you * Telephone Encounter - Mariama Cardenas OSA - 08/06/2024 3:12 PM EST [facility] left a voicemail. Caller didn't identify themself. They were seeing patient for nursing, PT and OT except the PT/OT couldn't get in to see him timely. [facility] is asking if they can have a new order for the PT/OT to see him tomorrow or Sunday. The order can be called in to them at or it can be faxed to [phone]. Caller didn't give a diagnosis code for the referral. Can a new order be placed? documented in this encounter Plan of Treatment Upcoming Encounters Date Type Department Care Team (Late st Contact Info) Description 08/08/2024 10:00 AM EST [facility] 132 [facility] [place] [address] Jhoana Fried RN [address] [place] [address] 08/11/2024 10:30 AM EST [facility]icine [facility] [address] [place] [address] [place] [address] [facility] [address] [place] [address] [place] [address] 08/11/2024 11:00 AM EST Telemedicine [facility] [address] [place] [address] [place] [address] [facility] [address] [place] [address] [place] [address] 08/13/2024 10:30 AM EST Telemedicine [facility] [address] [place] [address] [place] [address] [facility], [facility] [address] [place] [address] [place] [address] 08/18/2024 10:30 AM EST Telemedicine [facility] [address] [place] [address] [place] [address] [facility] [address] [place] [address] [place] [address] 08/18/2024 12:30 PM EST Telemedicine [facility] [address] [place] [address] [place] [address] [facility] [address] [place] [address] [place] [address] 08/20/2024 10:30 AM EST Telemedicine [facility] [address] [place] [address] [place] [address] [facility] [address] [place] [address] [place] [address] 08/20/2024 10:45 AM EST Office Visit Cardiothoracic Surg [facility] [address] [place] [address] Jayden Galvan MD [address] [place] [address] 08/25/2024 10:30 AM EST [facility] [address] [place] [address] [place] [address] [facility] [address] [place] [address] [place] [address] 08/25/2024 11:00 AM EST Telemedicine [facility] [address] [place] [address] [place] [address] [facility] [address] [place] [address] [place] [address] 08/27/2024 10:30 AM EST Telemedicine [facility] [address] [place] [address] [place] [address] [facility], [facility] [address] [place] [address] [place] [address] 09/01/2024 10:30 AM EST Telemedicine [facility] [address] [place] [address] [place] [address] [facility], [facility] [address] [place] [address] [place] [address] 09/01/2024 1:00 PM EST Office Visit Family Practice [address], [place] 293 [place] [address] Leon Galvan, 293 [place] [address] 09/02/2024 11:40 AM EST Office Visit Pharmacy, [facility] 132 [facility] [place] [address] [facility] 132 [facility] [place] [address] 09/03/2024 10:30 AM EST Telemedicine [facility] [address] [place] [address] [place] [address] [facility] [address] [place] [address] [place] [address] 09/03/2024 12:30 PM EST Telemedicine [facility], [facility] [address] [place] [address] [place] [address] [facility], [facility] [address] [place] [address] [place] [address] 09/08/2024 10:30 AM EST Telemedicine [facility] [address] [place] [address] [place] [address] [facility], [facility] [address] [place] [address] [place] [address] 09/10/2024 10:30 AM EST Telemedicine [facility] [address] [place] [address] [place] [address] [facility], [facility] [address] [place] [address] [place] [address] 09/10/2024 12:30 PM EST Telemedicine [facility] [address] [place] [address] [place] [address] [facility] [address] [place] [address] [place] [address] 09/15/2024 10:30 AM EDT Telemedicine Card[facility] Re[facility] [address] [place] [address] [place] [address] [facility] [address] [place] [address] [place] [address] 09/17/2024 8:40 AM EDT Office Visit Family Practice [address] [place] [address] 293 [place] [address] Leon Galvan, 293 [place] [address] 09/17/2024 10:30 AM EDT Telemedicine [facility] [address] [place] [address] [place] [address] [facility] [address] [place] [address] [place] [address] 09/17/2024 11:00 AM EDT Telemedicine Card[facility] [address] [place] [address] [place] [address] [facility], [facility] [address] [place] [address] [place] [address] 09/18/2024 8:00 AM EDT Office Visit Cardiology, [facility] 132 [facility] [place] [address] Alexandra Mackenzie CRNP [address] [place] [address] 09/22/2024 10:30 AM EDT Telemedicine [facility] [address] [place] [address] [place] [address] [facility] [address] [place] [address] [place] [address] 09/24/2024 10:30 AM EDT Telemedicine [facility] [address] [place] [address] [place] [address] [facility] [address] [place] [address] 09/24/2024 11:00 AM EDT Telemedicine Card[facility] Re[facility] [address] [place] [address] [place] [address] [facility] [address] [place] [address] 09/29/2024 9:00 AM EDT Home Visit [facility] [address] [place] [address] Pito Rodriguez PA-C [address] [place] [address] 09/29/2024 10:30 AM EDT Telemedicine Card[facility] [address] [place] [address] [place] [address] [facility], [facility] [address] [place] [address] [place] [address] 10/01/2024 10:30 AM EDT Telemedicine [facility], [facility] [address] [place] [address] [place] [address] Advanced, [facility] [address] [place] [address] [place] [address] 10/06/2024 10:30 AM EDT Telemedicine Card[facility], [facility] [address] [place] [address] [place] [address] Advanced, [facility] [address] [place] [address] [place] [address] 10/10/2024 3:30 PM EDT Imaging Radiology [facility] [address] [place] [phone] 10/17/2024 9:00 AM EDT Office Visit Urology, [place] [address] [facility] [place] [address] Johnathon Kent PA-C [address] [facility] [place] [address] 02/06/2025 9:30 AM EDT Office Visit Cardiology, [facility] [address] [place] [address] Poncho Robledo DO [address] [place] [address] Health Maintenance Due Date Last Done Comments [...] this encounter Medical Devices Implanted Type Area Jewelry Designer Device Identifier Shelf Expiration Date Model / Serial / Lot Lead Kit Trial [id number] 50cm - [id number] - [id number] Implanted:Qty: 1 on 05/08/2024 by Maged Monreal DO at OR [facility] Left: Back [employer] : PAIN MGMT 03/18/2026 [id number] 50E0 / [id number] / Lead Kit Trial [id number] 50cm - [id number] - [id number] Implanted:Qty: 1 on 05/08/2024 by Maged Monreal DO at OR [facility] Right: Back [employer] : PAIN MGMT 03/18/2026 [id number] 50E0 / [id number] / Suture Steel 6 B&S19 M654g - [id number] Implanted:Qty: 1 on 07/08/2024 by Jayden Galvan MD [place] [facility] [place] N/A: Sternum JNJ : [employer] 03/08/2029 M654G / / 103BLE Marker Coronary - [id number] Implanted:Qty: 1 on 07/08/2024 by Jayden Galvan MD [place] [facility] [place] N/A: Heart [employer] 05/08/2027 AM-[place] / / [id number] Marker Coronary - [id number] Implanted:Qty: 1 on 07/08/2024 by Jayden Galvan MD at [place] [facility] N/A: Heart [employer] 06/07/2027 [facility] / / [id number] documented as of this encounter Advance Directives * Full Code (Latest Code Status on File) Date Activated Date Inactivated Comments 07/08/2024 12:14 PM 07/15/2024 5:39 PM This order reflects the patients wishes and were consensually agreed upon. Question Answer Comments Discussion of Advance Directives occurred with: Patient Care Teams Commercial Horticulture Instructor Relationship Specialty Start Date End Date Leon Galvan DO [address] [place] [address] PCP - General Internal Medicine 12/28/23 documented as of this encounter
--- OUTSIDE RECORDS SUMMARY | 2024-08-28 23:26 | External Medical Summary | Summary of Care ---
Author Name Unknown Organization [facility] Address [address] [place] [address] Phone [phone] Care Team Providers Care Overhead Garage Door Hanger Name Role Phone Leon Galvan DO Primary Care Provider [phone] Reason for Visit * Reason Onset Date Comments [facility]: Maintenance 08/07/2024 Encounter Details Date Type Department Care Team (Late st Contact Info) Description 08/07/2024 Telephone [facility], [facility] [address] [place] [address] Jhoana Fried, RN [address] [facility] [place] [address] [facility]: Maintenance Allergies Active Allergy [...] 4 07/08/2024 Coronary artery disease invo lving [place] coronary artery of [place] heart with unstable angina pectoris 07/03/2024 Vitamin [...] h autonomic neuropathy 08/17/2023 09/17/2023 Atherosclerosis of [place] co ronary artery without angina pectoris 08/17/2023 [...] Per hospital records, he was admitted at [facility] for BIJAL, urinary retention, hydronephrosis. documented in this encounter Plan of Treatment Upcoming Encounters Date Type Department Care Team (Late st Contact Info) Description 08/11/2024 10:30 AM EST Telemedicine [facility] [address] [place] [address] [place] [address] [facility] [address] [place] [address] [place] [address] 08/11/2024 11:00 AM EST Telemedicine [facility], [facility] [address] [place] [address] [place] [address] [facility] [address] [place] [address] [place] [address] 08/13/2024 10:30 AM EST Telemedicine [facility], [facility] [address] [place] [place] [address] [place] [address] [facility] [address] [place] [address] [place] [address] 08/18/2024 10:30 AM EST Telemedicine [facility], [facility] [address] [place] [place] [address] [place] [address] [facility] [address] [place] [address] [place] [address] 08/18/2024 12:30 PM EST Telemedicine [facility], [facility] [address] [place] [address] [place] [address] [facility] [address] [place] [address] [place] [address] 08/20/2024 10:30 AM EST Telemedicine [facility], [facility] [address] [place] [address] [place] [address] [facility] [address] [place] [address] [place] [address] 08/20/2024 10:45 AM EST Office Visit Cardiothoracic Surg [place] [address] [place] [address] Jayden Galvan MD [address] [place] [address] 08/25/2024 10:30 AM EST Telemedicine [facility], [facility] [address] [place] [address] [place] [address] [facility], [facility] [address] [place] [address] [place] [address] 08/25/2024 11:00 AM EST Telemedicine Card[facility], [facility] [address] [place] [place] [address] [place] [address] [facility], [facility] [address] [place] [address] [place] [address] 08/27/2024 10:30 AM EST Telemedicine Card[facility], Virtual [address] [place] [place] [address] [place] [address] [facility], [facility] [address] [place] [address] [place] [address] 09/01/2024 10:30 AM EST Telemedicine [facility], [facility] [address] [place] [place] [address] [place] [address] [facility], [facility] [address] [place] [address] [place] [address] 09/01/2024 1:00 PM EST Office Visit Family Practice [address] [place] [address] [address] [place] [address] Leon Galvan, 293 [place] [address] 09/02/2024 11:40 AM EST Office Visit Pharmacy, [facility] [place] [address] [facility] 132 [facility] [place] [address] 09/03/2024 10:30 AM EST Telemedicine [facility], [facility] [address] [place] [address] [place] [address] [facility], [facility] [address] [place] [address] [place] [address] 09/03/2024 12:30 PM EST Telemedicine [facility], [facility] [address] [place] [place] [address] [place] [address] [facility], [facility] [address] [place] [address] [place] [address] 09/08/2024 10:30 AM EST Telemedicine [facility], [facility] [address] [place] [address] [place] [address] [facility], [facility] [address] [place] [address] 09/10/2024 10:30 AM EST Telemedicine [facility], [facility] [address] [place] [address] [place] [address] [facility], [facility] [address] [place] [address] [place] [address] 09/10/2024 12:30 PM EST Telemedicine [facility], [facility] [address] [place] [address] [place] [address] [facility], [facility] [address] [place] [address] [place] [address] 09/15/2024 10:30 AM EDT Telemedicine Cardiac Re[facility], [facility] [address] [place] [address] [place] [address] [facility], [facility] [address] [place] [address] [place] [address] 09/17/2024 8:40 AM EDT Office Visit Family Practice [address] [place] [address] [address] [place] [address] Leon Galvan, DO [address] [place] [address] 09/17/2024 10:30 AM EDT Telemedicine [facility], [facility] [address] [place] [address] [place] [address] [facility], [facility] [address] [place] [address] 09/17/2024 11:00 AM EDT Telemedicine Cardiac [facility], [facility] [address] [place] [address] [place] [address] [facility], [facility] [address] [place] [address] [place] [address] 09/18/2024 8:00 AM EDT Office Visit Cardiology, [facility] [address] [place] [address] Alexandra Mackenzie CRNP [address] [place] [address] 09/22/2024 10:30 AM EDT Telemedicine [facility], [facility] [address] [place] [address] [place] [address] [facility] [address] [place] [address] [place] [address] 09/24/2024 10:30 AM EDT Telemedicine Card[facility], [facility] [address] [place] [address] [place] [address] [facility], [facility] [address] [place] [address] [place] [address] 09/24/2024 11:00 AM EDT Telemedicine Cardiac Re[facility], Virtual [address] [place] [address] [place] [address] [facility], [facility] [address] [place] [address] [place] [address] 09/29/2024 9:00 AM EDT Home Visit [facility] [address] [place] [address] Pito Rodriguez PA-C [address] [place] [address] 09/29/2024 10:30 AM EDT Telemedicine Card[facility], [facility] [address] [place] [address] [place] [address] [facility], [facility] [address] [place] [address] [place] [address] 10/01/2024 10:30 AM EDT Telemedicine Cardiac Re[facility], Virtual [address] [place] [address] [place] [address] [facility], [facility] [address] [place] [address] [place] [address] 10/06/2024 10:30 AM EDT Telemedicine Cardiac [facility], Virtual [address] [place] [address] [place] [address] Advanced, [facility] [address] [place] [address] [place] [address] 10/10/2024 3:30 PM EDT Imaging Radiology [facility] [address] [place] [address] 10/17/2024 9:00 AM EDT Office Visit Urology, [place] [address] [place] [address] Johnathon Kent PA-Monica [address] [place] [address] 02/06/2025 9:30 AM EDT Office Visit Cardiology, [facility] [address] [place] [address] Poncho Robledo, [address] [place] [address] Health Maintenance Due Date Last Done Comments [...] this encounter Medical Devices Implanted Type Area Wood Carver Device Identifier Shelf Expiration Date Model / Serial / Lot Lead Kit Trial [id number] 50cm - [id number] - [id number] Implanted:Qty: 1 on 05/08/2024 by Maged Monreal DO at OR [facility] Left: Back [employer] : PAIN MGMT 03/18/2026 [id number] 50E0 / [id number] / Lead Kit Trial [id number] 50cm - [id number] - [id number] Implanted:Qty: 1 on 05/08/2024 by Maged Monreal DO at OR [facility] Right: Back [employer] : PAIN MGMT 03/18/2026 [id number] 50E0 / [id number] / Suture Steel 6 B&S19 M654g - [id number] Implanted:Qty: 1 on 07/08/2024 by Jayden Galvan [place] [facility] [place]: Sternum JNJ : [employer] 03/08/2029 M654G / / 103BLE Marker Coronary - [id number] Implanted:Qty: 1 on 07/08/2024 by Jayden Galvan [place] [facility] [place]: Heart [employer] 05/08/2027 [facility] / / [id number] Marker Coronary - [id number] Implanted:Qty: 1 on 07/08/2024 by Jayden Galvan [place] [facility]: Heart [employer] 06/07/2027 [facility] / / [id number] documented as of this encounter Advance Directives * Full Code (Latest Code Status on File) Date Activated Date Inactivated Comments 07/08/2024 12:14 PM 07/15/2024 5:39 PM This order reflects the patients wishes and were consensually agreed upon. Question Answer Comments Discussion of Advance Directives occurred with: Patient Care Teams Overhead Garage Door Hanger Relationship Specialty Start Date End Date Leon Galvan DO [address] [place] [address] PCP - General Internal Medicine 12/28/23 documented as of this encounter
--- OUTSIDE RECORDS SUMMARY | 2024-08-28 23:26 | External Medical Summary | Summary of Care ---
Author Name Unknown Organization [facility] Address [address] [place] [address] Phone [phone] Care Team Providers Care Prom Burn Off Operator Name Role Phone Leon Galvan DO Primary Care Provider [phone] Encounter Details Date Type Department Care Team (Late st Contact Info) Description 07/30/2024 4:00 PM EST [facility] [address] [facility] [place] [address] Jhoana Fried RN [address] [facility] [place] [address] Allergies Active Allergy Reactions Criticality Noted Date Comments Codeine Other (Please comment) High 09/08/2013 Severe Skin peeling documented as of this encounter (statuses as of 08/04/2024) Medications oxygen GASIndications :Chronic coronary artery disease,COPD, [...] the morning. 28 Tablet 07/29/19 25 Active Pantoprazole Sodium 40 MG Oral Tablet Delayed Release (Protonix) Take 1 Tablet by mouth in the morning. 025 Discontin ued(Refil l) Famotidine 20 MG Oral Tablet Take 1 Tablet by mouth in the morning. 025 Discontin ued(Refil l) rOPINIRole HCl 0.5 MG Oral Tablet (Requip)Indica tions:Restless legs syndrome Take 1 Tablet by mouth in the morning and 1 Tablet at noon and 1 Tablet before bedtime. With food. 300 Tablet 3 4 10:41 AM EDT 02/07/20 23 025 Discontin ued(Refil l) Warfarin Sodium 1 MG Oral Tablet (Coumadin) Take tablet by mouth daily as directed by discharged instructions and the anticoagulation clinic. 14 Tablet 07/29/19 25 025 Discontin ued(Refil l) documented as of this encounter (statuses as of 08/04/2024) Active Problems Problem Noted Date Diagnosed Date Atrial fibrillation 08/01/2024 Impaired mobility and ADLs 07/17/2024 S/P CABG x 4 07/08/2024 Coronary artery disease invo lving [place] coronary artery of [place] heart with unstable angina pectoris 07/03/2024 Vitamin [...] as of this encounter (statuses as of 08/04/2024) Resolved Problems Problem Noted Date Diagnosed Date Resolved Date Type 2 diabetes mellitus wit h autonomic neuropathy 08/17/2023 09/17/2023 Atherosclerosis of [place] co ronary artery without angina pectoris 08/17/2023 [...] as of this encounter (statuses as of 08/04/2024) Immunizations Name Administration Dates Next Due COVID-19 [...] Sign Reading Time Taken Comments Blood Pressure 112/62 07/30/2024 4:23 PM EST Pulse 80 07/30/2024 4:23 PM EST Temperature 36.6 C (97.9 F) 07/30/2024 4:23 PM ES T Respiratory Rate 18 07/30/2024 4:23 PM EST Oxygen Saturation - - Inhaled Oxygen Concentration - - Weight - - Height - - Body Mass Index - - documented in this encounter Progress Notes * Jhoana Fried RN - 07/30/2024 3:31 PM EST Current Concerns: Pt seen for enrollment to [facility] and [facility] Acute visit set up today d/t pt's confusion with medications Bottles out med rec completed meds into what pt is taking now and what no longer taking - bagged seperately and he is going to take to [facility] visit on Sunday Missing coumadin - pharmacy notfied and where asking if pt was on it before d/t an interaction between coumadin and amiodorone - pt has been on for 2 weeks with no problems - pharmacist aware and will fill Pt pt will have someone pick it up for him this evening He missed last night's dose TT with [facility] Patsy Saldana to let her know of missing meds Physical Exam: Physical Exam Constitutional: General: He is not in acute distress. Cardiovascular: Rate and Rhythm: Normal rate and regular rhythm. Pulses: Normal pulses. Heart sounds: Normal heart sounds. Pulmonary: Effort: Pulmonary effort is normal. Breath sounds: Wheezing (RUL, RML) present. Abdominal: Palpations: Abdomen is soft. Skin: General: Skin is warm and dry. Neurological: Mental Status: He is alert and oriented to person, place, and time. Review of Systems: Review of Systems Constitutional: Negative. HENT: Negative. Eyes: Negative. Respiratory: Positive for shortness of breath (MATHIS - at baseline). Cardiovascular: Negative. Gastrointestinal: Negative. Genitourinary: Negative. Musculoskeletal: Positive for gait problem. Skin: Positive for wound (incision of sternum, scab on LLE - no s/s of infection). Psychiatric/Behavioral: Negative. Care Plan Goal Progress: Orders Placed: No orders of the defined types were placed in this encounter. Medications Given: Care Gaps: Care Gaps Care gaps closed this contact: Education;Medications;Plan of Care (POC) (08/04/24 1442) Type of education: Clinical/disease (08/04/24 1442) Type of medication care gap: Medication adherence (08/04/24 1442) Type of plan of care (POC) care gap: Education and review of exacerbation plan (08/04/24 1442) documented in this encounter Plan of Treatment Upcoming Encounters Date Type Department Care Team (Late st Contact Info) Description 08/05/2024 10:30 AM EST Telemedicine Cardiac Re[facility], Virtual [address] [place] [address] [place] [address] Advanced, [facility] Card[facility] Re[facility] [address] [place] [address] [place] [address] 08/05/2024 1:00 PM EST Office Visit Family Practice [address] [facility] [place] 293 [place] [address] Leon Galvan, 293 [place] [address] 08/06/2024 12:30 PM EST Home Visit [facility] at [address] [place] [address] Jhoana Fried, RN [address] [place] [address] 08/20/2024 10:45 AM EST Office Visit Cardiothoracic Surg [facility] [address] [place] [address] Jayden Galvan MD [address] [place] [address] 09/02/2024 11:40 AM EST Office Visit Pharmacy, [facility] 132 [facility] [place] [address] [facility] [place] [address] 09/17/2024 8:40 AM EDT Office Visit Family Practice [address] [place] [address] [address] [place] [address] Leon Galvan, [address] [place] [address] 09/18/2024 8:00 AM EDT Office Visit Cardiology, [facility] 132 [facility] [place] [address] Alexandra Mackenzie CRNP 132 [facility] [place] [address] 09/29/2024 9:00 AM EDT [facility] [address] [place] [address] Pito Rodriguez PA-C [address] [place] [address] 10/10/2024 3:30 PM EDT Imaging Radiology [facility] [address] [place] [address] 10/17/2024 9:00 AM EDT Office Visit Urology, [place] [address] [place] [address] Johnathon Kent PA-C [address] [place] [address] 02/06/2025 9:30 AM EDT Office Visit Cardiology, [facility] [address] [place] [place] [address] Poncho Robledo DO [address] [place] [address] Health Maintenance Due Date Last Done Comments [...] this encounter Medical Devices Implanted Type Area Mixed Livestock Farm Worker Device Identifier Shelf Expiration Date Model / Serial / Lot Lead Kit Trial [id number] 50cm - [id number] - [id number] Implanted:Qty: 1 on 05/08/2024 by Maged Monreal DO at OR [facility] Left: Back [employer] : PAIN MGMT 03/18/2026 [id number] 50E0 / [id number] / Lead Kit Trial [id number] 50cm - [id number] - [id number] Implanted:Qty: 1 on 05/08/2024 by Maged Monreal DO at OR [facility] Right: Back [employer] : PAIN MGMT 03/18/2026 [id number] 50E0 / [id number] / Suture Steel 6 B&S19 M654g - [id number] Implanted:Qty: 1 on 07/08/2024 by Jayden Galvan MD [place] [facility] [place]/A: Sternum JNJ : [employer] 03/08/2029 M654G / / 103BLE Marker Coronary - [id number] Implanted:Qty: 1 on 07/08/2024 by Jayden Galvan MD [place] [facility] [place]/A: Heart [employer] 05/08/2027 [facility] / / [id number] Marker Coronary - [id number] Implanted:Qty: 1 on 07/08/2024 by Jayden Galvan MD [place] [facility] [place]/A: Heart [employer] 06/07/2027 [facility] / / [id number] documented as of this encounter Advance Directives * Full Code (Latest Code Status on File) Date Activated Date Inactivated Comments 07/08/2024 12:14 PM 07/15/2024 5:39 PM This order reflects the patients wishes and were consensually agreed upon. Question Answer Comments Discussion of Advance Directives occurred with: Patient Care Teams Prom Burn Off Operator Relationship Specialty Start Date End Date Leon Galvan DO [address] [place] [address] PCP - General Internal Medicine 12/28/23 documented as of this encounter
--- OUTSIDE RECORDS SUMMARY | 2024-08-28 23:26 | External Medical Summary | Summary of Care ---
Author Name Unknown Organization [facility] Address [address] [place] [address] Phone [phone] Care Team Providers Care Retail Performance Coach Name Role Phone Leon Galvan DO Primary Care Provider [phone] Reason for Visit * Reason Onset Date Comments Test Results 08/04/202408/04 Encounter Details Date Type Department Care Team (Late st Contact Info) Description 08/04/2024 Telephone Family Practice [address] [place] [address] [place] [address] Leon Galvan DO [address] [place] [address] Test Results (08/04) Allergies Active Allergy Reactions Criticality Noted Date Comments Codeine Other (Please comment) High 09/08/2013 Severe Skin peeling documented as of this encounter (statuses as of 08/04/2024) Medications oxygen GASIndications: Chronic coronary artery disease,COPD, [...] 4 07/08/2024 Coronary artery disease invo lving [place] coronary artery of [place] heart with unstable angina pectoris 07/03/2024 Vitamin [...] h autonomic neuropathy 08/17/2023 09/17/2023 Atherosclerosis of [place] co ronary artery without angina pectoris 08/17/2023 [...] for ages 0-17 years) Not on file 01 /07/2024 Food Insecurity Answer Date Recorded Do you [...] Telephone Encounter - Keyonna Triana LPN - 08/04/2024 12:06 PM EST Call placed to patient and relayed information from Dr. Galvan. Pt states he has not been taking Vitamin B12 on a regular basis. Pts was present when I spoke to him and states she will make surehe takes the B12. Agreeable to repeat labs in 1 month. Lab orders pended. * Telephone Encounter - Keyonna Triana LPN - 08/04/2024 12:01 PM EST ----- Message from Leon Galvan DO sent at 08/03/2024 11:42 AM EST ----- Kidney function is stable. Thyroid function is slightly abnormal. AST and ALT are up slightly B12 is OK Make sure he is taking 12 Repeat CMP, and TSH with reflex t4 in 1 month documented in this encounter Plan of Treatment Upcoming Encounters Date Type Department Care Team (Late st Contact Info) Description 08/05/2024 10:30 AM EST Telemedicine [facility] [address] [place] [address] [place] [address] [facility] [address] [place] [address] [place] [address] 08/05/2024 1:00 PM EST Office Visit Family Practice [address] [place] [address] [address] [facility] [phone] Leon Galvan, DO 293 [facility] [place] [address] 08/06/2024 12:30 PM EST [facility] [address] [facility] [place] [address] Jhoana Fried RN 132 [facility] [place] [address] 08/20/2024 10:45 AM EST Office Visit Cardiothoracic Surg [facility] [address] [place] [address] Jayden Galvan MD [address] [place] [address] 09/02/2024 11:40 AM EST Office Visit Pharmacy, [facility] [address] [facility] [place] [address] [facility] 132 [facility] [place] [address] 09/17/2024 8:40 AM EDT Office Visit Family Practice [address] [place] [address] 293 [facility] [phone] Leon Galvan, DO 293 [facility] [place] [address] 09/18/2024 8:00 AM EDT Office Visit Cardiology, [facility] [address] [facility] [place] [address] Alexandra Mackenzie CRNP [address] [facility] [place] [address] 09/29/2024 9:00 AM EDT [facility] Visit [facility] [place] [address] [place] [address] Pito Rodriguez PA-C [address] [place] [address] 10/10/2024 3:30 PM EDT Imaging Radiology [facility] [address] [place] [id number] 10/17/2024 9:00 AM EDT Office Visit Urology, [place] [address] [place] [address] Johnathon Kent PA-C [address] [place] [address] 02/06/2025 9:30 AM EDT Office Visit Cardiology, [facility] [address] [place] [address] Poncho Robledo DO [address] [place] [address] Scheduled Orders Name Type Priority Associated Diagnoses Orde r Schedule COMPREHENSIVE METABOLIC PANEL Lab Routine Elevated AST (SGOT) Elevated ALT measurement Expected: 09/04/2024 (Approximate), Expires: 08/04/2025 TSH WITH FREE T4 IF INDICATED Lab Routine Abnormal TSH Expected: 09/04/2024 (Approximate), Expires: 08/04/2025 Health Maintenance Due Date Last Done Comments [...] this encounter Medical Devices Implanted Type Area Design Inserter Device Identifier Shelf Expiration Date Model / Serial / Lot Lead Kit Trial [id number] 50cm - [id number] - [id number] Implanted:Qty: 1 on 05/08/2024 by Maged Monreal DO at OR [facility] Left: Back [employer] : PAIN MGMT 03/18/2026 [id number] 50E0 / [id number] / Lead Kit Trial [id number] 50cm - [id number] - [id number] Implanted:Qty: 1 on 05/08/2024 by Maged Monreal DO at OR [facility] Right: Back [employer] : PAIN MGMT 03/18/2026 [id number] 50E0 / [id number] / Suture Steel 6 B&S19 M654g - [id number] Implanted:Qty: 1 on 07/08/2024 by [place] Galvan [place] [facility] [place]: Sternum JNJ : [employer] 03/08/2029 M654G / / [id number] Marker Coronary - [id number] Implanted:Qty: 1 on 07/08/2024 by Jayden Galvan MD [place] [facility] [place]: Heart [employer] 05/08/2027 AM-SD / / [id number] Marker Coronary - [id number] Implanted:Qty: 1 on 07/08/2024 by Jayden Galvan MD [place] [facility] [place]/A: Heart [employer] 06/07/2027 [facility] / / [id number] documented as of this encounter Visit Diagnoses Diagnosis Elevated AST (SGOT)- Primary Nonspecific elevation of levels of transaminase or lactic acid dehydrogenase (LDH) Elevated ALT measurement Nonspecific elevation of levels of transaminase or lactic acid dehydrogenase (LDH) Abnormal TSH Other abnormal clinical finding documented in this encounter Advance Directives * Full Code (Latest Code Status on File) Date Activated Date Inactivated Comments 07/08/2024 12:14 PM 07/15/2024 5:39 PM This order reflects the patients wishes and were consensually agreed upon. Question Answer Comments Discussion of Advance Directives occurred with: Patient Care Teams Retail Performance Coach Relationship Specialty Start Date End Date Leon Galvan DO [address] [facility] [place] [address] PCP - General Internal Medicine 12/28/23 documented as of this encounter
[2024-08-29 08:14] LABS: BUN Creatinine Ratio 24.7 (10-20); Calcium 8.4 mg/dl (8.6-10.3); Creatinine Clr Calc Pharmacy 39.1 ml/min
[2024-08-29] MEDS: ROSUVASTATIN CALCIUM 20 MG TAB PO SCH (09:00)
[2024-08-29] MEDS: PANTOprazole 40 MG TAB PO SCH (09:00)
[2024-08-29] MEDS: CLOPIDOGREL BISULFATE 75 MG TAB PO SCH (09:00)
[2024-08-29] MEDS: EZETIMIBE 10 MG TAB PO SCH (09:00)
[2024-08-29] MEDS: AMIODARONE 200 MG TAB PO SCH (09:00)
[2024-08-29] MEDS: TAMSULOSIN HCL 0.4 MG CAP PO SCH (11:37)
[2024-08-29] MEDS: FINASTERIDE 5 MG TAB PO SCH (11:37)
--- NOTE | 2024-08-29 13:18 | Cardiology Consultation ---
Date of Consultation August 29, 2024 Assessment & Plan (1) Orthostatic syncope: (2) Chronic heart failure with reduced ejection fraction (HFrEF, <= 40%): (3) CAD (coronary artery disease): (4) Ischemic cardiomyopathy: (5) Contusion of right shoulder: Plan Assessment: 74 year old male admitted of several days of orthostatic dizziness and one episode of syncope. Recent CABG. Cardiology requested for further evaluation. Plan: 1. Orthostatic syncope 2. Chronic HFrEF 3. CAD 4. Ischemic cardiomyopathy -patient with recent 4 vessel CABG as outlined in the HPI with post operative hypotension as well as poorly tolerated A-fib/flutter -He endorses good appetite and hydration, but does report weight loss. -EKG today shows SR, but there is a prolonged QT interval > 520ms. Patient is 2 months to the day from his CABG. We will discontinue Amiodarone in light of prolonged QT and hypotensive concerns. Continue to monitor on telemetry. -Orthostatic VS in ER were a soft positive. -Continue low dose Coreg, Patient will remain off SIMA-I/ARB/ARNI at this time -Euvolemic on exam, continue to hold maintenance dose of Furosemide today, will re-evaluate in the AM -Other contributing factors for his Hypotension is dual BPH therapies (Proscar and Flomax). This will need to be addressed by urology as he had a recent hospitalization for fall and urinary retention requiring a rowell catheter. -Most recent echo on chart from Jul 2024 (post revascularization) shows slight improvement in LVEF. -Recommend repeat orthostatics in AM 5. Contusion of right shoulder: -No fracture or other acute findings noted on imaging, further management by primary team We will continue to follow. Case has been discussed with Dr. Robledo. Further recommendations regarding plan of care as per his assessment. I spent a total of 40 minutes on the date of service in preparation, delivery, documentation of the care provided to the patient excluding any time spent in the performance of separately billed services. LIZZETTE Anderson [facility] Cardiology [facility] Supervising Physician Co-Signing Physician Notes I have personally performed a history and physical examination on the patient. I have reviewed the advance practitioner's documentation, and I agree with, and take responsibility for the plan of care. 74-year-old male present to the emergency department with syncope. Patient reports standing up to walk to his kitchen, after approximately 3 steps he became acutely lightheaded and passed out on the kitchen floor. Right shoulder contusion noted. Notes positional lightheadedness primarily when changing from seated to standing since his recent cardiothoracic surgery. Maintained on low- dose carvedilol, however, no other antihypertensive agents or GDMT. I suspect s ymptoms related to orthostatic intolerance, volume depletion, exacerbated by current medications including carvedilol, Flomax, and possibly amiodarone. Prolonged QTc noted on ECG. No dysrhythmia on telemetry since admission. Recommendations: * Encourage oral hydration, avoid IV fluids currently due to ICM * Discontinue amiodarone * Hold tamsulosin * Cautiously continue low-dose carvedilol at this time * Remain off SIMA-I/ARB/ARNI due to hypotension * Continue telemetry monitoring during hospitalization. Poncho Robledo DO, [facility] I spent a total of 35 minutes on the date of service in preparation, delivery, and documentation of the care provided to this patient, excluding any time spent in the performance of separately billed services. History of Present Illness Reason for Consultation: Syncope, recent CABG Requesting Physician: Jerardo henry Attending Physician: Juan Carlos Brink MD History of Present Illness HPI: Patient is a 74 year old male with PMHx as noted below that presents to the ER after an acute syncopal event. Patient states that he has been having several days of lightheadedness/near syncope with sudden position changes, but today he had gotten up off the couch too quickly, and was walking into the kitchen to get a drink when he synopsized. Of note, patient had been seen in the office by the undersigned in June 2024 with ongoing persistent chest pain/ angina episodes. He was recommended for cardiac cath (06/25/24) which demonstrated severe multi-vessel CAD. He ultimately underwent CABG 4 vessel (CAN-LAD, SVG to Diag, OM, PDA) with Dr. Galvan on 06/28/2024. Patient had A-fib with RVR which was not tolerated well. He was loaded with Amiodarone and discharged with PO dosing. patient has also experienced post-operative HTN and many medications were held upon discharge. 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 Cardiac Problems: 1. ASCVD a. Ischemic cardiomyopathy, LVEF less than 40% on recent echo b. CAD, status post multiple PCIs to the LAD, dating back to 10/08/2004, on ASA and Prasugrel. 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 DSE negative for ischemia 2016-- known fixed WMA Abnormal cardiac cath 06/25/2024 demonstrating severe multivessel coronary disease, and underwent CABG x4 on 06/28/2024 (CAN-LAD, SVG to DIAG, OM, PDA) ii. Nonischemic nuclear stress 07/2023, positive for infarct--no deepali-infarct ischemia 2. Hypertension 3. Hyperlipidemia 4. Diabetes 5. COPD 6. Diabetic gastroparesis 7. 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 Ongoing tobacco use 10. Lumbar radiculopathy with normal exercise ABIs 07/2018 11. History of medication noncompliance 12. Strong family history of premature CAD 13. CVA EKG on admission shows NSR, LVH, anterolateral infarct (previously cited). Prolonged QT 524ms. Rate 67bpm last EKG 08/06/2024--QTC interval 450ms High sensitivity troponin 16.6/20.3 Upon seeing patient today, He is resting comfortably in bed without complaint. Continues with a moist cough, reports that this is not new for him and denies any recent URI symptoms. He denies any new med changes since his discharge from [facility], but has lost some weight. Endorses good appetite and feels that he is staying hydrated. Patient denies striking his head with his syncopal episode. CT imaging is negative. Orthostatic vs obtained in ER, soft positive. Denies any chest pain, pressure, palpitations, shortness of breath, PND, or edema. Allergies Allergy/AdvReac Type Severity Reaction Status Date / Time codeine Allergy Mild "SKIN Verified 06/25/24 09:05 STARTS FALLING OFF" Home Medications Medication Instructions Recorded Confirmed Type bupropion HCl 150 mg tablet,12 hr 150 mg PO BID 01/13/19 08/28/24 History sustained-release dutasteride 0.5 mg capsule 0.5 mg PO QDL 01/13/19 08/28/24 History ezetimibe 10 mg tablet 10 mg PO QAM 01/13/19 08/28/24 History nitroglycerin 0.4 mg sublingual 0.4 mg sublingual UD PRN Angina 01/13/19 08/28/24 History tablet ropinirole 0.5 mg tablet 0.5 mg PO HS 01/13/19 08/28/24 History rosuvastatin 40 mg tablet 40 mg PO QAM 01/13/19 08/28/24 History buspirone 5 mg tablet 5 mg PO BID 07/27/20 08/28/24 History famotidine 20 mg tablet 20 mg PO DAILY PRN Heartburn 10/17/22 08/28/24 History mirtazapine 15 mg tablet 15 mg PO HS 10/17/22 08/28/24 History clopidogrel 75 mg tablet 75 mg PO QAM #30 tabs 12/21/22 08/28/24 Rx amiodarone 200 mg tablet 200 mg PO QDB 08/06/24 08/28/24 History carvedilol 3.125 mg tablet 3.125 mg PO AMPM 08/06/24 08/28/24 History cyanocobalamin (vitamin B-12) 1,000 mcg sublingual QAM 08/06/24 08/28/24 History 1,000 mcg sublingual tablet furosemide 40 mg tablet 40 mg PO QAM 08/06/24 08/28/24 History pantoprazole 40 mg tablet,delayed 40 mg PO QAM 08/06/24 08/28/24 History release (Protonix) potassium chloride 10 mEq 20 meq PO QAM 08/06/24 08/28/24 History tablet,extended release(part/cryst) pregabalin 75 mg capsule 75 mg PO AMHS 08/06/24 08/28/24 History tamsulosin 0.4 mg capsule 0.4 mg PO QDL 08/06/24 08/28/24 History apixaban 5 mg tablet (Eliquis) 5 mg PO AMHS 08/28/24 08/28/24 History Patient History Medical History Hx of gout On anticoagulant therapy effient daily Restless leg syndrome Hypertension Hyperlipidemia 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 Box Sleep apnea oxygen--2L N/C Chronic obstructive pulmonary disease Asthma Surgical History History of bilateral cataract extraction History of cystoscopy History of lumbosacral spine surgery History of colonoscopy History of esophagogastroduodenoscopy (EGD) History of appendectomy History of tooth extraction all teeth History of tonsillectomy History of heart artery stent TOTAL OF 4 STENTS PLACED DURING 4 CATH PROCEDURES; last 2016 History of cardiac cath multiple--last 2016, [facility] Family History Sister Family history of diabetes mellitus Other No family history of adverse response to anesthesia Social History Smoking Status: Never smoker Tobacco Type: Cigarettes Cigarettes Per Day: 4; Second Hand Exposure: Yes; Do You Dip or Chew Tobacco: No; Hx Alcohol Use: No Hx Substance Use: No Preferred Language: Azeri Communication Ability: Effective Piece Hand Required: No Beliefs That Will Affect Care: None marital status: Current Living Situation: Family Current Living Situation Comment: and brother in law Feels Safe at Home: Yes Assistive Devices: None Review of Systems Review of Systems: All systems reviewed & are unremarkable except as noted in HPI & below Physical Exam Constitutional: + thin; no acute distress and not ill ap pearing Neck: normal visual inspection and trachea midline Respiratory: normal respiratory effort, lungs clear to auscultation + cough (patient reports chronic) Auscultation: no crackles, no rales, no rhonchi and no wheezes Cardiovascular: Rate/Rhythm: regular rate and regular rhythm Heart Sounds: normal S1 and normal S2; no murmur Vessels: dorsalis pedis pulses present; no JVD Skin: no rashes, warm and dry Psychiatric: A+Ox3, euthymic affect Results & Data Vital Signs (Past 12 Hours) Vital Signs Pulse Pulse Resp BP Pulse Ox O2 Del Method 08/29/24 09:06 80 14 08/29/24 08:33 80 19 08/29/24 08:12 70 08/29/24 08:00 100/72 08/29/24 07:36 71 17 08/29/24 07:03 70 13 97 Room Air 08/29/24 07:01 70 08/29/24 06:00 67 18 118/81 96 Room Air 08/29/24 04:00 66 16 99/64 L 96 Room Air 08/29/24 02:30 61 14 96/63 L 95 Room Air Laboratory Results Cardiac Enzymes 08/28/24 08/28/24 Range/Units 15:28 18:44 AST 32 (13-39) U/L Troponin I High Sens 16.6 20.3 H (0-20) pg/ml B-Natriuretic Peptide 116 H (0-100) pg/ml Coagulation 08/28/24 08/28/24 Range/Units 15:28 18:44 PT 10.8 (9.0-12.0) Seconds B-Natriuretic Peptide 116 H (0-100) pg/ml CBC 08/28/24 Range/Units 15: WBC 6.51 (4.8-10.8) K/ul RBC 3.99 L (4.70-6.10) M/uL Hgb 12.9 L (14.0-18.0) g/dl Hct 38.0 L (42.0-52.0) % Plt Count 247 (130-400) K/uL Neut # (Auto) 4.44 (1.40-6.50) K/uL Lymph # (Auto) 1.27 (1.20-3.40) K/uL [place] # (Auto) 0.52 (0.11-0.59) K/uL Eos # (Auto) 0.24 (0.00-0.50) K/uL Baso # (Auto) 0.03 (0.00-0.20) K/uL Comprehensive Metabolic Panel 08/28/24 08/29/24 Range/Units 15:28 07:27 Sodium 142 139 (136-145) mmol/L Potassium 4.3 4.0 (3.5-5.1) mmol/L Chloride 105 107 (98-107) mmol/L Carbon Dioxide 30 27 (21-32) mmol/L BUN 38 H 37 H (6-23) mg/dl Creatinine 1.42 H 1.50 H (0.6-1.4) mg/dl Glucose 149 H 141 H (70-99(Fasting)) mg/dl Calcium 8.8 8.4 L (8.6-10.3) mg/dl AST 32 (13-39) U/L ALT 46 (7-52) U/L Alkaline Phosphatase 100 (34-104) U/L Total Protein 7.2 (6.0-8.3) gm/dl Albumin 4.1 (3.4-5.0) gm/dl Intake and Output 08/28/24 08/29/24 08/29/24 22:59 06:59 14:59 Intake Total Balance Intake: IV 100 / 100 Acetaminophen 1,000 mg In 100 100 / 100 ml @ 400 mls/hr IV NOW STA Rx#: [id number] Oral Other: Weight 64 kg Weight Measurement Method Built in [facility] Diagnostic Findings Echocardiogram 08/07/2024 LV function moderately reduced LVEF 35-40% There is a large sized apical, anteroseptal, anterior, inferior, posterior, and lateral wall motion abnormality with hypokinesis to akinesis of the segments. Small apical laminar thrombus visualized. Mild aortic valvular sclerosis without stenosis Mild TR No findings of pulmonary HTN Echocardiogram 06/30/2024: [email or web address] EPIC Interpretation Summary The qualitative LV ejection fraction is 35-39% (moderately reduced). There is a large sized apical, anteroseptal, anterior, inferior, posterior, and lateral wall motion abnormality with hypokinesis to akinesis of the segments. Small apical laminar thrombus visualized. Mild mitral regurgitation is present. Mild tricuspid regurgitation is present. There is no evidence of pulmonary hypertension. Compared to last available study changes are noted as follows: Left ventricular systolic function has declined, small, apical, laminar thrombus now present. This study has what is deemed to be a "significant abnormality" consistent with ACT 112. See additional documentation regarding notification of patient and ordering provider.
--- NOTE | 2024-08-29 15:53 | Hospitalist Progress Note ---
Date of Service August 29, 2024 Assessment & Plan (1) Orthostatic syncope: (2) Contusion of right shoulder: (3) Chronic heart failure with reduced ejection fraction (HFrEF, <= 40%): (4) Ischemic cardiomyopathy: (5) CAD (coronary artery disease): Plan Patient 74-year-old gentleman presents to the emergency room with acute syncopal event. His history with lightheadedness and near syncopal symptoms with changes in position over the last week to 10 days is highly consistent with orthostatic syncope. Patient is at high risk for recurrent syncopal events and injury at home and needs to be cared for in the hospital. Syncope Likely due to orthostatic hypotension, medications Blood pressure low Recent CABG Avoid IV fluids, encourage oral hydration Amiodarone discontinued Appreciate cardiology input Monitor on telemetry for any arrhythmias Fall precautions Added león Appreciate cardiology input next Resume home Lasix as able Fall Secondary to above No fractures on imaging Fall precautions PT OT CAD Recent CABG Ischemic cardiomyopathy Continue other home medications Amiodarone discontinued per recommendations from cardiology Resume home diuretics as able Monitor volume status BPH Continue home medications Monitor for retention Hyperlipidemia Continue statin GERD Continue PPI Mood disorder Continue home medications COPD No signs of exacerbation Atrial fibrillation Continue Coreg, Eliquis Amiodarone discontinued as above Restless leg syndrome On Requip DVT Px: Eliquis CODE STATUS Full code Disposition PT OT prior to discharge Admission and Anticipated Discharge Date Admission Date: August 28, 2024 Subjective Patient is seen and examined at bedside States having dizziness with positional change Denies any chest pain, dyspnea, nausea, vomiting, abdominal pain Orthostatics positive No other complaints Review of Systems Review of Systems: All systems reviewed & are unremarkable except as noted in Subjective Physical Exam Physical Exam: Physical Exam: Vitals signs as noted above General Appearance: Thin, frail, no apparent distress Head: normocephalic, Atraumatic Eyes: normal inspection, EOMI Neck: supple, Trachea midline Respiratory/Chest: Normal breath sounds, CTA, No accessory muscle use Cardiovascular: S1, S2, No murmur Abdomen/GI:Soft, Non tender, Bowel sounds present Extremities/Musculoskeletal:normal inspection, no edema Neurologic/Psych:AAOX3, grossly no focal neurological deficits Skin: normal color, warm, well-healing CABG scar Results & Data Results & Data Vital Signs (Past 12 Hours) Vital Signs Pulse Pulse Resp BP BP Pulse Ox O2 Del Method 08/29/24 15:49 79 08/29/24 13:32 94/78 L 95 Room Air 08/29/24 13:30 82 20 08/29/24 13:29 124/82 08/29/24 13:26 111/75 08/29/24 13:15 75 17 08/29/24 12:39 71 15 08/29/24 12:00 74 17 08/29/24 12:00 135/87 08/29/24 11:33 78 17 08/29/24 11:03 75 15 08/29/24 10:30 76 14 08/29/24 10:00 77 14 08/29/24 10:00 121/82 08/29/24 09:36 82 17 08/29/24 09:36 118/91 08/29/24 09:34 152/95 H 08/29/24 09:33 77 21 08/29/24 09:06 80 14 08/29/24 08:33 80 19 08/29/24 08:12 70 08/29/24 08:00 100/72 08/29/24 07:36 71 17 08/29/24 07:03 70 13 97 Room Air 08/29/24 07:01 70 08/29/24 06:00 67 18 118/81 96 Room Air 08/29/24 04:00 66 16 99/64 L 96 Room Air Laboratory Results BMP 08/28/24 08/29/24 15:28 07:27 Sodium 142 139 Potassium 4.3 4.0 Chloride 105 107 Carbon Dioxide 30 27 BUN 38 H 37 H Creatinine 1.42 H 1.50 H Glucose 149 H 141 H Calcium 8.8 8.4 L Cardiac Enzymes 08/28/24 Range/Units 15:28 Total Creatine Kinase 51 (30-223) U/L Liver Function 08/28/24 Range/Units 15:28 Total Bilirubin 0.3 (0.2-1.0) mg/dl AST 32 (13-39) U/L ALT 46 (7-52) U/L Alkaline Phosphatase 100 (34-104) U/L Albumin 4.1 (3.4-5.0) gm/dl
[2024-08-29] MEDS: SODIUM CHLORIDE 0.9% 500 ML IV ONE (16:27)
[2024-08-30 06:05] LABS: Hematocrit (blood only) 32.5 % (42.0-52.0); Mean Corpuscular Hemoglobin 31.7 pg (25.0-34.0); Mean Corpuscular Hgb Conc 33.8 g/dL (32.0-36.0); Mean Corpuscular Volume 93.7 fL (80.0-100.0); Mean Platelet Volume 10.7 fL (9.4-12.4); Platelet Count 172 K/uL (130-400); RDW Coefficient of Variation 14.7 % (11.5-14.5); RDW Standard Deviation 50.2 fL (36.4-46.3); Red Blood Count 3.47 M/uL (4.70-6.10); White Blood Count 16.93 K/ul (4.8-10.8)
[2024-08-30 06:16] LABS: Calcium 8.5 mg/dl (8.6-10.3); Creatinine Clr Calc Pharmacy 43.5 ml/min; Potassium 4.1 mmol/L (3.5-5.1)
--- NOTE | 2024-08-30 14:58 | Hospitalist Progress Note ---
Date of Service August 30, 2024 Assessment & Plan (1) Orthostatic syncope: (2) Contusion of right shoulder: (3) Chronic heart failure with reduced ejection fraction (HFrEF, <= 40%): (4) Ischemic cardiomyopathy: (5) CAD (coronary artery disease): Plan Patient 74-year-old gentleman presents to the emergency room with acute syncopal event. His history with lightheadedness and near syncopal symptoms with changes in position over the last week to 10 days is highly consistent with orthostatic syncope. Patient is at high risk for recurrent syncopal events and injury at home and needs to be cared for in the hospital. Syncope Likely due to orthostatic hypotension, medications Blood pressure low Recent CABG Avoid IV fluids, encourage oral hydration Amiodarone discontinued Tamsulosin held Appreciate cardiology input Monitor on telemetry for any arrhythmias Fall precautions Added teds Appreciate cardiology input next Resume home Lasix as able Dizziness resolved PT OT prior to discharge Fall Secondary to above No fractures on imaging Fall precautions PT OT CAD Recent CABG Ischemic cardiomyopathy Continue other home medications Amiodarone discontinued per recommendations from cardiology Resume home diuretics as able Monitor volume status BPH Tamsulosin held Continue Proscar Bladder scan as needed Monitor for ANY retention Hyperlipidemia Continue statin GERD Continue PPI Mood disorder Continue home medications COPD No signs of exacerbation Atrial fibrillation Continue Coreg, Eliquis Amiodarone discontinued as above Restless leg syndrome On Requip DVT Px: Eliquis CODE STATUS Full code Disposition PT OT prior to discharge Admission and Anticipated Discharge Date Admission Date: August 28, 2024 Subjective Patient is seen and examined at bedside Dizziness much improved today Offers no new complaints Denies any chest pain, dyspnea, nausea, vomiting, abdominal pain Review of Systems Review of Systems: All systems reviewed & are unremarkable except as noted in Subjective Physical Exam Physical Exam: Physical Exam: Vitals signs as noted above General Appearance: Thin, frail, no apparent distress Head: normocephalic, Atraumatic Eyes: normal inspection, EOMI Neck: supple, Trachea midline Respiratory/Chest: Normal breath sounds, CTA, No accessory muscle use Cardiovascular: S1, S2, No murmur Abdomen/GI:Soft, Non tender, Bowel sounds present Extremities/Musculoskeletal:normal inspection, no edema Neurologic/Psych:AAOX3, grossly no focal neurological deficits Skin: normal color, warm, well-healing CABG scar Results & Data Results & Data Vital Signs (Past 12 Hours) Vital Signs Temp Pulse Pulse Resp BP BP BP 08/30/24 11:59 36.4 C L 66 18 102/68 08/30/24 11:13 08/30/24 09:25 36.9 C 72 18 106/69 08/30/24 08:22 36.9 C 72 18 106/69 08/30/24 07:25 72 08/30/24 03:17 36.5 C 71 18 97/66 L Pulse Ox O2 Del Method 08/30/24 11:59 94 Room Air 08/30/24 11:13 Room Air 08/30/24 09:25 94 Room Air 08/30/24 08:22 94 Room Air 08/30/24 07:25 08/30/24 03:17 93 Room Air Laboratory Results Short CBC 08/30/24 Range/Units 05:39 WBC 16.93 H (4.8-10.8) K/ul Hgb 11.0 L (14.0-18.0) g/dl Hct 32.5 L (42.0-52.0) % Plt Count 172 (130-400) K/uL BMP 08/30/24 05:39 Sodium 138 Potassium 4.1 Chloride 104 Carbon Dioxide 28 BUN 31 H Creatinine 1.35 Glucose 106 H Calcium 8.5 L
[2024-08-31 05:45] LABS: Hematocrit (blood only) 31.8 % (42.0-52.0); Hemoglobin 10.6 g/dl (14.0-18.0); Mean Corpuscular Hemoglobin 31.5 pg (25.0-34.0); Mean Corpuscular Hgb Conc 33.3 g/dL (32.0-36.0); Mean Corpuscular Volume 94.6 fL (80.0-100.0); Mean Platelet Volume 11.1 fL (9.4-12.4); Platelet Count 164 K/uL (130-400); RDW Coefficient of Variation 14.5 % (11.5-14.5); RDW Standard Deviation 50.4 fL (36.4-46.3); Red Blood Count 3.36 M/uL (4.70-6.10); White Blood Count 10.13 K/ul (4.8-10.8)
[2024-08-31 05:57] LABS: BUN Creatinine Ratio 23.7 (10-20); Calcium 8.5 mg/dl (8.6-10.3); Creatinine Clr Calc Pharmacy 42.4 ml/min; Potassium 4.3 mmol/L (3.5-5.1)
[2024-08-31] MEDS: MIDODRINE HCL 2.5 MG TAB PO SCH (12:53)
--- NOTE | 2024-08-31 14:52 | Hospitalist Progress Note ---
Date of Service August 31, 2024 Assessment & Plan (1) Orthostatic syncope: (2) Contusion of right shoulder: (3) Chronic heart failure with reduced ejection fraction (HFrEF, <= 40%): (4) Ischemic cardiomyopathy: (5) CAD (coronary artery disease): Plan Patient 74-year-old gentleman presents to the emergency room with acute syncopal event. His history with lightheadedness and near syncopal symptoms with changes in position over the last week to 10 days is highly consistent with orthostatic syncope. Patient is at high risk for recurrent syncopal events and injury at home and needs to be cared for in the hospital. Syncope Likely due to orthostatic hypotension, medications Blood pressure low Recent CABG Avoid IV fluids, encourage oral hydration Amiodarone, Tamsulosin discontinued Appreciate cardiology input Monitor on telemetry for any arrhythmias Fall precautions Added teds Appreciate cardiology input next Resume home Lasix as able PT OT prior to discharge Started on midodrine, adjust dose as needed Fall Secondary to above No fractures on imaging Fall precautions PT OT CAD Recent CABG Ischemic cardiomyopathy Continue other home medications Amiodarone discontinued per recommendations from cardiology Resume home diuretics as able Monitor volume status BPH Tamsulosin held Continue Proscar Bladder scan as needed Monitor for any retention Hyperlipidemia Continue statin GERD Continue PPI Mood disorder Continue home medications COPD No signs of exacerbation Atrial fibrillation Continue Coreg, Eliquis Amiodarone discontinued as above Restless leg syndrome On Requip DVT Px: Eliquis CODE STATUS Full code Disposition PT OT prior to discharge Admission and Anticipated Discharge Date Admission Date: August 28, 2024 Subjective Patient is seen and examined at bedside Patient had significant orthostasis today No recurrence of dizziness when asked Had PT evaluation today Offers no new complaints today Denies any chest pain, dyspnea, nausea, vomiting, abdominal pain Review of Systems Review of Systems: All systems reviewed & are unremarkable except as noted in Subjective Physical Exam Physical Exam: Physical Exam: Vitals signs as noted above General Appearance: Thin, frail, no apparent distress Head: normocephalic, Atraumatic Eyes: normal inspection, EOMI Neck: supple, Trachea midline Respiratory/Chest: Normal breath sounds, CTA, No accessory muscle use Cardiovascular: S1, S2, No murmur Abdomen/GI:Soft, Non tender, Bowel sounds present Extremities/Musculoskeletal:normal inspection, no edema Neurologic/Psych:AAOX3, grossly no focal neurological deficits Skin: normal color, warm, well-healing CABG scar Results & Data Results & Data Vital Signs (Past 12 Hours) Vital Signs Temp Pulse Pulse Resp BP Pulse Ox O2 Del Method 08/31/24 11:42 36.8 C 66 18 115/75 96 Room Air 08/31/24 11:09 Room Air 08/31/24 07:59 36.9 C 71 18 124/80 94 Room Air 08/31/24 07:25 72 08/31/24 04:24 36.7 C 82 18 104/72 93 Room Air Laboratory Results Short CBC 08/31/24 Range/Units 05:15 WBC 10.13 (4.8-10.8) K/ul Hgb 10.6 L (14.0-18.0) g/dl Hct 31.8 L (42.0-52.0) % Plt Count 164 (130-400) K/uL BMP 08/31/24 05:15 Sodium 136 Potassium 4.3 Chloride 103 Carbon Dioxide 29 BUN 33 H Creatinine 1.39 Glucose 106 H Calcium 8.5 L
[2024-09-01 07:23] LABS: Hematocrit (blood only) 32.9 % (42.0-52.0); Hemoglobin 10.9 g/dl (14.0-18.0); Mean Corpuscular Hemoglobin 31.1 pg (25.0-34.0); Mean Corpuscular Hgb Conc 33.1 g/dL (32.0-36.0); Mean Corpuscular Volume 93.7 fL (80.0-100.0); Mean Platelet Volume 11.3 fL (9.4-12.4); Platelet Count 159 K/uL (130-400); Red Blood Count 3.51 M/uL (4.70-6.10); White Blood Count 4.48 K/ul (4.8-10.8)
[2024-09-01 07:50] VITALS: RESP 20; TEMP 97.7
[2024-09-01 08:28] LABS: Calcium 8.5 mg/dl (8.6-10.3); Potassium 4.4 mmol/L (3.5-5.1)
[2024-09-01 08:34] LABS: BUN Creatinine Ratio 18.4 (10-20); Creatinine Clr Calc Pharmacy 41.7 ml/min
[2024-09-01 12:33] VITALS: PULSE 65; O2SAT 98
--- NOTE | 2024-09-01 12:59 | Hospitalist Progress Note ---
Date of Service September 01, 2024 Assessment & Plan (1) Orthostatic syncope: (2) Contusion of right shoulder: (3) Chronic heart failure with reduced ejection fraction (HFrEF, <= 40%): (4) Ischemic cardiomyopathy: (5) CAD (coronary artery disease): Plan Patient 74-year-old gentleman presents to the emergency room with acute syncopal event. His history with lightheadedness and near syncopal symptoms with changes in position over the last week to 10 days is highly consistent with orthostatic syncope. Patient is at high risk for recurrent syncopal events and injury at home and needs to be cared for in the hospital. Syncope Likely due to orthostatic hypotension, medications Blood pressure low Recent CABG Avoid IV fluids, encourage oral hydration Amiodarone, Tamsulosin discontinued Appreciate cardiology input Monitor on telemetry for any arrhythmias Fall precautions Added teds Appreciate cardiology input next Resume home Lasix as able at reduced dose 20mg daily PT OT prior to discharge Started on midodrine, adjust dose as needed Fall Secondary to above No fractures on imaging Fall precautions PT OT: Patient prefers to be discharged home CAD Recent CABG Ischemic cardiomyopathy Continue other home medications Amiodarone discontinued per recommendations from cardiology Resume home diuretics as able Monitor volume status BPH Tamsulosin held Continue Proscar Bladder scan as needed Monitor for any retention Hyperlipidemia Continue statin GERD Continue PPI Mood disorder Continue home medications COPD No signs of exacerbation Atrial fibrillation Continue Coreg, Eliquis Amiodarone discontinued as above Restless leg syndrome On Requip DVT Px: Eliquis CODE STATUS Full code Disposition Home Admission and Anticipated Discharge Date Admission Date: August 28, 2024 Subjective Patient is seen and examined at bedside No new complaints Dizziness resolved Denies any chest pain, dyspnea, nausea, vomiting, abdominal pain Plan to discharge home today Review of Systems Review of Systems: All systems reviewed & are unremarkable except as noted in Subjective Physical Exam Physical Exam: Physical Exam: Vitals signs as noted above General Appearance: Thin, frail, no apparent distress Head: normocephalic, Atraumatic Eyes: normal inspection, EOMI Neck: supple, Trachea midline Respiratory/Chest: Normal breath sounds, CTA, No accessory muscle use Cardiovascular: S1, S2, No murmur Abdomen/GI:Soft, Non tender, Bowel sounds present Extremities/Musculoskeletal:normal inspection, no edema Neurologic/Psych:AAOX3, grossly no focal neurological deficits Skin: normal color, warm, well-healing CABG scar Results & Data Results & Data Vital Signs (Past 12 Hours) Vital Signs Temp Pulse Pulse Resp BP Pulse Ox O2 Del Method 09/01/24 12:33 36.5 C 65 20 102/69 98 Room Air 09/01/24 09:33 Room Air 09/01/24 07:49 36.5 C 77 20 161/93 H 92 Room Air 09/01/24 05:46 71 09/01/24 04:43 36.8 C 69 16 138/88 93 Room Air Laboratory Results Short CBC 09/01/24 Range/Units 06:39 WBC 4.48 L (4.8-10.8) K/ul Hgb 10.9 L (14.0-18.0) g/dl Hct 32.9 L (42.0-52.0) % Plt Count 159 (130-400) K/uL BMP 09/01/24 06:39 Sodium 137 Potassium 4.4 Chloride 105 Carbon Dioxide 28 BUN 25 H Creatinine 1.36 Glucose 84 Calcium 8.5 L
--- NOTE | 2024-09-01 13:12 | Discharge Summary ---
Date of Service September 01, 2024 Admission HPI Per Admitting Provider Patient is a 74-year-old gentleman who presents to the emergency room with above complaint. Patient has known ejection fraction about 30 to 35% and recently went coronary bypass grafting in June 2024. Patient also had a recent hospitalization for fall and what may have been a near syncopal event at that time. Since he has been home patient states that overall been doing well but for the past 7 to 10 days he has noticed intermittently when he gets up he gets a little lightheaded and dizzy. He has noticed this when he gets up and walks back to his bedroom or walks back to the kitchen after he has been sitting or laying down for a while. Today he was sitting on the couch he quickly got up and was walking into the kitchen to get a drink where he passed out. Brought to the emergency room for evaluation. In the emergency room blood pressure has been running on a little bit of the lower side. Orthostatic vital signs have not yet been performed. Rest of his workup is unremarkable. Head CT shows no acute changes, shoulder x-ray no acute trauma.His creatinine is slightly increased from his most recent reading but appears to be somewhat within his baseline. On his last hospitalization the patient did have some issues with urinary retention. He went home with a Bejarano catheter. He says been subsequently removed and he has been urinating without any difficulties. He states has been eating and drinking well. No chest pain, no shortness of breath, no palpitations. He did have some brief post operative atrial fibrillation after his CABG. He is on amiodarone for rhythm control and Eliquis for secondary stroke prevention. He states he has been moving his bowels without any difficulty. Has not noticed any swelling in his hands arms legs or feet. Admission Exam Per Admitting Provider Constitutional: Alert, nontoxic, no acute distress HEENT: Mucous membranes moist. Sclera clear Neck: Soft, no adenopathy Lungs: Clear to auscultation, decreased, no wheezes rales or rhonchi CV: S1-S2, regular Abdomen: Soft, nontender, nondistended Extremities: No significant edema Musculoskeletal: No significant joint tenderness Neuro: No focal deficits Psych: Cooperative, normal mood Principal Diagnosis Syncope Orthostatic hypotension Fall Discharge Data Allergies Allergy/AdvReac Type Severity Reaction Status Date / Time codeine Allergy Mild "SKIN Verified 06/25/24 09:05 STARTS FALLING OFF" Consultations 08/28/24 17:55 ED Decision to Admit Stat 08/29/24 11:33 Consult Cardiology Routine Procedures Performed Laboratory Results WBC 4.48 K/ul (4.8-10.8) L 09/01/24 06:39 RBC 3.51 M/uL (4.70-6.10) L 09/01/24 06:39 Hgb 10.9 g/dl (14.0-18.0) L 09/01/24 06:39 Hct 32.9 % (42.0-52.0) L 09/01/24 06:39 MCV 93.7 fL (80.0-100.0) 09/01/24 06:39 MCH 31.1 pg (25.0-34.0) 09/01/24 06:39 MCHC 33.1 g/dL (32.0-36.0) 09/01/24 06:39 RDW Std Deviation 48.0 fL (36.4-46.3) H 09/01/24 06:39 RDW Coeff of Lakesha 14.0 % (11.5-14.5) 09/01/24 06:39 Plt Count 159 K/uL (130-400) 09/01/24 06:39 MPV 11.3 fL (9.4-12.4) 09/01/24 06:39 Immature Gran % (Auto) 0.2 % 08/28/24 15:28 Neut % (Auto) 68.1 % 08/28/24 15:28 Lymph % (Auto) 19.5 % 08/28/24 15:28 Desha % (Auto) 8.0 % 08/28/24 15:28 Eos % (Auto) 3.7 % 08/28/24 15:28 Baso % (Auto) 0.5 % 08/28/24 15:28 Neut # (Auto) 4.44 K/uL (1.40-6.50) 08/28/24 15:28 Lymph # (Auto) 1.27 K/uL (1.20-3.40) 08/28/24 15:28 Desha # (Auto) 0.52 K/uL (0.11-0.59) 08/28/24 15:28 Eos # (Auto) 0.24 K/uL (0.00-0.50) 08/28/24 15:28 Baso # (Auto) 0.03 K/uL (0.00-0.20) 08/28/24 15:28 Immature Gran # (Auto) 0.01 K/uL (0.01-0.20) 08/28/24 15:28 PT 10.8 Seconds (9.0-12.0) 08/28/24 15:28 INR 1.0 (0.9-1.1) 08/28/24 15:28 Sodium 137 mmol/L (136-145) 09/01/24 06:39 Potassium 4.4 mmol/L (3.5-5.1) 09/01/24 06:39 Chloride 105 mmol/L (98-107) 09/01/24 06:39 Carbon Dioxide 28 mmol/L (21-32) 09/01/24 06:39 Anion Gap 4 (3-11) 09/01/24 06:39 BUN 25 mg/dl (6-23) H 09/01/24 06:39 Creatinine 1.36 mg/dl (0.6-1.4) 09/01/24 06:39 Est Cr Clr Drug Dosing 41.7 ml/min 09/01/24 06:39 eGFR 54.61 09/01/24 06:39 BUN/Creatinine Ratio 18.4 (10-20) 09/01/24 06:39 Glucose 84 mg/dl (70-99(Fasting)) 09/01/24 06:39 Calcium 8.5 mg/dl (8.6-10.3) L 09/01/24 06:39 Magnesium 2.2 mg/dl (1.7-2.4) 08/28/24 15:28 Total Bilirubin 0.3 mg/dl (0.2-1.0) 08/28/24 15:28 AST 32 U/L (13-39) 08/28/24 15:28 ALT 46 U/L (7-52) 08/28/24 15:28 Alkaline Phosphatase 100 U/L (34-104) 08/28/24 15:28 Total Creatine Kinase 51 U/L (30-223) 08/28/24 15:28 Troponin I High Sens 20.3 pg/ml (0-20) H 08/28/24 18:44 B-Natriuretic Peptide 116 pg/ml (0-100) H 08/28/24 18:44 Total Protein 7.2 gm/dl (6.0-8.3) 08/28/24 15:28 Albumin 4.1 gm/dl (3.4-5.0) 08/28/24 15:28 Globulin 3.1 gm/dl (2.5-4.0) 08/28/24 15:28 Albumin/Globulin Ratio 1.3 (0.9-2) 08/28/24 15:28 Lipase 38 U/L (11-82) 08/28/24 15:28 TSH 3.243 uIu/ml (0.300-4.500) 08/28/24 15:28 Impressions Shoulder X-Ray 08/28/24 15:33 XR shoulder RT min 2V routine CLINICAL HISTORY: R shoulder pain s/p fall COMPARISON: None FINDINGS: 3 views of the right shoulder demonstrate no acute traumatic osseous or articular injury. There is no fracture or dislocation. There is osteoarthritic change at the acromioclavicular joint with undersurface bony spurring. There is no periarticular calcification. IMPRESSION: No acute traumatic injury. ACT 112: Negative or not required by law. Electronically signed by: Jhoana Avalos M.D. 08/28/2024 3:58 PM Chest X-Ray 08/28/24 15:34 XR chest 1V portable CLINICAL HISTORY: syncope COMPARISON STUDY: 08/06/2024 FINDINGS: Single view portable chest demonstrates no acute cardiopulmonary process. There is no infiltrate or pleural effusion. No pneumothorax. The heart is mildly enlarged. Is evidence of prior coronary artery bypass surgery. The pulmonary vascularity is unremarkable. There is a nipple shadow left lower lobe. The previously suspected left midlung nodule was not reproducible. IMPRESSION: No acute process ACT 112: Negative or not required by law. Electronically signed by: Jhoana Avalos M.D. 08/28/2024 3:[address] 08/28/24 15:34 Clinical History: Syncope. Technique: Axial computed tomography images were obtained of the brain from the vertex to the skull base without intravenous contrast. Comparison is made to the prior CT dated 08/06/2024 Findings: There is no sign of intracranial hemorrhage. There is normal andersen-white matter differentiation with no sign of acute or old infarction. No midline shift or other form of herniation is identified. There is no hydrocephalus. No obvious mass lesion is seen on this noncontrast examination. The visualized portions of the orbits and paranasal sinuses appear unremarkable. The mastoid air cells appear clear Impression: Unremarkable noncontrast CT of the brain Electronically signed by Jeff Copeland 08-28-2024 4:38 PM Ordered Studies 08/28/24 15:34 CT head/brain wo con Stat Hospital Course (1) Orthostatic syncope: (2) Contusion of right shoulder: (3) Chronic heart failure with reduced ejection fraction (HFrEF, <= 40%): (4) Ischemic cardiomyopathy: (5) CAD (coronary artery disease): Plan Patient 74-year-old gentleman presents to the emergency room with acute syncopal event. His history with lightheadedness and near syncopal symptoms with changes in position over the last week to 10 days is highly consistent with orthostatic syncope. Patient is at high risk for recurrent syncopal events and injury at home and needs to be cared for in the hospital. Syncope Likely due to orthostatic hypotension, medications Blood pressure low Recent CABG Avoid IV fluids, encourage oral hydration Amiodarone, Tamsulosin discontinued Appreciate cardiology input Monitor on telemetry for any arrhythmias Fall precautions Added teds Appreciate cardiology input next Resume home Lasix as able at reduced dose 20mg daily PT OT prior to discharge Started on midodrine, adjust dose as needed Fall Secondary to above No fractures on imaging Fall precautions PT OT: Patient prefers to be discharged home CAD Recent CABG Ischemic cardiomyopathy Continue other home medications Amiodarone discontinued per recommendations from cardiology Resume home diuretics as able Monitor volume status BPH Tamsulosin held Continue Proscar Bladder scan as needed Monitor for any retention Hyperlipidemia Continue statin GERD Continue PPI Mood disorder Continue home medications COPD No signs of exacerbation Atrial fibrillation Continue Coreg, Eliquis Amiodarone discontinued as above Restless leg syndrome On Requip DVT Px: Eliquis CODE STATUS Full code Disposition Home Total Time Total Time Spent Total Time Spent (In Minutes): 47 minutes Discharge Plan Discharge Items Patient Disposition: Home - Self-Care Reason For Visit: ORTHOSTATIC SYNCOPE Discharge Diagnosis: Syncope Orthostatic hypotension Fall Activity: Per Instructions section Exercise/Sports: Gradually increase as tolerated Non-emergency contact: Primary Care Provider and [employer] 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 Please call your PCPs office for appointment Follow-up with your spaghetti press helper in 2 to 3 weeks as advised. -- Your amiodarone and tamsulosin are discontinued due to low blood pressure and dizziness. Monitor your blood pressure regularly as advised. Discuss with your physician for further medication adjustments as needed. -- Start taking midodrine 2.5 mg 3 times a day as needed for blood pressure is low (systolic blood pressure less than 100) as advised --Your Lasix dose is decreased from 40 mg to 20 mg daily. And your potassium chloride dose is decreased from 20 to 10 mEq daily. Discuss with your spaghetti press helper for further adjustment of medications as needed -Continue to use Teds/compression stockings as advised. Seek immediate medical attention if your symptoms reoccur or worsen Please take all medications as instructed on discharge list below. Please call if you have any questions or problems. You can reach a [facility] hospitalist on duty at [facility] 24 hours a day by calling [phone] Pending Studies at Discharge: No Stand-Alone Forms: My [facility], Smoking Cessation Medications and DC Order Prescriptions: New midodrine 2.5 mg Tablet 2.5 mg PO TID@0800,1200,1700 PRN (Reason: Hypotention) Qty: 30 0RF Rx Instructions: If Systolic blood pressure is less than 100 furosemide [Lasix] 20 mg tablet 20 mg PO DAILY Qty: 30 0RF Continued bupropion HCl 150 mg Tablet Sustained-Release 12 Hr 150 mg PO BID ropinirole 0.5 mg Tablet 0.5 mg PO HS Rx Instructions: Take with food nitroglycerin 0.4 mg Tablet, Sublingual 0.4 mg sublingual UD PRN (Reason: Angina) ezetimibe 10 mg Tablet 10 mg PO QAM dutasteride 0.5 mg Capsule 0.5 mg PO QDL rosuvastatin 40 mg Tablet 40 mg PO QAM buspirone 5 mg tablet 5 mg PO BID famotidine 20 mg Tablet 20 mg PO DAILY PRN (Reason: Heartburn) mirtazapine 15 mg Tablet 15 mg PO HS clopidogrel 75 mg Tablet 75 mg PO QAM Qty: 30 2RF pregabalin 75 mg capsule 75 mg PO AMHS carvedilol 3.125 mg tablet 3.125 mg PO AMPM pantoprazole [Protonix] 40 mg tablet,delayed release (DR/EC) 40 mg PO QAM cyanocobalamin (vitamin B-12) 1,000 mcg Tablet, Sublingual 1,000 mcg SUBLINGUAL QAM Eliquis 5 mg tablet 5 mg PO AMHS Changed potassium chloride 10 mEq tablet,ER particles/crystals 10 meq PO QAM Qty: 0 0RF Discontinued furosemide 40 mg tablet 40 mg PO QAM amiodarone 200 mg tablet 200 mg PO QDB tamsulosin 0.4 mg capsule 0.4 mg PO QDL Discharge Orders: Discharge Order (Routine); Ordered 09/01/24 Ordered By: Juan Carlos Brink Admission Data Admit Date/Time: 08/28/24 18:31 Attending Provider: Juan Carlos Brink Admit Provider: Daniele Obando Primary Care Provider: Leon Galvan Other Providers: Daniele Obando; Ngoc Collado; Rodolfo Tabares; Castillo Del Toro; Poncho Robledo; Jayden Harley; Dread Rhodes; Jaqueline Avila; Ivana Lund; Rachelle Dickerson; Ngoc Diehl; Twin Lr; Greg Phillips; Glory Corrales; Breanna Mcnair; Alexandra Mackenzie; Maryellen Cuevas; Dustin Dudley; Rin Mijares; Tracy Lombardo
[2024-09-01 13:36] VITALS: BP 148/96
== END 2024-09-01 14:02 | disposition home health service (06) | DRG 312 ==
LOC: ED 15:16 → SUATTDRO 18:31 → EDINP 18:31 → 2N 20:43